=== PATIENT | female | born 1960 | race Caucasian/White ===

== ENCOUNTER → 2016-07-24 | Outpatient (CLI) | payer MEDICARE ==
[~2016-07-24] MED LIST: ALPR1T; ALPR1TAB2 PO; APIX5TAB PO; ASCO500C15 PO; ATEN50TA PO; ATN50T; CEPH-507 PO; CEPH500T PO; CHLO25TA22 PO; CHOL500049 PO; CIPR-225 PO; CYAN50006 SL; DILT120C53 PO; DILT240C86 PO; DOCU100C37 PO; FOLI0.4T2 PO; FURO-124 PO; GLIM4TAB PO; GLMP2T; HCT25T; MAGN400T29 PO; METF1000 PO; MTF500T; NF-CYM60C; NITR-65 PO; NITR-68 PO; OXYB10TA PO; POTA10TA10 PO; TRAM-42 PO; TRIM100T7 PO
--- OUTSIDE RECORDS SUMMARY | 2016-07-24 07:57 | XMS REPORT | Continuity of Care Document ---
Author Author [facility] Organization [facility] Address Unknown Phone Unavailable Care Team Providers Care Benefit Authorizer Name Role Phone VERONICA ROQUE MD PCP Insurance Providers Payer Name Policy Number Subscriber Name Relationship [employer] [id number] Giselle Khan 16 Self / Same As Patient Advance Directives Directive Response Recorded Date/Time Advance Directives No 05/15/16 11:49pm Health Care Power of Director Of Video Analytics No 05/15/16 11:49pm Organ Donor No 05/15/16 11:49pm Resuscitation Status Full Code 05/15/16 11:49pm Chief Complaint and Reason for Visit Chief Complaint General Problems/Pain Reason for Visit Urinary tract infection Renal insufficiency Problems Active Problems Medical Problem Onset Date Status Acute gout Unknown Acute Atrial fibrillation Unknown Acute Dehydration Unknown Acute Peripheral neuropathy Unknown Acute Renal insufficiency Unknown Acute Severe sepsis Unknown Acute Urinary tract infection Unknown Acute Medications Current Home Medications Medication Dose Units Route Directions Days/Qty Instructions Start Date Alprazolam 1 Mg 1 Mg Oral Three Times A Day 02/22/16 Cholecalciferol (Vitamin D3) 50,000 Unit 50,000 Unit Oral Every Wednesday02/22/16 Atenolol 50 Mg 50 Mg Oral Twice A Day 02/22/16 Apixaban 5 Mg 5 Mg Oral Twice A Day 02/22/16 Folic Acid 0.4 Mg 0.4 Mg Oral Bedtime 02/22/16 Glimepiride 4 Mg 4 Mg Oral Daily 02/22/16 Cyanocobalamin (Vitamin B-12) 5,000 Mcg/1 Ml 0.33 Ml Sublingual Daily 02/24/16 Ciprofloxacin Hcl 500 Mg 500 Mg Oral Twice A Day 14 05/09/16 Tramadol Hcl 50 Mg 50 Mg Oral Every 8HRS as needed for Pain 12 Diltiazem Hcl 240 Mg 240 Mg Oral Daily 05/16/16 Furosemide 40 Mg 40 Mg Oral Every Other Day 05/16/16 Magnesium Oxide 400 Mg 400 Mg Oral Daily 05/16/16 Potassium Chloride 10 Meq 10 Meq Oral Every Other Day 05/16/16 Nitrofurantoin Monohyd/M-Cryst 100 Mg 1 Tab Oral Twice A Day for Uti 20 05/16/16 Past Home Medications Medication Directions Ordered Status Glimepiride 2 Mg Tab, 05/16/08 Discontinued Metformin Hcl 500 Mg Tab, 05/16/08 Discontinued Duloxetine Hcl 60 Mg Capsule, 05/16/08 Discontinued Alprazolam 1 Mg Tablet, 05/16/08 Discontinued Atenolol 50 Mg Tab, 05/16/08 Discontinued Hydrochlorothiazide 25 Mg Tab, 05/16/08 Discontinued Chlorthalidone 25 Mg Tablet, 25 Mg Oral Daily 02/22/16 Discontinued Diltiazem Hcl 120 Mg Cap.er.24h, 120 Mg Oral Daily 02/22/16 Discontinued Metformin Hcl 1,000 Mg Tablet, 1000 Mg Oral Twice A Day 02/22/16 Discontinued Cephalexin 500 Mg Capsule, 500 Mg Oral Three Times A Day 02/25/16 Discontinued Social History Social History Problem Response Recorded Date/Time Alcohol Use Denies Use 05/15/2016 11:49pm Recreational Drug Use No 05/15/2016 11:49pm Recent Foreign Travel No 05/15/2016 11:49pm Recent Infectious Disease Exposure No 05/15/2016 11:49pm Sexually Transmitted Disease No 05/15/2016 11:49pm HIV/AIDS No 05/15/2016 11:49pm Smoking Status Never a Smoker 05/15/2016 11:49pm Recent Hopitalizations No 05/15/2016 11:49pm Sexually Transmitted Disease No 05/15/2016 11:49pm Hx Sexually Transmitted Disorders No 05/16/2008 8:46am Query Response Start Date Stop Date Smoking Status Never a Smoker Hospital Discharge Instructions No hospital discharge instructions. Plan of Care Discharge Date 05/16/16 1:58am Disposition 01 HOME, SELF-CARE Condition at Discharge Stable Instructions/Education Provided Urinary Tract Infection in Women (ED) Prescriptions See Medication Section Referrals VERONICA ROQUE MD - Primary Care Physician Additional Instructions/Education All discharge instructions reviewed with patient and/or family. Voiced understanding. CHECK WITH DR. ROQUE'S OFFICE ON 05/18/16 FOR RESULTS OF YOUR URINE CULTURE FROM [facility] TO MAKE SURE YOU ARE ON THE BEST ANTIBIOTIC. PUSH FLUIDS THRU THE WEEKEND. YOU'RE A LITTLE ON THE DRY SIDE. Functional Status No functional status results. Allergies, Adverse Reactions, Alerts Allergen Type Severity Reaction Status Last Updated Iodinated Contrast Media - IV Dye Allergy Unknown Active 05/16/16 NSAIDS (Non-Steroidal Anti-Inflammatory Drug) ([id number]) Allergy Unknown Active 05/16/16 sulfamethoxazole ([id number]) Allergy Unknown Active 05/16/16 Trimethoprim Allergy Unknown Active 05/16/16 Immunizations No immunization records. Vital Signs Acute Vital Signs Vital Response Date/Time Temperature (Fahrenheit) 98.0 degrees F (97.6 - 99.5) 05/16/2016 1:58am Temperature (Calculated Celsius) 36.69832 degrees C (36.4 - 37.5) 05/16/2016 1:58am Temperature Source Temporal 05/16/2016 1:58am Pulse Rate (adult) 64 bpm (60 - 90) 05/16/2016 1:58am Respiratory Rate 18 bpm (12 - 24) 05/16/2016 1:58am O2 Sat by Pulse Oximetry 98 % (88 - 100) 05/16/2016 1:58am Blood Pressure 138/87 mm Hg 05/16/2016 1:58am Blood Pressure Mean 103 mm Hg 05/15/2016 11:49pm Pain Numeric Pain Scale 7 05/15/2016 11:49pm Height (Feet) 5 feet 05/15/2016 11:49pm Height (Inches) 7 inches 05/15/2016 11:49pm Height (Calculated Centimeters) 170.174388 cm 05/15/2016 11:49pm Weight (Pounds) 304 pounds 05/15/2016 11:49pm Weight (Calculated Kilograms) 137.628084 kilograms 05/15/2016 11:49pm Capillary Refill Capillary Refill Less Than 3 Seconds 05/15/2016 11:49pm Height 5 ft 7 in Weight 304 lb Body Mass Index 47.6 kg/m^2 Results Laboratory Results Test Name Result Units Flags Reference Collection Date/Time Result Date/ Time Comments White Blood Count 11.2 10^3/uL H 4.3-11.0 05/09/2016 2:23pm 05/09/2016 2: 34pm Red Blood Count 4.62 10^6/uL 4.35-5.85 05/09/2016 2:23pm 05/09/2016 2: 34pm Hemoglobin 13.6 G/DL 11.5-16.0 05/09/2016 2:23pm 05/09/2016 2:34pm Hematocrit 41 % 35-52 05/09/2016 2:pm 05/09/2016 2:34pm Mean Corpuscular Volume 88 FL 80-99 05/09/2016 2:pm 05/09/2016 2: 34pm Mean Corpuscular Hemoglobin 29 PG 25-34 05/09/2016 2:23pm 05/09/2016 2: 34pm Mean Corpuscular Hemoglobin Concent 34 G/DL 32-36 05/09/2016 2:23pm 2:34pm Red Cell Distribution Width 13.4 % 10.0-14.5 05/09/2016 2:23pm 2015 2:34pm Platelet Count 361 10^3/uL 130-400 05/09/2016 2:pm 05/09/2016 2:34pm Mean Platelet Volume 9.3 FL 7.4-10.4 05/09/2016 2:23pm 05/09/2016 2: 34pm Neutrophils (%) (Auto) 74 % 42-75 05/09/2016 2:05/09/2016 2:34pm Lymphocytes (%) (Auto) 16 % 12-44 05/09/2016 2:05/09/2016 2:34pm Monocytes (%) (Auto) 7 % 0-12 05/09/2016 2:pm 05/09/2016 2:34pm Eosinophils (%) (Auto) 2 % 0-10 05/09/2016 2:pm 05/09/2016 2:34pm Basophils (%) (Auto) 0 % 0-10 05/09/2016 2:pm 05/09/2016 2:34pm Neutrophils # (Auto) 8.3 X 10^3 H 1.8-7.8 05/09/2016 2:23pm 05/09/2016 2: 34pm Lymphocytes # (Auto) 1.8 X 10^3 1.0-4.0 05/09/2016 2:23pm 05/09/2016 2: 34pm Monocytes # (Auto) 0.8 X 10^3 0.0-1.0 05/09/2016 2:23pm 05/09/2016 2: 34pm Eosinophils # (Auto) 0.3 10^3/uL 0.0-0.3 05/09/2016 2:23pm 05/09/2016 2 :34pm Basophils # (Auto) 0.0 10^3/uL 0.0-0.1 05/09/2016 2:23pm 05/09/2016 2: 34pm Urine Color YELLOW 05/09/2016 1:57pm 05/09/2016 2:18pm Urine Clarity SLIGHTLY CLOUDY 05/09/2016 1:57pm 05/09/2016 2:18pm Urine pH 5 5-9 05/09/2016 1:57pm 05/09/2016 2:18pm Urine Specific [place] 1.025 * 1.016-1.022 05/09/2016 1:57pm 2015 2:18pm Urine Protein 3+ * NEGATIVE 05/09/2016 1:57pm 05/09/2016 2:18pm Urine Glucose (UA) NEGATIVE NEGATIVE 05/09/2016 1:57pm 05/09/2016 2: 18pm Urine RBC (Auto) 5+ * NEGATIVE 05/09/2016 1:57pm 05/09/2016 2:18pm Urine Ketones 1+ * NEGATIVE 05/09/2016 1:57pm 05/09/2016 2:18pm Urine Nitrite NEGATIVE NEGATIVE 05/09/2016 1:57pm 05/09/2016 2:18pm Urine Bilirubin 1+ * NEGATIVE 05/09/2016 1:57pm 05/09/2016 2:18pm CONFIRMATORY ICTOTEST NEGATIVE Urine Urobilinogen 1 MG/DL NORMAL 05/09/2016 1:57pm 05/09/2016 2:18pm Urine Leukocyte Esterase 3+ * NEGATIVE 05/09/2016 1:57pm 05/09/2016 2: 18pm Urine RBC 50-100 /HPF * 05/09/2016 1:57pm 05/09/2016 2:18pm Urine WBC 50-100 /HPF * 05/09/2016 1:57pm 05/09/2016 2:18pm Urine Bacteria LARGE /HPF * 05/09/2016 1:57pm 05/09/2016 2:18pm Urine Squamous Epithelial Cells 25-50 /HPF * 05/09/2016 1:57pm 2015 2:18pm Urine Crystals NONE /LPF 05/09/2016 1:57pm 05/09/2016 2:18pm Urine Casts NONE /LPF 05/09/2016 1:57pm 05/09/2016 2:18pm Urine Mucus NEGATIVE /LPF 05/09/2016 1:57pm 05/09/2016 2:18pm Urine Culture Indicated YES 05/09/2016 1:57pm 05/09/2016 2:18pm Sodium Level 140 MMOL/L 135-145 05/09/2016 2:23pm 05/09/2016 2:58pm Potassium Level 4.4 MMOL/L 3.6-5.0 05/09/2016 2:23pm 05/09/2016 2:58pm Chloride Level 102 MMOL/L 98-107 05/09/2016 2:23pm 05/09/2016 2:58pm Carbon Dioxide Level 25 MMOL/L 21-32 05/09/2016 2:23pm 05/09/2016 2: 58pm Anion Gap 13 MMOL/L 5-14 05/09/2016 2:23pm 05/09/2016 2:58pm Blood Urea Nitrogen 24 MG/DL H 7-18 05/09/2016 2:23pm 05/09/2016 2:58pm Creatinine 1.23 MG/DL 0.60-1.30 05/09/2016 2:23pm 05/09/2016 2:58pm BUN/Creatinine Ratio 20 05/09/2016 2:23pm 05/09/2016 2:58pm Estimat Glomerular Filtration Rate 45 05/09/2016 2:23pm 05/09/2016 2:58pm GFR INTERPRETIVE DATA UNITS FOR ESTIMATED GFR (eGFR): mL/min/1.73 M2 REFERENCE RANGE FOR ESTIMATED GFR (eGFR) eGFR NORMAL eGFR >60 MODERATELY DECREASED eGFR 30-59 SEVERLY DECREASED eGFR 15-29 KIDNEY FAILURE <15 (OR DIALYSIS) Glucose Level 161 MG/DL H 70-105 05/09/2016 2:23pm 05/09/2016 2:58pm Calcium Level 9.9 MG/DL 8.5-10.1 05/09/2016 2:23pm 05/09/2016 2:58pm Total Bilirubin 0.7 MG/DL 0.1-1.0 05/09/2016 2:23pm 05/09/2016 2:58pm Alkaline Phosphatase 67 U/L 40-136 05/09/2016 2:23pm 05/09/2016 2:58pm Aspartate Amino Transf (AST/SGOT) 12 U/L 5-34 05/09/2016 2:23pm 2015 2:58pm Alanine Aminotransferase (ALT/SGPT) 7 U/L 0-55 05/09/2016 2:23pm 2015 2:58pm Total Protein 7.4 G/DL 6.4-8.2 05/09/2016 2:23pm 05/09/2016 2:58pm Albumin 3.4 G/DL 3.2-4.5 05/09/2016 2:23pm 05/09/2016 2:58pm Pending Laboratory Results Test Name Collection Date/Time Microbiology Results Procedure Source Result Collection Date/Time Result Date/Time Urine Culture Urine, Clean Catch NONENTEROCOCCUS (CHAINS COCCI) 05/09/2016 1 :57pm 05/11/2016 9:56am Procedures No known history of procedures. Encounters Encounter Location Arrival/Admit Date Discharge/Depart Date Attending Provider Registered Emergency Room [facility] 05/15/16 11:22pm LOUISE DURBIN DO Departed Emergency Room [facility] 05/09/16 12:40pm 3:45pm THELMA MAR Recent Diagnosis
[2016-07-24 08:19] LABS: MEAN PLATELET VOLUME 9.3 FL (7.4-10.4); RED BLOOD COUNT 4.77 10^6/uL (4.35-5.85); RED CELL DISTRIBUTION WIDTH 15.3 % (10.0-14.5); WHITE BLOOD COUNT 8.5 10^3/uL (4.3-11.0)
[2016-07-24 08:19] LABS: BILIRUBIN,URINE NEGATIVE (NEGATIVE); KETONES,URINE NEGATIVE (NEGATIVE); LEUKOCYTE ESTERASE ,URINE 3+ (NEGATIVE); NITRITE,URINE NEGATIVE (NEGATIVE); PH,URINE 6.5 (5-9); PROTEIN,URINE 1+ (NEGATIVE); UROBILINOGEN,URINE NORMAL (NORMAL)
[2016-07-24 08:30] LABS: SQUAMOUS EPITHELIAL CELL,UR 25-50 /HPF; WBC,URINE 50-100 /HPF
[2016-07-24 08:39] LABS: ALBUMIN 3.9 G/DL (3.2-4.5); CALCIUM 9.6 MG/DL (8.5-10.1); CREATININE SERUM 1.13 MG/DL (0.60-1.30); PHOSPHORUS 4.3 MG/DL (2.3-4.7); URIC ACID 8.8 MG/DL (2.6-7.2)
[2016-07-24 08:41] LABS: PROTEIN/CREATININE RATIO 0.18
[2016-07-26 13:34] LABS: CALCIUM PARA THYROID HORMONE 9.5 mg/dL (8.5-10.5)
== END ==
LOC: LAB 07:52
PROVIDERS: ATTEND Nurse Practitioner
DX: E78.5 Hyperlipidemia, unspecified (principal); I13.10 Hypertensive heart and chronic kidney disease without heart failure, with stage 1 through stage 4 chronic kidney disease, or unspecified chronic kidney disease; E11.22 Type 2 diabetes mellitus with diabetic chronic kidney disease; N18.3 Chronic kidney disease, stage 3 (moderate); R80.9 Proteinuria, unspecified; E87.6 Hypokalemia; E55.9 Vitamin D deficiency, unspecified; I48.0 Paroxysmal atrial fibrillation; E88.09 Other disorders of plasma-protein metabolism, not elsewhere classified; E66.9 Obesity, unspecified; E83.42 Hypomagnesemia
CPT/HCPCS: 36415; 80061; 80069; 81000; 82306; 82570; 83036; 83735; 83970; 84156; 84550; 85027; 87088

== ENCOUNTER 2016-10-25 10:11 | Emergency (ER) | payer MEDICARE ==
[~2016-10-25] VITALS: Ht 175.3 cm; Wt 127.0 kg
[~2016-10-25 10:11] MED LIST changes: -CEPH500T PO; -TRIM100T7 PO
[2016-10-25] MEDS ORDERED: TRIM100T7 PO (10:22)
--- NOTE | 2016-10-25 10:36 | ED GU-Female ---
General Chief Complaint: -Female Stated Complaint: CRONIC UTI Nursing Triage Note: PT STATES SHE HAS BEEN HAVING HOT AND COLD FLASHES FOR THE PAST WEEK AND A HALF. STATES SHE HAS A CHRONIC UTI. STATES BURNING AND FREQUENCY WITH URINATION Nursing Sepsis Screen: Possible Sepsis Risk History of Present Illness Time seen by provider: 10:32 Initial Comments Patient presents with this symptoms of 1-2 days brown urine and burning like fire when she urinates. She had a UTI about a year ago that resulted in sepsis and stay in the ICU. She has pertinent history of atrial fibrillation on eliquis and renal stones she is followed by Dr. Mendoza and a chief power dispatcher and Ger Mcdermott. She remarks she has chronic kidney disease stage III. Allergies and Home Medications Allergies Coded Allergies: Iodinated Contrast Media - Oral and (Unverified Allergy, Unknown, 05/16/16 ) STUDENT FINANCIAL AID MANAGER DOES NOT WANT HER TAKING NSAIDS (Non-Steroidal Anti-Inflamma (Unverified Allergy, Unknown, 05/16/16 ) STUDENT FINANCIAL AID MANAGER DOES NOT WANT HER TAKING sulfamethoxazole (Unverified Allergy, Unknown, 05/16/16) STUDENT FINANCIAL AID MANAGER DOES NOT WANT HER TAKING trimethoprim (Unverified Allergy, Unknown, 05/16/16) STUDENT FINANCIAL AID MANAGER DOES NOT WANT HER TAKING Home Medications Alprazolam 1 Mg Tablet, 1 MG PO TID, (Reported) Apixaban 5 Mg Tablet, 5 MG PO BID, (Reported) Ascorbic Acid 500 Mg Capsule.er, 500 MG PO DAILY, (Reported) Atenolol 50 Mg Tablet, 50 MG PO BID, (Reported) Cephalexin 500 Mg Tablet, 500 MG PO BID for 7 Days, #14 Ref 0 Prescribed by: REESE KIM on 10/25/16 1246 Cholecalciferol (Vitamin D3) 50,000 Unit Capsule, 50,000 UNIT PO Heard, (Reported) Cyanocobalamin (Vitamin B-12) 5,000 Mcg/1 Ml Drops, 0.33 ML SL DAILY, (Reported) Diltiazem HCl 240 Mg Cap.er.24h, 240 MG PO DAILY, (Reported) Docusate Sodium 100 Mg Capsule, 100 MG PO DAILY, (Reported) Folic Acid 0.4 Mg Tablet, 0.4 MG PO HS, (Reported) Furosemide 40 Mg Tablet, 40 MG PO every other day, (Reported) Glimepiride 4 Mg Tablet, 4 MG PO DAILY, (Reported) Glimepiride 4 Mg Tablet, 4 MG PO DAILY, (Reported) Magnesium Oxide 400 Mg Tablet, 400 MG PO DAILY, (Reported) Nitrofurantoin Monohyd/M-Cryst 100 Mg Capsule, 1 TAB PO BID, #20 Ref 0 Prescribed by: LOUISE DURBIN on 05/16/16 0149 Oxybutynin Chloride 10 Mg Tab.er.24, 10 MG PO DAILY, (Reported) Potassium Chloride 10 Meq Tablet.er, 10 MEQ PO every other day, (Reported) Tramadol HCl 50 Mg Tablet, 50 MG PO Q8H PRN for PAIN, #12 Prescribed by: THELMA MAR on 05/09/16 1535 Trimethoprim 100 Mg Tablet, 100 MG PO HS, (Reported) Constitutional: No chills, No diaphoresis, No fever, malaise EENTM: No ear pain, No eye pain, No nose pain Respiratory: No cough, No dyspnea on exertion, No short of breath, No wheezing Cardiovascular: No chest pain, No edema Gastrointestinal: No abdominal pain, No constipation, No diarrhea Genitourinary: burning, denies discharge, dysuria, frequency, denies flank pain , denies hematuria Musculoskeletal: No joint pain, No joint swelling Skin: No pruritus, No rash Psychiatric/Neurological: Denies Headache, Denies Numbness, Other (peripheral neuropathy) Past Frnyopq-Pvjstk-Wkvfub Hx Patient Social History Alcohol Use: Denies Use Recreational Drug Use: No Smoking Status: Former Smoker Recent Foreign Travel: No Contact w/Someone Who Travel: No Recent Infectious Disease Expo: No Recent Hopitalizations: No Immunizations Up To Date Tetanus Booster (TDap): More than 5yrs PED Vaccines UTD: No Seasonal Allergies Seasonal Allergies: No Surgeries HX Surgeries: Yes (RIGHT TOTAL KNEE REPLACEMENT 2009; RIGHT FOOT SURGERY 2009) Surgeries: Section, Joint Replacement, Orthopedic Respiratory Hx Respiratory Disorders: No Cardiovascular Hx Cardiac Disorders: Yes Cardiac Disorders: Atrial Fibrillation, Chronic Edema/Swelling, High Cholesterol, Hypertension Neurological Hx Neurological Disorders: Yes Neurological Disorders: Neuropathy Reproductive System Hx Reproductive Disorders: Yes Sexually Transmitted Disease: No HIV/AIDS: No Female Reproductive Disorders: Denies Genitourinary Hx Genitourinary Disorders: Yes (KIDNEY STONES--NO INTERVENTION) Genitourinary Disorders: Kidney Stones, Renal Failure, UTI-Chronic Gastrointestinal Hx Gastrointestinal Disorders: Yes (SPASTIC COLON) Musculoskeletal Hx Musculoskeletal Disorders: Yes (CHRONIC KNEE AND FOOT PAIN ) Musculoskeletal Disorders: Arthritis, Gout Endocrine Hx Endocrine Disorders: Yes (OBESITY) Endocrine Disorders: Diabetes, Non-Insulin dep HEENT HX ENT Disorders: No Loss of Vision: Denies Hearing Impairment: Denies Cancer Hx Cancer: No Psychosocial Hx Psychiatric Problems: Yes Behavioral Health Disorders: Anxiety Integumentary HX Skin/Integumentary Disorder: No Blood Transfusions Hx Blood Disorders: No Adverse Reaction to a Blood Tr: No Family Medical History Family Medial History: Abdominal aortic aneurysm 19 FATHER, , Onset:60 years & older Diabetes mellitus 19 FATHER, , Onset:Unknown FH: breast cancer 19 MOTHER, Onset:40's - 50 FH: kidney cancer 19 MOTHER, Onset:Unknown FH: uterine cancer 19 MOTHER, Onset:Unknown Myocardial infarction 19 FATHER, , Onset:50's - 60 Physical Exam Vital Signs Vital Sign - Last 12Hours 10/25/16 10:23 Temp 99.0 Pulse 107 Resp 20 B/P (MAP) 136/90 Capillary Refill : Less Than 3 Seconds General Appearance: WD/WN, no apparent distress, obese HEENT: PERRL/EOMI, pharynx normal Neck: non-tender, normal inspection Cardiovascular: no JVD, other (trace ankle edema; Irreg irreg) Respiratory: chest non-tender, lungs clear Gastrointestinal: normal bowel sounds, non tender Back: normal inspection, no CVA tenderness Extremities: no calf tenderness, normal capillary refill Neurologic/Psychiatric: alert, oriented x 3 Skin: normal color, warm/dry Lymphatic: no adenopathy Progress/Results/Core Measures Results/Orders Lab Results Laboratory Tests Test 10/25/16 10:39 10/25/16 10:57 Range/Units White Blood Count 8.3 4.3-11.0 10^3/uL Red Blood Count 4.50 4.35-5.85 10^6/uL Hemoglobin 13.7 11.5-16.0 G/DL Hematocrit 39 35-52 % Mean Corpuscular Volume 87 80-99 FL Mean Corpuscular Hemoglobin 30 25-34 PG Mean Corpuscular Hemoglobin Concent 35 32-36 G/DL Red Cell Distribution Width 14.6 H 10.0-14.5 % Platelet Count 208 130-400 10^3/uL Mean Platelet Volume 9.6 7.4-10.4 FL Neutrophils (%) (Auto) 73 42-75 % Lymphocytes (%) (Auto) 16 12-44 % Monocytes (%) (Auto) 9 0-12 % Eosinophils (%) (Auto) 1 0-10 % Basophils (%) (Auto) 0 0-10 % Neutrophils # (Auto) 6.1 1.8-7.8 X 10^3 Lymphocytes # (Auto) 1.4 1.0-4.0 X 10^3 Monocytes # (Auto) 0.8 0.0-1.0 X 10^3 Eosinophils # (Auto) 0.1 0.0-0.3 10^3/uL Basophils # (Auto) 0.0 0.0-0.1 10^3/uL Prothrombin Time 15.8 H 12.2-14.7 SEC INR Comment 1.3 0.8-1.4 Sodium Level 137 135-145 MMOL/L Potassium Level 4.4 3.6-5.0 MMOL/L Chloride Level 105 98-107 MMOL/L Carbon Dioxide Level 19 L 21-32 MMOL/L Anion Gap 13 5-14 MMOL/L Blood Urea Nitrogen 20 H 7-18 MG/DL Creatinine 1.35 H 0.60-1.30 MG/DL Estimat Glomerular Filtration Rate 40 BUN/Creatinine Ratio 15 Glucose Level 145 H 70-105 MG/DL Calcium Level 9.1 8.5-10.1 MG/DL Total Bilirubin 1.0 0.1-1.0 MG/DL Aspartate Amino Transf (AST/SGOT) 21 5-34 U/L Alanine Aminotransferase (ALT/SGPT) 13 0-55 U/L Alkaline Phosphatase 68 40-136 U/L Total Protein 7.4 6.4-8.2 G/DL Albumin 3.5 3.2-4.5 G/DL Urine Color YELLOW Urine Clarity VERY CLOUDY H Urine pH 6 5-9 Urine Specific [place] 1.010 L 1.016-1.022 Urine Protein 3+ H NEGATIVE Urine Glucose (UA) NEGATIVE NEGATIVE Urine Ketones NEGATIVE NEGATIVE Urine Nitrite POSITIVE H NEGATIVE Urine Bilirubin NEGATIVE NEGATIVE Urine Urobilinogen NORMAL NORMAL MG/DL Urine Leukocyte Esterase 3+ H NEGATIVE Urine RBC (Auto) 5+ H NEGATIVE Urine RBC NONE /HPF Urine WBC TNTC H /HPF Urine Crystals NONE /LPF Urine Bacteria LARGE H /HPF Urine Casts NONE /LPF Urine Mucus SMALL H /LPF Urine Culture Indicated YES My Orders Orders - JUDYREESE Emma Cbc With Automated Diff (10/25/16 10:36) Comprehensive Metabolic Panel (10/25/16 10:36) Protime With Inr (10/25/16 10:36) Ua Culture If Indicated (10/25/16 10:36) Saline Lock/Iv-Start (10/25/16 10:36) Urine Culture (10/25/16 10:57) Ct Abd/Pelvis Wo(Kidney Stone) (10/25/16 12:04) Ceftriaxone Injection (Rocephin Injectio (10/25/16 12:15) Medications Given in ED Current Medications Medications Dose Ordered Sig/Raoul Route Start Time Stop Time Status Last Admin Dose Admin Ceftriaxone Sodium 2000 mg/ Sodium Chloride 50 ml @ 100 mls/hr ONCE ONCE IV 10/25/16 12:15 10/25/16 12:45 DC 10/25/16 12:41 100 MLS/HR Vital Signs/I&O Vital Sign - Last 12Hours 10/25/16 10:23 Temp 99.0 Pulse 107 Resp 20 B/P (MAP) 136/90 Blood Pressure Mean: 105 Progress Note : Time: 11:07 Progress Note Clinically the patient is in no acute distress and appears to have a urinary tract infection by history. She does have a history of stones and her UA has RBCs so we will do a scan and treat her appropriately for stones. Patient states she has an allergy to Bactrim however she is on trimethoprim chronically to prevent UTIs. She has been on Macrobid in the past. Prior urine cultures were reviewed and all of them showed mixed lela and vaginal lela. No sensitivities to go off of. If this urine culture turned out the same way or the patient does not continue to improve in 2-3 days she should probably consider straight catheter. The patient says she has been on for quinolones in the past and tolerated them well but her chief power dispatcher told her she was not allowed to take for quinolones anymore. Will initiate Rocephin IM and probably outpatient Cephalexin for 7 days. Given the RBCs and perinephric fat this may need extended if the culture and sensitivity promotes Keflex as an agent. Diagnostic Imaging Diagonstic Imaging: CT Plain Films/CT/US/NM/MRI: abdomen Comments NAME: DANK MORAES MED REC#: [id number] PT STATUS: REG ER : 1960 PHYSICIAN: REESE KIM MD ADMIT DATE: 10/25/16/ER Draft Date of Exam:10/25/16 CT ABD/PELVIS WO(KIDNEY STONE) PROCEDURE: CT urinary tract, rule out kidney stone. TECHNIQUE: Multiple contiguous axial images were obtained through the abdomen and pelvis without the use of intravenous contrast. INDICATION: Hematuria. Right-sided flank pain. Comparison made to prior study from June 01, 2016. FINDINGS: The visualized lung bases appear clear. There are calcifications at the level of the mitral annulus. There is no pleural or pericardial effusion. The noncontrast appearance of liver is unremarkable. There are small stones or sludge in the gallbladder but no biliary dilatation. The spleen is unremarkable. There is a small unchanged calcification within the tail of the pancreas. Some mild thickening of the left adrenal gland which is stable. There are large stones demonstrated within both of the kidneys. When compared to the prior examination these appear unchanged. There is no evidence of a stone within the ureters. There is no hydronephrosis. There is no stone within the urinary bladder. Perinephric fat stranding is demonstrated. The small and large bowel appear normal in caliber without evidence of obstruction. Uncomplicated diverticulosis is present. The appendix appears normal. There is no abnormal bowel thickening. The urinary bladder, uterus and adnexa are unremarkable by CT. There is no free air, free fluid or evidence of abscess. No pathologically enlarged abdominal or pelvic lymph nodes are demonstrated. There are multilevel degenerative features demonstrated throughout the spine without evidence of an acute or suspicious osseous abnormality. IMPRESSION: 1. Unchanged large staghorn type calcifications and stones within the kidneys. There is no hydronephrosis or evidence of a stone within the ureters or urinary bladder. 2. Nonspecific perinephric fat stranding. Urinary tract infection cannot be excluded. 3. Cholelithiasis without biliary dilatation. 4. Uncomplicated diverticulosis. 5. 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 Dictated on workstation # [id number] Dict: 10/25/16 1239 Trans: 10/25/16 1245 [facility] [id number] Interpreted by: RASHAUN DENG MD Electronically signed by: Reviewed: Reviewed by Me Departure Impression Impression: Primary Impression: Urinary tract infection Qualified Codes: N30.01 - Acute cystitis with hematuria Disposition: HOME, SELF-CARE Condition: Stable Departure-Patient Inst. Referrals: VERONICA ATKINSON MD (PCP/Family) Primary Care Physician Patient Instructions: Urinary Tract Infection, Adult (DC) Add. Discharge Instructions: You've been diagnosed with urinary tract infection. You should take the antibiotics as prescribed twice daily by mouth. You have been given one dose of antibiotics IV today. You should follow-up with Dr. Pang or Dr. Atkinson within the next 2-3 days to follow-up on the results of the urine culture that was obtained in the ER today. If you are not getting better in 3-4 days or your symptoms are worsening or you have new symptoms he should return to the ER. All discharge instructions reviewed with patient and/or family. Voiced understanding. Scripts Cephalexin (Cephalexin) 500 Mg Tablet 500 MG PO BID for 7 Days, #14 TAB 0 Refills Prov: REESE KIM 10/25/16 Copy Copies To 1: VERONICA ATKINSON MD; FRANCI MENDOZA MD, TITUS J Oct 25, 2016 10:36
[2016-10-25 11:03] LABS: BASOPHILS % (AUTO) 0 % (0-10); EOSINOPHILS # (AUTO) 0.1 10^3/uL (0.0-0.3); EOSINOPHILS % (AUTO) 1 % (0-10); LYMPHOCYTES # (AUTO) 1.4 X 10^3 (1.0-4.0); LYMPHOCYTES % (AUTO) 16 % (12-44); MEAN CORPUSCULAR HEMOGLOBIN 30 PG (25-34); MEAN CORPUSCULAR HGB CONC 35 G/DL (32-36); MEAN CORPUSCULAR VOLUME 87 FL (80-99); MEAN PLATELET VOLUME 9.6 FL (7.4-10.4); MONOCYTES # (AUTO) 0.8 X 10^3 (0.0-1.0); MONOCYTES % (AUTO) 9 % (0-12); NEUTROPHILS # (AUTO) 6.1 X 10^3 (1.8-7.8); NEUTROPHILS % (AUTO) 73 % (42-75); PLATELET COUNT 208 10^3/uL (130-400); RED CELL DISTRIBUTION WIDTH 14.6 % (10.0-14.5); WHITE BLOOD COUNT 8.3 10^3/uL (4.3-11.0)
[2016-10-25 11:08] LABS: BILIRUBIN,URINE NEGATIVE (NEGATIVE); KETONES,URINE NEGATIVE (NEGATIVE); LEUKOCYTE ESTERASE ,URINE 3+ (NEGATIVE); NITRITE,URINE POSITIVE (NEGATIVE); PH,URINE 6 (5-9); PROTEIN,URINE 3+ (NEGATIVE); UROBILINOGEN,URINE NORMAL (NORMAL)
[2016-10-25 11:12] LABS: INR 1.3 (0.8-1.4); PROTHROMBIN TIME PATIENT 15.8 SEC (12.2-14.7)
[2016-10-25 11:22] LABS: ALBUMIN 3.5 G/DL (3.2-4.5); CALCIUM 9.1 MG/DL (8.5-10.1); CREATININE SERUM 1.35 MG/DL (0.60-1.30); POTASSIUM 4.4 MMOL/L (3.6-5.0); TOTAL PROTEIN 7.4 G/DL (6.4-8.2)
[2016-10-25 11:29] LABS: WBC,URINE TNTC /HPF
[2016-10-25] MEDS ORDERED: cefTRIAXone INJECTION 2,000 MG in NS (IVPB) 50 ML IV ONE (12:15)
[2016-10-25] MEDS ORDERED: CEPH500T PO ×2 (12:22→12:46)
--- NOTE | 2016-10-25 12:46 | Diagnostic Imaging Report ---
PROCEDURE: CT urinary tract, rule out kidney stone. TECHNIQUE: Multiple contiguous axial images were obtained through the abdomen and pelvis without the use of intravenous contrast. INDICATION: Hematuria. Right-sided flank pain. Comparison made to prior study from June 01, 2016. FINDINGS: The visualized lung bases appear clear. There are calcifications at the level of the mitral annulus. There is no pleural or pericardial effusion. The noncontrast appearance of liver is unremarkable. There are small stones or sludge in the gallbladder but no biliary dilatation. The spleen is unremarkable. There is a small unchanged calcification within the tail of the pancreas. Some mild thickening of the left adrenal gland which is stable. There are large stones demonstrated within both of the kidneys. When compared to the prior examination these appear unchanged. There is no evidence of a stone within the ureters. There is no hydronephrosis. There is no stone within the urinary bladder. Perinephric fat stranding is demonstrated. The small and large bowel appear normal in caliber without evidence of obstruction. Uncomplicated diverticulosis is present. The appendix appears normal. There is no abnormal bowel thickening. The urinary bladder, uterus and adnexa are unremarkable by CT. There is no free air, free fluid or evidence of abscess. No pathologically enlarged abdominal or pelvic lymph nodes are demonstrated. There are multilevel degenerative features demonstrated throughout the spine without evidence of an acute or suspicious osseous abnormality. IMPRESSION: 1. Unchanged large staghorn type calcifications and stones within the kidneys. There is no hydronephrosis or evidence of a stone within the ureters or urinary bladder. 2. Nonspecific perinephric fat stranding. Urinary tract infection cannot be excluded. 3. Cholelithiasis without biliary dilatation. 4. Uncomplicated diverticulosis. 5. 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 Dictated by: Dictated on workstation # [id number]
[2016-10-25 13:27] VITALS: BP 135/78
--- OUTSIDE RECORDS SUMMARY | 2016-11-29 05:53 | XMS REPORT | Continuity of Care Document ---
Author Author [facility] Organization [facility] Address Unknown Phone Unavailable Allergies Active Description Code Type Severity Reaction Onset Reported/Identified Relationship to Patient Clinical Status Yes No Known Drug Allergies [id number] Drug Allergy Unknown N/ A 05/22/2008 Yes Iodinated Contrast Media - IV Dye [id number] Drug Allergy Unknown N/A 05/16/2016 Yes Iodinated Contrast Media - Oral and [id number] Drug Allergy Unknown N/A 05/16/2016 Yes NSAIDS (Non-Steroidal Anti-Inflamma [id number] Drug Allergy Unknown N/A 05/16/2016 Yes sulfamethoxazole [id number] Drug Allergy Unknown N/A 05/16/2016 Yes trimethoprim [id number] Drug Allergy Unknown N/A 05/16/2016 Medications Problems Date Dx Coded Attending Type Code Diagnosis Diagnosed By 01/21/2016 Ot 786.2 COUGH 01/21/2016 Ot 786.05 SHORTNESS OF BREATH 01/21/2016 Ot 786.2 COUGH 01/21/2016 Ot 790.29 OTHER ABNORMAL GLUCOSE 01/21/2016 Ot 793.81 MAMMOGRAPHIC MICROCLACIFICATION 01/21/2016 Ot V16.3 FAMILY HX-BREAST MALIG 01/21/2016 Ot V76.12 OTH SCREEN MAMMO-MALIGN NEOPLASM OF JORDIN 01/21/2016 Ot 793.81 MAMMOGRAPHIC MICROCLACIFICATION 01/21/2016 TOPHER OSULLIVAN Ot 793.81 MAMMOGRAPHIC MICROCLACIFICATION 01/21/2016 TOPHER OSULLIVAN Ot V76.12 OTH SCREEN MAMMO-MALIGN NEOPLASM OF JORDIN 01/21/2016 NICOL KAY, CARIE Mugruia Ot 793.81 MAMMOGRAPHIC MICROCLACIFICATION 01/22/2016 JUDE KAY, VERONICA Barrow Ot Z12.31 ENCNTR SCREEN MAMMOGRAM FOR MALIGNANT NE 01/24/2016 VERONICA ROQUE MD Ot Z12.31 ENCNTR SCREEN MAMMOGRAM FOR MALIGNANT NE 02/12/2016 ARIAS GONZALESP Ot R00.0 TACHYCARDIA, UNSPECIFIED 02/12/2016 ARIAS GONZALES RN FLIGHT Ot R10.11 RIGHT UPPER QUADRANT PAIN 02/25/2016 VERONICA ROQUE MD, Ot A41.9 SEPSIS, UNSPECIFIED ORGANISM 02/25/2016 VERONICA ROQUE MD Ot E11.42 TYPE 2 DIABETES MELLITUS WITH DIABETIC P 02/25/2016 VERONICA ROQUE MD Ot E66.01 MORBID (SEVERE) OBESITY DUE TO EXCESS CA 02/25/2016 VERONICA ROQUE MD Ot E78.0 PURE HYPERCHOLESTEROLEMIA 02/25/2016 VERONICA ROQUE MD Ot E86.0 DEHYDRATION 02/25/2016 VERONICA ROQUE MD Ot F41.9 ANXIETY DISORDER, UNSPECIFIED 02/25/2016 VERONICA ROQUE MD Ot I10 ESSENTIAL (PRIMARY) HYPERTENSION 02/25/2016 VERONICA ROQUE MD Ot I48.91 UNSPECIFIED ATRIAL FIBRILLATION 02/25/2016 VERONICA ROQUE MD Ot K58.9 IRRITABLE BOWEL SYNDROME WITHOUT DIARRHE 02/25/2016 VERONICA ROQUE MD Ot M10.9 GOUT, UNSPECIFIED 02/25/2016 VERONICA ROQUE MD Ot N17.9 ACUTE KIDNEY FAILURE, UNSPECIFIED 02/25/2016 VERONICA ROQUE MD Ot N39.0 URINARY TRACT INFECTION, SITE NOT SPECIF 02/25/2016 VERONICA ROQUE MD Ot R65.20 SEVERE SEPSIS WITHOUT SEPTIC SHOCK 02/25/2016 VERONICA ROQUE MD Ot Z68.43 BODY MASS INDEX (BMI) 50-59.9 , ADULT 02/25/2016 VERONICA ROQUE MD Ot Z79.01 FAMILY NURSE (CURRENT) USE OF ANTICOAGULANT 02/25/2016 VERONICA ROQUE MD Ot Z87.891 PERSONAL HISTORY OF NICOTINE DEPENDENCE 02/25/2016 VERONICA ROQUE MD, Ot A41.9 SEPSIS, UNSPECIFIED ORGANISM 02/25/2016 VERONICA ROQUE MD, Ot E11.42 TYPE 2 DIABETES MELLITUS WITH DIABETIC P 02/25/2016 VERONICA ROQUE MD, Ot E66.01 MORBID (SEVERE) OBESITY DUE TO EXCESS CA 02/25/2016 VERONICA ROQUE MD Ot E78.0 PURE HYPERCHOLESTEROLEMIA 02/25/2016 VERONICA ROQUE MD Ot E86.0 DEHYDRATION 02/25/2016 VERONICA ROQUE MD Ot F41.9 ANXIETY DISORDER, UNSPECIFIED 02/25/2016 VERONICA ROQUE MD Ot I10 ESSENTIAL (PRIMARY) HYPERTENSION 02/25/2016 VERONICA ROQUE MD Ot I48.91 UNSPECIFIED ATRIAL FIBRILLATION 02/25/2016 VERONICA ROQUE MD Ot K58.9 IRRITABLE BOWEL SYNDROME WITHOUT DIARRHE 02/25/2016 VERONICA ROQUE MD Ot M10.9 GOUT, UNSPECIFIED 02/25/2016 VERONICA ROQUE MD Ot N17.9 ACUTE KIDNEY FAILURE, UNSPECIFIED 02/25/2016 VERONICA ROQUE MD Ot N39.0 URINARY TRACT INFECTION, SITE NOT SPECIF 02/25/2016 VERONICA ROQUE MD Ot R65.20 SEVERE SEPSIS WITHOUT SEPTIC SHOCK 02/25/2016 VERONICA ROQUE MD Ot Z68.43 BODY MASS INDEX (BMI) 50-59.9 , ADULT 02/25/2016 VERONICA ROQUE MD Ot Z79.01 LONG-TERM (CURRENT) USE OF ANTICOAGULANT 02/25/2016 VERONICA ROQUE MD Ot Z87.891 PERSONAL HISTORY OF NICOTINE DEPENDENCE 03/06/2016 SHAHRAM CHRISTY MD, FACCP CCDS Ot I48.2 CHRONIC ATRIAL FIBRILLATION 03/06/2016 SHAHRAM CHRISTY MD, FACCP CCDS Ot R07.89 OTHER CHEST PAIN 03/10/2016 VERONICA ROQUE MD Ot Z12.31 ENCNTR SCREEN MAMMOGRAM FOR MALIGNANT NE 03/10/2016 ARIAS GONZALES RN FLIGHT Ot D72.829 ELEVATED WHITE BLOOD CELL COUNT, UNSPECI 03/10/2016 ARIAS GONZALES RN FLIGHT Ot R00.0 TACHYCARDIA, UNSPECIFIED 03/10/2016 ARIAS GONZALES RN FLIGHT Ot R10.11 RIGHT UPPER QUADRANT PAIN 03/11/2016 JAELYN KAY FACC, SHAHRAM FACP CCDS Ot E11.9 TYPE 2 DIABETES MELLITUS WITHOUT COMPLIC 03/11/2016 SHAHRAM CHRISTY MD, FACCP CCDS Ot E66.09 OTHER OBESITY DUE TO EXCESS CALORIES 03/11/2016 SHAHRAM CHRISTY MD, FACC FACP CCDS Ot I48.2 CHRONIC ATRIAL FIBRILLATION 03/11/2016 SHAHRAM CHRISTY MD, FACC FACP CCDS Ot M79.89 OTHER SPECIFIED SOFT TISSUE DISORDERS 03/11/2016 JAELYN KAY FACC, SHAHRAM FACP CCDS Ot R06.02 SHORTNESS OF BREATH 03/11/2016 JAELYN KAY FACC, SHAHRAM FACP CCDS Ot R07.89 OTHER CHEST PAIN 03/13/2016 Ot 786.2 03/13/2016 Ot 611.8 03/13/2016 Ot V16.3 03/13/2016 Ot V76.11 03/13/2016 Ot 611.8 03/13/2016 Ot V76.12 03/13/2016 Ot 733.99 03/13/2016 Ot V72.81 03/13/2016 Ot V72.83 03/13/2016 Ot V74.8 03/13/2016 Ot 250.00 03/13/2016 Ot 701.9 03/13/2016 Ot V72.83 03/13/2016 Ot V74.8 03/13/2016 Ot 611.72 03/13/2016 Ot V76.12 03/13/2016 Ot 611.72 03/13/2016 Ot 611.72 03/13/2016 Ot V16.3 03/13/2016 Ot V64.3 03/13/2016 Ot 611.72 LUMP OR MASS IN BREAST 03/13/2016 Ot 786.2 COUGH 03/13/2016 VERONICA ROQUE MD Ot Z12.31 ENCNTR SCREEN MAMMOGRAM FOR MALIGNANT NE 03/13/2016 JAELYN KAY FACC, SHAHRAM FACP CCDS Ot E11.9 TYPE 2 DIABETES MELLITUS WITHOUT COMPLIC 03/13/2016 JAELYN KAY FACC, SHAHRAM FACP CCDS Ot E66.09 OTHER OBESITY DUE TO EXCESS CALORIES 03/13/2016 JAELYN KAY FACC, SHAHRAM FACP CCDS Ot I48.2 CHRONIC ATRIAL FIBRILLATION 03/13/2016 JAELYN KAY FACC, SHAHRAM FACP CCDS Ot M79.89 OTHER SPECIFIED SOFT TISSUE DISORDERS 03/13/2016 JAELYN KAY FACC, SHAHRAM FACP CCDS Ot R06.02 SHORTNESS OF BREATH 03/13/2016 JAELYN KAY FACC, SHAHRAM FACP CCDS Ot R07.89 OTHER CHEST PAIN 03/13/2016 VERONICA ROQUE MD Ot Z12.31 ENCNTR SCREEN MAMMOGRAM FOR MALIGNANT NE 03/13/2016 VERONICA ROQUE MD Ot Z12.31 ENCNTR SCREEN MAMMOGRAM FOR MALIGNANT NE 03/13/2016 Ot 786.2 COUGH 03/13/2016 Ot 786.05 SHORTNESS OF BREATH 03/13/2016 Ot 786.2 COUGH 03/13/2016 Ot 790.29 OTHER ABNORMAL GLUCOSE 03/13/2016 Ot 793.81 MAMMOGRAPHIC MICROCLACIFICATION 03/13/2016 Ot V16.3 FAMILY HX-BREAST MALIG 03/13/2016 Ot V76.12 OTH SCREEN MAMMO-MALIGN NEOPLASM OF JORDIN 03/13/2016 Ot 793.81 MAMMOGRAPHIC MICROCLACIFICATION 03/13/2016 TOPHER OSULLIVAN RN FLIGHT Ot 793.81 MAMMOGRAPHIC MICROCLACIFICATION 03/13/2016 TOPHER OSULLIVAN RN FLIGHT Ot V76.12 OTH SCREEN MAMMO-MALIGN NEOPLASM OF JORDIN 03/13/2016 NICOL KAY, CARIE Murguia Ot 793.81 MAMMOGRAPHIC MICROCLACIFICATION 03/13/2016 VERONICA ROQUE MD Ot Z12.31 ENCNTR SCREEN MAMMOGRAM FOR MALIGNANT NE 03/13/2016 ARIAS GONZALES RN FLIGHT Ot D72.829 ELEVATED WHITE BLOOD CELL COUNT, UNSPECI 03/13/2016 ARIAS GONZALES RN FLIGHT Ot R00.0 TACHYCARDIA, UNSPECIFIED 03/13/2016 ARIAS GONZALES RN FLIGHT Ot R10.11 RIGHT UPPER QUADRANT PAIN 03/13/2016 JAELYN KAY FACC, SHAHRAM FACP CCDS Ot E11.9 TYPE 2 DIABETES MELLITUS WITHOUT COMPLIC 03/13/2016 JAELYN KAY FACC, SHAHRAM FACP CCDS Ot E66.09 OTHER OBESITY DUE TO EXCESS CALORIES 03/13/2016 JAELYN KAY FACC, SHAHRAM FACP CCDS Ot I48.2 CHRONIC ATRIAL FIBRILLATION 03/13/2016 JAELYN KAY FACC, SHAHRAM FACP CCDS Ot M79.89 OTHER SPECIFIED SOFT TISSUE DISORDERS 03/13/2016 JAELYN KAY FACC, SHAHRAM FACP CCDS Ot R06.02 SHORTNESS OF BREATH 03/13/2016 JAELYN KAY FACC, SHAHRAM FACP CCDS Ot R07.89 OTHER CHEST PAIN 03/13/2016 JAELYN KAY FACC, SHAHRAM FACP CCDS Ot E11.9 TYPE 2 DIABETES MELLITUS WITHOUT COMPLIC 03/13/2016 JAELYN KAY FACC, ALI FACP CCDS Ot E66.09 OTHER OBESITY DUE TO EXCESS CALORIES 03/13/2016 JAELYN KAY FACC, ALI FACP CCDS Ot I48.2 CHRONIC ATRIAL FIBRILLATION 03/13/2016 JAELYN KAY FACC, ALI FACP CCDS Ot M79.89 OTHER SPECIFIED SOFT TISSUE DISORDERS 03/13/2016 JAELYN KAY FACC, ALI FACP CCDS Ot R06.02 SHORTNESS OF BREATH 03/13/2016 JAELYN KAY FACC, ALI FACP CCDS Ot R07.89 OTHER CHEST PAIN 03/13/2016 JAELYN KAY FACC, ALI FACP CCDS Ot E11.9 TYPE 2 DIABETES MELLITUS WITHOUT COMPLIC 03/13/2016 JAELYN KAY FACC, ALI FACP CCDS Ot E66.09 OTHER OBESITY DUE TO EXCESS CALORIES 03/13/2016 JAELYN KAY FACC, ALI FACP CCDS Ot I48.2 CHRONIC ATRIAL FIBRILLATION 03/13/2016 JAELYN KAY FACC, ALI FACP CCDS Ot M79.89 OTHER SPECIFIED SOFT TISSUE DISORDERS 03/13/2016 JAELYN KAY FACC, ALI FACP CCDS Ot R06.02 SHORTNESS OF BREATH 03/13/2016 JAELYN KAY FACC, ALI FACP CCDS Ot R07.89 OTHER CHEST PAIN 03/18/2016 ARIAS GONZALES RN FLIGHT Ot R00.0 TACHYCARDIA, UNSPECIFIED 03/18/2016 ARIAS GONZALES RN FLIGHT Ot R10.11 RIGHT UPPER QUADRANT PAIN 03/18/2016 Ot 786.2 COUGH 03/18/2016 Ot 786.05 SHORTNESS OF BREATH 03/18/2016 Ot 786.2 COUGH 03/18/2016 Ot 790.29 OTHER ABNORMAL GLUCOSE 03/18/2016 Ot 793.81 MAMMOGRAPHIC MICROCLACIFICATION 03/18/2016 Ot V16.3 FAMILY HX-BREAST MALIG 03/18/2016 Ot V76.12 OTH SCREEN MAMMO-MALIGN NEOPLASM OF JORDIN 03/18/2016 Ot 793.81 MAMMOGRAPHIC MICROCLACIFICATION 03/18/2016 TOPHER OSULLIVAN RN FLIGHT Ot 793.81 MAMMOGRAPHIC MICROCLACIFICATION 03/18/2016 TOPHER OSULLIVAN RN FLIGHT Ot V76.12 OTH SCREEN MAMMO-MALIGN NEOPLASM OF JORDIN 03/18/2016 NICOL KAY, CARIE Murguia Ot 793.81 MAMMOGRAPHIC MICROCLACIFICATION 03/18/2016 JUDE KAY, VERONICA Barrow Ot Z12.31 ENCNTR SCREEN MAMMOGRAM FOR MALIGNANT NE 03/18/2016 ARIAS GONZALES RN FLIGHT Ot D72.829 ELEVATED WHITE BLOOD CELL COUNT, UNSPECI 03/18/2016 CHRISTIANNANCYKYMBERLY Murguia RN FLIGHT Ot R00.0 TACHYCARDIA, UNSPECIFIED 03/18/2016 CHRISTIAN ARIAS M RN FLIGHT Ot R10.11 RIGHT UPPER QUADRANT PAIN 03/18/2016 JAELYN KAY FACC, ALI FACP CCDS Ot E11.9 TYPE 2 DIABETES MELLITUS WITHOUT COMPLIC 03/18/2016 JAELYN KAY FACC, ALI FACP CCDS Ot E66.09 OTHER OBESITY DUE TO EXCESS CALORIES 03/18/2016 JAELYN KAY FACC, ALI FACP CCDS Ot I48.2 CHRONIC ATRIAL FIBRILLATION 03/18/2016 JAELYN KAY FACC, ALI FACP CCDS Ot M79.89 OTHER SPECIFIED SOFT TISSUE DISORDERS 03/18/2016 JAELYN KAY FACC, ALI FACP CCDS Ot R06.02 SHORTNESS OF BREATH 03/18/2016 JAELYN KAY FACC, ALI FACP CCDS Ot R07.89 OTHER CHEST PAIN 03/18/2016 JAELYN KAY FACC, ALI FACP CCDS Ot E11.9 TYPE 2 DIABETES MELLITUS WITHOUT COMPLIC 03/18/2016 JAELYN KAY FACC, ALI FACP CCDS Ot E66.09 OTHER OBESITY DUE TO EXCESS CALORIES 03/18/2016 JAELYN KAY FACC, ALI FACP CCDS Ot I48.2 CHRONIC ATRIAL FIBRILLATION 03/18/2016 JAELYN KAY FACC, ALI FACP CCDS Ot M79.89 OTHER SPECIFIED SOFT TISSUE DISORDERS 03/18/2016 JAELYN KAY FACC, ALI FACP CCDS Ot R06.02 SHORTNESS OF BREATH 03/18/2016 JAELYN KAY FACC, ALI FACP CCDS Ot R07.89 OTHER CHEST PAIN 03/18/2016 JAELYN KAY FACC, ALI FACP CCDS Ot E11.9 TYPE 2 DIABETES MELLITUS WITHOUT COMPLIC 03/18/2016 JAELYN KAY FACC, ALI FACP CCDS Ot E66.09 OTHER OBESITY DUE TO EXCESS CALORIES 03/18/2016 JAELYN KAY FACC, ALI FACP CCDS Ot I48.2 CHRONIC ATRIAL FIBRILLATION 03/18/2016 JAELYN KAY FACC, SHAHRAM FACP CCDS Ot M79.89 OTHER SPECIFIED SOFT TISSUE DISORDERS 03/18/2016 JAELYN KAY FACC, ALI FACP CCDS Ot R06.02 SHORTNESS OF BREATH 03/18/2016 JAELYN KAY FACC, ALI FACP CCDS Ot R07.89 OTHER CHEST PAIN 03/19/2016 VERONICA ROQUE MD Ot Z12.31 ENCNTR SCREEN MAMMOGRAM FOR MALIGNANT NE 03/20/2016 VERONICA ROQUE MD Ot Z12.31 ENCNTR SCREEN MAMMOGRAM FOR MALIGNANT NE 03/26/2016 Ot 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 03/26/2016 Ot E66.01 MORBID (SEVERE) OBESITY DUE TO EXCESS CA 03/26/2016 Ot I48.2 CHRONIC ATRIAL FIBRILLATION 03/26/2016 Ot N18.3 CHRONIC KIDNEY DISEASE, STAGE 3 (MODERAT 03/26/2016 Ot R06.02 SHORTNESS OF BREATH 03/31/2016 ARIAS GONZALES RN FLIGHT Ot R00.0 TACHYCARDIA, UNSPECIFIED 03/31/2016 ARIAS GONZALES RN FLIGHT Ot R10.11 RIGHT UPPER QUADRANT PAIN 04/01/2016 JAELYN KAY FACC, SHAHRAM FACP CCDS Ot E11.9 TYPE 2 DIABETES MELLITUS WITHOUT COMPLIC 04/01/2016 JAELYN KAY FACC, ALI FACP CCDS Ot E66.09 OTHER OBESITY DUE TO EXCESS CALORIES 04/01/2016 JAELYN KAY FACC, SHAHRAM FACP CCDS Ot I48.2 CHRONIC ATRIAL FIBRILLATION 04/01/2016 JAELYN KAY FACC, SHAHRAM FACP CCDS Ot M79.89 OTHER SPECIFIED SOFT TISSUE DISORDERS 04/01/2016 JAELYN KAY FACC, ALI FACP CCDS Ot R06.02 SHORTNESS OF BREATH 04/01/2016 JAELYN KAY FACC, ALI FACP CCDS Ot R07.89 OTHER CHEST PAIN 04/01/2016 JAELYN KAY FACC, ALI FACP CCDS Ot E11.9 TYPE 2 DIABETES MELLITUS WITHOUT COMPLIC 04/01/2016 JAELYN KAY FACC, ALI FACP CCDS Ot E66.09 OTHER OBESITY DUE TO EXCESS CALORIES 04/01/2016 JAELYN KAY FACC, SHAHRAM FACP CCDS Ot I48.2 CHRONIC ATRIAL FIBRILLATION 04/01/2016 JAELYN KAY FACC, ALI FACP CCDS Ot M79.89 OTHER SPECIFIED SOFT TISSUE DISORDERS 04/01/2016 JAELYN KAY FACC, ALI FACP CCDS Ot R06.02 SHORTNESS OF BREATH 04/01/2016 JAELYN KAY FACC, ALI FACP CCDS Ot R07.89 OTHER CHEST PAIN 04/03/2016 JAELYN KAY FACC, ALI FACP CCDS Ot E11.9 TYPE 2 DIABETES MELLITUS WITHOUT COMPLIC 04/03/2016 JAELYN KAY FACC, ALI FACP CCDS Ot E66.09 OTHER OBESITY DUE TO EXCESS CALORIES 04/03/2016 JAELYN KAY FACC, ALI FACP CCDS Ot I48.2 CHRONIC ATRIAL FIBRILLATION 04/03/2016 JAELYN KAY FACC, ALI FACP CCDS Ot M79.89 OTHER SPECIFIED SOFT TISSUE DISORDERS 04/03/2016 JAELYN KAY FACC, ALI FACP CCDS Ot R06.02 SHORTNESS OF BREATH 04/03/2016 JAELYN KAY FACC, ALI FACP CCDS Ot R07.89 OTHER CHEST PAIN 04/14/2016 Ot 786.05 SHORTNESS OF BREATH 04/14/2016 Ot 786.2 COUGH 04/14/2016 Ot 790.29 OTHER ABNORMAL GLUCOSE 04/14/2016 Ot 793.81 MAMMOGRAPHIC MICROCLACIFICATION 04/14/2016 Ot V16.3 FAMILY HX-BREAST MALIG 04/14/2016 Ot V76.12 OTH SCREEN MAMMO-MALIGN NEOPLASM OF JORDIN 04/14/2016 Ot 793.81 MAMMOGRAPHIC MICROCLACIFICATION 04/14/2016 TOPHER OSULLIVAN RN FLIGHT Ot 793.81 MAMMOGRAPHIC MICROCLACIFICATION 04/14/2016 TOPHER OSULLIVAN RN FLIGHT Ot V76.12 OTH SCREEN MAMMO-MALIGN NEOPLASM OF JORDIN 04/14/2016 NICOL KAY, CARIE Murguia Ot 793.81 MAMMOGRAPHIC MICROCLACIFICATION 04/14/2016 JUDE KAY, VERONICA Barrow Ot Z12.31 ENCNTR SCREEN MAMMOGRAM FOR MALIGNANT NE 04/14/2016 ARIAS GONZALES RN FLIGHT Ot D72.829 ELEVATED WHITE BLOOD CELL COUNT, UNSPECI 04/14/2016 ARIAS GONZALES RN FLIGHT Ot R00.0 TACHYCARDIA, UNSPECIFIED 04/14/2016 ARIAS GONZALES RN FLIGHT Ot R10.11 RIGHT UPPER QUADRANT PAIN 04/14/2016 JAELYN KAY FACC, ALI FACP CCDS Ot E11.9 TYPE 2 DIABETES MELLITUS WITHOUT COMPLIC 04/14/2016 JAELYN KAY FACC, ALI FACP CCDS Ot E66.09 OTHER OBESITY DUE TO EXCESS CALORIES 04/14/2016 JAELYN KAY FACC, ALI FACP CCDS Ot I48.2 CHRONIC ATRIAL FIBRILLATION 04/14/2016 JAELYN KAY FACC, ALI FACP CCDS Ot M79.89 OTHER SPECIFIED SOFT TISSUE DISORDERS 04/14/2016 JAELYN KAY FACC, ALI FACP CCDS Ot R06.02 SHORTNESS OF BREATH 04/14/2016 JAELYN KAY FACC, ALI FACP CCDS Ot R07.89 OTHER CHEST PAIN 04/14/2016 JAEYLN KAY FACC, ALI FACP CCDS Ot E11.9 TYPE 2 DIABETES MELLITUS WITHOUT COMPLIC 04/14/2016 JAELYN KAY FACC, ALI FACP CCDS Ot E66.09 OTHER OBESITY DUE TO EXCESS CALORIES 04/14/2016 SHAHRAM CHRISTY MD, FACC FACP CCDS Ot I48.2 CHRONIC ATRIAL FIBRILLATION 04/14/2016 JAELYN KAY FACC, ALI FACP CCDS Ot M79.89 OTHER SPECIFIED SOFT TISSUE DISORDERS 04/14/2016 JAELYN KAY FACC, ALI FACP CCDS Ot R06.02 SHORTNESS OF BREATH 04/14/2016 JAELYN KAY FACC, ALI FACP CCDS Ot R07.89 OTHER CHEST PAIN 04/14/2016 JAELYN KAY FACC, ALI FACP CCDS Ot E11.9 TYPE 2 DIABETES MELLITUS WITHOUT COMPLIC 04/14/2016 JAELYN KAY FACC, ALI FACP CCDS Ot E66.09 OTHER OBESITY DUE TO EXCESS CALORIES 04/14/2016 JAELYN KAY FACC, ALI FACP CCDS Ot I48.2 CHRONIC ATRIAL FIBRILLATION 04/14/2016 JAELYN KAY FACC, ALI FACP CCDS Ot M79.89 OTHER SPECIFIED SOFT TISSUE DISORDERS 04/14/2016 JAELYN KAY FACC, ALI FACP CCDS Ot R06.02 SHORTNESS OF BREATH 04/14/2016 JAELYN KAY FACC, ALI FACP CCDS Ot R07.89 OTHER CHEST PAIN 04/14/2016 Ot 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 04/14/2016 Ot E66.01 MORBID (SEVERE) OBESITY DUE TO EXCESS CA 04/14/2016 Ot I48.2 CHRONIC ATRIAL FIBRILLATION 04/14/2016 Ot N18.3 CHRONIC KIDNEY DISEASE, STAGE 3 (MODERAT 04/14/2016 Ot R06.02 SHORTNESS OF BREATH 04/16/2016 Ot 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 04/16/2016 Ot E66.01 MORBID (SEVERE) OBESITY DUE TO EXCESS CA 04/16/2016 Ot I48.2 CHRONIC ATRIAL FIBRILLATION 04/16/2016 Ot N18.3 CHRONIC KIDNEY DISEASE, STAGE 3 (MODERAT 04/16/2016 Ot R06.02 SHORTNESS OF BREATH 05/05/2016 JIM PIZANO IMMUNOHEMATOLOGIST-C Ot E11.29 TYPE 2 DIABETES MELLITUS W OTH DIABETIC 05/05/2016 JIM PIZANO IMMUNOHEMATOLOGIST-C Ot E55.9 VITAMIN D DEFICIENCY, UNSPECIFIED 05/05/2016 JIM PIZANO IMMUNOHEMATOLOGIST-C Ot E66.9 OBESITY, UNSPECIFIED 05/05/2016 JIM PIZANO IMMUNOHEMATOLOGIST-C Ot E78.5 HYPERLIPIDEMIA, UNSPECIFIED 05/05/2016 JIM PIZANO IMMUNOHEMATOLOGIST-C Ot E83.42 HYPOMAGNESEMIA 05/05/2016 NEWJIM IMMUNOHEMATOLOGIST-C Ot E87.6 HYPOKALEMIA 05/05/2016 JIM PIZANO IMMUNOHEMATOLOGIST-C Ot E88.09 OTH DISORDERS OF PLASMA-PROTEIN METABOLI 05/05/2016 JIM PIZANO IMMUNOHEMATOLOGIST-C Ot 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, W S 05/05/2016 JIM PIZANO IMMUNOHEMATOLOGIST-C Ot I48.0 PAROXYSMAL ATRIAL FIBRILLATION 05/05/2016 JIM PIZANO IMMUNOHEMATOLOGIST-C Ot N18.3 CHRONIC KIDNEY DISEASE, STAGE 3 (MODERAT 05/05/2016 JIM PIZANO IMMUNOHEMATOLOGIST-C Ot R80.9 PROTEINURIA, UNSPECIFIED 05/09/2016 THELMA MARP Ot E11.9 TYPE 2 DIABETES MELLITUS WITHOUT COMPLIC 05/09/2016 THELMA MARP Ot G62.9 POLYNEUROPATHY, UNSPECIFIED 05/09/2016 THELMA MARP Ot I10 ESSENTIAL (PRIMARY) HYPERTENSION 05/09/2016 THELMA MARP Ot M25.571 PAIN IN RIGHT ANKLE AND JOINTS OF RIGHT 05/09/2016 THELMA MARP Ot N39.0 URINARY TRACT INFECTION, SITE NOT SPECIF 05/09/2016 THELMA MAR RN FLIGHT Ot Z79.84 LONG-TERM (CURRENT) USE OF ORAL HYPOGLYC 05/09/2016 THELMA MAR RN FLIGHT Ot Z79.899 OTHER FAMILY NURSE (CURRENT) DRUG THERAPY 05/09/2016 THELMA MAR RN FLIGHT Ot Z96.651 PRESENCE OF RIGHT ARTIFICIAL KNEE JOINT 05/12/2016 THELMA MARP Ot E11.9 TYPE 2 DIABETES MELLITUS WITHOUT COMPLIC 05/12/2016 THELMA MAR RN FLIGHT Ot G62.9 POLYNEUROPATHY, UNSPECIFIED 05/12/2016 ISABELA THELMA RN FLIGHT Ot I10 ESSENTIAL (PRIMARY) HYPERTENSION 05/12/2016 THELMA MAR RN FLIGHT Ot M25.571 PAIN IN RIGHT ANKLE AND JOINTS OF RIGHT 05/12/2016 THELMA MAR RN FLIGHT Ot N39.0 URINARY TRACT INFECTION, SITE NOT SPECIF 05/12/2016 THELMA MARP Ot Z79.84 LONG-TERM (CURRENT) USE OF ORAL HYPOGLYC 05/12/2016 THELMA MARP Ot Z79.899 OTHER FAMILY NURSE (CURRENT) DRUG THERAPY 05/12/2016 THELMA MAR RN FLIGHT Ot Z96.651 PRESENCE OF RIGHT ARTIFICIAL KNEE JOINT 05/16/2016 LOUISE DURBIN DO, Ot E11.9 TYPE 2 DIABETES MELLITUS WITHOUT COMPLIC 05/16/2016 LOUISE DURBIN DO, Ot F41.9 ANXIETY DISORDER, UNSPECIFIED 05/16/2016 LOUISE DURBIN DO Ot I10 ESSENTIAL (PRIMARY) HYPERTENSION 05/16/2016 LOUISE DURBIN DO, Ot N28.9 DISORDER OF KIDNEY AND URETER, UNSPECIFI 05/16/2016 LOUISE DURBIN DO Ot N39.0 URINARY TRACT INFECTION, SITE NOT SPECIF 05/16/2016 LOUISE DURBIN DO Ot R41.0 DISORIENTATION, UNSPECIFIED 05/16/2016 LOUISE DURBIN DO, Ot Z79.84 LONG-TERM (CURRENT) USE OF ORAL HYPOGLYC 05/16/2016 LOUISE DURBIN DO Ot Z79.899 OTHER FAMILY NURSE (CURRENT) DRUG THERAPY 05/18/2016 LOUISE DURBIN DO, Ot E11.9 TYPE 2 DIABETES MELLITUS WITHOUT COMPLIC 05/18/2016 LOUISE DURBIN DO, Ot F41.9 ANXIETY DISORDER, UNSPECIFIED 05/18/2016 LOUISE DURBIN DO Ot I10 ESSENTIAL (PRIMARY) HYPERTENSION 05/18/2016 LOUISE DURBIN DO Ot N28.9 DISORDER OF KIDNEY AND URETER, UNSPECIFI 05/18/2016 LOUISE DURBIN DO Ot N39.0 URINARY TRACT INFECTION, SITE NOT SPECIF 05/18/2016 LOUISE DURBIN DO Ot R41.0 DISORIENTATION, UNSPECIFIED 05/18/2016 LOUISE DURBIN DO, Ot Z79.84 LONG-TERM (CURRENT) USE OF ORAL HYPOGLYC 05/18/2016 LOUISE DURBIN DO Ot Z79.899 OTHER FAMILY NURSE (CURRENT) DRUG THERAPY 05/21/2016 LOUISE DURBIN DO Ot E11.9 TYPE 2 DIABETES MELLITUS WITHOUT COMPLIC 05/21/2016 LOUISE DURBIN DO, Ot F41.9 ANXIETY DISORDER, UNSPECIFIED 05/21/2016 LOUISE DURBIN DO Ot I10 ESSENTIAL (PRIMARY) HYPERTENSION 05/21/2016 LOUISE DURBIN DO, Ot N28.9 DISORDER OF KIDNEY AND URETER, UNSPECIFI 05/21/2016 LOUISE DURBIN DO Ot N39.0 URINARY TRACT INFECTION, SITE NOT SPECIF 05/21/2016 LOUISE DURBIN DO Ot R41.0 DISORIENTATION, UNSPECIFIED 05/21/2016 LOUISE DURBIN DO Ot Z79.84 LONG-TERM (CURRENT) USE OF ORAL HYPOGLYC 05/21/2016 LOUISE DURBIN DO Ot Z79.899 OTHER LONG-TERM (CURRENT) DRUG THERAPY 05/24/2016 SB DO JIM K Ot E11.9 TYPE 2 DIABETES MELLITUS WITHOUT COMPLIC 05/24/2016 SB DO, JIM K Ot E66.9 OBESITY, UNSPECIFIED 05/24/2016 SB DO, JIM K Ot I10 ESSENTIAL (PRIMARY) HYPERTENSION 05/24/2016 SB DO, JIM K Ot K56.41 FECAL IMPACTION 05/24/2016 SB DO, JIM K Ot K59.00 CONSTIPATION, UNSPECIFIED 05/24/2016 SB DO, JIM K Ot K64.9 UNSPECIFIED HEMORRHOIDS 05/24/2016 SB DO, JIM K Ot N20.0 CALCULUS OF KIDNEY 05/24/2016 SB DO JIM K Ot Z79.84 FAMILY NURSE (CURRENT) USE OF ORAL HYPOGLYC 05/24/2016 JIM BASURTO DO Ot Z79.899 OTHER LONG-TERM (CURRENT) DRUG THERAPY 05/26/2016 Ot 786.05 SHORTNESS OF BREATH 05/26/2016 Ot 786.2 COUGH 05/26/2016 Ot 790.29 OTHER ABNORMAL GLUCOSE 05/26/2016 Ot 793.81 MAMMOGRAPHIC MICROCLACIFICATION 05/26/2016 Ot V16.3 FAMILY HX-BREAST MALIG 05/26/2016 Ot V76.12 OTH SCREEN MAMMO-MALIGN NEOPLASM OF JORDIN 05/26/2016 Ot 793.81 MAMMOGRAPHIC MICROCLACIFICATION 05/26/2016 TOPHER OSULLIVAN RN FLIGHT Ot 793.81 MAMMOGRAPHIC MICROCLACIFICATION 05/26/2016 TOPHER OSULLIVAN RN FLIGHT Ot V76.12 OTH SCREEN MAMMO-MALIGN NEOPLASM OF JORDIN 05/26/2016 NICOL KAY, CARIE Murguia Ot 793.81 MAMMOGRAPHIC MICROCLACIFICATION 05/26/2016 JUDE KAY, VERONICA Barrow Ot Z12.31 ENCNTR SCREEN MAMMOGRAM FOR MALIGNANT NE 05/26/2016 ARIAS GONZALES RN FLIGHT Ot D72.829 ELEVATED WHITE BLOOD CELL COUNT, UNSPECI 05/26/2016 ARIAS GONZALES RN FLIGHT Ot R00.0 TACHYCARDIA, UNSPECIFIED 05/26/2016 ARIAS GONZALES RN FLIGHT Ot R10.11 RIGHT UPPER QUADRANT PAIN 05/26/2016 JAELYN KAY FACC, SHAHRAM FACP CCDS Ot E11.9 TYPE 2 DIABETES MELLITUS WITHOUT COMPLIC 05/26/2016 JAELYN KAY FACC, SHAHRAM FACP CCDS Ot E66.09 OTHER OBESITY DUE TO EXCESS CALORIES 05/26/2016 JAELYN KAY FACC, SHAHRAM FACP CCDS Ot I48.2 CHRONIC ATRIAL FIBRILLATION 05/26/2016 JAELYN KAY FACC, SHAHRAM FACP CCDS Ot M79.89 OTHER SPECIFIED SOFT TISSUE DISORDERS 05/26/2016 JAELYN KAY FACC, SHAHRAM FACP CCDS Ot R06.02 SHORTNESS OF BREATH 05/26/2016 JAELYN KAY FACC, SHAHRAM FACP CCDS Ot R07.89 OTHER CHEST PAIN 05/26/2016 JAELYN KAY FACC, SHAHRAM FACP CCDS Ot E11.9 TYPE 2 DIABETES MELLITUS WITHOUT COMPLIC 05/26/2016 JAELYN MD FACC, ALI FACP CCDS Ot E66.09 OTHER OBESITY DUE TO EXCESS CALORIES 05/26/2016 JAELYN KAY FACC, ALI FACP CCDS Ot I48.2 CHRONIC ATRIAL FIBRILLATION 05/26/2016 JAELYN KAY FACChapin, ALI FACP CCDS Ot M79.89 OTHER SPECIFIED SOFT TISSUE DISORDERS 05/26/2016 JAELYN KAY FACC, ALI FACP CCDS Ot R06.02 SHORTNESS OF BREATH 05/26/2016 JAELYN KAY FACC, ALI FACP CCDS Ot R07.89 OTHER CHEST PAIN 05/26/2016 JAELYN KAY FACC, ALI FACP CCDS Ot E11.9 TYPE 2 DIABETES MELLITUS WITHOUT COMPLIC 05/26/2016 JAELYN KAY FACC, ALI FACP CCDS Ot E66.09 OTHER OBESITY DUE TO EXCESS CALORIES 05/26/2016 JAELYN KAY FACC, ALI FACP CCDS Ot I48.2 CHRONIC ATRIAL FIBRILLATION 05/26/2016 JAELYN KAY FACC, ALI FACP CCDS Ot M79.89 OTHER SPECIFIED SOFT TISSUE DISORDERS 05/26/2016 JAELYN KAY FACC, ALI FACP CCDS Ot R06.02 SHORTNESS OF BREATH 05/26/2016 JAELYN KAY [facility], ALI FACP CCDS Ot R07.89 OTHER CHEST PAIN 05/26/2016 Ot 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 05/26/2016 Ot E66.01 MORBID (SEVERE) OBESITY DUE TO EXCESS CA 05/26/2016 Ot I48.2 CHRONIC ATRIAL FIBRILLATION 05/26/2016 Ot N18.3 CHRONIC KIDNEY DISEASE, STAGE 3 (MODERAT 05/26/2016 Ot R06.02 SHORTNESS OF BREATH 05/26/2016 JIM PIZANO IMMUNOHEMATOLOGIST-C Ot E11.29 TYPE 2 DIABETES MELLITUS W OTH DIABETIC 05/26/2016 JIM PIZANO IMMUNOHEMATOLOGIST-C Ot E55.9 VITAMIN D DEFICIENCY, UNSPECIFIED 05/26/2016 JIM PIZANO IMMUNOHEMATOLOGIST-C Ot E66.9 OBESITY, UNSPECIFIED 05/26/2016 JIM PIZANO NP-C Ot E78.5 HYPERLIPIDEMIA, UNSPECIFIED 05/26/2016 JIM PIZANO IMMUNOHEMATOLOGIST-C Ot E83.42 HYPOMAGNESEMIA 05/26/2016 JIM PIZANO IMMUNOHEMATOLOGIST-C Ot E87.6 HYPOKALEMIA 05/26/2016 JIM PIZANO IMMUNOHEMATOLOGIST-C Ot E88.09 OTH DISORDERS OF PLASMA-PROTEIN METABOLI 05/26/2016 JIM PIZANOFritz QUIROZ-Chapin Ot 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, W S 05/26/2016 JIM PIZANOFritz QUIROZ-C Ot I48.0 PAROXYSMAL ATRIAL FIBRILLATION 05/26/2016 JIM PIZANOFritz QUIROZ-C Ot N18.3 CHRONIC KIDNEY DISEASE, STAGE 3 (MODERAT 05/26/2016 JIM PIZANOFritz QUIROZ-C Ot R80.9 PROTEINURIA, UNSPECIFIED 05/26/2016 PRIETO NINA MD Ot E11.9 TYPE 2 DIABETES MELLITUS WITHOUT COMPLIC 05/26/2016 PRIETO NINA MD Ot E66.9 OBESITY, UNSPECIFIED 05/26/2016 PRIETO NINA MD Ot I10 ESSENTIAL (PRIMARY) HYPERTENSION 05/26/2016 PRIETO NINA MD Ot K62.5 HEMORRHAGE OF ANUS AND RECTUM 05/26/2016 PRIETO NINA MD Ot R19.7 DIARRHEA, UNSPECIFIED 05/26/2016 PRIETO NINA MD Ot Z79.84 FAMILY NURSE (CURRENT) USE OF ORAL HYPOGLYC 05/26/2016 PRIETO NINA MD Ot Z79.899 OTHER LONG-TERM (CURRENT) DRUG THERAPY 05/27/2016 PRIETO NINA MD Ot E11.9 TYPE 2 DIABETES MELLITUS WITHOUT COMPLIC 05/27/2016 PRIETO NINA MD Ot E66.9 OBESITY, UNSPECIFIED 05/27/2016 PRIETO NINA MD Ot I10 ESSENTIAL (PRIMARY) HYPERTENSION 05/27/2016 PRIETO NINA MD Ot K62.5 HEMORRHAGE OF ANUS AND RECTUM 05/27/2016 PRIETO NINA MD Ot R19.7 DIARRHEA, UNSPECIFIED 05/27/2016 PRIETO NINA MD Ot Z79.84 LONG-TERM (CURRENT) USE OF ORAL HYPOGLYC 05/27/2016 PRIETO NINA MD Ot Z79.899 OTHER LONG-TERM (CURRENT) DRUG THERAPY 06/02/2016 REJI KAY, FRANCI Barrow Ot N20.0 CALCULUS OF KIDNEY 06/02/2016 REJI KAY, FRANCI A Ot N39.0 URINARY TRACT INFECTION, SITE NOT SPECIF 06/23/2016 REJI KAY, FRANCI A Ot N20.0 CALCULUS OF KIDNEY 06/23/2016 REJI KAY, FRANCI A Ot N39.0 URINARY TRACT INFECTION, SITE NOT SPECIF 07/27/2016 NEW, JIM Oswald IMMUNOHEMATOLOGIST-C Ot 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 07/27/2016 NEW, JIM Oswald IMMUNOHEMATOLOGIST-C Ot E55.9 VITAMIN D DEFICIENCY, UNSPECIFIED 07/27/2016 NEW, JIM Oswald IMMUNOHEMATOLOGIST-C Ot E66.9 OBESITY, UNSPECIFIED 07/27/2016 NEW, JIM Oswald IMMUNOHEMATOLOGIST-C Ot E78.5 HYPERLIPIDEMIA, UNSPECIFIED 07/27/2016 NEW, JIM Oswald IMMUNOHEMATOLOGIST-C Ot E83.42 HYPOMAGNESEMIA 07/27/2016 NEW, JIM Oswald IMMUNOHEMATOLOGIST-C Ot E87.6 HYPOKALEMIA 07/27/2016 NEW, JIM Oswald IMMUNOHEMATOLOGIST-C Ot E88.09 OTH DISORDERS OF PLASMA-PROTEIN METABOLI 07/27/2016 NEW, JIM Oswald IMMUNOHEMATOLOGIST-C Ot 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, W S 07/27/2016 NEW, JIM Oswald IMMUNOHEMATOLOGIST-C Ot I48.0 PAROXYSMAL ATRIAL FIBRILLATION 07/27/2016 NEW, JIM Oswald IMMUNOHEMATOLOGIST-C Ot N18.3 CHRONIC KIDNEY DISEASE, STAGE 3 (MODERAT 07/27/2016 NEW, JIM Oswald IMMUNOHEMATOLOGIST-C Ot R80.9 PROTEINURIA, UNSPECIFIED 08/14/2016 NEW, JIM Oswald IMMUNOHEMATOLOGIST-C Ot 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 08/14/2016 NEW, JIM Oswald IMMUNOHEMATOLOGIST-C Ot E55.9 VITAMIN D DEFICIENCY, UNSPECIFIED 08/14/2016 NEW, JIM Oswald IMMUNOHEMATOLOGIST-C Ot E66.9 OBESITY, UNSPECIFIED 08/14/2016 NEW, JIM GFritz IMMUNOHEMATOLOGIST-C Ot E78.5 HYPERLIPIDEMIA, UNSPECIFIED 08/14/2016 NEW, JIM Oswald IMMUNOHEMATOLOGIST-C Ot E83.42 HYPOMAGNESEMIA 08/14/2016 NEW, JIM Oswald IMMUNOHEMATOLOGIST-C Ot E87.6 HYPOKALEMIA 08/14/2016 JERICAJIMFritz IMMUNOHEMATOLOGIST-C Ot E88.09 OTH DISORDERS OF PLASMA-PROTEIN METABOLI 08/14/2016 JIM PIZANOFritz QUIROZ-C Ot 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, W S 08/14/2016 JERICAJIMFritz QUIROZ-C Ot I48.0 PAROXYSMAL ATRIAL FIBRILLATION 08/14/2016 JERICA JIM GarciaFritz IMMUNOHEMATOLOGIST-C Ot N18.3 CHRONIC KIDNEY DISEASE, STAGE 3 (MODERAT 08/14/2016 JERICAJIMFritz IMMUNOHEMATOLOGIST-C Ot R80.9 PROTEINURIA, UNSPECIFIED 10/25/2016 REESE KIM MD Ot E11.9 TYPE 2 DIABETES MELLITUS WITHOUT COMPLIC 10/25/2016 REESE KIM MD Ot I12.9 HYPERTENSIVE CHRONIC KIDNEY DISEASE W ST 10/25/2016 REESE KIM MD Ot K57.30 DVRTCLOS OF LG INT W/O PERFORATION OR AB 10/25/2016 REESE KIM MD Ot K80.20 CALCULUS OF GALLBLADDER W/O CHOLECYSTITI 10/25/2016 REESE KIM MD Ot M47.816 SPONDYLOSIS W/O MYELOPATHY OR RADICULOPA 10/25/2016 REESE KIM MD Ot N18.3 CHRONIC KIDNEY DISEASE, STAGE 3 (MODERAT 10/25/2016 REESE KIM MD Ot N20.0 CALCULUS OF KIDNEY 10/25/2016 REESE KIM MD Ot N30.91 CYSTITIS, UNSPECIFIED WITH HEMATURIA 10/25/2016 REESE KIM MD Ot N39.0 URINARY TRACT INFECTION, SITE NOT SPECIF 10/25/2016 REESE KIM MD Ot Z79.01 FAMILY NURSE (CURRENT) USE OF ANTICOAGULANT 10/25/2016 REESE KIM MD Ot Z79.84 LONG-TERM (CURRENT) USE OF ORAL HYPOGLYC 10/25/2016 REESE KIM MD Ot Z79.899 OTHER FAMILY NURSE (CURRENT) DRUG THERAPY 11/04/2016 REESE KIM MD Ot E11.9 TYPE 2 DIABETES MELLITUS WITHOUT COMPLIC 11/04/2016 REESE KIM MD Ot G43.909 MIGRAINE, UNSP, NOT INTRACTABLE, WITHOUT 11/04/2016 REESE KIM MD Ot H81.10 BENIGN PAROXYSMAL VERTIGO, UNSPECIFIED E 11/04/2016 JUDY KAY, REESE Carter Ot Z79.84 FAMILY NURSE (CURRENT) USE OF ORAL HYPOGLYC Procedures Results Test Result Range Complete blood count (CBC) with automated white blood cell (WBC) differential - 02/22/16 19:17 Blood leukocytes automated count (number/volume) 15.6 10*3/ uL 4.3-11.0 Blood erythrocytes automated count (number/volume) 4.31 10*6 /uL 4.35-5.85 Venous blood hemoglobin measurement (mass/volume) 13.6 g/dL 11.5-16.0 Blood hematocrit (volume fraction) 40 % 35-52 Automated erythrocyte mean corpuscular volume 93 [foz_us] 80-99 Automated erythrocyte mean corpuscular hemoglobin (mass per erythrocyte) 32 pg 25-34 Automated erythrocyte mean corpuscular hemoglobin concentration measurement ( mass/volume) 34 g/dL 32-36 Automated erythrocyte distribution width ratio 13.8 % 10.0-14.5 Automated blood platelet count (count/volume) 253 10*3/uL 130-400 Automated blood platelet mean volume measurement 9.7 [foz_us ] 7.4-10.4 Automated blood neutrophils/100 leukocytes 76 % 42-75 Automated blood lymphocytes/100 leukocytes 14 % 12-44 Blood monocytes/100 leukocytes 10 % 0-12 Automated blood eosinophils/100 leukocytes 1 % 0-10 Automated blood basophils/100 leukocytes 0 % 0-10 Blood neutrophils automated count (number/volume) 11.8 10*3 1.8-7.8 Blood lymphocytes automated count (number/volume) 2.2 10*3 1.0-4.0 Blood monocytes automated count (number/volume) 1.6 10*3 0.0-1.0 Automated eosinophil count 0.1 10*3/uL 0.0-0.3 Automated blood basophil count (count/volume) 0.0 10*3/uL 0.0-0.1 PT panel in platelet poor plasma by coagulation assay - 02/22/16 19:17 Prothrombin time (PT) in platelet poor plasma by coagulation assay 19.4 s 12.2-14.7 INR in platelet poor plasma or blood by coagulation assay 1.7 0.8-1.4 Activated partial thromboplastin time (aPTT) in platelet poor plasma bycoagulation assay - 02/22/16 19:17 Activated partial thromboplastin time (aPTT) in platelet poor plasma bycoagulation assay 43 s 24-35 Fibrin D-dimer FEU measurement in platelet poor plasma (mass/volume) - 19:17 Fibrin D-dimer FEU measurement in platelet poor plasma (mass/volume) 1.11 ug/mL 0.00-0.49 Blood manual differential performed detection - 02/22/16 19:17 Blood monocytes/100 leukocytes 5 % NRG Manual blood segmented neutrophils/100 leukocytes 76 % NRG Blood band neutrophils/100 leukocytes 1 % NRG Manual blood lymphocytes/100 leukocytes 17 % NRG Manual eosinophils/100 leukocytes in nose 1 % NRG Manual blood basophils/100 leukocytes 0 % NRG Blood erythrocyte morphology finding identification NORMAL NRG Erythrocyte sedimentation rate by westergren method - 02/22/16 19:17 Erythrocyte sedimentation rate by westergren method 93 mm 0-30 Comprehensive metabolic panel - 02/22/16 19:17 Serum or plasma sodium measurement (moles/volume) 138 mmol/ L 135-145 Serum or plasma potassium measurement (moles/volume) 3.7 mmol/L 3.6-5.0 Serum or plasma chloride measurement (moles/volume) 100 mmol /L 98-107 Carbon dioxide 27 mmol/L 21-32 Serum or plasma anion gap determination (moles/volume) 11 mmol/L 5-14 Serum or plasma urea nitrogen measurement (mass/volume) 27 mg/dL 7-18 Serum or plasma creatinine measurement (mass/volume) 1.51 mg /dL 0.60-1.30 Serum or plasma urea nitrogen/creatinine mass ratio 18 NRG Serum or plasma creatinine measurement with calculation of estimated glomerular filtration rate 36 NRG Serum or plasma glucose measurement (mass/volume) 178 mg/dL 70-105 Serum or plasma calcium measurement (mass/volume) 8.8 mg/dL 8.5-10.1 Serum or plasma total bilirubin measurement (mass/volume) 1.6 mg/dL 0.1-1.0 Serum or plasma alkaline phosphatase measurement (enzymatic activity/volume) 56 U/L 40-136 Serum or plasma aspartate aminotransferase measurement (enzymatic activity/ volume) 10 U/L 5-34 Serum or plasma alanine aminotransferase measurement (enzymatic activity/volume ) 6 U/L 0-55 Serum or plasma protein measurement (mass/volume) 7.0 g/dL 6.4-8.2 Serum or plasma albumin measurement (mass/volume) 3.2 g/dL 3.2-4.5 Serum or plasma uric acid measurement (mass/volume) - 02/22/16 19:17 Serum or plasma uric acid measurement (mass/volume) 10.4 mg/ dL 2.6-7.2 Magnesium - 02/22/16 19:17 Magnesium 1.3 mg/dL 1.8-2.4 Complete urinalysis with reflex to culture - 02/22/16 21:35 Urine color determination YELLOW NRG Urine clarity determination CLEAR NRG Urine pH measurement by test strip 5 5- 9 Specific gravity of urine by test strip 1.015 1.016-1.022 Urine protein assay by test strip, semi-quantitative 2+ NEGATIVE Urine glucose detection by automated test strip NEGATIVE NEGATIVE Erythrocytes detection in urine sediment by light microscopy 2+ NEGATIVE Urine ketones detection by automated test strip NEGATIVE NEGATIVE Urine nitrite detection by test strip NEGATIVE NEGATIVE Urine total bilirubin detection by test strip 1+ NEGATIVE Urine urobilinogen measurement by automated test strip (mass/volume) 1 mg/dL NORMAL Urine leukocyte esterase detection by dipstick 3+ NEGATIVE Automated urine sediment erythrocyte count by microscopy (number/high power field) NONE NRG Automated urine sediment leukocyte count by microscopy (number/high power field ) > [HPF] NRG Bacteria detection in urine sediment by light microscopy FEW NRG Squamous epithelial cells detection in urine sediment by light microscopy 5-10 NRG Crystals detection in urine sediment by light microscopy NONE NRG Casts detection in urine sediment by light microscopy PRESENT NRG Mucus detection in urine sediment by light microscopy NEGATIVE NRG Complete urinalysis with reflex to culture YES NRG Granular casts detection in urine sediment by light microscopy 10-25 NRG Bacterial urine culture - 02/22/16 21:35 URINE CULTURE RESULTS <10,000/ML NRG Blood lactic acid measurement (moles/volume) - 02/22/16 21:50 Blood lactic acid measurement (moles/volume) 2.6 mmol/L 0.5-2.0 Bacterial blood culture - 02/22/16 21:50 Bacterial blood culture NG NRG Bacterial blood culture - 02/22/16 22:02 Bacterial blood culture NG NRG Serum or plasma lactate measurement (moles/volume) - 02/22/16 23:35 Serum or plasma lactate measurement (moles/volume) 1.8 mmol/ L 0.5-2.0 Methicillin resistant Staphylococcus aureus (MRSA) screening culture - 00:50 Methicillin resistant Staphylococcus aureus (MRSA) screening culture NEG NRG Capillary blood glucose measurement by glucometer (mass/volume) - 02/23/16 03: 50 Capillary blood glucose measurement by glucometer (mass/volume) 143 mg/dL 70-110 Complete blood count (CBC) with automated white blood cell (WBC) differential - 02/23/16 04:20 Blood leukocytes automated count (number/volume) 10.4 10*3/ uL 4.3-11.0 Blood erythrocytes automated count (number/volume) 3.60 10*6 /uL 4.35-5.85 Venous blood hemoglobin measurement (mass/volume) 11.5 g/dL 11.5-16.0 Blood hematocrit (volume fraction) 34 % 35-52 Automated erythrocyte mean corpuscular volume 95 [foz_us] 80-99 Automated erythrocyte mean corpuscular hemoglobin (mass per erythrocyte) 32 pg 25-34 Automated erythrocyte mean corpuscular hemoglobin concentration measurement ( mass/volume) 34 g/dL 32-36 Automated erythrocyte distribution width ratio 13.7 % 10.0-14.5 Automated blood platelet count (count/volume) 187 10*3/uL 130-400 Automated blood platelet mean volume measurement 10.1 [foz_ us] 7.4-10.4 Automated blood neutrophils/100 leukocytes 79 % 42-75 Automated blood lymphocytes/100 leukocytes 13 % 12-44 Blood monocytes/100 leukocytes 7 % 0-12 Automated blood eosinophils/100 leukocytes 1 % 0-10 Automated blood basophils/100 leukocytes 0 % 0-10 Blood neutrophils automated count (number/volume) 8.3 10*3 1.8-7.8 Blood lymphocytes automated count (number/volume) 1.3 10*3 1.0-4.0 Blood monocytes automated count (number/volume) 0.8 10*3 0.0-1.0 Automated eosinophil count 0.1 10*3/uL 0.0-0.3 Automated blood basophil count (count/volume) 0.0 10*3/uL 0.0-0.1 PT panel in platelet poor plasma by coagulation assay - 02/23/16 04:20 Prothrombin time (PT) in platelet poor plasma by coagulation assay 19.4 s 12.2-14.7 INR in platelet poor plasma or blood by coagulation assay 1.7 0.8-1.4 Activated partial thromboplastin time (aPTT) in platelet poor plasma bycoagulation assay - 02/23/16 04:20 Activated partial thromboplastin time (aPTT) in platelet poor plasma bycoagulation assay 46 s 24-35 Comprehensive metabolic panel - 02/23/16 04:20 Serum or plasma sodium measurement (moles/volume) 139 mmol/ L 135-145 Serum or plasma potassium measurement (moles/volume) 3.9 mmol/L 3.6-5.0 Serum or plasma chloride measurement (moles/volume) 105 mmol /L 98-107 Carbon dioxide 21 mmol/L 21-32 Serum or plasma anion gap determination (moles/volume) 13 mmol/L 5-14 Serum or plasma urea nitrogen measurement (mass/volume) 34 mg/dL 7-18 Serum or plasma creatinine measurement (mass/volume) 2.26 mg /dL 0.60-1.30 Serum or plasma urea nitrogen/creatinine mass ratio 15 NRG Serum or plasma creatinine measurement with calculation of estimated glomerular filtration rate 22 NRG Serum or plasma glucose measurement (mass/volume) 167 mg/dL 70-105 Serum or plasma calcium measurement (mass/volume) 8.0 mg/dL 8.5-10.1 Serum or plasma total bilirubin measurement (mass/volume) 1.2 mg/dL 0.1-1.0 Serum or plasma alkaline phosphatase measurement (enzymatic activity/volume) 49 U/L 40-136 Serum or plasma aspartate aminotransferase measurement (enzymatic activity/ volume) 12 U/L 5-34 Serum or plasma alanine aminotransferase measurement (enzymatic activity/volume ) 7 U/L 0-55 Serum or plasma protein measurement (mass/volume) 5.9 g/dL 6.4-8.2 Serum or plasma albumin measurement (mass/volume) 2.7 g/dL 3.2-4.5 Capillary blood glucose measurement by glucometer (mass/volume) - 02/23/16 10: 37 Capillary blood glucose measurement by glucometer (mass/volume) 187 mg/dL 70-110 Capillary blood glucose measurement by glucometer (mass/volume) - 02/23/16 14: 17 Capillary blood glucose measurement by glucometer (mass/volume) 231 mg/dL 70-110 Capillary blood glucose measurement by glucometer (mass/volume) - 02/23/16 22: 18 Capillary blood glucose measurement by glucometer (mass/volume) 220 mg/dL 70-110 Complete blood count (CBC) with automated white blood cell (WBC) differential - 02/24/16 04:25 Blood leukocytes automated count (number/volume) 9.2 10*3/ uL 4.3-11.0 Blood erythrocytes automated count (number/volume) 3.46 10*6 /uL 4.35-5.85 Venous blood hemoglobin measurement (mass/volume) 11.0 g/dL 11.5-16.0 Blood hematocrit (volume fraction) 33 % 35-52 Automated erythrocyte mean corpuscular volume 96 [foz_us] 80-99 Automated erythrocyte mean corpuscular hemoglobin (mass per erythrocyte) 32 pg 25-34 Automated erythrocyte mean corpuscular hemoglobin concentration measurement ( mass/volume) 33 g/dL 32-36 Automated erythrocyte distribution width ratio 13.1 % 10.0-14.5 Automated blood platelet count (count/volume) 168 10*3/uL 130-400 Automated blood platelet mean volume measurement 9.8 [foz_us ] 7.4-10.4 Automated blood neutrophils/100 leukocytes 74 % 42-75 Automated blood lymphocytes/100 leukocytes 19 % 12-44 Blood monocytes/100 leukocytes 7 % 0-12 Automated blood eosinophils/100 leukocytes 0 % 0-10 Automated blood basophils/100 leukocytes 0 % 0-10 Blood neutrophils automated count (number/volume) 6.8 10*3 1.8-7.8 Blood lymphocytes automated count (number/volume) 1.7 10*3 1.0-4.0 Blood monocytes automated count (number/volume) 0.6 10*3 0.0-1.0 Automated eosinophil count 0.0 10*3/uL 0.0-0.3 Automated blood basophil count (count/volume) 0.0 10*3/uL 0.0-0.1 PT panel in platelet poor plasma by coagulation assay - 02/24/16 04:25 Prothrombin time (PT) in platelet poor plasma by coagulation assay 16.9 s 12.2-14.7 INR in platelet poor plasma or blood by coagulation assay 1.4 0.8-1.4 Activated partial thromboplastin time (aPTT) in platelet poor plasma bycoagulation assay - 02/24/16 04:25 Activated partial thromboplastin time (aPTT) in platelet poor plasma bycoagulation assay 27 s 24-35 Comprehensive metabolic panel - 02/24/16 04:25 Serum or plasma sodium measurement (moles/volume) 136 mmol/ L 135-145 Serum or plasma potassium measurement (moles/volume) 3.7 mmol/L 3.6-5.0 Serum or plasma chloride measurement (moles/volume) 107 mmol /L 98-107 Carbon dioxide 19 mmol/L 21-32 Serum or plasma anion gap determination (moles/volume) 10 mmol/L 5-14 Serum or plasma urea nitrogen measurement (mass/volume) 45 mg/dL 7-18 Serum or plasma creatinine measurement (mass/volume) 1.34 mg /dL 0.60-1.30 Serum or plasma urea nitrogen/creatinine mass ratio 34 NRG Serum or plasma creatinine measurement with calculation of estimated glomerular filtration rate 41 NRG Serum or plasma glucose measurement (mass/volume) 193 mg/dL 70-105 Serum or plasma calcium measurement (mass/volume) 7.4 mg/dL 8.5-10.1 Serum or plasma total bilirubin measurement (mass/volume) 0.3 mg/dL 0.1-1.0 Serum or plasma alkaline phosphatase measurement (enzymatic activity/volume) 43 U/L 40-136 Serum or plasma aspartate aminotransferase measurement (enzymatic activity/ volume) 11 U/L 5-34 Serum or plasma alanine aminotransferase measurement (enzymatic activity/volume ) 8 U/L 0-55 Serum or plasma protein measurement (mass/volume) 5.6 g/dL 6.4-8.2 Serum or plasma albumin measurement (mass/volume) 2.6 g/dL 3.2-4.5 Capillary blood glucose measurement by glucometer (mass/volume) - 02/24/16 10: 34 Capillary blood glucose measurement by glucometer (mass/volume) 200 mg/dL 70-110 Capillary blood glucose measurement by glucometer (mass/volume) - 02/24/16 15: 48 Capillary blood glucose measurement by glucometer (mass/volume) 163 mg/dL 70-110 Capillary blood glucose measurement by glucometer (mass/volume) - 02/24/16 21: 05 Capillary blood glucose measurement by glucometer (mass/volume) 195 mg/dL 70-110 Complete blood count (CBC) with automated white blood cell (WBC) differential - 02/25/16 03:55 Blood leukocytes automated count (number/volume) 9.1 10*3/ uL 4.3-11.0 Blood erythrocytes automated count (number/volume) 3.79 10*6 /uL 4.35-5.85 Venous blood hemoglobin measurement (mass/volume) 11.8 g/dL 11.5-16.0 Blood hematocrit (volume fraction) 35 % 35-52 Automated erythrocyte mean corpuscular volume 93 [foz_us] 80-99 Automated erythrocyte mean corpuscular hemoglobin (mass per erythrocyte) 31 pg 25-34 Automated erythrocyte mean corpuscular hemoglobin concentration measurement ( mass/volume) 33 g/dL 32-36 Automated erythrocyte distribution width ratio 13.2 % 10.0-14.5 Automated blood platelet count (count/volume) 227 10*3/uL 130-400 Automated blood platelet mean volume measurement 10.2 [foz_ us] 7.4-10.4 Automated blood neutrophils/100 leukocytes 84 % 42-75 Automated blood lymphocytes/100 leukocytes 11 % 12-44 Blood monocytes/100 leukocytes 4 % 0-12 Automated blood eosinophils/100 leukocytes 0 % 0-10 Automated blood basophils/100 leukocytes 0 % 0-10 Blood neutrophils automated count (number/volume) 7.7 10*3 1.8-7.8 Blood lymphocytes automated count (number/volume) 1.0 10*3 1.0-4.0 Blood monocytes automated count (number/volume) 0.4 10*3 0.0-1.0 Automated eosinophil count 0.0 10*3/uL 0.0-0.3 Automated blood basophil count (count/volume) 0.0 10*3/uL 0.0-0.1 PT panel in platelet poor plasma by coagulation assay - 02/25/16 03:55 Prothrombin time (PT) in platelet poor plasma by coagulation assay 15.7 s 12.2-14.7 INR in platelet poor plasma or blood by coagulation assay 1.3 0.8-1.4 Activated partial thromboplastin time (aPTT) in platelet poor plasma bycoagulation assay - 02/25/16 03:55 Activated partial thromboplastin time (aPTT) in platelet poor plasma bycoagulation assay 37 s 24-35 Comprehensive metabolic panel - 02/25/16 03:55 Serum or plasma sodium measurement (moles/volume) 141 mmol/ L 135-145 Serum or plasma potassium measurement (moles/volume) 3.5 mmol/L 3.6-5.0 Serum or plasma chloride measurement (moles/volume) 108 mmol /L 98-107 Carbon dioxide 24 mmol/L 21-32 Serum or plasma anion gap determination (moles/volume) 9 mmol/L 5-14 Serum or plasma urea nitrogen measurement (mass/volume) 37 mg/dL 7-18 Serum or plasma creatinine measurement (mass/volume) 0.91 mg /dL 0.60-1.30 Serum or plasma urea nitrogen/creatinine mass ratio 41 NRG Serum or plasma creatinine measurement with calculation of estimated glomerular filtration rate > NRG Serum or plasma glucose measurement (mass/volume) 167 mg/dL 70-105 Serum or plasma calcium measurement (mass/volume) 8.1 mg/dL 8.5-10.1 Serum or plasma total bilirubin measurement (mass/volume) 0.2 mg/dL 0.1-1.0 Serum or plasma alkaline phosphatase measurement (enzymatic activity/volume) 45 U/L 40-136 Serum or plasma aspartate aminotransferase measurement (enzymatic activity/ volume) 15 U/L 5-34 Serum or plasma alanine aminotransferase measurement (enzymatic activity/volume ) 11 U/L 0-55 Serum or plasma protein measurement (mass/volume) 6.1 g/dL 6.4-8.2 Serum or plasma albumin measurement (mass/volume) 2.8 g/dL 3.2-4.5 Serum or plasma phosphate measurement (mass/volume) - 02/25/16 03:55 Serum or plasma phosphate measurement (mass/volume) 3.1 mg/ dL 2.3-4.7 Magnesium - 02/25/16 03:55 Magnesium 1.6 mg/dL 1.8-2.4 Complete urinalysis with reflex to culture - 05/09/16 13:57 Urine color determination YELLOW NRG Urine clarity determination SLIGHTLY CLOUDY NRG Urine pH measurement by test strip 5 5- 9 Specific gravity of urine by test strip 1.025 1.016-1.022 Urine protein assay by test strip, semi-quantitative 3+ NEGATIVE Urine glucose detection by automated test strip NEGATIVE NEGATIVE Erythrocytes detection in urine sediment by light microscopy 5+ NEGATIVE Urine ketones detection by automated test strip 1+ NEGATIVE Urine nitrite detection by test strip NEGATIVE NEGATIVE Urine total bilirubin detection by test strip 1+ NEGATIVE Urine urobilinogen measurement by automated test strip (mass/volume) 1 mg/dL NORMAL Urine leukocyte esterase detection by dipstick 3+ NEGATIVE Automated urine sediment erythrocyte count by microscopy (number/high power field) [HPF] NRG Automated urine sediment leukocyte count by microscopy (number/high power field ) [HPF] NRG Bacteria detection in urine sediment by light microscopy LARGE NRG Squamous epithelial cells detection in urine sediment by light microscopy 25-50 NRG Crystals detection in urine sediment by light microscopy NONE NRG Casts detection in urine sediment by light microscopy NONE NRG Mucus detection in urine sediment by light microscopy NEGATIVE NRG Complete urinalysis with reflex to culture YES NRG Bacterial urine culture - 05/09/16 13:57 Bacterial urine culture [id number] NRG COLONY COUNT 10,000/ML - 100,000/ML NRG FREE TEXT ENTRY 2 AT LEAST 3 OTHER GRAM POSITIVE ISOLATES NRG Complete blood count (CBC) with automated white blood cell (WBC) differential - 05/09/16 14:23 Blood leukocytes automated count (number/volume) 11.2 10*3/ uL 4.3-11.0 Blood erythrocytes automated count (number/volume) 4.62 10*6 /uL 4.35-5.85 Venous blood hemoglobin measurement (mass/volume) 13.6 g/dL 11.5-16.0 Blood hematocrit (volume fraction) 41 % 35-52 Automated erythrocyte mean corpuscular volume 88 [foz_us] 80-99 Automated erythrocyte mean corpuscular hemoglobin (mass per erythrocyte) 29 pg 25-34 Automated erythrocyte mean corpuscular hemoglobin concentration measurement ( mass/volume) 34 g/dL 32-36 Automated erythrocyte distribution width ratio 13.4 % 10.0-14.5 Automated blood platelet count (count/volume) 361 10*3/uL 130-400 Automated blood platelet mean volume measurement 9.3 [foz_us ] 7.4-10.4 Automated blood neutrophils/100 leukocytes 74 % 42-75 Automated blood lymphocytes/100 leukocytes 16 % 12-44 Blood monocytes/100 leukocytes 7 % 0-12 Automated blood eosinophils/100 leukocytes 2 % 0-10 Automated blood basophils/100 leukocytes 0 % 0-10 Blood neutrophils automated count (number/volume) 8.3 10*3 1.8-7.8 Blood lymphocytes automated count (number/volume) 1.8 10*3 1.0-4.0 Blood monocytes automated count (number/volume) 0.8 10*3 0.0-1.0 Automated eosinophil count 0.3 10*3/uL 0.0-0.3 Automated blood basophil count (count/volume) 0.0 10*3/uL 0.0-0.1 Comprehensive metabolic panel - 05/09/16 14:23 Serum or plasma sodium measurement (moles/volume) 140 mmol/ L 135-145 Serum or plasma potassium measurement (moles/volume) 4.4 mmol/L 3.6-5.0 Serum or plasma chloride measurement (moles/volume) 102 mmol /L 98-107 Carbon dioxide 25 mmol/L 21-32 Serum or plasma anion gap determination (moles/volume) 13 mmol/L 5-14 Serum or plasma urea nitrogen measurement (mass/volume) 24 mg/dL 7-18 Serum or plasma creatinine measurement (mass/volume) 1.23 mg /dL 0.60-1.30 Serum or plasma urea nitrogen/creatinine mass ratio 20 NRG Serum or plasma creatinine measurement with calculation of estimated glomerular filtration rate 45 NRG Serum or plasma glucose measurement (mass/volume) 161 mg/dL 70-105 Serum or plasma calcium measurement (mass/volume) 9.9 mg/dL 8.5-10.1 Serum or plasma total bilirubin measurement (mass/volume) 0.7 mg/dL 0.1-1.0 Serum or plasma alkaline phosphatase measurement (enzymatic activity/volume) 67 U/L 40-136 Serum or plasma aspartate aminotransferase measurement (enzymatic activity/ volume) 12 U/L 5-34 Serum or plasma alanine aminotransferase measurement (enzymatic activity/volume ) 7 U/L 0-55 Serum or plasma protein measurement (mass/volume) 7.4 g/dL 6.4-8.2 Serum or plasma albumin measurement (mass/volume) 3.4 g/dL 3.2-4.5 Complete blood count (CBC) with automated white blood cell (WBC) differential - 05/16/16 00:35 Blood leukocytes automated count (number/volume) 10.0 10*3/ uL 4.3-11.0 Blood erythrocytes automated count (number/volume) 4.45 10*6 /uL 4.35-5.85 Venous blood hemoglobin measurement (mass/volume) 13.0 g/dL 11.5-16.0 Blood hematocrit (volume fraction) 39 % 35-52 Automated erythrocyte mean corpuscular volume 87 [foz_us] 80-99 Automated erythrocyte mean corpuscular hemoglobin (mass per erythrocyte) 29 pg 25-34 Automated erythrocyte mean corpuscular hemoglobin concentration measurement ( mass/volume) 33 g/dL 32-36 Automated erythrocyte distribution width ratio 13.7 % 10.0-14.5 Automated blood platelet count (count/volume) 355 10*3/uL 130-400 Automated blood platelet mean volume measurement 9.1 [foz_us ] 7.4-10.4 Automated blood neutrophils/100 leukocytes 54 % 42-75 Automated blood lymphocytes/100 leukocytes 34 % 12-44 Blood monocytes/100 leukocytes 8 % 0-12 Automated blood eosinophils/100 leukocytes 4 % 0-10 Automated blood basophils/100 leukocytes 0 % 0-10 Blood neutrophils automated count (number/volume) 5.4 10*3 1.8-7.8 Blood lymphocytes automated count (number/volume) 3.4 10*3 1.0-4.0 Blood monocytes automated count (number/volume) 0.8 10*3 0.0-1.0 Automated eosinophil count 0.4 10*3/uL 0.0-0.3 Automated blood basophil count (count/volume) 0.0 10*3/uL 0.0-0.1 Comprehensive metabolic panel - 05/16/16 00:35 Serum or plasma sodium measurement (moles/volume) 140 mmol/ L 135-145 Serum or plasma potassium measurement (moles/volume) 4.0 mmol/L 3.6-5.0 Serum or plasma chloride measurement (moles/volume) 104 mmol /L 98-107 Carbon dioxide 25 mmol/L 21-32 Serum or plasma anion gap determination (moles/volume) 11 mmol/L 5-14 Serum or plasma urea nitrogen measurement (mass/volume) 25 mg/dL 7-18 Serum or plasma creatinine measurement (mass/volume) 1.40 mg /dL 0.60-1.30 Serum or plasma urea nitrogen/creatinine mass ratio 18 NRG Serum or plasma creatinine measurement with calculation of estimated glomerular filtration rate 39 NRG Serum or plasma glucose measurement (mass/volume) 140 mg/dL 70-105 Serum or plasma calcium measurement (mass/volume) 9.2 mg/dL 8.5-10.1 Serum or plasma total bilirubin measurement (mass/volume) 0.5 mg/dL 0.1-1.0 Serum or plasma alkaline phosphatase measurement (enzymatic activity/volume) 61 U/L 40-136 Serum or plasma aspartate aminotransferase measurement (enzymatic activity/ volume) 14 U/L 5-34 Serum or plasma alanine aminotransferase measurement (enzymatic activity/volume ) 14 U/L 0-55 Serum or plasma protein measurement (mass/volume) 7.0 g/dL 6.4-8.2 Serum or plasma albumin measurement (mass/volume) 3.4 g/dL 3.2-4.5 Complete urinalysis with reflex to culture - 05/16/16 00:37 Urine color determination YELLOW NRG Urine clarity determination CLOUDY NRG Urine pH measurement by test strip 6 5- 9 Specific gravity of urine by test strip 1.020 1.016-1.022 Urine protein assay by test strip, semi-quantitative 1+ NEGATIVE Urine glucose detection by automated test strip NEGATIVE NEGATIVE Erythrocytes detection in urine sediment by light microscopy 3+ NEGATIVE Urine ketones detection by automated test strip NEGATIVE NEGATIVE Urine nitrite detection by test strip NEGATIVE NEGATIVE Urine total bilirubin detection by test strip NEGATIVE NEGATIVE Urine urobilinogen measurement by automated test strip (mass/volume) NORMAL NORMAL Urine leukocyte esterase detection by dipstick 3+ NEGATIVE Automated urine sediment erythrocyte count by microscopy (number/high power field) [HPF] NRG Automated urine sediment leukocyte count by microscopy (number/high power field ) [HPF] NRG Bacteria detection in urine sediment by light microscopy FEW NRG Squamous epithelial cells detection in urine sediment by light microscopy 10-25 NRG Crystals detection in urine sediment by light microscopy NONE NRG Casts detection in urine sediment by light microscopy NONE NRG Mucus detection in urine sediment by light microscopy NEGATIVE NRG Complete urinalysis with reflex to culture YES NRG Bacterial urine culture - 05/16/16 00:37 URINE CULTURE RESULTS <10,000/ML NRG Complete blood count (CBC) with automated white blood cell (WBC) differential - 05/26/16 10:36 Blood leukocytes automated count (number/volume) 10.7 10*3/ uL 4.3-11.0 Blood erythrocytes automated count (number/volume) 4.67 10*6 /uL 4.35-5.85 Venous blood hemoglobin measurement (mass/volume) 13.7 g/dL 11.5-16.0 Blood hematocrit (volume fraction) 41 % 35-52 Automated erythrocyte mean corpuscular volume 87 [foz_us] 80-99 Automated erythrocyte mean corpuscular hemoglobin (mass per erythrocyte) 29 pg 25-34 Automated erythrocyte mean corpuscular hemoglobin concentration measurement ( mass/volume) 34 g/dL 32-36 Automated erythrocyte distribution width ratio 14.9 % 10.0-14.5 Automated blood platelet count (count/volume) 224 10*3/uL 130-400 Automated blood platelet mean volume measurement 9.7 [foz_us ] 7.4-10.4 Automated blood neutrophils/100 leukocytes 81 % 42-75 Automated blood lymphocytes/100 leukocytes 10 % 12-44 Blood monocytes/100 leukocytes 8 % 0-12 Automated blood eosinophils/100 leukocytes 0 % 0-10 Automated blood basophils/100 leukocytes 0 % 0-10 Blood neutrophils automated count (number/volume) 8.7 10*3 1.8-7.8 Blood lymphocytes automated count (number/volume) 1.1 10*3 1.0-4.0 Blood monocytes automated count (number/volume) 0.9 10*3 0.0-1.0 Automated eosinophil count 0.0 10*3/uL 0.0-0.3 Automated blood basophil count (count/volume) 0.0 10*3/uL 0.0-0.1 PT panel in platelet poor plasma by coagulation assay - 05/26/16 10:36 Prothrombin time (PT) in platelet poor plasma by coagulation assay 16.2 s 12.2-14.7 INR in platelet poor plasma or blood by coagulation assay 1.3 0.8-1.4 Activated partial thromboplastin time (aPTT) in platelet poor plasma bycoagulation assay - 05/26/16 10:36 Activated partial thromboplastin time (aPTT) in platelet poor plasma bycoagulation assay 33 s 24-35 Comprehensive metabolic panel - 05/26/16 10:36 Serum or plasma sodium measurement (moles/volume) 138 mmol/ L 135-145 Serum or plasma potassium measurement (moles/volume) 4.1 mmol/L 3.6-5.0 Serum or plasma chloride measurement (moles/volume) 102 mmol /L 98-107 Carbon dioxide 21 mmol/L 21-32 Serum or plasma anion gap determination (moles/volume) 15 mmol/L 5-14 Serum or plasma urea nitrogen measurement (mass/volume) 21 mg/dL 7-18 Serum or plasma creatinine measurement (mass/volume) 1.47 mg /dL 0.60-1.30 Serum or plasma urea nitrogen/creatinine mass ratio 14 NRG Serum or plasma creatinine measurement with calculation of estimated glomerular filtration rate 37 NRG Serum or plasma glucose measurement (mass/volume) 160 mg/dL 70-105 Serum or plasma calcium measurement (mass/volume) 9.7 mg/dL 8.5-10.1 Serum or plasma total bilirubin measurement (mass/volume) 1.2 mg/dL 0.1-1.0 Serum or plasma alkaline phosphatase measurement (enzymatic activity/volume) 62 U/L 40-136 Serum or plasma aspartate aminotransferase measurement (enzymatic activity/ volume) 86 U/L 5-34 Serum or plasma alanine aminotransferase measurement (enzymatic activity/volume ) 31 U/L 0-55 Serum or plasma protein measurement (mass/volume) 7.3 g/dL 6.4-8.2 Serum or plasma albumin measurement (mass/volume) 3.8 g/dL 3.2-4.5 Magnesium - 05/26/16 10:36 Magnesium 2.7 mg/dL 1.8-2.4 Complete urinalysis with reflex to culture - 07/24/16 08:07 Urine color determination YELLOW NRG Urine clarity determination SLIGHTLY CLOUDY NRG Urine pH measurement by test strip 6.5 5 -9 Specific gravity of urine by test strip 1.015 1.016-1.022 Urine protein assay by test strip, semi-quantitative 1+ NEGATIVE Urine glucose detection by automated test strip NEGATIVE NEGATIVE Erythrocytes detection in urine sediment by light microscopy 1+ NEGATIVE Urine ketones detection by automated test strip NEGATIVE NEGATIVE Urine nitrite detection by test strip NEGATIVE NEGATIVE Urine total bilirubin detection by test strip NEGATIVE NEGATIVE Urine urobilinogen measurement by automated test strip (mass/volume) NORMAL NORMAL Urine leukocyte esterase detection by dipstick 3+ NEGATIVE Automated urine sediment erythrocyte count by microscopy (number/high power field) RARE NRG Automated urine sediment leukocyte count by microscopy (number/high power field ) [HPF] NRG Bacteria detection in urine sediment by light microscopy MODERATE NRG Squamous epithelial cells detection in urine sediment by light microscopy 25-50 NRG Crystals detection in urine sediment by light microscopy NONE NRG Casts detection in urine sediment by light microscopy NONE NRG Mucus detection in urine sediment by light microscopy NEGATIVE NRG Complete urinalysis with reflex to culture YES NRG Urine protein/creatinine mass ratio - 07/24/16 08:07 Urine protein measurement (mass/volume) 18 mg/dL 6-12 Urine creatinine measurement (mass/volume) 99 mg/dL 30-125 Urine protein/creatinine mass ratio 0.18 NRG Bacterial urine culture - 07/24/16 08:07 URINE CULTURE RESULTS <10,000/ML NRG Automated blood complete blood count (hemogram) panel - 07/24/16 08:10 Blood leukocytes automated count (number/volume) 8.5 10*3/ uL 4.3-11.0 Blood erythrocytes automated count (number/volume) 4.77 10*6 /uL 4.35-5.85 Venous blood hemoglobin measurement (mass/volume) 14.3 g/dL 11.5-16.0 Blood hematocrit (volume fraction) 41 % 35-52 Automated erythrocyte mean corpuscular volume 87 [foz_us] 80-99 Automated erythrocyte mean corpuscular hemoglobin (mass per erythrocyte) 30 pg 25-34 Automated erythrocyte mean corpuscular hemoglobin concentration measurement ( mass/volume) 35 g/dL 32-36 Automated erythrocyte distribution width ratio 15.3 % 10.0-14.5 Automated blood platelet count (count/volume) 225 10*3/uL 130-400 Automated blood platelet mean volume measurement 9.3 [foz_us ] 7.4-10.4 Serum or plasma renal function panel (Na, K, Cl, CO2, BUN, Cr, glucose,Ca, phos , alb) - 07/24/16 08:10 Serum or plasma sodium measurement (moles/volume) 141 mmol/ L 135-145 Serum or plasma potassium measurement (moles/volume) 4.0 mmol/L 3.6-5.0 Serum or plasma chloride measurement (moles/volume) 105 mmol /L 98-107 Carbon dioxide 24 mmol/L 21-32 Serum or plasma anion gap determination (moles/volume) 12 mmol/L 5-14 Serum or plasma urea nitrogen measurement (mass/volume) 22 mg/dL 7-18 Serum or plasma creatinine measurement (mass/volume) 1.13 mg /dL 0.60-1.30 Serum or plasma urea nitrogen/creatinine mass ratio 19 NRG Serum or plasma creatinine measurement with calculation of estimated glomerular filtration rate 49 NRG Serum or plasma glucose measurement (mass/volume) 116 mg/dL 70-105 Serum or plasma calcium measurement (mass/volume) 9.6 mg/dL 8.5-10.1 Serum or plasma albumin measurement (mass/volume) 3.9 g/dL 3.2-4.5 Serum or plasma phosphate measurement (mass/volume) 4.3 mg/ dL 2.3-4.7 Serum or plasma uric acid measurement (mass/volume) - 07/24/16 08:10 Serum or plasma uric acid measurement (mass/volume) 8.8 mg/ dL 2.6-7.2 Magnesium - 07/24/16 08:10 Magnesium 2.0 mg/dL 1.8-2.4 Lipid 1996 panel - 07/24/16 08:10 Serum or plasma triglyceride measurement (mass/volume) 194 mg/dL <150 Serum or plasma cholesterol measurement (mass/volume) 170 mg /dL < 200 Serum or plasma cholesterol in HDL measurement (mass/volume) 32 mg/dL 40-60 Cholesterol in LDL [mass/volume] in serum or plasma by direct assay 109 mg/dL 1-129 Serum or plasma cholesterol in VLDL measurement (mass/volume) 39 mg/dL 5-40 Hemoglobin A1c - 07/24/16 08:10 Hemoglobin A1c 5.0 % 4.5-6.2 Serum or plasma intact pararthyroid hormone measurement (mass/volume) - 08:10 Serum or plasma intact parathyroid hormone measurement (mass/volume) 53 pg/mL 10-65 Bio-intact parathyroid hormone (PTH) measurement with calcium 9.5 % 8.5-10.5 25-hydroxyvitamin D measurement - 07/24/16 08:10 25-hydroxy vitamin D measurement 61 % 30- 100 Complete blood count (CBC) with automated white blood cell (WBC) differential - 10/25/16 10:39 Blood leukocytes automated count (number/volume) 8.3 10*3/ uL 4.3-11.0 Blood erythrocytes automated count (number/volume) 4.50 10*6 /uL 4.35-5.85 Venous blood hemoglobin measurement (mass/volume) 13.7 g/dL 11.5-16.0 Blood hematocrit (volume fraction) 39 % 35-52 Automated erythrocyte mean corpuscular volume 87 [foz_us] 80-99 Automated erythrocyte mean corpuscular hemoglobin (mass per erythrocyte) 30 pg 25-34 Automated erythrocyte mean corpuscular hemoglobin concentration measurement ( mass/volume) 35 g/dL 32-36 Automated erythrocyte distribution width ratio 14.6 % 10.0-14.5 Automated blood platelet count (count/volume) 208 10*3/uL 130-400 Automated blood platelet mean volume measurement 9.6 [foz_us ] 7.4-10.4 Automated blood neutrophils/100 leukocytes 73 % 42-75 Automated blood lymphocytes/100 leukocytes 16 % 12-44 Blood monocytes/100 leukocytes 9 % 0-12 Automated blood eosinophils/100 leukocytes 1 % 0-10 Automated blood basophils/100 leukocytes 0 % 0-10 Blood neutrophils automated count (number/volume) 6.1 10*3 1.8-7.8 Blood lymphocytes automated count (number/volume) 1.4 10*3 1.0-4.0 Blood monocytes automated count (number/volume) 0.8 10*3 0.0-1.0 Automated eosinophil count 0.1 10*3/uL 0.0-0.3 Automated blood basophil count (count/volume) 0.0 10*3/uL 0.0-0.1 PT panel in platelet poor plasma by coagulation assay - 10/25/16 10:39 Prothrombin time (PT) in platelet poor plasma by coagulation assay 15.8 s 12.2-14.7 INR in platelet poor plasma or blood by coagulation assay 1.3 0.8-1.4 Comprehensive metabolic panel - 10/25/16 10:39 Serum or plasma sodium measurement (moles/volume) 137 mmol/ L 135-145 Serum or plasma potassium measurement (moles/volume) 4.4 mmol/L 3.6-5.0 Serum or plasma chloride measurement (moles/volume) 105 mmol /L 98-107 Carbon dioxide 19 mmol/L 21-32 Serum or plasma anion gap determination (moles/volume) 13 mmol/L 5-14 Serum or plasma urea nitrogen measurement (mass/volume) 20 mg/dL 7-18 Serum or plasma creatinine measurement (mass/volume) 1.35 mg /dL 0.60-1.30 Serum or plasma urea nitrogen/creatinine mass ratio 15 NRG Serum or plasma creatinine measurement with calculation of estimated glomerular filtration rate 40 NRG Serum or plasma glucose measurement (mass/volume) 145 mg/dL 70-105 Serum or plasma calcium measurement (mass/volume) 9.1 mg/dL 8.5-10.1 Serum or plasma total bilirubin measurement (mass/volume) 1.0 mg/dL 0.1-1.0 Serum or plasma alkaline phosphatase measurement (enzymatic activity/volume) 68 U/L 40-136 Serum or plasma aspartate aminotransferase measurement (enzymatic activity/ volume) 21 U/L 5-34 Serum or plasma alanine aminotransferase measurement (enzymatic activity/volume ) 13 U/L 0-55 Serum or plasma protein measurement (mass/volume) 7.4 g/dL 6.4-8.2 Serum or plasma albumin measurement (mass/volume) 3.5 g/dL 3.2-4.5 Complete urinalysis with reflex to culture - 10/25/16 10:57 Urine color determination YELLOW NRG Urine clarity determination VERY CLOUDY NRG Urine pH measurement by test strip 6 5- 9 Specific gravity of urine by test strip 1.010 1.016-1.022 Urine protein assay by test strip, semi-quantitative 3+ NEGATIVE Urine glucose detection by automated test strip NEGATIVE NEGATIVE Erythrocytes detection in urine sediment by light microscopy 5+ NEGATIVE Urine ketones detection by automated test strip NEGATIVE NEGATIVE Urine nitrite detection by test strip POSITIVE NEGATIVE Urine total bilirubin detection by test strip NEGATIVE NEGATIVE Urine urobilinogen measurement by automated test strip (mass/volume) NORMAL NORMAL Urine leukocyte esterase detection by dipstick 3+ NEGATIVE Automated urine sediment erythrocyte count by microscopy (number/high power field) NONE NRG Automated urine sediment leukocyte count by microscopy (number/high power field ) TNTC NRG Bacteria detection in urine sediment by light microscopy LARGE NRG Crystals detection in urine sediment by light microscopy NONE NRG Casts detection in urine sediment by light microscopy NONE NRG Mucus detection in urine sediment by light microscopy SMALL NRG Complete urinalysis with reflex to culture YES NRG Bacterial urine culture - 10/25/16 10:57 Bacterial urine culture [id number] NRG COLONY COUNT >100,000/ML NR FTX;REPORTABLE SENSITIVITY REPORTED AT 1647, 4-05-04 NR URINE CULTURE RESULTS PLUS NR Bacterial susceptibility panel - 10/25/16 10:57 Gentamicin susceptibility test by minimum inhibitory concentration >= NRG Trimethoprim/sulfamethoxazole susceptibility test by minimum inhibitoryconcentration >= NRG Ampicillin susceptibility test by minimum inhibitory concentration >= NRG Tobramycin susceptibility test by minimum inhibitory concentration 2 NRG Cefazolin susceptibility test by minimum inhibitory concentration <= NRG Ceftriaxone susceptibility test by minimum inhibitory concentration <= NRG Ampicillin/sulbactam susceptibility test by minimum inhibitory concentration 16 NRG Piperacillin/tazobactam susceptibility test by minimum inhibitory concentration <= NRG Ciprofloxacin susceptibility test by minimum inhibitory concentration <= NRG Meropenem susceptibility test by minimum inhibitory concentration <= NRG Nitrofurantoin susceptibility test by minimum inhibitory concentration 32 NRG Aztreonam susceptibility test by minimum inhibitory concentration <= NRG Extended spectrum beta lactamase (ESBL) producing bacteria susceptibility test by minimum inhibitory concentration - NRG Encounters ACCT No. Visit Date/Time Discharge Status Pt. Type Provider Facility Loc./Unit Complaint [id number] 11/04/2016 17:53:00 2016 19:00:00 DIS Emergency REESE KIM MD [facility] ER MIGRAINE X3 TODAY [id number] 10/25/2016 10:13:00 2016 13:28:00 DIS Emergency REESE KIM MD [facility] ER CHRONIC UTI [id number] 05/26/2016 09:33:00 2015 13:38:00 DIS Emergency PRIETO NINA MD [facility] ER RECTAL BLEEDING [id number] 05/24/2016 22:07:00 2015 23:46:00 DIS Emergency JIM BASURTO DO [facility] ER CONSTIPATION WITH BLEEDING [id number] 05/15/2016 23:22:00 2015 01:58:00 DIS Emergency LOUISE DURBIN DO [facility] ER AMS [id number] 05/09/2016 12:40:00 2015 15:45:00 DIS Emergency THELMA MAR [facility] ER SHARP FEET PAIN AND R KNEE PAIN [id number] 02/22/2016 22:16:00 2015 11:30:00 DIS Inpatient VERONICA ROQUE MD [facility] ICU INTRACTABLE PAIN FROM PERIPHERAL NEUROPATHY [id number] 06/23/2013 07:22:00 2012 23:59:59 CLS Outpatient CARIE CAMARENA MD [facility] RAD ABNORMAL MAMMO [id number] 06/07/2013 07:04:00 2012 23:59:59 CLS Outpatient OSULLIVAN TOPHER Emam [place] [facility] RAD SCREENING [id number] 07/24/2016 07:52:00 ACT Outpatient JIM PIZANO IMMUNOHEMATOLOGIST-C [facility] LAB KIDNEY DISEASE,PROTEINURIA,DIABETES; [id number] 06/01/2016 07:50:00 ACT Outpatient FRANCI MENDOZA MD [facility] RAD BILAT RENAL STONES,REC. UTI [id number] 04/14/2016 08:28:00 ACT Outpatient JIM PIZANO NP-C [facility] RAD N18.3,R80.9,E11.29 [id number] 03/25/2016 08:25:00 Document Registration [id number] 03/13/2016 14:43:00 Document Registration [id number] 03/13/2016 14:43:00 Document Registration [id number] 03/13/2016 14:43:00 Document Registration [id number] 03/10/2016 11:19:00 ACT Outpatient JAELYN KAY FACC, ALI FACP CCDS [facility] CARD CHRONIC ATRIAL FIB,CHEST DISCOMFORT,DMII, SOB [id number] 03/06/2016 14:02:00 ACT Outpatient JAELYN KAY FACC, ALI FACP CCDS [facility] CARD I48.2,CHEST DISCOMFORT,DM II,LEG SWELLING [id number] 03/06/2016 07:37:00 ACT Outpatient JAELYN KAY FACC, ALI FACP CCDS [facility] LAB CHEST DISCOMFORT,LEG SWELLING [id number] 02/10/2016 06:36:00 ACT Outpatient ARIAS GONZALES [facility] RAD RUQ PAIN [id number] 02/07/2016 07:58:00 ACT Outpatient ARIAS GONZALESP [facility] LAB ELEVATED WBC COUNT [id number] 01/21/2016 07:28:00 ACT Outpatient VERONICA ROQUE MD [facility] RAD SCREENING [id number] 01/21/2016 07:27:00 Document Registration [id number] 01/05/2012 10:24:00 Document Registration [id number] 12/28/2011 07:41:00 Document Registration [id number] 12/03/2011 06:33:00 Document Registration [id number] 10/16/2010 07:07:00 Document Registration [id number] 04/10/2010 08:33:00 Document Registration [id number] 10/31/2008 13:26:00 Document Registration [id number] 10/03/2008 08:40:00 Document Registration [id number] 09/25/2008 10:49:00 Document Registration [id number] 05/16/2008 08:39:00 Document Registration [id number] 02/20/2008 09:17:00 Document Registration [id number] 02/20/2008 09:13:00 Document Registration [id number] 12/26/2007 07:02:00 Document Registration [id number] 12/21/2006 10:11:00 Document Registration [id number] 12/01/2005 11:37:00 Document Registration
== END 2016-10-25 13:28 | disposition home or self-care (01) ==
LOC: EDUNIT# 10:11 → ER 10:13
DX: N30.91 Cystitis, unspecified with hematuria (principal); N20.0 Calculus of kidney; K80.20 Calculus of gallbladder without cholecystitis without obstruction; K57.30 Diverticulosis of large intestine without perforation or abscess without bleeding; M47.816 Spondylosis without myelopathy or radiculopathy, lumbar region; I12.9 Hypertensive chronic kidney disease with stage 1 through stage 4 chronic kidney disease, or unspecified chronic kidney disease; N18.3 Chronic kidney disease, stage 3 (moderate); E11.9 Type 2 diabetes mellitus without complications; Z79.01 Long term (current) use of anticoagulants; Z79.84 Long term (current) use of oral hypoglycemic drugs; Z79.899 Other long term (current) drug therapy
CPT/HCPCS: 36415; 74176; 80053; 81000; 85027; 85610; 87077; 87088; 87186; 96374

== ENCOUNTER 2016-11-04 17:52 | Emergency (ER) | payer MEDICARE ==
[~2016-11-04] VITALS: Ht 175.3 cm; Wt 126.3 kg
[~2016-11-04 17:52] MED LIST changes: +CEPH500T PO; +TRIM100T7 PO
--- NOTE | 2016-11-04 18:46 | ED Headache ---
General Chief Complaint: Head/Cervical Problems Stated Complaint: MIGRAINE X3 TODAY Nursing Triage Note: PT STATES A HX OF OCCULAR MIGRAINES, HAS HAD 3 TODAY EACH LASTED FOR 2-3 MINUTES. FIRST ONE ABOUT 1400 AND LAST ONE WAS ABOUT 1600. RECENT UTI, FINISHED ABX LAST WEDNESDAY. HX OF SEPSIS LAST YEAR. 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 Most recently she has had three 2 minute long headaches between the 2:00 and 4:00 this afternoon. She is more concerned about the fact that she is been dizzy today and any Sudden Movement Causes the Room to Spin around Her and She Feels off Balance. She has never Had This before. She Does Not Take Any Medicines for Her Migraines. She Has Not Taken Any Prophylactics to Prevent Migraines. She Is Followed by Her Primary Care Physician. She Says She Was Referred to an Ear Doctor before to Do Some Kind of Bending Exercises but She Never Completed Them Because They Made Her Dizzy. Allergies and Home Medications Allergies Coded Allergies: Iodinated Contrast Media - Oral and (Unverified Allergy, Unknown, 05/16/16 ) WHEEL PRESSER DOES NOT WANT HER TAKING NSAIDS (Non-Steroidal Anti-Inflamma (Unverified Allergy, Unknown, 05/16/16 ) WHEEL PRESSER DOES NOT WANT HER TAKING sulfamethoxazole (Unverified Allergy, Unknown, 05/16/16) WHEEL PRESSER DOES NOT WANT HER TAKING trimethoprim (Unverified Allergy, Unknown, 05/16/16) WHEEL PRESSER DOES NOT WANT HER TAKING Home Medications Alprazolam 1 Mg Tablet, 1 MG PO TID, (Reported) Apixaban 5 Mg Tablet, 5 MG PO BID, (Reported) Ascorbic Acid 500 Mg Capsule.er, 500 MG PO DAILY, (Reported) Atenolol 50 Mg Tablet, 50 MG PO BID, (Reported) Cephalexin 500 Mg Tablet, 500 MG PO TID for 7 Days, #21 Ref 0 Prescribed by: REESE KIM on 10/25/16 1416 Cephalexin 500 Mg Tablet, 500 MG PO BID for 7 Days, #14 Ref 0 Prescribed by: REESE KIM on 10/25/16 1246 Cholecalciferol (Vitamin D3) 50,000 Unit Capsule, 50,000 UNIT PO Heard, (Reported) Cyanocobalamin (Vitamin B-12) 5,000 Mcg/1 Ml Drops, 0.33 ML SL DAILY, (Reported) Diltiazem HCl 240 Mg Cap.er.24h, 240 MG PO DAILY, (Reported) Docusate Sodium 100 Mg Capsule, 100 MG PO DAILY, (Reported) Folic Acid 0.4 Mg Tablet, 0.4 MG PO HS, (Reported) Furosemide 40 Mg Tablet, 40 MG PO every other day, (Reported) Glimepiride 4 Mg Tablet, 4 MG PO DAILY, (Reported) Glimepiride 4 Mg Tablet, 4 MG PO DAILY, (Reported) Magnesium Oxide 400 Mg Tablet, 400 MG PO DAILY, (Reported) Nitrofurantoin Monohyd/M-Cryst 100 Mg Capsule, 1 TAB PO BID, #20 Ref 0 Prescribed by: LOUISE DURBIN on 05/16/16 0149 Oxybutynin Chloride 10 Mg Tab.er.24, 10 MG PO DAILY, (Reported) Potassium Chloride 10 Meq Tablet.er, 10 MEQ PO every other day, (Reported) Tramadol HCl 50 Mg Tablet, 50 MG PO Q8H PRN for PAIN, #12 Prescribed by: THELMA MAR on 05/09/16 1535 Trimethoprim 100 Mg Tablet, 100 MG PO HS, (Reported) Constitutional: No chills, No fever Eyes: See HPI, Denies Blindness, Denies Pain Ears, Nose, Mouth, Throat: denies ear pain, denies nose pain Respiratory: No cough, No short of breath Cardiovascular: No chest pain, No syncope Gastrointestinal: No abdominal pain, No constipation, No diarrhea Genitourinary: No dysuria, No incontinence Skin: No pruritus, No rash Psychiatric/Neurological: Other (vertigo) Past Obsfvah-Aiupfw-Emykub Hx Patient Social History Alcohol Use: Denies Use Recreational Drug Use: No Smoking Status: Former Smoker Recent Foreign Travel: No Contact w/Someone Who Travel: No Recent Infectious Disease Expo: No Recent Hopitalizations: No (FEB 2016) Immunizations Up To Date Tetanus Booster (TDap): More than 5yrs PED Vaccines UTD: No Seasonal Allergies Seasonal Allergies: No Surgeries HX Surgeries: Yes (RIGHT TOTAL KNEE REPLACEMENT 2009; RIGHT FOOT SURGERY 2009) Surgeries: Section, Joint Replacement, Orthopedic Respiratory Hx Respiratory Disorders: No Cardiovascular Hx Cardiac Disorders: Yes Cardiac Disorders: Atrial Fibrillation, Chronic Edema/Swelling, High Cholesterol, Hypertension Neurological Hx Neurological Disorders: Yes Neurological Disorders: Neuropathy Reproductive System Hx Reproductive Disorders: Yes Sexually Transmitted Disease: No HIV/AIDS: No Female Reproductive Disorders: Denies Genitourinary Hx Genitourinary Disorders: Yes (KIDNEY STONES--NO INTERVENTION) Genitourinary Disorders: Kidney Stones, Renal Failure, UTI-Chronic Gastrointestinal Hx Gastrointestinal Disorders: Yes (SPASTIC COLON) Musculoskeletal Hx Musculoskeletal Disorders: Yes (CHRONIC KNEE AND FOOT PAIN ) Musculoskeletal Disorders: Arthritis, Gout Endocrine Hx Endocrine Disorders: Yes (OBESITY) Endocrine Disorders: Diabetes, Non-Insulin dep HEENT HX ENT Disorders: No Loss of Vision: Denies Hearing Impairment: Denies Cancer Hx Cancer: No Psychosocial Hx Psychiatric Problems: Yes Behavioral Health Disorders: Anxiety Integumentary HX Skin/Integumentary Disorder: No Blood Transfusions Hx Blood Disorders: No Adverse Reaction to a Blood Tr: No Family Medical History Family Medial History: Abdominal aortic aneurysm 19 FATHER, , Onset:60 years & older Diabetes mellitus 19 FATHER, , Onset:Unknown FH: breast cancer 19 MOTHER, Onset:40's - 50 FH: kidney cancer 19 MOTHER, Onset:Unknown FH: uterine cancer 19 MOTHER, Onset:Unknown Myocardial infarction 19 FATHER, , Onset:50's - 60 Physical Exam Vital Signs Vital Sign - Last 12Hours 11/04/16 18:15 Temp 97.3 Pulse 74 Resp 20 B/P (MAP) 122/97 Pulse Ox 98 O2 Delivery Room Air Capillary Refill : Less Than 3 Seconds General Appearance: WD/WN, no apparent distress HEENT: PERRL/EOMI, normal ENT inspection, TMs normal, pharynx normal Neck: non-tender, full range of motion, supple, normal inspection Cardiovascular: normal peripheral pulses, regular rate, rhythm, no edema Respiratory: chest non-tender, lungs clear, normal breath sounds Gastrointestinal: normal bowel sounds, non tender, soft Psychiatric: alert, oriented x 3 Coordination/Gait: other (Sylvester Hallpike Positive on left side. ) Motor/Sensory: no motor deficit, no sensory deficit Skin: normal color, warm/dry Lymphatic: no adenopathy Progress/Results/Core Measures Results/Orders Vital Signs/I&O Vital Sign - Last 12Hours 11/04/16 11/04/16 18:15 19:01 Temp 97.3 97.3 Pulse 74 74 Resp 20 20 B/P (MAP) 122/97 Pulse Ox 98 98 O2 Delivery Room Air Blood Pressure Mean: 105 Progress Note : Progress Note Bob's maneuver done times one eliciting more vertigo patient elected to do more Bob's at home in comfort of her own bed. Departure Impression Impression: Primary Impression: BPPV (benign paroxysmal positional vertigo) Qualified Codes: H81.10 - Benign paroxysmal vertigo, unspecified ear Additional Impression: Head ache Qualified Codes: R51 - Headache Disposition: 01 HOME, SELF-CARE Condition: Stable Departure-Patient Inst. Decision time for Depature: 18:44 Referrals: VERONICA ROQUE MD (PCP/Family) Primary Care Physician Patient Instructions: Vertigo (a Type of Dizziness) (DC) Add. Discharge Instructions: Your chronic migraine headaches may be being triggered by your BPPV, benign paroxysmal positional vertigo. This will probably be helped by doing the Bob maneuvers per the handouts I gave you 3 times daily for the next 2-3 weeks. If they're not getting better please report your primary care physician for referral and appropriate treatment. All discharge instructions reviewed with patient and/or family. Voiced understanding. Copy Copies To 1: VERONICA ROQUE MD, TITUS J Nov 04, 2016 18:46
[2016-11-04 19:01] VITALS: BP 122/97
== END 2016-11-04 19:00 | disposition home or self-care (01) ==
LOC: EDUNIT# 17:52 → ER 17:53
DX: H81.10 Benign paroxysmal vertigo, unspecified ear (principal); E11.9 Type 2 diabetes mellitus without complications; Z79.84 Long term (current) use of oral hypoglycemic drugs
CPT/HCPCS: 99282

== ENCOUNTER → 2017-01-07 | Outpatient (CLI) | payer MEDICARE | DX: I13.10 Hypertensive heart and chronic kidney disease without heart failure, with stage 1 through stage 4 chronic kidney disease, or unspecified chronic kidney disease (principal); N18.3 Chronic kidney disease, stage 3 (moderate); E78.5 Hyperlipidemia, unspecified; E11.29 Type 2 diabetes mellitus with other diabetic kidney complication; E55.9 Vitamin D deficiency, unspecified; R80.9 Proteinuria, unspecified; E87.6 Hypokalemia; I48.0 Paroxysmal atrial fibrillation; E88.09 Other disorders of plasma-protein metabolism, not elsewhere classified; E66.9 Obesity, unspecified; E83.42 Hypomagnesemia; N39.0 Urinary tract infection, site not specified ==

== ENCOUNTER 2017-04-10 09:09 | Emergency (ER) | payer MEDICARE ==
[~2017-04-10] VITALS: Ht 165.1 cm; Wt 136.1 kg
[2017-04-10 09:55] LABS: BILIRUBIN,URINE NEGATIVE (NEGATIVE); KETONES,URINE NEGATIVE (NEGATIVE); LEUKOCYTE ESTERASE ,URINE 3+ (NEGATIVE); NITRITE,URINE POSITIVE (NEGATIVE); PH,URINE 6.5 (5-9); PROTEIN,URINE 4+ (NEGATIVE); UROBILINOGEN,URINE NORMAL (NORMAL)
[2017-04-10 10:08] LABS: WBC,URINE TNTC /HPF
[2017-04-10 10:10] LABS: YEAST,URINE FEW /HPF
--- NOTE | 2017-04-10 10:59 | ED GU-Female ---
General Chief Complaint: -Female Stated Complaint: UTI Nursing Triage Note: ARRIVED VIA AMB WITH COMPLAINTS OF SEVERE BURNING WHEN SHE VOIDS. CHRONIC ISSUE THAT SHE TAKES DAILY DOXY FOR BUT HAS BECAME WORSE IN THE LAST TWO WEEKS AND UNABLE TO GET INTO SEE REJI. Nursing Sepsis Screen: No Definite Risk Source: patient, family Exam Limitations: no limitations History of Present Illness Time seen by provider: 09:45 Initial Comments This 56-year-old white female presents with a history of progressive dysuria and frequency for the last several weeks. The patient is now having severe burning when she voids. The patient has been under the care of who has placed the patient on doxycycline prophylactically. Next Patient denies associated flank pain, fever or chill, hematuria, or significant vaginal discharge. 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 TAKING NSAIDS (Non-Steroidal Anti-Inflamma (Unverified Allergy, Unknown, 05/16/16 ) MAMMAL KEEPER DOES NOT WANT HER TAKING ciprofloxacin (Verified Allergy, Unknown, 04/10/17) levofloxacin (Verified Allergy, Unknown, 04/10/17) sulfamethoxazole (Unverified Allergy, Unknown, 05/16/16) MAMMAL KEEPER DOES NOT WANT HER TAKING trimethoprim (Unverified Allergy, Unknown, 05/16/16) MAMMAL KEEPER DOES NOT WANT HER TAKING Home Medications Alprazolam 1 Mg Tablet, 1 MG PO TID, (Reported) Apixaban 5 Mg Tablet, 5 MG PO BID, (Reported) Ascorbic Acid 500 Mg Capsule.er, 500 MG PO DAILY, (Reported) Atenolol 50 Mg Tablet, 50 MG PO BID, (Reported) Cephalexin 500 Mg Tablet, 500 MG PO TID for 7 Days, #21 Ref 0 Prescribed by: REESE KIM on 10/25/16 1416 Cephalexin 500 Mg Tablet, 500 MG PO BID for 7 Days, #14 Ref 0 Prescribed by: REESE KIM on 10/25/16 1246 Cholecalciferol (Vitamin D3) 50,000 Unit Capsule, 50,000 UNIT PO Heard, (Reported) Cyanocobalamin (Vitamin B-12) 5,000 Mcg/1 Ml Drops, 0.33 ML SL DAILY, (Reported) Diltiazem HCl 240 Mg Cap.er.24h, 240 MG PO DAILY, (Reported) Docusate Sodium 100 Mg Capsule, 100 MG PO DAILY, (Reported) Folic Acid 0.4 Mg Tablet, 0.4 MG PO HS, (Reported) Furosemide 40 Mg Tablet, 40 MG PO every other day, (Reported) Glimepiride 4 Mg Tablet, 4 MG PO DAILY, (Reported) Glimepiride 4 Mg Tablet, 4 MG PO DAILY, (Reported) Magnesium Oxide 400 Mg Tablet, 400 MG PO DAILY, (Reported) Nitrofurantoin Monohyd/M-Cryst 100 Mg Capsule, 1 TAB PO BID, #20 Ref 0 Prescribed by: LOUISE DURBIN on 05/16/16 0149 Oxybutynin Chloride 10 Mg Tab.er.24, 10 MG PO DAILY, (Reported) Potassium Chloride 10 Meq Tablet.er, 10 MEQ PO every other day, (Reported) Tramadol HCl 50 Mg Tablet, 50 MG PO Q8H PRN for PAIN, #12 Prescribed by: THELMA MAR on 05/09/16 1535 Trimethoprim 100 Mg Tablet, 100 MG PO HS, (Reported) Constitutional: No chills, No fever EENTM: no symptoms reported Respiratory: no symptoms reported, No dyspnea on exertion Gastrointestinal: No abdominal pain, No vomiting Genitourinary: burning, discharge Musculoskeletal: No back pain Skin: No change in color, No rash Psychiatric/Neurological: No Symptoms Reported Endocrine: No Symptoms Reported Past Oflznoz-Iipisx-Hbfcql Hx Patient Social History Alcohol Use: Denies Use Recreational Drug Use: No Smoking Status: Never a Smoker Former Smoker, Quit: Oct 17, 1976 Recent Foreign Travel: No Contact w/Someone Who Travel: No Recent Infectious Disease Expo: No Recent Hopitalizations: No (FEB 2016) Immunizations Up To Date Tetanus Booster (TDap): More than 5yrs PED Vaccines UTD: No Seasonal Allergies Seasonal Allergies: No Surgeries History of Surgeries: Yes (RIGHT TOTAL KNEE REPLACEMENT 2009; RIGHT FOOT SURGERY 2009) Surgeries: Section, Joint Replacement, Orthopedic Respiratory History of Respiratory Disorde: No Currently Using CPAP: No Currently Using BIPAP: No Cardiovascular History of Cardiac Disorders: Yes Cardiac Disorders: Atrial Fibrillation, Chronic Edema/Swelling, High Cholesterol, Hypertension Neurological History of Neurological Disord: Yes Neurological Disorders: Neuropathy Reproductive System Hx Reproductive Disorders: Yes Sexually Transmitted Disease: No HIV/AIDS: No Female Reproductive Disorders: Denies Genitourinary Genitourinary Disorders: Kidney Stones, Renal Failure, UTI-Chronic Gastrointestinal History of Gastrointestinal Di: Yes (SPASTIC COLON) Musculoskeletal History of Musculoskeletal Dis: Yes (CHRONIC KNEE AND FOOT PAIN ) Musculoskeletal Disorders: Arthritis, Gout Endocrine History of Endocrine Disorders: Yes (OBESITY) Endocrine Disorders: Diabetes, Non-Insulin dep HEENT Loss of Vision: Denies Hearing Impairment: Denies Cancer History of Cancer: No Psychosocial History of Psychiatric Problem: Yes Behavioral Health Disorders: Anxiety Integumentary History of Skin or Integumenta: No Blood Transfusions History of Blood Disorders: No Adverse Reaction to a Blood Tr: No Reviewed Nursing Assessment Reviewed/Agree w Nursing PMH: Yes Family Medical History Family Medial History: Abdominal aortic aneurysm 19 FATHER, , Onset:60 years & older Diabetes mellitus 19 FATHER, , Onset:Unknown FH: breast cancer 19 MOTHER, Onset:40's - 50 FH: kidney cancer 19 MOTHER, Onset:Unknown FH: uterine cancer 19 MOTHER, Onset:Unknown Myocardial infarction 19 FATHER, , Onset:50's - 60 Physical Exam Vital Signs Vital Sign - Last 12Hours 04/10/17 09:30 Temp 97.9 Pulse 98 Resp 18 B/P (MAP) 125/74 Pulse Ox 99 Capillary Refill : Less Than 3 Seconds General Appearance: mild distress Neck: normal inspection Cardiovascular: normal peripheral pulses, regular rate, rhythm Respiratory: chest non-tender, lungs clear Gastrointestinal: normal bowel sounds, soft Genital/Rectal: normal vaginal exam, No blood at urethral meatus Pelvic: normal external exam, No discharge Back: normal inspection Extremities: normal range of motion, non-tender Neurologic/Psychiatric: no motor/sensory deficits, alert, normal mood/affect Skin: normal color, warm/dry Progress/Results/Core Measures Results/Orders Lab Results Laboratory Tests Test 04/10/17 09:35 04/10/17 09:45 Range/Units Urine Color YELLOW Urine Clarity VERY CLOUDY H Urine pH 6.5 5-9 Urine Specific [place] 1.015 L 1.016-1.022 Urine Protein 4+ NEGATIVE Urine Glucose (UA) NEGATIVE NEGATIVE Urine Ketones NEGATIVE NEGATIVE Urine Nitrite POSITIVE H NEGATIVE Urine Bilirubin NEGATIVE NEGATIVE Urine Urobilinogen NORMAL NORMAL MG/DL Urine Leukocyte Esterase 3+ H NEGATIVE Urine RBC (Auto) 4+ H NEGATIVE Urine RBC RARE /HPF Urine WBC TNTC H /HPF Urine Squamous Epithelial Cells NONE /HPF Urine Crystals NONE /LPF Urine Bacteria LARGE H /HPF Urine Casts NONE /LPF Urine Mucus MODERATE H /LPF Urine Yeast FEW H /HPF Urine Culture Indicated YES Micro Results Microbiology 04/10/17 Genital Culture, Resulted Pending 04/10/17 Wet Prep - Final, Resulted My Orders Orders - MITCH COLE MD Ua Culture If Indicated (04/10/17 09:27) Wet Prep (04/10/17 09:49) Neisseria Gonorrhea Dna (04/10/17 09:49) Chlamydia Dna (04/10/17 09:49) Genital Culture (04/10/17 09:49) Urine Culture (04/10/17 09:35) Vital Signs/I&O Vital Sign - Last 12Hours 04/10/17 09:30 Temp 97.9 Pulse 98 Resp 18 B/P (MAP) 125/74 Pulse Ox 99 Blood Pressure Mean: 91 Progress Note : Time: 11:03 Progress Note The patient's urinalysis demonstrates a significant urinary tract infection. Vaginal exam was done and cultures were obtained as well. Departure Impression Impression: Primary Impression: Urinary tract infection Qualified Codes: N30.00 - Acute cystitis without hematuria Disposition: HOME, SELF-CARE Condition: Unchanged Departure-Patient Inst. Decision time for Depature: 11:04 Referrals: VERONICA ROQUE MD (PCP/Family) Primary Care Physician FRANCI MENDOZA MD Patient Instructions: Urinary Tract Infection, Adult (DC) Add. Discharge Instructions: Pyridium and Macrobid as prescribed. Follow closely with her doctors early next week. Call their office Wednesday morning. Return in the interim if any problems or questions. All discharge instructions reviewed with patient and/or family. Voiced understanding. MITCH COLE MD Apr 10, 2017 10:59
[2017-04-10 11:16] VITALS: BP 115/80
== END 2017-04-10 11:16 | disposition home or self-care (01) ==
LOC: EDUNIT# 09:09 → ER 09:10
DX: N39.0 Urinary tract infection, site not specified (principal); F41.9 Anxiety disorder, unspecified; E11.40 Type 2 diabetes mellitus with diabetic neuropathy, unspecified; I48.91 Unspecified atrial fibrillation; E78.00 Pure hypercholesterolemia, unspecified; I10 Essential (primary) hypertension; E66.9 Obesity, unspecified; M10.9 Gout, unspecified; Z87.442 Personal history of urinary calculi; Z87.59 Personal history of other complications of pregnancy, childbirth and the puerperium; Z96.651 Presence of right artificial knee joint; Z87.891 Personal history of nicotine dependence; Z79.84 Long term (current) use of oral hypoglycemic drugs; Z68.42 Body mass index [BMI] 45.0-49.9, adult; Z80.51 Family history of malignant neoplasm of kidney; Z80.3 Family history of malignant neoplasm of breast; Z80.49 Family history of malignant neoplasm of other genital organs
CPT/HCPCS: 36415; 51701; 81000; 87070; 87077; 87088; 87186; 87210; 87491; 87591; 99284

== ENCOUNTER 2017-04-23 19:47 | Emergency (ER) | payer MEDICARE ==
[~2017-04-23] VITALS: Ht 165.1 cm; Wt 136.2 kg
[2017-04-23] MEDS ORDERED: D5 NS 1000 ML IV SOLUTION 1,000 ML IV STA (20:00)
[2017-04-23 20:12] LABS: MEAN CORPUSCULAR HEMOGLOBIN 35 PG (25-34); MEAN CORPUSCULAR HGB CONC 33 G/DL (32-36); MEAN CORPUSCULAR VOLUME 107 FL (80-99); MEAN PLATELET VOLUME 11.4 FL (7.4-10.4); RED BLOOD COUNT 1.78 10^6/uL (4.35-5.85); RED CELL DISTRIBUTION WIDTH 18.1 % (10.0-14.5)
[2017-04-23 20:18] LABS: WHITE BLOOD COUNT 52.9 10^3/uL (4.3-11.0)
[2017-04-23 20:19] LABS: PLATELET COUNT 34 10^3/uL (130-400)
--- NOTE | 2017-04-23 20:21 | ED General ---
General Chief Complaint: Glucose Problems Stated Complaint: WEAKNESS Nursing Triage Note: brought in by [facility] for c/o generalized weakness x2-3 weeks. currently being treated for uti. low blood glucose. Nursing Sepsis Screen: No Definite Risk Source of Information: Patient, EMS Exam Limitations: No Limitations History of Present Illness Time Seen by Provider: 19:55 Initial Comments Here by EMS with report of low blood sugar. Complains of generalized weakness over the last couple of weeks. She has been evaluated and treated for urinary tract infection. She still feels weak and overall not well. Denies breathing problems but does state that she feels weak and her vision feels fuzzy. This is also been going on for a couple of weeks. Just completed antibiotic treatment with Macrobid for Escherichia coli UTI. Today broke out in a sweat and was found to have blood sugar 44 by EMS. This did improve with oral glucose and sweating is subsequently stopped. Denies chest pain or breathing problems. Denies nausea or vomiting. Denies diarrhea. 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 HER TAKING NSAIDS (Non-Steroidal Anti-Inflamma (Unverified Allergy, Unknown, 05/16/16 ) FIELD LABORATORY OPERATOR DOES NOT WANT HER TAKING ciprofloxacin (Verified Allergy, Unknown, 04/10/17) levofloxacin (Verified Allergy, Unknown, 04/10/17) sulfamethoxazole (Unverified Allergy, Unknown, 05/16/16) FIELD LABORATORY OPERATOR DOES NOT WANT HER TAKING trimethoprim (Unverified Allergy, Unknown, 05/16/16) FIELD LABORATORY OPERATOR DOES NOT WANT HER TAKING Home Medications Alprazolam 1 Mg Tablet, 1 MG PO TID, (Reported) Apixaban 5 Mg Tablet, 5 MG PO BID, (Reported) Ascorbic Acid 500 Mg Capsule.er, 500 MG PO DAILY, (Reported) Atenolol 50 Mg Tablet, 50 MG PO BID, (Reported) Cephalexin 500 Mg Tablet, 500 MG PO TID for 7 Days, #21 Ref 0 Prescribed by: REESE KIM on 10/25/16 1416 Cephalexin 500 Mg Tablet, 500 MG PO BID for 7 Days, #14 Ref 0 Prescribed by: REESE KIM on 10/25/16 1246 Cholecalciferol (Vitamin D3) 50,000 Unit Capsule, 50,000 UNIT PO Heard, (Reported) Cyanocobalamin (Vitamin B-12) 5,000 Mcg/1 Ml Drops, 0.33 ML SL DAILY, (Reported) Diltiazem HCl 240 Mg Cap.er.24h, 240 MG PO DAILY, (Reported) Docusate Sodium 100 Mg Capsule, 100 MG PO DAILY, (Reported) Folic Acid 0.4 Mg Tablet, 0.4 MG PO HS, (Reported) Furosemide 40 Mg Tablet, 40 MG PO every other day, (Reported) Glimepiride 4 Mg Tablet, 4 MG PO DAILY, (Reported) Glimepiride 4 Mg Tablet, 4 MG PO DAILY, (Reported) Magnesium Oxide 400 Mg Tablet, 400 MG PO DAILY, (Reported) Nitrofurantoin Monohyd/M-Cryst 100 Mg Capsule, 1 TAB PO BID, #20 Ref 0 Prescribed by: LOUISE DURBIN on 05/16/16 0149 Oxybutynin Chloride 10 Mg Tab.er.24, 10 MG PO DAILY, (Reported) Potassium Chloride 10 Meq Tablet.er, 10 MEQ PO every other day, (Reported) Tramadol HCl 50 Mg Tablet, 50 MG PO Q8H PRN for PAIN, #12 Prescribed by: THELMA MAR on 05/09/16 1535 Trimethoprim 100 Mg Tablet, 100 MG PO HS, (Reported) Constitutional: see HPI, No chills, diaphoresis, No fever EENTM: no symptoms reported Respiratory: no symptoms reported, dyspnea on exertion Cardiovascular: No chest pain, No edema Gastrointestinal: no symptoms reported, No abdominal pain, No vomiting Genitourinary: decreased output, No pain Musculoskeletal: No muscle pain, muscle weakness Skin: change in color, No lesions Psychiatric/Neurological: No Symptoms Reported Hematologic/Lymphatic: Denies No Symptoms Reported Immunological/Allergic: no symptoms reported All Other Systems Reviewed Negative Unless Noted: Yes Past Grvirrf-Ewfcou-Wfidml Hx Patient Social History Alcohol Use: Denies Use Recreational Drug Use: No Smoking Status: Former Smoker Former Smoker, Quit: Oct 17, 1976 Recent Foreign Travel: No Contact w/Someone Who Travel: No Recent Infectious Disease Expo: No Recent Hopitalizations: No Immunizations Up To Date Tetanus Booster (TDap): More than 5yrs PED Vaccines UTD: No Seasonal Allergies Seasonal Allergies: No Surgeries History of Surgeries: Yes (RIGHT TOTAL KNEE REPLACEMENT 2009; RIGHT FOOT SURGERY 2009) Surgeries: Section, Joint Replacement, Orthopedic Respiratory History of Respiratory Disorde: No Currently Using CPAP: No Currently Using BIPAP: No Cardiovascular History of Cardiac Disorders: Yes Cardiac Disorders: Atrial Fibrillation, Chronic Edema/Swelling, High Cholesterol, Hypertension Neurological History of Neurological Disord: Yes Neurological Disorders: Neuropathy Reproductive System : No Hx Reproductive Disorders: Yes Sexually Transmitted Disease: No HIV/AIDS: No Female Reproductive Disorders: Denies COLOR BLENDER History: 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 Genitourinary History of Genitourinary Disor: Yes Genitourinary Disorders: Kidney Stones, Renal Failure, UTI-Chronic Gastrointestinal History of Gastrointestinal Di: Yes (SPASTIC COLON) Musculoskeletal History of Musculoskeletal Dis: Yes (CHRONIC KNEE AND FOOT PAIN ) Musculoskeletal Disorders: Arthritis, Gout Endocrine History of Endocrine Disorders: Yes (OBESITY) Endocrine Disorders: Diabetes, Non-Insulin dep HEENT Loss of Vision: Denies Hearing Impairment: Denies Cancer History of Cancer: No Psychosocial History of Psychiatric Problem: Yes Behavioral Health Disorders: Anxiety Integumentary History of Skin or Integumenta: No Blood Transfusions History of Blood Disorders: No Adverse Reaction to a Blood Tr: No Reviewed Nursing Assessment Reviewed/Agree w Nursing PMH: Yes Family Medical History Family Medial History: Abdominal aortic aneurysm 19 FATHER, , Onset:60 years & older Diabetes mellitus 19 FATHER, , Onset:Unknown FH: breast cancer 19 MOTHER, Onset:40's - 50 FH: kidney cancer 19 MOTHER, Onset:Unknown FH: uterine cancer 19 MOTHER, Onset:Unknown Myocardial infarction 19 FATHER, , Onset:50's - 60 Physical Exam Vital Signs Vital Sign - Last 12Hours 04/23/17 20:04 Temp 96.5 Pulse 77 Resp 20 B/P (MAP) 108/71 Pulse Ox 98 O2 Delivery Nasal Cannula O2 Flow Rate 2.00 Capillary Refill : Less Than 3 Seconds General Appearance: No Apparent Distress, WD/WN HEENT: PERRL/EOMI, Pharynx Normal Neck: Non Tender, Supple Respiratory: Lungs Clear, Normal Breath Sounds Cardiovascular: No Murmur, Irregularly Irregular Gastrointestinal: Non Tender, Soft Back: Normal Inspection, No CVA Tenderness, No Vertebral Tenderness Extremity: Normal Range of Motion, Non Tender Neurologic/Psychiatric: Alert, Oriented x3, No Motor/Sensory Deficits Skin: Cool, Pallor Focused Exam Evaluation Lactate Level Laboratory Tests 04/23/17 20:55: Lactic Acid Level 1.57 Lactic Acid Level Progress/Results/Core Measures Results/Orders Lab Results Laboratory Tests Test 04/23/17 19:59 04/23/17 20:00 04/23/17 20:10 04/23/17 20:20 Range/Units Glucometer 60 *L 70-110 MG/DL White Blood Count 52.9 *H 4.3-11.0 10^3/uL Red Blood Count 1.78 L 4.35-5.85 10^6/uL Hemoglobin 6.2 *L 11.5-16.0 G/DL Hematocrit 19 *L 35-52 % Mean Corpuscular Volume 107 H 80-99 FL Mean Corpuscular Hemoglobin 35 H 25-34 PG Mean Corpuscular Hemoglobin Concent 33 32-36 G/DL Red Cell Distribution Width 18.1 H 10.0-14.5 % Platelet Count 34 *L 130-400 10^3/uL Mean Platelet Volume 11.4 H 7.4-10.4 FL Neutrophils (%) (Auto) 42-75 % Lymphocytes (%) (Auto) 12-44 % Monocytes (%) (Auto) 0-12 % Eosinophils (%) (Auto) 0-10 % Basophils (%) (Auto) 0-10 % Neutrophils # (Auto) 1.8-7.8 X 10^3 Lymphocytes # (Auto) 1.0-4.0 X 10^3 Monocytes # (Auto) 0.0-1.0 X 10^3 Eosinophils # (Auto) 0.0-0.3 10^3/uL Basophils # (Auto) 0.0-0.1 10^3/uL Neutrophils % (Manual) % Macrocytosis MARKED Sodium Level 136 135-145 MMOL/L Potassium Level 3.4 L 3.6-5.0 MMOL/L Chloride Level 103 98-107 MMOL/L Carbon Dioxide Level 23 21-32 MMOL/L Anion Gap 10 5-14 MMOL/L Blood Urea Nitrogen 26 H 7-18 MG/DL Creatinine 1.44 H 0.60-1.30 MG/DL Estimat Glomerular Filtration Rate 37 BUN/Creatinine Ratio 18 Glucose Level 53 *L 70-105 MG/DL Calcium Level 7.9 L 8.5-10.1 MG/DL Total Bilirubin 0.7 0.1-1.0 MG/DL Aspartate Amino Transf (AST/SGOT) 23 5-34 U/L Alanine Aminotransferase (ALT/SGPT) 9 0-55 U/L Alkaline Phosphatase 39 L 40-136 U/L Lactate Dehydrogenase 607 H 125-220 U/L Total Protein 6.2 L 6.4-8.2 GM/DL Albumin 2.7 L 3.2-4.5 GM/DL Smear Scan yes Urine Color YELLOW Urine Clarity VERY CLOUDY H Urine pH 6 5-9 Urine Specific [place] 1.010 L 1.016-1.022 Urine Protein 3+ H NEGATIVE Urine Glucose (UA) NEGATIVE NEGATIVE Urine Ketones NEGATIVE NEGATIVE Urine Nitrite NEGATIVE NEGATIVE Urine Bilirubin NEGATIVE NEGATIVE Urine Urobilinogen NORMAL NORMAL MG/DL Urine Leukocyte Esterase 3+ H NEGATIVE Urine RBC (Auto) 5+ H NEGATIVE Urine RBC >100 H /HPF Urine WBC TNTC H /HPF Urine Crystals NONE /LPF Urine Bacteria LARGE H /HPF Urine Casts NONE /LPF Urine Mucus NEGATIVE /LPF Urine Culture Indicated YES Prothrombin Time 27.0 H 12.2-14.7 SEC INR Comment 2.5 H 0.8-1.4 Activated Partial Thromboplast Time 51 H 24-35 SEC Fibrinogen 600 H 221-496 MG/DL Test 04/23/17 20:55 04/23/17 21:41 Range/Units Lactic Acid Level 1.57 0.50-2.00 MMOL/L Glucometer 133 H 70-110 MG/DL My Orders Orders - BALAJI VALLES MD Cbc With Automated Diff (04/23/17 20:00) Comprehensive Metabolic Panel (04/23/17 20:00) Ua Culture If Indicated (04/23/17 20:00) D5 Ns 1000 Ml Iv Solution (Dextrose 5%/0 (04/23/17 20:00) Manual Differential (04/23/17 20:00) Protime With Inr (04/23/17 20:21) Partial Thromboplastin Time (04/23/17 20:21) Red Cells Leukocytes Reduced (04/23/17 20:21) Saline Lock/Iv-Start (04/23/17 20:21) Ekg Tracing (04/23/17 20:21) Monitor-Rhythm Ecg Trace Only (04/23/17 20:21) Chest 1 View, Ap/Pa Only (04/23/17 20:21) Type And Screen (04/23/17 20:21) Urine Culture (04/23/17 20:10) LDH (04/23/17 20:45) Catheter(Urinary) Insert & Ass 03,15 (04/23/17 20:57) Lactic Acid Analyzer (04/23/17 21:33) Blood Culture (04/23/17 21:33) Accucheck Stat ONCE (04/23/17 21:42) Ceftriaxone Injection (Rocephin Injectio (04/23/17 21:45) Blood Culture (04/23/17 21:44) Fibrinogen (04/23/17 21:50) Medications Given in ED Current Medications Medications Dose Ordered Sig/Raoul Route Start Time Stop Time Status Last Admin Dose Admin Ceftriaxone Sodium 1000 mg/ Sodium Chloride 50 ml @ 100 mls/hr ONCE ONCE IV 04/23/17 21:45 04/23/17 22:14 DC 04/23/17 22:03 100 MLS/HR Vital Signs/I&O Vital Sign - Last 12Hours 04/23/17 04/23/17 04/23/17 04/23/17 20:04 20:30 21:00 21:30 Temp 96.5 Pulse 77 70 76 69 Resp 20 20 16 24 B/P (MAP) 108/71 111/69 110/69 107/63 Pulse Ox 98 95 95 95 O2 Delivery Nasal Cannula Nasal Cannula Nasal Cannula Nasal Cannula O2 Flow Rate 2.00 2.00 2.00 2.00 2.00 04/23/17 04/23/17 22:00 22:32 Temp 95.7 Pulse 68 70 Resp 22 16 B/P (MAP) 96/86 Pulse Ox 96 97 O2 Delivery Nasal Cannula Nasal Cannula O2 Flow Rate 2.00 2.00 Blood Pressure Mean: 83 Progress Note : Progress Note Seen and evaluated. IV, labs, UA, chest x-ray, D5NS 1 L bolus. 2018: Lab reports hemoglobin of 6 with elevated white count of 52,000. This is a marked change from previous. Patient has received 1 L of normal saline from EMS. 2020 : Lab reports significant abnormality in CBC. Patient has anemia with critically elevated white count. Type and cross for 2 units. Monitor patient. 2038: I discussed the case with Dr. Tejada. She is recommending consult with Dr. Fontenot as this sounds like acute leukemia for which I also have similar concerns. Dr. Fontenot was paged. I did discuss the case with him at 2047. He will come evaluate the slide in the lab. Patient has been informed of all of the concerns. Patient also has significant urinary tract infection. We will treat as indicated but will hold for discussion with Dr. Fontenot after he looks at the slide. Anticipate probable transfer due to acute leukemia. Patient is severely weak. She is mentating better after fluids. Due to weakness, we will initiate Gonzalez catheter. Patient is requesting Gonzalez catheter as well. This was ordered. 2109: Dr. Fontneot here and evaluating the patient. 2122: Initiated transfer process. 2130: Dr. Fontenot did discuss the case with the assistant at surgery on-call. They will accept the patient although the hematology service is currently And they will talk with the BMT service. Pending call back. Current blood sugar 133. Patient and family were informed of all of the concerns and agree with transfer. Patient will need transfer for further evaluation and care in a Center capable of managing this. is the closest Center available for initial evaluation of this type of acute leukemia. 2139: Pending bed assignment and transfer. 2149: I did speak with the physician on for BMT. After further discussion, we've agreed that the patient would benefit from ICU placement overnight. We will talk with the ICU physician but they have accepted the patient for transfer. Lactic acid pending. Rocephin 1 g IV ordered. Patient's current blood pressure is 107/63 with a heart rate is 72. O2 sats of been in the mid 90s on 2 L via nasal cannula. 2154: Lactic acid 1.57. 2212: Dr. Grewal will be the accepting physician. EMS has been initiated. ECG Initial ECG Impression Date: Apr 23, 2017 Initial ECG Impression Time: 20:25 Initial ECG Rate: 70 Initial ECG Rhythm: A Fib/Flutter Initial ECG Comparisson: Unchanged Comment Atrial fibrillation with normal rate. Normal axis. No evidence of ST elevation [place]. Interpreted by me. Diagnostic Imaging Diagonstic Imaging: Xray Plain Films/CT/US/NM/MRI: chest Comments VIA [facility] [place] NAME: DANK MORAES [facility] REC#: [id number] PT STATUS: REG ER : 1960 PHYSICIAN: BALAJI VALLES MD ADMIT DATE: 04/23/17/ER Draft Date of Exam:04/23/17 CHEST 1 VIEW, AP/PA ONLY INDICATION: Weakness, shortness of air. COMPARISON STUDY: Chest dated 02/25/2016. FINDINGS: Cardiomegaly is again identified with normal vascularity. The lungs are clear. There are no pleural effusions. IMPRESSION: Cardiomegaly. Dictated on workstation # [id number] Dict: 04/23/172050 Trans: 04/23/172053 [id number] Interpreted by: SARAH MONROY MD Electronically signed by: Departure Impression Impression: Primary Impression: Acute myelogenous leukemia Qualified Codes: C92.00 - Acute myeloblastic leukemia, not having achieved remission Additional Impression: Urinary tract infection Qualified Codes: N30.01 - Acute cystitis with hematuria Disposition: XFER SHT-TRM HOSP Condition: Stable Transfer Transfer Time: 21:40 Transfer Facility: Transfer to [facility], Dr Grewal accepting Method of Transfer: EMS Departure-Patient Inst. Referrals: VERONICA RQOUE MD (PCP/Family) Primary Care Physician BALAJI VALLES MD Apr 23, 2017 20:21
[2017-04-23 20:26] LABS: BILIRUBIN,URINE NEGATIVE (NEGATIVE); KETONES,URINE NEGATIVE (NEGATIVE); LEUKOCYTE ESTERASE ,URINE 3+ (NEGATIVE); NITRITE,URINE NEGATIVE (NEGATIVE); PH,URINE 6 (5-9); PROTEIN,URINE 3+ (NEGATIVE); UROBILINOGEN,URINE NORMAL (NORMAL)
[2017-04-23 20:30] VITALS: BP 111/69
[2017-04-23 20:31] LABS: ALBUMIN 2.7 GM/DL (3.2-4.5); BILIRUBIN,TOTAL 0.7 MG/DL (0.1-1.0); CALCIUM 7.9 MG/DL (8.5-10.1); CREATININE SERUM 1.44 MG/DL (0.60-1.30); POTASSIUM 3.4 MMOL/L (3.6-5.0); TOTAL PROTEIN 6.2 GM/DL (6.4-8.2)
[2017-04-23 20:31] LABS: INR 2.5 (0.8-1.4)
[2017-04-23 20:39] LABS: WBC,URINE TNTC /HPF
--- NOTE | 2017-04-23 20:55 | Diagnostic Imaging Report ---
INDICATION: Weakness, shortness of air. COMPARISON STUDY: Chest dated 02/25/2016. FINDINGS: Cardiomegaly is again identified with normal vascularity. The lungs are clear. There are no pleural effusions. IMPRESSION: Cardiomegaly. Dictated by: Dictated on workstation # [id number]
[2017-04-23 21:00] VITALS: BP 110/69
[2017-04-23 21:30] VITALS: BP 107/63
[2017-04-23] MEDS ORDERED: cefTRIAXone INJECTION 1,000 MG in NS (IVPB) 50 ML IV ONE (21:45)
[2017-04-23 22:00] VITALS: BP 96/86
[2017-04-23 22:32] VITALS: BP 116/57
== END 2017-04-23 22:32 | disposition short-term general hospital (02) ==
LOC: EDUNIT# 19:47 → ER 19:48
DX: C92.00 Acute myeloblastic leukemia, not having achieved remission (principal); N39.0 Urinary tract infection, site not specified; F41.9 Anxiety disorder, unspecified; E11.40 Type 2 diabetes mellitus with diabetic neuropathy, unspecified; I48.91 Unspecified atrial fibrillation; E78.00 Pure hypercholesterolemia, unspecified; I10 Essential (primary) hypertension; M10.9 Gout, unspecified; Z87.891 Personal history of nicotine dependence; Z87.442 Personal history of urinary calculi; Z87.59 Personal history of other complications of pregnancy, childbirth and the puerperium; Z96.651 Presence of right artificial knee joint
CPT/HCPCS: 36415; 51702; 71010; 80053; 81000; 82962; 83605; 83615; 85007; 85027; 85384; 85610; 85730; 86850; 86900; 86901; 86920; 87040; 87077; 87088; 87186; 93005; 93041; 96361; 96365

== ENCOUNTER 2017-06-09 14:25 | Outpatient (RCR) | payer MEDICARE ==
[2017-06-09 15:19] LABS: BASOPHILS % (AUTO) 0 % (0-10); EOSINOPHILS % (AUTO) 1 % (0-10); HEMATOCRIT 26 % (35-52); HEMOGLOBIN 8.1 G/DL (11.5-16.0); LYMPHOCYTES # (AUTO) 0.3 X 10^3 (1.0-4.0); LYMPHOCYTES % (AUTO) 11 % (12-44); MEAN CORPUSCULAR HEMOGLOBIN 30 PG (25-34); MEAN CORPUSCULAR HGB CONC 32 G/DL (32-36); MEAN CORPUSCULAR VOLUME 95 FL (80-99); MEAN PLATELET VOLUME 8.8 FL (7.4-10.4); MONOCYTES % (AUTO) 0 % (0-12); NEUTROPHILS # (AUTO) 2.2 X 10^3 (1.8-7.8); NEUTROPHILS % (AUTO) 88 % (42-75); PLATELET COUNT 76 10^3/uL (130-400); RED BLOOD COUNT 2.71 10^6/uL (4.35-5.85); RED CELL DISTRIBUTION WIDTH 18.9 % (10.0-14.5); WHITE BLOOD COUNT 2.5 10^3/uL (4.3-11.0)
[2017-06-09 15:40] LABS: ALANINE AMINOTRANSFERASE 29 U/L (0-55); ALBUMIN 2.9 GM/DL (3.2-4.5); ALKALINE PHOSPHATASE 63 U/L (40-136); BILIRUBIN,TOTAL 1.8 MG/DL (0.1-1.0); BUN/CREATININE RATIO 33; CALCIUM 8.4 MG/DL (8.5-10.1); CARBON DIOXIDE 26 MMOL/L (21-32); CHLORIDE 105 MMOL/L (98-107); CREATININE SERUM 0.89 MG/DL (0.60-1.30); GFR ESTIMATED > 60; POTASSIUM 3.9 MMOL/L (3.6-5.0); SODIUM 141 MMOL/L (135-145); TOTAL PROTEIN 5.6 GM/DL (6.4-8.2)
[2017-06-09 15:48] LABS: GLUCOSE 49 MG/DL (70-105)
== END 2017-09-07 | disposition home or self-care (01) ==
LOC: ONC 14:25
PROVIDERS: ATTEND Internal Medicine Hematology & Oncology
DX: C95.00 Acute leukemia of unspecified cell type not having achieved remission (principal); E11.40 Type 2 diabetes mellitus with diabetic neuropathy, unspecified; F41.9 Anxiety disorder, unspecified; M06.9 Rheumatoid arthritis, unspecified; I48.91 Unspecified atrial fibrillation; E78.00 Pure hypercholesterolemia, unspecified; I10 Essential (primary) hypertension; Z87.442 Personal history of urinary calculi; Z96.651 Presence of right artificial knee joint; Z87.891 Personal history of nicotine dependence; Z80.51 Family history of malignant neoplasm of kidney
CPT/HCPCS: 36415; 36591; 80053; 85025; 93005

== ENCOUNTER 2017-06-11 18:23 | Emergency (ER) | payer MEDICARE ==
[~2017-06-11] VITALS: Ht 172.7 cm; Wt 226.8 kg
--- OUTSIDE RECORDS SUMMARY | 2017-06-11 18:30 | XMS REPORT | Continuity of Care Document ---
Author Author [employer] Organization [facility] Address Unknown Phone Unavailable Care Team Providers Care Chief Radiology Name Role Phone [employer] Unavailable Unavailable Problems Medications Allergies, Adverse Reactions, Alerts Immunizations Results Vital Signs Encounters Location Location Details Encounter Type Encounter Number Reason For Visit Attending Provider ADM Date DC Date Status Source INPATIENT [id number] LUANA VELAZQUEZ 04/24/2017 05/19/2017 Active [facility] SERIES [id number] [facility] 05/20/2017 Active [facility] [place] SERIES [id number] [facility] 05/21/20172016 Active [facility] OP SURGERY [id number] [facility] 05/28/2017 05/28/2017 Active [facility] CA SERIES [id number] 05/28/2017 05/28/2017 Active [facility] CA SERIES [id number] LUANA VELAZQUEZ 06/02/2017 Active [facility] O Active [facility] PENDING [id number] LAURA ARCOS Active [facility] Procedures Plan of Care Social History Assessment and Plan Family History Value Date Source Advance Directives Order Name Results Value Date Source
--- OUTSIDE RECORDS SUMMARY | 2017-06-11 18:32 | XMS REPORT | Encounter Summary ---
Author Author [facility] Organization [facility] Address Unknown Phone Unavailable Care Team Providers Care Copyholder Name Role Phone PCP Unavailable Reason for Visit * Reason Comments Medication Question Encounter Details Date Type Department Care Team Description 06/07/2017 Telephone [facility] Damaris Wiley RN Medication Question Cancer Center - BMT Exam [address] [place] [address] Social History Tobacco Use Types Packs/Day Years Used Date Never Smoker Smokeless Tobacco: Never Used Alcohol Use Drinks/Week oz/Week Comments No Sex Assigned at Date Recorded Not on file as of this encounter Functional Status Functional Status Response Date of Assessment Does the patient have a hearing impairment: No 06/04/2017 Does the patient have a visual impairment: No 05/19/2017 Does the patient have impaired ambulation: No 05/19/2017 Does the patient have an activity of daily living No 05/19/2017 (ADL) impairment: Does the patient have an instrumental activity of No 05/19/2017 daily living (IADL) impairment: Cognitive Status Response Date of Assessment Does the patient have a cognitive impairment: No 05/19/2017 as of this encounter Miscellaneous Notes * Telephone Encounter - Damaris Wiley RN - 06/07/2017 9:49 AM FISCAL SERVICES MANAGER Patient called wanting to confirm her potassium dosage from discharge yesterday. Patient informed she is to take Potassium 20meq two times per day per her discharge instructions. Patient verbalized understanding and denied questions or concerns. in this encounter Plan of Treatment Not on fileas of this encounter Visit Diagnoses Not on filein this encounter
--- OUTSIDE RECORDS SUMMARY | 2017-06-11 18:32 | XMS REPORT | Encounter Summary ---
Author Author [facility] Organization [facility] Address Unknown Phone Unavailable Care Team Providers Care Deep Fat Cook Fry Name Role Phone PCP Unavailable Reason for Visit * Reason Comments Medication Refill Encounter Details Date Type Department Care Team Description 06/07/2017 Refill [facility] Deirdre Lujan RN Cancer Center - BMT Exam 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 in [place]. Sent in Acyclovir 200mg dose *00mg total BID, as pt can get med much more inexpensive than at her regular pharmacy. in this encounter Plan of Treatment Not on fileas of this encounter Visit Diagnoses Not on filein this encounter
--- OUTSIDE RECORDS SUMMARY | 2017-06-11 18:32 | XMS REPORT | Encounter Summary ---
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) (Primary [address]) [facility] [address] [place] [id number] Social History Tobacco Use Types Packs/Day Years [...] impairment: No 05/19/2017 as of this encounter Plan of Treatment Not on fileas of this encounter Results * COMPREHENSIVE METABOLIC PANEL (06/09/2017) Component Value Ref Range Sodium 141 Potassium 3.9 Chloride CO2 Blood Urea Nitrogen Creatinine 0.89 Glucose Calcium 8.4 Total Protein Total Bilirubin 1.8 Albumin Alk Phosphatase AST (SGOT) ALT (SGPT) eGFR Non eGFR Anion Gap Specimen Performing Laboratory Blood OTHER OUTSIDE LAB * CBC AND DIFF (06/09/2017) Component Value Ref Range White Blood Cells 2.5 RBC Hemoglobin 8.1 Hematocrit MCV MCH MCHC Platelet Count 76 MPV RDW Neutrophils Absolute Neutrophil Count Lymphocytes Absolute Lymph Count Monocytes Absolute Monocyte Count Eosinophil Absolute Eosinophil Count Basophils Absolute Basophil Count Atypical Lym Metamyelocyte Myelocyte Promyelocyte Blast RBC Morph WBC Morphology Specimen Performing Laboratory Blood OTHER OUTSIDE LAB in this encounter Visit Diagnoses Diagnosis Acute myeloid leukemia in remission (HCC) - Primary Acute myeloid leukemia in remission in this encounter
--- OUTSIDE RECORDS SUMMARY | 2017-06-11 18:32 | XMS REPORT | Clinical Summary ---
Author Author [facility] Organization [facility] Address Unknown Phone Unavailable Care Team Providers Care Corrective Therapy Aide Name Role Phone PCP Unavailable Source Comments Some departments are not documenting in the electronic medical record. If you do not see the information that you expected, contact Release of Information in the Health Information Management department at [phone] for further assistance in locating additional records.[facility] Allergies Active Allergy Reactions Severity Noted Date Comments Ciprofloxacin SEE COMMENTS High 04/24/2017 Per Nephrology doctors. Levofloxacin SEE COMMENTS High 04/24/2017 Per nephrology doctors. Nsaids (Non-Steroidal SEE COMMENTS High 04/24/2017 Per nephrology doctors. Anti-Inflammatory Drug) Sulfamethoxazole-Trimetho SEE COMMENTS Low 04/24/2017 Per Nephrology Doctors. prim Iodinated Contrast- Oral SEE COMMENTS Low 04/24/2017 Per nephrology doctors. And Iv Dye Current Medications Prescription Sig. Disp. Refills Start End Date Status Date ALPRAZolam (XANAX) 1 mg Take 1 mg by mouth twice Active tablet daily. glimepiride (AMARYL) 4 mg Take 4 mg by mouth daily Active tablet with breakfast. diltiazem CD (CARDIZEM Take 240 mg by mouth Active CD) 240 mg capsule daily. midostaurin (RYDAPT) 25 Take 2 capsules (50mg) by 56 capsule 0 Active mg capsuleIndications: mouth twice daily with 17 Acute myeloid leukemia meals on Days 8-21 of not having achieved each chemotherapy cycle. remission (HCC) prochlorperazine maleate Take 1 tablet by mouth 30 tablet 2 05/19/20 Active (COMPAZINE) 10 mg tablet every 6 hours as needed 17 for Nausea or Vomiting. atenolol (TENORMIN) 50 mg Take 0.5 tablets by mouth 05/19/20 Active tablet daily. 17 ONETOUCH VERIO IQ METER Use as directed three 1 each 3 05/19/20 Active kit times daily. 17 blood sugar diagnostic Use 1 strip as directed 300 strip 3 05/19/20 Active (ONETOUCH VERIO) test before meals and at 17 strip bedtime. lancets (ONE TOUCH Use 1 each as directed 300 each 11 05/19/20 Active DELICA) MISC four times daily as 17 needed. Diag: blood sugar diagnostic Use 1 strip as directed 300 strip 3 05/19/20 Active (ONETOUCH ULTRA TEST) before meals and at 17 test strip bedtime. Magnesium 200 mg tab Take 2 tablets by mouth 120 tablet 2 05/21/20 Active twice daily. 17 potassium chloride Take 2 tablets by mouth 120 capsule 2 05/21/20 Active (K-DUR) 10 mEq tablet twice daily. Take with a 17 meal and a full glass of water. allopurinol (ZYLOPRIM) Take 300 mg by mouth Active 300 mg tablet daily. Take with food. FUROSEMIDE (LASIX PO) Take by mouth every 48 Active hours. cholecalciferol (VITAMIN Take 2,000 Units by mouth Active D-3) 1,000 units tablet daily. fluconazole (DIFLUCAN) Take 2 tablets by mouth 60 tablet 1 06/07/20 Active 200 mg tablet daily. 17 cefuroxime (CEFTIN) 500 Take 1 tablet by mouth 60 tablet 1 06/07/20 Active mg tablet twice daily. 17 sodium chloride PF 0.9% Inject 10 mL to area(s) 300 mL 3 06/06/20 Active 0.9 % syringe as directed daily. Flush 17 each lumen of central line with 10ml normal saline daily as instructed. apixaban (ELIQUIS) 5 mg Take 1 tablet by mouth 60 tablet 06/06/20 Active tablet twice daily. HOLD when 17 platelets <50,000 acyclovir (ZOVIRAX) 200 Take 4 capsules by mouth 240 capsule 1 Active mg capsule every 12 hours. 17 apixaban (ELIQUIS) 5 mg Take 5 mg by mouth twice 05/19/20 Discontin tablet daily. 17 ued atenolol (TENORMIN) 50 mg Take 50 mg by mouth twice 05/19/20 Discontin tablet daily. 17 ued magnesium oxide (MAG-OX) Take 400 mg by mouth 05/19/20 Discontin 400 mg tablet daily. 17 ued cyanocobalamin(+) Take 500 mcg by mouth 05/19/20 Discontin (VITAMIN B-12) 500 mcg daily. 17 ued tablet ascorbic acid (VITAMIN C) Take 500 mg by mouth 05/19/20 Discontin 500 mg tablet daily. 17 ued CRANBERRY FRUIT EXTRACT Take 1 tablet by mouth at 05/19/20 Discontin (CRANBERRY EXTRACT PO) bedtime daily. 17 ued nitrofurantoin Take 100 mg by mouth 05/19/20 Discontin monohyd/m-cryst daily. Take with food. 17 ued (MACROBID) 100 mg capsule ergocalciferol (VITAMIN Take 1 capsule by mouth 06/03/20 Discontin D-2) 50,000 unit capsule every 7 days. 17 ued oxybutynin XL (DITROPAN Take 10 mg by mouth 05/19/20 Discontin XL) 10 mg tablet daily. 17 ued allopurinol (ZYLOPRIM) Take 100 mg by mouth 05/19/20 Discontin 100 mg tablet daily. Take with food. 17 ued furosemide (LASIX) 40 mg Take 40 mg by mouth every 05/19/20 Discontin tablet 48 hours. 17 ued potassium chloride SR Take 10 mEq by mouth 05/19/20 Discontin (K-DUR) 10 mEq tablet every 48 hours. Take with 17 ued a meal and a full glass of water. sodium chloride PF 0.9% Inject 10 mL to area(s) 300 mL 3 05/19/20 Discontin 0.9 % syringe as directed daily. 17 17 ued apixaban (ELIQUIS) 5 mg ON HOLD UNTIL COUNT 05/19/20 06/06/20 Discontin tablet RECOVERY 17 17 ued acyclovir (ZOVIRAX) 800 Take 1 tablet by mouth 60 tablet 1 06/07/20 06/07/20 Discontin mg tablet twice daily. 17 17 ued prednisolone acetate Apply 2 drops to both 2 mL 0 06/06/20 06/09/20 (PRED FORTE) 1 % eyes every 6 hours for 3 17 17 ophthalmic days. 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) 04/25/2017 Thrombocytopenia (HCC) 04/25/2017 SAVANAH (acute kidney injury) (HCC) 04/25/2017 Acute cystitis without hematuria 04/25/2017 Sepsis (HCC) 04/25/2017 Chronic atrial fibrillation (HCC) 04/25/2017 Protein-calorie malnutrition (HCC) 04/25/2017 Leukocytosis 04/24/2017 Resolved Problems Problem Noted Date Resolved Date Hyperuricemia 04/25/2017 05/17/2017 Coagulopathy (HCC) 04/25/2017 05/17/2017 Encounters Date Type Specialty Care Team Description 06/11/2017 Orders Only Oncology Zakiya Kennedy RN Acute myeloid leukemia in remission (HCC) (Primary Dx) 06/07/2017 Refill Oncology Deirdre Lujan RN 06/07/2017 Telephone Oncology Damaris Wiley RN Medication Question 06/03/2017 [facility] LyndonDO AML (acute myelogenous - Encounter Cristina Sy MD leukemia) (HCC) 06/06/2017 06/02/2017 Office Visit Oncology Anthony Soto MD Acute myeloid leukemia in Maxwell Clarke MD remission (HCC) (Primary Dx);Anemia due to bone marrow failure, unspecified bone marrow failure type (HCC);SAVANAH (acute kidney injury) (HCC) 06/02/2017 Orders Only Oncology Maxwell Clarke MD 06/01/2017 Documentation Oncology Sherie Diaz RN 06/01/2017 Orders Only Jane Rm, PHARMD 05/28/2017 Nurse Only Oncology Juanpablo Eldridge MD Acute myeloid leukemia not having achieved remission (HCC) 05/28/2017 Office Visit Oncology Juanpablo Eldridge MD Acute myeloid leukemia Carmen Talamantes, JAILENE not having achieved remission (HCC) (Primary Dx) 05/28/2017 [facility] Radiology Juanpablo Eldridge MD Encounter Joey Mauricio MD Roos, Danny Powell, Rosalinda, RN 05/28/2017 Procedure Pass Radiology 05/28/2017 Ancillary Oncology Juanpablo Eldridge MD Acute myeloid leukemia Orders not having achieved remission (HCC) 05/25/2017 Documentation Van Maninder, Heide 05/24/2017 Documentation Heide Bethea 05/23/2017 Orders Only Oncology Beatriz Patel, PHARMD 05/21/2017 Hospital Oncology Juanpablo Eldridge MD Encounter 05/21/2017 Nurse Only Oncology Juanpablo Eldridge MD Acute myeloid leukemia not having achieved remission (HCC) 05/21/2017 Office Visit Oncology Juanpablo Eldridge MD Multiple myeloma not having achieved remission (HCC) 05/21/2017 Telephone Oncology Sherie Diaz RN Appointment 05/21/2017 Pre/Post Radiology Leonardo Kramer RN Procedure 05/21/2017 Orders Only Oncology Sherie Diaz RN Acute myeloid leukemia not having achieved remission (HCC) (Primary Dx) 05/21/2017 Orders Only Oncology Sherie Diaz RN Acute myeloid leukemia not having achieved remission (HCC) (Primary Dx) 05/21/2017 Documentation Oncology Sherie Diaz RN 05/19/2017 Pharmacy Visit 05/14/2017 Documentation Heide Bethea 05/10/2017 Orders Only Cristina Sy MD 05/07/2017 Documentation Heide Bethea 05/06/2017 Documentation Oncology Sherie Diaz RN 04/29/2017 Orders Only Bruno Duval MD 04/29/2017 Telephone Oncology Everton Grewal MD Navigation Assessment 04/29/2017 Documentation Oncology Sherie Diaz RN 04/26/2017 Orders Only Oncology Lyndon Liang DO Acute leukemia not having achieved remission (HCC) (Primary Dx) 04/24/2017 Hospital Megan Moraes MD AML (acute myelogenous - Encounter Lisandro Villarreal MD leukemia) (HCC) 05/19/2017 Luis Lucas MD Dunavin, Neil, MD Male, MD Carmina Ramirez Siddhartha, MD Lin, Tara, MD Singh, Anurag, MD 04/23/2017 Hospital Radiology Encounter from Last 3 Months Social History Tobacco Use Types Packs/Day Years Used Date Never Smoker Smokeless Tobacco: Never Used Alcohol Use Drinks/Week oz/Week Comments No Sex Assigned at Date Recorded Not on file Last Filed Vital Signs Vital Sign Reading Time Taken Blood Pressure 114/61 06/06/2017 8:14 AM [employer] Pulse 76 06/06/2017 8:14 AM [employer] Temperature 36.6 C (97.8 F) 06/06/2017 8:14 AM [employer] Respiratory Rate 16 06/02/2017 11:25 AM [employer] Oxygen Saturation 99% 06/06/2017 8:14 AM [employer]USB[employer] Inhaled Oxygen - - Concentration Weight 130.2 kg (287 lb) 06/06/2017 2:10 AM [employer]USB[employer] Height 170.2 cm (5' 7.01") 06/03/2017 1:00 PM [employer] Body Mass Index 44.94 06/06/2017 2:10 AM [employer]USB[employer] Plan of Treatment Health Maintenance Due Date Last Done Comments HEPATITIS C SCREENING 1960 PHYSICAL (COMPREHENSIVE) 1965 EXAM PERTUSSIS VACCINE 1969 TETANUS VACCINE 1975 CERVICAL CANCER SCREENING 1988 BREAST CANCER SCREENING 1998 COLORECTAL CANCER 2008 SCREENING INFLUENZA VACCINE 02/16/2017 Implants Implanted Type Area Tornado Chaser Device Expiration Model / Identifier Date Serial / Lot Knee Catheter Intravenous 6fr 3 Lumen Right: CR BARD:ACCESS [id number] / [employer] Solo 2 - Sn/A Chest Wall SYS [id number] N/A / Implanted: Qty: 1 on 04/25/2017 by [id number] Gretchen Avendaño MD Procedures Procedure Name Priority Date/Time Associated Diagnosis Comments ECG-SCAN 05/24/2017 Results for this 1:53 PM [employer] procedure are in the results section. ECG-SCAN 05/24/2017 Results for this 1:53 PM [employer] procedure are in the results section. ECG-SCAN 05/24/2017 Results for this 1:53 PM [employer] procedure are in the results section. ECG-SCAN 05/24/2017 Results for this 1:53 PM [employer] procedure are in the results section. ECG-SCAN 05/24/2017 Results for this 1:53 PM [employer] procedure are in the results section. ECG-SCAN 05/24/2017 Results for this 1:52 PM [employer] procedure are in the results section. ECG-SCAN 05/24/2017 Results for this 1:52 PM [employer] procedure are in the results section. ECG-SCAN 05/24/2017 Results for this 1:52 PM [employer] procedure are in the results section. ECG-SCAN 05/24/2017 Results for this 1:52 PM [employer] procedure are in the results section. ECG-SCAN 05/24/2017 Results for this 1:52 PM [employer] procedure are in the results section. ECG-SCAN 05/24/2017 Results for this 1:52 PM [employer] procedure are in the results section. ECG-SCAN 05/24/2017 Results for this 1:52 PM [employer] procedure are in the results section. ECG-SCAN 05/24/2017 Results for this 1:52 PM [employer] procedure are in the results section. ECG-SCAN 05/24/2017 Results for this 1:52 PM [employer]USB[employer] procedure are in the results section. ECG-SCAN 05/24/2017 Results for this 1:52 PM [employer] procedure are in the results section. ECG-SCAN 05/24/2017 Results for this 1:52 PM [employer] procedure are in the results section. ECG-SCAN 05/24/2017 Results for this 1:52 PM [employer]AL [employer]USB[employer] procedure are in the results section. ECG-SCAN 05/24/2017 Results for this 1:52 PM ANIM[employer] procedure are in the results section. ECG-SCAN 05/24/2017 Results for this 1:52 PM ANIMAL [employer]USB[employer] TE[employer] procedure are in the results section. ECG-SCAN 05/24/2017 Results for this 1:52 PM ANIMAL [employer]USB[employer] procedure are in the results section. ECG-SCAN 05/24/2017 Results for this 1:52 PM [employer] procedure are in the results section. ECG-SCAN 05/24/2017 Results for this 1:52 PM [employer] procedure are in the results section. ECG-SCAN 05/24/2017 Results for this 1:52 PM [employer] procedure are in the results section. ECG-SCAN 05/24/2017 Results for this 1:51 PM [employer] procedure are in the results section. ECG-SCAN 05/24/2017 Results for this 1:51 PM [employer] procedure are in the results section. ECG-SCAN 05/24/2017 Results for this 1:51 PM [employer] procedure are in the results section. ECG-SCAN 05/24/2017 Results for this 1:51 PM [employer] procedure are in the results section. ECG-SCAN 05/24/2017 Results for this 1:51 PM [employer]USB[employer] procedure are in the results section. ECG-SCAN 05/24/2017 Results for this 1:51 PM [employer]USB[employer] procedure are in the results section. ECG-SCAN 05/24/2017 Results for this 1:51 PM [employer]IM[employer]USB[employer] procedure are in the results section. CONSULT IV THERAPY TEAM STAT 04/24/2017 1:32 PM CDT CONSULT IV THERAPY TEAM STAT 04/24/2017 1:26 AM CDT from Last 3 Months Results * CBC AND DIFF (06/09/2017) Only the most recent of 49 results within the time period is included. Component Value Ref Range White Blood Cells 2.5 RBC Hemoglobin 8.1 Hematocrit MCV MCH MCHC Platelet Count 76 MPV RDW Neutrophils Absolute Neutrophil Count Lymphocytes Absolute Lymph Count Monocytes Absolute Monocyte Count Eosinophil Absolute Eosinophil Count Basophils Absolute Basophil Count Atypical Lym Metamyelocyte Myelocyte Promyelocyte Blast RBC Morph WBC Morphology Specimen Performing Laboratory Blood OTHER OUTSIDE LAB * COMPREHENSIVE METABOLIC PANEL (06/09/2017) Only the most recent of 32 results within the time period is included. Component Value Ref Range Sodium 141 Potassium 3.9 Chloride CO2 Blood Urea Nitrogen Creatinine 0.89 Glucose Calcium 8.4 Total Protein Total Bilirubin 1.8 Albumin Alk Phosphatase AST (SGOT) ALT (SGPT) eGFR Non eGFR Anion Gap Specimen Performing Laboratory Blood OTHER OUTSIDE LAB * POC GLUCOSE (06/06/2017 8:53 AM) Only the most recent of 134 results within the time period is included. Component Value Ref Range Glucose, POC 160 (H) 70 - 100 MG/DL Specimen Performing Laboratory [facility] [address] [place] [address] * BASIC METABOLIC PANEL (06/06/2017 2:00 AM) Only the most recent of 20 results within the time period is included. Component Value Ref Range Sodium 142 137 - 147 MMOL/L Potassium 4.3 3.5 - 5.1 MMOL/L Chloride 110 98 - 110 MMOL/L CO2 26 21 - 30 MMOL/L Anion Gap 6 3 - 12 Glucose 187 (H) 70 - 100 MG/DL Blood Urea Nitrogen 30 (H) 7 - 25 MG/DL Creatinine 0.93 0.4 - 1.00 MG/DL Calcium 8.3 (L) 8.5 - 10.6 MG/DL eGFR Non >60 >60 mL/min Comment: The eGFR is not validated for use in drug dosing adjustments. Continue to use estimated creatinine clearance per dosing reference text. Please contact the Clinical Pharmacist for questions. eGFR >60 >60 mL/min Comment: The eGFR is not validated for use in drug dosing adjustments. Continue to use estimated creatinine clearance per dosing reference text. Please contact the Clinical Pharmacist for questions. Specimen Performing Laboratory Blood MAIN [facility] [address] [place] [id number] * BNP (B-TYPE NATRIURETIC PEPTI) (2017 5:06 PM) Only the most recent of 3 results within the time period is included. Component Value Ref Range B Type Natriuretic 342.0 (H) 0 - 100 PG/ML Peptide Specimen Performing Laboratory Blood [facility] [address] [place] [id number] * MAGNESIUM (2017 5:06 PM) Only the most recent of 33 results within the time period is included. Component Value Ref Range Magnesium 1.8 1.6 - 2.6 mg/dL Specimen Performing Laboratory [facility] [address] [place] [id number] * URIC ACID (06/04/2017 4:45 PM) Only the most recent of 25 results within the time period is included. Component Value Ref Range Uric Acid 6.4 2.0 - 7.0 MG/DL Specimen Performing Laboratory Blood [facility] [address] [place], [place] [id number] * VRE SCREEN (06/04/2017 3:55 PM) Only the most recent of 6 results within the time period is included. Component Value Ref Range Battery Name VRE SCREEN Specimen Description PERIRECTAL SWAB Special Requests NONE Culture NO VRE ISOLATED Report Status FINAL 06/06/2017 Specimen Performing Laboratory Perirectal Swab [facility] [address] [place] [id number] * PHOSPHORUS (06/04/2017 2:10 AM) Only the most recent of 26 results within the time period is included. Component Value Ref Range Phosphorus 4.4 (H) 2.0 - 4.0 MG/DL Specimen Performing Laboratory Blood [facility] [address] [place] [address] * PTT (APTT) (06/03/2017 12:58 PM) Only the most recent of 23 results within the time period is included. Component Value Ref Range APTT 33.3Comment: NOTE NEW REFERENCE RANGES 21.0 - 39.0 SEC Specimen Performing Laboratory Blood [facility] [address] [place], [place] [id number] * PROTIME INR (PT) (06/03/2017 12:58 PM) Only the most recent of 23 results within the time period is included. Component Value Ref Range INR 1.4 (H) 0.8 - 1.2 Specimen Performing Laboratory Blood MAIN [facility] [address] [place] [address] * LDH-LACTATE DEHYDROGENASE (06/03/2017 12:58 PM) Only the most recent of 10 results within the time period is included. Component Value Ref Range Lactate Dehydrogenase 248 (H) 100 - 210 U/L Specimen Performing Laboratory Blood MAIN [facility] [address] [place] [address] * BONE MARROW (05/28/2017 3:05 PM) Only the most recent of 3 results within the time period is included. Component Value Ref Range PATHOLOGY REPORT [facility] [email or web address] Department of Pathology and Laboratory Medicine [address] [place] [address] Surgical Pathology Office: [phone] SURGICAL PATHOLOGY REPORT NAME: GISELLE KHAN SURG PATH #: [id number] MR #: [id number] ALT ID #: LOCATION: [facility] DATE OF PROCEDURE: 05/28/2017 AGE: 56 SEX: F DATE RECEIVED: 05/28/2017 : 1960 TIME RECEIVED: 15:05 PHYSICIAN: JUANPABLO ELDRIDGE DATE OF REPORT: 05/31/2017 COPY TO: DATE OF PRINTIN05/31/2017 ################################################## ###################### Final Diagnosis: Bone marrow, left iliac crest, aspirate, biopsy, clot, and touch prep: Normocellular marrow (50%) with trilineage hematopoiesis and 4% blasts. Peripheral blood smear: Normocytic anemia, anisocytosis and absolute monocytosis. Attestation: By this signature, I attest that I have personally formulated the final interpretation expressed in this report and that the above diagnosis is based upon my examination of the slides and/or other material indicated in this report. Salty Schneider MD Resident lkr/05/31/2017 Material Received: A: left bone marrow clot B: left bone marrow biopsy History: 56-year-old female with history of acute myeloid leukemia. Gross Description: A. Received in Zinc formalin labeled "left bone marrow clot" is a 2.6 x 1.1 x 0.9 cm aggregate of friable red-brown clotted blood elements. The specimen is bisected and entirely submitted in cassettes A1-A2. (lad) B. Received in Zinc formalin labeled "left bone marrow biopsy" is a 0.5 cm in length and 0.2 cm in diameter cylindrical, yellow-marshall firm piece of tissue. The specimen is submitted in cassette B1 after decalcification. (lad) 05/28/2017 Microscopic Description: CBC Data: HGB 9.2 (g/dL); RBC 3.02 (m/uL); MCV 90.4 (FL); RDW 17.2 (%); WBC 7.0 (k/uL); PLT 308 (k/uL). Blood Smear Diff (%): Segmented neutrophils 54; lymphocytes 22; monocytes 24 Blood Smear Morphology: RBC: Normocytic anemia, anisocytosis, polychromasia WBC: Absolute monocytosis Platelets: Occasional platelet clumping Bone Marrow Aspirate/Touch Prep Morphology: Aspirate Adequacy: Adequate Touch Prep Adequacy: Adequate Cellularity: Normal Megakaryocytes: Normal in number and occasional hypo lobated form. Blasts: Increased Erythroid: Normal Granulocytes: Normal Lymphocytes: Normal Plasma Cells: Normal Monocytes: Increased Bone Marrow Differential Cell Count (%): Blasts: 4 Promyelocytes: 1 Myelocytes: 8 Metamyelocytes: 12 Segs/Bands: 31 Eosinophils: 2 Erythroid: 30 Monocytes: 5 Lymphocytes: 7 Plasma cells: <1 M:E ratio: 1.7 Bone Marrow Core Biopsy: Adequacy: Suboptimal due to size Length: 0.5 cm Cellularity: 50% Megakaryocytes: Normal in number and occasional hypo lobated form. Hematopoiesis: Resembles aspirate smear / touch prep Atypical Infiltrates: None Bone Marrow Cell Clot: Adequacy: Adequate Cellularity: 50% Pertinent Findings: Resembles core biopsy Additional Stains: Iron Stain: Not Performed Immunohistochemistry: Not Performed Chromogenic In Situ Hybridization: Not Performed Other Special Stains: Not Performed Ancillary Studies: Flow Cytometry: Performed, See separate report ([id number]), which shows neoplastic myeloid blasts present (1.25%) Cytogenetics: Performed, See separate report Fluorescence In Situ Hybridization: Not Performed Molecular Genetics: Not Performed Preliminary Diagnosis: Not Performed If immunohistochemical stains and/or in situ hybridization are cited in this report, the performance characteristics were determined by the Department of Pathology and Laboratory Medicine of the [facility] ([employer]) in compliance with CLIA'88 regulations. Some of these tests rely on the use of "analyte specific reagents" and are subject to specific labeling requirements by the FDA. Known positive and negative control tissues demonstrate appropriate staining. Results should be interpreted with caution given the likelihood of false negativity on decalcified specimens. This testing was developed by the Department of Pathology and Laboratory Medicine of the [facility]. It has not been cleared or approved by the FDA. The FDA has determined that such clearance or approval is not necessary. Specimen Performing Laboratory [facility] RESULTS * CT GUIDE NEEDLE PLACEMENT (05/28/2017 12:40 PM) Specimen Performing Laboratory [facility] RES[facility] Impressions 1. Successful CT guided bone marrow aspiration and core biopsy. Joey Alvarez M.D., the attending radiologist, was present for the procedure, personally reviewed the images, and formulated the interpretations and opinions expressed in this report. @TT Finalized by JOEY MAURICIO on 05/28/2017 5:22 PM. Dictated by JOEY MAURICIO on 2016 5:[address] GUIDED BONE MARROW ASPIRATION AND CORE BIOPSY CLINICAL HISTORY:Acute myeloid leukemia RADIOLOGIST:Joey Mauricio M.D. MEDICATIONS:I was personally responsible for the administration of moderate sedation services during the procedure performed and I confirm requirements described in CPT section on moderate sedation were followed, including the use of an independent trained observer who had no other duties during the procedure. The total supervised sedation time was 11 minutes.See nursing log for complete details; the drugs utilized were:Versed: 5 mg IV; Fentanyl: 150 mcg IV; 2% lidocaine TECHNIQUE/FINDINGS: A brief history and physical was obtained and appropriate imaging was reviewed. An explanation of the procedure including risks and benefits was provided and informed written consent was then obtained. The patient was placed in prone position on the table.The entry site was then prepped and draped in the usual sterile fashion.Limited CT imaging of the pelvis was performed to identify the left posterior iliac crest.The patient's skin was marked with ink at the appropriate entry site.Lidocaine was then injected in the subcutaneous tissues at this site down to the periosteum.A bone marrow aspiration introducer needle was then advanced into the posterior iliac crest and placement was confirmed by fluoroscopy. Multiple aspirations were obtained including a 1 mL (no anticoagulation) sent on slide for morphology and a 6 mL heparinized syringe for flow cytometry and cytogenetics. A bone marrow core biopsy was then obtained using a core introducer and needle and submitted in formalin for surgical pathology following touch preparation. Hemostasis was achieved with manual compression, there is no evidence of post biopsy complication.The patient tolerated the procedure well and left the department in stable condition. 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 MEDICATIONS: I was personally responsible for the administration of moderate sedation services during the procedure performed and I confirm requirements described in CPT section on moderate sedation were followed, including the use of an independent trained observer who had no other duties during the procedure. The total supervised sedation time was 11 minutes. See nursing log for complete details; the drugs utilized were: Versed: 5 mg IV; Fentanyl: 150 mcg IV; 2% lidocaine TECHNIQUE/FINDINGS: A brief history and physical was obtained and appropriate imaging was reviewed. An explanation of the procedure including risks and benefits was provided and informed written consent was then obtained. The patient was placed in prone position on the table. The entry site was then prepped and draped in the usual sterile fashion. Limited CT imaging of the pelvis was performed to identify the left posterior iliac crest. The patient's skin was marked with ink at the appropriate entry site. Lidocaine was then injected in the subcutaneous tissues at this site down to the periosteum. A bone marrow aspiration introducer needle was then advanced into the posterior iliac crest and placement was confirmed by fluoroscopy. Multiple aspirations were obtained including a 1 mL (no anticoagulation) sent on slide for morphology and a 6 mL heparinized syringe for flow cytometry and cytogenetics. A bone marrow core biopsy was then obtained using a core introducer and needle and submitted in formalin for surgical pathology following touch preparation. Hemostasis was achieved with manual compression, there is no evidence of post biopsy complication. The patient tolerated the procedure well and left the department in stable condition. IMPRESSION 1. Successful CT guided bone marrow aspiration and core biopsy. Joey Alvarez M.D., the attending radiologist, was present for the procedure, personally reviewed the images, and formulated the interpretations and opinions expressed in this report. @TT Finalized by JOEY MAURICIO on 05/28/2017 5:22 PM. Dictated by JOEY MAURICIO on 2016 5:21 PM. * CBC W/DIFF BM (05/28/2017 12:34 PM) Component Value Ref Range White Blood Cells 7.0 4.5 - 11.0 K/UL RBC 3.02 (L) 4.0 - 5.0 M/UL Hemoglobin 9.2 (L) 12.0 - 15.0 GM/DL Hematocrit 27.3 (L) 36 - 45 % MCV 90.4 80 - 100 FL MCH 30.4 26 - 34 PG MCHC 33.7 32.0 - 36.0 G/DL RDW 17.2 (H) 11 - 15 % Platelet Count 308 150 - 400 K/UL MPV 7.8 7 - 11 FL Specimen Performing Laboratory MAIN LAB [address] [place] [address] * BONE MARROW BIOPSY IR (05/28/2017 12:34 PM) Only the most recent of 3 results within the time period is included. Component Value Ref Range Bone Marrow BX IR SEE PATHOLOGY REPORT Specimen Performing Laboratory MAIN LAB [address] [place] [address] * FLOW CYTOMETRY (05/28/2017 12:34 PM) Only the most recent of 4 results within the time period is included. Component Value Ref Range PATHOLOGY REPORT [facility] [email or web address] Doris Rodarte MD, Director of Clinical Laboratory Fede West MD, Director of Flow Cytometry Laboratory Department of Pathology and Laboratory Medicine [address] [place] [address] Surgical Pathology Office: [phone] FLOW CYTOMETRY REPORT NAME: GISELLE KHAN Emma SURG PATH #: [id number] MR #: [id number] SPECIMEN CLASS: LC BILLING #: [id number] ALT ID #: LOCATION: [facility] DATE OF PROCEDURE: 05/28/2017 AGE: 56 SEX: F DATE RECEIVED: 05/28/2017 : 1960 TIME RECEIVED: 14:52 PHYSICIAN: JUANPABLO ELDRIDGE DATE OF REPORT: 05/31/2017 COPY TO: DATE OF PRINTIN05/31/2017 Material Received: A: Bone Marrow History: 56 year old female with acute myeloid leukemia. ################################################## ###################### Final Diagnosis: Bone marrow, flow cytometry: Neoplastic myeloid blasts present (1.25%). See interpretation/ Interpretation: Atypical myeloid blasts comprise 1.25% of total events and show decreased CD33 CD117 expression and increase, CD38, CD56 and CD123 expression. The immunophenotype findings are atypical and consistent with neoplastic myeloid blasts; please correlate with bone marrow morphology. Attestation: By this signature, I attest that I have personally formulated the final interpretation expressed in this report and that the above diagnosis is based upon my examination of the slides and/or other material indicated in this report. +++Electronically Signed Out By+++ [facility]/05/28/2017 Interpreted by: MD Brendon Rangle, DO Resident 05/31/2017 ################################################## ###################### Lab Data: Flow Cytometry - Acute Myeloid Leukemia, Minimal Residual Disease Panel Analytic sensitivity of the lower detection limit in this assay is 0.01% Myeloid Associated Markers (% Positive Cells): MY65o=6; CD13=81; CD14=1; CD15=0; CD33=30; CD36=2; CD64=11; PH661=57; B Cell Associated Markers (% Positive Cells): CD19=0; CD22=10; T Cell Associated Markers (% Positive Cells): CD2=4; CD4=1; CD5=2; CD7=4; Miscellaneous Markers (% Positive Cells): TZ12=597; ZQ83=552; XX96=730; CD56=8; TW199=48; HLA-Dr=93; Cell Viability (%): na Number of Cells Analyzed: [id number] Total Number of Markers: 32 Summary of Marker Combinations: 7/33/11b/34/13/45/38/19; Dr/117/4/34/123/45/38/19; Dr/56/36/34/64/45/14/19;//5/34/15/45/38/19 This test was developed and its performance characteristics determined by the [facility] Flow [facility]. It has not been cleared or approved by the U.S. Food and Drug Administration (FDA). The FDA has determined that such clearance or approval is not necessary. Specimen Performing Laboratory LAB RESULTS * LEUKEMIA/LYMPHOMA PNL, BONE MARROW (05/28/2017 12:34 PM) Only the most recent of 2 results within the time period is included. Component Value Ref Range Leuk/Lymph Interpretation SEE PATHOLOGY REPORT Specimen/LLM BONE MARROW Specimen Performing Laboratory Bone Marrow MAIN LAB [address] [place] [address] * MANUAL DIFF (05/28/2017 12:34 PM) Only the most recent of 3 results within the time period is included. Component Value Ref Range Segmented Neutrophils 54 41 - 77 % Lymphocytes 22 (L) 24 - 44 % Monocytes 24 (H) 4 - 12 % Platelet Estimate NORMAL RBC Morph ANISO POIK OVALO Specimen Performing Laboratory MAIN LAB [address] [place] [address] * BONE MARROW ASP (05/28/2017 12:34 PM) Only the most recent of 3 results within the time period is included. Component Value Ref Range Bone Marrow Asp SEE PATHOLOGY REPORT Specimen Performing Laboratory Bone Marrow MAIN LAB [address] [place] [address] * CYTOGENETICS SCAN (05/25/2017 10:42 AM) Only the most recent of 2 results within the time period is included. Narrative Ordered by an unspecified provider. * ECG-SCAN (05/24/2017 1:53 PM) Narrative Ordered by an unspecified provider. * ECG-SCAN (05/24/2017 1:53 PM) Narrative Ordered by an unspecified provider. * ECG-SCAN (05/24/2017 1:53 PM) Narrative Ordered by an unspecified provider. * ECG-SCAN (05/24/2017 1:53 PM) Narrative Ordered by an unspecified provider. * ECG-SCAN (05/24/2017 1:53 PM) Narrative Ordered by an unspecified provider. * ECG-SCAN (05/24/2017 1:52 PM) Narrative Ordered by an unspecified provider. * ECG-SCAN (05/24/2017 1:52 PM) Narrative Ordered by an unspecified provider. * ECG-SCAN (05/24/2017 1:52 PM) Narrative Ordered by an unspecified provider. * ECG-SCAN (05/24/2017 1:52 PM) Narrative Ordered by an unspecified provider. * ECG-SCAN (05/24/2017 1:52 PM) Narrative Ordered by an unspecified provider. * ECG-SCAN (05/24/2017 1:52 PM) Narrative Ordered by an unspecified provider. * ECG-SCAN (05/24/2017 1:52 PM) Narrative Ordered by an unspecified provider. * ECG-SCAN (05/24/2017 1:52 PM) Narrative Ordered by an unspecified provider. * ECG-SCAN (05/24/2017 1:52 PM) Narrative Ordered by an unspecified provider. * ECG-SCAN (05/24/2017 1:52 PM) Narrative Ordered by an unspecified provider. * ECG-SCAN (05/24/2017 1:52 PM) Narrative Ordered by an unspecified provider. * ECG-SCAN (05/24/2017 1:52 PM) Narrative Ordered by an unspecified provider. * ECG-SCAN (05/24/2017 1:52 PM) Narrative Ordered by an unspecified provider. * ECG-SCAN (05/24/2017 1:52 PM) Narrative Ordered by an unspecified provider. * ECG-SCAN (05/24/2017 1:52 PM) Narrative Ordered by an unspecified provider. * ECG-SCAN (05/24/2017 1:52 PM) Narrative Ordered by an unspecified provider. * ECG-SCAN (05/24/2017 1:52 PM) Narrative Ordered by an unspecified provider. * ECG-SCAN (05/24/2017 1:52 PM) Narrative Ordered by an unspecified provider. * ECG-SCAN (05/24/2017 1:51 PM) Narrative Ordered by an unspecified provider. * ECG-SCAN (05/24/2017 1:51 PM) Narrative Ordered by an unspecified provider. * ECG-SCAN (05/24/2017 1:51 PM) Narrative Ordered by an unspecified provider. * ECG-SCAN (05/24/2017 1:51 PM) Narrative Ordered by an unspecified provider. * ECG-SCAN (05/24/2017 1:51 PM) Narrative Ordered by an unspecified provider. * ECG-SCAN (05/24/2017 1:51 PM) Narrative Ordered by an unspecified provider. * ECG-SCAN (05/24/2017 1:51 PM) Narrative Ordered by an unspecified provider. * PERIPHERAL SMEAR (05/21/2017 8:42 AM) Only the most recent of 2 results within the time period is included. Component Value Ref Range Peripheral Smear NORMOCYTIC ANEMIA AND POLYCHROMESIA. ABSOLUTE NEUTROPENIA WITH LEFT SHIFT. MILD THROMBOCYTOPENIA WITH NORMAL PLATELET MORPHOLOGY AND 2% BLASTS. Pathologist Signature INTERPRETED BY FEDE WEST M.D. By the PATH SIGNATURE ABOVE, I attest that I have personally formulated the final interpretation expressed in this report and that the above diagnosis is based upon my examination of the slides and/or other material indicated in this report. Specimen Performing Laboratory MAIN LAB [address] [place] [address] * TRANSFUSE RBC'S NON-BLEEDING PT (05/18/2017 10:11 AM) Only the most recent of 16 results within the time period is included. Specimen Performing Laboratory Blood * TYPE & CROSSMATCH (05/18/2017 3:45 AM) Only the most recent of 6 results within the time period is included. Component Value Ref Range Units Ordered 1 Crossmatch Expires 05/21/2017 Record Check FOUND ABO/RH(D) A POS Antibody Screen NEG Electronic Crossmatch YES Unit Number [id number] Blood Component Type RBC,ADSOL,LEUKO REDUCED,IRRADIATED Unit Division 0 Status OF Unit TRANSFUSED Transfusion Status OK TO TRANSFUSE Crossmatch Result COMPATIBLE,ELECTRONIC Specimen Performing Laboratory Blood MAIN LAB [address] [place] [address] * TRANSFUSE APHERESIS PLATELETS (05/14/2017 9:19 AM) Only the most recent of 8 results within the time period is included. * PREPARE APHERESIS PLATELETS (05/14/2017 4:23 AM) Only the most recent of 5 results within the time period is included. Component Value Ref Range Units Ordered 1 Unit Number [id number] Blood Component Type APHERESIS PLT,LEUKO REDUCED,IRRADIATED,1ST CONT. Unit Division 0 Status OF Unit TRANSFUSED Transfusion Status OK TO TRANSFUSE Specimen Performing Laboratory Other (Specify) MAIN LAB [address] [place] [address] * RVP VIRAL PANEL PCR (05/13/2017 2:35 PM) Component Value Ref Range Specimen Source NASAL WASH Adenovirus NOT DETECTED Coronavirus 229E NOT DETECTED Coronavirus HKU1 NOT DETECTED Coronavirus NL63 NOT DETECTED Coronavirus OC43 NOT DETECTED Human Metapneumovirus NOT DETECTED Human NOT DETECTED Rhinovirus/ENTEROVIRUS Influenza A H1N1 2009 NOT DETECTED Influenza A H1 NOT DETECTED Influenza A H3 NOT DETECTED Influenza B NOT DETECTED Parainfluenza 1 NOT DETECTED Parainfluenza 2 NOT DETECTED Parainfluenza 3 NOT DETECTED Parainfluenza 4 NOT DETECTED RSV NOT DETECTED Bordetella Pertussis NOT DETECTED Chlamydophila Pneumoniae NOT DETECTED Mycoplasma Pneumoniae NOT DETECTED Specimen Performing Laboratory Nasal Wash MAIN LAB [address] [place] [address] * RUBIA PATH MOLEC REF LAB SCAN (05/12/2017 4:33 PM) Narrative Ordered by an unspecified provider. * NON-LEASE ADMINISTRATION SUPERVISOR CYTOLOGY (BODY FLUIDS/TISSUE) (05/11/2017 2:55 PM) Component Value Ref Range Cytology [facility] [email or web address] Sonali Snow MD, Director Cytopathology Department of Pathology and Laboratory Medicine [address] [place] [id number] Surgical Pathology Office: [phone] CYTOLOGY REPORT NAME: GISELLE KHAN CYTOLOGY #: [id number] MR #: [id number] ALT ID #: BILLING #: [id number] LOCATION: DATE OF PROCEDURE: 05/11/2017 AGE: 56 SEX: F DATE RECEIVED: 05/11/2017 : 1960 TIME RECEIVED: 14:55 PHYSICIAN: KEENA DRIVER DATE OF REPORT: 05/12/2017 COPY TO: MD BRIE ESTRADA STEVEN Q [facility] SATTERWHITE, LEWIS [facility] NEIL C DUNAVIN, MD MALE,[facility] CRISTINA SY MD DATE OF PRINTIN05/12/2017 Material Received: A: Cerebrospinal Fluid History: 56 year old female with a clinical history of acute myeloid leukemia. Gross Description: (1tp) 1ml clear, colorless fluid. ################################################## ###################### Final Diagnosis: A. Cerebrospinal Fluid: Negative for malignant cells. Please also see concurrent flow cytometry report ([id number]) which shows a negative phenotypic study. Attestation: By this signature, I attest that I have personally formulated the final interpretation expressed in this report and that the above diagnosis is based upon my examination of the slides and/or other material indicated in this report. +++Electronically Signed Out By+++ mark/05/12/2017 Interpreted by: MD Luna Mittal, DO Resident Specimen Performing Laboratory [facility] LAB RESULTS * IR LUMBAR PUNCTURE (05/11/2017 10:28 AM) Specimen Performing Laboratory [facility] RAD RESULTS Impressions 1.Successful fluoroscopic guided lumbar puncture with 5 mL CSF collected and sent for the requested studies. 2.Administration of intrathecal chemotherapy under the direction of the Hematology / Oncology team. I, Joey Mauricio M.D, the attending radiologist, was present for the critical and carrizales portions of the procedure with a midlevel, resident, and/or fellow participating.Overlapping portions were non carrizales and I was immediately available.I interpret the critical and carrizales portion of this procedure to have been needle access. @TT Approved by Bill Hirsch M.D. on 05/11/2017 1:52 PM By my electronic signature, I attest that I have personally reviewed the images for this examination and formulated the interpretations and opinions expressed in this report Finalized by JOEY MAURICIO on 05/11/2017 1:53 PM. Dictated by Bill Hirsch M.D. on 05/11/2017 1:51 PM. Narrative FLUOROSCOPICALLY-GUIDED LUMBAR PUNCTURE WITH INTRATHECAL CHEMOTHERAPY CLINICAL HISTORY: 48-year-old female. AML. MEDICATIONS: 10 mL subcutaneous 2% lidocaine CLINICAL COORDINATOR: JOEY Hirsch MD TOTAL FLUOROSCOPY DOSE: 35.31 mGy INTRATHECAL CHEMOTHERAPY: Administered under the direction of the Hematology / Oncology team. TECHNIQUE AND FINDINGS: The procedures and interpretation described herein were directly supervised and/ or personally performed by JOEY MAURICIO. A brief history and physical was obtained and appropriate imaging was reviewed. An explanation of the procedure including risks, benefits, and alternatives was provided, and informed written consent was obtained. The patient was placed on the examination table in the prone position and the lower back was prepped and draped in the usual sterile fashion. Lidocaine was then injected in the subcutaneous tissue for local anesthesia. Under direct fluoroscopic guidance, a 22-gauge spinal needle was advanced into the intrathecal sac at the level of L3-L4. Position was confirmed by return of cerebral spinal fluid, which was clear. Approximately 5 mL of cerebral spinal fluid was collected and sent to the laboratory for the requested studies. At this time, under the direction and supervision of the Hematology / Oncology service, the designated provider administered intrathecal chemotherapy per their protocol. The inner stylet was then replaced and the needle was removed. Hemostasis was achieved with manual compression and an occlusive, sterile bandage was applied. The patient tolerated the procedure well and left the department in stable condition. Procedure Note Interface, Radiant Results - 05/11/2017 1:56 PM CDT FLUOROSCOPICALLY-GUIDED LUMBAR PUNCTURE WITH INTRATHECAL CHEMOTHERAPY CLINICAL HISTORY: 48-year-old female. AML. MEDICATIONS: 10 mL subcutaneous 2% lidocaine CLINICAL COORDINATOR: JOEY Hirsch MD TOTAL FLUOROSCOPY DOSE: 35.31 mGy INTRATHECAL CHEMOTHERAPY: Administered under the direction of the Hematology / Oncology team. TECHNIQUE AND FINDINGS: The procedures and interpretation described herein were directly supervised and/ or personally performed by JOEY MAURICIO. A brief history and physical was obtained and appropriate imaging was reviewed. An explanation of the procedure including risks, benefits, and alternatives was provided, and informed written consent was obtained. The patient was placed on the examination table in the prone position and the lower back was prepped and draped in the usual sterile fashion. Lidocaine was then injected in the subcutaneous tissue for local anesthesia. Under direct fluoroscopic guidance, a 22-gauge spinal needle was advanced into the intrathecal sac at the level of L3-L4. Position was confirmed by return of cerebral spinal fluid, which was clear. Approximately 5 mL of cerebral spinal fluid was collected and sent to the laboratory for the requested studies. At this time, under the direction and supervision of the Hematology / Oncology service, the designated provider administered intrathecal chemotherapy per their protocol. The inner stylet was then replaced and the needle was removed. Hemostasis was achieved with manual compression and an occlusive, sterile bandage was applied. The patient tolerated the procedure well and left the department in stable condition. IMPRESSION 1. Successful fluoroscopic guided lumbar puncture with 5 mL CSF collected and sent for the requested studies. 2. Administration of intrathecal chemotherapy under the direction of the Hematology / Oncology team. Joey Alvarez M.D, the attending radiologist, was present for the critical and carrizales portions of the procedure with a midlevel, resident, and/or fellow participating. Overlapping portions were non carrizales and I was immediately available. I interpret the critical and carrizlaes portion of this procedure to have been needle access. @TT Approved by Bill Hirsch M.D. on 05/11/2017 1:52 PM By my electronic signature, I attest that I have personally reviewed the images for this examination and formulated the interpretations and opinions expressed in this report Finalized by JOEY MAURICIO on 05/11/2017 1:53 PM. Dictated by Bill Hirsch M.D. on 05/11/2017 1:51 PM. * IR BONE MARROW BIOPSY (05/11/2017 10:28 AM) Only the most recent of 2 results within the time period is included. Specimen Performing Laboratory [facility] RAD RESULTS Impressions Successful image-guided bone marrow aspiration and core biopsy. Joey Alvarez M.D, the attending radiologist, was present for the critical and carrizales portions of the procedure with a midlevel, resident, and/or fellow participating.Overlapping portions were non carrizales and I was immediately available.I interpret the critical and carrizales portion of this procedure to have been needle access. @TT Approved by Bill Hirsch M.D. on 05/11/2017 1:52 PM By my electronic signature, I attest that I have personally reviewed the images for this examination and formulated the interpretations and opinions expressed in this report Finalized by JOEY MAURICIO on 05/11/2017 1:53 PM. Dictated by Bill Hirsch M.D. on 05/11/2017 1:52 PM. Narrative BONE MARROW ASPIRATION AND BIOPSY UNDER FLUOROSCOPIC GUIDANCE CLINICAL HISTORY: 56 year old female, AML. MEDICATIONS: 4 mg IV Versed 200 mcg IV Fentanyl 10 mL subcutaneous 2% lidocaine SEDATION TIME: 9 minutes CLINICAL COORDINATOR: JOEY Hirsch MD TOTAL FLUOROSCOPY DOSE: 2.23 mGy TECHNIQUE AND FINDINGS: The procedures and interpretation described herein were directly supervised and/ or personally performed by JOEY MAURICIO. A brief history and physical was obtained and appropriate imaging was reviewed. An explanation of the procedure including risks, benefits, and alternatives was provided, and informed written consent was obtained. The patient was placed on the examination table in the prone position and the entry site was prepped and draped in the usual sterile fashion. Limited fluoroscopic imaging of the pelvis was performed to identify the left posterior iliac crest. The patient's skin was marked with ink at the appropriate entry site. Lidocaine was then injected into the subcutaneous tissues and along the periosteum at this site for local anesthesia. Using a scalpel blade, a 2 mm dermatotomy was created. A bone marrow aspiration introducer needle was then advanced into the posterior iliac crest and placement was confirmed by fluoroscopy. Multiple aspirations were obtained including a syringe without anticoagulation sent for morphology, and a heparinized syringe for flow cytometry and cytogenetics. A bone marrow core biopsy was then obtained using a core introducer and needle and submitted in formalin for surgical pathology following touch preparation. Hemostasis was achieved with manual compression and a sterile, occlusive bandage was applied. The patient tolerated the procedure well and left the department in stable condition. Procedure Note Interface, Radiant Results - 05/11/2017 1:57 PM CDT BONE MARROW ASPIRATION AND BIOPSY UNDER FLUOROSCOPIC GUIDANCE CLINICAL HISTORY: 56 year old female, AML. MEDICATIONS: 4 mg IV Versed 200 mcg IV Fentanyl 10 mL subcutaneous 2% lidocaine SEDATION TIME: 9 minutes CLINICAL COORDINATOR: JOEY Hirsch MD TOTAL FLUOROSCOPY DOSE: 2.23 mGy TECHNIQUE AND FINDINGS: The procedures and interpretation described herein were directly supervised and/ or personally performed by JOEY MAURICIO. A brief history and physical was obtained and appropriate imaging was reviewed. An explanation of the procedure including risks, benefits, and alternatives was provided, and informed written consent was obtained. The patient was placed on the examination table in the prone position and the entry site was prepped and draped in the usual sterile fashion. Limited fluoroscopic imaging of the pelvis was performed to identify the left posterior iliac crest. The patient's skin was marked with ink at the appropriate entry site. Lidocaine was then injected into the subcutaneous tissues and along the periosteum at this site for local anesthesia. Using a scalpel blade, a 2 mm dermatotomy was created. A bone marrow aspiration introducer needle was then advanced into the posterior iliac crest and placement was confirmed by fluoroscopy. Multiple aspirations were obtained including a syringe without anticoagulation sent for morphology, and a heparinized syringe for flow cytometry and cytogenetics. A bone marrow core biopsy was then obtained using a core introducer and needle and submitted in formalin for surgical pathology following touch preparation. Hemostasis was achieved with manual compression and a sterile, occlusive bandage was applied. The patient tolerated the procedure well and left the department in stable condition. IMPRESSION Successful image-guided bone marrow aspiration and core biopsy. I, Joey Mauricio M.D, the attending radiologist, was present for the critical and carrizales portions of the procedure with a midlevel, resident, and/or fellow participating. Overlapping portions were non carrizales and I was immediately available. I interpret the critical and carrizales portion of this procedure to have been needle access. @TT Approved by Bill Hirsch M.D. on 05/11/2017 1:52 PM By my electronic signature, I attest that I have personally reviewed the images for this examination and formulated the interpretations and opinions expressed in this report Finalized by JOEY MAURICIO on 05/11/2017 1:53 PM. Dictated by Bill Hirsch M.D. on 05/11/2017 1:52 PM. * CSF TUBE VOLUMES (05/11/2017 10:09 AM) Component Value Ref Range CSF Tube 1 5.0 mL CSF Tube 2 0.0 mL CSF Tube 3 0.0 mL CSF Tube 4 0.0 mL Specimen Performing Laboratory LAB RESULTS * LEUKEMIA/LYMPHOMA PANEL FLUID/TISSUE (05/11/2017 10:09 AM) Component Value Ref Range Leuk/Lymph Interpretation SEE PATHOLOGY REPORT Specimen/LLM CSF Specimen Performing Laboratory Cerebrospinal fluid - MAIN LAB Cerebrospinal Fluid [address] [place] [address] * CELL COUNT W/DIFF-CSF (05/11/2017 10:09 AM) Component Value Ref Range Cell Count Tube,CSF TUBE 1 White Blood Cells,CSF 1 <5 /UL Red Blood Cells,CSF 18 /UL Lymphocytes, CSF 64 % Monocyte/Hisotocyte, CSF 36 % Clarity,CSF CLEAR Path Interpretation, CSF NEGATIVE FOR ATYPICAL HEMATOPOIETIC CELLS Pathologist Signature INTERPRETED BY MALINI ROCKWELL M.D. By the PATH SIGNATURE ABOVE, I attest that I have personally formulated the final interpretation expressed in this report and that the above diagnosis is based upon my examination of the slides and/or other material indicated in this report. Specimen Performing Laboratory Cerebrospinal fluid - [facility] Cerebrospinal Fluid [address] [place] [address] * TOTAL PROTEIN-CSF (05/11/2017 10:09 AM) Component Value Ref Range Total Protein,CSF 31 15 - 45 MG/DL Specimen Performing Laboratory Cerebrospinal fluid - [facility] Cerebrospinal Fluid [address] [place] [address] * GLUCOSE-CSF (05/11/2017 10:09 AM) Component Value Ref Range Glucose,CSF 64 40 - 75 MG/DL Xanthrochromia,CSF NONE Specimen Performing Laboratory Cerebrospinal fluid - [facility] Cerebrospinal Fluid [address] [place] [address] * CHROMOSOMES BONE MARROW (05/11/2017 9:51 AM) Only the most recent of 2 results within the time period is included. Component Value Ref Range Chromosomes Bone Marrow SEE PUBLIC TRANSIT TROLLEY DRIVER FOR REPORT Specimen Performing Laboratory Bone Marrow [facility] [address] [place] [address] * CBC (05/08/2017 6:15 AM) Component Value Ref Range White Blood Cells 0.3 (LL)Comment: Value noted, value unchanged 4.5 - 11.0 K/UL RBC 2.32 (L) 4.0 - 5.0 M/UL Hemoglobin 6.9 (L) 12.0 - 15.0 GM/DL Hematocrit 20.0 (L) 36 - 45 % MCV 86.4 80 - 100 FL MCH 29.8 26 - 34 PG MCHC 34.5 32.0 - 36.0 G/DL RDW 17.9 (H) 11 - 15 % Platelet Count 7 (LL)Comment: Value noted, Value unchanged 150 - 400 K/UL MPV 8.3 7 - 11 FL Specimen Performing Laboratory Blood MAIN LAB [address] [place] [address] * C DIFFICILE BY PCR (05/05/2017 10:45 PM) Component Value Ref Range Battery Name C DIFFICILE PCR Specimen Description FECES Special Requests NONE C. Difficile Toxin B PCR NEGATIVE-wait 7 days to repeat test Report Status FINAL 05/06/2017 Specimen Performing Laboratory Feces MAIN LAB [address] [place] [address] * FIBRINOGEN (05/01/2017 12:03 PM) Only the most recent of 23 results within the time period is included. Component Value Ref Range Fibrinogen 214 200 - 400 MG/DL Specimen Performing Laboratory Blood MAIN LAB [address] [place] [address] * HLA CLASS 1A 1B 1C AND 2 PHENO HIGH RES (04/28/2017 12:40 PM) Component Value Ref Range HLA Class 1A 1B 1C and 2 SEE PUBLIC [employer]ANS[employer] TROLLEY DRIVER FOR REPORT Pheno High Res Specimen Performing Laboratory Blood REFERENCE LAB * HLA ANTIBODY ID (04/28/2017 12:40 PM) Component Value Ref Range HLA Antibody ID SEE PUBLIC TRANS[employer] TROLLEY DRIVER FOR REPORT Specimen Performing Laboratory REFERENCE LAB * HLA ANTIBODY SCREEN (04/28/2017 12:40 PM) Component Value Ref Range HLA Antibody Screen SEE PUBLIC TRANSIT TROLLEY DRIVER FOR REPORT Specimen Performing Laboratory Blood REFERENCE LAB * CMV AB IGG (04/28/2017 12:40 PM) Component Value Ref Range CMV, IgG NEG Specimen Performing Laboratory Blood MAIN LAB [address] [place] [address] * HEME PANEL NGS 65 BLD OR BM (04/26/2017 5:13 PM) Component Value Ref Range Heme Panel NGS 65 BLD or SEE PUBLIC TRANSIT TROLLEY DRIVER FOR REPORT Bone Marrow Specimen Performing Laboratory REFERENCE LAB * PROCALCITONIN (04/26/2017 11:57 AM) Component Value Ref Range Procalcitonin 0.51 (H) <0.10 NG/ML Specimen Performing Laboratory Blood MAIN LAB [address] [place] [address] * GRAM STAIN (04/26/2017 12:25 AM) Component Value Ref Range Battery Name GRAM STAIN Specimen Description SPUTUM Special Requests NONE Gram Stain LESS THAN 10/LPF NEUTROPHILS 10-25/LPF SQUAMOUS EPITHELIAL CELLS MANY MIXED BACTERIA Report Status FINAL 04/26/2017 Specimen Performing Laboratory Sputum MAIN LAB [address] [place] [address] * CULTURE-RESP,LOWER W/SENSITIVITY (04/26/2017 12:25 AM) Component Value Ref Range Battery Name LOWER RESP CULTURE Specimen Description SPUTUM Special Requests NONE Direct Gram Stain LESS THAN 10/LPF NEUTROPHILS 10-25/LPF SQUAMOUS EPITHELIAL CELLS MANY MIXED BACTERIA Culture Light growth NORMAL OROPHARYNGEAL MACIE Report Status FINAL 04/28/2017 Specimen Performing Laboratory Sputum MAIN LAB [address] [place] [address] * IONIZED CALCIUM (04/25/2017 9:57 PM) Component Value Ref Range Ionized Calcium 1.08 1.0 - 1.3 MMOL/L Specimen Performing Laboratory Blood MAIN LAB [address] [place] [address] * FE STAIN (04/25/2017 5:13 PM) Component Value Ref Range Bone Marrow FE SEE PATHOLOGY REPORT Specimen Performing Laboratory Bone Marrow [facility] MAIN [facility] [address] [place] [address] * LACTIC ACID (BG - RAPID LACTATE) (04/25/2017 2:35 PM) Component Value Ref Range Lactic Acid,BG 0.7 0.5 - 2.0 MMOL/L Specimen Performing Laboratory Blood [facility] MAIN LAB [address] [place] [address] * IR CENTRAL VENOUS CATHETER (04/25/2017 2:15 PM) Specimen Performing Laboratory [facility] RAD RESULTS Impressions Successful placement of a right tunneled CVC as described above. Approved by Gretchen Avendaño M.D. on 04/26/2017 11:13 AM IFlaco M.D., the attending radiologist, was present for the procedure, personally reviewed the images, and formulated the interpretations and opinions expressed in this report. @TT By my electronic signature, I attest that I have personally reviewed the images for this examination and formulated the interpretations and opinions expressed in this report Finalized by Edmundo Stewart M.D. on 05/03/2017 8:41 AM. Dictated by Gretchen Avendaño M.D. on 04/26/2017 11:10 AM. Narrative RIGHT INTERNAL JUGULARCVC PLACEMENT UNDER ULTRASOUND AND FLUOROSCOPIC GUIDANCE DATE OF PROCEDURE: 04/25/2017 HISTORY: Acute myelogenous leukemia. Chemotherapy. Chronic kidney disease. MEDICATIONS: I was personally responsible for the administration of moderate sedation services during the procedure performed and I confirm requirements described in CPT section on moderate sedation were followed, including the use of an independent trained observer who had no other duties during the procedure. The total supervised sedation time was 19 minutes.See nursing log for complete details; the drugs utilized were:Versed: 2 mg IV; Fentanyl: 100 mcg IV CLINICAL COORDINATOR: Jass Rollins MD DEVICE: 6 Yoruba 24.5 cm triple-lumen central venous catheter TOTAL FLUOROSCOPY DOSE: 181 mGy TECHNIQUE AND FINDINGS: A brief history and physical and informed written consent was obtained. Appropriate imaging was reviewed. The patient was placed on the examination table in the supine position, and the right neck was prepped and draped in the usual sterile fashion. Limited transverse real time images of the neck were obtained via ultrasound, and the internal jugular vein was identified. The vessel was found to be patent. An image was saved to PACS. The skin and subcutaneous tissues were then infiltrated with lidocaine for local anesthesia. Under direct ultrasound guidance, the internal jugular vein was successfully cannulated with a 21 gauge access needle. Position was then confirmed by aspiration of blood. A 0.018 [place] wire was was advanced into the SVC. Using a scalpel blade, a 2mm dermatotomy was created. The access needle was removed and a peel-away sheath was placed. Catheter length was measured, and the catheter was cut to a 24.5 cm length. Attention was turned to the creation of a subcutaneous tunnel. Lidocaine was infiltrated along a tract caudal and lateral to the sheath entry site. A second dermatotomy was made. The tunneling tool was passed and the catheter was pulled through the subcutaneous tunnel. The catheter was advanced through the peel- away sheath, and positioned centrally using fluoroscopy. The sheath was removed , and the catheter was secured in place with the tip in the right atrium. The venotomy site was closed with Dermabond. The catheter was secured to the skin and the ports were flushed and heparinized. A sterile dressing was then applied. The patient tolerated the procedure well and was transported back to her inpatient room in unchanged condition. Procedure Note Interface, Radiant Results - 05/03/2017 8:44 AM CDT RIGHT INTERNAL JUGULAR CVC PLACEMENT UNDER ULTRASOUND AND FLUOROSCOPIC GUIDANCE DATE OF PROCEDURE: 04/25/2017 HISTORY: Acute myelogenous leukemia. Chemotherapy. Chronic kidney disease. MEDICATIONS: I was personally responsible for the administration of moderate sedation services during the procedure performed and I confirm requirements described in CPT section on moderate sedation were followed, including the use of an independent trained observer who had no other duties during the procedure. The total supervised sedation time was 19 minutes. See nursing log for complete details; the drugs utilized were: Versed: 2 mg IV; Fentanyl: 100 mcg IV CLINICAL COORDINATOR: Jass Rollins MD DEVICE: 6 Yoruba 24.5 cm triple-lumen central venous catheter TOTAL FLUOROSCOPY DOSE: 181 mGy TECHNIQUE AND FINDINGS: A brief history and physical and informed written consent was obtained. Appropriate imaging was reviewed. The patient was placed on the examination table in the supine position, and the right neck was prepped and draped in the usual sterile fashion. Limited transverse real time images of the neck were obtained via ultrasound, and the internal jugular vein was identified. The vessel was found to be patent. An image was saved to PACS. The skin and subcutaneous tissues were then infiltrated with lidocaine for local anesthesia. Under direct ultrasound guidance, the internal jugular vein was successfully cannulated with a 21 gauge access needle. Position was then confirmed by aspiration of blood. A 0.018 [place] wire was was advanced into the SVC. Using a scalpel blade, a 2mm dermatotomy was created. The access needle was removed and a peel-away sheath was placed. Catheter length was measured, and the catheter was cut to a 24.5 cm length. Attention was turned to the creation of a subcutaneous tunnel. Lidocaine was infiltrated along a tract caudal and lateral to the sheath entry site. A second dermatotomy was made. The tunneling tool was passed and the catheter was pulled through the subcutaneous tunnel. The catheter was advanced through the peel- away sheath, and positioned centrally using fluoroscopy. The sheath was removed , and the catheter was secured in place with the tip in the right atrium. The venotomy site was closed with Dermabond. The catheter was secured to the skin and the ports were flushed and heparinized. A sterile dressing was then applied. The patient tolerated the procedure well and was transported back to her inpatient room in unchanged condition. IMPRESSION Successful placement of a right tunneled CVC as described above. Approved by Gretchen Avendaño M.D. on 04/26/2017 11:13 AM IFlaco M.D., the attending radiologist, was present for the procedure, personally reviewed the images, and formulated the interpretations and opinions expressed in this report. @TT By my electronic signature, I attest that I have personally reviewed the images for this examination and formulated the interpretations and opinions expressed in this report Finalized by Edmundo Stewart M.D. on 05/03/2017 8:41 AM. Dictated by Gretchen Avendaño M.D. on 04/26/2017 11:10 AM. * D-DIMER (04/25/2017 12:55 PM) Component Value Ref Range D-Dimer 1112 (H) <230 ng/mL DDU Comment: The D-dimer cut off value for deep vein thrombosis and pulmonary embolism is 230 ng/mL DDU. Specimen Performing Laboratory MAIN LAB [address] [place] [address] * CHEST 2 VIEWS (04/25/2017 11:37 AM) Specimen Performing Laboratory [facility] RAD RESULTS Impressions Limited exam demonstrating enlarged cardiac silhouette and probable small bilateral pleural effusions. Finalized by Trudi Alvares M.D. on 04/25/2017 11:42 AM. Dictated by Trudi Alvares M.D. on 04/25/2017 11:38 AM. Narrative Procedure: CHEST 2 VIEWS Clinical Indication: hypoxic Comparison: None Findings: This exam is limited due to the patient's body habitus. The cardiac silhouette is enlarged. The pulmonary vessels are unremarkable. There are probable small bilateral pleural effusions. No definite consolidating pneumonia is seen. No pneumothorax is identified. Procedure Note Interface, Radiant Results - 04/25/2017 11:45 AM CDT Procedure: CHEST 2 VIEWS Clinical Indication: hypoxic Comparison: None Findings: This exam is limited due to the patient's body habitus. The cardiac silhouette is enlarged. The pulmonary vessels are unremarkable. There are probable small bilateral pleural effusions. No definite consolidating pneumonia is seen. No pneumothorax is identified. IMPRESSION Limited exam demonstrating enlarged cardiac silhouette and probable small bilateral pleural effusions. Finalized by Trudi Alvares M.D. on 04/25/2017 11:42 AM. Dictated by Trudi Alvares M.D. on 04/25/2017 11:38 AM. * URINALYSIS, MICROSCOPIC (04/24/2017 9:07 PM) Component Value Ref Range WBCs,UA PACKED 0 - 2 /HPF RBCs,UA PACKED 0 - 3 /HPF MucousUA TRACE Bacteria,UA MODERATE (A) NEG-NEG WBC Clumps PRESENT Squamous Epithelial Cells 10-20 0 - 5 Specimen Performing Laboratory Urine MAIN LAB [address] [place] [address] * URINALYSIS DIPSTICK (04/24/2017 9:07 PM) Component Value Ref Range Color,UA PARRISH Turbidity,UA 2+ (A) CLEAR-CLEAR Specific Codorus-Urine 1.015 1.003 - 1.035 pH,UA 5.0 5.0 - 8.0 Protein,UA 2+ (A) NEG-NEG Glucose,UA NEG NEG-NEG Ketones,UA TRACE (A) NEG-NEG Bilirubin,UA NEG NEG-NEG Blood,UA 2+ (A) NEG-NEG Urobilinogen,UA NORMAL NORM-NORMAL Nitrite,UA NEG NEG-NEG Leukocytes,UA 3+ (A) NEG-NEG Urine Ascorbic Acid, UA POS (A) NEG-NEG Comment: Ascorbic acid is found in various food supplies and dietary supplements, and is reported to cause strong interference with Macroscopic Urinalysis testing for glucose, blood and nitrite, and can result in a false negative result. Specimen Performing Laboratory Urine MAIN LAB [address] [place] [address] * CULTURE-URINE W/SENSITIVITY (04/24/2017 9:07 PM) Component Value Ref Range Battery Name URINE CULTURE Specimen Description URINE, CLEAN CATCH Special Requests NONE Culture <10,000 organisms/ml CONTAMINANT Report Status FINAL 04/26/2017 Specimen Performing Laboratory Urine - Urine,Clean Catch [facility] [address] [place] [address] * BLOOD TYPE CONFIRMATION - ORDER ONLY IF REQUESTED BY LAB (04/24/2017 5:52 PM) Component Value Ref Range ABO/RH(D) A POS Specimen Performing Laboratory MAIN LAB [address] [place] [address] * HEMOGLOBIN A1C (04/24/2017 4:00 PM) Component Value Ref Range Hemoglobin A1C 5.2 4.0 - 6.0 % Comment: The ADA recommends that most patients with type 1 and type 2 diabetes maintain an A1c level <7%. Specimen Performing Laboratory MAIN LAB [address] [place] [address] * 2-D + DOPPLER ECHOCARDIOGRAM (04/24/2017 12:38 PM) Component Value Ref Range BSA 2.58 m2 LVIDD 4.3 3.9 - 5.3 cm IVS 1.1 0.6 - 0.9 cm PW 1.1 0.6 - 0.9 cm LVIDS 3.3 cm LA volume 95.0 22 - 52 mL Sinus 3.3 2.1 - 3.5 cm LA size 5.4 2.7 - 3.8 cm AV peak velocity 2.9 m/s LVOT diameter 1.8 cm TV rest pulmonary artery 29 mmHg pressure Left Ventricle Systolic 3.3 19 - 49 mL Volume FS 23.26 28 - 44 % EF 39.54 % Left Atrium Index 36.82 10 - 32 LVOT area 2.54 cm2 Left Ventricle Systolic 1.28 12 - 30 mL Volume Index ECHO EF 60 % Specimen Performing Laboratory OTHER OUTSIDE LAB Narrative TECHNICALLY LIMITED STUDY. Ultrasonic contrast was used to better define LV systolic function. Underlying rhythm is atrial fibrillation with rapid rate ( 100-105/ min) 1. Normal LV size and systolic function. 2. Unable to assess LV diastolic function 3. Normal RV size and systolic function. 4. Moderately dilated left atrium 5. AV is thickened. It is not well seen and a bicuspid valve cannot be excluded. There is mild to moderate . No AI 6. Other valves are functionally OK. 7. Normal pulmonary artery pressure. 8. No pericardial effusion is seen. Recommend repeating study when HR better controlled to better assess AV stenosis. No prior studies are available for comparison. * BLOOD BANK SAMPLE HOLD (04/24/2017 1:55 AM) Component Value Ref Range BB Sample hold IN LAB Specimen Performing Laboratory MAIN LAB [address] [place] [address] * CULTURE-BLOOD W/SENSITIVITY (04/24/2017 1:55 AM) Component Value Ref Range Battery Name BLOOD CULTURE Specimen Description BLOOD L AC Special Requests NONE Culture NO GROWTH 5 DAYS Report Status FINAL 04/30/2017 Specimen Performing Laboratory Blood MAIN LAB [address] [place] [address] * LEUKEMIA-LYMPHOMA PANEL BLOOD (04/24/2017 1:55 AM) Component Value Ref Range Leuk/Lymph Interpretation SEE PATHOLOGY REPORT Specimen/LLM BLOOD Specimen Performing Laboratory Blood MAIN LAB [address] [place] [address] * VITAMIN B12 (04/24/2017 1:55 AM) Component Value Ref Range Vitamin B12 3074 (H) 180 - 914 PG/ML Specimen Performing Laboratory Blood MAIN LAB [address] [place] [address] * GENERAL RAD CHEST EXTERNAL IMAGING (04/23/2017) Narrative This order has been auto finalized and does not contain a result. from Last 3 Months
--- OUTSIDE RECORDS SUMMARY | 2017-06-11 18:33 | XMS REPORT | Encounter Summary ---
Author Author [facility] Organization [facility] Address Unknown Phone Unavailable Care Team Providers Care Dyeing Machine Back Tender Name Role Phone PCP Unavailable Encounter Details Date Type Department Care Team Description 05/28/2017 Procedure Pass [facility] [address] [place] [address] Social History Tobacco Use Types Packs/Day Years Used Date Never Smoker Smokeless Tobacco: Never Used Alcohol Use Drinks/Week oz/Week Comments No Sex Assigned at Date Recorded Not on file as of this encounter Functional Status Functional Status Response Date of Assessment Does the patient have a hearing impairment: No 05/19/2017 Does the patient have a visual impairment: [...]
--- OUTSIDE RECORDS SUMMARY | 2017-06-11 18:33 | XMS REPORT | Encounter Summary ---
Author Author [facility] Organization [facility] Address Unknown Phone Unavailable Care Team Providers Care Batch Still Operator Name Role Phone PCP Unavailable Encounter Details Date Type Department Care Team Description 06/01/2017 Orders Only INPT PHARMACY Jane Rm, PHARMD [address] [place] [address] Social History Tobacco Use Types Packs/Day Years [...]
--- OUTSIDE RECORDS SUMMARY | 2017-06-11 18:33 | XMS REPORT | Encounter Summary ---
Author Author [facility] Organization [facility] Address Unknown Phone Unavailable Care Team Providers Care Insulation Engineman Name Role Phone PCP Unavailable Reason for Visit * Reason Comments Heme/Onc Care * Auth/Cert Status Reason Specialty Diagnoses / Referred By Referred To Procedures Contact Contact Diagnoses A cute Myelogenous Leukemia Encounter Details Date Type Department Care Team Description 06/02/2017 Office Visit [facility] Anthony Soto MD Acute myeloid leukemia in Cancer Center - BMT Exam [address] remission (HCC) ( Primary [address] [place] [address] Dx);Anemia due to bone [address] marrow failure, [place] [address] unspecified bone marrow [phone] S failure type (HCC);Luana Bonilla MD (acute kidney injury) [address] (HCC) [address] [place] [address] [phone] Social History Tobacco Use Types Packs/Day Years Used Date Never Smoker Smokeless Tobacco: Never Used Alcohol Use Drinks/Week oz/Week Comments No Sex Assigned at Date Recorded Not on file as of this encounter Last Filed Vital Signs Vital Sign Reading Time Taken Blood Pressure 132/77 06/02/2017 11:25 AM CREDIT PORTFOLIO ADVISOR Pulse 89 06/02/2017 11:25 AM CREDIT PORTFOLIO ADVISOR Temperature 36.7 C (98 F) 06/02/2017 11:25 AM CREDIT PORTFOLIO ADVISOR Respiratory Rate 16 06/02/2017 11:25 AM CREDIT PORTFOLIO ADVISOR Oxygen Saturation 99% 06/02/2017 11:25 AM CREDIT PORTFOLIO ADVISOR Inhaled Oxygen - - Concentration Weight 142.2 kg (313 lb 9.6 oz) 06/02/2017 11:25 AM CREDIT PORTFOLIO ADVISOR Height 170.2 cm (5' 7.01") 06/02/2017 11:25 AM CREDIT PORTFOLIO ADVISOR Body Mass Index 49.1 06/02/2017 11:25 AM CREDIT PORTFOLIO ADVISOR in this encounter Functional Status Functional Status Response [...] impairment: No 05/19/2017 as of this encounter Progress Notes * Lisseth Bhatti RN - 06/02/2017 12:10 PM CREDIT PORTFOLIO ADVISOR Diagnosis: AML flt 3 pos Date of diagnosis: 05/04 Cytogenetics/FISH at diagnosis: 44, XX FLT3-ITD detected on both NGS and PCR also NPM1 + Referring physician/phone: inpt BMT transfered from Dr. Jenn Diaz Current therapy: s/p 7+3, Day 36 Plan: HIDAC with referring if possible Not a candidate for transplant Testing: needs repeat marrow to document remission Research/studies: N/A Donor Options (if applicable): N/A Social Situation: lives with in [facility] Insurance: Medicare Coordinator: Sherie Diaz RN 06/02: Pt here today to consent for HiDAC; will admit tomorrow to start chemo. Denies N/V/D. Pt reports that since hospital d/c earlier this month she feels that she has lost strength and has fallen once at home. 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 Reports numbness/ tingling in hands and feet. Pharmacist saw pt to answer medication questions. Admit tomorrow and RTC following hospital d/c. * Luana Velazquez MD - 06/02/2017 12:10 PM CREDIT PORTFOLIO ADVISOR Formatting of this note may be different from the original. Name: Giselle Khan : 1960 AGE: 56 y.o. DATE OF SERVICE: 06/02/2017 Subjective: C/o fatigue and LE edema. no other acute symptoms. Heme/Onc Care Giselle Khan is a 56 y.o. female. Arrived to clinic via wheelchair. Accompanied by . History of Present Illness HPI: Patient presented to the ED at [facility] in [place], [place] 04/23/2017 with complaints of generalized weakness for the previous few weeks. Patient had just completed antibiotic treatment for e-coli UTI. Labs drawn 04/23 revealed elevated WBCs, anemia and thrombocytopenia. Because of this patient was transferred to for further evaluation for possible leukemia. Patient was admitted to 04/24. BMBX performed 04/26 confirmed diagnosis of AML. Patient started 7+3 04/28. Patient received IT cytarabine 05/11. CSF from the LP was negative for malignant cells. Repeat BMBX performed 05/11 showing 1% blasts. Patient was referred to BMT services to discuss transplant options. Timeline of Events: DATES 04/23/2017 Labs CBC: WBC 52.9, Hg 6.2, Hct 19, platelets 34 04/24/2017 Echo EF=60% 04/26/2017 BMBX BM: Acute Myeloid leukemia with monocytic features, involving a hypercellular bone marrow (90%) with decreased trilineage hematopoiesis and 77 % blasts. FLOW: Acute myeloid leukemia, 38% blasts CTYO: 46,XX FLT: 04/28/2017 Chemotherapy Day 1 7+3 05/11/2017 BMBX BM: Hypocellular marrow (5%) with decreased trilineage hematopoiesis and 1% blasts FLOW: Minor population of neoplastic myeloid blasts (0.04%) CTYO: In process 05/11/2017 Chemotherapy IT Cytarabine 05/11/2017 Pathology-CSF Diagnosis: Negative for malignant cells. Review of Systems Constitutional: Positive for fatigue. HENT: Negative. Eyes: Negative. Respiratory: Negative. Cardiovascular: Negative. Gastrointestinal: Negative. Genitourinary: Negative. Musculoskeletal: Negative. Skin: Negative. Neurological: Negative. Psychiatric/Behavioral: Negative. Objective: ALPRAZolam (XANAX) 1 mg tablet Take 1 mg by mouth three times daily as needed for Anxiety. apixaban (ELIQUIS) 5 mg tablet ON HOLD UNTIL COUNT RECOVERY atenolol (TENORMIN) 50 mg tablet Take 0.5 tablets by mouth daily. blood sugar diagnostic ([facility] ULTRA TEST) test strip Use 1 strip as directed before meals and at bedtime. blood sugar diagnostic (ONETOUCH VERIO) test strip Use 1 strip as directed before meals and at bedtime. diltiazem CD (CARDIZEM CD) 240 mg capsule Take 240 mg by mouth daily. ergocalciferol (VITAMIN D-2) 50,000 unit capsule Take 1 capsule by mouth every 7 days. glimepiride (AMARYL) 4 mg tablet Take 4 mg by mouth daily with breakfast. lancets (ONE TOUCH DELICA) MISC Use 1 each as directed four times daily as needed. Diag: Magnesium 200 mg tab Take 2 tablets by mouth twice daily. midostaurin (RYDAPT) 25 mg capsule Take 2 capsules (50mg) by mouth twice daily with meals on Days 8-21 of each chemotherapy cycle. LiquidnetTOUCH VERIO IQ METER kit Use as directed three times daily. potassium chloride (K-DUR) 10 mEq tablet Take 2 tablets by mouth twice daily. Take with a meal and a full glass of water. prochlorperazine maleate (COMPAZINE) 10 mg tablet Take 1 tablet by mouth every 6 hours as needed for Nausea or Vomiting. sodium chloride PF 0.9% 0.9 % syringe Inject 10 mL to area(s) as directed daily. Vitals: 06/02/17 1125 BP: 132/77 Pulse: 89 Resp: 16 Temp: 36.7 C (98 F) TempSrc: Oral SpO2: 99% Weight: (!) 142.2 kg (313 lb 9.6 oz) Height: 170.2 cm (67.01") Body mass index is 49.1 kg/(m^2). Pain Score: Ten Pain Loc: Knee (feet) Pain Addressed: Current regimen working to control pain. Patient Evaluated for a Clinical Trial: No treatment clinical trial available for this patient. Karnofsky Scale: 50% Requires considerable assistance and frequent medical care . Physical Exam Constitutional: She is oriented to person, place, and time. She appears well- developed and well-nourished. Morbid Obesity In wheelchair HENT: Head: Normocephalic and atraumatic. Mouth/Throat: No oropharyngeal exudate. Eyes: EOM are normal. Pupils are equal, round, and reactive to light. No scleral icterus. Neck: Normal range of motion. Neck supple. Cardiovascular: Regular rhythm. No murmur heard. A fib Pulmonary/Chest: Effort normal and breath sounds normal. Abdominal: Soft. Bowel sounds are normal. She exhibits no distension and no mass. Musculoskeletal: Normal range of motion. She exhibits no tenderness. Lymphadenopathy: She has no cervical adenopathy. Neurological: She is alert and oriented to person, place, and time. Skin: Skin is warm and dry. Psychiatric: She has a normal mood and affect. Her behavior is normal. Thought content normal. Vitals reviewed. CBC w/Diff Lab Results Component Value Date/Time WBC 7.1 05/28/2017 03:02 PM RBC 3.18 (L) 05/28/2017 03:02 PM HGB 9.5 (L) 05/28/2017 03:02 PM HCT 29.0 (L) 05/28/2017 03:02 PM MCV 91.0 05/28/2017 03:02 PM MCH 29.7 05/28/2017 03:02 PM MCHC 32.7 05/28/2017 03:02 PM RDW 18.2 (H) 05/28/2017 03:02 PM PLTCT 348 05/28/2017 03:02 PM MPV 7.6 05/28/2017 03:02 PM Lab Results Component Value Date/Time NEUT 34 (L) 05/19/2017 02:10 AM ANC 4.33 05/28/2017 03:02 PM ANC 0.50 (L) 05/19/2017 02:10 AM LYMA 53 (H) 05/19/2017 02:10 AM ALC 0.70 (L) 05/19/2017 02:10 AM LAURA 13 (H) 05/19/2017 02:10 AM AMC 0.20 05/19/2017 02:10 AM EOSA 0 05/19/2017 02:10 AM AEC 0.00 05/19/2017 02:10 AM BASA 0 05/19/2017 02:10 AM ABC 0.00 05/19/2017 02:10 AM Comprehensive Metabolic Profile Lab Results Component Value Date/Time NA 139 05/28/2017 03:02 PM K 4.4 05/28/2017 03:02 PM CL 107 05/28/2017 03:02 PM CO2 26 05/28/2017 03:02 PM GAP 6 05/28/2017 03:02 PM BUN 13 05/28/2017 03:02 PM CR 0.85 05/28/2017 03:02 PM GLU 131 (H) 05/28/2017 03:02 PM Lab Results Component Value Date/Time CA 8.3 (L) 05/28/2017 03:02 PM PO4 5.7 (H) 05/02/2017 04:25 AM ALBUMIN 2.7 (L) 05/28/2017 03:02 PM TOTPROT 6.0 05/28/2017 03:02 PM ALKPHOS 128 (H) 05/28/2017 03:02 PM AST 16 05/28/2017 03:02 PM ALT 10 05/28/2017 03:02 PM TOTBILI 0.5 05/28/2017 03:02 PM GFR >60 05/28/2017 03:02 PM GFRAA >60 05/28/2017 03:02 PM Assessment and Plan: Primary Diagnosis:Acute myeloid leukemia, monocytic subtype, Normal cytogenetics. Mutations in FLT3 ITD, NPM1, WT1 Transferred from [facility] with leucocytosis concerning for AML s/p 7+3 She has FLt3 mutation thus having high risk AML. She is not a BMT candidate due to her comorbidities at this time. Discussed consolidation after the remission BM with iDAC with midostaurin x 3 cycles. - Her bone marrow reveals 4 % blasts with 1.5 % neoplastic blasts. - She will admit tomorrow to start IDAC. She has not received Midostaurin yet, however, working to get it. - will plan to give the chemo at but will have to stay at [facility] post chemo for 3 weeks. Heme: - Pancytopenia due to chemotherapy, monitor for transfusion needs to keep Hgb>7 and platelets >10K. WBC increasing. - Previously on anticoagulation with apixaban for Atrial fibrillation, restart with resolution of thrombocytopenia - FEN/Renal: - Monitor electrolytes, high goal replacement with h/o atrial fibrillation. - Has lower extremity edema - can restart Lasix 40 mg with KCl. ID: - Afebrile. - Presented with UTI and fever - Urine cx from [address] 04/23: + E.Coli resistant to ampicillin, Bactrim, Nitrofurantoin. Intermediate resistance to gent and Unasyn. Susceptible to ceftriaxone, zosyn, meropenem, cipro and aztreonam - . GI: - No nausea, vomiting, has prn anti-emetics available - Good PO intake. - Obese, BMT>40 Endo: - Has type II DM, on glimiperide has been discontinued on admission - Endocrinology consultation obtained and appreciate recommendations; insulin regimen per endo CVS: - H/o atrial fibrillation, rate controlled. She was on METAL FABRICATOR atenolol, diltiazem, furosemide. METAL FABRICATOR lasix on hold and giving as needed. - Mild moderate - Will hold METAL FABRICATOR apixaban with thrombocytopenia - can restart with plts of 147 today - Cardiology opinion appreciated, 2d Echo- normal EF 60%. : Chronic cystitis, mar placed for urinary retention, d/c 05/12. Voiding without difficulty Pulm: Sleep apnea on oxygen at night. Derm: Facial hyperpigmentation on the right side of face. Derm to evaluate. 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
--- OUTSIDE RECORDS SUMMARY | 2017-06-11 18:33 | XMS REPORT | Encounter Summary ---
Author Author [facility] Organization [facility] Address Unknown Phone Unavailable Care Team Providers Care Forward Air Controller/Air Officer Name Role Phone PCP Unavailable Reason for Visit * Auth/Cert Status Reason Specialty Diagnoses / Referred By Referred To Procedures Contact Contact Diagnoses A cute Myelogenous Leukemia Encounter Details Date Type Department Care Team Description 06/03/2017 [address], AML (acute myelogenous - Encounter [address] [facility] leukemia) (HCC) 06/06/2017 [place] [address] [address] [place] [address] [phone] Sernia Rocha MD [address] [place] [address] [phone] Social History Tobacco Use Types Packs/Day Years Used Date Never Smoker Smokeless Tobacco: Never Used Alcohol Use Drinks/Week oz/Week Comments No Sex Assigned at Date Recorded Not on file as of this encounter Last Filed Vital Signs Vital Sign Reading Time Taken Blood Pressure 114/61 06/06/2017 8:14 AM JACKERMAN Pulse 76 06/06/2017 8:14 AM JACKERMAN Temperature 36.6 C (97.8 F) 06/06/2017 8:14 AM JACKERMAN Respiratory Rate - - Oxygen Saturation 99% 06/06/2017 8:14 AM JACKERMAN Inhaled Oxygen - - Concentration Weight 130.2 kg (287 lb) 06/06/2017 2:10 AM JACKERMAN Height 170.2 cm (5' 7.01") 06/03/2017 1:00 PM JACKERMAN Body Mass Index 44.94 06/06/2017 2:10 AM JACKERMAN in this encounter Functional Status Functional Status [...] impairment: No 05/19/2017 as of this encounter Discharge Summaries * Dilcia Navas APRN - 06/06/2017 8:55 AM JACKERMAN Formatting of this note may be different from the original. Physician Discharge Summary Name: Giselle Khan Date Of : 1960 Age: 56 years Admit date: 06/03/2017 Discharge date: 06/06/2017 Attending Physician: Dr. 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 Allergies: Ciprofloxacin; Levofloxacin; Nsaids (non-steroidal anti-inflammatory drug); Bactrim [sulfamethoxazole-trimethoprim]; and Contrast dye iv, iodine containing [iodinated contrast- oral and iv dye] Admission Physical Exam notable for: Physical Exam: Vital Signs: Last Filed In 24 Hours Vital Signs: 24 Hour Range BP: 125/89 (06/03 1251) Temp: 36.6 C (97.9 F) (06/03 1251) Pulse: 59 (06/03 1251) Respirations: 20 PER MINUTE (06/03 1251) SpO2: 99 % (06/03 1251) O2 Delivery: None (Room Air) (06/03 1251) BP: (125)/(89) Temp: [36.6 C (97.9 F)] Pulse: [59] Respirations: [20 PER MINUTE] SpO2: [99 %] O2 Delivery: None (Room Air) Intensity Pain Scale 0-10 (Pain 1): (not recorded) Performance Status (Karnofsky): 70% Cares for self; unable to do normal activity, or active work VS reviewed General: Alert, cooperative, no distress, appears stated age. Obese Head: Normocephalic, without obvious abnormality, atraumatic Eyes: Conjunctivae/corneas clear. PERRL OP: No erythema or ulcers Lungs: Clear to auscultation bilaterally Heart: Regular rate and rhythm, S1, S2 normal Abdomen: Soft, non-tender. Bowel sounds normal. No masses. No organomegaly. Extremities: Extremities normal, no edema or asymmetry Skin: Skin color, texture, turgor normal. No rashes or lesions Neurologic: Grossly intact. Generalized weakness Admission Lab/Radiology studies notable for: Brief Hospital Course: Primary Diagnosis:AML, FLT3 positive. In CR1 but MRD positive at 1.25% atypical cells by flow. Admitted for consolidation cycle of IDAC plus midostaurin - pt has yet received midostaurin but it is approved. S/p cycle # 1 IDAC completed 06/06 Pred eye drops until 06/08 To start Midostaurin 06/10 to 06/22 Twice weekly labs Heme: PRBC for Hg <7 and Plts <10K DC apixaban for Atrial Fibrillation once platelets < 50 FEN/Renal:Monitor renal function, daily weights, I/O. - replace electrolytes per HIGH goal due to AFib - Resume home Lasix and KCL ID:Afebrile, no active infections. To start anti-infective prophylaxis at discharge. Ceftin, Fluc acyclovir GI:Prophy and prn anti-emetics per chemo protocol. Monitor for GI toxicities of treatment. CV: Atrial fibrillation, rate controlled. - cont HAND PROFILER atenolol, diltiazem, Neuro: Risk of neurotoxicity with cytarabine, monitor for any changes. Obesity: Morbidly obese, limited mobility, higher risk of atelectasis. Encourage activity Endo: DM. FSBS and MDCF Pulm: MORENA, uses cpap. Encourage IS. Psych:Supportive family. Condition at Discharge: Stable Discharge Diagnoses: Hospital Problems Active Problems AML (acute myelogenous leukemia) (HCC) Chronic atrial fibrillation (HCC) Admission for antineoplastic chemotherapy Anemia associated with chemotherapy Type 2 diabetes mellitus with hyperglycemia (HCC) Surgical Procedures: None Significant Diagnostic Studies and Procedures: noted in brief hospital course Consults: Endocrinology Patient Disposition: Home with Home Health Care Patient instructions/medications: Other Diet neutropenic diet If you have questions about your diet after you go home, you can call a dietitian at [phone]. Activity as Tolerated It is important to keep increasing your activity level after you leave the hospital. Moving around can help prevent blood clots, lung infection (pneumonia ) and other problems. Gradually increasing the number of times you are up moving around will help you return to your normal activity level more quickly. Continue to increase the number of times you are up to the chair and walking daily to return to your normal activity level. Begin to work toward your normal activity level at discharge as tolerates. Avoid large crowds and those who are ill. Report These Signs and Symptoms Please contact your doctor if you have any of the following symptoms: temperature higher than 100.5 degrees F or greater, uncontrolled pain, persistent nausea and/or vomiting, difficulty breathing, chest pain, severe abdominal pain, headache, unable to urinate, unable to have bowel movement, drainage with a foul odor or questions/concerns. Questions About Your Stay For questions or concerns regarding your hospital stay. Call [phone] Discharging attending physician: DOUGLAS GORDON [[id number]] Tunneled Catheter Line Nursing Home Care Instructions: The bandage over the catheter exit site must be kept clean and dry. Only a healthcare provider may change the dressing. Place a waterproof covering, such as plastic wrap, over the catheter when showering. Never submerge the catheter in a bathtub, hot tub, or swimming pool. Flush each lumen with 10ml normal saline daily as instructed. Need to have dressing changed weekly and as needed if it becomes unattached to skin. Current Discharge Medication List START taking these medications Details acyclovir (ZOVIRAX) 800 mg tablet Take 1 tablet by mouth twice daily. Qty: 60 tablet, Refills: 1 PRESCRIPTION TYPE: Normal cefuroxime (CEFTIN) 500 mg tablet Take 1 tablet by mouth twice daily. Qty: 60 tablet, Refills: 1 PRESCRIPTION TYPE: Normal fluconazole (DIFLUCAN) 200 mg tablet Take 2 tablets by mouth daily. Qty: 60 tablet, Refills: 1 PRESCRIPTION TYPE: Normal prednisolone acetate (PRED FORTE) 1 % ophthalmic suspension Apply 2 drops to both eyes every 6 hours for 3 days. Qty: 2 mL, Refills: 0 PRESCRIPTION TYPE: No Print Associated Diagnoses: Acute myeloid leukemia in remission (HCC) CONTINUE these medications which have been CHANGED or REFILLED Details apixaban (ELIQUIS) 5 mg tablet Take 1 tablet by mouth twice daily. HOLD when platelets <50,000 Qty: 60 tablet PRESCRIPTION TYPE: No Print sodium chloride PF 0.9% 0.9 % syringe Inject 10 mL to area(s) as directed daily. Flush each lumen of central line with 10ml normal saline daily as instructed. Qty: 300 mL, Refills: 3 PRESCRIPTION TYPE: No Print CONTINUE these medications which have NOT CHANGED Details allopurinol (ZYLOPRIM) 300 mg tablet Take 300 mg by mouth daily. Take with food. PRESCRIPTION TYPE: Historical Med ALPRAZolam (XANAX) 1 mg tablet Take 1 mg by mouth twice daily. PRESCRIPTION TYPE: Historical Med atenolol (TENORMIN) 50 mg tablet Take 0.5 tablets by mouth daily. PRESCRIPTION TYPE: No Print Comments: Do not fill !! blood sugar diagnostic (ONETOUCH ULTRA TEST) test strip Use 1 strip as directed before meals and at bedtime. Qty: 300 strip, Refills: 3 PRESCRIPTION TYPE: Normal !! blood sugar diagnostic (ONETOUCH VERIO) test strip Use 1 strip as directed before meals and at bedtime. Qty: 300 strip, Refills: 3 PRESCRIPTION TYPE: Normal cholecalciferol (VITAMIN D-3) 1,000 units tablet Take 2,000 Units by mouth daily. PRESCRIPTION TYPE: Historical Med diltiazem CD (CARDIZEM CD) 240 mg capsule Take 240 mg by mouth daily. PRESCRIPTION TYPE: Historical Med FUROSEMIDE (LASIX PO) Take by mouth every 48 hours. PRESCRIPTION TYPE: Historical Med glimepiride (AMARYL) 4 mg tablet Take 4 mg by mouth daily with breakfast. PRESCRIPTION TYPE: Historical Med lancets (ONE TOUCH DELICA) MISC Use 1 each as directed four times daily as needed. Diag: Qty: 300 each, Refills: 11 PRESCRIPTION TYPE: Normal Magnesium 200 mg tab Take 2 tablets by mouth twice daily. Qty: 120 tablet, Refills: 2 PRESCRIPTION TYPE: Normal midostaurin (RYDAPT) 25 mg capsule Take 2 capsules (50mg) by mouth twice daily with meals on Days 8-21 of each chemotherapy cycle. Qty: 56 capsule, Refills: 0 PRESCRIPTION TYPE: Normal Associated Diagnoses: Acute myeloid leukemia not having achieved remission (HCC ) ONETOUCH VERIO IQ METER kit Use as directed three times daily. Qty: 1 each, Refills: 3 PRESCRIPTION TYPE: Normal potassium chloride (K-DUR) 10 mEq tablet Take 2 tablets by mouth twice daily. Take with a meal and a full glass of water. Qty: 120 capsule, Refills: 2 PRESCRIPTION TYPE: Normal prochlorperazine maleate (COMPAZINE) 10 mg tablet Take 1 tablet by mouth every 6 hours as needed for Nausea or Vomiting. Qty: 30 tablet, Refills: 2 PRESCRIPTION TYPE: Normal !! - Potential duplicate medications found. Please discuss with provider. The following medications were removed from your list. This list includes medications discontinued this stay and those removed from your prior med list in our system ergocalciferol (VITAMIN D-2) 50,000 unit capsule Scheduled appointments: [place] [address] Appt: 06/09/17 at 2:00pm with Dr. Rodger Wiseman Pending items needing follow up: -will need weekly EKGs while on midostaurin -hold apixaban once plts <50,000 Signed: Dilcia Navas APRN 06/06/2017 cc: Primary Care Physician: Jacquelin Atkinson Verified Referring physicians: Self, Referral Additional provider(s): in this encounter Discharge Instructions * Discharge Instr - Appointments - Gretchen Bui - 06/04/2017 2:05 [place] [address] Appt: 06/09/17 at 2:00pm with Dr. Rodger Wiseman in this encounter Medications at Time of Discharge Medication Sig. Disp. Refills Start Date End Date allopurinol (ZYLOPRIM) Take 300 mg by mouth 300 mg tablet daily. Take with food. ALPRAZolam (XANAX) 1 mg Take 1 mg by mouth twice tablet daily. apixaban (ELIQUIS) 5 mg Take 1 tablet by mouth 60 tablet 06/06/2017 tablet twice daily. HOLD when platelets <50,000 atenolol (TENORMIN) 50 mg Take 0.5 tablets by mouth 05/19/2017 tablet daily. blood sugar diagnostic Use 1 strip as directed 300 strip 3 05/19/2017 (WilocityTOUCH ULTRA TEST) before meals and at test strip bedtime. blood sugar diagnostic Use 1 strip as directed 300 strip 3 05/19/2017 (ONETOUCH VERIO) test before meals and at strip bedtime. cefuroxime (CEFTIN) 500 Take 1 tablet by mouth 60 tablet 1 06/07/2017 mg tablet twice daily. cholecalciferol (VITAMIN Take 2,000 Units by mouth D-3) 1,000 units tablet daily. diltiazem CD (CARDIZEM Take 240 mg by mouth CD) 240 mg capsule daily. fluconazole (DIFLUCAN) Take 2 tablets by mouth 60 tablet 1 06/07/2017 200 mg tablet daily. FUROSEMIDE (LASIX PO) Take by mouth every 48 hours. glimepiride (AMARYL) 4 mg Take 4 mg by mouth daily tablet with breakfast. lancets (ONE TOUCH Use 1 each as directed 300 each 11 05/19/2017 DELICA) MISC four times daily as needed. Diag: Magnesium 200 mg tab Take 2 tablets by mouth 120 tablet 2 05/21/2017 twice daily. midostaurin (RYDAPT) 25 Take 2 capsules (50mg) by 56 capsule 0 2016 mg capsuleIndications: mouth twice daily with Acute myeloid leukemia meals on Days 8-21 of not having achieved each chemotherapy cycle. remission (HCC) ONETOUCH VERIO IQ METER Use as directed three 1 each 3 05/19/2017 kit times daily. potassium chloride Take 2 tablets by mouth 120 capsule 2 05/21/2017 (K-DUR) 10 mEq tablet twice daily. Take with a meal and a full glass of water. prochlorperazine maleate Take 1 tablet by mouth 30 tablet 2 2016 (COMPAZINE) 10 mg tablet every 6 hours as needed for Nausea or Vomiting. sodium chloride PF 0.9% Inject 10 mL to area(s) 300 mL 3 06/06/2017 0.9 % syringe as directed daily. Flush each lumen of central line with 10ml normal saline daily as instructed. acyclovir (ZOVIRAX) 800 Take 1 tablet by mouth 60 tablet 1 06/07/2017 06/07/2017 mg tablet twice daily. prednisolone acetate Apply 2 drops to both 2 mL 0 06/06/20172016 (PRED FORTE) 1 % eyes every 6 hours for 3 ophthalmic days. suspensionIndications: Acute myeloid leukemia in remission (HCC) as of this encounter Progress Notes * Ofelia Arzate RN - 06/06/2017 12:10 PM JACKERMAN ..Giselle Khan discharged on 06/06/2017. . Discharge instructions reviewed with family. Valuables returned: Personal Items / Valuables: (glasses, phone, hat, clothes). Home medications: . Functional assessment at discharge complete: Yes . * Ofelia Arzate RN - 06/06/2017 12:10 PM JACKERMAN ..Shift: day NEWS Score: 0800 0 Pain: none reported Nutrition: regular diet. pt ate 100% breakfast. GI/: voiding adequate amounts of urine without difficulty. no BM this shift. no N/V reported. Activity: stand by with walker. pt up to get dressed this morning Family: supportive at bedside. Last Shower: 06/05/17 New Events or Follow-up: * Douglas Gordon MD - 06/06/2017 8:37 AM JACKERMAN Formatting of this note may be different from the original. Bone Marrow Transplant Progress Note Today's Date: 06/06/2017 Name: Giselle Khan Admission Date: 06/03/2017 LOS: LOS: 3 days Assessment/Plan: Active Problems: AML (acute myelogenous leukemia) (HCC) Chronic atrial fibrillation (HCC) Admission for antineoplastic chemotherapy Anemia associated with chemotherapy Type 2 diabetes mellitus with hyperglycemia (HCC) Primary Diagnosis: AML, FLT3 positive. In CR1 but MRD positive at 1.25% atypical cells by flow. Admitted for consolidation cycle of IDAC plus midostaurin - pt has yet received midostaurin but it is approved. S/p cycle # 1 IDAC completed 06/06 Pred eye drops until 06/08 To start Midostaurin 06/10 to 06/22 Twice weekly labs Heme: PRBC for Hg <7 and Plts <10K DC apixaban for Atrial Fibrillation once platelets < 50 FEN/Renal: Monitor renal function, daily weights, I/O. - replace electrolytes per HIGH goal due to AFib - Resume home Lasix and KCL ID: Afebrile, no active infections. To start anti-infective prophylaxis at discharge. Ceftin, Fluc acyclovir GI: Prophy and prn anti-emetics per chemo protocol. Monitor for GI toxicities of treatment. CV: Atrial fibrillation, rate controlled. - cont HAND PROFILER atenolol, diltiazem, Neuro: Risk of neurotoxicity with cytarabine, monitor for any changes. Obesity: Morbidly obese, limited mobility, higher risk of atelectasis. Encourage activity Endo: DM. FSBS and MDCF Pulm: MORENA, uses cpap. Encourage IS. Psych: Supportive family. DC to Dr[facility] Ald[facility] at [address] Subjective: Giselle Kahn is a 57 y.o. female. Responded well to diuresis Ok to DC home Review of Systems: Constitutional: negative for fevers and chills Eyes: no vision changes Ears, nose, mouth, throat, and face: no nosebleeds, gums bleeding, nasal congestion, sore throat Respiratory: negative for cough, increased work of breathing or wheezing Cardiovascular: negative for chest pain, palpitations, lower extremity edema Gastrointestinal: Denies nausea MSK: Mild edema Genitourinary: no hematuria, dysuria or increase in urinary frequency Integument/breast: negative for rash and skin lesions Hematologic/lymphatic: negative for bleeding Neurological: 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 Generalized weakness and limited mobility Objective: Medications: Scheduled Meds: acyclovir (ZOVIRAX) tablet 800 mg 800 mg Oral BID allopurinol (ZYLOPRIM) tablet 300 mg 300 mg Oral QDAY ALPRAZolam (XANAX) tablet 1 mg 1 mg Oral BID apixaban (ELIQUIS) tablet 5 mg 5 mg Oral BID atenolol (TENORMIN) tablet 25 mg 25 mg Oral QDAY [START ON 06/08/2017] cefuroxime (CEFTIN) tablet 500 mg 500 mg Oral BID diltiazem CD (cardIZEM CD) capsule 240 mg 240 mg Oral QDAY [START ON 06/08/2017] fluconazole (DIFLUCAN) tablet 400 mg 400 mg Oral QDAY insulin aspart (NOVOLOG FLEXPEN) injection PEN 0-7 Units 0-7 Units Subcutaneous ACHS insulin aspart (NOVOLOG FLEXPEN) injection PEN 2 Units 2 Units Subcutaneous TID w/ meals insulin glargine (LANTUS SOLOSTAR) injection PEN 6 Units 6 Units Subcutaneous QDAY(12) prednisolone acetate (PRED FORTE) 1 % ophthalmic suspension 2 drop 2 drop Both Eyes Q6H* Continuous Infusions: sodium chloride 0.9 % infusion 150 mL/hr at 06/06/17 0521 PRN and Respiratory Meds:alteplase PRN (Hydroelectric Plant Electrical Engineer from Rx), alum/mag hydroxide/ simeth Q6H PRN, magnesium sulfate 4 g/50 mL PRN, magnesium sulfate 4 g/50 mL PRN , melatonin QHS PRN, oxyCODONE Q4H PRN, potassium chloride PRN (Hydroelectric Plant Electrical Engineer from Rx ) OR potassium chloride SR PRN (Hydroelectric Plant Electrical Engineer from Rx), prochlorperazine Q6H PRN * *OR prochlorperazine Q6H PRN, senna/docusate QDAY PRN, sodium chloride 0.9% irrigation bottle PRN Vital Signs: Last Filed Vital Signs: 24 Hour Range BP: 114/61 (06/06 814) Temp: 36.6 C (97.8 F) (06/06 814) Pulse: 76 (06/06 814) Respirations: 18 PER MINUTE (06/06 814) SpO2: 99 % (06/06 814) O2 Delivery: Nasal Cannula (06/06 814) BP: (114-143)/(61-80) Temp: [36.2 C (97.2 F)-36.9 C (98.4 F)] Pulse: [68-97] Respirations: [16 PER MINUTE-20 PER MINUTE] SpO2: [96 %-99 %] O2 Delivery: Nasal Cannula Intensity Pain Scale 0-10 (Pain 1): (not recorded) Vitals: 06/04/17 0434 06/05/17 0400 06/06/17 0210 Weight: 127.9 kg (281 lb 15.5 oz) 134.3 kg (296 lb) 130.2 kg (287 lb) Intake/Output Summary: (Last 24 hours) Intake/Output Summary (Last 24 hours) at 06/06/17 0837 Last data filed at 06/06/17 0706 Gross per 24 hour Intake 5199 ml Output 5240 ml Net -41 ml Physical Exam: Performance Status (Karnofsky): 70% Cares for self; unable to do normal activity, or active work VS reviewed General: Alert, cooperative, no distress, appears stated age + obese Head: Normocephalic, without obvious abnormality, atraumatic Eyes: Anicteric sclera OP: Moist mucosa, no lesions Lungs: CTAB without wheezes or rales Heart: Regular rate and rhythm Abdomen: Soft, non-tender. Bowel sounds normal. No masses. No organomegaly. Extremities: Trace LE edema Skin: No rashes or lesions Neurologic: Grossly intact, generalized weakness Ventilator/Respiratory Support: No Lab Review: 24-hour labs: Results for orders placed or performed during the hospital encounter of (from the past 24 hour(s)) POC GLUCOSE Collection Time: 06/05/17 9:34 AM Result Value Ref Range Glucose, POC 161 (H) 70 - 100 MG/DL POC GLUCOSE Collection Time: 06/05/17 2:16 PM Result Value Ref Range Glucose, POC 171 (H) 70 - 100 MG/DL COMPREHENSIVE METABOLIC PANEL Collection Time: 06/05/17 5:06 PM Result Value Ref Range Sodium 143 137 - 147 MMOL/L Potassium 4.0 3.5 - 5.1 MMOL/L Chloride 111 (H) 98 - 110 MMOL/L Glucose 133 (H) 70 - 100 MG/DL Blood Urea Nitrogen 27 (H) 7 - 25 MG/DL Creatinine 0.86 0.4 - 1.00 MG/DL Calcium 8.5 8.5 - 10.6 MG/DL Total Protein 6.3 6.0 - 8.0 G/DL Total Bilirubin 0.7 0.3 - 1.2 MG/DL Albumin 3.0 (L) 3.5 - 5.0 G/DL Alk Phosphatase 71 25 - 110 U/L AST (SGOT) 14 7 - 40 U/L CO2 25 21 - 30 MMOL/L ALT (SGPT) 10 7 - 56 U/L Anion Gap 7 3 - 12 eGFR Non >60 >60 mL/min eGFR >60 >60 mL/min BNP (B-TYPE NATRIURETIC PEPTI) Collection Time: 06/05/17 5:06 PM Result Value Ref Range B Type Natriuretic Peptide 342.0 (H) 0 - 100 PG/ML MAGNESIUM Collection Time: 06/05/17 5:06 PM Result Value Ref Range Magnesium 1.8 1.6 - 2.6 mg/dL POC GLUCOSE Collection Time: 06/05/17 5:07 PM Result Value Ref Range Glucose, POC 138 (H) 70 - 100 MG/DL POC GLUCOSE Collection Time: 06/05/17 9:26 PM Result Value Ref Range Glucose, POC 207 (H) 70 - 100 MG/DL CBC AND DIFF Collection Time: 06/06/17 2:00 AM Result Value Ref Range White Blood Cells 5.5 4.5 - 11.0 K/UL RBC 3.36 (L) 4.0 - 5.0 M/UL Hemoglobin 9.9 (L) 12.0 - 15.0 GM/DL Hematocrit 30.6 (L) 36 - 45 % MCV 91.2 80 - 100 FL MCH 29.5 26 - 34 PG MCHC 32.4 32.0 - 36.0 G/DL RDW 21.9 (H) 11 - 15 % Platelet Count 265 150 - 400 K/UL MPV 7.7 7 - 11 FL Neutrophils 97 (H) 41 - 77 % Lymphocytes 2 (L) 24 - 44 % Monocytes 1 (L) 4 - 12 % Eosinophils 0 0 - 5 % Basophils 0 0 - 2 % Absolute Neutrophil Count 5.30 1.8 - 7.0 K/UL Absolute Lymph Count 0.10 (L) 1.0 - 4.8 K/UL Absolute Monocyte Count 0.10 0 - 0.80 K/UL Absolute Eosinophil Count 0.00 0 - 0.45 K/UL Absolute Basophil Count 0.00 0 - 0.20 K/UL BASIC METABOLIC PANEL Collection Time: 06/06/17 2:00 AM Result Value Ref Range Sodium 142 137 - [...] 10.6 MG/DL eGFR Non >60 >60 mL/min eGFR >60 >60 mL/min Point of Care Testing: (Last 24 hours): Glucose: (!) 187 (06/06/17 0200) POC Glucose (Download): (!) 207 (06/05/179) Radiology Review: No pertinent radiology. Staff name: Douglas Gordon MD Date: 06/06/2017 * Tabitha Alvarado RN - 06/06/2017 5:36 AM JACKERMAN Shift: 7p-7a NEWS Score: 1, 0, 2 Pain: Pt with no complaints of pain this shift. Nutrition: Pt is on a regular diet. Adequate appetite. GI/: Pt's last bowel movement was 06/05. Adequate urine output. Clear and light yellow. No complaints of nausea. Activity: Pt is up with standby assist. No complaints of dizziness. Steady gait. Family: No family present this shift. Last Shower: 06/05 New Events or Follow-up: -pt on 2L nasal cannula throughout the night while sleeping -no replacements needed this AM -no acute events overnight -plant to discharge today * Tabitha Alvarado RN - 06/06/2017 5:13 AM J[facility]ERMAN CHEMO NOTE Verified chemo consent signed and in chart. yes Verified initiate chemo order in O2 yes Blood return positive via: Right chest PICC, positive blood return in mckeon lumen Premedications/Prehydration given as ordered. N/A BSA and dose double checked (agree with orders as written) with: yes, with Summer Mckeon RN chemo certified Arm band verified at bedside with second RN (same RN as above unless otherwise noted). yes Labs/applicable tests checked: Signature log signed Chemo drug/dose/route: cytarabine (CYTOSAR) 3,810 mg in sodium chloride 0.9% (NS ) 288.1 mL IVPB(C100) Rate verified with second RN (same RN as above unless otherwise noted). Patient education offered and stated understanding: No questions at this time. * Pierce Sorneson, RT - 06/06/2017 12:25 AM J[facility]ERMAN Formatting of this note may be different from the original. RESPIRATORY THERAPY ADULT PROTOCOL EVALUATION RESPIRATORY PROTOCOL PLAN Medications Note: If indicated by protocol, medication orders will be placed by therapist. Procedures Oxygen/Humidity: O2 to keep SpO2 > 92% Monitoring: Pulse oximetry continuous (document SpO2 results Q4h) PATIENT EVALUATION RESULTS Chart Review * Pulmonary Hx: Smoker in home OR smoking cessation > 8 weeks * Surgical Hx: No surgery OR last surgery > 6 weeks ago OR trach/stoma (BA) * Chest X-Ray: Clear OR not available * PFT/Oxygenation: FEV1, PEFR < 70% OR Pa02 < 70 RA OR Sp02 <92% RA OR Fi02 > 0.21 to keep Sp02 > 92% OR < 24 hours post-op (02 & oxim) OR chronic C02 retention (C02) (o2) Patient Assessment * Respiratory Pattern: Regular pattern and rate OR good chest excursion with deep breathing * Breath Sounds: Clear and able to auscultate bases posteriorly * Cough / Sputum: Strong, effective cough OR nonproductive * Mental Status: Alert, oriented, cooperative * Activity Level: Ambulatory with assistance Priority Index Total Points: 4 Points * Priority Index: 1 PRIORITY INDEX GUIDELINES* Priority Points 1 0-9 points 2 9-18 points 3 > 18 points + Pulm Dx or Home Rx *Higher points indicate higher acuity. Therapist: Pierce Sorenson, RT Date: 06/06/2017 [place] AC=Airway clearance AM=Aerosolized medication BA=[place] aerosol DB&C=Deep breathe & cough FEV1=Forced expiratory volume in first second) IC=Inspiratory capacity LE=Lung expansion MDI=Metered dose inhaler Neb=Nebulizer O2=Oxygen Oxim=Oximetry PEFR=Peak expiratory flow rate SUPERVISOR LIME=Rapid Response Team * Bryanna Good, RN - 2017 5:25 PM [facility] Formatting of this note may be different from the original. CHEMO NOTE Verified chemo consent signed and in chart. Verified initiate chemo order in O2 Blood return positive via: león lumen right chest PICC Premedications/Prehydration given as ordered. BSA and dose double checked (agree with orders as written) with: Enma Eugene Arm band verified at bedside with second RN (same RN as above unless otherwise noted). Labs/applicable tests checked: AM labs 06/05 Chemo drug/dose/route: cytarabine (CYTOSAR) 3,810 mg in sodium chloride 0.9% (NS) 288.1 mL IVPB(C100 ) : Dose 1.5 g/m2 2.54 m2 (Treatment Plan Recorded) : Admin Dose 3, 810 mg : 96 mL/hr : Intravenous : EVERY 12 HOURS Rate verified with second RN (same RN as above unless otherwise noted). Patient education offered and stated understanding * Douglas Gordon MD - 2017 12:03 PM J[facility] Formatting of this note may be different from the original. Bone Marrow Transplant Progress Note Today's Date: 2017 Name: Giselle Khan Admission Date: 06/03/2017 LOS: LOS: 2 days Assessment/Plan: Active Problems: AML (acute myelogenous leukemia) (HCC) Chronic atrial fibrillation (HCC) Admission for antineoplastic chemotherapy Anemia associated with chemotherapy Type 2 diabetes mellitus with hyperglycemia (HCC) Primary Diagnosis: AML, FLT3 positive. In CR1 but MRD positive at 1.25% atypical cells by flow. Admitted for consolidation cycle of IDAC plus midostaurin - pt has yet received midostaurin but it is approved. Day 3 IDAC cycle #1 (plan for 6 doses, dosed q12h) Heme: Anemia from prior chemotherapy, expect pancytopenia due to chemotherapy. Monitor cbc. No transfusions today - continue apixaban for AC for Atrial Fibrillation until platelets <25K FEN/Renal: Monitor renal function, daily weights, I/O. - replace electrolytes per HIGH goal due to AFib - lasix 60 IV x 1, rpt BMP at 4pm ID: Afebrile, no active infections. To start anti-infective prophylaxis at discharge. GI: Prophy and prn anti-emetics per chemo protocol. Monitor for GI toxicities of treatment. CV: Atrial fibrillation, rate controlled. On anticoagulation until platelets < 25K. - cont HAND PROFILER atenolol, diltiazem, Neuro: Risk of neurotoxicity with cytarabine, monitor for any changes. Obesity: Morbidly obese, limited mobility, higher risk of atelectasis. Encourage OOB/IS Endo: DM. FSBS and MDCF. Consult Endocrine for co-management Pulm: MORENA, uses cpap. Encourage IS. Psych: Supportive family. Will stay at [facility] at discharge Subjective: Giselle Khan is a 57 y.o. female. Feeling wel Fluid up, will proceed with diuresis Review of Systems: Constitutional: negative for fevers and chills Eyes: no vision changes Ears, nose, mouth, throat, and face: no nosebleeds, gums bleeding, nasal congestion, sore throat Respiratory: negative for cough, increased work of breathing or wheezing Cardiovascular: negative for chest pain, palpitations, lower extremity edema Gastrointestinal: Denies nausea MSK: Mild edema Genitourinary: no hematuria, dysuria or increase in urinary frequency Integument/breast: negative for rash and skin lesions Hematologic/lymphatic: negative for bleeding Neurological: 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 Generalized weakness and limited mobility Objective: Medications: Scheduled Meds: acyclovir (ZOVIRAX) tablet 800 mg 800 mg Oral BID allopurinol (ZYLOPRIM) tablet 300 mg 300 mg Oral QDAY ALPRAZolam (XANAX) tablet 1 mg 1 mg Oral BID apixaban (ELIQUIS) tablet 5 mg 5 mg Oral BID atenolol (TENORMIN) tablet 25 mg 25 mg Oral QDAY [START ON 06/08/2017] cefuroxime (CEFTIN) tablet 500 mg 500 mg Oral BID cytarabine (CYTOSAR) 3,810 mg in sodium chloride 0.9% (NS) 288.1 mL IVPB(C100) 1.5 g/m2 (Treatment Plan Recorded) Intravenous Q12H* dexamethasone (DECADRON) tablet 12 mg 12 mg Oral Q24H* diltiazem CD (cardIZEM CD) capsule 240 mg 240 mg Oral QDAY [START ON 06/08/2017] fluconazole (DIFLUCAN) tablet 400 mg 400 mg Oral QDAY furosemide (LASIX) injection 40 mg 40 mg Intravenous ONCE insulin aspart (NOVOLOG FLEXPEN) injection PEN 0-7 Units 0-7 Units Subcutaneous ACHS insulin aspart (NOVOLOG FLEXPEN) injection PEN 4 Units 4 Units Subcutaneous TID w/ meals insulin glargine (LANTUS SOLOSTAR) injection PEN 12 Units 12 Units Subcutaneous QDAY(12) ondansetron (ZOFRAN) tablet 16 mg 16 mg Oral Q24H* prednisolone acetate (PRED FORTE) 1 % ophthalmic suspension 2 drop 2 drop Both Eyes Q6H* Continuous Infusions: sodium chloride 0.9 % infusion 150 mL/hr at 06/05/17 0502 PRN and Respiratory Meds:alteplase PRN (Hydroelectric Plant Electrical Engineer from Rx), alum/mag hydroxide/ simeth Q6H PRN, magnesium sulfate 4 g/50 mL PRN, magnesium sulfate 4 g/50 mL PRN , melatonin QHS PRN, oxyCODONE Q4H PRN, potassium chloride PRN (Hydroelectric Plant Electrical Engineer from Rx ) OR potassium chloride SR PRN (Hydroelectric Plant Electrical Engineer from Rx), prochlorperazine Q6H PRN * *OR prochlorperazine Q6H PRN, senna/docusate QDAY PRN, sodium chloride 0.9% irrigation bottle PRN Vital Signs: Last Filed Vital Signs: 24 Hour Range BP: 138/63 (06/05 1125) Temp: 36.8 C (98.2 F) (06/05 1125) Pulse: 80 (06/05 1125) Respirations: 18 PER MINUTE (06/05 1125) SpO2: 99 % (06/05 1125) O2 Delivery: None (Room Air) (06/05 1125) BP: (119-138)/(62-82) Temp: [36.3 C (97.3 F)-37 C (98.6 F)] Pulse: [70-94] Respirations: [18 PER MINUTE-20 PER MINUTE] SpO2: [96 %-100 %] O2 Delivery: None (Room Air) Intensity Pain Scale 0-10 (Pain 1): (not recorded) Vitals: 06/04/17 0207 06/04/17 0434 06/05/17 0400 Weight: (!) 151.6 kg (334 lb 3.5 oz) 127.9 kg (281 lb 15.5 oz) 134.3 kg (296 lb ) Intake/Output Summary: (Last 24 hours) Intake/Output Summary (Last 24 hours) at 06/05/17 1203 Last data filed at 06/05/17 1100 Gross per 24 hour Intake 4806 ml Output 1000 ml Net 3806 ml Physical Exam: Performance Status (Karnofsky): 70% Cares for self; unable to do normal activity, or active work VS reviewed General: Alert, cooperative, no distress, appears stated age + obese Head: Normocephalic, without obvious abnormality, atraumatic Eyes: Anicteric sclera OP: Moist mucosa, no lesions Lungs: CTAB without wheezes or rales Heart: Regular rate and rhythm Abdomen: Soft, non-tender. Bowel sounds normal. No masses. No organomegaly. Extremities: Trace LE edema Skin: No rashes or lesions Neurologic: Grossly intact, generalized weakness Ventilator/Respiratory Support: No Lab Review: 24-hour labs: Results for orders placed or performed during the hospital encounter of (from the past 24 hour(s)) POC GLUCOSE Collection Time: 06/04/17 1:26 PM Result Value Ref Range Glucose, POC 190 (H) 70 - 100 MG/DL URIC ACID Collection Time: 06/04/17 4:45 PM Result Value Ref Range Uric Acid 6.4 2.0 - 7.0 MG/DL POC GLUCOSE Collection Time: 06/04/17 4:46 PM Result Value Ref Range Glucose, POC 164 (H) 70 - 100 MG/DL POC GLUCOSE Collection Time: 06/04/17 9:27 PM Result Value Ref Range Glucose, POC 180 (H) 70 - 100 MG/DL CBC AND DIFF Collection Time: 06/05/17 2:20 AM Result Value Ref Range White Blood Cells 4.9 4.5 - 11.0 K/UL RBC 3.19 (L) 4.0 - 5.0 M/UL Hemoglobin 9.4 (L) 12.0 - 15.0 GM/DL Hematocrit 29.0 (L) 36 - 45 % MCV 90.9 80 - 100 FL MCH 29.4 26 - 34 PG MCHC 32.4 32.0 - 36.0 G/DL RDW 23.0 (H) 11 - 15 % Platelet Count 204 150 - 400 K/UL MPV 7.7 7 - 11 FL Neutrophils 93 (H) 41 - 77 % Lymphocytes 2 (L) 24 - 44 % Monocytes 2 (L) 4 - 12 % Eosinophils 0 0 - 5 % Basophils 3 (H) 0 - 2 % Absolute Neutrophil Count 4.60 1.8 - 7.0 K/UL Absolute Lymph Count 0.10 (L) 1.0 - 4.8 K/UL Absolute Monocyte Count 0.10 0 - 0.80 K/UL Absolute Eosinophil Count 0.00 0 - 0.45 K/UL Absolute Basophil Count 0.10 0 - 0.20 K/UL BASIC METABOLIC PANEL Collection Time: 06/05/17 2:20 AM Result Value Ref Range Sodium 142 137 - 147 MMOL/L Potassium 4.7 3.5 - 5.1 MMOL/L Chloride 112 (H) 98 - 110 MMOL/L CO2 27 21 - 30 MMOL/L Anion Gap 3 3 - 12 Glucose 198 (H) 70 - 100 MG/DL Blood Urea Nitrogen 21 7 - 25 MG/DL Creatinine 0.84 0.4 - 1.00 MG/DL Calcium 8.6 8.5 - 10.6 MG/DL eGFR Non >60 >60 mL/min eGFR >60 >60 mL/min MAGNESIUM Collection Time: 06/05/17 2:20 AM Result Value Ref Range Magnesium 2.0 1.6 - 2.6 mg/dL POC GLUCOSE Collection Time: 06/05/17 9:34 AM Result Value Ref Range Glucose, POC 161 (H) 70 - 100 MG/DL Point of Care Testing: (Last 24 hours): Glucose: (!) 198 (06/05/17 0220) POC Glucose (Download): (!) 161 (06/05/17 4311) Radiology Review: No pertinent radiology. Staff name: Douglas Gordon MD Date: 2017 * Tabitha Alvarado RN - 2017 5:37 AM JACKERMAN Shift: 7p-7a NEWS Score: 0, 0, 0 Pain: Pt with no complaints of pain this shift. Nutrition: Pt is on a regular diet. Adequate appetite. GI/: Pt's last bowel movement was 06/03. Pt with adequate urine output. No complaints of nausea this shift. Activity: Pt is up with standby assist. Steady gait. No complaints of dizziness. Family: No family present this shift. Last Shower: 06/04 New Events or Follow-up: -no acute events overnight -no replacements needed this AM -cytarabine @ 1700 * Tabitha Alvarado RN - 2017 4:59 AM [facility] CHEMO NOTE Verified chemo consent signed and in chart. Verified initiate chemo order in O2 Blood return positive via: Right triple lumen chest PICC, positive blood return in red lumen Premedications/Prehydration given as ordered. N/A BSA and dose double checked (agree with orders as written) with: Summer Mckeon, Chemo certified RN Arm band verified at bedside with second RN (same RN as above unless otherwise noted). yes Labs/applicable tests checked: Signature log Chemo drug/dose/route: cytarabine (CYTOSAR) 3,810 mg in sodium chloride 0.9% (NS ) 288.1 mL IVPB(C100) Rate verified with second RN (same RN as above unless otherwise noted). yes Patient education offered and stated understanding: No questions at this time * Bryanna Good, RN - 06/04/2017 6:10 PM JACKERMAN Shift: NEWS Score:0, 1, 0 Pain: Denies any discomfort this shift. Nutrition: Poor appetite but pt eating at each meal with a protein shake supplementing lunch. GI/: LBM 11;/16; Denies nausea; Adequate UOP. Activity: Up with stand by assist. Good strength but only ambulated in room with walker. Discussed ambulating tomorrow. Family: None present today. Last Shower: 06/04- line care done and central line dressing changed as well New Events or Follow-up: - May need lasix tomorrow - Next dose of Cytarabine at 0500 06/05 * Bryanna Good, RN - 06/04/2017 5:04 PM J[facility]ERMAN CHEMO NOTE Verified chemo consent signed and in chart. Verified initiate chemo order in O2 Blood return positive via: R triple chest PICC red lumen Premedications/Prehydration given as ordered. BSA and dose double checked (agree with orders as written) with: Micaela Austin RN Arm band verified at bedside with second RN (same RN as above unless otherwise noted). Labs/applicable tests checked: WNL Chemo drug/dose/route: cytarabine (CYTOSAR) 3,810 mg in sodium chloride 0.9% (NS ) 288.1 mL IVPB(C100) : Dose 1.5 g/m2 2.54 m2 (Treatment Plan Recorded) : Admin Dose 3,810 mg : 96 mL/hr : Intravenous : EVERY 12 HOURS Rate verified with second RN (same RN as above unless otherwise noted). Patient education offered and stated understanding * Arnold Sparks, PT - 06/04/2017 2:25 PM J[facility]ERMAN PHYSICAL THERAPY NOTE PT met with patient this afternoon. Patient states she is doing pretty well and has already been up and to the shower today. Patient endorses no primary mobility concerns and states she had a fall at home but only due to her shoe catching the top step entering her home. Patient was not injured and states it did not occur due to any weakness. Patient is planning to discharge on Wednesday. PT encourages patient to remain active the next few days, ambulating with nursing staff. PT will follow up with patient on Wednesday only if patient is still on the unit. Therapist: Arnold Sparks DPT Date: 06/04/2017 * Veena Beck, OT - 06/04/2017 1:58 PM JACKERMAN Formatting of this note may be different from the original. 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 Admitted for chemo. Precautions: Falls;Isolation (droplet) Pain / Complaints: Patient agrees to participate in therapy Comments: Pt c/o of discomfort and pain w/ R hand 1st and 5th digit after recent fall. Pt reports it is improving. Pt reports fall last month (April) when transferring into house on stairs; pt reports foot did not clear step causing her to fall. Pt reports no other falls since recent discharge. Objective Psychosocial Status: Willing and Cooperative to Participate Persons Present: (assistant professor of psychology, at end) Home Living Type of Home: House Home Layout: One Level;Stairs to Enter w/ Rails Bathroom Shower / Tub: Walk-in Shower Bathroom Toilet: Standard Bathroom Equipment: Built-in Seat in Shower;Shower Chair;Commode;Grab Bars in Shower Bathroom Accessibility: Accessible via Walker Home Equipment: Walker;Commode;Grab Bars;Shower/Tub Bench Prior Function Level Of [place]: Needed assistance with ADLs;Needed assistance with homemaking (assist w/ LE dressing and shower transfer) Lives With: Spouse Receives Help From: Spouse;Home Health (PT, OT) Homemaking Tasks: Meal Prep;Laundry;Cleaning;Driving Homemaking Assist: Total Assist Vision Current Vision: Wears Glasses All of the Time ADL's Where Assessed: In Bathroom Grooming Assist: Stand By Assist Grooming Deficits: Teeth Care Bathing Assist: Minimal Assist Bathing Deficits: (drying) UE Dressing Assist: Stand By Assist UE Dressing Deficits: Thread RUE;Thread LUE;Pull Around Back LE Dressing Assist: Total Assist LE Dressing Deficits: Don/Doff R Sock;Don/Doff L Sock Functional Transfer Assist: Minimal Assist Functional Transfer Deficits: Shower Transfer Comment: Pt in shower upon OT arrival. Pt able to sit<>video machines mechanic shower using grab bars. Pt ambulated to bed w/ assistive device. Pt able to complete stand> supine w/ minimal assist due to bed settings (pt needed bed deflated prior to laying down). Pt able to adjust self in bed. Pt supine at OT departure with all needs within reach. Activity Tolerance Endurance: 2/5 Tolerates 10-20 Minutes Exercise w/Multiple Rests Sitting Balance: 4+/5 Moves/Returns Trunkal Midpoint 1-2 Inches in Multiple Planes Cognition Overall Cognitive Status: WFL to Adequately Complete Self Care Tasks Safely Attention: Awake/Alert UE AROM Overall BUE AROM WNL: Yes Coordination: Adequate to Complete ADLs;Mild Delay (mild delay on R hand upon observing ADLs) Grasp: Bilateral Grasp Functional for Activity Sensory Overall Sensory: Pt Perceives Pressure in Both UEs in Gross Exam Neuropathy noted in B UE/hands. UE Strength / Tone Overall Strength / Tone: WFL Able to Perform ADL Tasks Education Persons Educated: Patient Teaching Methods: Verbal Instruction Patient Response: Verbalized and Demo Understanding Topics: Role of OT, Goals for Therapy Goal Formulation: With Patient Assessment Assessment: Decreased Endurance;Decreased Self-Care Trans Goal Formulation: Patient AM-PAC 6 Clicks Daily Activity Inpatient Putting on and taking off regular lower body clothes?: A Lot Bathing (Including washing, rinsing, drying): A Little Toileting, which includes using toilet, bedpan, or urinal: A Little Putting on and taking off regular upper body clothing: None Taking care of personal grooming such as brushing teeth: None Eating meals?: None Daily Activity Raw Score: 20 Standardized (t-scale) score: 42.03 CMS 0-100% Score: 38.32 CMS G Code Modifier: CJ Plan Treatment Interventions: Functional Transfer Training;Endurance Training OT Frequency: 1-2X/week Plan for next visit: toilet transfer ADL Goals Patient Will Perform Grooming: Standing at Sink, w/ Stand By Assist Patient Will Perform Toileting: w/ Stand By Assist Functional Transfer Goals Pt Will Transfer To Toilet: w/ Stand By Assist OT Discharge Recommendations OT Discharge Recommendations: Home with family assist, Home with Home Health Equipment Recommendations: Patient owns necessary equipment Additional information: Patient reports she feels she is close to baseline w/ ADLs and functional transfers. OT to follow up Wednesday to assess functional transfers and further assess R hand ROM if still admitted. G-Codes: Self-care G8987 Current Status: 20-39% Impairment G8988 Goal Status: 20-39% Impairment Based on above evaluation and clinical judgment. Therapist: MARLENE Butler/Clayton [id number] Date: 06/04/2017 * Serina Bush MD - 06/04/2017 8:34 AM [facility] Formatting of this note may be different from the original. Bone Marrow Transplant Progress Note Today's Date: 06/04/2017 Name: Giselle Khan Admission Date: 06/03/2017 LOS: LOS: 1 day Assessment/Plan: Active Problems: AML (acute myelogenous leukemia) (HCC) Chronic atrial fibrillation (HCC) Admission for antineoplastic chemotherapy Anemia associated with chemotherapy Type 2 diabetes mellitus with hyperglycemia (HCC) Primary Diagnosis: AML, FLT3 positive. In CR1 but MRD positive at 1.25% atypical cells by flow. Admitted for consolidation cycle of IDAC plus midostaurin - pt has yet received midostaurin but it is approved. Day 2 IDAC cycle #1 (plan for 6 doses, dosed q12h) Heme: Anemia from prior chemotherapy, expect pancytopenia due to chemotherapy. Monitor cbc. No transfusions today - continue apixaban for AC for Atrial Fibrillation until platelets <25K FEN/Renal: Monitor renal function, daily weights, I/O. Prn lasix to maintain euvolemia - replace electrolytes per HIGH goal due to AFib ID: Afebrile, no active infections. To start anti-infective prophylaxis at discharge. GI: Prophy and prn anti-emetics per chemo protocol. Monitor for GI toxicities of treatment. CV: Atrial fibrillation, rate controlled. On anticoagulation until platelets < 25K. - cont HAND PROFILER atenolol, diltiazem, Neuro: Risk of neurotoxicity with cytarabine, monitor for any changes. Obesity: Morbidly obese, limited mobility, higher risk of atelectasis. Encourage OOB/IS Endo: DM. FSBS and MDCF. Gluc 237 on am labs. Consult Endocrine for co- management Pulm: MORENA, uses cpap. Encourage IS. Psych: Supportive family. Will stay at [facility] at discharge Subjective: Giselle Khan is a 56 y.o. female. Pt had an episode overnight of feeling hot, not sweaty, no other symptoms. Removed her hat and covers and had resolved within a couple of minutes. Had no fever. Review of Systems: Constitutional: negative for fevers and chills +episode of feeling "hot" as above Eyes: no vision changes Ears, nose, mouth, throat, and face: no nosebleeds, gums bleeding, nasal congestion, sore throat Respiratory: negative for cough, increased work of breathing or wheezing Cardiovascular: negative for chest pain, palpitations, lower extremity edema Gastrointestinal: Denies nausea MSK: no back or bone pain Genitourinary: no hematuria, dysuria or increase in urinary frequency Integument/breast: negative for rash and skin lesions Hematologic/lymphatic: negative for bleeding Neurological: 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 Generalized weakness and limited mobility Objective: Medications: Scheduled Meds: acyclovir (ZOVIRAX) tablet 800 mg 800 mg Oral BID ALPRAZolam (XANAX) tablet 1 mg 1 mg Oral BID apixaban (ELIQUIS) tablet 5 mg 5 mg Oral BID atenolol (TENORMIN) tablet 25 mg 25 mg Oral QDAY [START ON 06/08/2017] cefuroxime (CEFTIN) tablet 500 mg 500 mg Oral BID [START ON 2017] cytarabine (CYTOSAR) 3,810 mg in sodium chloride 0.9% (NS ) 288.1 mL IVPB(C100) 1.5 g/m2 (Treatment Plan Recorded) Intravenous Q12H* cytarabine (CYTOSAR) 3,810 mg in sodium chloride 0.9% (NS) 288.1 mL IVPB(C100) 1.5 g/m2 (Treatment Plan Recorded) Intravenous Q12H* dexamethasone (DECADRON) tablet 12 mg 12 mg Oral Q24H* diltiazem CD (cardIZEM CD) capsule 240 mg 240 mg Oral QDAY [START ON 06/08/2017] fluconazole (DIFLUCAN) tablet 400 mg 400 mg Oral QDAY insulin aspart (NOVOLOG FLEXPEN) injection PEN 0-7 Units 0-7 Units Subcutaneous ACHS ondansetron (ZOFRAN) tablet 16 mg 16 mg Oral Q24H* prednisolone acetate (PRED FORTE) 1 % ophthalmic suspension 2 drop 2 drop Both Eyes Q6H* Continuous Infusions: sodium chloride 0.9 % infusion 150 mL/hr at 06/04/17 0136 PRN and Respiratory Meds:alteplase PRN (Hydroelectric Plant Electrical Engineer from Rx), alum/mag hydroxide/ simeth Q6H PRN, magnesium sulfate 4 g/50 mL PRN, magnesium sulfate 4 g/50 mL PRN , melatonin QHS PRN, oxyCODONE Q4H PRN, potassium chloride PRN (Hydroelectric Plant Electrical Engineer from Rx ) OR potassium chloride SR PRN (Hydroelectric Plant Electrical Engineer from Rx), prochlorperazine Q6H PRN * *OR prochlorperazine Q6H PRN, senna/docusate QDAY PRN, sodium chloride 0.9% irrigation bottle PRN Vital Signs: Last Filed Vital Signs: 24 Hour Range BP: 123/71 (06/04 207) Temp: 36.3 C (97.3 F) (06/04 207) Pulse: 82 (06/04 207) Respirations: 20 PER MINUTE (06/04 207) SpO2: 94 % (06/04 207) O2 Delivery: None (Room Air) (06/04 207) BP: (119-134)/(61-89) Temp: [36.3 C (97.3 F)-36.6 C (97.9 F)] Pulse: [59-82] Respirations: [18 PER MINUTE-20 PER MINUTE] SpO2: [94 %-99 %] O2 Delivery: None (Room Air) Intensity Pain Scale 0-10 (Pain 1): (not recorded) Vitals: 06/03/17 1300 06/04/17 0207 06/04/17 0434 Weight: (!) 141.9 kg (312 lb 13.3 oz) (!) 151.6 kg (334 lb 3.5 oz) 127.9 kg ( 281 lb 15.5 oz) Intake/Output Summary: (Last 24 hours) Intake/Output Summary (Last 24 hours) at 06/04/17 0835 Last data filed at 06/04/17 0636 Gross per 24 hour Intake 3108.3 ml Output 550 ml Net 2558.3 ml Physical Exam: Performance Status (Karnofsky): 70% Cares for self; unable to do normal activity, or active work VS reviewed General: Alert, cooperative, no distress, appears stated age + obese Head: Normocephalic, without obvious abnormality, atraumatic Eyes: Anicteric sclera OP: Moist mucosa, no lesions Lungs: CTAB without wheezes or rales Heart: Regular rate and rhythm Abdomen: Soft, non-tender. Bowel sounds normal. No masses. No organomegaly. Extremities: Trace LE edema Skin: No rashes or lesions Neurologic: Grossly intact, generalized weakness Ventilator/Respiratory Support: No Lab Review: 24-hour labs: Results for orders placed or performed during the hospital encounter of (from the past 24 hour(s)) CBC AND DIFF Collection Time: 06/03/17 12:58 PM Result Value Ref Range White Blood Cells 7.3 4.5 - 11.0 K/UL RBC 3.19 (L) 4.0 - 5.0 M/UL Hemoglobin 9.5 (L) 12.0 - 15.0 GM/DL Hematocrit 29.0 (L) 36 - 45 % MCV 91.0 80 - 100 FL MCH 29.6 26 - 34 PG MCHC 32.6 32.0 - 36.0 G/DL RDW 21.5 (H) 11 - 15 % Platelet Count 226 150 - 400 K/UL MPV 8.0 7 - 11 FL Neutrophils 67 41 - 77 % Lymphocytes 15 (L) 24 - 44 % Monocytes 17 (H) 4 - 12 % Eosinophils 1 0 - 5 % Basophils 0 0 - 2 % Absolute Neutrophil Count 4.90 1.8 - 7.0 K/UL Absolute Lymph Count 1.10 1.0 - 4.8 K/UL Absolute Monocyte Count 1.20 (H) 0 - 0.80 K/UL Absolute Eosinophil Count 0.10 0 - 0.45 K/UL Absolute Basophil Count 0.00 0 - 0.20 K/UL PROTIME INR (PT) Collection Time: 06/03/17 12:58 PM Result Value Ref Range INR 1.4 (H) 0.8 - 1.2 PTT (APTT) Collection Time: 06/03/17 12:58 PM Result Value Ref Range APTT 33.3 21.0 - 39.0 SEC COMPREHENSIVE METABOLIC PANEL Collection Time: 06/03/17 12:58 PM Result Value Ref Range Sodium 143 137 - 147 MMOL/L Potassium 4.3 3.5 - 5.1 MMOL/L Chloride 111 (H) 98 - 110 MMOL/L Glucose 123 (H) 70 - 100 MG/DL Blood Urea Nitrogen 18 7 - 25 MG/DL Creatinine 0.83 0.4 - 1.00 MG/DL Calcium 8.7 8.5 - 10.6 MG/DL Total Protein 6.1 6.0 - 8.0 G/DL Total Bilirubin 0.5 0.3 - 1.2 MG/DL Albumin 2.7 (L) 3.5 - 5.0 G/DL Alk Phosphatase 86 25 - 110 U/L AST (SGOT) 20 7 - 40 U/L CO2 27 21 - 30 MMOL/L ALT (SGPT) 10 7 - 56 U/L Anion Gap 5 3 - 12 eGFR Non >60 >60 mL/min eGFR >60 >60 mL/min MAGNESIUM Collection Time: 06/03/17 12:58 PM Result Value Ref Range Magnesium 1.7 1.6 - 2.6 mg/dL PHOSPHORUS Collection Time: 06/03/17 12:58 PM Result Value Ref Range Phosphorus 3.5 2.0 - 4.0 MG/DL LDH-LACTATE DEHYDROGENASE Collection Time: 06/03/17 12:58 PM Result Value Ref Range Lactate Dehydrogenase 248 (H) 100 - 210 U/L POC GLUCOSE Collection Time: 06/03/17 2:33 PM Result Value Ref Range Glucose, POC 76 70 - 100 MG/DL POC GLUCOSE Collection Time: 06/03/17 5:06 PM Result Value Ref Range Glucose, POC 85 70 - 100 MG/DL POC GLUCOSE Collection Time: 06/03/17 9:09 PM Result Value Ref Range Glucose, POC 217 (H) 70 - 100 MG/DL CBC AND DIFF Collection Time: 06/04/17 2:10 AM Result Value Ref Range White Blood Cells 7.1 4.5 - 11.0 K/UL RBC 3.33 (L) 4.0 - 5.0 M/UL Hemoglobin 10.0 (L) 12.0 - 15.0 GM/DL Hematocrit 30.2 (L) 36 - 45 % MCV 90.7 80 - 100 FL MCH 30.1 26 - 34 PG MCHC 33.2 32.0 - 36.0 G/DL RDW 22.4 (H) 11 - 15 % Platelet Count 221 150 - 400 K/UL MPV 7.9 7 - 11 FL Neutrophils 93 (H) 41 - 77 % Lymphocytes 6 (L) 24 - 44 % Monocytes 1 (L) 4 - 12 % Eosinophils 0 0 - 5 % Basophils 0 0 - 2 % Absolute Neutrophil Count 6.60 1.8 - 7.0 K/UL Absolute Lymph Count 0.40 (L) 1.0 - 4.8 K/UL Absolute Monocyte Count 0.00 0 - 0.80 K/UL Absolute Eosinophil Count 0.00 0 - 0.45 K/UL Absolute Basophil Count 0.00 0 - 0.20 K/UL COMPREHENSIVE METABOLIC PANEL Collection Time: 06/04/17 2:10 AM Result Value Ref Range Sodium 141 137 - 147 MMOL/L Potassium 4.8 3.5 - 5.1 MMOL/L Chloride 112 (H) 98 - 110 MMOL/L Glucose 237 (H) 70 - 100 MG/DL Blood Urea Nitrogen 19 7 - 25 MG/DL Creatinine 0.87 0.4 - 1.00 MG/DL Calcium 8.9 8.5 - 10.6 MG/DL Total Protein 6.5 6.0 - 8.0 G/DL Total Bilirubin 0.5 0.3 - 1.2 MG/DL Albumin 2.9 (L) 3.5 - 5.0 G/DL Alk Phosphatase 92 25 - 110 U/L AST (SGOT) 18 7 - 40 U/L CO2 26 21 - 30 MMOL/L ALT (SGPT) 10 7 - 56 U/L Anion Gap 3 3 - 12 eGFR Non >60 >60 mL/min eGFR >60 >60 mL/min MAGNESIUM Collection Time: 06/04/17 2:10 AM Result Value Ref Range Magnesium 2.2 1.6 - 2.6 mg/dL PHOSPHORUS Collection Time: 06/04/17 2:10 AM Result Value Ref Range Phosphorus 4.4 (H) 2.0 - 4.0 MG/DL Point of Care Testing: (Last 24 hours): Glucose: (!) 237 (06/04/17 0210) POC Glucose (Download): (!) 217 (06/03/171) Radiology Review: No pertinent radiology. Staff name: Serina Bush MD Date: 06/04/2017 * Tabitha Alvarado RN - 06/04/2017 5:36 AM [facility] Shift: 7p-7a NEWS Score: 0, 0, 1 Pain: Pt with complaints of knee pain. No desire for pain medications at this time. Nutrition: Pt is on a regular diet. Adequate appetite. GI/: Pt's last bowel movement was 06/03. Adequate urine output. No complaints of nausea. Activity: Pt is up with standby assist. Family: No family present this shift. Last Shower: Prior to admission. Line care completed 06/03. New Events or Follow-up: -no acute events overnight -no replacements needed this AM -with AM labs, weight from bed scale was > 5%; standing scale weight obtained * Tabitha Alvarado RN - 06/04/2017 5:19 AM [facility] CHEMO NOTE Verified chemo consent signed and in chart. yes Verified initiate chemo order in O2. yes Blood return positive via: R triple lumen chest picc; león lumen Premedications/Prehydration given as ordered. BSA and dose double checked (agree with orders as written) with: Honorio Cooper chemo certified RN Arm band verified at bedside with second RN (same RN as above unless otherwise noted). Labs/applicable tests checked: WNL; signature log signed. Chemo drug/dose/route: cytarabine (CYTOSAR) 3,810 mg in sodium chloride 0.9% (NS ) 288.1 mL IVPB(C100) : Dose 1.5 g/m2 2.54 m2 (Treatment Plan Recorded) : Admin Dose 3,810 mg : 96 mL/hr : Intravenous : EVERY 12 HOURS Rate verified with second RN (same RN as above unless otherwise noted). Patient education offered and stated understanding. All questions answered. * Jerrica Juarez, RN - 06/03/2017 5:04 PM [facility] Formatting of this note may be different from the original. CHEMO NOTE Verified chemo consent signed and in chart. Verified initiate chemo order in O2 Blood return positive via: red lumen right triple lumen chest picc Premedications/Prehydration given as ordered. BSA and dose double checked (agree with orders as written) with: Senait Ríos chemo certified RN Arm band verified at bedside with second RN (same RN as above unless otherwise noted). Labs/applicable tests checked: yes Chemo drug/dose/route: cytarabine (CYTOSAR) 3,810 mg in sodium chloride 0.9% (NS) 288.1 mL IVPB(C100 Rate verified with second RN (same RN as above unless otherwise noted). Patient education offered and stated understanding * Milagro Norman, - 06/03/2017 2:26 PM [facility] Formatting of this note may be different from the original. RESPIRATORY THERAPY ADULT PROTOCOL EVALUATION RESPIRATORY PROTOCOL PLAN Medications Note: If indicated by protocol, medication orders will be placed by therapist. 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) * Surgical Hx: No surgery OR last surgery > 6 weeks ago OR trach/stoma (BA) * Chest X-Ray: Clear OR not available * PFT/Oxygenation: FEV1, PEFR > 80% predicted OR physically unable to perform OR Pa02 >80 RA OR Sp02 >95% RA Patient Assessment * Respiratory Pattern: Regular pattern and rate OR good chest excursion with deep breathing * Breath Sounds: Clear and able to auscultate bases posteriorly * Cough / Sputum: Strong, effective cough OR nonproductive * Mental Status: Alert, oriented, cooperative * Activity Level: Ambulatory with assistance Priority Index Total Points: 2 Points * Priority Index: 1 PRIORITY INDEX GUIDELINES* Priority Points 1 0-9 points 2 9-18 points 3 > 18 points + Pulm Dx or Home Rx *Higher points indicate higher acuity. Therapist: Milagro Norman, RT Date: 06/03/2017 [place] AC=Airway clearance AM=Aerosolized medication BA=[place] aerosol DB&C=Deep breathe & cough FEV1=Forced expiratory volume in first second) IC=Inspiratory capacity LE=Lung expansion MDI=Metered dose inhaler Neb=Nebulizer O2=Oxygen Oxim=Oximetry PEFR=Peak expiratory flow rate SUPERVISOR LIME=Rapid Response Team * Jane Rm, PHARMD - 06/03/2017 2:17 PM [facility] Chemotherapy Education Provided patient with written and verbal education regarding intermediate-dose cytarabine chemotherapy. Reviewed chemotherapy schedule. Patient will receive chemotherapy as follows: ? cytarabine IV over three hours BID on days 1-3 (six total doses) and Midostaurin orally on Days 8-21. Discussed adverse effects of chemotherapy, including (but not limited to): myelosuppression, infection, mouth sores, hair loss, nausea/vomiting, bowel changes, conjunctivitis, skin changes, neurotoxicity. Discussed potential for myelosuppression & infection. Discussed that we try to prevent infections by use of prophylactic anti-infectives, including Ceftin, fluconazole, and acyclovir. These medications will start on day +5. Patient expressed understanding of this information. Cautioned patient against using acetaminophen/ibuprofen while receiving chemotherapy, as these products may mask a fever. Verified that patient does have a thermometer at home in order to check temperature frequently and understands the process with which to call the clinic in the event of a fever. Reinforced to the patient that a fever of >= 100.5 degrees F is considered a medical emergency and patient is to call the triage line if patient experiences a fever. Explained to the patient that a fever is considered a medical emergency. Discussed that if a fever occurs, the providers will likely initiate IV antibiotics and may/may not continue the current oral antibiotics. Explained to patient that if a fever occurs during the middle of the night, patient will need to go to the local ED. Discussed that during the time the blood counts are low, patient is to practice thorough hand washing, stay away from sick contacts, and wear a mask in public settings. Discussed potential for nausea/vomiting and decreased appetite. Explained that patient will receive anti-emetics prior to each dose of chemotherapy and will be provided with a prescription for lorazepam to be taken as needed. Advised patient to let us know if these antiemetics are not working properly so that things can be adjusted if needed. Encouraged patient to keep up adequate water/ nutrition intake. Discussed potential for bowel changes. Instructed the patient to contact a provider in the event of experiencing diarrhea. A stool sample may need to be provided to rule out infection. If infection is ruled out, providers may allow for antidiarrheals to be utilized for symptomatic relief. In the event of constipation, providers may allow for the use of OTC stool softeners/stimulants/ laxatives. Discussed the potential for cytarbine-induced neurotoxicity. Advised patient that this may present as dizziness, headache, excessive sleepiness, confusion, loss of balance, or seizures. Encouraged caregiver(s) to monitor patient closely and to call in the event of sudden onset of confusion or other mental status changes that may be an indication of the neurotoxicity. Discussed potential for cytarbine-induced skin changes, especially on the palms of hands or soles of feet. Patient advised to report a new or worsening rash. When administered at high doses, cytarabine has the potential to cause conjunctivitis. Explained the role of the steroid eye drops and the importance of the drops scheduled administration. Patient advised to report any irritation or vision changes. Reviewed potential need for platelet and blood transfusions as counts will be low during chemotherapy and during recovery period. Cautioned patient to be careful when brushing one's teeth to avoid gum bleeding and advised that there is a higher risk for bruising and bleeding. Patient voiced understanding about the provided information. All questions/ concerns addressed at this time. Medication handout(s) provided. * Senait Carpenter RN - 06/03/2017 1:51 PM [facility] I agree with the assessment/documentation by Giovanna Kelly RN unless otherwise indicated. * Giovanna Diane - 06/03/2017 12:31 PM [facility] Shift: 0700am-0700pm NEWS Score: New Admit this afternoon. 0-0 Pain: Patient reports numbness/tinging in hands and arms bilaterally due to neuropathy. Denies pain elsewhere. Nutrition: Adequate nutrition. Patient reported eating breakfast burrito prior to coming in today 06/03/17. Small cranberry juice 1500 for blood sugar of 76. GI/: No nausea/vomitting. Adequate urine output throughout shift. Last BM this AM 06/03/17 HAND PROFILER. Activity: Patient stand by assist. Up to bathroom w/ walker and steady. Family: by bedside this afternoon and supportive. Last Shower: 06/03/17. Patient stated she showered this morning at home. New Events or Follow-up: Magnesium sulfate started this afternoon results: 1.7, Cytarabine today @ 1700 next dose 0500am. in this encounter H&P Notes * Serina Bush MD - 06/03/2017 1:37 PM [facility] Formatting of this note may be different from the original. Bone Marrow Transplant Admission History and Physical Examination Giselle Khan Admission Date: 06/03/2017 Assessment/Plan: Active Problems: AML (acute myelogenous leukemia) (HCC) Admission for antineoplastic chemotherapy Primary Diagnosis: AML, FLT3 positive. In CR1 but MRD positive at 1.25% atypical cells by flow. Admitted for consolidation cycle of IDAC plus midostaurin - pt has yet received midostaurin but it is approved. Day 1 IDAC (plan for 6 doses, dosed q12h) Heme: Anemia from prior chemotherapy, expect pancytopenia due to chemotherapy. Monitor cbc. - continue apixaban for AC for Atrial Fibrillation FEN/Renal: Monitor renal function, daily weights, I/O. Prn lasix to maintain euvolemia - replace electrolytes per HIGH goal due to AFib ID: Afebrile, no active infections. To start anti-infective prophylaxis at discharge. GI: Prophy and prn anti-emetics per chemo protocol. Monitor for GI toxicities of treatment. CV: Atrial fibrillation, rate controlled. On anticoagulation until platelets < 25K. - cont HAND PROFILER atenolol, diltiazem, Neuro: Risk of neurotoxicity with cytarabine, monitor for any changes. Obesity: Morbidly obese, limited mobility, higher risk of atelectasis. Encourage OOB/IS Endo: DM. FSBS and MDCF. Consult Endo if hard to control bs. Pulm: MORENA, uses cpap. Encourage IS. Psych: Supportive family. Will stay at [facility] at discharge Primary Care Physician: Jacquelin Atkinson Verified Chief Complaint: Admitted for consolidation chemotherapy History of Present Illness: Giselle Khan is a 56 y.o. 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 Normal cytogenetics. In CR1 with MRD+ at recovery bone marrow. Pt has no complaints, continues to work on her strength and mobility. Is able to walk some around her house, also using wheelchair. Denies fevers, recent infection, bleeding/bruising. 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 Past Surgical History: Procedure Laterality Date FOOT FRACTURE SURGERY Right 2008 right HX JOINT REPLACEMENT Right 2009 right knee HX SECTION Family history reviewed; non-contributory Social History Social History Marital status: Spouse name: N/A Number of children: N/A Years of education: N/A Social History Main Topics Smoking status: Never Smoker Smokeless tobacco: Never Used Alcohol use No Drug use: No Sexual activity: Not on file Other Topics Concern Not on file Social History Narrative Immunizations (includes history and patient reported): There is no immunization history on file for this patient. Allergies: Ciprofloxacin; Levofloxacin; Nsaids (non-steroidal anti- inflammatory drug); Bactrim [sulfamethoxazole-trimethoprim]; and Contrast dye iv , iodine containing [iodinated contrast- oral and iv dye] Medications: Prescriptions Prior to Admission Medication Sig allopurinol (ZYLOPRIM) 300 mg tablet Take 300 mg by mouth daily. Take with food. ALPRAZolam (XANAX) 1 mg tablet Take 1 mg by mouth twice daily. apixaban (ELIQUIS) 5 mg tablet ON HOLD UNTIL COUNT RECOVERY (Patient taking differently: Take 5 mg by mouth twice daily.) atenolol (TENORMIN) 50 mg tablet Take 0.5 tablets by mouth daily. blood sugar diagnostic (WilocityTOUCH ULTRA TEST) test strip Use 1 strip as directed before meals and at bedtime. blood sugar diagnostic (WilocityTOUCH VERIO) test strip Use 1 strip as directed before meals and at bedtime. cholecalciferol (VITAMIN D-3) 1,000 units tablet Take 2,000 Units by mouth daily. diltiazem CD (CARDIZEM CD) 240 mg capsule Take 240 mg by mouth daily. FUROSEMIDE (LASIX PO) Take by mouth every 48 hours. glimepiride (AMARYL) 4 mg tablet Take 4 mg by mouth daily with breakfast. lancets (ONE TOUCH DELICA) MISC Use 1 each as directed four times daily as needed. Diag: Magnesium 200 mg tab Take 2 tablets by mouth twice daily. midostaurin (RYDAPT) 25 mg capsule Take 2 capsules (50mg) by mouth twice daily with meals on Days 8-21 of each chemotherapy cycle. Spreetales VERIO IQ METER kit Use as directed [...] 10 mL to area(s) as directed daily. Review of Systems: Constitutional: negative for fevers and chills Eyes: no vision changes Ears, nose, mouth, throat, and face: no nosebleeds, gums bleeding, nasal congestion, sore throat Respiratory: negative for cough, increased work of breathing or wheezing Cardiovascular: negative for chest pain, palpitations, lower extremity edema Gastrointestinal: negative for abd pain, nausea, vomiting, diarrhea, constipation MSK: no back or bone pain Genitourinary: no hematuria, dysuria or increase in urinary frequency Integument/breast: negative for rash and skin lesions Hematologic/lymphatic: negative for bleeding Neurological: Baseline neuropathy due to DM Physical Exam: Vital Signs: Last Filed In 24 Hours Vital Signs: 24 Hour Range BP: 125/89 (06/03 1251) Temp: 36.6 C (97.9 F) (06/03 1251) Pulse: 59 (06/03 1251) Respirations: 20 PER MINUTE (06/03 1251) SpO2: 99 % (06/03 1251) O2 Delivery: None (Room Air) (06/03 1251) BP: (125)/(89) Temp: [36.6 C (97.9 F)] Pulse: [59] Respirations: [20 PER MINUTE] SpO2: [99 %] O2 Delivery: None (Room Air) Intensity Pain Scale 0-10 (Pain 1): (not recorded) Performance Status (Karnofsky): 70% Cares for self; unable to do normal activity, or active work VS reviewed General: Alert, cooperative, no distress, appears stated age. Obese Head: Normocephalic, without obvious abnormality, atraumatic Eyes: Conjunctivae/corneas clear. PERRL OP: No erythema or ulcers Lungs: Clear to auscultation bilaterally Heart: Regular rate and rhythm, S1, S2 normal Abdomen: Soft, non-tender. Bowel sounds normal. No masses. No organomegaly. Extremities: Extremities normal, no edema or asymmetry Skin: Skin color, texture, turgor normal. No rashes or lesions Neurologic: Grossly intact. Generalized weakness Lab/Radiology/Other Diagnostic Tests: 24-hour labs: Results for orders placed or performed during the hospital encounter of (from the past 24 hour(s)) CBC AND DIFF Collection Time: 06/03/17 12:58 PM Result Value Ref Range White Blood Cells 7.3 4.5 - 11.0 K/UL RBC 3.19 (L) 4.0 - 5.0 M/UL Hemoglobin 9.5 (L) 12.0 - 15.0 GM/DL Hematocrit 29.0 (L) 36 - 45 % MCV 91.0 80 - 100 FL MCH 29.6 26 - 34 PG MCHC 32.6 32.0 - 36.0 G/DL RDW 21.5 (H) 11 - 15 % Platelet Count 226 150 - 400 K/UL MPV 8.0 7 - 11 FL Neutrophils 67 41 - 77 % Lymphocytes 15 (L) 24 - 44 % Monocytes 17 (H) 4 - 12 % Eosinophils 1 0 - 5 % Basophils 0 0 - 2 % Absolute Neutrophil Count 4.90 1.8 - 7.0 K/UL Absolute Lymph Count 1.10 1.0 - 4.8 K/UL Absolute Monocyte Count 1.20 (H) 0 - 0.80 K/UL Absolute Eosinophil Count 0.10 0 - 0.45 K/UL Absolute Basophil Count 0.00 0 - 0.20 K/UL PROTIME INR (PT) Collection Time: 06/03/17 12:58 PM Result Value Ref Range INR 1.4 (H) 0.8 - 1.2 PTT (APTT) Collection Time: 06/03/17 12:58 PM Result Value Ref Range APTT 33.3 21.0 - 39.0 SEC COMPREHENSIVE METABOLIC PANEL Collection Time: 06/03/17 12:58 PM Result Value Ref Range Sodium 143 137 - 147 MMOL/L Potassium 4.3 3.5 - 5.1 MMOL/L Chloride 111 (H) 98 - 110 MMOL/L Glucose 123 (H) 70 - 100 MG/DL Blood Urea Nitrogen 18 7 - 25 MG/DL Creatinine 0.83 0.4 - 1.00 MG/DL Calcium 8.7 8.5 - 10.6 MG/DL Total Protein 6.1 6.0 - 8.0 G/DL Total Bilirubin 0.5 0.3 - 1.2 MG/DL Albumin 2.7 (L) 3.5 - 5.0 G/DL Alk Phosphatase 86 25 - 110 U/L AST (SGOT) 20 7 - 40 U/L CO2 27 21 - 30 MMOL/L ALT (SGPT) 10 7 - 56 U/L Anion Gap 5 3 - 12 eGFR Non >60 >60 mL/min eGFR >60 >60 mL/min MAGNESIUM Collection Time: 06/03/17 12:58 PM Result Value Ref Range Magnesium 1.7 1.6 - 2.6 mg/dL PHOSPHORUS Collection Time: 06/03/17 12:58 PM Result Value Ref Range Phosphorus 3.5 2.0 - 4.0 MG/DL LDH-LACTATE DEHYDROGENASE Collection Time: 06/03/17 12:58 PM Result Value Ref Range Lactate Dehydrogenase 248 (H) 100 - 210 U/L Point of Care Testing: (Last 24 hours): No pertinent radiology. Serina Bush MD in this encounter Consult Notes * Brenda Jacobo MD - 06/04/2017 12:02 PM JACKERMAN Associated Order(s): CONSULT ENDOCRINOLOGY PHYSICIAN Formatting of this note may be different from the original. Endocrinology Consult Admission Date: 06/03/2017 Active Problems: AML (acute myelogenous leukemia) (HCC) Chronic atrial fibrillation (HCC) Admission for antineoplastic chemotherapy Anemia associated with chemotherapy Type 2 diabetes mellitus with hyperglycemia (HCC) Reason for consult: DM management Type: Co-management w/signed orders Assessment: 1. Type 2 diabetes mellitus With hyperglycemia A1c 5.2, controlled HAND PROFILER regimen: Glimepiride 4 mg daily Hypoglycemic episodes on this regimen: Unknown Follows up with for diabetes management: PCP Diabetic-complications assessment: Retinopathy: Last eye exam 2 years back, no retinopathy Peripheral neuropathy: Yes Autonomic neuropathy: No Nephropathy: Yes Macrovascular complications: No Risk factor assessment: Last lipid profile -none in chart On ACEi/ARB?:No On Statin?: No 2. AML Admitted for chemotherapy 3. Hypertension Recommendations: Patient's glycemic control over the last 24 hours with just low dose correction factor was near goal however she did receive Dexamethasone yesterday and plan for today as well start lantus 12 units daily Start Novolog 4 units with meals Continue with [facility] We will review her blood sugar trend in the 24 hours and make further recommendations On discharge we do not anticipate any insulin and and will return to Amaryl 4 mg daily with breakfast. In the past we have discussed an option of metformin with her however she would like to discuss with her ore dryer before taking that in consideration Goal blood glucose 100-140 fasting and 140-180 during the day while inpatient. Current steroids: Dexamethasone 12mg daily till 06/06 Thank you for this consult; we will continue to follow Patient was seen and discussed with Dr. Jacobo ATTESTATION I personally performed the carrizales portions of the E/M visit, discussed case with Dr. Lutz and concur with her documentation of history, physical exam, assessment , and treatment plan unless otherwise noted. Staff name: Brenda Jacobo MD Date: 06/04/2017 __ History of Present Illness: Giselle Khan is a 56 y.o. female past medical history of A. fib, type 2 diabetes, CKD stage III, AML, anxiety who is admitted for Chemotherapy . Endocrinology was consulted for DM management. Patient says she was diagnosed with diabetes many years back. She was initially on metformin. However this was discontinued due to her woresning kidney function and she was started on glimepiride. Medications prior to admission was glimepiride 4 mg once daily. During her last hospitalization she was evaluated by endocrinology as well. During discharge on 05/19 she was sent home only on Amaryl however she was needing insulin in the hospital. She states after she got discharged from the hospital she did not have any episodes of hypoglycemia. However she was not checking her blood sugars but she did not have any symptoms of low blood sugar. She does have chronic kidney disease and diabetic neuropathy for which she does not take any medications. She was admitted last night and states she has been eating all her meals well. Blood sugar this morning was 174. 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 Social History Social History Marital status: Spouse name: N/A Number of children: N/A Years of education: N/A Social History Main Topics Smoking status: Never Smoker Smokeless tobacco: Never Used Alcohol use No Drug use: No Sexual activity: Not on file Other Topics Concern Not on file Social History Narrative Immunizations (includes history and patient reported): There is no immunization history on file for this patient. Allergies: Ciprofloxacin; Levofloxacin; Nsaids (non-steroidal anti- inflammatory drug); Bactrim [sulfamethoxazole-trimethoprim]; and Contrast dye iv , iodine containing [iodinated contrast- oral and iv dye] Medications: Prescriptions Prior to Admission Medication Sig allopurinol (ZYLOPRIM) 300 mg tablet Take 300 mg by mouth daily. Take with food. ALPRAZolam (XANAX) 1 mg tablet Take 1 mg by mouth twice daily. apixaban (ELIQUIS) 5 mg tablet ON HOLD UNTIL COUNT RECOVERY (Patient taking differently: Take 5 mg by mouth twice daily.) atenolol (TENORMIN) 50 mg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 antineoplastic chemotherapy Encounter for antineoplastic chemotherapy Anemia associated with chemotherapy Antineoplastic chemotherapy induced anemia Chronic atrial fibrillation (HCC) Atrial fibrillation Type 2 diabetes mellitus with hyperglycemia (HCC) Type II or unspecified type diabetes mellitus without mention of complication , not stated as uncontrolled in this encounter Admitting Diagnoses Diagnosis 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) in this encounter Administered Medications Medication Order MAR Action Action Date Dose Rate Site acyclovir (ZOVIRAX) tablet 800 mg Given 2017 800 mg 800 mg, Oral, TWICE DAILY, First dose on 08:54 JACKERMAN Alison 06/03/17 at 1300, Until Discontinued Given 2017 800 mg 20:27 JACKERMAN Given 06/06/2017 800 mg 10:41 JACKERMAN allopurinol (ZYLOPRIM) tablet 300 mg Given 06/04/2017 300 mg 300 mg, Oral, DAILY, First dose on Wed 13:23 JACKERMAN 06/04/17 at 1300, Until Discontinued Given 2017 300 mg 08:54 JACKERMAN Given 06/06/2017 300 mg 10:41 JACKERMAN ALPRAZolam (XANAX) tablet 1 mg Given 2017 1 mg 1 mg, Oral, TWICE DAILY, First dose on 08:54 JACKERMAN Alison 06/03/17 at 2100, Until Discontinued Given 2017 1 mg 20:27 JACKERMAN Given 06/06/2017 1 mg 10:42 JACKERMAN apixaban (ELIQUIS) tablet 5 mg Given 2017 5 mg 5 mg, Oral, TWICE DAILY, First dose on 08:54 JACKERMAN Alison 06/03/17 at 2100, Until Discontinued, NOTE: This is a HIGH ALERT Medication. Given 2017 5 mg 20:27 JACKERMAN Given 06/06/2017 5 mg 10:57 JACKERMAN atenolol (TENORMIN) tablet 25 mg Given 06/04/2017 25 mg 25 mg, Oral, DAILY, First dose on Wed 08:25 JACKERMAN 06/04/17 at 0900, Until Discontinued Given 2017 25 mg 08:54 JACKERMAN Given 06/06/2017 25 mg 10:42 JACKERMAN cytarabine (CYTOSAR) 3,810 mg in sodium Given - New 06/03/2017 3,810 mg 96 mL/hr chloride 0.9% (NS) 288.1 mL IVPB(C100) Bag 17:03 JACKERMAN 3,810 mg (1.5 g/m2 2.54 m2 Treatment plan recorded BSA), Intravenous, 288.1 mL, Administer over 3 Hours, EVERY 12 HOURS, 2 doses, First dose on Alison 06/03/17 at 1700, Last dose on Wed06/04/17 at 0500, NURSING: To be administered by Chemotherapy Competency-validated nurse. NOTE: This is a HIGH ALERT Medication. SPECIAL TUBING REQUIRED Given - New Bag 06/04/2017 3,810 mg 96 mL/hr 05:19 JACKERMAN cytarabine (CYTOSAR) 3,810 mg in sodium Given - New 06/04/2017 3,810 mg 96 mL/hr chloride 0.9% (NS) 288.1 mL IVPB(C100) Bag 17:01 JACKERMAN 3,810 mg (1.5 g/m2 2.54 m2 Treatment plan recorded BSA), Intravenous, 288.1 mL, Administer over 3 Hours, EVERY 12 HOURS, 2 doses, First dose on Wed06/04/17 at 1700, Last dose on 06/05/17 at 0500, NURSING: To be administered by Chemotherapy Competency-validated nurse. NOTE: This is a HIGH ALERT Medication. SPECIAL TUBING REQUIRED Given - New Bag 2017 3,810 mg 96 mL/hr 05:03 JACKERMAN cytarabine (CYTOSAR) 3,810 mg in sodium Given - New 2017 3,810 mg 96 mL/hr chloride 0.9% (NS) 288.1 mL IVPB(C100) Bag 17:23 JACKERMAN 3,810 mg (1.5 g/m2 2.54 m2 Treatment plan recorded BSA), Intravenous, 288.1 mL, Administer over 3 Hours, EVERY 12 HOURS, 2 doses, First dose on 06/05/17 at 1700, Last dose on Wed06/06/17 at 0500, NURSING: To be administered by Chemotherapy Competency-validated nurse. NOTE: This is a HIGH ALERT Medication. SPECIAL TUBING REQUIRED Given - New Bag 06/06/2017 3,810 mg 96 mL/hr 05:17 JACKERMAN dexamethasone (DECADRON) tablet 12 mg Given 06/03/2017 12 mg 12 mg, Oral, EVERY 24 HOURS, 3 doses, 16:17 JACKERMAN First dose on Alison 06/03/17 at 1630, Last dose on 06/05/17 at 1630, Give 30 minutes prior to 1st dose of daily Cytarabine. Given 06/04/2017 12 mg 16:48 JACKERMAN Given 2017 12 mg 16:59 JACKERMAN diltiazem CD (cardIZEM CD) capsule 240 Given 06/04/2017 240 mg mg 08:25 JACKERMAN 240 mg, Oral, DAILY, First dose on Alison 06/03/17 at 1300, Until Discontinued Given 2017 240 mg 08:54 JACKERMAN Given 06/06/2017 240 mg 10:41 JACKERMAN furosemide (LASIX) injection 60 mg Given 2017 60 mg 60 mg, Intravenous, ONCE, 1 dose, Sat 14:20 JACKERMAN 06/05/17 at 1215, PROTECT FROM LIGHT insulin aspart (NOVOLOG FLEXPEN) Given 2017 1 Units Arm, Right injection PEN 0-7 Units 09:34 JACKERMAN 0-7 Units, Subcutaneous, BEFORE MEALS AND AT BEDTIME, First dose on Alison 06/03/17 at 1300, Until Discontinued, -POC glucose 140-180mg/dL at administer 1 unit insulin, at 21, 03* administer 0 units. -POC glucose 181-220mg/dL at , administer 2 units insulin, at 21, 03* administer 1 unit. -POC glucose 221-260mg/dL at administer 3 units insulin, at 21, 03* administer 2 units. -POC glucose 261-300mg/dL at , administer 4 units insulin, at 21, 03* administer 3 units. -POC glucose 301-350mg/dL at administer 5 units insulin, at 21, 03* administer 4 units. -POC glucose 351-400mg/dL at administer 6 units insulin, at 21, 03* administer 5 units. -POC glucose >400mg/dL at , , administer 7 units insulin, at 21, 03* administer 6 units. *only if ordered 5x's daily For POCT glucose >350mg/dL give correction bolus and recheck POCT glucose in 2 hours. If POCT glucose at 2 hours >300mg/dL call physician for further orders. For patients who are not eating meals, continue to administer the appropriate correction factor. NOTE: This is a HIGH ALERT Medication. Given 2017 1 Units Abdomen:RLQ 14:18 JACKERMAN Given 2017 1 Units Abdomen:LUQ 21:41 JACKERMAN insulin aspart (NOVOLOG FLEXPEN) Given 06/06/2017 2 Units Arm, Right injection PEN 2 Units 10:43 JACKERMAN 2 Units, Subcutaneous, THREE TIMES DAILY WITH MEALS, First dose on Wed06/06/17 at 0830, Until Discontinued, Hold if NPO for procedure, unable to eat, or if FSBS < 70 mg/dL Give at start of meal. NOTE: This is a HIGH ALERT Medication. insulin aspart (NOVOLOG FLEXPEN) Given 06/04/2017 4 Units Abdominal injection PEN 4 Units 17:02 JACKERMAN Tissue 4 Units, Subcutaneous, THREE TIMES DAILY WITH MEALS, First dose on Wed06/04/17 at 1300, Until Discontinued, Hold if NPO for procedure, unable to eat, or if FSBS < 70 mg/dL Give at start of meal. NOTE: This is a HIGH ALERT Medication. Given 2017 4 Units Arm, Right 09:34 JACKERMAN Given 2017 4 Units Arm, Left 17:30 JACKERMAN insulin glargine (LANTUS SOLOSTAR) Given 06/04/2017 12 Units Arm, Right injection PEN 12 Units 14:41 JACKERMAN 12 Units, Subcutaneous, DAILY, First dose on Wed06/04/17 at 1300, Until Discontinued, Continue if NPO. DO NOT mix with other insulins -- Do not mix with other insulins -- NOTE: This is a HIGH ALERT Medication. Given 2017 12 Units Abdomen:RLQ 14:17 JACKERMAN magnesium oxide (MAG-OX) tablet 400 mg Given 2017 400 mg 400 mg, Oral, ONCE, 1 dose, 06/05/17 20:28 JACKERMAN at 2100, Delivers 241.3mg elemental magnesium per tab magnesium sulfate 4 g/50 mL IVPB Given - New 06/03/2017 4 g 4 g, Intravenous, 50 mL, Administer over Bag 15:10 JACKERMAN 4 Hours, NEEDED, Starting Alison 06/03/17 at 1249, Until 06/06/17 at 1454, Other..., See admin instructions, Do not replace magnesium if serum creatinine is > 2.0. If Serum Magnesium </=1.6 mg/dL, give magnesium sulfate 4 grams IV over 4 hours. Recheck level in AM. If magnesium level </=1.2 mg/dL replace per above and check magnesium level at 1600. If serum magnesium is still </=1.6 mg/dL give additional 4 grams of magnesium over 4 hours and recheck level with am labs. ondansetron (ZOFRAN) tablet 16 mg Given 06/03/2017 16 mg 16 mg, Oral, EVERY 24 HOURS, 3 doses, 16:17 JACKERMAN First dose on Alison 06/03/17 at 1630, Last dose on Wed06/05/17 at 1630 Given 06/04/2017 16 mg 16:48 JACKERMAN Given 2017 16 mg 16:59 JACKERMAN potassium chloride SR (K-DUR) tablet Given 2017 40 mEq 20-60 mEq 18:36 JACKERMAN 20-60 mEq, Oral, NEEDED (ZIPPER LINING FOLDER FROM RX), Starting Alison 06/03/17 at 1249, Until 06/06/17 at 1454, Other..., see admin instructions, HIGH GOAL -For serum potassium 3.5 - 4 mEq/L, give 40 mEq of PO potassium chloride if no GI distress or mucositis is present. -For serum potassium < 3.5 mEq/L, give 60 mEq of PO potassium chloride if no GI distress or mucositis is present. Repeat chemistry at 1600. If serum potassium is < 3.5 mEq/L, give additional 40 mEq of potassium chloride x 1, if no GI distress or mucositis is present and NOTIFY PHYSICIAN/YVETTE. prednisolone acetate (PRED FORTE) 1 % Given 2017 2 drops ophthalmic suspension 2 drop 22:31 JACKERMAN 2 drop, Both Eyes, EVERY 6 HOURS, 20 doses, First dose on Alison 06/03/17 at 1630, Last dose on Wed06/08/17 at 1030, Begin drops prior to first dose of Cytarabine. Given 06/06/2017 2 drops 05:21 JACKERMAN Given 06/06/2017 2 drops 10:45 JACKERMAN sodium chloride 0.9 % infusion Given - New 2017 150 mL/hr 1,000 mL, Intravenous, at 150 mL/hr, Bag 12:00 JACKERMAN CONTINUOUS, Starting Alison 06/03/17 at 1430, Until [place] 06/06/17 at 1454, Continue until 24 hours after completion of chemotherapy Given - New Bag 2017 150 mL/hr 20:27 JACKERMAN Given - New Bag 06/06/2017 150 mL/hr 05:21 JACKERMAN SODIUM CHLORIDE 0.9 % IV SOLP (Cabinet Given - New 06/04/2017 500 mL Override) Bag 05:19 JACKERMAN NOW, 1 dose, 06/04/17 at 0515, Created by cabinet override SODIUM CHLORIDE 0.9 % IV SOLP (Cabinet Given - New 2017 250 mL Override) Bag 05:02 JACKERMAN NOW, 1 dose, 06/05/17 at 0515, Created by cabinet override SODIUM CHLORIDE 0.9 % IV SOLP (Cabinet Given - New 06/06/2017 500 mL Override) Bag 05:16 JACKERMAN NOW, 1 dose, 06/06/17 at 0515, Created by cabinet override sodium chloride 0.9% irrigation bottle Given 06/04/2017 SEE ADMIN INSTRUCTIONS, NEEDED, 09:17 JACKERMAN Starting Alison 06/03/17 at 1249, Until 06/06/17 at 1454, Other..., oral mucositis, Oral swish and spit. in this encounter
--- OUTSIDE RECORDS SUMMARY | 2017-06-11 18:33 | XMS REPORT | Encounter Summary ---
Author Author [facility] Organization [facility] Address Unknown Phone Unavailable Care Team Providers Care Paralegal Secretary Name Role Phone PCP Unavailable Encounter Details Date Type Department Care Team Description 06/02/2017 Orders Only [facility] Maxwell Clarke MD [facility] - BMT Exam [address] [place] [address] [place] [address] [phone] Social History Tobacco Use Types Packs/Day Years [...]
--- OUTSIDE RECORDS SUMMARY | 2017-06-11 18:33 | XMS REPORT | Encounter Summary ---
Author Author [facility] Organization [facility] Address Unknown Phone Unavailable Care Team Providers Care Elastic Yarn Twister Helper Name Role Phone PCP Unavailable Encounter Details Date Type Department Care Team Description 06/01/2017 Documentation [facility] Sherie Diaz RN Cancer Center - BMT Exam [address] [place] [address] Social History Tobacco Use Types Packs/Day Years [...] as of this encounter Progress Notes * Sherie Diaz RN - 06/01/2017 1:31 PM RESTAURANT HOSPITALITY MANAGER contacted patient on her cell to confirm the appt in our clinic on Wednesday and plan for admission on . Patient will contact the nursing unit prior to leaving her house. in this encounter Plan of Treatment Not on fileas of this encounter Visit Diagnoses Not on filein this encounter
--- OUTSIDE RECORDS SUMMARY | 2017-06-11 18:34 | XMS REPORT | Encounter Summary ---
Author Author [facility] Organization [facility] Address Unknown Phone Unavailable Care Team Providers Care Coordinator Hotels Name Role Phone PCP Unavailable Encounter Details Date Type Department Care Team Description 05/24/2017 Documentation [facility] [address] [place] [address] Social History Tobacco Use Types Packs/Day Years [...] as of this encounter Progress Notes * [facility] - 05/24/2017 9:08 AM LOOM BLOWER Patient's application for [employer] was faxed over to the manufacture today for review of asst. in this encounter Plan of Treatment Not on fileas of this encounter Visit Diagnoses Not on filein this encounter
--- OUTSIDE RECORDS SUMMARY | 2017-06-11 18:34 | XMS REPORT | Encounter Summary ---
Author Author [facility] Organization [facility] Address Unknown Phone Unavailable Care Team Providers Care Port Crane Operator Name Role Phone PCP Unavailable Encounter Details Date Type Department Care Team Description 05/21/2017 Orders Only [facility] Sherie Diaz RN Acute myeloid leukemia Cancer Center - BMT Exam not having achieved [address] remission (HCC) (Primary [address] Dx) [place] [address] Social History Tobacco Use Types Packs/Day Years [...] as of this encounter Plan of Treatment Name Priority Associated Diagnoses Date/Time CHROMOSOMES BONE MARROW Routine Acute myeloid leukemia 05/28/2017 12:34 PM [employer]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 (HCC) Name Priority Associated Diagnoses Order Schedule BONE MARROW ASPIRATION PROCEDURE Routine Acute myeloid leukemia Expected : 05/28/2017, not having achieved Expires: 05/21/2018 remission (HCC) BIOPSY BONE MARROW PROCEDURE Routine Acute myeloid leukemia Expected: , not having achieved Expires: 05/21/2018 remission (HCC) CHROMOSOMES BONE MARROW Routine Acute myeloid leukemia Expected: 2016, not having achieved Expires: 05/21/2018 remission (HCC) as of this encounter Results * COMPREHENSIVE METABOLIC PANEL (05/28/2017 3:02 PM) Component Value Ref Range Sodium 139 137 - 147 MMOL/L Potassium 4.4 3.5 - 5.1 MMOL/L Chloride 107 98 - 110 MMOL/L Glucose 131 (H) 70 - 100 MG/DL Blood Urea Nitrogen 13 7 - 25 MG/DL Creatinine 0.85 0.4 - 1.00 MG/DL Calcium 8.3 (L) 8.5 - 10.6 MG/DL Total Protein 6.0 6.0 - 8.0 G/DL Total Bilirubin 0.5 0.3 - 1.2 MG/DL Albumin 2.7 (L) 3.5 - 5.0 G/DL Alk Phosphatase 128 (H) 25 - 110 U/L AST (SGOT) 16 7 - 40 U/L CO2 26 21 - 30 MMOL/L ALT (SGPT) 10 7 - 56 U/L Anion Gap 6 3 - 12 eGFR Non >60 >60 [...] Pharmacist for questions. Specimen Performing Laboratory Blood [facility] [address] [place] [address] * CBC AND DIFF (05/28/2017 3:02 PM) Component Value Ref Range White Blood Cells 7.1 4.5 - 11.0 K/UL RBC 3.18 (L) 4.0 - 5.0 M/UL Hemoglobin 9.5 (L) 12.0 - 15.0 GM/DL Hematocrit 29.0 (L) 36 - 45 % MCV 91.0 80 - 100 FL MCH 29.7 26 - 34 PG MCHC 32.7 32.0 - 36.0 G/DL RDW 18.2 (H) 11 - 15 % Platelet Count 348 150 - 400 K/UL MPV 7.6 7 - 11 FL Segmented Neutrophils 58 41 - 77 % Bands 3 0 - 10 % Lymphocytes 18 (L) 24 - 44 % Monocytes 14 (H) 4 - 12 % Eosinophil 1 0 - 5 % Metamyelocyte 4 % Myelocyte 2 % ANISO PRESENT HYPO PRESENT POIK PRESENT POLY PRESENT Ovalocyte PRESENT Schistocyte PRESENT Teardrop PRESENT Platelet Estimate NORMAL Absolute Neutrophil Count 4.33 1.8 - 7.0 K/UL Manual Specimen Performing Laboratory Blood [facility] [address] [place] [address] * LEUKEMIA/LYMPHOMA PNL, BONE MARROW (05/28/2017 12:34 PM) Component Value Ref Range Leuk/Lymph Interpretation SEE PATHOLOGY REPORT Specimen/LLM BONE MARROW Specimen Performing Laboratory Bone Marrow [facility] [address] [place] [address] * BONE MARROW ASP (05/28/2017 12:34 PM) Component Value Ref Range Bone Marrow Asp SEE PATHOLOGY REPORT Specimen Performing Laboratory Bone Marrow [facility] [address] [place] [address] in this encounter Visit Diagnoses Diagnosis Acute myeloid leukemia not having achieved remission (HCC) - Primary in this encounter
--- OUTSIDE RECORDS SUMMARY | 2017-06-11 18:34 | XMS REPORT | Encounter Summary ---
Author Author [facility] Organization [facility] Address Unknown Phone Unavailable Care Team Providers Care Journalism Intern Name Role Phone PCP Unavailable Reason for Visit * Radiology Services Status Reason Specialty Diagnoses / Referred By Referred To Procedures Contact Contact No Auth Needed Radiology Diagnoses Elías [facility] Ir Acute myeloid MD Juanpablo [address] leukemia not [address] [place], [place] having achieved [address] [address] remission (HCC) [address] Phone: [place], [place] [phone] GUIDE NEEDLE Phone: PLACEMENT [phone] IR BONE MARROW Fax: BIOPSY [phone] [place] BONE MARROW BIOPSY NEEDLE/TROCAR Encounter Details Date Type Department Care Team Description 05/28/2017 Hospital [facility] Juanpablo Eldridge MD Encounter [facility] [address] [place] [address] [place] [address] [phone] Joey eNal MD [address] [place] [address] [phone] R Edgard canela Rosalinda, [place] Social History Tobacco Use Types Packs/Day Years Used Date Never Smoker Smokeless Tobacco: Never Used Alcohol Use Drinks/Week oz/Week Comments No Sex Assigned at Date Recorded Not on file as of this encounter Last Filed Vital Signs Vital Sign Reading Time Taken Blood Pressure 115/63 05/28/2017 12:59 PM CARDIAC EXERCISE SPECIALIST Pulse 65 05/28/2017 12:45 PM CARDIAC EXERCISE SPECIALIST Temperature 36.4 C (97.5 F) 05/28/2017 12:59 PM CARDIAC EXERCISE SPECIALIST Respiratory Rate - - Oxygen Saturation 97% 05/28/2017 12:59 PM CARDIAC EXERCISE SPECIALIST Inhaled Oxygen - - Concentration Weight - - Height - - Body Mass Index - - in this encounter Functional Status Functional Status [...] No 05/19/2017 as of this encounter Discharge Instructions * Patient Instructions - Catie Mccoy RN - 05/28/2017 1:06 PM CARDIAC EXERCISE SPECIALIST Interventional Radiology-Discharge Instructions Bone Marrow Aspiration Bone marrow is the major site of blood cell formation. A bone marrow specimen may be obtained by aspiration or needle biopsy. Aspiration removes cells through a needle inserted into the marrow cavity of the bone. A biopsy removes a small, solid core of marrow tissue through the needle. Aspiration/Needle Biopsies helps with the diagnosis of leukemia, anemias, and other blood disorders. POST-PROCEDURE ACTIVITY: A responsible adult must drive you home. If you receive sedation or anesthesia, do not drive, operate heavy machinery or do anything that requires concentration for at least 24 hours. It is recommended that a responsible adult be with you until morning. Keep moving to decrease hip soreness. Avoid any strenuous activity for the next 2-3 days following the procedure. POST-PROCEDURE SITE CARE: Keep the area clean and dry for 24 hours Be sure your hands are clean when touching near the site. You will have a bandage over the site. Keep this dry. You may remove it in 24 hours. You may shower after the first 24 hours. You may replace the previous bandage with a Band-aide if desired. Discomfort at site may occur for 2-3 days following the procedure. You may apply ice to the area; 15-20 minutes. May repeat ice every 2 hours as needed. Do not submerge the site underwater for one week (no tub bath, swimming, hot tub, etc.) Do not use ointments, creams or powders on the puncture site. DIET/MEDICATIONS: You may resume your previous diet after the procedure. If you receive sedation or anesthesia, avoid any foods or beverages containing alcohol for at least 24 hours. Please see the Medication Reconciliation sheet for instructions regarding resuming your home medications. Drink plenty of fluids for the next 24-48 hours. WHEN TO CALL THE DOCTOR: Bright red blood soaks the bandage. You have new or worsened pain. Some soreness is to be expected. You have new or worsened signs of infection such as: -Redness or swelling -Fever greater than 101?F For any of the above problems or other concerns related to the procedure, call [phone] from 7am-5pm, Wednesday-Wednesday. After-hours and weekends, call [phone] and ask for the Interventional [employer] Lead on-call. For procedures performed at the [facility], please call the Radiology dept. Wednesday-Wednesday 8-5, . You or your caregiver should call [phone] for any severe bleeding, dizziness, shortness of breath or loss of consciousness. in this encounter Medications at Time of [...] as directed 300 strip 3 05/19/2017 (ONETOUCH ULTRA TEST) before meals and at test [...] 1 06/07/2017 06/07/2017 mg tablet twice daily. apixaban (ELIQUIS) 5 mg ON HOLD with platelets 60 tablet 06/06/2017 06/06/2017 tablet <50,000 apixaban (ELIQUIS) 5 mg ON HOLD UNTIL COUNT 05/19/2017 06/06/2017 tablet RECOVERY ergocalciferol (VITAMIN Take 1 capsule by mouth 06/03/2017 D-2) 50,000 unit capsule every 7 days. prednisolone acetate Apply 2 drops to both 2 mL 0 06/06/20172016 (PRED FORTE) 1 % eyes every 6 hours for 3 ophthalmic days. suspensionIndications: Acute myeloid leukemia in remission (HCC) sodium chloride PF 0.9% Inject 10 mL to area(s) 300 mL 3 05/19/2017 06/06/2017 0.9 % syringe as directed daily. as of this encounter Progress Notes * Catie Mccoy RN - 05/28/2017 12:21 PM CARDIAC EXERCISE SPECIALIST Procedure resumed in CT scanner * Catie Mccoy RN - 05/28/2017 11:41 AM CARDIAC EXERCISE SPECIALIST Per Dr. Galarza patient needs to be moved to CT Machine for better imagining in this encounter H&P Notes * Joey Galarza MD - 05/28/2017 11:12 AM CARDIAC EXERCISE SPECIALIST Formatting of this note may be different from the original. Pre Procedure History and Physical/Sedation Plan Procedure Date: 05/28/2017 Planned Procedure(s): Bone Marrow Biopsy Indication: Leukemia Sedation/Medication Plan: Conscious sedation Discussion/Reviews: Physician has discussed risks and alternatives of this type of sedation and above planned procedures with patient Notes: none Active Problems: * No active hospital problems. * Chief Complaint: Leukemia History of Present Illness: Giselle Khan is a 56 y.o. female with leukemia Nursing Medical History Nursing Surgical History Pertinent medical/surgical history reviewed Social History Social History Marital status: Spouse name: N/A Number of children: N/A Years of education: N/A Social History Main Topics Smoking status: Never Smoker Smokeless tobacco: Never Used Alcohol use No Drug use: No Sexual activity: Not on file Other Topics Concern Not on file Social History Narrative No narrative on file Family history reviewed; non-contributory Allergies: Ciprofloxacin; Levofloxacin; Nsaids (non-steroidal anti- inflammatory drug); Bactrim [sulfamethoxazole-trimethoprim]; and Contrast dye iv , iodine containing [iodinated contrast- oral and iv dye] Medications: Current Outpatient Prescriptions Medication Sig ALPRAZolam (XANAX) 1 mg tablet Take 1 mg by mouth three times daily as needed for Anxiety. apixaban (ELIQUIS) 5 mg tablet ON HOLD UNTIL COUNT RECOVERY atenolol (TENORMIN) 50 mg tablet Take 0.5 tablets by mouth daily. blood sugar diagnostic (Meme ULTRA TEST) test strip Use 1 strip [...] on Days 8-21 of each chemotherapy cycle. ONETOUCH VERIO IQ METER kit Use as [...] 10 mL to area(s) as directed daily. Current Facility-Administered Medications Medication lidocaine 1 % (10mg/mL) injection 50 mL Review of Systems: Pertient as noted per HPI Physical Exam: Temp: 36.7 C (98.1 F) (05/28 1043) Pulse: 84 (05/28 1043) Respirations: 23 PER MINUTE (05/28 104) BP: 138/66 (05/28 1043) General: Alert, cooperative, no distress, appears stated age Airway: airway assessment performed Mallampati I (soft palate, uvula, fauces, tonsillar pillars visible) Anesthesia Classification: ASA I (A normal healthy patient) Lab/Radiology/Other Diagnostic Tests: Labs: Pertinent labs reviewed CXR: Not obtained Consults: Not obtained Joey Galarza MD in this encounter Miscellaneous Notes * Procedures (Immed Post or Bedside) - Joey Galarza MD - 05/28/2017 12:34 PM CARDIAC EXERCISE SPECIALIST Immediate Post Procedure Note Date: 05/28/2017 Attending Physician: Joey Galarza Procedure(s): Bone marrow biopsy Pre/Post Diagnosis: Leukemia Description/Findings: Core specimen Anesthesia: 2% lidocaine Versed 5 mg IV, fentanyl 150 mcg IV Time out performed: Consent obtained, correct patient verified, correct procedure verified, correct site verified, patient marked as necessary. Estimated Blood Loss: None/Negligible Specimen(s) Removed/Disposition: Cytology present Complications: None Joey Galarza MD in this encounter Plan of Treatment Name Priority Associated Diagnoses Date/Time CHROMOSOMES BONE MARROW Routine Acute myeloid leukemia 05/28/2017 12:34 PM CARDIAC EXERCISE SPECIALIST not having achieved remission (HCC) as of this encounter Results * CT GUIDE NEEDLE PLACEMENT (05/28/2017 12:40 PM) Specimen Performing Laboratory [facility] RAD RESULTS Impressions 1. Successful CT guided bone marrow aspiration and core biopsy. IJoey M.D., the attending radiologist, was present for the procedure, personally reviewed the images, and formulated the interpretations and opinions expressed in this report. @TT Finalized by JOEY GALARZA on 05/28/2017 5:22 PM. Dictated by JOEY GALARZA on 2016 5:[address] GUIDED BONE MARROW ASPIRATION AND CORE BIOPSY CLINICAL HISTORY:Acute myeloid leukemia RADIOLOGIST:Joey Galarza M.D. MEDICATIONS:I was personally responsible for the [...] Interface, Radiant Results - 05/28/2017 5:25 PM CARDIAC EXERCISE SPECIALIST CT GUIDED BONE MARROW ASPIRATION AND CORE BIOPSY CLINICAL HISTORY: Acute myeloid leukemia RADIOLOGIST: Joey Galarza M.D. MEDICATIONS: I was personally responsible for [...] in this report. @TT Finalized by JOEY GALARZA on 05/28/2017 5:22 PM. Dictated by JOEY GALARZA on 2016 5:21 PM. * MANUAL DIFF (05/28/2017 12:34 PM) Component Value Ref Range Segmented Neutrophils 54 41 - 77 % Lymphocytes 22 (L) 24 - 44 % Monocytes 24 (H) 4 - 12 % Platelet Estimate NORMAL RBC Morph ANISO POIK OVALO Specimen Performing Laboratory MAIN LAB [address] [place] [address] * FLOW CYTOMETRY (05/28/2017 12:34 PM) Component Value Ref Range PATHOLOGY REPORT [facility] [email or web address] Doris Rodarte MD, Director of Clinical Laboratory Fede West MD, Director of Flow Cytometry Laboratory Department of Pathology and Laboratory Medicine [address] [place] [address] Surgical Pathology Office: [phone] FLOW CYTOMETRY REPORT NAME: GISELLE KHAN SURG PATH #: [id number] MR #: [id number] SPECIMEN CLASS: LC BILLING #: [id number] ALT ID #: LOCATION: [facility] DATE OF PROCEDURE: 05/28/2017 AGE: 56 SEX: [...] in this report. +++Electronically Signed Out By+++ sca/05/28/2017 Interpreted by: MD Brendon Rangel, DO Resident 05/31/2017 ################################################## ###################### Lab Data: Flow Cytometry - Acute Myeloid Leukemia, Minimal Residual Disease Panel Analytic sensitivity of the lower detection limit in this assay is 0.01% Myeloid Associated Markers (% Positive Cells): AN52c=5; CD13=81; CD14=1; CD15=0; CD33=30; CD36=2; CD64=11; BA776=13; B Cell Associated Markers (% Positive Cells): CD19=0; CD22=10; T Cell Associated Markers (% Positive Cells): CD2=4; CD4=1; CD5=2; CD7=4; Miscellaneous Markers (% Positive Cells): ZH85=568; LM90=828; VI88=136; CD56=8; DG358=02; HLA-Dr=93; Cell Viability (%): na Number of Cells Analyzed: [id number] Total Number of Markers: 32 Summary of Marker Combinations: 7/33/11b/34/13/45//19; Dr/117/4/34/123/45//19; Dr/56/36/34/64/45/14/19;2/22/5/34/15/45//19 This test was developed and its performance characteristics determined by the [facility] Flow Cytometry Laboratory. It has not been cleared or approved by the U.S. Food and Drug Administration (FDA). The FDA has determined that such clearance or approval is not necessary. Specimen Performing Laboratory LAB RESULTS * BONE MARROW BIOPSY IR (05/28/2017 12:34 PM) Component Value Ref Range Bone Marrow BX IR SEE PATHOLOGY REPORT Specimen Performing Laboratory [facility]IN [facility] [address] [place] [address] * CBC W/DIFF BM (05/28/2017 12:34 PM) [...] FL Specimen Performing Laboratory MAIN LAB [address] [place] [address] * LEUKEMIA/LYMPHOMA PNL, BONE MARROW (05/28/2017 12:34 PM) Component Value Ref Range Leuk/Lymph Interpretation SEE PATHOLOGY REPORT Specimen/LLM BONE MARROW Specimen Performing Laboratory Bone Marrow MAIN LAB [address] [place] [address] * BONE MARROW ASP (05/28/2017 12:34 PM) Component Value Ref Range Bone Marrow Asp SEE PATHOLOGY REPORT Specimen Performing Laboratory Bone Marrow MAIN LAB [address] [place] [address] in this encounter Visit Diagnoses Diagnosis Acute myeloid leukemia not having achieved remission (HCC) in this encounter Administered Medications Medication Order MAR Action Action Date Dose Rate Site fentaNYL citrate PF (SUBLIMAZE) Given 05/28/2017 50 mcg injection 11:37 CARDIAC EXERCISE SPECIALIST INTRA-PROCEDURE MED, Starting Wed05/28/17 at 1137, Until Wed05/28/17 at 1222 Given 05/28/2017 50 mcg 11:41 CARDIAC EXERCISE SPECIALIST Given 05/28/2017 50 mcg 12:22 CARDIAC EXERCISE SPECIALIST midazolam (VERSED) injection Given 05/28/2017 1 mg INTRA-PROCEDURE MED, Starting Wed 12:20 CARDIAC EXERCISE SPECIALIST 05/28/17 at 1135, Until Wed05/28/17 at 1228 Given 05/28/2017 1 mg 12:24 CARDIAC EXERCISE SPECIALIST Given 05/28/2017 1 mg 12:28 CARDIAC EXERCISE SPECIALIST in this encounter
--- OUTSIDE RECORDS SUMMARY | 2017-06-11 18:34 | XMS REPORT | Encounter Summary ---
Author Author [facility] Organization [facility] Address Unknown Phone Unavailable Care Team Providers Care Metal Framer Name Role Phone PCP Unavailable Reason for Referral * Radiology Services Status Reason Specialty Diagnoses / Referred By Referred To Procedures Contact Contact No Auth Needed Radiology Diagnoses Herve Mckinley Ir Acute myeloid MD L[place] [address] leukemia not [address] [place], [place] having achieved [address] [address] remission (HCC) [address] Phone: [place], [place] [phone] NEEDLE Phone: PLACEMENT [phone] IR BONE MARROW Fax: BIOPSY [phone] AR BONE MARROW BIOPSY NEEDLE/TROCAR Encounter Details Date Type Department Care Team Description 05/28/2017 Ancillary [facility] Lacho Mckinley MD Acute myeloid leukemia [facility] - BMT Exam [address] not having achieved [address] remission (HCC) [address] [place] [address] [place] [address] [phone] Social History Tobacco Use Types Packs/Day Years [...] on fileas of this encounter Results * CT GUIDE [...] Interface, Radiant Results - 05/28/2017 5:[address] GUIDED BONE MARROW ASPIRATION AND CORE [...] by JOEY GALARZA on 2016 5:21 PM. in this encounter Visit Diagnoses Diagnosis Acute myeloid leukemia not having achieved remission (HCC) in this encounter
--- OUTSIDE RECORDS SUMMARY | 2017-06-11 18:34 | XMS REPORT | Encounter Summary ---
Author Author [facility] Organization [facility] Address Unknown Phone Unavailable Care Team Providers Care Reclaimer Name Role Phone PCP Unavailable Reason for Visit * Reason Comments Heme/Onc Care Encounter Details Date Type Department Care Team Description 05/28/2017 Nurse Only [facility] Lacho Eldridge MD Acute myeloid leukemia [facility] - B[facility] Exam [address] not having achieved [address] remission (HCC) [address] [place] [address] [place] [address] [phone] Social History Tobacco Use Types Packs/Day Years [...] on fileas of this encounter Results * BONE MARROW (05/28/2017 3:05 PM) Component Value Ref Range PATHOLOGY REPORT [facility] [email or web address] Department of Pathology and Laboratory Medicine [address] [place] [address] Surgical Pathology Office: [phone] SURGICAL PATHOLOGY REPORT NAME: GISELLE KHAN SURG PATH #: [id number] MR #: [id number] ALT ID #: LOCATION: BMTEXM DATE OF PROCEDURE: 05/28/2017 AGE: 56 SEX: F DATE RECEIVED: 05/28/2017 : 1960 TIME RECEIVED: 15:05 PHYSICIAN: LACHO ELDRIDGE DATE OF REPORT: 05/31/2017 COPY TO: [...] and/or other material indicated in this report. aSlty Schneider MD Resident lkr/05/31/2017 Material Received: A: [...] submitted in cassette B1 after decalcification. (lad) /05/28/2017 Microscopic Description: CBC Data: HGB 9.2 (g/dL); [...] Studies: Flow Cytometry: Performed, See separate report ([id number]), which shows neoplastic myeloid blasts present (1.25%) Cytogenetics: Performed, See separate report Fluorescence In Situ Hybridization: Not Performed Molecular Genetics: Not Performed Preliminary Diagnosis: Not Performed If immunohistochemical stains and/or in situ hybridization are cited in this report, the performance characteristics were determined by the Department of Pathology and Laboratory Medicine of the [facility] ([employer]) in compliance with CLIA'88 [...] of Pathology and Laboratory Medicine of the [facility]. It has not been cleared or approved by the FDA. The FDA has determined that such clearance or approval is not necessary. Specimen Performing Laboratory [facility] LAB RESULTS * COMPREHENSIVE METABOLIC PANEL (05/28/2017 3:02 PM) [...] Pharmacist for questions. Specimen Performing Laboratory Blood [facility] [address] [place] [address] * CBC AND DIFF (05/28/2017 3:02 PM) [...] 7.0 K/UL Manual Specimen Performing Laboratory Blood [facility] [address] [place] [address] in this encounter Visit Diagnoses Diagnosis Acute myeloid leukemia not having achieved remission (HCC) in this encounter
--- OUTSIDE RECORDS SUMMARY | 2017-06-11 18:34 | XMS REPORT | Encounter Summary ---
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 The patient will receive the medication directly from the drug company during the approval period. Drug Company Medication Assistance Contact Information: [employer] [phone] [facility] Patient Advocate in this encounter Plan of Treatment Not on fileas of this encounter Visit Diagnoses Not on filein this encounter
--- OUTSIDE RECORDS SUMMARY | 2017-06-11 18:34 | XMS REPORT | Encounter Summary ---
Author Author [facility] Organization [facility] Address Unknown Phone Unavailable Care Team Providers Care Beta Tester Name Role Phone PCP Unavailable Encounter Details Date Type Department Care Team Description 05/23/2017 Orders Only [facility] Beatriz Patel [facility] [address] [place] [phone] Social History Tobacco Use Types Packs/Day Years [...]
--- OUTSIDE RECORDS SUMMARY | 2017-06-11 18:34 | XMS REPORT | Encounter Summary ---
Author Author [facility] Organization [facility] Address Unknown Phone Unavailable Care Team Providers Care Waiter/Waitress Take Out Name Role Phone PCP Unavailable Reason for Visit * Reason Comments Heme/Onc Care Encounter Details Date Type Department Care Team Description 05/28/2017 Office Visit [facility] Lacho Mckinley MD Acute myeloid leukemia Cancer Center - BMT Exam [address] not having achieved [address] [address] remission (HCC) (Primary [address] [place] [address] Dx) [place] [address] [phone] Carmen Villela, MORTUARY OPERATIONS MANAGER [address] [place] [address] [phone] Social History Tobacco Use Types Packs/Day Years Used Date Never Smoker Smokeless Tobacco: Never Used Alcohol Use Drinks/Week oz/Week Comments No Sex Assigned at Date Recorded Not on file as of this encounter Last Filed Vital Signs Vital Sign Reading Time Taken Blood Pressure 117/40 05/28/2017 3:04 PM CRUISE GUIDE Pulse 68 05/28/2017 3:04 PM CRUISE GUIDE Temperature 36.8 C (98.3 F) 05/28/2017 3:04 PM CRUISE GUIDE Respiratory Rate 16 05/28/2017 3:04 PM CRUISE GUIDE Oxygen Saturation 100% 05/28/2017 3:04 PM CRUISE GUIDE Inhaled Oxygen - - Concentration Weight 136.1 kg (300 lb) 05/28/2017 3:04 PM CRUISE GUIDE Height 170.2 cm (5' 7.01") 05/28/2017 3:04 PM CRUISE GUIDE Body Mass Index 46.98 05/28/2017 3:04 PM CRUISE GUIDE in this encounter Functional Status Functional Status [...] as of this encounter Progress Notes * Carmen Talamantes APRN - 05/28/2017 3:00 PM CRUISE GUIDE Formatting of this note may be different from the original. Name: Giselle Khan : 1960 AGE: 56 y.o. DATE OF SERVICE: 05/28/2017 Subjective: C/o fatigue and LE edema. No nausea or emesis. No new rash. Reason for Visit: follow up post hospital discharge for management of AML. [facility] Care Giselle Khan is a 56 y.o. female. Arrived to clinic via wheelchair. Accompanied by . History of Present Illness HPI: Patient presented to the ED at [facility] in [place], [place] 04/23/2017 with complaints of generalized weakness [...] Systems Constitutional: Positive for fatigue. HENT: Negative. Respiratory: Negative. Gastrointestinal: Negative. Genitourinary: Negative. Musculoskeletal: Negative. Neurological: Negative. Objective: ALPRAZolam (XANAX) 1 mg tablet Take 1 mg by mouth three times daily as needed for Anxiety. apixaban (ELIQUIS) 5 mg tablet ON HOLD UNTIL COUNT RECOVERY atenolol (TENORMIN) 50 mg tablet Take 0.5 tablets by mouth daily. blood sugar diagnostic ([employer] ULTRA TEST) test strip Use 1 strip as directed before meals and at bedtime. blood sugar diagnostic ([employer] VERIO) test strip Use 1 strip as [...] on Days 8-21 of each chemotherapy cycle. [employer] VERIO IQ METER kit Use as directed [...] mL to area(s) as directed daily. Vitals: 05/28/17 1504 BP: 117/40 Pulse: 68 Resp: 16 Temp: 36.8 C (98.3 F) TempSrc: Oral SpO2: 100% Weight: 136.1 kg (300 lb) Height: 170.2 cm (67.01") Body mass index is 46.98 kg/(m^2). Pain Score: Zero Pain Addressed: Current regimen working to control [...] Profile Lab Results Component Value Date/Time NA 141 05/21/2017 08:42 AM K 3.6 05/21/2017 08:42 AM CL 110 05/21/2017 08:42 AM CO2 27 05/21/2017 08:42 AM GAP 4 05/21/2017 08:42 AM BUN 29 (H) 05/21/2017 08:42 AM CR 0.98 05/21/2017 08:42 AM GLU 91 05/21/2017 08:42 AM Lab Results Component Value Date/Time CA 8.6 05/21/2017 08:42 AM PO4 5.7 (H) 05/02/2017 04:25 AM ALBUMIN 2.7 (L) 05/21/2017 08:42 AM TOTPROT 5.8 (L) 05/21/2017 08:42 AM ALKPHOS 195 (H) 05/21/2017 08:42 AM AST 11 05/21/2017 08:42 AM ALT 11 05/21/2017 08:42 AM TOTBILI 0.5 05/21/2017 08:42 AM GFR 58 (L) 05/21/2017 08:42 AM GFRAA >60 05/21/2017 08:42 AM Assessment and Plan: Primary Diagnosis:Acute myeloid leukemia, monocytic subtype, Normal cytogenetics. 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 Plan to admit next week for IDAC. - LP with IT chemo today as prophy given high WBC at presentation - Flow negative, cytology negative BM hypocellular with 1% blasts, flow with 0.04% neoplastic blasts. She has FLt3 mutation thus having high risk AML. She is not a BMT candidate due to her comorbidities at this time. Discussed consolidation after the remission BM with iDAC with midostaurin x 3 cycles. Called to see if Dr. Arias can do this in [place] but he is not set up - will plan to give the chemo at but will have to stay at [facility] post chemo for 3 weeks. Heme: - Pancytopenia due to chemotherapy, monitor for transfusion needs to keep Hgb>7 and platelets >10K. WBC increasing. - Previously on anticoagulation with apixaban for Atrial fibrillation, restart with resolution of thrombocytopenia - Day 28 BM today. Results pending. FEN/Renal: - Monitor electrolytes, high goal replacement with h/o atrial fibrillation. Replace K and Mg - start KCl 20 bid and Mag 400 mg bid - Has lower extremity edema - can restart Lasix 40 mg with KCl. ID: - Afebrile. - Presented with UTI and fever - Urine cx from [facility] 04/23: + E.Coli resistant to ampicillin, Bactrim, Nitrofurantoin. Intermediate resistance to gent and Unasyn. Susceptible to ceftriaxone, zosyn, meropenem, cipro and aztreonam - Cefepimecontinues, had vancomycin and daptomycin on 04/24-04/25, discontinued , Cefepime discontinued 05/19 with ANC>500. GI: - No nausea, vomiting, has prn anti-emetics available - Good PO intake. - Obese, BMT>40 Endo: - Has type II DM, on glimiperide has been discontinued on admission - Endocrinology consultation obtained and appreciate recommendations; insulin regimen per endo CVS: - H/o atrial fibrillation, rate controlled. She was on VEGETABLE WASHER atenolol, diltiazem, furosemide. VEGETABLE WASHER lasix on hold and giving as needed. - Mild moderate - Will hold VEGETABLE WASHER apixaban with thrombocytopenia - can restart with [...] continued at low dose - Lives in [place], , currently on disability, son lives in [facility] Admit to hospital next week for consolidation. Carmen Talamantes MORTUARY OPERATIONS MANAGER in this encounter Plan of Treatment Not on fileas of this encounter Visit Diagnoses Diagnosis Acute myeloid leukemia not having achieved remission (HCC) - Primary in this encounter
--- OUTSIDE RECORDS SUMMARY | 2017-06-11 18:34 | XMS REPORT | Encounter Summary ---
Author Author [facility] Organization [facility] Address Unknown Phone Unavailable Care Team Providers Care Hand Ironer Name Role Phone PCP Unavailable Reason for Visit * Reason Comments Appointment Encounter Details Date Type Department Care Team Description 05/21/[address] [facility] Sherie Diaz, RN Appointment Cancer Center - BMT Exam [address] [facility] [address] [place] [address] Social History Tobacco Use Types Packs/Day Years [...] encounter Miscellaneous Notes * Telephone Encounter - Sherie Diaz RN - 05/21/2017 3:10 PM CDT contacted patient to review schedule for bone marrow biopsy to be done in @ [facility] followed by return visit with TRUCK LEASING MANAGER and labs all on 05/28/17. She will then return to see the physician on 06/02 to discuss biopsy results and consolidation chemotherapy. Plan is to admit on 06/03 for HIDAC. Patient asked that schedule be emailed to her which has been done. in this encounter Plan of Treatment Not on fileas of this encounter Visit Diagnoses Not on filein this encounter
--- OUTSIDE RECORDS SUMMARY | 2017-06-11 18:34 | XMS REPORT | Encounter Summary ---
Author Author [facility] Organization [facility] Address Unknown Phone Unavailable Care Team Providers Care Patrol Police Sergeant Name Role Phone PCP Unavailable Encounter Details Date Type Department Care Team Description 05/21/2017 Pre/Post [facility] Leonardo Kramer RN Procedure Hospital Radiology [address] [facility] [address] [place] [address] Social History Tobacco Use Types Packs/Day Years [...] as of this encounter Progress Notes * Leonardo Kramer, NEVA - 05/21/2017 9:18 AM CDT Interventional Radiology Outpatient Scheduling Checklist 1. Procedure: Bone Marrow BX Appointment scheduled by Celina with BMT who will give patient instructions 2. Date of Procedure: 05/28/17 3. Arrival Time: 1000 4. Procedure Time: 1100 5. Correct Procedural Room Assignment: ICC IR 6. Blood Thinners Triaged and instructed per protocol: Pt on Eliquis, hold x2 days per protocol starting 05/26/17 7. Order Verified: Yes 8. Patient informed regarding procedure: Yes 9. Patient instructed to have a trailer truck driver: Yes 10. Patient instructed on NPO status: 8 hours solids and 2 hours clear liquids Pt verbalized understanding NPO after MN clear liquids 0900 11. Specimen needed: Y/N: Yes 12. Allergies Verified: Y/N: Yes 13. Iodine Allergy: Y/N: If yes and receiving Iodine has the patient been premedicated: Y/N: No 14. Does the patient have labs according to IR procedural policy: Y/N: Yes 15. Will the patient need to be admitted/possible admission: Y/N: NO 16. If YES to possible admission has the patient been instructed: Y/N: 17. Patient States Understanding: Y/N Yes in this encounter Plan of Treatment Not on fileas of this encounter Visit Diagnoses Not on filein this encounter
--- OUTSIDE RECORDS SUMMARY | 2017-06-11 18:35 | XMS REPORT | Encounter Summary ---
Author Author [facility] Organization [facility] Address Unknown Phone Unavailable Care Team Providers Care Anthropologist Physical Name Role Phone PCP Unavailable Reason for Visit * Reason Comments Heme/Onc Care Encounter Details Date Type Department Care Team Description 05/21/2017 Nurse Only [facility] Lacho Mckinley MD Acute myeloid leukemia Cancer Center - BMT Exam [address] not having achieved [address] remission (HCC) [address] [place] [address] [place] [address] [phone] Social History Tobacco Use Types Packs/Day Years [...] on fileas of this encounter Results * PERIPHERAL SMEAR (05/21/2017 8:42 AM) Component Value Ref Range Peripheral Smear NORMOCYTIC ANEMIA AND POLYCHROMESIA. ABSOLUTE NEUTROPENIA WITH LEFT SHIFT. MILD THROMBOCYTOPENIA WITH NORMAL PLATELET MORPHOLOGY AND 2% BLASTS. Pathologist Signature INTERPRETED BY SHANELLE JAY M.D. By the PATH SIGNATURE ABOVE, I attest that I have personally formulated the final interpretation expressed in this report and that the above diagnosis is based upon my examination of the slides and/or other material indicated in this report. Specimen Performing Laboratory [facility] [address] [place] [address] * COMPREHENSIVE METABOLIC PANEL (05/21/2017 8:42 AM) Component Value Ref Range Sodium 141 137 - 147 MMOL/L Potassium 3.6 3.5 - 5.1 MMOL/L Chloride 110 98 - 110 MMOL/L Glucose 91 70 - 100 MG/DL Blood Urea Nitrogen 29 (H) 7 - 25 MG/DL Creatinine 0.98 0.4 - 1.00 MG/DL Calcium 8.6 8.5 - 10.6 MG/DL Total Protein 5.8 (L) 6.0 - 8.0 G/DL Total Bilirubin 0.5 0.3 - 1.2 MG/DL Albumin 2.7 (L) 3.5 - 5.0 G/DL Alk Phosphatase 195 (H) 25 - 110 U/L AST (SGOT) 11 7 - 40 U/L CO2 27 21 - 30 MMOL/L ALT (SGPT) 11 7 - 56 U/L Anion Gap 4 3 - 12 eGFR Non 58 (L) >60 mL/min Comment: The eGFR is not [...] Pharmacist for questions. Specimen Performing Laboratory Blood [facility] [address] [place] [address] * CBC AND DIFF (05/21/2017 8:42 AM) Component Value Ref Range White Blood Cells 2.7 (L) 4.5 - 11.0 K/UL RBC 2.80 (L) 4.0 - 5.0 M/UL Hemoglobin 8.1 (L) 12.0 - 15.0 GM/DL Hematocrit 23.9 (L) 36 - 45 % MCV 85.6 80 - 100 FL MCH 29.1 26 - 34 PG MCHC 34.0 32.0 - 36.0 G/DL RDW 14.8 11 - 15 % Platelet Count 142 (L) 150 - 400 K/UL MPV 8.8 7 - 11 FL Nucleated RBCs 5 K/UL Segmented Neutrophils 18 (L) 41 - 77 % Bands 7 0 - 10 % Lymphocytes 42 24 - 44 % Monocytes 20 (H) 4 - 12 % Eosinophil 1 0 - 5 % Metamyelocyte 5 % Myelocyte 5 % Other Cells 2 % Comment: OTHERS=BLAST CRITICAL VALUE CALLED TO AND READ BACK BY/TIME/TECH MAY 2412/1514/LT INTERPRETED BY SHANELLE JAY M.D. ANISO PRESENT POIK PRESENT POLY PRESENT Ovalocyte PRESENT Platelet Estimate SLT DEC Absolute Neutrophil Count 0.68 (L) 1.8 - 7.0 K/UL Manual Specimen Performing Laboratory Blood [facility] [address] [place] [address] in this encounter Visit Diagnoses Diagnosis Acute myeloid leukemia not having achieved remission (HCC) in this encounter
--- OUTSIDE RECORDS SUMMARY | 2017-06-11 18:35 | XMS REPORT | Encounter Summary ---
Author Author [facility] Organization [facility] Address Unknown Phone Unavailable Care Team Providers Care Campus Director Name Role Phone PCP Unavailable Reason for Visit * Reason Comments Heme/Onc Care Encounter Details Date Type Department Care Team Description 05/21/2017 Hospital [facility] Lacho Mckinley MD Encounter Cancer Center - BMT [address] [facility] [address] [facility] [place] [address] [address] [place] [address] [phone] Social History Tobacco Use Types Packs/Day Years [...] impairment: No 05/19/2017 as of this encounter Medications at Time of Discharge [...] as directed daily. as of this encounter Miscellaneous Notes * Addendum Note - Monserrat Santamaria RN - 05/24/2017 3:13 PM BRIDGE OPERATOR Encounter addended by: Monserrat Santamaria RN on: 05/24/2017 3:13 PM
Actions taken: Sign clinical note * Critical Results - Monserrat Santamaria RN - 05/24/2017 3:07 PM BRIDGE OPERATOR CRITICAL RESULT NOTIFICATION Critical result or procedure called (document test and value, and read back): Blasts 2% Time MD/DEFENCE INTELLIGENCE ANALYST Notified: 1510 MD/DEFENCE INTELLIGENCE ANALYST Name: Sandrita Talamantes APRN, MD/DEFENCE INTELLIGENCE ANALYST Response/Orders Given: No new orders at this time in this encounter Plan of Treatment Not on fileas of this encounter Visit Diagnoses Not on filein this encounter
--- OUTSIDE RECORDS SUMMARY | 2017-06-11 18:35 | XMS REPORT | Encounter Summary ---
Author Author [facility] Organization [facility] Address Unknown Phone Unavailable Care Team Providers Care Stranding Machine Operator Helper Name Role Phone PCP Unavailable Encounter Details Date Type Department Care Team Description 05/19/2017 Pharmacy Visit [facility] [address] [place] [address] Social History Tobacco Use Types Packs/Day Years [...]
--- OUTSIDE RECORDS SUMMARY | 2017-06-11 18:35 | XMS REPORT | Encounter Summary ---
Author Author [facility] Organization [facility] Address Unknown Phone Unavailable Care Team Providers Care Gate Keeper Name Role Phone PCP Unavailable Encounter Details Date Type Department Care Team Description 05/21/2017 Documentation [facility] Sherie Diaz RN Cancer Center - BMT Exam [address] [place] [address] Social History Tobacco Use Types Packs/Day Years [...] Progress Notes * Sherie Diaz RN - 05/21/2017 7:54 AM CDT Giselle Khan [id number] 1960 56 y.o. Diagnosis: AML flt 3 pos Date of diagnosis: 05/04 Cytogenetics/FISH at diagnosis: 44, XX FLT3-ITD detected on both NGS and PCR also NPM1 + Referring physician/phone: inpt BMT transfered from Dr. Jenn Diaz Current therapy: s/p 7+3 Day +24 Plan: HIDAC with referring if possible Not a candidate for transplant Testing: needs repeat marrow to document remission Research/studies: N/A Donor Options (if applicable): N/A Social Situation: lives with in [facility] Insurance: Medicare Coordinator: Sherie Diaz RN Last Mammogram (Date/where) Last Colonoscopy (date) I have reviewed the distress thermometer and needs assessment, including physical, psychological, social, spiritual and behavioral needs. The patient completed the assessment during this visit to identify psychosocial needs that may interfere with the patient's plan of care. I have made the following referrals based on this assessment and discussion with the patient: Other will refer to financial and social work Met with patient and her spouse. Patient presents today in a wheelchair. Her performance status and co-morbidities make her ineligible as a transplant candidate. Plan is to repeat a marrow next week with a follow up and arrange for treatment with HIDAC in [place]. She will also start taking Midostaurin at the time of the HIDAC. We will plan for a bone marrow using fluroscopy secondary to her body habitus. We will draw labs today and have patient follow up after the bone marrow biopsy for treatment recommendation. in this encounter Plan of Treatment Not on fileas of this encounter Visit Diagnoses Not on filein this encounter
--- OUTSIDE RECORDS SUMMARY | 2017-06-11 18:35 | XMS REPORT | Encounter Summary ---
Author Author [facility] Organization [facility] Address Unknown Phone Unavailable Care Team Providers Care Junior Web Designer Name Role Phone PCP Unavailable Encounter Details Date Type Department Care Team Description 05/21/2017 Orders Only [facility] Sherie Diaz RN Acute myeloid leukemia Cancer Center - BMT Exam not having achieved [address] remission (HCC) (Primary [address] Dx) [place] [address] Social History Tobacco Use Types Packs/Day Years [...] this encounter Results * COMPREHENSIVE METABOLIC PANEL (05/21/2017 8:42 AM) [...] Pharmacist for questions. Specimen Performing Laboratory Blood [facility] [address] [place] [address] * CBC AND DIFF (05/21/2017 8:42 AM) [...] 7.0 K/UL Manual Specimen Performing Laboratory Blood [facility] [address] [place] [address] in this encounter Visit Diagnoses Diagnosis Acute myeloid leukemia not having achieved remission (HCC) - Primary in this encounter
--- OUTSIDE RECORDS SUMMARY | 2017-06-11 18:35 | XMS REPORT | Encounter Summary ---
Author Author [facility] Organization [facility] Address Unknown Phone Unavailable Care Team Providers Care Drapery Head Former Name Role Phone PCP Unavailable Reason for Visit * Reason Comments Heme/Onc Care * Treatment (Routine) Status Reason Specialty Diagnoses / Referred By Referred To Procedures Contact Contact Closed Diagnoses Serina Bush MD Cc-Ww Bmt Exm AML (acute [address] [place] leukemia) (HCC) [address] [place] [address] Phone: Fax: Encounter Details Date Type Department Care Team Description 05/21/2017 Office Visit [facility] Lacho Mckinley MD Multiple myeloma not Cancer Center - BMT Exam [address] having achieved remission [address] (HCC) [address] [place] [address] [place] [address] [phone] Social History Tobacco Use Types Packs/Day Years Used Date Never Smoker Smokeless Tobacco: Never Used Alcohol Use Drinks/Week oz/Week Comments No Sex Assigned at Date Recorded Not on file as of this encounter Last Filed Vital Signs Vital Sign Reading Time Taken Blood Pressure 111/80 05/21/2017 7:48 AM CDT Pulse 76 05/21/2017 7:48 AM CDT Temperature 36.6 C (97.8 F) 05/21/2017 7:48 AM CDT Respiratory Rate 16 05/21/2017 7:48 AM CDT Oxygen Saturation 100% 05/21/2017 7:48 AM CDT Inhaled Oxygen - - Concentration Weight 136.2 kg (300 lb 3.2 oz) 05/21/2017 7:48 AM CDT Height 170.2 cm (5' 7.01") 05/21/2017 7:48 AM CDT Body Mass Index 47.01 05/21/2017 7:48 AM CDT in this encounter Functional Status Functional Status [...] as of this encounter Progress Notes * Ketty Yee RN - 05/21/2017 7:[address] Mckinley prescriptions sent for Magnesium Oxide 400mg BID and Potassium Chloride 20 meq BID to patients pharmacy in [place], [place]. Patient called and told about new prescriptions. Patient also instructed to restart Eloquis and HOLD medication 2 days prior to bone marrow tests. Patient verbalized understanding. * Lacho Mckinley MD - 05/21/2017 7:30 AM CDT Formatting of this note may be different from the original. Name: Giselle Khan : 1960 AGE: 56 y.o. DATE OF SERVICE: 05/21/2017 Subjective: C/o fatigue and LE edema. No nausea or emesis. No new rash. Reason for Visit: follow up post hospital discharge for management of AML. [facility] Giselle Khan is a 56 y.o. female. History of Present Illness HPI: Patient presented to the ED at [facility] in [place], [place] 04/23/2017 with complaints of generalized weakness [...] cells. Review of Systems Constitutional: Positive for activity change, appetite change and fatigue. HENT: Positive for voice change. Respiratory: Positive for apnea. Cardiovascular: Positive for palpitations and leg swelling. Genitourinary: Positive for hematuria. Neurological: Positive for weakness and headaches. Hematological: Bruises/bleeds easily. Psychiatric/Behavioral: Positive for sleep disturbance. The patient is nervous/ anxious. All other systems reviewed and are negative. Objective: ALPRAZolam (XANAX) 1 mg tablet Take 1 mg by mouth three times daily as needed for Anxiety. apixaban (ELIQUIS) 5 mg tablet ON HOLD UNTIL COUNT RECOVERY atenolol (TENORMIN) 50 mg tablet Take 0.5 tablets by mouth daily. blood sugar diagnostic (ONETOUCH ULTRA TEST) test [...] daily with breakfast. lancets (ONE TOUCH DELICA) [facility] Use 1 each as directed four times daily as needed. Diag: Magnesium 200 mg tab Take 2 tablets by mouth twice daily. midostaurin (RYDAPT) 25 mg capsule Take 2 capsules (50mg) by mouth twice daily with meals on Days 8-21 of each chemotherapy cycle. The [employer] IQ METER kit Use as directed three [...] mL to area(s) as directed daily. Vitals: 05/21/17 0748 BP: 111/80 Pulse: 76 Resp: 16 Temp: 36.6 C (97.8 F) TempSrc: Oral SpO2: 100% Weight: (!) 136.2 kg (300 lb 3.2 oz) Height: 170.2 cm (67.01") Body mass index is 47.01 kg/(m^2). Pain Score: Zero Pain Addressed: Current [...] w/Diff Lab Results Component Value Date/Time WBC 2.7 (L) 05/21/2017 08:42 AM RBC 2.80 (L) 05/21/2017 08:42 AM HGB 8.1 (L) 05/21/2017 08:42 AM HCT 23.9 (L) 05/21/2017 08:42 AM MCV 85.6 05/21/2017 08:42 AM MCH 29.1 05/21/2017 08:42 AM MCHC 34.0 05/21/2017 08:42 AM RDW 14.8 05/21/2017 08:42 AM PLTCT 142 (L) 05/21/2017 08:42 AM MPV 8.8 05/21/2017 08:42 AM Lab Results Component Value Date/Time NEUT 34 (L) 05/19/2017 02:10 AM ANC 0.68 (L) 05/21/2017 08:42 AM ANC 0.50 (L) 05/19/2017 02:10 AM LYMA [...] in FLT3 ITD, NPM1, WT1 Transferred from [facility] with leucocytosis concerning for AML Day 24of 7+3 - LP with IT chemo today as [...] if Dr. Arias can do this in [place] but he is not set up - will plan to give the chemo at but will have to stay at [facility] post chemo for 3 weeks. Heme: - Pancytopenia due to chemotherapy, monitor for transfusion needs to keep Hgb>7 and platelets >10K. WBC increasing, ANC 680 today. - Previously on anticoagulation with apixaban for Atrial fibrillation, restart with resolution of thrombocytopenia -will schedule day 28 BM next week - hold Eliquis prior to BM test FEN/Renal: - Monitor electrolytes, high goal replacement with h/o atrial fibrillation. Replace K and Mg - start KCl 20 bid and Mag 400 mg bid - Has lower extremity edema - can restart Lasix 40 mg with KCl. ID:Afebrile. - Presented with UTI and fever - Urine cx from [facility] 04/23: + E.Coli resistant to ampicillin, Bactrim, Nitrofurantoin. Intermediate resistance to gent and Unasyn. Susceptible to ceftriaxone, zosyn, meropenem, cipro and aztreonam - Cefepimecontinues, had vancomycin and daptomycin on 04/24-04/25, discontinued , Cefepime discontinued 05/19 with ANC>500. GI: - No nausea, vomiting, has prn anti-emetics available - good PO intake. - Obese, BMT>40 Endo: - Has type II DM, on glimiperide has been discontinued on admission - Endocrinology consultation obtained and appreciate recommendations; insulin regimen per endo CVS: - H/o atrial fibrillation, rate controlled. She was on [employer] atenolol, diltiazem, furosemide. [employer] lasix on hold and giving as needed. - Mild moderate - Will hold [employer] apixaban with thrombocytopenia - can restart with [...] continued at low dose - Lives in [facility], , currently on disability, son lives in [facility] next week for BM lab and visit in this encounter Plan of Treatment Not on fileas of this encounter Results * MAGNESIUM (05/21/2017 8:42 AM) Component Value Ref Range Magnesium 1.7 1.6 - 2.6 mg/dL Specimen Performing Laboratory [facility] [address] [place] [address] in this encounter Visit Diagnoses Diagnosis Multiple myeloma not having achieved remission (HCC) Multiple myeloma, without mention of having achieved remission in this encounter
[2017-06-11] MEDS ORDERED: NS IV 500 ML 500 ML IV ONE (18:38)
--- OUTSIDE RECORDS SUMMARY | 2017-06-11 18:53 | XMS REPORT | Encounter Summary ---
Author Author [facility] Organization [facility] Address Unknown Phone Unavailable Care Team Providers Care Conditioner Tender Name Role Phone PCP Unavailable Reason for Visit * Auth/Cert Status Reason Specialty Diagnoses / Referred By Referred To Procedures Contact Contact Diagnoses AML Leukocytosis Encounter Details Date Type Department Care Team Description 04/24/2017 [place] [address] Vira Nagy MD AML (acute myelogenous - Encounter [address] leukemia) (HCC ) 05/19/2017 [place] [address] [place] [address] [phone] S Dipesh bailon MD [address] [place] [address] Luis Smith MD [address] [place] [address] Bruno Hernandez MD [address] [place] [address] [phone] Heena Blankenship MD [address] [place] [address] [phone] Alisha Godoy MD [address] [place] [address] Cristina Rocha MD [address] [place] [address] [phone] Maxwell Miranda MD [address] [place], [place] [id number] Social History Tobacco Use Types Packs/Day Years Used Date Never Smoker Smokeless Tobacco: Never Used Alcohol Use Drinks/Week oz/Week Comments No Sex Assigned at Date Recorded Not on file as of this encounter Last Filed Vital Signs Vital Sign Reading Time Taken Blood Pressure 116/45 05/19/2017 8:02 AM CDT Pulse 59 05/19/2017 8:02 AM CDT Temperature 36.5 C (97.7 F) 05/19/2017 8:02 AM CDT Respiratory Rate - - Oxygen Saturation 100% 05/19/2017 8:02 AM CDT Inhaled Oxygen - - Concentration Weight 121.6 kg (268 lb) 05/18/2017 4:02 AM CDT Height 170.2 cm (5' 7") 04/24/2017 7:28 AM CDT Body Mass Index 41.97 05/18/2017 4:02 AM CDT in this encounter Functional Status [...] as of this encounter Discharge Summaries * Maxwell Clarke MD - 05/19/2017 8:52 AM CDT Formatting of this note may be different from the original. 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 Allergies: Ciprofloxacin; Levofloxacin; Nsaids (non-steroidal anti-inflammatory drug); Bactrim [sulfamethoxazole-trimethoprim]; and Contrast dye iv, iodine containing [iodinated contrast- oral and iv dye] Admission Physical Exam notable for: Vital Signs: Last Filed Vital Signs: 24 Hour Range BP: 113/55 (04/24 58) Temp: 36.7 C (98.1 F) (04/24 58) Pulse: 64 (04/24 58) Respirations: 24 PER MINUTE (04/24 58) SpO2: 97 % (04/24 58) O2 Delivery: Nasal Cannula (04/24 58) BP: (113)/(55) Temp: [36.7 C (98.1 F)] Pulse: [64] Respirations: [24 PER MINUTE] SpO2: [97 %] O2 Delivery: Nasal Cannula Intensity Pain Scale 0-10 (Pain 1): (not recorded) General: awake & oriented, no acute distress, appears stated age, Morbidly obese HENT: normocephalic, atraumatic, non-icteric, clear conjunctivae, no adenolymphopathy Eyes: Conjunctuvae clear. PERRL, EOMs intact. CV: S1, S2, regular rhythm and rate, no murmur, click, rub Lungs: clear to ausculation bilaterally, non-labored Abdomen: Obese abdomen, soft, non-tender, non-distended, normo-active bowel sounds Extremities: no edema, cyanosis, pulses Skin: Warm & dry. Skin color, turgor normal. No rahses or lesions Neuro: Alert and oriented to person, place and time. No focal deficits; normal muscle tone/strength, sensation and reflexes throughout. Coordination normal Psych: Normal mood and affect. Judgment and thought content normal. Admission Lab/Radiology studies notable for: HGB 7.2 04/24/2017 HCT 20.9 04/24/2017 PLTCT 43 04/24/2017 WBC 58.2 04/24/2017 ANC 6.40 04/24/2017 LYMPH 9 04/24/2017 MCV 103.4 04/24/2017 MCHC 34.4 04/24/2017 MPV 10.2 04/24/2017 RDW 19.8 04/24/2017 , Coagulation: Lab Results Component Value Date PTT 27.7 04/24/2017 INR 2.4 04/24/2017 , General Chemistry: Lab Results Component Value Date NA 135 04/24/2017 K 3.8 04/24/2017 CL 103 04/24/2017 GAP 9 04/24/2017 BUN 30 04/24/2017 CR 1.57 04/24/2017 GLU 164 04/24/2017 CA 8.2 04/24/2017 ALBUMIN 2.8 04/24/2017 MG 2.1 04/24/2017 TOTBILI 0.5 04/24/2017 , Enzymes: Lab Results Component Value Date AST 27 04/24/2017 ALT 6 04/24/2017 ALKPHOS 35 04/24/2017 , Cardiac markers: No results found for: TNI, CKMB, MYOGLB and Mg and PO4: Lab Results Component Value Date MG 2.1 04/24/2017 Brief Hospital Course: The patient was admitted and the following issues were addressed during this hospitalization: (with pertinent details). 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 WBC increasing, ANC 500 today. - Previously on anticoagulation with apixaban for Atrial fibrillation, will hold for now with thrombocytopenia FEN/Renal: - Monitor electrolytes, high goal replacement with h/o atrial fibrillation. - Close monitoring of fluid status - Monitor I/O and daily weights to assess for need for prn lasix. ID: Afebrile. - Presented with UTI and fever - Urine cx from [address] 04/23: + E.Coli resistant to ampicillin, Bactrim, Nitrofurantoin. Intermediate resistance to gent and Unasyn. Susceptible to ceftriaxone, zosyn, meropenem, cipro and aztreonam - Cefepime continues, had vancomycin and daptomycin on 04/24-04/25, discontinued, Cefepime discontinued 05/19 with ANC>500. - On prophylaxis with posaconazole (due to planned midostaurin) and acyclovir. Discontinued 05/19. GI: - No nausea, vomiting, has prn anti-emetics available - good PO intake. - Obese, BMT>40 Endo: - Has type II DM, on glimiperide has been discontinued on admission - Endocrinology consultation obtained and appreciate recommendations; insulin regimen per endo CVS: - H/o atrial fibrillation, rate controlled. 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 COUNTER TOP ASSEMBLER lasix on hold and giving as needed. - Mild moderate - Will hold COUNTER TOP ASSEMBLER apixaban with thrombocytopenia - Cardiology opinion appreciated, 2d Echo- normal EF 60%. : Chronic cystitis, gonzalez placed for urinary retention, d/c 05/12. Voiding without difficulty Pulm: Sleep apnea on oxygen at night. Derm: Facial hyperpigmentation on the right side of face. Derm to evaluate. Benign lesions, recommended topical tx only Psych/Social: - On alprazolam for anxiety, currently continued at low dose - Lives in [facility], , currently on disability, son lives in 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 Date: 05/17/18 COMPREHENSIVE METABOLIC PANEL Standing Status: Future Standing Exp. Date: 05/17/18 MAGNESIUM Standing Status: Future Standing Exp. Date: 05/17/18 Other Diet Neutropenic Diet If you have questions about your diet after you go home, you can call a dietitian at [phone]. Activity as Tolerated It is important to [...] to return to your normal activity level. Report These Signs and Symptoms Please contact your doctor if you have any of the following symptoms: temperature higher than 100.5 degrees F, uncontrolled pain, persistent nausea and/or vomiting, difficulty breathing, chest pain, severe abdominal pain, headache, unable to urinate or unable to have bowel movement Questions About Your Stay For questions or concerns regarding your hospital stay. Call [phone] Discharging attending physician: MAXWELL CLARKE [[id number]] PICC Line Penitentiary Care Instructions: *Catheter must be covered with plastic wrap before showering. Never submerge the catheter in a bathtub, hot tub, or swimming pool. *The dressing and biopatch must be changed every 7 days or as needed if it becomes wet or soiled. The injection caps should be changed every 7 days. Please refer to your physician, clinic, or home health nurse for dressing or cap change instructions. Flush each lumen of catheter as instructed on discharge. Return Appointment Provider LACHO ELDRIDGE [[id number]] Location [facility] Appointment date: 05/21/2017 Appointment time: 7:30 AM Additional Discharge Instructions Wear mask to and from clinic. Avoid large crowds and practice good hand hygiene. Current Discharge Medication List START taking these medications Details blood sugar diagnostic (ONETOUCH VERIO) test strip Use 1 strip as directed before meals and at bedtime. Qty: 300 strip, Refills: 3 PRESCRIPTION TYPE: Normal blood-glucose meter (ONETOUCH VERIO FLEX) kit Use 1 strip as directed three times daily. Diagnosis Code: Qty: 1 kit, Refills: 3 PRESCRIPTION TYPE: Normal lancets (ONE TOUCH DELICA) MIS Use 1 each as directed four times daily as needed. Diag: Qty: 300 each, Refills: 11 PRESCRIPTION TYPE: Normal midostaurin (RYDAPT) 25 mg capsule Take 2 capsules (50mg) by mouth twice daily with meals on Days 8-21 of each chemotherapy cycle. Qty: 56 capsule, Refills: 0 PRESCRIPTION TYPE: Normal Associated Diagnoses: Acute myeloid leukemia not having achieved remission (HCC ) prochlorperazine maleate (COMPAZINE) 10 mg tablet Take 1 tablet by mouth every 6 hours as needed for Nausea or Vomiting. Qty: 30 tablet, Refills: 2 PRESCRIPTION TYPE: Normal sodium chloride PF 0.9% 0.9 % syringe Inject 10 mL to area(s) as directed daily. Qty: 30 Syringe, Refills: 3 PRESCRIPTION TYPE: Normal CONTINUE these medications which have been CHANGED or REFILLED Details apixaban (ELIQUIS) 5 mg tablet ON HOLD UNTIL COUNT RECOVERY PRESCRIPTION TYPE: No Print atenolol (TENORMIN) 50 mg tablet Take 0.5 tablets by mouth daily. PRESCRIPTION TYPE: No Print Comments: Do not fill CONTINUE these medications which have NOT CHANGED Details ALPRAZolam (XANAX) 1 mg tablet Take 1 mg by mouth three times daily as needed for Anxiety. PRESCRIPTION TYPE: Historical Med diltiazem CD (CARDIZEM CD) 240 mg capsule Take 240 mg by mouth daily. PRESCRIPTION TYPE: Historical Med ergocalciferol (VITAMIN D-2) 50,000 unit capsule Take 1 capsule by mouth every 7 days. PRESCRIPTION TYPE: Historical Med glimepiride (AMARYL) 4 mg tablet Take 4 mg by mouth daily with breakfast. PRESCRIPTION TYPE: Historical Med The following medications were removed from your list. This list includes medications discontinued this stay and those removed from your prior med list in our system allopurinol (ZYLOPRIM) 100 mg tablet allopurinol (ZYLOPRIM) 300 mg tablet ascorbic acid (VITAMIN C) 500 mg tablet CRANBERRY FRUIT EXTRACT (CRANBERRY EXTRACT PO) cyanocobalamin(+) (VITAMIN B-12) 500 mcg tablet furosemide (LASIX) 40 mg tablet magnesium oxide (MAG-OX) 400 mg tablet nitrofurantoin monohyd/m-cryst (MACROBID) 100 mg capsule oxybutynin XL (DITROPAN XL) 10 mg tablet potassium chloride SR (K-DUR) 10 mEq tablet Scheduled appointments: May 21, 2017 7:30 AM CDT (Arrive by 7:15 AM) New Patient with Lacho Eldridge MD [facility] - BMT Exam (--) [address] [facility] [id number] Pending items needing follow up: RTC 05/21 for labs and provider visit. Will need bone marrow biopsy next week. Signed: Tiffanie Tavarez, WOOD CARVING LATHE OPERATOR 05/19/2017 cc: Primary Care Physician: Jacquelin Atkinson Verified Referring physicians: Self, Referral Additional provider(s): ATTESTATION I personally performed the carrizales portions of the E/M visit, discussed case with Nurse Practitioner and concur with documentation of history, physical exam, assessment, and treatment plan unless otherwise noted. Maxwell Vince [phone] in this encounter Discharge Instructions * Patient Instructions - Tez Ling RN - 05/11/2017 8:29 AM CDT Interventional Radiology-Discharge Instructions Bone Marrow Aspiration Bone [...] other concerns related to the procedure, call [phone] from 7am-5pm, Wednesday-Wednesday. After-hours and weekends, call [phone] and ask for the Interventional Land Surveying Party Chief on-call. For procedures performed at the [facility], please call the Radiology dept. Wednesday-Wednesday 8-, . You or your caregiver should call 911 for any severe bleeding, dizziness, shortness of breath or loss of consciousness. INTERVENTIONAL RADIOLOGY DISCHARGE INSTRUCTIONS LUMBAR PUNCTURE A lumbar puncture is a procedure in which a needle is carefully inserted into the spinal canal in the lower portion of your back (the lumbar area). A small amount of cerebrospinal fluid (CSF) is collected followed by removal of the needle. CSF is a clear fluid that surrounds the brain and spinal cord and helps protect them from injury. The collected fluid is then used for specific lab tests ordered by your physician. In some instances, the pressure of the CSF may also be measured during the procedure. POST-PROCEDURE ACTIVITY: A responsible adult must drive you home. If you receive sedation or anesthesia for the procedure, you should not drive or operate heavy machinery or do anything that requires concentration for at least 24 hours after receiving sedation or anesthesia. It is recommended that a responsible adult be with you until morning. You should rest for 6-8 hours after the procedure with your head at about a 30-45?angle. If you develop a spinal headache, lie flat for 6-8 hours. A spinal headache is caused by a CSF leak; you would typically have greater pain when you are up and less pain when lying flat. You may plan to resume normal activity tomorrow. POST-PROCEDURE SITE CARE: You will have a small bandage over the site. Keep this dry. You may remove it in 24 hours. You may shower in 24 hours, after removing the bandage. Do not submerge the site underwater for several days until fully healed (no tub bath, swimming/hot tub, etc.) Be sure your hands are clean when touching near the site. Do not use ointments, creams or powders on the puncture site. DIET/MEDICATIONS: You may resume your previous diet after the procedure. If you receive sedation or narcotic pain medications, avoid any foods or beverages containing alcohol for at least 24 hours after the procedure. Please see the Medication Reconciliation sheet for instructions regarding resuming your home medications. Keep well-hydrated; you are encouraged to drink plenty of caffeinated fluids as this can help to prevent a spinal headache. CALL THE DOCTOR IF: Bright red blood has soaked the bandage. You have pain not relieved by medication. Some soreness at the site is to be expected. You have signs of infection such as: Chills, body aches, fever greater than 101F, redness, swelling or warmth at the puncture site. You have an uncontrolled headache. For problems or concerns related to the procedure, call [phone] from 7am- 5pm, Wednesday-Wednesday. After-hours and weekends, please call [phone] and ask for the Interventional Land Surveying Party Chief on-call. For procedures performed at the [facility], please call the Radiology dept. [phone], Wednesday-Wednesday, 8am-5pm in this encounter Medications at Time of Discharge Medication Sig. Disp. Refills Start Date End Date ALPRAZolam (XANAX) 1 mg Take 1 mg by mouth twice tablet daily. atenolol (TENORMIN) 50 mg Take 0.5 tablets by mouth 05/19/2017 tablet daily. blood sugar diagnostic Use 1 strip as directed 300 strip 3 05/19/2017 (ONETOUCH ULTRA TEST) before meals and at test strip bedtime. blood sugar diagnostic Use 1 strip as directed 300 strip 3 05/19/2017 (ONETOUCH VERIO) test before meals and at strip bedtime. diltiazem CD (CARDIZEM Take 240 mg by mouth CD) 240 mg capsule daily. glimepiride (AMARYL) 4 mg Take 4 mg by mouth daily tablet with breakfast. lancets (ONE TOUCH Use 1 each as directed 300 each 11 05/19/2017 DELICA) MISC four times daily as needed. Diag: midostaurin (RYDAPT) 25 Take 2 capsules (50mg) by 56 capsule 0 2016 mg capsuleIndications: mouth twice daily with Acute myeloid leukemia meals on Days 8-21 of not having achieved each chemotherapy cycle. remission (HCC) ONETOUCH VERIO IQ METER Use as directed three 1 each 3 05/19/2017 kit times daily. prochlorperazine maleate Take 1 tablet by mouth 30 tablet 2 2016 (COMPAZINE) 10 mg tablet every 6 hours as needed for Nausea or Vomiting. apixaban (ELIQUIS) 5 mg ON HOLD UNTIL COUNT 05/19/2017 06/06/2017 tablet RECOVERY ergocalciferol (VITAMIN Take 1 capsule by mouth 06/03/2017 D-2) 50,000 unit capsule every 7 days. sodium chloride PF 0.9% Inject 10 mL to area(s) 300 mL 3 05/19/2017 06/06/2017 0.9 % syringe as directed daily. as of this encounter Progress Notes * Carolynn López RN - 05/19/2017 2:10 PM CDT D/c instructions reviewed with pt and at bedside, all questions answered at this time. PICC flush education provided, dressing changed. Pt transported off unit by wheelchair with staff assistance to personal vehicle. * Carolynn López RN - 05/19/2017 2:10 PM CDT Shift: Day NEWS Score: 0 Pain: no reports this shift Nutrition: neut ADA, pt eating and drinking very well GI/: LBM 05/18 (no diarrhea), voiding adequate dark yellow urine Activity: SBA + walker, pt up and down to commode Family: at bedside for d/c instructions, supportive Last Shower: 05/18 (pt will shower at home) * Veena Beck OT - 05/19/2017 11:21 AM CDT OCCUPATIONAL THERAPY NOTE Patient planning to discharge home with family assist this date. OT met with patient to discuss any discharge needs/concerns - patient has all necessary equipment at home to assist in ADLs and functional transfers. Therapist: MARLENE Butler/Clayton [id number] Date: 05/19/2017 * Asher Sullivan MD - 05/19/2017 9:39 AM CDT Formatting of this note may be different from the original. Endocrinology progress note Today's Date: 05/19/2017 Admission Date: 04/24/2017 Reason for this consultation: Assessment: Type 2 diabetes mellitus: A1c 5.2 04/2017 COUNTER TOP ASSEMBLER regimen: Glimepiride 4 mg daily Hypoglycemic episodes on this regimen: Unknown Follows up with for diabetes management: PCP Diabetic-complications assessment: Retinopathy: Last eye exam 2 years back, no retinopathy Peripheral neuropathy: Yes Autonomic neuropathy: No Nephropathy: Yes Macrovascular complications: No Risk factor assessment: Last lipid profile -none in chart On ACEi/ARB?:No On Statin?: No Recurrent hypoglycemia: Last dose of glimepiride 4 mg was on 04/23 in the morning, at home. Hypoglycemia is recurrent in spite of D5 normal saline drip. Recurrent UTI Acute leukemia A. fib CKD stage III Recommendations: - Blood sugar control at goal and getting discharged today - Will plan to continue with insulin while she is admitted however on discharge no Insulin and recommend Amaryl 4mg daily - For now continue lantus 12 units daily, novolog 7 units with meals , [facility] while in the hospital - She does not agree with us regarding restarting metformin concerning for her CKD. Now her Cr is normal and GFR > 60. 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 - OK to discharge home with glimepiride 4 mg daily only. She will follow with PCP Discussed with Dr. Sullivan ATTESTATION I personally performed the carrizales portions of the E/M visit, discussed case with resident and concur with resident documentation of history, physical exam, assessment, and treatment plan unless otherwise noted. Staff name: Asher Sullivan MD Date: 05/19/2017 History of Present Illness Giselle Moraes is a 56 y.o. female with past medical history of A. fib, type 2 diabetes, CKD stage III, UTI, anxiety was admitted for suspicion for acute leukemia. Endocrinology was consulted for recurrent hypoglycemia. Eating well.No other complaitns Denies nausea , vomitng , abdominal pain. States going home today Estimated Creatinine Clearance: 89.1 mL/min (based on Cr of 0.93). 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 No pertinent family history. Allergies Allergies Allergen Reactions Ciprofloxacin SEE COMMENTS Per Nephrology doctors. Levofloxacin SEE COMMENTS Per nephrology doctors. Nsaids (Non-Steroidal Anti-Inflammatory Drug) SEE COMMENTS Per nephrology doctors. Bactrim [Sulfamethoxazole-Trimethoprim] SEE COMMENTS Per Nephrology Doctors. Contrast Dye Iv, Iodine Containing [Iodinated Contrast- Oral And Iv Dye] SEE COMMENTS Per nephrology doctors. Review of Systems No Nausea, vomiting , abdominal pain , fevers Medications Scheduled Meds: acyclovir (ZOVIRAX) tablet 800 mg 800 mg Oral BID atenolol (TENORMIN) tablet 25 mg 25 mg Oral QDAY cefepime (MAXIPIME) 2 g in dextrose 5% (D5W) IVPB 2 g Intravenous Q8H* diltiazem CD (cardIZEM CD) capsule 240 mg 240 mg Oral QDAY insulin aspart (NOVOLOG FLEXPEN) injection PEN 0-14 Units 0-14 Units Subcutaneous ACHS insulin aspart (NOVOLOG FLEXPEN) injection PEN 7 Units 7 Units Subcutaneous TID w/ meals insulin glargine (LANTUS SOLOSTAR) injection PEN 12 Units 12 Units Subcutaneous QDAY(12) posaconazole EC (NOXAFIL) tablet 300 mg 300 mg Oral QDAY w/breakfast Continuous Infusions: PRN and Respiratory Meds:acetaminophen Q6H PRN, ALPRAZolam BID PRN, alteplase PRN (Compliance Representative from Rx), hydrOXYzine TID PRN, loperamide PRN, LORazepam Q6H PRN, LORazepam injection Q6H PRN, magnesium sulfate 4 g/50 mL PRN, milk of magnesia ( CONC) Q6H PRN, polyethylene glycol 3350 QDAY PRN, potassium chloride PRN (Compliance Representative from Rx) OR potassium chloride SR PRN (Compliance Representative from Rx), saliva, synthetic PRN, senna BID PRN, sodium chloride 0.9% irrigation bottle PRN Physical Examination Vital Signs: Last Vital Signs: 24 Hour Range BP: 116/45 (05/19 802) Temp: 36.5 C (97.7 F) (05/19 802) Pulse: 59 (05/19 802) Respirations: 20 PER MINUTE (05/19 802) SpO2: 100 % (05/19 802) O2 Delivery: None (Room Air) (05/19 802) BP: (108-133)/(45-76) Temp: [36.4 C (97.6 F)-36.6 C (97.9 F)] Pulse: [59-109] Respirations: [18 PER MINUTE-20 PER MINUTE] SpO2: [98 %-100 %] O2 Delivery: None (Room Air) General appearance: alert, oriented, looking tired HENT: Dry oral mucosa, dried blood on lips Lungs: Breathing comfortably Heart: Regular rhythm, reg rate, with no murmur, rub, gallop Abdomen: soft, non-tender, non-distended, normoactive bowel sounds, Ext: No clubbing, cyanosis or edema Skin: no rashes/lesions Lab Review Point of Care Testing (Last 24 hours) Glucose: (!) 127 (05/19/17209) POC Glucose (Download): (!) 160 (05/19/17728) Recent Labs 05/17/1724605/18/1734405/19/17209 NA 143 142 143 K 3.8 3.5 3.4* CL 111* 114* 111* CO2 24 22 26 GAP 8 6 6 BUN 36* 33* 32* CR 1.01* 0.90 0.93 GLU 126* 119* 127* CA 8.8 7.9* 9.1 ALBUMIN 2.8* 2.4* 2.6* MG 2.2 1.7 2.1 Recent Labs 05/17/1724605/18/1734405/19/17209 WBC 1.0* 1.1* 1.4* HGB 7.6* 6.6* 7.4* HCT 22.6* 18.7* 20.6* PLTCT 17* 17* 27* AST 9 7 6* ALT 9 9 6* ALKPHOS 182* 173* 186* Estimated Creatinine Clearance: 89.1 mL/min (based on Cr of 0.93). Vitals: 05/16/17 0412 05/17/175 05/18/17401 Weight: 125.6 kg (276 lb 12.8 oz) 117.5 kg (259 lb) 121.6 kg (268 lb) Thyroid Studies No results found for: TSH, FREET4, FREEINDEX No results found for: FREET3, Q9BABUSGM, THYBINDGLB Khoi Lutz, Endocrine fellow Pager [phone] * Maxwell Clarke MD - 05/19/2017 8:42 AM CDT Formatting of this note may be different from the original. 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 WBC increasing, ANC 500 today. - Previously on anticoagulation with apixaban for Atrial fibrillation, will hold for now with thrombocytopenia - Anticoagulation with lovenox for DVT ppx contraindicated due to thrombocytopenia, SCD's when on bed FEN/Renal: - Monitor electrolytes, high goal replacement with h/o atrial fibrillation. Mg replacements today - Close monitoring of fluid status - Monitor I/O and daily weights to assess for need for prn lasix. ID: Afebrile. - Presented with UTI and fever - Urine cx from [facility] 04/23: + E.Coli resistant to ampicillin, Bactrim, Nitrofurantoin. Intermediate resistance to gent and Unasyn. Susceptible to ceftriaxone, zosyn, meropenem, cipro and aztreonam - Cefepime continues, had vancomycin and daptomycin on 04/24-04/25, discontinued, restart vanco if febrile. Will plan to continue until neutropenia resolves - On prophylaxis with posaconazole (due to planned midostaurin) and acyclovir. GI: - No nausea, vomiting, has prn anti-emetics available - good PO intake. - Obese, BMT>40 Endo: - Has type II DM, on glimiperide has been discontinued on admission - Endocrinology consultation obtained and appreciate recommendations; insulin regimen per endo CVS: - H/o atrial fibrillation, rate controlled. 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 COUNTER [employer] ASSEM[employer]ER lasix on hold and giving as needed. - Mild moderate - Will hold COUNTER TOP ASSEMBLER apixaban with thrombocytopenia - Cardiology opinion appreciated, 2d Echo- normal EF 60%. : Chronic cystitis, gonzalez placed for urinary retention, d/c 05/12. Voiding without difficulty Pulm: Sleep apnea on oxygen at night. Derm: Facial hyperpigmentation on the right side of face. Derm to evaluate. Benign lesions, recommended topical tx only Psych/Social: - On alprazolam for anxiety, currently continued at low dose - Lives in [facility], , currently on disability, son lives in [facility] PT/OT: PT/OT following Subjective: Giselle Moraes is a 56 y.o. female. Pt feels well. ready for discharge today. Review of Systems: Constitutional: + fatigue, anorexia HEENT: Denies nosebleeds, mouth sores. Respiratory: mild SOB with moving around. 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 Psych: + anxiety Objective: Medications: Scheduled Meds: acyclovir (ZOVIRAX) tablet 800 mg 800 mg Oral BID atenolol (TENORMIN) tablet 25 mg 25 mg Oral QDAY cefepime (MAXIPIME) 2 g in dextrose 5% (D5W) IVPB 2 g Intravenous Q8H* diltiazem CD (cardIZEM CD) capsule 240 mg 240 mg Oral QDAY insulin aspart (NOVOLOG FLEXPEN) injection PEN 0-14 Units 0-14 Units Subcutaneous ACHS insulin aspart (NOVOLOG FLEXPEN) injection PEN 7 Units 7 Units Subcutaneous TID w/ meals insulin glargine (LANTUS SOLOSTAR) injection PEN 12 Units 12 Units Subcutaneous QDAY(12) posaconazole EC (NOXAFIL) tablet 300 mg 300 mg Oral QDAY w/breakfast Continuous Infusions: PRN and Respiratory Meds:acetaminophen Q6H PRN, ALPRAZolam BID PRN, alteplase PRN (Compliance Representative from Rx), hydrOXYzine TID PRN, loperamide PRN, LORazepam Q6H PRN, LORazepam injection Q6H PRN, magnesium sulfate 4 g/50 mL PRN, milk of magnesia ( CONC) Q6H PRN, polyethylene glycol 3350 QDAY PRN, potassium chloride PRN (Compliance Representative from Rx) OR potassium chloride SR PRN (Compliance Representative from Rx), saliva, synthetic PRN, senna BID PRN, sodium chloride 0.9% irrigation bottle PRN Vital Signs: Last Filed Vital Signs: 24 Hour Range BP: 116/45 (05/19 802) Temp: 36.5 C (97.7 F) (05/19 802) Pulse: 59 (05/19 802) Respirations: 20 PER MINUTE (05/19 802) SpO2: 100 % (05/19 802) O2 Delivery: None (Room Air) (05/19 802) BP: (108-133)/(45-76) Temp: [36.4 C (97.6 F)-36.6 C (97.9 F)] Pulse: [59-109] Respirations: [18 PER MINUTE-20 PER MINUTE] SpO2: [98 %-100 %] O2 Delivery: None (Room Air) Intensity Pain Scale 0-10 (Pain 1): 0 (05/19/17 0730) Vitals: 05/16/17 0412 05/17/17 0245 05/18/17 0402 Weight: 125.6 kg (276 lb 12.8 oz) 117.5 kg (259 lb) 121.6 kg (268 lb) Intake/Output Summary: (Last 24 hours) Intake/Output Summary (Last 24 hours) at 05/19/17 0842 Last data filed at 05/19/17 0813 Gross per 24 hour Intake 1973.42 ml Output 2800 ml Net -826.58 ml Physical Exam: Performance Status (Karnofsky): 60% Requires some assistance, but able to care for most of needs VS reviewed General: Alert, cooperative, no distress, appears stated age/ Morbidly obese Head: Normocephalic, without obvious abnormality, atraumatic Eyes:Anicteric sclera OP: No erythema or ulcers Lungs: CTAB no rales or wheezes Heart: Irregular rhythm Abdomen: Soft, non-tender. Bowel sounds normal. No masses. No organomegaly. Extremities: Trace edema to feet Skin: Facial hyperpigmentation on right cheek, long standing per patient. + buising and petechiae Neurologic: Generalized weakness, limited mobility Lab Review: Results for orders placed or performed during the hospital encounter of (from the past 48 hour(s)) POC GLUCOSE Collection Time: 05/17/17 12:16 PM # # Low-High Glucose, POC 156 (H) 70 - 100 MG/DL POC GLUCOSE Collection Time: 05/17/17 4:52 PM # # Low-High Glucose, POC 118 (H) 70 - 100 MG/DL POC GLUCOSE Collection Time: 05/17/17 9:01 PM # # Low-High Glucose, POC 127 (H) 70 - 100 MG/DL COMPREHENSIVE METABOLIC PANEL Collection Time: 05/18/17 3:45 AM # # Low-High Sodium 142 137 - 147 MMOL/L Potassium 3.5 3.5 - 5.1 MMOL/L Chloride 114 (H) 98 - 110 MMOL/L Glucose 119 (H) 70 - 100 MG/DL Blood Urea Nitrogen 33 (H) 7 - 25 MG/DL Creatinine 0.90 0.4 - 1.00 MG/DL Calcium 7.9 (L) 8.5 - 10.6 MG/DL Total Protein 5.3 (L) 6.0 - 8.0 G/DL Total Bilirubin 0.7 0.3 - 1.2 MG/DL Albumin 2.4 (L) 3.5 - 5.0 G/DL Alk Phosphatase 173 (H) 25 - 110 U/L AST (SGOT) 7 7 - 40 U/L CO2 22 21 - 30 MMOL/L ALT (SGPT) 9 7 - 56 U/L Anion Gap 6 3 - 12 eGFR Non >60 >60 mL/min eGFR >60 >60 mL/min MAGNESIUM Collection Time: 05/18/17 3:45 AM # # Low-High Magnesium 1.7 1.6 - 2.6 mg/dL CBC AND DIFF Collection Time: 05/18/17 3:45 AM # # Low-High White Blood Cells 1.1 (L) 4.5 - 11.0 K/UL RBC 2.22 (L) 4.0 - 5.0 M/UL Hemoglobin 6.6 (L) 12.0 - 15.0 GM/DL Hematocrit 18.7 (L) 36 - 45 % MCV 84.0 80 - 100 FL MCH 29.7 26 - 34 PG MCHC 35.4 32.0 - 36.0 G/DL RDW 15.5 (H) 11 - 15 % Platelet Count 17 (LL) 150 - 400 K/UL MPV 8.9 7 - 11 FL Neutrophils 35 (L) 41 - 77 % Lymphocytes 56 (H) 24 - 44 % Monocytes 8 4 - 12 % Eosinophils 0 0 - 5 % Basophils 1 0 - 2 % Absolute Neutrophil Count 0.40 (L) 1.8 - 7.0 K/UL Absolute Lymph Count 0.60 (L) 1.0 - 4.8 K/UL Absolute Monocyte Count 0.10 0 - 0.80 K/UL Absolute Eosinophil Count 0.00 0 - 0.45 K/UL Absolute Basophil Count 0.00 0 - 0.20 K/UL TYPE & CROSSMATCH Collection Time: 05/18/17 3:45 AM # # Low-High Units Ordered 1 Crossmatch Expires 05/21/2017 Record Check FOUND ABO/RH(D) A POS Antibody Screen NEG Electronic Crossmatch YES Unit Number [id number] Blood Component Type RBC,ADSOL,LEUKO REDUCED,IRRADIATED Unit Division 0 Status OF Unit TRANSFUSED Transfusion Status OK TO TRANSFUSE Crossmatch Result COMPATIBLE,ELECTRONIC POC GLUCOSE Collection Time: 05/18/17 7:59 AM # # Low-High Glucose, POC 148 (H) 70 - 100 MG/DL POC GLUCOSE Collection Time: 05/18/17 11:43 AM # # Low-High Glucose, POC 108 (H) 70 - 100 MG/DL POC GLUCOSE Collection Time: 05/18/17 4:50 PM # # Low-High Glucose, POC 113 (H) 70 - 100 MG/DL POC GLUCOSE Collection Time: 05/18/17 8:30 PM # # Low-High Glucose, POC 125 (H) 70 - 100 MG/DL COMPREHENSIVE METABOLIC PANEL Collection Time: 05/19/17 2:10 AM # # Low-High Sodium 143 137 - 147 MMOL/L Potassium 3.4 (L) 3.5 - 5.1 MMOL/L Chloride 111 (H) 98 - 110 MMOL/L Glucose 127 (H) 70 - 100 MG/DL Blood Urea Nitrogen 32 (H) 7 - 25 MG/DL Creatinine 0.93 0.4 - 1.00 MG/DL Calcium 9.1 8.5 - 10.6 MG/DL Total Protein 5.7 (L) 6.0 - 8.0 G/DL Total Bilirubin 0.8 0.3 - 1.2 MG/DL Albumin 2.6 (L) 3.5 - 5.0 G/DL Alk Phosphatase 186 (H) 25 - 110 U/L AST (SGOT) 6 (L) 7 - 40 U/L CO2 26 21 - 30 MMOL/L ALT (SGPT) 6 (L) 7 - 56 U/L Anion Gap 6 3 - 12 eGFR Non >60 >60 mL/min eGFR >60 >60 mL/min MAGNESIUM Collection Time: 05/19/17 2:10 AM # # Low-High Magnesium 2.1 1.6 - 2.6 mg/dL CBC AND DIFF Collection Time: 05/19/17 2:10 AM # # Low-High White Blood Cells 1.4 (L) 4.5 - 11.0 K/UL RBC 2.48 (L) 4.0 - 5.0 M/UL Hemoglobin 7.4 (L) 12.0 - 15.0 GM/DL Hematocrit 20.6 (L) 36 - 45 % MCV 83.3 80 - 100 FL MCH 29.7 26 - 34 PG MCHC 35.7 32.0 - 36.0 G/DL RDW 15.4 (H) 11 - 15 % Platelet Count 27 (L) 150 - 400 K/UL MPV 8.7 7 - 11 FL Neutrophils 34 (L) 41 - 77 % Lymphocytes 53 (H) 24 - 44 % Monocytes 13 (H) 4 - 12 % Eosinophils 0 0 - 5 % Basophils 0 0 - 2 % Absolute Neutrophil Count 0.50 (L) 1.8 - 7.0 K/UL Absolute Lymph Count 0.70 (L) 1.0 - 4.8 K/UL Absolute Monocyte Count 0.20 0 - 0.80 K/UL Absolute Eosinophil Count 0.00 0 - 0.45 K/UL Absolute Basophil Count 0.00 0 - 0.20 K/UL POC GLUCOSE Collection Time: 05/19/17 7:29 AM # # Low-High Glucose, POC 160 (H) 70 - 100 MG/DL Radiology Review: No pertinent radiology. MAXWELL CLARKE MD * Cathleen Davies, RN - 05/19/2017 7:04 AM CDT Shift: 05/18 shift superintendent NEWS Score: 1932: 2 (HR, BP) 2317: 0 0157: 0 Pain: No reports of pain this shift. Nutrition: Neutropenic/Diabetic diet. No reports of n/v this shift. GI/: Adequate amounts of clear, yellow urine this shift. Last BM 05/18. No pain/burning on urination. Activity: Stand by assist. No reports of dizziness this shift. Family: No family at bedside this shift. Last Shower: 05/18 New Events or Follow-up: K 3.4, replacing. ANC 500, DC today. * Jaylin Orantes, RN - 05/18/2017 6:35 PM CDT Shift: 05/18 [id number] NEWS Score: 0945: 0 1145: 0 1510: 0 Pain: Denies Nutrition: Neutropenic/ Diabetic diet. Good appetite. Eating 100% of meals. GI/: Voiding adequately per bedside commode. LBM 05/18 Activity: Up with stand by assist. Needs motivation for physical activity. Sat up in chair for meals. Worked on stairs with physical therapy Family: None present Last Shower: 05/17 New Events or Follow-up: Continue to monitor for count recovery. Possible discharge tomorrow 05/19 if ANC > 500. Received IV Lasix x1. * Deirdre Smith, PIPO - 05/18/2017 5:45 PM CDT CLINICAL NUTRITION Clinical Nutrition Follow-Up Summary Nutrition Assessment of Patient: Malnutrition Assessment: Does not meet criteria Current Oral Intake: Marginally Adequate, Inadequate Estimated Calorie Needs: 6840-1709 (25-30kcal/kg desired wt 72kg) Estimated Protein Needs: 86-101 (1.2-1.4g/kg DBW) Oral Diet Order: Diabetic 1070-1876 Kcal/day (60 g Carb/meal, 30 g Carb/HS snack ) 56 yr old female with h/o permanent AF, DM, CKD, nephrolithiasis obesity admitted with new acute leukemia. Currently day 21 of 7+3. Pt with h/o DM, A1C 5.2 this admit, however likely falsely low given low hemoglobin. FSBS ranging from 128-148 in the last 24hrs. Insulin and appropriate diabetic diet on board. Noted plan to d/c with glyburide. No pressure injuries noted. This RD has discussed consistent carb, neutropenic diet, and nutrition during cancer treatment with patient throughout admit. 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 This RD de-emphasized renal diet restrictions unless indicated by lab values and discussed focus on safe food handling, consistent carb intake with 60g carb with 3 meals daily, and adequate protein intakes. Simple carb counting handout provided. Noted patient also educated by diabetes RN today. Patient typically eats 2 larger meals/day but has been making an effort to eat 3 more consistent meals per day meals/day. She denies any current gi complaints or barriers to eating, but reports she tends to focus on bland low fiber [id number] foods. Noted weight has ranges from 358# to today's wt of 268#, likely partially related to fluid changes. Recommendation: Continue current diet as ordered Intervention / Plan: EDU as above Will monitor PO diet tolerance/adequacy, labs, weight trends, i/os Nutrition Diagnosis: Nutrition Diagnosis: Inadequate protein-energy intake (improved) Etiology: skipping meal, decreased appetite Signs & Symptoms: patient report Goals: Patient to consume >75% of meals Time Frame: Throughout Stay Status: Met;Ongoing Deirdre Smith MS, RD, LD *[id number] * Veena Beck, OT - 05/18/2017 2:46 PM CDT OCCUPATIONAL THERAPY PROGRESS NOTE Admitting Diagnosis: AML Leukocytosis Patient seen x1 this date. Documentation reflects all daily treatment sessions. Mobility Progressive Mobility Level: Walk in room Distance Walked (feet): 10 ft Level of Assistance: Stand by assistance Assistive Device: Walker Time Tolerated: 11-30 minutes Activity Limited By: No limitations Subjective Pertinent Dx per Physician: 56 year old female with new diagnosis of AML. Patient admitted for start of chemotherapy. Patient is obese with bariatric bed in place. Precautions: Falls;Isolation (droplet) Pain / Complaints: Patient has no c/o pain Objective Psychosocial Status: Willing and Cooperative to Participate Persons Present: RN (at beginning of session) Home Living Type of Home: House Home Layout: One Level;Stairs to Enter w/ Rails Bathroom Shower / Tub: Walk-in Shower Bathroom Toilet: Standard Bathroom Equipment: Built-in Seat in Shower;Shower Chair;Commode;Grab Bars in Shower Bathroom Accessibility: Accessible via Walker Home Equipment: Walker;Commode;Grab Bars;Shower/Tub Bench Prior Function Level Of [place]: Needed assistance with ADLs;Needed assistance with homemaking;Independent with ADLs and functional transfers Lives With: Spouse Receives Help From: Spouse ADL's Where Assessed: Chair;Supine, Bed (commode) Grooming Assist: Stand By Assist Grooming Deficits: Wash/Dry Hands (hand medical collections representative) Toileting Assist: Stand By Assist Toileting Deficits: Supervision/Safety;Bedside Commode;Perineal Hygiene Functional Transfer Assist: Stand By Assist Functional Transfer Deficits: Supervision/Safety;Commode Transfer (w/ assistive device) Comment: Pt sitting edge of bed with RN at beginning of session. Pt able to sit< >stand w/ stand by assist. Pt able to ambulate to commode and perform hygiene tasks standing up w/ no loss of balance. Pt able to complete stand>supine with stand by assist. Pt supine at end of session with all needs within reach and bed alarm set. Activity Tolerance Endurance: 2/5 Tolerates 10-20 Minutes Exercise w/Multiple Rests Sitting Balance: 5/5 Moves/Returns Trunkal Midpoint in All Planes > 2 Inches Education Persons Educated: Patient Teaching Methods: Verbal Instruction Patient Response: Verbalized and Demo Understanding Topics: Role of OT, Goals for Therapy;Home safety;Energy Conservation;ADL Compensatory Techniques Goal Formulation: With Patient Comments: Pt able to engage in conversation this date regarding equipment and assistance needs upon discharging home. Pt reports she has all necessary equipment and will be available to assist w/ LE dressing and shower transfer as needed. Assessment Assessment: Decreased ADL Status;Decreased Endurance;Decreased Self-Care Trans; Decreased High-Level ADLs Prognosis: Good;w/ Family Goal Formulation: Patient AM-PAC 6 Clicks Daily Activity Inpatient Putting on and taking off regular lower body clothes?: A Lot Bathing (Including washing, rinsing, drying): A Little Toileting, which includes using toilet, bedpan, or urinal: None Putting on and taking off regular upper body clothing: None Taking care of personal grooming such as brushing teeth: None Eating meals?: None Daily Activity Raw Score: 21 Standardized (t-scale) score: 44.27 CMS 0-100% Score: 32.79 CMS G Code Modifier: CJ Plan Treatment Interventions: ADL Retraining;Functional Transfer Training;Endurance Training;Fine Motor Coordination Activities;Compensatory Technique Education OT Frequency: 5x/week Plan for next visit: home exercise program Further Evaluation Goals Pt Will Tolerate Further ADL Evaluation: w/in1-2 sessions, Met ADL Goals Patient Will Perform Grooming: w/ Stand By Assist Patient Will Perform LE Dressing: At Edge of Bed, Standing at Edge of Bed, w/ Minimum Assist Functional Transfer Goals Pt Will Perform All Functional Transfers: w/ Stand By Assist Arm Goals Pt Will Perform AROM: B UE, 2 Sets, 10 Reps, w/ Good Activity Tolerance Discharge Recommendations: Home with family assist Equipment Recommendations: Patient owns necessary equipment Therapist: Veena Beck OTR/[place] [id number] Date: 05/18/2017 * Asher Sullivan MD - 05/18/2017 12:25 PM CDT Formatting of this note may be different from the original. 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 Hypoglycemia is recurrent in spite of D5 normal saline drip. Recurrent UTI Acute leukemia A. fib CKD stage III Recommendations: - Hypoglycemia has resolved. - well-controlled DM - continue lantus 12 units daily - continue novolog 7 units with meals - continue [facility] - CDE consulted for home glucose monitor and DM education. - She does not agree with us regarding restarting metformin concerning for her CKD. Now her Cr is normal and GFR > 60. 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 - OK to discharge home with glimepiride 4 mg daily only. She will follow with PCP We will continue to follow discussed with Dr. Sullivan ATTESTATION I personally performed the carrizales portions of the E/M visit, discussed case with resident and concur with resident documentation of history, physical exam, assessment, and treatment plan unless otherwise noted. Staff name: Asher Sullivan MD Date: 05/18/2017 History of Present Illness Giselle Moraes is a 56 y.o. female with past medical history of A. fib, type 2 diabetes, CKD stage III, UTI, anxiety was admitted for suspicion for acute leukemia. Endocrinology was consulted for recurrent hypoglycemia. Patient is very happy that her ANC is 400 today CDE at bedside. Discussed plan with her Eating well. No other complaitns Denies nausea , vomitng , abdominal pain Estimated Creatinine Clearance: 92.1 mL/min (based on Cr of 0.9). 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 No pertinent family history. Allergies Allergies Allergen Reactions Ciprofloxacin SEE COMMENTS Per Nephrology doctors. Levofloxacin SEE COMMENTS Per nephrology doctors. Nsaids (Non-Steroidal Anti-Inflammatory Drug) SEE COMMENTS Per nephrology doctors. Bactrim [Sulfamethoxazole-Trimethoprim] SEE COMMENTS Per Nephrology Doctors. Contrast Dye Iv, Iodine Containing [Iodinated Contrast- Oral And Iv Dye] SEE COMMENTS Per nephrology doctors. Review of Systems A comprehensive 14-point review of systems was negative with exception of fatigue Medications Scheduled Meds: acyclovir (ZOVIRAX) tablet 800 mg 800 mg Oral BID atenolol (TENORMIN) tablet 25 mg 25 mg Oral QDAY cefepime (MAXIPIME) 2 g in dextrose 5% (D5W) IVPB 2 g Intravenous Q8H* diltiazem CD (cardIZEM CD) capsule 240 mg 240 mg Oral QDAY insulin aspart (NOVOLOG FLEXPEN) injection PEN 0-14 Units 0-14 Units Subcutaneous ACHS insulin aspart (NOVOLOG FLEXPEN) injection PEN 7 Units 7 Units Subcutaneous TID w/ meals insulin glargine (LANTUS SOLOSTAR) injection PEN 12 Units 12 Units Subcutaneous QDAY(12) posaconazole EC (NOXAFIL) tablet 300 mg 300 mg Oral QDAY w/breakfast Continuous Infusions: PRN and Respiratory Meds:acetaminophen Q6H PRN, ALPRAZolam BID PRN, alteplase PRN (Compliance Representative from Rx), hydrOXYzine TID PRN, loperamide PRN, LORazepam Q6H PRN, LORazepam injection Q6H PRN, magnesium sulfate 4 g/50 mL PRN, milk of magnesia ( CONC) Q6H PRN, polyethylene glycol 3350 QDAY PRN, potassium chloride PRN (Compliance Representative from Rx) OR potassium chloride SR PRN (Compliance Representative from Rx), saliva, synthetic PRN, senna BID PRN, sodium chloride 0.9% irrigation bottle PRN Physical Examination Vital Signs: Last Vital Signs: 24 Hour Range BP: 119/76 (05/18 1145) Temp: 36.6 C (97.9 F) (05/18 1145) Pulse: 89 (05/18 114) Respirations: 20 PER MINUTE (05/18 1145) SpO2: 99 % (05/18 114) O2 Delivery: None (Room Air) (05/18 1145) BP: (112-151)/(56-87) Temp: [36.3 C (97.4 F)-36.9 C (98.5 F)] Pulse: [68-93] Respirations: [18 PER MINUTE-20 PER MINUTE] SpO2: [99 %-100 %] O2 Delivery: None (Room Air) General appearance: alert, oriented, looking tired HENT: Dry oral mucosa, dried blood on lips Lungs: no wheezing, rhonchi, rales appreciated Heart: Regular rhythm, reg rate, with no murmur, rub, gallop Abdomen: soft, non-tender, non-distended, normoactive bowel sounds, Ext: No clubbing, cyanosis or edema Skin: no rashes/lesions Lab Review Point of Care Testing (Last 24 hours) Glucose: (!) 119 (05/18/17 0345) POC Glucose (Download): (!) 108 (05/18/17 1143) Recent Labs 05/16/17 0320 05/17/17 0247 05/18/17 0345 NA 143 143 142 K 4.1 3.8 3.5 CL 112* 111* 114* CO2 25 24 22 GAP 6 8 6 BUN 33* 36* 33* CR 0.85 1.01* 0.90 GLU 129* 126* 119* CA 8.6 8.8 7.9* ALBUMIN 2.5* 2.8* 2.4* MG 2.0 2.2 1.7 Recent Labs 05/16/17 0320 05/17/1724605/18/17 0345 WBC 0.5* 1.0* 1.1* HGB 7.1* 7.6* 6.6* HCT 20.2* 22.6* 18.7* PLTCT 13* 17* 17* AST 8 9 7 ALT 7 9 9 ALKPHOS 149* 182* 173* Estimated Creatinine Clearance: 92.1 mL/min (based on Cr of 0.9). Vitals: 05/16/17 0412 05/17/17 0245 05/18/17 0402 Weight: 125.6 kg (276 lb 12.8 oz) 117.5 kg (259 lb) 121.6 kg (268 lb) Thyroid Studies No results found for: TSH, FREET4, FREEINDEX No results found for: FREET3, [id number], THYBINDGLB Ari Collazo MD Endocrinology Fellow [id number] [phone] * Maxwell Clarke MD - 05/18/2017 11:05 AM CDT Formatting of this note may be different from the original. 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 WBC increasing, ANC 400 today. - Previously on anticoagulation with apixaban for Atrial fibrillation, will hold for now with thrombocytopenia - Anticoagulation with lovenox for DVT ppx contraindicated due to thrombocytopenia, SCD's when on bed FEN/Renal: - Monitor electrolytes, high goal replacement with h/o atrial fibrillation. Mg replacements today - Close monitoring of fluid status - Monitor I/O and daily weights to assess for need for prn lasix. ID: Afebrile. - Presented with UTI and fever - Urine cx from [facility] 04/23: + E.Coli resistant to ampicillin, Bactrim, Nitrofurantoin. Intermediate resistance to gent and Unasyn. Susceptible to ceftriaxone, zosyn, meropenem, cipro and aztreonam - Cefepime continues, had vancomycin and daptomycin on 04/24-04/25, discontinued, restart vanco if febrile. Will plan to continue until neutropenia resolves - On prophylaxis with posaconazole (due to planned midostaurin) and acyclovir. - for any neutropenic fever, will check chest CT as well given risk of pneumonia with poor resp effort due to weakness/obesity GI: - No nausea, vomiting, has prn anti-emetics available - good PO intake. - Obese, BMT>40 Endo: - Has type II DM, on glimiperide has been discontinued on admission - Endocrinology consultation obtained and appreciate recommendations; insulin regimen per endo CVS: - H/o atrial fibrillation, rate controlled. 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 [employer] lasix on hold and giving as needed. - Mild moderate - Will hold [employer]TER [employer] apixaban with thrombocytopenia - Cardiology opinion appreciated, 2d Echo- normal EF 60%. : Chronic cystitis, gonzalez placed for urinary retention, d/c 05/12. Voiding without difficulty Pulm: Sleep apnea on oxygen at night. Derm: Facial hyperpigmentation on the right side of face. Derm to evaluate. Benign lesions, recommended topical tx only Psych/Social: - On alprazolam for anxiety, currently continued at low dose - Lives in [facility], , currently on disability, son lives in [facility] - Need to schedule family meeting to discuss future treatment course, had first discussion with and family friend on 04/28. PT/OT: PT/OT following Subjective: Giselle Moraes is a 56 y.o. female. Pt feels well. Review of Systems: Constitutional: + fatigue, anorexia HEENT: Denies nosebleeds, mouth sores. Respiratory: mild SOB with moving around. 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 Psych: + anxiety Objective: Medications: Scheduled Meds: acyclovir (ZOVIRAX) tablet 800 mg 800 mg Oral BID atenolol (TENORMIN) tablet 25 mg 25 mg Oral QDAY cefepime (MAXIPIME) 2 g in dextrose 5% (D5W) IVPB 2 g Intravenous Q8H* diltiazem CD (cardIZEM CD) capsule 240 mg 240 mg Oral QDAY insulin aspart (NOVOLOG FLEXPEN) injection PEN 0-14 Units 0-14 Units Subcutaneous ACHS insulin aspart (NOVOLOG FLEXPEN) injection PEN 7 Units 7 Units Subcutaneous TID w/ meals insulin glargine (LANTUS SOLOSTAR) injection PEN 12 Units 12 Units Subcutaneous QDAY(12) posaconazole EC (NOXAFIL) tablet 300 mg 300 mg Oral QDAY w/breakfast Continuous Infusions: PRN and Respiratory Meds:acetaminophen Q6H PRN, ALPRAZolam BID PRN, alteplase PRN (Compliance Representative from Rx), hydrOXYzine TID PRN, loperamide PRN, LORazepam Q6H PRN, LORazepam injection Q6H PRN, magnesium sulfate 4 g/50 mL PRN, milk of magnesia ( CONC) Q6H PRN, polyethylene glycol 3350 QDAY PRN, potassium chloride PRN (Compliance Representative from Rx) OR potassium chloride SR PRN (Compliance Representative from Rx), saliva, synthetic PRN, senna BID PRN, sodium chloride 0.9% irrigation bottle PRN Vital Signs: Last Filed Vital Signs: 24 Hour Range BP: 114/56 (05/18 945) Temp: 36.6 C (97.8 F) (05/18 945) Pulse: 74 (05/18 945) Respirations: 20 PER MINUTE (05/18 945) SpO2: 100 % (05/18 945) O2 Delivery: None (Room Air) (05/18 945) BP: (112-151)/(56-87) Temp: [36.3 C (97.4 F)-36.9 C (98.5 F)] Pulse: [68-93] Respirations: [18 PER MINUTE-20 PER MINUTE] SpO2: [99 %-100 %] O2 Delivery: None (Room Air) Intensity Pain Scale 0-10 (Pain 1): (not recorded) Vitals: 05/16/17 0412 05/17/17 0245 05/18/17 0402 Weight: 125.6 kg (276 lb 12.8 oz) 117.5 kg (259 lb) 121.6 kg (268 lb) Intake/Output Summary: (Last 24 hours) Intake/Output Summary (Last 24 hours) at 05/18/17 1105 Last data filed at 05/18/17 1048 Gross per 24 hour Intake 2082.42 ml Output 1550 ml Net 532.42 ml Physical Exam: Performance Status (Karnofsky): 60% Requires some assistance, but able to care for most of needs VS reviewed General: Alert, cooperative, no distress, appears stated age/ Morbidly obese Head: Normocephalic, without obvious abnormality, atraumatic Eyes:Anicteric sclera OP: No erythema or ulcers Lungs: CTAB no rales or wheezes Heart: Irregular rhythm Abdomen: Soft, non-tender. Bowel sounds normal. No masses. No organomegaly. Extremities: Trace edema to feet Skin: Facial hyperpigmentation on right cheek, long standing per patient. + buising and petechiae Neurologic: Generalized weakness, limited mobility Lab Review: Results for orders placed or performed during the hospital encounter of (from the past 48 hour(s)) POC GLUCOSE Collection Time: 05/16/17 11:42 AM # # Low-High Glucose, POC 154 (H) 70 - 100 MG/DL POC GLUCOSE Collection Time: 05/16/17 5:16 PM # # Low-High Glucose, POC 112 (H) 70 - 100 MG/DL POC GLUCOSE Collection Time: 05/16/17 8:58 PM # # Low-High Glucose, POC 136 (H) 70 - 100 MG/DL POC GLUCOSE Collection Time: 05/17/17 2:45 AM # # Low-High Glucose, POC 131 (H) 70 - 100 MG/DL COMPREHENSIVE METABOLIC PANEL Collection Time: 05/17/17 2:47 AM # # Low-High Sodium 143 137 - 147 MMOL/L Potassium 3.8 3.5 - 5.1 MMOL/L Chloride 111 (H) 98 - 110 MMOL/L Glucose 126 (H) 70 - 100 MG/DL Blood Urea Nitrogen 36 (H) 7 - 25 MG/DL Creatinine 1.01 (H) 0.4 - 1.00 MG/DL Calcium 8.8 8.5 - 10.6 MG/DL Total Protein 6.0 6.0 - 8.0 G/DL Total Bilirubin 0.8 0.3 - 1.2 MG/DL Albumin 2.8 (L) 3.5 - 5.0 G/DL Alk Phosphatase 182 (H) 25 - 110 U/L AST (SGOT) 9 7 - 40 U/L CO2 24 21 - 30 MMOL/L ALT (SGPT) 9 7 - 56 U/L Anion Gap 8 3 - 12 eGFR Non 56 (L) >60 mL/min eGFR >60 >60 mL/min MAGNESIUM Collection Time: 05/17/17 2:47 AM # # Low-High Magnesium 2.2 1.6 - 2.6 mg/dL CBC AND DIFF Collection Time: 05/17/17 2:47 AM # # Low-High White Blood Cells 1.0 (L) 4.5 - 11.0 K/UL RBC 2.66 (L) 4.0 - 5.0 M/UL Hemoglobin 7.6 (L) 12.0 - 15.0 GM/DL Hematocrit 22.6 (L) 36 - 45 % MCV 85.0 80 - 100 FL MCH 28.6 26 - 34 PG MCHC 33.7 32.0 - 36.0 G/DL RDW 15.5 (H) 11 - 15 % Platelet Count 17 (LL) 150 - 400 K/UL MPV 8.9 7 - 11 FL Neutrophils 23 (L) 41 - 77 % Lymphocytes 74 (H) 24 - 44 % Monocytes 3 (L) 4 - 12 % Eosinophils 0 0 - 5 % Basophils 0 0 - 2 % Absolute Neutrophil Count 0.20 (L) 1.8 - 7.0 K/UL Absolute Lymph Count 0.70 (L) 1.0 - 4.8 K/UL Absolute Monocyte Count 0.00 0 - 0.80 K/UL Absolute Eosinophil Count 0.00 0 - 0.45 K/UL Absolute Basophil Count 0.00 0 - 0.20 K/UL POC GLUCOSE Collection Time: 05/17/17 7:47 AM # # Low-High Glucose, POC 152 (H) 70 - 100 MG/DL POC GLUCOSE Collection Time: 05/17/17 12:16 PM # # Low-High Glucose, POC 156 (H) 70 - 100 MG/DL POC GLUCOSE Collection Time: 05/17/17 4:52 PM # # Low-High Glucose, POC 118 (H) 70 - 100 MG/DL POC GLUCOSE Collection Time: 05/17/17 9:01 PM # # Low-High Glucose, POC 127 (H) 70 - 100 MG/DL COMPREHENSIVE METABOLIC PANEL Collection Time: 05/18/17 3:45 AM # # Low-High Sodium 142 137 - 147 MMOL/L Potassium 3.5 3.5 - 5.1 MMOL/L Chloride 114 (H) 98 - 110 MMOL/L Glucose 119 (H) 70 - 100 MG/DL Blood Urea Nitrogen 33 (H) 7 - 25 MG/DL Creatinine 0.90 0.4 - 1.00 MG/DL Calcium 7.9 (L) 8.5 - 10.6 MG/DL Total Protein 5.3 (L) 6.0 - 8.0 G/DL Total Bilirubin 0.7 0.3 - 1.2 MG/DL Albumin 2.4 (L) 3.5 - 5.0 G/DL Alk Phosphatase 173 (H) 25 - 110 U/L AST (SGOT) 7 7 - 40 U/L CO2 22 21 - 30 MMOL/L ALT (SGPT) 9 7 - 56 U/L Anion Gap 6 3 - 12 eGFR Non >60 >60 mL/min eGFR >60 >60 mL/min MAGNESIUM Collection Time: 05/18/17 3:45 AM # # Low-High Magnesium 1.7 1.6 - 2.6 mg/dL CBC AND DIFF Collection Time: 05/18/17 3:45 AM # # Low-High White Blood Cells 1.1 (L) 4.5 - 11.0 K/UL RBC 2.22 (L) 4.0 - 5.0 M/UL Hemoglobin 6.6 (L) 12.0 - 15.0 GM/DL Hematocrit 18.7 (L) 36 - 45 % MCV 84.0 80 - 100 FL MCH 29.7 26 - 34 PG MCHC 35.4 32.0 - 36.0 G/DL RDW 15.5 (H) 11 - 15 % Platelet Count 17 (LL) 150 - 400 K/UL MPV 8.9 7 - 11 FL Neutrophils 35 (L) 41 - 77 % Lymphocytes 56 (H) 24 - 44 % Monocytes 8 4 - 12 % Eosinophils 0 0 - 5 % Basophils 1 0 - 2 % Absolute Neutrophil Count 0.40 (L) 1.8 - 7.0 K/UL Absolute Lymph Count 0.60 (L) 1.0 - 4.8 K/UL Absolute Monocyte Count 0.10 0 - 0.80 K/UL Absolute Eosinophil Count 0.00 0 - 0.45 K/UL Absolute Basophil Count 0.00 0 - 0.20 K/UL TYPE & CROSSMATCH Collection Time: 05/18/17 3:45 AM # # Low-High Units Ordered 1 Crossmatch Expires 05/21/2017 Record Check FOUND ABO/RH(D) A POS Antibody Screen NEG Electronic Crossmatch YES Unit Number [id number] Blood Component Type RBC,ADSOL,LEUKO REDUCED,IRRADIATED Unit Division 0 Status OF Unit ISSUED Transfusion Status OK TO TRANSFUSE Crossmatch Result COMPATIBLE,ELECTRONIC POC GLUCOSE Collection Time: 05/18/17 7:59 AM # # Low-High Glucose, POC 148 (H) 70 - 100 MG/DL Radiology Review: No pertinent radiology. MAXWELL CLARKE MD * Arnold Sparks, PT - 05/18/2017 10:26 AM CDT PHYSICAL THERAPY PROGRESS NOTE MOBILITY: Mobility Progressive Mobility Level: Walk in hallway Distance Walked (feet): 60 ft Level of Assistance: Assist X1 Assistive Device: Walker Time Tolerated: 11-30 minutes Activity Limited By: No limitations SUBJECTIVE: Subjective Significant hospital events: Patient is a 56 year old female with new diagnosis of AML. Patient admitted for start of chemotherapy. Patient is obese with bariatric bed in place. Mental / Cognitive Status: Alert;Cooperative Persons Present: Nursing Staff Pain: Patient has no complaint of pain Pain Interventions: Patient agrees to participate in therapy Comments: Patient resting in bed, ready to practice stairs today to prepare for home discharge. Ambulation Assist: Independent Mobility in Community with Device Patient Owned Equipment: Roller Walker Home Situation: Lives with Family Type of Home: House Entry Stairs: 3-5 Stairs;Rail on Both Sides In-Home Stairs: Able to Live on One Level BED MOBILITY/TRANSFERS: Bed Mobility/Transfers Bed Mobility: Supine to Sit: Modified Independent Transfer Type: Sit to/from Stand Transfer: Assistance Level: To/From;Bed;Standby Assist Transfer: Assistive Device: Roller Walker Transfers: Type Of Assistance: Verbal Cues;For Safety Considerations End Of Activity Status: On Commode/Toilet;Nursing Notified;Instructed Patient to Use Call Light GAIT: Gait Gait Distance: 60 feet Gait: Assistance Level: Standby Assist;Management of Lines Gait: Assistive Device: Roller Walker Gait: Descriptors: Pace: Slow;Swing-Through Gait;No balance loss;Normal step length Stairs: Number Climbed: 4 Stairs: Descriptors: Non-Reciprocal Stairs: Assistance Level: Minimal Assist Stairs: Assistive Device: Two Rails EDUCATION: Education Persons Educated: Patient Patient Barriers To Learning: None Noted Interventions: Repetition of Instructions Teaching Methods: Verbal Instruction Patient Response: Verbalized Understanding Topics: Plan/Goals of PT Interventions;Use of Assistive Device/Orthosis; Mobility Progression;Safety Awareness;Up with Assist Only;Importance of Increasing Activity;Ambulate With Nursing ASSESSMENT/PROGRESS: Assessment/Progress Impaired Mobility Due To: Decreased Activity Tolerance;Medical Status Limitation Assessment/Progress: Should Improve w/ Continued PT Comments: Patient doing well with basic mobility. Patient does well with stairs but will need family assist for safety when returning home. AM-PAC 6 Clicks Basic Mobility Inpatient Turning from your back to your side while in a flat bed without using bed rails : None Moving from lying on your back to sitting on the side of a flatbed without using bedrails : None Moving to and from a bed to a chair (including a wheelchair): None Standing up from a chair using your arms (e.g. wheelchair, or bedside chair): None To walk in hospital room: None Climbing 3-5 steps with a railing: A Little Raw Score: 23 Standardized (T-scale) Score: 50.88 Basic Mobility CMS 0-100%: 16.55 CMS G Code Modifier for Basic Mobility: CI GOALS: Goals Goal Formulation: With Patient Time For Goal Achievement: 7 days Pt Will Go Supine To/From Sit: w/ Minimal Assist Pt Will Transfer Bed/Chair: w/ Minimal Assist Pt Will Transfer Sit to Stand: w/ Minimal Assist Pt Will Ambulate: 11-30 Feet, w/ Walker, w/ Minimal Assist Pt Will Go Up / Down Stairs: 1-2 Stairs, w/ Minimal Assist PLAN: Plan Treatment Interventions: Mobility Training;Strengthening;Balance Activities; Coordination Training;Endurance Training Plan Frequency: 5 Days per Week Comments: Continue to work on ambulation endurance. RECOMMENDATIONS: PT Discharge Recommendations PT Discharge Recommendations: Home Health Setting;to address deficits, maximize function and improve safety Therapist: Arnold Sparks DPT Date: 05/18/2017 * Cathleen Davies RN - 05/18/2017 6:30 AM CDT Shift: 05/17 shift superintendent NEWS Score: 1930: 2 (HR) 2313: 2 (supp oxygen) 0402: 3 (HR, supp oxygen) Pain: Pt reports no pain this shift. Nutrition: Neutropenic/diabetic diet. Pt reports no n/v this shift. GI/: Adequate amounts of clear, yellow urine. No burning/pain on urination. Last BM 05/17. Commode at bedside. Activity: Assist x1. Uses trapeze bar. No reports of dizziness upon movement this shift. Family: No family at bedside this shift. Last Shower: 05/17 New Events or Follow-up: Hgb 6.6, blood tranfusing K 3.5, replacements infusing Mg 1.7, replacements infusing * Jaylin Orantes RN - 05/17/2017 6:06 PM CDT Shift: 05/17 1019-1219 NEWS Score: 0742: 2 (supp O2) 1101: 2 1515: 0 Pain: Denies Nutrition: Neutropenic/ Diabetic diet. Fair appetite. Oral intake encouraged as tolerated. GI/: Voiding adequately per bedside commode. [facility] 05/17 Activity: Up with stand by assist. Needs motivation for physical activity. Sat up in chair for meals. Family: None present Last Shower: 05/17 New Events or Follow-up: No new acute events today. Continue to monitor for count recovery * Mercedes Butcher OTA - 05/17/2017 3:40 PM CDT OCCUPATIONAL THERAPY PROGRESS NOTE Admitting Diagnosis: AML Leukocytosis Mobility Progressive Mobility Level: Walk in room Distance Walked (feet): 6 ft Level of Assistance: Stand by assistance Assistive Device: Walker Time Tolerated: 11-30 minutes Activity Limited By: No limitations Subjective Pertinent Dx per Physician: 56 year old female with new diagnosis of AML. Patient admitted for start of chemotherapy. Patient is obese with bariatric bed in place. Precautions: Falls;Isolation (mask) Pain / Complaints: Patient has no c/o pain;Patient agrees to participate in therapy Objective Psychosocial Status: Willing and Cooperative to Participate Persons Present: None Home Living Type of Home: House Home Layout: One Level;Stairs to Enter w/ Rails Bathroom Shower / Tub: Walk-in Shower Bathroom Toilet: Standard Bathroom Equipment: Built-in Seat in Shower;Shower Chair;Commode;Grab Bars in Shower Bathroom Accessibility: Accessible via Walker Home Equipment: Walker;Commode;Grab Bars;Shower/Tub Bench Prior Function Level Of [place]: Needed assistance with ADLs;Needed assistance with homemaking;Independent with ADLs and functional transfers Lives With: Spouse Receives Help From: Spouse Comment: Spouse assists with lower body dressing. ADL's Shower Assist: Patient states she took a shower (while seated) earlier today without assistance. Toileting Assist: Stand By Assist Toileting Deficits: Perineal Hygiene;Bedside Commode Functional Transfer Assist: Stand By Assist (supine to sit to stand, ambulate to commode with walker) Comment: Patient requires extended period of time on the commode. Patient left with call light within reach. Notified RN. Activity Tolerance Sitting Balance: 5/5 Moves/Returns Trunkal Midpoint in All Planes > 2 Inches Cognition Cognition Comment: Patient tangible in conversation and needs frequent redirection. AM-PAC 6 Clicks Daily Activity Inpatient Putting on and taking off regular lower body clothes?: Total Bathing (Including washing, rinsing, drying): A Lot Toileting, which includes using toilet, bedpan, or urinal: A Little Putting on and taking off regular upper body clothing: A Little Taking care of personal grooming such as brushing teeth: None Eating meals?: None Daily Activity Raw Score: 17 Standardized (t-scale) score: 37.26 CMS 0-100% Score: 50.11 CMS G Code Modifier: CK Plan Treatment Interventions: ADL Retraining;Functional Transfer Training;Endurance Training;Fine Motor Coordination Activities;Compensatory Technique Education OT Frequency: 5x/week Further Evaluation Goals Pt Will Tolerate Further ADL Evaluation: w/in1-2 sessions, Met ADL Goals Patient Will Perform Grooming: w/ Stand By Assist Patient Will Perform LE Dressing: At Edge of Bed, Standing at Edge of Bed, w/ Minimum Assist Functional Transfer Goals Pt Will Perform All Functional Transfers: w/ Stand By Assist Arm Goals Pt Will Perform AROM: B UE, 2 Sets, 10 Reps, w/ Good Activity Tolerance Vision Goals Comment: Pt reports blurriness upon completing chemo as well as "blue and yellow flashes." Discharge Recommendations: home with Home Health to address deficits, maximize function and improve safety. Equipment Recommendations: Patient owns necessary equipment Patient states her [id number] lived with them for a 10 year period and used a wheelchair that they have in storage. Therapist: YASMIN Golden [id number] Date: 05/17/2017 * Asher Sullivan MD - 05/17/2017 3:01 PM CDT Formatting of this note may be different from the original. 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 Hypoglycemia is recurrent in spite of D5 normal saline drip. Recurrent UTI Acute leukemia A. fib CKD stage III Recommendations: - Hypoglycemia has resolved. - well- controlled DM - continue lantus 12 units daily - continue novolog 7 units with meals - continue MDCF - plan to restart glimepiride/glipizide at discharge. - CDE consulted for home glucose monitor and DM education - She does not agree with us regarding restarting metformin concerning for her CKD. Now her Cr is normal and GFR > 60. 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 We will continue to follow discussed with Dr. Sullivan History of Present Illness Giselle Moraes is a 56 y.o. female with past medical history of A. fib, type 2 diabetes, CKD stage III, UTI, anxiety was admitted for suspicion for acute leukemia. Endocrinology was consulted for recurrent hypoglycemia. Patient is tired Eating well. No other complaitns Denies nausea , vomitng , abdominal pain Estimated Creatinine Clearance: 80.5 mL/min (based on Cr of 1.01). 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 No pertinent family history. Allergies Allergies Allergen Reactions Ciprofloxacin SEE COMMENTS Per Nephrology doctors. Levofloxacin SEE COMMENTS Per nephrology doctors. Nsaids (Non-Steroidal Anti-Inflammatory Drug) SEE COMMENTS Per nephrology doctors. Bactrim [Sulfamethoxazole-Trimethoprim] SEE COMMENTS Per Nephrology Doctors. Contrast Dye Iv, Iodine Containing [Iodinated Contrast- Oral And Iv Dye] SEE COMMENTS Per nephrology doctors. Review of Systems A comprehensive 14-point review of systems was negative with exception of fatigue Medications Scheduled Meds: acyclovir (ZOVIRAX) tablet 800 mg 800 mg Oral BID atenolol (TENORMIN) tablet 25 mg 25 mg Oral QDAY cefepime (MAXIPIME) 2 g in dextrose 5% (D5W) IVPB 2 g Intravenous Q8H* diltiazem CD (cardIZEM CD) capsule 240 mg 240 mg Oral QDAY insulin aspart (NOVOLOG FLEXPEN) injection PEN 0-14 Units 0-14 Units Subcutaneous ACHS insulin aspart (NOVOLOG FLEXPEN) injection PEN 7 Units 7 Units Subcutaneous TID w/ meals insulin glargine (LANTUS SOLOSTAR) injection PEN 12 Units 12 Units Subcutaneous QDAY(12) posaconazole EC (NOXAFIL) tablet 300 mg 300 mg Oral QDAY w/breakfast Continuous Infusions: PRN and Respiratory Meds:acetaminophen Q6H PRN, ALPRAZolam BID PRN, alteplase PRN (Compliance Representative from Rx), hydrOXYzine TID PRN, loperamide PRN, LORazepam Q6H PRN, LORazepam injection Q6H PRN, magnesium sulfate 4 g/50 mL PRN, milk of magnesia ( CONC) Q6H PRN, polyethylene glycol 3350 QDAY PRN, potassium chloride PRN (Compliance Representative from Rx) OR potassium chloride SR PRN (Compliance Representative from Rx), saliva, synthetic PRN, senna BID PRN, sodium chloride 0.9% irrigation bottle PRN Physical Examination Vital Signs: Last Vital Signs: 24 Hour Range BP: 99/50 (05/17 1101) Temp: 36.7 C (98 F) (05/17 1101) Pulse: 72 (05/17 1101) Respirations: 20 PER MINUTE (05/17 1101) SpO2: 100 % (05/17 1101) O2 Delivery: None (Room Air) (05/17 1101) BP: (99-122)/(50-62) Temp: [36.3 C (97.4 F)-37.1 C (98.7 F)] Pulse: [60-117] Respirations: [18 PER MINUTE-22 PER MINUTE] SpO2: [95 %-100 %] O2 Delivery: None (Room Air) General appearance: alert, oriented, looking tired HENT: Dry oral mucosa, dried blood on lips Lungs: no wheezing, rhonchi, rales appreciated Heart: Regular rhythm, reg rate, with no murmur, rub, gallop Abdomen: soft, non-tender, non-distended, normoactive bowel sounds, Ext: No clubbing, cyanosis or edema Skin: no rashes/lesions Lab Review Point of Care Testing (Last 24 hours) Glucose: (!) 126 (05/17/17 024) POC Glucose (Download): (!) 156 (05/17/17 1216) Recent Labs 05/15/1729905/16/1731905/17/17246 NA 141 143 143 K 4.0 4.1 3.8 CL 111* 112* 111* CO2 24 25 24 GAP 6 6 8 BUN 35* 33* 36* CR 0.84 0.85 1.01* GLU 125* 129* 126* CA 8.7 8.6 8.8 ALBUMIN 2.5* 2.5* 2.8* MG 2.0 2.0 2.2 Recent Labs 05/15/1729905/16/1731905/17/17246 WBC 0.5* 0.5* 1.0* HGB 6.6* 7.1* 7.6* HCT 18.9* 20.2* 22.6* PLTCT 16* 13* 17* AST 9 8 9 ALT 7 7 9 ALKPHOS 135* 149* 182* Estimated Creatinine Clearance: 80.5 mL/min (based on Cr of 1.01). Vitals: 05/15/17 0413 05/16/17 0412 05/17/17 024 Weight: 132.4 kg (291 lb 12.8 oz) 125.6 kg (276 lb 12.8 oz) 117.5 kg (259 lb) Thyroid Studies No results found for: TSH, FREET4, FREEINDEX No results found for: FREET3, [id number], THYBINDGLB Ari Collazo MD Endocrinology Fellow PGY-[id number] [phone] ATTESTATION I personally performed the carrizales portions of the E/M visit, discussed case with resident and concur with resident documentation of history, physical exam, assessment, and treatment plan unless otherwise noted. Staff name: Asher Sullivan MD Date: 05/17/2017 * Arnold Sparks, PT - 05/17/2017 2:59 PM CDT PHYSICAL THERAPY PROGRESS NOTE MOBILITY: Mobility Progressive Mobility Level: Stand Level of Assistance: Stand by assistance Assistive Device: None Time Tolerated: 11-30 minutes Activity Limited By: No limitations SUBJECTIVE: Subjective Significant hospital events: Patient is a 56 year old female with new diagnosis of AML. Patient admitted for start of chemotherapy. Patient is obese with bariatric bed in place. Mental / Cognitive Status: Alert;Cooperative Pain: Patient has no complaint of pain Pain Interventions: Patient agrees to participate in therapy Comments: Patient resting in bed, states she is doing well and hopfeul to be able to discharge later this week if counts recover. PT and patient discussed barriers to going home and how to manage. Ambulation Assist: Independent Mobility in Community with Device Patient Owned Equipment: Roller Walker Home Situation: Lives with Family Type of Home: House Entry Stairs: 3-5 Stairs;Rail on Both Sides In-Home Stairs: Able to Live on One Level Comments: Patient having spouse check on wheelchair availability. BED MOBILITY/TRANSFERS: Bed Mobility/Transfers Bed Mobility: Supine to Sit: Modified Independent Bed Mobility: Sit to Supine: Modified Independent Transfer Type: Sit to/from Stand Transfer: Assistance Level: To/From;Bed;Modified Independent Transfer: Assistive Device: None End Of Activity Status: In Bed;Nursing Notified;Instructed Patient to Use Call Light GAIT: Gait Comments: going to assess stairs on Wednesday to assist with discharge planning. EDUCATION: Education Persons Educated: Patient Patient Barriers To Learning: None Noted Interventions: Repetition of Instructions Teaching Methods: Verbal Instruction Patient Response: Verbalized Understanding Topics: Plan/Goals of PT Interventions;Use of Assistive Device/Orthosis; Mobility Progression;Safety Awareness;Up with Assist Only;Importance of Increasing Activity;Ambulate With Nursing ASSESSMENT/PROGRESS: Assessment/Progress Impaired Mobility Due To: Decreased Activity Tolerance;Medical Status Limitation Assessment/Progress: Should Improve w/ Continued PT Comments: Patient showing improvement with each visit. Patient will benefit from consistent activity when she discharges to maintain strength and endurance. Patient needs to pass stairs to be able to safely discharge home. AM-PAC 6 Clicks Basic Mobility Inpatient Turning from your back to your side while in a flat bed without using bed rails : None Moving from lying on your back to sitting on the side of a flatbed without using bedrails : None Moving to and from a bed to a chair (including a wheelchair): None Standing up from a chair using your arms (e.g. wheelchair, or bedside chair): None To walk in hospital room: A Little Climbing 3-5 steps with a railing: A Little Raw Score: 22 Standardized (T-scale) Score: 47.4 Basic Mobility CMS 0-100%: 25.02 CMS G Code Modifier for Basic Mobility: CJ GOALS: Goals Goal Formulation: With Patient Time For Goal Achievement: 7 days Pt Will Go Supine To/From Sit: w/ Minimal Assist Pt Will Transfer Bed/Chair: w/ Minimal Assist Pt Will Transfer Sit to Stand: w/ Minimal Assist Pt Will Ambulate: 11-30 Feet, w/ Walker, w/ Minimal Assist Pt Will Go Up / Down Stairs: 1-2 Stairs, w/ Minimal Assist PLAN: Plan Treatment Interventions: Mobility Training;Strengthening;Balance Activities; Coordination Training;Endurance Training Plan Frequency: 5 Days per Week Comments: PT to work on stairs at 10AM Wednesday. RECOMMENDATIONS: PT Discharge Recommendations PT Discharge Recommendations: Home Health Setting;to address deficits, maximize function and improve safety Equipment Recommendations: (Possible wheelchair but patient looking into this.) Therapist: Arnold Sparks DPT Date: 05/17/2017 * Maxwell Clarke MD - 05/17/2017 10:06 AM CDT Formatting of this note may be different from the original. 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 WBC increasing, ANC 200 today. - Previously on anticoagulation with apixaban for Atrial fibrillation, will hold for now with thrombocytopenia - Anticoagulation with lovenox for DVT ppx contraindicated due to thrombocytopenia, SCD's when on bed FEN/Renal: - Monitor electrolytes, high goal replacement with h/o atrial fibrillation. Mg replacements today - Close monitoring of fluid status - Monitor I/O and daily weights to assess for need for prn lasix. ID: Afebrile, Temperature up to 100.2 on 05/09/17 - Presents with UTI and fever - Urine cx from [facility] 04/23: + E.Coli resistant to ampicillin, Bactrim, Nitrofurantoin. Intermediate resistance to gent and Unasyn. Susceptible to ceftriaxone, zosyn, meropenem, cipro and aztreonam - Blood cx x 2 from [facility] 04/23: NGTD - Cefepime continues, had vancomycin and daptomycin on 04/24-04/25, discontinued, restart vanco if febrile. Will plan to continue until neutropenia resolves - On prophylaxis with posaconazole (due to planned midostaurin) and acyclovir. - for any neutropenic fever, will check chest CT as well given risk of pneumonia with poor resp effort due to weakness/obesity GI: - No nausea, vomiting, has prn anti-emetics available - good PO intake. - Obese, BMT>40 Endo: - Has type II DM, on glimiperide has been discontinued on admission - Endocrinology consultation obtained and appreciate recommendations; insulin regimen per endo CVS: - H/o atrial fibrillation, rate controlled. 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 COUNTER [employer] ASSEMBLER lasix on hold and giving as needed. - Mild moderate - Will hold COUNTER TOP ASSEMBLER apixaban with thrombocytopenia - Cardiology opinion appreciated, 2d Echo- normal EF 60%. : Chronic cystitis, gonzalez placed for urinary retention, d/c 05/12. Voiding without difficulty Pulm: Sleep apnea on oxygen at night. Derm: Facial hyperpigmentation on the right side of face. Derm to evaluate. Benign lesions, recommended topical tx only Psych/Social: - On alprazolam for anxiety, currently continued at low dose - Lives in [place], , currently on disability, son lives in [facility] - Need to schedule family meeting to discuss future treatment course, had first discussion with and family friend on 04/28. PT/OT: PT/OT following Subjective: Giselle Moraes is a 56 y.o. female. Pt feels well. Review of Systems: Constitutional: + fatigue, anorexia HEENT: Denies nosebleeds, mouth sores. Respiratory: mild SOB with moving around. 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 Psych: + anxiety Objective: Medications: Scheduled Meds: acyclovir (ZOVIRAX) tablet 800 mg 800 mg Oral BID atenolol (TENORMIN) tablet 25 mg 25 mg Oral QDAY cefepime (MAXIPIME) 2 g/100 ml iso-osmotic IVPB 2 g Intravenous Q8H* diltiazem CD (cardIZEM CD) capsule 240 mg 240 mg Oral QDAY insulin aspart (NOVOLOG FLEXPEN) injection PEN 0-14 Units 0-14 Units Subcutaneous ACHS insulin aspart (NOVOLOG FLEXPEN) injection PEN 7 Units 7 Units Subcutaneous TID w/ meals insulin glargine (LANTUS SOLOSTAR) injection PEN 12 Units 12 Units Subcutaneous QDAY(12) posaconazole EC (NOXAFIL) tablet 300 mg 300 mg Oral QDAY w/breakfast Continuous Infusions: PRN and Respiratory Meds:acetaminophen Q6H PRN, ALPRAZolam BID PRN, alteplase PRN (Compliance Representative from Rx), hydrOXYzine TID PRN, loperamide PRN, LORazepam Q6H PRN, LORazepam injection Q6H PRN, magnesium sulfate 4 g/50 mL PRN, milk of magnesia ( CONC) Q6H PRN, polyethylene glycol 3350 QDAY PRN, potassium chloride PRN (Compliance Representative from Rx) OR potassium chloride SR PRN (Compliance Representative from Rx), saliva, synthetic PRN, senna BID PRN, sodium chloride 0.9% irrigation bottle PRN Vital Signs: Last Filed Vital Signs: 24 Hour Range BP: 111/52 (05/17 742) Temp: 36.7 C (98.1 F) (05/17 742) Pulse: 74 (05/17 742) Respirations: 20 PER MINUTE (05/17 742) SpO2: 100 % (05/17 742) O2 Delivery: Nasal Cannula (05/17 742) BP: (105-122)/(50-62) Temp: [36.3 C (97.4 F)-37.1 C (98.8 F)] Pulse: [60-117] Respirations: [18 PER MINUTE-22 PER MINUTE] SpO2: [95 %-100 %] O2 Delivery: Nasal Cannula Intensity Pain Scale 0-10 (Pain 1): (not recorded) Vitals: 05/15/17 0413 05/16/17 0412 05/17/17 0245 Weight: 132.4 kg (291 lb 12.8 oz) 125.6 kg (276 lb 12.8 oz) 117.5 kg (259 lb) Intake/Output Summary: (Last 24 hours) Intake/Output Summary (Last 24 hours) at 05/17/17 1006 Last data filed at 05/17/17 0743 Gross per 24 hour Intake 800 ml Output 1776 ml Net -976 ml Physical Exam: Performance Status (Karnofsky): 60% Requires some assistance, but able to care for most of needs VS reviewed General: Alert, cooperative, no distress, appears stated age/ Morbidly obese Head: Normocephalic, without obvious abnormality, atraumatic Eyes:Anicteric sclera OP: No erythema or ulcers Lungs: CTAB no rales or wheezes Heart: Irregular rhythm Abdomen: Soft, non-tender. Bowel sounds normal. No masses. No organomegaly. Extremities: Trace edema to feet Skin: Facial hyperpigmentation on right cheek, long standing per patient. + buising and petechiae Neurologic: Generalized weakness, limited mobility Lab Review: Results for orders placed or performed during the hospital encounter of (from the past 48 hour(s)) POC GLUCOSE Collection Time: 05/15/17 12:40 PM # # Low-High Glucose, POC 176 (H) 70 - 100 MG/DL POC GLUCOSE Collection Time: 05/15/17 4:36 PM # # Low-High Glucose, POC 103 (H) 70 - 100 MG/DL POC GLUCOSE Collection Time: 05/15/17 8:53 PM # # Low-High Glucose, POC 131 (H) 70 - 100 MG/DL COMPREHENSIVE METABOLIC PANEL Collection Time: 05/16/17 3:20 AM # # Low-High Sodium 143 137 - 147 MMOL/L Potassium 4.1 3.5 - 5.1 MMOL/L Chloride 112 (H) 98 - 110 MMOL/L Glucose 129 (H) 70 - 100 MG/DL Blood Urea Nitrogen 33 (H) 7 - 25 MG/DL Creatinine 0.85 0.4 - 1.00 MG/DL Calcium 8.6 8.5 - 10.6 MG/DL Total Protein 5.4 (L) 6.0 - 8.0 G/DL Total Bilirubin 1.1 0.3 - 1.2 MG/DL Albumin 2.5 (L) 3.5 - 5.0 G/DL Alk Phosphatase 149 (H) 25 - 110 U/L AST (SGOT) 8 7 - 40 U/L CO2 25 21 - 30 MMOL/L ALT (SGPT) 7 7 - 56 U/L Anion Gap 6 3 - 12 eGFR Non >60 >60 mL/min eGFR >60 >60 mL/min MAGNESIUM Collection Time: 05/16/17 3:20 AM # # Low-High Magnesium 2.0 1.6 - 2.6 mg/dL CBC AND DIFF Collection Time: 05/16/17 3:20 AM # # Low-High White Blood Cells 0.5 (LL) 4.5 - 11.0 K/UL RBC 2.39 (L) 4.0 - 5.0 M/UL Hemoglobin 7.1 (L) 12.0 - 15.0 GM/DL Hematocrit 20.2 (L) 36 - 45 % MCV 84.6 80 - 100 FL MCH 29.6 26 - 34 PG MCHC 35.0 32.0 - 36.0 G/DL RDW 15.1 (H) 11 - 15 % Platelet Count 13 (LL) 150 - 400 K/UL MPV 7.8 7 - 11 FL Neutrophils 12 (L) 41 - 77 % Lymphocytes 84 (H) 24 - 44 % Monocytes 3 (L) 4 - 12 % Eosinophils 1 0 - 5 % Basophils 0 0 - 2 % Absolute Neutrophil Count 0.10 (L) 1.8 - 7.0 K/UL Absolute Lymph Count 0.40 (L) 1.0 - 4.8 K/UL Absolute Monocyte Count 0.00 0 - 0.80 K/UL Absolute Eosinophil Count 0.00 0 - 0.45 K/UL Absolute Basophil Count 0.00 0 - 0.20 K/UL POC GLUCOSE Collection Time: 05/16/17 3:24 AM # # Low-High Glucose, POC 130 (H) 70 - 100 MG/DL POC GLUCOSE Collection Time: 05/16/17 7:44 AM # # Low-High Glucose, POC 136 (H) 70 - 100 MG/DL POC GLUCOSE Collection Time: 05/16/17 11:42 AM # # Low-High Glucose, POC 154 (H) 70 - 100 MG/DL POC GLUCOSE Collection Time: 05/16/17 5:16 PM # # Low-High Glucose, POC 112 (H) 70 - 100 MG/DL POC GLUCOSE Collection Time: 05/16/17 8:58 PM # # Low-High Glucose, POC 136 (H) 70 - 100 MG/DL POC GLUCOSE Collection Time: 05/17/17 2:45 AM # # Low-High Glucose, POC 131 (H) 70 - 100 MG/DL COMPREHENSIVE METABOLIC PANEL Collection Time: 05/17/17 2:47 AM # # Low-High Sodium 143 137 - 147 MMOL/L Potassium 3.8 3.5 - 5.1 MMOL/L Chloride 111 (H) 98 - 110 MMOL/L Glucose 126 (H) 70 - 100 MG/DL Blood Urea Nitrogen 36 (H) 7 - 25 MG/DL Creatinine 1.01 (H) 0.4 - 1.00 MG/DL Calcium 8.8 8.5 - 10.6 MG/DL Total Protein 6.0 6.0 - 8.0 G/DL Total Bilirubin 0.8 0.3 - 1.2 MG/DL Albumin 2.8 (L) 3.5 - 5.0 G/DL Alk Phosphatase 182 (H) 25 - 110 U/L AST (SGOT) 9 7 - 40 U/L CO2 24 21 - 30 MMOL/L ALT (SGPT) 9 7 - 56 U/L Anion Gap 8 3 - 12 eGFR Non 56 (L) >60 mL/min eGFR >60 >60 mL/min MAGNESIUM Collection Time: 05/17/17 2:47 AM # # Low-High Magnesium 2.2 1.6 - 2.6 mg/dL CBC AND DIFF Collection Time: 05/17/17 2:47 AM # # Low-High White Blood Cells 1.0 (L) 4.5 - 11.0 K/UL RBC 2.66 (L) 4.0 - 5.0 M/UL Hemoglobin 7.6 (L) 12.0 - 15.0 GM/DL Hematocrit 22.6 (L) 36 - 45 % MCV 85.0 80 - 100 FL MCH 28.6 26 - 34 PG MCHC 33.7 32.0 - 36.0 G/DL RDW 15.5 (H) 11 - 15 % Platelet Count 17 (LL) 150 - 400 K/UL MPV 8.9 7 - 11 FL Neutrophils 23 (L) 41 - 77 % Lymphocytes 74 (H) 24 - 44 % Monocytes 3 (L) 4 - 12 % Eosinophils 0 0 - 5 % Basophils 0 0 - 2 % Absolute Neutrophil Count 0.20 (L) 1.8 - 7.0 K/UL Absolute Lymph Count 0.70 (L) 1.0 - 4.8 K/UL Absolute Monocyte Count 0.00 0 - 0.80 K/UL Absolute Eosinophil Count 0.00 0 - 0.45 K/UL Absolute Basophil Count 0.00 0 - 0.20 K/UL POC GLUCOSE Collection Time: 05/17/17 7:47 AM # # Low-High Glucose, POC 152 (H) 70 - 100 MG/DL Radiology Review: No pertinent radiology. MAXWELL CLARKE MD * Antonieta Leon RN - 05/17/2017 6:25 AM CDT Shift: NEWS Score: 3, 2, 4 Pain: Denies pain Nutrition: ADA/Neutropenic diet, eating well. Denies nausea GI/: BM 05/16/2017, voiding clear orange light ene urine. Activity: Up with stand by assist Family: No family/visitors present Last Shower: Bed bath 05/16/2017 New Events or Follow-up: Needs a lot of encouragement for physical activity! * Karla Eng MD - 05/16/2017 11:08 AM CDT Formatting of this note may be different from the original. 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 female. Patient s/ acute overnight events. Tolerating PO intake. No hypo nor hyperglycemia. 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 No CP. No SOB. No nausea/vomiting. Medications Scheduled Meds: acyclovir (ZOVIRAX) tablet 800 mg 800 mg Oral BID atenolol (TENORMIN) tablet 25 mg 25 mg Oral QDAY cefepime (MAXIPIME) 2 g/100 ml iso-osmotic IVPB 2 g Intravenous Q8H* diltiazem CD (cardIZEM CD) capsule 240 mg 240 mg Oral QDAY furosemide (LASIX) injection 40 mg 40 mg Intravenous ONCE insulin aspart (NOVOLOG FLEXPEN) injection PEN 0-14 Units 0-14 Units Subcutaneous ACHS insulin aspart (NOVOLOG FLEXPEN) injection PEN 7 Units 7 Units Subcutaneous TID w/ meals insulin glargine (LANTUS SOLOSTAR) injection PEN 12 Units 12 Units Subcutaneous QDAY(12) posaconazole EC (NOXAFIL) tablet 300 mg 300 mg Oral QDAY w/breakfast Continuous Infusions: PRN and Respiratory Meds:acetaminophen Q6H PRN, ALPRAZolam BID PRN, alteplase PRN (Compliance Representative from Rx), hydrOXYzine TID PRN, loperamide PRN, LORazepam Q6H PRN, LORazepam injection Q6H PRN, magnesium sulfate 4 g/50 mL PRN, milk of magnesia ( CONC) Q6H PRN, polyethylene glycol 3350 QDAY PRN, potassium chloride PRN (Compliance Representative from Rx) OR potassium chloride SR PRN (Compliance Representative from Rx), saliva, synthetic PRN, senna BID PRN, sodium chloride 0.9% irrigation bottle PRN Objective Vital Signs: Last Filed Vital Signs: 24 Hour Range BP: 114/54 (05/16 745) Temp: 36.5 C (97.7 F) (05/16 745) Pulse: 76 (05/16 745) Respirations: 18 PER MINUTE (05/16 745) SpO2: 99 % (05/16 745) O2 Delivery: None (Room Air) (05/16 745) BP: (114-122)/(54-65) Temp: [36.4 C (97.5 F)-37.3 C (99.2 F)] Pulse: [76-84] Respirations: [16 PER MINUTE-22 PER MINUTE] SpO2: [98 %-100 %] O2 Delivery: None (Room Air) Vitals: 05/13/17 0908 05/15/17 0413 05/16/17 0412 Weight: 131.7 kg (290 lb 6.4 oz) 132.4 kg (291 lb 12.8 oz) 125.6 kg (276 lb 12.8 oz) Physical Exam Gen-A&O x 3 in NAD Head-hair loss noted Eyes-eomi ENT-nc/at CV-RRR Pulm-no distress; no O2 needs Mood-upbeat Affect-approriate Lab Review Comprehensive Metabolic Profile Lab Results Component Value Date/Time NA 143 05/16/2017 03:20 AM K 4.1 05/16/2017 03:20 AM CL 112 (H) 05/16/2017 03:20 AM CO2 25 05/16/2017 03:20 AM GAP 6 05/16/2017 03:20 AM BUN 33 (H) 05/16/2017 03:20 AM CR 0.85 05/16/2017 03:20 AM GLU 129 (H) 05/16/2017 03:20 AM Lab Results Component Value Date/Time CA 8.6 05/16/2017 03:20 AM PO4 5.7 (H) 05/02/2017 04:25 AM ALBUMIN 2.5 (L) 05/16/2017 03:20 AM TOTPROT 5.4 (L) 05/16/2017 03:20 AM ALKPHOS 149 (H) 05/16/2017 03:20 AM AST 8 05/16/2017 03:20 AM ALT 7 05/16/2017 03:20 AM TOTBILI 1.1 05/16/2017 03:20 AM GFR >60 05/16/2017 03:20 AM GFRAA >60 05/16/2017 03:20 AM Glucose testing Recent Labs 05/14/17 2045 05/15/17 0259 05/15/17 0815 05/15/17 1240 05/15/17 1636 05/15/17 2053 05/16/17 0324 05/16/17 0744 GLUPOC 92 132* 137* 176* 103* 131* 130* 136* Hemoglobin A1C Date Value Ref Range Status 04/24/2017 5.2 4.0 - 6.0 % Final Comment: The ADA recommends that most patients with type 1 and type 2 diabetes maintain an A1c level <7%. Radiology and other Diagnostics Review: No new data Karla Eng MD [phone] * Mayte Weber, RT - 05/16/2017 9:52 AM CDT Formatting of this note may be different from the original. RESPIRATORY THERAPY ADULT PROTOCOL EVALUATION RESPIRATORY PROTOCOL PLAN Medications Note: If indicated by protocol, medication orders will be placed by therapist. Procedures PEP Therapy: Place a nursing order for "IS Q1h While Awake" for any of Lung Expansion indicators Oxygen/Humidity: O2 to keep SpO2 > 92% Monitoring: Pulse oximetry BID & PRN Comment: PATIENT EVALUATION RESULTS Chart Review * Pulmonary Hx: No pulmonary diagnosis OR no smoking hx * Surgical Hx: No surgery OR last surgery > 6 weeks ago OR trach/stoma (BA) * Chest X-Ray: Clear OR not available (No CXR) * PFT/Oxygenation: FEV1, PEFR < 70% OR Pa02 < 70 RA OR Sp02 <92% RA OR Fi02 > 0.21 to keep Sp02 > 92% OR < 24 hours post-op (02 & oxim) OR chronic C02 retention (C02) (Pt wears 1.5 LPM O2 @ noc and after execise) Patient Assessment * Respiratory Pattern: Regular pattern and rate OR good chest excursion with deep breathing * Breath Sounds: Clear and able to auscultate bases posteriorly * Cough / Sputum: Strong, effective cough OR nonproductive * Mental Status: Alert, oriented, cooperative * Activity Level: Ambulatory with assistance Priority Index Total Points: 3 Points * Priority Index: 1 PRIORITY INDEX GUIDELINES* Priority Points 1 0-9 points 2 9-18 points 3 > 18 points + Pulm Dx or Home Rx *Higher points indicate higher acuity. Therapist: RT Nicolas Date: 05/16/2017 Carrziales AC=Airway clearance AM=Aerosolized medication BA=[place] aerosol DB&C=Deep breathe & cough FEV1=Forced expiratory volume in first second) IC=Inspiratory capacity LE=Lung expansion MDI=Metered dose inhaler Neb=Nebulizer O2=Oxygen Oxim=Oximetry PEFR=Peak expiratory flow rate [employer]=Rapid Response Team * Cristina Sy MD - 05/16/2017 9:29 AM CDT Formatting of this note may be different from the original. 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 WBC increasing, ANC 100 today. PRBC transfusion today - Previously on anticoagulation with apixaban for Atrial fibrillation, will hold for now with thrombocytopenia - Anticoagulation with lovenox for DVT ppx contraindicated due to thrombocytopenia, SCD's when on bed FEN/Renal: - Monitor electrolytes, high goal replacement with h/o atrial fibrillation. Mg replacements today - Close monitoring of fluid status - Monitor I/O and daily weights to assess for need for prn lasix. ID: Afebrile, Temperature up to 100.2 on 05/09/17 - Presents with UTI and fever - Urine cx from [facility] 04/23: + E.Coli resistant to ampicillin, Bactrim, Nitrofurantoin. Intermediate resistance to gent and Unasyn. Susceptible to ceftriaxone, zosyn, meropenem, cipro and aztreonam - Blood cx x 2 from [facility] 04/23: NGTD - Cefepime continues, had vancomycin and daptomycin on 04/24-04/25, discontinued, restart vanco if febrile. Will plan to continue until neutropenia resolves - Has urinary catheter in place, did have urinary retention after trying to remove, will try again in one week after finishing antibiotics. - On prophylaxis with posaconazole (due to planned midostaurin) and acyclovir. D/c fermin as no midostaurin this cycle - for any neutropenic fever, will check chest CT as well given risk of pneumonia with poor resp effort due to weakness/obesity GI: - No nausea, vomiting, has prn anti-emetics available - good PO intake. - Obese, BMT>40 Endo: - Has type II DM, on glimiperide has been discontinued on admission - Endocrinology consultation obtained and appreciate recommendations; insulin regimen per endo CVS: - H/o atrial fibrillation, rate controlled. 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 COUNTER [employer] AS[employer]ER lasix on hold and giving as needed. - Mild moderate - Will hold COUNTER TOP ASSEMBLER apixaban with thrombocytopenia - Cardiology opinion appreciated, 2d Echo- normal EF 60%. : Chronic cystitis, gonzalez placed for urinary retention, d/c 05/12. Voiding without difficulty Pulm: Sleep apnea on oxygen at night. Derm: Facial hyperpigmentation on the right side of face. Derm to evaluate. Benign lesions, recommended topical tx only Psych/Social: - On alprazolam for anxiety, currently continued at low dose - Lives in [facility], , currently on disability, son lives in [facility] - Need to schedule family meeting to discuss future treatment course, had first discussion with and family friend on 04/28. PT/OT: PT/OT following Subjective: Giselle Moraes is a 56 y.o. female. Pt determined to get stronger in order to go home when counts recover. Review of Systems: Constitutional: + fatigue, anorexia HEENT: Denies nosebleeds, mouth sores. Respiratory: mild SOB with moving around. 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 Psych: + anxiety Objective: Medications: Scheduled Meds: acyclovir (ZOVIRAX) tablet 800 mg 800 mg Oral BID atenolol (TENORMIN) tablet 25 mg 25 mg Oral QDAY cefepime (MAXIPIME) 2 g/100 ml iso-osmotic IVPB 2 g Intravenous Q8H* diltiazem CD (cardIZEM CD) capsule 240 mg 240 mg Oral QDAY insulin aspart (NOVOLOG FLEXPEN) injection PEN 0-14 Units 0-14 Units Subcutaneous ACHS insulin aspart (NOVOLOG FLEXPEN) injection PEN 7 Units 7 Units Subcutaneous TID w/ meals insulin glargine (LANTUS SOLOSTAR) injection PEN 12 Units 12 Units Subcutaneous QDAY(12) posaconazole EC (NOXAFIL) tablet 300 mg 300 mg Oral QDAY w/breakfast Continuous Infusions: PRN and Respiratory Meds:acetaminophen Q6H PRN, ALPRAZolam BID PRN, alteplase PRN (Compliance Representative from Rx), hydrOXYzine TID PRN, loperamide PRN, LORazepam Q6H PRN, LORazepam injection Q6H PRN, magnesium sulfate 4 g/50 mL PRN, milk of magnesia ( CONC) Q6H PRN, polyethylene glycol 3350 QDAY PRN, potassium chloride PRN (Compliance Representative from Rx) OR potassium chloride SR PRN (Compliance Representative from Rx), saliva, synthetic PRN, senna BID PRN, sodium chloride 0.9% irrigation bottle PRN Vital Signs: Last Filed Vital Signs: 24 Hour Range BP: 114/54 (05/16 745) Temp: 36.5 C (97.7 F) (05/16 745) Pulse: 76 (05/16 745) Respirations: 18 PER MINUTE (05/16 745) SpO2: 99 % (05/16 745) O2 Delivery: None (Room Air) (05/16 745) BP: (114-122)/(54-65) Temp: [36.4 C (97.5 F)-37.3 C (99.2 F)] Pulse: [76-84] Respirations: [16 PER MINUTE-22 PER MINUTE] SpO2: [98 %-100 %] O2 Delivery: None (Room Air) Intensity Pain Scale 0-10 (Pain 1): (not recorded) Vitals: 05/13/17 0908 05/15/17 0413 05/16/17411 Weight: 131.7 kg (290 lb 6.4 oz) 132.4 kg (291 lb 12.8 oz) 125.6 kg (276 lb 12.8 oz) Intake/Output Summary: (Last 24 hours) Intake/Output Summary (Last 24 hours) at 05/16/17 09 Last data filed at 05/16/17 0827 Gross per 24 hour Intake 1178 ml Output 1901 ml Net -723 ml Physical Exam: Performance Status (Karnofsky): 60% Requires some assistance, but able to care for most of needs VS reviewed General: Alert, cooperative, no distress, appears stated age/ Morbidly obese Head: Normocephalic, without obvious abnormality, atraumatic Eyes:Anicteric sclera OP: No erythema or ulcers Lungs: CTAB no rales or wheezes Heart: Irregular rhythm Abdomen: Soft, non-tender. Bowel sounds normal. No masses. No organomegaly. Extremities: Trace edema to feet Skin: Facial hyperpigmentation on right cheek, long standing per patient. + buising and petechiae Neurologic: Generalized weakness, limited mobility Lab Review: Results for orders placed or performed during the hospital encounter of (from the past 48 hour(s)) POC GLUCOSE Collection Time: 05/14/17 12:31 PM # # Low-High Glucose, POC 149 (H) 70 - 100 MG/DL POC GLUCOSE Collection Time: 05/14/17 5:06 PM # # Low-High Glucose, POC 106 (H) 70 - 100 MG/DL POC GLUCOSE Collection Time: 05/14/17 8:45 PM # # Low-High Glucose, POC 92 70 - 100 MG/DL POC GLUCOSE Collection Time: 05/15/17 2:59 AM # # Low-High Glucose, POC 132 (H) 70 - 100 MG/DL COMPREHENSIVE METABOLIC PANEL Collection Time: 05/15/17 3:00 AM # # Low-High Sodium 141 137 - 147 MMOL/L Potassium 4.0 3.5 - 5.1 MMOL/L Chloride 111 (H) 98 - 110 MMOL/L Glucose 125 (H) 70 - 100 MG/DL Blood Urea Nitrogen 35 (H) 7 - 25 MG/DL Creatinine 0.84 0.4 - 1.00 MG/DL Calcium 8.7 8.5 - 10.6 MG/DL Total Protein 5.4 (L) 6.0 - 8.0 G/DL Total Bilirubin 1.2 0.3 - 1.2 MG/DL Albumin 2.5 (L) 3.5 - 5.0 G/DL Alk Phosphatase 135 (H) 25 - 110 U/L AST (SGOT) 9 7 - 40 U/L CO2 24 21 - 30 MMOL/L ALT (SGPT) 7 7 - 56 U/L Anion Gap 6 3 - 12 eGFR Non >60 >60 mL/min eGFR >60 >60 mL/min MAGNESIUM Collection Time: 05/15/17 3:00 AM # # Low-High Magnesium 2.0 1.6 - 2.6 mg/dL CBC AND DIFF Collection Time: 05/15/17 3:00 AM # # Low-High White Blood Cells 0.5 (LL) 4.5 - 11.0 K/UL RBC 2.23 (L) 4.0 - 5.0 M/UL Hemoglobin 6.6 (L) 12.0 - 15.0 GM/DL Hematocrit 18.9 (L) 36 - 45 % MCV 84.9 80 - 100 FL MCH 29.8 26 - 34 PG MCHC 35.1 32.0 - 36.0 G/DL RDW 15.2 (H) 11 - 15 % Platelet Count 16 (LL) 150 - 400 K/UL MPV 7.7 7 - 11 FL Neutrophils 3 (L) 41 - 77 % Lymphocytes 95 (H) 24 - 44 % Monocytes 2 (L) 4 - 12 % Eosinophils 0 0 - 5 % Basophils 0 0 - 2 % Absolute Neutrophil Count 0.00 (L) 1.8 - 7.0 K/UL Absolute Lymph Count 0.50 (L) 1.0 - 4.8 K/UL Absolute Monocyte Count 0.00 0 - 0.80 K/UL Absolute Eosinophil Count 0.00 0 - 0.45 K/UL Absolute Basophil Count 0.00 0 - 0.20 K/UL POC GLUCOSE Collection Time: 05/15/17 8:15 AM # # Low-High Glucose, POC 137 (H) 70 - 100 MG/DL POC GLUCOSE Collection Time: 05/15/17 12:40 PM # # Low-High Glucose, POC 176 (H) 70 - 100 MG/DL POC GLUCOSE Collection Time: 05/15/17 4:36 PM # # Low-High Glucose, POC 103 (H) 70 - 100 MG/DL POC GLUCOSE Collection Time: 05/15/17 8:53 PM # # Low-High Glucose, POC 131 (H) 70 - 100 MG/DL COMPREHENSIVE METABOLIC PANEL Collection Time: 05/16/17 3:20 AM # # Low-High Sodium 143 137 - 147 MMOL/L Potassium 4.1 3.5 - 5.1 MMOL/L Chloride 112 (H) 98 - 110 MMOL/L Glucose 129 (H) 70 - 100 MG/DL Blood Urea Nitrogen 33 (H) 7 - 25 MG/DL Creatinine 0.85 0.4 - 1.00 MG/DL Calcium 8.6 8.5 - 10.6 MG/DL Total Protein 5.4 (L) 6.0 - 8.0 G/DL Total Bilirubin 1.1 0.3 - 1.2 MG/DL Albumin 2.5 (L) 3.5 - 5.0 G/DL Alk Phosphatase 149 (H) 25 - 110 U/L AST (SGOT) 8 7 - 40 U/L CO2 25 21 - 30 MMOL/L ALT (SGPT) 7 7 - 56 U/L Anion Gap 6 3 - 12 eGFR Non >60 >60 mL/min eGFR >60 >60 mL/min MAGNESIUM Collection Time: 05/16/17 3:20 AM # # Low-High Magnesium 2.0 1.6 - 2.6 mg/dL CBC AND DIFF Collection Time: 05/16/17 3:20 AM # # Low-High White Blood Cells 0.5 (LL) 4.5 - 11.0 K/UL RBC 2.39 (L) 4.0 - 5.0 M/UL Hemoglobin 7.1 (L) 12.0 - 15.0 GM/DL Hematocrit 20.2 (L) 36 - 45 % MCV 84.6 80 - 100 FL MCH 29.6 26 - 34 PG MCHC 35.0 32.0 - 36.0 G/DL RDW 15.1 (H) 11 - 15 % Platelet Count 13 (LL) 150 - 400 K/UL MPV 7.8 7 - 11 FL Neutrophils 12 (L) 41 - 77 % Lymphocytes 84 (H) 24 - 44 % Monocytes 3 (L) 4 - 12 % Eosinophils 1 0 - 5 % Basophils 0 0 - 2 % Absolute Neutrophil Count 0.10 (L) 1.8 - 7.0 K/UL Absolute Lymph Count 0.40 (L) 1.0 - 4.8 K/UL Absolute Monocyte Count 0.00 0 - 0.80 K/UL Absolute Eosinophil Count 0.00 0 - 0.45 K/UL Absolute Basophil Count 0.00 0 - 0.20 K/UL POC GLUCOSE Collection Time: 05/16/17 3:24 AM # # Low-High Glucose, POC 130 (H) 70 - 100 MG/DL POC GLUCOSE Collection Time: 05/16/17 7:44 AM # # Low-High Glucose, POC 136 (H) 70 - 100 MG/DL Radiology Review: No pertinent radiology. Cristina Sy MD * Antonieta Leon RN - 05/16/2017 6:40 AM CDT Shift: 19 NEWS Score: 2, 2, 4 Pain: Denies pain Nutrition: ADA and Neutropenic, eating well. GI/: BM 05/15/2017, voiding orange to light ene urine. Activity: Up with assist x 1 Family: No family/visitors present. Last Shower: Bed bath 05/15/2017 New Events or Follow-up: * Yazmin Marsh RN - 05/15/2017 6:31 PM CDT Day Shift: NEWS Score: 0845: 1 1317: 0 1634: 0 Pain: none Nutrition: Neutropenic diet, tolerating, blood glucose within range GI/: 3 soft small BMs, adequate urine output but urine dark yellow in color Activity: SB up to commode Family: n/a Last Shower: 05/15 after urinary accident New Events or Follow-up: n/a * Ari Collazo MD - 05/15/2017 12:36 PM CDT Formatting of this note may be different from the original. 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 Hypoglycemia is recurrent in spite of D5 normal saline drip. Recurrent UTI Acute leukemia A. fib CKD stage III Recommendations: - Hypoglycemia has resolved. - well- controlled DM - continue lantus 12 units daily - continue novolog 7 units with meals - continue MDCF - plan to restart glimepiride lower dose at discharge. - She does not agree with us regarding restarting metformin concerning for her CKD. Now her Cr is normal and GFR > 60. 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 We will continue to follow discussed with Dr. Eng History of Present Illness Giselle Moraes is a 56 y.o. female with past medical history of A. fib, type 2 diabetes, CKD stage III, UTI, anxiety was admitted for suspicion for acute leukemia. Endocrinology was consulted for recurrent hypoglycemia. Patient is tired Eating well. No other complaitns Denies nausea , vomitng , abdominal pain Estimated Creatinine Clearance: 103.6 mL/min (based on Cr of 0.84). 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 No pertinent family history. Allergies Allergies Allergen Reactions Ciprofloxacin SEE COMMENTS Per Nephrology doctors. Levofloxacin SEE COMMENTS Per nephrology doctors. Nsaids (Non-Steroidal Anti-Inflammatory Drug) SEE COMMENTS Per nephrology doctors. Bactrim [Sulfamethoxazole-Trimethoprim] SEE COMMENTS Per Nephrology Doctors. Contrast Dye Iv, Iodine Containing [Iodinated Contrast- Oral And Iv Dye] SEE COMMENTS Per nephrology doctors. Review of Systems A comprehensive 14-point review of systems was negative with exception of fatigue Medications Scheduled Meds: acyclovir (ZOVIRAX) tablet 800 mg 800 mg Oral BID atenolol (TENORMIN) tablet 25 mg 25 mg Oral QDAY cefepime (MAXIPIME) 2 g/100 ml iso-osmotic IVPB 2 g Intravenous Q8H* diltiazem CD (cardIZEM CD) capsule 240 mg 240 mg Oral QDAY insulin aspart (NOVOLOG FLEXPEN) injection PEN 0-14 Units 0-14 Units Subcutaneous ACHS insulin aspart (NOVOLOG FLEXPEN) injection PEN 7 Units 7 Units Subcutaneous TID w/ meals insulin glargine (LANTUS SOLOSTAR) injection PEN 12 Units 12 Units Subcutaneous QDAY(12) posaconazole EC (NOXAFIL) tablet 300 mg 300 mg Oral QDAY w/breakfast Continuous Infusions: PRN and Respiratory Meds:acetaminophen Q6H PRN, ALPRAZolam BID PRN, alteplase PRN (Compliance Representative from Rx), hydrOXYzine TID PRN, loperamide PRN, LORazepam Q6H PRN, LORazepam injection Q6H PRN, magnesium sulfate 4 g/50 mL PRN, milk of magnesia ( CONC) Q6H PRN, polyethylene glycol 3350 QDAY PRN, potassium chloride PRN (Compliance Representative from Rx) OR potassium chloride SR PRN (Compliance Representative from Rx), saliva, synthetic PRN, senna BID PRN, sodium chloride 0.9% irrigation bottle PRN Physical Examination Vital Signs: Last Vital Signs: 24 Hour Range BP: 136/57 (05/15 845) Temp: 36.7 C (98 F) (05/15 845) Pulse: 86 (05/15 845) Respirations: 18 PER MINUTE (05/15 845) SpO2: 100 % (05/15 845) O2 Delivery: None (Room Air) (05/15 845) BP: (104-136)/(53-76) Temp: [36.3 C (97.3 F)-37 C (98.6 F)] Pulse: [51-90] Respirations: [16 PER MINUTE-20 PER MINUTE] SpO2: [99 %-100 %] O2 Delivery: None (Room Air) General appearance: alert, oriented, looking tired HENT: Dry oral mucosa, dried blood on lips Lungs: no wheezing, rhonchi, rales appreciated Heart: Regular rhythm, reg rate, with no murmur, rub, gallop Abdomen: soft, non-tender, non-distended, normoactive bowel sounds, Ext: No clubbing, cyanosis or edema Skin: no rashes/lesions Lab Review Point of Care Testing (Last 24 hours) Glucose: (!) 125 (05/15/17 0300) POC Glucose (Download): (!) 137 (05/15/17 0815) Recent Labs 05/13/17 0237 05/14/17 0300 05/15/17 030 NA 142 142 141 K 3.7 4.0 4.0 CL 108 110 111* CO2 27 25 24 GAP 7 7 6 BUN 32* 36* 35* CR 0.78 0.87 0.84 GLU 122* 134* 125* CA 8.5 8.6 8.7 ALBUMIN 2.4* 2.5* 2.5* MG 2.1 1.9 2.0 Recent Labs 05/13/17 0237 05/14/17 0300 05/15/17 0300 WBC 0.8* 0.8* 0.5* HGB 7.2* 6.8* 6.6* HCT 20.0* 19.1* 18.9* PLTCT 16* 10* 16* AST 8 8 9 ALT 4* 7 7 ALKPHOS 116* 130* 135* Estimated Creatinine Clearance: 103.6 mL/min (based on Cr of 0.84). Vitals: 05/12/17 1100 05/13/17 0908 05/15/17 0413 Weight: 132 kg (291 lb) 131.7 kg (290 lb 6.4 oz) 132.4 kg (291 lb 12.8 oz) Thyroid Studies No results found for: TSH, FREET4, FREEINDEX No results found for: FREET3, V6BBPHCPI, THYBINDGLB Ari Collazo MD Endocrinology Fellow [id number] [phone] * Cristina Sy MD - 05/15/2017 9:05 AM CDT Formatting of this note may be different from the original. 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 Blood transfusions today - Previously on anticoagulation with apixaban for Atrial fibrillation, will hold for now with thrombocytopenia - Anticoagulation with lovenox for DVT ppx contraindicated due to thrombocytopenia, SCD's when on bed FEN/Renal: - Monitor electrolytes, will be high goal replacement with h/o atrial fibrillation. K, Mg replacements today - Close monitoring of fluid status - Monitor I/O and daily weights to assess for need for prn lasix. ID: Afebrile, Temperature up to 100.2 on 05/09/17 - Presents with UTI and fever - Urine cx from [facility] 04/23: + E.Coli resistant to ampicillin, Bactrim, Nitrofurantoin. Intermediate resistance to gent and Unasyn. Susceptible to ceftriaxone, zosyn, meropenem, cipro and aztreonam - Blood cx x [address] [facility] 04/23: NGTD - Cefepime continues, had vancomycin and daptomycin on 04/24-04/25, discontinued, restart vanco if febrile. Will plan to continue until neutropenia resolves - Has urinary catheter in place, did have urinary retention after trying to remove, will try again in one week after finishing antibiotics. - On prophylaxis with posaconazole (due to planned midostaurin) and acyclovir. D/c fermin as no midostaurin this cycle - for any neutropenic fever, will check chest CT as well given risk of pneumonia with poor resp effort due to weakness/obesity GI: - No nausea, vomiting. Had multiple BM 05/03/17. Patient felt better after BM. C.diff negative - Low albumin. Liver functions normal - Obese, BMT>40 - Standing weights difficult due to patient factors - Soft stools 05/14 Endo: - Has type II DM, on glimiperide has been discontinued on admission - Had persistent low blood sugars, now blood sugars better - Endocrinology consultation obtained and appreciate recommendations; On lantus 12 units, 7 units Novolog with meals and MDCF CVS: - H/o atrial fibrillation, rate controlled. 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 Atenolol held 05/02/17 night due to 2 sec pause. Re started on 05/05 - Mild moderate - Will hold COUNTER [employer] ASSEMBLER apixaban with thrombocytopenia - Cardiology opinion appreciated, 2d Echo- normal EF 60%. : Chronic cystitis, gonzalez placed for urinary retention, d/c 05/12. Voiding without difficulty Derm: Facial hyperpigmentation on the right side of face. Derm to evaluate. Benign lesions, recommended topical tx only Psych/Social: - On alprazolam for anxiety, currently continued at low dose - Lives in [facility], , currently on disability, son lives in [facility] - Need to schedule family meeting to discuss future treatment course, had first discussion with and family friend on 04/28. PT/OT: PT/OT following Subjective: Giselle Moraes is a 56 y.o. female. Feeling more tired today, was awake a lot during the night urinating, also receiving lots of replacements Review of Systems: Constitutional: + fatigue, anorexia HEENT: + new mouth sore on right cheek - RESOLVED Respiratory: mild SOB with moving around. 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 Psych: + anxiety Objective: Medications: Scheduled Meds: acyclovir (ZOVIRAX) tablet 800 mg 800 mg Oral BID atenolol (TENORMIN) tablet 25 mg 25 mg Oral QDAY cefepime (MAXIPIME) 2 g/100 ml iso-osmotic IVPB 2 g Intravenous Q8H* diltiazem CD (cardIZEM CD) capsule 240 mg 240 mg Oral QDAY insulin aspart (NOVOLOG FLEXPEN) injection PEN 0-14 Units 0-14 Units Subcutaneous ACHS insulin aspart (NOVOLOG FLEXPEN) injection PEN 7 Units 7 Units Subcutaneous TID w/ meals insulin glargine (LANTUS SOLOSTAR) injection PEN 12 Units 12 Units Subcutaneous QDAY(12) posaconazole EC (NOXAFIL) tablet 300 mg 300 mg Oral QDAY w/breakfast Continuous Infusions: PRN and Respiratory Meds:acetaminophen Q6H PRN, ALPRAZolam BID PRN, alteplase PRN (Compliance Representative from Rx), hydrOXYzine TID PRN, loperamide PRN, LORazepam Q6H PRN, LORazepam injection Q6H PRN, magnesium sulfate 4 g/50 mL PRN, milk of magnesia ( CONC) Q6H PRN, polyethylene glycol 3350 QDAY PRN, potassium chloride PRN (Compliance Representative from Rx) OR potassium chloride SR PRN (Compliance Representative from Rx), saliva, synthetic PRN, senna BID PRN, sodium chloride 0.9% irrigation bottle PRN Vital Signs: Last Filed Vital Signs: 24 Hour Range BP: 136/57 (05/15 845) Temp: 36.7 C (98 F) (05/15 845) Pulse: 86 (05/15 845) Respirations: 18 PER MINUTE (05/15 845) SpO2: 100 % (05/15 845) O2 Delivery: None (Room Air) (05/15 845) BP: (93-136)/(53-83) Temp: [36.3 C (97.3 F)-37 C (98.6 F)] Pulse: [51-102] Respirations: [14 PER MINUTE-20 PER MINUTE] SpO2: [97 %-100 %] O2 Delivery: None (Room Air) Intensity Pain Scale 0-10 (Pain 1): (not recorded) Vitals: 05/12/17 1100 05/13/17 0908 05/15/17 0413 Weight: 132 kg (291 lb) 131.7 kg (290 lb 6.4 oz) 132.4 kg (291 lb 12.8 oz) Intake/Output Summary: (Last 24 hours) Intake/Output Summary (Last 24 hours) at 05/15/17 0905 Last data filed at 05/15/17 0818 Gross per 24 hour Intake 1460 ml Output 1625 ml Net -165 ml Physical Exam: Performance Status (Karnofsky): 60% Requires some assistance, but able to care for most of needs VS reviewed General: Alert, cooperative, no distress, appears stated age/ Morbidly obese Head: Normocephalic, without obvious abnormality, atraumatic Eyes:Anicteric sclera OP: + wet purpura right buccal mucosa- RESOLVED, No lesions Lungs: CTAB no rales or wheezes Heart: Irregular rhythm Abdomen: Soft, non-tender. Bowel sounds normal. No masses. No organomegaly. Extremities: Trace edema to feet Skin: Facial hyperpigmentation on right cheek, long standing per patient. + buising and petechiae Neurologic: Generalized weakness, limited mobility Lab Review: Results for orders placed or performed during the hospital encounter of (from the past 48 hour(s)) POC GLUCOSE Collection Time: 05/13/17 12:22 PM # # Low-High Glucose, POC 160 (H) 70 - 100 MG/DL RVP VIRAL PANEL PCR Collection Time: 05/13/17 2:35 PM # # Low-High Specimen Source NASAL WASH Adenovirus NOT DETECTED Coronavirus 229E NOT DETECTED Coronavirus HKU1 NOT DETECTED Coronavirus NL63 NOT DETECTED Coronavirus OC43 NOT DETECTED Human Metapneumovirus NOT DETECTED Human Rhinovirus/ENTEROVIRUS NOT DETECTED Influenza A H1N1 2009 NOT DETECTED Influenza A H1 NOT DETECTED Influenza A H3 NOT DETECTED Influenza B NOT DETECTED Parainfluenza 1 NOT DETECTED Parainfluenza 2 NOT DETECTED Parainfluenza 3 NOT DETECTED Parainfluenza 4 NOT DETECTED RSV NOT DETECTED Bordetella Pertussis NOT DETECTED Chlamydophila Pneumoniae NOT DETECTED Mycoplasma Pneumoniae NOT DETECTED POC GLUCOSE Collection Time: 05/13/17 4:47 PM # # Low-High Glucose, POC 97 70 - 100 MG/DL POC GLUCOSE Collection Time: 05/13/17 8:24 PM # # Low-High Glucose, POC 110 (H) 70 - 100 MG/DL COMPREHENSIVE METABOLIC PANEL Collection Time: 05/14/17 3:00 AM # # Low-High Sodium 142 137 - 147 MMOL/L Potassium 4.0 3.5 - 5.1 MMOL/L Chloride 110 98 - 110 MMOL/L Glucose 134 (H) 70 - 100 MG/DL Blood Urea Nitrogen 36 (H) 7 - 25 MG/DL Creatinine 0.87 0.4 - 1.00 MG/DL Calcium 8.6 8.5 - 10.6 MG/DL Total Protein 5.3 (L) 6.0 - 8.0 G/DL Total Bilirubin 1.1 0.3 - 1.2 MG/DL Albumin 2.5 (L) 3.5 - 5.0 G/DL Alk Phosphatase 130 (H) 25 - 110 U/L AST (SGOT) 8 7 - 40 U/L CO2 25 21 - 30 MMOL/L ALT (SGPT) 7 7 - 56 U/L Anion Gap 7 3 - 12 eGFR Non >60 >60 mL/min eGFR >60 >60 mL/min MAGNESIUM Collection Time: 05/14/17 3:00 AM # # Low-High Magnesium 1.9 1.6 - 2.6 mg/dL CBC AND DIFF Collection Time: 05/14/17 3:00 AM # # Low-High White Blood Cells 0.8 (LL) 4.5 - 11.0 K/UL RBC 2.28 (L) 4.0 - 5.0 M/UL Hemoglobin 6.8 (L) 12.0 - 15.0 GM/DL Hematocrit 19.1 (L) 36 - 45 % MCV 83.7 80 - 100 FL MCH 30.0 26 - 34 PG MCHC 35.8 32.0 - 36.0 G/DL RDW 15.8 (H) 11 - 15 % Platelet Count 10 (LL) 150 - 400 K/UL MPV 7.8 7 - 11 FL Neutrophils 1 (L) 41 - 77 % Lymphocytes 97 (H) 24 - 44 % Monocytes 1 (L) 4 - 12 % Eosinophils 0 0 - 5 % Basophils 1 0 - 2 % Absolute Neutrophil Count 0.00 (L) 1.8 - 7.0 K/UL Absolute Lymph Count 0.80 (L) 1.0 - 4.8 K/UL Absolute Monocyte Count 0.00 0 - 0.80 K/UL Absolute Eosinophil Count 0.00 0 - 0.45 K/UL Absolute Basophil Count 0.00 0 - 0.20 K/UL POC GLUCOSE Collection Time: 05/14/17 3:35 AM # # Low-High Glucose, POC 142 (H) 70 - 100 MG/DL TYPE & CROSSMATCH Collection Time: 05/14/17 4:23 AM # # Low-High Units Ordered 2 Crossmatch Expires 05/17/2017 Record Check FOUND ABO/RH(D) A POS Antibody Screen NEG Electronic Crossmatch YES Unit Number [id number] Blood Component Type RBC,ADSOL,LEUKO REDUCED,IRRADIATED Unit Division 0 Status OF Unit TRANSFUSED Transfusion Status OK TO TRANSFUSE Crossmatch Result COMPATIBLE,ELECTRONIC Unit Number [id number] Blood Component Type RBC,ADSOL,LEUKO REDUCED,IRRADIATED Unit Division 0 Status OF Unit ISSUED Transfusion Status OK TO TRANSFUSE Crossmatch Result COMPATIBLE,ELECTRONIC PREPARE APHERESIS PLATELETS Collection Time: 05/14/17 4:23 AM # # Low-High Units Ordered 1 Unit Number [id number] Blood Component Type APHERESIS PLT,LEUKO REDUCED,IRRADIATED,1ST CONT. Unit Division 0 Status OF Unit TRANSFUSED Transfusion Status OK TO TRANSFUSE POC GLUCOSE Collection Time: 05/14/17 7:51 AM # # Low-High Glucose, POC 143 (H) 70 - 100 MG/DL POC GLUCOSE Collection Time: 05/14/17 12:31 PM # # Low-High Glucose, POC 149 (H) 70 - 100 MG/DL POC GLUCOSE Collection Time: 05/14/17 5:06 PM # # Low-High Glucose, POC 106 (H) 70 - 100 MG/DL POC GLUCOSE Collection Time: 05/14/17 8:45 PM # # Low-High Glucose, POC 92 70 - 100 MG/DL POC GLUCOSE Collection Time: 05/15/17 2:59 AM # # Low-High Glucose, POC 132 (H) 70 - 100 MG/DL COMPREHENSIVE METABOLIC PANEL Collection Time: 05/15/17 3:00 AM # # Low-High Sodium 141 137 - 147 MMOL/L Potassium 4.0 3.5 - 5.1 MMOL/L Chloride 111 (H) 98 - 110 MMOL/L Glucose 125 (H) 70 - 100 MG/DL Blood Urea Nitrogen 35 (H) 7 - 25 MG/DL Creatinine 0.84 0.4 - 1.00 MG/DL Calcium 8.7 8.5 - 10.6 MG/DL Total Protein 5.4 (L) 6.0 - 8.0 G/DL Total Bilirubin 1.2 0.3 - 1.2 MG/DL Albumin 2.5 (L) 3.5 - 5.0 G/DL Alk Phosphatase 135 (H) 25 - 110 U/L AST (SGOT) 9 7 - 40 U/L CO2 24 21 - 30 MMOL/L ALT (SGPT) 7 7 - 56 U/L Anion Gap 6 3 - 12 eGFR Non >60 >60 mL/min eGFR >60 >60 mL/min MAGNESIUM Collection Time: 05/15/17 3:00 AM # # Low-High Magnesium 2.0 1.6 - 2.6 mg/dL CBC AND DIFF Collection Time: 05/15/17 3:00 AM # # Low-High White Blood Cells 0.5 (LL) 4.5 - 11.0 K/UL RBC 2.23 (L) 4.0 - 5.0 M/UL Hemoglobin 6.6 (L) 12.0 - 15.0 GM/DL Hematocrit 18.9 (L) 36 - 45 % MCV 84.9 80 - 100 FL MCH 29.8 26 - 34 PG MCHC 35.1 32.0 - 36.0 G/DL RDW 15.2 (H) 11 - 15 % Platelet Count 16 (LL) 150 - 400 K/UL MPV 7.7 7 - 11 FL Neutrophils 3 (L) 41 - 77 % Lymphocytes 95 (H) 24 - 44 % Monocytes 2 (L) 4 - 12 % Eosinophils 0 0 - 5 % Basophils 0 0 - 2 % Absolute Neutrophil Count 0.00 (L) 1.8 - 7.0 K/UL Absolute Lymph Count 0.50 (L) 1.0 - 4.8 K/UL Absolute Monocyte Count 0.00 0 - 0.80 K/UL Absolute Eosinophil Count 0.00 0 - 0.45 K/UL Absolute Basophil Count 0.00 0 - 0.20 K/UL POC GLUCOSE Collection Time: 05/15/17 8:15 AM # # Low-High Glucose, POC 137 (H) 70 - 100 MG/DL Radiology Review: No pertinent radiology. Cristina Sy MD * Antonieta Leon RN - 05/15/2017 7:03 AM CDT Shift: NEWS Score: 2, 2, 2, 3, 3 Pain: Denies pain Nutrition: Neutropenic, ADA diet. Eating adequately, denies nausea GI/: BM 05/14/2017, voiding light ene color urine, voiding frequently. Activity: Up with assist x 1, walker Family: No family/visitors present Last Shower: 05/14/2017 New Events or Follow-up: * Maritza Yanez RN - 05/14/2017 6:59 PM CDT Shift: 7a-7p NEWS Score: 1, 0, 0 Pain: Pt has had no c/o pain this shift. Nutrition: ADA and neutropenic diet. Pt hasn't had much intake, but has attempted to eat intermittently. GI/: Voids celar yellow urine. LBM: 05/14. No nausea reported Activity: Up with 1 and a walker. Fairly steady gait. No dizziness reported upon standing. Pt got up once to shower. Family: No visitors this shift. Last Shower: 05/14 New Events or Follow-up: Pt received blood, plts, mag, and potassium today. * Arnold Sparks, PT - 05/14/2017 2:32 PM CDT PHYSICAL THERAPY NOTE PT met with patient this morning for physical therapy. Patient declined wanting to work with physical therapist at this time stating she needs to use the bathroom, is going to get blood soon and is just overall fatigued from getting up so frequently to use the commode. PT and patient had long discussion trying to create a mobility plan moving forward. Patient states she was not very active to begin with prior to diagnosis and she feels that this PT is pushing her to be more active than even prior to hospitalization. This PT tried to explain the importance of maintaining activity routine to avoid any risk for falling or even loss of strength and inability to return home safely. While patient states she understands this, she tangents the conversation to reasons she cannot do certain functional tasks or medical issues that are limiting her ability to participate. PT did not push patient to perform any therapy today giving the patient more control over the conversation and session. PT challenged patient to think over the weekend about what she would truly like to work on next week and how "we" as a team, can meet her goal of returning home safely. PT to follow up with patient on Wednesday. Therapist: Arnold Sparks DPT Date: 05/14/2017 * Ari Collazo MD - 05/14/2017 1:17 PM CDT Formatting of this note may be different from the original. Endocrinology progress note Today's Date: 05/14/2017 Admission Date: 04/24/2017 Reason for this consultation: Assessment: Type 2 diabetes mellitus: A1c 5.2 04/2017 [employer] regimen: Glimepiride 4 mg daily Hypoglycemic episodes on this regimen: Unknown Follows up with for diabetes management: PCP Diabetic-complications assessment: Retinopathy: Last eye exam 2 years back, no retinopathy Peripheral neuropathy: Yes Autonomic neuropathy: No Nephropathy: Yes Macrovascular complications: No Risk factor assessment: Last lipid profile -none in chart On ACEi/ARB?:No On Statin?: No Recurrent hypoglycemia: Last dose of glimepiride 4 mg was on 04/23 in the morning, at home. Hypoglycemia is recurrent in spite of D5 normal saline drip. Recurrent UTI Acute leukemia A. fib CKD stage III Recommendations: - Hypoglycemia has resolved. - well- controlled DM - continue lantus 12 units daily - Decrease novolog 7 units with meals - continue [facility] - plan to restart glimepiride lower dose at discharge. - She does not agree with us regarding restarting metformin concerning for her CKD. Now her Cr is normal and GFR > 60. 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 We will continue to follow discussed with Dr. Eng History of Present Illness Giselle Moraes is a 56 y.o. female with past medical history of A. fib, type 2 diabetes, CKD stage III, UTI, anxiety was admitted for suspicion for acute leukemia. Endocrinology was consulted for recurrent hypoglycemia. Patient is tired Eating well. States that food doesn't taste well. Denies nausea , vomitng , abdominal pain Estimated Creatinine Clearance: 99.7 mL/min (based on Cr of 0.87). 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 No pertinent family history. Allergies Allergies Allergen Reactions Ciprofloxacin SEE COMMENTS Per Nephrology doctors. Levofloxacin SEE COMMENTS Per nephrology doctors. Nsaids (Non-Steroidal Anti-Inflammatory Drug) SEE COMMENTS Per nephrology doctors. Bactrim [Sulfamethoxazole-Trimethoprim] SEE COMMENTS Per Nephrology Doctors. Contrast Dye Iv, Iodine Containing [Iodinated Contrast- Oral And Iv Dye] SEE COMMENTS Per nephrology doctors. Review of Systems A comprehensive 14-point review of systems was negative with exception of fatigue Medications Scheduled Meds: acyclovir (ZOVIRAX) tablet 800 mg 800 mg Oral BID atenolol (TENORMIN) tablet 25 mg 25 mg Oral QDAY cefepime (MAXIPIME) 2 g/100 ml iso-osmotic IVPB 2 g Intravenous Q8H* diltiazem CD (cardIZEM CD) capsule 240 mg 240 mg Oral QDAY insulin aspart (NOVOLOG FLEXPEN) injection PEN 0-14 Units 0-14 Units Subcutaneous ACHS insulin aspart (NOVOLOG FLEXPEN) injection PEN 7 Units 7 Units Subcutaneous TID w/ meals insulin glargine (LANTUS SOLOSTAR) injection PEN 12 Units 12 Units Subcutaneous QDAY(12) posaconazole EC (NOXAFIL) tablet 300 mg 300 mg Oral QDAY w/breakfast Continuous Infusions: PRN and Respiratory Meds:acetaminophen Q6H PRN, ALPRAZolam BID PRN, alteplase PRN (Compliance Representative from Rx), hydrOXYzine TID PRN, loperamide PRN, LORazepam Q6H PRN, LORazepam injection Q6H PRN, magnesium sulfate 4 g/50 mL PRN, milk of magnesia ( CONC) Q6H PRN, polyethylene glycol 3350 QDAY PRN, potassium chloride PRN (Compliance Representative from Rx) OR potassium chloride SR PRN (Compliance Representative from Rx), saliva, synthetic PRN, senna BID PRN, sodium chloride 0.9% irrigation bottle PRN Physical Examination Vital Signs: Last Vital Signs: 24 Hour Range BP: 118/67 (05/14 1233) Temp: 36.9 C (98.5 F) (05/14 1233) Pulse: 83 (05/14 1233) Respirations: 16 PER MINUTE (05/14 1233) SpO2: 100 % (05/14 123) O2 Delivery: None (Room Air) (05/14 1233) BP: (93-132)/(57-83) Temp: [36.4 C (97.6 F)-37.3 C (99.1 F)] Pulse: [76-102] Respirations: [14 PER MINUTE-20 PER MINUTE] SpO2: [97 %-100 %] O2 Delivery: None (Room Air) General appearance: alert, oriented, looking tired HENT: Dry oral mucosa, dried blood on lips Lungs: no wheezing, rhonchi, rales appreciated Heart: Regular rhythm, reg rate, with no murmur, rub, gallop Abdomen: soft, non-tender, non-distended, normoactive bowel sounds, Ext: No clubbing, cyanosis or edema Skin: no rashes/lesions Lab Review Point of Care Testing (Last 24 hours) Glucose: (!) 134 (05/14/17 0300) POC Glucose (Download): (!) 149 (05/14/17 1231) Recent Labs 05/12/17 0410 05/13/17 0237 05/14/17 0300 NA 140 142 142 K 4.2 3.7 4.0 CL 107 108 110 CO2 28 27 25 GAP 5 7 7 BUN 28* 32* 36* CR 0.56 0.78 0.87 GLU 129* 122* 134* CA 8.5 8.5 8.6 ALBUMIN 2.5* 2.4* 2.5* MG 1.8 2.1 1.9 Recent Labs 05/12/17 0410 05/13/17 0237 05/14/17 0300 WBC 0.5* 0.8* 0.8* HGB 7.3* 7.2* 6.8* HCT 21.6* 20.0* 19.1* PLTCT 24* 16* 10* AST 7 8 8 ALT 6* 4* 7 ALKPHOS 90 116* 130* Estimated Creatinine Clearance: 99.7 mL/min (based on Cr of 0.87). Vitals: 05/10/17 1500 05/12/17 1100 05/13/17 0908 Weight: 118.6 kg (261 lb 8 oz) 132 kg (291 lb) 131.7 kg (290 lb 6.4 oz) Thyroid Studies No results found for: TSH, FREET4, FREEINDEX No results found for: FREET3, [id number], THYBINDGLB Ari Collazo MD Endocrinology Fellow [id number] [phone] Associated attestation - Karla Eng MD - 05/14/2017 10:03 PM CDT Formatting of this note may be different from the original. ATTESTATION I personally performed the carrizales portions of the E/M visit, discussed case with resident and concur with resident documentation of history, physical exam, assessment, and treatment plan unless otherwise noted. Staff name: Karla Eng MD Date: 05/14/2017 * Cristina Sy MD - 05/14/2017 11:14 AM CDT Formatting of this note may be different from the original. 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 Cardiology consulted. - Monitor TLS labs and DIC labs daily - Start 7+3 04/28/2017, FLT3 ITD positive, has not gotten midostaurin yet, so will plan day 14 bone marrow - Day 17 of 7+3 - s/p LP with IT chemo today as prophy given high WBC at presentation - Flow negative, cytology negative BM hypocellular with 1% blasts, flow with 0.04% neoplastic blasts Heme: - Pancytopenia due to chemotherapy, monitor for transfusion needs to keep Hgb>7 and platelets >10K. Blood, platelets transfusions today - Previously on anticoagulation with apixaban for Atrial fibrillation, will hold for now with thrombocytopenia - Anticoagulation with lovenox for DVT ppx contraindicated due to thrombocytopenia, SCD's when on bed FEN/Renal: - Creatinine improved. - Appreciate renal recommendations - Monitor electrolytes, will be high goal replacement with h/o atrial fibrillation. K, Mg replacements today - Close monitoring of fluid status - Monitor I/O and daily weights to assess for need for prn lasix. ID: Afebrile, Temperature up to 100.2 on 05/09/17 - Presents with UTI and fever - Urine cx from [facility] 04/23: + E.Coli resistant to ampicillin, Bactrim, Nitrofurantoin. Intermediate resistance to gent and Unasyn. Susceptible to ceftriaxone, zosyn, meropenem, cipro and aztreonam - Blood cx x 2 from [facility] 04/23: NGTD - Cefepime continues, had vancomycin and daptomycin on 04/24-04/25, discontinued, restart vanco if febrile. Will plan to continue until neutropenia resolves - Has urinary catheter in place, did have urinary retention after trying to remove, will try again in one week after finishing antibiotics. - On prophylaxis with posaconazole (due to planned midostaurin) and acyclovir. D/c fermin as no midostaurin this cycle - for any neutropenic fever, will check chest CT as well given risk of pneumonia with poor resp effort due to weakness/obesity GI: - No nausea, vomiting. Had multiple BM 05/03/17. Patient felt better after BM. C.diff negative - Low albumin. Liver functions normal - Obese, BMT>40 - Standing weights difficult due to patient factors - Soft stools 05/14 Endo: - Has type II DM, on glimiperide has been discontinued on admission - Had persistent low blood sugars, now blood sugars better - Endocrinology consultation obtained and appreciate recommendations; On lantus 12 units, 7 units Novolog with meals and [facility] CVS: - H/o atrial fibrillation, rate controlled. 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 Atenolol held 05/02/17 night due to 2 sec pause. Re started on 05/05 - Mild moderate - Will hold apixaban - Cardiology opinion appreciated, 2d Echo- normal EF 60%. : Chronic cystitis, gonzalez placed for urinary retention, d/c 05/12. Voiding without difficulty Derm: Facial hyperpigmentation on the right side of face. Derm to evaluate. Benign lesions, recommended topical tx only Psych/Social: - On alprazolam for anxiety, currently continued at low dose - Lives in [place], , currently on disability, son lives in [facility] - Need to schedule family meeting to discuss future treatment course, had first discussion with and family friend on 04/28. PT/OT: Mobility is a big issue. Subjective: Giselle Moraes is a 56 y.o. female. Pt feeling more tired today, has not been very active. Soft stools. Voiding well. Review of Systems: Constitutional: + fatigue, anorexia HEENT: + new mouth sore on right cheek Respiratory: mild SOB with moving around. 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 Psych: + anxiety Objective: Medications: Scheduled Meds: acyclovir (ZOVIRAX) tablet 800 mg 800 mg Oral BID atenolol (TENORMIN) tablet 25 mg 25 mg Oral QDAY cefepime (MAXIPIME) 2 g/100 ml iso-osmotic IVPB 2 g Intravenous Q8H* diltiazem CD (cardIZEM CD) capsule 240 mg 240 mg Oral QDAY insulin aspart (NOVOLOG FLEXPEN) injection PEN 0-14 Units 0-14 Units Subcutaneous ACHS insulin aspart (NOVOLOG FLEXPEN) injection PEN 7 Units 7 Units Subcutaneous TID w/ meals insulin glargine (LANTUS SOLOSTAR) injection PEN 12 Units 12 Units Subcutaneous QDAY(12) posaconazole EC (NOXAFIL) tablet 300 mg 300 mg Oral QDAY w/breakfast Continuous Infusions: PRN and Respiratory Meds:acetaminophen Q6H PRN, ALPRAZolam BID PRN, alteplase PRN (Compliance Representative from Rx), hydrOXYzine TID PRN, loperamide PRN, LORazepam Q6H PRN, LORazepam injection Q6H PRN, magnesium sulfate 4 g/50 mL PRN, milk of magnesia ( CONC) Q6H PRN, polyethylene glycol 3350 QDAY PRN, potassium chloride PRN (Compliance Representative from Rx) OR potassium chloride SR PRN (Compliance Representative from Rx), saliva, synthetic PRN, senna BID PRN, sodium chloride 0.9% irrigation bottle PRN Vital Signs: Last Filed Vital Signs: 24 Hour Range BP: 112/63 (05/14 915) Temp: 36.7 C (98.1 F) (05/14 915) Pulse: 102 (05/14 915) Respirations: 14 PER MINUTE (05/14 915) SpO2: 97 % (05/14 915) O2 Delivery: None (Room Air) (05/14 915) BP: (104-128)/(57-75) Temp: [36.4 C (97.6 F)-37.3 C (99.1 F)] Pulse: [76-102] Respirations: [14 PER MINUTE-20 PER MINUTE] SpO2: [97 %-100 %] O2 Delivery: None (Room Air) Intensity Pain Scale 0-10 (Pain 1): (not recorded) Vitals: 05/10/17 1500 05/12/17 1100 05/13/17 0908 Weight: 118.6 kg (261 lb 8 oz) 132 kg (291 lb) 131.7 kg (290 lb 6.4 oz) Intake/Output Summary: (Last 24 hours) Intake/Output Summary (Last 24 hours) at 05/14/17 1114 Last data filed at 05/14/17 1006 Gross per 24 hour Intake 1674 ml Output 1000 ml Net 674 ml Physical Exam: Performance Status (Karnofsky): 50% Requires considerable assistance and frequent medical care VS reviewed General: Alert, cooperative, no distress, appears stated age/ Morbidly obese Head: Normocephalic, without obvious abnormality, atraumatic Eyes:Anicteric sclera OP: + wet purpura right buccal mucosa Lungs: CTAB but decreased at bases Heart: Irregular rhythm Abdomen: Soft, non-tender. Bowel sounds normal. No masses. No organomegaly. Extremities: Trace edema to feet Skin: Facial hyperpigmentation on right cheek, long standing per patient. + buising and petechiae Neurologic: Generalized weakness, limited mobility Lab Review: Results for orders placed or performed during the hospital encounter of (from the past 48 hour(s)) POC GLUCOSE Collection Time: 05/12/17 1:19 PM # # Low-High Glucose, POC 209 (H) 70 - 100 MG/DL POC GLUCOSE Collection Time: 05/12/17 5:19 PM # # Low-High Glucose, POC 89 70 - 100 MG/DL POC GLUCOSE Collection Time: 05/12/17 9:09 PM # # Low-High Glucose, POC 145 (H) 70 - 100 MG/DL POC GLUCOSE Collection Time: 05/13/17 2:35 AM # # Low-High Glucose, POC 134 (H) 70 - 100 MG/DL COMPREHENSIVE METABOLIC PANEL Collection Time: 05/13/17 2:37 AM # # Low-High Sodium 142 137 - 147 MMOL/L Potassium 3.7 3.5 - 5.1 MMOL/L Chloride 108 98 - 110 MMOL/L Glucose 122 (H) 70 - 100 MG/DL Blood Urea Nitrogen 32 (H) 7 - 25 MG/DL Creatinine 0.78 0.4 - 1.00 MG/DL Calcium 8.5 8.5 - 10.6 MG/DL Total Protein 5.3 (L) 6.0 - 8.0 G/DL Total Bilirubin 1.2 0.3 - 1.2 MG/DL Albumin 2.4 (L) 3.5 - 5.0 G/DL Alk Phosphatase 116 (H) 25 - 110 U/L AST (SGOT) 8 7 - 40 U/L CO2 27 21 - 30 MMOL/L ALT (SGPT) 4 (L) 7 - 56 U/L Anion Gap 7 3 - 12 eGFR Non >60 >60 mL/min eGFR >60 >60 mL/min MAGNESIUM Collection Time: 05/13/17 2:37 AM # # Low-High Magnesium 2.1 1.6 - 2.6 mg/dL CBC AND DIFF Collection Time: 05/13/17 2:37 AM # # Low-High White Blood Cells 0.8 (LL) 4.5 - 11.0 K/UL RBC 2.37 (L) 4.0 - 5.0 M/UL Hemoglobin 7.2 (L) 12.0 - 15.0 GM/DL Hematocrit 20.0 (L) 36 - 45 % MCV 84.2 80 - 100 FL MCH 30.2 26 - 34 PG MCHC 35.9 32.0 - 36.0 G/DL RDW 16.0 (H) 11 - 15 % Platelet Count 16 (LL) 150 - 400 K/UL MPV 8.6 7 - 11 FL Neutrophils 3 (L) 41 - 77 % Lymphocytes 97 (H) 24 - 44 % Monocytes 0 (L) 4 - 12 % Eosinophils 0 0 - 5 % Basophils 0 0 - 2 % Absolute Neutrophil Count 0.00 (L) 1.8 - 7.0 K/UL Absolute Lymph Count 0.70 (L) 1.0 - 4.8 K/UL Absolute Monocyte Count 0.00 0 - 0.80 K/UL Absolute Eosinophil Count 0.00 0 - 0.45 K/UL Absolute Basophil Count 0.00 0 - 0.20 K/UL POC GLUCOSE Collection Time: 05/13/17 7:47 AM # # Low-High Glucose, POC 133 (H) 70 - 100 MG/DL POC GLUCOSE Collection Time: 05/13/17 12:22 PM # # Low-High Glucose, POC 160 (H) 70 - 100 MG/DL RVP VIRAL PANEL PCR Collection Time: 05/13/17 2:35 PM # # Low-High Specimen Source NASAL WASH Adenovirus NOT DETECTED Coronavirus 229E NOT DETECTED Coronavirus HKU1 NOT DETECTED Coronavirus NL63 NOT DETECTED Coronavirus OC43 NOT DETECTED Human Metapneumovirus NOT DETECTED Human Rhinovirus/ENTEROVIRUS NOT DETECTED Influenza A H1N1 2009 NOT DETECTED Influenza A H1 NOT DETECTED Influenza A H3 NOT DETECTED Influenza B NOT DETECTED Parainfluenza 1 NOT DETECTED Parainfluenza 2 NOT DETECTED Parainfluenza 3 NOT DETECTED Parainfluenza 4 NOT DETECTED RSV NOT DETECTED Bordetella Pertussis NOT DETECTED Chlamydophila Pneumoniae NOT DETECTED Mycoplasma Pneumoniae NOT DETECTED POC GLUCOSE Collection Time: 05/13/17 4:47 PM # # Low-High Glucose, POC 97 70 - 100 MG/DL POC GLUCOSE Collection Time: 05/13/17 8:24 PM # # Low-High Glucose, POC 110 (H) 70 - 100 MG/DL COMPREHENSIVE METABOLIC PANEL Collection Time: 05/14/17 3:00 AM # # Low-High Sodium 142 137 - 147 MMOL/L Potassium 4.0 3.5 - 5.1 MMOL/L Chloride 110 98 - 110 MMOL/L Glucose 134 (H) 70 - 100 MG/DL Blood Urea Nitrogen 36 (H) 7 - 25 MG/DL Creatinine 0.87 0.4 - 1.00 MG/DL Calcium 8.6 8.5 - 10.6 MG/DL Total Protein 5.3 (L) 6.0 - 8.0 G/DL Total Bilirubin 1.1 0.3 - 1.2 MG/DL Albumin 2.5 (L) 3.5 - 5.0 G/DL Alk Phosphatase 130 (H) 25 - 110 U/L AST (SGOT) 8 7 - 40 U/L CO2 25 21 - 30 MMOL/L ALT (SGPT) 7 7 - 56 U/L Anion Gap 7 3 - 12 eGFR Non >60 >60 mL/min eGFR >60 >60 mL/min MAGNESIUM Collection Time: 05/14/17 3:00 AM # # Low-High Magnesium 1.9 1.6 - 2.6 mg/dL CBC AND DIFF Collection Time: 05/14/17 3:00 AM # # Low-High White Blood Cells 0.8 (LL) 4.5 - 11.0 K/UL RBC 2.28 (L) 4.0 - 5.0 M/UL Hemoglobin 6.8 (L) 12.0 - 15.0 GM/DL Hematocrit 19.1 (L) 36 - 45 % MCV 83.7 80 - 100 FL MCH 30.0 26 - 34 PG MCHC 35.8 32.0 - 36.0 G/DL RDW 15.8 (H) 11 - 15 % Platelet Count 10 (LL) 150 - 400 K/UL MPV 7.8 7 - 11 FL Neutrophils 1 (L) 41 - 77 % Lymphocytes 97 (H) 24 - 44 % Monocytes 1 (L) 4 - 12 % Eosinophils 0 0 - 5 % Basophils 1 0 - 2 % Absolute Neutrophil Count 0.00 (L) 1.8 - 7.0 K/UL Absolute Lymph Count 0.80 (L) 1.0 - 4.8 K/UL Absolute Monocyte Count 0.00 0 - 0.80 K/UL Absolute Eosinophil Count 0.00 0 - 0.45 K/UL Absolute Basophil Count 0.00 0 - 0.20 K/UL POC GLUCOSE Collection Time: 05/14/17 3:35 AM # # Low-High Glucose, POC 142 (H) 70 - 100 MG/DL TYPE & CROSSMATCH Collection Time: 05/14/17 4:23 AM # # Low-High Units Ordered 1 Crossmatch Expires 05/17/2017 Record Check FOUND ABO/RH(D) A POS Antibody Screen NEG Electronic Crossmatch YES Unit Number [id number] Blood Component Type RBC,ADSOL,LEUKO REDUCED,IRRADIATED Unit Division 0 Status OF Unit ALLOCATED Transfusion Status OK TO TRANSFUSE Crossmatch Result COMPATIBLE,ELECTRONIC PREPARE APHERESIS PLATELETS Collection Time: 05/14/17 4:23 AM # # Low-High Units Ordered 1 Unit Number [id number] Blood Component Type APHERESIS PLT,LEUKO REDUCED,IRRADIATED,1ST CONT. Unit Division 0 Status OF Unit ISSUED Transfusion Status OK TO TRANSFUSE POC GLUCOSE Collection Time: 05/14/17 7:51 AM # # Low-High Glucose, POC 143 (H) 70 - 100 MG/DL Radiology Review: No pertinent radiology. Cristina Sy MD * Allie Pope RN - 05/14/2017 6:41 AM CDT Shift: Pt is up frequently to use commode because of UTI NEWS Score: 2-2-2 (oxygen) Pain: pt denies any pain Nutrition: adequate iron GI/: dark yellow urin and soft BM's overnight 05/13 Activity: Pt up with assist of 1 with walker. Pt get winded but recovers quickly after getting back in bed Family: Last Shower: Pt refused. Will shower today New Events or Follow-up: Pt receiving plt, mag and K+ today. Pt will also need blood. Pt states she feels a bit weak and apprehensive to discharge. Discussed with treatment process with her. Will ctm * Enma Miller, NEVA - 05/13/2017 7:00 PM CDT Shift: NEWS: 799-2 1200-0 1600-0 Nutrition: Breakfast-100% meal tray Lunch-100% staff prepared protein shake Dinner-100% meal tray PO liquid intake fair AC blood glucose 133, 160, & 97 Activity: HFR, compliant w/ bundle. Staff assist x 1 with walker and gait belt. Seen w/ steady gait, but weak. Walked in halls w/ PT and OOB to BSC multiple times throughout the day with minimal assist of staff. Pain: c/o neuropathic pain to bilat hands and feet, requiring no PRN medications. GI/: last BM today x 2 seen as soft and brown. No c/o nausea throughout the day. 2 ulcerations bilat behind furthest posterior molars. Voiding dark yellow, clear urine in adequate amount with c/o difficulty starting urine stream CARDIOPULM: regular heart sounds auscultated, bilat LE edema observed as 2+; refusing YAMIL hose. Chest PICC drsg c/d/i Lungs CTA, IS at bedside and encouraged throughout the day SKIN/MS: generalized bruising and weakness reported in both upper and lower extremeties Family: none at bedside, encouraged by good report from latest bone marrow biopsy Last shower/Linen change: refused both today after extensive education and encouragement. Follow up: reports to this RN she is interested in shaving her head tomorrow prior to shower in the morning. * Veena Beck, OT - 05/13/2017 3:48 PM CDT OCCUPATIONAL THERAPY PROGRESS NOTE Admitting Diagnosis: AML Leukocytosis Patient seen x1 this date. Documentation reflects all daily treatment sessions. Mobility Progressive Mobility Level: Walk in room Distance Walked (feet): 5 ft Level of Assistance: Stand by assistance Assistive Device: Walker Time Tolerated: 31-60 minutes Activity Limited By: Fatigue Subjective Pertinent Dx per Physician: 56 year old female with new diagnosis of AML. Patient admitted for start of chemotherapy. Patient is obese with bariatric bed in place. Precautions: Falls;Isolation (droplet) Pain / Complaints: Patient has no c/o pain Objective Psychosocial Status: Willing and Cooperative to Participate Persons Present: RN (at end of session) Home Living Type of Home: House Home Layout: One Level;Stairs to Enter w/ Rails Bathroom Shower / Tub: Walk-in Shower Bathroom Toilet: Standard Bathroom Equipment: Built-in Seat in Shower;Shower Chair;Commode;Grab Bars in Shower Bathroom Accessibility: Accessible via Walker Home Equipment: Walker;Commode;Grab Bars;Shower/Tub Bench Prior Function Level Of [place]: Needed assistance with ADLs;Needed assistance with homemaking;Independent with ADLs and functional transfers Lives With: Spouse Receives Help From: Spouse ADL's Where Assessed: Chair (commode) Toileting Assist: Stand By Assist Toileting Deficits: Supervision/Safety;Bedside Commode;Clothing Management Up Functional Transfer Assist: Stand By Assist Functional Transfer Deficits: Supervision/Safety;Commode Transfer Comment: Pt supine upon OT arrival. Pt agreeable to therapeutic activity in supine. Pt then able to complete supine>sit with stand by assist and increased time. Pt ambulated to bedside commode w/ walker and SBA. Pt required extra time on commode. Pt on commode at end of session with RN in room. Activity Tolerance Endurance: 3/5 Tolerates 25-30 Minutes Exercise w/Multiple Rests Sitting Balance: 4/5 Moves/Returns Trunkal Midpoint 1-2 Inches in Multiple Planes Comment: Pt participated in therapeutic activity at bed level utilizing adaptive equipment for tasks requiring R fiber optic assembler strength. Pt educated on compensatory strategies and adaptive equipment for tasks such as writing, eating , and grooming. Pt demonstrated good use of built up handle for writing task. Will continue to assess + implement as appropriate. Cognition Overall Cognitive Status: WFL to Adequately Complete Self Care Tasks Safely Orientation: Alert & Oriented x3 Attention: Awake/Alert Education Persons Educated: Patient Teaching Methods: Verbal Instruction Patient Response: Verbalized and Demo Understanding Topics: Role of OT, Goals for Therapy;ADL Compensatory Techniques Goal Formulation: With Patient Assessment Assessment: Decreased ADL Status;Decreased Endurance;Decreased Self-Care Trans; Decreased High-Level ADLs Goal Formulation: Patient AM-PAC 6 Clicks Daily Activity Inpatient Putting on and taking off regular lower body clothes?: Total Bathing (Including washing, rinsing, drying): A Lot Toileting, which includes using toilet, bedpan, or urinal: A Little Putting on and taking off regular upper body clothing: A Little Taking care of personal grooming such as brushing teeth: None Eating meals?: None Daily Activity Raw Score: 17 Standardized (t-scale) score: 37.26 CMS 0-100% Score: 50.11 CMS G Code Modifier: CK Plan Treatment Interventions: ADL Retraining;Functional Transfer Training;Endurance Training;Fine Motor Coordination Activities;Compensatory Technique Education OT Frequency: 5x/week Plan for next visit: sitting edge of bed or attempt standing at sink grooming, LE dressing Further Evaluation Goals Pt Will Tolerate Further ADL Evaluation: w/in1-2 sessions, Met ADL Goals Patient Will Perform Grooming: w/ Stand By Assist Patient Will Perform LE Dressing: At Edge of Bed, Standing at Edge of Bed, w/ Minimum Assist Functional Transfer Goals Pt Will Perform All Functional Transfers: w/ Stand By Assist Arm Goals Pt Will Perform AROM: B UE, 2 Sets, 10 Reps, w/ Good Activity Tolerance Discharge Recommendations: Inpatient setting vs. Home with home health Equipment Recommendations: Too early to be determined Therapist: Veena Beck OTR/[id number] Date: 05/13/2017 * Ari Collazo MD - 05/13/2017 3:02 PM CDT Formatting of this note may be different from the original. 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 Hypoglycemia is recurrent in spite of D5 normal saline drip. Recurrent UTI Acute leukemia A. fib CKD stage III Recommendations: - Hypoglycemia has resolved. - well- controlled DM - continue lantus 12 units daily - continue novolog 8 units with meals - continue MDCF - plan to restart glimepiride lower dose at discharge. - She does not agree with us regarding restarting metformin concerning for her CKD. Now her Cr is normal and GFR > 60. 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 We will continue to follow discussed with Dr. Eng History of Present Illness Giselle Moraes is a 56 y.o. female with past medical history of A. fib, type 2 diabetes, CKD stage III, UTI, anxiety was admitted for suspicion for acute leukemia. Endocrinology was consulted for recurrent hypoglycemia. Patient is tired Eating well. Denies nausea , vomitng , abdominal pain Estimated Creatinine Clearance: 111.2 mL/min (based on Cr of 0.78). 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 No pertinent family history. Allergies Allergies Allergen Reactions Ciprofloxacin SEE COMMENTS Per Nephrology doctors. Levofloxacin SEE COMMENTS Per nephrology doctors. Nsaids (Non-Steroidal Anti-Inflammatory Drug) SEE COMMENTS Per nephrology doctors. Bactrim [Sulfamethoxazole-Trimethoprim] SEE COMMENTS Per Nephrology Doctors. Contrast Dye Iv, Iodine Containing [Iodinated Contrast- Oral And Iv Dye] SEE COMMENTS Per nephrology doctors. Review of Systems A comprehensive 14-point review of systems was negative with exception of fatigue Medications Scheduled Meds: acyclovir (ZOVIRAX) tablet 800 mg 800 mg Oral BID atenolol (TENORMIN) tablet 25 mg 25 mg Oral QDAY cefepime (MAXIPIME) 2 g/100 ml iso-osmotic IVPB 2 g Intravenous Q8H* diltiazem CD (cardIZEM CD) capsule 240 mg 240 mg Oral QDAY insulin aspart (NOVOLOG FLEXPEN) injection PEN 0-14 Units 0-14 Units Subcutaneous ACHS insulin aspart (NOVOLOG FLEXPEN) injection PEN 8 Units 8 Units Subcutaneous TID w/ meals insulin glargine (LANTUS SOLOSTAR) injection PEN 12 Units 12 Units Subcutaneous QDAY(12) posaconazole EC (NOXAFIL) tablet 300 mg 300 mg Oral BID w/meals Followed by [START ON 05/14/2017] posaconazole EC (NOXAFIL) tablet 300 mg 300 mg Oral QDAY w /breakfast Continuous Infusions: PRN and Respiratory Meds:acetaminophen Q6H PRN, ALPRAZolam BID PRN, alteplase PRN (Compliance Representative from Rx), hydrOXYzine TID PRN, loperamide PRN, LORazepam Q6H PRN, LORazepam injection Q6H PRN, magnesium sulfate 4 g/50 mL PRN, milk of magnesia ( CONC) Q6H PRN, polyethylene glycol 3350 QDAY PRN, potassium chloride PRN (Compliance Representative from Rx) OR potassium chloride SR PRN (Compliance Representative from Rx), saliva, synthetic PRN, senna BID PRN, sodium chloride 0.9% irrigation bottle PRN Physical Examination Vital Signs: Last Vital Signs: 24 Hour Range BP: 111/63 (05/13 1157) Temp: 37.1 C (98.8 F) (05/13 1157) Pulse: 90 (05/13 1157) Respirations: 18 PER MINUTE (05/13 1157) SpO2: 100 % (05/13 1157) O2 Delivery: None (Room Air) (05/13 1157) BP: (105-122)/(53-77) Temp: [36.6 C (97.8 F)-37.1 C (98.8 F)] Pulse: [62-106] Respirations: [18 PER MINUTE-20 PER MINUTE] SpO2: [98 %-100 %] O2 Delivery: None (Room Air) General appearance: alert, oriented, looking tired HENT: Dry oral mucosa, dried blood on lips Lungs: no wheezing, rhonchi, rales appreciated Heart: Regular rhythm, reg rate, with no murmur, rub, gallop Abdomen: soft, non-tender, non-distended, normoactive bowel sounds, Ext: No clubbing, cyanosis or edema Skin: no rashes/lesions Lab Review Point of Care Testing (Last 24 hours) Glucose: (!) 122 (05/13/17236) POC Glucose (Download): (!) 160 (05/13/17 1222) Recent Labs 05/11/1721505/12/1740905/13/17236 NA 141 140 142 K 3.8 4.2 3.7 CL 106 107 108 CO2 30 28 27 GAP 5 5 7 BUN 31* 28* 32* CR 0.66 0.56 0.78 GLU 117* 129* 122* CA 8.2* 8.5 8.5 ALBUMIN 2.3* 2.5* 2.4* MG 2.1 1.8 2.1 Recent Labs 05/11/1721505/12/1740905/13/17236 WBC 0.5* 0.5* 0.8* HGB 6.9* 7.3* 7.2* HCT 19.9* 21.6* 20.0* PLTCT 10* 24* 16* AST 6* 7 8 ALT 6* 6* 4* ALKPHOS 70 90 116* Estimated Creatinine Clearance: 111.2 mL/min (based on Cr of 0.78). Vitals: 05/10/17 1500 05/12/17 1100 05/13/17 0908 Weight: 118.6 kg (261 lb 8 oz) 132 kg (291 lb) 131.7 kg (290 lb 6.4 oz) Thyroid Studies No results found for: TSH, FREET4, FREEINDEX No results found for: FREET3, [id number], THYBINDGLB Ari Collazo MD Endocrinology Fellow [id number] [phone] Associated attestation - Karla Eng MD - 05/13/2017 7:43 PM CDT Formatting of this note may be different from the original. ATTESTATION I personally performed the carrizales portions of the E/M visit, discussed case with resident and concur with resident documentation of history, physical exam, assessment, and treatment plan unless otherwise noted. Staff name: Karla Eng MD Date: 05/13/2017 * Cristina Sy MD - 05/13/2017 11:21 AM CDT Formatting of this note may be different from the original. 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 Full NGS pending Transferred from [facility] with leucocytosis concerning for AML - BMBx shows 77% blasts, M5 (monocytic), cytos and full NGS pending - Will plan for LP and IT chemo x1 at [facility] - Patient on DTI- apixaban for atrial fibrillation, now on hold - Obtain 2D echo - normal, EF 60%. Cardiology consulted. - Monitor TLS labs and DIC labs daily - Start 7+3 04/28/2017, FLT3 ITD positive, has not gotten midostaurin yet, so will plan day 14 bone marrow - Day 16 of 7+3 - s/p LP with IT chemo today as prophy given high WBC at presentation - Flow negative, cytology negative BM hypocellular with 1% blasts, flow with 0.04% neoplastic blasts Heme: - Pancytopenia due to chemotherapy, monitor for transfusion needs to keep Hgb>7 and platelets >10K. No transfusions today - Previously on anticoagulation with apixaban for Atrial fibrillation, will hold for now with thrombocytopenia - Anticoagulation with lovenox for DVT ppx contraindicated due to thrombocytopenia, SCD's when on bed FEN/Renal: - Creatinine improved. - Appreciate renal recommendations - Monitor electrolytes, will be high goal replacement with h/o atrial fibrillation. No replacements today - Close monitoring of fluid status - Monitor I/O and daily weights to assess for need for prn lasix. ID: Afebrile, Temperature up to 100.2 on 05/09/17 - Presents with UTI and fever - Urine cx from [facility] 04/23: + E.Coli resistant to ampicillin, Bactrim, Nitrofurantoin. Intermediate resistance to gent and Unasyn. Susceptible to ceftriaxone, zosyn, meropenem, cipro and aztreonam - Blood cx x 2 from [facility] 04/23: NGTD - Cefepime continues, had vancomycin and daptomycin on 04/24-04/25, discontinued, restart vanco if febrile. Will plan to continue until neutropenia resolves - Has urinary catheter in place, did have urinary retention after trying to remove, will try again in one week after finishing antibiotics. - On prophylaxis with posaconazole (due to planned midostaurin) and acyclovir. D/c fermin as no midostaurin this cycle - for any neutropenic fever, will check chest CT as well given risk of pneumonia with poor resp effort due to weakness/obesity GI: - No nausea, vomiting. Had multiple BM 05/03/17. Patient felt better after BM. C.diff negative - Low albumin. Liver functions normal - Obese, BMT>40 - Standing weights difficult due to patient factors Endo: - Has type II DM, on glimiperide has been discontinued on admission - Had persistent low blood sugars, now blood sugars better - Endocrinology consultation obtained and appreciate recommendations; On lantus 12 units, 7 units Novolog with meals and MDCF CVS: - H/o atrial fibrillation, rate controlled. 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 Atenolol held 05/02/17 night due to 2 sec pause. Re started on 05/05 - Mild moderate - Will hold apixaban - Cardiology opinion appreciated, 2d Echo- normal EF 60%. : Chronic cystitis, gonzalez placed for urinary retention, d/c 05/12. Derm: Facial hyperpigmentation on the right side of face. Derm to evaluate. Benign lesions, recommended topical tx only Psych/Social: - On alprazolam for anxiety, currently continued at low dose - Lives in [facility], , currently on disability, son lives in [facility] - Need to schedule family meeting to discuss future treatment course, had first discussion with and family friend on 04/28. PT/OT: Mobility is a big issue. Subjective: Giselle Moraes is a 56 y.o. female. Complains about working with PT, verbalizes that she needs to work hard to regain her strength Review of Systems: Constitutional: + fatigue, anorexia, appetite change, HEENT: + new mouth sore on right cheek Respiratory: mild SOB with moving around. Cardiovascular: Negative for chest pain, chest pressure, palpitations Gastrointestional: diarrhea improving. No abdominal pain/ nausea or vomiting, Gernitourinary: Voiding on a schedule Musculoskeletal: cannot walk or get up without assistance, severe neuropathy and right knee pain since surgery Skin: + bruising and petechiae + Facial rash of long duration Neuro: Long standing neuropathy of hands and feet Psych: + anxiety Objective: Medications: Scheduled Meds: acyclovir (ZOVIRAX) tablet 800 mg 800 mg Oral BID atenolol (TENORMIN) tablet 25 mg 25 mg Oral QDAY cefepime (MAXIPIME) 2 g/100 ml iso-osmotic IVPB 2 g Intravenous Q8H* diltiazem CD (cardIZEM CD) capsule 240 mg 240 mg Oral QDAY insulin aspart (NOVOLOG FLEXPEN) injection PEN 0-14 Units 0-14 Units Subcutaneous ACHS insulin aspart (NOVOLOG FLEXPEN) injection PEN 8 Units 8 Units Subcutaneous TID w/ meals insulin glargine (LANTUS SOLOSTAR) injection PEN 12 Units 12 Units Subcutaneous QDAY(12) micafungin (MYCAMINE) 50 mg in sodium chloride 0.9% (NS) 105 mL IVPB 50 mg Intravenous Q24H* polyethylene glycol 3350 (MIRALAX) packet 17 g 1 packet Oral QDAY senna (SENOKOT) tablet 1 tablet 1 tablet Oral BID Continuous Infusions: PRN and Respiratory Meds:acetaminophen Q6H PRN, ALPRAZolam BID PRN, alteplase PRN (Compliance Representative from Rx), hydrOXYzine TID PRN, loperamide PRN, LORazepam Q6H PRN, LORazepam injection Q6H PRN, magnesium sulfate 4 g/50 mL PRN, milk of magnesia ( CONC) Q6H PRN, potassium chloride PRN (Compliance Representative from Rx) OR potassium chloride SR PRN (Compliance Representative from Rx), saliva, synthetic PRN, sodium chloride 0.9% irrigation bottle PRN Vital Signs: Last Filed Vital Signs: 24 Hour Range BP: 122/77 (05/13 748) Temp: 36.6 C (97.8 F) (05/13 748) Pulse: 106 (05/13 908) Respirations: 18 PER MINUTE (05/13 908) SpO2: 98 % (05/13 908) O2 Delivery: Nasal Cannula (05/13 748) BP: (98-122)/(50-77) Temp: [36.6 C (97.8 F)-37 C (98.6 F)] Pulse: [62-106] Respirations: [18 PER MINUTE-20 PER MINUTE] SpO2: [98 %-100 %] O2 Delivery: Nasal Cannula Intensity Pain Scale 0-10 (Pain 1): (not recorded) Vitals: 05/10/17 1500 05/12/17 1100 05/13/17 09 Weight: 118.6 kg (261 lb 8 oz) 132 kg (291 lb) 131.7 kg (290 lb 6.4 oz) Intake/Output Summary: (Last 24 hours) Intake/Output Summary (Last 24 hours) at 05/13/17 1121 Last data filed at 05/13/17907 Gross per 24 hour Intake 110 ml Output 1150 ml Net -1040 ml Physical Exam: Performance Status (Karnofsky): 50% Requires considerable assistance and frequent medical care VS reviewed, pt afebrile General: Alert, cooperative, no distress, appears stated age/ Morbidly obese Head: Normocephalic, without obvious abnormality, atraumatic Eyes:Anicteric sclera OP: + wet purpura right buccal mucosa Lungs: CTAB Heart: Irregular rhythm Abdomen: Soft, non-tender. Bowel sounds normal. No masses. No organomegaly. Extremities: Trace edema to feet Skin: Facial hyperpigmentation on right cheek, long standing per patient. + buising and petechiae Neurologic: Generalized weakness, limited mobility Lab Review: Results for orders placed or performed during the hospital encounter of (from the past 48 hour(s)) POC GLUCOSE Collection Time: 05/11/17 11:42 AM # # Low-High Glucose, POC 149 (H) 70 - 100 MG/DL NON-HANDKERCHIEF MAKER CYTOLOGY (BODY FLUIDS/TISSUE) Collection Time: 05/11/17 2:55 PM # # Low-High Cytology [facility] [email or web address] Sonali Snow MD, Director Cytopathology Department of Pathology and Laboratory Medicine [address] [place] [id number] Surgical Pathology Office: [phone] CYTOLOGY REPORT NAME: GISELLE MORAES CYTOLOGY #: [id number] MR #: [id number] ALT ID #: [id number] #: [id number] LOCATION: 41 DATE OF PROCEDURE: 05/11/2017 AGE: 56 SEX: F DATE RECEIVED: 05/11/2017 : 1960 TIME RECEIVED: 14:55 PHYSICIAN: RUTH SIM APRN-BODY WORK AUTO TRIMMER DATE OF REPORT: 05/12/2017 COPY TO: MD BRIE ESTRADA STEVEN Q M[facility] SATTERWHITE, LEWIS [facility] NEIL C DUNAVIN, MD MALE,[facility] CRISTINA SY MD DATE OF PRINTIN05/12/2017 Material Received: A: Cerebrospinal Fluid History: 56 year old female with a clinical history of acute myeloid leukemia. Gross Description: (1tp) 1ml clear, colorless fluid. ######################################################################## Final Diagnosis: A. Cerebrospinal Fluid: Negative for malignant cells. Please also see concurrent flow cytometry report ([id number]) which shows a negative phenotypic study. Attestation: By this signature, I attest that I have personally formulated the final interpretation expressed in this report and that the above diagnosis is based upon my examination of the slides and/or other material indicated in this report. +++Electronically Signed Out By+++ mark/05/12/2017 Interpreted by: MD Luna Mittal, DO Resident POC GLUCOSE Collection Time: 05/11/17 4:49 PM # # Low-High Glucose, POC 149 (H) 70 - 100 MG/DL POC GLUCOSE Collection Time: 05/11/17 8:29 PM # # Low-High Glucose, POC 146 (H) 70 - 100 MG/DL POC GLUCOSE Collection Time: 05/11/17 10:54 PM # # Low-High Glucose, POC 146 (H) 70 - 100 MG/DL COMPREHENSIVE METABOLIC PANEL Collection Time: 05/12/17 4:10 AM # # Low-High Sodium 140 137 - 147 MMOL/L Potassium 4.2 3.5 - 5.1 MMOL/L Chloride 107 98 - 110 MMOL/L Glucose 129 (H) 70 - 100 MG/DL Blood Urea Nitrogen 28 (H) 7 - 25 MG/DL Creatinine 0.56 0.4 - 1.00 MG/DL Calcium 8.5 8.5 - 10.6 MG/DL Total Protein 5.3 (L) 6.0 - 8.0 G/DL Total Bilirubin 1.4 (H) 0.3 - 1.2 MG/DL Albumin 2.5 (L) 3.5 - 5.0 G/DL Alk Phosphatase 90 25 - 110 U/L AST (SGOT) 7 7 - 40 U/L CO2 28 21 - 30 MMOL/L ALT (SGPT) 6 (L) 7 - 56 U/L Anion Gap 5 3 - 12 eGFR Non >60 >60 mL/min eGFR >60 >60 mL/min MAGNESIUM Collection Time: 05/12/17 4:10 AM # # Low-High Magnesium 1.8 1.6 - 2.6 mg/dL CBC AND DIFF Collection Time: 05/12/17 4:10 AM # # Low-High White Blood Cells 0.5 (LL) 4.5 - 11.0 K/UL RBC 2.51 (L) 4.0 - 5.0 M/UL Hemoglobin 7.3 (L) 12.0 - 15.0 GM/DL Hematocrit 21.6 (L) 36 - 45 % MCV 86.0 80 - 100 FL MCH 29.2 26 - 34 PG MCHC 34.0 32.0 - 36.0 G/DL RDW 15.4 (H) 11 - 15 % Platelet Count 24 (LL) 150 - 400 K/UL MPV 7.5 7 - 11 FL POC GLUCOSE Collection Time: 05/12/17 8:37 AM # # Low-High Glucose, POC 151 (H) 70 - 100 MG/DL POC GLUCOSE Collection Time: 05/12/17 1:19 PM # # Low-High Glucose, POC 209 (H) 70 - 100 MG/DL POC GLUCOSE Collection Time: 05/12/17 5:19 PM # # Low-High Glucose, POC 89 70 - 100 MG/DL POC GLUCOSE Collection Time: 05/12/17 9:09 PM # # Low-High Glucose, POC 145 (H) 70 - 100 MG/DL POC GLUCOSE Collection Time: 05/13/17 2:35 AM # # Low-High Glucose, POC 134 (H) 70 - 100 MG/DL COMPREHENSIVE METABOLIC PANEL Collection Time: 05/13/17 2:37 AM # # Low-High Sodium 142 137 - 147 MMOL/L Potassium 3.7 3.5 - 5.1 MMOL/L Chloride 108 98 - 110 MMOL/L Glucose 122 (H) 70 - 100 MG/DL Blood Urea Nitrogen 32 (H) 7 - 25 MG/DL Creatinine 0.78 0.4 - 1.00 MG/DL Calcium 8.5 8.5 - 10.6 MG/DL Total Protein 5.3 (L) 6.0 - 8.0 G/DL Total Bilirubin 1.2 0.3 - 1.2 MG/DL Albumin 2.4 (L) 3.5 - 5.0 G/DL Alk Phosphatase 116 (H) 25 - 110 U/L AST (SGOT) 8 7 - 40 U/L CO2 27 21 - 30 MMOL/L ALT (SGPT) 4 (L) 7 - 56 U/L Anion Gap 7 3 - 12 eGFR Non >60 >60 mL/min eGFR >60 >60 mL/min MAGNESIUM Collection Time: 05/13/17 2:37 AM # # Low-High Magnesium 2.1 1.6 - 2.6 mg/dL CBC AND DIFF Collection Time: 05/13/17 2:37 AM # # Low-High White Blood Cells 0.8 (LL) 4.5 - 11.0 K/UL RBC 2.37 (L) 4.0 - 5.0 M/UL Hemoglobin 7.2 (L) 12.0 - 15.0 GM/DL Hematocrit 20.0 (L) 36 - 45 % MCV 84.2 80 - 100 FL MCH 30.2 26 - 34 PG MCHC 35.9 32.0 - 36.0 G/DL RDW 16.0 (H) 11 - 15 % Platelet Count 16 (LL) 150 - 400 K/UL MPV 8.6 7 - 11 FL Neutrophils 3 (L) 41 - 77 % Lymphocytes 97 (H) 24 - 44 % Monocytes 0 (L) 4 - 12 % Eosinophils 0 0 - 5 % Basophils 0 0 - 2 % Absolute Neutrophil Count 0.00 (L) 1.8 - 7.0 K/UL Absolute Lymph Count 0.70 (L) 1.0 - 4.8 K/UL Absolute Monocyte Count 0.00 0 - 0.80 K/UL Absolute Eosinophil Count 0.00 0 - 0.45 K/UL Absolute Basophil Count 0.00 0 - 0.20 K/UL POC GLUCOSE Collection Time: 05/13/17 7:47 AM # # Low-High Glucose, POC 133 (H) 70 - 100 MG/DL Radiology Review: No pertinent radiology. Cristina Sy MD * Arnold Sparks, PT - 05/13/2017 9:40 AM CDT PHYSICAL THERAPY PROGRESS NOTE MOBILITY: Mobility Progressive Mobility Level: Walk in hallway Distance Walked (feet): 35 ft Level of Assistance: Assist X1 Assistive Device: Walker Time Tolerated: 31-60 minutes Activity Limited By: Fatigue SUBJECTIVE: Subjective Significant hospital events: Patient is a 56 year old female with new diagnosis of AML. Patient admitted for start of chemotherapy. Patient is obese with bariatric bed in place. Mental / Cognitive Status: Alert;Cooperative Persons Present: Nursing Staff Pain: Patient has no complaint of pain Pain Interventions: Patient agrees to participate in therapy with modifications to session Comments: Patient sitting up in bedside chair. Nursing staff needing accurate weight. Patient needing to use commode before going to [place] for weight. Patient with great deal of anxiety to ambulate in the [place]. After ambulation patient sitting up in chair and during conversation with this PT, patient states , "I'd rather go home in my current state even if it mean dying, so that I don' t have to go through any more of this". Ambulation Assist: Independent Mobility in Community with Device Patient Owned Equipment: Roller Walker Home Situation: Lives with Family Type of Home: House Entry Stairs: 3-5 Stairs;Rail on Both Sides In-Home Stairs: Able to Live on One Level BED MOBILITY/TRANSFERS: Bed Mobility/Transfers Transfer Type: Sit to/from Stand Transfer: Assistance Level: To/From;Bed Side Chair;Standby Assist Transfer: Assistive Device: Roller Walker Transfers: Type Of Assistance: Verbal Cues;For Safety Considerations Other Transfer Type: Sit to/from Stand Other Transfer: Assistance Level: To/From;Wheelchair;Standby Assist Other Transfer: Assistive Device: Roller Walker Other Transfer: Type Of Assistance: Verbal Cues;For Safety Considerations End Of Activity Status: Up in Chair;Instructed Patient to Use Call Light GAIT: Gait Gait Distance: 30 feet Gait: Assistance Level: Minimal Assist Gait: Assistive Device: Roller Walker Gait: Descriptors: Pace: Slow;Decreased foot clearance RLE;Decreased foot clearance LLE;Decreased step length Comments: Patient able to get to the scale but begins having what seems to be an anxiety attack and requests to sit down. Patient states her arms are giving out and she is going to collapse. Patient was strong the entire time with no signs of knee buckling or collapse other than that she was hunching over to try to sit. EDUCATION: Education Persons Educated: Patient Patient Barriers To Learning: Anxiety Interventions: Repetition of Instructions Teaching Methods: Verbal Instruction Patient Response: Verbalized Understanding;More Instruction Required Topics: Mobility Progression;Up with Assist Only;Importance of Increasing Activity ASSESSMENT/PROGRESS: Assessment/Progress Impaired Mobility Due To: Decreased Strength;Decreased Activity Tolerance; Medical Status Limitation Assessment/Progress: Expect Slow Progress Comments: Functionally, patient continues to show adequate strength to mobilize safely in the room as well as in the hallway. Unfortunately, patient does not tolerate PT motivation very well and is very resistive to pushing herself past her comfort zone. Patient prefers to remain in bed rather than be up out of bed and ambulating so that she can hopefully return home once stable to do so. Patient did make comment about dying today that was of concern and PT relayed this information to medical team. Patient's anxiety is a huge limiter for patient and increased level of activity has been unable to be achieved due to patient's self limiting behavior. AM-PAC 6 Clicks Basic Mobility Inpatient Turning from your back to your side while in a flat bed without using bed rails : A Little Moving from lying on your back to sitting on the side of a flatbed without using bedrails : A Little Moving to and from a bed to a chair (including a wheelchair): A Little Standing up from a chair using your arms (e.g. wheelchair, or bedside chair): A Little To walk in hospital room: A Little Climbing 3-5 steps with a railing: A Lot Raw Score: 17 Standardized (T-scale) Score: 39.67 Basic Mobility CMS 0-100%: 43.83 CMS G Code Modifier for Basic Mobility: CK GOALS: Goals Goal Formulation: With Patient Time For Goal Achievement: 7 days Pt Will Go Supine To/From Sit: w/ Minimal Assist Pt Will Transfer Bed/Chair: w/ Minimal Assist Pt Will Transfer Sit to Stand: w/ Minimal Assist Pt Will Ambulate: 11-30 Feet, w/ Walker, w/ Minimal Assist PLAN: Plan Treatment Interventions: Mobility Training;Strengthening;Balance Activities; Coordination Training;Endurance Training Plan Frequency: 5 Days per Week Comments: Continue to work on ambulation and eventually stairs. Will try to give patient more say in treatment plan to see if she engages more with increased control. RECOMMENDATIONS: PT Discharge Recommendations PT Discharge Recommendations: Inpatient Setting;to address deficits, maximize function and improve safety Equipment Recommendations: Patient owns necessary equipment Therapist: Arnold Sparks DPT Date: 05/13/2017 * Melissa Calabrese, RT - 05/13/2017 9:09 AM CDT Formatting of this note may be different from the original. RESPIRATORY THERAPY ADULT PROTOCOL EVALUATION RESPIRATORY PROTOCOL PLAN Medications Note: If indicated by protocol, medication orders will be placed by therapist. Procedures PEP Therapy: Place a nursing order for "IS Q1h While Awake" for any of Lung Expansion indicators Oxygen/Humidity: O2 to keep SpO2 > 92% Monitoring: Pulse oximetry BID & PRN PATIENT EVALUATION RESULTS Chart Review * Pulmonary Hx: No pulmonary diagnosis OR no smoking hx * Surgical Hx: No surgery OR last surgery > 6 weeks ago OR trach/stoma (BA) * Chest X-Ray: Clear OR not available (no current CXR) * PFT/Oxygenation: FEV1, PEFR < 70% OR Pa02 < 70 RA OR Sp02 <92% RA OR Fi02 > 0.21 to keep Sp02 > 92% OR < 24 hours post-op (02 & oxim) OR chronic C02 retention (C02) (Pt wears 2L @ noc) Patient Assessment * Respiratory Pattern: Regular pattern and rate OR good chest excursion with deep breathing * Breath Sounds: Clear apically, but diminished in bases (LE) OR CHF related crackles (02) (oximetry) * Cough / Sputum: Strong, effective cough OR nonproductive * Mental Status: Alert, oriented, cooperative * Activity Level: Ambulatory with assistance Priority Index Total Points: 4 Points * Priority Index: 1 PRIORITY INDEX GUIDELINES* Priority Points 1 0-9 points 2 9-18 points 3 > 18 points + Pulm Dx or Home Rx *Higher points indicate higher acuity. Therapist: Melissa Calabrese, RT Date: 05/13/2017 [place] AC=Airway clearance AM=Aerosolized medication BA=[place] aerosol DB&C=Deep breathe & cough FEV1=Forced expiratory volume in first second) IC=Inspiratory capacity LE=Lung expansion MDI=Metered dose inhaler Neb=Nebulizer O2=Oxygen Oxim=Oximetry PEFR=Peak expiratory flow rate GOLD LEAF LABORER=Rapid Response Team * Alma Rosa Frenando RN - 05/13/2017 6:32 AM CDT Shift: Night NEWS Score:1-2-2 Pain: no reports of pain during this shift Nutrition: Neut GI/: LBM: 05/13 Activity: Up with 1+ with a walker and BSC Family: Supportive family Last Shower: 05/12 New Events or Follow-up: Pt will need KCl this AM per high goal replacement protocol * Maritza Huddleston, RN - 05/12/2017 6:00 PM CDT End of Shift Note NEWS score : 0800: 2 1200: 2 1600: 0 Nutrition: Neutropenic diet. Poor appetite. No complaints of N/V at this time Activity:Up with x2 assist, gait belt, walker Pain: No complaints of pain this shift. PRN's available. GI/: Gonzalez removed @1130, Pt voided twice after removal. Last BM 05/12 Family: No family at bedside Last shower and linen change: 05/12 Up to shower Follow up: Continue to encourage ambulation. * Deirdre Smith, RD - 05/12/2017 5:15 PM CDT CLINICAL NUTRITION Clinical Nutrition Assessment Summary Nutrition Assessment of Patient: BMI Categories Adult: Obesity Class III: 40 and over (BMI of 49.4 at present wt) Malnutrition Assessment: Does not meet criteria Current Oral Intake: Marginally Adequate, Inadequate Estimated Calorie Needs: 8289-4230 (25-30kcal/kg desired wt 72kg) Estimated Protein Needs: 86-101 (1.2-1.4g/kg DBW) Oral Diet Order: Diabetic [id number] Kcal/day (60 g Carb/meal, 30 g Carb/HS snack ) 56 yr old female with h/o permanent AF, mild to moderate , DM, CKD, nephrolithiasis obesity admitted with suspicious acute leukemia. Currently day 15 of 7+3. Pt with h/o DM, A1C 5.2 this admit, however likely falsely low given low hemoglobin. FSBS ranging from 209-146 in the last 24hrs. Insulin and appropriate diabetic diet on board. No pressure injuries noted. On prior RD visit patient was provided edu on neutropenic diet, nutrition during cancer treatment and review of consistent carb diet. She has been told to follow multiple diets in the past including renal, consistent carb, and low oxalate. Patient required frequent redirection from discussing quality of hospital food. She reports continuing to eat 2 meals per day (skipping lunch), noting decreased appetite and altered taste. She states she has been alternating between diarrhea, and constipation but focusing on bland low fiber easy-to- digest foods has helped somewhat. Noted weight has ranges from 358# to today's wt of 291#, likely partially related to fluid changes. Patient asked if it would be ok for family to bring her chocolate, we discussed that this would be ok, but would recommend sticking to 1 serving size/day. Recommendation: Continue current diet as ordered Intervention / Plan: Encouraged patient to consume 3 meals/day to help meet nutritional needs and aid in glycemic control Reviewed nutritional management of altered taste Will monitor PO diet tolerance/adequacy, labs, weight trends, i/os Nutrition Diagnosis: Nutrition Diagnosis: Inadequate protein-energy intake Etiology: skipping meal, decreased appetite Signs & Symptoms: patient report Goals: Patient to consume >75% of meals Time Frame: Throughout Stay Deirdre Sarah MS, RD, LD *2048 * Veena Beck, OT - 05/12/2017 3:47 PM CDT OCCUPATIONAL THERAPY PROGRESS NOTE Admitting Diagnosis: AML Leukocytosis Patient seen x1 this date. Documentation reflects all daily treatment sessions. Mobility Progressive Mobility Level: Active bed level mobility Level of Assistance: Stand by assistance Assistive Device: Walker Time Tolerated: 0-10 minutes Activity Limited By: Fatigue;Patient Refused Subjective Pertinent Dx per Physician: 56 year old female with new diagnosis of AML. Patient admitted for start of chemotherapy. Patient is obese with bariatric bed in place. Precautions: Falls;Isolation (droplet) Pain / Complaints: Patient agrees to participate in therapy Comments: Pt c/o R hand numbness > L hand numbness Objective Psychosocial Status: Participates in Therapy with Encouragement Persons Present: None Home Living Type of Home: House Home Layout: One Level;Stairs to Enter w/ Rails Bathroom Shower / Tub: Walk-in Shower Bathroom Toilet: Standard Bathroom Equipment: Built-in Seat in Shower;Shower Chair;Commode;Grab Bars in Shower Bathroom Accessibility: Accessible via Walker Home Equipment: Walker;Commode;Grab Bars;Shower/Tub Bench Prior Function Level Of [place]: Needed assistance with ADLs;Needed assistance with homemaking;Independent with ADLs and functional transfers Lives With: Spouse Receives Help From: Spouse ADL's Where Assessed: Supine, Bed Comment: Pt supine throughout session. Pt declined functional transfers (chair, commode) and ADL tasks. Pt agreeable to bed level functional activity. Pt able to open containers w/ various lids w/ R hand using L hand for stabilization w/ verbal cues for compensatory technique. Pt also able to open containers w/ various lid types w/ L hand using R hand for stabilization. Pt supine at OT departure with all needs within reach. Activity Tolerance Endurance: 2/5 Tolerates 10-20 Minutes Exercise w/Multiple Rests Sitting Balance: (not assessed this date) Cognition Overall Cognitive Status: WFL to Adequately Complete Self Care Tasks Safely Attention: Awake/Alert Education Persons Educated: Patient Teaching Methods: Verbal Instruction Patient Response: Verbalized and Demo Understanding Topics: Role of OT, Goals for Therapy Goal Formulation: With Patient Assessment Assessment: Decreased ADL Status;Decreased Endurance;Decreased Self-Care Trans; Decreased High-Level ADLs Goal Formulation: Patient AM-PAC 6 Clicks Daily Activity Inpatient Putting on and taking off regular lower body clothes?: Total Bathing (Including washing, rinsing, drying): A Lot Toileting, which includes using toilet, bedpan, or urinal: Total Putting on and taking off regular upper body clothing: A Little Taking care of personal grooming such as brushing teeth: None Eating meals?: None Daily Activity Raw Score: 15 Standardized (t-scale) score: 34.69 CMS 0-100% Score: 56.46 CMS G Code Modifier: CK Plan Treatment Interventions: ADL Retraining;Functional Transfer Training;Endurance Training;Patient/Family Training;Equipment Evaluation/Education;Compensatory Technique Education;Fine Motor Coordination Activities OT Frequency: 5x/week Plan for next visit: built up handles for functional activities, commode transfer Further Evaluation Goals Pt Will Tolerate Further ADL Evaluation: w/in1-2 sessions ADL Goals Patient Will Perform Grooming: w/ Stand By Assist Patient Will Perform LE Dressing: At Edge of Bed, Standing at Edge of Bed, w/ Minimum Assist Functional Transfer Goals Pt Will Perform All Functional Transfers: w/ Stand By Assist Arm Goals Pt Will Perform AROM: B UE, 2 Sets, 10 Reps, w/ Good Activity Tolerance Discharge Recommendations: Inpatient setting vs. Home with home health Equipment Recommendations: Too early to be determined Therapist: MARLENE Butler/[place] [id number] Date: 05/12/2017 * Rae Curry - 05/12/2017 3:47 PM CDT Medicine Man Note: Admit Date: 04/24/2017 Patient shared about her journey and what day she was on. Patient shared about her recent procedures. Patient shared that she has a son who lives in the area and he had called regarding her procedures. Patient shared about going walking around the unit and going to the window and looking south at the trees. Customer Relationship Specialist will continue being available for patient as needed. Please page or use consult order if patient requests visit. Date/Time: User: Pager: [phone] 05/12/2017 3:47 PM Rae Curry PCU 5 PCU * Ari Collazo MD - 05/12/2017 12:52 PM CDT Formatting of this note may be different from the original. 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 Hypoglycemia is recurrent in spite of D5 normal saline drip. Recurrent UTI Acute leukemia A. fib CKD stage III Recommendations: - Hypoglycemia has resolved. - well- controlled DM - continue lantus 12 units daily - continue novolog 8 units with meals - continue MDCF - plan to restart glimepiride lower dose at discharge. - She does not agree with us regarding restarting metformin concerning for her CKD. Now her Cr is normal and GFR > 60. 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 We will continue to follow discussed with Dr. Eng History of Present Illness Giselle Moraes is a 56 y.o. female with past medical history of A. fib, type 2 diabetes, CKD stage III, UTI, anxiety was admitted for suspicion for acute leukemia. Endocrinology was consulted for recurrent hypoglycemia. Patient is still tired Eating well. Order breakfast this am Denies nausea , vomitng , abdominal pain Estimated Creatinine Clearance: 124.2 mL/min (based on Cr of 0.56). 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 No pertinent family history. Allergies Allergies Allergen Reactions Ciprofloxacin SEE COMMENTS Per Nephrology doctors. Levofloxacin SEE COMMENTS Per nephrology doctors. Nsaids (Non-Steroidal Anti-Inflammatory Drug) SEE COMMENTS Per nephrology doctors. Bactrim [Sulfamethoxazole-Trimethoprim] SEE COMMENTS Per Nephrology Doctors. Contrast Dye Iv, Iodine Containing [Iodinated Contrast- Oral And Iv Dye] SEE COMMENTS Per nephrology doctors. Review of Systems A comprehensive 14-point review of systems was negative with exception of fatigue Medications Scheduled Meds: acyclovir (ZOVIRAX) tablet 800 mg 800 mg Oral BID atenolol (TENORMIN) tablet 25 mg 25 mg Oral QDAY cefepime (MAXIPIME) 2 g/100 ml iso-osmotic IVPB 2 g Intravenous Q8H* diltiazem CD (cardIZEM CD) capsule 240 mg 240 mg Oral QDAY insulin aspart (NOVOLOG FLEXPEN) injection PEN 0-14 Units 0-14 Units Subcutaneous ACHS insulin aspart (NOVOLOG FLEXPEN) injection PEN 8 Units 8 Units Subcutaneous TID w/ meals insulin glargine (LANTUS SOLOSTAR) injection PEN 12 Units 12 Units Subcutaneous QDAY(12) micafungin (MYCAMINE) 50 mg in sodium chloride 0.9% (NS) 105 mL IVPB 50 mg Intravenous Q24H* polyethylene glycol 3350 (MIRALAX) packet 17 g 1 packet Oral QDAY senna (SENOKOT) tablet 1 tablet 1 tablet Oral BID Continuous Infusions: PRN and Respiratory Meds:acetaminophen Q6H PRN, ALPRAZolam BID PRN, alteplase PRN (Compliance Representative from Rx), hydrOXYzine TID PRN, loperamide PRN, LORazepam Q6H PRN, LORazepam injection Q6H PRN, magnesium sulfate 4 g/50 mL PRN, milk of magnesia ( CONC) Q6H PRN, potassium chloride PRN (Compliance Representative from Rx) OR potassium chloride SR PRN (Compliance Representative from Rx), saliva, synthetic PRN, sodium chloride 0.9% irrigation bottle PRN Physical Examination Vital Signs: Last Vital Signs: 24 Hour Range BP: 119/58 (05/12 832) Temp: 36.8 C (98.3 F) (05/12 832) Pulse: 86 (05/12 832) Respirations: 22 PER MINUTE (05/12 832) SpO2: 98 % (05/12 832) O2 Delivery: Nasal Cannula (05/12 832) BP: (111-128)/(47-75) Temp: [36.6 C (97.8 F)-37.1 C (98.7 F)] Pulse: [60-86] Respirations: [18 PER MINUTE-22 PER MINUTE] SpO2: [98 %-100 %] O2 Delivery: Nasal Cannula General appearance: alert, oriented, looking tired HENT: Dry oral mucosa, dried blood on lips Lungs: no wheezing, rhonchi, rales appreciated Heart: Regular rhythm, reg rate, with no murmur, rub, gallop Abdomen: soft, non-tender, non-distended, normoactive bowel sounds, Ext: No clubbing, cyanosis or edema Skin: no rashes/lesions Lab Review Point of Care Testing (Last 24 hours) Glucose: (!) 129 (05/12/17409) POC Glucose (Download): (!) 151 (05/12/17836) Recent Labs 05/10/1714905/11/1721505/12/17409 NA 138 141 140 K 4.1 3.8 4.2 CL 105 106 107 CO2 30 30 28 GAP 3 5 5 BUN 31* 31* 28* CR 0.77 0.66 0.56 GLU 142* 117* 129* CA 8.1* 8.2* 8.5 ALBUMIN 2.3* 2.3* 2.5* MG 1.9 2.1 1.8 Recent Labs 05/10/1714905/11/1721505/12/17409 WBC 0.5* 0.5* 0.5* HGB 6.8* 6.9* 7.3* HCT 19.9* 19.9* 21.6* PLTCT 14* 10* 24* AST 9 6* 7 ALT 8 6* 6* ALKPHOS 55 70 90 Estimated Creatinine Clearance: 124.2 mL/min (based on Cr of 0.56). Vitals: 05/10/17 1500 05/12/17 1100 Weight: 118.6 kg (261 lb 8 oz) 132 kg (291 lb) Thyroid Studies No results found for: TSH, FREET4, FREEINDEX No results found for: FREET3, [id number], THYBINDGLB Ari Collazo MD Endocrinology Fellow [id number] [phone] Associated attestation - Karla Eng MD - 05/12/2017 4:39 PM CDT Formatting of this note may be different from the original. ATTESTATION I personally performed the [place]riz[place] portions of the E/M visit, discussed case with resident and concur with resident documentation of history, physical exam, assessment, and treatment plan unless otherwise noted. Staff name: Karla Eng MD Date: 05/12/2017 * Arnold Sparks PT - 05/12/2017 10:38 AM CDT PHYSICAL THERAPY PROGRESS NOTE MOBILITY: Mobility Progressive Mobility Level: Walk in hallway Distance Walked (feet): 80 ft Level of Assistance: Assist X1 Assistive Device: Walker Time Tolerated: 11-30 minutes Activity Limited By: Fatigue SUBJECTIVE: Subjective Significant hospital events: Patient is a 56 year old female with new diagnosis of AML. Patient admitted for start of chemotherapy. Patient is obese with bariatric bed in place. Mental / Cognitive Status: Alert;Cooperative Persons Present: Nursing Staff Pain: Patient has no complaint of pain Pain Interventions: Patient agrees to participate in therapy Comments: Patient resting in bed, nursing staff needing weight as well as to remove gonzalez and get patient to shower. PT assists with weight measurement and ambulation before gonzalez removal and shower. Ambulation Assist: Independent Mobility in Community with Device Patient Owned Equipment: Roller Walker Home Situation: Lives with Family Type of Home: House Entry Stairs: 3-5 Stairs;Rail on Both Sides In-Home Stairs: Able to Live on One Level BED MOBILITY/TRANSFERS: Bed Mobility/Transfers Bed Mobility: Supine to Sit: Standby Assist;Head of Bed Elevated;Use of Rail Transfer Type: Sit to Stand Transfer: Assistance Level: From;Bed;Standby Assist Transfer: Assistive Device: Roller Walker Transfers: Type Of Assistance: Verbal Cues;For Safety Considerations Other Transfer Type: Sit to/from Stand Other Transfer: Assistance Level: To/From;Wheelchair;Minimal Assist;Standby Assist Other Transfer: Assistive Device: Roller Walker Other Transfer: Type Of Assistance: Verbal Cues;For Safety Considerations End Of Activity Status: Sitting at Edge of Bed GAIT: Gait Gait Distance: 80 feet Gait: Assistance Level: Minimal Assist;Safety Considerations (wheelchair follow) Gait: Assistive Device: Roller Walker Gait: Descriptors: Pace: Slow;Decreased foot clearance RLE;Decreased foot clearance LLE;Decreased step length Comments: Patient needing resting seated breaks at times due to fatigue. EDUCATION: Education Persons Educated: Patient Patient Barriers To Learning: Anxiety Interventions: Repetition of Instructions Teaching Methods: Verbal Instruction Patient Response: Verbalized Understanding;More Instruction Required Topics: Mobility Progression;Up with Assist Only;Importance of Increasing Activity ASSESSMENT/PROGRESS: Assessment/Progress Impaired Mobility Due To: Decreased Strength;Decreased Activity Tolerance; Medical Status Limitation Assessment/Progress: Expect Slow Progress Comments: Patient demonstrates good ability to mobilize but lacks the mental endurance to push herself through difficult tasks. Patient easily gives in when she is challenged outside of her level of comfort. PT attempts to encourage patient to keep pushing herself but further treatment will be beneficial to accomplish this. AM-PAC 6 Clicks Basic Mobility Inpatient Turning from your back to your side while in a flat bed without using bed rails : A Little Moving from lying on your back to sitting on the side of a flatbed without using bedrails : A Little Moving to and from a bed to a chair (including a wheelchair): A Little Standing up from a chair using your arms (e.g. wheelchair, or bedside chair): A Little To walk in hospital room: A Little Climbing 3-5 steps with a railing: A Lot Raw Score: 17 Standardized (T-scale) Score: 39.67 Basic Mobility CMS 0-100%: 43.83 CMS G Code Modifier for Basic Mobility: CK GOALS: Goals Goal Formulation: With Patient Time For Goal Achievement: 7 days Pt Will Go Supine To/From Sit: w/ Minimal Assist Pt Will Transfer Bed/Chair: w/ Minimal Assist Pt Will Transfer Sit to Stand: w/ Minimal Assist Pt Will Ambulate: 11-30 Feet, w/ Walker, w/ Minimal Assist PLAN: Plan Treatment Interventions: Mobility Training;Strengthening;Balance Activities; Coordination Training;Endurance Training Plan Frequency: 5 Days per Week Comments: Continue to work on ambulation and eventually stairs for home entry. RECOMMENDATIONS: PT Discharge Recommendations PT Discharge Recommendations: Inpatient Setting;to address deficits, maximize function and improve safety Equipment Recommendations: Patient owns necessary equipment Comments: Patient wants to return home, until she can prove she is safe to do so , will continue to recommend inpatient setting. Therapist: Arnold Sparks DPT Date: 05/12/2017 * Cristina Sy MD - 05/12/2017 9:29 AM CDT Formatting of this note may be different from the original. 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 Full NGS pending Transferred from [facility] with leucocytosis concerning for AML - BMBx shows 77% blasts, M5 (monocytic), cytos and full NGS pending - [facility] plan for [facility] and [facility]1 [facility] - Patient on DTI- apixaban for atrial fibrillation, now on hold - Obtain 2D echo - normal, EF 60%. Cardiology consulted. - Monitor TLS labs and DIC labs daily - Start 7+3 04/28/2017, FLT3 ITD positive, has not gotten midostaurin yet, so will plan day 14 bone marrow - Day 15 of 7+3 - s/p LP with IT chemo today as prophy given high WBC at presentation - Flow negative, cytology pending Heme: - Pancytopenia due to chemotherapy, monitor for transfusion needs to keep Hgb>7 and platelets >10K. No transfusions today - Previously on anticoagulation with apixaban for Atrial fibrillation, will hold for now with thrombocytopenia - Anticoagulation with lovenox for DVT ppx contraindicated due to thrombocytopenia, SCD's when on bed FEN/Renal: - Creatinine improved. - Appreciate renal recommendations - Monitor electrolytes, will be high goal replacement with h/o atrial fibrillation. No replacements today - Close monitoring of fluid status - Monitor I/O and daily weights to assess for need for prn lasix. ID: Afebrile, Temperature up to 100.2 on 05/09/17 - Presents with UTI and fever - Urine cx from [facility] 04/23: + E.Coli resistant to ampicillin, Bactrim, Nitrofurantoin. Intermediate resistance to gent and Unasyn. Susceptible to ceftriaxone, zosyn, meropenem, cipro and aztreonam - Blood cx x 2 from [facility] 04/23: NGTD - Cefepime continues, had vancomycin and daptomycin on 04/24-04/25, discontinued, restart vanco if febrile. Will plan to continue until neutropenia resolves - Has urinary catheter in place, did have urinary retention after trying to remove, will try again in one week after finishing antibiotics. - On prophylaxis with micafungin (due to planned midostaurin) and acyclovir - for any neutropenic fever, will check chest CT as well given risk of pneumonia with poor resp effort due to weakness/obesity GI: - No nausea, vomiting. Had multiple BM 05/03/17. Patient felt better after BM. C.diff negative - Low albumin. Liver functions normal - Obese, BMT>40 - Standing weights difficult due to patient factors Endo: - Has type II DM, on glimiperide has been discontinued on admission - Had persistent low blood sugars, now blood sugars better - Endocrinology consultation obtained and appreciate recommendations; On lantus 12 units, 7 units Novolog with meals and [facility] CVS: - H/o atrial fibrillation, rate controlled. 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 Atenolol held 05/02/17 night due to 2 sec pause. Re started on 05/05 - Mild moderate - Will hold apixaban - Cardiology opinion appreciated, 2d Echo- normal EF 60%. Derm: Facial hyperpigmentation on the right side of face. Derm to evaluate. Benign lesions, recommended topical tx only Psych/Social: Pleasant, no issues - On alprazolam for anxiety, currently continued at low dose - Lives in [place], , currently on disability, son lives in [facility] - Need to schedule family meeting to discuss future treatment course, had first discussion with and family friend on 04/28. PT/OT: Mobility is a big issue. Subjective: Giselle Moraes is a 56 y.o. female. Frustrated with catheter, frustrated with PT Review of Systems: Constitutional: + fatigue, anorexia, appetite change, HEENT: denies nasal congestion or nosebleed Respiratory: mild SOB with moving around. Cardiovascular: Negative for chest pain, chest pressure, palpitations Gastrointestional: diarrhea improving. 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 Psych: + anxiety Objective: Medications: Scheduled Meds: acyclovir (ZOVIRAX) tablet 800 mg 800 mg Oral BID atenolol (TENORMIN) tablet 25 mg 25 mg Oral QDAY cefepime (MAXIPIME) 2 g/100 ml iso-osmotic IVPB 2 g Intravenous Q8H* diltiazem CD (cardIZEM CD) capsule 240 mg 240 mg Oral QDAY insulin aspart (NOVOLOG FLEXPEN) injection PEN 0-14 Units 0-14 Units Subcutaneous ACHS insulin aspart (NOVOLOG FLEXPEN) injection PEN 8 Units 8 Units Subcutaneous TID w/ meals insulin glargine (LANTUS SOLOSTAR) injection PEN 12 Units 12 Units Subcutaneous QDAY(12) micafungin (MYCAMINE) 50 mg in sodium chloride 0.9% (NS) 105 mL IVPB 50 mg Intravenous Q24H* polyethylene glycol 3350 (MIRALAX) packet 17 g 1 packet Oral QDAY senna (SENOKOT) tablet 1 tablet 1 tablet Oral BID Continuous Infusions: PRN and Respiratory Meds:acetaminophen Q6H PRN, ALPRAZolam BID PRN, alteplase PRN (Compliance Representative from Rx), hydrOXYzine TID PRN, loperamide PRN, LORazepam Q6H PRN, LORazepam injection Q6H PRN, magnesium sulfate 4 g/50 mL PRN, milk of magnesia ( CONC) Q6H PRN, potassium chloride PRN (Compliance Representative from Rx) OR potassium chloride SR PRN (Compliance Representative from Rx), saliva, synthetic PRN, sodium chloride 0.9% irrigation bottle PRN Vital Signs: Last Filed Vital Signs: 24 Hour Range BP: 125/61 (05/12 407) Temp: 36.9 C (98.5 F) (05/12 407) Pulse: 81 (05/12 407) Respirations: 18 PER MINUTE (05/12 407) SpO2: 100 % (05/12 407) O2 Delivery: Nasal Cannula (05/12 407) SpO2 Pulse: 78 (05/11 1045) BP: (101-128)/(47-75) Temp: [36.6 C (97.8 F)-37.1 C (98.7 F)] Pulse: [60-90] Respirations: [9 PER MINUTE-21 PER MINUTE] SpO2: [95 %-100 %] O2 Delivery: Nasal Cannula Intensity Pain Scale 0-10 (Pain 1): (not recorded) Vitals: 05/10/17 1500 Weight: 118.6 kg (261 lb 8 oz) Intake/Output Summary: (Last 24 hours) Intake/Output Summary (Last 24 hours) at 05/12/17 0929 Last data filed at 05/12/17 0600 Gross per 24 hour Intake 880 ml Output 2330 ml Net -1450 ml Physical Exam: Performance Status (Karnofsky): 50% Requires considerable assistance and frequent medical care VS reviewed, pt afebrile General: Alert, cooperative, no distress, appears stated age/ Morbidly obese Head: Normocephalic, without obvious abnormality, atraumatic Eyes:Anicteric sclera OP: Dry, no lesions Lungs: decreased bs throughout but without rales or wheezing Heart: Irregular rhythm Abdomen: Soft, non-tender. Bowel sounds normal. No masses. No organomegaly. Extremities: Trace edema to feet Skin: Facial hyperpigmentation on right cheek, long standing per patient. + buising and petechiae Neurologic: Generalized weakness, limited mobility Lab Review: Results for orders placed or performed during the hospital encounter of (from the past 48 hour(s)) POC GLUCOSE Collection Time: 05/10/17 9:38 AM # # Low-High Glucose, POC 147 (H) 70 - 100 MG/DL POC GLUCOSE Collection Time: 05/10/17 12:39 PM # # Low-High Glucose, POC 193 (H) 70 - 100 MG/DL POC GLUCOSE Collection Time: 05/10/17 5:27 PM # # Low-High Glucose, POC 184 (H) 70 - 100 MG/DL POC GLUCOSE Collection Time: 05/10/17 8:13 PM # # Low-High Glucose, POC 148 (H) 70 - 100 MG/DL COMPREHENSIVE METABOLIC PANEL Collection Time: 05/11/17 2:16 AM # # Low-High Sodium 141 137 - 147 MMOL/L Potassium 3.8 3.5 - 5.1 MMOL/L Chloride 106 98 - 110 MMOL/L Glucose 117 (H) 70 - 100 MG/DL Blood Urea Nitrogen 31 (H) 7 - 25 MG/DL Creatinine 0.66 0.4 - 1.00 MG/DL Calcium 8.2 (L) 8.5 - 10.6 MG/DL Total Protein 5.2 (L) 6.0 - 8.0 G/DL Total Bilirubin 1.3 (H) 0.3 - 1.2 MG/DL Albumin 2.3 (L) 3.5 - 5.0 G/DL Alk Phosphatase 70 25 - 110 U/L AST (SGOT) 6 (L) 7 - 40 U/L CO2 30 21 - 30 MMOL/L ALT (SGPT) 6 (L) 7 - 56 U/L Anion Gap 5 3 - 12 eGFR Non >60 >60 mL/min eGFR >60 >60 mL/min MAGNESIUM Collection Time: 05/11/17 2:16 AM # # Low-High Magnesium 2.1 1.6 - 2.6 mg/dL CBC AND DIFF Collection Time: 05/11/17 2:16 AM # # Low-High White Blood Cells 0.5 (LL) 4.5 - 11.0 K/UL RBC 2.32 (L) 4.0 - 5.0 M/UL Hemoglobin 6.9 (L) 12.0 - 15.0 GM/DL Hematocrit 19.9 (L) 36 - 45 % MCV 85.4 80 - 100 FL MCH 29.8 26 - 34 PG MCHC 34.9 32.0 - 36.0 G/DL RDW 16.9 (H) 11 - 15 % Platelet Count 10 (LL) 150 - 400 K/UL MPV 7.5 7 - 11 FL Neutrophils 1 (L) 41 - 77 % Lymphocytes 98 (H) 24 - 44 % Monocytes 1 (L) 4 - 12 % Eosinophils 0 0 - 5 % Basophils 0 0 - 2 % Absolute Neutrophil Count 0.00 (L) 1.8 - 7.0 K/UL Absolute Lymph Count 0.50 (L) 1.0 - 4.8 K/UL Absolute Monocyte Count 0.00 0 - 0.80 K/UL Absolute Eosinophil Count 0.00 0 - 0.45 K/UL Absolute Basophil Count 0.00 0 - 0.20 K/UL POC GLUCOSE Collection Time: 05/11/17 3:12 AM # # Low-High Glucose, POC 123 (H) 70 - 100 MG/DL PREPARE APHERESIS PLATELETS Collection Time: 05/11/17 4:10 AM # # Low-High Units Ordered 1 Unit Number [id number] Blood Component Type APHERESIS PLT,LEUKO REDUCED,IRRADIATED,2ND CONT. Unit Division 0 Status OF Unit TRANSFUSED Transfusion Status OK TO TRANSFUSE BONE MARROW ASP Collection Time: 05/11/17 9:51 AM # # Low-High Bone Marrow Asp SEE PATHOLOGY REPORT LEUKEMIA/LYMPHOMA PNL, BONE MARROW Collection Time: 05/11/17 9:51 AM # # Low-High Leuk/Lymph Interpretation SEE PATHOLOGY REPORT Specimen/LLM BONE MARROW BONE MARROW BIOPSY IR Collection Time: 05/11/17 9:51 AM # # Low-High Bone Marrow BX IR SEE PATHOLOGY REPORT GLUCOSE-CSF Collection Time: 05/11/17 10:09 AM # # Low-High Glucose,CSF 64 40 - 75 MG/DL Xanthrochromia,CSF NONE TOTAL PROTEIN-CSF Collection Time: 05/11/17 10:09 AM # # Low-High Total Protein,CSF 31 15 - 45 MG/DL CELL COUNT W/DIFF-CSF Collection Time: 05/11/17 10:09 AM # # Low-High Cell Count Tube,CSF TUBE 1 White Blood Cells,CSF 1 <5 /UL Red Blood Cells,CSF 18 /UL Lymphocytes, CSF 64 % Monocyte/Hisotocyte, CSF 36 % Clarity,CSF CLEAR Path Interpretation, CSF Pathologist Signature LEUKEMIA/LYMPHOMA PANEL FLUID/TISSUE Collection Time: 05/11/17 10:09 AM # # Low-High Leuk/Lymph Interpretation SEE PATHOLOGY REPORT Specimen/LLM CSF CSF TUBE VOLUMES Collection Time: 05/11/17 10:09 AM # # Low-High CSF Tube 1 5.0 mL CSF Tube 2 0.0 mL CSF Tube 3 0.0 mL CSF Tube 4 0.0 mL FLOW CYTOMETRY Collection Time: 05/11/17 10:09 AM # # Low-High PATHOLOGY REPORT [facility] [email or web address] Doris Rodarte MD, Director of Clinical Laboratory Fede West MD, Director of Flow Cytometry Laboratory Department of Pathology and Laboratory Medicine [address] [place] [id number] Surgical Pathology Office: [phone] FLOW CYTOMETRY REPORT NAME: GISELLE MORAES SURG PATH #: [id number] MR #: [id number] SPECIMEN CLASS: LC BILLING #: [id number] ALT ID #: LOCATION: [id number] DATE OF PROCEDURE: 05/11/2017 AGE: 56 SEX: F DATE RECEIVED: 05/11/2017 : 1960 TIME RECEIVED: 11:28 PHYSICIAN: KEENA DRIVER DATE OF REPORT: 05/11/2017 COPY TO: MD BRIE ESTRADA STEVEN Q [facility] ULIS WHITLEY MD MALE,[facility] CRISTINA SY MD DATE OF PRINTIN05/11/2017 Material Received: A: Cerebrospinal fluid tube 1 History: 56 year old female with history of acute myeloid leukemia. ############################################################## ########## Final Diagnosis: Cerebrospinal fluid tube 1, flow cytometry: Negative immunophenotypic study. See interpretation. Interpretation: Myeloid blasts comprise 0% of total events. There is no immunophenotypic evidence of acute myeloid leukemia or neoplastic myeloid blasts. Attestation: By this signature, I attest that I have personally formulated the final interpretation expressed in this report and that the above diagnosis is based upon my examination of the slides and/or other material indicated in this report. +++Electronically Signed Out By+++ sue/05/11/2017 Interpreted by: MD Linnette Rangel MD, PhD Fellow 05/11/2017 ######################################################################## Lab Data: Flow Cytometry - Acute Myeloid Leukemia Screen Myeloid Associated Markers (% Positive Cells): ZL16j=1; CD13=0; CD33=0; LG505=0 Miscellaneous Markers (% Pos itive Cells): CD34=0; WN21=745; HLA-Dr=0 Cell Viability (%): QNS Number of Cells Analyzed: 138 Total Number of Markers: 7 Summary of Marker Combinations: 34/117/33/13/11b/45/38/Dr This test was developed and its performance characteristics determined by the [facility] Flow Cytometry Laboratory. It has not been cleared or approved by the U.S. Food and Drug Administration (FDA). The FDA has determined that such clearance or approval is not necessary. POC GLUCOSE Collection Time: 05/11/17 11:42 AM # # Low-High Glucose, POC 149 (H) 70 - 100 MG/DL POC GLUCOSE Collection Time: 05/11/17 4:49 PM # # Low-High Glucose, POC 149 (H) 70 - 100 MG/DL POC GLUCOSE Collection Time: 05/11/17 8:29 PM # # Low-High Glucose, POC 146 (H) 70 - 100 MG/DL POC GLUCOSE Collection Time: 05/11/17 10:54 PM # # Low-High Glucose, POC 146 (H) 70 - 100 MG/DL COMPREHENSIVE METABOLIC PANEL Collection Time: 05/12/17 4:10 AM # # Low-High Sodium 140 137 - 147 MMOL/L Potassium 4.2 3.5 - 5.1 MMOL/L Chloride 107 98 - 110 MMOL/L Glucose 129 (H) 70 - 100 MG/DL Blood Urea Nitrogen 28 (H) 7 - 25 MG/DL Creatinine 0.56 0.4 - 1.00 MG/DL Calcium 8.5 8.5 - 10.6 MG/DL Total Protein 5.3 (L) 6.0 - 8.0 G/DL Total Bilirubin 1.4 (H) 0.3 - 1.2 MG/DL Albumin 2.5 (L) 3.5 - 5.0 G/DL Alk Phosphatase 90 25 - 110 U/L AST (SGOT) 7 7 - 40 U/L CO2 28 21 - 30 MMOL/L ALT (SGPT) 6 (L) 7 - 56 U/L Anion Gap 5 3 - 12 eGFR Non >60 >60 mL/min eGFR >60 >60 mL/min MAGNESIUM Collection Time: 05/12/17 4:10 AM # # Low-High Magnesium 1.8 1.6 - 2.6 mg/dL CBC AND DIFF Collection Time: 05/12/17 4:10 AM # # Low-High White Blood Cells 0.5 (LL) 4.5 - 11.0 K/UL RBC 2.51 (L) 4.0 - 5.0 M/UL Hemoglobin 7.3 (L) 12.0 - 15.0 GM/DL Hematocrit 21.6 (L) 36 - 45 % MCV 86.0 80 - 100 FL MCH 29.2 26 - 34 PG MCHC 34.0 32.0 - 36.0 G/DL RDW 15.4 (H) 11 - 15 % Platelet Count 24 (LL) 150 - 400 K/UL MPV 7.5 7 - 11 FL POC GLUCOSE Collection Time: 05/12/17 8:37 AM # # Low-High Glucose, POC 151 (H) 70 - 100 MG/DL Radiology Review: No pertinent radiology. Cristina Sy MD * Tamiko Ramirez, NEVA - 05/12/2017 6:06 AM CDT Shift: 7p-7a NEWS Score: 0- 2 (supplemental oxygen)- 2 (supplemental oxygen) Pain: Pt reported no pain this shift. Nutrition: Consistent carb/ neutropenic diet. Pt having poor PO intake, states "nothing smells or tastes good". GI/: LBM: 05/11. Voiding adequately with a gonzalez- dark yellow urine. Activity: Assist x2. Pt did not get out of bed this shift. Family: No family at bedside this shift. Last Shower: 05/11 New Events or Follow-up: Magnesium replaced per high replacement BMT protocol. * Maritza Huddleston RN - 05/11/2017 6:42 PM CDT End of Shift Note NEWS score : 0800: 1 1200: 0 1600: 0 Nutrition: Neutropenic diet. Poor appetite. No complaints of N/V at this time Activity:Up with x2 assist, gait belt, walker Pain: No complaints of pain this shift. PRN's available. GI/: Adequate urine output through shift, Last BM 05/11 Family: No family at bedside Last shower and linen change: 05/11 Follow up: LP and Bmbx today. PT refusing to get up to standing scale, bed zeroed while pt was off unit, * Veena Beck, OT - 05/11/2017 3:33 PM CDT OCCUPATIONAL THERAPY NOTE The patient was not seen due to: Patient not available Patient with other discipline this afternoon. OT will continue to follow and provide intervention as indicated. Therapist: Veena Beck, OTR/L [id number] Date: 05/11/2017 * Arnold Sparks, PT - 05/11/2017 2:41 PM CDT PHYSICAL THERAPY NOTE PT met with patient this afternoon. Patient had just finished a bed bath. Patient seems to be in good spirits but does not have much reason as to why she was not up mobilizing more frequently in the past 4 days. Patient demonstrated good ability to ambulate out of the room last Wednesday but states she just did not do much over the weekend and kept talking about numbness in her right hand. Patient adamant that she will not go to rehab. PT discussed with patient that she is going to have to prove her ability to mobilize safely before her medical team will discharge her back home. Patient states she understands and that she is going to increase her activity throughout the week. PT plans to work on ambulation tomorrow and stairs by the end of the week. Therapist: Arnold Sparks, DPT Date: 05/11/2017 * Cristina Sy MD - 05/11/2017 10:58 AM CDT Formatting of this note may be different from the original. 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 Full NGS pending Transferred from [facility] with leucocytosis concerning for AML - BMBx shows 77% blasts, M5 (monocytic), cytos and full NGS pending - Will plan for LP [facility]1 [facility] - Patient on DTI- apixaban for atrial fibrillation, now on hold - Obtain 2D echo - normal, EF 60%. Cardiology consulted. - Monitor TLS labs and DIC labs daily - Start 7+3 04/28/2017, FLT3 ITD positive, has not gotten midostaurin yet, so will plan day 14 bone marrow - Day 14 of 7+3 - s/p LP with IT chemo today as prophy given high WBC at presentation Heme: - Pancytopenia due to chemotherapy, monitor for transfusion needs to keep Hgb>7 and platelets >10K. Blood, platelet transfusion today - Previously on anticoagulation with apixaban for Atrial fibrillation, will hold for now with thrombocytopenia - Anticoagulation with lovenox for DVT ppx contraindicated due to thrombocytopenia, SCD's when on bed FEN/Renal: - Creatinine improved. - Appreciate renal recommendations - Monitor electrolytes, will be high goal replacement with h/o atrial fibrillation. K replacements today - Close monitoring of fluid status - Monitor I/O and daily weights to assess for need for prn lasix. ID: Afebrile, Temperature up to 100.2 on 05/09/17 - Presents with UTI and fever - Urine cx from [facility] 04/23: + E.Coli resistant to ampicillin, Bactrim, Nitrofurantoin. Intermediate resistance to gent and Unasyn. Susceptible to ceftriaxone, zosyn, meropenem, cipro and aztreonam - Blood cx x [address] [facility] 10/6: NGTD - Cefepime continues, had vancomycin and daptomycin on 04/24-04/25, discontinued, restart vanco if febrile. Will plan to continue until neutropenia resolves - Has urinary catheter in place, did have urinary retention after trying to remove, will try again in one week after finishing antibiotics. - On prophylaxis with micafungin (due to planned midostaurin) and acyclovir - for any neutropenic fever, will check chest CT as well given risk of pneumonia with poor resp effort due to weakness/obesity GI: - No nausea, vomiting. Had multiple BM 05/03/17. Patient felt better after BM. C.diff negative - Low albumin. Liver functions normal - Obese, BMT>40 - Standing weights difficult due to patient factors Endo: - Has type II DM, on glimiperide has been discontinued on admission - Had persistent low blood sugars, now blood sugars better - Endocrinology consultation obtained and appreciate recommendations; On lantus 12 units, 7 units Novolog with meals and [facility] CVS: - H/o atrial fibrillation, rate controlled. 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 Atenolol held 05/02/17 night due to 2 sec pause. Re started on 05/05 - Mild moderate - Will hold apixaban - Cardiology opinion appreciated, 2d Echo- normal EF 60%. Derm: Facial hyperpigmentation on the right side of face. Derm to evaluate. Psych/Social: Pleasant, no issues - On alprazolam for anxiety, currently continued at low dose - Lives in [facility], , currently on disability, son lives in [facility] - Need to schedule family meeting to discuss future treatment course, had first discussion with and family friend on 04/28. PT/OT: Mobility is a big issue. Subjective: Giselle Moraes is a 56 y.o. female. Pt had some discomfort with procedures this morning. Review of Systems: Constitutional: + fatigue, anorexia, appetite change, HEENT: Negative. No ear/ nose problems. No gum bleeding. Facial rash of long duration Respiratory: mild SOB with moving around. Cardiovascular: Negative for chest pain, chest pressure, palpitations, 2+ edema in extremeties Gastrointestional: diarrhea improving. No abdominal pain/ nausea or vomiting, Gernitourinary: has Gonzalez in place Musculoskeletal: cannot walk or get up without assistance, severe neuropathy and right knee pain since surgery Skin: + bruising and petechiae Neuro: Long standing neuropathy of hands and feet Psych: + anxiety Objective: Medications: Scheduled Meds: acyclovir (ZOVIRAX) tablet 800 mg 800 mg Oral BID atenolol (TENORMIN) tablet 25 mg 25 mg Oral QDAY cefepime (MAXIPIME) 2 g/100 ml iso-osmotic IVPB 2 g Intravenous Q8H* diltiazem CD (cardIZEM CD) capsule 240 mg 240 mg Oral QDAY insulin aspart (NOVOLOG FLEXPEN) injection PEN 0-14 Units 0-14 Units Subcutaneous ACHS insulin aspart (NOVOLOG FLEXPEN) injection PEN 8 Units 8 Units Subcutaneous TID w/ meals insulin glargine (LANTUS SOLOSTAR) injection PEN 12 Units 12 Units Subcutaneous QDAY(12) LORazepam (ATIVAN) tablet 0.5 mg 0.5 mg Oral ONCE micafungin (MYCAMINE) 50 mg in sodium chloride 0.9% (NS) 105 mL IVPB 50 mg Intravenous Q24H* polyethylene glycol 3350 (MIRALAX) packet 17 g 1 packet Oral QDAY senna (SENOKOT) tablet 1 tablet 1 tablet Oral BID Continuous Infusions: PRN and Respiratory Meds:acetaminophen Q6H PRN, ALPRAZolam BID PRN, alteplase PRN (Compliance Representative from Rx), hydrOXYzine TID PRN, loperamide PRN, LORazepam Q6H PRN, LORazepam injection Q6H PRN, magnesium sulfate 4 g/50 mL PRN, milk of magnesia ( CONC) Q6H PRN, potassium chloride PRN (Compliance Representative from Rx) OR potassium chloride SR PRN (Compliance Representative from Rx), saliva, synthetic PRN, sodium chloride 0.9% irrigation bottle PRN Vital Signs: Last Filed Vital Signs: 24 Hour Range BP: 101/58 (05/11 1045) Temp: 36.9 C (98.4 F) (05/11 08) Pulse: 80 (05/11 1045) Respirations: 20 PER MINUTE (05/11 104) SpO2: 95 % (05/11 104) O2 Delivery: None (Room Air) (05/11 1045) SpO2 Pulse: 78 (05/11 1045) BP: (101-138)/(45-79) Temp: [36.3 C (97.3 F)-37.4 C (99.3 F)] Pulse: [62-98] Respirations: [9 PER MINUTE-27 PER MINUTE] SpO2: [93 %-100 %] O2 Delivery: None (Room Air) Intensity Pain Scale 0-10 (Pain 1): (not recorded) Vitals: 05/10/17 1500 Weight: 118.6 kg (261 lb 8 oz) Intake/Output Summary: (Last 24 hours) Intake/Output Summary (Last 24 hours) at 05/11/17 1058 Last data filed at 05/11/17 1035 Gross per 24 hour Intake 750.42 ml Output 4455 ml Net -3704.58 ml Physical Exam: Performance Status ([place]): 40% Disabled, requires special care and assistance VS reviewed, pt afebrile General: Alert, cooperative, no distress, appears stated age/ Morbidly obese Head: Normocephalic, without obvious abnormality, atraumatic Eyes:\\Anicteric sclera OP: Without erythema or ulcers Lungs: decreased bs throughout Heart: Irregular rhythm Abdomen: Soft, non-tender. Bowel sounds normal. No masses. No organomegaly. Extremities: Trace edema to feet Skin: Facial hyperpigmentation on right cheek, long standing per patient. + buising and petechiae Neurologic: Generalized weakness, limited mobility Lab Review: Results for orders placed or performed during the hospital encounter of (from the past 48 hour(s)) POC GLUCOSE Collection Time: 05/09/17 11:01 AM # # Low-High Glucose, POC 145 (H) 70 - 100 MG/DL POC GLUCOSE Collection Time: 05/09/17 1:40 PM # # Low-High Glucose, POC 184 (H) 70 - 100 MG/DL POC GLUCOSE Collection Time: 05/09/17 5:26 PM # # Low-High Glucose, POC 106 (H) 70 - 100 MG/DL POC GLUCOSE Collection Time: 05/09/17 10:05 PM # # Low-High Glucose, POC 142 (H) 70 - 100 MG/DL COMPREHENSIVE METABOLIC PANEL Collection Time: 05/10/17 1:50 AM # # Low-High Sodium 138 137 - 147 MMOL/L Potassium 4.1 3.5 - 5.1 MMOL/L Chloride 105 98 - 110 MMOL/L Glucose 142 (H) 70 - 100 MG/DL Blood Urea Nitrogen 31 (H) 7 - 25 MG/DL Creatinine 0.77 0.4 - 1.00 MG/DL Calcium 8.1 (L) 8.5 - 10.6 MG/DL Total Protein 5.1 (L) 6.0 - 8.0 G/DL Total Bilirubin 1.2 0.3 - 1.2 MG/DL Albumin 2.3 (L) 3.5 - 5.0 G/DL Alk Phosphatase 55 25 - 110 U/L AST (SGOT) 9 7 - 40 U/L CO2 30 21 - 30 MMOL/L ALT (SGPT) 8 7 - 56 U/L Anion Gap 3 3 - 12 eGFR Non >60 >60 mL/min eGFR >60 >60 mL/min MAGNESIUM Collection Time: 05/10/17 1:50 AM # # Low-High Magnesium 1.9 1.6 - 2.6 mg/dL CBC AND DIFF Collection Time: 05/10/17 1:50 AM # # Low-High White Blood Cells 0.5 (LL) 4.5 - 11.0 K/UL RBC 2.35 (L) 4.0 - 5.0 M/UL Hemoglobin 6.8 (L) 12.0 - 15.0 GM/DL Hematocrit 19.9 (L) 36 - 45 % MCV 84.7 80 - 100 FL MCH 29.0 26 - 34 PG MCHC 34.3 32.0 - 36.0 G/DL RDW 17.0 (H) 11 - 15 % Platelet Count 14 (LL) 150 - 400 K/UL MPV 7.9 7 - 11 FL Neutrophils 2 (L) 41 - 77 % Lymphocytes 97 (H) 24 - 44 % Monocytes 1 (L) 4 - 12 % Eosinophils 0 0 - 5 % Basophils 0 0 - 2 % Absolute Neutrophil Count 0.00 (L) 1.8 - 7.0 K/UL Absolute Lymph Count 0.50 (L) 1.0 - 4.8 K/UL Absolute Monocyte Count 0.00 0 - 0.80 K/UL Absolute Eosinophil Count 0.00 0 - 0.45 K/UL Absolute Basophil Count 0.00 0 - 0.20 K/UL POC GLUCOSE Collection Time: 05/10/17 3:36 AM # # Low-High Glucose, POC 127 (H) 70 - 100 MG/DL POC GLUCOSE Collection Time: 05/10/17 9:38 AM # # Low-High Glucose, POC 147 (H) 70 - 100 MG/DL POC GLUCOSE Collection Time: 05/10/17 12:39 PM # # Low-High Glucose, POC 193 (H) 70 - 100 MG/DL POC GLUCOSE Collection Time: 05/10/17 5:27 PM # # Low-High Glucose, POC 184 (H) 70 - 100 MG/DL POC GLUCOSE Collection Time: 05/10/17 8:13 PM # # Low-High Glucose, POC 148 (H) 70 - 100 MG/DL COMPREHENSIVE METABOLIC PANEL Collection Time: 05/11/17 2:16 AM # # Low-High Sodium 141 137 - 147 MMOL/L Potassium 3.8 3.5 - 5.1 MMOL/L Chloride 106 98 - 110 MMOL/L Glucose 117 (H) 70 - 100 MG/DL Blood Urea Nitrogen 31 (H) 7 - 25 MG/DL Creatinine 0.66 0.4 - 1.00 MG/DL Calcium 8.2 (L) 8.5 - 10.6 MG/DL Total Protein 5.2 (L) 6.0 - 8.0 G/DL Total Bilirubin 1.3 (H) 0.3 - 1.2 MG/DL Albumin 2.3 (L) 3.5 - 5.0 G/DL Alk Phosphatase 70 25 - 110 U/L AST (SGOT) 6 (L) 7 - 40 U/L CO2 30 21 - 30 MMOL/L ALT (SGPT) 6 (L) 7 - 56 U/L Anion Gap 5 3 - 12 eGFR Non >60 >60 mL/min eGFR >60 >60 mL/min MAGNESIUM Collection Time: 05/11/17 2:16 AM # # Low-High Magnesium 2.1 1.6 - 2.6 mg/dL CBC AND DIFF Collection Time: 05/11/17 2:16 AM # # Low-High White Blood Cells 0.5 (LL) 4.5 - 11.0 K/UL RBC 2.32 (L) 4.0 - 5.0 M/UL Hemoglobin 6.9 (L) 12.0 - 15.0 GM/DL Hematocrit 19.9 (L) 36 - 45 % MCV 85.4 80 - 100 FL MCH 29.8 26 - 34 PG MCHC 34.9 32.0 - 36.0 G/DL RDW 16.9 (H) 11 - 15 % Platelet Count 10 (LL) 150 - 400 K/UL MPV 7.5 7 - 11 FL Neutrophils 1 (L) 41 - 77 % Lymphocytes 98 (H) 24 - 44 % Monocytes 1 (L) 4 - 12 % Eosinophils 0 0 - 5 % Basophils 0 0 - 2 % Absolute Neutrophil Count 0.00 (L) 1.8 - 7.0 K/UL Absolute Lymph Count 0.50 (L) 1.0 - 4.8 K/UL Absolute Monocyte Count 0.00 0 - 0.80 K/UL Absolute Eosinophil Count 0.00 0 - 0.45 K/UL Absolute Basophil Count 0.00 0 - 0.20 K/UL POC GLUCOSE Collection Time: 05/11/17 3:12 AM # # Low-High Glucose, POC 123 (H) 70 - 100 MG/DL PREPARE APHERESIS PLATELETS Collection Time: 05/11/17 4:10 AM # # Low-High Units Ordered 1 Unit Number [id number] Blood Component Type APHERESIS PLT,LEUKO REDUCED,IRRADIATED,2ND CONT. Unit Division 0 Status OF Unit ISSUED Transfusion Status OK TO TRANSFUSE LEUKEMIA/LYMPHOMA PNL, BONE MARROW Collection Time: 05/11/17 9:51 AM # # Low-High Leuk/Lymph Interpretation SEE PATHOLOGY REPORT Specimen/LLM BONE MARROW CSF TUBE VOLUMES Collection Time: 05/11/17 10:09 AM # # Low-High CSF Tube 1 5.0 mL CSF Tube 2 0.0 mL CSF Tube 3 0.0 mL CSF Tube 4 0.0 mL Radiology Review: No pertinent radiology. Cristina Sy MD * Heena Givens RN - 05/11/2017 9:38 AM CDT Sedation physician present in room. Recent vitals and patient condition reviewed between sedating physician and nurse. Reassessment completed. Determination made to proceed with planned sedation. * eLia Herr RN - 05/11/2017 5:58 AM CDT Shift: Night [id number] NEWS Score: 1918:1 (Systolic 103) 2227:0 0214:0 0416:0 Pain: No c/o pain during shift. Nutrition: Neutropenic diet. Decreased appetite. Pt had HS snack (pudding). No c /o n/v. GI/: Adequate urine output via gonzalez. LBM 05/09. Pt refused stool softeners with night meds. Activity: Up with x2 assist. Family: None present at bedside Last Shower: 05/10. New Events or Follow-up: K+ 3.8. Plts 10. Hgb 6.9. Replacing per protocol. Scheduled for bmbx, LP and IT chemo today. * Maritza Huddleston RN - 05/10/2017 5:54 PM CDT End of Shift Note NEWS score : 0800: 0 1200: 0 1600: 0 Nutrition: Neutropenic diet. Poor appetite. No complaints of N/V at this time Activity:Up with x2 assist, gait belt, walker Pain: No complaints of pain this shift. PRN's available. GI/: Adequate urine output through shift, Gonzalez in place Lasix given. Last BM 05/09 Family: No family at bedside Last shower and linen change: Follow up: C/O vertigo post ambulation, team aware. Will continue to monitor. Standing scale wt 261lb * Ari Collazo MD - 05/10/2017 4:59 PM CDT Formatting of this note may be different from the original. 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 Hypoglycemia is recurrent in spite of D5 normal saline drip. Recurrent UTI Acute leukemia A. fib CKD stage III Recommendations: - Hypoglycemia has resolved. - well- controlled DM - continue lantus 12 units daily - continue novolog 7 units with meals - continue MDCF - plan to restart glimepiride lower dose at discharge. - She does not agree with us regarding restarting metformin concerning for her CKD. Now her Cr is normal and GFR > 60. 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 We will continue to follow discussed with Dr. Eng History of Present Illness Giselle Moraes is a 56 y.o. female with past medical history of A. fib, type 2 diabetes, CKD stage III, UTI, anxiety was admitted for suspicion for acute leukemia. Endocrinology was consulted for recurrent hypoglycemia. Patient is still very fatigued and tired She states that she felt sick on her stomach yesterday. Denies nausea , vomitng , abdominal pain Estimated Creatinine Clearance: 106.1 mL/min (based on Cr of 0.77). 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 No pertinent family history. Allergies Allergies Allergen Reactions Ciprofloxacin SEE COMMENTS Per Nephrology doctors. Levofloxacin SEE COMMENTS Per nephrology doctors. Nsaids (Non-Steroidal Anti-Inflammatory Drug) SEE COMMENTS Per nephrology doctors. Bactrim [Sulfamethoxazole-Trimethoprim] SEE COMMENTS Per Nephrology Doctors. Contrast Dye Iv, Iodine Containing [Iodinated Contrast- Oral And Iv Dye] SEE COMMENTS Per nephrology doctors. Review of Systems A comprehensive 14-point review of systems was negative with exception of fatigue Medications Scheduled Meds: acyclovir (ZOVIRAX) tablet 800 mg 800 mg Oral BID atenolol (TENORMIN) tablet 25 mg 25 mg Oral QDAY cefepime (MAXIPIME) 2 g/100 ml iso-osmotic IVPB 2 g Intravenous Q8H* [START ON 05/11/2017] cytarabine PF (CYTOSAR) injection (IT) 100 mg 100 mg Intrathecal ONCE diltiazem CD (cardIZEM CD) capsule 240 mg 240 mg Oral QDAY insulin aspart (NOVOLOG FLEXPEN) injection PEN 0-14 Units 0-14 Units Subcutaneous ACHS insulin aspart (NOVOLOG FLEXPEN) injection PEN 7 Units 7 Units Subcutaneous TID w/ meals insulin glargine (LANTUS SOLOSTAR) injection PEN 12 Units 12 Units Subcutaneous QDAY(12) [START ON 05/11/2017] LORazepam (ATIVAN) tablet 0.5 mg 0.5 mg Oral ONCE micafungin (MYCAMINE) 50 mg in sodium chloride 0.9% (NS) 105 mL IVPB 50 mg Intravenous Q24H* polyethylene glycol 3350 (MIRALAX) packet 17 g 1 packet Oral QDAY senna (SENOKOT) tablet 1 tablet 1 tablet Oral BID Continuous Infusions: PRN and Respiratory Meds:acetaminophen Q6H PRN, ALPRAZolam BID PRN, alteplase PRN (Compliance Representative from Rx), hydrOXYzine TID PRN, loperamide PRN, LORazepam Q6H PRN, LORazepam injection Q6H PRN, magnesium sulfate 4 g/50 mL PRN, milk of magnesia ( CONC) Q6H PRN, potassium chloride PRN (Compliance Representative from Rx) OR potassium chloride SR PRN (Compliance Representative from Rx), saliva, synthetic PRN, sodium chloride 0.9% irrigation bottle PRN Physical Examination Vital Signs: Last Vital Signs: 24 Hour Range BP: 116/61 (05/10 1515) Temp: 36.7 C (98.1 F) (05/10 1515) Pulse: 68 (05/10 1515) Respirations: 17 PER MINUTE (05/10 1515) SpO2: 100 % (05/10 1515) O2 Delivery: None (Room Air) (05/10 1515) SpO2 Pulse: 84 (05/10 0615) BP: (109-131)/(53-79) Temp: [36.3 C (97.4 F)-37 C (98.6 F)] Pulse: [68-128] Respirations: [16 PER MINUTE-18 PER MINUTE] SpO2: [96 %-100 %] O2 Delivery: None (Room Air) General appearance: alert, oriented, looking tired HENT: Dry oral mucosa, dried blood on lips Lungs: no wheezing, rhonchi, rales appreciated Heart: Regular rhythm, reg rate, with no murmur, rub, gallop Abdomen: soft, non-tender, non-distended, normoactive bowel sounds, Ext: No clubbing, cyanosis or edema Skin: no rashes/lesions Lab Review Point of Care Testing (Last 24 hours) Glucose: (!) 142 (05/10/17 0150) POC Glucose (Download): (!) 193 (05/10/17 1239) Recent Labs 05/08/17 0435 05/09/17 0405 05/10/17 0150 NA 140 139 138 K 4.1 3.9 4.1 CL 104 103 105 CO2 32* 31* 30 GAP 4 5 3 BUN 28* 30* 31* CR 0.68 0.77 0.77 GLU 141* 140* 142* CA 8.0* 8.2* 8.1* ALBUMIN 2.4* 2.4* 2.3* MG 2.0 1.7 1.9 Recent Labs 05/08/17 0435 05/08/17 0615 05/09/17 0405 05/10/17 0150 WBC 0.3* 0.3* 0.4* 0.5* HGB 10.6* 6.9* 7.5* 6.8* HCT 29.8* 20.0* 21.3* 19.9* PLTCT 6* 7* 23* 14* AST 9 -- 8 9 ALT 7 -- 7 8 ALKPHOS 33 -- 41 55 Estimated Creatinine Clearance: 106.1 mL/min (based on Cr of 0.77). Vitals: 05/10/17 1500 Weight: 118.6 kg (261 lb 8 oz) Thyroid Studies No results found for: TSH, FREET4, FREEINDEX No results found for: FREET3, [id number], THYBINDGLB Ari Collazo MD Endocrinology Fellow [id number] [phone] Associated attestation - Karla Eng MD - 05/10/2017 8:11 PM CDT Formatting of this note may be different from the original. ATTESTATION I personally performed the carrizales portions of the E/M visit, discussed case with resident and concur with resident documentation of history, physical exam, assessment, and treatment plan unless otherwise noted. This evening, Novolog increased to 8 units SQ TID with meals. Staff name: Karla Eng MD Date: 05/10/2017 * Justin Martinez, MS - 05/10/2017 4:24 PM CDT BMT Inpatient Onco-Psychology Consult / Progress Note Date of Service: 05/10/2017 Time of Service: 1325 Location of Service: [id number] Consult/Referral Source: Follow-up on previous consult. Illness/Transplant History: Patient was diagnosed with AML. She is on day 13 of 7 +3. Presenting Concern: Mrs. Moraes indicated that she was nervous about a test that her doctor asked her to do tomorrow. She reported that she was anxious about "another thing coming up" and having to spend more time in the hospital. She reported that her social support network has been helpful. Additionally, she reported that regular prayer has been helpful. Mental Status: Patient oriented X3. Presented with good eye contact and cooperative relational pattern. Attention, speech, motor, thought processes, and thought content all within the normal range. Mood was dysthymic with affect consistent with mood and session content. No suicidal or homicidal ideation endorsed. Insight and judgment good with intact impulse control. Intervention: Cognitive Behavioral Therapy (CBT) to curb anxiety-related thinking patterns. Diagnostic Impression: F43.23 Adjustment disorder, With mixed anxiety and depressed mood Plan of Care: She indicated that she would reach out to the onco-psychology team should she need further services. Justin Martinez MAllen. Tip Finisher [phone] Associated attestation - Rach Rutledge, PhD - 05/10/2017 5:09 PM CDT I reviewed the case with the athletic training internship, and agree with the conclusions and treatment plan. Rach Rutledge, PhD Licensed Psychologist Onco-Psychology Program Pager [phone] * Veena Beck OT - 05/10/2017 4:09 PM CDT OCCUPATIONAL THERAPY PROGRESS NOTE Admitting Diagnosis: AML Leukocytosis Patient seen x1 and [place] with PT this date. Documentation reflects all daily treatment sessions. Mobility Progressive Mobility Level: Walk in room Distance Walked (feet): 15 ft Level of Assistance: Assist X2 Assistive Device: Walker Time Tolerated: 11-30 minutes Activity Limited By: Dizziness;Fatigue Subjective Pertinent Dx per Physician: 56 year old female with new diagnosis of AML. Patient admitted for start of chemotherapy. Patient is obese with bariatric bed in place. Precautions: Falls Pain / Complaints: Patient agrees to participate in therapy Comments: Pt c/o dizziness with positional changes and head movements; RN aware. Objective Psychosocial Status: Willing and Cooperative to Participate Persons Present: PT;RN Home Living Type of Home: House Home Layout: One Level;Stairs to Enter w/ Rails Bathroom Shower / Tub: Walk-in Shower Bathroom Toilet: Standard Bathroom Equipment: Built-in Seat in Shower;Shower Chair;Commode;Grab Bars in Shower Bathroom Accessibility: Accessible via Walker Home Equipment: Walker;Commode;Grab Bars;Shower/Tub Bench Prior Function Level Of [place]: Needed assistance with ADLs;Needed assistance with homemaking;Independent with ADLs and functional transfers Lives With: Spouse Receives Help From: Spouse ADL's Comment: Pt supine upon OT/PT arrival. Pt able to complete supine>sit with stand by assist. Pt sat edge of bed to let dizziness resolve x5 minutes. Pt demonstrated good sitting balance. Pt able to sit<>stand with contact guard assist x2. Pt ambulated to standing scale with walker and then returned to bed. Pt able to complete sit>supine with minimal assist for B LE. Pt supine at end of session with all needs within reach. Activity Tolerance Endurance: 3/5 Tolerates 25-30 Minutes Exercise w/Multiple Rests Sitting Balance: 3+/5 Sits w/o UE Support for 30 Seconds or Greater Cognition Overall Cognitive Status: WFL to Adequately Complete Self Care Tasks Safely Attention: Awake/Alert Education Persons Educated: Patient Teaching Methods: Verbal Instruction Patient Response: Verbalized and Demo Understanding Topics: Role of OT, Goals for Therapy Goal Formulation: With Patient Assessment Assessment: Decreased ADL Status;Decreased Endurance;Decreased Self-Care Trans; Decreased High-Level ADLs Goal Formulation: Patient AM-PAC 6 Clicks Daily Activity Inpatient Putting on and taking off regular lower body clothes?: Total Bathing (Including washing, rinsing, drying): A Lot Toileting, which includes using toilet, bedpan, or urinal: Total Putting on and taking off regular upper body clothing: A Little Taking care of personal grooming such as brushing teeth: None Eating meals?: None Daily Activity Raw Score: 15 Standardized (t-scale) score: 34.69 CMS 0-100% Score: 56.46 CMS G Code Modifier: CK Plan Treatment Interventions: ADL Retraining;Functional Transfer Training;Endurance Training;Equipment Evaluation/Education;Patient/Family Training OT Frequency: 5x/week Plan for next visit: grooming sitting edge of bed/attempt standing at sink, LE dressing Further Evaluation Goals Pt Will Tolerate Further ADL Evaluation: w/in1-2 sessions ADL Goals Patient Will Perform Grooming: w/ Stand By Assist Patient Will Perform LE Dressing: At Edge of Bed, Standing at Edge of Bed, w/ Minimum Assist Functional Transfer Goals Pt Will Perform All Functional Transfers: w/ Stand By Assist Arm Goals Pt Will Perform AROM: B UE, 2 Sets, 10 Reps, w/ Good Activity Tolerance Discharge Recommendations: Inpatient setting vs. Home with home health, home with consistent supervision Equipment Recommendations: Too early to be determined Therapist: Veena Beck, ABELR/[place] [id number] Date: 05/10/2017 * Cindy Rodriguez, COUNTER TOP ASSEMBLER - 05/10/2017 2:35 PM CDT PHYSICAL THERAPY PROGRESS NOTE MOBILITY: Mobility Progressive Mobility Level: Walk in room Distance Walked (feet): 15 ft (approximate) Level of Assistance: Assist X2 Assistive Device: Walker Time Tolerated: 11-30 minutes Activity Limited By: Dizziness;Fatigue;Weakness SUBJECTIVE: Subjective Significant hospital events: Patient is a 56 year old female with new diagnosis of AML. Patient admitted for start of chemotherapy. Patient is obese with bariatric bed in place. Mental / Cognitive Status: Alert;Cooperative Persons Present: OT;Nursing Staff Pain: Patient complains of pain;Patient does not rate pain Pain Location: Right;Hand;Wrist Pain Description: (numbness/"feels like I am wearing a ball glove.") Pain Interventions: Patient agrees to participate in therapy;Treatment altered to patient's pain tolerance;Patient declines pain meds Comments: Pt agreed to walk to the standing scale. Ambulation Assist: Independent Mobility in Community with Device Patient Owned Equipment: Roller Walker Home Situation: Lives with Family Type of Home: House Entry Stairs: 3-5 Stairs;Rail on Both Sides In-Home Stairs: Able to Live on One Level BED MOBILITY/TRANSFERS: Bed Mobility/Transfers Bed Mobility: Supine to Sit: Standby Assist;Head of Bed Elevated;Use of Rail Bed Mobility: Sit to Supine: Minimal Assist;Bed Flat;Assist with B LE Transfer Type: Sit to/from Stand Transfer: Assistance Level: To/From;Bed (contact assist) Transfer: Assistive Device: Roller Walker Transfers: Type Of Assistance: Verbal Cues;For Safety Considerations End Of Activity Status: In Bed;Instructed Patient to Request Assist with Mobility;Instructed Patient to Use Call Light Comments: Pt reported dizziness with position/head changes. GAIT: Gait Gait Distance: 15 feet (approximate) Gait: Assistance Level: Minimal Assist;of 1st person;Standby Assist;of 2nd person;Safety Considerations Gait: Assistive Device: Roller Walker Gait: Descriptors: Pace: Slow;Decreased foot clearance RLE;Decreased foot clearance LLE;Decreased step length Comments: Pt c/o SOA after walking, nurse applied supplemental oxygen. Pt also reported dizziness with moving sit > supine and when she lifted her head off the bed. Activity Limited By: SOA;Complaint of Dizziness;Complaint of Fatigue EDUCATION: Education Persons Educated: Patient Patient Barriers To Learning: Anxiety Interventions: Repetition of Instructions Teaching Methods: Verbal Instruction Patient Response: Verbalized Understanding;More Instruction Required Topics: Mobility Progression;Up with Assist Only;Importance of Increasing Activity ASSESSMENT/PROGRESS: Assessment/Progress Impaired Mobility Due To: Decreased Strength;Decreased Activity Tolerance; Medical Status Limitation Assessment/Progress: Expect Slow Progress AM-PAC 6 Clicks Basic Mobility Inpatient Turning from your back to your side while in a flat bed without using bed rails : A Little Moving from lying on your back to sitting on the side of a flatbed without using bedrails : A Little Moving to and from a bed to a chair (including a wheelchair): A Little Standing up from a chair using your arms (e.g. wheelchair, or bedside chair): A Little To walk in hospital room: A Little Climbing 3-5 steps with a railing: A Lot Raw Score: 17 Standardized (T-scale) Score: 39.67 Basic Mobility CMS 0-100%: 43.83 CMS G Code Modifier for Basic Mobility: CK GOALS: Goals Goal Formulation: With Patient Time For Goal Achievement: 7 days Pt Will Go Supine To/From Sit: w/ Minimal Assist Pt Will Transfer Bed/Chair: w/ Minimal Assist Pt Will Transfer Sit to Stand: w/ Minimal Assist Pt Will Ambulate: 11-30 Feet, w/ Walker, w/ Minimal Assist PLAN: Plan Treatment Interventions: Mobility Training;Strengthening;Balance Activities; Coordination Training;Endurance Training Plan Frequency: 5 Days per Week Comments: Continue to improve ambulation ability, work on further strength and endurance activity. RECOMMENDATIONS: PT Discharge Recommendations PT Discharge Recommendations: Inpatient Setting Equipment Recommendations: Patient owns necessary equipment Therapist: Cindy Rodriguez, Physical therapist email marketing assistant Date: 05/10/2017 * Cristina Sy MD - 05/10/2017 9:18 AM CDT Formatting of this note may be different from the original. 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 Cardiology consulted. - Monitor TLS labs and DIC labs daily - Start 7+3 04/28/2017, FLT3 ITD positive, has not gotten midostaurin yet, so will plan day 14 bone marrow - Day 13 of 7+3 - plan for LP with IT chemo tomorrow as prophy given high WBC at presentation Heme: - Pancytopenia due to chemotherapy, monitor for transfusion needs to keep Hgb>7 and platelets >10K - Previously on anticoagulation with apixaban for Atrial fibrillation, will hold for now with thrombocytopenia - Anticoagulation with lovenox for DVT ppx contraindicated due to thrombocytopenia, SCD's when on bed FEN/Renal: - Creatinine improved. - Appreciate renal recommendations - Monitor electrolytes, will be high goal replacement with h/o atrial fibrillation. Mg replacements today - Close monitoring of fluid status - Monitor I/O and daily weights to assess for need for prn lasix. Lasix today ID: Afebrile, Temperature up to 100.2 on 05/09/17 - Presents with UTI and fever - Urine cx from [facility] 04/23: + E.Coli resistant to ampicillin, Bactrim, Nitrofurantoin. Intermediate resistance to gent and Unasyn. Susceptible to ceftriaxone, zosyn, meropenem, cipro and aztreonam - Blood cx x [address] [facility] 04/23: NGTD - Cefepime continues, had vancomycin and daptomycin on 04/24-04/25, discontinued, restart vanco if febrile. Will plan to continue until neutropenia resolves - Has urinary catheter in place, did have urinary retention after trying to remove, will try again in one week after finishing antibiotics. - On prophylaxis with micafungin (due to planned midostaurin) and acyclovir - for any neutropenic fever, will check chest CT as well given risk of pneumonia with poor resp effort due to weakness/obesity GI: - No nausea, vomiting. Had multiple BM 05/03/17. Patient felt better after BM. C.diff negative - Low albumin. Liver functions normal - Obese, BMT>40 - Standing weights not possible due to patient factors Endo: - Has type II DM, on glimiperide has been discontinued on admission - Had persistent low blood sugars, now blood sugars better - Endocrinology consultation obtained and appreciate recommendations; On lantus 12 units, 7 units Novolog with meals and [facility] CVS: - H/o atrial fibrillation, rate controlled. 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 Atenolol held 05/02/17 night due to 2 sec pause. Re started on 05/05 - Mild moderate - Will hold apixaban - Cardiology opinion appreciated, 2d Echo- normal EF 60%. Derm: Facial hyperpigmentation on the right side of face. Derm to evaluate. Psych/Social: Pleasant, no issues - On alprazolam for anxiety, currently continued at low dose - Lives in [place], , currently on disability, son lives in [facility] - Need to schedule family meeting to discuss future treatment course, had first discussion with and family friend on 04/28. PT/OT: Mobility is a big issue. Subjective: Giselle Moraes is a 56 y.o. female. Pt reports diarrhea is improving, feels that her feet are swollen. One episode of weakness yesterday while standing at scale. Review of Systems: Constitutional: + fatigue, anorexia, appetite change, HEENT: Negative. No ear/ nose problems. No gum bleeding. Facial rash of long duration Respiratory: mild SOB Cardiovascular: Negative for chest pain, chest pressure, palpitations, 2+ edema in extremeties Gastrointestional: diarrhea improving. No abdominal pain/ nausea or vomiting, Gernitourinary: has Gonzalez in place Musculoskeletal: cannot walk or get up without assistance, severe neuropathy and right knee pain since surgery Skin: + bruising and petechiae Neuro: Long standing neuropathy of hands and feet Psych: + anxiety Objective: Medications: Scheduled Meds: acyclovir (ZOVIRAX) tablet 800 mg 800 mg Oral BID atenolol (TENORMIN) tablet 25 mg 25 mg Oral QDAY cefepime (MAXIPIME) 2 g/100 ml iso-osmotic IVPB 2 g Intravenous Q8H* diltiazem CD (cardIZEM CD) capsule 240 mg 240 mg Oral QDAY insulin aspart (NOVOLOG FLEXPEN) injection PEN 0-14 Units 0-14 Units Subcutaneous ACHS insulin aspart (NOVOLOG FLEXPEN) injection PEN 7 Units 7 Units Subcutaneous TID w/ meals insulin glargine (LANTUS SOLOSTAR) injection PEN 12 Units 12 Units Subcutaneous QDAY(12) micafungin (MYCAMINE) 50 mg in sodium chloride 0.9% (NS) 105 mL IVPB 50 mg Intravenous Q24H* polyethylene glycol 3350 (MIRALAX) packet 17 g 1 packet Oral QDAY senna (SENOKOT) tablet 1 tablet 1 tablet Oral BID Continuous Infusions: PRN and Respiratory Meds:acetaminophen Q6H PRN, ALPRAZolam BID PRN, alteplase PRN (Compliance Representative from Rx), hydrOXYzine TID PRN, loperamide PRN, LORazepam Q6H PRN, LORazepam injection Q6H PRN, magnesium sulfate 4 g/50 mL PRN, milk of magnesia ( CONC) Q6H PRN, potassium chloride PRN (Compliance Representative from Rx) OR potassium chloride SR PRN (Compliance Representative from Rx), saliva, synthetic PRN, sodium chloride 0.9% irrigation bottle PRN Vital Signs: Last Filed Vital Signs: 24 Hour Range BP: 131/63 (05/10 822) Temp: 36.9 C (98.5 F) (05/10 822) Pulse: 84 (05/10 822) Respirations: 18 PER MINUTE (05/10 822) SpO2: 98 % (05/10 822) O2 Delivery: None (Room Air) (05/10 822) SpO2 Pulse: 84 (05/10 615) BP: (109-131)/(53-76) Temp: [36.3 C (97.4 F)-37.4 C (99.3 F)] Pulse: [67-128] Respirations: [16 PER MINUTE-18 PER MINUTE] SpO2: [96 %-100 %] O2 Delivery: None (Room Air) Intensity Pain Scale 0-10 (Pain 1): (not recorded) Vitals: 05/08/17 1201 Weight: (!) 137.9 kg (304 lb) Intake/Output Summary: (Last 24 hours) Intake/Output Summary (Last 24 hours) at 05/10/17 0918 Last data filed at 05/10/17 0720 Gross per 24 hour Intake 455 ml Output 1775 ml Net -1320 ml Physical Exam: Performance Status (Karnofsky): 40% Disabled, requires special care and assistance VS reviewed, pt afebrile General: Alert, cooperative, no distress, appears stated age/ Morbidly obese Head: Normocephalic, without obvious abnormality, atraumatic Eyes: Conjunctivae/corneas clear. Anicteric sclera OP: Without erythema or ulcers Lungs: decreased bs throughout Heart: Irregular rhythm Abdomen: Soft, non-tender. Bowel sounds normal. No masses. No organomegaly. Extremities: + 1+ edema to feet Skin: Facial hyperpigmentation on right cheek, long standing per patient. + buising and petechiae Neurologic: Generalized weakness, limited mobility Lab Review: Results for orders placed or performed during the hospital encounter of (from the past 48 hour(s)) POC GLUCOSE Collection Time: 05/08/17 3:27 PM # # Low-High Glucose, POC 132 (H) 70 - 100 MG/DL POC GLUCOSE Collection Time: 05/08/17 5:15 PM # # Low-High Glucose, POC 120 (H) 70 - 100 MG/DL POC GLUCOSE Collection Time: 05/08/17 9:00 PM # # Low-High Glucose, POC 192 (H) 70 - 100 MG/DL COMPREHENSIVE METABOLIC PANEL Collection Time: 05/09/17 4:05 AM # # Low-High Sodium 139 137 - 147 MMOL/L Potassium 3.9 3.5 - 5.1 MMOL/L Chloride 103 98 - 110 MMOL/L Glucose 140 (H) 70 - 100 MG/DL Blood Urea Nitrogen 30 (H) 7 - 25 MG/DL Creatinine 0.77 0.4 - 1.00 MG/DL Calcium 8.2 (L) 8.5 - 10.6 MG/DL Total Protein 5.3 (L) 6.0 - 8.0 G/DL Total Bilirubin 1.7 (H) 0.3 - 1.2 MG/DL Albumin 2.4 (L) 3.5 - 5.0 G/DL Alk Phosphatase 41 25 - 110 U/L AST (SGOT) 8 7 - 40 U/L CO2 31 (H) 21 - 30 MMOL/L ALT (SGPT) 7 7 - 56 U/L Anion Gap 5 3 - 12 eGFR Non >60 >60 mL/min eGFR >60 >60 mL/min MAGNESIUM Collection Time: 05/09/17 4:05 AM # # Low-High Magnesium 1.7 1.6 - 2.6 mg/dL CBC AND DIFF Collection Time: 05/09/17 4:05 AM # # Low-High White Blood Cells 0.4 (LL) 4.5 - 11.0 K/UL RBC 2.52 (L) 4.0 - 5.0 M/UL Hemoglobin 7.5 (L) 12.0 - 15.0 GM/DL Hematocrit 21.3 (L) 36 - 45 % MCV 84.4 80 - 100 FL MCH 29.7 26 - 34 PG MCHC 35.2 32.0 - 36.0 G/DL RDW 16.9 (H) 11 - 15 % Platelet Count 23 (LL) 150 - 400 K/UL MPV 6.9 (L) 7 - 11 FL POC GLUCOSE Collection Time: 05/09/17 11:01 AM # # Low-High Glucose, POC 145 (H) 70 - 100 MG/DL POC GLUCOSE Collection Time: 05/09/17 1:40 PM # # Low-High Glucose, POC 184 (H) 70 - 100 MG/DL POC GLUCOSE Collection Time: 05/09/17 5:26 PM # # Low-High Glucose, POC 106 (H) 70 - 100 MG/DL POC GLUCOSE Collection Time: 05/09/17 10:05 PM # # Low-High Glucose, POC 142 (H) 70 - 100 MG/DL COMPREHENSIVE METABOLIC PANEL Collection Time: 05/10/17 1:50 AM # # Low-High Sodium 138 137 - 147 MMOL/L Potassium 4.1 3.5 - 5.1 MMOL/L Chloride 105 98 - 110 MMOL/L Glucose 142 (H) 70 - 100 MG/DL Blood Urea Nitrogen 31 (H) 7 - 25 MG/DL Creatinine 0.77 0.4 - 1.00 MG/DL Calcium 8.1 (L) 8.5 - 10.6 MG/DL Total Protein 5.1 (L) 6.0 - 8.0 G/DL Total Bilirubin 1.2 0.3 - 1.2 MG/DL Albumin 2.3 (L) 3.5 - 5.0 G/DL Alk Phosphatase 55 25 - 110 U/L AST (SGOT) 9 7 - 40 U/L CO2 30 21 - 30 MMOL/L ALT (SGPT) 8 7 - 56 U/L Anion Gap 3 3 - 12 eGFR Non >60 >60 mL/min eGFR >60 >60 mL/min MAGNESIUM Collection Time: 05/10/17 1:50 AM # # Low-High Magnesium 1.9 1.6 - 2.6 mg/dL CBC AND DIFF Collection Time: 05/10/17 1:50 AM # # Low-High White Blood Cells 0.5 (LL) 4.5 - 11.0 K/UL RBC 2.35 (L) 4.0 - 5.0 M/UL Hemoglobin 6.8 (L) 12.0 - 15.0 GM/DL Hematocrit 19.9 (L) 36 - 45 % MCV 84.7 80 - 100 FL MCH 29.0 26 - 34 PG MCHC 34.3 32.0 - 36.0 G/DL RDW 17.0 (H) 11 - 15 % Platelet Count 14 (LL) 150 - 400 K/UL MPV 7.9 7 - 11 FL Neutrophils 2 (L) 41 - 77 % Lymphocytes 97 (H) 24 - 44 % Monocytes 1 (L) 4 - 12 % Eosinophils 0 0 - 5 % Basophils 0 0 - 2 % Absolute Neutrophil Count 0.00 (L) 1.8 - 7.0 K/UL Absolute Lymph Count 0.50 (L) 1.0 - 4.8 K/UL Absolute Monocyte Count 0.00 0 - 0.80 K/UL Absolute Eosinophil Count 0.00 0 - 0.45 K/UL Absolute Basophil Count 0.00 0 - 0.20 K/UL POC GLUCOSE Collection Time: 05/10/17 3:36 AM # # Low-High Glucose, POC 127 (H) 70 - 100 MG/DL Radiology Review: No pertinent radiology. Cristina Sy MD * Olga Lidia Peña RN - 05/09/2017 8:07 PM CDT .Shift: Night NEWS Score:0,1,1 Pain:Denies Nutrition: poor appetite GI/:gonzalez to dd, last BM 05/09 Activity: Up with 2-3 person assist and walker Family: no visitors at bedside this shift Last Shower:Bed bath 05/09 New Events or Follow-up:patient receiving one unit PRBCs this am,sliding scale insulin ordered ac/hs, but finger stick blood sugars are order 5 times daily please clarify * Alisha Gregorio MD - 05/09/2017 6:30 AM CDT Formatting of this note may be different from the original. 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 Cardiology consulted. - Monitor TLS labs and DIC labs daily - Start 7+3 04/28/2017, FLT3 ITD positive, will submit to add midostaurin - D12 of 7+3 Heme: - Anemia and thrombocytopenia due to underlying AML. No transfusion today - Previously on anticoagulation with apixaban for Atrial fibrillation, will hold for now with thrombocytopenia - Anticoagulation with lovenox for DVT ppx contraindicated due to thrombocytopenia, SCD's when on bed FEN/Renal: - Creatinine improved. - Appreciate renal recommendations - Monitor electrolytes, will be high goal replacement with h/o atrial fibrillation. K and Mag today 05/09/17 - Close monitoring of fluid status - Will need Lasix PRN, ID: Temperature up to 100.2 on 05/09/17 - Presents with UTI and fever - Urine cx from [facility] 04/23: + E.Coli resistant to ampicillin, Bactrim, Nitrofurantoin. Intermediate resistance to gent and Unasyn. Susceptible to ceftriaxone, zosyn, meropenem, cipro and aztreonam - Blood cx x 2 from [facility] 04/23: NGTD - Cefepime continues, had vancomycin and daptomycin on 04/24-04/25, discontinued, restart vanco if febrile. Will plan to continue until neutropenia resolves - Has urinary catheter in place, did have urinary retention after trying to remove, will try again in one week after finishing antibiotics. Lots of sediment in urine and chronic UTI. - On prophylaxis with micafungin and acyclovir C.diff negative GI: - No nausea, vomiting. Had multiple BM 05/03/17. Patient felt better after BM. C.diff negative - Low albumin. Liver functions normal - Obese, BMT>40 - Standing weights not possible due to patient factors Endo: - Has type II DM, on glimiperide has been discontinued on admission - Had persistent low blood sugars, now blood sugars better - Endocrinology consultation obtained and appreciate recommendations; On lantus 12 units, 7 units Novolog with meals and [facility] CVS: - H/o atrial fibrillation, rate controlled. 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 Atenolol held 05/02/17 night due to 2 sec pause. Re started on 05/05 - Mild moderate - Will hold apixaban - Cardiology opinion appreciated, 2d Echo- normal EF 60%. Derm: C/O itching. No rash. Tried Atarax. C/O sleepiness from Benadryl and Atarax. Has facial rash. Looks like Rosacea. Will call Dermatology on Wednesday Psych/Social: Pleasant, no issues - On alprazolam for anxiety, currently continued at low dose - Lives in [facility], , currently on disability, son lives in [facility] - Need to schedule family meeting to discuss future treatment course, had first discussion with and family friend on 04/28. PT/OT: Mobility is a big issue. Subjective: Giselle Moraes is a 56 y.o. female. Itching+, Diarrhea+, No appetite, Has facial rash for long time Review of Systems: Constitutional: + fatigue, anorexia, appetite change, HEENT: Negative. No ear/ nose problems. No gum bleeding. Facial rash of long duration Respiratory: mild SOB Cardiovascular: Negative for chest pain, chest pressure, palpitations, 2+ edema in extremeties Gastrointestional: diarrhea intermittent. No abdominal pain/ nausea or vomiting, Gernitourinary: +dysuria, no hematuria, has Gonzalez in place Musculoskeletal: cannot walk or get up without assistance, severe neuropathy and right knee pain since surgery Skin: Itching Psych: + anxiety Objective: Medications: Scheduled Meds: acyclovir (ZOVIRAX) tablet 800 mg 800 mg Oral BID atenolol (TENORMIN) tablet 25 mg 25 mg Oral QDAY cefepime (MAXIPIME) 2 g/100 ml iso-osmotic IVPB 2 g Intravenous Q8H* diltiazem CD (cardIZEM CD) capsule 240 mg 240 mg Oral QDAY insulin aspart (NOVOLOG FLEXPEN) injection PEN 0-14 Units 0-14 Units Subcutaneous ACHS insulin aspart (NOVOLOG FLEXPEN) injection PEN 7 Units 7 Units Subcutaneous TID w/ meals insulin glargine (LANTUS SOLOSTAR) injection PEN 12 Units 12 Units Subcutaneous QDAY(12) micafungin (MYCAMINE) 50 mg in sodium chloride 0.9% (NS) 105 mL IVPB 50 mg Intravenous Q24H* polyethylene glycol 3350 (MIRALAX) packet 17 g 1 packet Oral QDAY senna (SENOKOT) tablet 1 tablet 1 tablet Oral BID Continuous Infusions: PRN and Respiratory Meds:acetaminophen Q6H PRN, ALPRAZolam BID PRN, alteplase PRN (Compliance Representative from Rx), hydrOXYzine TID PRN, loperamide PRN, LORazepam Q6H PRN, LORazepam injection Q6H PRN, magnesium sulfate 4 g/50 mL PRN, milk of magnesia ( CONC) Q6H PRN, potassium chloride PRN (Compliance Representative from Rx) OR potassium chloride SR PRN (Compliance Representative from Rx), saliva, synthetic PRN, sodium chloride 0.9% irrigation bottle PRN Vital Signs: Last Filed Vital Signs: 24 Hour Range BP: 124/54 (05/09 406) Temp: 37.1 C (98.7 F) (05/09 406) Pulse: 94 (05/09 406) Respirations: 17 PER MINUTE (05/09 406) SpO2: 99 % (05/09 406) O2 Delivery: None (Room Air) (05/09 406) SpO2 Pulse: 80 (05/08 1217) BP: (85-133)/(42-96) Temp: [36.4 C (97.5 F)-37.9 C (100.2 F)] Pulse: [80-101] Respirations: [17 PER MINUTE-20 PER MINUTE] SpO2: [97 %-100 %] O2 Delivery: None (Room Air) Intensity Pain Scale 0-10 (Pain 1): (not recorded) Vitals: 05/04/17 1143 05/06/17 1022 Weight: (!) 144.2 kg (318 lb) (!) 143.8 kg (317 lb 1.9 oz) Intake/Output Summary: (Last 24 hours) Intake/Output Summary (Last 24 hours) at 05/09/17 0630 Last data filed at 05/09/17 0407 Gross per 24 hour Intake 226.67 ml Output 4125 ml Net -3898.33 ml Physical Exam: Performance Status (Karnofsky): 40% Disabled, requires special care and assistance General: awake & oriented, no acute distress, appears stated age, Morbidly obese HENT: normocephalic, atraumatic, non-icteric, clear conjunctivae, no adenopathy. Facial rash is acneiform and may be rosacea Eyes: Conjunctuvae clear. PERRL, EOMs intact. CV: AFIB, no murmur, click, rub Lungs: clear to ausculation bilaterally, Decreased BS at bases Abdomen: Obese abdomen, soft, non-tender, non-distended, normo-active bowel sounds. Has indwelling catheter Extremities: 2+ edema, Skin: Warm & dry. Skin color, turgor normal. Petechiae Neuro: Non focal Psych: Normal mood and affect. Judgment and thought content normal. Lab Review: Results for orders placed or performed during the hospital encounter of (from the past 48 hour(s)) POC GLUCOSE Collection Time: 05/07/17 9:04 AM # # Low-High Glucose, POC 120 (H) 70 - 100 MG/DL POC GLUCOSE Collection Time: 05/07/17 12:47 PM # # Low-High Glucose, POC 184 (H) 70 - 100 MG/DL POC GLUCOSE Collection Time: 05/07/17 4:49 PM # # Low-High Glucose, POC 129 (H) 70 - 100 MG/DL POC GLUCOSE Collection Time: 05/07/17 8:56 PM # # Low-High Glucose, POC 167 (H) 70 - 100 MG/DL COMPREHENSIVE METABOLIC PANEL Collection Time: 05/08/17 4:35 AM # # Low-High Sodium 140 137 - 147 MMOL/L Potassium 4.1 3.5 - 5.1 MMOL/L Chloride 104 98 - 110 MMOL/L Glucose 141 (H) 70 - 100 MG/DL Blood Urea Nitrogen 28 (H) 7 - 25 MG/DL Creatinine 0.68 0.4 - 1.00 MG/DL Calcium 8.0 (L) 8.5 - 10.6 MG/DL Total Protein 5.2 (L) 6.0 - 8.0 G/DL Total Bilirubin 1.4 (H) 0.3 - 1.2 MG/DL Albumin 2.4 (L) 3.5 - 5.0 G/DL Alk Phosphatase 33 25 - 110 U/L AST (SGOT) 9 7 - 40 U/L CO2 32 (H) 21 - 30 MMOL/L ALT (SGPT) 7 7 - 56 U/L Anion Gap 4 3 - 12 eGFR Non >60 >60 mL/min eGFR >60 >60 mL/min MAGNESIUM Collection Time: 05/08/17 4:35 AM # # Low-High Magnesium 2.0 1.6 - 2.6 mg/dL CBC AND DIFF Collection Time: 05/08/17 4:35 AM # # Low-High White Blood Cells 0.3 (LL) 4.5 - 11.0 K/UL RBC 3.50 (L) 4.0 - 5.0 M/UL Hemoglobin 10.6 (L) 12.0 - 15.0 GM/DL Hematocrit 29.8 (L) 36 - 45 % MCV 85.2 80 - 100 FL MCH 30.4 26 - 34 PG MCHC 35.7 32.0 - 36.0 G/DL RDW 18.0 (H) 11 - 15 % Platelet Count 6 (LL) 150 - 400 K/UL MPV 9.2 7 - 11 FL TYPE & CROSSMATCH Collection Time: 05/08/17 4:35 AM # # Low-High Units Ordered 1 Crossmatch Expires 05/11/2017 Record Check FOUND ABO/RH(D) A POS Antibody Screen NEG Unit Number [id number] Blood Component Type RBC,ADSOL,LEUKO REDUCED,IRRADIATED Unit Division 0 Status OF Unit TRANSFUSED Transfusion Status OK TO TRANSFUSE Crossmatch Result COMPATIBLE,ELECTRONIC PREPARE APHERESIS PLATELETS Collection Time: 05/08/17 5:36 AM # # Low-High Units Ordered 1 Unit Number [id number] Blood Component Type APHERESIS PLT,LEUKO REDUCED,IRRADIATED,2ND CONT. Unit Division 0 Status OF Unit TRANSFUSED Transfusion Status OK TO TRANSFUSE CBC Collection Time: 05/08/17 6:15 AM # # Low-High White Blood Cells 0.3 (LL) 4.5 - 11.0 K/UL RBC 2.32 (L) 4.0 - 5.0 M/UL Hemoglobin 6.9 (L) 12.0 - 15.0 GM/DL Hematocrit 20.0 (L) 36 - 45 % MCV 86.4 80 - 100 FL MCH 29.8 26 - 34 PG MCHC 34.5 32.0 - 36.0 G/DL RDW 17.9 (H) 11 - 15 % Platelet Count 7 (LL) 150 - 400 K/UL MPV 8.3 7 - 11 FL POC GLUCOSE Collection Time: 05/08/17 7:45 AM # # Low-High Glucose, POC 155 (H) 70 - 100 MG/DL POC GLUCOSE Collection Time: 05/08/17 3:27 PM # # Low-High Glucose, POC 132 (H) 70 - 100 MG/DL POC GLUCOSE Collection Time: 05/08/17 5:15 PM # # Low-High Glucose, POC 120 (H) 70 - 100 MG/DL POC GLUCOSE Collection Time: 05/08/17 9:00 PM # # Low-High Glucose, POC 192 (H) 70 - 100 MG/DL COMPREHENSIVE METABOLIC PANEL Collection Time: 05/09/17 4:05 AM # # Low-High Sodium 139 137 - 147 MMOL/L Potassium 3.9 3.5 - 5.1 MMOL/L Chloride 103 98 - 110 MMOL/L Glucose 140 (H) 70 - 100 MG/DL Blood Urea Nitrogen 30 (H) 7 - 25 MG/DL Creatinine 0.77 0.4 - 1.00 MG/DL Calcium 8.2 (L) 8.5 - 10.6 MG/DL Total Protein 5.3 (L) 6.0 - 8.0 G/DL Total Bilirubin 1.7 (H) 0.3 - 1.2 MG/DL Albumin 2.4 (L) 3.5 - 5.0 G/DL Alk Phosphatase 41 25 - 110 U/L AST (SGOT) 8 7 - 40 U/L CO2 31 (H) 21 - 30 MMOL/L ALT (SGPT) 7 7 - 56 U/L Anion Gap 5 3 - 12 eGFR Non >60 >60 mL/min eGFR >60 >60 mL/min MAGNESIUM Collection Time: 05/09/17 4:05 AM # # Low-High Magnesium 1.7 1.6 - 2.6 mg/dL CBC AND DIFF Collection Time: 05/09/17 4:05 AM # # Low-High White Blood Cells 0.4 (LL) 4.5 - 11.0 K/UL RBC 2.52 (L) 4.0 - 5.0 M/UL Hemoglobin 7.5 (L) 12.0 - 15.0 GM/DL Hematocrit 21.3 (L) 36 - 45 % MCV 84.4 80 - 100 FL MCH 29.7 26 - 34 PG MCHC 35.2 32.0 - 36.0 G/DL RDW 16.9 (H) 11 - 15 % Platelet Count 23 (LL) 150 - 400 K/UL MPV 6.9 (L) 7 - 11 FL Radiology Review: No pertinent radiology. Alisha Gregorio MD * Olga Lidia Peña RN - 05/08/2017 7:26 PM CDT .Shift: Night NEWS Score:1,0,1 Pain:Denies pain at this time Nutrition: fair appetite GI/:gonzalez to dd, incontinent of loose stool on day shift Activity: up with two to three person assist Family: supportive Last Shower:05/08 New Events or Follow-up:replacing potassium and magnesium this am * Brigida Carvajal MD - 05/08/2017 12:45 PM CDT Formatting of this note may be different from the original. Patient chart reviewed, overnight events noted and discussed in rounds. Recent Labs 05/06/17 1205 05/06/17 1811 05/06/17 2104 05/07/17 0904 05/07/17 1247 05/07/17 1649 05/07/17 2056 05/08/17 0745 GLUPOC 187* 167* 187* 120* 184* 129* 167* 155* Recent Labs 05/06/17 0445 05/06/17 2035 05/07/17 0410 05/08/17 0435 NA 140 137 140 140 K 4.7 3.9 4.4 4.1 CL 107 102 105 104 CO2 31* 31* 32* 32* BUN 24 27* 26* 28* CR 0.67 0.81 0.70 0.68 GFR >60 >60 >60 >60 GLU 133* 202* 99 141* CA 8.0* 7.7* 8.1* 8.0* ALBUMIN 2.3* -- 2.4* 2.4* ALKPHOS 25 -- 27 33 AST 7 -- 9 9 ALT 6* -- 6* 7 TOTBILI 1.0 -- 1.2 1.4* Estimated Creatinine Clearance: 130.7 mL/min (based on Cr of 0.68). 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 Hypoglycemia is recurrent in spite of D5 normal saline drip. Recurrent UTI Acute leukemia A. fib CKD stage III Recommendations: - Hypoglycemia has resolved. - well- controlled DM--range 120-187 today which is at goal. - continue lantus 12 units daily - continue novolog 7 units with meals - continue [facility] - plan to restart glimepiride lower dose or metformin at discharge. We will continue to follow Patient was seen and discussed with Dr. Darien Carvajal MD Internal Medicine PGY-3 [phone] 05/08/2017 * Olga Lidia Peña RN - 05/08/2017 6:53 AM CDT Agree with nursing clinical director Oz Crawford assessment and notes * Alisha Gregorio MD - 05/08/2017 6:41 AM CDT Formatting of this note may be different from the original. 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 Cardiology consulted. - Monitor TLS labs and DIC labs daily - Start 7+3 04/28/2017, FLT3 ITD positive, will submit to add midostaurin - D11 of 73 Heme: - Anemia and thrombocytopenia due to underlying AML. Hb is pending and Platelet transfusion today 05/08/17 - Previously on anticoagulation with apixaban for Atrial fibrillation, will hold for now with thrombocytopenia - Anticoagulation with lovenox for DVT ppx contraindicated due to thrombocytopenia, SCD's when on bed FEN/Renal: - Creatinine improved. - Appreciate renal recommendations - Monitor electrolytes, will be high goal replacement with h/o atrial fibrillation. - Close monitoring of fluid status - Will need Lasix daily until weight improves, ID: - Presents with UTI and fever - Urine cx from [facility] 04/23: + E.Coli resistant to ampicillin, Bactrim, Nitrofurantoin. Intermediate resistance to gent and Unasyn. Susceptible to ceftriaxone, zosyn, meropenem, cipro and aztreonam - Blood cx x 2 from [facility] 04/23: NGTD - Cefepime continues, had vancomycin and daptomycin on 04/24-04/25, discontinued, restart vanco if febrile. Needs to complete at least a 14 day course of cefepime for complicated UTI. Will plan to continue until neutropenia resolves - Has urinary catheter in place, did have urinary retention after trying to remove, will try again in one week after finishing antibiotics. Lots of sediment in urine and chronic UTI. - On prophylaxis with micafungin and acyclovir C.diff negative GI: - No nausea, vomiting. Had multiple BM 05/03/17. Patient felt better after BM. C.diff negative - Low albumin. Liver functions normal - Obese, BMT>40 - Standing weights not possible due to patient factors Endo: - Has type II DM, on glimiperide has been discontinued on admission - Had persistent low blood sugars, now blood sugars better - Endocrinology consultation obtained and appreciate recommendations; On lantus 12 units, 7 units Novolog with meals and [facility] CVS: - H/o atrial fibrillation, rate controlled. 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 Atenolol held 05/02/17 night due to 2 sec pause. Re started on 05/05 - Mild moderate - Will hold apixaban - Cardiology opinion appreciated, 2d Echo- normal EF 60%. Psych/Social: Pleasant, no issues - On alprazolam for anxiety, currently continued at low dose - Lives in [place], , currently on disability, son lives in [facility] - Need to schedule family meeting to discuss future treatment course, had first discussion with and family friend on 04/28. PT/OT: Mobility is a big issue. Subjective: Giselle Moraes is a 56 y.o. female. Some nausea. Not moving much. Feet swollen. Diarrhea and taking Imodium. No bleeding. Has Gonzalez in Review of Systems: Constitutional: + fatigue, anorexia, appetite change, HEENT: Negative. No ear/ nose problems. No gum bleeding Respiratory: mild SOB Cardiovascular: Negative for chest pain, chest pressure, palpitations, 2+ edema in extremeties Gastrointestional: diarrhea intermittent. No abdominal pain/ nausea or vomiting , felt bloated but better after BM Gernitourinary: +dysuria, no hematuria, has Gonzalez in place Musculoskeletal: cannot walk or get up without assistance, severe neuropathy and right knee pain since surgery Skin: Negative Psych: + anxiety Objective: Medications: Scheduled Meds: acyclovir (ZOVIRAX) tablet 800 mg 800 mg Oral BID atenolol (TENORMIN) tablet 25 mg 25 mg Oral QDAY cefepime (MAXIPIME) 2 g/100 ml iso-osmotic IVPB 2 g Intravenous Q12H* diltiazem CD (cardIZEM CD) capsule 240 mg 240 mg Oral QDAY insulin aspart (NOVOLOG FLEXPEN) injection PEN 0-14 Units 0-14 Units Subcutaneous ACHS insulin aspart (NOVOLOG FLEXPEN) injection PEN 7 Units 7 Units Subcutaneous TID w/ meals insulin glargine (LANTUS SOLOSTAR) injection PEN 12 Units 12 Units Subcutaneous QDAY(12) micafungin (MYCAMINE) 50 mg in sodium chloride 0.9% (NS) 105 mL IVPB 50 mg Intravenous Q24H* polyethylene glycol 3350 (MIRALAX) packet 17 g 1 packet Oral QDAY senna (SENOKOT) tablet 1 tablet 1 tablet Oral BID Continuous Infusions: PRN and Respiratory Meds:acetaminophen Q6H PRN, ALPRAZolam BID PRN, alteplase PRN (Compliance Representative from Rx), loperamide PRN, LORazepam Q6H PRN, LORazepam injection Q6H PRN, magnesium sulfate 4 g/50 mL PRN, milk of magnesia (CONC) Q6H PRN, potassium chloride PRN (Compliance Representative from Rx) OR potassium chloride SR PRN (Compliance Representative from Rx), saliva, synthetic PRN, sodium chloride 0.9% irrigation bottle PRN Vital Signs: Last Filed Vital Signs: 24 Hour Range BP: 144/57 (05/08 605) Temp: 36.3 C (97.4 F) (05/08 605) Pulse: 94 (05/08 605) Respirations: 20 PER MINUTE (05/08 605) SpO2: 100 % (05/08 605) O2 Delivery: Nasal Cannula (05/08 605) BP: (104-144)/(50-82) Temp: [36.3 C (97.3 F)-37.1 C (98.7 F)] Pulse: [66-98] Respirations: [16 PER MINUTE-20 PER MINUTE] SpO2: [99 %-100 %] O2 Delivery: Nasal Cannula Intensity Pain Scale 0-10 (Pain 1): (not recorded) Vitals: 05/03/17 1744 05/04/17 1143 05/06/17 1022 Weight: (!) 148.8 kg (328 lb 1.9 oz) (!) 144.2 kg (318 lb) (!) 143.8 kg (317 lb 1.9 oz) Intake/Output Summary: (Last 24 hours) Intake/Output Summary (Last 24 hours) at 05/08/17 0641 Last data filed at 05/08/17 06 Gross per 24 hour Intake 1956 ml Output 5100 ml Net -3144 ml Physical Exam: Performance Status (Karnofsky): 40% Disabled, requires special care and assistance General: awake & oriented, no acute distress, appears stated age, Morbidly obese HENT: normocephalic, atraumatic, non-icteric, clear conjunctivae, no adenopathy. Eyes: Conjunctuvae clear. PERRL, EOMs intact. CV: AFIB, no murmur, click, rub Lungs: clear to ausculation bilaterally, Decreased BS at bases Abdomen: Obese abdomen, soft, non-tender, non-distended, normo-active bowel sounds. Has indwelling catheter Extremities: 2+ edema, Skin: Warm & dry. Skin color, turgor normal. No rahses or lesions Neuro: Non focal Psych: Normal mood and affect. Judgment and thought content normal. Lab Review: Results for orders placed or performed during the hospital encounter of (from the past 48 hour(s)) POC GLUCOSE Collection Time: 05/06/17 7:55 AM # # Low-High Glucose, POC 144 (H) 70 - 100 MG/DL POC GLUCOSE Collection Time: 05/06/17 12:05 PM # # Low-High Glucose, POC 187 (H) 70 - 100 MG/DL POC GLUCOSE Collection Time: 05/06/17 6:11 PM # # Low-High Glucose, POC 167 (H) 70 - 100 MG/DL BASIC METABOLIC PANEL Collection Time: 05/06/17 8:35 PM # # Low-High Sodium 137 137 - 147 MMOL/L Potassium 3.9 3.5 - 5.1 MMOL/L Chloride 102 98 - 110 MMOL/L CO2 31 (H) 21 - 30 MMOL/L Anion Gap 4 3 - 12 Glucose 202 (H) 70 - 100 MG/DL Blood Urea Nitrogen 27 (H) 7 - 25 MG/DL Creatinine 0.81 0.4 - 1.00 MG/DL Calcium 7.7 (L) 8.5 - 10.6 MG/DL eGFR Non >60 >60 mL/min eGFR >60 >60 mL/min POC GLUCOSE Collection Time: 05/06/17 9:04 PM # # Low-High Glucose, POC 187 (H) 70 - 100 MG/DL COMPREHENSIVE METABOLIC PANEL Collection Time: 05/07/17 4:10 AM # # Low-High Sodium 140 137 - 147 MMOL/L Potassium 4.4 3.5 - 5.1 MMOL/L Chloride 105 98 - 110 MMOL/L Glucose 99 70 - 100 MG/DL Blood Urea Nitrogen 26 (H) 7 - 25 MG/DL Creatinine 0.70 0.4 - 1.00 MG/DL Calcium 8.1 (L) 8.5 - 10.6 MG/DL Total Protein 5.1 (L) 6.0 - 8.0 G/DL Total Bilirubin 1.2 0.3 - 1.2 MG/DL Albumin 2.4 (L) 3.5 - 5.0 G/DL Alk Phosphatase 27 25 - 110 U/L AST (SGOT) 9 7 - 40 U/L CO2 32 (H) 21 - 30 MMOL/L ALT (SGPT) 6 (L) 7 - 56 U/L Anion Gap 3 3 - 12 eGFR Non >60 >60 mL/min eGFR >60 >60 mL/min MAGNESIUM Collection Time: 05/07/17 4:10 AM # # Low-High Magnesium 2.0 1.6 - 2.6 mg/dL CBC AND DIFF Collection Time: 05/07/17 4:10 AM # # Low-High White Blood Cells 0.5 (LL) 4.5 - 11.0 K/UL RBC 2.35 (L) 4.0 - 5.0 M/UL Hemoglobin 7.1 (L) 12.0 - 15.0 GM/DL Hematocrit 20.4 (L) 36 - 45 % MCV 87.0 80 - 100 FL MCH 30.2 26 - 34 PG MCHC 34.8 32.0 - 36.0 G/DL RDW 18.2 (H) 11 - 15 % Platelet Count 11 (LL) 150 - 400 K/UL MPV 8.6 7 - 11 FL Neutrophils 4 (L) 41 - 77 % Lymphocytes 94 (H) 24 - 44 % Monocytes 2 (L) 4 - 12 % Eosinophils 0 0 - 5 % Basophils 0 0 - 2 % Absolute Neutrophil Count 0.00 (L) 1.8 - 7.0 K/UL Absolute Lymph Count 0.50 (L) 1.0 - 4.8 K/UL Absolute Monocyte Count 0.00 0 - 0.80 K/UL Absolute Eosinophil Count 0.00 0 - 0.45 K/UL Absolute Basophil Count 0.00 0 - 0.20 K/UL POC GLUCOSE Collection Time: 05/07/17 9:04 AM # # Low-High Glucose, POC 120 (H) 70 - 100 MG/DL POC GLUCOSE Collection Time: 05/07/17 12:47 PM # # Low-High Glucose, POC 184 (H) 70 - 100 MG/DL POC GLUCOSE Collection Time: 05/07/17 4:49 PM # # Low-High Glucose, POC 129 (H) 70 - 100 MG/DL POC GLUCOSE Collection Time: 05/07/17 8:56 PM # # Low-High Glucose, POC 167 (H) 70 - 100 MG/DL COMPREHENSIVE METABOLIC PANEL Collection Time: 05/08/17 4:35 AM # # Low-High Sodium 140 137 - 147 MMOL/L Potassium 4.1 3.5 - 5.1 MMOL/L Chloride 104 98 - 110 MMOL/L Glucose 141 (H) 70 - 100 MG/DL Blood Urea Nitrogen 28 (H) 7 - 25 MG/DL Creatinine 0.68 0.4 - 1.00 MG/DL Calcium 8.0 (L) 8.5 - 10.6 MG/DL Total Protein 5.2 (L) 6.0 - 8.0 G/DL Total Bilirubin 1.4 (H) 0.3 - 1.2 MG/DL Albumin 2.4 (L) 3.5 - 5.0 G/DL Alk Phosphatase 33 25 - 110 U/L AST (SGOT) 9 7 - 40 U/L CO2 32 (H) 21 - 30 MMOL/L ALT (SGPT) 7 7 - 56 U/L Anion Gap 4 3 - 12 eGFR Non >60 >60 mL/min eGFR >60 >60 mL/min MAGNESIUM Collection Time: 05/08/17 4:35 AM # # Low-High Magnesium 2.0 1.6 - 2.6 mg/dL CBC AND DIFF Collection Time: 05/08/17 4:35 AM # # Low-High White Blood Cells 0.3 (LL) 4.5 - 11.0 K/UL RBC 3.50 (L) 4.0 - 5.0 M/UL Hemoglobin 10.6 (L) 12.0 - 15.0 GM/DL Hematocrit 29.8 (L) 36 - 45 % MCV 85.2 80 - 100 FL MCH 30.4 26 - 34 PG MCHC 35.7 32.0 - 36.0 G/DL RDW 18.0 (H) 11 - 15 % Platelet Count 6 (LL) 150 - 400 K/UL MPV 9.2 7 - 11 FL PREPARE APHERESIS PLATELETS Collection Time: 05/08/17 5:36 AM # # Low-High Units Ordered 1 Unit Number [id number] Blood Component Type APHERESIS PLT,LEUKO REDUCED,IRRADIATED,2ND CONT. Unit Division 0 Status OF Unit ISSUED Transfusion Status OK TO TRANSFUSE Radiology Review: No pertinent radiology. Alisha Gregorio MD * Olga Lidia Peña RN - 05/08/2017 5:41 AM CDT Asked lab to rerun hemoglobin. This am hemoglobin at 10.6 and yesterday morning was 7.1, patient did not receive any blood products, awaiting new results * Veena Beck, OT - 05/07/2017 4:14 PM CDT OCCUPATIONAL THERAPY NOTE The patient was not seen due to: Patient declined OT met with patient this date. Pt declined OT due to "itching". OT offered to assist w/ applying lotion but pt reports already been completed and did not provide comfort. Pt very conversant this date - reports having a good day other than itching. OT will continue to follow and provide intervention as indicated. Therapist: Veena Beck, OTR/L [id number] Date: 05/07/2017 * Ari Collazo MD - 05/07/2017 12:40 PM CDT Formatting of this note may be different from the original. 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 Hypoglycemia is recurrent in spite of D5 normal saline drip. Recurrent UTI Acute leukemia A. fib CKD stage III Recommendations: - Hypoglycemia has resolved. - well- controlled DM - continue lantus 12 units daily - continue novolog 7 units with meals - continue [facility] - plan to restart glimepiride lower dose or metformin at discharge. We will continue to follow Patient was seen and discussed with Dr. Ledezma History of Present Illness Giselle Moraes is a 56 y.o. female with past medical history of A. fib, type 2 diabetes, CKD stage III, UTI, anxiety was admitted for suspicion for acute leukemia. Endocrinology was consulted for recurrent hypoglycemia. Patient is still very fatigued and tired She states that she is eating well. Denies nausea , vomitng , abdominal pain Estimated Creatinine Clearance: 130.7 mL/min (based on Cr of 0.7). 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 No pertinent family history. Allergies Allergies Allergen Reactions Ciprofloxacin SEE COMMENTS Per Nephrology doctors. Levofloxacin SEE COMMENTS Per nephrology doctors. Nsaids (Non-Steroidal Anti-Inflammatory Drug) SEE COMMENTS Per nephrology doctors. Bactrim [Sulfamethoxazole-Trimethoprim] SEE COMMENTS Per Nephrology Doctors. Contrast Dye Iv, Iodine Containing [Iodinated Contrast- Oral And Iv Dye] SEE COMMENTS Per nephrology doctors. Review of Systems A comprehensive 14-point review of systems was negative with exception of: Fatigue Medications Scheduled Meds: acyclovir (ZOVIRAX) tablet 800 mg 800 mg Oral BID atenolol (TENORMIN) tablet 25 mg 25 mg Oral QDAY cefepime (MAXIPIME) 2 g/100 ml iso-osmotic IVPB 2 g Intravenous Q12H* diltiazem CD (cardIZEM CD) capsule 240 mg 240 mg Oral QDAY insulin aspart (NOVOLOG FLEXPEN) injection PEN 0-14 Units 0-14 Units Subcutaneous ACHS insulin aspart (NOVOLOG FLEXPEN) injection PEN 7 Units 7 Units Subcutaneous TID w/ meals insulin glargine (LANTUS SOLOSTAR) injection PEN 12 Units 12 Units Subcutaneous QDAY(12) micafungin (MYCAMINE) 50 mg in sodium chloride 0.9% (NS) 105 mL IVPB 50 mg Intravenous Q24H* polyethylene glycol 3350 (MIRALAX) packet 17 g 1 packet Oral QDAY senna (SENOKOT) tablet 1 tablet 1 tablet Oral BID SODIUM CHLORIDE 0.9 % IV SOLP (Cabinet Override) NOW Continuous Infusions: PRN and Respiratory Meds:acetaminophen Q6H PRN, ALPRAZolam BID PRN, alteplase PRN (Compliance Representative from Rx), loperamide PRN, LORazepam Q6H PRN, LORazepam injection Q6H PRN, magnesium sulfate 4 g/50 mL PRN, milk of magnesia (CONC) Q6H PRN, potassium chloride PRN (Compliance Representative from Rx) OR potassium chloride SR PRN (Compliance Representative from Rx), saliva, synthetic PRN, sodium chloride 0.9% irrigation bottle PRN Physical Examination Vital Signs: Last Vital Signs: 24 Hour Range BP: 135/82 (05/07 808) Temp: 36.3 C (97.4 F) (05/07 808) Pulse: 98 (05/07 808) Respirations: 18 PER MINUTE (05/07 808) SpO2: 99 % (05/07 808) O2 Delivery: Nasal Cannula (05/07 808) BP: (90-135)/(46-82) Temp: [36.3 C (97.4 F)-37.2 C (98.9 F)] Pulse: [64-98] Respirations: [18 PER MINUTE-20 PER MINUTE] SpO2: [99 %-100 %] O2 Delivery: Nasal Cannula General appearance: alert, oriented, looking tired HENT: Dry oral mucosa, dried blood on lips Lungs: no wheezing, rhonchi, rales appreciated Heart: Regular rhythm, reg rate, with no murmur, rub, gallop Abdomen: soft, non-tender, non-distended, normoactive bowel sounds, Ext: No clubbing, cyanosis or edema Skin: no rashes/lesions Lab Review Point of Care Testing (Last 24 hours) Glucose: 99 (05/07/17 0410) POC Glucose (Download): (!) 120 (05/07/17 0904) Recent Labs 05/04/17 1919 05/05/17 0435 05/05/17 2211 05/06/175 05/06/17203405/07/17 0410 NA 142 141 140 140 137 140 K 3.7 4.3 4.0 4.7 3.9 4.4 CL 106 107 107 107 102 105 CO2 31* 32* 30 31* 31* 32* GAP 5 2* 3 2* 4 3 BUN 33* 29* 26* 24 27* 26* CR 0.85 0.76 0.74 0.67 0.81 0.70 GLU 179* 153* 194* 133* 202* 99 CA 7.7* 8.0* 7.8* 8.0* 7.7* 8.1* ALBUMIN -- 2.3* -- 2.3* -- 2.4* MG -- 1.9 -- 1.9 -- 2.0 Recent Labs 05/05/175 05/06/1744405/07/17 0410 WBC 0.4* 0.4* 0.5* HGB 6.7* 7.0* 7.1* HCT 19.9* 20.4* 20.4* PLTCT 9* 13* 11* AST 8 7 9 ALT 11 6* 6* ALKPHOS 24* 25 27 Estimated Creatinine Clearance: 130.7 mL/min (based on Cr of 0.7). Vitals: 05/03/17 1744 05/04/17 1143 05/06/17 1022 Weight: (!) 148.8 kg (328 lb 1.9 oz) (!) 144.2 kg (318 lb) (!) 143.8 kg (317 lb 1.9 oz) Thyroid Studies No results found for: TSH, FREET4, FREEINDEX No results found for: FREET3, [id number], THYBINDGLB Ari Collazo MD Endocrinology Fellow [id number] [phone] Associated attestation - Jh Ledezma MD - 05/08/2017 7:55 AM CDT Formatting of this note may be different from the original. ATTESTATION I personally performed the carrizales portions of the E/M visit, discussed case with resident and concur with resident documentation of history, physical exam, assessment, and treatment plan unless otherwise noted. As per Dr. Collazo. She is eating well, and could start on metformin at any time. Staff name: Jh Ledezma MD Date: 05/08/2017 * Arnold Sparks, PT - 05/07/2017 10:55 AM CDT PHYSICAL THERAPY PROGRESS NOTE MOBILITY: Mobility Progressive Mobility Level: Walk in hallway Distance Walked (feet): 150 ft Level of Assistance: Assist X1 (had chair follow but didn't need it) Assistive Device: Walker Time Tolerated: 11-30 minutes Activity Limited By: Fatigue SUBJECTIVE: Subjective Significant hospital events: Patient is a 56 year old female with new diagnosis of AML. Patient admitted for start of chemotherapy. Patient is obese with bariatric bed in place. 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 Ambulation Assist: Independent Mobility in Community with Device Patient Owned Equipment: Roller Walker Home Situation: Lives with Family Type of Home: House Entry Stairs: 3-5 Stairs;Rail on Both Sides In-Home Stairs: Able to Live on One Level BED MOBILITY/TRANSFERS: Bed Mobility/Transfers Bed Mobility: Supine to Sit: Standby Assist;Head of Bed Elevated;Use of Rail Bed Mobility: Sit to Supine: Minimal Assist;Assist with B LE Transfer Type: Sit to/from Stand Transfer: Assistance Level: To/From;Bed;Standby Assist Transfer: Assistive Device: Roller Walker End Of Activity Status: In Bed;Nursing Notified;Instructed Patient to Use Call Light GAIT: Gait Gait Distance: 150 feet Gait: Assistance Level: Minimal Assist;Standby Assist Gait: Assistive Device: Roller Walker Gait: Descriptors: Pace: Slow;Swing-Through Gait;No balance loss;Normal step length Comments: A few standing rest breaks due to fatigue. EDUCATION: Education Persons Educated: Patient Patient Barriers To Learning: None Noted Teaching Methods: Verbal Instruction Patient Response: Verbalized Understanding Topics: Mobility Progression ASSESSMENT/PROGRESS: Assessment/Progress Impaired Mobility Due To: Decreased Strength;Decreased Activity Tolerance; Medical Status Limitation Assessment/Progress: Should Improve w/ Continued PT;Expect Slow Progress Comments: Patient surprising did very well today and states she knew she could walk but just hand't felt well enough to do so. Patient is going to continue to benefit maintaining active while in the hospital to assist with safe home discharge. AM-PAC 6 Clicks Basic Mobility Inpatient Turning from your back to your side while in a flat bed without using bed rails : A Little Moving from lying on your back to sitting on the side of a flatbed without using bedrails : A Little Moving to and from a bed to a chair (including a wheelchair): A Little Standing up from a chair using your arms (e.g. wheelchair, or bedside chair): A Little To walk in hospital room: A Little Climbing 3-5 steps with a railing: A Little Raw Score: 18 Standardized (T-scale) Score: 41.05 Basic Mobility CMS 0-100%: 40.47 CMS G Code Modifier for Basic Mobility: CK GOALS: Goals Goal Formulation: With Patient Time For Goal Achievement: 7 days Pt Will Go Supine To/From Sit: w/ Minimal Assist Pt Will Transfer Bed/Chair: w/ Minimal Assist Pt Will Transfer Sit to Stand: w/ Minimal Assist Pt Will Ambulate: 11-30 Feet, w/ Walker, w/ Minimal Assist PLAN: Plan Treatment Interventions: Mobility Training;Strengthening;Balance Activities; Coordination Training;Endurance Training Plan Frequency: 5 Days per Week Comments: Continue to improve ambulation ability, work on further strength and endurance activity. RECOMMENDATIONS: PT Discharge Recommendations PT Discharge Recommendations: Inpatient Setting;versus;Home Health Setting;to address deficits, maximize function and improve safety Equipment Recommendations: Patient owns necessary equipment Therapist: Arnold Sparks DPT Date: 05/07/2017 * Honorio Cooper RN - 05/07/2017 6:51 AM CDT Shift: 0 - 729 NEWS Score: 2, 2, 2 (supp. O2) Pain: no complaints Nutrition: ADA diet; poor appetite GI/: good urine output through Gonzalez; last BM 05/06. c-diff neg. imodium given. Activity: up with assist x2, gait belt, and walker to chair during the day Family: none present this shift Last Shower: 05/06 New Events or Follow-up: 4 bags of K+ infused overnight for K+ 3.9 w/ 2000 lab; Mg (2.0) replacement this AM per high goal * Alisha Gregorio MD - 05/07/2017 6:43 AM CDT Formatting of this note may be different from the original. 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 Cardiology consulted. - Monitor TLS labs and DIC labs daily - Start 7+3 04/28/2017, FLT3 ITD positive, will submit to add midostaurin - D10 of 7+3 Heme: - Anemia and thrombocytopenia due to underlying AML. Hb was 7.1 and Platelet was 11,000 on 05/07/17 - Previously on anticoagulation with apixaban for Atrial fibrillation, will hold for now with thrombocytopenia - Anticoagulation with lovenox for DVT ppx contraindicated due to thrombocytopenia, SCD's when on bed FEN/Renal: - Creatinine improved. - Appreciate renal recommendations - Monitor electrolytes, will be high goal replacement with h/o atrial fibrillation. - Close monitoring of fluid status - Will need Lasix daily until weight improves, ID: - Presents with UTI and fever - Urine cx from [facility] 04/23: + E.Coli resistant to ampicillin, Bactrim, Nitrofurantoin. Intermediate resistance to gent and Unasyn. Susceptible to ceftriaxone, zosyn, meropenem, cipro and aztreonam - Blood cx x [address] [facility] 10/6: NGTD - Cefepime continues, had vancomycin and daptomycin on 04/24-04/25, discontinued, restart vanco if febrile. Needs to complete at least a 14 day course of cefepime for complicated UTI. Will plan to continue until neutropenia resolves - Has urinary catheter in place, did have urinary retention after trying to remove, will try again in one week after finishing antibiotics. Lots of sediment in urine and chronic UTI. - On prophylaxis with micafungin and acyclovir C.diff negative GI: - No nausea, vomiting. Had multiple BM 05/03/17. Patient felt better after BM. C.diff negative - Low albumin. Liver functions normal - Obese, BMT>40 - Standing weights not possible due to patient factors Endo: - Has type II DM, on glimiperide has been discontinued on admission - Had persistent low blood sugars, now blood sugars better - Endocrinology consultation obtained and appreciate recommendations; On lantus 12 units, 7 units Novolog with meals and [facility] CVS: - H/o atrial fibrillation, rate controlled. 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 Atenolol held 05/02/17 night due to 2 sec pause. Re started on 05/05 - Mild moderate - Will hold apixaban - Cardiology opinion appreciated, 2d Echo- normal EF 60%. Psych/Social: Pleasant, no issues - On alprazolam for anxiety, currently continued at low dose - Lives in [place], , currently on disability, son lives in [facility] - Need to schedule family meeting to discuss future treatment course, had first discussion with and family friend on 04/28. PT/OT: Mobility is a big issue. Subjective: Giselle Moraes is a 56 y.o. female. Tolerated chemo very well. Feeling tired today. Some nausea. Not moving much. Feet swollen. Legs hurt. Diarrhea and taking Imodium. No bleeding. Has Gonzalez in Review of Systems: Constitutional: + fatigue, anorexia, appetite change, HEENT: Negative. No ear/ nose problems. No gum bleeding Respiratory: mild SOB Cardiovascular: Negative for chest pain, chest pressure, palpitations, 2+ edema in extremeties Gastrointestional: diarrhea intermittent. No abdominal pain/ nausea or vomiting , felt bloated but better after BM Gernitourinary: +dysuria, no hematuria, has Gonzalez in place Musculoskeletal: cannot walk or get up without assistance, severe neuropathy and right knee pain since surgery Skin: Negative Psych: + anxiety Objective: Medications: Scheduled Meds: acyclovir (ZOVIRAX) tablet 800 mg 800 mg Oral BID atenolol (TENORMIN) tablet 25 mg 25 mg Oral QDAY cefepime (MAXIPIME) 2 g/100 ml iso-osmotic IVPB 2 g Intravenous Q12H* diltiazem CD (cardIZEM CD) capsule 240 mg 240 mg Oral QDAY insulin aspart (NOVOLOG FLEXPEN) injection PEN 0-14 Units 0-14 Units Subcutaneous ACHS insulin aspart (NOVOLOG FLEXPEN) injection PEN 7 Units 7 Units Subcutaneous TID w/ meals insulin glargine (LANTUS SOLOSTAR) injection PEN 12 Units 12 Units Subcutaneous QDAY(12) micafungin (MYCAMINE) 50 mg in sodium chloride 0.9% (NS) 105 mL IVPB 50 mg Intravenous Q24H* polyethylene glycol 3350 (MIRALAX) packet 17 g 1 packet Oral QDAY senna (SENOKOT) tablet 1 tablet 1 tablet Oral BID SODIUM CHLORIDE 0.9 % IV SOLP (Cabinet Override) NOW Continuous Infusions: sodium chloride 0.9 % infusion 75 mL/hr at 05/07/17 0641 PRN and Respiratory Meds:acetaminophen Q6H PRN, ALPRAZolam BID PRN, alteplase PRN (Compliance Representative from Rx), loperamide PRN, LORazepam Q6H PRN, LORazepam injection Q6H PRN, magnesium sulfate 4 g/50 mL PRN, milk of magnesia (CONC) Q6H PRN, potassium chloride PRN (Compliance Representative from Rx) OR potassium chloride SR PRN (Compliance Representative from Rx), saliva, synthetic PRN, sodium chloride 0.9% irrigation bottle PRN Vital Signs: Last Filed Vital Signs: 24 Hour Range BP: 124/72 (05/07 410) Temp: 36.4 C (97.5 F) (05/07 410) Pulse: 87 (05/07 410) Respirations: 18 PER MINUTE (05/07 410) SpO2: 100 % (05/07 410) O2 Delivery: Nasal Cannula (05/07 410) BP: (90-146)/(46-74) Temp: [36.4 C (97.5 F)-37.2 C (98.9 F)] Pulse: [64-88] Respirations: [18 PER MINUTE-20 PER MINUTE] SpO2: [97 %-100 %] O2 Delivery: Nasal Cannula Intensity Pain Scale 0-10 (Pain 1): (not recorded) Vitals: 05/03/17 1744 05/04/17 1143 05/06/17 1022 Weight: (!) 148.8 kg (328 lb 1.9 oz) (!) 144.2 kg (318 lb) (!) 143.8 kg (317 lb 1.9 oz) Intake/Output Summary: (Last 24 hours) Intake/Output Summary (Last 24 hours) at 05/07/17 0643 Last data filed at 05/07/17 0410 Gross per 24 hour Intake 556.66 ml Output 5300 ml Net -4743.34 ml Physical Exam: Performance Status (Karnofsky): 40% Disabled, requires special care and assistance General: awake & oriented, no acute distress, appears stated age, Morbidly obese HENT: normocephalic, atraumatic, non-icteric, clear conjunctivae, no adenopathy. Eyes: Conjunctuvae clear. PERRL, EOMs intact. CV: AFIB, no murmur, click, rub Lungs: clear to ausculation bilaterally, Decreased BS at bases Abdomen: Obese abdomen, soft, non-tender, non-distended, normo-active bowel sounds. Has indwelling catheter Extremities: 2+ edema, Skin: Warm & dry. Skin color, turgor normal. No rahses or lesions Neuro: Non focal Psych: Normal mood and affect. Judgment and thought content normal. Lab Review: Results for orders placed or performed during the hospital encounter of (from the past 48 hour(s)) POC GLUCOSE Collection Time: 05/05/17 8:36 AM # # Low-High Glucose, POC 156 (H) 70 - 100 MG/DL POC GLUCOSE Collection Time: 05/05/17 11:41 AM # # Low-High Glucose, POC 132 (H) 70 - 100 MG/DL POC GLUCOSE Collection Time: 05/05/17 4:52 PM # # Low-High Glucose, POC 153 (H) 70 - 100 MG/DL POC GLUCOSE Collection Time: 05/05/17 8:42 PM # # Low-High Glucose, POC 159 (H) 70 - 100 MG/DL BASIC METABOLIC PANEL Collection Time: 05/05/17 10:11 PM # # Low-High Sodium 140 137 - 147 MMOL/L Potassium 4.0 3.5 - 5.1 MMOL/L Chloride 107 98 - 110 MMOL/L CO2 30 21 - 30 MMOL/L Anion Gap 3 3 - 12 Glucose 194 (H) 70 - 100 MG/DL Blood Urea Nitrogen 26 (H) 7 - 25 MG/DL Creatinine 0.74 0.4 - 1.00 MG/DL Calcium 7.8 (L) 8.5 - 10.6 MG/DL eGFR Non >60 >60 mL/min eGFR >60 >60 mL/min C DIFFICILE BY PCR Collection Time: 05/05/17 10:45 PM # # Low-High Battery Name C DIFFICILE PCR Specimen Description FECES Special Requests NONE C. Difficile Toxin B PCR NEGATIVE-wait 7 days to repeat test Report Status FINAL 05/06/2017 COMPREHENSIVE METABOLIC PANEL Collection Time: 05/06/17 4:45 AM # # Low-High Sodium 140 137 - 147 MMOL/L Potassium 4.7 3.5 - 5.1 MMOL/L Chloride 107 98 - 110 MMOL/L Glucose 133 (H) 70 - 100 MG/DL Blood Urea Nitrogen 24 7 - 25 MG/DL Creatinine 0.67 0.4 - 1.00 MG/DL Calcium 8.0 (L) 8.5 - 10.6 MG/DL Total Protein 5.1 (L) 6.0 - 8.0 G/DL Total Bilirubin 1.0 0.3 - 1.2 MG/DL Albumin 2.3 (L) 3.5 - 5.0 G/DL Alk Phosphatase 25 25 - 110 U/L AST (SGOT) 7 7 - 40 U/L CO2 31 (H) 21 - 30 MMOL/L ALT (SGPT) 6 (L) 7 - 56 U/L Anion Gap 2 (L) 3 - 12 eGFR Non >60 >60 mL/min eGFR >60 >60 mL/min MAGNESIUM Collection Time: 05/06/17 4:45 AM # # Low-High Magnesium 1.9 1.6 - 2.6 mg/dL CBC AND DIFF Collection Time: 05/06/17 4:45 AM # # Low-High White Blood Cells 0.4 (LL) 4.5 - 11.0 K/UL RBC 2.31 (L) 4.0 - 5.0 M/UL Hemoglobin 7.0 (L) 12.0 - 15.0 GM/DL Hematocrit 20.4 (L) 36 - 45 % MCV 88.7 80 - 100 FL MCH 30.5 26 - 34 PG MCHC 34.3 32.0 - 36.0 G/DL RDW 18.3 (H) 11 - 15 % Platelet Count 13 (LL) 150 - 400 K/UL MPV 9.0 7 - 11 FL POC GLUCOSE Collection Time: 05/06/17 7:55 AM # # Low-High Glucose, POC 144 (H) 70 - 100 MG/DL POC GLUCOSE Collection Time: 05/06/17 12:05 PM # # Low-High Glucose, POC 187 (H) 70 - 100 MG/DL POC GLUCOSE Collection Time: 05/06/17 6:11 PM # # Low-High Glucose, POC 167 (H) 70 - 100 MG/DL BASIC METABOLIC PANEL Collection Time: 05/06/17 8:35 PM # # Low-High Sodium 137 137 - 147 MMOL/L Potassium 3.9 3.5 - 5.1 MMOL/L Chloride 102 98 - 110 MMOL/L CO2 31 (H) 21 - 30 MMOL/L Anion Gap 4 3 - 12 Glucose 202 (H) 70 - 100 MG/DL Blood Urea Nitrogen 27 (H) 7 - 25 MG/DL Creatinine 0.81 0.4 - 1.00 MG/DL Calcium 7.7 (L) 8.5 - 10.6 MG/DL eGFR Non >60 >60 mL/min eGFR >60 >60 mL/min POC GLUCOSE Collection Time: 05/06/17 9:04 PM # # Low-High Glucose, POC 187 (H) 70 - 100 MG/DL COMPREHENSIVE METABOLIC PANEL Collection Time: 05/07/17 4:10 AM # # Low-High Sodium 140 137 - 147 MMOL/L Potassium 4.4 3.5 - 5.1 MMOL/L Chloride 105 98 - 110 MMOL/L Glucose 99 70 - 100 MG/DL Blood Urea Nitrogen 26 (H) 7 - 25 MG/DL Creatinine 0.70 0.4 - 1.00 MG/DL Calcium 8.1 (L) 8.5 - 10.6 MG/DL Total Protein 5.1 (L) 6.0 - 8.0 G/DL Total Bilirubin 1.2 0.3 - 1.2 MG/DL Albumin 2.4 (L) 3.5 - 5.0 G/DL Alk Phosphatase 27 25 - 110 U/L AST (SGOT) 9 7 - 40 U/L CO2 32 (H) 21 - 30 MMOL/L ALT (SGPT) 6 (L) 7 - 56 U/L Anion Gap 3 3 - 12 eGFR Non >60 >60 mL/min eGFR >60 >60 mL/min MAGNESIUM Collection Time: 05/07/17 4:10 AM # # Low-High Magnesium 2.0 1.6 - 2.6 mg/dL CBC AND DIFF Collection Time: 05/07/17 4:10 AM # # Low-High White Blood Cells 0.5 (LL) 4.5 - 11.0 K/UL RBC 2.35 (L) 4.0 - 5.0 M/UL Hemoglobin 7.1 (L) 12.0 - 15.0 GM/DL Hematocrit 20.4 (L) 36 - 45 % MCV 87.0 80 - 100 FL MCH 30.2 26 - 34 PG MCHC 34.8 32.0 - 36.0 G/DL RDW 18.2 (H) 11 - 15 % Platelet Count 11 (LL) 150 - 400 K/UL MPV 8.6 7 - 11 FL Radiology Review: No pertinent radiology. Alisha Gregorio MD * Maritza Huddleston RN - 05/06/2017 4:48 PM CDT End of Shift Note NEWS score : 0800: 0 1200: 0 1500: 0 Nutrition: ADA diet, poor appetite, improved from yesterday. Pt concerned about eating d/y loose stools Activity:X2 with gait belt and walker to chair. Pt up to chair for 1 hours this afternoon, tolerated well. Pain: No complaints of pain this shift. PRN's available. GI/: Adequate urine output through shift, lasix given. Last BM 05/06 Family: No family at bedside. Last shower and linen change: Follow up: Received transfusion in am. C-Diff negative. * Blanca Haney MD - 05/06/2017 1:57 PM CDT Formatting of this note may be different from the original. 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 female with CKD admitted with AML 1. CKD - renal function stable Cr around 1 2. High risk for TLS - received 1 dose of rasburicase - phos mildly high 3. UTI 4. DM 5. A. Fib Recommendations - continue with diuresis as she is significant volume overloaded - her renal function is at baseline and stable will sign off at this point. 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 female no acute events overnight. She continues to have lower extremity, she denies any chest pain, nausea, vomiting. She has noticed watery stool. Medications Medications MEDS acyclovir (ZOVIRAX) tab/cap 800 mg Oral BID atenolol 25 mg Oral QDAY cefepime (MAXIPIME) IVPB 2 g Intravenous Q12H* diltiazem CD 240 mg Oral QDAY insulin aspart 0-14 Units Subcutaneous ACHS insulin aspart 7 Units Subcutaneous TID w/ meals insulin glargine 12 Units Subcutaneous QDAY(12) micafungin (MYCAMINE) IVPB 50 mg Intravenous Q24H* polyethylene glycol 3350 1 packet Oral QDAY senna 1 tablet Oral BID IV MEDS sodium chloride 0.9 % infusion 75 mL/hr at 05/06/17 0446 Prn acetaminophen Q6H PRN 650 mg at 04/24/172019, ALPRAZolam BID PRN 1 mg at 05/05/172042, alteplase PRN (Compliance Representative from Rx), LORazepam Q6H PRN, LORazepam injection Q6H PRN, magnesium sulfate 4 g/50 mL PRN 4 g at 05/06/17 0710, milk of magnesia (CONC) Q6H PRN, potassium chloride PRN (Compliance Representative from Rx) 10 mEq at 05/06/17 0317 OR potassium chloride SR PRN (Compliance Representative from Rx) 40 mEq at 05/01 2229, saliva, synthetic PRN, sodium chloride 0.9% irrigation bottle PRN Physical Exam Vital Signs: Last Filed In 24 Hours Vital Signs: 24 Hour Range BP: 126/61 (05/06 1124) Temp: 36.9 C (98.5 F) (05/06 1124) Pulse: 80 (05/06 1124) Respirations: 18 PER MINUTE (05/06 112) SpO2: 100 % (05/06 1124) O2 Delivery: None (Room Air) (05/06 1037) BP: (120-146)/(46-74) Temp: [36.7 C (98.1 F)-37.7 C (99.8 F)] Pulse: [70-98] Respirations: [18 PER MINUTE] SpO2: [97 %-100 %] O2 Delivery: None (Room Air) Intake/Output Summary (Last 24 hours) at 05/06/17 1357 Last data filed at 05/06/17 1212 Gross per 24 hour Intake 564.99 ml Output 3250 ml Net -2685.01 ml Vitals: 05/03/17 1744 05/04/17 1143 05/06/17 1022 Weight: (!) 148.8 kg (328 lb 1.9 oz) (!) 144.2 kg (318 lb) (!) 143.8 kg (317 lb 1.9 oz) Gen: Alert and Oriented HEENT: Sclera normal CV: no JVD, S1 and S2 normal, no rubs, murmurs or gallops Pulm: Clear to auscultation bilateral GI: BS+ x4, non-tender to palpation Neuro: Grossly normal, moving all extremities, speech intact Ext: 3+ edema Skin: no rash Labs: Recent Labs 05/03/17201205/04/1731005/04/171919 04/18/17 0435 05/05/17 2211 05/06/17 0445 NA 142 143 142 141 140 140 K 3.9 4.0 3.7 4.3 4.0 4.7 CL 110 112* 106 107 107 107 CO2 26 27 31* 32* 30 31* GAP 6 4 5 2* 3 2* BUN 44* 38* 33* 29* 26* 24 CR 0.87 0.72 0.85 0.76 0.74 0.67 GLU 188* 131* 179* 153* 194* 133* CA 7.6* 7.8* 7.7* 8.0* 7.8* 8.0* ALBUMIN -- 2.3* -- 2.3* -- 2.3* MG -- 2.0 -- 1.9 -- 1.9 Recent Labs 05/04/1731005/05/175 05/06/17 0445 WBC 0.6* 0.4* 0.4* HGB 6.5* 6.7* 7.0* HCT 19.2* 19.9* 20.4* PLTCT 13* 9* 13* AST 10 8 7 ALT 12 11 6* ALKPHOS 24* 24* 25 Estimated Creatinine Clearance: 130.7 mL/min (based on Cr of 0.67). Vitals: 05/03/17 1744 05/04/17 1143 05/06/17 1022 Weight: (!) 148.8 kg (328 lb 1.9 oz) (!) 144.2 kg (318 lb) (!) 143.8 kg (317 lb 1.9 oz) No results for input(s): PHART, PO2ART in the last 72 hours. Invalid input(s): PC02A * Veena Beck, OT - 05/06/2017 1:20 PM CDT OCCUPATIONAL THERAPY PROGRESS NOTE Admitting Diagnosis: AML Leukocytosis Patient seen x1 and [place] with PT this date. Documentation reflects all daily treatment sessions. Mobility Progressive Mobility Level: Stand Level of Assistance: Assist X2 Assistive Device: Hand Held Time Tolerated: 11-30 minutes Activity Limited By: Patient request to stop Subjective Pertinent Dx per Physician: 56 year old female with new diagnosis of AML. Patient admitted for start of chemotherapy. Patient is obese with bariatric bed in place. Precautions: Falls;Isolation (contact plus) Pain / Complaints: Patient agrees to participate in therapy Comments: Pt c/o R forearm pain upon transferring to sitting edge of bed. Pt described it as a shooting pain. Pt did not c/o pain with R UE wrist flexion/ extension or radial/ulnar deviation. RN notified. Objective Psychosocial Status: Willing and Cooperative to Participate Persons Present: PT Home Living Type of Home: House Home Layout: One Level;Stairs to Enter w/ Rails Bathroom Shower / Tub: Walk-in Shower Bathroom Toilet: Standard Bathroom Equipment: Built-in Seat in Shower;Shower Chair;Commode;Grab Bars in Shower Bathroom Accessibility: Accessible via Walker Home Equipment: Walker;Commode;Grab Bars;Shower/Tub Bench Prior Function Level Of [place]: Needed assistance with ADLs;Needed assistance with homemaking;Independent with ADLs and functional transfers Lives With: Spouse Receives Help From: Spouse Homemaking Tasks: Meal Prep;Laundry;Cleaning;Driving Homemaking Assist: Total Assist ADL's Where Assessed: Edge of Bed LE Dressing Assist: Total Assist LE Dressing Deficits: Don/Doff R Sock;Don/Doff L Sock Comment: Pt supine in bed upon OT/PT arrival. Pt able to complete supine>sit with contact guard assist. Pt required minimal assist to sit>stand with additional assist for safety. Pt able to step up on to standing scale (per RN request) with minimal assist x2. Pt requested to return to bed and declined any additional ADL tasks. Pt able to stand>sit and sit>supine with minimal assist. Pt supine at end of session with all needs within reach and bed alarm set. Activity Tolerance Endurance: 2/5 Tolerates 10-20 Minutes Exercise w/Multiple Rests Sitting Balance: 3+/5 Sits w/o UE Support for 30 Seconds or Greater Cognition Overall Cognitive Status: WFL to Adequately Complete Self Care Tasks Safely Attention: Awake/Alert Education Persons Educated: Patient Teaching Methods: Verbal Instruction Patient Response: Verbalized and Demo Understanding Topics: Role of OT, Goals for Therapy Goal Formulation: With Patient Assessment Assessment: Decreased ADL Status;Decreased Endurance;Decreased Self-Care Trans; Decreased High-Level ADLs Goal Formulation: Patient AM-PAC 6 Clicks Daily Activity Inpatient Putting on and taking off regular lower body clothes?: Total Bathing (Including washing, rinsing, drying): A Lot Toileting, which includes using toilet, bedpan, or urinal: Total Putting on and taking off regular upper body clothing: A Lot Taking care of personal grooming such as brushing teeth: None Eating meals?: None Daily Activity Raw Score: 14 Standardized (t-scale) score: 33.39 CMS 0-100% Score: 59.67 CMS G Code Modifier: CK Plan Treatment Interventions: ADL Retraining;Functional Transfer Training;Endurance Training;Equipment Evaluation/Education;Patient/Family Training;Fine Motor Coordination Activities OT Frequency: 5x/week Plan for next visit: fine motor coordination activities Further Evaluation Goals Pt Will Tolerate Further ADL Evaluation: w/in1-2 sessions ADL Goals Patient Will Perform Grooming: w/ Stand By Assist Patient Will Perform LE Dressing: At Edge of Bed, Standing at Edge of Bed, w/ Minimum Assist Functional Transfer Goals Pt Will Perform All Functional Transfers: w/ Stand By Assist Arm Goals Pt Will Perform AROM: B UE, 2 Sets, 10 Reps, w/ Good Activity Tolerance Discharge Recommendations: an inpatient setting Equipment Recommendations: Too early to be determined Therapist: Veena Beck OTR/[place] [id number] Date: 05/06/2017 * Ari Collazo MD - 05/06/2017 12:14 PM CDT Formatting of this note may be different from the original. 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 Hypoglycemia is recurrent in spite of D5 normal saline drip. Recurrent UTI Acute leukemia A. fib CKD stage III Recommendations: - Hypoglycemia has resolved. - well- controlled DM - continue lantus 12 units daily - continue novolog 7 units with meals - continue MDCF - plan to restart glimepiride lower dose at discharge. We will continue to follow Patient was seen and discussed with Dr. Ledezma History of Present Illness Giselle Moraes is a 56 y.o. female with past medical history of A. fib, type 2 diabetes, CKD stage III, UTI, anxiety was admitted for suspicion for acute leukemia. Endocrinology was consulted for recurrent hypoglycemia. Patient is still very fatigued and tired Eating well. Denies nausea , vomitng , abdominal pain Estimated Creatinine Clearance: 130.7 mL/min (based on Cr of 0.67). 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 No pertinent family history. Allergies Allergies Allergen Reactions Ciprofloxacin SEE COMMENTS Per Nephrology doctors. Levofloxacin SEE COMMENTS Per nephrology doctors. Nsaids (Non-Steroidal Anti-Inflammatory Drug) SEE COMMENTS Per nephrology doctors. Bactrim [Sulfamethoxazole-Trimethoprim] SEE COMMENTS Per Nephrology Doctors. Contrast Dye Iv, Iodine Containing [Iodinated Contrast- Oral And Iv Dye] SEE COMMENTS Per nephrology doctors. Review of Systems A comprehensive 14-point review of systems was negative with exception of: Fatigue Medications Scheduled Meds: acyclovir (ZOVIRAX) tablet 800 mg 800 mg Oral BID atenolol (TENORMIN) tablet 25 mg 25 mg Oral QDAY cefepime (MAXIPIME) 2 g/100 ml iso-osmotic IVPB 2 g Intravenous Q12H* diltiazem CD (cardIZEM CD) capsule 240 mg 240 mg Oral QDAY insulin aspart (NOVOLOG FLEXPEN) injection PEN 0-14 Units 0-14 Units Subcutaneous ACHS insulin aspart (NOVOLOG FLEXPEN) injection PEN 7 Units 7 Units Subcutaneous TID w/ meals insulin glargine (LANTUS SOLOSTAR) injection PEN 12 Units 12 Units Subcutaneous QDAY(12) micafungin (MYCAMINE) 50 mg in sodium chloride 0.9% (NS) 105 mL IVPB 50 mg Intravenous Q24H* polyethylene glycol 3350 (MIRALAX) packet 17 g 1 packet Oral QDAY senna (SENOKOT) tablet 1 tablet 1 tablet Oral BID Continuous Infusions: sodium chloride 0.9 % infusion 75 mL/hr at 05/06/17 0446 PRN and Respiratory Meds:acetaminophen Q6H PRN, ALPRAZolam BID PRN, alteplase PRN (Compliance Representative from Rx), LORazepam Q6H PRN, LORazepam injection Q6H PRN, magnesium sulfate 4 g/50 mL PRN, milk of magnesia (CONC) Q6H PRN, potassium chloride PRN (Compliance Representative from Rx) OR potassium chloride SR PRN (Compliance Representative from Rx ), saliva, synthetic PRN, sodium chloride 0.9% irrigation bottle PRN Physical Examination Vital Signs: Last Vital Signs: 24 Hour Range BP: 126/61 (05/06 1124) Temp: 36.9 C (98.5 F) (05/06 1124) Pulse: 80 (05/06 1124) Respirations: 18 PER MINUTE (05/06 112) SpO2: 100 % (05/06 1124) O2 Delivery: None (Room Air) (05/06 1037) BP: (120-146)/(46-80) Temp: [36.7 C (98.1 F)-37.7 C (99.8 F)] Pulse: [70-98] Respirations: [18 PER MINUTE] SpO2: [97 %-100 %] O2 Delivery: None (Room Air) General appearance: alert, oriented, looking tired HENT: Dry oral mucosa, dried blood on lips Lungs: no wheezing, rhonchi, rales appreciated Heart: Regular rhythm, reg rate, with no murmur, rub, gallop Abdomen: soft, non-tender, non-distended, normoactive bowel sounds, Ext: No clubbing, cyanosis or edema Skin: no rashes/lesions Lab Review Point of Care Testing (Last 24 hours) Glucose: (!) 133 (05/06/17 0445) POC Glucose (Download): (!) 187 (05/06/17 1205) Recent Labs 05/03/17 2013 05/04/17 0311 05/04/17 1919 05/05/17 0435 05/05/17 2211 05/06/17 0445 NA 142 143 142 141 140 140 K 3.9 4.0 3.7 4.3 4.0 4.7 CL 110 112* 106 107 107 107 CO2 26 27 31* 32* 30 31* GAP 6 4 5 2* 3 2* BUN 44* 38* 33* 29* 26* 24 CR 0.87 0.72 0.85 0.76 0.74 0.67 GLU 188* 131* 179* 153* 194* 133* CA 7.6* 7.8* 7.7* 8.0* 7.8* 8.0* ALBUMIN -- 2.3* -- 2.3* -- 2.3* MG -- 2.0 -- 1.9 -- 1.9 Recent Labs 05/04/17 0311 05/05/17 0435 05/06/17 0445 WBC 0.6* 0.4* 0.4* HGB 6.5* 6.7* 7.0* HCT 19.2* 19.9* 20.4* PLTCT 13* 9* 13* AST 10 8 7 ALT 12 11 6* ALKPHOS 24* 24* 25 Estimated Creatinine Clearance: 130.7 mL/min (based on Cr of 0.67). Vitals: 05/03/17 1744 05/04/17 1143 05/06/17 1022 Weight: (!) 148.8 kg (328 lb 1.9 oz) (!) 144.2 kg (318 lb) (!) 143.8 kg (317 lb 1.9 oz) Thyroid Studies No results found for: TSH, FREET4, FREEINDEX No results found for: FREET3, S8YDUHNAM, THYBINDGLB Ari Collazo MD Endocrinology Fellow [phone] Associated attestation - Jh Ledezma MD - 05/07/2017 8:24 AM CDT Formatting of this note may be different from the original. ATTESTATION I personally performed the carrizales portions of the E/M visit, discussed case with resident and concur with resident documentation of history, physical exam, assessment, and treatment plan unless otherwise noted. As per Dr. Collazo. If she continues to eat well can resume metformin. Staff name: Jh Ledezma MD Date: 05/07/2017 * Martha Alvarez, PHARMD - 05/06/2017 11:18 AM CDT Formatting of this note may be different from the original. Initial Assessment: Oral Chemotherapy Midostaurin (Rydapt) Giselle Moraes is a 56 y.o. female with a diagnosis of FLT3+ Acute Myeloid Leukemia Indication/Regimen Midostaurin (Rydapt) is being used appropriately for treatment of AML by Dr. Duval. The dosing regimen of 50 mg by mouth twice daily with food on Days 8 to 21 each chemotherapy cycle is appropriate for Giselle Moraes. It is planned to continue until chemotherapy regimen complete. Patient does not currently have prescription insurance so working on obtaining through director merit system Patient History: Cancer Diagnosis: Acute Myeloid Leukemia Relevant drug-specific markers: FLT3 positive Past treatment regimens: None Wt Readings from Last 1 Encounters: 05/06/17 (!) 143.8 kg (317 lb 1.9 oz) Estimated body surface area is 2.61 meters squared as calculated from the following: Height as of this encounter: 170.2 cm (67"). Weight as of this encounter: 143.8 kg (317 lb 1.9 oz). Allergies: Allergies Allergen Reactions Ciprofloxacin SEE COMMENTS Per Nephrology doctors. Levofloxacin SEE COMMENTS Per nephrology doctors. Nsaids (Non-Steroidal Anti-Inflammatory Drug) SEE COMMENTS Per nephrology doctors. Bactrim [Sulfamethoxazole-Trimethoprim] SEE COMMENTS Per Nephrology Doctors. Contrast Dye Iv, Iodine Containing [Iodinated Contrast- Oral And Iv Dye] SEE COMMENTS Per nephrology doctors. Baseline Labs: CBC w/Diff Lab Results Component Value Date/Time WBC 0.4 (LL) 05/06/2017 04:45 AM RBC 2.31 (L) 05/06/2017 04:45 AM HGB 7.0 (L) 05/06/2017 04:45 AM HCT 20.4 (L) 05/06/2017 04:45 AM MCV 88.7 05/06/2017 04:45 AM MCH 30.5 05/06/2017 04:45 AM MCHC 34.3 05/06/2017 04:45 AM RDW 18.3 (H) 05/06/2017 04:45 AM PLTCT 13 (LL) 05/06/2017 04:45 AM MPV 9.0 05/06/2017 04:45 AM Lab Results Component Value Date/Time NEUT 56 05/03/2017 03:20 AM ANC 0.26 (L) 05/04/2017 03:11 AM ANC 0.50 (L) 05/03/2017 03:20 AM LYMA 41 05/03/2017 03:20 AM ALC 0.40 (L) 05/03/2017 03:20 AM LAURA 3 (L) 05/03/2017 03:20 AM AMC 0.00 05/03/2017 03:20 AM EOSA 0 05/03/2017 03:20 AM AEC 0.00 05/03/2017 03:20 AM BASA 0 05/03/2017 03:20 AM ABC 0.00 05/03/2017 03:20 AM Comprehensive Metabolic Profile Lab Results Component Value Date/Time NA 140 05/06/2017 04:45 AM K 4.7 05/06/2017 04:45 AM CL 107 05/06/2017 04:45 AM CO2 31 (H) 05/06/2017 04:45 AM GAP 2 (L) 05/06/2017 04:45 AM BUN 24 05/06/2017 04:45 AM CR 0.67 05/06/2017 04:45 AM GLU 133 (H) 05/06/2017 04:45 AM Lab Results Component Value Date/Time CA 8.0 (L) 05/06/2017 04:45 AM PO4 5.7 (H) 05/02/2017 04:25 AM ALBUMIN 2.3 (L) 05/06/2017 04:45 AM TOTPROT 5.1 (L) 05/06/2017 04:45 AM ALKPHOS 25 05/06/2017 04:45 AM AST 7 05/06/2017 04:45 AM ALT 6 (L) 05/06/2017 04:45 AM TOTBILI 1.0 05/06/2017 04:45 AM GFR >60 05/06/2017 04:45 AM GFRAA >60 05/06/2017 04:45 AM CREATININE: 0.67 MG/DL (05/06/17 0445) Estimated creatinine clearance: 130.7 mL/min status The patients status was assessed. As patient is a female not of child-bearing potential, education is not applicable. Medication Reconciliation Medication reconciliation is based on the patients most recent medication list in the electronic medical record (EMR) including herbal products and OTC medications. The patient's medication list will be updated during patient education, after speaking with the patient and prior to dispensing the medication. Drug-drug interactions (DDIs) DDIs were evaluated: No significant drug-drug interactions were identified. Drug-Food Interactions Drug-food interactions were evaluated. Doses should be taken with food. Contraindications The following contraindications to the use of Midostaurin (Rydapt) were reviewed: ? Hypersensitivity to midostaurin or any component of the formulation No contraindications to therapy were identified. Safety Precautions The following safety precautions to the use of Midostaurin (Rydapt) were reviewed: ? Bone marrow suppression (higher rates of febrile neutropenia with midostaurin and chemotherapy vs. chemotherapy alone) ? Gastrointestinal toxicity (nausea, vomiting, diarrhea, abdominal pain, constipation); recommended to premedicate with antiemetics prior to administration ? Hypersensitivity ? Pulmonary toxicity (interstitial lung disease) Safety precautions for this medication have been reviewed. No concerns have been identified. Risk Evaluation and Mitigation Strategy (REMS) Assessment No REMS is required for this medication. Initial therapy assessment has been completed and the patient will be contacted to complete education on their regimen. Martha Alvarez, JOSED Clinical Pharmacist 05/06/17 * Cindy Rodriguez PTA - 05/06/2017 9:45 AM CDT PHYSICAL THERAPY PROGRESS NOTE MOBILITY: Mobility Progressive Mobility Level: Stand Level of Assistance: Assist X2 Assistive Device: Hand Held Time Tolerated: 11-30 minutes Activity Limited By: Patient request to stop SUBJECTIVE: Subjective Significant hospital events: Patient is a 56 year old female with new diagnosis of AML. Patient admitted for start of chemotherapy. Patient is obese with bariatric bed in place. Mental / Cognitive Status: Alert;Oriented;Uncooperative (limited cooperation) Persons Present: OT Pain: Patient complains of pain;Patient does not rate pain Pain Location: Right;Wrist Pain Description: (when weight bearing) Pain Interventions: Patient agrees to participate in therapy;Treatment altered to patient's pain tolerance;Patient declines pain meds Comments: Pt agreed to stand for weight only. She stated she will shower later and was not going to sit in the chair/walk. Ambulation Assist: Independent Mobility in Community with Device Patient Owned Equipment: Roller Walker Home Situation: Lives with Family Type of Home: House Entry Stairs: 3-5 Stairs;Rail on Both Sides In-Home Stairs: Able to Live on One Level BED MOBILITY/TRANSFERS: Bed Mobility/Transfers Bed Mobility: Supine to Sit: Standby Assist;Head of Bed Elevated;Use of Rail; Safety Considerations (due to the slick mattress surface) Bed Mobility: Sit to Supine: Minimal Assist;Bed Flat;Assist with B LE Transfer Type: Sit to/from Stand Transfer: Assistance Level: To/From;Bed;x2 People (contact assist) Transfer: Assistive Device: Hand Hold Assist Transfers: Type Of Assistance: Verbal Cues;For Safety Considerations End Of Activity Status: In Bed;Instructed Patient to Request Assist with Mobility;Instructed Patient to Use Call Light Comments: Pt stepped onto the scale with contact assist x 2 and then several side steps to the HOB with contact assist x 2, hand held assist. ACTIVITY/EXERCISE: Activity / Exercise Sit Edge Of Bed: 10 minutes Sit Edge Of Bed Assist: Stand By Assist Activity Limited By: Patient Choice EDUCATION: Education Persons Educated: Patient Patient Barriers To Learning: (limited cooperation) Interventions: Repetition of Instructions Teaching Methods: Verbal Instruction Patient Response: Verbalized Understanding;More Instruction Required Topics: Up with Assist Only;Importance of Increasing Activity;Safety Awareness ASSESSMENT/PROGRESS: Assessment/Progress Impaired Mobility Due To: Decreased Strength;Decreased Activity Tolerance; Medical Status Limitation Assessment/Progress: Expect Slow Progress Comments: Pt continues to be self limiting with activity which hinders progress. AM-PAC 6 Clicks Basic Mobility Inpatient Turning from your back to your side while in a flat bed without using bed rails : A Little Moving from lying on your back to sitting on the side of a flatbed without using bedrails : A Little Moving to and from a bed to a chair (including a wheelchair): A Little Standing up from a chair using your arms (e.g. wheelchair, or bedside chair): A Little To walk in hospital room: A Little Climbing 3-5 steps with a railing: A Lot Raw Score: 17 Standardized (T-scale) Score: 39.67 Basic Mobility CMS 0-100%: 43.83 CMS G Code Modifier for Basic Mobility: CK GOALS: Goals Goal Formulation: With Patient Time For Goal Achievement: 7 days Pt Will Go Supine To/From Sit: w/ Minimal Assist Pt Will Transfer Bed/Chair: w/ Minimal Assist Pt Will Transfer Sit to Stand: w/ Minimal Assist Pt Will Ambulate: 11-30 Feet, w/ Walker, w/ Minimal Assist PLAN: Plan Treatment Interventions: Mobility Training;Strengthening;Balance Activities; Coordination Training;Endurance Training Plan Frequency: 5 Days per Week Comments: If patient will allow, work on ambulation with chair follow, general strengthening exercise.and sit to stand exercises for functional strength. RECOMMENDATIONS: PT Discharge Recommendations PT Discharge Recommendations: Inpatient Setting Therapist: Cindy Rodriguez, Physical therapist email marketing assistant Date: 05/06/2017 * Honorio Cooper RN - 05/06/2017 6:44 AM CDT Shift: 1900 - 0730 NEWS Score: 2, 2, 2 (supp. O2) Pain: no complaints Nutrition: ADA diet; poor appetite GI/: good urine output through Gonzalez; last BM 05/05. c-diff sample sent Activity: in bed this shift; getting up to chair during day w/ 2, gait belt, and walker Family: none present this shift Last Shower: 05/05 New Events or Follow-up: Hgb 7.0. will replace per protocol * Alisha Gregorio MD - 05/06/2017 6:33 AM CDT Formatting of this note may be different from the original. 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 Cardiology consulted. - Monitor TLS labs and DIC labs daily - Start 7+3 04/28/2017, FLT3 ITD positive, will submit to add midostaurin - D9 of 7+3 Heme: - Anemia and thrombocytopenia due to underlying AML. PRBC today 05/06/17 - Previously on anticoagulation with apixaban for Atrial fibrillation, will hold for now with thrombocytopenia - Anticoagulation with lovenox for DVT ppx contraindicated due to thrombocytopenia, SCD's when on bed FEN/Renal: - Creatinine improved. - Appreciate renal recommendations - Discontinue allopurinol-05/05/17 - Monitor electrolytes, will be high goal replacement with h/o atrial fibrillation. - Close monitoring of fluid status - Will need Lasix daily until weight improves, ID: - Presents with UTI and fever - Urine cx from [facility] 04/23: + E.Coli resistant to ampicillin, Bactrim, Nitrofurantoin. Intermediate resistance to gent and Unasyn. Susceptible to ceftriaxone, zosyn, meropenem, cipro and aztreonam - Blood cx x [address] [facility] 04/23: NGTD - Cefepime continues, had vancomycin and daptomycin on 04/24-04/25, discontinued, restart vanco if febrile. Needs to complete at least a 14 day course of cefepime for complicated UTI. Will plan to continue until neutropenia resolves - Has urinary catheter in place, did have urinary retention after trying to remove, will try again in one week after finishing antibiotics. Lots of sediment in urine and chronic UTI. - On prophylaxis with micafungin and acyclovir C.diff pending GI: - No nausea, vomiting. Had multiple BM 05/03/17. Patient felt better after BM. C.diff pending - Low albumin. Liver functions normal - Obese, BMT>40 - Standing weights not possible due to patient factors Endo: - Has type II DM, on glimiperide has been discontinued on admission - Had persistent low blood sugars, now blood sugars better - Endocrinology consultation obtained and appreciate recommendations; On lantus 12 units, 7 units Novolog with meals and [facility] CVS: - H/o atrial fibrillation, rate controlled. 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 Atenolol held 05/02/17 night due to 2 sec pause. Re started on 05/05 - Mild moderate - Will hold apixaban - Cardiology opinion appreciated, 2d Echo- normal EF 60%. Psych/Social: Pleasant, no issues - On alprazolam for anxiety, currently continued at low dose - Lives in [place], , currently on disability, son lives in [facility] - Need to schedule family meeting to discuss future treatment course, had first discussion with and family friend on 04/28. PT/OT: Mobility is a big issue. Subjective: Giselle Moraes is a 56 y.o. female. Tolerated chemo very well. Feeling tired today. Some nausea. Not moving much. Feet swollen. Legs hurt. Review of Systems: Constitutional: + fatigue, anorexia, appetite change, HEENT: Negative. No ear/ nose problems. No gum bleeding Respiratory: mild SOB Cardiovascular: Negative for chest pain, chest pressure, palpitations, 2+ edema in extremeties Gastrointestional: diarrhea intermittent. No abdominal pain/ nausea or vomiting , felt bloated but better after BM Gernitourinary: +dysuria, no hematuria, has Gonzalez in place Musculoskeletal: cannot walk or get up without assistance, severe neuropathy and right knee pain since surgery Skin: Negative Psych: + anxiety Objective: Medications: Scheduled Meds: acyclovir (ZOVIRAX) tablet 800 mg 800 mg Oral BID atenolol (TENORMIN) tablet 25 mg 25 mg Oral QDAY cefepime (MAXIPIME) 2 g/100 ml iso-osmotic IVPB 2 g Intravenous Q12H* diltiazem CD (cardIZEM CD) capsule 240 mg 240 mg Oral QDAY insulin aspart (NOVOLOG FLEXPEN) injection PEN 0-14 Units 0-14 Units Subcutaneous ACHS insulin aspart (NOVOLOG FLEXPEN) injection PEN 7 Units 7 Units Subcutaneous TID w/ meals insulin glargine (LANTUS SOLOSTAR) injection PEN 12 Units 12 Units Subcutaneous QDAY(12) micafungin (MYCAMINE) 50 mg in sodium chloride 0.9% (NS) 105 mL IVPB 50 mg Intravenous Q24H* polyethylene glycol 3350 (MIRALAX) packet 17 g 1 packet Oral QDAY senna (SENOKOT) tablet 1 tablet 1 tablet Oral BID Continuous Infusions: sodium chloride 0.9 % infusion 75 mL/hr at 05/06/17 0446 PRN and Respiratory Meds:acetaminophen Q6H PRN, ALPRAZolam BID PRN, alteplase PRN (Compliance Representative from Rx), LORazepam Q6H PRN, LORazepam injection Q6H PRN, magnesium sulfate 4 g/50 mL PRN, milk of magnesia (CONC) Q6H PRN, potassium chloride PRN (Compliance Representative from Rx) OR potassium chloride SR PRN (Compliance Representative from Rx ), saliva, synthetic PRN, sodium chloride 0.9% irrigation bottle PRN Vital Signs: Last Filed Vital Signs: 24 Hour Range BP: 120/63 (05/06 440) Temp: 37.4 C (99.3 F) (05/06 440) Pulse: 88 (05/06 440) Respirations: 18 PER MINUTE (05/06 440) SpO2: 98 % (05/06 440) O2 Delivery: Nasal Cannula (05/06 440) BP: (120-146)/(46-80) Temp: [36.2 C (97.2 F)-37.7 C (99.8 F)] Pulse: [75-133] Respirations: [18 PER MINUTE] SpO2: [97 %-100 %] O2 Delivery: Nasal Cannula Intensity Pain Scale 0-10 (Pain 1): (not recorded) Vitals: 05/03/17 1500 05/03/17 1744 05/04/17 1143 Weight: (!) 162.4 kg (358 lb) (!) 148.8 kg (328 lb 1.9 oz) (!) 144.2 kg (318 lb ) Intake/Output Summary: (Last 24 hours) Intake/Output Summary (Last 24 hours) at 05/06/17 0633 Last data filed at 05/06/17 0442 Gross per 24 hour Intake 1819.58 ml Output 2950 ml Net -1130.42 ml Physical Exam: Performance Status (Karnofsky): 40% Disabled, requires special care and assistance General: awake & oriented, no acute distress, appears stated age, Morbidly obese HENT: normocephalic, atraumatic, non-icteric, clear conjunctivae, no adenopathy. Eyes: Conjunctuvae clear. PERRL, EOMs intact. CV: AFIB Lungs: clear to ausculation bilaterally, non-labored Abdomen: Obese abdomen, soft, non-tender, non-distended, normo-active bowel sounds. Has indwelling catheter Extremities: 2+ edema, Skin: Warm & dry. Skin color, turgor normal. No rahses or lesions Neuro: Non focal Psych: Normal mood and affect. Judgment and thought content normal. Lab Review: Results for orders placed or performed during the hospital encounter of (from the past 48 hour(s)) POC GLUCOSE Collection Time: 05/04/17 9:48 AM # # Low-High Glucose, POC 153 (H) 70 - 100 MG/DL POC GLUCOSE Collection Time: 05/04/17 12:15 PM # # Low-High Glucose, POC 160 (H) 70 - 100 MG/DL VRE SCREEN Collection Time: 05/04/17 4:30 PM # # Low-High Battery Name VRE SCREEN Specimen Description PERIRECTAL SWAB Special Requests NONE Culture NO VRE ISOLATED Report Status FINAL 05/05/2017 POC GLUCOSE Collection Time: 05/04/17 4:58 PM # # Low-High Glucose, POC 180 (H) 70 - 100 MG/DL BASIC METABOLIC PANEL Collection Time: 05/04/17 7:19 PM # # Low-High Sodium 142 137 - 147 MMOL/L Potassium 3.7 3.5 - 5.1 MMOL/L Chloride 106 98 - 110 MMOL/L CO2 31 (H) 21 - 30 MMOL/L Anion Gap 5 3 - 12 Glucose 179 (H) 70 - 100 MG/DL Blood Urea Nitrogen 33 (H) 7 - 25 MG/DL Creatinine 0.85 0.4 - 1.00 MG/DL Calcium 7.7 (L) 8.5 - 10.6 MG/DL eGFR Non >60 >60 mL/min eGFR >60 >60 mL/min POC GLUCOSE Collection Time: 05/04/17 8:56 PM # # Low-High Glucose, POC 175 (H) 70 - 100 MG/DL COMPREHENSIVE METABOLIC PANEL Collection Time: 05/05/17 4:35 AM # # Low-High Sodium 141 137 - 147 MMOL/L Potassium 4.3 3.5 - 5.1 MMOL/L Chloride 107 98 - 110 MMOL/L Glucose 153 (H) 70 - 100 MG/DL Blood Urea Nitrogen 29 (H) 7 - 25 MG/DL Creatinine 0.76 0.4 - 1.00 MG/DL Calcium 8.0 (L) 8.5 - 10.6 MG/DL Total Protein 5.0 (L) 6.0 - 8.0 G/DL Total Bilirubin 0.8 0.3 - 1.2 MG/DL Albumin 2.3 (L) 3.5 - 5.0 G/DL Alk Phosphatase 24 (L) 25 - 110 U/L AST (SGOT) 8 7 - 40 U/L CO2 32 (H) 21 - 30 MMOL/L ALT (SGPT) 11 7 - 56 U/L Anion Gap 2 (L) 3 - 12 eGFR Non >60 >60 mL/min eGFR >60 >60 mL/min MAGNESIUM Collection Time: 05/05/17 4:35 AM # # Low-High Magnesium 1.9 1.6 - 2.6 mg/dL CBC AND DIFF Collection Time: 05/05/17 4:35 AM # # Low-High White Blood Cells 0.4 (LL) 4.5 - 11.0 K/UL RBC 2.18 (L) 4.0 - 5.0 M/UL Hemoglobin 6.7 (L) 12.0 - 15.0 GM/DL Hematocrit 19.9 (L) 36 - 45 % MCV 91.5 80 - 100 FL MCH 30.8 26 - 34 PG MCHC 33.6 32.0 - 36.0 G/DL RDW 19.1 (H) 11 - 15 % Platelet Count 9 (LL) 150 - 400 K/UL MPV 9.6 7 - 11 FL PREPARE APHERESIS PLATELETS Collection Time: 05/05/17 5:32 AM # # Low-High Units Ordered 1 Unit Number [id number] Blood Component Type APHERESIS PLT,LEUKO REDUCED,IRRADIATED,2ND CONT. Unit Division 0 Status OF Unit TRANSFUSED Transfusion Status OK TO TRANSFUSE POC GLUCOSE Collection Time: 05/05/17 8:36 AM # # Low-High Glucose, POC 156 (H) 70 - 100 MG/DL POC GLUCOSE Collection Time: 05/05/17 11:41 AM # # Low-High Glucose, POC 132 (H) 70 - 100 MG/DL POC GLUCOSE Collection Time: 05/05/17 4:52 PM # # Low-High Glucose, POC 153 (H) 70 - 100 MG/DL POC GLUCOSE Collection Time: 05/05/17 8:42 PM # # Low-High Glucose, POC 159 (H) 70 - 100 MG/DL BASIC METABOLIC PANEL Collection Time: 05/05/17 10:11 PM # # Low-High Sodium 140 137 - 147 MMOL/L Potassium 4.0 3.5 - 5.1 MMOL/L Chloride 107 98 - 110 MMOL/L CO2 30 21 - 30 MMOL/L Anion Gap 3 3 - 12 Glucose 194 (H) 70 - 100 MG/DL Blood Urea Nitrogen 26 (H) 7 - 25 MG/DL Creatinine 0.74 0.4 - 1.00 MG/DL Calcium 7.8 (L) 8.5 - 10.6 MG/DL eGFR Non >60 >60 mL/min eGFR >60 >60 mL/min COMPREHENSIVE METABOLIC PANEL Collection Time: 05/06/17 4:45 AM # # Low-High Sodium 140 137 - 147 MMOL/L Potassium 4.7 3.5 - 5.1 MMOL/L Chloride 107 98 - 110 MMOL/L Glucose 133 (H) 70 - 100 MG/DL Blood Urea Nitrogen 24 7 - 25 MG/DL Creatinine 0.67 0.4 - 1.00 MG/DL Calcium 8.0 (L) 8.5 - 10.6 MG/DL Total Protein 5.1 (L) 6.0 - 8.0 G/DL Total Bilirubin 1.0 0.3 - 1.2 MG/DL Albumin 2.3 (L) 3.5 - 5.0 G/DL Alk Phosphatase 25 25 - 110 U/L AST (SGOT) 7 7 - 40 U/L CO2 31 (H) 21 - 30 MMOL/L ALT (SGPT) 6 (L) 7 - 56 U/L Anion Gap 2 (L) 3 - 12 eGFR Non >60 >60 mL/min eGFR >60 >60 mL/min MAGNESIUM Collection Time: 05/06/17 4:45 AM # # Low-High Magnesium 1.9 1.6 - 2.6 mg/dL CBC AND DIFF Collection Time: 05/06/17 4:45 AM # # Low-High White Blood Cells 0.4 (LL) 4.5 - 11.0 K/UL RBC 2.31 (L) 4.0 - 5.0 M/UL Hemoglobin 7.0 (L) 12.0 - 15.0 GM/DL Hematocrit 20.4 (L) 36 - 45 % MCV 88.7 80 - 100 FL MCH 30.5 26 - 34 PG MCHC 34.3 32.0 - 36.0 G/DL RDW 18.3 (H) 11 - 15 % Platelet Count 13 (LL) 150 - 400 K/UL MPV 9.0 7 - 11 FL Radiology Review: No pertinent radiology. Alisha Gregorio MD * Maritza Huddleston RN - 05/05/2017 6:22 PM CDT End of Shift Note NEWS score : 0800: 4 (supp O2, HR) 1200: 0 1500: 1 Nutrition: ADA diet, poor appetite. Activity:X2 with gait belt and walker to chair. Pt up to chair for 1 hours this afternoon, tolerated well. Pain: No complaints of pain this shift. PRN's available. GI/: Adequate urine output through shift. Last BM 05/05, still awaiting 4th stool to send for C-Diff testing Family: No family at bedside. Last shower and linen change: 05/05 Follow up: Pt received transfusions in am. * Ari Collazo MD - 05/05/2017 4:26 PM CDT Formatting of this note may be different from the original. Endocrinology progress note Today's Date: 05/05/2017 Admission Date: 04/24/2017 Reason for this consultation: Assessment: Type 2 diabetes mellitus: A1c unknown, ordered COUNTER TOP ASSEMBLER regimen: Glimepiride 4 mg daily Hypoglycemic episodes on this regimen: Unknown Follows up with for diabetes management: PCP Diabetic-complications assessment: Retinopathy: Last eye exam 2 years back, no retinopathy Peripheral neuropathy: Yes Autonomic neuropathy: No Nephropathy: Yes Macrovascular complications: No Risk factor assessment: Last lipid profile -none in chart On ACEi/ARB?:No On Statin?: No Recurrent hypoglycemia: Last dose of glimepiride 4 mg was on 04/23 in the morning, at home. Hypoglycemia is recurrent in spite of D5 normal saline drip. Recurrent UTI Acute leukemia A. fib CKD stage III Recommendations: - Hypoglycemia has resolved. - well- controlled DM - continue lantus 12 units daily - continue novolog 7 units with meals - continue [facility] - plan to restart glimepiride lower dose at discharge. We will continue to follow Patient was seen and discussed with Dr. Ledezma History of Present Illness Giselle Moraes is a 56 y.o. female with past medical history of A. fib, type 2 diabetes, CKD stage III, UTI, anxiety was admitted for suspicion for acute leukemia. Endocrinology was consulted for recurrent hypoglycemia. Patient is still very fatigued and tired Not eating much Denies nausea , vomitng , abdominal pain Estimated Creatinine Clearance: 120.5 mL/min (based on Cr of 0.76). 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 No pertinent family history. Allergies Allergies Allergen Reactions Ciprofloxacin SEE COMMENTS Per Nephrology doctors. Levofloxacin SEE COMMENTS Per nephrology doctors. Nsaids (Non-Steroidal Anti-Inflammatory Drug) SEE COMMENTS Per nephrology doctors. Bactrim [Sulfamethoxazole-Trimethoprim] SEE COMMENTS Per Nephrology Doctors. Contrast Dye Iv, Iodine Containing [Iodinated Contrast- Oral And Iv Dye] SEE COMMENTS Per nephrology doctors. Review of Systems A comprehensive 14-point review of systems was negative with exception of: Fatigue, feeling cold, shaky Medications Scheduled Meds: acyclovir (ZOVIRAX) tablet 800 mg 800 mg Oral BID atenolol (TENORMIN) tablet 25 mg 25 mg Oral QDAY cefepime (MAXIPIME) 2 g/100 ml iso-osmotic IVPB 2 g Intravenous Q12H* diltiazem CD (cardIZEM CD) capsule 240 mg 240 mg Oral QDAY insulin aspart (NOVOLOG FLEXPEN) injection PEN 0-14 Units 0-14 Units Subcutaneous ACHS insulin aspart (NOVOLOG FLEXPEN) injection PEN 7 Units 7 Units Subcutaneous TID w/ meals insulin glargine (LANTUS SOLOSTAR) injection PEN 12 Units 12 Units Subcutaneous QDAY(12) micafungin (MYCAMINE) 50 mg in sodium chloride 0.9% (NS) 105 mL IVPB 50 mg Intravenous Q24H* polyethylene glycol 3350 (MIRALAX) packet 17 g 1 packet Oral QDAY senna (SENOKOT) tablet 1 tablet 1 tablet Oral BID Continuous Infusions: sodium chloride 0.9 % infusion 75 mL/hr at 05/05/17 1502 PRN and Respiratory Meds:acetaminophen Q6H PRN, ALPRAZolam BID PRN, alteplase PRN (Compliance Representative from Rx), LORazepam Q6H PRN, LORazepam injection Q6H PRN, magnesium sulfate 4 g/50 mL PRN, milk of magnesia (CONC) Q6H PRN, potassium chloride PRN (Compliance Representative from Rx) OR potassium chloride SR PRN (Compliance Representative from Rx ), saliva, synthetic PRN, sodium chloride 0.9% irrigation bottle PRN Physical Examination Vital Signs: Last Vital Signs: 24 Hour Range BP: 128/72 (05/05 1607) Temp: 36.8 C (98.3 F) (05/05 160) Pulse: 93 (05/05 160) Respirations: 18 PER MINUTE (05/05 160) SpO2: 99 % (05/05 1607) O2 Delivery: None (Room Air) (05/05 1503) BP: (120-146)/(54-85) Temp: [36.2 C (97.2 F)-37.6 C (99.6 F)] Pulse: [75-133] Respirations: [18 PER MINUTE-20 PER MINUTE] SpO2: [97 %-100 %] O2 Delivery: None (Room Air) General appearance: alert, oriented, looking tired HENT: Dry oral mucosa, dried blood on lips Lungs: no wheezing, rhonchi, rales appreciated Heart: Regular rhythm, reg rate, with no murmur, rub, gallop Abdomen: soft, non-tender, non-distended, normoactive bowel sounds, Ext: No clubbing, cyanosis or edema Skin: no rashes/lesions Lab Review Point of Care Testing (Last 24 hours) Glucose: (!) 153 (05/05/17 0435) POC Glucose (Download): (!) 132 (05/05/17 1141) Recent Labs 05/03/17 0320 05/03/17 2013 05/04/17 0311 05/04/17 1919 05/05/17 0435 NA 141 142 143 142 141 K 3.9 3.9 4.0 3.7 4.3 CL 108 110 112* 106 107 CO2 29 26 27 31* 32* GAP 4 6 4 5 2* BUN 47* 44* 38* 33* 29* CR 1.02* 0.87 0.72 0.85 0.76 GLU 176* 188* 131* 179* 153* CA 7.6* 7.6* 7.8* 7.7* 8.0* ALBUMIN 2.4* -- 2.3* -- 2.3* MG 1.9 -- 2.0 -- 1.9 Recent Labs 05/03/17 0320 05/04/17 0311 05/05/17 0435 WBC 1.0* 0.6* 0.4* HGB 7.3* 6.5* 6.7* HCT 21.3* 19.2* 19.9* PLTCT 22* 13* 9* AST 16 10 8 ALT 16 12 11 ALKPHOS 26 24* 24* Estimated Creatinine Clearance: 120.5 mL/min (based on Cr of 0.76). Vitals: 05/03/17 1500 05/03/17 1744 05/04/17 1143 Weight: (!) 162.4 kg (358 lb) (!) 148.8 kg (328 lb 1.9 oz) (!) 144.2 kg (318 lb ) Thyroid Studies No results found for: TSH, FREET4, FREEINDEX No results found for: FREET3, [id number], THYBINDGLB Ari Collazo MD Endocrinology Fellow [id number] [phone] Associated attestation - Jh Ledezma MD - 05/06/2017 8:28 AM CDT Formatting of this note may be different from the original. ATTESTATION I personally performed the carrizales portions of the E/M visit, discussed case with resident and concur with resident documentation of history, physical exam, assessment, and treatment plan unless otherwise noted. Staff name: Jh Ledezma MD Date: 05/06/2017 * Veena Beck OT - 05/05/2017 2:09 PM CDT OCCUPATIONAL THERAPY PROGRESS NOTE Admitting Diagnosis: AML Leukocytosis Patient seen x1 this date. Documentation reflects all daily treatment sessions. Mobility Progressive Mobility Level: Stand Level of Assistance: Assist X1 Assistive Device: Walker Time Tolerated: 0-10 minutes Activity Limited By: Fatigue Subjective Pertinent Dx per Physician: 56 year old female with new diagnosis of AML. Patient admitted for start of chemotherapy. Patient is obese with bariatric bed in place. Precautions: Falls;Isolation (contact plus) Objective Psychosocial Status: Willing and Cooperative to Participate Persons Present: None Home Living Type of Home: House Home Layout: One Level;Stairs to Enter w/ Rails Bathroom Shower / Tub: Walk-in Shower Bathroom Toilet: Standard Bathroom Equipment: Built-in Seat in Shower;Shower Chair;Commode;Grab Bars in Shower Bathroom Accessibility: Accessible via Walker Home Equipment: Walker;Commode;Grab Bars;Shower/Tub Bench Prior Function Level Of [place]: Needed assistance with ADLs;Needed assistance with homemaking;Independent with ADLs and functional transfers Lives With: Spouse Receives Help From: Spouse Homemaking Tasks: Meal Prep;Laundry;Cleaning;Driving Homemaking Assist: Total Assist ADL's Where Assessed: Chair Grooming Assist: Stand By Assist Grooming Deficits: Setup;Wash/Dry Face;Teeth Care Comment: Pt upright in chair upon OT arrival. Pt agreeable to completing chair level ADLs. Pt demonstrated adequate B UE AROM and strength to complete chair level ADLs. R hand numbness noted in complete teeth care - pt kept tooth brush in R hand and toothpaste in L hand numbness < R. This technique worked well for pt to participate in fine motor tasks despite numbness. Pt reporting discomfort in catheter and requesting to stand to adjust. Pt able to sit<>stand x2 attempts with contact guard assist. Pt upright in chair at end of session with all needs within reach and chair alarm set. Activity Tolerance Endurance: 1/5 Tolerates <10 Minutes Exercises, No Significant Change in Vital Signs Sitting Balance: 3/5 Sits w/o UE Support Up to 30 Seconds Cognition Overall Cognitive Status: WFL to Adequately Complete Self Care Tasks Safely Orientation: Alert & Oriented x3 Attention: Awake/Alert Education Persons Educated: Patient Teaching Methods: Verbal Instruction Patient Response: Verbalized and Demo Understanding Topics: Role of OT, Goals for Therapy Goal Formulation: With Patient Assessment Assessment: Decreased ADL Status;Decreased Endurance;Decreased Self-Care Trans; Decreased High-Level ADLs;Decreased Sensation Goal Formulation: Patient AM-PAC 6 Clicks Daily Activity Inpatient Putting on and taking off regular lower body clothes?: Total Bathing (Including washing, rinsing, drying): A Lot Toileting, which includes using toilet, bedpan, or urinal: Total Putting on and taking off regular upper body clothing: A Lot Taking care of personal grooming such as brushing teeth: None Eating meals?: None Daily Activity Raw Score: 14 Standardized (t-scale) score: 33.39 CMS 0-100% Score: 59.67 CMS G Code Modifier: CK Plan Treatment Interventions: ADL Retraining;Functional Transfer Training;Endurance Training;Equipment Evaluation/Education;Fine Motor Coordination Activities; Compensatory Technique Education OT Frequency: 5x/week Plan for next visit: fine motor coordination activities, attempt edge of bed activity Further Evaluation Goals Pt Will Tolerate Further ADL Evaluation: w/in1-2 sessions ADL Goals Patient Will Perform Grooming: w/ Stand By Assist Patient Will Perform LE Dressing: At Edge of Bed, Standing at Edge of Bed, w/ Minimum Assist Functional Transfer Goals Pt Will Perform All Functional Transfers: w/ Stand By Assist Arm Goals Pt Will Perform AROM: B UE, 2 Sets, 10 Reps, w/ Good Activity Tolerance Discharge Recommendations: an inpatient setting Equipment Recommendations: Too early to be determined Therapist: Veena Beck, OTR/L [id number] Date: 05/05/2017 * Arnold Sparks, PT - 05/05/2017 11:07 AM CDT PHYSICAL THERAPY PROGRESS NOTE MOBILITY: Mobility Progressive Mobility Level: Active transfer to chair Level of Assistance: Assist X2 Assistive Device: Walker Time Tolerated: 11-30 minutes Activity Limited By: Dizziness;Fatigue SUBJECTIVE: Subjective Significant hospital events: Patient is a 56 year old female with new diagnosis of AML. Patient admitted for start of chemotherapy. Patient is obese with bariatric bed in place. Mental / Cognitive Status: Alert;Oriented;Uncooperative Persons Present: [employer] Teacher Pain: Patient has no complaint of pain Pain Interventions: Patient agrees to participate in therapy Comments: Patient resting in bed, all slumped down in the bed. Patient states she has been running a low fever this morning and doesn't believe she can get out of bed. At one point, patient very upset with this therapist for encouraging her to get out of bed but with further conversation, patient eventually agrees to get out of bed and up to the chair for toast and her morning medications. Ambulation Assist: Independent Mobility in Community with Device Patient Owned Equipment: Roller Walker Home Situation: Lives with Family Type of Home: House Entry Stairs: 3-5 Stairs;Rail on Both Sides In-Home Stairs: Able to Live on One Level BED MOBILITY/TRANSFERS: Bed Mobility/Transfers Bed Mobility: Supine to Sit: Minimal Assist;Assist with R LE Transfer Type: Sit to Stand Transfer: Assistance Level: From;Bed;Minimal Assist Transfer: Assistive Device: Roller Walker Transfers: Type Of Assistance: Verbal Cues;For Safety Considerations End Of Activity Status: Up in Chair;Nursing Notified;Instructed Patient to Use Call Light Comments: [employer]inder[employer] Teacher close by and may assist slightly but patient does have adequate strength for mobility. X2 assist for safety, line assist and chair follow for ambulation. GAIT: Gait Comments: Patient in theory could ambulate to the door but is afraid to be pushed to this level currently. Patient also very tachy when she mobilizes and states her "A-fib" is acting up. EDUCATION: Education Persons Educated: Patient Patient Barriers To Learning: None Noted Teaching Methods: Verbal Instruction Patient Response: Verbalized Understanding Topics: Mobility Progression ASSESSMENT/PROGRESS: Assessment/Progress Impaired Mobility Due To: Decreased Strength;Decreased Activity Tolerance; Medical Status Limitation Assessment/Progress: Should Improve w/ Continued PT;Expect Slow Progress Comments: Patient continues to have adequate strength to mobilize but lacks internal motivation or desire at times to participate. Patient is emotionally struggling with the entire hospital experience and may benefit from oncpsych if not already following. Patient is going to continue to benefit from acute therapy to regain function and maintain strength. AM-PAC 6 Clicks Basic Mobility Inpatient Turning from your back to your side while in a flat bed without using bed rails : A Little Moving from lying on your back to sitting on the side of a flatbed without using bedrails : A Little Moving to and from a bed to a chair (including a wheelchair): A Little Standing up from a chair using your arms (e.g. wheelchair, or bedside chair): A Little To walk in hospital room: A Little Climbing 3-5 steps with a railing: A Lot Raw Score: 17 Standardized (T-scale) Score: 39.67 Basic Mobility CMS 0-100%: 43.83 CMS G Code Modifier for Basic Mobility: CK GOALS: Goals Goal Formulation: With Patient Time For Goal Achievement: 7 days Pt Will Go Supine To/From Sit: w/ Minimal Assist Pt Will Transfer Bed/Chair: w/ Minimal Assist Pt Will Transfer Sit to Stand: w/ Minimal Assist Pt Will Ambulate: 11-30 Feet, w/ Walker, w/ Minimal Assist PLAN: Plan Treatment Interventions: Mobility Training;Strengthening;Balance Activities; Coordination Training;Endurance Training Plan Frequency: 5 Days per Week Comments: If patient will allow, work on ambulation with chair follow, general strengthening exercise.and sit to stand exercises for functional strength. RECOMMENDATIONS: PT Discharge Recommendations PT Discharge Recommendations: Inpatient Setting;to address deficits, maximize function and improve safety Equipment Recommendations: Patient owns necessary equipment Therapist: Arnold Sparks DPT Date: 05/05/2017 * Maritza Huddleston RN - 05/05/2017 9:18 AM CDT Formatting of this note may be different from the original. 05/05/17 0639 05/05/17 0755 05/05/17 0815 Vitals Temp 36.2 C (97.2 F) 37.6 C (99.6 F) (informed Maritza HOOKS immediately) 37.3 C (99.1 F) Temperature Source Oral Oral Oral 05/05/17 0900 Vitals Temp 37.4 C (99.3 F) (took 2x) Temperature Source Oral Blood infusing, Team aware. No other symptoms noted, OK to process with blood. Will continue to monitor. * Honorio Cooper, NEVA - 05/05/2017 6:51 AM CDT Shift: 1900 - 0730 NEWS Score: 3, 3, 3 (HR, supp. O2) Pain: no complaints Nutrition: ADA diet; poor appetite GI/: adequate urine output via Gonzalez; last BM 05/05. in c-diff r/o. will send next loose stool. Activity: max assist; getting up w/ PT Family: none present this shift Last Shower: bed bath 05/04 New Events or Follow-up: receiving RBCs (Hgb 6.7), Platelets (9), and Mg (1.9) today * Alisha Gregorio MD - 05/05/2017 6:42 AM CDT Formatting of this note may be different from the original. 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 Cardiology consulted. - Monitor TLS labs and DIC labs daily - Start 7+3 04/28/2017, FLT3 ITD positive, will submit to add midostaurin - D8 of 7+3 Heme: - Anemia and thrombocytopenia due to underlying AML. PRBC and platelet today - Previously on anticoagulation with apixaban for Atrial fibrillation, will hold for now with thrombocytopenia - Anticoagulation with lovenox for DVT ppx contraindicated due to thrombocytopenia, SCD's when on bed FEN/Renal: - Creatinine improved. - Appreciate renal recommendations - Discontinue allopurinol-05/05/17 - Monitor electrolytes, will be high goal replacement with h/o atrial fibrillation. - Close monitoring of fluid status - Will need Lasix daily until weight improves, ID: - Presents with UTI and fever - Urine cx from [facility] 04/23: + E.Coli resistant to ampicillin, Bactrim, Nitrofurantoin. Intermediate resistance to gent and Unasyn. Susceptible to ceftriaxone, zosyn, meropenem, cipro and aztreonam - Blood cx x [address] [facility] 04/23: NGTD - Cefepime continues, had vancomycin and daptomycin on 04/24-04/25, discontinued, restart vanco if febrile. Needs to complete at least a 14 day course of cefepime for complicated UTI. Will plan to continue until neutropenia resolves - Has urinary catheter in place, did have urinary retention after trying to remove, will try again in one week after finishing antibiotics. Lots of sediment in urine and chronic UTI. - On prophylaxis with micafungin and acyclovir C.diff pending GI: - No nausea, vomiting. Had multiple BM 05/03/17. Last two liquid. Patient felt better after BM. C.diff pending - Low albumin. Liver functions normal - Obese, BMT>40 - Standing weights not possible due to patient factors Endo: - Has type II DM, on glimiperide has been discontinued on admission - Had persistent low blood sugars, now blood sugars better - Endocrinology consultation obtained and appreciate recommendations; On lantus 12 units, 7 units Novolog with meals and [facility] CVS: - H/o atrial fibrillation, rate controlled. 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 Atenolol held 05/02/17 night due to 2 sec pause. - Mild moderate - Will hold apixaban atenolol and continue diltiazem - Cardiology opinion appreciated, 2d Echo- normal EF 60%. Psych/Social: Pleasant, no issues - On alprazolam for anxiety, currently continued at low dose - Lives in [facility], , currently on disability, son lives in [facility] - Need to schedule family meeting to discuss future treatment course, had first discussion with and family friend on 04/28. PT/OT: Mobility is a big issue. She is three person transfer. Subjective: Giselle Moraes is a 56 y.o. female. Tolerated chemo very well. Feeling tired today. Some nausea. Not moving much. Had multiple BMs. Feels more swelling. Review of Systems: Constitutional: + fatigue, anorexia, appetite change, HEENT: Negative. No ear/ nose problems. Bleeding of lips due to dryness. No gum bleeding Respiratory: +cough, sputum, mild SOB Cardiovascular: Negative for chest pain, chest pressure, palpitations, 2+ edema in extremeties Gastrointestional: diarrhea intermittent. No abdominal pain/ nausea or vomiting , felt bloated but better after BM Gernitourinary: +dysuria, no hematuria, has Gonzalez in place Musculoskeletal: cannot walk or get up without assistance, severe neuropathy and right knee pain since surgery Skin: Negative Psych: + anxiety Objective: Medications: Scheduled Meds: acyclovir (ZOVIRAX) tablet 400 mg 400 mg Oral BID cefepime (MAXIPIME) 2 g/100 ml iso-osmotic IVPB 2 g Intravenous Q12H* cytarabine (CYTOSAR) 520 mg in sodium chloride 0.9% (NS) 1,000 mL IVPB(C100) 200 mg/m2 (Treatment Plan Recorded) Intravenous ONCE diltiazem CD (cardIZEM CD) capsule 240 mg 240 mg Oral QDAY insulin aspart (NOVOLOG FLEXPEN) injection PEN 0-14 Units 0-14 Units Subcutaneous ACHS insulin aspart (NOVOLOG FLEXPEN) injection PEN 7 Units 7 Units Subcutaneous TID w/ meals insulin glargine (LANTUS SOLOSTAR) injection PEN 12 Units 12 Units Subcutaneous QDAY(12) micafungin (MYCAMINE) 50 mg in sodium chloride 0.9% (NS) 105 mL IVPB 50 mg Intravenous Q24H* ondansetron (ZOFRAN) tablet 16 mg 16 mg Oral Q24H* polyethylene glycol 3350 (MIRALAX) packet 17 g 1 packet Oral QDAY senna (SENOKOT) tablet 1 tablet 1 tablet Oral BID Continuous Infusions: sodium chloride 0.9 % infusion 75 mL/hr at 05/04/17 1426 PRN and Respiratory Meds:acetaminophen Q6H PRN, ALPRAZolam BID PRN, alteplase PRN (Compliance Representative from Rx), LORazepam Q6H PRN, LORazepam injection Q6H PRN, magnesium sulfate 4 g/50 mL PRN, milk of magnesia (CONC) Q6H PRN, potassium chloride PRN (Compliance Representative from Rx) OR potassium chloride SR PRN (Compliance Representative from Rx ), saliva, synthetic PRN, sodium chloride 0.9% irrigation bottle PRN Vital Signs: Last Filed Vital Signs: 24 Hour Range BP: 136/63 (05/05 639) Temp: 36.2 C (97.2 F) (05/05 639) Pulse: 111 (05/05 607) Respirations: 18 PER MINUTE (05/05 639) SpO2: 99 % (05/05 639) O2 Delivery: Nasal Cannula (05/05 639) BP: (123-144)/(52-85) Temp: [36.2 C (97.2 F)-37.3 C (99.2 F)] Pulse: [82-111] Respirations: [18 PER MINUTE-20 PER MINUTE] SpO2: [99 %-100 %] O2 Delivery: Nasal Cannula Intensity Pain Scale 0-10 (Pain 1): (not recorded) Vitals: 05/03/17 1500 05/03/17 1744 05/04/17 1143 Weight: (!) 162.4 kg (358 lb) (!) 148.8 kg (328 lb 1.9 oz) (!) 144.2 kg (318 lb ) Intake/Output Summary: (Last 24 hours) Intake/Output Summary (Last 24 hours) at 05/05/17 0642 Last data filed at 05/05/17 0625 Gross per 24 hour Intake 3499 ml Output 8925 ml Net -5426 ml Physical Exam: Performance Status (Karnofsky): 40% Disabled, requires special care and assistance General: awake & oriented, no acute distress, appears stated age, Morbidly obese HENT: normocephalic, atraumatic, non-icteric, clear conjunctivae, no adenopathy. Eyes: Conjunctuvae clear. PERRL, EOMs intact. CV: AFIB Lungs: clear to ausculation bilaterally, non-labored Abdomen: Obese abdomen, soft, non-tender, non-distended, normo-active bowel sounds. Has indwelling catheter Extremities: 2+ edema, Skin: Warm & dry. Skin color, turgor normal. No rahses or lesions Neuro: Non focal Psych: Normal mood and affect. Judgment and thought content normal. Lab Review: Results for orders placed or performed during the hospital encounter of (from the past 48 hour(s)) POC GLUCOSE Collection Time: 05/03/17 9:39 AM # # Low-High Glucose, POC 183 (H) 70 - 100 MG/DL BNP (B-TYPE NATRIURETIC PEPTI) Collection Time: 05/03/17 12:45 PM # # Low-High B Type Natriuretic Peptide 139.0 (H) 0 - 100 PG/ML POC GLUCOSE Collection Time: 05/03/17 6:40 PM # # Low-High Glucose, POC 225 (H) 70 - 100 MG/DL BASIC METABOLIC PANEL Collection Time: 05/03/17 8:13 PM # # Low-High Sodium 142 137 - 147 MMOL/L Potassium 3.9 3.5 - 5.1 MMOL/L Chloride 110 98 - 110 MMOL/L CO2 26 21 - 30 MMOL/L Anion Gap 6 3 - 12 Glucose 188 (H) 70 - 100 MG/DL Blood Urea Nitrogen 44 (H) 7 - 25 MG/DL Creatinine 0.87 0.4 - 1.00 MG/DL Calcium 7.6 (L) 8.5 - 10.6 MG/DL eGFR Non >60 >60 mL/min eGFR >60 >60 mL/min POC GLUCOSE Collection Time: 05/03/17 9:00 PM # # Low-High Glucose, POC 161 (H) 70 - 100 MG/DL POC GLUCOSE Collection Time: 05/04/17 3:07 AM # # Low-High Glucose, POC 131 (H) 70 - 100 MG/DL COMPREHENSIVE METABOLIC PANEL Collection Time: 05/04/17 3:11 AM # # Low-High Sodium 143 137 - 147 MMOL/L Potassium 4.0 3.5 - 5.1 MMOL/L Chloride 112 (H) 98 - 110 MMOL/L Glucose 131 (H) 70 - 100 MG/DL Blood Urea Nitrogen 38 (H) 7 - 25 MG/DL Creatinine 0.72 0.4 - 1.00 MG/DL Calcium 7.8 (L) 8.5 - 10.6 MG/DL Total Protein 4.7 (L) 6.0 - 8.0 G/DL Total Bilirubin 0.7 0.3 - 1.2 MG/DL Albumin 2.3 (L) 3.5 - 5.0 G/DL Alk Phosphatase 24 (L) 25 - 110 U/L AST (SGOT) 10 7 - 40 U/L CO2 27 21 - 30 MMOL/L ALT (SGPT) 12 7 - 56 U/L Anion Gap 4 3 - 12 eGFR Non >60 >60 mL/min eGFR >60 >60 mL/min MAGNESIUM Collection Time: 05/04/17 3:11 AM # # Low-High Magnesium 2.0 1.6 - 2.6 mg/dL CBC AND DIFF Collection Time: 05/04/17 3:11 AM # # Low-High White Blood Cells 0.6 (LL) 4.5 - 11.0 K/UL RBC 2.08 (L) 4.0 - 5.0 M/UL Hemoglobin 6.5 (L) 12.0 - 15.0 GM/DL Hematocrit 19.2 (L) 36 - 45 % MCV 92.5 80 - 100 FL MCH 31.5 26 - 34 PG MCHC 34.1 32.0 - 36.0 G/DL RDW 19.2 (H) 11 - 15 % Platelet Count 13 (LL) 150 - 400 K/UL MPV 9.0 7 - 11 FL Segmented Neutrophils 42 41 - 77 % Bands 1 0 - 10 % Lymphocytes 50 (H) 24 - 44 % Monocytes 5 4 - 12 % Blast 2 % ANISO PRESENT Ovalocyte PRESENT Platelet Estimate MKD DEC Absolute Neutrophil Count Manual 0.26 (L) 1.8 - 7.0 K/UL TYPE & CROSSMATCH Collection Time: 05/04/17 3:50 AM # # Low-High Units Ordered 2 Crossmatch Expires 05/07/2017 Record Check FOUND ABO/RH(D) A POS Antibody Screen NEG Electronic Crossmatch YES Unit Number [id number] Blood Component Type RBC,ADSOL,LEUKO REDUCED,IRRADIATED Unit Division 0 Status OF Unit TRANSFUSED Transfusion Status OK TO TRANSFUSE Crossmatch Result COMPATIBLE,ELECTRONIC Unit Number [id number] Blood Component Type RBC,ADSOL,LEUKO REDUCED,IRRADIATED Unit Division 0 Status OF Unit ISSUED Transfusion Status OK TO TRANSFUSE Crossmatch Result COMPATIBLE,ELECTRONIC POC GLUCOSE Collection Time: 05/04/17 9:48 AM # # Low-High Glucose, POC 153 (H) 70 - 100 MG/DL POC GLUCOSE Collection Time: 05/04/17 12:15 PM # # Low-High Glucose, POC 160 (H) 70 - 100 MG/DL POC GLUCOSE Collection Time: 05/04/17 4:58 PM # # Low-High Glucose, POC 180 (H) 70 - 100 MG/DL BASIC METABOLIC PANEL Collection Time: 05/04/17 7:19 PM # # Low-High Sodium 142 137 - 147 MMOL/L Potassium 3.7 3.5 - 5.1 MMOL/L Chloride 106 98 - 110 MMOL/L CO2 31 (H) 21 - 30 MMOL/L Anion Gap 5 3 - 12 Glucose 179 (H) 70 - 100 MG/DL Blood Urea Nitrogen 33 (H) 7 - 25 MG/DL Creatinine 0.85 0.4 - 1.00 MG/DL Calcium 7.7 (L) 8.5 - 10.6 MG/DL eGFR Non >60 >60 mL/min eGFR >60 >60 mL/min POC GLUCOSE Collection Time: 05/04/17 8:56 PM # # Low-High Glucose, POC 175 (H) 70 - 100 MG/DL COMPREHENSIVE METABOLIC PANEL Collection Time: 05/05/17 4:35 AM # # Low-High Sodium 141 137 - 147 MMOL/L Potassium 4.3 3.5 - 5.1 MMOL/L Chloride 107 98 - 110 MMOL/L Glucose 153 (H) 70 - 100 MG/DL Blood Urea Nitrogen 29 (H) 7 - 25 MG/DL Creatinine 0.76 0.4 - 1.00 MG/DL Calcium 8.0 (L) 8.5 - 10.6 MG/DL Total Protein 5.0 (L) 6.0 - 8.0 G/DL Total Bilirubin 0.8 0.3 - 1.2 MG/DL Albumin 2.3 (L) 3.5 - 5.0 G/DL Alk Phosphatase 24 (L) 25 - 110 U/L AST (SGOT) 8 7 - 40 U/L CO2 32 (H) 21 - 30 MMOL/L ALT (SGPT) 11 7 - 56 U/L Anion Gap 2 (L) 3 - 12 eGFR Non >60 >60 mL/min eGFR >60 >60 mL/min MAGNESIUM Collection Time: 05/05/17 4:35 AM # # Low-High Magnesium 1.9 1.6 - 2.6 mg/dL CBC AND DIFF Collection Time: 05/05/17 4:35 AM # # Low-High White Blood Cells 0.4 (LL) 4.5 - 11.0 K/UL RBC 2.18 (L) 4.0 - 5.0 M/UL Hemoglobin 6.7 (L) 12.0 - 15.0 GM/DL Hematocrit 19.9 (L) 36 - 45 % MCV 91.5 80 - 100 FL MCH 30.8 26 - 34 PG MCHC 33.6 32.0 - 36.0 G/DL RDW 19.1 (H) 11 - 15 % Platelet Count 9 (LL) 150 - 400 K/UL MPV 9.6 7 - 11 FL PREPARE APHERESIS PLATELETS Collection Time: 05/05/17 5:32 AM # # Low-High Units Ordered 1 Unit Number [id number] Blood Component Type APHERESIS PLT,LEUKO REDUCED,IRRADIATED,2ND CONT. Unit Division 0 Status OF Unit ALLOCATED Transfusion Status OK TO TRANSFUSE Radiology Review: No pertinent radiology. Alisha Gregorio MD * Aureliano Shanks RN - 05/04/2017 6:22 PM CDT Shift: [id number] NEWS Score:3-4-3 (3 d/t NC) Pain: None noted Nutrition: Skipped breakfast/ lunch. Ate a sandwich for dinner. GI/: LBM: 05/04. Incontinent x 2.Watery, loose x1. Cdiff R/o started. Voids via gonzalez. Clear light yellow urine. Lasix given. Activity: HFall. Max assist x3. Family: Brother, Rito, at bedside. Last Shower: bed bath, 05/04 New Events or Follow-up: attempted to place YAMIL hose but stockings wouldn't go on pt's legs. Will try tomorrow after swelling has subsided. * Veena Beck, ABEL - 05/04/2017 4:34 PM CDT Formatting of this note may be different from the original. 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 Patient admitted for start of chemotherapy. Patient is obese with bariatric bed in place. Precautions: Falls Pain / Complaints: Patient agrees to participate in therapy (bed level) Comments: Pt reports "I'm not moving anywhere this afternoon. I had a few issues this morning." Pt agreeable to participate in edge of bed activity tomorrow and potential transfer to chair. Objective Psychosocial Status: Willing and Cooperative to Participate Persons Present: None Home Living Type of Home: House Home Layout: One Level;Stairs to Enter w/ Rails (3 steps to enter) Bathroom Shower / Tub: Walk-in Shower Bathroom Toilet: Standard Bathroom Equipment: Built-in Seat in Shower;Shower Chair;Commode;Grab Bars in Shower Bathroom Accessibility: Accessible via Walker Home Equipment: Walker;Commode;Grab Bars;Shower/Tub Bench Prior Function Level Of [place]: Needed assistance with ADLs;Needed assistance with homemaking;Independent with ADLs and functional transfers (only assist with shower transfer) Lives With: Spouse Receives Help From: Spouse Homemaking Tasks: Meal Prep;Laundry;Cleaning;Driving Homemaking Assist: Total Assist Vision Current Vision: Wears Glasses All of the Time Comment: Pt reports blurriness upon completing chemo as well as "blue and yellow flashes." ADL's Where Assessed: Supine, Bed Grooming Assist: Stand By Assist Grooming Deficits: Setup;Wash/Dry Hands;Wash/Dry Face Comment: Pt supine throughout evaluation. Pt with all needs within reach and respiratory equipment assistant in room at end of session. Activity Tolerance Endurance: 1/5 Tolerates <10 Minutes Exercises, No Significant Change in Vital Signs Sitting Balance: (not assessed this date) Cognition Overall Cognitive Status: WFL to Adequately Complete Self Care Tasks Safely Orientation: Alert & Oriented x3 Attention: Awake/Alert UE AROM Overall BUE AROM WNL: Yes Coordination: Serial Opposition WNL for Rate, Rhythm, Placement Grasp: Bilateral Grasp Functional for Activity Sensory Overall Sensory: (decreased sensation in bilateral hands (neuropathy)) UE Strength / Tone Overall Strength / Tone: WFL Able to Perform ADL Tasks;Right;Left;4+/5 Education Persons Educated: Patient Teaching Methods: Verbal Instruction Patient Response: Verbalized and Demo Understanding Topics: Role of OT, Goals for Therapy;Home safety Goal Formulation: With Patient Assessment Assessment: Decreased ADL Status;Decreased Endurance;Decreased Self-Care Trans; Decreased High-Level ADLs;Decreased Sensation Goal Formulation: Patient AM-PAC 6 Clicks Daily Activity Inpatient Putting on and taking off regular lower body clothes?: Total Bathing (Including washing, rinsing, drying): A Lot Toileting, which includes using toilet, bedpan, or urinal: Total Putting on and taking off regular upper body clothing: A Lot Taking care of personal grooming such as brushing teeth: None Eating meals?: None Daily Activity Raw Score: 14 Standardized (t-scale) score: 33.39 CMS 0-100% Score: 59.67 CMS G Code Modifier: CK Plan Treatment Interventions: ADL Retraining;Functional Transfer Training;Endurance Training;Patient/Family Training;Equipment Evaluation/Education;Compensatory Technique Education OT Frequency: 5x/week Plan for next visit: further ADL evaluation, edge of bed activity Further Evaluation Goals Pt Will Tolerate Further ADL Evaluation: w/in1-2 sessions ADL Goals Patient Will Perform Grooming: w/ Stand By Assist Patient Will Perform LE Dressing: At Edge of Bed, Standing at Edge of Bed, w/ Minimum Assist Functional Transfer Goals Pt Will Perform All Functional Transfers: w/ Stand By Assist Arm Goals Pt Will Perform AROM: B UE, 2 Sets, 10 Reps, w/ Good Activity Tolerance Vision Goals Comment: Pt reports blurriness upon completing chemo as well as "blue and yellow flashes." OT Discharge Recommendations OT Discharge Recommendations: Inpatient Setting, To address deficits, maximize function and improve safety. Equipment Recommendations: Too early to be determined G-Codes: Self-care G8987 Current Status: 40-59% Impairment G8988 Goal Status: 20-39% Impairment Based on above evaluation and clinical judgment. Therapist: Veena Beck, ABELR/Cl[place] [id number] Date: 05/04/2017 * Aureliano Shanks RN - 05/04/2017 3:13 PM CDT CHEMO NOTE Verified chemo consent signed and in chart. Verified initiate chemo order in O2 Blood return positive via: Right chest PICC; mckeon lumen Premedications/Prehydration given as ordered. BSA and dose double checked (agree with orders as written) with: Jaylin Orantes RN Arm band verified at bedside with second RN (same RN as above unless otherwise noted). Labs/applicable tests checked: Yes- OK to proceed Chemo drug/dose/route: cytarabine (CYTOSAR) 520 mg in sodium chloride 0.9% (NS) 1,000 mL IVPB(C100) : Dose 200 mg/m2 2.6 m2 (Treatment Plan Recorded) : Admin Dose 520 mg : 41.7 mL/hr : Intravenous : ONCE Rate verified with second RN (same RN as above unless otherwise noted). Patient education offered and stated understanding * Ari Collazo MD - 05/04/2017 12:48 PM CDT Formatting of this note may be different from the original. 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 Hypoglycemia is recurrent in spite of D5 normal saline drip. Recurrent UTI Acute leukemia A. fib CKD stage III Recommendations: - Hypoglycemia has resolved. - well- controlled DM due to poor oral intake - continue lantus 12 units daily - continue novolog 7 units with meals - continue MDCF - plan to restart glimepiride lower dose at discharge. we will continue to follow. Patient was seen and discussed with Dr. Ledezma History of Present Illness Giselle Moraes is a 56 y.o. female with past medical history of A. fib, type 2 diabetes, CKD stage III, UTI, anxiety was admitted for suspicion for acute leukemia. Endocrinology was consulted for recurrent hypoglycemia. Patient is still very fatigued and tired Not eating much Denies nausea , vomitng , abdominal pain Estimated Creatinine Clearance: 127.2 mL/min (based on Cr of 0.72). 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 No pertinent family history. Allergies Allergies Allergen Reactions Ciprofloxacin SEE COMMENTS Per Nephrology doctors. Levofloxacin SEE COMMENTS Per nephrology doctors. Nsaids (Non-Steroidal Anti-Inflammatory Drug) SEE COMMENTS Per nephrology doctors. Bactrim [Sulfamethoxazole-Trimethoprim] SEE COMMENTS Per Nephrology Doctors. Contrast Dye Iv, Iodine Containing [Iodinated Contrast- Oral And Iv Dye] SEE COMMENTS Per nephrology doctors. Review of Systems A comprehensive 14-point review of systems was negative with exception of: Fatigue, feeling cold, shaky Medications Scheduled Meds: acyclovir (ZOVIRAX) tablet 400 mg 400 mg Oral BID allopurinol (ZYLOPRIM) tablet 300 mg 300 mg Oral QDAY cefepime (MAXIPIME) 2 g/100 ml iso-osmotic IVPB 2 g Intravenous Q12H* cytarabine (CYTOSAR) 520 mg in sodium chloride 0.9% (NS) 1,000 mL IVPB(C100) 200 mg/m2 (Treatment Plan Recorded) Intravenous ONCE cytarabine (CYTOSAR) 520 mg in sodium chloride 0.9% (NS) 1,000 mL IVPB(C100) 200 mg/m2 (Treatment Plan Recorded) Intravenous ONCE diltiazem CD (cardIZEM CD) capsule 240 mg 240 mg Oral QDAY insulin aspart (NOVOLOG FLEXPEN) injection PEN 0-14 Units 0-14 Units Subcutaneous ACHS insulin aspart (NOVOLOG FLEXPEN) injection PEN 7 Units 7 Units Subcutaneous TID w/ meals insulin glargine (LANTUS SOLOSTAR) injection PEN 12 Units 12 Units Subcutaneous QDAY(12) micafungin (MYCAMINE) 50 mg in sodium chloride 0.9% (NS) 105 mL IVPB 50 mg Intravenous Q24H* ondansetron (ZOFRAN) tablet 16 mg 16 mg Oral Q24H* polyethylene glycol 3350 (MIRALAX) packet 17 g 1 packet Oral QDAY senna (SENOKOT) tablet 1 tablet 1 tablet Oral BID SODIUM CHLORIDE 0.9 % IV SOLP (Cabinet Override) NOW Continuous Infusions: sodium chloride 0.9 % infusion 75 mL/hr at 05/03/17 2316 PRN and Respiratory Meds:acetaminophen Q6H PRN, ALPRAZolam BID PRN, alteplase PRN (Compliance Representative from Rx), LORazepam Q6H PRN, LORazepam injection Q6H PRN, magnesium sulfate 4 g/50 mL PRN, milk of magnesia (CONC) Q6H PRN, potassium chloride PRN (Compliance Representative from Rx) OR potassium chloride SR PRN (Compliance Representative from Rx ), saliva, synthetic PRN, sodium chloride 0.9% irrigation bottle PRN Physical Examination Vital Signs: Last Vital Signs: 24 Hour Range BP: 126/62 (05/04 0750) Temp: 36.2 C (97.2 F) (05/04 0750) Pulse: 82 (05/04 0750) Respirations: 18 PER MINUTE (05/04 0750) SpO2: 100 % (05/04 0750) O2 Delivery: Nasal Cannula (05/04 1000) BP: (114-138)/(52-63) Temp: [36.2 C (97.2 F)-36.9 C (98.5 F)] Pulse: [68-94] Respirations: [14 PER MINUTE-18 PER MINUTE] SpO2: [92 %-100 %] O2 Delivery: Nasal Cannula General appearance: alert, oriented, looking tired HENT: Dry oral mucosa, dried blood on lips Lungs: no wheezing, rhonchi, rales appreciated Heart: Regular rhythm, reg rate, with no murmur, rub, gallop Abdomen: soft, non-tender, non-distended, normoactive bowel sounds, Ext: No clubbing, cyanosis or edema Skin: no rashes/lesions Lab Review Point of Care Testing (Last 24 hours) Glucose: (!) 131 (05/04/17 0311) POC Glucose (Download): (!) 160 (05/04/17 1215) Recent Labs 05/01/17201405/02/1742405/03/1731905/03/17201205/04/17310 NA 138 140 141 142 143 K 3.8 4.4 3.9 3.9 4.0 CL 107 109 108 110 112* CO2 24 26 29 26 27 GAP 7 5 4 6 4 BUN 52* 48* 47* 44* 38* CR 1.08* 0.96 1.02* 0.87 0.72 GLU 224* 197* 176* 188* 131* CA 7.5* 7.8* 7.6* 7.6* 7.8* ALBUMIN -- 2.5* 2.4* -- 2.3* MG -- 2.1 1.9 -- 2.0 PO4 5.2* 5.7* -- -- -- Recent Labs 10/14/17 2015 10/15/17 0425 10/16/17 0320 10/17/17 0311 WBC 1.0* 1.1* 1.0* 0.6* HGB 6.9* 8.4* 7.3* 6.5* HCT 20.4* 24.7* 21.3* 19.2* PLTCT 22* 25* 22* 13* AST -- 15 16 10 ALT -- 12 16 12 ALKPHOS -- 28 26 24* Estimated Creatinine Clearance: 127.2 mL/min (based on Cr of 0.72). Vitals: 05/03/17 1500 05/03/17 1744 05/04/17 1143 Weight: (!) 162.4 kg (358 lb) (!) 148.8 kg (328 lb 1.9 oz) (!) 144.2 kg (318 lb ) Thyroid Studies No results found for: TSH, FREET4, FREEINDEX No results found for: FREET3, [id number], THYBINDGLB Ari Collazo MD Endocrinology Fellow PGY-[id number] [phone] Associated attestation - Jh Ledezma MD - 05/04/2017 4:14 PM CDT Formatting of this note may be different from the original. ATTESTATION I personally performed the carrizales portions of the E/M visit, discussed case with resident and concur with resident documentation of history, physical exam, assessment, and treatment plan unless otherwise noted. Staff name: Jh Ledezma MD Date: 05/04/2017 * Arnold Sparks PT - 05/04/2017 11:04 AM CDT PHYSICAL THERAPY PROGRESS NOTE MOBILITY: Mobility Progressive Mobility Level: Active transfer to chair Level of Assistance: Assist X2 Assistive Device: Walker Time Tolerated: 31-60 minutes Activity Limited By: Fatigue SUBJECTIVE: Subjective Significant hospital events: Patient is a 56 year old female with new diagnosis of AML. Patient admitted for start of chemotherapy. Patient is obese with bariatric bed in place. 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 PT assisted with weight measurement as well as transferring patient to bedside chair. Ambulation Assist: Independent Mobility in Community with Device Patient Owned Equipment: Roller Walker Home Situation: Lives with Family Type of Home: House Entry Stairs: 3-5 Stairs;Rail on Both Sides In-Home Stairs: Able to Live on One Level BED MOBILITY/TRANSFERS: Bed Mobility/Transfers Bed Mobility: Supine to Sit: Standby Assist;Use of Rail Transfer Type: Sit to/from Stand Transfer: Assistance Level: To/From;Bed;Minimal Assist;x2 People Transfer: Assistive Device: Roller Walker Transfers: Type Of Assistance: Verbal Cues;For Safety Considerations End Of Activity Status: Up in Chair;Nursing Notified;Instructed Patient to Use Call Light GAIT: Gait Gait Distance: 4 feet Gait: Assistance Level: Minimal Assist;Management of Lines;Safety Considerations Gait: Assistive Device: Roller Walker Gait: Descriptors: Pace: Slow;Swing-Through Gait;No balance loss;Variable step length EDUCATION: Education Persons Educated: Patient Patient Barriers To Learning: None Noted Teaching Methods: Verbal Instruction Patient Response: Verbalized Understanding Topics: Mobility Progression ASSESSMENT/PROGRESS: Assessment/Progress Impaired Mobility Due To: Decreased Strength;Decreased Activity Tolerance; Medical Status Limitation Assessment/Progress: Should Improve w/ Continued PT;Expect Slow Progress Comments: Patient demonstrated good strength today and transferred very well. Patient is going to continue to benefit from consistent therapy on a daily basis to improve general strength and endurance for safe discharge home. AM-PAC 6 Clicks Basic Mobility Inpatient Turning from your back to your side while in a flat bed without using bed rails : A Little Moving from lying on your back to sitting on the side of a flatbed without using bedrails : A Little Moving to and from a bed to a chair (including a wheelchair): A Little Standing up from a chair using your arms (e.g. wheelchair, or bedside chair): A Little To walk in hospital room: A Little Climbing 3-5 steps with a railing: A Lot Raw Score: 17 Standardized (T-scale) Score: 39.67 Basic Mobility CMS 0-100%: 43.83 CMS G Code Modifier for Basic Mobility: CK GOALS: Goals Goal Formulation: With Patient Time For Goal Achievement: 7 days Pt Will Go Supine To/From Sit: w/ Minimal Assist Pt Will Transfer Bed/Chair: w/ Minimal Assist Pt Will Transfer Sit to Stand: w/ Minimal Assist Pt Will Ambulate: 11-30 Feet, w/ Walker, w/ Minimal Assist PLAN: Plan Treatment Interventions: Mobility Training;Strengthening;Balance Activities; Coordination Training;Endurance Training Plan Frequency: 5 Days per Week Comments: Work on ambulation with chair follow. General strengthening exercises. RECOMMENDATIONS: PT Discharge Recommendations PT Discharge Recommendations: Inpatient Setting;to address deficits, maximize function and improve safety Equipment Recommendations: Patient owns necessary equipment Therapist: Arnold Sparks DPT Date: 05/04/2017 * Alisha Gregorio MD - 05/04/2017 6:31 AM CDT Formatting of this note may be different from the original. 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 Cardiology consulted. - Monitor TLS labs and DIC labs daily - Start 7+3 04/28/2017, FLT3 ITD positive, will submit to add midostaurin - D7 of 7+3 Heme: - Anemia and thrombocytopenia due to underlying AML. PRBC today 05/04/17 - Previously on anticoagulation with apixaban for Atrial fibrillation, will hold for now with thrombocytopenia - Anticoagulation with lovenox for DVT ppx contraindicated due to thrombocytopenia, SCD's when on bed FEN/Renal: - Creatinine improved. - Appreciate renal recommendations - Continue allopurinol - Monitor electrolytes, will be high goal replacement with h/o atrial fibrillation - Close monitoring of fluid status - Will need Lasix daily until weight improves, ID: - Presents with UTI and fever - Urine cx from [facility] [address] 04/23: + E.Coli resistant to ampicillin, Bactrim, Nitrofurantoin. Intermediate resistance to gent and Unasyn. Susceptible to ceftriaxone, zosyn, meropenem, cipro and aztreonam - Blood cx x [address] 04/23: NGTD - Cefepime continues, had vancomycin and daptomycin on 04/24-04/25, discontinued, restart vanco if febrile. Needs to complete at least a 14 day course of cefepime for complicated UTI. Will plan to continue until neutropenia resolves - Has urinary catheter in place, did have urinary retention after trying to remove, will try again in one week after finishing antibiotics. Lots of sediment in urine and chronic UTI. - On prophylaxis with micafungin and acyclovir - Continue IV fluids/hydration. Monitor closely GI: - No nausea, vomiting. Had multiple BM 05/03/17. Last two liquid. Patient felt better after BM - Low albumin. Liver functions normal - Obese, BMT>40 - Standing weights not possible due to patient factors Endo: - Has type II DM, on glimiperide has been discontinued on admission - Had persistent low blood sugars, now blood sugars better - Endocrinology consultation obtained and appreciate recommendations; On lantus 12 units, 7 units Novolog with meals and MDCF CVS: - H/o atrial fibrillation, rate controlled. 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 Atenolol held 05/02/17 night due to 2 sec pause. - Mild moderate - Will hold apixaban atenolol and continue diltiazem - Cardiology opinion appreciated, 2d Echo- normal EF 60%. Psych/Social: Pleasant, no issues - On alprazolam for anxiety, currently continued at low dose - Lives in [place], , currently on disability, son lives in [facility] - Need to schedule family meeting to discuss future treatment course, had first discussion with and family friend on 04/28. PT/OT: Mobility is a big issue. She is three person transfer. She says her baseline had been bed to restroom and back for several years due to neuropathy Subjective: Giselle Moraes is a 56 y.o. female. Tolerating chemo very well. Feeling tired today. Some nausea. Not moving much. Had multiple BMs. Feels more swelling. Review of Systems: Constitutional: + fatigue, anorexia, appetite change, HEENT: Negative. No ear/ nose problems. Bleeding of lips due to dryness. No gum bleeding Respiratory: +cough, sputum, mild SOB Cardiovascular: Negative for chest pain, chest pressure, palpitations, edema in extremeties Gastrointestional: diarrhea intermittent. No abdominal pain/ nausea or vomiting , felt bloated but better after BM Gernitourinary: +dysuria, no hematuria, has Gonzalez in place Musculoskeletal: cannot walk or get up without assistance, severe neuropathy and right knee pain since surgery Skin: Negative Psych: + anxiety Objective: Medications: Scheduled Meds: acyclovir (ZOVIRAX) tablet 400 mg 400 mg Oral BID allopurinol (ZYLOPRIM) tablet 300 mg 300 mg Oral QDAY cefepime (MAXIPIME) 2 g/100 ml iso-osmotic IVPB 2 g Intravenous Q12H* cytarabine (CYTOSAR) 520 mg in sodium chloride 0.9% (NS) 1,000 mL IVPB(C100) 200 mg/m2 (Treatment Plan Recorded) Intravenous ONCE cytarabine (CYTOSAR) 520 mg in sodium chloride 0.9% (NS) 1,000 mL IVPB(C100) 200 mg/m2 (Treatment Plan Recorded) Intravenous ONCE diltiazem CD (cardIZEM CD) capsule 240 mg 240 mg Oral QDAY insulin aspart (NOVOLOG FLEXPEN) injection PEN 0-14 Units 0-14 Units Subcutaneous ACHS insulin aspart (NOVOLOG FLEXPEN) injection PEN 7 Units 7 Units Subcutaneous TID w/ meals insulin glargine (LANTUS SOLOSTAR) injection PEN 12 Units 12 Units Subcutaneous QDAY(12) micafungin (MYCAMINE) 50 mg in sodium chloride 0.9% (NS) 105 mL IVPB 50 mg Intravenous Q24H* ondansetron (ZOFRAN) tablet 16 mg 16 mg Oral Q24H* polyethylene glycol 3350 (MIRALAX) packet 17 g 1 packet Oral QDAY senna (SENOKOT) tablet 1 tablet 1 tablet Oral BID Continuous Infusions: sodium chloride 0.9 % infusion 75 mL/hr at 05/03/17 2316 PRN and Respiratory Meds:acetaminophen Q6H PRN, ALPRAZolam BID PRN, alteplase PRN (Compliance Representative from Rx), LORazepam Q6H PRN, LORazepam injection Q6H PRN, magnesium sulfate 4 g/50 mL PRN, milk of magnesia (CONC) Q6H PRN, potassium chloride PRN (Compliance Representative from Rx) OR potassium chloride SR PRN (Compliance Representative from Rx ), saliva, synthetic PRN, sodium chloride 0.9% irrigation bottle PRN Vital Signs: Last Filed Vital Signs: 24 Hour Range BP: 117/54 (05/04 553) Temp: 36.7 C (98.1 F) (05/04 553) Pulse: 94 (05/04 553) Respirations: 16 PER MINUTE (05/04 553) SpO2: 100 % (05/04 553) O2 Delivery: Nasal Cannula (05/04 553) BP: (114-137)/(53-74) Temp: [36.4 C (97.5 F)-36.9 C (98.5 F)] Pulse: [68-94] Respirations: [14 PER MINUTE-18 PER MINUTE] SpO2: [92 %-100 %] O2 Delivery: Nasal Cannula Intensity Pain Scale 0-10 (Pain 1): (not recorded) Vitals: 05/01/17 1300 05/03/17 1500 05/03/17 1744 Weight: (!) 150.1 kg (331 lb) (!) 162.4 kg (358 lb) (!) 148.8 kg (328 lb 1.9 oz ) Intake/Output Summary: (Last 24 hours) Intake/Output Summary (Last 24 hours) at 05/04/17 0631 Last data filed at 05/04/17 05 Gross per 24 hour Intake 4079 ml Output 3225 ml Net 854 ml Physical Exam: Performance Status (Karnofsky): 40% Disabled, requires special care and assistance General: awake & oriented, no acute distress, appears stated age, Morbidly obese HENT: normocephalic, atraumatic, non-icteric, clear conjunctivae, no adenopathy. Eyes: Conjunctuvae clear. PERRL, EOMs intact. CV: AFIB Lungs: clear to ausculation bilaterally, non-labored Abdomen: Obese abdomen, soft, non-tender, non-distended, normo-active bowel sounds. Has indwelling catheter Extremities: no edema, cyanosis, pulses Skin: Warm & dry. Skin color, turgor normal. No rahses or lesions Neuro: Non focal Psych: Normal mood and affect. Judgment and thought content normal. Lab Review: Results for orders placed or performed during the hospital encounter of (from the past 48 hour(s)) POC GLUCOSE Collection Time: 05/02/17 7:55 AM # # Low-High Glucose, POC 201 (H) 70 - 100 MG/DL POC GLUCOSE Collection Time: 05/02/17 11:12 AM # # Low-High Glucose, POC 204 (H) 70 - 100 MG/DL POC GLUCOSE Collection Time: 05/02/17 2:29 PM # # Low-High Glucose, POC 191 (H) 70 - 100 MG/DL POC GLUCOSE Collection Time: 05/02/17 3:57 PM # # Low-High Glucose, POC 184 (H) 70 - 100 MG/DL POC GLUCOSE Collection Time: 05/02/17 9:13 PM # # Low-High Glucose, POC 211 (H) 70 - 100 MG/DL POC GLUCOSE Collection Time: 05/03/17 3:16 AM # # Low-High Glucose, POC 182 (H) 70 - 100 MG/DL COMPREHENSIVE METABOLIC PANEL Collection Time: 05/03/17 3:20 AM # # Low-High Sodium 141 137 - 147 MMOL/L Potassium 3.9 3.5 - 5.1 MMOL/L Chloride 108 98 - 110 MMOL/L Glucose 176 (H) 70 - 100 MG/DL Blood Urea Nitrogen 47 (H) 7 - 25 MG/DL Creatinine 1.02 (H) 0.4 - 1.00 MG/DL Calcium 7.6 (L) 8.5 - 10.6 MG/DL Total Protein 5.3 (L) 6.0 - 8.0 G/DL Total Bilirubin 0.9 0.3 - 1.2 MG/DL Albumin 2.4 (L) 3.5 - 5.0 G/DL Alk Phosphatase 26 25 - 110 U/L AST (SGOT) 16 7 - 40 U/L CO2 29 21 - 30 MMOL/L ALT (SGPT) 16 7 - 56 U/L Anion Gap 4 3 - 12 eGFR Non 56 (L) >60 mL/min eGFR >60 >60 mL/min MAGNESIUM Collection Time: 05/03/17 3:20 AM # # Low-High Magnesium 1.9 1.6 - 2.6 mg/dL CBC AND DIFF Collection Time: 05/03/17 3:20 AM # # Low-High White Blood Cells 1.0 (L) 4.5 - 11.0 K/UL RBC 2.31 (L) 4.0 - 5.0 M/UL Hemoglobin 7.3 (L) 12.0 - 15.0 GM/DL Hematocrit 21.3 (L) 36 - 45 % MCV 92.4 80 - 100 FL MCH 31.7 26 - 34 PG MCHC 34.3 32.0 - 36.0 G/DL RDW 20.2 (H) 11 - 15 % Platelet Count 22 (LL) 150 - 400 K/UL MPV 9.1 7 - 11 FL Neutrophils 56 41 - 77 % Lymphocytes 41 24 - 44 % Monocytes 3 (L) 4 - 12 % Eosinophils 0 0 - 5 % Basophils 0 0 - 2 % Absolute Neutrophil Count 0.50 (L) 1.8 - 7.0 K/UL Absolute Lymph Count 0.40 (L) 1.0 - 4.8 K/UL Absolute Monocyte Count 0.00 0 - 0.80 K/UL Absolute Eosinophil Count 0.00 0 - 0.45 K/UL Absolute Basophil Count 0.00 0 - 0.20 K/UL POC GLUCOSE Collection Time: 05/03/17 9:39 AM # # Low-High Glucose, POC 183 (H) 70 - 100 MG/DL BNP (B-TYPE NATRIURETIC PEPTI) Collection Time: 05/03/17 12:45 PM # # Low-High B Type Natriuretic Peptide 139.0 (H) 0 - 100 PG/ML POC GLUCOSE Collection Time: 05/03/17 6:40 PM # # Low-High Glucose, POC 225 (H) 70 - 100 MG/DL BASIC METABOLIC PANEL Collection Time: 05/03/17 8:13 PM # # Low-High Sodium 142 137 - 147 MMOL/L Potassium 3.9 3.5 - 5.1 MMOL/L Chloride 110 98 - 110 MMOL/L CO2 26 21 - 30 MMOL/L Anion Gap 6 3 - 12 Glucose 188 (H) 70 - 100 MG/DL Blood Urea Nitrogen 44 (H) 7 - 25 MG/DL Creatinine 0.87 0.4 - 1.00 MG/DL Calcium 7.6 (L) 8.5 - 10.6 MG/DL eGFR Non >60 >60 mL/min eGFR >60 >60 mL/min POC GLUCOSE Collection Time: 05/03/17 9:00 PM # # Low-High Glucose, POC 161 (H) 70 - 100 MG/DL POC GLUCOSE Collection Time: 05/04/17 3:07 AM # # Low-High Glucose, POC 131 (H) 70 - 100 MG/DL COMPREHENSIVE METABOLIC PANEL Collection Time: 05/04/17 3:11 AM # # Low-High Sodium 143 137 - 147 MMOL/L Potassium 4.0 3.5 - 5.1 MMOL/L Chloride 112 (H) 98 - 110 MMOL/L Glucose 131 (H) 70 - 100 MG/DL Blood Urea Nitrogen 38 (H) 7 - 25 MG/DL Creatinine 0.72 0.4 - 1.00 MG/DL Calcium 7.8 (L) 8.5 - 10.6 MG/DL Total Protein 4.7 (L) 6.0 - 8.0 G/DL Total Bilirubin 0.7 0.3 - 1.2 MG/DL Albumin 2.3 (L) 3.5 - 5.0 G/DL Alk Phosphatase 24 (L) 25 - 110 U/L AST (SGOT) 10 7 - 40 U/L CO2 27 21 - 30 MMOL/L ALT (SGPT) 12 7 - 56 U/L Anion Gap 4 3 - 12 eGFR Non >60 >60 mL/min eGFR >60 >60 mL/min MAGNESIUM Collection Time: 05/04/17 3:11 AM # # Low-High Magnesium 2.0 1.6 - 2.6 mg/dL CBC AND DIFF Collection Time: 05/04/17 3:11 AM # # Low-High White Blood Cells 0.6 (LL) 4.5 - 11.0 K/UL RBC 2.08 (L) 4.0 - 5.0 M/UL Hemoglobin 6.5 (L) 12.0 - 15.0 GM/DL Hematocrit 19.2 (L) 36 - 45 % MCV 92.5 80 - 100 FL MCH 31.5 26 - 34 PG MCHC 34.1 32.0 - 36.0 G/DL RDW 19.2 (H) 11 - 15 % Platelet Count 13 (LL) 150 - 400 K/UL MPV 9.0 7 - 11 FL Segmented Neutrophils 42 41 - 77 % Bands 1 0 - 10 % Lymphocytes 50 (H) 24 - 44 % Monocytes 5 4 - 12 % Blast 2 % ANISO PRESENT Ovalocyte PRESENT Platelet Estimate MKD DEC Absolute Neutrophil Count Manual 0.26 (L) 1.8 - 7.0 K/UL TYPE & CROSSMATCH Collection Time: 05/04/17 3:50 AM # # Low-High Units Ordered 1 Crossmatch Expires 05/07/2017 Record Check FOUND ABO/RH(D) A POS Antibody Screen NEG Electronic Crossmatch YES Unit Number [id number] Blood Component Type RBC,ADSOL,LEUKO REDUCED,IRRADIATED Unit Division 0 Status OF Unit ISSUED Transfusion Status OK TO TRANSFUSE Crossmatch Result COMPATIBLE,ELECTRONIC Radiology Review: No pertinent radiology. Alisha Gregorio MD * Mercedes Valadez RN - 05/04/2017 5:41 AM CDT .Shift: 7p-7a NEWS Score:2, 2, 2 Pain: No complaints of pain this shift. Nutrition: ADA diet. No complaints of nausea this shift. Oral intake encouraged. GI/: Adequate urine output this shift via gonzalez. Patient was incontinent of loose stool several times this shift. Activity: Max assist. Patient was not up at all this shift. Bedpan was used when needed. Family: No family at the bedside this shift. Last Shower: 05/03 New Events or Follow-up: No new events this shift. Patient requires RBCs, potassium and magnesium replacements per BMT high goal protocol. * Deirdre Smith, PIPO - 05/03/2017 8:20 PM CDT CLINICAL NUTRITION Clinical Nutrition DM Assessment Summary Nutrition Assessment of Patient: BMI Categories Adult: Obesity Class III: 40 and over (BMI of 49.4 at present wt) Current Oral Intake: Adequate, Marginally Adequate, Inconsistent Estimated Calorie Needs: 5361-8497 (25-30kcal/kg desired wt 72kg) Estimated Protein Needs: 86-101 (1.2-1.4g/kg DBW) Oral Diet Order: Diabetic 0362-2756 Kcal/day (60 g Carb/meal, 30 g Carb/HS snack ) 56 yr old female with h/o permanent AF, mild to moderate , DM, CKD, nephrolithiasis obesity admitted with suspicious acute leukemia. Currently day 6 of 7+3. Pt with h/o DM, A1C 5.2 this admit, however likely falsely low given low hemoglobin. FSBS ranging from 182-225 in the last 24hrs. Insulin and appropriate diabetic diet on board. No pressure injuries noted. This RD had lengthy discussion with patient today. She initially denied neutropenic diet education, but accepted written information and will notify RD if further questions arise. She has been told to follow multiple diets in the past including renal, consistent carb, and low oxalate. She had some confusion regarding what is ok to eat versus foods to avoid during cancer treatment. We discussed primary goal of adequate intakes. She normally eats twice daily. This RD encouraged 3 balanced meals including good protein sources with all meals, to aid in glycemic control and prevent unintended wt loss. She reports constipation/early satiety have been barriers to intake. We discussed foods she may tolerate best. ACS nutrition booklet also provided. Noted wt is up 18# from admit with noted BLE 2+ edema. She is not at high nutrition risk currently will re-eval per protocol or as needed. Recommendation: Custom Combinations Diabetic 60g/meal and Neutropenic Diet. If PO intakes decline recommend liberalizing to regular diet. Consider adding Phos binder with meals (last level 5.7) Deirdre Smith MS, RD, LD *[id number] * Luna Emmanuel RN - 05/03/2017 6:28 PM CDT Shift: 05/03 NEWS Score: 2, 0, 0 Pain:pt denies pain. Reports discomfort with gonzalez d/t friction and rubbing between thighs. Pt repositioned throughout shift, encouraged to reposition self as well. Pt agreeable. Patient denies tingling in extremities, however, patient reports severe numbness in hands and feet and attributes this to her limited mobility. Nutrition: Patient consumed Raisin Bran and banana for breakfast, half of Egg salad sandwich for lunch and is refusing to eat dinner. Patient reports she feels full and did not have a BM for three days. Patient passed several BMs and flatulence this shift, however, reports that she feels bloated and cannot eat dinner. This RN encouraged patient to consume a small high protein snack if possible. Denies nausea GI/: Patient voiding adequately throughout shift. Patient has had several BM' s this shift. Large, formed, and soft. Last two BMs have been loose. Patient passing flatulence as well. Patient reports feeling better after BM's. Gonzalez care provided with Gonzalez wipes with each BM. Activity: Patient high fall. Patient using walker to ambulate and transfer. Patient very hesitant to move from bed to chair, and/or use commode. Patient refuses to attempt ambulation. With much encouragement, patient transferred from bed to recliner x2 this shift for breakfast and lunch. Patient up to commode x2 this shift. Once after lunch and once this afternoon. Patient requiring assist of staff x4 to get up from commode due to fatigue and weakness , however, patient able to stand with no assist when transferring from bed to chair, and chair to commode. Patient received bed bath while sitting on commode , patient participated in ADL's while on commode. Patient brushed teeth herself , used saline rinses x3 this shift. Patient repositioning self in bed using trapeze. Patient able to use legs to boost self as well. This RN encouraged patient to move hips and turn side to side throughout shift to prevent pressure ulcers. Patient agreeable and verbalizes understanding of importance. Family: no family present this shift Last Shower: Bed bath using CHG and line care performed with assist of two staff members while up to commode. * Arnold Sparks, PT - 05/03/2017 4:00 PM CDT PHYSICAL THERAPY NOTE PT met with patient multiple times today to work on mobility. Patient was able to get up to the chair multiple times today with nursing staff. Patient seems overwhelmed by therapist trying to encourage patient to do more than get to the chair. PT and patient spoke for a long time trying to determine what the patient's goals are and how she would prefer therapy approach this entire situation. Patient states her goals are to be able to walk and also to be able to shower normally. PT to plan to follow up with patient in the mornings and have OT work with patient in the afternoons. This PT will continue to follow. Therapist: Arnold Sparks DPT Date: 05/03/2017 * Luna Emmanuel, RN - 05/03/2017 3:57 PM CDT CHEMO NOTE Verified chemo consent signed and in chart. YES Verified initiate chemo order in O2. YES Blood return positive via: mckeon lumen, right trifusion Premedications/Prehydration given as ordered. YES BSA and dose double checked (agree with orders as written) with: Alma Rosa Ruiz, RN Arm band verified at bedside with second RN (same RN as above unless otherwise noted). YES Labs/applicable tests checked. YES Chemo drug/dose/route: cytarabine (CYTOSAR) 520 mg in sodium chloride 0.9% (NS) 1,000 mL IVPB(C100 Rate verified with second RN (same RN as above unless otherwise noted). YES Patient education offered and stated understanding. YES * Jennifer Cindy, COUNTER TOP ASSEMBLER - 05/03/2017 2:01 PM CDT PHYSICAL THERAPY PROGRESS NOTE MOBILITY: Mobility Progressive Mobility Level: Active transfer to chair Level of Assistance: Assist X2 Assistive Device: Walker Time Tolerated: 11-30 minutes Activity Limited By: Fatigue;Dizziness SUBJECTIVE: Subjective Significant hospital events: Patient is a 56 year old female with new diagnosis of AML. Patient admitted for start of chemotherapy. Patient is obese with bariatric bed in place. Mental / Cognitive Status: Alert;Oriented;Cooperative Persons Present: Nursing Staff Pain: Patient complains of pain;Patient does not rate pain Pain Location: Bilateral;Hand;Foot Pain Description: ("neuropathy") Pain Interventions: Patient agrees to participate in therapy;Treatment altered to patient's pain tolerance;Patient declines pain meds Comments: Stopped by nurse who requested help with transferring pt to the chair for lunch. Ambulation Assist: Independent Mobility in Community with Device Patient Owned Equipment: Roller Walker Home Situation: Lives with Family Type of Home: House Entry Stairs: 3-5 Stairs;Rail on Both Sides In-Home Stairs: Able to Live on One Level BED MOBILITY/TRANSFERS: Bed Mobility/Transfers Bed Mobility: Supine to Sit: Minimal Assist;Verbal Cues;Head of Bed Elevated; Use of Rail;Limited Due to Air Bed/Mattress;Safety Considerations;Assist with Trunk Comments: leg/thigh blocked to prevent pt from sliding out of bed. Bed was in the lowest position and on seat deflate. Transfer Type: Sit to/from Stand Transfer: Assistance Level: From;Bed;To;Bed Side Chair;Minimal Assist;of 1st person;Standby Assist;of 2nd person (nearing contact assist) Transfer: Assistive Device: Roller Walker Transfers: Type Of Assistance: Verbal Cues;For Strength Deficit;For Safety Considerations;Requires Extra Time Other Transfer Type: Stand Pivot Other Transfer: Assistance Level: Bed;To;Bed Side Chair;Minimal Assist;of 1st person;Standby Assist;of 2nd person (nearing contact assist) Other Transfer: Assistive Device: Roller Walker Other Transfer: Type Of Assistance: For Strength Deficit;For Safety Considerations;Requires Extra Time End Of Activity Status: Up in Chair;Instructed Patient to Request Assist with Mobility;Instructed Patient to Use Call Light (nurse set pt up for lunch) GAIT: Gait Gait Distance: (several steps to the chair) Gait: Assistance Level: Management of Lines;Safety Considerations (contact assist x 1-2) Gait: Assistive Device: Roller Walker Gait: Descriptors: Decreased foot clearance RLE;Decreased foot clearance LLE;No balance loss Activity Limited By: Complaint of Fatigue;Weakness Comments: pt sat EOB for several minutes prior to transfer due to c/o dizziness. EDUCATION: Education Persons Educated: Patient Patient Barriers To Learning: None Noted Teaching Methods: Verbal Instruction Patient Response: Verbalized Understanding Topics: Mobility Progression ASSESSMENT/PROGRESS: Assessment/Progress Impaired Mobility Due To: Decreased Strength;Decreased Activity Tolerance; Medical Status Limitation Assessment/Progress: Should Improve w/ Continued PT;Expect Slow Progress AM-PAC 6 Clicks Basic Mobility Inpatient Turning from your back to your side while in a flat bed without using bed rails : A Little Moving from lying on your back to sitting on the side of a flatbed without using bedrails : A Lot Moving to and from a bed to a chair (including a wheelchair): A Lot Standing up from a chair using your arms (e.g. wheelchair, or bedside chair): A Lot To walk in hospital room: A Lot Climbing 3-5 steps with a railing: A Lot Raw Score: 13 Standardized (T-scale) Score: 33.99 Basic Mobility CMS 0-100%: 57.65 CMS G Code Modifier for Basic Mobility: CK GOALS: Goals Goal Formulation: With Patient Time For Goal Achievement: 7 days Pt Will Go Supine To/From Sit: w/ Minimal Assist Pt Will Transfer Bed/Chair: w/ Minimal Assist Pt Will Transfer Sit to Stand: w/ Minimal Assist Pt Will Ambulate: 11-30 Feet, w/ Walker, w/ Minimal Assist PLAN: Plan Treatment Interventions: Mobility Training;Strengthening;Balance Activities; Coordination Training;Endurance Training Plan Frequency: 5 Days per Week Comments: PT to continue to work on general strength to improve ability to transfer in/out of bed as well as ambulation with 2nd person assist for safety. RECOMMENDATIONS: PT Discharge Recommendations PT Discharge Recommendations: Inpatient Setting;to address deficits, maximize function and improve safety Equipment Recommendations: Patient owns necessary equipment Therapist: Cindy Rodriguez, Physical therapist email marketing assistant Date: 05/03/2017 * Blanca Haney MD - 05/03/2017 1:51 PM CDT Formatting of this note may be different from the original. 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 female with CKD admitted with AML 1. CKD - renal function stable Cr around 1 2. High risk for TLS - received 1 dose of rasburicase - phos mildly high 3. UTI 4. DM 5. A. Fib Recommendations - would give another dose of lasix today to get her net neg 1L by tomorrow - continue to monitor for TLS - would add low phos diet given her higher phos - renally dose medications Blanca Haney MD Pager [phone] Subjective Giselle Moraes is a 56 y.o. female no acute events overnight. She continues to have lower extremity, she denies any chest pain, nausea, vomiting, or diarrhea. Medications Medications MEDS acyclovir (ZOVIRAX) tab/cap 400 mg Oral BID allopurinol 300 mg Oral QDAY cefepime (MAXIPIME) IVPB 2 g Intravenous Q12H* [START ON 05/04/2017] cytarabine (CYTOSAR-U) IVPB (spec. vol)(C100) 200 mg/m2 ( Treatment Plan Recorded) Intravenous ONCE cytarabine (CYTOSAR-U) IVPB (spec. vol)(C100) 200 mg/m2 (Treatment Plan Recorded ) Intravenous ONCE cytarabine (CYTOSAR-U) IVPB (spec. vol)(C100) 200 mg/m2 (Treatment Plan Recorded ) Intravenous ONCE diltiazem CD 240 mg Oral QDAY insulin aspart 0-14 Units Subcutaneous ACHS insulin aspart 7 Units Subcutaneous TID w/ meals insulin glargine 12 Units Subcutaneous QDAY(12) micafungin (MYCAMINE) IVPB 50 mg Intravenous Q24H* ondansetron 16 mg Oral Q24H* polyethylene glycol 3350 1 packet Oral QDAY senna 1 tablet Oral BID IV MEDS sodium chloride 0.9 % infusion 75 mL/hr at 05/03/17 0321 Prn acetaminophen Q6H PRN 650 mg at 04/24/17 2020, ALPRAZolam BID PRN 1 mg at 05/02/172121, alteplase PRN (Compliance Representative from Rx), LORazepam Q6H PRN, LORazepam injection Q6H PRN, magnesium sulfate 4 g/50 mL PRN 4 g at 05/03/17 0431, milk of magnesia (CONC) Q6H PRN, potassium chloride PRN (Compliance Representative from Rx) 10 mEq at 05/03/17 1019 OR potassium chloride SR PRN (Compliance Representative from Rx) 40 mEq at 05/01 2229, saliva, synthetic PRN, sodium chloride 0.9% irrigation bottle PRN Physical Exam Vital Signs: Last Filed In 24 Hours Vital Signs: 24 Hour Range BP: 137/74 (05/03 1213) Temp: 36.6 C (97.8 F) (05/03 1213) Pulse: 72 (05/03 1213) Respirations: 18 PER MINUTE (05/03 1213) SpO2: 99 % (05/03 1213) O2 Delivery: None (Room Air) (05/03 1213) BP: (114-137)/(46-74) Temp: [36.3 C (97.3 F)-37 C (98.6 F)] Pulse: [72-85] Respirations: [17 PER MINUTE-18 PER MINUTE] SpO2: [97 %-99 %] O2 Delivery: None (Room Air) Intake/Output Summary (Last 24 hours) at 05/03/17 1352 Last data filed at 05/03/17 1115 Gross per 24 hour Intake 4269.41 ml Output 7150 ml Net -2880.59 ml Vitals: 04/29/17 1250 04/30/17 1500 05/01/17 1300 Weight: (!) 137.1 kg (302 lb 3.2 oz) (!) 145.2 kg (320 lb 1.9 oz) (!) 150.1 kg ( 331 lb) Gen: Alert and Oriented HEENT: Sclera normal CV: no JVD, S1 and S2 normal, no rubs, murmurs or gallops Pulm: Clear to auscultation bilateral GI: BS+ x4, non-tender to palpation Neuro: Grossly normal, moving all extremities, speech intact Ext: 3+ edema Skin: no rash Labs: Recent Labs 04/30/17194405/01/1751405/01/17 1203 05/01/17201405/02/1742405/03/17 0320 NA 136* 138 138 138 140 141 K 4.3 4.6 4.9 3.8 4.4 3.9 CL 107 108 109 107 109 108 CO2 21 22 21 24 26 29 GAP 8 8 8 7 5 4 BUN 43* 46* 47* 52* 48* 47* CR 1.15* 0.98 1.03* 1.08* 0.96 1.02* GLU 280* 234* 299* 224* 197* 176* CA 7.6* 7.6* 7.7* 7.5* 7.8* 7.6* ALBUMIN -- 2.7* -- -- 2.5* 2.4* MG -- 2.0 -- -- 2.1 1.9 PO4 5.8* 6.4* 6.3* 5.2* 5.7* -- Recent Labs 04/30/17194405/01/1751405/01/17 1203 05/01/17201405/02/17 0425 05/03/17 0320 WBC 1.7* 2.3* 1.7* 1.0* 1.1* 1.0* HGB 6.8* 8.8* 7.3* 6.9* 8.4* 7.3* HCT 20.3* 25.7* 22.2* 20.4* 24.7* 21.3* PLTCT 7* 26* 23* 22* 25* 22* INR 1.3* 1.1 1.1 -- -- -- PTT 18.3* 19.7* 22.6 -- -- -- AST -- 11 -- -- 15 16 ALT -- 8 -- -- 12 16 ALKPHOS -- 31 -- -- 28 26 Estimated Creatinine Clearance: 92.1 mL/min (based on Cr of 1.02). Vitals: 04/29/17 1250 04/30/17 1500 05/01/17 1300 Weight: (!) 137.1 kg (302 lb 3.2 oz) (!) 145.2 kg (320 lb 1.9 oz) (!) 150.1 kg ( 331 lb) No results for input(s): PHART, PO2ART in the last 72 hours. Invalid input(s): PC02A * Ari Collazo MD - 05/03/2017 1:01 PM CDT Formatting of this note may be different from the original. Endocrinology progress note Today's Date: 05/03/2017 Admission Date: 04/24/2017 Reason for this consultation: Assessment: Type 2 diabetes mellitus: A1c unknown, ordered COUNTER TOP ASSEMBLER regimen: Glimepiride 4 mg daily Hypoglycemic episodes on this regimen: Unknown Follows up with for diabetes management: PCP Diabetic-complications assessment: Retinopathy: Last eye exam 2 years back, no retinopathy Peripheral neuropathy: Yes Autonomic neuropathy: No Nephropathy: Yes Macrovascular complications: No Risk factor assessment: Last lipid profile -none in chart On ACEi/ARB?:No On Statin?: No Recurrent hypoglycemia: Last dose of glimepiride 4 mg was on 04/23 in the morning, at home. Hypoglycemia is recurrent in spite of D5 normal saline drip. Recurrent UTI Acute leukemia A. fib CKD stage III Recommendations: - Hypoglycemia has resolved. - some Hyperglycemia noted - continue lantus 12 units daily - increase novolog 7 units with meals - continue MDCF - plan to restart glimepiride lower dose at discharge. we will continue to follow. Patient was seen and discussed with Dr. Jacobo History of Present Illness Giselle Moraes is a 56 y.o. female with past medical history of A. fib, type 2 diabetes, CKD stage III, UTI, anxiety was admitted for suspicion for acute leukemia. Endocrinology was consulted for recurrent hypoglycemia. Patient is still very fatigued. No more hypoglycemia. Appetite is better Denies nausea , vomitng , abdominal pain Estimated Creatinine Clearance: 92.1 mL/min (based on Cr of 1.02). 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 No pertinent family history. Allergies Allergies Allergen Reactions Ciprofloxacin SEE COMMENTS Per Nephrology doctors. Levofloxacin SEE COMMENTS Per nephrology doctors. Nsaids (Non-Steroidal Anti-Inflammatory Drug) SEE COMMENTS Per nephrology doctors. Bactrim [Sulfamethoxazole-Trimethoprim] SEE COMMENTS Per Nephrology Doctors. Contrast Dye Iv, Iodine Containing [Iodinated Contrast- Oral And Iv Dye] SEE COMMENTS Per nephrology doctors. Review of Systems A comprehensive 14-point review of systems was negative with exception of: Fatigue, feeling cold, shaky Medications Scheduled Meds: acyclovir (ZOVIRAX) tablet 400 mg 400 mg Oral BID allopurinol (ZYLOPRIM) tablet 300 mg 300 mg Oral QDAY cefepime (MAXIPIME) 2 g/100 ml iso-osmotic IVPB 2 g Intravenous Q12H* [START ON 05/04/2017] cytarabine (CYTOSAR) 520 mg in sodium chloride 0.9% (NS) 1 ,000 mL IVPB(C100) 200 mg/m2 (Treatment Plan Recorded) Intravenous ONCE cytarabine (CYTOSAR) 520 mg in sodium chloride 0.9% (NS) 1,000 mL IVPB(C100) 200 mg/m2 (Treatment Plan Recorded) Intravenous ONCE cytarabine (CYTOSAR) 520 mg in sodium chloride 0.9% (NS) 1,000 mL IVPB(C100) 200 mg/m2 (Treatment Plan Recorded) Intravenous ONCE diltiazem CD (cardIZEM CD) capsule 240 mg 240 mg Oral QDAY insulin aspart (NOVOLOG FLEXPEN) injection PEN 0-14 Units 0-14 Units Subcutaneous ACHS insulin aspart (NOVOLOG FLEXPEN) injection PEN 7 Units 7 Units Subcutaneous TID w/ meals insulin glargine (LANTUS SOLOSTAR) injection PEN 12 Units 12 Units Subcutaneous QDAY(12) micafungin (MYCAMINE) 50 mg in sodium chloride 0.9% (NS) 105 mL IVPB 50 mg Intravenous Q24H* ondansetron (ZOFRAN) tablet 16 mg 16 mg Oral Q24H* polyethylene glycol 3350 (MIRALAX) packet 17 g 1 packet Oral QDAY senna (SENOKOT) tablet 1 tablet 1 tablet Oral BID Continuous Infusions: sodium chloride 0.9 % infusion 75 mL/hr at 05/03/17 0321 PRN and Respiratory Meds:acetaminophen Q6H PRN, ALPRAZolam BID PRN, alteplase PRN (Compliance Representative from Rx), LORazepam Q6H PRN, LORazepam injection Q6H PRN, magnesium sulfate 4 g/50 mL PRN, milk of magnesia (CONC) Q6H PRN, potassium chloride PRN (Compliance Representative from Rx) OR potassium chloride SR PRN (Compliance Representative from Rx ), saliva, synthetic PRN, sodium chloride 0.9% irrigation bottle PRN Physical Examination Vital Signs: Last Vital Signs: 24 Hour Range BP: 137/74 (05/03 1213) Temp: 36.6 C (97.8 F) (05/03 1213) Pulse: 72 (05/03 1213) Respirations: 18 PER MINUTE (05/03 1213) SpO2: 99 % (05/03 1213) O2 Delivery: None (Room Air) (05/03 1213) BP: (114-137)/(46-74) Temp: [36.3 C (97.3 F)-37 C (98.6 F)] Pulse: [72-85] Respirations: [17 PER MINUTE-18 PER MINUTE] SpO2: [97 %-99 %] O2 Delivery: None (Room Air) General appearance: alert, oriented, looking tired HENT: Dry oral mucosa, dried blood on lips Lungs: no wheezing, rhonchi, rales appreciated Heart: Regular rhythm, reg rate, with no murmur, rub, gallop Abdomen: soft, non-tender, non-distended, normoactive bowel sounds, Ext: No clubbing, cyanosis or edema Skin: no rashes/lesions Lab Review Point of Care Testing (Last 24 hours) Glucose: (!) 176 (05/03/17 0320) POC Glucose (Download): (!) 183 (05/03/17 0939) Recent Labs 04/30/17194405/01/1751405/01/173 05/01/17201405/02/1742405/03/17 0320 NA 136* 138 138 138 140 141 K 4.3 4.6 4.9 3.8 4.4 3.9 CL 107 108 109 107 109 108 CO2 21 22 21 24 26 29 GAP 8 8 8 7 5 4 BUN 43* 46* 47* 52* 48* 47* CR 1.15* 0.98 1.03* 1.08* 0.96 1.02* GLU 280* 234* 299* 224* 197* 176* CA 7.6* 7.6* 7.7* 7.5* 7.8* 7.6* ALBUMIN -- 2.7* -- -- 2.5* 2.4* MG -- 2.0 -- -- 2.1 1.9 PO4 5.8* 6.4* 6.3* 5.2* 5.7* -- Recent Labs 04/30/17194405/01/1751405/01/17 12005/01/17201405/02/1742405/03/17 032 WBC 1.7* 2.3* 1.7* 1.0* 1.1* 1.0* HGB 6.8* 8.8* 7.3* 6.9* 8.4* 7.3* HCT 20.3* 25.7* 22.2* 20.4* 24.7* 21.3* PLTCT 7* 26* 23* 22* 25* 22* INR 1.3* 1.1 1.1 -- -- -- PTT 18.3* 19.7* 22.6 -- -- -- AST -- 11 -- -- 15 16 ALT -- 8 -- -- 12 16 ALKPHOS -- 31 -- -- 28 26 Estimated Creatinine Clearance: 92.1 mL/min (based on Cr of 1.02). Vitals: 04/29/17 1250 04/30/17 1500 05/01/17 1300 Weight: (!) 137.1 kg (302 lb 3.2 oz) (!) 145.2 kg (320 lb 1.9 oz) (!) 150.1 kg ( 331 lb) Thyroid Studies No results found for: TSH, FREET4, FREEINDEX No results found for: FREET3, D9IUHQDQF, THYBINDGLB Ari Collazo MD Endocrinology Fellow [id number] [phone] Associated attestation - Pierce Valle MD - 05/03/2017 3:06 PM CDT Formatting of this note may be different from the original. ATTESTATION I personally performed the carrizales portions of the E/M visit, discussed case with resident and concur with resident documentation of history, physical exam, assessment, and treatment plan unless otherwise noted. Staff name: Pierce Valle MD Date: 05/03/2017 * Alisha Gregorio MD - 05/03/2017 7:30 AM CDT Formatting of this note may be different from the original. 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 Cardiology consulted. - Monitor TLS labs and DIC labs daily - Start 7+3 04/28/2017, FLT3 ITD positive, will submit to add midostaurin - D6 of 7+3 Heme: - Anemia and thrombocytopenia due to underlying AML - Previously on anticoagulation with apixaban for Atrial fibrillation, will hold for now with thrombocytopenia - Anticoagulation with lovenox for DVT ppx contraindicated due to thrombocytopenia, SCD's when on bed FEN/Renal: - Creatinine improved. - Appreciate renal recommendations - Continue allopurinol - Monitor electrolytes, will be high goal replacement with h/o atrial fibrillation - Close monitoring of fluid status - Will need Lasix daily until weight improves,BUN rising, may hold today ID: - Presents with UTI and fever - Urine cx from [facility] 04/23: + E.Coli resistant to ampicillin, Bactrim, Nitrofurantoin. Intermediate resistance to gent and Unasyn. Susceptible to ceftriaxone, zosyn, meropenem, cipro and aztreonam - Blood cx x 2 from [facility] 04/23: NGTD - Cefepime continues, had vancomycin and daptomycin on 04/24-04/25, discontinued, restart vanco if febrile. Needs to complete at least a 14 day course of cefepime for complicated UTI. Will plan to continue until neutropenia resolves - Has urinary catheter in place, did have urinary retention after trying to remove, will try again in one week after finishing antibiotics. Lots of sediment in urine and chronic UTI. - On prophylaxis with micafungin and acyclovir - Continue IV fluids/hydration. Monitor closely GI: - No nausea, vomiting or diarrhea - Low albumin. Liver functions normal - Obese, BMT>40 - Standing weights daily Endo: - Has type II DM, on glimiperide has been discontinued on admission - Had persistent low blood sugars, now blood sugars better - Endocrinology consultation obtained and appreciate recommendations CVS: - H/o atrial fibrillation, rate controlled. 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 Atenolol held 05/02/17 night due to 2 sec pause. - Mild moderate - Will hold apixaban atenolol and continue diltiazem - Cardiology opinion appreciated, 2d Echo- normal EF 60%. Psych/Social: Pleasant, no issues - On alprazolam for anxiety, currently continued at low dose - Lives in [place], , currently on disability, son lives in [facility] - Need to schedule family meeting to discuss future treatment course, had first discussion with and family friend on 04/28. Subjective: Giselle Moraes is a 56 y.o. female. Tolerating chemo very well. Feeling tired today. Some nausea. Not moving much Review of Systems: Constitutional: + fatigue, anorexia, appetite change, weight change (loss) HEENT: Negative. No ear/ nose problems. Bleeding of lips due to dryness. No gum bleeding Respiratory: +cough, sputum, mild SOB Cardiovascular: Negative for chest pain, chest pressure, palpitations, edema in extremeties Gastrointestional: diarrhea intermittent. No abdominal pain/ nausea or vomiting Gernitourinary: +dysuria, no hematuria Musculoskeletal:Negative Skin: Negative Psych: + anxiety Objective: Medications: Scheduled Meds: acyclovir (ZOVIRAX) tablet 400 mg 400 mg Oral BID allopurinol (ZYLOPRIM) tablet 300 mg 300 mg Oral QDAY atenolol (TENORMIN) tablet 25 mg 25 mg Oral QDAY cefepime (MAXIPIME) 2 g/100 ml iso-osmotic IVPB 2 g Intravenous Q12H* cytarabine (CYTOSAR) 520 mg in sodium chloride 0.9% (NS) 1,000 mL IVPB(C100) 200 mg/m2 (Treatment Plan Recorded) Intravenous ONCE cytarabine (CYTOSAR) 520 mg in sodium chloride 0.9% (NS) 1,000 mL IVPB(C100) 200 mg/m2 (Treatment Plan Recorded) Intravenous ONCE diltiazem CD (cardIZEM CD) capsule 240 mg 240 mg Oral QDAY insulin aspart (NOVOLOG FLEXPEN) injection PEN 0-14 Units 0-14 Units Subcutaneous ACHS insulin aspart (NOVOLOG FLEXPEN) injection PEN 6 Units 6 Units Subcutaneous TID w/ meals insulin glargine (LANTUS SOLOSTAR) injection PEN 12 Units 12 Units Subcutaneous QDAY(12) micafungin (MYCAMINE) 50 mg in sodium chloride 0.9% (NS) 105 mL IVPB 50 mg Intravenous Q24H* ondansetron (ZOFRAN) tablet 16 mg 16 mg Oral Q24H* polyethylene glycol 3350 (MIRALAX) packet 17 g 1 packet Oral QDAY senna (SENOKOT) tablet 1 tablet 1 tablet Oral BID Continuous Infusions: sodium chloride 0.9 % infusion 75 mL/hr at 05/03/17 0321 PRN and Respiratory Meds:acetaminophen Q6H PRN, ALPRAZolam BID PRN, alteplase PRN (Compliance Representative from Rx), LORazepam Q6H PRN, LORazepam injection Q6H PRN, magnesium sulfate 4 g/50 mL PRN, milk of magnesia (CONC) Q6H PRN, potassium chloride PRN (Compliance Representative from Rx) OR potassium chloride SR PRN (Compliance Representative from Rx ), saliva, synthetic PRN, sodium chloride 0.9% irrigation bottle PRN Vital Signs: Last Filed Vital Signs: 24 Hour Range BP: 130/73 (05/03 320) Temp: 36.4 C (97.5 F) (05/03 320) Pulse: 85 (05/03 320) Respirations: 18 PER MINUTE (05/03 320) SpO2: 99 % (05/03 320) O2 Delivery: Nasal Cannula (05/03 320) BP: (114-130)/(46-73) Temp: [36.3 C (97.3 F)-37 C (98.6 F)] Pulse: [72-85] Respirations: [17 PER MINUTE-20 PER MINUTE] SpO2: [97 %-99 %] O2 Delivery: Nasal Cannula Intensity Pain Scale 0-10 (Pain 1): (not recorded) Vitals: 04/29/17 1250 04/30/17 1500 05/01/17 1300 Weight: (!) 137.1 kg (302 lb 3.2 oz) (!) 145.2 kg (320 lb 1.9 oz) (!) 150.1 kg ( 331 lb) Intake/Output Summary: (Last 24 hours) Intake/Output Summary (Last 24 hours) at 05/03/17 0730 Last data filed at 05/03/17 0631 Gross per 24 hour Intake 4829.41 ml Output 7175 ml Net -2345.59 ml Physical Exam: Performance Status (Karnofsky): 40% Disabled, requires special care and assistance General: awake & oriented, no acute distress, appears stated age, Morbidly obese HENT: normocephalic, atraumatic, non-icteric, clear conjunctivae, no adenopathy. Mild bleeding/ clotted blood on lips, no oral bleeding or gum bleeding Eyes: Conjunctuvae clear. PERRL, EOMs intact. CV: AFIB Lungs: clear to ausculation bilaterally, non-labored Abdomen: Obese abdomen, soft, non-tender, non-distended, normo-active bowel sounds. Has indwelling catheter Extremities: no edema, cyanosis, pulses Skin: Warm & dry. Skin color, turgor normal. No rahses or lesions Neuro: drowsy but arousable and obeys all command, oriented to person, place and time. No focal deficits; normal muscle strength- normal Psych: Normal mood and affect. Judgment and thought content normal. Lab Review: Results for orders placed or performed during the hospital encounter of (from the past 48 hour(s)) POC GLUCOSE Collection Time: 05/01/17 10:30 AM # # Low-High Glucose, POC 274 (H) 70 - 100 MG/DL PHOSPHORUS Collection Time: 05/01/17 12:03 PM # # Low-High Phosphorus 6.3 (H) 2.0 - 4.0 MG/DL FIBRINOGEN Collection Time: 05/01/17 12:03 PM # # Low-High Fibrinogen 214 200 - 400 MG/DL URIC ACID Collection Time: 05/01/17 12:03 PM # # Low-High Uric Acid 3.7 2.0 - 7.0 MG/DL PTT (APTT) Collection Time: 05/01/17 12:03 PM # # Low-High APTT 22.6 21.0 - 39.0 SEC PROTIME INR (PT) Collection Time: 05/01/17 12:03 PM # # Low-High INR 1.1 0.8 - 1.2 BASIC METABOLIC PANEL Collection Time: 05/01/17 12:03 PM # # Low-High Sodium 138 137 - 147 MMOL/L Potassium 4.9 3.5 - 5.1 MMOL/L Chloride 109 98 - 110 MMOL/L CO2 21 21 - 30 MMOL/L Anion Gap 8 3 - 12 Glucose 299 (H) 70 - 100 MG/DL Blood Urea Nitrogen 47 (H) 7 - 25 MG/DL Creatinine 1.03 (H) 0.4 - 1.00 MG/DL Calcium 7.7 (L) 8.5 - 10.6 MG/DL eGFR Non 55 (L) >60 mL/min eGFR >60 >60 mL/min CBC AND DIFF Collection Time: 05/01/17 12:03 PM # # Low-High White Blood Cells 1.7 (L) 4.5 - 11.0 K/UL RBC 2.36 (L) 4.0 - 5.0 M/UL Hemoglobin 7.3 (L) 12.0 - 15.0 GM/DL Hematocrit 22.2 (L) 36 - 45 % MCV 94.0 80 - 100 FL MCH 31.0 26 - 34 PG MCHC 33.0 32.0 - 36.0 G/DL RDW 21.8 (H) 11 - 15 % Platelet Count 23 (LL) 150 - 400 K/UL MPV 9.0 7 - 11 FL Neutrophils 57 41 - 77 % Lymphocytes 13 (L) 24 - 44 % Monocytes 30 (H) 4 - 12 % Eosinophils 0 0 - 5 % Basophils 0 0 - 2 % Absolute Neutrophil Count 0.90 (L) 1.8 - 7.0 K/UL Absolute Lymph Count 0.20 (L) 1.0 - 4.8 K/UL Absolute Monocyte Count 0.50 0 - 0.80 K/UL Absolute Eosinophil Count 0.00 0 - 0.45 K/UL Absolute Basophil Count 0.00 0 - 0.20 K/UL MANUAL DIFF Collection Time: 05/01/17 12:03 PM # # Low-High Segmented Neutrophils 45 41 - 77 % Bands 2 0 - 10 % Lymphocytes 18 (L) 24 - 44 % Monocytes 20 (H) 4 - 12 % Metamyelocyte 2 % Myelocyte 1 % Blast 12 % Platelet Estimate MKD DEC RBC Morph ANISO POIK OVALO POC GLUCOSE Collection Time: 05/01/17 12:38 PM # # Low-High Glucose, POC 271 (H) 70 - 100 MG/DL POC GLUCOSE Collection Time: 05/01/17 4:49 PM # # Low-High Glucose, POC 243 (H) 70 - 100 MG/DL PHOSPHORUS Collection Time: 05/01/17 8:15 PM # # Low-High Phosphorus 5.2 (H) 2.0 - 4.0 MG/DL URIC ACID Collection Time: 05/01/17 8:15 PM # # Low-High Uric Acid 4.0 2.0 - 7.0 MG/DL BASIC METABOLIC PANEL Collection Time: 05/01/17 8:15 PM # # Low-High Sodium 138 137 - 147 MMOL/L Potassium 3.8 3.5 - 5.1 MMOL/L Chloride 107 98 - 110 MMOL/L CO2 24 21 - 30 MMOL/L Anion Gap 7 3 - 12 Glucose 224 (H) 70 - 100 MG/DL Blood Urea Nitrogen 52 (H) 7 - 25 MG/DL Creatinine 1.08 (H) 0.4 - 1.00 MG/DL Calcium 7.5 (L) 8.5 - 10.6 MG/DL eGFR Non 52 (L) >60 mL/min eGFR >60 >60 mL/min CBC AND DIFF Collection Time: 05/01/17 8:15 PM # # Low-High White Blood Cells 1.0 (L) 4.5 - 11.0 K/UL RBC 2.21 (L) 4.0 - 5.0 M/UL Hemoglobin 6.9 (L) 12.0 - 15.0 GM/DL Hematocrit 20.4 (L) 36 - 45 % MCV 92.1 80 - 100 FL MCH 31.3 26 - 34 PG MCHC 34.0 32.0 - 36.0 G/DL RDW 21.8 (H) 11 - 15 % Platelet Count 22 (LL) 150 - 400 K/UL MPV 9.6 7 - 11 FL Segmented Neutrophils 50 41 - 77 % Bands 3 0 - 10 % Lymphocytes 17 (L) 24 - 44 % Monocytes 20 (H) 4 - 12 % Blast 10 % ANISO PRESENT POIK PRESENT Ovalocyte PRESENT Platelet Estimate MKD DEC Absolute Neutrophil Count Manual 0.53 (L) 1.8 - 7.0 K/UL POC GLUCOSE Collection Time: 05/01/17 9:10 PM # # Low-High Glucose, POC 227 (H) 70 - 100 MG/DL POC GLUCOSE Collection Time: 05/02/17 4:21 AM # # Low-High Glucose, POC 189 (H) 70 - 100 MG/DL COMPREHENSIVE METABOLIC PANEL Collection Time: 05/02/17 4:25 AM # # Low-High Sodium 140 137 - 147 MMOL/L Potassium 4.4 3.5 - 5.1 MMOL/L Chloride 109 98 - 110 MMOL/L Glucose 197 (H) 70 - 100 MG/DL Blood Urea Nitrogen 48 (H) 7 - 25 MG/DL Creatinine 0.96 0.4 - 1.00 MG/DL Calcium 7.8 (L) 8.5 - 10.6 MG/DL Total Protein 5.6 (L) 6.0 - 8.0 G/DL Total Bilirubin 0.8 0.3 - 1.2 MG/DL Albumin 2.5 (L) 3.5 - 5.0 G/DL Alk Phosphatase 28 25 - 110 U/L AST (SGOT) 15 7 - 40 U/L CO2 26 21 - 30 MMOL/L ALT (SGPT) 12 7 - 56 U/L Anion Gap 5 3 - 12 eGFR Non 60 (L) >60 mL/min eGFR >60 >60 mL/min MAGNESIUM Collection Time: 05/02/17 4:25 AM # # Low-High Magnesium 2.1 1.6 - 2.6 mg/dL PHOSPHORUS Collection Time: 05/02/17 4:25 AM # # Low-High Phosphorus 5.7 (H) 2.0 - 4.0 MG/DL URIC ACID Collection Time: 05/02/17 4:25 AM # # Low-High Uric Acid 3.9 2.0 - 7.0 MG/DL CBC AND DIFF Collection Time: 05/02/17 4:25 AM # # Low-High White Blood Cells 1.1 (L) 4.5 - 11.0 K/UL RBC 2.68 (L) 4.0 - 5.0 M/UL Hemoglobin 8.4 (L) 12.0 - 15.0 GM/DL Hematocrit 24.7 (L) 36 - 45 % MCV 92.3 80 - 100 FL MCH 31.3 26 - 34 PG MCHC 33.9 32.0 - 36.0 G/DL RDW 19.2 (H) 11 - 15 % Platelet Count 25 (L) 150 - 400 K/UL MPV 9.8 7 - 11 FL Segmented Neutrophils 66 41 - 77 % Lymphocytes 16 (L) 24 - 44 % Monocytes 15 (H) 4 - 12 % Blast 3 % Ovalocyte PRESENT Platelet Estimate MKD DEC Absolute Neutrophil Count Manual 0.73 (L) 1.8 - 7.0 K/UL POC GLUCOSE Collection Time: 05/02/17 7:55 AM # # Low-High Glucose, POC 201 (H) 70 - 100 MG/DL POC GLUCOSE Collection Time: 05/02/17 11:12 AM # # Low-High Glucose, POC 204 (H) 70 - 100 MG/DL POC GLUCOSE Collection Time: 05/02/17 2:29 PM # # Low-High Glucose, POC 191 (H) 70 - 100 MG/DL POC GLUCOSE Collection Time: 05/02/17 3:57 PM # # Low-High Glucose, POC 184 (H) 70 - 100 MG/DL POC GLUCOSE Collection Time: 05/02/17 9:13 PM # # Low-High Glucose, POC 211 (H) 70 - 100 MG/DL POC GLUCOSE Collection Time: 05/03/17 3:16 AM # # Low-High Glucose, POC 182 (H) 70 - 100 MG/DL COMPREHENSIVE METABOLIC PANEL Collection Time: 05/03/17 3:20 AM # # Low-High Sodium 141 137 - 147 MMOL/L Potassium 3.9 3.5 - 5.1 MMOL/L Chloride 108 98 - 110 MMOL/L Glucose 176 (H) 70 - 100 MG/DL Blood Urea Nitrogen 47 (H) 7 - 25 MG/DL Creatinine 1.02 (H) 0.4 - 1.00 MG/DL Calcium 7.6 (L) 8.5 - 10.6 MG/DL Total Protein 5.3 (L) 6.0 - 8.0 G/DL Total Bilirubin 0.9 0.3 - 1.2 MG/DL Albumin 2.4 (L) 3.5 - 5.0 G/DL Alk Phosphatase 26 25 - 110 U/L AST (SGOT) 16 7 - 40 U/L CO2 29 21 - 30 MMOL/L ALT (SGPT) 16 7 - 56 U/L Anion Gap 4 3 - 12 eGFR Non 56 (L) >60 mL/min eGFR >60 >60 mL/min MAGNESIUM Collection Time: 05/03/17 3:20 AM # # Low-High Magnesium 1.9 1.6 - 2.6 mg/dL CBC AND DIFF Collection Time: 05/03/17 3:20 AM # # Low-High White Blood Cells 1.0 (L) 4.5 - 11.0 K/UL RBC 2.31 (L) 4.0 - 5.0 M/UL Hemoglobin 7.3 (L) 12.0 - 15.0 GM/DL Hematocrit 21.3 (L) 36 - 45 % MCV 92.4 80 - 100 FL MCH 31.7 26 - 34 PG MCHC 34.3 32.0 - 36.0 G/DL RDW 20.2 (H) 11 - 15 % Platelet Count 22 (LL) 150 - 400 K/UL MPV 9.1 7 - 11 FL Neutrophils 56 41 - 77 % Lymphocytes 41 24 - 44 % Monocytes 3 (L) 4 - 12 % Eosinophils 0 0 - 5 % Basophils 0 0 - 2 % Absolute Neutrophil Count 0.50 (L) 1.8 - 7.0 K/UL Absolute Lymph Count 0.40 (L) 1.0 - 4.8 K/UL Absolute Monocyte Count 0.00 0 - 0.80 K/UL Absolute Eosinophil Count 0.00 0 - 0.45 K/UL Absolute Basophil Count 0.00 0 - 0.20 K/UL Radiology Review: Pertinent radiology reviewed. Alisha Gregorio MD * Jacquelin Parikh, NEVA - 05/03/2017 6:24 AM CDT Shift: 7p-7a NEWS Score: 2015-2(supplemental O2) 2315-2(supplemental O2) 0321-2 (supplemental O2) Pain: no complaints of pain. Nutrition: ADA diet, good intake GI/: last BM 05/03, gonzalez to dd with clear yellow urine. Activity: Up with max assist. Family: None present this shift. Last Shower: bed bath 05/02 New Events or Follow-up: Potassium 3.9, Magnesium 1.9- replace per protocol. Remains on tele- a.fib * Jacquelin Parikh, NEVA - 05/03/2017 1:13 AM CDT Patient remains on telemetry in afib, rate controlled, patient had a 2.08 second pause 0058, Dr. Zhao notified. Orders received to hold atenolol in the am. Will continue to monitor patient * Ameena Meadows RN - 05/02/2017 3:47 PM CDT CHEMO NOTE Verified chemo consent signed and in chart. Verified initiate chemo order in O2 Blood return positive via: Right TL chest picc- white lumen Premedications/Prehydration given as ordered. BSA and dose double checked (agree with orders as written) with: Bryanna Spears, chemo cert RN Arm band verified at bedside with second RN (same RN as above unless otherwise noted). Labs/applicable tests checked: 05/02 Chemo drug/dose/route: Cytarabine 520 mg in NS hung TRO 24 hours. Rate 41.7 ml/hr Rate verified with second RN (same RN as above unless otherwise noted). Patient education offered and stated understanding * Bruno Duval MD - 05/02/2017 11:56 AM CDT Formatting of this note may be different from the original. 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 Cardiology consulted. - Monitor TLS labs and DIC labs daily - Start 7+3 04/28/2017, FLT3 ITD positive, will submit to add midostaurin - D5 of 7+3 Heme: - Anemia and thrombocytopenia due to underlying AML - Previously on anticoagulation with apixaban for Atrial fibrillation, will hold for now with thrombocytopenia - Anticoagulation with lovenox for DVT ppx contraindicated due to thrombocytopenia, SCD's when on bed FEN/Renal: - Creatinine improved. - Appreciate renal recommendations - Uric acid 8.1, received 1 dose of rasburicase - Continue allopurinol - Monitor electrolytes, will be high goal replacement with h/o atrial fibrillation - Close monitoring of fluid status - Will need Lasix daily until weight improves, give 80mg IV x1 today ID: - Presents with UTI and fever - Urine cx from [facility] 04/23: + E.Coli resistant to ampicillin, Bactrim, Nitrofurantoin. Intermediate resistance to gent and Unasyn. Susceptible to ceftriaxone, zosyn, meropenem, cipro and aztreonam - Blood cx x [address] [facility] 04/23: NGTD - Cefepime Day 10, had vancomycin and daptomycin on 04/24-04/25, discontinued, restart vanco if febrile. Needs to complete at least a 14 day course of cefepime for complicated UTI. - Has urinary catheter in place, did have urinary retention after trying to remove, will try again in one week after finishing antibiotics. Lots of sediment in urine and chronic UTI. - On prophylaxis with micafungin and acyclovir - Continue IV fluids/hydration. Monitor closely GI: - No nausea, vomiting or diarrhea - Low albumin. Liver functions normal - Obese, BMT>40 - Standing weights daily Endo: - Has type II DM, on glimiperide has been discontinued on admission - Had persistent low blood sugars, now blood sugars better - Endocrinology consultation obtained and appreciate recommendations CVS: - H/o atrial fibrillation, rate controlled. 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 Psych/Social: Pleasant, no issues - On alprazolam for anxiety, currently continued at low dose - Lives in [facility], , currently on disability, son lives in [facility] - Need to schedule family meeting to discuss future treatment course, had first discussion with and family friend on 04/28. Subjective: Giselle Moraes is a 56 y.o. female. Tolerating chemo very well. Feeling tired today. Review of Systems: Constitutional: + fatigue, fevers, chills, sweats/diaphoresis, maliase, anorexia , appetite change, weight change (loss) HEENT: Negative. No ear/ nose problems. Bleeding of lips due to dryness. No gum bleeding Respiratory: +cough, sputum, mild SOB Cardiovascular: Negative for chest pain, chest pressure, palpitations, edema in extremeties Gastrointestional: diarrhea intermittent. No abdominal pain/ nausea or vomiting Gernitourinary: + dysuria, no hematuria Musculoskeletal:Negative Skin: Negative Psych: + anxiety Objective: Medications: Scheduled Meds: acyclovir (ZOVIRAX) tablet 400 mg 400 mg Oral BID allopurinol (ZYLOPRIM) tablet 300 mg 300 mg Oral QDAY atenolol (TENORMIN) tablet 25 mg 25 mg Oral QDAY cefepime (MAXIPIME) 2 g/100 ml iso-osmotic IVPB 2 g Intravenous Q12H* [START ON 05/03/2017] cytarabine (CYTOSAR) 520 mg in sodium chloride 0.9% (NS) 1 ,000 mL IVPB(C100) 200 mg/m2 (Treatment Plan Recorded) Intravenous ONCE cytarabine (CYTOSAR) 520 mg in sodium chloride 0.9% (NS) 1,000 mL IVPB(C100) 200 mg/m2 (Treatment Plan Recorded) Intravenous ONCE cytarabine (CYTOSAR) 520 mg in sodium chloride 0.9% (NS) 1,000 mL IVPB(C100) 200 mg/m2 (Treatment Plan Recorded) Intravenous ONCE diltiazem CD (cardIZEM CD) capsule 240 mg 240 mg Oral QDAY furosemide (LASIX) injection 80 mg 80 mg Intravenous ONCE insulin aspart (NOVOLOG FLEXPEN) injection PEN 0-14 Units 0-14 Units Subcutaneous ACHS insulin aspart (NOVOLOG FLEXPEN) injection PEN 6 Units 6 Units Subcutaneous TID w/ meals insulin glargine (LANTUS SOLOSTAR) injection PEN 12 Units 12 Units Subcutaneous QDAY(12) micafungin (MYCAMINE) 50 mg in sodium chloride 0.9% (NS) 105 mL IVPB 50 mg Intravenous Q24H* ondansetron (ZOFRAN) tablet 16 mg 16 mg Oral Q24H* polyethylene glycol 3350 (MIRALAX) packet 17 g 1 packet Oral QDAY senna (SENOKOT) tablet 1 tablet 1 tablet Oral BID Continuous Infusions: sodium chloride 0.9 % infusion 150 mL/hr at 05/02/17 0428 PRN and Respiratory Meds:acetaminophen Q6H PRN, ALPRAZolam BID PRN, alteplase PRN (Compliance Representative from Rx), LORazepam Q6H PRN, LORazepam injection Q6H PRN, magnesium sulfate 4 g/50 mL PRN, milk of magnesia (CONC) Q6H PRN, potassium chloride PRN (Compliance Representative from Rx) OR potassium chloride SR PRN (Compliance Representative from Rx ), saliva, synthetic PRN, sodium chloride 0.9% irrigation bottle PRN Vital Signs: Last Filed Vital Signs: 24 Hour Range BP: 123/62 (05/02 1149) Temp: 36.3 C (97.3 F) (05/02 1149) Pulse: 76 (05/02 1149) Respirations: 18 PER MINUTE (05/02 1149) SpO2: 98 % (05/02 1149) O2 Delivery: Nasal Cannula (05/02 1149) BP: (114-134)/(56-79) Temp: [36.3 C (97.3 F)-37.1 C (98.7 F)] Pulse: [68-117] Respirations: [14 PER MINUTE-20 PER MINUTE] SpO2: [98 %-100 %] O2 Delivery: Nasal Cannula Intensity Pain Scale 0-10 (Pain 1): (not recorded) Vitals: 04/29/17 1250 04/30/17 1500 05/01/17 1300 Weight: (!) 137.1 kg (302 lb 3.2 oz) (!) 145.2 kg (320 lb 1.9 oz) (!) 150.1 kg ( 331 lb) Intake/Output Summary: (Last 24 hours) Intake/Output Summary (Last 24 hours) at 05/02/17 1316 Last data filed at 05/02/17 1150 Gross per 24 hour Intake 6554 ml Output 5400 ml Net 1154 ml Physical Exam: Performance Status (Karnofsky): 40% Disabled, requires special care and assistance General: awake & oriented, no acute distress, appears stated age, Morbidly obese HENT: normocephalic, atraumatic, non-icteric, clear conjunctivae, no adenopathy. Mild bleeding/ clotted blood onlips, no oral bleeding or gum bleeding Eyes: Conjunctuvae clear. PERRL, EOMs intact. CV: S1, S2, regular rhythm and rate, no murmur, click, rub Lungs: clear to ausculation bilaterally, non-labored Abdomen: Obese abdomen, soft, non-tender, non-distended, normo-active bowel sounds. Has indwelling catheter Extremities: no edema, cyanosis, pulses Skin: Warm & dry. Skin color, turgor normal. No rahses or lesions Neuro: drowsy but arousable and obeys all command, oriented to person, place and time. No focal deficits; normal muscle strength- normal Psych: Normal mood and affect. Judgment and thought content normal. Lab Review: Results for orders placed or performed during the hospital encounter of (from the past 48 hour(s)) POC GLUCOSE Collection Time: 04/30/17 5:02 PM # # Low-High Glucose, POC 208 (H) 70 - 100 MG/DL PHOSPHORUS Collection Time: 04/30/17 7:45 PM # # Low-High Phosphorus 5.8 (H) 2.0 - 4.0 MG/DL FIBRINOGEN Collection Time: 04/30/17 7:45 PM # # Low-High Fibrinogen 235 200 - 400 MG/DL URIC ACID Collection Time: 04/30/17 7:45 PM # # Low-High Uric Acid 3.7 2.0 - 7.0 MG/DL PTT (APTT) Collection Time: 04/30/17 7:45 PM # # Low-High APTT 18.3 (L) 21.0 - 39.0 SEC PROTIME INR (PT) Collection Time: 04/30/17 7:45 PM # # Low-High INR 1.3 (H) 0.8 - 1.2 BASIC METABOLIC PANEL Collection Time: 04/30/17 7:45 PM # # Low-High Sodium 136 (L) 137 - 147 MMOL/L Potassium 4.3 3.5 - 5.1 MMOL/L Chloride 107 98 - 110 MMOL/L CO2 21 21 - 30 MMOL/L Anion Gap 8 3 - 12 Glucose 280 (H) 70 - 100 MG/DL Blood Urea Nitrogen 43 (H) 7 - 25 MG/DL Creatinine 1.15 (H) 0.4 - 1.00 MG/DL Calcium 7.6 (L) 8.5 - 10.6 MG/DL eGFR Non 48 (L) >60 mL/min eGFR 59 (L) >60 mL/min CBC AND DIFF Collection Time: 04/30/17 7:45 PM # # Low-High White Blood Cells 1.7 (L) 4.5 - 11.0 K/UL RBC 2.18 (L) 4.0 - 5.0 M/UL Hemoglobin 6.8 (L) 12.0 - 15.0 GM/DL Hematocrit 20.3 (L) 36 - 45 % MCV 93.3 80 - 100 FL MCH 31.4 26 - 34 PG MCHC 33.7 32.0 - 36.0 G/DL RDW 24.0 (H) 11 - 15 % Platelet Count 7 (LL) 150 - 400 K/UL MPV 11.7 (H) 7 - 11 FL Nucleated RBCs 2 K/UL Segmented Neutrophils 51 41 - 77 % Lymphocytes 17 (L) 24 - 44 % Monocytes 13 (H) 4 - 12 % Blast 19 % ANISO PRESENT POIK PRESENT Ovalocyte PRESENT Platelet Estimate MKD DEC Absolute Neutrophil Count Manual 0.87 (L) 1.8 - 7.0 K/UL POC GLUCOSE Collection Time: 04/30/17 8:43 PM # # Low-High Glucose, POC 280 (H) 70 - 100 MG/DL PREPARE APHERESIS PLATELETS Collection Time: 04/30/17 10:07 PM # # Low-High Units Ordered 1 Unit Number [id number] Blood Component Type APHERESIS PLT,LEUKO REDUCED,IRRADIATED,1ST CONT. Unit Division 0 Status OF Unit TRANSFUSED Transfusion Status OK TO TRANSFUSE POC GLUCOSE Collection Time: 05/01/17 4:11 AM # # Low-High Glucose, POC 238 (H) 70 - 100 MG/DL LDH-LACTATE DEHYDROGENASE Collection Time: 05/01/17 5:15 AM # # Low-High Lactate Dehydrogenase 416 (H) 100 - 210 U/L COMPREHENSIVE METABOLIC PANEL Collection Time: 05/01/17 5:15 AM # # Low-High Sodium 138 137 - 147 MMOL/L Potassium 4.6 3.5 - 5.1 MMOL/L Chloride 108 98 - 110 MMOL/L Glucose 234 (H) 70 - 100 MG/DL Blood Urea Nitrogen 46 (H) 7 - 25 MG/DL Creatinine 0.98 0.4 - 1.00 MG/DL Calcium 7.6 (L) 8.5 - 10.6 MG/DL Total Protein 6.1 6.0 - 8.0 G/DL Total Bilirubin 0.8 0.3 - 1.2 MG/DL Albumin 2.7 (L) 3.5 - 5.0 G/DL Alk Phosphatase 31 25 - 110 U/L AST (SGOT) 11 7 - 40 U/L CO2 22 21 - 30 MMOL/L ALT (SGPT) 8 7 - 56 U/L Anion Gap 8 3 - 12 eGFR Non 58 (L) >60 mL/min eGFR >60 >60 mL/min MAGNESIUM Collection Time: 05/01/17 5:15 AM # # Low-High Magnesium 2.0 1.6 - 2.6 mg/dL PHOSPHORUS Collection Time: 05/01/17 5:15 AM # # Low-High Phosphorus 6.4 (H) 2.0 - 4.0 MG/DL FIBRINOGEN Collection Time: 05/01/17 5:15 AM # # Low-High Fibrinogen 245 200 - 400 MG/DL URIC ACID Collection Time: 05/01/17 5:15 AM # # Low-High Uric Acid 3.7 2.0 - 7.0 MG/DL PTT (APTT) Collection Time: 05/01/17 5:15 AM # # Low-High APTT 19.7 (L) 21.0 - 39.0 SEC PROTIME INR (PT) Collection Time: 05/01/17 5:15 AM # # Low-High INR 1.1 0.8 - 1.2 CBC AND DIFF Collection Time: 05/01/17 5:15 AM # # Low-High White Blood Cells 2.3 (L) 4.5 - 11.0 K/UL RBC 2.77 (L) 4.0 - 5.0 M/UL Hemoglobin 8.8 (L) 12.0 - 15.0 GM/DL Hematocrit 25.7 (L) 36 - 45 % MCV 92.7 80 - 100 FL MCH 31.8 26 - 34 PG MCHC 34.2 32.0 - 36.0 G/DL RDW 21.3 (H) 11 - 15 % Platelet Count 26 (L) 150 - 400 K/UL MPV 9.3 7 - 11 FL Nucleated RBCs 2 K/UL Segmented Neutrophils 60 41 - 77 % Bands 1 0 - 10 % Lymphocytes 8 (L) 24 - 44 % Monocytes 13 (H) 4 - 12 % Metamyelocyte 2 % Blast 16 % ANISO PRESENT POIK PRESENT POLY PRESENT Ovalocyte PRESENT Platelet Estimate MKD DEC Absolute Neutrophil Count Manual 1.40 (L) 1.8 - 7.0 K/UL POC GLUCOSE Collection Time: 05/01/17 10:30 AM # # Low-High Glucose, POC 274 (H) 70 - 100 MG/DL PHOSPHORUS Collection Time: 05/01/17 12:03 PM # # Low-High Phosphorus 6.3 (H) 2.0 - 4.0 MG/DL FIBRINOGEN Collection Time: 05/01/17 12:03 PM # # Low-High Fibrinogen 214 200 - 400 MG/DL URIC ACID Collection Time: 05/01/17 12:03 PM # # Low-High Uric Acid 3.7 2.0 - 7.0 MG/DL PTT (APTT) Collection Time: 05/01/17 12:03 PM # # Low-High APTT 22.6 21.0 - 39.0 SEC PROTIME INR (PT) Collection Time: 05/01/17 12:03 PM # # Low-High INR 1.1 0.8 - 1.2 BASIC METABOLIC PANEL Collection Time: 05/01/17 12:03 PM # # Low-High Sodium 138 137 - 147 MMOL/L Potassium 4.9 3.5 - 5.1 MMOL/L Chloride 109 98 - 110 MMOL/L CO2 21 21 - 30 MMOL/L Anion Gap 8 3 - 12 Glucose 299 (H) 70 - 100 MG/DL Blood Urea Nitrogen 47 (H) 7 - 25 MG/DL Creatinine 1.03 (H) 0.4 - 1.00 MG/DL Calcium 7.7 (L) 8.5 - 10.6 MG/DL eGFR Non 55 (L) >60 mL/min eGFR >60 >60 mL/min CBC AND DIFF Collection Time: 05/01/17 12:03 PM # # Low-High White Blood Cells 1.7 (L) 4.5 - 11.0 K/UL RBC 2.36 (L) 4.0 - 5.0 M/UL Hemoglobin 7.3 (L) 12.0 - 15.0 GM/DL Hematocrit 22.2 (L) 36 - 45 % MCV 94.0 80 - 100 FL MCH 31.0 26 - 34 PG MCHC 33.0 32.0 - 36.0 G/DL RDW 21.8 (H) 11 - 15 % Platelet Count 23 (LL) 150 - 400 K/UL MPV 9.0 7 - 11 FL Neutrophils 57 41 - 77 % Lymphocytes 13 (L) 24 - 44 % Monocytes 30 (H) 4 - 12 % Eosinophils 0 0 - 5 % Basophils 0 0 - 2 % Absolute Neutrophil Count 0.90 (L) 1.8 - 7.0 K/UL Absolute Lymph Count 0.20 (L) 1.0 - 4.8 K/UL Absolute Monocyte Count 0.50 0 - 0.80 K/UL Absolute Eosinophil Count 0.00 0 - 0.45 K/UL Absolute Basophil Count 0.00 0 - 0.20 K/UL MANUAL DIFF Collection Time: 05/01/17 12:03 PM # # Low-High Segmented Neutrophils 45 41 - 77 % Bands 2 0 - 10 % Lymphocytes 18 (L) 24 - 44 % Monocytes 20 (H) 4 - 12 % Metamyelocyte 2 % Myelocyte 1 % Blast 12 % Platelet Estimate MKD DEC RBC Morph ANISO POIK OVALO POC GLUCOSE Collection Time: 05/01/17 12:38 PM # # Low-High Glucose, POC 271 (H) 70 - 100 MG/DL POC GLUCOSE Collection Time: 05/01/17 4:49 PM # # Low-High Glucose, POC 243 (H) 70 - 100 MG/DL PHOSPHORUS Collection Time: 05/01/17 8:15 PM # # Low-High Phosphorus 5.2 (H) 2.0 - 4.0 MG/DL URIC ACID Collection Time: 05/01/17 8:15 PM # # Low-High Uric Acid 4.0 2.0 - 7.0 MG/DL BASIC METABOLIC PANEL Collection Time: 05/01/17 8:15 PM # # Low-High Sodium 138 137 - 147 MMOL/L Potassium 3.8 3.5 - 5.1 MMOL/L Chloride 107 98 - 110 MMOL/L CO2 24 21 - 30 MMOL/L Anion Gap 7 3 - 12 Glucose 224 (H) 70 - 100 MG/DL Blood Urea Nitrogen 52 (H) 7 - 25 MG/DL Creatinine 1.08 (H) 0.4 - 1.00 MG/DL Calcium 7.5 (L) 8.5 - 10.6 MG/DL eGFR Non 52 (L) >60 mL/min eGFR >60 >60 mL/min CBC AND DIFF Collection Time: 05/01/17 8:15 PM # # Low-High White Blood Cells 1.0 (L) 4.5 - 11.0 K/UL RBC 2.21 (L) 4.0 - 5.0 M/UL Hemoglobin 6.9 (L) 12.0 - 15.0 GM/DL Hematocrit 20.4 (L) 36 - 45 % MCV 92.1 80 - 100 FL MCH 31.3 26 - 34 PG MCHC 34.0 32.0 - 36.0 G/DL RDW 21.8 (H) 11 - 15 % Platelet Count 22 (LL) 150 - 400 K/UL MPV 9.6 7 - 11 FL Segmented Neutrophils 50 41 - 77 % Bands 3 0 - 10 % Lymphocytes 17 (L) 24 - 44 % Monocytes 20 (H) 4 - 12 % Blast 10 % ANISO PRESENT POIK PRESENT Ovalocyte PRESENT Platelet Estimate MKD DEC Absolute Neutrophil Count Manual 0.53 (L) 1.8 - 7.0 K/UL POC GLUCOSE Collection Time: 05/01/17 9:10 PM # # Low-High Glucose, POC 227 (H) 70 - 100 MG/DL POC GLUCOSE Collection Time: 05/02/17 4:21 AM # # Low-High Glucose, POC 189 (H) 70 - 100 MG/DL COMPREHENSIVE METABOLIC PANEL Collection Time: 05/02/17 4:25 AM # # Low-High Sodium 140 137 - 147 MMOL/L Potassium 4.4 3.5 - 5.1 MMOL/L Chloride 109 98 - 110 MMOL/L Glucose 197 (H) 70 - 100 MG/DL Blood Urea Nitrogen 48 (H) 7 - 25 MG/DL Creatinine 0.96 0.4 - 1.00 MG/DL Calcium 7.8 (L) 8.5 - 10.6 MG/DL Total Protein 5.6 (L) 6.0 - 8.0 G/DL Total Bilirubin 0.8 0.3 - 1.2 MG/DL Albumin 2.5 (L) 3.5 - 5.0 G/DL Alk Phosphatase 28 25 - 110 U/L AST (SGOT) 15 7 - 40 U/L CO2 26 21 - 30 MMOL/L ALT (SGPT) 12 7 - 56 U/L Anion Gap 5 3 - 12 eGFR Non 60 (L) >60 mL/min eGFR >60 >60 mL/min MAGNESIUM Collection Time: 05/02/17 4:25 AM # # Low-High Magnesium 2.1 1.6 - 2.6 mg/dL PHOSPHORUS Collection Time: 05/02/17 4:25 AM # # Low-High Phosphorus 5.7 (H) 2.0 - 4.0 MG/DL URIC ACID Collection Time: 05/02/17 4:25 AM # # Low-High Uric Acid 3.9 2.0 - 7.0 MG/DL CBC AND DIFF Collection Time: 05/02/17 4:25 AM # # Low-High White Blood Cells 1.1 (L) 4.5 - 11.0 K/UL RBC 2.68 (L) 4.0 - 5.0 M/UL Hemoglobin 8.4 (L) 12.0 - 15.0 GM/DL Hematocrit 24.7 (L) 36 - 45 % MCV 92.3 80 - 100 FL MCH 31.3 26 - 34 PG MCHC 33.9 32.0 - 36.0 G/DL RDW 19.2 (H) 11 - 15 % Platelet Count 25 (L) 150 - 400 K/UL MPV 9.8 7 - 11 FL Segmented Neutrophils 66 41 - 77 % Lymphocytes 16 (L) 24 - 44 % Monocytes 15 (H) 4 - 12 % Blast 3 % Ovalocyte PRESENT Platelet Estimate MKD DEC Absolute Neutrophil Count Manual 0.73 (L) 1.8 - 7.0 K/UL POC GLUCOSE Collection Time: 05/02/17 7:55 AM # # Low-High Glucose, POC 201 (H) 70 - 100 MG/DL POC GLUCOSE Collection Time: 05/02/17 11:12 AM # # Low-High Glucose, POC 204 (H) 70 - 100 MG/DL Radiology Review: Pertinent radiology reviewed. Bruno Duval MD * Jogre Oakes, NEVA - 05/02/2017 7:59 AM CDT Shift: 7pm - 7am NEWS Score: 2145 - 2 (Supplemental oxygen) 2315 - 2 (Supplemental oxygen) 0228 - 2 (Supplemental oxygen) Pain: Pt denies pain this shift. Nutrition: ADA diet. Good appetite. GI/: Last BM 04/29. (Senna is given) Gonzalez in place. Ene and clear urine. Adequate U/O. Activity: Up with x3. Family: Family not present this shift. Last Shower: Sponge bath 05/01. New Events or Follow-up: Hgb 6.9 - Pt got PRBC during this shift. Education is given to patient about turning to prevent pressure ulcer and patient verbalized understanding, but patient refused. * Jacquelin Parikh RN - 05/02/2017 7:54 AM CDT I have reviewed the notes, assessments, and/or procedures performed by Jorge Oakes RN and concur with her documentation unless otherwise noted. * Carolynn López RN - 05/01/2017 6:24 PM CDT Shift: Day NEWS Score: 4 (O2 sat, NC)-0-0 Pain: no reports this shift Nutrition: ADA, pt eating and drinking very well GI/: LBM 04/29 (refusing stool softeners), voiding pink yellow urine, 80 IV lasix given Activity: UW2 (to reposition in bed), UW3 to chair this shift, pt sat in chair for 2 hours Family: at bedside, supportive Last Shower: 05/01 * Carolynn López RN - 05/01/2017 2:58 PM CDT CHEMO NOTE Verified chemo consent signed and in chart. Verified initiate chemo order in O2 Blood return positive via: white lumen right chest PICC Premedications/Prehydration given as ordered. BSA and dose double checked (agree with orders as written) with: moira hart rn Arm band verified at bedside with second RN (same RN as above unless otherwise noted). Labs/applicable tests checked: labs 04/30/17 Chemo drug/dose/route: cytarabine (CYTOSAR) 520 mg in sodium chloride 0.9% (NS) 1,000 mL IVPB(C100) : Dose 200 mg/m2 2.6 m2 (Treatment Plan Recorded) : Admin Dose 520 mg : 41.7 mL/hr : Intravenous TRO 24 hours Rate verified with second RN (same RN as above unless otherwise noted). Patient education offered and stated understanding * Gordon Del Real DO - 05/01/2017 12:32 PM CDT Formatting of this note may be different from the original. Patient chart reviewed but not examined. Glucose, POC Date/Time Value Ref Range Status 05/01/2017 1030 274 (H) 70 - 100 MG/DL Final 05/01/2017 0411 238 (H) 70 - 100 MG/DL Final 04/30/2017 2043 280 (H) 70 - 100 MG/DL Final 04/30/2017 1702 208 (H) 70 - 100 MG/DL Final 04/30/2017 1202 214 (H) 70 - 100 MG/DL Final 04/30/2017 0717 239 (H) 70 - 100 MG/DL Final 04/29/2017 2056 274 (H) 70 - 100 MG/DL Final 04/29/2017 1632 222 (H) 70 - 100 MG/DL Final Assessment: Type 2 diabetes mellitus: A1c unknown, ordered [employer] regimen: Glimepiride 4 mg daily Hypoglycemic episodes on this regimen: Unknown Follows up with for diabetes management: PCP Diabetic-complications assessment: Retinopathy: Last eye exam 2 years back, no retinopathy Peripheral neuropathy: Yes Autonomic neuropathy: No Nephropathy: Yes Macrovascular complications: No Risk factor assessment: Last lipid profile -none in chart On ACEi/ARB?:No On Statin?: No Recurrent hypoglycemia: Last dose of glimepiride 4 mg was on 04/23 in the morning, at home. Recurrent UTI Acute leukemia A. fib CKD stage III Recommendations: - increase antus 12 units daily from 10U - continue aspart 6 units with meals - continue MDCF - plan to possibly restart glimepiride lower dose at discharge. Patient discussed with attending physician. Gordon Del Real DO PGY3 - Internal Medicine *[phone] * Bruno Duval MD - 05/01/2017 11:03 AM CDT Formatting of this note may be different from the original. 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 Cardiology consulted. - Monitor TLS labs and DIC labs daily - Start 7+3 04/28/2017, FLT3 ITD positive, will submit to add midostaurin - D4 of 7+3 Heme: - Anemia and thrombocytopenia due to underlying AML - Previously on anticoagulation with apixaban for Atrial fibrillation, will hold for now with thrombocytopenia - Anticoagulation with lovenox for DVT ppx contraindicated due to thrombocytopenia, SCD's when on bed FEN/Renal: - Creatinine improved. - Appreciate renal recommendations - Uric acid 8.1, received 1 dose of rasburicase - Continue allopurinol - Monitor electrolytes, will be high goal replacement with h/o atrial fibrillation - Close monitoring of fluid status - Will need Lasix daily until weight improves, give 80mg IV x1 today ID: - Presents with UTI and fever - Urine cx from [address] 04/23: + E.Coli resistant to ampicillin, Bactrim, Nitrofurantoin. Intermediate resistance to gent and Unasyn. Susceptible to ceftriaxone, zosyn, meropenem, cipro and aztreonam - Blood cx x [address] 04/23: NGTD - Cefepime Day 9, had vancomycin and daptomycin on 04/24-04/25, discontinued, restart vanco if febrile. Needs to complete at least a 14 day course of cefepime for complicated UTI. - Has urinary catheter in place, did have urinary retention after trying to remove, will try again in one week - On prophylaxis with micafungin and acyclovir - Continue IV fluids/hydration. Monitor closely GI: - No nausea, vomiting or diarrhea - Low albumin. Liver functions normal - Obese, BMT>40 - Standing weights daily Endo: - Has type II DM, on glimiperide has been discontinued on admission - Had persistent low blood sugars, now blood sugars better - Endocrinology consultation obtained and appreciate recommendations CVS: - H/o atrial fibrillation, rate controlled. 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 Psych/Social: Pleasant, no issues - On alprazolam for anxiety, currently continued at low dose - Lives in [facility], , currently on disability, son lives in [facility] - Need to schedule family meeting to discuss future treatment course, had first discussion with and family friend on 04/28. Subjective: Giselle Moraes is a 56 y.o. female. Tolerating chemo very well. Review of Systems: Constitutional: + fatigue, fevers, chills, sweats/diaphoresis, maliase, anorexia , appetite change, weight change (loss) HEENT: Negative. No ear/ nose problems. Bleeding of lips due to dryness. No gum bleeding Respiratory: +cough, sputum, mild SOB Cardiovascular: Negative for chest pain, chest pressure, palpitations, edema in extremeties Gastrointestional: diarrhea intermittent. No abdominal pain/ nausea or vomiting Gernitourinary: + dysuria, no hematuria Musculoskeletal:Negative Skin: Negative Psych: + anxiety Objective: Medications: Scheduled Meds: acyclovir (ZOVIRAX) tablet 400 mg 400 mg Oral BID allopurinol (ZYLOPRIM) tablet 300 mg 300 mg Oral QDAY atenolol (TENORMIN) tablet 25 mg 25 mg Oral QDAY cefepime (MAXIPIME) 2 g/100 ml iso-osmotic IVPB 2 g Intravenous Q12H* [START ON 05/02/2017] cytarabine (CYTOSAR) 520 mg in sodium chloride 0.9% (NS) 1 ,000 mL IVPB(C100) 200 mg/m2 (Treatment Plan Recorded) Intravenous ONCE cytarabine (CYTOSAR) 520 mg in sodium chloride 0.9% (NS) 1,000 mL IVPB(C100) 200 mg/m2 (Treatment Plan Recorded) Intravenous ONCE cytarabine (CYTOSAR) 520 mg in sodium chloride 0.9% (NS) 1,000 mL IVPB(C100) 200 mg/m2 (Treatment Plan Recorded) Intravenous ONCE diltiazem CD (cardIZEM CD) capsule 240 mg 240 mg Oral QDAY furosemide (LASIX) injection 80 mg 80 mg Intravenous ONCE insulin aspart (NOVOLOG FLEXPEN) injection PEN 0-14 Units 0-14 Units Subcutaneous ACHS insulin aspart (NOVOLOG FLEXPEN) injection PEN 6 Units 6 Units Subcutaneous TID w/ meals insulin glargine (LANTUS SOLOSTAR) injection PEN 12 Units 12 Units Subcutaneous QDAY(12) micafungin (MYCAMINE) 50 mg in sodium chloride 0.9% (NS) 105 mL IVPB 50 mg Intravenous Q24H* ondansetron (ZOFRAN) tablet 16 mg 16 mg Oral Q24H* polyethylene glycol 3350 (MIRALAX) packet 17 g 1 packet Oral QDAY senna (SENOKOT) tablet 1 tablet 1 tablet Oral BID Continuous Infusions: sodium chloride 0.9 % infusion 150 mL/hr at 05/01/17 0512 PRN and Respiratory Meds:acetaminophen Q6H PRN, ALPRAZolam BID PRN, alteplase PRN (Compliance Representative from Rx), LORazepam Q6H PRN, LORazepam injection Q6H PRN, magnesium sulfate 4 g/50 mL PRN, milk of magnesia (CONC) Q6H PRN, potassium chloride PRN (Compliance Representative from Rx) OR potassium chloride SR PRN (Compliance Representative from Rx ), saliva, synthetic PRN, sodium chloride 0.9% irrigation bottle PRN Vital Signs: Last Filed Vital Signs: 24 Hour Range BP: 139/66 (05/01 825) Temp: 35.6 C (96.1 F) (05/01 825) Pulse: 78 (05/01 825) Respirations: 18 PER MINUTE (05/01 825) SpO2: 98 % (05/01 1055) O2 Delivery: None (Room Air) (05/01 1055) SpO2 Pulse: 95 (04/30 2222) BP: (111-151)/(49-84) Temp: [35.6 C (96.1 F)-36.8 C (98.2 F)] Pulse: [62-92] Respirations: [14 PER MINUTE-20 PER MINUTE] SpO2: [90 %-100 %] O2 Delivery: None (Room Air) Intensity Pain Scale 0-10 (Pain 1): (not recorded) Vitals: 04/28/17 0904 04/29/17 1250 04/30/17 1500 Weight: (!) 143.2 kg (315 lb 9.6 oz) (!) 137.1 kg (302 lb 3.2 oz) (!) 145.2 kg ( 320 lb 1.9 oz) Intake/Output Summary: (Last 24 hours) Intake/Output Summary (Last 24 hours) at 05/01/17 1103 Last data filed at 05/01/17 1000 Gross per 24 hour Intake 6737.33 ml Output 4875 ml Net 1862.33 ml Physical Exam: Performance Status (Karnofsky): 40% Disabled, requires special care and assistance General: awake & oriented, no acute distress, appears stated age, Morbidly obese HENT: normocephalic, atraumatic, non-icteric, clear conjunctivae, no adenopathy. Mild bleeding/ clotted blood onlips, no oral bleeding or gum bleeding Eyes: Conjunctuvae clear. PERRL, EOMs intact. CV: S1, S2, regular rhythm and rate, no murmur, click, rub Lungs: clear to ausculation bilaterally, non-labored Abdomen: Obese abdomen, soft, non-tender, non-distended, normo-active bowel sounds. Has indwelling catheter Extremities: no edema, cyanosis, pulses Skin: Warm & dry. Skin color, turgor normal. No rahses or lesions Neuro: drowsy but arousable and obeys all command, oriented to person, place and time. No focal deficits; normal muscle strength- normal Psych: Normal mood and affect. Judgment and thought content normal. Lab Review: Results for orders placed or performed during the hospital encounter of (from the past 48 hour(s)) PHOSPHORUS Collection Time: 04/29/17 11:28 AM # # Low-High Phosphorus 3.2 2.0 - 4.0 MG/DL FIBRINOGEN Collection Time: 04/29/17 11:28 AM # # Low-High Fibrinogen 388 200 - 400 MG/DL URIC ACID Collection Time: 04/29/17 11:28 AM # # Low-High Uric Acid 3.4 2.0 - 7.0 MG/DL PTT (APTT) Collection Time: 04/29/17 11:28 AM # # Low-High APTT 18.7 (L) 21.0 - 39.0 SEC PROTIME INR (PT) Collection Time: 04/29/17 11:28 AM # # Low-High INR 1.3 (H) 0.8 - 1.2 BASIC METABOLIC PANEL Collection Time: 04/29/17 11:28 AM # # Low-High Sodium 137 137 - 147 MMOL/L Potassium 4.5 3.5 - 5.1 MMOL/L Chloride 108 98 - 110 MMOL/L CO2 22 21 - 30 MMOL/L Anion Gap 7 3 - 12 Glucose 227 (H) 70 - 100 MG/DL Blood Urea Nitrogen 28 (H) 7 - 25 MG/DL Creatinine 1.01 (H) 0.4 - 1.00 MG/DL Calcium 8.2 (L) 8.5 - 10.6 MG/DL eGFR Non 56 (L) >60 mL/min eGFR >60 >60 mL/min CBC AND DIFF Collection Time: 04/29/17 11:28 AM # # Low-High White Blood Cells 24.0 (H) 4.5 - 11.0 K/UL RBC 2.48 (L) 4.0 - 5.0 M/UL Hemoglobin 8.1 (L) 12.0 - 15.0 GM/DL Hematocrit 23.2 (L) 36 - 45 % MCV 93.8 80 - 100 FL MCH 32.9 26 - 34 PG MCHC 35.1 32.0 - 36.0 G/DL RDW 23.0 (H) 11 - 15 % Platelet Count 17 (LL) 150 - 400 K/UL MPV 11.0 7 - 11 FL Segmented Neutrophils 27 (L) 41 - 77 % Bands 3 0 - 10 % Lymphocytes 22 (L) 24 - 44 % Monocytes 21 (H) 4 - 12 % Promyelocyte 1 % Blast 26 % ANISO PRESENT POIK PRESENT POLY PRESENT Platelet Estimate MKD DEC Absolute Neutrophil Count Manual 7.20 (H) 1.8 - 7.0 K/UL POC GLUCOSE Collection Time: 04/29/17 12:32 PM # # Low-High Glucose, POC 259 (H) 70 - 100 MG/DL POC GLUCOSE Collection Time: 04/29/17 4:32 PM # # Low-High Glucose, POC 222 (H) 70 - 100 MG/DL PHOSPHORUS Collection Time: 04/29/17 8:03 PM # # Low-High Phosphorus 3.9 2.0 - 4.0 MG/DL URIC ACID Collection Time: 04/29/17 8:03 PM # # Low-High Uric Acid 3.5 2.0 - 7.0 MG/DL BASIC METABOLIC PANEL Collection Time: 04/29/17 8:03 PM # # Low-High Sodium 137 137 - 147 MMOL/L Potassium 4.2 3.5 - 5.1 MMOL/L Chloride 109 98 - 110 MMOL/L CO2 22 21 - 30 MMOL/L Anion Gap 6 3 - 12 Glucose 264 (H) 70 - 100 MG/DL Blood Urea Nitrogen 32 (H) 7 - 25 MG/DL Creatinine 1.07 (H) 0.4 - 1.00 MG/DL Calcium 7.6 (L) 8.5 - 10.6 MG/DL eGFR Non 53 (L) >60 mL/min eGFR >60 >60 mL/min CBC AND DIFF Collection Time: 04/29/17 8:03 PM # # Low-High White Blood Cells 7.5 4.5 - 11.0 K/UL RBC 2.07 (L) 4.0 - 5.0 M/UL Hemoglobin 6.7 (L) 12.0 - 15.0 GM/DL Hematocrit 19.6 (L) 36 - 45 % MCV 94.5 80 - 100 FL MCH 32.6 26 - 34 PG MCHC 34.4 32.0 - 36.0 G/DL RDW 22.9 (H) 11 - 15 % Platelet Count 11 (LL) 150 - 400 K/UL MPV 10.2 7 - 11 FL Segmented Neutrophils 22 (L) 41 - 77 % Bands 2 0 - 10 % Lymphocytes 26 24 - 44 % Monocytes 15 (H) 4 - 12 % Metamyelocyte 1 % Blast 34 % ANISO PRESENT Absolute Neutrophil Count Manual 1.80 1.8 - 7.0 K/UL POC GLUCOSE Collection Time: 04/29/17 8:56 PM # # Low-High Glucose, POC 274 (H) 70 - 100 MG/DL CBC AND DIFF Collection Time: 04/29/17 10:55 PM # # Low-High White Blood Cells 8.8 4.5 - 11.0 K/UL RBC 2.17 (L) 4.0 - 5.0 M/UL Hemoglobin 7.1 (L) 12.0 - 15.0 GM/DL Hematocrit 20.5 (L) 36 - 45 % MCV 94.6 80 - 100 FL MCH 32.8 26 - 34 PG MCHC 34.6 32.0 - 36.0 G/DL RDW 23.9 (H) 11 - 15 % Platelet Count 12 (LL) 150 - 400 K/UL MPV 10.4 7 - 11 FL Segmented Neutrophils 40 (L) 41 - 77 % Bands 2 0 - 10 % Lymphocytes 23 (L) 24 - 44 % Monocytes 13 (H) 4 - 12 % Blast 22 % ANISO PRESENT Absolute Neutrophil Count Manual 3.70 1.8 - 7.0 K/UL FIBRINOGEN Collection Time: 04/29/17 10:55 PM # # Low-High Fibrinogen 339 200 - 400 MG/DL PTT (APTT) Collection Time: 04/29/17 10:55 PM # # Low-High APTT 21.2 21.0 - 39.0 SEC PROTIME INR (PT) Collection Time: 04/29/17 10:55 PM # # Low-High INR 1.4 (H) 0.8 - 1.2 LDH-LACTATE DEHYDROGENASE Collection Time: 04/30/17 4:25 AM # # Low-High Lactate Dehydrogenase 510 (H) 100 - 210 U/L COMPREHENSIVE METABOLIC PANEL Collection Time: 04/30/17 4:25 AM # # Low-High Sodium 138 137 - 147 MMOL/L Potassium 4.8 3.5 - 5.1 MMOL/L Chloride 109 98 - 110 MMOL/L Glucose 244 (H) 70 - 100 MG/DL Blood Urea Nitrogen 35 (H) 7 - 25 MG/DL Creatinine 1.07 (H) 0.4 - 1.00 MG/DL Calcium 7.8 (L) 8.5 - 10.6 MG/DL Total Protein 6.0 6.0 - 8.0 G/DL Total Bilirubin 0.5 0.3 - 1.2 MG/DL Albumin 2.5 (L) 3.5 - 5.0 G/DL Alk Phosphatase 34 25 - 110 U/L AST (SGOT) 13 7 - 40 U/L CO2 23 21 - 30 MMOL/L ALT (SGPT) 6 (L) 7 - 56 U/L Anion Gap 6 3 - 12 eGFR Non 53 (L) >60 mL/min eGFR >60 >60 mL/min MAGNESIUM Collection Time: 04/30/17 4:25 AM # # Low-High Magnesium 2.1 1.6 - 2.6 mg/dL PHOSPHORUS Collection Time: 04/30/17 4:25 AM # # Low-High Phosphorus 6.2 (H) 2.0 - 4.0 MG/DL FIBRINOGEN Collection Time: 04/30/17 4:25 AM # # Low-High Fibrinogen 318 200 - 400 MG/DL URIC ACID Collection Time: 04/30/17 4:25 AM # # Low-High Uric Acid 3.6 2.0 - 7.0 MG/DL PTT (APTT) Collection Time: 04/30/17 4:25 AM # # Low-High APTT 21.8 21.0 - 39.0 SEC PROTIME INR (PT) Collection Time: 04/30/17 4:25 AM # # Low-High INR 1.3 (H) 0.8 - 1.2 CBC AND DIFF Collection Time: 04/30/17 4:25 AM # # Low-High White Blood Cells 7.8 4.5 - 11.0 K/UL RBC 2.18 (L) 4.0 - 5.0 M/UL Hemoglobin 7.3 (L) 12.0 - 15.0 GM/DL Hematocrit 20.9 (L) 36 - 45 % MCV 95.6 80 - 100 FL MCH 33.6 26 - 34 PG MCHC 35.1 32.0 - 36.0 G/DL RDW 23.7 (H) 11 - 15 % Platelet Count 13 (LL) 150 - 400 K/UL MPV 11.0 7 - 11 FL Nucleated RBCs 1 K/UL Segmented Neutrophils 35 (L) 41 - 77 % Bands 1 0 - 10 % Lymphocytes 24 24 - 44 % Monocytes 20 (H) 4 - 12 % Metamyelocyte 2 % Myelocyte 1 % Blast 17 % ANISO PRESENT Absolute Neutrophil Count Manual 2.81 1.8 - 7.0 K/UL POC GLUCOSE Collection Time: 04/30/17 7:17 AM # # Low-High Glucose, POC 239 (H) 70 - 100 MG/DL POC GLUCOSE Collection Time: 04/30/17 12:02 PM # # Low-High Glucose, POC 214 (H) 70 - 100 MG/DL PHOSPHORUS Collection Time: 04/30/17 12:10 PM # # Low-High Phosphorus 5.2 (H) 2.0 - 4.0 MG/DL FIBRINOGEN Collection Time: 04/30/17 12:10 PM # # Low-High Fibrinogen 242 200 - 400 MG/DL URIC ACID Collection Time: 04/30/17 12:10 PM # # Low-High Uric Acid 3.5 2.0 - 7.0 MG/DL PTT (APTT) Collection Time: 04/30/17 12:10 PM # # Low-High APTT 21.4 21.0 - 39.0 SEC PROTIME INR (PT) Collection Time: 04/30/17 12:10 PM # # Low-High INR 1.3 (H) 0.8 - 1.2 BASIC METABOLIC PANEL Collection Time: 04/30/17 12:10 PM # # Low-High Sodium 139 137 - 147 MMOL/L Potassium 4.5 3.5 - 5.1 MMOL/L Chloride 110 98 - 110 MMOL/L CO2 22 21 - 30 MMOL/L Anion Gap 7 3 - 12 Glucose 214 (H) 70 - 100 MG/DL Blood Urea Nitrogen 41 (H) 7 - 25 MG/DL Creatinine 0.95 0.4 - 1.00 MG/DL Calcium 7.5 (L) 8.5 - 10.6 MG/DL eGFR Non >60 >60 mL/min eGFR >60 >60 mL/min CBC AND DIFF Collection Time: 04/30/17 12:10 PM # # Low-High White Blood Cells 3.9 (L) 4.5 - 11.0 K/UL RBC 2.04 (L) 4.0 - 5.0 M/UL Hemoglobin 6.7 (L) 12.0 - 15.0 GM/DL Hematocrit 19.1 (L) 36 - 45 % MCV 93.7 80 - 100 FL MCH 32.9 26 - 34 PG MCHC 35.1 32.0 - 36.0 G/DL RDW 23.0 (H) 11 - 15 % Platelet Count 11 (LL) 150 - 400 K/UL MPV 10.8 7 - 11 FL Segmented Neutrophils 45 41 - 77 % Bands 2 0 - 10 % Lymphocytes 17 (L) 24 - 44 % Monocytes 15 (H) 4 - 12 % Blast 21 % ANISO PRESENT Platelet Estimate MKD DEC Absolute Neutrophil Count Manual 1.84 1.8 - 7.0 K/UL TYPE & CROSSMATCH Collection Time: 04/30/17 12:38 PM # # Low-High Units Ordered 2 Crossmatch Expires 05/03/2017 Record Check FOUND ABO/RH(D) A POS Antibody Screen NEG Electronic Crossmatch YES Unit Number [id number] Blood Component Type RBC,ADSOL,LEUKO REDUCED,IRRADIATED Unit Division 0 Status OF Unit TRANSFUSED Transfusion Status OK TO TRANSFUSE Crossmatch Result COMPATIBLE,ELECTRONIC Unit Number [id number] Blood Component Type RBC,ADSOL,LEUKO REDUCED,IRRADIATED Unit Division 0 Status OF Unit ISSUED Transfusion Status OK TO TRANSFUSE Crossmatch Result COMPATIBLE,ELECTRONIC POC GLUCOSE Collection Time: 04/30/17 5:02 PM # # Low-High Glucose, POC 208 (H) 70 - 100 MG/DL PHOSPHORUS Collection Time: 04/30/17 7:45 PM # # Low-High Phosphorus 5.8 (H) 2.0 - 4.0 MG/DL FIBRINOGEN Collection Time: 04/30/17 7:45 PM # # Low-High Fibrinogen 235 200 - 400 MG/DL URIC ACID Collection Time: 04/30/17 7:45 PM # # Low-High Uric Acid 3.7 2.0 - 7.0 MG/DL PTT (APTT) Collection Time: 04/30/17 7:45 PM # # Low-High APTT 18.3 (L) 21.0 - 39.0 SEC PROTIME INR (PT) Collection Time: 04/30/17 7:45 PM # # Low-High INR 1.3 (H) 0.8 - 1.2 BASIC METABOLIC PANEL Collection Time: 04/30/17 7:45 PM # # Low-High Sodium 136 (L) 137 - 147 MMOL/L Potassium 4.3 3.5 - 5.1 MMOL/L Chloride 107 98 - 110 MMOL/L CO2 21 21 - 30 MMOL/L Anion Gap 8 3 - 12 Glucose 280 (H) 70 - 100 MG/DL Blood Urea Nitrogen 43 (H) 7 - 25 MG/DL Creatinine 1.15 (H) 0.4 - 1.00 MG/DL Calcium 7.6 (L) 8.5 - 10.6 MG/DL eGFR Non 48 (L) >60 mL/min eGFR 59 (L) >60 mL/min CBC AND DIFF Collection Time: 04/30/17 7:45 PM # # Low-High White Blood Cells 1.7 (L) 4.5 - 11.0 K/UL RBC 2.18 (L) 4.0 - 5.0 M/UL Hemoglobin 6.8 (L) 12.0 - 15.0 GM/DL Hematocrit 20.3 (L) 36 - 45 % MCV 93.3 80 - 100 FL MCH 31.4 26 - 34 PG MCHC 33.7 32.0 - 36.0 G/DL RDW 24.0 (H) 11 - 15 % Platelet Count 7 (LL) 150 - 400 K/UL MPV 11.7 (H) 7 - 11 FL Nucleated RBCs 2 K/UL Segmented Neutrophils 51 41 - 77 % Lymphocytes 17 (L) 24 - 44 % Monocytes 13 (H) 4 - 12 % Blast 19 % ANISO PRESENT POIK PRESENT Ovalocyte PRESENT Platelet Estimate MKD DEC Absolute Neutrophil Count Manual 0.87 (L) 1.8 - 7.0 K/UL POC GLUCOSE Collection Time: 04/30/17 8:43 PM # # Low-High Glucose, POC 280 (H) 70 - 100 MG/DL PREPARE APHERESIS PLATELETS Collection Time: 04/30/17 10:07 PM # # Low-High Units Ordered 1 Unit Number [id number] Blood Component Type APHERESIS PLT,LEUKO REDUCED,IRRADIATED,1ST CONT. Unit Division 0 Status OF Unit TRANSFUSED Transfusion Status OK TO TRANSFUSE POC GLUCOSE Collection Time: 05/01/17 4:11 AM # # Low-High Glucose, POC 238 (H) 70 - 100 MG/DL LDH-LACTATE DEHYDROGENASE Collection Time: 05/01/17 5:15 AM # # Low-High Lactate Dehydrogenase 416 (H) 100 - 210 U/L COMPREHENSIVE METABOLIC PANEL Collection Time: 05/01/17 5:15 AM # # Low-High Sodium 138 137 - 147 MMOL/L Potassium 4.6 3.5 - 5.1 MMOL/L Chloride 108 98 - 110 MMOL/L Glucose 234 (H) 70 - 100 MG/DL Blood Urea Nitrogen 46 (H) 7 - 25 MG/DL Creatinine 0.98 0.4 - 1.00 MG/DL Calcium 7.6 (L) 8.5 - 10.6 MG/DL Total Protein 6.1 6.0 - 8.0 G/DL Total Bilirubin 0.8 0.3 - 1.2 MG/DL Albumin 2.7 (L) 3.5 - 5.0 G/DL Alk Phosphatase 31 25 - 110 U/L AST (SGOT) 11 7 - 40 U/L CO2 22 21 - 30 MMOL/L ALT (SGPT) 8 7 - 56 U/L Anion Gap 8 3 - 12 eGFR Non 58 (L) >60 mL/min eGFR >60 >60 mL/min MAGNESIUM Collection Time: 05/01/17 5:15 AM # # Low-High Magnesium 2.0 1.6 - 2.6 mg/dL PHOSPHORUS Collection Time: 05/01/17 5:15 AM # # Low-High Phosphorus 6.4 (H) 2.0 - 4.0 MG/DL FIBRINOGEN Collection Time: 05/01/17 5:15 AM # # Low-High Fibrinogen 245 200 - 400 MG/DL URIC ACID Collection Time: 05/01/17 5:15 AM # # Low-High Uric Acid 3.7 2.0 - 7.0 MG/DL PTT (APTT) Collection Time: 05/01/17 5:15 AM # # Low-High APTT 19.7 (L) 21.0 - 39.0 SEC PROTIME INR (PT) Collection Time: 05/01/17 5:15 AM # # Low-High INR 1.1 0.8 - 1.2 CBC AND DIFF Collection Time: 05/01/17 5:15 AM # # Low-High White Blood Cells 2.3 (L) 4.5 - 11.0 K/UL RBC 2.77 (L) 4.0 - 5.0 M/UL Hemoglobin 8.8 (L) 12.0 - 15.0 GM/DL Hematocrit 25.7 (L) 36 - 45 % MCV 92.7 80 - 100 FL MCH 31.8 26 - 34 PG MCHC 34.2 32.0 - 36.0 G/DL RDW 21.3 (H) 11 - 15 % Platelet Count 26 (L) 150 - 400 K/UL MPV 9.3 7 - 11 FL Nucleated RBCs 2 K/UL Segmented Neutrophils 60 41 - 77 % Bands 1 0 - 10 % Lymphocytes 8 (L) 24 - 44 % Monocytes 13 (H) 4 - 12 % Metamyelocyte 2 % Blast 16 % ANISO PRESENT POIK PRESENT POLY PRESENT Ovalocyte PRESENT Platelet Estimate MKD DEC Absolute Neutrophil Count Manual 1.40 (L) 1.8 - 7.0 K/UL POC GLUCOSE Collection Time: 05/01/17 10:30 AM # # Low-High Glucose, POC 274 (H) 70 - 100 MG/DL Radiology Review: Pertinent radiology reviewed. Bruno Duval MD * Jorge Oakes RN - 05/01/2017 7:07 AM CDT Shift: 7pm - 7am NEWS Score: 1920 - 0 0035 - 0 0410 - 2 (Supplemental oxygen) Pain: Pt denies pain this shift. Nutrition: ADA diet. Adequate intake. GI/: Last BM 04/29. Gonzalez in place. Ene and clear urine. Adequate U/O. Activity: Up with x2. Family: No family present this shift. Last Shower: 04/30. New Events or Follow-up: Hgb 6.8 and platelet 7. Pt got RBC and platelet during this shift. Magnesium 2.0. Replacement per protocol. * Jacquelin Parikh RN - 05/01/2017 5:40 AM CDT I have reviewed the notes, assessments, and/or procedures performed by Jorge Oakes RN and concur with her documentation unless otherwise noted. * Carolynn López RN - 04/30/2017 6:53 PM CDT Shift: Day NEWS Score: 0-1 (HR)-0-1 (BP) Pain: no reports this shift Nutrition: ADA, pt eating fair, drinking very well GI/: LBM 04/29 (no diarrhea per pt), urinating dark yellow cloudy urine via gonzalez, good output, 40mg IV lasix given this shift Activity: UW2, pt stood at bedside and got on standing scale, able to pull herself up in bed using grab bar Family: none present, family supportive over phone Last Shower: 04/30 New Events or Follow-up: bed does not zero properly, need daily standing weight * Carolynn López RN - 04/30/2017 3:41 PM CDT CHEMO NOTE Verified chemo consent signed and in chart. Verified initiate chemo order in O2 Blood return positive via: white lumen right chest PICC Premedications/Prehydration given as ordered. BSA and dose double checked (agree with orders as written) with: Mercedes Gonsales Arm band verified at bedside with second RN (same RN as above unless otherwise noted). Labs/applicable tests checked: labs 04/30/17 Chemo drug/dose/route: cytarabine (CYTOSAR) 520 mg in sodium chloride 0.9% (NS) 1,000 mL IVPB(C100) : Dose 200 mg/m2 2.6 m2 (Treatment Plan Recorded) : Admin Dose 520 mg : 41.7 mL/hr : Intravenous TRO 24 hours Rate verified with second RN (same RN as above unless otherwise noted). Patient education offered and stated understanding * Arnold Sparks, PT - 04/30/2017 2:50 PM CDT PHYSICAL THERAPY NOTE PT met with patient this afternoon. Patient states she does not want to get out of bed this afternoon as she is getting ready to get blood products and is just very fatigued and overwhelmed with everything that has taken place the past couple of days. Patient has "Connect" chair in her room in which it is able to elevate the seat cushion as well as recline into fully flat position. PT encouraged patient to get up to the chair over the weekend if she is feeling a little better. PT to follow up on Wednesday. Therapist: Arnold Sparks DPT Date: 04/30/2017 * Carolynn López RN - 04/30/2017 1:09 PM CDT Formatting of this note may be different from the original. . CHEMO NOTE Verified chemo consent signed and in chart. Verified initiate chemo order in O2 Blood return positive via: Right chest PICC, mckeon lumen Premedications/Prehydration given as ordered. BSA and dose double checked (agree with orders as written) with: NEVA García Arm band verified at bedside with second RN (same RN as above unless otherwise noted). Labs/applicable tests checked: Yes. Type and cross sent for blood transfusion later Chemo drug/dose/route: DAUNOrubicin (CERUBIDINE) injection 156 mg : Dose 60 mg/m2 2.6 m2 ( Treatment Plan Recorded) : Admin Dose 156 mg : Intravenous : ONCE : Rate verified with second RN (same RN as above unless otherwise noted). Patient education offered and stated understanding * Ari Collazo MD - 04/30/2017 11:58 AM CDT Formatting of this note may be different from the original. 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 Hypoglycemia is recurrent in spite of D5 normal saline drip. Recurrent UTI Acute leukemia A. fib CKD stage III Recommendations: - Hypoglycemia has resolved. - Hyperglycemia persists - continue antus 10 units daily - will add lantus 6 units with meals - continue MDCF - plan to restart glimepiride lower dose at discharge. we will continue to follow. Patient was seen and discussed with Dr. Jacobo History of Present Illness Giselle Moraes is a 56 y.o. female with past medical history of A. fib, type 2 diabetes, CKD stage III, UTI, anxiety was admitted for suspicion for acute leukemia. Endocrinology was consulted for recurrent hypoglycemia. Patient is still very fatigued. No more hypoglycemia. Appetite is better Denies nausea , vomitng , abdominal pain Estimated Creatinine Clearance: 83.1 mL/min (based on Cr of 1.07). 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 No pertinent family history. Allergies Allergies Allergen Reactions Ciprofloxacin SEE COMMENTS Per Nephrology doctors. Levofloxacin SEE COMMENTS Per nephrology doctors. Nsaids (Non-Steroidal Anti-Inflammatory Drug) SEE COMMENTS Per nephrology doctors. Bactrim [Sulfamethoxazole-Trimethoprim] SEE COMMENTS Per Nephrology Doctors. Contrast Dye Iv, Iodine Containing [Iodinated Contrast- Oral And Iv Dye] SEE COMMENTS Per nephrology doctors. Review of Systems A comprehensive 14-point review of systems was negative with exception of: Fatigue, feeling cold, shaky Medications Scheduled Meds: acyclovir (ZOVIRAX) tablet 400 mg 400 mg Oral BID allopurinol (ZYLOPRIM) tablet 300 mg 300 mg Oral QDAY atenolol (TENORMIN) tablet 25 mg 25 mg Oral QDAY cefepime (MAXIPIME) 2 g/100 ml iso-osmotic IVPB 2 g Intravenous Q12H* [START ON 05/01/2017] cytarabine (CYTOSAR) 520 mg in sodium chloride 0.9% (NS) 1 ,000 mL IVPB(C100) 200 mg/m2 (Treatment Plan Recorded) Intravenous ONCE cytarabine (CYTOSAR) 520 mg in sodium chloride 0.9% (NS) 1,000 mL IVPB(C100) 200 mg/m2 (Treatment Plan Recorded) Intravenous ONCE cytarabine (CYTOSAR) 520 mg in sodium chloride 0.9% (NS) 1,000 mL IVPB(C100) 200 mg/m2 (Treatment Plan Recorded) Intravenous ONCE DAUNOrubicin (CERUBIDINE) injection 156 mg 60 mg/m2 (Treatment Plan Recorded) Intravenous ONCE dexamethasone (DECADRON) tablet 12 mg 12 mg Oral Q24H* diltiazem CD (cardIZEM CD) capsule 240 mg 240 mg Oral QDAY insulin aspart (NOVOLOG FLEXPEN) injection PEN 0-14 Units 0-14 Units Subcutaneous ACHS insulin aspart (NOVOLOG FLEXPEN) injection PEN 6 Units 6 Units Subcutaneous TID w/ meals insulin glargine (LANTUS SOLOSTAR) injection PEN 10 Units 10 Units Subcutaneous QDAY(12) micafungin (MYCAMINE) 50 mg in sodium chloride 0.9% (NS) 105 mL IVPB 50 mg Intravenous Q24H* ondansetron (ZOFRAN) tablet 16 mg 16 mg Oral Q24H* polyethylene glycol 3350 (MIRALAX) packet 17 g 1 packet Oral QDAY senna (SENOKOT) tablet 1 tablet 1 tablet Oral BID Continuous Infusions: sodium chloride 0.9 % infusion 150 mL/hr at 04/30/17 0538 PRN and Respiratory Meds:acetaminophen Q6H PRN, ALPRAZolam BID PRN, alteplase PRN (Compliance Representative from Rx), LORazepam Q6H PRN, LORazepam injection Q6H PRN, magnesium sulfate 4 g/50 mL PRN, milk of magnesia (CONC) Q6H PRN, potassium chloride PRN (Compliance Representative from Rx) OR potassium chloride SR PRN (Compliance Representative from Rx ), saliva, synthetic PRN, sodium chloride 0.9% irrigation bottle PRN Physical Examination Vital Signs: Last Vital Signs: 24 Hour Range BP: 120/57 (04/30 836) Temp: 36.3 C (97.4 F) (04/30 836) Pulse: 82 (04/30 836) Respirations: 18 PER MINUTE (04/30 836) SpO2: 98 % (04/30 836) O2 Delivery: None (Room Air) (04/30 836) BP: (114-126)/(52-63) Temp: [36.3 C (97.4 F)-36.8 C (98.2 F)] Pulse: [78-130] Respirations: [18 PER MINUTE-20 PER MINUTE] SpO2: [96 %-99 %] O2 Delivery: None (Room Air) General appearance: alert, oriented, looking tired HENT: Dry oral mucosa, dried blood on lips Lungs: no wheezing, rhonchi, rales appreciated Heart: Regular rhythm, reg rate, with no murmur, rub, gallop Abdomen: soft, non-tender, non-distended, normoactive bowel sounds, Ext: No clubbing, cyanosis or edema Skin: no rashes/lesions Lab Review Point of Care Testing (Last 24 hours) Glucose: (!) 244 (04/30/17424) POC Glucose (Download): (!) 239 (04/30/17716) Recent Labs 04/27/17 1226 04/27/17 2055 04/28/17 0400 04/28/17 1240 04/28/17201604/29/17 0230 04/29/17 1128 04/29/17200204/30/175 NA 137 140 140 139 136* 137 137 137 138 K 4.0 3.7 3.8 3.8 4.5 4.5 4.5 4.2 4.8 CL 109 113* 112* 110 109 110 108 109 109 CO2 21 22 23 24 22 23 22 22 23 GAP 7 5 5 5 5 4 7 6 6 BUN 33* 30* 29* 27* 26* 25 28* 32* 35* CR 0.97 1.02* 1.00 0.98 1.01* 0.95 1.01* 1.07* 1.07* GLU 155* 202* 139* 161* 310* 214* 227* 264* 244* CA 8.0* 7.6* 7.9* 8.1* 7.9* 8.0* 8.2* 7.6* 7.8* ALBUMIN -- -- 2.2* -- -- 2.4* -- -- 2.5* MG -- -- 1.8 -- -- 2.1 -- -- 2.1 PO4 2.5 2.5 3.1 2.9 3.1 3.4 3.2 3.9 6.2* Recent Labs 04/27/17 1226 04/27/17 2055 04/28/17 0400 04/28/17 1240 04/28/17201604/29/17 0230 04/29/17 1128 04/29/17200204/29/17 2255 04/30/17 0425 WBC 29.1* 26.7* 29.1* 33.8* 15.1* 17.2* 24.0* 7.5 8.8 7.8 HGB 7.0* 7.1* 7.2* 7.2* 7.5* 7.4* 8.1* 6.7* 7.1* 7.3* HCT 20.5* 20.2* 20.9* 21.4* 22.3* 21.3* 23.2* 19.6* 20.5* 20.9* PLTCT 13* 12* 14* 16* 17* 13* 17* 11* 12* 13* INR 1.5* 1.4* 1.4* 1.3* 1.3* 1.4* 1.3* -- 1.4* 1.3* PTT 26.4 19.2* 25.3 22.0 20.5* 20.5* 18.7* -- 21.2 21.8 AST -- -- 12 -- -- 14 -- -- -- 13 ALT -- -- 5* -- -- 8 -- -- -- 6* ALKPHOS -- -- 32 -- -- 34 -- -- -- 34 Estimated Creatinine Clearance: 83.1 mL/min (based on Cr of 1.07). Vitals: 04/25/17 1145 04/28/17 0904 04/29/17 1250 Weight: (!) 142.9 kg (315 lb 0.6 oz) (!) 143.2 kg (315 lb 9.6 oz) (!) 137.1 kg ( 302 lb 3.2 oz) Thyroid Studies No results found for: TSH, FREET4, FREEINDEX No results found for: FREET3, [id number], THYBINDGLB Ari Collazo MD Endocrinology Fellow [id number] [phone] * Bruno Duval MD - 04/30/2017 9:59 AM CDT Formatting of this note may be different from the original. 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 Cardiology consulted. - Monitor TLS labs every 8 hours, DIC labs daily - Start 7+3 04/28/2017, FLT3 ITD positive, will submit to add midostaurin - D3 of 7+3 Heme: - Anemia and thrombocytopenia due to underlying AML - Previously on anticoagulation with apixaban for Atrial fibrillation, will hold for now with thrombocytopenia - Anticoagulation with lovenox for DVT ppx contraindicated due to thrombocytopenia, SCD's when on bed FEN/Renal: - Creatinine improved. - Appreciate renal recommendations - Uric acid 8.1, received 1 dose of rasburicase - Continue allopurinol - Monitor electrolytes, will be high goal replacement with h/o atrial fibrillation - Close monitoring of fluid status - Will need Lasix daily until weight improves, give 40mg IV x1 today ID: - Presents with UTI and fever - Urine cx from [facility] 04/23: + E.Coli resistant to ampicillin, Bactrim, Nitrofurantoin. Intermediate resistance to gent and Unasyn. Susceptible to ceftriaxone, zosyn, meropenem, cipro and aztreonam - Blood cx x 2 from [facility] 04/23: NGTD - Cefepime Day 8, had vancomycin and daptomycin on 04/24-04/25, discontinued, restart vanco if febrile. Needs to complete at least a 14 day course of cefepime for complicated UTI. - Has urinary catheter in place, did have urinary retention after trying to remove, will try again in one week - On prophylaxis with micafungin and acyclovir - Continue IV fluids/hydration. Monitor closely GI: - No nausea, vomiting or diarrhea - Low albumin. Liver functions normal - Obese, BMT>40 - Standing weights daily Endo: - Has type II DM, on glimiperide has been discontinued on admission - Had persistent low blood sugars, now blood sugars better - Endocrinology consultation obtained and appreciate recommendations CVS: - H/o atrial fibrillation, rate controlled. 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 Psych/Social: Pleasant, no issues - On alprazolam for anxiety, currently continued at low dose - Lives in [facility], , currently on disability, son lives in [facility] - Need to schedule family meeting to discuss future treatment course, had first discussion with and family friend on 04/28. Subjective: Giselle oMraes is a 56 y.o. female. Tolerating chemo very well. Puffiness improved with first dose of Lasix. Review of Systems: Constitutional: + fatigue, fevers, chills, sweats/diaphoresis, maliase, anorexia , appetite change, weight change (loss) HEENT: Negative. No ear/ nose problems. Bleeding of lips due to dryness. No gum bleeding Respiratory: +cough, sputum, mild SOB Cardiovascular: Negative for chest pain, chest pressure, palpitations, edema in extremeties Gastrointestional: diarrhea intermittent. No abdominal pain/ nausea or vomiting Gernitourinary: + dysuria, no hematuria Musculoskeletal:Negative Skin: Negative Psych: + anxiety Objective: Medications: Scheduled Meds: acyclovir (ZOVIRAX) tablet 400 mg 400 mg Oral BID allopurinol (ZYLOPRIM) tablet 300 mg 300 mg Oral QDAY atenolol (TENORMIN) tablet 25 mg 25 mg Oral QDAY cefepime (MAXIPIME) 2 g/100 ml iso-osmotic IVPB 2 g Intravenous Q12H* [START ON 05/01/2017] cytarabine (CYTOSAR) 520 mg in sodium chloride 0.9% (NS) 1 ,000 mL IVPB(C100) 200 mg/m2 (Treatment Plan Recorded) Intravenous ONCE cytarabine (CYTOSAR) 520 mg in sodium chloride 0.9% (NS) 1,000 mL IVPB(C100) 200 mg/m2 (Treatment Plan Recorded) Intravenous ONCE cytarabine (CYTOSAR) 520 mg in sodium chloride 0.9% (NS) 1,000 mL IVPB(C100) 200 mg/m2 (Treatment Plan Recorded) Intravenous ONCE DAUNOrubicin (CERUBIDINE) injection 156 mg 60 mg/m2 (Treatment Plan Recorded) Intravenous ONCE dexamethasone (DECADRON) tablet 12 mg 12 mg Oral Q24H* diltiazem CD (cardIZEM CD) capsule 240 mg 240 mg Oral QDAY insulin aspart (NOVOLOG FLEXPEN) injection PEN 0-14 Units 0-14 Units Subcutaneous ACHS insulin aspart (NOVOLOG FLEXPEN) injection PEN 6 Units 6 Units Subcutaneous TID w/ meals insulin glargine (LANTUS SOLOSTAR) injection PEN 10 Units 10 Units Subcutaneous QDAY(12) micafungin (MYCAMINE) 50 mg in sodium chloride 0.9% (NS) 105 mL IVPB 50 mg Intravenous Q24H* ondansetron (ZOFRAN) tablet 16 mg 16 mg Oral Q24H* polyethylene glycol 3350 (MIRALAX) packet 17 g 1 packet Oral QDAY senna (SENOKOT) tablet 1 tablet 1 tablet Oral BID Continuous Infusions: sodium chloride 0.9 % infusion 150 mL/hr at 04/30/17 0538 PRN and Respiratory Meds:acetaminophen Q6H PRN, ALPRAZolam BID PRN, alteplase PRN (Compliance Representative from Rx), LORazepam Q6H PRN, LORazepam injection Q6H PRN, magnesium sulfate 4 g/50 mL PRN, milk of magnesia (CONC) Q6H PRN, potassium chloride PRN (Compliance Representative from Rx) OR potassium chloride SR PRN (Compliance Representative from Rx ), saliva, synthetic PRN, sodium chloride 0.9% irrigation bottle PRN Vital Signs: Last Filed Vital Signs: 24 Hour Range BP: 120/57 (04/30 836) Temp: 36.3 C (97.4 F) (04/30 836) Pulse: 82 (04/30 836) Respirations: 18 PER MINUTE (04/30 836) SpO2: 98 % (04/30 836) O2 Delivery: None (Room Air) (04/30 836) BP: (114-151)/(52-94) Temp: [36.3 C (97.4 F)-36.8 C (98.2 F)] Pulse: [78-130] Respirations: [18 PER MINUTE-20 PER MINUTE] SpO2: [95 %-99 %] O2 Delivery: None (Room Air) Intensity Pain Scale 0-10 (Pain 1): 0 (04/30/17 0801) Vitals: 04/25/17 1145 04/28/17 0904 04/29/17 1250 Weight: (!) 142.9 kg (315 lb 0.6 oz) (!) 143.2 kg (315 lb 9.6 oz) (!) 137.1 kg ( 302 lb 3.2 oz) Intake/Output Summary: (Last 24 hours) Intake/Output Summary (Last 24 hours) at 04/30/17 1000 Last data filed at 04/30/17 0900 Gross per 24 hour Intake 5182 ml Output 4550 ml Net 632 ml Physical Exam: Performance Status (Karnofsky): 40% Disabled, requires special care and assistance General: awake & oriented, no acute distress, appears stated age, Morbidly obese HENT: normocephalic, atraumatic, non-icteric, clear conjunctivae, no adenopathy. Mild bleeding/ clotted blood onlips, no oral bleeding or gum bleeding Eyes: Conjunctuvae clear. PERRL, EOMs intact. CV: S1, S2, regular rhythm and rate, no murmur, click, rub Lungs: clear to ausculation bilaterally, non-labored Abdomen: Obese abdomen, soft, non-tender, non-distended, normo-active bowel sounds. Has indwelling catheter Extremities: no edema, cyanosis, pulses Skin: Warm & dry. Skin color, turgor normal. No rahses or lesions Neuro: drowsy but arousable and obeys all command, oriented to person, place and time. No focal deficits; normal muscle strength- normal Psych: Normal mood and affect. Judgment and thought content normal. Lab Review: Results for orders placed or performed during the hospital encounter of (from the past 48 hour(s)) PHOSPHORUS Collection Time: 04/28/17 12:40 PM # # Low-High Phosphorus 2.9 2.0 - 4.0 MG/DL FIBRINOGEN Collection Time: 04/28/17 12:40 PM # # Low-High Fibrinogen 349 200 - 400 MG/DL URIC ACID Collection Time: 04/28/17 12:40 PM # # Low-High Uric Acid 3.5 2.0 - 7.0 MG/DL PTT (APTT) Collection Time: 04/28/17 12:40 PM # # Low-High APTT 22.0 21.0 - 39.0 SEC PROTIME INR (PT) Collection Time: 04/28/17 12:40 PM # # Low-High INR 1.3 (H) 0.8 - 1.2 BASIC METABOLIC PANEL Collection Time: 04/28/17 12:40 PM # # Low-High Sodium 139 137 - 147 MMOL/L Potassium 3.8 3.5 - 5.1 MMOL/L Chloride 110 98 - 110 MMOL/L CO2 24 21 - 30 MMOL/L Anion Gap 5 3 - 12 Glucose 161 (H) 70 - 100 MG/DL Blood Urea Nitrogen 27 (H) 7 - 25 MG/DL Creatinine 0.98 0.4 - 1.00 MG/DL Calcium 8.1 (L) 8.5 - 10.6 MG/DL eGFR Non 58 (L) >60 mL/min eGFR >60 >60 mL/min CBC AND DIFF Collection Time: 04/28/17 12:40 PM # # Low-High White Blood Cells 33.8 (H) 4.5 - 11.0 K/UL RBC 2.29 (L) 4.0 - 5.0 M/UL Hemoglobin 7.2 (L) 12.0 - 15.0 GM/DL Hematocrit 21.4 (L) 36 - 45 % MCV 93.6 80 - 100 FL MCH 31.5 26 - 34 PG MCHC 33.6 32.0 - 36.0 G/DL RDW 23.6 (H) 11 - 15 % Platelet Count 16 (LL) 150 - 400 K/UL MPV 9.8 7 - 11 FL Segmented Neutrophils 12 (L) 41 - 77 % Bands 1 0 - 10 % Lymphocytes 16 (L) 24 - 44 % Monocytes 42 (H) 4 - 12 % Blast 29 % ANISO PRESENT POIK PRESENT POLY PRESENT Ovalocyte PRESENT Platelet Estimate MKD DEC Absolute Neutrophil Count Manual 4.40 1.8 - 7.0 K/UL CMV AB IGG Collection Time: 04/28/17 12:40 PM # # Low-High CMV, IgG NEG POC GLUCOSE Collection Time: 04/28/17 1:36 PM # # Low-High Glucose, POC 167 (H) 70 - 100 MG/DL POC GLUCOSE Collection Time: 04/28/17 6:17 PM # # Low-High Glucose, POC 209 (H) 70 - 100 MG/DL POC GLUCOSE Collection Time: 04/28/17 8:10 PM # # Low-High Glucose, POC 321 (H) 70 - 100 MG/DL PHOSPHORUS Collection Time: 04/28/17 8:17 PM # # Low-High Phosphorus 3.1 2.0 - 4.0 MG/DL FIBRINOGEN Collection Time: 04/28/17 8:17 PM # # Low-High Fibrinogen 443 (H) 200 - 400 MG/DL URIC ACID Collection Time: 04/28/17 8:17 PM # # Low-High Uric Acid 3.3 2.0 - 7.0 MG/DL PTT (APTT) Collection Time: 04/28/17 8:17 PM # # Low-High APTT 20.5 (L) 21.0 - 39.0 SEC PROTIME INR (PT) Collection Time: 04/28/17 8:17 PM # # Low-High INR 1.3 (H) 0.8 - 1.2 BASIC METABOLIC PANEL Collection Time: 04/28/17 8:17 PM # # Low-High Sodium 136 (L) 137 - 147 MMOL/L Potassium 4.5 3.5 - 5.1 MMOL/L Chloride 109 98 - 110 MMOL/L CO2 22 21 - 30 MMOL/L Anion Gap 5 3 - 12 Glucose 310 (H) 70 - 100 MG/DL Blood Urea Nitrogen 26 (H) 7 - 25 MG/DL Creatinine 1.01 (H) 0.4 - 1.00 MG/DL Calcium 7.9 (L) 8.5 - 10.6 MG/DL eGFR Non 56 (L) >60 mL/min eGFR >60 >60 mL/min CBC AND DIFF Collection Time: 04/28/17 8:17 PM # # Low-High White Blood Cells 15.1 (H) 4.5 - 11.0 K/UL RBC 2.32 (L) 4.0 - 5.0 M/UL Hemoglobin 7.5 (L) 12.0 - 15.0 GM/DL Hematocrit 22.3 (L) 36 - 45 % MCV 96.1 80 - 100 FL MCH 32.3 26 - 34 PG MCHC 33.6 32.0 - 36.0 G/DL RDW 24.6 (H) 11 - 15 % Platelet Count 17 (LL) 150 - 400 K/UL MPV 10.2 7 - 11 FL Nucleated RBCs 1 K/UL Segmented Neutrophils 11 (L) 41 - 77 % Lymphocytes 31 24 - 44 % Monocytes 31 (H) 4 - 12 % Eosinophil 1 0 - 5 % Myelocyte 3 % Promyelocyte 3 % Blast 20 % ANISO PRESENT POIK PRESENT POLY PRESENT Ovalocyte PRESENT Yaneli Rods PRESENT Platelet Estimate MKD DEC Absolute Neutrophil Count Manual 1.66 (L) 1.8 - 7.0 K/UL LDH-LACTATE DEHYDROGENASE Collection Time: 04/29/17 2:30 AM # # Low-High Lactate Dehydrogenase 641 (H) 100 - 210 U/L COMPREHENSIVE METABOLIC PANEL Collection Time: 04/29/17 2:30 AM # # Low-High Sodium 137 137 - 147 MMOL/L Potassium 4.5 3.5 - 5.1 MMOL/L Chloride 110 98 - 110 MMOL/L Glucose 214 (H) 70 - 100 MG/DL Blood Urea Nitrogen 25 7 - 25 MG/DL Creatinine 0.95 0.4 - 1.00 MG/DL Calcium 8.0 (L) 8.5 - 10.6 MG/DL Total Protein 5.9 (L) 6.0 - 8.0 G/DL Total Bilirubin 0.5 0.3 - 1.2 MG/DL Albumin 2.4 (L) 3.5 - 5.0 G/DL Alk Phosphatase 34 25 - 110 U/L AST (SGOT) 14 7 - 40 U/L CO2 23 21 - 30 MMOL/L ALT (SGPT) 8 7 - 56 U/L Anion Gap 4 3 - 12 eGFR Non >60 >60 mL/min eGFR >60 >60 mL/min MAGNESIUM Collection Time: 04/29/17 2:30 AM # # Low-High Magnesium 2.1 1.6 - 2.6 mg/dL PHOSPHORUS Collection Time: 04/29/17 2:30 AM # # Low-High Phosphorus 3.4 2.0 - 4.0 MG/DL FIBRINOGEN Collection Time: 04/29/17 2:30 AM # # Low-High Fibrinogen 343 200 - 400 MG/DL URIC ACID Collection Time: 04/29/17 2:30 AM # # Low-High Uric Acid 3.3 2.0 - 7.0 MG/DL PTT (APTT) Collection Time: 04/29/17 2:30 AM # # Low-High APTT 20.5 (L) 21.0 - 39.0 SEC PROTIME INR (PT) Collection Time: 04/29/17 2:30 AM # # Low-High INR 1.4 (H) 0.8 - 1.2 CBC AND DIFF Collection Time: 04/29/17 2:30 AM # # Low-High White Blood Cells 17.2 (H) 4.5 - 11.0 K/UL RBC 2.23 (L) 4.0 - 5.0 M/UL Hemoglobin 7.4 (L) 12.0 - 15.0 GM/DL Hematocrit 21.3 (L) 36 - 45 % MCV 95.5 80 - 100 FL MCH 33.3 26 - 34 PG MCHC 34.8 32.0 - 36.0 G/DL RDW 24.7 (H) 11 - 15 % Platelet Count 13 (LL) 150 - 400 K/UL MPV 10.0 7 - 11 FL Segmented Neutrophils 19 (L) 41 - 77 % Lymphocytes 13 (L) 24 - 44 % Monocytes 24 (H) 4 - 12 % Myelocyte 4 % Promyelocyte 2 % Blast 38 % ANISO PRESENT HYPO PRESENT POIK PRESENT POLY PRESENT Ovalocyte PRESENT Platelet Estimate MKD DEC Absolute Neutrophil Count Manual 3.27 1.8 - 7.0 K/UL POC GLUCOSE Collection Time: 04/29/17 7:15 AM # # Low-High Glucose, POC 218 (H) 70 - 100 MG/DL PHOSPHORUS Collection Time: 04/29/17 11:28 AM # # Low-High Phosphorus 3.2 2.0 - 4.0 MG/DL FIBRINOGEN Collection Time: 04/29/17 11:28 AM # # Low-High Fibrinogen 388 200 - 400 MG/DL URIC ACID Collection Time: 04/29/17 11:28 AM # # Low-High Uric Acid 3.4 2.0 - 7.0 MG/DL PTT (APTT) Collection Time: 04/29/17 11:28 AM # # Low-High APTT 18.7 (L) 21.0 - 39.0 SEC PROTIME INR (PT) Collection Time: 04/29/17 11:28 AM # # Low-High INR 1.3 (H) 0.8 - 1.2 BASIC METABOLIC PANEL Collection Time: 04/29/17 11:28 AM # # Low-High Sodium 137 137 - 147 MMOL/L Potassium 4.5 3.5 - 5.1 MMOL/L Chloride 108 98 - 110 MMOL/L CO2 22 21 - 30 MMOL/L Anion Gap 7 3 - 12 Glucose 227 (H) 70 - 100 MG/DL Blood Urea Nitrogen 28 (H) 7 - 25 MG/DL Creatinine 1.01 (H) 0.4 - 1.00 MG/DL Calcium 8.2 (L) 8.5 - 10.6 MG/DL eGFR Non 56 (L) >60 mL/min eGFR >60 >60 mL/min CBC AND DIFF Collection Time: 04/29/17 11:28 AM # # Low-High White Blood Cells 24.0 (H) 4.5 - 11.0 K/UL RBC 2.48 (L) 4.0 - 5.0 M/UL Hemoglobin 8.1 (L) 12.0 - 15.0 GM/DL Hematocrit 23.2 (L) 36 - 45 % MCV 93.8 80 - 100 FL MCH 32.9 26 - 34 PG MCHC 35.1 32.0 - 36.0 G/DL RDW 23.0 (H) 11 - 15 % Platelet Count 17 (LL) 150 - 400 K/UL MPV 11.0 7 - 11 FL Segmented Neutrophils 27 (L) 41 - 77 % Bands 3 0 - 10 % Lymphocytes 22 (L) 24 - 44 % Monocytes 21 (H) 4 - 12 % Promyelocyte 1 % Blast 26 % ANISO PRESENT POIK PRESENT POLY PRESENT Platelet Estimate MKD DEC Absolute Neutrophil Count Manual 7.20 (H) 1.8 - 7.0 K/UL POC GLUCOSE Collection Time: 04/29/17 12:32 PM # # Low-High Glucose, POC 259 (H) 70 - 100 MG/DL POC GLUCOSE Collection Time: 04/29/17 4:32 PM # # Low-High Glucose, POC 222 (H) 70 - 100 MG/DL PHOSPHORUS Collection Time: 04/29/17 8:03 PM # # Low-High Phosphorus 3.9 2.0 - 4.0 MG/DL URIC ACID Collection Time: 04/29/17 8:03 PM # # Low-High Uric Acid 3.5 2.0 - 7.0 MG/DL BASIC METABOLIC PANEL Collection Time: 04/29/17 8:03 PM # # Low-High Sodium 137 137 - 147 MMOL/L Potassium 4.2 3.5 - 5.1 MMOL/L Chloride 109 98 - 110 MMOL/L CO2 22 21 - 30 MMOL/L Anion Gap 6 3 - 12 Glucose 264 (H) 70 - 100 MG/DL Blood Urea Nitrogen 32 (H) 7 - 25 MG/DL Creatinine 1.07 (H) 0.4 - 1.00 MG/DL Calcium 7.6 (L) 8.5 - 10.6 MG/DL eGFR Non 53 (L) >60 mL/min eGFR >60 >60 mL/min CBC AND DIFF Collection Time: 04/29/17 8:03 PM # # Low-High White Blood Cells 7.5 4.5 - 11.0 K/UL RBC 2.07 (L) 4.0 - 5.0 M/UL Hemoglobin 6.7 (L) 12.0 - 15.0 GM/DL Hematocrit 19.6 (L) 36 - 45 % MCV 94.5 80 - 100 FL MCH 32.6 26 - 34 PG MCHC 34.4 32.0 - 36.0 G/DL RDW 22.9 (H) 11 - 15 % Platelet Count 11 (LL) 150 - 400 K/UL MPV 10.2 7 - 11 FL Segmented Neutrophils 22 (L) 41 - 77 % Bands 2 0 - 10 % Lymphocytes 26 24 - 44 % Monocytes 15 (H) 4 - 12 % Metamyelocyte 1 % Blast 34 % ANISO PRESENT Absolute Neutrophil Count Manual 1.80 1.8 - 7.0 K/UL POC GLUCOSE Collection Time: 04/29/17 8:56 PM # # Low-High Glucose, POC 274 (H) 70 - 100 MG/DL CBC AND DIFF Collection Time: 04/29/17 10:55 PM # # Low-High White Blood Cells 8.8 4.5 - 11.0 K/UL RBC 2.17 (L) 4.0 - 5.0 M/UL Hemoglobin 7.1 (L) 12.0 - 15.0 GM/DL Hematocrit 20.5 (L) 36 - 45 % MCV 94.6 80 - 100 FL MCH 32.8 26 - 34 PG MCHC 34.6 32.0 - 36.0 G/DL RDW 23.9 (H) 11 - 15 % Platelet Count 12 (LL) 150 - 400 K/UL MPV 10.4 7 - 11 FL Segmented Neutrophils 40 (L) 41 - 77 % Bands 2 0 - 10 % Lymphocytes 23 (L) 24 - 44 % Monocytes 13 (H) 4 - 12 % Blast 22 % ANISO PRESENT Absolute Neutrophil Count Manual 3.70 1.8 - 7.0 K/UL FIBRINOGEN Collection Time: 04/29/17 10:55 PM # # Low-High Fibrinogen 339 200 - 400 MG/DL PTT (APTT) Collection Time: 04/29/17 10:55 PM # # Low-High APTT 21.2 21.0 - 39.0 SEC PROTIME INR (PT) Collection Time: 04/29/17 10:55 PM # # Low-High INR 1.4 (H) 0.8 - 1.2 LDH-LACTATE DEHYDROGENASE Collection Time: 04/30/17 4:25 AM # # Low-High Lactate Dehydrogenase 510 (H) 100 - 210 U/L COMPREHENSIVE METABOLIC PANEL Collection Time: 04/30/17 4:25 AM # # Low-High Sodium 138 137 - 147 MMOL/L Potassium 4.8 3.5 - 5.1 MMOL/L Chloride 109 98 - 110 MMOL/L Glucose 244 (H) 70 - 100 MG/DL Blood Urea Nitrogen 35 (H) 7 - 25 MG/DL Creatinine 1.07 (H) 0.4 - 1.00 MG/DL Calcium 7.8 (L) 8.5 - 10.6 MG/DL Total Protein 6.0 6.0 - 8.0 G/DL Total Bilirubin 0.5 0.3 - 1.2 MG/DL Albumin 2.5 (L) 3.5 - 5.0 G/DL Alk Phosphatase 34 25 - 110 U/L AST (SGOT) 13 7 - 40 U/L CO2 23 21 - 30 MMOL/L ALT (SGPT) 6 (L) 7 - 56 U/L Anion Gap 6 3 - 12 eGFR Non 53 (L) >60 mL/min eGFR >60 >60 mL/min MAGNESIUM Collection Time: 04/30/17 4:25 AM # # Low-High Magnesium 2.1 1.6 - 2.6 mg/dL PHOSPHORUS Collection Time: 04/30/17 4:25 AM # # Low-High Phosphorus 6.2 (H) 2.0 - 4.0 MG/DL FIBRINOGEN Collection Time: 04/30/17 4:25 AM # # Low-High Fibrinogen 318 200 - 400 MG/DL URIC ACID Collection Time: 04/30/17 4:25 AM # # Low-High Uric Acid 3.6 2.0 - 7.0 MG/DL PTT (APTT) Collection Time: 04/30/17 4:25 AM # # Low-High APTT 21.8 21.0 - 39.0 SEC PROTIME INR (PT) Collection Time: 04/30/17 4:25 AM # # Low-High INR 1.3 (H) 0.8 - 1.2 CBC AND DIFF Collection Time: 04/30/17 4:25 AM # # Low-High White Blood Cells 7.8 4.5 - 11.0 K/UL RBC 2.18 (L) 4.0 - 5.0 M/UL Hemoglobin 7.3 (L) 12.0 - 15.0 GM/DL Hematocrit 20.9 (L) 36 - 45 % MCV 95.6 80 - 100 FL MCH 33.6 26 - 34 PG MCHC 35.1 32.0 - 36.0 G/DL RDW 23.7 (H) 11 - 15 % Platelet Count 13 (LL) 150 - 400 K/UL MPV 11.0 7 - 11 FL Nucleated RBCs 1 K/UL Segmented Neutrophils 35 (L) 41 - 77 % Bands 1 0 - 10 % Lymphocytes 24 24 - 44 % Monocytes 20 (H) 4 - 12 % Metamyelocyte 2 % Myelocyte 1 % Blast 17 % ANISO PRESENT Absolute Neutrophil Count Manual 2.81 1.8 - 7.0 K/UL POC GLUCOSE Collection Time: 04/30/17 7:17 AM # # Low-High Glucose, POC 239 (H) 70 - 100 MG/DL Radiology Review: Pertinent radiology reviewed. Bruno Duval MD * Nancy Cleaning, NEVA - 04/30/2017 6:11 AM CDT Shift: 7p-7a NEWS Score: 2000: 1 (HR 92) 0000: 0 0400: 0 Pain: Pt denied pain overnight. Nutrition: Good per pt report. GI/: Gonzalez, urine pink tinged (on Daunirubicin), some sediment. BM 04/29. No c /o n/v. Activity: Bedrest overnight. PT following. Family: None at bedside overnight. Last Shower: 04/29 New Events or Follow-up: Pt on tele- afib overnight, rate controlled. Pt severely anxious and tearful at times. Onc Psych consult would be very beneficial for this pt. * Ofelia Arzate, NEVA - 04/29/2017 3:07 PM CDT ... CHEMO NOTE Verified chemo consent signed and in chart. Verified initiate chemo order in O2. Blood return positive via: mckeon lumen and white lumen right 3x PICC Premedications/Prehydration given as ordered. BSA and dose double checked (agree with orders as written) with: Vidhya HOOKS Arm band verified at bedside with second RN (same RN as above unless otherwise noted). Labs/applicable tests checked: yes Chemo drug/dose/route: cytarabine (CYTOSAR) 520 mg in sodium chloride 0.9% (NS) 1,000 mL IVPB(C100) : Dose 200 mg/m2 2.6 m2 (Treatment Plan Recorded) : Admin Dose 520 mg : 41.7 mL/hr : Intravenous : ONCE DAUNOrubicin (CERUBIDINE) injection 156 mg : Dose 60 mg/m2 2.6 m2 ( Treatment Plan Recorded) : Admin Dose 156 mg : Intravenous : ONCE : Rate verified with second RN (same RN as above unless otherwise noted). Patient education offered and stated understanding. yes * Ari Collazo MD - 04/29/2017 12:46 PM CDT Formatting of this note may be different from the original. Endocrinology progress note Today's Date: 04/29/2017 Admission Date: 04/24/2017 Reason for this consultation: Assessment: Type 2 diabetes mellitus: A1c unknown, ordered [employer] regimen: Glimepiride 4 mg daily Hypoglycemic episodes on this regimen: Unknown Follows up with for diabetes management: PCP Diabetic-complications assessment: Retinopathy: Last eye exam 2 years back, no retinopathy Peripheral neuropathy: Yes Autonomic neuropathy: No Nephropathy: Yes Macrovascular complications: No Risk factor assessment: Last lipid profile -none in chart On ACEi/ARB?:No On Statin?: No Recurrent hypoglycemia: Last dose of glimepiride 4 mg was on 04/23 in the morning, at home. Hypoglycemia is recurrent in spite of D5 normal saline drip. Recurrent UTI Acute leukemia A. fib CKD stage III Recommendations: - Hypoglycemia has resolved. - Hyperglycemia persists - will add lantus 10 units daily - continue MDCF - plan to restart glimepiride lower dose at discharge. we will continue to follow. Patient was seen and discussed with Dr. Valle History of Present Illness Giselle Moraes is a 56 y.o. female with past medical history of A. fib, type 2 diabetes, CKD stage III, UTI, anxiety was admitted for suspicion for acute leukemia. Endocrinology was consulted for recurrent hypoglycemia. Patient is still very fatigued. No more hypoglycemia. Appetite is better Denies nausea , vomitng , abdominal pain Estimated Creatinine Clearance: 90.3 mL/min (based on Cr of 1.01). 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 No pertinent family history. Allergies Allergies Allergen Reactions Ciprofloxacin SEE COMMENTS Per Nephrology doctors. Levofloxacin SEE COMMENTS Per nephrology doctors. Nsaids (Non-Steroidal Anti-Inflammatory Drug) SEE COMMENTS Per nephrology doctors. Bactrim [Sulfamethoxazole-Trimethoprim] SEE COMMENTS Per Nephrology Doctors. Contrast Dye Iv, Iodine Containing [Iodinated Contrast- Oral And Iv Dye] SEE COMMENTS Per nephrology doctors. Review of Systems A comprehensive 14-point review of systems was negative with exception of: Fatigue, feeling cold, shaky Medications Scheduled Meds: acyclovir (ZOVIRAX) tablet 400 mg 400 mg Oral BID allopurinol (ZYLOPRIM) tablet 300 mg 300 mg Oral QDAY atenolol (TENORMIN) tablet 25 mg 25 mg Oral QDAY cefepime (MAXIPIME) 2 g/100 ml iso-osmotic IVPB 2 g Intravenous Q12H* [START ON 04/30/2017] cytarabine (CYTOSAR) 520 mg in sodium chloride 0.9% (NS) 1 ,000 mL IVPB(C100) 200 mg/m2 (Treatment Plan Recorded) Intravenous ONCE cytarabine (CYTOSAR) 520 mg in sodium chloride 0.9% (NS) 1,000 mL IVPB(C100) 200 mg/m2 (Treatment Plan Recorded) Intravenous ONCE cytarabine (CYTOSAR) 520 mg in sodium chloride 0.9% (NS) 1,000 mL IVPB(C100) 200 mg/m2 (Treatment Plan Recorded) Intravenous ONCE [START ON 04/30/2017] DAUNOrubicin (CERUBIDINE) injection 156 mg 60 mg/m2 ( Treatment Plan Recorded) Intravenous ONCE DAUNOrubicin (CERUBIDINE) injection 156 mg 60 mg/m2 (Treatment Plan Recorded) Intravenous ONCE dexamethasone (DECADRON) tablet 12 mg 12 mg Oral Q24H* diltiazem CD (cardIZEM CD) capsule 240 mg 240 mg Oral QDAY furosemide (LASIX) injection 40 mg 40 mg Intravenous ONCE insulin aspart (NOVOLOG FLEXPEN) injection PEN 0-14 Units 0-14 Units Subcutaneous ACHS insulin glargine (LANTUS SOLOSTAR) injection PEN 10 Units 10 Units Subcutaneous QDAY(12) micafungin (MYCAMINE) 50 mg in sodium chloride 0.9% (NS) 105 mL IVPB 50 mg Intravenous Q24H* ondansetron (ZOFRAN) tablet 16 mg 16 mg Oral Q24H* polyethylene glycol 3350 (MIRALAX) packet 17 g 1 packet Oral QDAY senna (SENOKOT) tablet 1 tablet 1 tablet Oral BID Continuous Infusions: sodium chloride 0.9 % infusion 150 mL/hr at 04/29/17 0716 PRN and Respiratory Meds:acetaminophen Q6H PRN, ALPRAZolam BID PRN, alteplase PRN (Compliance Representative from Rx), LORazepam Q6H PRN, LORazepam injection Q6H PRN, magnesium sulfate 4 g/50 mL PRN, milk of magnesia (CONC) Q6H PRN, potassium chloride PRN (Compliance Representative from Rx) OR potassium chloride SR PRN (Compliance Representative from Rx ), saliva, synthetic PRN, sodium chloride 0.9% irrigation bottle PRN Physical Examination Vital Signs: Last Vital Signs: 24 Hour Range BP: 151/94 (04/29 1113) Temp: 36.4 C (97.5 F) (04/29 111) Pulse: 110 (04/29 1113) Respirations: 18 PER MINUTE (04/29 111) SpO2: 95 % (04/29 111) O2 Delivery: None (Room Air) (04/29 1113) BP: (123-151)/(56-94) Temp: [36.4 C (97.5 F)-37.1 C (98.8 F)] Pulse: [102-115] Respirations: [18 PER MINUTE-22 PER MINUTE] SpO2: [95 %-99 %] O2 Delivery: None (Room Air) General appearance: alert, oriented, looking tired HENT: Dry oral mucosa, dried blood on lips Lungs: no wheezing, rhonchi, rales appreciated Heart: Regular rhythm, reg rate, with no murmur, rub, gallop Abdomen: soft, non-tender, non-distended, normoactive bowel sounds, Ext: No clubbing, cyanosis or edema Skin: no rashes/lesions Lab Review Point of Care Testing (Last 24 hours) Glucose: (!) 227 (04/29/17 1128) POC Glucose (Download): (!) 259 (04/29/17 1232) Recent Labs 04/26/17195204/27/17 0524 04/27/17 1226 04/27/17205404/28/17 0400 04/28/17 1240 04/28/17201604/29/17 0230 04/29/17 1128 NA 137 138 137 140 140 139 136* 137 137 K 3.7 3.8 4.0 3.7 3.8 3.8 4.5 4.5 4.5 CL 109 110 109 113* 112* 110 109 110 108 CO2 21 23 21 22 23 24 22 23 22 GAP 7 5 7 5 5 5 5 4 7 BUN 38* 36* 33* 30* 29* 27* 26* 25 28* CR 1.18* 1.05* 0.97 1.02* 1.00 0.98 1.01* 0.95 1.01* GLU 233* 175* 155* 202* 139* 161* 310* 214* 227* CA 8.0* 8.1* 8.0* 7.6* 7.9* 8.1* 7.9* 8.0* 8.2* ALBUMIN -- 2.4* -- -- 2.2* -- -- 2.4* -- MG -- 1.9 -- -- 1.8 -- -- 2.1 -- PO4 3.2 3.2 2.5 2.5 3.1 2.9 3.1 3.4 3.2 Recent Labs 04/26/17195204/27/17 0524 04/27/17 1226 04/27/17205404/28/17 0400 04/28/17 1240 04/28/17201604/29/17 0230 04/29/17 1128 WBC 35.5* 32.6* 29.1* 26.7* 29.1* 33.8* 15.1* 17.2* 24.0* HGB 7.5* 7.1* 7.0* 7.1* 7.2* 7.2* 7.5* 7.4* 8.1* HCT 21.6* 20.9* 20.5* 20.2* 20.9* 21.4* 22.3* 21.3* 23.2* PLTCT 14* 15* 13* 12* 14* 16* 17* 13* 17* INR 1.6* 1.4* 1.5* 1.4* 1.4* 1.3* 1.3* 1.4* 1.3* PTT 27.0 24.3 26.4 19.2* 25.3 22.0 20.5* 20.5* 18.7* AST -- 13 -- -- 12 -- -- 14 -- ALT -- 5* -- -- 5* -- -- 8 -- ALKPHOS -- 32 -- -- 32 -- -- 34 -- Estimated Creatinine Clearance: 90.3 mL/min (based on Cr of 1.01). Vitals: 04/25/17 0215 04/25/17 1145 04/28/17 0904 Weight: (!) 142.4 kg (314 lb) (!) 142.9 kg (315 lb 0.6 oz) (!) 143.2 kg (315 lb 9.6 oz) Thyroid Studies No results found for: TSH, FREET4, FREEINDEX No results found for: FREET3, [id number], THYBINDGLB Ari Collazo MD Endocrinology Fellow [id number] [phone] Associated attestation - Pierce Valle MD - 05/01/2017 12:38 PM CDT Formatting of this note may be different from the original. ATTESTATION I personally performed the carrizales portions of the E/M visit, discussed case with resident and concur with resident documentation of history, physical exam, assessment, and treatment plan unless otherwise noted. Staff name: Pierce Valle MD Date: 05/01/2017 * Ofelia Arzate RN - 04/29/2017 12:08 PM CDT ..Shift: day NEWS Score: 0800 2 (HR 114) 1200 2 (HR 110, O2 95) 1600 2 (HR 130) Pain: pt reports mild pain when sitting upright. Nutrition: diabetic diet. pt with minimal appetite. ate small breakfast, no lunch, and small dinner. GI/: gonzalez in place, patent and draining freely. no BM this shift. no N/V reported Activity: upx2 with walker and gait belt. pt sat at side of bed for approx 1 hr. pt stood at side of bed x2 and side stepped from foot of bed to head of bed. Family: none at bedside. Last Shower: 04/29/17 New Events or Follow-up: MEGHA Borjas called at 1700 about HR of 130. ordered to reassess HR in 30 min. If HR is still elevated, will call cardiology. @ 1800 per auscultation HR was 80 bpm. * Bruno Duval MD - 04/29/2017 12:05 PM CDT Formatting of this note may be different from the original. 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 Cardiology consulted. - Monitor TLS labs every 8 hours, DIC labs daily - Start 7+3 04/28/2017, FLT3 ITD positive, will submit to add midostaurin Heme: - Anemia and thrombocytopenia due to underlying AML - Previously on anticoagulation with apixaban for Atrial fibrillation, will hold for now with thrombocytopenia - Anticoagulation with lovenox for DVT ppx contraindicated due to thrombocytopenia, SCD's when on bed FEN/Renal: - Creatinine improved. - Appreciate renal recommendations - Uric acid 8.1, received 1 dose of rasburicase - Continue allopurinol - Monitor electrolytes, will be high goal replacement with h/o atrial fibrillation - Close monitoring of fluid status - Will need Lasix daily until weight improves ID: - Presents with UTI and fever - Urine cx from [facility] 04/23: + E.Coli resistant to ampicillin, Bactrim, Nitrofurantoin. Intermediate resistance to gent and Unasyn. Susceptible to ceftriaxone, zosyn, meropenem, cipro and aztreonam - Blood cx x [address] [facility] 04/23: NGTD - Cefepime Day 7, had vancomycin and daptomycin on 04/24-04/25, discontinued, start vanco if febrile. Needs to complete at least a 14 day course for complicated UTI. - Has urinary catheter in place, did have urinary retention after trying to remove - On prophylaxis with micafungin and acyclovir - Continue IV fluids/hydration. Monitor closely GI: - No nausea, vomiting or diarrhea - Low albumin. Liver functions normal - Obese, weight 315 lbs - Standing weights daily Endo: - Has type II DM, on glimiperide has been discontinued on admission - Had persistent low blood sugars, now blood sugars better - Endocrinology consultation obtained and appreciate recommendations CVS: - H/o atrial fibrillation, rate controlled. She was on [employer] atenolol, diltiazem furosemide - Mild moderate - Will hold apixaban atenolol and continue diltiazem - Will start atenolol 25mg daily - Cardiology opinion appreciated, 2d Echo- normal EF 60%. Psych/Social: Pleasant, no issues - On alprazolam for anxiety, currently continued at low dose - Lives in [facility], , currently on disability, son lives in [facility] - Need to schedule family meeting to discuss future treatment course Subjective: Giselle Moraes is a 56 y.o. female. Tolerating chemo very well. Review of Systems: Constitutional: + fatigue, fevers, chills, sweats/diaphoresis, maliase, anorexia , appetite change, weight change (loss) HEENT: Negative. No ear/ nose problems. Bleeding of lips due to dryness. No gum bleeding Respiratory: +cough, sputum, mild SOB Cardiovascular: Negative for chest pain, chest pressure, palpitations, edema in extremeties Gastrointestional: diarrhea intermittent. No abdominal pain/ nausea or vomiting Gernitourinary: + dysuria, no hematuria Musculoskeletal:Negative Skin: Negative Psych: + anxiety Objective: Medications: Scheduled Meds: acyclovir (ZOVIRAX) tablet 400 mg 400 mg Oral BID allopurinol (ZYLOPRIM) tablet 300 mg 300 mg Oral QDAY cefepime (MAXIPIME) 2 g/100 ml iso-osmotic IVPB 2 g Intravenous Q12H* [START ON 04/30/2017] cytarabine (CYTOSAR) 520 mg in sodium chloride 0.9% (NS) 1 ,000 mL IVPB(C100) 200 mg/m2 (Treatment Plan Recorded) Intravenous ONCE cytarabine (CYTOSAR) 520 mg in sodium chloride 0.9% (NS) 1,000 mL IVPB(C100) 200 mg/m2 (Treatment Plan Recorded) Intravenous ONCE cytarabine (CYTOSAR) 520 mg in sodium chloride 0.9% (NS) 1,000 mL IVPB(C100) 200 mg/m2 (Treatment Plan Recorded) Intravenous ONCE [START ON 04/30/2017] DAUNOrubicin (CERUBIDINE) injection 156 mg 60 mg/m2 ( Treatment Plan Recorded) Intravenous ONCE DAUNOrubicin (CERUBIDINE) injection 156 mg 60 mg/m2 (Treatment Plan Recorded) Intravenous ONCE dexamethasone (DECADRON) tablet 12 mg 12 mg Oral Q24H* diltiazem CD (cardIZEM CD) capsule 240 mg 240 mg Oral QDAY insulin aspart (NOVOLOG FLEXPEN) injection PEN 0-14 Units 0-14 Units Subcutaneous ACHS insulin glargine (LANTUS SOLOSTAR) injection PEN 10 Units 10 Units Subcutaneous QDAY(12) micafungin (MYCAMINE) 50 mg in sodium chloride 0.9% (NS) 105 mL IVPB 50 mg Intravenous Q24H* ondansetron (ZOFRAN) tablet 16 mg 16 mg Oral Q24H* polyethylene glycol 3350 (MIRALAX) packet 17 g 1 packet Oral QDAY senna (SENOKOT) tablet 1 tablet 1 tablet Oral BID Continuous Infusions: sodium chloride 0.9 % infusion 150 mL/hr at 04/29/17 0716 PRN and Respiratory Meds:acetaminophen Q6H PRN, ALPRAZolam BID PRN, alteplase PRN (Compliance Representative from Rx), LORazepam Q6H PRN, LORazepam injection Q6H PRN, magnesium sulfate 4 g/50 mL PRN, milk of magnesia (CONC) Q6H PRN, potassium chloride PRN (Compliance Representative from Rx) OR potassium chloride SR PRN (Compliance Representative from Rx ), saliva, synthetic PRN, sodium chloride 0.9% irrigation bottle PRN Vital Signs: Last Filed Vital Signs: 24 Hour Range BP: 151/94 (04/29 1113) Temp: 36.4 C (97.5 F) (04/29 1113) Pulse: 110 (04/29 1113) Respirations: 18 PER MINUTE (04/29 1113) SpO2: 95 % (04/29 1113) O2 Delivery: None (Room Air) (04/29 1113) BP: (123-151)/(56-94) Temp: [36.4 C (97.5 F)-37.1 C (98.8 F)] Pulse: [98-115] Respirations: [18 PER MINUTE-22 PER MINUTE] SpO2: [95 %-99 %] O2 Delivery: None (Room Air) Intensity Pain Scale 0-10 (Pain 1): (not recorded) Vitals: 04/25/17 0215 04/25/17 1145 04/28/17 0904 Weight: (!) 142.4 kg (314 lb) (!) 142.9 kg (315 lb 0.6 oz) (!) 143.2 kg (315 lb 9.6 oz) Intake/Output Summary: (Last 24 hours) Intake/Output Summary (Last 24 hours) at 04/29/17 1205 Last data filed at 04/29/17 1100 Gross per 24 hour Intake 3891 ml Output 1825 ml Net 2066 ml Physical Exam: Performance Status (Karnofsky): 40% Disabled, requires special care and assistance General: awake & oriented, no acute distress, appears stated age, Morbidly obese HENT: normocephalic, atraumatic, non-icteric, clear conjunctivae, no adenopathy. Mild bleeding/ clotted blood onlips, no oral bleeding or gum bleeding Eyes: Conjunctuvae clear. PERRL, EOMs intact. CV: S1, S2, regular rhythm and rate, no murmur, click, rub Lungs: clear to ausculation bilaterally, non-labored Abdomen: Obese abdomen, soft, non-tender, non-distended, normo-active bowel sounds. Has indwelling catheter Extremities: no edema, cyanosis, pulses Skin: Warm & dry. Skin color, turgor normal. No rahses or lesions Neuro: drowsy but arousable and obeys all command, oriented to person, place and time. No focal deficits; normal muscle strength- normal Psych: Normal mood and affect. Judgment and thought content normal. Lab Review: Results for orders placed or performed during the hospital encounter of (from the past 48 hour(s)) POC GLUCOSE Collection Time: 04/27/17 5:24 PM # # Low-High Glucose, POC 167 (H) 70 - 100 MG/DL PHOSPHORUS Collection Time: 04/27/17 8:55 PM # # Low-High Phosphorus 2.5 2.0 - 4.0 MG/DL FIBRINOGEN Collection Time: 04/27/17 8:55 PM # # Low-High Fibrinogen 373 200 - 400 MG/DL URIC ACID Collection Time: 04/27/17 8:55 PM # # Low-High Uric Acid 3.8 2.0 - 7.0 MG/DL PTT (APTT) Collection Time: 04/27/17 8:55 PM # # Low-High APTT 19.2 (L) 21.0 - 39.0 SEC PROTIME INR (PT) Collection Time: 04/27/17 8:55 PM # # Low-High INR 1.4 (H) 0.8 - 1.2 BASIC METABOLIC PANEL Collection Time: 04/27/17 8:55 PM # # Low-High Sodium 140 137 - 147 MMOL/L Potassium 3.7 3.5 - 5.1 MMOL/L Chloride 113 (H) 98 - 110 MMOL/L CO2 22 21 - 30 MMOL/L Anion Gap 5 3 - 12 Glucose 202 (H) 70 - 100 MG/DL Blood Urea Nitrogen 30 (H) 7 - 25 MG/DL Creatinine 1.02 (H) 0.4 - 1.00 MG/DL Calcium 7.6 (L) 8.5 - 10.6 MG/DL eGFR Non 56 (L) >60 mL/min eGFR >60 >60 mL/min CBC AND DIFF Collection Time: 04/27/17 8:55 PM # # Low-High White Blood Cells 26.7 (H) 4.5 - 11.0 K/UL RBC 2.17 (L) 4.0 - 5.0 M/UL Hemoglobin 7.1 (L) 12.0 - 15.0 GM/DL Hematocrit 20.2 (L) 36 - 45 % MCV 93.4 80 - 100 FL MCH 32.8 26 - 34 PG MCHC 35.1 32.0 - 36.0 G/DL RDW 25.2 (H) 11 - 15 % Platelet Count 12 (LL) 150 - 400 K/UL MPV 10.2 7 - 11 FL Segmented Neutrophils 10 (L) 41 - 77 % Lymphocytes 17 (L) 24 - 44 % Monocytes 32 (H) 4 - 12 % Metamyelocyte 1 % Myelocyte 1 % Promyelocyte 5 % Blast 34 % ANISO PRESENT HYPO PRESENT Ovalocyte PRESENT Platelet Estimate MKD DEC Absolute Neutrophil Count Manual 2.67 1.8 - 7.0 K/UL POC GLUCOSE Collection Time: 04/27/17 9:07 PM # # Low-High Glucose, POC 221 (H) 70 - 100 MG/DL LDH-LACTATE DEHYDROGENASE Collection Time: 04/28/17 4:00 AM # # Low-High Lactate Dehydrogenase 577 (H) 100 - 210 U/L COMPREHENSIVE METABOLIC PANEL Collection Time: 04/28/17 4:00 AM # # Low-High Sodium 140 137 - 147 MMOL/L Potassium 3.8 3.5 - 5.1 MMOL/L Chloride 112 (H) 98 - 110 MMOL/L Glucose 139 (H) 70 - 100 MG/DL Blood Urea Nitrogen 29 (H) 7 - 25 MG/DL Creatinine 1.00 0.4 - 1.00 MG/DL Calcium 7.9 (L) 8.5 - 10.6 MG/DL Total Protein 5.5 (L) 6.0 - 8.0 G/DL Total Bilirubin 0.6 0.3 - 1.2 MG/DL Albumin 2.2 (L) 3.5 - 5.0 G/DL Alk Phosphatase 32 25 - 110 U/L AST (SGOT) 12 7 - 40 U/L CO2 23 21 - 30 MMOL/L ALT (SGPT) 5 (L) 7 - 56 U/L Anion Gap 5 3 - 12 eGFR Non 57 (L) >60 mL/min eGFR >60 >60 mL/min MAGNESIUM Collection Time: 04/28/17 4:00 AM # # Low-High Magnesium 1.8 1.6 - 2.6 mg/dL PHOSPHORUS Collection Time: 04/28/17 4:00 AM # # Low-High Phosphorus 3.1 2.0 - 4.0 MG/DL FIBRINOGEN Collection Time: 04/28/17 4:00 AM # # Low-High Fibrinogen 443 (H) 200 - 400 MG/DL URIC ACID Collection Time: 04/28/17 4:00 AM # # Low-High Uric Acid 3.9 2.0 - 7.0 MG/DL PTT (APTT) Collection Time: 04/28/17 4:00 AM # # Low-High APTT 25.3 21.0 - 39.0 SEC PROTIME INR (PT) Collection Time: 04/28/17 4:00 AM # # Low-High INR 1.4 (H) 0.8 - 1.2 CBC AND DIFF Collection Time: 04/28/17 4:00 AM # # Low-High White Blood Cells 29.1 (H) 4.5 - 11.0 K/UL RBC 2.17 (L) 4.0 - 5.0 M/UL Hemoglobin 7.2 (L) 12.0 - 15.0 GM/DL Hematocrit 20.9 (L) 36 - 45 % MCV 96.3 80 - 100 FL MCH 33.2 26 - 34 PG MCHC 34.5 32.0 - 36.0 G/DL RDW 24.7 (H) 11 - 15 % Platelet Count 14 (LL) 150 - 400 K/UL MPV 10.1 7 - 11 FL Nucleated RBCs 2 K/UL Segmented Neutrophils 16 (L) 41 - 77 % Bands 3 0 - 10 % Lymphocytes 23 (L) 24 - 44 % Monocytes 31 (H) 4 - 12 % Promyelocyte 2 % Blast 25 % ANISO PRESENT POLY PRESENT Platelet Estimate MKD DEC Absolute Neutrophil Count Manual 5.53 1.8 - 7.0 K/UL POC GLUCOSE Collection Time: 04/28/17 9:51 AM # # Low-High Glucose, POC 167 (H) 70 - 100 MG/DL PHOSPHORUS Collection Time: 04/28/17 12:40 PM # # Low-High Phosphorus 2.9 2.0 - 4.0 MG/DL FIBRINOGEN Collection Time: 04/28/17 12:40 PM # # Low-High Fibrinogen 349 200 - 400 MG/DL URIC ACID Collection Time: 04/28/17 12:40 PM # # Low-High Uric Acid 3.5 2.0 - 7.0 MG/DL PTT (APTT) Collection Time: 04/28/17 12:40 PM # # Low-High APTT 22.0 21.0 - 39.0 SEC PROTIME INR (PT) Collection Time: 04/28/17 12:40 PM # # Low-High INR 1.3 (H) 0.8 - 1.2 BASIC METABOLIC PANEL Collection Time: 04/28/17 12:40 PM # # Low-High Sodium 139 137 - 147 MMOL/L Potassium 3.8 3.5 - 5.1 MMOL/L Chloride 110 98 - 110 MMOL/L CO2 24 21 - 30 MMOL/L Anion Gap 5 3 - 12 Glucose 161 (H) 70 - 100 MG/DL Blood Urea Nitrogen 27 (H) 7 - 25 MG/DL Creatinine 0.98 0.4 - 1.00 MG/DL Calcium 8.1 (L) 8.5 - 10.6 MG/DL eGFR Non 58 (L) >60 mL/min eGFR >60 >60 mL/min CBC AND DIFF Collection Time: 04/28/17 12:40 PM # # Low-High White Blood Cells 33.8 (H) 4.5 - 11.0 K/UL RBC 2.29 (L) 4.0 - 5.0 M/UL Hemoglobin 7.2 (L) 12.0 - 15.0 GM/DL Hematocrit 21.4 (L) 36 - 45 % MCV 93.6 80 - 100 FL MCH 31.5 26 - 34 PG MCHC 33.6 32.0 - 36.0 G/DL RDW 23.6 (H) 11 - 15 % Platelet Count 16 (LL) 150 - 400 K/UL MPV 9.8 7 - 11 FL Segmented Neutrophils 12 (L) 41 - 77 % Bands 1 0 - 10 % Lymphocytes 16 (L) 24 - 44 % Monocytes 42 (H) 4 - 12 % Blast 29 % ANISO PRESENT POIK PRESENT POLY PRESENT Ovalocyte PRESENT Platelet Estimate MKD DEC Absolute Neutrophil Count Manual 4.40 1.8 - 7.0 K/UL CMV AB IGG Collection Time: 04/28/17 12:40 PM # # Low-High CMV, IgG NEG POC GLUCOSE Collection Time: 04/28/17 1:36 PM # # Low-High Glucose, POC 167 (H) 70 - 100 MG/DL POC GLUCOSE Collection Time: 04/28/17 6:17 PM # # Low-High Glucose, POC 209 (H) 70 - 100 MG/DL POC GLUCOSE Collection Time: 04/28/17 8:10 PM # # Low-High Glucose, POC 321 (H) 70 - 100 MG/DL PHOSPHORUS Collection Time: 04/28/17 8:17 PM # # Low-High Phosphorus 3.1 2.0 - 4.0 MG/DL FIBRINOGEN Collection Time: 04/28/17 8:17 PM # # Low-High Fibrinogen 443 (H) 200 - 400 MG/DL URIC ACID Collection Time: 04/28/17 8:17 PM # # Low-High Uric Acid 3.3 2.0 - 7.0 MG/DL PTT (APTT) Collection Time: 04/28/17 8:17 PM # # Low-High APTT 20.5 (L) 21.0 - 39.0 SEC PROTIME INR (PT) Collection Time: 04/28/17 8:17 PM # # Low-High INR 1.3 (H) 0.8 - 1.2 BASIC METABOLIC PANEL Collection Time: 04/28/17 8:17 PM # # Low-High Sodium 136 (L) 137 - 147 MMOL/L Potassium 4.5 3.5 - 5.1 MMOL/L Chloride 109 98 - 110 MMOL/L CO2 22 21 - 30 MMOL/L Anion Gap 5 3 - 12 Glucose 310 (H) 70 - 100 MG/DL Blood Urea Nitrogen 26 (H) 7 - 25 MG/DL Creatinine 1.01 (H) 0.4 - 1.00 MG/DL Calcium 7.9 (L) 8.5 - 10.6 MG/DL eGFR Non 56 (L) >60 mL/min eGFR >60 >60 mL/min CBC AND DIFF Collection Time: 04/28/17 8:17 PM # # Low-High White Blood Cells 15.1 (H) 4.5 - 11.0 K/UL RBC 2.32 (L) 4.0 - 5.0 M/UL Hemoglobin 7.5 (L) 12.0 - 15.0 GM/DL Hematocrit 22.3 (L) 36 - 45 % MCV 96.1 80 - 100 FL MCH 32.3 26 - 34 PG MCHC 33.6 32.0 - 36.0 G/DL RDW 24.6 (H) 11 - 15 % Platelet Count 17 (LL) 150 - 400 K/UL MPV 10.2 7 - 11 FL Nucleated RBCs 1 K/UL Segmented Neutrophils 11 (L) 41 - 77 % Lymphocytes 31 24 - 44 % Monocytes 31 (H) 4 - 12 % Eosinophil 1 0 - 5 % Myelocyte 3 % Promyelocyte 3 % Blast 20 % ANISO PRESENT POIK PRESENT POLY PRESENT Ovalocyte PRESENT Yaneli Rods PRESENT Platelet Estimate MKD DEC Absolute Neutrophil Count Manual 1.66 (L) 1.8 - 7.0 K/UL LDH-LACTATE DEHYDROGENASE Collection Time: 04/29/17 2:30 AM # # Low-High Lactate Dehydrogenase 641 (H) 100 - 210 U/L COMPREHENSIVE METABOLIC PANEL Collection Time: 04/29/17 2:30 AM # # Low-High Sodium 137 137 - 147 MMOL/L Potassium 4.5 3.5 - 5.1 MMOL/L Chloride 110 98 - 110 MMOL/L Glucose 214 (H) 70 - 100 MG/DL Blood Urea Nitrogen 25 7 - 25 MG/DL Creatinine 0.95 0.4 - 1.00 MG/DL Calcium 8.0 (L) 8.5 - 10.6 MG/DL Total Protein 5.9 (L) 6.0 - 8.0 G/DL Total Bilirubin 0.5 0.3 - 1.2 MG/DL Albumin 2.4 (L) 3.5 - 5.0 G/DL Alk Phosphatase 34 25 - 110 U/L AST (SGOT) 14 7 - 40 U/L CO2 23 21 - 30 MMOL/L ALT (SGPT) 8 7 - 56 U/L Anion Gap 4 3 - 12 eGFR Non >60 >60 mL/min eGFR >60 >60 mL/min MAGNESIUM Collection Time: 04/29/17 2:30 AM # # Low-High Magnesium 2.1 1.6 - 2.6 mg/dL PHOSPHORUS Collection Time: 04/29/17 2:30 AM # # Low-High Phosphorus 3.4 2.0 - 4.0 MG/DL FIBRINOGEN Collection Time: 04/29/17 2:30 AM # # Low-High Fibrinogen 343 200 - 400 MG/DL URIC ACID Collection Time: 04/29/17 2:30 AM # # Low-High Uric Acid 3.3 2.0 - 7.0 MG/DL PTT (APTT) Collection Time: 04/29/17 2:30 AM # # Low-High APTT 20.5 (L) 21.0 - 39.0 SEC PROTIME INR (PT) Collection Time: 04/29/17 2:30 AM # # Low-High INR 1.4 (H) 0.8 - 1.2 CBC AND DIFF Collection Time: 04/29/17 2:30 AM # # Low-High White Blood Cells 17.2 (H) 4.5 - 11.0 K/UL RBC 2.23 (L) 4.0 - 5.0 M/UL Hemoglobin 7.4 (L) 12.0 - 15.0 GM/DL Hematocrit 21.3 (L) 36 - 45 % MCV 95.5 80 - 100 FL MCH 33.3 26 - 34 PG MCHC 34.8 32.0 - 36.0 G/DL RDW 24.7 (H) 11 - 15 % Platelet Count 13 (LL) 150 - 400 K/UL MPV 10.0 7 - 11 FL Segmented Neutrophils 19 (L) 41 - 77 % Lymphocytes 13 (L) 24 - 44 % Monocytes 24 (H) 4 - 12 % Myelocyte 4 % Promyelocyte 2 % Blast 38 % ANISO PRESENT HYPO PRESENT POIK PRESENT POLY PRESENT Ovalocyte PRESENT Platelet Estimate MKD DEC Absolute Neutrophil Count Manual 3.27 1.8 - 7.0 K/UL POC GLUCOSE Collection Time: 04/29/17 7:15 AM # # Low-High Glucose, POC 218 (H) 70 - 100 MG/DL PHOSPHORUS Collection Time: 04/29/17 11:28 AM # # Low-High Phosphorus 3.2 2.0 - 4.0 MG/DL FIBRINOGEN Collection Time: 04/29/17 11:28 AM # # Low-High Fibrinogen 388 200 - 400 MG/DL URIC ACID Collection Time: 04/29/17 11:28 AM # # Low-High Uric Acid 3.4 2.0 - 7.0 MG/DL PTT (APTT) Collection Time: 04/29/17 11:28 AM # # Low-High APTT 18.7 (L) 21.0 - 39.0 SEC PROTIME INR (PT) Collection Time: 04/29/17 11:28 AM # # Low-High INR 1.3 (H) 0.8 - 1.2 BASIC METABOLIC PANEL Collection Time: 04/29/17 11:28 AM # # Low-High Sodium 137 137 - 147 MMOL/L Potassium 4.5 3.5 - 5.1 MMOL/L Chloride 108 98 - 110 MMOL/L CO2 22 21 - 30 MMOL/L Anion Gap 7 3 - 12 Glucose 227 (H) 70 - 100 MG/DL Blood Urea Nitrogen 28 (H) 7 - 25 MG/DL Creatinine 1.01 (H) 0.4 - 1.00 MG/DL Calcium 8.2 (L) 8.5 - 10.6 MG/DL eGFR Non 56 (L) >60 mL/min eGFR >60 >60 mL/min CBC AND DIFF Collection Time: 04/29/17 11:28 AM # # Low-High White Blood Cells 24.0 (H) 4.5 - 11.0 K/UL RBC 2.48 (L) 4.0 - 5.0 M/UL Hemoglobin 8.1 (L) 12.0 - 15.0 GM/DL Hematocrit 23.2 (L) 36 - 45 % MCV 93.8 80 - 100 FL MCH 32.9 26 - 34 PG MCHC 35.1 32.0 - 36.0 G/DL RDW 23.0 (H) 11 - 15 % Platelet Count 17 (LL) 150 - 400 K/UL MPV 11.0 7 - 11 FL Segmented Neutrophils 27 (L) 41 - 77 % Bands 3 0 - 10 % Lymphocytes 22 (L) 24 - 44 % Monocytes 21 (H) 4 - 12 % Promyelocyte 1 % Blast 26 % ANISO PRESENT POIK PRESENT POLY PRESENT Platelet Estimate MKD DEC Absolute Neutrophil Count Manual 7.20 (H) 1.8 - 7.0 K/UL POC GLUCOSE Collection Time: 04/29/17 12:32 PM # # Low-High Glucose, POC 259 (H) 70 - 100 MG/DL Radiology Review: Pertinent radiology reviewed. Bruno Duval MD * Arnold Sparks, PT - 04/29/2017 11:30 AM CDT PHYSICAL THERAPY ASSESSMENT MOBILITY: Mobility Progressive Mobility Level: Stand Level of Assistance: Assist X2 Assistive Device: Walker Time Tolerated: 11-30 minutes Activity Limited By: Fatigue;Weakness SUBJECTIVE: Subjective Significant hospital events: Patient is a 56 year old female with new diagnosis of AML. Patient admitted for start of chemotherapy. Patient is obese with bariatric bed in place. Mental / Cognitive Status: Alert;Oriented;Cooperative Persons Present: Nursing Staff Pain: Patient has no complaint of pain Pain Interventions: Patient agrees to participate in therapy Comments: Patient sitting up at edge of bed upon entering room. RN able to assist patient to edge of bed prior to entering. Ambulation Assist: Independent Mobility in Community with Device Patient Owned Equipment: Roller Walker Home Situation: Lives with Family Type of Home: House Entry Stairs: 3-5 Stairs;Rail on Both Sides In-Home Stairs: Able to Live on One Level ROM: ROM LE ROM: Right;Limited (due to prior right knee replacement surgery) ROM Comments: Mobility also limited today due to increased swelling in lower legs. STRENGTH: Strength Overall Strength: Generalized Weakness POSTURE/NEURO: Posture / Neurological Overall Sensation/Proprioception: No Deficits Noted BED MOBILITY/TRANSFERS: Bed Mobility/Transfers Bed Mobility: Sit to Supine: Moderate Assist;x2 People;Assist with B LE;Assist with Trunk Transfer Type: Sit to/from Stand Transfer: Assistance Level: To/From;Bed;Minimal Assist Transfer: Assistive Device: Roller Walker Transfers: Type Of Assistance: Verbal Cues;For Safety Considerations End Of Activity Status: In Bed;Nursing Notified;Instructed Patient to Use Call Light BALANCE: Balance Sitting Balance: Static Sitting Balance;Standby Assist Standing Balance: Static Standing Balance;Standby Assist GAIT: Gait Comments: Patient was able to side step up edge of bed for better positioning once returned to bed. ACTIVITY/EXERCISE: Activity / Exercise Comments: Discussed bed and edge of bed level exercises to maintain activity while hospitalized. EDUCATION: Education Persons Educated: Patient Patient Barriers To Learning: None Noted Teaching Methods: Verbal Instruction Patient Response: Verbalized Understanding Topics: Plan/Goals of PT Interventions;Use of Assistive Device/Orthosis; Mobility Progression;Exercise Program;Safety Awareness;Up with Assist Only; Importance of Increasing Activity ASSESSMENT/PROGRESS: Assessment/Progress Impaired Mobility Due To: Decreased Strength;Decreased Activity Tolerance; Medical Status Limitation Assessment/Progress: Should Improve w/ Continued PT;Expect Slow Progress Comments: Patient functionally will be challenged due to strenuous chemotherapy regimen that will likely knock a great deal of her strength and energy out of her. Patient will benefit from further acute therapy but may be limited in her ability due to current weakness as well as obesity and likely low prior level of activity. AM-PAC 6 Clicks Basic Mobility Inpatient Turning from your back to your side while in a flat bed without using bed rails : A lot Moving from lying on your back to sitting on the side of a flatbed without using bedrails : A Lot Moving to and from a bed to a chair (including a wheelchair): A Lot Standing up from a chair using your arms (e.g. wheelchair, or bedside chair): A Lot To walk in hospital room: A Lot Climbing 3-5 steps with a railing: A Lot Raw Score: 12 Standardized (T-scale) Score: 32.23 Basic Mobility CMS 0-100%: 61.94 CMS G Code Modifier for Basic Mobility: CL GOALS: Goals Goal Formulation: With Patient Time For Goal Achievement: 7 days Pt Will Go Supine To/From Sit: w/ Minimal Assist Pt Will Transfer Bed/Chair: w/ Minimal Assist Pt Will Transfer Sit to Stand: w/ Minimal Assist Pt Will Ambulate: 11-30 Feet, w/ Walker, w/ Minimal Assist PLAN: Plan Treatment Interventions: Mobility Training;Strengthening;Balance Activities; Coordination Training;Endurance Training Plan Frequency: 5 Days per Week Comments: PT to continue to work on general strength to improve ability to transfer in/out of bed as well as ambulation with 2nd person assist for safety. RECOMMENDATIONS: PT Discharge Recommendations PT Discharge Recommendations: Inpatient Setting;to address deficits, maximize function and improve safety Equipment Recommendations: Patient owns necessary equipment Therapist: Arnold Sparks DPT Date: 04/29/2017 * Alma Rosa Fernando RN - 04/28/2017 10:37 PM CDT Shift: Night NEWS Score: 2000:2 0000:2 0400:2 Pain: no pain reported during this shift Nutrition: DM diet GI/: LBM: 04/27, Gonzalez in place, good urine output Activity: Bedrest, has been refusing q 2 hr turns, patient repositions herself in bed with trapeze over the bed Family: supportive family Last Shower: Bed bath done 04/28 New Events or Follow-up: No replacements this morning * Keerthi Gage RN - 04/28/2017 6:40 PM CDT Shift: Day Shift, VSS, no acute events. Day 1 of chemo today, infusing without issues. NEWS Score: 2-2-1 Pain: Denies pain this shift. Nutrition: Poor appetite this shift, 25% of two small meals today. Very little PO intake despite encouragement. denies N/V. Cardio/Pulm: O2 adequate on RA, denies SOA, 1+ edema to BLE. GI/: Gonzalez in place dark yellow to orange/red urine post chemo with sediment. Last BM 04/27 Activity: Up to standing at edge of bed this shift. Q2 turns for repositioning. Family: Supporitve family at bedside this afternoon/eveing. Last Shower: this afternoon 04/28 New Events or Follow-up: - Q4 blood return checks on chemo line - Q8 labs at 1999 * Arnold Sparks, PT - 04/28/2017 3:47 PM CDT PHYSICAL THERAPY NOTE PT met with patient this afternoon. Patient getting her first chemotherapy treatment and visiting with her family visitors. Patient states she would prefer to allow her chemotherapy to run for now and would like for PT to follow up tomorrow. PT explained role and benefits of mobility while in the hospital. Patient seems willing to participate in future. Patient does present with slight anxiety and may benefit from getting pre-medicated before sessions but will further determine this. PT to perform assessment on . Therapist: Arnold Sparks DPT Date: 04/28/2017 * Keerthi Gage RN - 04/28/2017 2:04 PM CDT . CHEMO NOTE Verified chemo consent signed and in chart. yes Verified initiate chemo order in O2 yes Blood return positive via: Right chest picc, león lumen- cytarabine. white lumen- daunorubicin Premedications/Prehydration given as ordered. yes BSA and dose double checked (agree with orders as written) with: Aureliano Fong RN Arm band verified at bedside with second RN (same RN as above unless otherwise noted). Labs/applicable tests checked: yes Chemo drug/dose/route:cytarabine (CYTOSAR) 520 mg in sodium chloride 0.9% (NS) 1 ,000 mL IVPB(C100) : Dose 200 mg/m2 2.6 m2 (Treatment Plan Recorded) : Admin Dose 520 mg : 41.7 mL/hr : Intravenous : ONCE DAUNOrubicin (CERUBIDINE) injection 156 mg : Dose 60 mg/m2 2.6 m2 ( Treatment Plan Recorded) : Admin Dose 156 mg : Intravenous : ONCE Rate verified with second RN (same RN as above unless otherwise noted). Patient education offered and stated understanding. * Giovanna Bhatt M.Div, [facility] - 04/28/2017 1:48 PM CDT Medicine Man Note: Admit Date: 04/24/2017 Today, the patient's greatest worry is that her chemotherapy will cause her to be sick. The general labor provided comforting words and support. Date/Time: User: Pager: [phone] 04/28/2017 1:48 PM Giovanna Bhatt M.Div, [facility] PCU 4 PCU * Ari Collazo MD - 04/28/2017 10:36 AM CDT Formatting of this note may be different from the original. 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 Hypoglycemia is recurrent in spite of D5 normal saline drip. Recurrent UTI Acute leukemia A. fib CKD stage III Recommendations: - Hypoglycemia has resolved. - Hyperglycemia is at acceptable range. - continue [facility] - plan to restart glimepiride lower dose at discharge. we will continue to follow. Patient was seen and discussed with Dr. Valle History of Present Illness Giselle Moraes is a 56 y.o. female with past medical history of A. fib, type 2 diabetes, CKD stage III, UTI, anxiety was admitted for suspicion for acute leukemia. Endocrinology was consulted for recurrent hypoglycemia. Patient is still very fatigued. No more hypoglycemia. Poor appetite. Does not want to eat breakfast Estimated Creatinine Clearance: 91.2 mL/min (based on Cr of 1). 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 No pertinent family history. Allergies Allergies Allergen Reactions Ciprofloxacin SEE COMMENTS Per Nephrology doctors. Levofloxacin SEE COMMENTS Per nephrology doctors. Nsaids (Non-Steroidal Anti-Inflammatory Drug) SEE COMMENTS Per nephrology doctors. Bactrim [Sulfamethoxazole-Trimethoprim] SEE COMMENTS Per Nephrology Doctors. Contrast Dye Iv, Iodine Containing [Iodinated Contrast- Oral And Iv Dye] SEE COMMENTS Per nephrology doctors. Review of Systems A comprehensive 14-point review of systems was negative with exception of: Fatigue, feeling cold, shaky Medications Scheduled Meds: acyclovir (ZOVIRAX) tablet 400 mg 400 mg Oral BID allopurinol (ZYLOPRIM) tablet 300 mg 300 mg Oral QDAY cefepime (MAXIPIME) 2 g/100 ml iso-osmotic IVPB 2 g Intravenous Q12H* cytarabine (CYTOSAR) 520 mg in sodium chloride 0.9% (NS) 1,000 mL IVPB(C100) 200 mg/m2 (Treatment Plan Recorded) Intravenous ONCE [START ON 04/29/2017] cytarabine (CYTOSAR) 520 mg in sodium chloride 0.9% (NS) 1 ,000 mL IVPB(C100) 200 mg/m2 (Treatment Plan Recorded) Intravenous ONCE DAUNOrubicin (CERUBIDINE) injection 156 mg 60 mg/m2 (Treatment Plan Recorded) Intravenous ONCE [START ON 04/29/2017] DAUNOrubicin (CERUBIDINE) injection 156 mg 60 mg/m2 ( Treatment Plan Recorded) Intravenous ONCE dexamethasone (DECADRON) tablet 12 mg 12 mg Oral Q24H* diltiazem CD (cardIZEM CD) capsule 240 mg 240 mg Oral QDAY insulin aspart (NOVOLOG FLEXPEN) injection PEN 0-14 Units 0-14 Units Subcutaneous ACHS micafungin (MYCAMINE) 50 mg in sodium chloride 0.9% (NS) 105 mL IVPB 50 mg Intravenous Q24H* ondansetron (ZOFRAN) tablet 16 mg 16 mg Oral Q24H* polyethylene glycol 3350 (MIRALAX) packet 17 g 1 packet Oral QDAY senna (SENOKOT) tablet 1 tablet 1 tablet Oral BID SODIUM CHLORIDE 0.9 % IV SOLP (Cabinet Override) NOW Continuous Infusions: sodium chloride 0.9 % infusion PRN and Respiratory Meds:acetaminophen Q6H PRN, ALPRAZolam BID PRN, alteplase PRN (Compliance Representative from Rx), LORazepam Q6H PRN, LORazepam injection Q6H PRN, magnesium sulfate 4 g/50 mL PRN, milk of magnesia (CONC) Q6H PRN, saliva, synthetic PRN, sodium chloride 0.9% irrigation bottle PRN Physical Examination Vital Signs: Last Vital Signs: 24 Hour Range BP: 121/81 (04/28 824) Temp: 36.8 C (98.2 F) (04/28 824) Pulse: 100 (04/28 824) Respirations: 20 PER MINUTE (04/28 824) SpO2: 95 % (04/28 824) O2 Delivery: None (Room Air) (04/28 824) SpO2 Pulse: 91 (04/27 1600) BP: (104-134)/(57-90) Temp: [36.4 C (97.5 F)-37.2 C (98.9 F)] Pulse: [80-100] Respirations: [20 PER MINUTE-26 PER MINUTE] SpO2: [95 %-99 %] O2 Delivery: None (Room Air) General appearance: alert, oriented, looking tired HENT: Dry oral mucosa, dried blood on lips Lungs: no wheezing, rhonchi, rales appreciated Heart: Regular rhythm, reg rate, with no murmur, rub, gallop Abdomen: soft, non-tender, non-distended, normoactive bowel sounds, Ext: No clubbing, cyanosis or edema Skin: no rashes/lesions Lab Review Point of Care Testing (Last 24 hours) Glucose: (!) 139 (04/28/17 0400) POC Glucose (Download): (!) 167 (04/28/17 09) Recent Labs 04/25/17 1255 04/25/17 1943 04/26/17 0430 04/26/17 1157 04/26/17 1953 04/27/17 0524 04/27/17 1226 [id number]/28/17 0400 NA 132* 134* 136* 136* 137 138 137 140 140 K 4.5 4.0 4.1 3.9 3.7 3.8 4.0 3.7 3.8 CL 105 106 107 109 109 110 109 113* 112* CO2 21 22 23 22 21 23 21 22 23 GAP 6 6 6 5 7 5 7 5 5 BUN 35* 39* 40* 41* 38* 36* 33* 30* 29* CR 1.75* 1.75* 1.50* 1.32* 1.18* 1.05* 0.97 1.02* 1.00 GLU 202* 275* 173* 168* 233* 175* 155* 202* 139* CA 8.0* 7.8* 8.0* 7.9* 8.0* 8.1* 8.0* 7.6* 7.9* ALBUMIN -- -- 2.4* -- -- 2.4* -- -- 2.2* MG 2.1 -- 2.0 -- -- 1.9 -- -- 1.8 PO4 3.7 4.3* 4.0 3.5 3.2 3.2 2.5 2.5 3.1 Recent Labs 04/25/17 1255 04/25/17 1943 04/26/17 0430 04/26/17 1157 04/26/17195204/27/17 0524 04/27/17 1226 04/27/17205404/28/17 0400 WBC 78.3* 56.3* 49.5* 51.3* 35.5* 32.6* 29.1* 26.7* 29.1* HGB 7.8* 7.2* 6.9* 6.2* 7.5* 7.1* 7.0* 7.1* 7.2* HCT 22.7* 21.2* 20.3* 17.7* 21.6* 20.9* 20.5* 20.2* 20.9* PLTCT 30* 25* 21* 18* 14* 15* 13* 12* 14* INR 1.9* 1.8* 1.6* 1.6* 1.6* 1.4* 1.5* 1.4* 1.4* PTT 30.8 29.7 24.9 28.5 27.0 24.3 26.4 19.2* 25.3 AST -- -- 15 -- -- 13 -- -- 12 ALT -- -- 5* -- -- 5* -- -- 5* ALKPHOS -- -- 36 -- -- 32 -- -- 32 Estimated Creatinine Clearance: 91.2 mL/min (based on Cr of 1). Vitals: 04/25/17 0215 04/25/17 1145 04/28/17 0904 Weight: (!) 142.4 kg (314 lb) (!) 142.9 kg (315 lb 0.6 oz) (!) 143.2 kg (315 lb 9.6 oz) Thyroid Studies No results found for: TSH, FREET4, FREEINDEX No results found for: FREET3, [id number], THYBINDGLB Ari Collazo MD Endocrinology Fellow [id number] [phone] * Bruno Duval MD - 04/28/2017 9:53 AM CDT Formatting of this note may be different from the original. 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 Flow cytometry 38% blasts- positive for CD13, CD33, CD38, CD117, HLA-DR and cytoplasmic myeloperoxidase. They are negative for CD11b, CD11c, CD14, CD34 , CD64, TdT, B- and T-cell markers. - Patient on DTI- apixaban for atrial fibrillation, now on hold - Obtain 2 D echo - normal, EF-60%. Cardiology consulted. - Stop Hydrea - Monitor TLS labs every 8 hours, DIC labs daily - Start 7+3 04/28/2017, FLT3 status pending, may add midostaurin INFORMED CONSENT FOR CHEMOTHERAPY 04/28/2017 Giselle Moraes [id number] Diagnosis / Stage: AML This is to state that informed consent for the chemotherapy was obtained. We reviewed the side effects of the drugs (cytarabine/daunorubicin). Risk for infections with the development of cytopenias was discussed. Need for central venous catheter placement was also reviewed. Post chemo use of anti-infective agents to decrease risk for infections was discussed. The patient and his family were given ample opportunity to ask questions which were answered to their satisfaction. The patient was given a copy of the consent to read and sign. Please refer to full consent for details. Start time: 1000 End Time: 1020 Heme: - Anemia and thrombocytopenia due to underlying AML - Previously on anticoagulation with apixaban for Atrial fibrillation, will hold for now with thrombocytopenia - Anticoagulation with lovenox for DVT ppx contraindicated due to thrombocytopenia, SCD's when on bed FEN/Renal: - Creatinine 1.0, improved. - Appreciate renal recommendations - Uric acid 8.1, received 1 dose of rasburicase - Continue allopurinol - Monitor electrolytes, will be high goal replacement with h/o atrial fibrillation - Close monitoring of fluid status ID: - Presents with UTI and fever - Urine cx from [facility] 04/23: + E.Coli resistant to ampicillin, Bactrim, Nitrofurantoin. Intermediate resistance to gent and Unasyn. Susceptible to ceftriaxone, zosyn, meropenem, cipro and aztreonam - Blood cx x [address] [facility] 04/23: NGTD - Cefepime Day 5, had vancomycin and daptomycin on 04/24-04/25, discontinued, start vanco if febrile. Needs to complete at least a 14 day course for complicated UTI. - Has urinary catheter in place, did have urinary retention after trying to remove - On prophylaxis with micafungin and acyclovir - Continue IV fluids/ hydration. Monitor closely GI: - No nausea, vomiting or diarrhea - Low albumin. Liver functions normal - Obese, weight 315 lbs - Standing weights daily Endo: - Has type II DM, on glimiperide has been discontinued on admission - Had persistent low blood sugars, now blood sugars better - Endocrinology consultation obtained and appreciate recommendations CVS: - H/o atrial fibrillation, rate controlled. She was on COUNTER TOP ASSEMBLER atenolol, diltiazem furosemide - Mild moderate - Will hold apixaban atenolol and continue diltiazem - If rate is increased, may start Atenolol 25 or 50 mg daily as BP permits. - Cardiology opinion appreciated, 2d Echo- normal EF 60%. Psych/Social: Pleasant, no issues - On alprazolam for anxiety, currently continued at low dose - Lives in [facility], , currently on disability, son lives in [facility] - Need to schedule family meeting to discuss future treatment course Subjective: Giselle Moraes is a 56 y.o. female. Feels fatigued, discussed starting chemotherapy today. Review of Systems: Constitutional: + fatigue, fevers, chills, sweats/diaphoresis, maliase, anorexia , appetite change, weight change (loss) HEENT: Negative. No ear/ nose problems. Bleeding of lips due to dryness. No gum bleeding Respiratory: +cough, sputum, mild SOB Cardiovascular: Negative for chest pain, chest pressure, palpitations, edema in extremeties Gastrointestional: diarrhea intermittent. No abdominal pain/ nausea or vomiting Gernitourinary: + dysuria, no hematuria Musculoskeletal:Negative Skin: Negative Psych: + anxiety Objective: Medications: Scheduled Meds: acyclovir (ZOVIRAX) tablet 400 mg 400 mg Oral BID allopurinol (ZYLOPRIM) tablet 300 mg 300 mg Oral QDAY cefepime (MAXIPIME) 2 g/100 ml iso-osmotic IVPB 2 g Intravenous Q12H* diltiazem CD (cardIZEM CD) capsule 240 mg 240 mg Oral QDAY hydroxyurea (HYDREA) capsule 1,000 mg 1,000 mg Oral BID insulin aspart (NOVOLOG FLEXPEN) injection PEN 0-14 Units 0-14 Units Subcutaneous ACHS micafungin (MYCAMINE) 50 mg in sodium chloride 0.9% (NS) 105 mL IVPB 50 mg Intravenous Q24H* polyethylene glycol 3350 (MIRALAX) packet 17 g 1 packet Oral QDAY senna (SENOKOT) tablet 1 tablet 1 tablet Oral BID SODIUM CHLORIDE 0.9 % IV SOLP (Cabinet Override) NOW Continuous Infusions: lactated ringers infusion 100 mL/hr at 04/28/17 0407 PRN and Respiratory Meds:acetaminophen Q6H PRN, ALPRAZolam BID PRN, alteplase PRN (Compliance Representative from Rx), magnesium sulfate 4 g/50 mL PRN, milk of magnesia (CONC) Q6H PRN, saliva, synthetic PRN, sodium chloride 0.9% irrigation bottle PRN Vital Signs: Last Filed Vital Signs: 24 Hour Range BP: 121/81 (04/28 824) Temp: 36.8 C (98.2 F) (04/28 824) Pulse: 100 (04/28 824) Respirations: 20 PER MINUTE (04/28 824) SpO2: 95 % (04/28 824) O2 Delivery: None (Room Air) (04/28 824) SpO2 Pulse: 91 (04/27 1600) BP: (104-134)/(51-90) Temp: [36.4 C (97.5 F)-37.2 C (98.9 F)] Pulse: [80-100] Respirations: [18 PER MINUTE-26 PER MINUTE] SpO2: [94 %-99 %] O2 Delivery: None (Room Air) Intensity Pain Scale 0-10 (Pain 1): (not recorded) Vitals: 04/25/17 0215 04/25/17 1145 04/28/17 0904 Weight: (!) 142.4 kg (314 lb) (!) 142.9 kg (315 lb 0.6 oz) (!) 143.2 kg (315 lb 9.6 oz) Intake/Output Summary: (Last 24 hours) Intake/Output Summary (Last 24 hours) at 04/28/17 0953 Last data filed at 04/28/17 0855 Gross per 24 hour Intake 2653 ml Output 2100 ml Net 553 ml Physical Exam: Performance Status (Karnofsky): 40% Disabled, requires special care and assistance General: awake & oriented, no acute distress, appears stated age, Morbidly obese HENT: normocephalic, atraumatic, non-icteric, clear conjunctivae, no adenopathy. Mild bleeding/ clotted blood onlips, no oral bleeding or gum bleeding Eyes: Conjunctuvae clear. PERRL, EOMs intact. CV: S1, S2, regular rhythm and rate, no murmur, click, rub Lungs: clear to ausculation bilaterally, non-labored Abdomen: Obese abdomen, soft, non-tender, non-distended, normo-active bowel sounds. Has indwelling catheter Extremities: no edema, cyanosis, pulses Skin: Warm & dry. Skin color, turgor normal. No rahses or lesions Neuro: drowsy but arousable and obeys all command, oriented to person, place and time. No focal deficits; normal muscle strength- normal Psych: Normal mood and affect. Judgment and thought content normal. Ventilator/Respiratory Support: On nasal cannula 2 liters Lab Review: Radiology Review: Pertinent radiology reviewed. Bruno Duval MD Today's visit was prolonged due to additional time spent discussing the plan of care. Visit Start/Stop Time: 1830/1900; Total: 30 min. * Alex Hemphill MD - 04/28/2017 9:13 AM CDT Formatting of this note may be different from the original. Staff Cardiology Progress Note Admission Date: 04/24/2017 Today's Date: 04/28/2017 LOS: 4 days Code Status: Full Code Assessment & Plan Giselle Moraes Chronic AF: - States has AF for last 1 year and never had cardioversion or ablation - Rate is mostly still under control. - Will continue with rate control. No cardioversion at present as not on AC. Could consider as outpatient, left atrium is not severely dilated. She has been followed by shake cutter - Continue Cardizem - If rate is increased, may start Atenolol 25 or 50 mg daily as BP permits. - Not a candidate for AC at present due to low platelet count-14K. Consider restarting when platelets are better and ok with hematology - Not on tele now. Mild to mod : - No work up needed at present - + 4L, Watch fluid balance. Diuresis as needed Will sign off. Please consult as needed Echo: 04/24/17: 1. EF 60%. Moderate left atrial enlargement 2. Normal RV size and systolic function. 3. Moderately dilated left atrium 4. AV is thickened. It is not well seen and a bicuspid valve cannot be excluded. There is mild to moderate . No AI Subjective Giselle Moraes 56 yr old female with h/o permanent AF, mild to moderate , AML , DM, CKD, nephrolithiasis obesity admitted with suspicious acute leukemia. Patient denies chest pain, dyspnea or palpitations. Medications Scheduled Meds: acyclovir (ZOVIRAX) tablet 400 mg 400 mg Oral BID allopurinol (ZYLOPRIM) tablet 300 mg 300 mg Oral QDAY cefepime (MAXIPIME) 2 g/100 ml iso-osmotic IVPB 2 g Intravenous Q12H* diltiazem CD (cardIZEM CD) capsule 240 mg 240 mg Oral QDAY hydroxyurea (HYDREA) capsule 1,000 mg 1,000 mg Oral BID insulin aspart (NOVOLOG FLEXPEN) injection PEN 0-14 Units 0-14 Units Subcutaneous ACHS micafungin (MYCAMINE) 50 mg in sodium chloride 0.9% (NS) 105 mL IVPB 50 mg Intravenous Q24H* polyethylene glycol 3350 (MIRALAX) packet 17 g 1 packet Oral QDAY senna (SENOKOT) tablet 1 tablet 1 tablet Oral BID Continuous Infusions: lactated ringers infusion 100 mL/hr at 04/28/17 0407 PRN and Respiratory Meds:acetaminophen Q6H PRN, ALPRAZolam BID PRN, alteplase PRN (Compliance Representative from Rx), magnesium sulfate 4 g/50 mL PRN, milk of magnesia (CONC) Q6H PRN, saliva, synthetic PRN, sodium chloride 0.9% irrigation bottle PRN Objective Vital Signs: Last Filed Vital Signs: 24 Hour Range BP: 121/81 (04/28 824) Temp: 36.8 C (98.2 F) (04/28 824) Pulse: 100 (04/28 824) Respirations: 20 PER MINUTE (04/28 824) SpO2: 95 % (10/11 0824) O2 Delivery: None (Room Air) (04/28 824) SpO2 Pulse: 91 (04/27 1600) BP: (104-134)/(51-90) Temp: [36.4 C (97.5 F)-37.2 C (98.9 F)] Pulse: [80-100] Respirations: [18 PER MINUTE-26 PER MINUTE] SpO2: [94 %-99 %] O2 Delivery: None (Room Air) Vitals: 04/25/17 0215 04/25/17 1145 04/28/17 0904 Weight: (!) 142.4 kg (314 lb) (!) 142.9 kg (315 lb 0.6 oz) (!) 143.2 kg (315 lb 9.6 oz) Intake/Output Summary: (Last 24 hours) Intake/Output Summary (Last 24 hours) at 04/28/17 0913 Last data filed at 04/28/17 0855 Gross per 24 hour Intake 2653 ml Output 2100 ml Net 553 ml Physical Exam General Appearance: no acute distress Skin: warm, moist, no ulcers HEENT: unremarkable Neck Veins: neck veins are not distended Carotid Arteries: no bruits Chest Inspection: chest is normal in appearance Auscultation/Percussion: lungs clear to auscultation, no rales, rhonchi, or wheezing Cardiac Rhythm: Irregular rhythm Cardiac Auscultation: Normal S1 & S2, no S3 or S4, no rub Murmurs: 2/6 crescendo-decrescendo systolic murmur left 2nd ICS and apex Extremities: Minimal lower extremity edema Abdominal Exam: soft, non-tender, no masses, bowel sounds normal Liver & Spleen: no organomegaly Neurologic Exam: neurological assessment grossly intact Lab Review Results for orders placed or performed during the hospital encounter of (from the past 24 hour(s)) POC GLUCOSE Collection Time: 04/27/17 12:20 PM Result Value Ref Range Glucose, POC 180 (H) 70 - 100 MG/DL PHOSPHORUS Collection Time: 04/27/17 12:26 PM Result Value Ref Range Phosphorus 2.5 2.0 - 4.0 MG/DL FIBRINOGEN Collection Time: 04/27/17 12:26 PM Result Value Ref Range Fibrinogen 417 (H) 200 - 400 MG/DL URIC ACID Collection Time: 04/27/17 12:26 PM Result Value Ref Range Uric Acid 3.9 2.0 - 7.0 MG/DL PTT (APTT) Collection Time: 04/27/17 12:26 PM Result Value Ref Range APTT 26.4 21.0 - 39.0 SEC PROTIME INR (PT) Collection Time: 04/27/17 12:26 PM Result Value Ref Range INR 1.5 (H) 0.8 - 1.2 BASIC METABOLIC PANEL Collection Time: 04/27/17 12:26 PM Result Value Ref Range Sodium 137 137 - 147 MMOL/L Potassium 4.0 3.5 - 5.1 MMOL/L Chloride 109 98 - 110 MMOL/L CO2 21 21 - 30 MMOL/L Anion Gap 7 3 - 12 Glucose 155 (H) 70 - 100 MG/DL Blood Urea Nitrogen 33 (H) 7 - 25 MG/DL Creatinine 0.97 0.4 - 1.00 MG/DL Calcium 8.0 (L) 8.5 - 10.6 MG/DL eGFR Non 59 (L) >60 mL/min eGFR >60 >60 mL/min CBC AND DIFF Collection Time: 04/27/17 12:26 PM Result Value Ref Range White Blood Cells 29.1 (H) 4.5 - 11.0 K/UL RBC 2.21 (L) 4.0 - 5.0 M/UL Hemoglobin 7.0 (L) 12.0 - 15.0 GM/DL Hematocrit 20.5 (L) 36 - 45 % MCV 92.8 80 - 100 FL MCH 31.9 26 - 34 PG MCHC 34.4 32.0 - 36.0 G/DL RDW 24.2 (H) 11 - 15 % Platelet Count 13 (LL) 150 - 400 K/UL MPV 9.8 7 - 11 FL Segmented Neutrophils 17 (L) 41 - 77 % Bands 5 0 - 10 % Lymphocytes 25 24 - 44 % Monocytes 29 (H) 4 - 12 % Metamyelocyte 2 % Myelocyte 5 % Blast 17 % ANISO PRESENT POIK PRESENT POLY PRESENT Ovalocyte PRESENT Platelet Estimate MKD DEC Absolute Neutrophil Count Manual 6.41 1.8 - 7.0 K/UL POC GLUCOSE Collection Time: 04/27/17 5:24 PM Result Value Ref Range Glucose, POC 167 (H) 70 - 100 MG/DL PHOSPHORUS Collection Time: 04/27/17 8:55 PM Result Value Ref Range Phosphorus 2.5 2.0 - 4.0 MG/DL FIBRINOGEN Collection Time: 04/27/17 8:55 PM Result Value Ref Range Fibrinogen 373 200 - 400 MG/DL URIC ACID Collection Time: 04/27/17 8:55 PM Result Value Ref Range Uric Acid 3.8 2.0 - 7.0 MG/DL PTT (APTT) Collection Time: 04/27/17 8:55 PM Result Value Ref Range APTT 19.2 (L) 21.0 - 39.0 SEC PROTIME INR (PT) Collection Time: 04/27/17 8:55 PM Result Value Ref Range INR 1.4 (H) 0.8 - 1.2 BASIC METABOLIC PANEL Collection Time: 04/27/17 8:55 PM Result Value Ref Range Sodium 140 137 - 147 MMOL/L Potassium 3.7 3.5 - 5.1 MMOL/L Chloride 113 (H) 98 - 110 MMOL/L CO2 22 21 - 30 MMOL/L Anion Gap 5 3 - 12 Glucose 202 (H) 70 - 100 MG/DL Blood Urea Nitrogen 30 (H) 7 - 25 MG/DL Creatinine 1.02 (H) 0.4 - 1.00 MG/DL Calcium 7.6 (L) 8.5 - 10.6 MG/DL eGFR Non 56 (L) >60 mL/min eGFR >60 >60 mL/min CBC AND DIFF Collection Time: 04/27/17 8:55 PM Result Value Ref Range White Blood Cells 26.7 (H) 4.5 - 11.0 K/UL RBC 2.17 (L) 4.0 - 5.0 M/UL Hemoglobin 7.1 (L) 12.0 - 15.0 GM/DL Hematocrit 20.2 (L) 36 - 45 % MCV 93.4 80 - 100 FL MCH 32.8 26 - 34 PG MCHC 35.1 32.0 - 36.0 G/DL RDW 25.2 (H) 11 - 15 % Platelet Count 12 (LL) 150 - 400 K/UL MPV 10.2 7 - 11 FL Segmented Neutrophils 10 (L) 41 - 77 % Lymphocytes 17 (L) 24 - 44 % Monocytes 32 (H) 4 - 12 % Metamyelocyte 1 % Myelocyte 1 % Promyelocyte 5 % Blast 34 % ANISO PRESENT HYPO PRESENT Ovalocyte PRESENT Platelet Estimate MKD DEC Absolute Neutrophil Count Manual 2.67 1.8 - 7.0 K/UL POC GLUCOSE Collection Time: 04/27/17 9:07 PM Result Value Ref Range Glucose, POC 221 (H) 70 - 100 MG/DL LDH-LACTATE DEHYDROGENASE Collection Time: 04/28/17 4:00 AM Result Value Ref Range Lactate Dehydrogenase 577 (H) 100 - 210 U/L COMPREHENSIVE METABOLIC PANEL Collection Time: 04/28/17 4:00 AM Result Value Ref Range Sodium 140 137 - 147 MMOL/L Potassium 3.8 3.5 - 5.1 MMOL/L Chloride 112 (H) 98 - 110 MMOL/L Glucose 139 (H) 70 - 100 MG/DL Blood Urea Nitrogen 29 (H) 7 - 25 MG/DL Creatinine 1.00 0.4 - 1.00 MG/DL Calcium 7.9 (L) 8.5 - 10.6 MG/DL Total Protein 5.5 (L) 6.0 - 8.0 G/DL Total Bilirubin 0.6 0.3 - 1.2 MG/DL Albumin 2.2 (L) 3.5 - 5.0 G/DL Alk Phosphatase 32 25 - 110 U/L AST (SGOT) 12 7 - 40 U/L CO2 23 21 - 30 MMOL/L ALT (SGPT) 5 (L) 7 - 56 U/L Anion Gap 5 3 - 12 eGFR Non 57 (L) >60 mL/min eGFR >60 >60 mL/min MAGNESIUM Collection Time: 04/28/17 4:00 AM Result Value Ref Range Magnesium 1.8 1.6 - 2.6 mg/dL PHOSPHORUS Collection Time: 04/28/17 4:00 AM Result Value Ref Range Phosphorus 3.1 2.0 - 4.0 MG/DL FIBRINOGEN Collection Time: 04/28/17 4:00 AM Result Value Ref Range Fibrinogen 443 (H) 200 - 400 MG/DL URIC ACID Collection Time: 04/28/17 4:00 AM Result Value Ref Range Uric Acid 3.9 2.0 - 7.0 MG/DL PTT (APTT) Collection Time: 04/28/17 4:00 AM Result Value Ref Range APTT 25.3 21.0 - 39.0 SEC PROTIME INR (PT) Collection Time: 04/28/17 4:00 AM Result Value Ref Range INR 1.4 (H) 0.8 - 1.2 CBC AND DIFF Collection Time: 04/28/17 4:00 AM Result Value Ref Range White Blood Cells 29.1 (H) 4.5 - 11.0 K/UL RBC 2.17 (L) 4.0 - 5.0 M/UL Hemoglobin 7.2 (L) 12.0 - 15.0 GM/DL Hematocrit 20.9 (L) 36 - 45 % MCV 96.3 80 - 100 FL MCH 33.2 26 - 34 PG MCHC 34.5 32.0 - 36.0 G/DL RDW 24.7 (H) 11 - 15 % Platelet Count 14 (LL) 150 - 400 K/UL MPV 10.1 7 - 11 FL Nucleated RBCs 2 K/UL Segmented Neutrophils 16 (L) 41 - 77 % Bands 3 0 - 10 % Lymphocytes 23 (L) 24 - 44 % Monocytes 31 (H) 4 - 12 % Promyelocyte 2 % Blast 25 % ANISO PRESENT POLY PRESENT Platelet Estimate MKD DEC Absolute Neutrophil Count Manual 5.53 1.8 - 7.0 K/UL Telemetry: Not on tele Alex Hemphill MD, FACC * Keerthi Gage, NEVA - 04/27/2017 7:12 PM CDT 1845 Patient transferred to unit at this time. VSS. LR infusing at 100ml/hr. * Kelsi Oviedo, PT - 04/27/2017 1:43 PM CDT PHYSICAL THERAPY NOTE Patient declined to participate despite encouragement and education about the role and benefits of physical therapy. Patient declined due to fatigue. Nurse reports patient is able to aide with bed mobility but demonstrates poor endurance. Plan for patient to start chemotherapy this evening. Physical therapy will continue to follow and provide intervention as indicated. Therapist: Kelsi Oviedo, PT, DPT Date: 04/27/2017 * Luis Whitley MD - 04/27/2017 1:20 PM CDT Formatting of this note may be different from the original. 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 female with PMH of Afib on AC, DM2 with neuropathy, CKD,recurrent UTI , kidney stones, arthritis, gout and anxiety who has been transferred from [facility] due to concern for acute leukemia. Transfered to the ICU on 04/25/2017 for close monitoring with initiation of Hydrea. Renal function has remained stable although did require placement of gonzalez catheter for urinary retention. WBC is trending down following initiation of hydrea. No evidence of TLS. Bone marrow biopsy read pending. Will likely start Chemotherapy on 04/28/2017. Stable for transfer back to BMT service. HEME: Acute Myelogenous Leukemia - Pt was transferred from [facility] on 04/24 with leukocytosis concerning for AML (WBC > 52K) - Flow cytometry shows AML with 38% blasts - Uric acid 8.1 on admission s/p rasburicase --> uric acid 4.2 - 04/27: WBC 32.6 with 2% bands, uric acid 4.7, LDH 628 Plan - BM biopsy completed 04/26 - pending - Continue Hydrea per Heme (3doses to date) - Continue Hydration with IVF - DIC and TLS labs q8h - Continue allopurinol - Ppx with Acyclovir and Micafungin Normocytic Anemia Pancytopenia - Likely due to underlying AML - s/p 3 units PRBC since admission - 04/27: Plt 15, Hgb 7.1, INR 1.4, Fibrinogen 408 Plan - Holding COUNTER TOP ASSEMBLER Apixaban - Transfuse to maintain Hgb >7 and plts >10k (unless active bleeding then >50k) - DIC labs q6h Neuro Hx anxiety - Alert and oriented x 4 - DIfficulty sleeping overnight 2/2 anxiety Plan - Cautiously resume 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 TOP 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 xanax at lower dose: 0.5mg-1mg BID PRN Cardiovascular: Persistent or Permanent Afib - 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 Respiratory: - No acute issues - Currently oxygen sats stable on RA - CXR on 04/25 with small bilateral pleural effusions Plan - goal O2 sats > 92% GI: - 1 BM overnight - Tolerating diet, no nausea Plan - continue diabetic diet - Continue Miralax and senna : SAVANAH on CKD Stage 3 - Cr 1.57 --> 1.82 from baseline Cr ~1.2 - 04/27: Cr 1.05 (down from 1.82 on admit), Bun 36, HCo3 23, Na 138, Cl 110 - I/O: positive 475ml last 24 hours with 1.2L out in urine - Gonzalez placed 04/26 for urinary retention Plan - Renal following, appreciate assistance - LR at 100ml/hr - continue for now - CMP, mag, phos daily - Monitor and replace lytes prn, - Avoid nephrotoxic agents, renally dose all meds - Goal UOP 100mL/hr - hold lasix for now - low threshold to begin to augment IVF if signs of volume overload, reduced UOP Urinary retention - recurrent UTIs for ~ 2 years - unclear if underlying hx urinary retention - Note was having c/o difficulty urinating prior to admission - Had gonzalez (? arrived with or was placed on admission) - was removed on 04/24 - Bladder scan difficult to obtain 2/2 body habitus - post void straight cath on 04/26 with > 250ml residual - Gonzalez replaced on 04/26 2/2 urinary retention Plan - Maintain gonzalez for now ID: Sepsis Hx of Recurrent UTIs - Pt presented to OSH on 04/23 with evidence of urosepsis - Received Cefepime and Flagyl at outside hospital - Urine cx from [facility] 04/23: + E.Coli resistant to ampicillin, Bactrim, Nitrofurantoin. Intermediate resistance to gent and Unasyn. Susceptible to ceftriaxone, zosyn, meropenem, cipro and aztreonam - Blood cx x [address] [facility] 04/23: NGTD - 3/4 SIRS on admission with Tmax 100.8, tachypnea, leukocytosis - 04/27: WBC 32.6 with 2% bands, Tmax 36.9 - Blood cx 04/24: NGTD - Urine cx with < 10,000 contaminate - Sputum cx 04/26: GS with many mixed bacteria, cx in process - Procal 0.51 - Vancomycin x 1 on 04/24, daptomycin 04/25 - 04/26 Plan - Continue Cefepime (started 04/24), ppx Micafungin (started 04/24) and ppx acyclovir (started 04/24) - Continue treatment dose cefepime or equivalent for minimum 10 days to treat UTI present on admit to OSH ENDO: Hypoglycemia DM2 - COUNTER TOP ASSEMBLER on Glimepiride 4mg - Pt with persistent hypoglycemia on admission, placed on D5NS ggt - discontinued on 04/25 - S/p octreotide x 3 doses - BS last 24 hours 185 - 234 Plan - Continue to hold glimepiride (held since 04/23) - Endocrine following, appreciate assistance - increase to [facility]: LR @ 100mL/hr, Diet: Diabetic diet Prophylaxis Review: Lines: PIV, PICC Urinary Catheter: No VTE: SCDs, holding AC due to thrombocytopenia Disposition/Family: Stable for transfer out of ICU back to BMT service Code Status: Full Code Patient seen and discussed with Dr. Lance Doherty APRN Pulmonary/Critical Care Pager [phone] M3 Team Pager [phone] ATTESTATION I personally interviewed and examined the patient. I have reviewed the history , physical, impression and plan outlined by the Nurse Practitioner. The patient presents with (HPI) newly diagnosed AML, On examination there is no distress, easy work of breathing, alert and oriented , regular rate and rhythm, My impression is newly identified AML on Hydrea for elevations white blood cell count. Monitoring for tumor lysis, My plan is continue with current supportive care. Pulmonary biopsy results now available. Will transfer to BMT service for initiation of chemotherapy.. Staff name: Luis Whitley MD Date: 04/27/2017 Subjective: Giselle Moraes is a 56 y.o. female who is awake and alert this morning, resting in bed. Did not sleep much overnight, was anxious about being in the hospital and starting chemo, asking for her home dose of xanax. Tolerating diet. Fatigue limits her ability to ambulate. No family at bedside. ROS: No c/o CP, SOA, N/V/D, headache or rash. Has c/o dry mouth Objective: Medications: Scheduled Meds: acyclovir (ZOVIRAX) tablet 400 mg 400 mg Oral BID allopurinol (ZYLOPRIM) tablet 300 mg 300 mg Oral QDAY cefepime (MAXIPIME) 2 g/100 ml iso-osmotic IVPB 2 g Intravenous Q12H* diltiazem CD (cardIZEM CD) capsule 240 mg 240 mg Oral QDAY hydroxyurea (HYDREA) capsule 1,000 mg 1,000 mg Oral BID insulin aspart (NOVOLOG FLEXPEN) injection PEN 0-7 Units 0-7 Units Subcutaneous ACHS LORazepam (ATIVAN) tablet 1 mg 1 mg Oral ONCE micafungin (MYCAMINE) 50 mg in sodium chloride 0.9% (NS) 105 mL IVPB 50 mg Intravenous Q24H* polyethylene glycol 3350 (MIRALAX) packet 17 g 1 packet Oral QDAY senna (SENOKOT) tablet 1 tablet 1 tablet Oral BID Continuous Infusions: lactated ringers infusion 100 mL/hr at 04/26/17 2139 PRN and Respiratory Meds:acetaminophen Q6H PRN, alteplase PRN (Compliance Representative from Rx) , magnesium sulfate 4 g/50 mL PRN, milk of magnesia (CONC) Q6H PRN, saliva, synthetic PRN, sodium chloride 0.9% irrigation bottle PRN Vital Signs: Last Filed Vital Signs: 24 Hour Range BP: 131/56 (04/27 050) Temp: 36.7 C (98.1 F) (04/27 040) Pulse: 76 (04/27 050) Respirations: 24 PER MINUTE (04/27 500) SpO2: 97 % (04/27 500) O2 Delivery: None (Room Air) (04/27 500) SpO2 Pulse: 71 (04/27 500) BP: (94-140)/(47-90) Temp: [36.4 C (97.6 F)-36.9 C (98.5 F)] Pulse: [63-91] Respirations: [9 PER MINUTE-31 PER MINUTE] SpO2: [84 %-100 %] O2 Delivery: None (Room Air) Vitals: 04/24/17 0728 04/25/17 0215 04/25/17 1145 Weight: (!) 140.9 kg (310 lb 10.1 oz) (!) 142.4 kg (314 lb) (!) 142.9 kg (315 lb 0.6 oz) Intake/Output Summary: (Last 24 hours) Intake/Output Summary (Last 24 hours) at 04/27/17 0613 Last data filed at 04/27/17 0500 Gross per 24 hour Intake 1690 ml Output 1315 ml Net 375 ml Physical Exam: General: Awake and Alert, cooperative, morbidly obese, no acute distress HEENT: Normocephalic, without obvious abnormality, atraumatic. PERRL, Lips, mucosa and tongue moist. trachea midline Lungs: Clear to auscultation bilaterally, normal effort, no wheeze Heart: Regular rate and rhythm, S1, S2 normal, systolic murmur appreciated Abdomen: Soft, obese, non-tender. Bowel sounds normal. Extremities: Extremities normal, atraumatic, no cyanosis, trace edema Peripheral pulses: 2+ and symmetric, all extremities Skin: Skin color, texture, turgor normal. Multiple bruises on extremities Neurologic: Normal strength, sensation and reflexes throughout. Ventilator/ Respiratory Support: No Artificial airway: None Ventilator/ Respiratory Therapy: No Vent weaning trial: Not applicable Laboratory: LABS: Recent Labs 04/24/17 1600 04/24/17 1800 04/25/17 0515 04/25/17 0734 04/25/17 1255 04/25/17 1943 04/26/17 0430 04/26/17 1157 04/26/17 195 NA -- -- -- 131* 132* 134* 136* 136* 137 K -- -- -- 4.7 4.5 4.0 4.1 3.9 3.7 CL -- -- -- 104 105 106 107 109 109 CO2 -- -- -- 20* 21 22 23 22 21 GAP -- -- -- 7 6 6 6 5 7 BUN -- -- -- 32* 35* 39* 40* 41* 38* CR -- -- -- 1.82* 1.75* 1.75* 1.50* 1.32* 1.18* GLU -- -- -- 225* 202* 275* 173* 168* 233* CA -- -- -- 7.8* 8.0* 7.8* 8.0* 7.9* 8.0* ALBUMIN -- -- -- 2.5* -- -- 2.4* -- -- MG 1.9 -- -- 2.1 2.1 -- 2.0 -- -- PO4 -- 3.4 3.9 -- 3.7 4.3* 4.0 3.5 3.2 HGBA1C 5.2 -- -- -- -- -- -- -- -- Recent Labs 04/24/17 1600 04/24/17 1800 04/25/17 0515 04/25/17 0734 04/25/17 1255 04/25/17 1943 04/26/17 0430 04/26/17 1157 04/26/171952 WBC 65.6* -- -- 77.1* 78.3* 56.3* 49.5* 51.3* 35.5* HGB 6.4* -- -- 6.9* 7.8* 7.2* 6.9* 6.2* 7.5* HCT 18.7* -- -- 19.9* 22.7* 21.2* 20.3* 17.7* 21.6* PLTCT 29* -- -- 28* 30* 25* 21* 18* 14* INR -- 2.0* 2.0* -- 1.9* 1.8* 1.6* 1.6* 1.6* PTT -- 30.2 28.8 -- 30.8 29.7 24.9 28.5 27.0 AST -- -- -- 19 -- -- 15 -- -- ALT -- -- -- 6* -- -- 5* -- -- ALKPHOS -- -- -- 33 -- -- 36 -- -- Estimated Creatinine Clearance: 77.2 mL/min (based on Cr of 1.18). Vitals: 04/24/17 0728 04/25/17 0215 04/25/17 1145 Weight: (!) 140.9 kg (310 lb 10.1 oz) (!) 142.4 kg (314 lb) (!) 142.9 kg (315 lb 0.6 oz) No results for input(s): PHART, PO2ART in the last 72 hours. Invalid input(s): PC02A Radiology and Other Diagnostic Procedures Review: Reviewed * Giovanna Bhatt M.Div, [facility] - 04/27/2017 12:23 PM CDT Medicine Man Note: Admit Date: 04/24/2017 Reason for Visit: BMT Rounding Marivel/Muslim: The patient is a charismatic Buddhist who is a long time member of [employer] in [place], [place]. It is a [employer]. Her gnosticist does not know she is here, but she has a friend who will tell the sabianism. Her marivel is the foundation of her courage and motivation, stating that she "just walks with Zeeshan wherever he goes." She comes from a revival marivel and appreciates the [facility] of Declo Song, Amaury Glover, and Sharon Zuleta, who are /were fundamentalist, conservative Christians. She said that she has asked hospital employees who have entered her room if they are Buddhist and said to the general labor, "if you don't believe, then you can leave." The general labor discussed with her the fact that there would be people who work with her who are not Buddhist and asked if that would effect her decisions about care. The patient did not directly respond, but said that she does not intend to convert anyone. Source of Purpose/Meaning: Most important to Mrs. Carter are her family and her marivel. Worries/Concerns/Struggles: Mrs. Carter experiences anxiety for which she takes Xanax. She is concerned that she is not receiving that medication, but has not felt a change in her demeanor. Aside from anxiety, the patient expressed no concern and shrugged when the general labor asked what she is worried about. She said that she "just doesn't think this is that bad." She understands that she "might" have to be here for up to 30 days, and feels prepared for that. Method(s) of Coping: The patient depends on her marivel for coping. Support System: The patient is and has two adult children, ages 40 and 26. She also has a grandson who is almost 9 years old. Her is supportive, but he works, so he will come up when he can. Interventions/Plan: The general labor explored with the patient her marivel and methods of coping during this initial visit. The general labor plans to visit the patient for support throughout her admission. Date/Time: User: Pager: [phone] 04/27/2017 12:23 PM Giovanna Bhatt M.Div, [facility] PCU 8 PCU * aBsil Wallace MD - 04/27/2017 12:09 PM CDT Formatting of this note may be different from the original. 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 Now showing signs of recovery. Known CKD-3 with reported baseline creatinine of 1.2mg/dL. AML with 38% myeloblast. Thrombocytopenia likely due to AML. DM Obestiy. Recommendations: Creatinine is down to baseline. Lytes are stable. May keep I's and O's even until her chemo is started due to high risk for volume overload. Continue to monitor renal function closely during chemo, which is expected to start later this week. Pt will be at risk for tumor lysis. I will follow along as needed. Subjective Giselle Moraes is a 56 y.o. female. Pt feels fair. Reports some shortness of breath. no chest pain reported. Vitals signs, intake and output record was reviewed. Medications Scheduled Meds: acyclovir (ZOVIRAX) tablet 400 mg 400 mg Oral BID allopurinol (ZYLOPRIM) tablet 300 mg 300 mg Oral QDAY cefepime (MAXIPIME) 2 g/100 ml iso-osmotic IVPB 2 g Intravenous Q12H* diltiazem CD (cardIZEM CD) capsule 240 mg 240 mg Oral QDAY hydroxyurea (HYDREA) capsule 1,000 mg 1,000 mg Oral BID insulin aspart (NOVOLOG FLEXPEN) injection PEN 0-7 Units 0-7 Units Subcutaneous ACHS LORazepam (ATIVAN) tablet 1 mg 1 mg Oral ONCE micafungin (MYCAMINE) 50 mg in sodium chloride 0.9% (NS) 105 mL IVPB 50 mg Intravenous Q24H* polyethylene glycol 3350 (MIRALAX) packet 17 g 1 packet Oral QDAY senna (SENOKOT) tablet 1 tablet 1 tablet Oral BID Continuous Infusions: lactated ringers infusion 100 mL/hr at 04/27/17 0812 PRN and Respiratory Meds:acetaminophen Q6H PRN, ALPRAZolam BID PRN, alteplase PRN (Compliance Representative from Rx), magnesium sulfate 4 g/50 mL PRN, milk of magnesia (CONC) Q6H PRN, saliva, synthetic PRN, sodium chloride 0.9% irrigation bottle PRN Review of Systems: Objective: Vital Signs: Last Filed Vital Signs: 24 Hour Range BP: 120/61 (04/27 1100) Temp: 37 C (98.6 F) (04/27 0800) Pulse: 99 (04/27 1100) Respirations: 24 PER MINUTE (04/27 1100) SpO2: 96 % (04/27 1100) O2 Delivery: None (Room Air) (04/27 1100) SpO2 Pulse: 99 (04/27 1100) BP: (96-166)/(51-103) Temp: [36.7 C (98.1 F)-37 C (98.6 F)] Pulse: [63-108] Respirations: [9 PER MINUTE-31 PER MINUTE] SpO2: [84 %-99 %] O2 Delivery: None (Room Air) Vitals: 04/24/17 0728 04/25/17 0215 04/25/17 1145 Weight: (!) 140.9 kg (310 lb 10.1 oz) (!) 142.4 kg (314 lb) (!) 142.9 kg (315 lb 0.6 oz) Intake/Output Summary: (Last 24 hours) Intake/Output Summary (Last 24 hours) at 04/27/17 1209 Last data filed at 04/27/17 1100 Gross per 24 hour Intake 2245 ml Output 1980 ml Net 265 ml Stool Occurrence: 1 Physical Exam Gen Chay: Pt is in no distress Chest: Dec AE at bases. Clear to auscultate bilaterally CVS: S1S2 normal No murmurs Abd: Soft abdomen with normal BS MS. Edema 1+ Neuro: Alert and oriented. No focal deficit on gross neuro exam. Skin. Petechial rash on upper chest. Neck: no thyromegaly, no palpable mass. No JVD HEENT. No JVD normal exam. Dry mouth. Few blood blisters on lips. Lab Review 24-hour labs: Results for orders placed or performed during the hospital encounter of (from the past 24 hour(s)) POC GLUCOSE Collection Time: 04/26/17 7:06 PM Result Value Ref Range Glucose, POC 203 (H) 70 - 100 MG/DL PHOSPHORUS Collection Time: 04/26/17 7:53 PM Result Value Ref Range Phosphorus 3.2 2.0 - 4.0 MG/DL FIBRINOGEN Collection Time: 04/26/17 7:53 PM Result Value Ref Range Fibrinogen 433 (H) 200 - 400 MG/DL URIC ACID Collection Time: 04/26/17 7:53 PM Result Value Ref Range Uric Acid 4.7 2.0 - 7.0 MG/DL PTT (APTT) Collection Time: 04/26/17 7:53 PM Result Value Ref Range APTT 27.0 21.0 - 39.0 SEC PROTIME INR (PT) Collection Time: 04/26/17 7:53 PM Result Value Ref Range INR 1.6 (H) 0.8 - 1.2 BASIC METABOLIC PANEL Collection Time: 04/26/17 7:53 PM Result Value Ref Range Sodium 137 137 - 147 MMOL/L Potassium 3.7 3.5 - 5.1 MMOL/L Chloride 109 98 - 110 MMOL/L CO2 21 21 - 30 MMOL/L Anion Gap 7 3 - 12 Glucose 233 (H) 70 - 100 MG/DL Blood Urea Nitrogen 38 (H) 7 - 25 MG/DL Creatinine 1.18 (H) 0.4 - 1.00 MG/DL Calcium 8.0 (L) 8.5 - 10.6 MG/DL eGFR Non 47 (L) >60 mL/min eGFR 57 (L) >60 mL/min CBC AND DIFF Collection Time: 04/26/17 7:53 PM Result Value Ref Range White Blood Cells 35.5 (H) 4.5 - 11.0 K/UL RBC 2.31 (L) 4.0 - 5.0 M/UL Hemoglobin 7.5 (L) 12.0 - 15.0 GM/DL Hematocrit 21.6 (L) 36 - 45 % MCV 93.5 80 - 100 FL MCH 32.4 26 - 34 PG MCHC 34.7 32.0 - 36.0 G/DL RDW 25.1 (H) 11 - 15 % Platelet Count 14 (LL) 150 - 400 K/UL MPV 10.7 7 - 11 FL Segmented Neutrophils 14 (L) 41 - 77 % Lymphocytes 22 (L) 24 - 44 % Monocytes 31 (H) 4 - 12 % Myelocyte 3 % Other Cells 30 % ANISO PRESENT Ovalocyte PRESENT Platelet Estimate MKD DEC Absolute Neutrophil Count Manual 4.97 1.8 - 7.0 K/UL POC GLUCOSE Collection Time: 04/26/17 9:26 PM Result Value Ref Range Glucose, POC 234 (H) 70 - 100 MG/DL LDH-LACTATE DEHYDROGENASE Collection Time: 04/27/17 5:24 AM Result Value Ref Range Lactate Dehydrogenase 628 (H) 100 - 210 U/L COMPREHENSIVE METABOLIC PANEL Collection Time: 04/27/17 5:24 AM Result Value Ref Range Sodium 138 137 - 147 MMOL/L Potassium 3.8 3.5 - 5.1 MMOL/L Chloride 110 98 - 110 MMOL/L Glucose 175 (H) 70 - 100 MG/DL Blood Urea Nitrogen 36 (H) 7 - 25 MG/DL Creatinine 1.05 (H) 0.4 - 1.00 MG/DL Calcium 8.1 (L) 8.5 - 10.6 MG/DL Total Protein 5.6 (L) 6.0 - 8.0 G/DL Total Bilirubin 0.6 0.3 - 1.2 MG/DL Albumin 2.4 (L) 3.5 - 5.0 G/DL Alk Phosphatase 32 25 - 110 U/L AST (SGOT) 13 7 - 40 U/L CO2 23 21 - 30 MMOL/L ALT (SGPT) 5 (L) 7 - 56 U/L Anion Gap 5 3 - 12 eGFR Non 54 (L) >60 mL/min eGFR >60 >60 mL/min MAGNESIUM Collection Time: 04/27/17 5:24 AM Result Value Ref Range Magnesium 1.9 1.6 - 2.6 mg/dL PHOSPHORUS Collection Time: 04/27/17 5:24 AM Result Value Ref Range Phosphorus 3.2 2.0 - 4.0 MG/DL FIBRINOGEN Collection Time: 04/27/17 5:24 AM Result Value Ref Range Fibrinogen 408 (H) 200 - 400 MG/DL URIC ACID Collection Time: 04/27/17 5:24 AM Result Value Ref Range Uric Acid 4.7 2.0 - 7.0 MG/DL PTT (APTT) Collection Time: 04/27/17 5:24 AM Result Value Ref Range APTT 24.3 21.0 - 39.0 SEC PROTIME INR (PT) Collection Time: 04/27/17 5:24 AM Result Value Ref Range INR 1.4 (H) 0.8 - 1.2 CBC AND DIFF Collection Time: 04/27/17 5:24 AM Result Value Ref Range White Blood Cells 32.6 (H) 4.5 - 11.0 K/UL RBC 2.25 (L) 4.0 - 5.0 M/UL Hemoglobin 7.1 (L) 12.0 - 15.0 GM/DL Hematocrit 20.9 (L) 36 - 45 % MCV 93.1 80 - 100 FL MCH 31.8 26 - 34 PG MCHC 34.1 32.0 - 36.0 G/DL RDW 24.5 (H) 11 - 15 % Platelet Count 15 (LL) 150 - 400 K/UL MPV 9.7 7 - 11 FL Nucleated RBCs 1 K/UL Segmented Neutrophils 14 (L) 41 - 77 % Bands 2 0 - 10 % Lymphocytes 14 (L) 24 - 44 % Monocytes 40 (H) 4 - 12 % Myelocyte 5 % Promyelocyte 3 % Blast 22 % ANISO PRESENT POIK PRESENT POLY PRESENT Ovalocyte PRESENT Teardrop PRESENT Platelet Estimate MKD DEC Absolute Neutrophil Count Manual 5.21 1.8 - 7.0 K/UL POC GLUCOSE Collection Time: 04/27/17 8:05 AM Result Value Ref Range Glucose, POC 161 (H) 70 - 100 MG/DL Point of Care Testing (Last 24 hours) Glucose: (!) 175 (04/27/17 05) POC Glucose (Download): (!) 161 (04/27/17 08) Radiology and other Diagnostics Review: Pertinent radiology reviewed. Basil Wallace MD Nephrology Pager: [phone] * Ari Collazo MD - 04/27/2017 11:33 AM CDT Formatting of this note may be different from the original. Endocrinology progress note Today's Date: 04/27/2017 Admission Date: 04/24/2017 Reason for this consultation: Assessment: Type 2 diabetes mellitus: A1c unknown, ordered COUNTER TOP ASSEMBLER regimen: Glimepiride 4 mg daily Hypoglycemic episodes on this regimen: Unknown Follows up with for diabetes management: PCP Diabetic-complications assessment: Retinopathy: Last eye exam 2 years back, no retinopathy Peripheral neuropathy: Yes Autonomic neuropathy: No Nephropathy: Yes Macrovascular complications: No Risk factor assessment: Last lipid profile -none in chart On ACEi/ARB?:No On Statin?: No Recurrent hypoglycemia: Last dose of glimepiride 4 mg was on 04/23 in the morning, at home. Hypoglycemia is recurrent in spite of D5 normal saline drip. Recurrent UTI Acute leukemia A. fib CKD stage III Recommendations: - Hypoglycemia has resolved. - We will discontinue octreotide. - Postprandial hyperglycemia noted - Would recommend changing to mid-dose correction factor before meals and bedtime.(not ordered) - Might need long acting insulin - plan to restart glimepiride lower dose at discharge. we will continue to follow. Patient was seen and discussed with Dr. Valle History of Present Illness Giselle Moraes is a 56 y.o. female with past medical history of A. fib, type 2 diabetes, CKD stage III, UTI, anxiety was admitted for suspicion for acute leukemia. Endocrinology was consulted for recurrent hypoglycemia. Patient is still very fatigued. No more hypoglycemia. Estimated Creatinine Clearance: 86.8 mL/min (based on Cr of 1.05). 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 No pertinent family history. Allergies Allergies Allergen Reactions Ciprofloxacin SEE COMMENTS Per Nephrology doctors. Levofloxacin SEE COMMENTS Per nephrology doctors. Nsaids (Non-Steroidal Anti-Inflammatory Drug) SEE COMMENTS Per nephrology doctors. Bactrim [Sulfamethoxazole-Trimethoprim] SEE COMMENTS Per Nephrology Doctors. Contrast Dye Iv, Iodine Containing [Iodinated Contrast- Oral And Iv Dye] SEE COMMENTS Per nephrology doctors. Review of Systems A comprehensive 14-point review of systems was negative with exception of: Fatigue, feeling cold, shaky Medications Scheduled Meds: acyclovir (ZOVIRAX) tablet 400 mg 400 mg Oral BID allopurinol (ZYLOPRIM) tablet 300 mg 300 mg Oral QDAY cefepime (MAXIPIME) 2 g/100 ml iso-osmotic IVPB 2 g Intravenous Q12H* diltiazem CD (cardIZEM CD) capsule 240 mg 240 mg Oral QDAY hydroxyurea (HYDREA) capsule 1,000 mg 1,000 mg Oral BID insulin aspart (NOVOLOG FLEXPEN) injection PEN 0-7 Units 0-7 Units Subcutaneous ACHS LORazepam (ATIVAN) tablet 1 mg 1 mg Oral ONCE micafungin (MYCAMINE) 50 mg in sodium chloride 0.9% (NS) 105 mL IVPB 50 mg Intravenous Q24H* polyethylene glycol 3350 (MIRALAX) packet 17 g 1 packet Oral QDAY senna (SENOKOT) tablet 1 tablet 1 tablet Oral BID Continuous Infusions: lactated ringers infusion 100 mL/hr at 04/27/17 0812 PRN and Respiratory Meds:acetaminophen Q6H PRN, ALPRAZolam BID PRN, alteplase PRN (Compliance Representative from Rx), magnesium sulfate 4 g/50 mL PRN, milk of magnesia (CONC) Q6H PRN, saliva, synthetic PRN, sodium chloride 0.9% irrigation bottle PRN Physical Examination Vital Signs: Last Vital Signs: 24 Hour Range BP: 120/61 (04/27 1100) Temp: 37 C (98.6 F) (04/27 0800) Pulse: 99 (04/27 1100) Respirations: 24 PER MINUTE (04/27 1100) SpO2: 96 % (04/27 1100) O2 Delivery: None (Room Air) (04/27 1100) SpO2 Pulse: 99 (04/27 1100) BP: (96-166)/(51-103) Temp: [36.7 C (98.1 F)-37 C (98.6 F)] Pulse: [63-108] Respirations: [9 PER MINUTE-31 PER MINUTE] SpO2: [84 %-99 %] O2 Delivery: None (Room Air) General appearance: alert, oriented, looking tired HENT: Dry oral mucosa, dried blood on lips Lungs: no wheezing, rhonchi, rales appreciated Heart: Regular rhythm, reg rate, with no murmur, rub, gallop Abdomen: soft, non-tender, non-distended, normoactive bowel sounds, Ext: No clubbing, cyanosis or edema Skin: no rashes/lesions Lab Review Point of Care Testing (Last 24 hours) Glucose: (!) 175 (04/27/17523) POC Glucose (Download): (!) 161 (04/27/17804) Recent Labs 04/24/17 1600 04/24/17 1800 04/25/17 0515 04/25/17 0734 04/25/17 1255 04/25/17 1943 04/26/17 0430 04/26/17 1157 04/26/17 19504/27/17 05 NA -- -- -- 131* 132* 134* 136* 136* 137 138 K -- -- -- 4.7 4.5 4.0 4.1 3.9 3.7 3.8 CL -- -- -- 104 105 106 107 109 109 110 CO2 -- -- -- 20* 21 22 23 22 21 23 GAP -- -- -- 7 6 6 6 5 7 5 BUN -- -- -- 32* 35* 39* 40* 41* 38* 36* CR -- -- -- 1.82* 1.75* 1.75* 1.50* 1.32* 1.18* 1.05* GLU -- -- -- 225* 202* 275* 173* 168* 233* 175* CA -- -- -- 7.8* 8.0* 7.8* 8.0* 7.9* 8.0* 8.1* ALBUMIN -- -- -- 2.5* -- -- 2.4* -- -- 2.4* MG 1.9 -- -- 2.1 2.1 -- 2.0 -- -- 1.9 PO4 -- 3.4 3.9 -- 3.7 4.3* 4.0 3.5 3.2 3.2 HGBA1C 5.2 -- -- -- -- -- -- -- -- -- Recent Labs 04/24/17 1600 04/24/17 1800 04/25/17 0515 04/25/17 0734 04/25/17 1255 04/25/17 1943 04/26/17 0430 04/26/17 1157 04/26/17 19504/27/17 0524 WBC 65.6* -- -- 77.1* 78.3* 56.3* 49.5* 51.3* 35.5* 32.6* HGB 6.4* -- -- 6.9* 7.8* 7.2* 6.9* 6.2* 7.5* 7.1* HCT 18.7* -- -- 19.9* 22.7* 21.2* 20.3* 17.7* 21.6* 20.9* PLTCT 29* -- -- 28* 30* 25* 21* 18* 14* 15* INR -- 2.0* 2.0* -- 1.9* 1.8* 1.6* 1.6* 1.6* 1.4* PTT -- 30.2 28.8 -- 30.8 29.7 24.9 28.5 27.0 24.3 AST -- -- -- 19 -- -- 15 -- -- 13 ALT -- -- -- 6* -- -- 5* -- -- 5* ALKPHOS -- -- -- 33 -- -- 36 -- -- 32 Estimated Creatinine Clearance: 86.8 mL/min (based on Cr of 1.05). Vitals: 04/24/17 0728 04/25/17 0215 04/25/17 1145 Weight: (!) 140.9 kg (310 lb 10.1 oz) (!) 142.4 kg (314 lb) (!) 142.9 kg (315 lb 0.6 oz) Thyroid Studies No results found for: TSH, FREET4, FREEINDEX No results found for: FREET3, [id number], THYBINDGLB Ari Collazo MD Endocrinology Fellow [phone] Associated attestation - Pierce Valle MD - 04/28/2017 5:56 AM CDT Formatting of this note may be different from the original. ATTESTATION I personally performed the carrizales portions of the E/M visit, discussed case with resident and concur with resident documentation of history, physical exam, assessment, and treatment plan unless otherwise noted. Staff name: Pierce Valle MD Date: 04/28/2017 * Bruno Duval MD - 04/27/2017 9:01 AM CDT Formatting of this note may be different from the original. 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 Flow cytometry 38% blasts- positive for CD13, CD33, CD38, CD117, HLA-DR and cytoplasmic myeloperoxidase. They are negative for CD11b, CD11c, CD14, CD34 , CD64, TdT, B- and T-cell markers. - Patient on DTI- apixaban for atrial fibrillation, now on hold - Bone marrow biopsy on 04/26 in IR, expect results late 04/27. Results back, confirm AML, monocytic subtype - Obtain 2 D echo - normal, EF-60%. Cardiology consulted. - Continue hydroxyurea 1 gram BID. - Monitor DIC and TLS labs every 8 hours - Plan to start 7+3 04/28/2017, FLT3 status pending Heme: - Anemia and thrombocytopenia due to underlying AML - Leucucytosis- hydroxyurea as above. - Previously on anticoagulation with apixaban for Atrial fibrillation, will hold for now with thrombocytopenia - Anticoagulation with lovenox contraindicated due to thrombocytopenia, SCD's when on bed FEN/Renal: - Creatinine 1.05, improved. - Appreciate renal recommendations - Uric acid 8.1, received 1 dose of rasburicase - Continue allopurinol - Monitor electrolytes, will be high goal replacement with h/o atrial fibrillation - Close monitoring of fluid status ID: - Presents with UTI and fever - Had persistent fevers, started on cefepime and vancomycin. With renal dysfunction stop vancomycin and start daptomycin - Daptomycin discontinued - Blood cultures and urine cultures pending - Had urinary catheter in place, did have urinary retention after trying to remove - On prophylaxis with micafungin and acyclovir - Continue IV fluids/ hydration. Monitor closely GI: - No nausea, vomiting or diarrhea - Low albumin. Liver functions normal - Obese, weight 140.9 kgs Endo: - Has type II DM, on glimiperide has been discontinued on admission - Had persistent low blood sugars, now blood sugars better - Endocrinology consultation obtained and appreciate recommendations CVS: - H/o atrial fibrillation, rate controlled. She is on atenolol, diltiazem furosemide - Mild moderate - Will hold apixaban atenolol diltiazem - Cardiology opinion appreciated, 2 d Echo- normal EF 60%. Psych/Social: Pleasant, no issues - On alprazolam for anxiety, currently continued at low dose - Lives in [facility], , currently on disability, son lives in [facility] Subjective: Giselle Moraes is a 56 y.o. female Feeling improved energy today. Tried to remove urinary catheter last night and had 250cc residual on straight cath. Review of Systems: Constitutional: + fatigue, fevers, chills, sweats/diaphoresis, maliase, anorexia , appetite change, weight change (loss) HEENT: Negative. No ear/ nose problems. Bleeding of lips due to dryness. No gum bleeding Respiratory: +cough, sputum, mild SOB Cardiovascular: Negative for chest pain, chest pressure, palpitations, edema in extremeties Gastrointestional: diarrhea intermittent. No abdominal pain/ nausea or vomiting Gernitourinary: + dysuria, no hematuria Musculoskeletal:Negative Skin: Negative Psych: + anxiety Objective: Medications: Scheduled Meds: acyclovir (ZOVIRAX) tablet 400 mg 400 mg Oral BID allopurinol (ZYLOPRIM) tablet 300 mg 300 mg Oral QDAY cefepime (MAXIPIME) 2 g/100 ml iso-osmotic IVPB 2 g Intravenous Q12H* diltiazem CD (cardIZEM CD) capsule 240 mg 240 mg Oral QDAY hydroxyurea (HYDREA) capsule 1,000 mg 1,000 mg Oral BID insulin aspart (NOVOLOG FLEXPEN) injection PEN 0-7 Units 0-7 Units Subcutaneous ACHS LORazepam (ATIVAN) tablet 1 mg 1 mg Oral ONCE micafungin (MYCAMINE) 50 mg in sodium chloride 0.9% (NS) 105 mL IVPB 50 mg Intravenous Q24H* polyethylene glycol 3350 (MIRALAX) packet 17 g 1 packet Oral QDAY senna (SENOKOT) tablet 1 tablet 1 tablet Oral BID Continuous Infusions: lactated ringers infusion 100 mL/hr at 04/27/17 0812 PRN and Respiratory Meds:acetaminophen Q6H PRN, ALPRAZolam BID PRN, alteplase PRN (Compliance Representative from Rx), magnesium sulfate 4 g/50 mL PRN, milk of magnesia (CONC) Q6H PRN, saliva, synthetic PRN, sodium chloride 0.9% irrigation bottle PRN Vital Signs: Last Filed Vital Signs: 24 Hour Range BP: 125/67 (04/27 800) Temp: 37 C (98.6 F) (04/27 800) Pulse: 94 (04/27 800) Respirations: 24 PER MINUTE (04/27 800) SpO2: 98 % (04/27 700) O2 Delivery: None (Room Air) (04/27 700) SpO2 Pulse: 102 (04/27 700) BP: (94-140)/(53-90) Temp: [36.7 C (98.1 F)-37 C (98.6 F)] Pulse: [63-94] Respirations: [9 PER MINUTE-31 PER MINUTE] SpO2: [84 %-99 %] O2 Delivery: None (Room Air) Intensity Pain Scale 0-10 (Pain 1): (not recorded) Vitals: 04/24/17 0728 04/25/17 0215 04/25/17 1145 Weight: (!) 140.9 kg (310 lb 10.1 oz) (!) 142.4 kg (314 lb) (!) 142.9 kg (315 lb 0.6 oz) Intake/Output Summary: (Last 24 hours) Intake/Output Summary (Last 24 hours) at 04/27/17 09 Last data filed at 04/27/17 09 Gross per 24 hour Intake 2335 ml Output 1725 ml Net 610 ml Physical Exam: Performance Status (Karnofsky): 40% Disabled, requires special care and assistance General: awake & oriented, no acute distress, appears stated age, Morbidly obese HENT: normocephalic, atraumatic, non-icteric, clear conjunctivae, no adenopathy. Mild bleeding/ clotted blood onlips, no oral bleeding or gum bleeding Eyes: Conjunctuvae clear. PERRL, EOMs intact. CV: S1, S2, regular rhythm and rate, no murmur, click, rub Lungs: clear to ausculation bilaterally, non-labored Abdomen: Obese abdomen, soft, non-tender, non-distended, normo-active bowel sounds. Has indwelling catheter Extremities: no edema, cyanosis, pulses Skin: Warm & dry. Skin color, turgor normal. No rahses or lesions Neuro: drowsy but arousable and obeys all command, oriented to person, place and time. No focal deficits; normal muscle strength- normal Psych: Normal mood and affect. Judgment and thought content normal. Ventilator/Respiratory Support: On nasal cannula 2 liters Lab Review: Results for orders placed or performed during the hospital encounter of (from the past 48 hour(s)) POC GLUCOSE Collection Time: 04/25/17 10:17 AM # # Low-High Glucose, POC 215 (H) 70 - 100 MG/DL BASIC METABOLIC PANEL Collection Time: 04/25/17 12:55 PM # # Low-High Sodium 132 (L) 137 - 147 MMOL/L Potassium 4.5 3.5 - 5.1 MMOL/L Chloride 105 98 - 110 MMOL/L CO2 21 21 - 30 MMOL/L Anion Gap 6 3 - 12 Glucose 202 (H) 70 - 100 MG/DL Blood Urea Nitrogen 35 (H) 7 - 25 MG/DL Creatinine 1.75 (H) 0.4 - 1.00 MG/DL Calcium 8.0 (L) 8.5 - 10.6 MG/DL eGFR Non 30 (L) >60 mL/min eGFR 36 (L) >60 mL/min MAGNESIUM Collection Time: 04/25/17 12:55 PM # # Low-High Magnesium 2.1 1.6 - 2.6 mg/dL PHOSPHORUS Collection Time: 04/25/17 12:55 PM # # Low-High Phosphorus 3.7 2.0 - 4.0 MG/DL FIBRINOGEN Collection Time: 04/25/17 12:55 PM # # Low-High Fibrinogen 442 (H) 200 - 400 MG/DL URIC ACID Collection Time: 04/25/17 12:55 PM # # Low-High Uric Acid 4.2 2.0 - 7.0 MG/DL CBC AND DIFF Collection Time: 04/25/17 12:55 PM # # Low-High White Blood Cells 78.3 (HH) 4.5 - 11.0 K/UL RBC 2.36 (L) 4.0 - 5.0 M/UL Hemoglobin 7.8 (L) 12.0 - 15.0 GM/DL Hematocrit 22.7 (L) 36 - 45 % MCV 96.5 80 - 100 FL MCH 33.3 26 - 34 PG MCHC 34.5 32.0 - 36.0 G/DL RDW 24.3 (H) 11 - 15 % Platelet Count 30 (L) 150 - 400 K/UL MPV 10.3 7 - 11 FL Segmented Neutrophils 10 (L) 41 - 77 % Bands 1 0 - 10 % Lymphocytes 18 (L) 24 - 44 % Monocytes 12 4 - 12 % Myelocyte 2 % Other Cells 57 % POLY PRESENT Ovalocyte PRESENT Platelet Estimate MKD DEC Absolute Neutrophil Count Manual 8.61 (H) 1.8 - 7.0 K/UL PTT (APTT) Collection Time: 04/25/17 12:55 PM # # Low-High APTT 30.8 21.0 - 39.0 SEC PROTIME INR (PT) Collection Time: 04/25/17 12:55 PM # # Low-High INR 1.9 (H) 0.8 - 1.2 D-DIMER Collection Time: 04/25/17 12:55 PM # # Low-High D-Dimer 1112 (H) <230 ng/mL DDU LACTIC ACID (BG - RAPID LACTATE) Collection Time: 04/25/17 2:35 PM # # Low-High Lactic Acid,BG 0.7 0.5 - 2.0 MMOL/L POC GLUCOSE Collection Time: 04/25/17 4:16 PM # # Low-High Glucose, POC 203 (H) 70 - 100 MG/DL FE STAIN Collection Time: 04/25/17 5:13 PM # # Low-High Bone Marrow FE SEE PATHOLOGY REPORT PHOSPHORUS Collection Time: 04/25/17 7:43 PM # # Low-High Phosphorus 4.3 (H) 2.0 - 4.0 MG/DL FIBRINOGEN Collection Time: 04/25/17 7:43 PM # # Low-High Fibrinogen 493 (H) 200 - 400 MG/DL URIC ACID Collection Time: 04/25/17 7:43 PM # # Low-High Uric Acid 4.5 2.0 - 7.0 MG/DL PTT (APTT) Collection Time: 04/25/17 7:43 PM # # Low-High APTT 29.7 21.0 - 39.0 SEC PROTIME INR (PT) Collection Time: 04/25/17 7:43 PM # # Low-High INR 1.8 (H) 0.8 - 1.2 BASIC METABOLIC PANEL Collection Time: 04/25/17 7:43 PM # # Low-High Sodium 134 (L) 137 - 147 MMOL/L Potassium 4.0 3.5 - 5.1 MMOL/L Chloride 106 98 - 110 MMOL/L CO2 22 21 - 30 MMOL/L Anion Gap 6 3 - 12 Glucose 275 (H) 70 - 100 MG/DL Blood Urea Nitrogen 39 (H) 7 - 25 MG/DL Creatinine 1.75 (H) 0.4 - 1.00 MG/DL Calcium 7.8 (L) 8.5 - 10.6 MG/DL eGFR Non 30 (L) >60 mL/min eGFR 36 (L) >60 mL/min CBC AND DIFF Collection Time: 04/25/17 7:43 PM # # Low-High White Blood Cells 56.3 (HH) 4.5 - 11.0 K/UL RBC 2.18 (L) 4.0 - 5.0 M/UL Hemoglobin 7.2 (L) 12.0 - 15.0 GM/DL Hematocrit 21.2 (L) 36 - 45 % MCV 97.3 80 - 100 FL MCH 33.0 26 - 34 PG MCHC 34.0 32.0 - 36.0 G/DL RDW 24.0 (H) 11 - 15 % Platelet Count 25 (L) 150 - 400 K/UL MPV 10.6 7 - 11 FL Nucleated RBCs 2 K/UL Segmented Neutrophils 12 (L) 41 - 77 % Lymphocytes 22 (L) 24 - 44 % Monocytes 19 (H) 4 - 12 % Myelocyte 1 % Other Cells 46 % ANISO PRESENT Ovalocyte PRESENT Platelet Estimate MKD DEC Absolute Neutrophil Count Manual 6.76 1.8 - 7.0 K/UL POC GLUCOSE Collection Time: 04/25/17 7:58 PM # # Low-High Glucose, POC 286 (H) 70 - 100 MG/DL IONIZED CALCIUM Collection Time: 04/25/17 9:57 PM # # Low-High Ionized Calcium 1.08 1.0 - 1.3 MMOL/L CULTURE-RESP,LOWER W/SENSITIVITY Collection Time: 04/26/17 12:25 AM # # Low-High Battery Name LOWER RESP CULTURE Specimen Description SPUTUM Special Requests NONE Direct Gram Stain LESS THAN 10/LPF NEUTROPHILS 10-25/LPF SQUAMOUS EPITHELIAL CELLS MANY MIXED BACTERIA Culture Report Status GRAM STAIN Collection Time: 04/26/17 12:25 AM # # Low-High Battery Name GRAM STAIN Specimen Description SPUTUM Special Requests NONE Gram Stain LESS THAN 10/LPF NEUTROPHILS 10-25/LPF SQUAMOUS EPITHELIAL CELLS MANY MIXED BACTERIA Report Status FINAL 04/26/2017 POC GLUCOSE Collection Time: 04/26/17 4:28 AM # # Low-High Glucose, POC 194 (H) 70 - 100 MG/DL LDH-LACTATE DEHYDROGENASE Collection Time: 04/26/17 4:30 AM # # Low-High Lactate Dehydrogenase 747 (H) 100 - 210 U/L COMPREHENSIVE METABOLIC PANEL Collection Time: 04/26/17 4:30 AM # # Low-High Sodium 136 (L) 137 - 147 MMOL/L Potassium 4.1 3.5 - 5.1 MMOL/L Chloride 107 98 - 110 MMOL/L Glucose 173 (H) 70 - 100 MG/DL Blood Urea Nitrogen 40 (H) 7 - 25 MG/DL Creatinine 1.50 (H) 0.4 - 1.00 MG/DL Calcium 8.0 (L) 8.5 - 10.6 MG/DL Total Protein 5.8 (L) 6.0 - 8.0 G/DL Total Bilirubin 0.6 0.3 - 1.2 MG/DL Albumin 2.4 (L) 3.5 - 5.0 G/DL Alk Phosphatase 36 25 - 110 U/L AST (SGOT) 15 7 - 40 U/L CO2 23 21 - 30 MMOL/L ALT (SGPT) 5 (L) 7 - 56 U/L Anion Gap 6 3 - 12 eGFR Non 36 (L) >60 mL/min eGFR 43 (L) >60 mL/min MAGNESIUM Collection Time: 04/26/17 4:30 AM # # Low-High Magnesium 2.0 1.6 - 2.6 mg/dL PHOSPHORUS Collection Time: 04/26/17 4:30 AM # # Low-High Phosphorus 4.0 2.0 - 4.0 MG/DL FIBRINOGEN Collection Time: 04/26/17 4:30 AM # # Low-High Fibrinogen 482 (H) 200 - 400 MG/DL URIC ACID Collection Time: 04/26/17 4:30 AM # # Low-High Uric Acid 4.8 2.0 - 7.0 MG/DL PTT (APTT) Collection Time: 04/26/17 4:30 AM # # Low-High APTT 24.9 21.0 - 39.0 SEC PROTIME INR (PT) Collection Time: 04/26/17 4:30 AM # # Low-High INR 1.6 (H) 0.8 - 1.2 CBC AND DIFF Collection Time: 04/26/17 4:30 AM # # Low-High White Blood Cells 49.5 (H) 4.5 - 11.0 K/UL RBC 2.06 (L) 4.0 - 5.0 M/UL Hemoglobin 6.9 (L) 12.0 - 15.0 GM/DL Hematocrit 20.3 (L) 36 - 45 % MCV 98.5 80 - 100 FL MCH 33.3 26 - 34 PG MCHC 33.8 32.0 - 36.0 G/DL RDW 24.7 (H) 11 - 15 % Platelet Count 21 (LL) 150 - 400 K/UL MPV 9.8 7 - 11 FL Segmented Neutrophils 8 (L) 41 - 77 % Bands 4 0 - 10 % Lymphocytes 9 (L) 24 - 44 % Monocytes 31 (H) 4 - 12 % Myelocyte 3 % Other Cells 45 % ANISO PRESENT Ovalocyte PRESENT Absolute Neutrophil Count Manual 5.94 1.8 - 7.0 K/UL POC GLUCOSE Collection Time: 04/26/17 7:01 AM # # Low-High Glucose, POC 185 (H) 70 - 100 MG/DL POC GLUCOSE Collection Time: 04/26/17 11:56 AM # # Low-High Glucose, POC 174 (H) 70 - 100 MG/DL PHOSPHORUS Collection Time: 04/26/17 11:57 AM # # Low-High Phosphorus 3.5 2.0 - 4.0 MG/DL FIBRINOGEN Collection Time: 04/26/17 11:57 AM # # Low-High Fibrinogen 472 (H) 200 - 400 MG/DL URIC ACID Collection Time: 04/26/17 11:57 AM # # Low-High Uric Acid 4.7 2.0 - 7.0 MG/DL PTT (APTT) Collection Time: 04/26/17 11:57 AM # # Low-High APTT 28.5 21.0 - 39.0 SEC PROTIME INR (PT) Collection Time: 04/26/17 11:57 AM # # Low-High INR 1.6 (H) 0.8 - 1.2 BASIC METABOLIC PANEL Collection Time: 04/26/17 11:57 AM # # Low-High Sodium 136 (L) 137 - 147 MMOL/L Potassium 3.9 3.5 - 5.1 MMOL/L Chloride 109 98 - 110 MMOL/L CO2 22 21 - 30 MMOL/L Anion Gap 5 3 - 12 Glucose 168 (H) 70 - 100 MG/DL Blood Urea Nitrogen 41 (H) 7 - 25 MG/DL Creatinine 1.32 (H) 0.4 - 1.00 MG/DL Calcium 7.9 (L) 8.5 - 10.6 MG/DL eGFR Non 41 (L) >60 mL/min eGFR 50 (L) >60 mL/min CBC AND DIFF Collection Time: 04/26/17 11:57 AM # # Low-High White Blood Cells 51.3 (HH) 4.5 - 11.0 K/UL RBC 1.91 (L) 4.0 - 5.0 M/UL Hemoglobin 6.2 (L) 12.0 - 15.0 GM/DL Hematocrit 17.7 (L) 36 - 45 % MCV 92.7 80 - 100 FL MCH 32.2 26 - 34 PG MCHC 34.8 32.0 - 36.0 G/DL RDW 24.8 (H) 11 - 15 % Platelet Count 18 (LL) 150 - 400 K/UL MPV 10.2 7 - 11 FL Segmented Neutrophils 11 (L) 41 - 77 % Lymphocytes 12 (L) 24 - 44 % Monocytes 33 (H) 4 - 12 % Metamyelocyte 1 % Blast 43 % ANISO PRESENT POIK PRESENT POLY PRESENT Platelet Estimate MKD DEC Absolute Neutrophil Count Manual 5.64 1.8 - 7.0 K/UL PROCALCITONIN Collection Time: 04/26/17 11:57 AM # # Low-High Procalcitonin 0.51 (H) <0.10 NG/ML BNP (B-TYPE NATRIURETIC PEPTI) Collection Time: 04/26/17 11:57 AM # # Low-High B Type Natriuretic Peptide 168.0 (H) 0 - 100 PG/ML POC GLUCOSE Collection Time: 04/26/17 7:06 PM # # Low-High Glucose, POC 203 (H) 70 - 100 MG/DL PHOSPHORUS Collection Time: 04/26/17 7:53 PM # # Low-High Phosphorus 3.2 2.0 - 4.0 MG/DL FIBRINOGEN Collection Time: 04/26/17 7:53 PM # # Low-High Fibrinogen 433 (H) 200 - 400 MG/DL URIC ACID Collection Time: 04/26/17 7:53 PM # # Low-High Uric Acid 4.7 2.0 - 7.0 MG/DL PTT (APTT) Collection Time: 04/26/17 7:53 PM # # Low-High APTT 27.0 21.0 - 39.0 SEC PROTIME INR (PT) Collection Time: 04/26/17 7:53 PM # # Low-High INR 1.6 (H) 0.8 - 1.2 BASIC METABOLIC PANEL Collection Time: 04/26/17 7:53 PM # # Low-High Sodium 137 137 - 147 MMOL/L Potassium 3.7 3.5 - 5.1 MMOL/L Chloride 109 98 - 110 MMOL/L CO2 21 21 - 30 MMOL/L Anion Gap 7 3 - 12 Glucose 233 (H) 70 - 100 MG/DL Blood Urea Nitrogen 38 (H) 7 - 25 MG/DL Creatinine 1.18 (H) 0.4 - 1.00 MG/DL Calcium 8.0 (L) 8.5 - 10.6 MG/DL eGFR Non 47 (L) >60 mL/min eGFR 57 (L) >60 mL/min CBC AND DIFF Collection Time: 04/26/17 7:53 PM # # Low-High White Blood Cells 35.5 (H) 4.5 - 11.0 K/UL RBC 2.31 (L) 4.0 - 5.0 M/UL Hemoglobin 7.5 (L) 12.0 - 15.0 GM/DL Hematocrit 21.6 (L) 36 - 45 % MCV 93.5 80 - 100 FL MCH 32.4 26 - 34 PG MCHC 34.7 32.0 - 36.0 G/DL RDW 25.1 (H) 11 - 15 % Platelet Count 14 (LL) 150 - 400 K/UL MPV 10.7 7 - 11 FL Segmented Neutrophils 14 (L) 41 - 77 % Lymphocytes 22 (L) 24 - 44 % Monocytes 31 (H) 4 - 12 % Myelocyte 3 % Other Cells 30 % ANISO PRESENT Ovalocyte PRESENT Platelet Estimate MKD DEC Absolute Neutrophil Count Manual 4.97 1.8 - 7.0 K/UL POC GLUCOSE Collection Time: 04/26/17 9:26 PM # # Low-High Glucose, POC 234 (H) 70 - 100 MG/DL LDH-LACTATE DEHYDROGENASE Collection Time: 04/27/17 5:24 AM # # Low-High Lactate Dehydrogenase 628 (H) 100 - 210 U/L COMPREHENSIVE METABOLIC PANEL Collection Time: 04/27/17 5:24 AM # # Low-High Sodium 138 137 - 147 MMOL/L Potassium 3.8 3.5 - 5.1 MMOL/L Chloride 110 98 - 110 MMOL/L Glucose 175 (H) 70 - 100 MG/DL Blood Urea Nitrogen 36 (H) 7 - 25 MG/DL Creatinine 1.05 (H) 0.4 - 1.00 MG/DL Calcium 8.1 (L) 8.5 - 10.6 MG/DL Total Protein 5.6 (L) 6.0 - 8.0 G/DL Total Bilirubin 0.6 0.3 - 1.2 MG/DL Albumin 2.4 (L) 3.5 - 5.0 G/DL Alk Phosphatase 32 25 - 110 U/L AST (SGOT) 13 7 - 40 U/L CO2 23 21 - 30 MMOL/L ALT (SGPT) 5 (L) 7 - 56 U/L Anion Gap 5 3 - 12 eGFR Non 54 (L) >60 mL/min eGFR >60 >60 mL/min MAGNESIUM Collection Time: 04/27/17 5:24 AM # # Low-High Magnesium 1.9 1.6 - 2.6 mg/dL PHOSPHORUS Collection Time: 04/27/17 5:24 AM # # Low-High Phosphorus 3.2 2.0 - 4.0 MG/DL FIBRINOGEN Collection Time: 04/27/17 5:24 AM # # Low-High Fibrinogen 408 (H) 200 - 400 MG/DL URIC ACID Collection Time: 04/27/17 5:24 AM # # Low-High Uric Acid 4.7 2.0 - 7.0 MG/DL PTT (APTT) Collection Time: 04/27/17 5:24 AM # # Low-High APTT 24.3 21.0 - 39.0 SEC PROTIME INR (PT) Collection Time: 04/27/17 5:24 AM # # Low-High INR 1.4 (H) 0.8 - 1.2 CBC AND DIFF Collection Time: 04/27/17 5:24 AM # # Low-High White Blood Cells 32.6 (H) 4.5 - 11.0 K/UL RBC 2.25 (L) 4.0 - 5.0 M/UL Hemoglobin 7.1 (L) 12.0 - 15.0 GM/DL Hematocrit 20.9 (L) 36 - 45 % MCV 93.1 80 - 100 FL MCH 31.8 26 - 34 PG MCHC 34.1 32.0 - 36.0 G/DL RDW 24.5 (H) 11 - 15 % Platelet Count 15 (LL) 150 - 400 K/UL MPV 9.7 7 - 11 FL Nucleated RBCs 1 K/UL Segmented Neutrophils 14 (L) 41 - 77 % Bands 2 0 - 10 % Lymphocytes 14 (L) 24 - 44 % Monocytes 40 (H) 4 - 12 % Myelocyte 5 % Promyelocyte 3 % Blast 22 % ANISO PRESENT POIK PRESENT POLY PRESENT Ovalocyte PRESENT Teardrop PRESENT Platelet Estimate MKD DEC Absolute Neutrophil Count Manual 5.21 1.8 - 7.0 K/UL POC GLUCOSE Collection Time: 04/27/17 8:05 AM # # Low-High Glucose, POC 161 (H) 70 - 100 MG/DL Radiology Review: Pertinent radiology reviewed. Bruno Duval MD * Alex Hemphill MD - 04/27/2017 8:13 AM CDT Formatting of this note may be different from the original. Staff Cardiology Progress Note Admission Date: 04/24/2017 Today's Date: 04/27/2017 LOS: 3 days Code Status: Full Code Assessment & Plan Giselle Moraes Chronic AF: - States has AF for last 1 year and never had cardioversion or ablation - Rate is still under control. Will continue with rate control. No cardioversion at present as not on AC. Could consider as outpatient, left atrium is not severely dilated. She has been followed by [facility] - Continue Cardizem - If rate is increased, may start Atenolol 25 or 50 mg daily as BP permits - Not a candidate for AC at present due to low platelet count-15K. Consider restarting when platelets are better and ok with hematology Mild to mod : - No work up needed at present - + 4L, Watch fluid balance. Diuresis as needed Echo: 04/24/17: 1. EF 60%. Moderate left atrial enlargement 2. Normal RV size and systolic function. 3. Moderately dilated left atrium 4. AV is thickened. It is not well seen and a bicuspid valve cannot be excluded. There is mild to moderate . No AI Subjective Giselle Emma Moraes 56 yr old female with h/o permanent AF, mild to moderate , AML , DM, CKD, nephrolithiasis obesity admitted with suspicious acute leukemia. Patient denies chest pain, dyspnea or palpitations. Medications Scheduled Meds: acyclovir (ZOVIRAX) tablet 400 mg 400 mg Oral BID allopurinol (ZYLOPRIM) tablet 300 mg 300 mg Oral QDAY cefepime (MAXIPIME) 2 g/100 ml iso-osmotic IVPB 2 g Intravenous Q12H* diltiazem CD (cardIZEM CD) capsule 240 mg 240 mg Oral QDAY hydroxyurea (HYDREA) capsule 1,000 mg 1,000 mg Oral BID insulin aspart (NOVOLOG FLEXPEN) injection PEN 0-7 Units 0-7 Units Subcutaneous ACHS LORazepam (ATIVAN) tablet 1 mg 1 mg Oral ONCE micafungin (MYCAMINE) 50 mg in sodium chloride 0.9% (NS) 105 mL IVPB 50 mg Intravenous Q24H* polyethylene glycol 3350 (MIRALAX) packet 17 g 1 packet Oral QDAY senna (SENOKOT) tablet 1 tablet 1 tablet Oral BID Continuous Infusions: lactated ringers infusion 100 mL/hr at 04/27/17 0812 PRN and Respiratory Meds:acetaminophen Q6H PRN, ALPRAZolam BID PRN, alteplase PRN (Compliance Representative from Rx), magnesium sulfate 4 g/50 mL PRN, milk of magnesia (CONC) Q6H PRN, saliva, synthetic PRN, sodium chloride 0.9% irrigation bottle PRN Objective Vital Signs: Last Filed Vital Signs: 24 Hour Range BP: 120/66 (04/27 600) Temp: 36.7 C (98.1 F) (04/27 0400) Pulse: 82 (04/27 600) Respirations: 21 PER MINUTE (04/27 600) SpO2: 99 % (04/27 600) O2 Delivery: None (Room Air) (04/27 0500) SpO2 Pulse: 83 (04/27 600) BP: (94-140)/(53-90) Temp: [36.5 C (97.7 F)-36.9 C (98.5 F)] Pulse: [63-91] Respirations: [9 PER MINUTE-31 PER MINUTE] SpO2: [84 %-99 %] O2 Delivery: None (Room Air) Vitals: 04/24/17 0728 04/25/17 0215 04/25/17 1145 Weight: (!) 140.9 kg (310 lb 10.1 oz) (!) 142.4 kg (314 lb) (!) 142.9 kg (315 lb 0.6 oz) Intake/Output Summary: (Last 24 hours) Intake/Output Summary (Last 24 hours) at 04/27/17 0813 Last data filed at 04/27/17 0652 Gross per 24 hour Intake 1690 ml Output 1565 ml Net 125 ml Physical Exam General Appearance: no acute distress Skin: warm, moist, no ulcers HEENT: unremarkable Neck Veins: neck veins are not distended Carotid Arteries: no bruits Chest Inspection: chest is normal in appearance Auscultation/Percussion: lungs clear to auscultation, no rales, rhonchi, or wheezing Cardiac Rhythm: Irregular rhythm Cardiac Auscultation: Normal S1 & S2, no S3 or S4, no rub Murmurs: 2/6 crescendo-decrescendo systolic murmur left 2nd ICS Extremities: Minimal lower extremity edema Abdominal Exam: soft, non-tender, no masses, bowel sounds normal Liver & Spleen: no organomegaly Neurologic Exam: neurological assessment grossly intact Lab Review Results for orders placed or performed during the hospital encounter of (from the past 24 hour(s)) POC GLUCOSE Collection Time: 04/26/17 11:56 AM Result Value Ref Range Glucose, POC 174 (H) 70 - 100 MG/DL PHOSPHORUS Collection Time: 04/26/17 11:57 AM Result Value Ref Range Phosphorus 3.5 2.0 - 4.0 MG/DL FIBRINOGEN Collection Time: 04/26/17 11:57 AM Result Value Ref Range Fibrinogen 472 (H) 200 - 400 MG/DL URIC ACID Collection Time: 04/26/17 11:57 AM Result Value Ref Range Uric Acid 4.7 2.0 - 7.0 MG/DL PTT (APTT) Collection Time: 04/26/17 11:57 AM Result Value Ref Range APTT 28.5 21.0 - 39.0 SEC PROTIME INR (PT) Collection Time: 04/26/17 11:57 AM Result Value Ref Range INR 1.6 (H) 0.8 - 1.2 BASIC METABOLIC PANEL Collection Time: 04/26/17 11:57 AM Result Value Ref Range Sodium 136 (L) 137 - 147 MMOL/L Potassium 3.9 3.5 - 5.1 MMOL/L Chloride 109 98 - 110 MMOL/L CO2 22 21 - 30 MMOL/L Anion Gap 5 3 - 12 Glucose 168 (H) 70 - 100 MG/DL Blood Urea Nitrogen 41 (H) 7 - 25 MG/DL Creatinine 1.32 (H) 0.4 - 1.00 MG/DL Calcium 7.9 (L) 8.5 - 10.6 MG/DL eGFR Non 41 (L) >60 mL/min eGFR 50 (L) >60 mL/min CBC AND DIFF Collection Time: 04/26/17 11:57 AM Result Value Ref Range White Blood Cells 51.3 (HH) 4.5 - 11.0 K/UL RBC 1.91 (L) 4.0 - 5.0 M/UL Hemoglobin 6.2 (L) 12.0 - 15.0 GM/DL Hematocrit 17.7 (L) 36 - 45 % MCV 92.7 80 - 100 FL MCH 32.2 26 - 34 PG MCHC 34.8 32.0 - 36.0 G/DL RDW 24.8 (H) 11 - 15 % Platelet Count 18 (LL) 150 - 400 K/UL MPV 10.2 7 - 11 FL Segmented Neutrophils 11 (L) 41 - 77 % Lymphocytes 12 (L) 24 - 44 % Monocytes 33 (H) 4 - 12 % Metamyelocyte 1 % Blast 43 % ANISO PRESENT POIK PRESENT POLY PRESENT Platelet Estimate MKD DEC Absolute Neutrophil Count Manual 5.64 1.8 - 7.0 K/UL PROCALCITONIN Collection Time: 04/26/17 11:57 AM Result Value Ref Range Procalcitonin 0.51 (H) <0.10 NG/ML BNP (B-TYPE NATRIURETIC PEPTI) Collection Time: 04/26/17 11:57 AM Result Value Ref Range B Type Natriuretic Peptide 168.0 (H) 0 - 100 PG/ML POC GLUCOSE Collection Time: 04/26/17 7:06 PM Result Value Ref Range Glucose, POC 203 (H) 70 - 100 MG/DL PHOSPHORUS Collection Time: 04/26/17 7:53 PM Result Value Ref Range Phosphorus 3.2 2.0 - 4.0 MG/DL FIBRINOGEN Collection Time: 04/26/17 7:53 PM Result Value Ref Range Fibrinogen 433 (H) 200 - 400 MG/DL URIC ACID Collection Time: 04/26/17 7:53 PM Result Value Ref Range Uric Acid 4.7 2.0 - 7.0 MG/DL PTT (APTT) Collection Time: 04/26/17 7:53 PM Result Value Ref Range APTT 27.0 21.0 - 39.0 SEC PROTIME INR (PT) Collection Time: 04/26/17 7:53 PM Result Value Ref Range INR 1.6 (H) 0.8 - 1.2 BASIC METABOLIC PANEL Collection Time: 04/26/17 7:53 PM Result Value Ref Range Sodium 137 137 - 147 MMOL/L Potassium 3.7 3.5 - 5.1 MMOL/L Chloride 109 98 - 110 MMOL/L CO2 21 21 - 30 MMOL/L Anion Gap 7 3 - 12 Glucose 233 (H) 70 - 100 MG/DL Blood Urea Nitrogen 38 (H) 7 - 25 MG/DL Creatinine 1.18 (H) 0.4 - 1.00 MG/DL Calcium 8.0 (L) 8.5 - 10.6 MG/DL eGFR Non 47 (L) >60 mL/min eGFR 57 (L) >60 mL/min CBC AND DIFF Collection Time: 04/26/17 7:53 PM Result Value Ref Range White Blood Cells 35.5 (H) 4.5 - 11.0 K/UL RBC 2.31 (L) 4.0 - 5.0 M/UL Hemoglobin 7.5 (L) 12.0 - 15.0 GM/DL Hematocrit 21.6 (L) 36 - 45 % MCV 93.5 80 - 100 FL MCH 32.4 26 - 34 PG MCHC 34.7 32.0 - 36.0 G/DL RDW 25.1 (H) 11 - 15 % Platelet Count 14 (LL) 150 - 400 K/UL MPV 10.7 7 - 11 FL Segmented Neutrophils 14 (L) 41 - 77 % Lymphocytes 22 (L) 24 - 44 % Monocytes 31 (H) 4 - 12 % Myelocyte 3 % Other Cells 30 % ANISO PRESENT Ovalocyte PRESENT Platelet Estimate MKD DEC Absolute Neutrophil Count Manual 4.97 1.8 - 7.0 K/UL POC GLUCOSE Collection Time: 04/26/17 9:26 PM Result Value Ref Range Glucose, POC 234 (H) 70 - 100 MG/DL LDH-LACTATE DEHYDROGENASE Collection Time: 04/27/17 5:24 AM Result Value Ref Range Lactate Dehydrogenase 628 (H) 100 - 210 U/L COMPREHENSIVE METABOLIC PANEL Collection Time: 04/27/17 5:24 AM Result Value Ref Range Sodium 138 137 - 147 MMOL/L Potassium 3.8 3.5 - 5.1 MMOL/L Chloride 110 98 - 110 MMOL/L Glucose 175 (H) 70 - 100 MG/DL Blood Urea Nitrogen 36 (H) 7 - 25 MG/DL Creatinine 1.05 (H) 0.4 - 1.00 MG/DL Calcium 8.1 (L) 8.5 - 10.6 MG/DL Total Protein 5.6 (L) 6.0 - 8.0 G/DL Total Bilirubin 0.6 0.3 - 1.2 MG/DL Albumin 2.4 (L) 3.5 - 5.0 G/DL Alk Phosphatase 32 25 - 110 U/L AST (SGOT) 13 7 - 40 U/L CO2 23 21 - 30 MMOL/L ALT (SGPT) 5 (L) 7 - 56 U/L Anion Gap 5 3 - 12 eGFR Non 54 (L) >60 mL/min eGFR >60 >60 mL/min MAGNESIUM Collection Time: 04/27/17 5:24 AM Result Value Ref Range Magnesium 1.9 1.6 - 2.6 mg/dL PHOSPHORUS Collection Time: 04/27/17 5:24 AM Result Value Ref Range Phosphorus 3.2 2.0 - 4.0 MG/DL FIBRINOGEN Collection Time: 04/27/17 5:24 AM Result Value Ref Range Fibrinogen 408 (H) 200 - 400 MG/DL URIC ACID Collection Time: 04/27/17 5:24 AM Result Value Ref Range Uric Acid 4.7 2.0 - 7.0 MG/DL PTT (APTT) Collection Time: 04/27/17 5:24 AM Result Value Ref Range APTT 24.3 21.0 - 39.0 SEC PROTIME INR (PT) Collection Time: 04/27/17 5:24 AM Result Value Ref Range INR 1.4 (H) 0.8 - 1.2 CBC AND DIFF Collection Time: 04/27/17 5:24 AM Result Value Ref Range White Blood Cells 32.6 (H) 4.5 - 11.0 K/UL RBC 2.25 (L) 4.0 - 5.0 M/UL Hemoglobin 7.1 (L) 12.0 - 15.0 GM/DL Hematocrit 20.9 (L) 36 - 45 % MCV 93.1 80 - 100 FL MCH 31.8 26 - 34 PG MCHC 34.1 32.0 - 36.0 G/DL RDW 24.5 (H) 11 - 15 % Platelet Count 15 (LL) 150 - 400 K/UL MPV 9.7 7 - 11 FL Nucleated RBCs 1 K/UL Segmented Neutrophils 14 (L) 41 - 77 % Bands 2 0 - 10 % Lymphocytes 14 (L) 24 - 44 % Monocytes 40 (H) 4 - 12 % Myelocyte 5 % Promyelocyte 3 % Blast 22 % ANISO PRESENT POIK PRESENT POLY PRESENT Ovalocyte PRESENT Teardrop PRESENT Platelet Estimate MKD DEC Absolute Neutrophil Count Manual 5.21 1.8 - 7.0 K/UL POC GLUCOSE Collection Time: 04/27/17 8:05 AM Result Value Ref Range Glucose, POC 161 (H) 70 - 100 MG/DL Telemetry: Atrial Fib rate under control < 100 Alex Hemphill MD, FACC * Abigail Carvajal - 04/27/2017 5:54 AM CDT Formatting of this note may be different from the original. 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 Transfered to the ICU on 04/25/2017 for close monitoring with initiation of Hydrea. Bone marrow biopsy 04/26 and likely start Chemotherapy on 04/27 or 04/28. Transfer back to BMT service and updated. 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 - positive 4.5 L since admission - monitor GI: - 1 BM overnight - tolerating diabetic diet Plan - Continue Miralax and Senna RENAL: SAVANAH on CKD Stage 3 Urinary retention - Cr 1.57 -->1.82 from baseline Cr ~1.2 - 04/27: Cr 1.05 (down from 1.82), Bun 36 HCo3 23 Na 138, Cl 110 - I/O: positive 475 ml last 24 hours with 1.2L out in urine; +4.5 since adm - Note was having c/o difficulty urinating prior to admission - Had gonzalez (? arrived with or was placed on admission) - was removed on 04/24 Plan - Renal following, appreciate assistance - Continue LR at 100ml/hr - CMP, mag, phos daily - Monitor and replace lytes prn -Avoid nephrotoxic agents, renally dose all meds -Goal UOP 100mL/hr - Gonzalez catheter to dependent drainage ID: Sepsis Hx of Recurrent UTIs - Pt presented to OSH on 04/23 with evidence of urosepsis - Received Cefepime and Flagyl at outside hospital - Urine cx from [facility] 04/23: + E.Coli resistant to ampicillin, Bactrim, Nitrofurantoin. Intermediate resistance to gent and Unasyn. Susceptible to ceftriaxone, zosyn, meropenem, cipro and aztreonam - Blood cx x 2 from [facility] 04/23: NGTD - 3/4 SIRS on admission with Tmax 100.8, tachypnea, leukocytosis - 04/27: WBC 32.6 with 2% bands, Tmax 36.9 - Blood cx 04/24: NGTD - Urine cx with < 10,000 organisms contaminate - Sputum cx 04/26: GS with many mixed bacteria, culture in process - Procal 0.51 - Vancomycin x 1 on 04/24, daptomycin 04/25 - 04/26 Plan - Continue Cefepime (started 04/24), ppx Micafungin (started 04/24) and ppx acyclovir (started 04/24) - Continue cefepime or alternative for > 10 days HEME: Acute Myelogenous Leukemia - Pt was transferred from [facility] on 04/24 with leukocytosis concerning for AML (WBC > 52K) - Flow cytometry shows AML with 38% blasts - Uric acid 8.1 on admission s/p rasburicase --> uric acid 4.2 - 04/27: WBC 32.6 with 2% bands, uric acid 4.7, LDH 628 Plan -BM biopsy 04/26 - pending - Continue Hydrea per Heme (3 doses to date) - DIC and TLS labs q8h - Continue allopurinol - Continue ppx with Acyclovir and Micafungin Normocytic Anemia Pancytopenia - Likely due to underlying AML - 04/27: Plt 15, Hgb 7.1, INR 1.4, Fibrinogen 408 - s/p transfusion 1 PRBC 04/26 Plan -Holding COUNTER TOP ASSEMBLER Apixaban - Transfuse to maintain Hgb >7 and plts >10k (unless active bleeding then >50k) -DIC labs q6h ENDO: Hypoglycemia DM2 - COUNTER TOP ASSEMBLER on Glimepiride 4mg - Pt with persistent hypoglycemia on admission, placed on D5NS ggt - discontinued on 04/25 - S/p octreotide x 3 doses - glucose today 175 Plan - Continue to hold glimepiride (held since 04/23) - plan to restart at DC - Endocrine following, appreciate assistance -Continue LDCF FEN: change NS to LR @ 100mL/hr, Diet: Diabetic diet Prophylaxis Review: Lines:PIV, PICC Urinary Catheter:No VTE:SCDs, holding AC due to thrombocytopenia Disposition/Family: Transfer back to BMT service Code Status:Full Code Patient seen and discussed with Dr. Lance Carvajal Subjective: Giselle Moraes is a 56 y.o. female who is alert and awake this morning. Anxious about inability to keep doctors straight, along with anticipation for starting chemotherapy. ROS: No c/o headache, CP, SOA, N/V/D, or rash. Has c/o dry mouth Objective: Medications: Scheduled Meds: acyclovir (ZOVIRAX) tablet 400 mg 400 mg Oral BID allopurinol (ZYLOPRIM) tablet 300 mg 300 mg Oral QDAY cefepime (MAXIPIME) 2 g/100 ml iso-osmotic IVPB 2 g Intravenous Q12H* diltiazem CD (cardIZEM CD) capsule 240 mg 240 mg Oral QDAY hydroxyurea (HYDREA) capsule 1,000 mg 1,000 mg Oral BID insulin aspart (NOVOLOG FLEXPEN) injection PEN 0-7 Units 0-7 Units Subcutaneous ACHS LORazepam (ATIVAN) tablet 1 mg 1 mg Oral ONCE micafungin (MYCAMINE) 50 mg in sodium chloride 0.9% (NS) 105 mL IVPB 50 mg Intravenous Q24H* polyethylene glycol 3350 (MIRALAX) packet 17 g 1 packet Oral QDAY senna (SENOKOT) tablet 1 tablet 1 tablet Oral BID Continuous Infusions: lactated ringers infusion 100 mL/hr at 04/26/179 PRN and Respiratory Meds:acetaminophen Q6H PRN, alteplase PRN (Compliance Representative from Rx) , magnesium sulfate 4 g/50 mL PRN, milk of magnesia (CONC) Q6H PRN, saliva, synthetic PRN, sodium chloride 0.9% irrigation bottle PRN Vital Signs: Last Filed Vital Signs: 24 Hour Range BP: 131/56 (04/27 0500) Temp: 36.7 C (98.1 F) (04/27 0400) Pulse: 76 (04/27 0500) Respirations: 24 PER MINUTE (04/27 050) SpO2: 97 % (04/27 500) O2 Delivery: None (Room Air) (04/27 500) SpO2 Pulse: 71 (04/27 500) BP: (94-140)/(47-90) Temp: [36.4 C (97.6 F)-36.9 C (98.5 F)] Pulse: [63-91] Respirations: [9 PER MINUTE-31 PER MINUTE] SpO2: [84 %-100 %] O2 Delivery: None (Room Air) Vitals: 04/24/17 0728 04/25/17 0215 04/25/17 1145 Weight: (!) 140.9 kg (310 lb 10.1 oz) (!) 142.4 kg (314 lb) (!) 142.9 kg (315 lb 0.6 oz) Intake/Output Summary: (Last 24 hours) Intake/Output Summary (Last 24 hours) at 04/27/17 0554 Last data filed at 04/27/17 0500 Gross per 24 hour Intake 1790 ml Output 1315 ml Net 475 ml Physical Exam: General: alert, pleasant, cooperative, morbidly obese, no acute distress HEENT: Normocephalic, without obvious abnormality, atraumatic. PERRL, Lips, mucosa and tongue moist. trachea midline Lungs: Clear to auscultation bilaterally, normal effort, no wheeze Heart: Irregular rhythm with controlled rate,. systolic murmur appreciated Abdomen: Soft, obese, non-tender. Bowel sounds normal. Extremities: Extremities normal, atraumatic, no cyanosis, trace edema Peripheral pulses: 2+ and symmetric, all extremities Skin: Skin color, texture, turgor normal. Multiple bruises on extremities Neurologic: Normal strength, sensation and reflexes throughout. Artificial airway: None Ventilator/ Respiratory Therapy: No Vent weaning trial: Not applicable Laboratory: LABS: Recent Labs 04/24/17 1600 04/24/17 1800 04/25/17 0515 04/25/17 0734 04/25/17 1255 04/25/17 1943 04/26/17 0430 04/26/17 1157 04/26/171952 NA -- -- -- 131* 132* 134* 136* 136* 137 K -- -- -- 4.7 4.5 4.0 4.1 3.9 3.7 CL -- -- -- 104 105 106 107 109 109 CO2 -- -- -- 20* 21 22 23 22 21 GAP -- -- -- 7 6 6 6 5 7 BUN -- -- -- 32* 35* 39* 40* 41* 38* CR -- -- -- 1.82* 1.75* 1.75* 1.50* 1.32* 1.18* GLU -- -- -- 225* 202* 275* 173* 168* 233* CA -- -- -- 7.8* 8.0* 7.8* 8.0* 7.9* 8.0* ALBUMIN -- -- -- 2.5* -- -- 2.4* -- -- MG 1.9 -- -- 2.1 2.1 -- 2.0 -- -- PO4 -- 3.4 3.9 -- 3.7 4.3* 4.0 3.5 3.2 HGBA1C 5.2 -- -- -- -- -- -- -- -- Recent Labs 04/24/17 1600 04/24/17 1800 04/25/17 0515 04/25/17 0734 04/25/17 1255 04/25/17 1943 04/26/17 0430 04/26/17 1157 04/26/17 195 WBC 65.6* -- -- 77.1* 78.3* 56.3* 49.5* 51.3* 35.5* HGB 6.4* -- -- 6.9* 7.8* 7.2* 6.9* 6.2* 7.5* HCT 18.7* -- -- 19.9* 22.7* 21.2* 20.3* 17.7* 21.6* PLTCT 29* -- -- 28* 30* 25* 21* 18* 14* INR -- 2.0* 2.0* -- 1.9* 1.8* 1.6* 1.6* 1.6* PTT -- 30.2 28.8 -- 30.8 29.7 24.9 28.5 27.0 AST -- -- -- 19 -- -- 15 -- -- ALT -- -- -- 6* -- -- 5* -- -- ALKPHOS -- -- -- 33 -- -- 36 -- -- Estimated Creatinine Clearance: 77.2 mL/min (based on Cr of 1.18). Vitals: 04/24/17 0728 04/25/17 0215 04/25/17 1145 Weight: (!) 140.9 kg (310 lb 10.1 oz) (!) 142.4 kg (314 lb) (!) 142.9 kg (315 lb 0.6 oz) No results for input(s): PHART, PO2ART in the last 72 hours. Invalid input(s): PC02A Radiology and Other Diagnostic Procedures Review: Reviewed * Luis Whitley MD - 04/26/2017 5:29 PM CDT Formatting of this note may be different from the original. MICU STAFF NOTE This note is a documentation of critical care independently provided for the patient today. I have seen, personally fully evaluated, and assessed the patient. 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) Thrombocytopenia (HCC) SAVANAH (acute kidney injury) (HCC) Acute cystitis without hematuria Sepsis (HCC) Coagulopathy (HCC) Chronic atrial fibrillation (HCC) Protein-calorie malnutrition (HCC) Leukocytosis I spent 40 minutes (excluding time spent performing or supervising any procedures and independent of the time spent by the BODY WORK AUTO TRIMMER) providing and personally directing critical care services including: Systems and physical examination Review and management of ICU prophylaxis and core measures Review of laboratory data Review of telemetry data Review of imaging studies Review of medications Fluid and electrolyte management Ms. Moraes remains critically ill with new AML. Monitor for tumor lysis and volume / electrolyte shifts. For bone marrow biopsy today and may start chemotherapy 04/27/17. Cont aggressive ICU care and monitoring. Guarded prognosis. Updated pt and family at bedside. Luis Whitley [phone] * Ari Collazo MD - 04/26/2017 5:25 PM CDT Formatting of this note may be different from the original. Endocrinology progress note Today's Date: 04/26/2017 Admission Date: 04/24/2017 Reason for this consultation: Assessment: Type 2 diabetes mellitus: A1c unknown, ordered COUNTER TOP ASSEMBLER regimen: Glimepiride 4 mg daily Hypoglycemic episodes on this regimen: Unknown Follows up with for diabetes management: PCP Diabetic-complications assessment: Retinopathy: Last eye exam 2 years back, no retinopathy Peripheral neuropathy: Yes Autonomic neuropathy: No Nephropathy: Yes Macrovascular complications: No Risk factor assessment: Last lipid profile -none in chart On ACEi/ARB?:No On Statin?: No Recurrent hypoglycemia: Last dose of glimepiride 4 mg was on 04/23 in the morning, at home. Hypoglycemia is recurrent in spite of D5 normal saline drip. Recurrent UTI Acute leukemia A. fib CKD stage III Recommendations: -Hypoglycemia has resolved. -We will discontinue octreotide. -continue low-dose correction factor before meals and bedtime for now - plan to restart glimepiride lower dose at discharge. -Patient is currently NPO for IR we will continue to follow. Patient was seen and discussed with Dr. Valle History of Present Illness Giselle Moraes is a 56 y.o. female with past medical history of A. fib, type 2 diabetes, CKD stage III, UTI, anxiety was admitted for suspicion for acute leukemia. Endocrinology was consulted for recurrent hypoglycemia. Patient is still very fatigued. No more hypoglycemia. Estimated Creatinine Clearance: 69 mL/min (based on Cr of 1.32). 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 No pertinent family history. Allergies Allergies Allergen Reactions Ciprofloxacin SEE COMMENTS Per Nephrology doctors. Levofloxacin SEE COMMENTS Per nephrology doctors. Nsaids (Non-Steroidal Anti-Inflammatory Drug) SEE COMMENTS Per nephrology doctors. Bactrim [Sulfamethoxazole-Trimethoprim] SEE COMMENTS Per Nephrology Doctors. Contrast Dye Iv, Iodine Containing [Iodinated Contrast- Oral And Iv Dye] SEE COMMENTS Per nephrology doctors. Review of Systems A comprehensive 14-point review of systems was negative with exception of: Fatigue, feeling cold, shaky Medications Scheduled Meds: acyclovir (ZOVIRAX) tablet 400 mg 400 mg Oral BID allopurinol (ZYLOPRIM) tablet 300 mg 300 mg Oral QDAY cefepime (MAXIPIME) 2 g/100 ml iso-osmotic IVPB 2 g Intravenous Q12H* diltiazem CD (cardIZEM CD) capsule 240 mg 240 mg Oral QDAY hydroxyurea (HYDREA) capsule 1,000 mg 1,000 mg Oral BID insulin aspart (NOVOLOG FLEXPEN) injection PEN 0-7 Units 0-7 Units Subcutaneous ACHS micafungin (MYCAMINE) 50 mg in sodium chloride 0.9% (NS) 105 mL IVPB 50 mg Intravenous Q24H* polyethylene glycol 3350 (MIRALAX) packet 17 g 1 packet Oral QDAY senna (SENOKOT) tablet 1 tablet 1 tablet Oral BID Continuous Infusions: lactated ringers infusion Stopped (04/26/17 1128) PRN and Respiratory Meds:acetaminophen Q6H PRN, alteplase PRN (Compliance Representative from Rx) , fentaNYL citrate PF Intra-procedure Med, magnesium sulfate 4 g/50 mL PRN, midazolam Intra-procedure Med, milk of magnesia (CONC) Q6H PRN, saliva, synthetic PRN, sodium chloride 0.9% irrigation bottle PRN Physical Examination Vital Signs: Last Vital Signs: 24 Hour Range BP: 114/71 (04/26 1710) Temp: 36.9 C (98.5 F) (04/26 1600) Pulse: 78 (04/26 1710) Respirations: 16 PER MINUTE (04/26 1710) SpO2: 90 % (04/26 1710) O2 Delivery: Nasal Cannula (04/26 1710) SpO2 Pulse: 79 (04/26 1710) BP: (94-140)/(43-90) Temp: [36.4 C (97.6 F)-36.9 C (98.5 F)] Pulse: [63-87] Respirations: [13 PER MINUTE-27 PER MINUTE] SpO2: [88 %-100 %] O2 Delivery: Nasal Cannula General appearance: alert, oriented, fatigued HENT: Dry oral mucosa, dried blood on lips Lungs: no wheezing, rhonchi, rales appreciated Heart: Regular rhythm, reg rate, with no murmur, rub, gallop Abdomen: soft, non-tender, non-distended, normoactive bowel sounds, Ext: No clubbing, cyanosis or edema Skin: no rashes/lesions Lab Review Point of Care Testing (Last 24 hours) Glucose: (!) 168 (04/26/17 1157) POC Glucose (Download): (!) 174 (04/26/17 1156) Recent Labs 04/24/1715404/24/17 1600 04/24/17 1800 04/25/17 0515 04/25/17 0734 04/25/17 1255 04/25/17194204/26/17 0430 04/26/17 115 NA 135* -- -- -- 131* 132* 134* 136* 136* K 3.8 -- -- -- 4.7 4.5 4.0 4.1 3.9 CL 103 -- -- -- 104 105 106 107 109 CO2 23 -- -- -- 20* 21 22 23 22 GAP 9 -- -- -- 7 6 6 6 5 BUN 30* -- -- -- 32* 35* 39* 40* 41* CR 1.57* -- -- -- 1.82* 1.75* 1.75* 1.50* 1.32* GLU 164* -- -- -- 225* 202* 275* 173* 168* CA 8.2* -- -- -- 7.8* 8.0* 7.8* 8.0* 7.9* ALBUMIN 2.8* -- -- -- 2.5* -- -- 2.4* -- MG 2.1 1.9 -- -- 2.1 2.1 -- 2.0 -- PO4 3.8 -- 3.4 3.9 -- 3.7 4.3* 4.0 3.5 HGBA1C -- 5.2 -- -- -- -- -- -- -- Recent Labs 04/24/1715404/24/17 1600 04/24/17 1800 04/25/17 0515 04/25/17 0734 04/25/17 1255 04/25/17194204/26/17 0430 04/26/171156 WBC 58.2* 65.6* -- -- 77.1* 78.3* 56.3* 49.5* 51.3* HGB 7.2* 6.4* -- -- 6.9* 7.8* 7.2* 6.9* 6.2* HCT 20.9* 18.7* -- -- 19.9* 22.7* 21.2* 20.3* 17.7* PLTCT 43* 29* -- -- 28* 30* 25* 21* 18* INR 2.4* -- 2.0* 2.0* -- 1.9* 1.8* 1.6* 1.6* PTT 27.7 -- 30.2 28.8 -- 30.8 29.7 24.9 28.5 AST 27 -- -- -- 19 -- -- 15 -- ALT 6* -- -- -- 6* -- -- 5* -- ALKPHOS 35 -- -- -- 33 -- -- 36 -- Estimated Creatinine Clearance: 69 mL/min (based on Cr of 1.32). Vitals: 04/24/17 0728 04/25/17 0215 04/25/17 1145 Weight: (!) 140.9 kg (310 lb 10.1 oz) (!) 142.4 kg (314 lb) (!) 142.9 kg (315 lb 0.6 oz) Thyroid Studies No results found for: TSH, FREET4, FREEINDEX No results found for: FREET3, [id number], THYBINDGLB Ari Collazo MD Endocrinology Fellow [id number] [phone] Associated attestation - Pierce Valle MD - 04/26/2017 7:10 PM CDT Formatting of this note may be different from the original. ATTESTATION I personally performed the carrizales portions of the E/M visit, discussed case with resident and concur with resident documentation of history, physical exam, assessment, and treatment plan unless otherwise noted. Staff name: Pierce Valle MD Date: 04/26/2017 * Tez Lowry, RN - 04/26/2017 5:03 PM CDT Sedation physician present in room. Recent vitals and patient condition reviewed between sedating physician and nurse. Reassessment completed. Determination made to proceed with planned sedation. * Hillary Doherty, WOOD CARVING LATHE OPERATOR - 04/26/2017 3:47 PM CDT Formatting of this note may be different from the original. 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 female with PMH of Afib on AC, DM2 with neuropathy, CKD,recurrent UTI , kidney stones, arthritis, gout and anxiety who has been transferred from [facility] due to concern for acute leukemia. Transfered to the ICU on 04/25/2017 for close monitoring with initiation of Hydrea. Plan for Bone marrow biopsy today and likely start Chemotherapy on 04/27/2017 HEME: Acute Myelogenous Leukemia - Pt was transferred from [facility] on 04/24 with leukocytosis concerning for AML (WBC > 52K) - Flow cytometry shows AML with 38% blasts - Uric acid 8.1 on admission s/p rasburicase --> uric acid 4.2 - 04/26: WBC 49.5 with 4% bands, uric acid 4.8, LDH 747 Plan - BM biopsy to be done in IR today - pending - Continue Hydrea today per Heme (3doses to date) - DIC and TLS labs q8h - Continue allopurinol - Ppx with Acyclovir and Micafungin Normocytic Anemia Pancytopenia - Likely due to underlying AML - 04/26: Plt 21, Hgb 6.9, INR 1.6, Fibrinogen 482 Plan - Transfuse 1 pk PRBC - Holding COUNTER TOP ASSEMBLER Apixaban - Transfuse to maintain Hgb >7 and plts >10k (unless active bleeding then >50k) - DIC labs q6h WIRE BRUSHER: No acute issues Alert and oriented x 4 Cardiovascular: Persistent or Permanent Afib - 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 Respiratory: - No acute issues - Currently oxygen sats stable on 2L - CXR on 04/25 with small bilateral pleural effusions Plan - wean oxygen as able - goal O2 sats > 92% GI: - Last BM on 04/23/17 - Currently refusing stool softeners/laxatives Plan - NPO for now with bone marrow planned in IR - ADAT to diabetic diet once back from IR - Make Miralax and senna available and encourage use - May need to consider suppository vs enema if no BM in next 24 hours : SAVANAH on CKD Stage 3 - Cr 1.57 --> 1.82 from baseline Cr ~1.2 - 04/26: Cr 1.5 (down from 1.82), Bun 40, HCo3 23, Na 136, Cl 107 - I/O: positive 1.0L last 24 hours with 1.2L out in urine - Note was having c/o difficulty urinating prior to admission - Had gonzalez (? arrived with or was placed on admission) - was removed on 04/24 Plan - Renal following, appreciate assistance - NS running at 100ml/hr - change to LR with rising chloride - CMP, mag, phos daily - Monitor and replace lytes prn, - Avoid nephrotoxic agents, renally dose all meds - Goal UOP 100mL/hr - hold lasix for now - low threshold to begin to augment IVF if signs of volume overload, reduced UOP - Bladder scan vs staright cath to evaluate for possible retention moderate UOP despite continuous IVF ID: Sepsis Hx of Recurrent UTIs - Pt presented to OSH on 04/23 with evidence of urosepsis - Received Cefepime and Flagyl at outside hospital - Urine cx from [facility] 04/23: + E.Coli resistant to ampicillin, Bactrim, Nitrofurantoin. Intermediate resistance to gent and Unasyn. 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 I spent 70 minutes providing critical care services including: performing a physical examination serially reviewing laboratory, telemetry, hemodynamic, oximetry, and respiratory data reviewing radiographic images reviewing medications managing fluids/electrolytes, antibiotics, ICU prophylaxis developing the overall plan of care Patient seen and discussed with Dr. Lance Doherty APRN Pulmonary/Critical Care Pager [phone] Team Pager [phone] Subjective: Giselle Moraes is a 56 y.o. female who is awake and alert this morning, sitting up in the bed. Did not sleep much overnight. Has not had a BM since Monday 04/23, but does not want to start on any tool softeners/laxatives. Nervous about bone marrow biopsy. at bedside. ROS: No c/o CP, SOA, N/V/D, headache or rash. Has c/o dry mouth Objective: Medications: Scheduled Meds: acyclovir (ZOVIRAX) tablet 400 mg 400 mg Oral BID allopurinol (ZYLOPRIM) tablet 300 mg 300 mg Oral QDAY cefepime (MAXIPIME) 2 g/100 ml iso-osmotic IVPB 2 g Intravenous Q12H* DAPTOmycin (CUBICIN) 855 mg in sodium chloride 0.9% (NS) IVPB 6 mg/kg Intravenous Q24H* diltiazem CD (cardIZEM CD) capsule 240 mg 240 mg Oral QDAY hydroxyurea (HYDREA) capsule 1,000 mg 1,000 mg Oral BID insulin aspart (NOVOLOG FLEXPEN) injection PEN 0-7 Units 0-7 Units Subcutaneous ACHS micafungin (MYCAMINE) 50 mg in sodium chloride 0.9% (NS) 105 mL IVPB 50 mg Intravenous Q24H* Continuous Infusions: sodium chloride 0.9 % infusion 100 mL/hr at 04/25/17 2347 PRN and Respiratory Meds:acetaminophen Q6H PRN, alteplase PRN (Compliance Representative from Rx) , magnesium sulfate 4 g/50 mL PRN, milk of magnesia (CONC) Q6H PRN, potassium chloride PRN (Compliance Representative from Rx) OR potassium chloride SR PRN (Compliance Representative from Rx ), sodium chloride 0.9% irrigation bottle PRN Vital Signs: Last Filed Vital Signs: 24 Hour Range BP: 112/60 (04/26 600) Temp: 36.8 C (98.3 F) (04/26 0400) Pulse: 80 (04/26 600) Respirations: 19 PER MINUTE (04/26 600) SpO2: 97 % (04/26 600) O2 Delivery: Nasal Cannula (04/26 600) SpO2 Pulse: 94 (04/26 600) BP: (95-151)/(43-102) Temp: [36.8 C (98.3 F)-37.2 C (99 F)] Pulse: [74-93] Respirations: [13 PER MINUTE-28 PER MINUTE] SpO2: [93 %-100 %] O2 Delivery: Nasal Cannula Intensity Pain Scale 0-10 (Pain 1): 0 (04/25/17 0813) Vitals: 04/24/17 0728 04/25/17 0215 04/25/17 1145 Weight: (!) 140.9 kg (310 lb 10.1 oz) (!) 142.4 kg (314 lb) (!) 142.9 kg (315 lb 0.6 oz) Intake/Output Summary: (Last 24 hours) Intake/Output Summary (Last 24 hours) at 04/26/17 0747 Last data filed at 04/26/17 0600 Gross per 24 hour Intake 2250 ml Output 1125 ml Net 1125 ml Physical Exam: General: Awake and Alert, cooperative, morbidly obese, no acute distress HEENT: Normocephalic, without obvious abnormality, atraumatic. PERRL, Lips, mucosa and tongue dry with dried blood. trachea midline Lungs: Clear to auscultation bilaterally, normal effort, no wheeze Heart: Regular rate and rhythm, S1, S2 normal, systolic murmur appreciated Abdomen: Soft, obese, non-tender. Bowel sounds normal. Extremities: Extremities normal, atraumatic, no cyanosis, trace edema Peripheral pulses: 2+ and symmetric, all extremities Skin: Skin color, texture, turgor normal. Multiple bruises on extremities Neurologic: Normal strength, sensation and reflexes throughout. Ventilator/ Respiratory Support: No Artificial airway: None Ventilator/ Respiratory Therapy: No Vent weaning trial: Not applicable Laboratory: LABS: Recent Labs 04/24/17 0155 04/24/17 1600 04/24/17 1800 04/25/17 0515 04/25/17 0734 04/25/17 1255 04/25/17 1943 04/26/17 0430 NA 135* -- -- -- 131* 132* 134* 136* K 3.8 -- -- -- 4.7 4.5 4.0 4.1 CL 103 -- -- -- 104 105 106 107 CO2 23 -- -- -- 20* 21 22 23 GAP 9 -- -- -- 7 6 6 6 BUN 30* -- -- -- 32* 35* 39* 40* CR 1.57* -- -- -- 1.82* 1.75* 1.75* 1.50* GLU 164* -- -- -- 225* 202* 275* 173* CA 8.2* -- -- -- 7.8* 8.0* 7.8* 8.0* ALBUMIN 2.8* -- -- -- 2.5* -- -- 2.4* MG 2.1 1.9 -- -- 2.1 2.1 -- 2.0 PO4 3.8 -- 3.4 3.9 -- 3.7 4.3* 4.0 HGBA1C -- 5.2 -- -- -- -- -- -- Recent Labs 04/24/17 0155 04/24/17 1600 04/24/17 1800 04/25/17 0515 04/25/17 0734 04/25/17 1255 04/25/17 1943 04/26/17 0430 WBC 58.2* 65.6* -- -- 77.1* 78.3* 56.3* 49.5* HGB 7.2* 6.4* -- -- 6.9* 7.8* 7.2* 6.9* HCT 20.9* 18.7* -- -- 19.9* 22.7* 21.2* 20.3* PLTCT 43* 29* -- -- 28* 30* 25* 21* INR 2.4* -- 2.0* 2.0* -- 1.9* 1.8* 1.6* PTT 27.7 -- 30.2 28.8 -- 30.8 29.7 24.9 AST 27 -- -- -- 19 -- -- 15 ALT 6* -- -- -- 6* -- -- 5* ALKPHOS 35 -- -- -- 33 -- -- 36 Estimated Creatinine Clearance: 60.7 mL/min (based on Cr of 1.5). Vitals: 04/24/17 0728 04/25/17 0215 04/25/17 1145 Weight: (!) 140.9 kg (310 lb 10.1 oz) (!) 142.4 kg (314 lb) (!) 142.9 kg (315 lb 0.6 oz) No results for input(s): PHART, PO2ART in the last 72 hours. Invalid input(s): PC02A Radiology and Other Diagnostic Procedures Review: Reviewed * Kelsi Oviedo, PT - 04/26/2017 3:05 PM CDT PHYSICAL THERAPY NOTE Discussed patient with bed side nurse. Nurse requested to hold at this time as patient preparing to go to IR for bone marrow biopsy. Physical therapy will continue to follow and provide intervention as appropriate. Therapist: Kelsi Oviedo, PT, DPT Date: 04/26/2017 * Basil Wallace MD - 04/26/2017 10:14 AM CDT Formatting of this note may be different from the original. 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 Now showing signs of recovery. Known CKD-3 with reported baseline creatinine of 1.2mg/dL. AML with 38% myeloblast. Thrombocytopenia likely due to AML. DM Obestiy. Recommendations: Creatinine is trending down and urine out put has increased. I agree with starting maintenance IVF at 100ml/hr. We will need to monitor her serum Na closely while on LR. Check daily Phos, Ca, and uric acid level. Avoid nephrotoxins and hemodynamic compromise. Monitor renal function closely through AML treatment. Subjective Giselle Moraes is a 56 y.o. female. Patient feels tired and thirsty. No soa reported at rest. No nausea reported. No chest pain reported. Vitals signs, intake and output record was reviewed. Medications Scheduled Meds: acyclovir (ZOVIRAX) tablet 400 mg 400 mg Oral BID allopurinol (ZYLOPRIM) tablet 300 mg 300 mg Oral QDAY cefepime (MAXIPIME) 2 g/100 ml iso-osmotic IVPB 2 g Intravenous Q12H* DAPTOmycin (CUBICIN) 855 mg in sodium chloride 0.9% (NS) IVPB 6 mg/kg Intravenous Q24H* diltiazem CD (cardIZEM CD) capsule 240 mg 240 mg Oral QDAY hydroxyurea (HYDREA) capsule 1,000 mg 1,000 mg Oral BID insulin aspart (NOVOLOG FLEXPEN) injection PEN 0-7 Units 0-7 Units Subcutaneous ACHS micafungin (MYCAMINE) 50 mg in sodium chloride 0.9% (NS) 105 mL IVPB 50 mg Intravenous Q24H* polyethylene glycol 3350 (MIRALAX) packet 17 g 1 packet Oral QDAY senna (SENOKOT) tablet 1 tablet 1 tablet Oral BID SODIUM CHLORIDE 0.9 % IV SOLP (Cabinet Override) NOW Continuous Infusions: lactated ringers infusion 100 mL/hr at 04/26/17 1010 PRN and Respiratory Meds:acetaminophen Q6H PRN, alteplase PRN (Compliance Representative from Rx) , magnesium sulfate 4 g/50 mL PRN, milk of magnesia (CONC) Q6H PRN, saliva, synthetic PRN, sodium chloride 0.9% irrigation bottle PRN Review of Systems: Objective: Vital Signs: Last Filed Vital Signs: 24 Hour Range BP: 113/91 (04/26 910) Temp: 36.8 C (98.2 F) (04/26 910) Pulse: 85 (04/26 910) Respirations: 22 PER MINUTE (04/26 910) SpO2: 92 % (04/26 910) O2 Delivery: Nasal Cannula (04/26 800) SpO2 Pulse: 74 (04/26 800) BP: (95-151)/(43-102) Temp: [36.4 C (97.6 F)-37.2 C (98.9 F)] Pulse: [73-90] Respirations: [13 PER MINUTE-28 PER MINUTE] SpO2: [92 %-100 %] O2 Delivery: Nasal Cannula Vitals: 04/24/17 0728 04/25/17 0215 04/25/17 1145 Weight: (!) 140.9 kg (310 lb 10.1 oz) (!) 142.4 kg (314 lb) (!) 142.9 kg (315 lb 0.6 oz) Intake/Output Summary: (Last 24 hours) Intake/Output Summary (Last 24 hours) at 04/26/17 1014 Last data filed at 04/26/17 1000 Gross per 24 hour Intake 2290 ml Output 1230 ml Net 1060 ml Physical Exam Gen Chay: Pt is in no distress Chest: Dec AE at bases. Clear to auscultate bilaterally CVS: S1S2 normal No murmurs Abd: Soft abdomen with normal BS MS. Edema tarce Neuro: Alert and oriented. No focal deficit on gross neuro exam. Skin. Petechial rash on upper chest. Neck: no thyromegaly, no palpable mass. No JVD HEENT. No JVD normal exam. Dry mouth. Few blood blisters on lips. Lab Review 24-hour labs: Results for orders placed or performed during the hospital encounter of (from the past 24 hour(s)) BASIC METABOLIC PANEL Collection Time: 04/25/17 12:55 PM Result Value Ref Range Sodium 132 (L) 137 - 147 MMOL/L Potassium 4.5 3.5 - 5.1 MMOL/L Chloride 105 98 - 110 MMOL/L CO2 21 21 - 30 MMOL/L Anion Gap 6 3 - 12 Glucose 202 (H) 70 - 100 MG/DL Blood Urea Nitrogen 35 (H) 7 - 25 MG/DL Creatinine 1.75 (H) 0.4 - 1.00 MG/DL Calcium 8.0 (L) 8.5 - 10.6 MG/DL eGFR Non 30 (L) >60 mL/min eGFR 36 (L) >60 mL/min MAGNESIUM Collection Time: 04/25/17 12:55 PM Result Value Ref Range Magnesium 2.1 1.6 - 2.6 mg/dL PHOSPHORUS Collection Time: 04/25/17 12:55 PM Result Value Ref Range Phosphorus 3.7 2.0 - 4.0 MG/DL FIBRINOGEN Collection Time: 04/25/17 12:55 PM Result Value Ref Range Fibrinogen 442 (H) 200 - 400 MG/DL URIC ACID Collection Time: 04/25/17 12:55 PM Result Value Ref Range Uric Acid 4.2 2.0 - 7.0 MG/DL CBC AND DIFF Collection Time: 04/25/17 12:55 PM Result Value Ref Range White Blood Cells 78.3 (HH) 4.5 - 11.0 K/UL RBC 2.36 (L) 4.0 - 5.0 M/UL Hemoglobin 7.8 (L) 12.0 - 15.0 GM/DL Hematocrit 22.7 (L) 36 - 45 % MCV 96.5 80 - 100 FL MCH 33.3 26 - 34 PG MCHC 34.5 32.0 - 36.0 G/DL RDW 24.3 (H) 11 - 15 % Platelet Count 30 (L) 150 - 400 K/UL MPV 10.3 7 - 11 FL Segmented Neutrophils 10 (L) 41 - 77 % Bands 1 0 - 10 % Lymphocytes 18 (L) 24 - 44 % Monocytes 12 4 - 12 % Myelocyte 2 % Other Cells 57 % POLY PRESENT Ovalocyte PRESENT Platelet Estimate MKD DEC Absolute Neutrophil Count Manual 8.61 (H) 1.8 - 7.0 K/UL PTT (APTT) Collection Time: 04/25/17 12:55 PM Result Value Ref Range APTT 30.8 21.0 - 39.0 SEC PROTIME INR (PT) Collection Time: 04/25/17 12:55 PM Result Value Ref Range INR 1.9 (H) 0.8 - 1.2 D-DIMER Collection Time: 04/25/17 12:55 PM Result Value Ref Range D-Dimer 1112 (H) <230 ng/mL DDU LACTIC ACID (BG - RAPID LACTATE) Collection Time: 04/25/17 2:35 PM Result Value Ref Range Lactic Acid,BG 0.7 0.5 - 2.0 MMOL/L POC GLUCOSE Collection Time: 04/25/17 4:16 PM Result Value Ref Range Glucose, POC 203 (H) 70 - 100 MG/DL PHOSPHORUS Collection Time: 04/25/17 7:43 PM Result Value Ref Range Phosphorus 4.3 (H) 2.0 - 4.0 MG/DL FIBRINOGEN Collection Time: 04/25/17 7:43 PM Result Value Ref Range Fibrinogen 493 (H) 200 - 400 MG/DL URIC ACID Collection Time: 04/25/17 7:43 PM Result Value Ref Range Uric Acid 4.5 2.0 - 7.0 MG/DL PTT (APTT) Collection Time: 04/25/17 7:43 PM Result Value Ref Range APTT 29.7 21.0 - 39.0 SEC PROTIME INR (PT) Collection Time: 04/25/17 7:43 PM Result Value Ref Range INR 1.8 (H) 0.8 - 1.2 BASIC METABOLIC PANEL Collection Time: 04/25/17 7:43 PM Result Value Ref Range Sodium 134 (L) 137 - 147 MMOL/L Potassium 4.0 3.5 - 5.1 MMOL/L Chloride 106 98 - 110 MMOL/L CO2 22 21 - 30 MMOL/L Anion Gap 6 3 - 12 Glucose 275 (H) 70 - 100 MG/DL Blood Urea Nitrogen 39 (H) 7 - 25 MG/DL Creatinine 1.75 (H) 0.4 - 1.00 MG/DL Calcium 7.8 (L) 8.5 - 10.6 MG/DL eGFR Non 30 (L) >60 mL/min eGFR 36 (L) >60 mL/min CBC AND DIFF Collection Time: 04/25/17 7:43 PM Result Value Ref Range White Blood Cells 56.3 (HH) 4.5 - 11.0 K/UL RBC 2.18 (L) 4.0 - 5.0 M/UL Hemoglobin 7.2 (L) 12.0 - 15.0 GM/DL Hematocrit 21.2 (L) 36 - 45 % MCV 97.3 80 - 100 FL MCH 33.0 26 - 34 PG MCHC 34.0 32.0 - 36.0 G/DL RDW 24.0 (H) 11 - 15 % Platelet Count 25 (L) 150 - 400 K/UL MPV 10.6 7 - 11 FL Nucleated RBCs 2 K/UL Segmented Neutrophils 12 (L) 41 - 77 % Lymphocytes 22 (L) 24 - 44 % Monocytes 19 (H) 4 - 12 % Myelocyte 1 % Other Cells 46 % ANISO PRESENT Ovalocyte PRESENT Platelet Estimate MKD DEC Absolute Neutrophil Count Manual 6.76 1.8 - 7.0 K/UL POC GLUCOSE Collection Time: 04/25/17 7:58 PM Result Value Ref Range Glucose, POC 286 (H) 70 - 100 MG/DL IONIZED CALCIUM Collection Time: 04/25/17 9:57 PM Result Value Ref Range Ionized Calcium 1.08 1.0 - 1.3 MMOL/L POC GLUCOSE Collection Time: 04/26/17 4:28 AM Result Value Ref Range Glucose, POC 194 (H) 70 - 100 MG/DL LDH-LACTATE DEHYDROGENASE Collection Time: 04/26/17 4:30 AM Result Value Ref Range Lactate Dehydrogenase 747 (H) 100 - 210 U/L COMPREHENSIVE METABOLIC PANEL Collection Time: 04/26/17 4:30 AM Result Value Ref Range Sodium 136 (L) 137 - 147 MMOL/L Potassium 4.1 3.5 - 5.1 MMOL/L Chloride 107 98 - 110 MMOL/L Glucose 173 (H) 70 - 100 MG/DL Blood Urea Nitrogen 40 (H) 7 - 25 MG/DL Creatinine 1.50 (H) 0.4 - 1.00 MG/DL Calcium 8.0 (L) 8.5 - 10.6 MG/DL Total Protein 5.8 (L) 6.0 - 8.0 G/DL Total Bilirubin 0.6 0.3 - 1.2 MG/DL Albumin 2.4 (L) 3.5 - 5.0 G/DL Alk Phosphatase 36 25 - 110 U/L AST (SGOT) 15 7 - 40 U/L CO2 23 21 - 30 MMOL/L ALT (SGPT) 5 (L) 7 - 56 U/L Anion Gap 6 3 - 12 eGFR Non 36 (L) >60 mL/min eGFR 43 (L) >60 mL/min MAGNESIUM Collection Time: 04/26/17 4:30 AM Result Value Ref Range Magnesium 2.0 1.6 - 2.6 mg/dL PHOSPHORUS Collection Time: 04/26/17 4:30 AM Result Value Ref Range Phosphorus 4.0 2.0 - 4.0 MG/DL FIBRINOGEN Collection Time: 04/26/17 4:30 AM Result Value Ref Range Fibrinogen 482 (H) 200 - 400 MG/DL URIC ACID Collection Time: 04/26/17 4:30 AM Result Value Ref Range Uric Acid 4.8 2.0 - 7.0 MG/DL PTT (APTT) Collection Time: 04/26/17 4:30 AM Result Value Ref Range APTT 24.9 21.0 - 39.0 SEC PROTIME INR (PT) Collection Time: 04/26/17 4:30 AM Result Value Ref Range INR 1.6 (H) 0.8 - 1.2 CBC AND DIFF Collection Time: 04/26/17 4:30 AM Result Value Ref Range White Blood Cells 49.5 (H) 4.5 - 11.0 K/UL RBC 2.06 (L) 4.0 - 5.0 M/UL Hemoglobin 6.9 (L) 12.0 - 15.0 GM/DL Hematocrit 20.3 (L) 36 - 45 % MCV 98.5 80 - 100 FL MCH 33.3 26 - 34 PG MCHC 33.8 32.0 - 36.0 G/DL RDW 24.7 (H) 11 - 15 % Platelet Count 21 (LL) 150 - 400 K/UL MPV 9.8 7 - 11 FL Segmented Neutrophils 8 (L) 41 - 77 % Bands 4 0 - 10 % Lymphocytes 9 (L) 24 - 44 % Monocytes 31 (H) 4 - 12 % Myelocyte 3 % Other Cells 45 % ANISO PRESENT Ovalocyte PRESENT Absolute Neutrophil Count Manual 5.94 1.8 - 7.0 K/UL POC GLUCOSE Collection Time: 04/26/17 7:01 AM Result Value Ref Range Glucose, POC 185 (H) 70 - 100 MG/DL Point of Care Testing (Last 24 hours) Glucose: (!) 173 (04/26/17 0430) POC Glucose (Download): (!) 185 (04/26/17 0701) Radiology and other Diagnostics Review: Pertinent radiology reviewed. Basil Wallace MD Nephrology Pager: [phone] * Alex Hemphill MD - 04/26/2017 8:53 AM CDT Formatting of this note may be different from the original. Staff Cardiology Progress Note Admission Date: 04/24/2017 Today's Date: 04/26/2017 LOS: 2 days Code Status: Full Code Assessment & Plan Giselle Moraes Chronic AF: - States has AF for last 1 year and never had cardioversion or ablation - rate is under control - Was on Atenolol and Cardizem. Now on Cardizem alone - If rate is increased, may start Atenolol 25 or 50 mg daily as BP permits - Not a candidate for AC at present due to low platelet count Mild to mod : - No work up needed at present - + 4L, Watch fluid balance. Diuresis as needed Echo: 04/24/17: 1. EF 60%. Moderate left atrial enlargement 2. Normal RV size and systolic function. 3. Moderately dilated left atrium 4. AV is thickened. It is not well seen and a bicuspid valve cannot be excluded. There is mild to moderate . No AI Subjective Giselle Moraes 56 yr old female with h/o permanent AF, mild to moderate , AML , DM, CKD, nephrolithiasis obesity admitted with suspicious acute leukemia. Patient denies chest pain, dyspnea or palpitations. Medications Scheduled Meds: acyclovir (ZOVIRAX) tablet 400 mg 400 mg Oral BID allopurinol (ZYLOPRIM) tablet 300 mg 300 mg Oral QDAY cefepime (MAXIPIME) 2 g/100 ml iso-osmotic IVPB 2 g Intravenous Q12H* DAPTOmycin (CUBICIN) 855 mg in sodium chloride 0.9% (NS) IVPB 6 mg/kg Intravenous Q24H* diltiazem CD (cardIZEM CD) capsule 240 mg 240 mg Oral QDAY hydroxyurea (HYDREA) capsule 1,000 mg 1,000 mg Oral BID insulin aspart (NOVOLOG FLEXPEN) injection PEN 0-7 Units 0-7 Units Subcutaneous ACHS micafungin (MYCAMINE) 50 mg in sodium chloride 0.9% (NS) 105 mL IVPB 50 mg Intravenous Q24H* Continuous Infusions: sodium chloride 0.9 % infusion 100 mL/hr at 04/25/17 2347 PRN and Respiratory Meds:acetaminophen Q6H PRN, alteplase PRN (Compliance Representative from Rx) , magnesium sulfate 4 g/50 mL PRN, milk of magnesia (CONC) Q6H PRN, potassium chloride PRN (Compliance Representative from Rx) OR potassium chloride SR PRN (Compliance Representative from Rx ), sodium chloride 0.9% irrigation bottle PRN Objective Vital Signs: Last Filed Vital Signs: 24 Hour Range BP: 108/54 (04/26 800) Temp: 36.5 C (97.7 F) (04/26 846) Pulse: 82 (04/26 846) Respirations: 18 PER MINUTE (04/26 846) SpO2: 98 % (04/26 846) O2 Delivery: Nasal Cannula (04/26 800) SpO2 Pulse: 74 (04/26 800) BP: (95-151)/(43-102) Temp: [36.4 C (97.6 F)-37.2 C (99 F)] Pulse: [73-93] Respirations: [13 PER MINUTE-28 PER MINUTE] SpO2: [93 %-100 %] O2 Delivery: Nasal Cannula Vitals: 04/24/17 0728 04/25/17 0215 04/25/17 1145 Weight: (!) 140.9 kg (310 lb 10.1 oz) (!) 142.4 kg (314 lb) (!) 142.9 kg (315 lb 0.6 oz) Intake/Output Summary: (Last 24 hours) Intake/Output Summary (Last 24 hours) at 04/26/17 0854 Last data filed at 04/26/17 0700 Gross per 24 hour Intake 2250 ml Output 1225 ml Net 1025 ml Physical Exam General Appearance: no acute distress Skin: warm, moist, no ulcers HEENT: unremarkable Neck Veins: neck veins are not distended Carotid Arteries: no bruits Chest Inspection: chest is normal in appearance Auscultation/Percussion: lungs clear to auscultation, no rales, rhonchi, or wheezing Cardiac Rhythm: Irregular rhythm Cardiac Auscultation: Normal S1 & S2, no S3 or S4, no rub Murmurs: no murmurs Extremities: Minimal lower extremity edema Abdominal Exam: soft, non-tender, no masses, bowel sounds normal Liver & Spleen: no organomegaly Neurologic Exam: neurological assessment grossly intact Lab Review Results for orders placed or performed during the hospital encounter of (from the past 24 hour(s)) POC GLUCOSE Collection Time: 04/25/17 10:17 AM Result Value Ref Range Glucose, POC 215 (H) 70 - 100 MG/DL BASIC METABOLIC PANEL Collection Time: 04/25/17 12:55 PM Result Value Ref Range Sodium 132 (L) 137 - 147 MMOL/L Potassium 4.5 3.5 - 5.1 MMOL/L Chloride 105 98 - 110 MMOL/L CO2 21 21 - 30 MMOL/L Anion Gap 6 3 - 12 Glucose 202 (H) 70 - 100 MG/DL Blood Urea Nitrogen 35 (H) 7 - 25 MG/DL Creatinine 1.75 (H) 0.4 - 1.00 MG/DL Calcium 8.0 (L) 8.5 - 10.6 MG/DL eGFR Non 30 (L) >60 mL/min eGFR 36 (L) >60 mL/min MAGNESIUM Collection Time: 04/25/17 12:55 PM Result Value Ref Range Magnesium 2.1 1.6 - 2.6 mg/dL PHOSPHORUS Collection Time: 04/25/17 12:55 PM Result Value Ref Range Phosphorus 3.7 2.0 - 4.0 MG/DL FIBRINOGEN Collection Time: 04/25/17 12:55 PM Result Value Ref Range Fibrinogen 442 (H) 200 - 400 MG/DL URIC ACID Collection Time: 04/25/17 12:55 PM Result Value Ref Range Uric Acid 4.2 2.0 - 7.0 MG/DL CBC AND DIFF Collection Time: 04/25/17 12:55 PM Result Value Ref Range White Blood Cells 78.3 (HH) 4.5 - 11.0 K/UL RBC 2.36 (L) 4.0 - 5.0 M/UL Hemoglobin 7.8 (L) 12.0 - 15.0 GM/DL Hematocrit 22.7 (L) 36 - 45 % MCV 96.5 80 - 100 FL MCH 33.3 26 - 34 PG MCHC 34.5 32.0 - 36.0 G/DL RDW 24.3 (H) 11 - 15 % Platelet Count 30 (L) 150 - 400 K/UL MPV 10.3 7 - 11 FL Segmented Neutrophils 10 (L) 41 - 77 % Bands 1 0 - 10 % Lymphocytes 18 (L) 24 - 44 % Monocytes 12 4 - 12 % Myelocyte 2 % Other Cells 57 % POLY PRESENT Ovalocyte PRESENT Platelet Estimate MKD DEC Absolute Neutrophil Count Manual 8.61 (H) 1.8 - 7.0 K/UL PTT (APTT) Collection Time: 04/25/17 12:55 PM Result Value Ref Range APTT 30.8 21.0 - 39.0 SEC PROTIME INR (PT) Collection Time: 04/25/17 12:55 PM Result Value Ref Range INR 1.9 (H) 0.8 - 1.2 D-DIMER Collection Time: 04/25/17 12:55 PM Result Value Ref Range D-Dimer 1112 (H) <230 ng/mL DDU LACTIC ACID (BG - RAPID LACTATE) Collection Time: 04/25/17 2:35 PM Result Value Ref Range Lactic Acid,BG 0.7 0.5 - 2.0 MMOL/L POC GLUCOSE Collection Time: 04/25/17 4:16 PM Result Value Ref Range Glucose, POC 203 (H) 70 - 100 MG/DL PHOSPHORUS Collection Time: 04/25/17 7:43 PM Result Value Ref Range Phosphorus 4.3 (H) 2.0 - 4.0 MG/DL FIBRINOGEN Collection Time: 04/25/17 7:43 PM Result Value Ref Range Fibrinogen 493 (H) 200 - 400 MG/DL URIC ACID Collection Time: 04/25/17 7:43 PM Result Value Ref Range Uric Acid 4.5 2.0 - 7.0 MG/DL PTT (APTT) Collection Time: 04/25/17 7:43 PM Result Value Ref Range APTT 29.7 21.0 - 39.0 SEC PROTIME INR (PT) Collection Time: 04/25/17 7:43 PM Result Value Ref Range INR 1.8 (H) 0.8 - 1.2 BASIC METABOLIC PANEL Collection Time: 04/25/17 7:43 PM Result Value Ref Range Sodium 134 (L) 137 - 147 MMOL/L Potassium 4.0 3.5 - 5.1 MMOL/L Chloride 106 98 - 110 MMOL/L CO2 22 21 - 30 MMOL/L Anion Gap 6 3 - 12 Glucose 275 (H) 70 - 100 MG/DL Blood Urea Nitrogen 39 (H) 7 - 25 MG/DL Creatinine 1.75 (H) 0.4 - 1.00 MG/DL Calcium 7.8 (L) 8.5 - 10.6 MG/DL eGFR Non 30 (L) >60 mL/min eGFR 36 (L) >60 mL/min CBC AND DIFF Collection Time: 04/25/17 7:43 PM Result Value Ref Range White Blood Cells 56.3 (HH) 4.5 - 11.0 K/UL RBC 2.18 (L) 4.0 - 5.0 M/UL Hemoglobin 7.2 (L) 12.0 - 15.0 GM/DL Hematocrit 21.2 (L) 36 - 45 % MCV 97.3 80 - 100 FL MCH 33.0 26 - 34 PG MCHC 34.0 32.0 - 36.0 G/DL RDW 24.0 (H) 11 - 15 % Platelet Count 25 (L) 150 - 400 K/UL MPV 10.6 7 - 11 FL Nucleated RBCs 2 K/UL Segmented Neutrophils 12 (L) 41 - 77 % Lymphocytes 22 (L) 24 - 44 % Monocytes 19 (H) 4 - 12 % Myelocyte 1 % Other Cells 46 % ANISO PRESENT Ovalocyte PRESENT Platelet Estimate MKD DEC Absolute Neutrophil Count Manual 6.76 1.8 - 7.0 K/UL POC GLUCOSE Collection Time: 04/25/17 7:58 PM Result Value Ref Range Glucose, POC 286 (H) 70 - 100 MG/DL IONIZED CALCIUM Collection Time: 04/25/17 9:57 PM Result Value Ref Range Ionized Calcium 1.08 1.0 - 1.3 MMOL/L POC GLUCOSE Collection Time: 04/26/17 4:28 AM Result Value Ref Range Glucose, POC 194 (H) 70 - 100 MG/DL LDH-LACTATE DEHYDROGENASE Collection Time: 04/26/17 4:30 AM Result Value Ref Range Lactate Dehydrogenase 747 (H) 100 - 210 U/L COMPREHENSIVE METABOLIC PANEL Collection Time: 04/26/17 4:30 AM Result Value Ref Range Sodium 136 (L) 137 - 147 MMOL/L Potassium 4.1 3.5 - 5.1 MMOL/L Chloride 107 98 - 110 MMOL/L Glucose 173 (H) 70 - 100 MG/DL Blood Urea Nitrogen 40 (H) 7 - 25 MG/DL Creatinine 1.50 (H) 0.4 - 1.00 MG/DL Calcium 8.0 (L) 8.5 - 10.6 MG/DL Total Protein 5.8 (L) 6.0 - 8.0 G/DL Total Bilirubin 0.6 0.3 - 1.2 MG/DL Albumin 2.4 (L) 3.5 - 5.0 G/DL Alk Phosphatase 36 25 - 110 U/L AST (SGOT) 15 7 - 40 U/L CO2 23 21 - 30 MMOL/L ALT (SGPT) 5 (L) 7 - 56 U/L Anion Gap 6 3 - 12 eGFR Non 36 (L) >60 mL/min eGFR 43 (L) >60 mL/min MAGNESIUM Collection Time: 04/26/17 4:30 AM Result Value Ref Range Magnesium 2.0 1.6 - 2.6 mg/dL PHOSPHORUS Collection Time: 04/26/17 4:30 AM Result Value Ref Range Phosphorus 4.0 2.0 - 4.0 MG/DL FIBRINOGEN Collection Time: 04/26/17 4:30 AM Result Value Ref Range Fibrinogen 482 (H) 200 - 400 MG/DL URIC ACID Collection Time: 04/26/17 4:30 AM Result Value Ref Range Uric Acid 4.8 2.0 - 7.0 MG/DL PTT (APTT) Collection Time: 04/26/17 4:30 AM Result Value Ref Range APTT 24.9 21.0 - 39.0 SEC PROTIME INR (PT) Collection Time: 04/26/17 4:30 AM Result Value Ref Range INR 1.6 (H) 0.8 - 1.2 CBC AND DIFF Collection Time: 04/26/17 4:30 AM Result Value Ref Range White Blood Cells 49.5 (H) 4.5 - 11.0 K/UL RBC 2.06 (L) 4.0 - 5.0 M/UL Hemoglobin 6.9 (L) 12.0 - 15.0 GM/DL Hematocrit 20.3 (L) 36 - 45 % MCV 98.5 80 - 100 FL MCH 33.3 26 - 34 PG MCHC 33.8 32.0 - 36.0 G/DL RDW 24.7 (H) 11 - 15 % Platelet Count 21 (LL) 150 - 400 K/UL MPV 9.8 7 - 11 FL Segmented Neutrophils 8 (L) 41 - 77 % Bands 4 0 - 10 % Lymphocytes 9 (L) 24 - 44 % Monocytes 31 (H) 4 - 12 % Myelocyte 3 % Other Cells 45 % ANISO PRESENT Ovalocyte PRESENT Absolute Neutrophil Count Manual 5.94 1.8 - 7.0 K/UL POC GLUCOSE Collection Time: 04/26/17 7:01 AM Result Value Ref Range Glucose, POC 185 (H) 70 - 100 MG/DL Telemetry: Atrial Fib rate < 100 Alex Hemphill MD, FACC * Bruno Duval MD - 04/26/2017 8:49 AM CDT Formatting of this note may be different from the original. 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 Flow cytometry 38% blasts- positive for CD13, CD33, CD38, CD117, HLA-DR and cytoplasmic myeloperoxidase. They are negative for CD11b , CD11c, CD14, CD34, CD64, TdT, B- and T-cell markers. - Patient on DTI- apixaban for atrial fibrillation, now on hold - Plan bone marrow biopsy on 04/26 in IR. - Obtain 2 D echo - normal, EF-60%. Cardiology consulted. - Start hydroxyurea 1 gram BID. - At present she does not show features of leucostasis - Monitor DIC and TLS labs every 8 hours WBC decreasing on Hydrea, BMBx today. Will not start chemotherapy until final diagnosis confirmed on BMBx, likely 04/28. Heme: - Anemia and thrombocytopenia due to underlying AML - Leucucytosis- will start hydroxyurea as above. Monitor for TLS- she has CKD and DIC. - On anticoagulation with apixaban for Atrial fibrillation, will hold for now with thrombocytopenia - Anticoagulation with lovenox contraindicated due to thrombocytopenia, SCD's when on bed FEN/Renal: - Has CKD stage 3, renal function- creatinine 1.82, all medications renally dosed. - Appreciate renal recommendations - Uric acid 8.1, received 1 dose of rasburicase - Continue allopurinol - Monitor electrolytes, will be high goal replacement with h/o atrial fibrillation - Close monitoring of fluid status ID: - Presents with UTI and fever - Had persistent fevers, started on cefepime and vancomycin. With renal dysfunction stop vancomycin and start daptomycin - Blood cultures and urine cultures pending - Had urinary catheter in place, after discussions now catheter is removed on . - On prophylaxis with micafungin and acyclovir - Continue IV fluids/ hydration. Monitor closely GI: - No nausea, vomiting or diarrhea - Low albumin. Liver functions normal - Obese, weight 140.9 kgs Endo: - Has type II DM, on glimiperide has been discontinued on admission - Had persistent low blood sugars, now blood sugars better - Endocrinology consultation obtained and appreciate recommendations CVS: - H/o atrial fibrillation , rate controlled. She is on atenolol, diltiazem furosemide - Mild moderate - Will hold apixaban atenolol diltiazem - Cardiology opinion appreciated, 2 d Echo- normal EF 60%. Psych/Social: Pleasant, no issues - On alprazolam for anxiety, currently on hold - Lives in [facility], , currently on disability, son lives in [facility] Subjective: Giselle Moraes is a 56 y.o. female with no acute complaints this morning. Has felt fatigued and ELIZABETH but otherwise no pain or other issues. Review of Systems: Constitutional: + fatigue, fevers, chills, sweats/diaphoresis, maliase, anorexia , appetite change, weight change (loss) HEENT: Negative. No ear/ nose problems. Bleeding of lips due to dryness. No gum bleeding Respiratory: +cough, sputum, mild SOB Cardiovascular: Negative for chest pain, chest pressure, palpitations, edema in extremeties Gastrointestional: diarrhea intermittent. No abdominal pain/ nausea or vomiting Gernitourinary: + dysuria, no hematuria Musculoskeletal:Negative Skin: Negative Psych: + anxiety Objective: Medications: Scheduled Meds: acyclovir (ZOVIRAX) tablet 400 mg 400 mg Oral BID allopurinol (ZYLOPRIM) tablet 300 mg 300 mg Oral QDAY cefepime (MAXIPIME) 2 g/100 ml iso-osmotic IVPB 2 g Intravenous Q12H* diltiazem CD (cardIZEM CD) capsule 240 mg 240 mg Oral QDAY hydroxyurea (HYDREA) capsule 1,000 mg 1,000 mg Oral BID insulin aspart (NOVOLOG FLEXPEN) injection PEN 0-7 Units 0-7 Units Subcutaneous ACHS micafungin (MYCAMINE) 50 mg in sodium chloride 0.9% (NS) 105 mL IVPB 50 mg Intravenous Q24H* polyethylene glycol 3350 (MIRALAX) packet 17 g 1 packet Oral QDAY senna (SENOKOT) tablet 1 tablet 1 tablet Oral BID Continuous Infusions: lactated ringers infusion Stopped (04/26/17 1128) PRN and Respiratory Meds:acetaminophen Q6H PRN, alteplase PRN (Compliance Representative from Rx) , magnesium sulfate 4 g/50 mL PRN, milk of magnesia (CONC) Q6H PRN, saliva, synthetic PRN, sodium chloride 0.9% irrigation bottle PRN Vital Signs: Last Filed Vital Signs: 24 Hour Range BP: 160/85 (04/26 1400) Temp: 36.8 C (98.2 F) (04/26 1200) Pulse: 66 (04/26 1400) Respirations: 22 PER MINUTE (04/26 1400) SpO2: 94 % (04/26 1319) O2 Delivery: None (Room Air) (04/26 1319) SpO2 Pulse: 63 (04/26 1319) BP: (94-160)/(43-93) Temp: [36.4 C (97.6 F)-36.9 C (98.4 F)] Pulse: [63-87] Respirations: [13 PER MINUTE-25 PER MINUTE] SpO2: [92 %-100 %] O2 Delivery: None (Room Air) Intensity Pain Scale 0-10 (Pain 1): (not recorded) Vitals: 04/24/17 0728 04/25/17 0215 04/25/17 1145 Weight: (!) 140.9 kg (310 lb 10.1 oz) (!) 142.4 kg (314 lb) (!) 142.9 kg (315 lb 0.6 oz) Intake/Output Summary: (Last 24 hours) Intake/Output Summary (Last 24 hours) at 04/26/17 1528 Last data filed at 04/26/17 1500 Gross per 24 hour Intake 1870 ml Output 1380 ml Net 490 ml Physical Exam: Performance Status (Karnofsky): 40% Disabled, requires special care and assistance General: awake & oriented, no acute distress, appears stated age, Morbidly obese HENT: normocephalic, atraumatic, non-icteric, clear conjunctivae, no adenopathy. Mild bleeding/ clotted blood onlips, no oral bleeding or gum bleeding Eyes: Conjunctuvae clear. PERRL, EOMs intact. CV: S1, S2, regular rhythm and rate, no murmur, click, rub Lungs: clear to ausculation bilaterally, non-labored Abdomen: Obese abdomen, soft, non-tender, non-distended, normo-active bowel sounds. Has indwelling catheter Extremities: no edema, cyanosis, pulses Skin: Warm & dry. Skin color, turgor normal. No rahses or lesions Neuro: drowsy but arousable and obeys all command, oriented to person, place and time. No focal deficits; normal muscle strength- normal Psych: Normal mood and affect. Judgment and thought content normal. Ventilator/Respiratory Support: On nasal cannula 2 liters Lab Review: Results for orders placed or performed during the hospital encounter of (from the past 48 hour(s)) CBC AND DIFF Collection Time: 04/24/17 4:00 PM # # Low-High White Blood Cells 65.6 (HH) 4.5 - 11.0 K/UL RBC 1.81 (L) 4.0 - 5.0 M/UL Hemoglobin 6.4 (L) 12.0 - 15.0 GM/DL Hematocrit 18.7 (L) 36 - 45 % MCV 103.4 (H) 80 - 100 FL MCH 35.4 (H) 26 - 34 PG MCHC 34.3 32.0 - 36.0 G/DL RDW 19.5 (H) 11 - 15 % Platelet Count 29 (L) 150 - 400 K/UL MPV 10.0 7 - 11 FL Nucleated RBCs 1 K/UL Segmented Neutrophils 13 (L) 41 - 77 % Bands 7 0 - 10 % Lymphocytes 7 (L) 24 - 44 % Monocytes 8 4 - 12 % Eosinophil 1 0 - 5 % Metamyelocyte 2 % Blast 62 % ANISO PRESENT POIK PRESENT POLY PRESENT Ovalocyte PRESENT Teardrop PRESENT Platelet Estimate MKD DEC Absolute Neutrophil Count Manual 13.12 (H) 1.8 - 7.0 K/UL FIBRINOGEN Collection Time: 04/24/17 4:00 PM # # Low-High Fibrinogen 555 (H) 200 - 400 MG/DL MAGNESIUM Collection Time: 04/24/17 4:00 PM # # Low-High Magnesium 1.9 1.6 - 2.6 mg/dL HEMOGLOBIN A1C Collection Time: 04/24/17 4:00 PM # # Low-High Hemoglobin A1C 5.2 4.0 - 6.0 % POC GLUCOSE Collection Time: 04/24/17 5:37 PM # # Low-High Glucose, POC 123 (H) 70 - 100 MG/DL BLOOD TYPE CONFIRMATION - ORDER ONLY IF REQUESTED BY LAB Collection Time: 04/24/17 5:52 PM # # Low-High ABO/RH(D) A POS URIC ACID Collection Time: 04/24/17 6:00 PM # # Low-High Uric Acid 4.4 2.0 - 7.0 MG/DL PROTIME INR (PT) Collection Time: 04/24/17 6:00 PM # # Low-High INR 2.0 (H) 0.8 - 1.2 PTT (APTT) Collection Time: 04/24/17 6:00 PM # # Low-High APTT 30.2 21.0 - 39.0 SEC PHOSPHORUS Collection Time: 04/24/17 6:00 PM # # Low-High Phosphorus 3.4 2.0 - 4.0 MG/DL URINALYSIS DIPSTICK Collection Time: 04/24/17 9:07 PM # # Low-High Color,UA ENE Turbidity,UA 2+ (A) CLEAR-CLEAR Specific [place]-Urine 1.015 1.003 - 1.035 pH,UA 5.0 5.0 - 8.0 Protein,UA 2+ (A) NEG-NEG Glucose,UA NEG NEG-NEG Ketones,UA TRACE (A) NEG-NEG Bilirubin,UA NEG NEG-NEG Blood,UA 2+ (A) NEG-NEG Urobilinogen,UA NORMAL NORM-NORMAL Nitrite,UA NEG NEG-NEG Leukocytes,UA 3+ (A) NEG-NEG Urine Ascorbic Acid, UA POS (A) NEG-NEG URINALYSIS, MICROSCOPIC Collection Time: 04/24/17 9:07 PM # # Low-High WBCs,UA PACKED 0 - 2 /HPF RBCs,UA PACKED 0 - 3 /HPF MucousUA TRACE Bacteria,UA MODERATE (A) NEG-NEG WBC Clumps PRESENT Squamous Epithelial Cells 10-20 0 - 5 CULTURE-URINE W/SENSITIVITY Collection Time: 04/24/17 9:07 PM # # Low-High Battery Name URINE CULTURE Specimen Description URINE, CLEAN CATCH Special Requests NONE Culture <10,000 organisms/ml CONTAMINANT Report Status FINAL 04/26/2017 POC GLUCOSE Collection Time: 04/24/17 9:36 PM # # Low-High Glucose, POC 287 (H) 70 - 100 MG/DL POC GLUCOSE Collection Time: 04/25/17 1:43 AM # # Low-High Glucose, POC 295 (H) 70 - 100 MG/DL URIC ACID Collection Time: 04/25/17 5:15 AM # # Low-High Uric Acid 4.4 2.0 - 7.0 MG/DL PROTIME INR (PT) Collection Time: 04/25/17 5:15 AM # # Low-High INR 2.0 (H) 0.8 - 1.2 PTT (APTT) Collection Time: 04/25/17 5:15 AM # # Low-High APTT 28.8 21.0 - 39.0 SEC PHOSPHORUS Collection Time: 04/25/17 5:15 AM # # Low-High Phosphorus 3.9 2.0 - 4.0 MG/DL FIBRINOGEN Collection Time: 04/25/17 5:15 AM # # Low-High Fibrinogen 601 (H) 200 - 400 MG/DL POC GLUCOSE Collection Time: 04/25/17 5:25 AM # # Low-High Glucose, POC 267 (H) 70 - 100 MG/DL LDH-LACTATE DEHYDROGENASE Collection Time: 04/25/17 7:34 AM # # Low-High Lactate Dehydrogenase 734 (H) 100 - 210 U/L MAGNESIUM Collection Time: 04/25/17 7:34 AM # # Low-High Magnesium 2.1 1.6 - 2.6 mg/dL COMPREHENSIVE METABOLIC PANEL Collection Time: 04/25/17 7:34 AM # # Low-High Sodium 131 (L) 137 - 147 MMOL/L Potassium 4.7 3.5 - 5.1 MMOL/L Chloride 104 98 - 110 MMOL/L Glucose 225 (H) 70 - 100 MG/DL Blood Urea Nitrogen 32 (H) 7 - 25 MG/DL Creatinine 1.82 (H) 0.4 - 1.00 MG/DL Calcium 7.8 (L) 8.5 - 10.6 MG/DL Total Protein 5.8 (L) 6.0 - 8.0 G/DL Total Bilirubin 0.7 0.3 - 1.2 MG/DL Albumin 2.5 (L) 3.5 - 5.0 G/DL Alk Phosphatase 33 25 - 110 U/L AST (SGOT) 19 7 - 40 U/L CO2 20 (L) 21 - 30 MMOL/L ALT (SGPT) 6 (L) 7 - 56 U/L Anion Gap 7 3 - 12 eGFR Non 29 (L) >60 mL/min eGFR 35 (L) >60 mL/min CBC AND DIFF Collection Time: 04/25/17 7:34 AM # # Low-High White Blood Cells 77.1 (HH) 4.5 - 11.0 K/UL RBC 2.01 (L) 4.0 - 5.0 M/UL Hemoglobin 6.9 (L) 12.0 - 15.0 GM/DL Hematocrit 19.9 (L) 36 - 45 % MCV 99.2 80 - 100 FL MCH 34.4 (H) 26 - 34 PG MCHC 34.7 32.0 - 36.0 G/DL RDW 25.2 (H) 11 - 15 % Platelet Count 28 (L) 150 - 400 K/UL MPV 9.6 7 - 11 FL Nucleated RBCs 1 K/UL Segmented Neutrophils 8 (L) 41 - 77 % Bands 5 0 - 10 % Lymphocytes 9 (L) 24 - 44 % Monocytes 13 (H) 4 - 12 % Metamyelocyte 1 % Myelocyte 4 % Other Cells 60 % POLY PRESENT Ovalocyte PRESENT Platelet Estimate MKD DEC Absolute Neutrophil Count Manual 10.03 (H) 1.8 - 7.0 K/UL FIBRINOGEN Collection Time: 04/25/17 7:34 AM # # Low-High Fibrinogen 542 (H) 200 - 400 MG/DL POC GLUCOSE Collection Time: 04/25/17 8:21 AM # # Low-High Glucose, POC 226 (H) 70 - 100 MG/DL POC GLUCOSE Collection Time: 04/25/17 10:17 AM # # Low-High Glucose, POC 215 (H) 70 - 100 MG/DL BASIC METABOLIC PANEL Collection Time: 04/25/17 12:55 PM # # Low-High Sodium 132 (L) 137 - 147 MMOL/L Potassium 4.5 3.5 - 5.1 MMOL/L Chloride 105 98 - 110 MMOL/L CO2 21 21 - 30 MMOL/L Anion Gap 6 3 - 12 Glucose 202 (H) 70 - 100 MG/DL Blood Urea Nitrogen 35 (H) 7 - 25 MG/DL Creatinine 1.75 (H) 0.4 - 1.00 MG/DL Calcium 8.0 (L) 8.5 - 10.6 MG/DL eGFR Non 30 (L) >60 mL/min eGFR 36 (L) >60 mL/min MAGNESIUM Collection Time: 04/25/17 12:55 PM # # Low-High Magnesium 2.1 1.6 - 2.6 mg/dL PHOSPHORUS Collection Time: 04/25/17 12:55 PM # # Low-High Phosphorus 3.7 2.0 - 4.0 MG/DL FIBRINOGEN Collection Time: 04/25/17 12:55 PM # # Low-High Fibrinogen 442 (H) 200 - 400 MG/DL URIC ACID Collection Time: 04/25/17 12:55 PM # # Low-High Uric Acid 4.2 2.0 - 7.0 MG/DL CBC AND DIFF Collection Time: 04/25/17 12:55 PM # # Low-High White Blood Cells 78.3 (HH) 4.5 - 11.0 K/UL RBC 2.36 (L) 4.0 - 5.0 M/UL Hemoglobin 7.8 (L) 12.0 - 15.0 GM/DL Hematocrit 22.7 (L) 36 - 45 % MCV 96.5 80 - 100 FL MCH 33.3 26 - 34 PG MCHC 34.5 32.0 - 36.0 G/DL RDW 24.3 (H) 11 - 15 % Platelet Count 30 (L) 150 - 400 K/UL MPV 10.3 7 - 11 FL Segmented Neutrophils 10 (L) 41 - 77 % Bands 1 0 - 10 % Lymphocytes 18 (L) 24 - 44 % Monocytes 12 4 - 12 % Myelocyte 2 % Other Cells 57 % POLY PRESENT Ovalocyte PRESENT Platelet Estimate MKD DEC Absolute Neutrophil Count Manual 8.61 (H) 1.8 - 7.0 K/UL PTT (APTT) Collection Time: 04/25/17 12:55 PM # # Low-High APTT 30.8 21.0 - 39.0 SEC PROTIME INR (PT) Collection Time: 04/25/17 12:55 PM # # Low-High INR 1.9 (H) 0.8 - 1.2 D-DIMER Collection Time: 04/25/17 12:55 PM # # Low-High D-Dimer 1112 (H) <230 ng/mL DDU LACTIC ACID (BG - RAPID LACTATE) Collection Time: 04/25/17 2:35 PM # # Low-High Lactic Acid,BG 0.7 0.5 - 2.0 MMOL/L POC GLUCOSE Collection Time: 04/25/17 4:16 PM # # Low-High Glucose, POC 203 (H) 70 - 100 MG/DL PHOSPHORUS Collection Time: 04/25/17 7:43 PM # # Low-High Phosphorus 4.3 (H) 2.0 - 4.0 MG/DL FIBRINOGEN Collection Time: 04/25/17 7:43 PM # # Low-High Fibrinogen 493 (H) 200 - 400 MG/DL URIC ACID Collection Time: 04/25/17 7:43 PM # # Low-High Uric Acid 4.5 2.0 - 7.0 MG/DL PTT (APTT) Collection Time: 04/25/17 7:43 PM # # Low-High APTT 29.7 21.0 - 39.0 SEC PROTIME INR (PT) Collection Time: 04/25/17 7:43 PM # # Low-High INR 1.8 (H) 0.8 - 1.2 BASIC METABOLIC PANEL Collection Time: 04/25/17 7:43 PM # # Low-High Sodium 134 (L) 137 - 147 MMOL/L Potassium 4.0 3.5 - 5.1 MMOL/L Chloride 106 98 - 110 MMOL/L CO2 22 21 - 30 MMOL/L Anion Gap 6 3 - 12 Glucose 275 (H) 70 - 100 MG/DL Blood Urea Nitrogen 39 (H) 7 - 25 MG/DL Creatinine 1.75 (H) 0.4 - 1.00 MG/DL Calcium 7.8 (L) 8.5 - 10.6 MG/DL eGFR Non 30 (L) >60 mL/min eGFR 36 (L) >60 mL/min CBC AND DIFF Collection Time: 04/25/17 7:43 PM # # Low-High White Blood Cells 56.3 (HH) 4.5 - 11.0 K/UL RBC 2.18 (L) 4.0 - 5.0 M/UL Hemoglobin 7.2 (L) 12.0 - 15.0 GM/DL Hematocrit 21.2 (L) 36 - 45 % MCV 97.3 80 - 100 FL MCH 33.0 26 - 34 PG MCHC 34.0 32.0 - 36.0 G/DL RDW 24.0 (H) 11 - 15 % Platelet Count 25 (L) 150 - 400 K/UL MPV 10.6 7 - 11 FL Nucleated RBCs 2 K/UL Segmented Neutrophils 12 (L) 41 - 77 % Lymphocytes 22 (L) 24 - 44 % Monocytes 19 (H) 4 - 12 % Myelocyte 1 % Other Cells 46 % ANISO PRESENT Ovalocyte PRESENT Platelet Estimate MKD DEC Absolute Neutrophil Count Manual 6.76 1.8 - 7.0 K/UL POC GLUCOSE Collection Time: 04/25/17 7:58 PM # # Low-High Glucose, POC 286 (H) 70 - 100 MG/DL IONIZED CALCIUM Collection Time: 04/25/17 9:57 PM # # Low-High Ionized Calcium 1.08 1.0 - 1.3 MMOL/L CULTURE-RESP,LOWER W/SENSITIVITY Collection Time: 04/26/17 12:25 AM # # Low-High Battery Name LOWER RESP CULTURE Specimen Description SPUTUM Special Requests NONE Direct Gram Stain LESS THAN 10/LPF NEUTROPHILS 10-25/LPF SQUAMOUS EPITHELIAL CELLS MANY MIXED BACTERIA Culture Report Status GRAM STAIN Collection Time: 04/26/17 12:25 AM # # Low-High Battery Name GRAM STAIN Specimen Description SPUTUM Special Requests NONE Gram Stain LESS THAN 10/LPF NEUTROPHILS 10-25/LPF SQUAMOUS EPITHELIAL CELLS MANY MIXED BACTERIA Report Status FINAL 04/26/2017 POC GLUCOSE Collection Time: 04/26/17 4:28 AM # # Low-High Glucose, POC 194 (H) 70 - 100 MG/DL LDH-LACTATE DEHYDROGENASE Collection Time: 04/26/17 4:30 AM # # Low-High Lactate Dehydrogenase 747 (H) 100 - 210 U/L COMPREHENSIVE METABOLIC PANEL Collection Time: 04/26/17 4:30 AM # # Low-High Sodium 136 (L) 137 - 147 MMOL/L Potassium 4.1 3.5 - 5.1 MMOL/L Chloride 107 98 - 110 MMOL/L Glucose 173 (H) 70 - 100 MG/DL Blood Urea Nitrogen 40 (H) 7 - 25 MG/DL Creatinine 1.50 (H) 0.4 - 1.00 MG/DL Calcium 8.0 (L) 8.5 - 10.6 MG/DL Total Protein 5.8 (L) 6.0 - 8.0 G/DL Total Bilirubin 0.6 0.3 - 1.2 MG/DL Albumin 2.4 (L) 3.5 - 5.0 G/DL Alk Phosphatase 36 25 - 110 U/L AST (SGOT) 15 7 - 40 U/L CO2 23 21 - 30 MMOL/L ALT (SGPT) 5 (L) 7 - 56 U/L Anion Gap 6 3 - 12 eGFR Non 36 (L) >60 mL/min eGFR 43 (L) >60 mL/min MAGNESIUM Collection Time: 04/26/17 4:30 AM # # Low-High Magnesium 2.0 1.6 - 2.6 mg/dL PHOSPHORUS Collection Time: 04/26/17 4:30 AM # # Low-High Phosphorus 4.0 2.0 - 4.0 MG/DL FIBRINOGEN Collection Time: 04/26/17 4:30 AM # # Low-High Fibrinogen 482 (H) 200 - 400 MG/DL URIC ACID Collection Time: 04/26/17 4:30 AM # # Low-High Uric Acid 4.8 2.0 - 7.0 MG/DL PTT (APTT) Collection Time: 04/26/17 4:30 AM # # Low-High APTT 24.9 21.0 - 39.0 SEC PROTIME INR (PT) Collection Time: 04/26/17 4:30 AM # # Low-High INR 1.6 (H) 0.8 - 1.2 CBC AND DIFF Collection Time: 04/26/17 4:30 AM # # Low-High White Blood Cells 49.5 (H) 4.5 - 11.0 K/UL RBC 2.06 (L) 4.0 - 5.0 M/UL Hemoglobin 6.9 (L) 12.0 - 15.0 GM/DL Hematocrit 20.3 (L) 36 - 45 % MCV 98.5 80 - 100 FL MCH 33.3 26 - 34 PG MCHC 33.8 32.0 - 36.0 G/DL RDW 24.7 (H) 11 - 15 % Platelet Count 21 (LL) 150 - 400 K/UL MPV 9.8 7 - 11 FL Segmented Neutrophils 8 (L) 41 - 77 % Bands 4 0 - 10 % Lymphocytes 9 (L) 24 - 44 % Monocytes 31 (H) 4 - 12 % Myelocyte 3 % Other Cells 45 % ANISO PRESENT Ovalocyte PRESENT Absolute Neutrophil Count Manual 5.94 1.8 - 7.0 K/UL POC GLUCOSE Collection Time: 04/26/17 7:01 AM # # Low-High Glucose, POC 185 (H) 70 - 100 MG/DL POC GLUCOSE Collection Time: 04/26/17 11:56 AM # # Low-High Glucose, POC 174 (H) 70 - 100 MG/DL PHOSPHORUS Collection Time: 04/26/17 11:57 AM # # Low-High Phosphorus 3.5 2.0 - 4.0 MG/DL FIBRINOGEN Collection Time: 04/26/17 11:57 AM # # Low-High Fibrinogen 472 (H) 200 - 400 MG/DL URIC ACID Collection Time: 04/26/17 11:57 AM # # Low-High Uric Acid 4.7 2.0 - 7.0 MG/DL PTT (APTT) Collection Time: 04/26/17 11:57 AM # # Low-High APTT 28.5 21.0 - 39.0 SEC PROTIME INR (PT) Collection Time: 04/26/17 11:57 AM # # Low-High INR 1.6 (H) 0.8 - 1.2 BASIC METABOLIC PANEL Collection Time: 04/26/17 11:57 AM # # Low-High Sodium 136 (L) 137 - 147 MMOL/L Potassium 3.9 3.5 - 5.1 MMOL/L Chloride 109 98 - 110 MMOL/L CO2 22 21 - 30 MMOL/L Anion Gap 5 3 - 12 Glucose 168 (H) 70 - 100 MG/DL Blood Urea Nitrogen 41 (H) 7 - 25 MG/DL Creatinine 1.32 (H) 0.4 - 1.00 MG/DL Calcium 7.9 (L) 8.5 - 10.6 MG/DL eGFR Non 41 (L) >60 mL/min eGFR 50 (L) >60 mL/min CBC AND DIFF Collection Time: 04/26/17 11:57 AM # # Low-High White Blood Cells 51.3 (HH) 4.5 - 11.0 K/UL RBC 1.91 (L) 4.0 - 5.0 M/UL Hemoglobin 6.2 (L) 12.0 - 15.0 GM/DL Hematocrit 17.7 (L) 36 - 45 % MCV 92.7 80 - 100 FL MCH 32.2 26 - 34 PG MCHC 34.8 32.0 - 36.0 G/DL RDW 24.8 (H) 11 - 15 % Platelet Count 18 (LL) 150 - 400 K/UL MPV 10.2 7 - 11 FL Segmented Neutrophils 11 (L) 41 - 77 % Lymphocytes 12 (L) 24 - 44 % Monocytes 33 (H) 4 - 12 % Metamyelocyte 1 % Blast 43 % ANISO PRESENT POIK PRESENT POLY PRESENT Platelet Estimate MKD DEC Absolute Neutrophil Count Manual 5.64 1.8 - 7.0 K/UL PROCALCITONIN Collection Time: 04/26/17 11:57 AM # # Low-High Procalcitonin 0.51 (H) <0.10 NG/ML BNP (B-TYPE NATRIURETIC PEPTI) Collection Time: 04/26/17 11:57 AM # # Low-High B Type Natriuretic Peptide 168.0 (H) 0 - 100 PG/ML Radiology Review: Pertinent radiology reviewed. Bruno Duval MD Today's visit was prolonged due to additional time in afternoon spent discussing the plan of care during a family meeting. Visit Start/Stop Time: 1400 /1430; Total: 30 min. Bruno Duval MD * Irena Aguilera RN - 04/26/2017 8:00 AM CDT 0800 Report received, bedside safety check and assessment complete. Monitor and alarms verified. VSS per pt flow sheet. Pt is AOx4, moving all extremities and following commands. No complaints of pain at this time. Bed is locked in lowest position, call light within reach. Please see flow sheet for complete assessment. * Irena Aguilera RN - 04/26/2017 8:00 AM CDT . Admission skin assessment completed by: Irena Monterroso RN Pressure Injury Present: No 1. Occiput: No 2. Ear: No 3. Scapula: No 4. Spinous Process: No 5. Shoulder: No 6. Elbow: No 7. Iliac Crest: No 8. Sacrum/Coccyx: No 9. Ischial Tuberosity: No 10. Trochanter: No 11. Knee: No 12. Malleolus: No 13. Heel: No 14. Toes: No See Doc Flowsheet for additional wound details. INTERVENTIONS: q 2 hour repositioning and q shift/ongoing skin assessment * Kriss Estrada RN - 04/26/2017 5:56 AM CDT Formatting of this note may be different from the original. RN reported the following labs to the MD weight loss sales consultant: Results for GISELLE MORAES ( ) as of 04/26/2017 05:51 Ref. Range 04/26/2017 04:30 Hemoglobin Latest Ref Range: 12.0 - 15.0 GM/DL 6.9 (L) No new orders at this time, will continue to monitor. * Fiona Vasquez RN - 04/25/2017 2:05 PM CDT Will need to change dressing today and as needed due to moderate bleeding at PICC line insertion sight. VSS, report called to bedside nurse, denies questions at this time. * Fiona Vasquez RN - 04/25/2017 1:42 PM CDT Sedation physician present in room. Recent vitals and patient condition reviewed between sedating physician and nurse. Reassessment completed. Determination made to proceed with planned sedation. * Linh Lewis MBBS - 04/25/2017 12:43 PM CDT Formatting of this note may be different from the original. 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 Hypoglycemia is recurrent in spite of D5 normal saline drip. Recurrent UTI Acute leukemia A. fib CKD stage III Recommendations: Hypoglycemia has resolved. It appears that D5 drip was discontinued last night. Patient received 3 doses of octreotide so far. We will discontinue octreotide. Blood glucose is in 200s this morning. We will start low-dose correction factor before meals and bedtime. Patient is currently n.p.o. We will reassess tomorrow. Thanks for the consult, we will continue to follow. Patient was seen and discussed with Dr. Patel. History of Present Illness Giselle Moraes is a 56 y.o. female with past medical history of A. fib, type 2 diabetes, CKD stage III, UTI, anxiety was admitted for suspicion for acute leukemia. Endocrinology was consulted for recurrent hypoglycemia. Patient is still very fatigued. She is n.p.o. for PICC line placement. No more hypoglycemia. Estimated Creatinine Clearance: 50.1 mL/min (based on Cr of 1.82). 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 No pertinent family history. Allergies Allergies Allergen Reactions Ciprofloxacin SEE COMMENTS Per Nephrology doctors. Levofloxacin SEE COMMENTS Per nephrology doctors. Nsaids (Non-Steroidal Anti-Inflammatory Drug) SEE COMMENTS Per nephrology doctors. Bactrim [Sulfamethoxazole-Trimethoprim] SEE COMMENTS Per Nephrology Doctors. Contrast Dye Iv, Iodine Containing [Iodinated Contrast- Oral And Iv Dye] SEE COMMENTS Per nephrology doctors. Review of Systems A comprehensive 14-point review of systems was negative with exception of: Fatigue, feeling cold, shaky Medications Scheduled Meds: acyclovir (ZOVIRAX) tablet 400 mg 400 mg Oral BID [START ON 04/26/2017] allopurinol (ZYLOPRIM) tablet 300 mg 300 mg Oral QDAY atenolol (TENORMIN) tablet 75 mg 75 mg Oral BID cefepime (MAXIPIME) 2 g/100 ml iso-osmotic IVPB 2 g Intravenous Q12H* DAPTOmycin (CUBICIN) 855 mg in sodium chloride 0.9% (NS) IVPB 6 mg/kg Intravenous Q24H* diltiazem CD (cardIZEM CD) capsule 240 mg 240 mg Oral QDAY hydroxyurea (HYDREA) capsule 1,000 mg 1,000 mg Oral BID insulin aspart (NOVOLOG FLEXPEN) injection PEN 0-7 Units 0-7 Units Subcutaneous ACHS micafungin (MYCAMINE) 50 mg in sodium chloride 0.9% (NS) 105 mL IVPB 50 mg Intravenous Q24H* Continuous Infusions: sodium chloride 0.9 % infusion 100 mL/hr at 04/25/17 0515 PRN and Respiratory Meds:acetaminophen Q6H PRN, alteplase PRN (Compliance Representative from Rx) , magnesium sulfate 4 g/50 mL PRN, milk of magnesia (CONC) Q6H PRN, potassium chloride PRN (Compliance Representative from Rx) OR potassium chloride SR PRN (Compliance Representative from Rx ), sodium chloride 0.9% irrigation bottle PRN Physical Examination Vital Signs: Last Vital Signs: 24 Hour Range BP: 105/53 (04/25 1009) Temp: 37.1 C (98.8 F) (04/25 114) Pulse: 77 (04/25 1200) Respirations: 22 PER MINUTE (04/25 1200) SpO2: 96 % (04/25 114) O2 Delivery: Nasal Cannula (04/25 1200) BP: (95-119)/(51-89) Temp: [36.9 C (98.4 F)-38.2 C (100.8 F)] Pulse: [77-103] Respirations: [18 PER MINUTE-28 PER MINUTE] SpO2: [93 %-96 %] O2 Delivery: Nasal Cannula General appearance: alert, oriented, fatigued HENT: Dry oral mucosa, dried blood on lips Lungs: no wheezing, rhonchi, rales appreciated Heart: Regular rhythm, reg rate, with no murmur, rub, gallop Abdomen: soft, non-tender, non-distended, normoactive bowel sounds, Ext: No clubbing, cyanosis or edema Skin: no rashes/lesions Lab Review Point of Care Testing (Last 24 hours) Glucose: (!) 225 (04/25/17 0734) POC Glucose (Download): (!) 215 (04/25/17 1017) Recent Labs 04/24/17 0155 04/24/17 1600 04/24/17 1800 04/25/17 0515 04/25/17 0734 NA 135* -- -- -- 131* K 3.8 -- -- -- 4.7 CL 103 -- -- -- 104 CO2 23 -- -- -- 20* GAP 9 -- -- -- 7 BUN 30* -- -- -- 32* CR 1.57* -- -- -- 1.82* GLU 164* -- -- -- 225* CA 8.2* -- -- -- 7.8* ALBUMIN 2.8* -- -- -- 2.5* MG 2.1 1.9 -- -- 2.1 PO4 3.8 -- 3.4 3.9 -- HGBA1C -- 5.2 -- -- -- Recent Labs 04/24/17 0155 04/24/17 1600 04/24/17 1800 04/25/17 0515 04/25/17 0734 WBC 58.2* 65.6* -- -- 77.1* HGB 7.2* 6.4* -- -- 6.9* HCT 20.9* 18.7* -- -- 19.9* PLTCT 43* 29* -- -- 28* INR 2.4* -- 2.0* 2.0* -- PTT 27.7 -- 30.2 28.8 -- AST 27 -- -- -- 19 ALT 6* -- -- -- 6* ALKPHOS 35 -- -- -- 33 Estimated Creatinine Clearance: 50.1 mL/min (based on Cr of 1.82). Vitals: 04/24/17 0728 04/25/17 0215 04/25/17 1145 Weight: (!) 140.9 kg (310 lb 10.1 oz) (!) 142.4 kg (314 lb) (!) 142.9 kg (315 lb 0.6 oz) Thyroid Studies No results found for: TSH, FREET4, FREEINDEX No results found for: FREET3, [id number], THYBINDGLB Linh Lewis MD Endocrinology Fellow PGY-5 Associated attestation - Adeola Patel MD - 04/25/2017 2:04 PM CDT Formatting of this note may be different from the original. ATTESTATION I personally performed the carrizales portions of the E/M visit, discussed case with resident and concur with resident documentation of history, physical exam, assessment, and treatment plan unless otherwise noted. Staff name: Adeola Patel MD Date: 04/25/2017 Tomorrow we might start low dose basal after the octreotide wears off. At this time we will not start any therapy * Tez Fajardo MD - 04/25/2017 11:24 AM CDT Formatting of this note may be different from the original. Impression: 1. SAVANAH - renal function worse today; Cr up to 1.8 Still with reasonable UO Will be at high risk for further SAVANAH progression with AML tx 2. CKD - stage III disease, baseline Cr of 1.2 3. 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 UTI - outside urine with + WBC and nitrites cefepime here, along with micafungin 5. Obesity 6. Hyperuricemia - mild; received single dose of rasburicase; remains on outpt allopurinol Plan: Will need to monitor uric acid, K, Ca and phos closely if chemotherapy is initiated Renal dosing on all meds Accurate I/O, daily standing weights Will need f/u UA w/ culture in next few days to make sure infection is clearing Agree with consult of ICU team for possible transfer as pt is high risk for acute decompensation, further SAVANAH Subjective: No overnight events reported. Pt continues to complain of severe fatigue. Had moderate UO yesterday; renal function slightly worse today. Exam: Blood pressure 105/53, pulse 93, temperature 36.9 C (98.5 F), height 170.2 cm (67"), weight (!) 142.4 kg (314 lb), SpO2 95 %. Intake/Output Summary (Last 24 hours) at 04/25/17 1124 Last data filed at 04/25/17 0900 Gross per 24 hour Intake 2839 ml Output 860 ml Net 1979 ml EXAM: GENERAL: A&Ox3, NAD HEENT: Sclera anict, crusted blood on lips CV: Irreg rhythm, slight tachy LUNGS: CTAB ABD: Obesity, soft, NT, ND EXT: No cyanosis/clubbing; trace edema SKIN: No rashes; + bruising MS: No joint swelling or tenderness CBC w/Diff Lab Results Component Value Date/Time WBC 77.1 (HH) 04/25/2017 07:34 AM RBC 2.01 (L) 04/25/2017 07:34 AM HGB 6.9 (L) 04/25/2017 07:34 AM HCT 19.9 (L) 04/25/2017 07:34 AM MCV 99.2 04/25/2017 07:34 AM MCH 34.4 (H) 04/25/2017 07:34 AM MCHC 34.7 04/25/2017 07:34 AM RDW 25.2 (H) 04/25/2017 07:34 AM PLTCT 28 (L) 04/25/2017 07:34 AM MPV 9.6 04/25/2017 07:34 AM Lab Results Component Value Date/Time ANC 10.03 (H) 04/25/2017 07:34 AM Renal Function Lab Results Component Value Date/Time NA 131 (L) 04/25/2017 07:34 AM K 4.7 04/25/2017 07:34 AM CL 104 04/25/2017 07:34 AM CO2 20 (L) 04/25/2017 07:34 AM GAP 7 04/25/2017 07:34 AM Lab Results Component Value Date/Time CR 1.82 (H) 04/25/2017 07:34 AM GLU 225 (H) 04/25/2017 07:34 AM CA 7.8 (L) 04/25/2017 07:34 AM PO4 3.9 04/25/2017 05:15 AM ALBUMIN 2.5 (L) 04/25/2017 07:34 AM * Carolynn López RN - 04/25/2017 11:10 AM CDT Pt transported to xray by cart, 1L O2 NC, portable tele pack in place. roll forming machine set up operator to transport with pt while PRBCs infuse. * Carolynn López RN - 04/25/2017 11:00 AM CDT Shift: [id number] NEWS Score: 5,10, 7 (during blood vitals/recheck) Pain: no reports this shift Nutrition: NPO prior to IR PICC placement GI/: LBM 10/ (COUNTER TOP ASSEMBLER), refusing stool softeners; voiding decreased dark foul smelling urine Activity: Q2 turns, pt encouraged to dangle Family: none present Last Shower: 04/24 * Carolynn López, RN - 04/25/2017 10:00 AM CDT NEWS score 10, rechecked to 7. Leslie DENT notified, team to come assess pt. Chest xray ordered, pt to transport to IR following xray for PICC placement. * Dipesh Bai MD - 04/25/2017 6:36 AM CDT Formatting of this note may be different from the original. STAFF CARDIOLOGY CONSULT NOTE Admission Date: 04/24/2017 Code Status: Full Code Assessment 1. AML. A. 04/24/2017 peripheral smear showed AML with 38% blasts. 2. 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 3. Mild to moderate . A. 04/24/2017 Echo EF 60%, mild LVH, RV nl, trace TR, mild to moderate , velocity varied from 2.5 to 3.4 m/s, mean gradients varied from 16-20 mmHg, no AI, peak PAP 29 mmHg, no pericardial effusion. 4. DM. 5. Neuropathy. 6. CKD. 7. Nephrolithiasis. 8. UTI on IV Abx. 9. OA. 10. Gout. 11. Obesity. 12. Likely MORENA, but did not tolerate sleep study. 13. History of sepsis. 14. Anxiety. 15. Anemia. 16. Thrombocytopenia. 17. Recurrent hypoglycemia. Plan She is +3.5 L yesterday. Her weight is listed is up 4 pounds from yesterday, her admission weight was 310 pounds, her weight today is listed as 314 pounds CBC is pending this morning, her INR is 2.0. Her fibrinogen was 601. Her uric acid has decreased from 8.1 to 4.4, phosphorus is stable at 3.9. Her UA overnight was consistent with persistent UTI. She has not had hypoglycemia overnight. Her blood pressure was stable overnight, she is on 1 L nasal cannula. She is on broad-spectrum coverage with Maxipime, micafungin, and vancomycin. Her current cardiac regimen includes atenolol 75 mg twice daily, and diltiazem 240 mg daily. 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 She remains on normal saline at 100 mL/h. I think we need to watch her carefully with the IVF, I suspect she does have diastolic dysfunction. As discussed yesterday, given her thrombocytopenia and bleeding risk, she is not a good candidate for anticoagulation currently. I rotate off today, I will have the consult team see her tomorrow. Subjective. She has some mild dyspnea, she is on 1 L NC. She noticed some palpitations at times yesterday. She denies having chest pain, PND, lower extremity edema, TIA , or CVA type symptoms. Home Medications Prescriptions Prior to Admission Medication Sig allopurinol (ZYLOPRIM) 100 mg tablet Take 100 mg by mouth daily. Take with food. ALPRAZolam (XANAX) 1 mg tablet Take 1 mg by mouth three times daily as needed for Anxiety. apixaban (ELIQUIS) 5 mg tablet Take 5 mg by mouth twice daily. ascorbic acid (VITAMIN C) 500 mg tablet Take 500 mg by mouth daily. atenolol (TENORMIN) 50 mg tablet Take 50 mg by mouth twice daily. CRANBERRY FRUIT EXTRACT (CRANBERRY EXTRACT PO) Take 1 tablet by mouth at bedtime daily. cyanocobalamin(+) (VITAMIN B-12) 500 mcg tablet Take 500 mcg by mouth daily. diltiazem CD (CARDIZEM CD) 240 mg capsule Take 240 mg by mouth daily. ergocalciferol (VITAMIN D-2) 50,000 unit capsule Take 1 capsule by mouth every 7 days. furosemide (LASIX) 40 mg tablet Take 40 mg by mouth every 48 hours. glimepiride (AMARYL) 4 mg tablet Take 4 mg by mouth daily with breakfast. magnesium oxide (MAG-OX) 400 mg tablet Take 400 mg by mouth daily. nitrofurantoin monohyd/m-cryst (MACROBID) 100 mg capsule Take 100 mg by mouth daily. Take with food. oxybutynin XL (DITROPAN XL) 10 mg tablet Take 10 mg by mouth daily. potassium chloride SR (K-DUR) 10 mEq tablet Take 10 mEq by mouth every 48 hours. Take with a meal and a full glass of water. Current Medications acyclovir (ZOVIRAX) tablet 800 mg 800 mg Oral BID allopurinol (ZYLOPRIM) tablet 100 mg 100 mg Oral QDAY atenolol (TENORMIN) tablet 75 mg 75 mg Oral BID cefepime (MAXIPIME) 2 g/100 ml iso-osmotic IVPB 2 g Intravenous Q12H* diltiazem CD (cardIZEM CD) capsule 240 mg 240 mg Oral QDAY micafungin (MYCAMINE) 50 mg in sodium chloride 0.9% (NS) 105 mL IVPB 50 mg Intravenous Q24H* octreotide (SANDOSTATIN) injection 100 mcg 100 mcg Subcutaneous TID oxybutynin XL (DITROPAN XL) tablet 10 mg 10 mg Oral QDAY SODIUM CHLORIDE 0.9 % IV SOLP (Cabinet Override) NOW acetaminophen Q6H PRN, ALPRAZolam BID PRN, alteplase PRN (Compliance Representative from Rx), fentaNYL citrate PF Once PRN, LORazepam Once PRN, magnesium sulfate 4 g/50 mL PRN, milk of magnesia (CONC) Q6H PRN, potassium chloride PRN (Compliance Representative from Rx) * *OR potassium chloride SR PRN (Compliance Representative from Rx), sodium chloride 0.9% irrigation bottle PRN Allergies Allergies Allergen Reactions Ciprofloxacin SEE COMMENTS Per Nephrology doctors. Levofloxacin SEE COMMENTS Per nephrology doctors. Nsaids (Non-Steroidal Anti-Inflammatory Drug) SEE COMMENTS Per nephrology doctors. Bactrim [Sulfamethoxazole-Trimethoprim] SEE COMMENTS Per Nephrology Doctors. Contrast Dye Iv, Iodine Containing [Iodinated Contrast- Oral And Iv Dye] SEE COMMENTS Per nephrology doctors. Vital Signs: Most Recent Vital Signs: 24 Hour Range BP: 117/67 (04/25 215) Temp: 37.6 C (99.6 F) (04/25 215) Pulse: 86 (04/25 215) Respirations: 20 PER MINUTE (04/25 215) SpO2: 94 % (04/25 215) O2 Delivery: Nasal Cannula (04/25 215) Height: 170.2 cm (5' 7") (04/24 728) BP: (102-123)/(54-82) Temp: [36.9 C (98.5 F)-38.2 C (100.8 F)] Pulse: [83-103] Respirations: [18 PER MINUTE-22 PER MINUTE] SpO2: [94 %-99 %] O2 Delivery: Nasal Cannula Vitals: 04/24/17 0320 04/24/1772704/25/17214 Weight: (!) 140.9 kg (310 lb 10.1 oz) (!) 140.9 kg (310 lb 10.1 oz) (!) 142.4 kg (314 lb) Intake/Output Summary (Last 24 hours) at 04/25/17 0636 Last data filed at 04/25/17 0525 Gross per 24 hour Intake 4239 ml Output 1185 ml Net 3054 ml Physical Exam General Appearance: mild distress, obese HEENT: EOMI, MM-moist, post OP-clear Neck: no JVD, no carotid bruits RESP: lungs CTAB, no rales, rhonchi, or wheezing Cardiac Rhythm: regular rhythm & normal rate Cardiac Auscultation: Normal S1 & S2, no S3 or S4, no rub Murmurs: 2/6 early peaking systolic murmur at the base Abdominal Exam: soft, non-tender, normal bowel sounds, no masses or bruits Liver & Spleen: no organomegaly Skin: warm & intact. No c/c, trace edema Neurologic Exam: oriented to time, place and person; no focal neurologic deficits Labs Results for orders placed or performed during the hospital encounter of (from the past 24 hour(s)) POC GLUCOSE Collection Time: 04/24/17 7:41 AM Result Value Ref Range Glucose, POC 61 (L) 70 - 100 MG/DL LDH-LACTATE DEHYDROGENASE Collection Time: 04/24/17 7:49 AM Result Value Ref Range Lactate Dehydrogenase 548 (H) 100 - 210 U/L POC GLUCOSE Collection Time: 04/24/17 8:27 AM Result Value Ref Range Glucose, POC 90 70 - 100 MG/DL POC GLUCOSE Collection Time: 04/24/17 1:01 PM Result Value Ref Range Glucose, POC 45 (LL) 70 - 100 MG/DL POC GLUCOSE Collection Time: 04/24/17 1:20 PM Result Value Ref Range Glucose, POC 48 (LL) 70 - 100 MG/DL POC GLUCOSE Collection Time: 04/24/17 1:40 PM Result Value Ref Range Glucose, POC 97 70 - 100 MG/DL CBC AND DIFF Collection Time: 04/24/17 4:00 PM Result Value Ref Range White Blood Cells 65.6 (HH) 4.5 - 11.0 K/UL RBC 1.81 (L) 4.0 - 5.0 M/UL Hemoglobin 6.4 (L) 12.0 - 15.0 GM/DL Hematocrit 18.7 (L) 36 - 45 % MCV 103.4 (H) 80 - 100 FL MCH 35.4 (H) 26 - 34 PG MCHC 34.3 32.0 - 36.0 G/DL RDW 19.5 (H) 11 - 15 % Platelet Count 29 (L) 150 - 400 K/UL MPV 10.0 7 - 11 FL Nucleated RBCs 1 K/UL Segmented Neutrophils 13 (L) 41 - 77 % Bands 7 0 - 10 % Lymphocytes 7 (L) 24 - 44 % Monocytes 8 4 - 12 % Eosinophil 1 0 - 5 % Metamyelocyte 2 % Blast 62 % ANISO PRESENT POIK PRESENT POLY PRESENT Ovalocyte PRESENT Teardrop PRESENT Platelet Estimate MKD DEC Absolute Neutrophil Count Manual 13.12 (H) 1.8 - 7.0 K/UL FIBRINOGEN Collection Time: 04/24/17 4:00 PM Result Value Ref Range Fibrinogen 555 (H) 200 - 400 MG/DL MAGNESIUM Collection Time: 04/24/17 4:00 PM Result Value Ref Range Magnesium 1.9 1.6 - 2.6 mg/dL POC GLUCOSE Collection Time: 04/24/17 5:37 PM Result Value Ref Range Glucose, POC 123 (H) 70 - 100 MG/DL BLOOD TYPE CONFIRMATION - ORDER ONLY IF REQUESTED BY LAB Collection Time: 04/24/17 5:52 PM Result Value Ref Range ABO/RH(D) A POS URIC ACID Collection Time: 04/24/17 6:00 PM Result Value Ref Range Uric Acid 4.4 2.0 - 7.0 MG/DL PROTIME INR (PT) Collection Time: 04/24/17 6:00 PM Result Value Ref Range INR 2.0 (H) 0.8 - 1.2 PTT (APTT) Collection Time: 04/24/17 6:00 PM Result Value Ref Range APTT 30.2 21.0 - 39.0 SEC PHOSPHORUS Collection Time: 04/24/17 6:00 PM Result Value Ref Range Phosphorus 3.4 2.0 - 4.0 MG/DL URINALYSIS DIPSTICK Collection Time: 04/24/17 9:07 PM Result Value Ref Range Color,UA ENE Turbidity,UA 2+ (A) CLEAR-CLEAR Specific [place]-Urine 1.015 1.003 - 1.035 pH,UA 5.0 5.0 - 8.0 Protein,UA 2+ (A) NEG-NEG Glucose,UA NEG NEG-NEG Ketones,UA TRACE (A) NEG-NEG Bilirubin,UA NEG NEG-NEG Blood,UA 2+ (A) NEG-NEG Urobilinogen,UA NORMAL NORM-NORMAL Nitrite,UA NEG NEG-NEG Leukocytes,UA 3+ (A) NEG-NEG Urine Ascorbic Acid, UA POS (A) NEG-NEG URINALYSIS, MICROSCOPIC Collection Time: 04/24/17 9:07 PM Result Value Ref Range WBCs,UA PACKED 0 - 2 /HPF RBCs,UA PACKED 0 - 3 /HPF MucousUA TRACE Bacteria,UA MODERATE (A) NEG-NEG WBC Clumps PRESENT Squamous Epithelial Cells 10-20 0 - 5 POC GLUCOSE Collection Time: 04/24/17 9:36 PM Result Value Ref Range Glucose, POC 287 (H) 70 - 100 MG/DL POC GLUCOSE Collection Time: 04/25/17 1:43 AM Result Value Ref Range Glucose, POC 295 (H) 70 - 100 MG/DL URIC ACID Collection Time: 04/25/17 5:15 AM Result Value Ref Range Uric Acid 4.4 2.0 - 7.0 MG/DL PROTIME INR (PT) Collection Time: 04/25/17 5:15 AM Result Value Ref Range INR 2.0 (H) 0.8 - 1.2 PTT (APTT) Collection Time: 04/25/17 5:15 AM Result Value Ref Range APTT 28.8 21.0 - 39.0 SEC PHOSPHORUS Collection Time: 04/25/17 5:15 AM Result Value Ref Range Phosphorus 3.9 2.0 - 4.0 MG/DL CBC AND DIFF Collection Time: 04/25/17 5:15 AM Result Value Ref Range White Blood Cells 4.5 - 11.0 K/UL RBC 4.0 - 5.0 M/UL Hemoglobin 12.0 - 15.0 GM/DL Hematocrit 36 - 45 % MCV 80 - 100 FL MCH 26 - 34 PG MCHC 32.0 - 36.0 G/DL RDW 11 - 15 % Platelet Count 150 - 400 K/UL MPV 7 - 11 FL FIBRINOGEN Collection Time: 04/25/17 5:15 AM Result Value Ref Range Fibrinogen 601 (H) 200 - 400 MG/DL POC GLUCOSE Collection Time: 04/25/17 5:25 AM Result Value Ref Range Glucose, POC 267 (H) 70 - 100 MG/DL Tele AF with variable ventricular response, rate stable this am. Lots of artifact no actual NSVT or asystole. ECG prior to transfer on 04/23/2017 showed AF with a HR of 70, borderline low voltage, non specific t-wave changes. Dipesh Bai MD * Allie Pope RN - 04/25/2017 6:19 AM CDT Shift: Pt slept on and off. Pt NEWS Score: 5 (Dr. Patel notified), 2 (oxygen), 2 (oxygen) Pain: pt denies pain just some generalized weakness and discomfort but does not want any treatment Nutrition: Pt currently NPO. IR or central line placement. GI/: Pt urine dark and cloudy. Urinalysis shows blood, proteins. Nell Nelson NP notified. Activity: Pt turns Q1-2 hr to prevent pressure sores Family: Last Shower: New Events or Follow-up: Pt temp overnight at 100.8. Dr. Patel notified, Pt tylenol. No change in antibiotics. Pt tolerated blood well. Awaiting blood this am. Pt is a hardstick. Pt to go to IR carter as possible Per LESLIE Aguilera NP. Pt BID labs and fsbs Q4. Next check at 0930. Pt on NS instead of D5. Last fsbs 267. Will ctm * Vira Nagy MD - 04/25/2017 6:05 AM CDT Formatting of this note may be different from the original. Bone Marrow Transplant Progress Note Today's Date: 04/25/2017 Name: Giselle Moraes Admission Date: 04/24/2017 LOS: LOS: 1 day Assessment/Plan: Active Problems: Leukocytosis Newly diagnosed AML Primary Diagnosis: [place] AML, presented with fatigue and leucocytosis Transferred from [facility] with leucocytosis concerning for AML - Blood counts at and admission 04/24: WBC=58.2, Hgb=7.2, PLT 43, PT=2.4, APTT 27.7, Rficbegcqk=117 - peripheral smear reviewed by pathologist- No APL, 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 Flow cytometry 38% blasts- positive for CD13, CD33, CD38, CD117, HLA-DR and cytoplasmic myeloperoxidase. They are negative for CD11b , CD11c, CD14, CD34, CD64, TdT, B- and T-cell markers. - patient on DTI- apixaban for atrial fibrillation with last dose on 04/26/17 PM. - Plan bone marrow biopsy on 04/26 in IR. We will schedule it. - Obtain 2 D echo - normal, EF-60% - Will obtain PICC line in IR today -04/25 - Start hydroxyurea 1 gram BID. Explained adverse effects- edema, hypersensitivity, nausea, vomiting, GI distress, chills, disorientation, drowsiness, diarrhea, bone marrow suppression, hepatic dysfunction, tumor lysis / renal failure - At present she does not show features of leucostasis- although a bit drowsy and has received alprazolam this morning. - Monitor DIC and TLS labs every 6 hours - Discussed with MICU for transfer for close monitoring of blood counts/ features of leucostasis and TLS/DIC. Heme: - Anemia and thrombocytopenia due to underlying AML - Leucucytosis- will start hydroxyurea as above. Monitor for TLS- she has CKD and DIC. - On anticoagulation with apixaban for Atrial fibrillation, will hod for now with thrombocytopenia - Monitor DIC labs every 6 hours. Elevated INR- likely from DTI, fibrinogen 442. - Anticoagulation with lovenox contraindicated due to thrombocytopenia, SCD's when on bed FEN/Renal: - Has CKD stage 3, renal function- creatinine 1.82, all medications renally dosed. - Appreciate renal recommendations - Uric acid 8.1, received 1 dose of rasburicase - Continue allopuriol - monitor electrolytes, will be high goal replacement with h/o atrial fibrillation - Close monitoring of fluid status ID: - Presents with UTI and fever - Had persistent fevers, started on cefepime and vancomycin. With renal dysfunction will stop vancomycin and start daptomycin - Blood cultures and urine cultures pending - Had urinary catheter in place, after discussions now catheter is removed on . - On prophylaxis with micafungin and acyclovir - Continue IV fluids/ hydration. Monitor closely - Chest Xray has cardiomegaly ( outside records) GI: - No nausea, vomiting or diarrhea - low albumin. Liver functions normal - Obese, weight 140.9 kgs Endo: - Has type II DM, on glimiperide has been discontinued on admission - Had persistent low blood sugars, now blood sugars better - Endocrinology consultation obtained and appreciate recommendations CVS: - H/o atrial fibrillation , rate controlled. She is on atenolol, diltiazem furosemide - Will hold apixaban and continue atenolol and diltiazem - Cardiology opinion appreciated, 2 d Echo- normal EF 60%. Psych: Pleasant, no issues - On alprazolam for anxiety. She is drowsy and fatigued, will discontinue alprazolam. GvHD Staging/Grading: pre- transplant Subjective: Giselle Moraes is a 56 y.o. female feels tired and fatigued, drowsy but oriented.Continues to have low grade fevers. Bleeding on lips, no gum bleeding.No nausea or vomiting. Review of Systems: Constitutional: + fatigue, fevers, chills, sweats/diaphoresis, maliase, anorexia , appetite change, weight change (loss) HEENT: Negative. No ear/ nose problems. Bleeding of lips due to dryness. No gum bleeding Respiratory: +cough, sputum, mild SOB Cardiovascular: Negative for chest pain, chest pressure, palpitations, edema in extremeties Gastrointestional: diarrhea intermittent. No abdominal pain/ nausea or vomiting Gernitourinary: + dysuria, no hematuria Musculoskeletal:Negative Skin: Negative Pysch: + anxiety Objective: Medications: Scheduled Meds: acyclovir (ZOVIRAX) tablet 800 mg 800 mg Oral BID allopurinol (ZYLOPRIM) tablet 100 mg 100 mg Oral QDAY atenolol (TENORMIN) tablet 75 mg 75 mg Oral BID cefepime (MAXIPIME) 2 g/100 ml iso-osmotic IVPB 2 g Intravenous Q12H* diltiazem CD (cardIZEM CD) capsule 240 mg 240 mg Oral QDAY micafungin (MYCAMINE) 50 mg in sodium chloride 0.9% (NS) 105 mL IVPB 50 mg Intravenous Q24H* octreotide (SANDOSTATIN) injection 100 mcg 100 mcg Subcutaneous TID oxybutynin XL (DITROPAN XL) tablet 10 mg 10 mg Oral QDAY SODIUM CHLORIDE 0.9 % IV SOLP (Cabinet Override) NOW Continuous Infusions: sodium chloride 0.9 % infusion 100 mL/hr at 04/25/17 0515 PRN and Respiratory Meds:acetaminophen Q6H PRN, ALPRAZolam BID PRN, alteplase PRN (Compliance Representative from Rx), fentaNYL citrate PF Once PRN, LORazepam Once PRN, magnesium sulfate 4 g/50 mL PRN, milk of magnesia (CONC) Q6H PRN, potassium chloride PRN (Compliance Representative from Rx) OR potassium chloride SR PRN (Compliance Representative from Rx ), sodium chloride 0.9% irrigation bottle PRN Vital Signs: Last Filed Vital Signs: 24 Hour Range BP: 117/67 (04/25 215) Temp: 37.6 C (99.6 F) (04/25 215) Pulse: 86 (04/25 215) Respirations: 20 PER MINUTE (04/25 215) SpO2: 94 % (04/25 215) O2 Delivery: Nasal Cannula (04/25 215) Height: 170.2 cm (67") (04/24 728) BP: (102-123)/(54-82) Temp: [36.9 C (98.5 F)-38.2 C (100.8 F)] Pulse: [83-103] Respirations: [18 PER MINUTE-22 PER MINUTE] SpO2: [94 %-99 %] O2 Delivery: Nasal Cannula Intensity Pain Scale 0-10 (Pain 1): (not recorded) Vitals: 04/24/17 0320 04/24/17 0728 04/25/175 Weight: (!) 140.9 kg (310 lb 10.1 oz) (!) 140.9 kg (310 lb 10.1 oz) (!) 142.4 kg (314 lb) Intake/Output Summary: (Last 24 hours) Intake/Output Summary (Last 24 hours) at 04/25/17 0605 Last data filed at 04/25/17 0525 Gross per 24 hour Intake 4239 ml Output 1185 ml Net 3054 ml Physical Exam: Performance Status (Karnofsky): 60% Requires some assistance, but able to care for most of needs General: awake & oriented, no acute distress, appears stated age, Morbidly obese HENT: normocephalic, atraumatic, non-icteric, clear conjunctivae, no adenopathy. Mild bleeding/ clotted blood onlips, no oral bleeding or gum bleeding Eyes: Conjunctuvae clear. PERRL, EOMs intact. CV: S1, S2, regular rhythm and rate, no murmur, click, rub Lungs: clear to ausculation bilaterally, non-labored Abdomen: Obese abdomen, soft, non-tender, non-distended, normo-active bowel sounds. Has indwelling catheter Extremities: no edema, cyanosis, pulses Skin: Warm & dry. Skin color, turgor normal. No rahses or lesions Neuro: drowsy but arousable and obeys all command, oriented to person, place and time. No focal deficits; normal muscle strength- normal Psych: Normal mood and affect. Judgment and thought content normal. Ventilator/Respiratory Support: On nasal cannula 2 liters Lab Review: reviewed Point of Care Testing: (Last 24 hours): POC Glucose (Download): (!) 267 (04/25/17 7839) Radiology Review: Pertinent radiology reviewed.outside records Vira Nagy MD, MRCP Communication Analyst Division Of Hematologic Malignancies and [employer] [facility] * Allie Pope RN - 04/25/2017 5:40 AM CDT Pt fsbs at 0500 267. LESLIE Aguilera NP notified. Orders to change D5 to NS at 100ml/ hr. Pt orders placed for IR for central line placement as soon as possible. Will ctm * Allie Pope RN - 04/25/2017 1:45 AM CDT Pt fsbs [address] Patel notified. Orders to continue to monitor * Pierce Sorenson RT - 04/25/2017 1:34 AM CDT Formatting of this note may be different from the original. RESPIRATORY THERAPY ADULT PROTOCOL EVALUATION RESPIRATORY PROTOCOL PLAN Medications Note: If indicated by protocol, medication orders will be placed by therapist. Procedures Oxygen/Humidity: O2 to keep SpO2 > 92% Monitoring: Pulse oximetry continuous (document SpO2 results Q4h) Comment: IS by RN PATIENT EVALUATION RESULTS Chart Review * Pulmonary Hx: No pulmonary diagnosis OR no smoking hx * Surgical Hx: No surgery OR last [...] with deep breathing * Breath Sounds: Clear apically, but diminished in bases (LE) OR CHF related crackles (02) (oximetry) * Cough / Sputum: Strong, effective cough OR nonproductive * Mental Status: Alert, oriented, cooperative * Activity Level: Non-ambulatory (LE) Priority Index Total Points: 5 Points * Priority Index: 1 PRIORITY INDEX GUIDELINES* Priority Points 1 0-9 points 2 9-18 points 3 > 18 points + Pulm Dx or Home Rx *Higher points indicate higher acuity. Therapist: Pierce Sorenson, RT Date: 04/25/2017 [place] AC=Airway clearance AM=Aerosolized medication BA=[place] aerosol DB&C=Deep breathe & cough FEV1=Forced expiratory volume in first second) IC=Inspiratory capacity LE=Lung expansion MDI=Metered dose inhaler Neb=Nebulizer O2=Oxygen Oxim=Oximetry PEFR=Peak expiratory flow rate GOLD LEAF LABORER=Rapid Response Team * Allie Pope RN - 04/24/2017 9:51 PM CDT Pt fsbs 287. Pt at 100ml/hr D5. Pt leads changed. Readings stating vtach. Vitals checked Pt not symptomatic. Temp improved at 100.0. Dr. Patel notified. Continue to monitor and changed D% to 50ml/hr. * Allie Pope RN - 04/24/2017 8:25 PM CDT Pt fever 100.8, notified Dr. Patel. Tylenol ordered and given. No change in antibiotics. 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 Bone Marrow Transplant Progress Note Today's Date: 04/24/2017 Name: Giselle Moraes Admission Date: 04/24/2017 LOS: LOS: 0 days Assessment/Plan: Active Problems: Leukocytosis Newly diagnosed AML Primary Diagnosis: [place] AML, presented with leucocytosis Transferred from [facility] with leucocytosis concerning for AML - Blood counts at - WBC=58.2, Hgb=7.2, PLT 43, PT=2.4, APTT 27.7, Fibrinogen= 693 - No features of leucocytosis - peripheral smear reviewed by pathologist- No APL, 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 Flow cytometry 38% blasts- positive for CD13, CD33, CD38, CD117, HLA-DR and cytoplasmic myeloperoxidase. They are negative for CD11b , CD11c, CD14, CD34, CD64, TdT, B- and T-cell markers. - patient on DTI- apixaban for atrial fibrillation with last dose on 04/26/17 PM. Will hold off on bone marrow biopsy for 24 hours - Obtain 2 D echo and PICC line- which will be done on 04/26 by IR - Monitor DIC and TLS labs every 6 hours Heme: - Anemia and thrombocytopenia due to underlying AML - On anticoagulation with apixaban for Atrial fibrillation, will hod for now with thrombocytopenia - Monitor DIC labs every 6 hours - Anticoagulation with lovenox contraindicated due to thrombocytopenia, SCD's when on bed FEN/Renal: - Has CKD stage 3, renal function- creatinine 1.57. Will obtain nephrology consultation, patient will need to start induction chemotherapy soon. - Uric acid 8.1, received 1 dose of rasburicase - Continue allopuriol - monitor electrolytes, will be high goal replacement with h/o atrial fibrillation - Close monitoring of fluid status ID: - Presents with UTI and fever - Started on cefepime and vancomycin for fever and UTI - Blood cultures and urine cultures pending - She has urinary catheter in place, discussed that this should come out, but patient reluctant due to poor mobility- she states she cannot go to the restroom - Explained this is a source of infection in AML patients and can lead to sepsis. - On prophylaxis with micafungin and acyclovir - Continue IV fluids/ hydration. Monitor closely - Chest Xray has cardiomegaly ( outside records) GI: - No nausea, vomiting or diarrhea - low albumin. Liver functions normal - Obese, weight 140.9 kgs Endo: - Has type II DM, on glimiperide - On sliding scale insulin, will obtain endocrinology consultation CVS: - H/o atrial fibrillation , rate controlled. She is on atenolol, diltiazem furosemide - Will hold apixaban and continue atenolol and diltiazem - Will consult cardiology. Obtain 2 D echo Psych: Pleasant, no issues GvHD Staging/Grading: pre- transplant Subjective: Giselle Moraes is a 56 y.o. female admitted with leucocytosis likely acute leukemia. Has fatigue, night sweats and cough. No nausea or vomiting. No fevers. Review of Systems: Constitutional: + fatigue, fevers, chills, sweats/diaphoesis, maliase, anorexia , appetite change, weight change (loss) HEENT: Negative. No ear/ nose problems Respiratory: +cough, sputum, mild SOB Cardiovascular: Negative for chest pain, chest pressure, palpitations, edema in extremeties Gastrointestional: diarrhea intermittent. No abdominal pain/ nausea or vomiting Gernitourinary: + dysuria Musculoskeletal:Negative Skin: Negative Pysch: + anxiety Objective: Medications: Scheduled Meds: acyclovir (ZOVIRAX) tablet 800 mg 800 mg Oral BID allopurinol (ZYLOPRIM) tablet 100 mg 100 mg Oral QDAY atenolol (TENORMIN) tablet 50 mg 50 mg Oral BID cefepime (MAXIPIME) 2 g/100 ml iso-osmotic IVPB 2 g Intravenous Q12H* diltiazem CD (cardIZEM CD) capsule 240 mg 240 mg Oral QDAY micafungin (MYCAMINE) 50 mg in sodium chloride 0.9% (NS) 105 mL IVPB 50 mg Intravenous Q24H* oxybutynin XL (DITROPAN XL) tablet 10 mg 10 mg Oral QDAY SODIUM CHLORIDE 0.9 % IR SOLN (Cabinet Override) NOW SODIUM CHLORIDE 0.9 % IV SOLP (Cabinet Override) NOW vancomycin (VANCOCIN) 1,500 mg in dextrose 5% (D5W) IVPB 1,500 mg Intravenous Q24H* Continuous Infusions: dextrose 5 % & 0.9% NaCl infusion 100 mL/hr at 04/24/17 0147 PRN and Respiratory Meds:ALPRAZolam BID PRN, alteplase PRN (Compliance Representative from Rx), [ START ON 04/25/2017] fentaNYL citrate PF Once PRN, [START ON 04/25/2017] LORazepam Once PRN, milk of magnesia (CONC) Q6H PRN, sodium chloride 0.9% irrigation bottle PRN Vital Signs: Last Filed Vital Signs: 24 Hour Range BP: 114/54 (04/24 1335) Temp: 36.9 C (98.5 F) (04/24 1335) Pulse: 94 (04/24 1335) Respirations: 20 PER MINUTE (04/24 1335) SpO2: 96 % (04/24 1335) O2 Delivery: Nasal Cannula (04/24 1335) Height: 170.2 cm (67") (04/24 728) BP: (113-123)/(54-66) Temp: [36.7 C (98.1 F)-37.9 C (100.3 F)] Pulse: [64-100] Respirations: [20 PER MINUTE-24 PER MINUTE] SpO2: [96 %-99 %] O2 Delivery: Nasal Cannula Intensity Pain Scale 0-10 (Pain 1): (not recorded) Vitals: 04/24/17 0320 04/24/17727 Weight: (!) 140.9 kg (310 lb 10.1 oz) (!) 140.9 kg (310 lb 10.1 oz) Intake/Output Summary: (Last 24 hours) Intake/Output Summary (Last 24 hours) at 04/24/17 1437 Last data filed at 04/24/17 1042 Gross per 24 hour Intake 1640 ml Output 700 ml Net 940 ml Physical Exam: Performance Status (Karnofsky): 60% Requires some assistance, but able to care for most of needs General: awake & oriented, no acute distress, appears stated age, Morbidly obese HENT: normocephalic, atraumatic, non-icteric, clear conjunctivae, no adenopathy. Mild bleeding on lips, no oral bleeding or gum bleeding Eyes: Conjunctuvae clear. PERRL, EOMs intact. CV: S1, S2, regular rhythm and rate, no murmur, click, rub Lungs: clear to ausculation bilaterally, non-labored Abdomen: Obese abdomen, soft, non-tender, non-distended, normo-active bowel sounds. Has indwelling catheter Extremities: no edema, cyanosis, pulses Skin: Warm & dry. Skin color, turgor normal. No rahses or lesions Neuro: Alert and oriented to person, place and time. No focal deficits; normal muscle strength- normal Psych: Normal mood and affect. Judgment and thought content normal. Ventilator/Respiratory Support: On nasal cannula 2 liters Lab Review: reviewed Point of Care Testing: (Last 24 hours): FSBS (Manual): (!) 46 (04/24/17 0133) Glucose: (!) 164 (04/24/17 0155) POC Glucose (Download): 97 (04/24/17 1340) Radiology Review: Pertinent radiology reviewed.outside records Vira Nagy MD, MRCP Communication Analyst Division Of Hematologic Malignancies and Cellular The[employer] [facility] * Carolynn López RN - 04/24/2017 11:20 AM CDT Gonzalez catheter clamped at 1100, urge to go at 1350. Catheter removed as ordered. Void-by time 1950. * Sushil Garcia RN - 04/24/2017 10:28 AM CDT Pt A&Ox4. Patient allergy band in place.Pt ID band verified with patient. Profile completed, Fall risk in place, care plan/education updated, call light within reach * Keerthi Gage RN - 04/24/2017 4:11 AM CDT Patient arrived to unit 42 via EMS and transferred to bed. VSS. No complaints of pain, SOA, or chest pain. FBS 46, treated with 8 oz of juice. Repeat FBS 46, treated with 50ml of D50. FBS 198. IV team consulted for PIV placement and lab draw. Labs, PIV, and 1 set of blood cultures all obtained. Patient transferred to [facility]. See DocFlow for assessment performed by this RN. Patient oriented to room and POC for shift. Will continue to monitor. * Keerthi Gage RN - 04/24/2017 4:09 AM CDT 1 set of peripheral blood cultures obtained by IV therapy. Dr. Willingham notified of difficult stick. Ok to proceed with 1 set of cultures. * Lisseth Bhagat RN - 04/24/2017 2:00 AM CDT IVT for PIV, pt very vasculature compromised, she doesn't have adequate veins for us to place a PICC line. She will need to go to IR for a PICC line in this encounter H&P Notes * Priyank Doyle APRN-GABRIELLA - 05/11/2017 8:55 AM CDT Formatting of this note may be different from the original. Pre-Procedure History and Physical/Sedation Plan Procedure Date: 05/11/2017 Planned Procedure(s): Bone marrow aspiration and biopsy; LP with IT chemo Indication: AML Chief Complaint: AML History of Present Illness: Giselle Moraes is a 56 y.o. female with a history of AML who presents today for procedure. 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) 04/25/2017 Thrombocytopenia ([facility]) 04/25/2017 SAVANAH (acute kidney injury) ([facility]) 04/25/2017 Acute cystitis without hematuria 04/25/2017 Sepsis (HCC) 04/25/2017 Coagulopathy ([facility]) 04/25/2017 Chronic atrial fibrillation (HCC) 04/25/2017 Protein-calorie malnutrition (HCC) 04/25/2017 Leukocytosis 04/24/2017 Past Medical History: Diagnosis Date Arthritis CKD (chronic kidney disease) DM (diabetes mellitus) (HCC) Gout Hypertension Kidney stones 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 Take with food. 04/23/2017 ALPRAZolam (XANAX) 1 mg tablet Take 1 mg by mouth three times daily as needed for Anxiety. 04/23/2017 apixaban (ELIQUIS) 5 mg tablet Take 5 mg by mouth twice daily. 04/23/2017 ascorbic acid (VITAMIN C) 500 mg tablet Take 500 mg by mouth daily. 2016 atenolol (TENORMIN) 50 mg tablet Take 50 mg by mouth twice daily. 2016 CRANBERRY FRUIT EXTRACT (CRANBERRY EXTRACT PO) Take 1 tablet by mouth at bedtime daily. 04/23/2017 cyanocobalamin(+) (VITAMIN B-12) 500 mcg tablet Take 500 mcg by mouth daily. 04/23/2017 diltiazem CD (CARDIZEM CD) 240 mg capsule Take 240 mg by mouth daily. 04/23 ergocalciferol (VITAMIN D-2) 50,000 unit capsule Take 1 capsule by mouth every 7 days. 04/18/2017 furosemide (LASIX) 40 mg tablet Take 40 mg by mouth every 48 hours. 2016 glimepiride (AMARYL) 4 mg tablet Take 4 mg by mouth daily with breakfast. 04/23/2017 magnesium oxide (MAG-OX) 400 mg tablet Take 400 mg by mouth daily. 2016 nitrofurantoin monohyd/m-cryst (MACROBID) 100 mg capsule Take 100 mg by mouth daily. Take with food. 04/22/2017 oxybutynin XL (DITROPAN XL) 10 mg tablet Take 10 mg by mouth daily. 2016 potassium chloride SR (K-DUR) 10 mEq tablet Take 10 mEq by mouth every 48 hours. Take with a meal and a full glass of water. 04/21/2017 Allergies Allergen Reactions Ciprofloxacin SEE COMMENTS Per Nephrology doctors. Levofloxacin SEE COMMENTS Per nephrology doctors. Nsaids (Non-Steroidal Anti-Inflammatory Drug) SEE COMMENTS Per nephrology doctors. Bactrim [Sulfamethoxazole-Trimethoprim] SEE COMMENTS Per Nephrology Doctors. Contrast Dye Iv, Iodine Containing [Iodinated Contrast- Oral And Iv Dye] SEE COMMENTS Per nephrology doctors. Social History: Social History Substance Use Topics Smoking status: Never Smoker Smokeless tobacco: Never Used Alcohol use No History reviewed. No pertinent family history. Review of Systems A comprehensive review of systems was negative. Previous Personal Anesthetic/Sedation History: Denies adverse events related to sedation/anesthesia. Previous Family Anesthetic/Sedation History: Denies adverse events related to sedation/anesthesia. Physical Exam: Vital Signs: Last Filed In 24 Hours Vital Signs: 24 Hour Range BP: 126/79 (05/11 815) Temp: 36.9 C (98.4 F) (05/11 817) Pulse: 74 (05/11 815) Respirations: 22 PER MINUTE (05/11 815) SpO2: 100 % (05/11 815) O2 Delivery: None (Room Air) (05/11 817) SpO2 Pulse: 76 (05/11 815) BP: (103-131)/(45-79) Temp: [36.3 C (97.3 F)-37.4 C (99.3 F)] Pulse: [62-92] Respirations: [16 PER MINUTE-22 PER MINUTE] SpO2: [96 %-100 %] O2 Delivery: None (Room Air) General appearance: alert and no distress noted. Neurologic: Grossly normal. Lungs: Non labored. Heart: regular rate and rhythm Airway: airway assessment performed Mallampati III (soft palate, base of uvula visible) Head and Neck: no abnormalities noted Mouth: no abnormalities noted NPO status: Acceptable Status: Not Anesthesia Classification: ASA III (A patient with a severe systemic disease that limits activity, but is not incapacitating) Sedation/Medication Plan: Conscious sedation Discussion/Reviews: Physician has discussed risks and alternatives of this type of sedation and above planned procedures with patient Lab/Radiology/Other Diagnostic Tests: Labs: Pertinent labs reviewed; Will infuse platelets as per protocol Priyank Doyle APRN-[employer] WORK [employer]IMMER Pager [phone] * Tomer Camp MD - 04/26/2017 4:46 PM CDT Formatting of this note may be different from the original. Pre Procedure History and Physical/Sedation Plan Procedure Date: 04/26/2017 Planned Procedure(s): bone marrow biopsy Chief Complaint: " AML " Previous Anesthetic/Sedation History: no adverse events reported Allergies: Ciprofloxacin; Levofloxacin; Nsaids (non-steroidal anti-inflammatory drug); Bactrim [sulfamethoxazole-trimethoprim]; and Contrast dye iv, iodine containing [iodinated contrast- oral and iv dye] Medications: Scheduled Meds: acyclovir (ZOVIRAX) tablet 400 mg 400 mg Oral BID allopurinol (ZYLOPRIM) tablet 300 mg 300 mg Oral QDAY cefepime (MAXIPIME) 2 g/100 ml iso-osmotic IVPB 2 g Intravenous Q12H* diltiazem CD (cardIZEM CD) capsule 240 mg 240 mg Oral QDAY hydroxyurea (HYDREA) capsule 1,000 mg 1,000 mg Oral BID insulin aspart (NOVOLOG FLEXPEN) injection PEN 0-7 Units 0-7 Units Subcutaneous ACHS micafungin (MYCAMINE) 50 mg in sodium chloride 0.9% (NS) 105 mL IVPB 50 mg Intravenous Q24H* polyethylene glycol 3350 (MIRALAX) packet 17 g 1 packet Oral QDAY senna (SENOKOT) tablet 1 tablet 1 tablet Oral BID Continuous Infusions: lactated ringers infusion Stopped (04/26/17 1128) PRN and Respiratory Meds:acetaminophen Q6H PRN, alteplase PRN (Compliance Representative from Rx) , magnesium sulfate 4 g/50 mL PRN, milk of magnesia (CONC) Q6H PRN, saliva, synthetic PRN, sodium chloride 0.9% irrigation bottle PRN Vital Signs: Last Filed Vital Signs: 24 Hour Range BP: 125/71 (04/26 1600) Temp: 36.9 C (98.5 F) (04/26 1600) Pulse: 75 (04/26 1600) Respirations: 24 PER MINUTE (04/26 1600) SpO2: 93 % (04/26 1600) O2 Delivery: None (Room Air) (04/26 1600) SpO2 Pulse: 76 (04/26 1600) BP: (94-140)/(43-93) Temp: [36.4 C (97.6 F)-36.9 C (98.5 F)] Pulse: [63-87] Respirations: [13 PER MINUTE-27 PER MINUTE] SpO2: [92 %-100 %] O2 Delivery: None (Room Air) Sedation/Medication Plan: Fentanyl and Midazolam Personal history of sedation complications: Denies adverse event. Family history of sedation complications: Denies adverse event. Medications for Reversal: Naloxone and Flumazenil Discussion/Reviews: Physician has discussed risks and alternatives of this type of sedation and above planned procedures with patient NPO Status: Acceptable Airway: airway assessment performed Mallampati III (soft palate, base of uvula visible) Head and Neck: short neck Mouth: dried blood around lips Anesthesia Classification: ASA III (A patient with a severe systemic disease that limits activity, but is not incapacitating) Status: Not Lab/Radiology/Other Diagnostic Tests Labs: Relevant labs reviewed I have examined the patient, and there are no significant changes in their condition, from the previous H&P performed on 04/25/2017. Tomer Camp MD * Gretchen Avendaño MD - 04/25/2017 1:01 PM CDT Formatting of this note may be different from the original. Pre Procedure History and Physical/Sedation Plan Procedure Date: 04/25/2017 Planned Procedure(s): IJ triple lumen CVC placement Chief Complaint: " AML, SAVANAH, chemotherapy " Previous Anesthetic/Sedation History: Denies prior adverse events Allergies: Ciprofloxacin; Levofloxacin; Nsaids (non-steroidal anti- inflammatory drug); Bactrim [sulfamethoxazole-trimethoprim]; and Contrast dye iv , iodine containing [iodinated contrast- oral and iv dye] Medications: Scheduled Meds: acyclovir (ZOVIRAX) tablet 400 mg 400 mg Oral BID [START ON 04/26/2017] allopurinol (ZYLOPRIM) tablet 300 mg 300 mg Oral QDAY atenolol (TENORMIN) tablet 75 mg 75 mg Oral BID cefepime (MAXIPIME) 2 g/100 ml iso-osmotic IVPB 2 g Intravenous Q12H* DAPTOmycin (CUBICIN) 855 mg in sodium chloride 0.9% (NS) IVPB 6 mg/kg Intravenous Q24H* diltiazem CD (cardIZEM CD) capsule 240 mg 240 mg Oral QDAY hydroxyurea (HYDREA) capsule 1,000 mg 1,000 mg Oral BID insulin aspart (NOVOLOG FLEXPEN) injection PEN 0-7 Units 0-7 Units Subcutaneous ACHS micafungin (MYCAMINE) 50 mg in sodium chloride 0.9% (NS) 105 mL IVPB 50 mg Intravenous Q24H* Continuous Infusions: sodium chloride 0.9 % infusion 100 mL/hr at 04/25/17 0515 PRN and Respiratory Meds:acetaminophen Q6H PRN, alteplase PRN (Compliance Representative from Rx) , magnesium sulfate 4 g/50 mL PRN, milk of magnesia (CONC) Q6H PRN, potassium chloride PRN (Compliance Representative from Rx) OR potassium chloride SR PRN (Compliance Representative from Rx ), sodium chloride 0.9% irrigation bottle PRN Vital Signs: Last Filed Vital Signs: 24 Hour Range BP: 108/55 (04/25 1200) Temp: 37.1 C (98.8 F) (04/25 1145) Pulse: 79 (04/25 1245) Respirations: 23 PER MINUTE (04/25 1245) SpO2: 96 % (04/25 1245) O2 Delivery: Nasal Cannula (04/25 124) SpO2 Pulse: 78 (04/25 1245) BP: (95-119)/(51-89) Temp: [36.9 C (98.4 F)-38.2 C (100.8 F)] Pulse: [77-103] Respirations: [18 PER MINUTE-28 PER MINUTE] SpO2: [93 %-96 %] O2 Delivery: Nasal Cannula Sedation/Medication Plan: Fentanyl, Lidocaine and Midazolam Personal history of sedation complications: Denies adverse event. Family history of sedation complications: Denies adverse event. Medications for Reversal: Naloxone and Flumazenil Discussion/Reviews: Physician has discussed risks and alternatives of this type of sedation and above planned procedures with patient NPO Status: Acceptable Airway: airway assessment performed Mallampati III (soft palate, base of uvula visible) Head and Neck: no abnormalities noted Mouth: no abnormalities noted Anesthesia Classification: ASA III (A patient with a severe systemic disease that limits activity, but is not incapacitating) Status: Not Lab/Radiology/Other Diagnostic Tests Labs: Relevant labs reviewed I have examined the patient, and there are no significant changes in their condition, from the previous H&P performed on 04/24/2017. Gretchen Avendaño MD Pager [phone] * Ariela Gan DO - 04/25/2017 12:24 PM CDT Formatting of this note may be different from the original. 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 > Transfuse to maintain Hgb >7 and plts >10k (unless active bleeding then >50k) > DIC labs q6h WIRE BRUSHER: No acute issues Alert and oriented x 4 Cardiovascular: Persistent or Permanent Afib - 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 Respiratory: - No acute issues - Currently oxygenating well on 2L - pt currently does not require any O2, but is wearing for comfort - CXR on 04/25 with small bilateral pleural effusions GI: No acute issues : SAVANAH on CKD Stage 3 - Cr 1.57 --> 1.82 from baseline Cr ~1.2 - Pt was on Vancomycin, switched to Daptomycin > Monitor renal function closely with initiation of Hydrea > Renal following > Avoid nephrotoxic agents, renally dose all meds > Goal UOP 100mL/hr ID: Sepsis Hx of Recurrent UTIs - Pt presented to OSH on 04/23 with evidence of urosepsis - Received Cefepime and Flagyl at outside hospital - Outside urine culture growing E.coli - 3/4 SIRS on admission with Tmax 100.8, tachypnea, leukocytosis > Follow up blood and urine cultures > Check lactate and sputum culture > Continue Cefepime (started 04/24), Micafungin (started 04/24) Daptomycin MSK: Gout - Continue allopurinol ENDO: Hypoglycemia DM2 - 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 Brie Gan, D.O. Internal Medicine, PGY-2 Pager [phone] __ Primary Care Physician: Jacquelin Atkinson Verified Chief Complaint: AML History of Present Illness: Giselle Moraes is a 56 y.o. female with PMH of Afib on AC, DM2 with neuropathy, CKD, recurrent UTI, kidney stones, arthritis, gout and anxiety who has been transferred from [facility] due to concern for acute leukemia. The pt notes that she presented to the outside hospital on 04/23 because she was not feeling well. She notes that she was being treated for a UTI by her PCP, but noted continued dysuria and inability to urinate. In the ED at the outside hospital, she was found to have a WBC count of 52.9 and Hgb of 6.2. She was subsequently transferred to for possible AML. She was admitted to the Hematology service on 04/24 and was transferred to the ICU today due to inability to obtain vascular access and need for continuous monitoring. She currently reports fever, chills, night sweats, cough with green sputum, SOB and dysuria. She denies unintentional weight loss, n/v, abdominal pain, diarrhea , blood in her stool, rash, arthralgias or LE edema. 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 No pertinent family history. Social History Social History Marital status: Spouse name: N/A Number of children: N/A Years of education: N/A Social History Main Topics Smoking status: Never Smoker Smokeless tobacco: Never Used Alcohol use No Drug use: No Sexual activity: Not on file Other Topics Concern Not on file Social History Narrative No narrative on file Immunizations (includes history and patient reported): There is no immunization history on file for this patient. Allergies: Ciprofloxacin; Levofloxacin; Nsaids (non-steroidal anti- inflammatory drug); Bactrim [sulfamethoxazole-trimethoprim]; and Contrast dye iv , iodine containing [iodinated contrast- oral and iv dye] Medications: Prescriptions Prior to Admission Medication Sig allopurinol (ZYLOPRIM) 100 mg tablet Take 100 mg by mouth daily. Take with food. ALPRAZolam (XANAX) 1 mg tablet Take 1 mg by mouth three times daily as needed for Anxiety. apixaban (ELIQUIS) 5 mg tablet Take 5 mg by mouth twice daily. ascorbic acid (VITAMIN C) 500 mg tablet Take 500 mg by mouth daily. atenolol (TENORMIN) 50 mg tablet Take 50 mg by mouth twice daily. CRANBERRY FRUIT EXTRACT (CRANBERRY EXTRACT PO) Take 1 tablet by mouth at bedtime daily. cyanocobalamin(+) (VITAMIN B-12) 500 mcg tablet Take 500 mcg by mouth daily. diltiazem CD (CARDIZEM CD) 240 mg capsule Take 240 mg by mouth daily. ergocalciferol (VITAMIN D-2) 50,000 unit capsule Take 1 capsule by mouth every 7 days. furosemide (LASIX) 40 mg tablet Take 40 mg by mouth every 48 hours. glimepiride (AMARYL) 4 mg tablet Take 4 mg by mouth daily with breakfast. magnesium oxide (MAG-OX) 400 mg tablet Take 400 mg by mouth daily. nitrofurantoin monohyd/m-cryst (MACROBID) 100 mg capsule Take 100 mg by mouth daily. Take with food. oxybutynin XL (DITROPAN XL) 10 mg tablet Take 10 mg by mouth daily. potassium chloride SR (K-DUR) 10 mEq tablet Take 10 mEq by mouth every 48 hours. Take with a meal and a full glass of water. Review of Systems: Constitutional: positive for fevers, chills, sweats and fatigue, negative for weight loss Eyes: negative Ears, nose, mouth, throat, and face: positive for dry mouth Respiratory: positive for cough, sputum or increased work of breathing Cardiovascular: positive for irregular heart beats, negative for chest pain, lower extremity edema Gastrointestinal: negative for nausea, vomiting, diarrhea, constipation and abdominal pain Genitourinary:positive for dysuria Integument/breast: negative Hematologic/lymphatic: positive for easy bruising Musculoskeletal:negative Neurological: negative Behavioral/Psych: negative Endocrine: positive for temperature intolerance Allergic/Immunologic: negative Vital Signs: Last Filed In 24 Hours Vital Signs: 24 Hour Range BP: 105/53 (04/25 1009) Temp: 37.1 C (98.8 F) (04/25 114) Pulse: 77 (04/25 1200) Respirations: 22 PER MINUTE (04/25 1200) SpO2: 96 % (04/25 114) O2 Delivery: Nasal Cannula (04/25 1200) BP: (95-119)/(51-89) Temp: [36.9 C (98.4 F)-38.2 C (100.8 F)] Pulse: [77-103] Respirations: [18 PER MINUTE-28 PER MINUTE] SpO2: [93 %-96 %] O2 Delivery: Nasal Cannula Intensity Pain Scale 0-10 (Pain 1): (not recorded) Physical Exam: General: Alert, cooperative, morbidly obese Head: Normocephalic, without obvious abnormality, atraumatic Eyes: Conjunctivae/corneas clear. PERRL, EOMs intact. Throat: Lips, mucosa and tongue dry with dried blood. Teeth and gums normal Neck: Supple, symmetrical, trachea midline, no JVD Lungs: Clear to auscultation bilaterally Heart: Regular rate and rhythm, S1, S2 normal, systolic murmur appreciated Abdomen: Soft, non-tender. Bowel sounds normal. Extremities: Extremities normal, atraumatic, no cyanosis, trace edema Peripheral pulses: 2+ and symmetric, all extremities Skin: Skin color, texture, turgor normal. Multiple bruises on extremities Neurologic: CNII - XII intact. Normal strength, sensation and reflexes throughout. Ventilator/ Respiratory Support: No Lab: 24-hour labs: Results for orders placed or performed during the hospital encounter of (from the past 24 hour(s)) POC GLUCOSE Collection Time: 04/24/17 1:01 PM Result Value Ref Range Glucose, POC 45 (LL) 70 - 100 MG/DL POC GLUCOSE Collection Time: 04/24/17 1:20 PM Result Value Ref Range Glucose, POC 48 (LL) 70 - 100 MG/DL POC GLUCOSE Collection Time: 04/24/17 1:40 PM Result Value Ref Range Glucose, POC 97 70 - 100 MG/DL CBC AND DIFF Collection Time: 04/24/17 4:00 PM Result Value Ref Range White Blood Cells 65.6 (HH) 4.5 - 11.0 K/UL RBC 1.81 (L) 4.0 - 5.0 M/UL Hemoglobin 6.4 (L) 12.0 - 15.0 GM/DL Hematocrit 18.7 (L) 36 - 45 % MCV 103.4 (H) 80 - 100 FL MCH 35.4 (H) 26 - 34 PG MCHC 34.3 32.0 - 36.0 G/DL RDW 19.5 (H) 11 - 15 % Platelet Count 29 (L) 150 - 400 K/UL MPV 10.0 7 - 11 FL Nucleated RBCs 1 K/UL Segmented Neutrophils 13 (L) 41 - 77 % Bands 7 0 - 10 % Lymphocytes 7 (L) 24 - 44 % Monocytes 8 4 - 12 % Eosinophil 1 0 - 5 % Metamyelocyte 2 % Blast 62 % ANISO PRESENT POIK PRESENT POLY PRESENT Ovalocyte PRESENT Teardrop PRESENT Platelet Estimate MKD DEC Absolute Neutrophil Count Manual 13.12 (H) 1.8 - 7.0 K/UL FIBRINOGEN Collection Time: 04/24/17 4:00 PM Result Value Ref Range Fibrinogen 555 (H) 200 - 400 MG/DL MAGNESIUM Collection Time: 04/24/17 4:00 PM Result Value Ref Range Magnesium 1.9 1.6 - 2.6 mg/dL HEMOGLOBIN A1C Collection Time: 04/24/17 4:00 PM Result Value Ref Range Hemoglobin A1C 5.2 4.0 - 6.0 % POC GLUCOSE Collection Time: 04/24/17 5:37 PM Result Value Ref Range Glucose, POC 123 (H) 70 - 100 MG/DL BLOOD TYPE CONFIRMATION - ORDER ONLY IF REQUESTED BY LAB Collection Time: 04/24/17 5:52 PM Result Value Ref Range ABO/RH(D) A POS URIC ACID Collection Time: 04/24/17 6:00 PM Result Value Ref Range Uric Acid 4.4 2.0 - 7.0 MG/DL PROTIME INR (PT) Collection Time: 04/24/17 6:00 PM Result Value Ref Range INR 2.0 (H) 0.8 - 1.2 PTT (APTT) Collection Time: 04/24/17 6:00 PM Result Value Ref Range APTT 30.2 21.0 - 39.0 SEC PHOSPHORUS Collection Time: 04/24/17 6:00 PM Result Value Ref Range Phosphorus 3.4 2.0 - 4.0 MG/DL URINALYSIS DIPSTICK Collection Time: 04/24/17 9:07 PM Result Value Ref Range Color,UA ENE Turbidity,UA 2+ (A) CLEAR-CLEAR Specific [place]-Urine 1.015 1.003 - 1.035 pH,UA 5.0 5.0 - 8.0 Protein,UA 2+ (A) NEG-NEG Glucose,UA NEG NEG-NEG Ketones,UA TRACE (A) NEG-NEG Bilirubin,UA NEG NEG-NEG Blood,UA 2+ (A) NEG-NEG Urobilinogen,UA NORMAL NORM-NORMAL Nitrite,UA NEG NEG-NEG Leukocytes,UA 3+ (A) NEG-NEG Urine Ascorbic Acid, UA POS (A) NEG-NEG URINALYSIS, MICROSCOPIC Collection Time: 04/24/17 9:07 PM Result Value Ref Range WBCs,UA PACKED 0 - 2 /HPF RBCs,UA PACKED 0 - 3 /HPF MucousUA TRACE Bacteria,UA MODERATE (A) NEG-NEG WBC Clumps PRESENT Squamous Epithelial Cells 10-20 0 - 5 CULTURE-URINE W/SENSITIVITY Collection Time: 04/24/17 9:07 PM Result Value Ref Range Battery Name URINE CULTURE Specimen Description URINE, CLEAN CATCH Special Requests NONE Culture NO GROWTH TO DATE Report Status POC GLUCOSE Collection Time: 04/24/17 9:36 PM Result Value Ref Range Glucose, POC 287 (H) 70 - 100 MG/DL POC GLUCOSE Collection Time: 04/25/17 1:43 AM Result Value Ref Range Glucose, POC 295 (H) 70 - 100 MG/DL URIC ACID Collection Time: 04/25/17 5:15 AM Result Value Ref Range Uric Acid 4.4 2.0 - 7.0 MG/DL PROTIME INR (PT) Collection Time: 04/25/17 5:15 AM Result Value Ref Range INR 2.0 (H) 0.8 - 1.2 PTT (APTT) Collection Time: 04/25/17 5:15 AM Result Value Ref Range APTT 28.8 21.0 - 39.0 SEC PHOSPHORUS Collection Time: 04/25/17 5:15 AM Result Value Ref Range Phosphorus 3.9 2.0 - 4.0 MG/DL FIBRINOGEN Collection Time: 04/25/17 5:15 AM Result Value Ref Range Fibrinogen 601 (H) 200 - 400 MG/DL POC GLUCOSE Collection Time: 04/25/17 5:25 AM Result Value Ref Range Glucose, POC 267 (H) 70 - 100 MG/DL LDH-LACTATE DEHYDROGENASE Collection Time: 04/25/17 7:34 AM Result Value Ref Range Lactate Dehydrogenase 734 (H) 100 - 210 U/L MAGNESIUM Collection Time: 04/25/17 7:34 AM Result Value Ref Range Magnesium 2.1 1.6 - 2.6 mg/dL COMPREHENSIVE METABOLIC PANEL Collection Time: 04/25/17 7:34 AM Result Value Ref Range Sodium 131 (L) 137 - 147 MMOL/L Potassium 4.7 3.5 - 5.1 MMOL/L Chloride 104 98 - 110 MMOL/L Glucose 225 (H) 70 - 100 MG/DL Blood Urea Nitrogen 32 (H) 7 - 25 MG/DL Creatinine 1.82 (H) 0.4 - 1.00 MG/DL Calcium 7.8 (L) 8.5 - 10.6 MG/DL Total Protein 5.8 (L) 6.0 - 8.0 G/DL Total Bilirubin 0.7 0.3 - 1.2 MG/DL Albumin 2.5 (L) 3.5 - 5.0 G/DL Alk Phosphatase 33 25 - 110 U/L AST (SGOT) 19 7 - 40 U/L CO2 20 (L) 21 - 30 MMOL/L ALT (SGPT) 6 (L) 7 - 56 U/L Anion Gap 7 3 - 12 eGFR Non 29 (L) >60 mL/min eGFR 35 (L) >60 mL/min CBC AND DIFF Collection Time: 04/25/17 7:34 AM Result Value Ref Range White Blood Cells 77.1 (HH) 4.5 - 11.0 K/UL RBC 2.01 (L) 4.0 - 5.0 M/UL Hemoglobin 6.9 (L) 12.0 - 15.0 GM/DL Hematocrit 19.9 (L) 36 - 45 % MCV 99.2 80 - 100 FL MCH 34.4 (H) 26 - 34 PG MCHC 34.7 32.0 - 36.0 G/DL RDW 25.2 (H) 11 - 15 % Platelet Count 28 (L) 150 - 400 K/UL MPV 9.6 7 - 11 FL Nucleated RBCs 1 K/UL Segmented Neutrophils 8 (L) 41 - 77 % Bands 5 0 - 10 % Lymphocytes 9 (L) 24 - 44 % Monocytes 13 (H) 4 - 12 % Metamyelocyte 1 % Myelocyte 4 % Other Cells 60 % POLY PRESENT Ovalocyte PRESENT Platelet Estimate MKD DEC Absolute Neutrophil Count Manual 10.03 (H) 1.8 - 7.0 K/UL FIBRINOGEN Collection Time: 04/25/17 7:34 AM Result Value Ref Range Fibrinogen 542 (H) 200 - 400 MG/DL POC GLUCOSE Collection Time: 04/25/17 8:21 AM Result Value Ref Range Glucose, POC 226 (H) 70 - 100 MG/DL POC GLUCOSE Collection Time: 04/25/17 10:17 AM Result Value Ref Range Glucose, POC 215 (H) 70 - 100 MG/DL Glucose: (!) 225 (04/25/17 0734) POC Glucose (Download): (!) 215 (04/25/17 1017) Radiology and Other Diagnostic Procedures Review: Pertinent radiology reviewed. Associated attestation - Dipesh Baird MD - 04/25/2017 6:21 PM CDT Formatting of this note may be different from the original. MICU STAFF NOTE This note is an attestation for the resident/fellow note dated today. I have seen, personally fully evaluated, and discussed patient with the Medical ICU team. I agree with the objective findings and agree with the plan of care as documented by the resident with the exceptions noted. 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) Thrombocytopenia (HCC) SAVANAH (acute kidney injury) (HCC) Acute cystitis without hematuria Sepsis (HCC) Coagulopathy (HCC) Chronic atrial fibrillation (HCC) Protein-calorie malnutrition (HCC) I spent 35 minutes (excluding time spent performing or supervising any procedures) providing and personally directing critical care services including: Systems review and physical examination Serial evaluation of hemodynamic data Serial evaluation of respiratory status Review and management of ICU prophylaxis and core measures Review of laboratory data Review of telemetry data Review of imaging studies Review of medications Fluid and electrolyte management Brought to MICU for high risk of decompensation during hydroxyurea treatment. Already with SAVANAH, and coagulopathy due to both thrombocytopenia and anticoagulation. Holding epixaban. Watching closely for hyperphosphatemia, hyperkalemia. Has already had one dose of rasburicase and is on allopurinol. Rxing UTI with cefipime. Also is coughing, with purulent appearing sputum. Cardiac silhouette has distinctly water bottle shape, but echo shows no evidence of pericardial effusion. Staff name: Dipesh Baird MD Date: 04/25/2017 * Alisha Gregorio MD - 04/24/2017 1:51 AM CDT Formatting of this note may be different from the original. BMT H&P Giselle Moraes Admission Date: 04/24/2017 Assessment/Plan Assessment/Plan: Giselle Moraes is a 56 y.o. female with A-fib on Apixaban, DM with neuropathy, CKD, recurrent UTI, h/o kidney stones, Arthritis, Gout, Anxiety who has been transferred from [facility] for suspicious of acute leukemia. At , WBC=7.2, Hgb=7.2, PLT 43, PT=2.4, APTT 27.7, Hkrlfryixp=755 Cr=1.57, UA=8.2 Peripheral smear reviewed - Numerous blasts seen Impression: Monocytic AML PLAN: - Cefepime and Vanc for UTI - Will check C. Diff - Will follow BCx, & UCx - Will obtain ECHO - Started PPx ABx : acyclovir, Micafungin - NS + D5 at 100cc/hr. With evidence of cardiomegaly on CXR, will closely monitor with fluids - UA=8.1 upon admission: Rasburicase 3mg once & allopurinol 100mg qD (Cr=1.57) - BMx in AM if indicated A-fib - Continue home med: Dilt, Atenolol - Holding Apixaban for PLT of 30s DM - SSI for DM for now. Holding home DM meds Full Code Zayda Willingham MD Page [phone] Subjective HIP: Giselle Moraes is a 56 y.o. female with A-fib on Apixaban, DM with neuropathy, CKD, recurrent UTI, h/o kidney stones, Arthritis, Gout, Anxiety who has been transferred from [facility] for suspicious of acute leukemia. Pt has recurrent UTI and has been on multiple antibiotics in the past. The current episode of fatigue and dysuria started about a week ago. She was put on Macrolid and Pyridium (has been on this for 2 weeks. She was told to continue until the box is empty). PCP called her last night, notifying her that "E. Coli has been cultured" (source of the specimen unknown). She called urologist who told her to stop taking Macrolid and call urology if her symptoms get worse. She continued to feel fatigued and in general not doing well, which prompted her to go to the local ED ([facility]). At the OSH, she was found to have WBC of 52.9K. Hgb=6.2. She was given Ceftriaxone and NS at OSH and was transferred to for further workup of suspected AML. Glu=46 upon arrival. D50 given and a repeat Qto=725. Pt reports F/C, mild SOB, Wt loss of 64 lb over a year, night sweats, some cough with greenish sputum production, watery diarrhea Reveiw of Systems: Constitutional: + fatigue, fevers, chills, sweats/diaphoesis, maliase, anorexia , appetite change, weight change (loss) HEENT: Negative Respiratory: +cough, sputum, mild SOB Cardiovascular: Negative for chest pain, chest pressure, palpitations, edema in extremeties Gastrointestional: + watery diarrhea Gernitourinary: + dysuria Musculoskeletal:Negative Skin: Negative Pysch: + anxiety PMH: - A-fib on Apixaban - DM with neuropathy - CKD - recurrent UTI - h/o kidney stones - Arthritis - Gout - Anxiety SHx: - Denies smoking, EtOH, illegal drug use Home meds: Alprazolam 1mg PO BID Atenolol 50mg PO BID Apixaban 5 mg PO BID Folic acid 0.4 mg tab qHS Furosemide 40 mg PO every other day Glimepiride 4 mg qD Vitamin B12 5000 mcg/1 ml 0.33 ml SL drop qD Diltiazem 240 mg qD Mg oxide 400 mg tab qD KCl 10 mEq qD Docusate 100 mg qD Glimepiride 4 mg PO qD Oxybutynin 10 mg qD Ascorbic acid 10mg qD Allergy : Iodine contrast Nsaids Sulfamethoxazole Trimethoprim Ciprofloxacin Levofloxacin Objective Physical Exam: Vital Signs Vital Signs: Last Filed Vital Signs: 24 Hour Range BP: 113/55 (04/24 58) Temp: 36.7 C (98.1 F) (04/24 58) Pulse: 64 (04/24 58) Respirations: 24 PER MINUTE (04/24 58) SpO2: 97 % (04/24 58) O2 Delivery: Nasal Cannula (04/24 58) BP: (113)/(55) Temp: [36.7 C (98.1 F)] Pulse: [64] Respirations: [24 PER MINUTE] SpO2: [97 %] O2 Delivery: Nasal Cannula Intensity Pain Scale 0-10 (Pain 1): (not recorded) Intake/Output Summary: (Last 24 hours) No intake or output data in the 24 hours ending 04/24/17 0152 General: awake & oriented, no acute distress, appears stated age, Morbidly obese HENT: normocephalic, atraumatic, non-icteric, clear conjunctivae, no adenolymphopathy Eyes: Conjunctuvae clear. PERRL, EOMs intact. CV: S1, S2, regular rhythm and rate, no murmur, click, rub Lungs: clear to ausculation bilaterally, non-labored Abdomen: Obese abdomen, soft, non-tender, non-distended, normo-active bowel sounds Extremities: no edema, cyanosis, pulses Skin: Warm & dry. Skin color, turgor normal. No rahses or lesions Neuro: Alert and oriented to person, place and time. No focal deficits; normal muscle tone/strength, sensation and reflexes throughout. Coordination normal Psych: Normal mood and affect. Judgment and thought content normal. Scheduled Meds: Continuous Infusions: dextrose 5 % & 0.9% NaCl infusion 100 mL/hr at 04/24/17 0147 PRN and Respiratory Meds: Lab/Radiology/Other Diagnostic Tests: Labs: Results for orders placed or performed during the hospital encounter of (from the past 24 hour(s)) POC GLUCOSE Collection Time: 04/24/17 1:33 AM # # Low-High Glucose, POC 46 (LL) 70 - 100 MG/DL UA at OSH: Protein +3 Leukocyte esterase +3 RBC +5 RBC > 100 WBC TNTC Large bacteria Hematology: Lab Results Component Value Date HGB 7.2 04/24/2017 HCT 20.9 04/24/2017 PLTCT 43 04/24/2017 WBC 58.2 04/24/2017 ANC 6.40 04/24/2017 LYMPH 9 04/24/2017 MCV 103.4 04/24/2017 MCHC 34.4 04/24/2017 MPV 10.2 04/24/2017 RDW 19.8 04/24/2017 , Coagulation: Lab Results Component Value Date PTT 27.7 04/24/2017 INR 2.4 04/24/2017 , General Chemistry: Lab Results Component Value Date NA 135 04/24/2017 K 3.8 04/24/2017 CL 103 04/24/2017 GAP 9 04/24/2017 BUN 30 04/24/2017 CR 1.57 04/24/2017 GLU 164 04/24/2017 CA 8.2 04/24/2017 ALBUMIN 2.8 04/24/2017 MG 2.1 04/24/2017 TOTBILI 0.5 04/24/2017 , Enzymes: Lab Results Component Value Date AST 27 04/24/2017 ALT 6 04/24/2017 ALKPHOS 35 04/24/2017 , Cardiac markers: No results found for: TNI, CKMB, MYOGLB and Mg and PO4: Lab Results Component Value Date MG 2.1 04/24/2017 Radiology: OSH CXR - Cardiomegaly. No acute abnormalities. Zayda Willingham MD # [id number] ATTESTATION I personally have seen and examined the patient. I discussed the case with fellow. I personally reviewed the history, laboratory and records and Path data as well as imaging studies from the PACS system as currently avilable. I discussed the case with fellow and concur with the documentation of history, physical exam, assessment, and treatment plan. The content of this consult was modified by me where necessary. Staff name: Alisha Gregorio MD Date: 04/24/2017 in this encounter Consult Notes * Emily Pittman, NEVA - 05/18/2017 9:48 AM CDT Associated Order(s): CONSULT DIABETES NURSE EDUCATOR INPATIENT DIABETES EDUCATION TEAM [facility] Reason for Consult: Home glucose monitoring, lifestyle modifications, "needs meters" Discussed Consult with Primary Team: Dr. Caba, Endocrinology Primary Team is responsible for placing orders Patient may benefit from: prescription for home glucometer, hypoglycemia education, CHO counting education Met with Giselle Moraes to discuss diabetes management. Pt was transferred from [facility] for suspicion of acute leukemia. Endocrinology was consulted for recurrent hypoglycemia. Pt reports she was diagnosed with diabetes "not long ago" by her PCP. Pt assumes less than 5 years ago. Pt was initially treated with metformin, but was transitioned to glimepiride r/t kidney function declining at the time. Pt reports in the ED here, she had her first "glucose attack", had to have nurses hold head up to drink orange juice. Pt reports that evening is "kind of a blur" . Discussed home glucose monitoring. Pt reports she had a One Touch meter given to her by her PCP at diagnosis, but was instructed she didn't need to check blood sugars unless "feeling off". Pt may benefit from new glucometer for home use. Demonstrated use of One Touch Verio Flex meter to patient; patient able to verbalize understanding. Please provide scripts upon d/c below. Reviewed diabetes disease process. Discussed glimepiride: mechanism of action, s/s hypoglycemia, and discussed dosage will likely be decreased on discharge (per Dr. Caba at bedside) . Reviewed hypoglycemia and hyperglycemia signs and symptoms; explained to patient that these symptoms are similar and that the patient will need to check his blood glucose level if he develops any of these symptoms to know for sure if his bood glucose level is high or low. Reviewed blood glucose goals (70-140 fasting and before meals, up to 180 randomly). Discussed ADA diet: pt reports she has received basic nutritional education, but would appreciate a refresher and additional education. Discussed CHO counting, recommended 3 meals <60 g CHO, 1 snack <30g CHO, portion sizes, and reading nutritional labels. Pt had received nutritional counseling from her PCP' s "email marketing assistant" (likely [place] ppap coordinator?) and had some questions regarding what she was taught. Pt had questions regarding portion sizes, especially fruits. Pt states "She told me I couldn't eat any potatoes or carbs anymore" and "I was told to limit my fruit to a few grapes or strawberries". Educated pt not to eliminate CHOs completely as doing so may cause hypoglycemia. It is more appropriate to pay close attention to serving sizes and CHO counting. Discussed appropriate portion sizes that are around 15g CHO (1/2 cup grapes, 1 apple, 1 cup melon, etc ). Pt very appreciative of education. Provided written handouts. Pt follows with PCP back home for diabetes management. Please provide patient with the following prescriptions at discharge: ENTER THE ORDER NUMBER BELOW IN RED. Do not select by the blue product names. Include on each script the type of diabetes, uncontrolled or controlled, requiring insulin or oral hypoglycemics. Blood glucose meter (One Touch Verio Flex) Verio Flex 210206 Verio IQ test strips blood sugar diagnostic (ONE TOUCH VERIO) test strip [id number] Test as directed. Dispense number needed/mo. Delica lancets #100 per box (for use with One Touch Delica Lancet). [id number] Appreciate the consult. Please contact diabetes educators with any additional questions or concerns. mEily PittmanILIRN, BS, RN, CPT Dinner Cook Office: [phone] Pager: [phone] Diabetes Education Team Pager: [phone] Diabetes Team Office: [phone] * Liz Uriostegui MD - 05/10/2017 4:50 PM CDT Associated Order(s): CONSULT DERMATOLOGY PHYSICIAN Formatting of this note may be different from the original. Date of Consult: 05/10/2017 Date of Admission: 04/24/2017 Reason for Consult: Rash on face and brown lesion on right cheek Assessment/Plan: 1. Acne rosacea - discussed diagnosis, etiology,prognosis, and treatment options with patient - discussed benign nature - recommend sun protection daily with spf 30, broad spectrum, zinc based - recommend avoiding triggers such as spicy foods, sunlight, alcohol - recommend starting a pea sized amount of Rx tretinoin 0.025% 2-3 nights/week to face. Apply over thin layer of cerave lotion if causing too much dryness 2. Lentigo/dermatoheliosis -reassurance of benign nature -recommend sun protection daily with spf 30, broad spectrum, zinc based -if lesion rapidly grows, changes size, shape, or color recommend re-evaluation at this time and to consider skin biopsy at this time. Today lesion appears benign. Patient seen and discussed with Dr. Liz Uriostegui HPI: Pt admitted with recently diagnosed AML. Regarding her skin, she reports several year history of red rash on face with occasional acne like bumps that come and go. Rash does not bother her. She admits to favoring right side when she sleeps. She has treated with a topical retinoid in the past. No other prior treatments. No rash any where else on her body. Patient also reports she has had a brown spot on her right cheek for years. Not symptomatic,growing, changing size,shape, or color. Lesion does not bother pt. PMH: Past Medical History: Diagnosis Date Arthritis CKD (chronic kidney disease) DM (diabetes mellitus) (HCC) Gout Hypertension Kidney stones Neuropathy (HCC) hand / feet due to DM Meds: acyclovir (ZOVIRAX) tablet 800 mg 800 mg Oral BID atenolol (TENORMIN) tablet 25 mg 25 mg Oral QDAY cefepime (MAXIPIME) 2 g/100 ml iso-osmotic IVPB 2 g Intravenous Q8H* [START ON 05/11/2017] cytarabine PF (CYTOSAR) injection (IT) 100 mg 100 mg Intrathecal ONCE diltiazem CD (cardIZEM CD) capsule 240 mg 240 mg Oral QDAY insulin aspart (NOVOLOG FLEXPEN) injection PEN 0-14 Units 0-14 Units Subcutaneous ACHS insulin aspart (NOVOLOG FLEXPEN) injection PEN 7 Units 7 Units Subcutaneous TID w/ meals insulin glargine (LANTUS SOLOSTAR) injection PEN 12 Units 12 Units Subcutaneous QDAY(12) [START ON 05/11/2017] LORazepam (ATIVAN) tablet 0.5 mg 0.5 mg Oral ONCE micafungin (MYCAMINE) 50 mg in sodium chloride 0.9% (NS) 105 mL IVPB 50 mg Intravenous Q24H* polyethylene glycol 3350 (MIRALAX) packet 17 g 1 packet Oral QDAY senna (SENOKOT) tablet 1 tablet 1 tablet Oral BID acetaminophen Q6H PRN, ALPRAZolam BID PRN, alteplase PRN (Compliance Representative from Rx), hydrOXYzine TID PRN, loperamide PRN, LORazepam Q6H PRN, LORazepam injection Q6H PRN, magnesium sulfate 4 g/50 mL PRN, milk of magnesia (CONC) Q6H PRN, potassium chloride PRN (Compliance Representative from Rx) OR potassium chloride SR PRN (Compliance Representative from Rx), saliva, synthetic PRN, sodium chloride 0.9% irrigation bottle PRN Allergies: Allergies Allergen Reactions Ciprofloxacin SEE COMMENTS Per Nephrology doctors. Levofloxacin SEE COMMENTS Per nephrology doctors. Nsaids (Non-Steroidal Anti-Inflammatory Drug) SEE COMMENTS Per nephrology doctors. Bactrim [Sulfamethoxazole-Trimethoprim] SEE COMMENTS Per Nephrology Doctors. Contrast Dye Iv, Iodine Containing [Iodinated Contrast- Oral And Iv Dye] SEE COMMENTS Per nephrology doctors. PE: Areas Examined (all normal unless noted below): Head/Face Neck Chest Right upper extremity Left upper extremity Pertinent findings include: ill-defined Hyperpigmented patch overlying skin colored to yellow subcutaneous coalescing papules on the right cheek; well-healed biopsy site located in center. Red-rebecca non-blanching scattered papules on the right cheek [place]-red clustered papules on the right muslim Telangiectasias on the left cheek Maritza Adkins M.D. PGY-4 Division of Dermatology ATTESTATION I personally performed the carrizales portions of the E/M visit, discussed case with resident and concur with resident documentation of history, physical exam, assessment, and treatment plan unless otherwise noted. Staff name: Liz Uriostegui MD Date: 05/11/2017 * Justin Martinez, - 05/03/2017 1:08 PM CDT Associated Order(s): CONSULT ONCO-PSYCHOLOGY BMT Inpatient Onco-Psychology Consult / Progress Note Date of Service: 05/03/17 Time of Service: 1308 Location of Service: [id number] Consult/Referral Source: Tonny Kenny APRN Illness/Transplant History: Patient was diagnosed with AML. Presenting Concern: Ms. Moraes indicated that she was referred to the onco- psychology team because of her history of anxiety. Despite being hospitalized, she denied experiencing a significant change in her levels of anxiety. She reported that her current level of anxiety is not distressing. She indicated that her primary concern was increasing neuropathy in her extremities. She reported that it has become much worse in the past couple of days. She reported that she cannot complete tasks she once found possible. She indicated that individuals push her to do activities that combat the neuropathy, but reported that sometimes she cannot. She indicated that she does not like disappointing other people. Mental Status: Patient oriented X3. Presented with good eye contact and cooperative relational pattern. Attention, speech, motor, thought processes, and thought content all within the normal range. Mood was euthymic with affect consistent with mood and session content. No suicidal or homicidal ideation endorsed. Insight and judgment good with intact impulse control. Intervention: Ms. Moraes reported having a supportive social network. She indicated that she is close to her , her children, the women in her sabianism group, and her sabianism. Furthermore, she identified her marivel and Zeeshan has supports. During the session we discussed the importance of reaching out to her support group. Additionally, we discussed that she is in the position to tell other people that she needed some space when asked to complete tasks. Furthermore that she did not have to feel like a disappointment to other people when she cannot complete tasks. Diagnostic Impression: No diagnosis Plan of Care: Ms. Moraes indicated that is not experiencing acute symptoms of anxiety. She indicated that her anxiety is under control and manageable. She reported that she would reach out to the onco-psychology team if any anxiety or other psychological symptoms arise. Justin Martinez M.S. Tip Finisher [phone] Associated attestation - Rach Rutledge, PhD - 05/04/2017 9:07 AM CDT I reviewed the case with the athletic training internship, and agree with the conclusions and treatment plan. Rach Rutledge, PhD Licensed Psychologist Onco-Psychology Program Pager [phone] * Linh Lewis MBBS - 04/24/2017 2:34 PM CDT Associated Order(s): CONSULT ENDOCRINOLOGY PHYSICIAN Formatting of this note may be different from the original. 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 Hypoglycemia is recurrent in spite of D5 normal saline drip. Recurrent UTI Acute leukemia A. fib CKD stage III Recommendations: Recurrent hypoglycemia appears to be related to glimepiride. With her CKD, sulfonylureas can get accumulated in the system and cause recurrent hypoglycemia. It may take a couple days for sulfonylureas to eliminate from the system. It is possible that patient was having these episodes even at home but she did not know that it was because of hypoglycemia. No insulin for now. We agree with D5 normal saline drip. We will start her on octreotide 100 mcg 3 times a day for 24 hours, to decrease insulin release from pancreas in response to sulfonylureas. Check fingerstick glucose every 4 hours for now. We will assess response tomorrow and make recommendations. Thanks for the consult, we will continue to follow. Patient was seen and discussed with Dr. Patel. History of Present Illness Giselle Moraes is a 56 y.o. female with past medical history of A. fib, type 2 diabetes, CKD stage III, UTI, anxiety was admitted for suspicion for acute leukemia. Endocrinology was consulted for recurrent hypoglycemia. Patient says she was diagnosed with diabetes many years back. She was initially on metformin. However this was discontinued and she was started on glimepiride. Medications prior to admission was glimepiride 4 mg once daily. Her last dose was yesterday morning. Patient states she has been struggling with recurrent UTI. However, she was eating all right. No nausea or vomiting. At home she was having episodes where she would get sweaty, shaky, cold. She does not know what was causing these episodes and she does not check blood sugar at home. She does not remember what her last hemoglobin A1c was. She was seeing a primary care physician for diabetes. Her diabetes is complicated with nephropathy and peripheral neuropathy. No history of coronary artery disease, stroke. She has never been on insulin. Since she has been here she has not eaten much. Appetite is not great. No nausea or vomiting. She has had multiple episodes of hypoglycemia. Overnight she was started on D5 normal saline. However she continues to have hypoglycemia. Estimated Creatinine Clearance: 57.5 mL/min (based on Cr of 1.57). 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 No pertinent family history. Allergies Allergies Allergen Reactions Ciprofloxacin SEE COMMENTS Per Nephrology doctors. Levofloxacin SEE COMMENTS Per nephrology doctors. Nsaids (Non-Steroidal Anti-Inflammatory Drug) SEE COMMENTS Per nephrology doctors. Bactrim [Sulfamethoxazole-Trimethoprim] SEE COMMENTS Per Nephrology Doctors. Contrast Dye Iv, Iodine Containing [Iodinated Contrast- Oral And Iv Dye] SEE COMMENTS Per nephrology doctors. Review of Systems A comprehensive 14-point review of systems was negative with exception of: Fatigue, feeling cold, shaky Medications Scheduled Meds: acyclovir (ZOVIRAX) tablet 800 mg 800 mg Oral BID allopurinol (ZYLOPRIM) tablet 100 mg 100 mg Oral QDAY atenolol (TENORMIN) tablet 50 mg 50 mg Oral BID cefepime (MAXIPIME) 2 g/100 ml iso-osmotic IVPB 2 g Intravenous Q12H* diltiazem CD (cardIZEM CD) capsule 240 mg 240 mg Oral QDAY micafungin (MYCAMINE) 50 mg in sodium chloride 0.9% (NS) 105 mL IVPB 50 mg Intravenous Q24H* oxybutynin XL (DITROPAN XL) tablet 10 mg 10 mg Oral QDAY SODIUM CHLORIDE 0.9 % IR SOLN (Cabinet Override) NOW SODIUM CHLORIDE 0.9 % IV SOLP (Cabinet Override) NOW vancomycin (VANCOCIN) 1,500 mg in dextrose 5% (D5W) IVPB 1,500 mg Intravenous Q24H* Continuous Infusions: dextrose 5 % & 0.9% NaCl infusion 100 mL/hr at 04/24/17 0147 PRN and Respiratory Meds:ALPRAZolam BID PRN, alteplase PRN (Compliance Representative from Rx), [ START ON 04/25/2017] fentaNYL citrate PF Once PRN, [START ON 04/25/2017] LORazepam Once PRN, milk of magnesia (CONC) Q6H PRN, sodium chloride 0.9% irrigation bottle PRN Physical Examination Vital Signs: Last Vital Signs: 24 Hour Range BP: 114/54 (04/24 1335) Temp: 36.9 C (98.5 F) (04/24 1335) Pulse: 94 (04/24 1335) Respirations: 20 PER MINUTE (04/24 1335) SpO2: 96 % (04/24 1335) O2 Delivery: Nasal Cannula (04/24 1335) Height: 170.2 cm (67") (04/24 728) BP: (113-123)/(54-66) Temp: [36.7 C (98.1 F)-37.9 C (100.3 F)] Pulse: [64-100] Respirations: [20 PER MINUTE-24 PER MINUTE] SpO2: [96 %-99 %] O2 Delivery: Nasal Cannula General appearance: alert, oriented, fatigued HENT: Dry oral mucosa, dried blood on lips Eyes: PERRL, EOM grossly intact Neck: supple, Lungs: no wheezing, rhonchi, rales appreciated Heart: Regular rhythm, reg rate, with no murmur, rub, gallop Abdomen: soft, non-tender, non-distended, normoactive bowel sounds, Ext: No clubbing, cyanosis or edema Skin: no rashes/lesions Lab Review Point of Care Testing (Last 24 hours) Glucose: (!) 164 (04/24/17 0155) POC Glucose (Download): 97 (04/24/17 1340) Recent Labs 04/24/17 0155 NA 135* K 3.8 CL 103 CO2 23 GAP 9 BUN 30* CR 1.57* GLU 164* CA 8.2* ALBUMIN 2.8* MG 2.1 PO4 3.8 Recent Labs 04/24/17 0155 WBC 58.2* HGB 7.2* HCT 20.9* PLTCT 43* INR 2.4* PTT 27.7 AST 27 ALT 6* ALKPHOS 35 Estimated Creatinine Clearance: 57.5 mL/min (based on Cr of 1.57). Vitals: 04/24/17 0320 04/24/17 0728 Weight: (!) 140.9 kg (310 lb 10.1 oz) (!) 140.9 kg (310 lb 10.1 oz) Thyroid Studies No results found for: TSH, FREET4, FREEINDEX No results found for: FREET3, [id number], THYBINDGLB Linh Lewis MD Endocrinology Fellow PGY-5 Associated attestation - Adeola Patel MD - 04/24/2017 3:07 PM CDT Formatting of this note may be different from the original. ATTESTATION I personally performed the carrizales portions of the E/M visit, discussed case with resident and concur with resident documentation of history, physical exam, assessment, and treatment plan unless otherwise noted. Staff name: Adeola Patel MD Date: 04/24/2017 I have spoken to the nurse we will get the get the octreotide stat. She currently does not have IV access. * Tez Fajardo MD - 04/24/2017 1:33 PM CDT Associated Order(s): CONSULT NEPHROLOGY PHYSICIAN Formatting of this note may be different from the original. Impression: 1. SAVANAH - suspect mild SAVANAH on stage III CKD - BUN/Cr elevated; suspected baseline of 1.2 and current Cr of 1.5 - may have a pre-renal component present - currently on IVF - lytes are not significantly altered at this time despite WBC of >50 2. CKD - stage III disease 3. Leukocytosis - suspect AML; w/u for definitive dx ongoing 4. UTI - outside urine with + WBC and nitrites - placed on Vanco and Cefepime here, along with micafungin 5. Obesity 6. Hyperuricemia - mild; currently around 8; likely due to AML, but does have a dx of gout at baseline Plan: Consider d/c of Vanco unless clear indication - pt is high risk for nephrotoxicity Agree with IVF Will need to monitor uric acid, K, Ca and phos closely if chemotherapy is initiated Renal dosing on all meds Accurate I/O, daily standing weights Send UA w/ urine culture Hold outpatient lasix and KCl for now Staff name: Tez Fajardo MD Date: 04/24/2017 Reason for consult: CKD HPI: 56 y/o F w/ h/o obesity, gout, nephrolithiasis, DM and stage III CKD who presents with increasing fatigue and dizziness and was found to have a WBC >50, 000 and a peripheral smear demonstrating numerous blasts. She was admitted for a suspicion of acute leukemia and is currently undergoing further w/u to determine if leukemia is in fact present. The patient was noted to have a Cr of 1.5 on admission; she is unsure of her baseline Cr, but outside records revealed a Cr of 1.2 approximately 1 year ago. She follows with a extractor loader and unloader in [place], Dr. Mai. She reports recently being diagnosed with a UTI and received abx therapy for this disorder; her urinary sxs resolved with abx. She otherwise denies recent urinary changes. ROS: General: + fatigue, dizziness HEENT: Negative Heme: + bruising Respiratory: Negative CV: Negative GI: mild swelling : Recent UTI MS: Negative Skin: Negative WIRE BRUSHER: Negative Allergic/Immunological: Negative Endocrine: Negative Psych: Negative Past Medical History: Past Medical History: Diagnosis Date Arthritis CKD (chronic kidney disease) DM (diabetes mellitus) (HCC) Gout Hypertension Kidney stones Neuropathy (HCC) hand / feet due to DM Past Surgical History: Procedure Laterality Date FOOT FRACTURE SURGERY Right 2008 right HX JOINT REPLACEMENT Right 2009 right knee HX SECTION Social History: Social History Social History Marital status: Spouse name: N/A Number of children: N/A Years of education: N/A Social History Main Topics Smoking status: Never Smoker Smokeless tobacco: Never Used Alcohol use No Drug use: No Sexual activity: Not Asked Other Topics Concern None Social History Narrative None Family History: History reviewed. No pertinent family history. Blood pressure 123/60, pulse 93, temperature 37.4 C (99.4 F), height 170.2 cm (67"), weight (!) 140.9 kg (310 lb 10.1 oz), SpO2 99 %. Intake/Output Summary (Last 24 hours) at 04/24/17 1333 Last data filed at 04/24/17 1042 Gross per 24 hour Intake 1640 ml Output 700 ml Net 940 ml EXAM: GENERAL: A&Ox3, NAD HEENT: Sclera anict, MM dry with crusted blood on lips CV: Irreg rhythm, slight tachy LUNGS: CTAB ABD: Obesity, soft, NT, ND EXT: No cyanosis/clubbing; trace edema SKIN: No rashes; + bruising MS: No joint swelling or tenderness Phosphorus Date Value Ref Range Status 04/24/2017 3.8 2.0 - 4.0 MG/DL Final Magnesium Date Value Ref Range Status 04/24/2017 2.1 1.6 - 2.6 mg/dL Final Uric Acid Date Value Ref Range Status 04/24/2017 8.1 (H) 2.0 - 7.0 MG/DL Final CBC w/Diff Lab Results Component Value Date/Time WBC 58.2 (HH) 04/24/2017 01:55 AM RBC 2.02 (L) 04/24/2017 01:55 AM HGB 7.2 (L) 04/24/2017 01:55 AM HCT 20.9 (L) 04/24/2017 01:55 AM MCV 103.4 (H) 04/24/2017 01:55 AM MCH 35.6 (H) 04/24/2017 01:55 AM MCHC 34.4 04/24/2017 01:55 AM RDW 19.8 (H) 04/24/2017 01:55 AM PLTCT 43 (L) 04/24/2017 01:55 AM MPV 10.2 04/24/2017 01:55 AM Lab Results Component Value Date/Time ANC 6.40 04/24/2017 01:55 AM Comprehensive Metabolic Profile Lab Results Component Value Date/Time NA 135 (L) 04/24/2017 01:55 AM K 3.8 04/24/2017 01:55 AM CL 103 04/24/2017 01:55 AM CO2 23 04/24/2017 01:55 AM GAP 9 04/24/2017 01:55 AM BUN 30 (H) 04/24/2017 01:55 AM CR 1.57 (H) 04/24/2017 01:55 AM GLU 164 (H) 04/24/2017 01:55 AM Lab Results Component Value Date/Time CA 8.2 (L) 04/24/2017 01:55 AM PO4 3.8 04/24/2017 01:55 AM ALBUMIN 2.8 (L) 04/24/2017 01:55 AM TOTPROT 6.5 04/24/2017 01:55 AM ALKPHOS 35 04/24/2017 01:55 AM AST 27 04/24/2017 01:55 AM ALT 6 (L) 04/24/2017 01:55 AM TOTBILI 0.5 04/24/2017 01:55 AM GFR 34 (L) 04/24/2017 01:55 AM GFRAA 41 (L) 04/24/2017 01:55 AM * Dipesh Bai MD - 04/24/2017 12:43 PM CDT Associated Order(s): CONSULT CARDIOLOGY PHYSICIAN Formatting of this note may be different from the original. [facility] Admission Date: 04/24/2017 Code Status: Full Code Assessment 1. AML. A. 04/24/2017 peripheral smear showed AML with 38% blasts. 2. 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 3. Mild to moderate . A. 04/24/2017 Echo EF 60%, mild LVH, RV nl, trace TR, mild to moderate , velocity varied from 2.5 to 3.4 m/s, mean gradients varied from 16-20 mmHg, no AI, peak PAP 29 mmHg, no pericardial effusion. 4. DM. 5. Neuropathy. 6. CKD. 7. Nephrolithiasis. 8. UTI on IV Abx. 9. OA. 10. Gout. 11. Obesity. 12. Likely MORENA, but did not tolerate sleep study. 13. History of sepsis. 14. Anxiety. 15. Anemia. 16. Thrombocytopenia. 17. Episodes of hypoglycemia. Plan Vital signs are stable, but has mild RVR at times. . Her echocardiogram was reviewed above. She is not having any anginal symptoms. She is on broad-spectrum coverage with Maxipime, micafungin, and vancomycin. Her current cardiac regimen includes atenolol 50 mg twice daily, and diltiazem 240 mg daily. 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 Not a good candidate for AC currently. Rates have been fast. I think we will increase her atenolol to 75 mg BID. I will given additional 25 mg now, and she can start the 75 mg BID tonight. Will follow up with her tomorrow. Reason for Consultation AF History of Present Illness This is a 56 y.o. female patient transferred with likely AML. She has the history noted above. She has chronic 3 pillow orthopnea. She has dyspnea. She denies having chest pain, PND, lower extremity edema, palpitations, syncope , presyncope, claudication, TIA, or CVA type symptoms. Complete remainder of review of symptoms is negative and/or normal except as documented below. Past Medical History Past Medical History: Diagnosis Date Arthritis CKD (chronic kidney disease) DM (diabetes mellitus) (HCC) Gout Hypertension Kidney stones Neuropathy (HCC) hand / feet due to DM Social History Social History Social History Marital status: Spouse name: N/A Number of children: N/A Years of education: N/A Occupational History Not on file. Social History Main Topics Smoking status: Never Smoker Smokeless tobacco: Never Used Alcohol use No Drug use: No Sexual activity: Not on file Other Topics Concern Not on file Social History Narrative No narrative on file Family History History reviewed. No pertinent family history. Home Medications Prescriptions Prior to Admission Medication Sig allopurinol (ZYLOPRIM) 100 mg tablet Take 100 mg by mouth daily. Take with food. ALPRAZolam (XANAX) 1 mg tablet Take 1 mg by mouth three times daily as needed for Anxiety. apixaban (ELIQUIS) 5 mg tablet Take 5 mg by mouth twice daily. ascorbic acid (VITAMIN C) 500 mg tablet Take 500 mg by mouth daily. atenolol (TENORMIN) 50 mg tablet Take 50 mg by mouth twice daily. CRANBERRY FRUIT EXTRACT (CRANBERRY EXTRACT PO) Take 1 tablet by mouth at bedtime daily. cyanocobalamin(+) (VITAMIN B-12) 500 mcg tablet Take 500 mcg by mouth daily. diltiazem CD (CARDIZEM CD) 240 mg capsule Take 240 mg by mouth daily. ergocalciferol (VITAMIN D-2) 50,000 unit capsule Take 1 capsule by mouth every 7 days. furosemide (LASIX) 40 mg tablet Take 40 mg by mouth every 48 hours. glimepiride (AMARYL) 4 mg tablet Take 4 mg by mouth daily with breakfast. magnesium oxide (MAG-OX) 400 mg tablet Take 400 mg by mouth daily. nitrofurantoin monohyd/m-cryst (MACROBID) 100 mg capsule Take 100 mg by mouth daily. Take with food. oxybutynin XL (DITROPAN XL) 10 mg tablet Take 10 mg by mouth daily. potassium chloride SR (K-DUR) 10 mEq tablet Take 10 mEq by mouth every 48 hours. Take with a meal and a full glass of water. Current Medications acyclovir (ZOVIRAX) tablet 800 mg 800 mg Oral BID allopurinol (ZYLOPRIM) tablet 100 mg 100 mg Oral QDAY atenolol (TENORMIN) tablet 50 mg 50 mg Oral BID cefepime (MAXIPIME) 2 g/100 ml iso-osmotic IVPB 2 g Intravenous Q12H* diltiazem CD (cardIZEM CD) capsule 240 mg 240 mg Oral QDAY micafungin (MYCAMINE) 50 mg in sodium chloride 0.9% (NS) 105 mL IVPB 50 mg Intravenous Q24H* oxybutynin XL (DITROPAN XL) tablet 10 mg 10 mg Oral QDAY SODIUM CHLORIDE 0.9 % IR SOLN (Cabinet Override) NOW SODIUM CHLORIDE 0.9 % IV SOLP (Cabinet Override) NOW vancomycin (VANCOCIN) 1,500 mg in dextrose 5% (D5W) IVPB 1,500 mg Intravenous Q24H* ALPRAZolam BID PRN, alteplase PRN (Compliance Representative from Rx), [START ON 04/25/2017] fentaNYL citrate PF Once PRN, [START ON 04/25/2017] LORazepam Once PRN, milk of magnesia (CONC) Q6H PRN, sodium chloride 0.9% irrigation bottle PRN Allergies Allergies Allergen Reactions Ciprofloxacin SEE COMMENTS Per Nephrology doctors. Levofloxacin SEE COMMENTS Per nephrology doctors. Nsaids (Non-Steroidal Anti-Inflammatory Drug) SEE COMMENTS Per nephrology doctors. Bactrim [Sulfamethoxazole-Trimethoprim] SEE COMMENTS Per Nephrology Doctors. Contrast Dye Iv, Iodine Containing [Iodinated Contrast- Oral And Iv Dye] SEE COMMENTS Per nephrology doctors. Review of Systems General: fatigue and weakness Eyes: negative/normal. Ears/Nose/Throat: negative/normal. Cardiovascular: dyspnea Respiratory: negative/normal. Gastrointestinal: negative/normal. Genitourinary: dysuria Musculoskeletal: weakness Skin: negative/normal. Neurologic: negative/normal. Psychiatric: negative/normal. Endocrine: negative/normal. Heme/Lymphatic: negative/normal. Allergic/Immunologic: negative/normal. Vital Signs: Most Recent Vital Signs: 24 Hour Range BP: 123/60 (04/24 728) Temp: 37.4 C (99.4 F) (04/24 728) Pulse: 93 (04/24 728) Respirations: 20 PER MINUTE (04/24 728) SpO2: 99 % (04/24 728) O2 Delivery: None (Room Air) (04/24 728) Height: 170.2 cm (5' 7") (04/24 728) BP: (113-123)/(55-66) Temp: [36.7 C (98.1 F)-37.9 C (100.3 F)] Pulse: [64-100] Respirations: [20 PER MINUTE-24 PER MINUTE] SpO2: [97 %-99 %] O2 Delivery: None (Room Air) Vitals: 04/24/17 0320 04/24/17727 Weight: (!) 140.9 kg (310 lb 10.1 oz) (!) 140.9 kg (310 lb 10.1 oz) Intake/Output Summary (Last 24 hours) at 04/24/17 1251 Last data filed at 04/24/17 1042 Gross per 24 hour Intake 1640 ml Output 700 ml Net 940 ml Physical Exam General Appearance: mild distress, obese HEENT: EOMI, MM-moist, post OP-clear Neck: no JVD, no carotid bruits RESP: lungs CTAB, no rales, rhonchi, or wheezing Cardiac Rhythm: regular rhythm & normal rate Cardiac Auscultation: Normal S1 & S2, no S3 or S4, no rub Murmurs: 2/6 early peaking systolic murmur at the base Abdominal Exam: soft, non-tender, normal bowel sounds, no masses or bruits Liver & Spleen: no organomegaly Skin: warm & intact. No c/c, trace edema Neurologic Exam: oriented to time, place and person; no focal neurologic deficits Labs Results for orders placed or performed during the hospital encounter of (from the past 24 hour(s)) POC GLUCOSE Collection Time: 04/24/17 1:33 AM Result Value Ref Range Glucose, POC 46 (LL) 70 - 100 MG/DL CBC AND DIFF Collection Time: 04/24/17 1:55 AM Result Value Ref Range White Blood Cells 58.2 (HH) 4.5 - 11.0 K/UL RBC 2.02 (L) 4.0 - 5.0 M/UL Hemoglobin 7.2 (L) 12.0 - 15.0 GM/DL Hematocrit 20.9 (L) 36 - 45 % MCV 103.4 (H) 80 - 100 FL MCH 35.6 (H) 26 - 34 PG MCHC 34.4 32.0 - 36.0 G/DL RDW 19.8 (H) 11 - 15 % Platelet Count 43 (L) 150 - 400 K/UL MPV 10.2 7 - 11 FL Segmented Neutrophils 11 (L) 41 - 77 % Lymphocytes 9 (L) 24 - 44 % Monocytes 9 4 - 12 % Metamyelocyte 3 % Myelocyte 1 % Other Cells 67 % ANISO PRESENT POIK PRESENT POLY PRESENT Ovalocyte PRESENT Smudge Cells PRESENT Platelet Estimate MKD DEC Absolute Neutrophil Count Manual 6.40 1.8 - 7.0 K/UL COMPREHENSIVE METABOLIC PANEL Collection Time: 04/24/17 1:55 AM Result Value Ref Range Sodium 135 (L) 137 - 147 MMOL/L Potassium 3.8 3.5 - 5.1 MMOL/L Chloride 103 98 - 110 MMOL/L Glucose 164 (H) 70 - 100 MG/DL Blood Urea Nitrogen 30 (H) 7 - 25 MG/DL Creatinine 1.57 (H) 0.4 - 1.00 MG/DL Calcium 8.2 (L) 8.5 - 10.6 MG/DL Total Protein 6.5 6.0 - 8.0 G/DL Total Bilirubin 0.5 0.3 - 1.2 MG/DL Albumin 2.8 (L) 3.5 - 5.0 G/DL Alk Phosphatase 35 25 - 110 U/L AST (SGOT) 27 7 - 40 U/L CO2 23 21 - 30 MMOL/L ALT (SGPT) 6 (L) 7 - 56 U/L Anion Gap 9 3 - 12 eGFR Non 34 (L) >60 mL/min eGFR 41 (L) >60 mL/min MAGNESIUM Collection Time: 04/24/17 1:55 AM Result Value Ref Range Magnesium 2.1 1.6 - 2.6 mg/dL PHOSPHORUS Collection Time: 04/24/17 1:55 AM Result Value Ref Range Phosphorus 3.8 2.0 - 4.0 MG/DL URIC ACID Collection Time: 04/24/17 1:55 AM Result Value Ref Range Uric Acid 8.1 (H) 2.0 - 7.0 MG/DL LDH-LACTATE DEHYDROGENASE Collection Time: 04/24/17 1:55 AM Result Value Ref Range Lactate Dehydrogenase 701 (H) 100 - 210 U/L PTT (APTT) Collection Time: 04/24/17 1:55 AM Result Value Ref Range APTT 27.7 21.0 - 39.0 SEC PROTIME INR (PT) Collection Time: 04/24/17 1:55 AM Result Value Ref Range INR 2.4 (H) 0.8 - 1.2 FIBRINOGEN Collection Time: 04/24/17 1:55 AM Result Value Ref Range Fibrinogen 693 (H) 200 - 400 MG/DL VITAMIN B12 Collection Time: 04/24/17 1:55 AM Result Value Ref Range Vitamin B12 3074 (H) 180 - 914 PG/ML LEUKEMIA-LYMPHOMA PANEL BLOOD Collection Time: 04/24/17 1:55 AM Result Value Ref Range Leuk/Lymph Interpretation SEE PATHOLOGY REPORT Specimen/LLM BLOOD BLOOD BANK SAMPLE HOLD Collection Time: 04/24/17 1:55 AM Result Value Ref Range BB Sample hold IN LAB BLOOD BANK SAMPLE HOLD Collection Time: 04/24/17 1:55 AM Result Value Ref Range BB Sample hold IN LAB FLOW CYTOMETRY Collection Time: 04/24/17 1:55 AM Result Value Ref Range PATHOLOGY REPORT [facility] [email or web address] Doris Rodarte MD, Director of Clinical Laboratory Fede West MD, Director of Flow Cytometry Laboratory Department of Pathology and Laboratory Medicine [address] [place] [id number] Surgical Pathology Office: [phone] FLOW CYTOMETRY REPORT NAME: GISELLE MORAES SURG PATH #: [id number] MR #: [id number] SPECIMEN CLASS: LC BILLING #: [id number] ALT ID #: LOCATION: [id number] DATE OF PROCEDURE: 04/24/2017 AGE: 56 SEX: F DATE RECEIVED: 04/24/2017 : 1960 TIME RECEIVED: 09:11 PHYSICIAN: ALISHA GREGORIO DATE OF REPORT: 04/24/2017 COPY TO: DATE OF PRINTIN04/24/2017 Material Received: A: Blood Peripheral History: 56-year-old female ######################################################################## Final Diagnosis: Blood, flow cytometry: Acute myeloid leukemia, 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 They are positive for CD13, C D33, CD38, CD117, HLA-DR and cytoplasmic myeloperoxidase. They are negative for CD11b, CD11c, CD14, CD34, CD64, TdT, B- and T-cell markers. The findings are consistent with acute myeloid leukemia. Attestation: By this signature, I attest that I have personally formulated the final interpretation expressed in this report and that the above diagnosis is based upon my examination of the slides and/or other material indicated in this report. +++Electronically Signed Out By+++ pmw/04/24/2017 Interpreted by: Fede West MD 04/24/2017 ######################################################################## Lab Data: Flow Cytometry - Acute Leukemia Panel Gated on CD45 Dim region: Myeloid Associated Markers (% Positive Cells): KQ94c=3; TG04w=2; CD13=93; CD14=1; CD15=4; CD33=90; CD64=2; RM625=81; cyMPO=69 B Cell Associated Markers (% Positive Cells): CD19=0; CD20=0; niSJ64=82 ; xyFL74h=2 Salley=0; Lambda=0; Salley:Lambda ratio=n/a T Cell Associated Markers (% Positive Cells): CD1a=0; CD2=0; sCD3=0; cyCD3=0; CD4=0; CD5=0; CD7=13; CD8= 0 CD4:CD8 ratio=n/a Miscellaneous Markers (% Positive Cells): CD10=0; CD34=6; CD38=98; CW06=040; CD56=0; HLA-DR=77; nTdT=2 Gated on Monocyte region: Myeloid Associated Markers (% Positive Cells): BM18t=00; AE90r=34; CD13=50; CD14=85; CD15=14; CD33=95; CD64= 99; BE840=4; cyMPO=82 B Cell Associated Markers (% Positive Cells): CD19=0; CD20=0; ftZO56=95; yhGN34d=9 Salley=0; Lambda=0; Salley:Lambda ratio=n/a T Cell Associated Markers (% Positive Cells): CD1a=0; CD2=0; sCD3=0; cyCD3=0; CD4=85; CD5=0; CD7=0; CD8= 0 CD4:CD8 ratio=n/a Miscellaneous Markers (% Positive Cells): CD10=0; CD34=0; BI19=157; YV79=742; CD56=0; HLA-DR=96; nTdT= 0 Cell Viability (%): n/a Number of Cells Analyzed: 10,000 Total N umber of Markers: 38 Summary of Marker Combinations: 56/33/34/13/15/45/DR; 14/117/34/64/11b/45/11c; K/L/34/10/19/45/38/20; 2/7/4/3/1a/45/5/8; nTdt/cy22/34/cy3/cy79a/45/cyMPO/19 This test was developed and its performance characteristics determined by the [facility] Flow Cytometry [facility]. It has not been cleared or approved by the U.S. Food and Drug Administration (FDA). The FDA has determined that such clearance or approval is not necessary. POC GLUCOSE Collection Time: 04/24/17 1:57 AM Result Value Ref Range Glucose, POC 198 (H) 70 - 100 MG/DL POC GLUCOSE Collection Time: 04/24/17 5:20 AM Result Value Ref Range Glucose, POC 44 (LL) 70 - 100 MG/DL POC GLUCOSE Collection Time: 04/24/17 5:50 AM Result Value Ref Range Glucose, POC 103 (H) 70 - 100 MG/DL POC GLUCOSE Collection Time: 04/24/17 7:41 AM Result Value Ref Range Glucose, POC 61 (L) 70 - 100 MG/DL LDH-LACTATE DEHYDROGENASE Collection Time: 04/24/17 7:49 AM Result Value Ref Range Lactate Dehydrogenase 548 (H) 100 - 210 U/L POC GLUCOSE Collection Time: 04/24/17 8:27 AM Result Value Ref Range Glucose, POC 90 70 - 100 MG/DL Tele AF with variable ventricular response, some mild RVR at times. ECG prior to transfer on 04/23/2017 showed AF with a HR of 70, borderline low voltage, non specific t-wave changes. Dipesh Bai MD in this encounter Miscellaneous Notes * Case Mgmt DC Plan - Devon Anglin - 05/19/2017 2:10 PM CDT BMT-[facility] Social Work Note Date: 05/21/17 Intervention: SW assisted in getting the [employer] Patient Assistance application signed by Dr. Duval. Scanned and emailed to [facility] to process application. Devon Anglin LMSW, [facility] [phone] * Case Mgmt DC Plan - Brook Putnam RN - 05/19/2017 2:10 PM CDT Formatting of this note may be different from the original. Case Management Progress Note NAME:Giselle Moraes : AGE: 56 y.o. ADMISSION DATE: 04/24/2017 DAYS ADMITTED: LOS: 25 days Todays Date: 05/19/2017 Plan: DC to home today Interventions ? Support Support: Pt/Family Updates re:POC or DC Plan -Visits x2 with pt and spouse -Ready for dc to home today -Will have [facility] see tomorrow -Issues getting glucose monitor and supplies from [facility]. Provided pt's spouse with copy of pt's SS card. Monitor and supplies covered at 100% -Encouraged pt to f/u with Ashlee with [employer] to secure Part D and supplement for 2018. Pt stated OOP cost for insurance was more than her monthly rx. Discussed the significance a cancer dx can have on potential for expensive medications. -No further needs at this time ? Info or Referral ? Discharge Planning Discharge Planning: Home Health -[facility], [place]: [phone], fx [phone] -Faxed signed orders and AVS today ? Medication Needs Medication Needs: Prescription Assistance Program ? Financial ? Legal ? Other Disposition ? Discharge Preparation When ready for discharge, who will be responsible for transporting?: Type of Residence: Private residence Patient expects to be discharged to: Private residence Was the patient receiving home care services?: No ? Expected Discharge Expected Discharge Date: 05/19/17 ? Discharge Disposition ? Next Level Care Brook Putnam GROCERY CHECKER Nurse Telehealth Case Manager Ext [phone], Pgr [phone] * Care Plan - Carolynn López RN - 05/19/2017 8:51 AM CDT Problem: Discharge Planning Goal: Knowledge regarding plan of care Outcome: Goal Achieved Date Met: 05/19/17 Pt actively involved in POC, asks questions Problem: Respiratory Impairment (Non-Ventilated Patient) Goal: Effective gas exchange Outcome: Goal Achieved Date Met: 05/19/17 Pt satting well on RA Problem: Anxiety Goal: Alleviation of anxiety Outcome: Goal Achieved Date Met: 05/19/17 Pt with good control over anxiety, meds available upon request Problem: Infection, Risk of, Central Venous Catheter-Associated Bloodstream Infection Goal: Absence of CVC Associated Bloodstream infection Outcome: Goal Achieved Date Met: 05/19/17 No s/s of infection at this time. CVC dry, clean, intact. Dressing cx'd this shift Problem: Mobility/Activity Intolerance Goal: Maximize functional ADLs and mobility outcomes Outcome: Goal Achieved Date Met: 05/19/17 Pt active with PT/OT, improved ADLs Problem: Falls, High Risk of Goal: Absence of falls-Adult Patient Outcome: Goal Achieved Date Met: 05/19/17 Pt compliant with high fall bundle, all items in place, no falls this shift * Case Mgmt DC Plan - Brook Putnam RN - 05/18/2017 1:23 PM CDT Formatting of this note may be different from the original. Case Management Progress Note NAME:Giselle Moraes : AGE: 56 y.o. ADMISSION DATE: 04/24/2017 DAYS ADMITTED: LOS: 24 days Todays Date: 05/18/2017 Plan: DC to home Interventions ? Support Support: Pt/Family Updates re:POC or DC Plan -Visit at bedside with pt for dc planning -ANC 400 today -DC to home when 500 or > -Discussed OP pharmacy is working on Midostarin assistance but is in the need of additional documentation -Call to [facility]. Per Heide, Wire Chief, 3 months of bank statements would be sufficient to complete the documentation -Discussed with pt. Agreeable to getting statements. Provided with [facility] fax number. Pt will have info sent to Heide ? Info or Referral ? Discharge Planning Discharge Planning: Home Health -[facility], [place]: [phone], fx [phone] -Call to [facility] today. Able to get call thru. -Discussed case with Asya. She requests info to be faxed to her for review -Chart info faxed. ? Medication Needs Medication Needs: Prescription Assistance Program ? Financial ? Legal ? Other Disposition ? Discharge Preparation When ready for discharge, who will be responsible for transporting?: Type of Residence: Private residence Patient expects to be discharged to: Private residence Was the patient receiving home care services?: No ? Expected Discharge Expected Discharge Date: 05/19/17 ? Discharge Disposition ? Next Level Care Brook Putnam GROCERY CHECKER Nurse Telehealth Case Manager Ext [phone], Pgr [phone] * Care Plan - Cathleen Davies RN - 05/18/2017 3:22 AM CDT Problem: Discharge Planning Goal: Knowledge regarding plan of care Outcome: Goal Ongoing Actively engaged in care. Participated in med pass and assessment. Problem: Respiratory Impairment (Non-Ventilated Patient) Goal: Effective gas exchange Outcome: Goal Ongoing 1.5L O2 in place. Sats 100. Problem: Infection, Risk of, Central Venous Catheter-Associated Bloodstream Infection Goal: Absence of CVC Associated Bloodstream infection Outcome: Goal Ongoing Proper line care completed this shift. Problem: Falls, High Risk of Goal: Absence of falls-Adult Patient Outcome: Goal Ongoing Fall bundle in place. * Case Mgmt DC Plan - Gretchen Bui - 05/17/2017 1:38 PM CDT Case Management Progress Note NAME:Giselle Moraes : AGE: 56 y.o. ADMISSION DATE: 04/24/2017 DAYS ADMITTED: LOS: 23 days Todays Date: 05/17/2017 Plan Anticipate d/c home with family support when medically stable. Interventions ? Support Support: Pt/Family Updates re:POC or DC Plan SW met with pt in room with BMT team during rounds. ANC 200 today. Team discussed possibility of d/c once counts recover in the coming days. Pt excited to d/c. Team discussed need for pt to increase mobility in order to d/c home safely. Pt reports no concerns with her current mobility and stated her will be at home with her to assist. ? Info or Referral ? Discharge Planning Discharge Planning: Home Health ? Medication Needs Medication Needs: Prescription Assistance Program PANCHITO spoke with PharmD re: Midostaurin assistance. PANCHITO informed that [facility] has been attempting to get in touch with pt's to obtain proof of income documentation and have left multiple messages. Pt's spouse has yet to get back to [facility] to provide necessary information to complete assistance application. PANCHITO spoke with pt via room phone re: need for proof of income. Pt was confused and under the impression that proof of income provided to BMT FC's was all that was needed. SW explained difference in services provided by FC's and pharmacy. Pt verbalized understanding. SW contacted FC's to obtain copy of pt's husbands income to provide to pharmacy. SW will continue to follow up. ? Financial ? Legal ? Other Disposition ? Discharge Preparation When ready for discharge, who will be responsible for transporting?: Type of Residence: Private residence Patient expects to be discharged to: Private residence Was the patient receiving home care services?: No ? Expected Discharge Expected Discharge Date: 05/26/17 ? Discharge Disposition ? Next Level Care * Case Mgmt DC Plan - Brook Putnam RN - 05/17/2017 12:16 PM CDT Formatting of this note may be different from the original. Case Management Progress Note NAME:Giselle Moraes : AGE: 56 y.o. ADMISSION DATE: 04/24/2017 DAYS ADMITTED: LOS: 23 days Todays Date: 05/17/2017 Plan: DC to home when medically stable Interventions ? Support Support: Pt/Family Updates re:POC or DC Plan -Discussed case with the team -Counts improving, might be ready for dc -Discussed dc planning. Patient not interested in placement. She wants to dc to home -She has 3 steps to climb to get to her deck to enter her home. Her has been assisting her COUNTER TOP ASSEMBLER with entering and exiting the home. -Discussed HHC: RN and PT visits. [facility] Medicare.gov [facility] . -Pt agreeable to [facility]. Owns necessary DME -Discussed DC medication plan with Mayte TOVAR, because pt does not have RX coverage. Per Mayte, pt will complete Posaconazole when engrafted, team plans to resume COUNTER TOP ASSEMBLER diabetic regimen. -Attempted to call HHC today but phones were down. Will call in the AM ? Info or Referral ? Discharge Planning Discharge Planning: Home Health -[facility]: [phone], fx ? Medication Needs ? Financial ? Legal ? Other Disposition ? Discharge Preparation When ready for discharge, who will be responsible for transporting?: Type of Residence: Private residence Patient expects to be discharged to: Private residence Was the patient receiving home care services?: No ? Expected Discharge Expected Discharge Date: 05/26/17 ? Discharge Disposition ? Next Level Care Brook Putnam GROCERY CHECKER Nurse Telehealth Case Manager Ext [phone], Pgr [phone] * Case Mgmt DC Plan - Ralf Woodall RN - 05/14/2017 11:52 AM CDT Case Management Progress Note NAME:Giselle Moraes : AGE: 56 y.o. ADMISSION DATE: 04/24/2017 DAYS ADMITTED: LOS: 20 days Todays Date: 05/14/2017 Plan: d/c home vs facility once counts recover and medically stable -Day 17 of 7+3, midostaurin application in process per [facility] -No rx coverage -Working with PT/OT; needs a lot of encouragement; poor mobilization -Possible need for placement upon dc Interventions ? Support Support: Pt/Family Updates re:POC or DC Plan ? Info or Referral ? Discharge Planning ? Medication Needs ? Financial ? Legal ? Other Disposition ? Discharge Preparation When ready for discharge, who will be responsible for transporting?: Type of Residence: Private residence Patient expects to be discharged to: Private residence Was the patient receiving home care services?: No ? Expected Discharge Expected Discharge Date: 05/26/17 ? Discharge Disposition Ralf Woodall GROCERY CHECKER Nurse Telehealth Case Manager Ext [phone], Pgr *[phone] * Care Plan - Allie Pope RN - 05/14/2017 12:57 AM CDT Problem: Respiratory Impairment (Non-Ventilated Patient) Goal: Effective gas exchange Outcome: Goal Ongoing Pt on 2L oxygen for comfort at night Problem: Infection, Risk of, Central Venous Catheter-Associated Bloodstream Infection Goal: Absence of CVC Associated Bloodstream infection Outcome: Goal Ongoing Pt chg disk intact and line care completed Problem: Mobility/Activity Intolerance Goal: Maximize functional ADLs and mobility outcomes Outcome: Goal Ongoing Pt able to complete adl's with minimal assist Problem: Falls, High Risk of Goal: Absence of falls-Adult Patient Outcome: Goal Ongoing Pt fall bundle in place * Case Mgmt DC Plan - Ralf Woodall RN - 05/12/2017 9:42 AM CDT Case Management Progress Note NAME:Giselle Moraes : AGE: 56 y.o. ADMISSION DATE: 04/24/2017 DAYS ADMITTED: LOS: 18 days Todays Date: 05/12/2017 Plan: d/c home vs inpatient setting? once counts recover (ANC>500) and medically stable -Patient was seen on BMT rounds today -Day 15 of 7+3, Midostaurin assistance in process -Awaiting bone marrow bx results -Encouraged patient to increase activity -PT/OT following -NCM will continue to follow for dc planning needs Interventions ? Support Support: Pt/Family Updates re:POC or DC Plan ? Info or Referral ? Discharge Planning ? Medication Needs ? Financial ? Legal ? Other Disposition ? Discharge Preparation When ready for discharge, who will be responsible for transporting?: Type of Residence: Private residence Patient expects to be discharged to: Private residence Was the patient receiving home care services?: No ? Expected Discharge Expected Discharge Date: 05/26/17 ? Discharge Disposition Ralf Woodall GROCERY CHECKER Nurse Telehealth Case Manager Ext [phone], Pgr *[phone] * Procedures (Immed Post or Bedside) - Ruth Sim APRN - 05/11/2017 11 :54 AM CDT Pt. Was placed prone and prepped and draped in sterile fashion by IR staff. The lumbar intrathecal space was accessed under fluoroscopy by the IR provider. This BODY WORK AUTO TRIMMER attached chemotherapy syringe, verified easy aspiration of CSF, and Cytarabine 100mg PF administered intrathecally over 5 minutes. Pt tolerated procedure without any difficulties. Chemo verified with staff nurse icu resource team. To recovery per IR policy. Ruth Sim APRN Pager [phone] * Case Mgmt DC Plan - Ralf Woodall RN - 05/11/2017 11:14 AM CDT Case Management Progress Note NAME:Giselle Moraes : AGE: 56 y.o. ADMISSION DATE: 04/24/2017 DAYS ADMITTED: LOS: 17 days Todays Date: 05/11/2017 Plan: d/c home vs inpatient setting once counts recover (ANC>500) and medically stable -Patient was seen on BMT rounds today -Day 14 of 7+3; Midostaurin application in process -IR for IT chemo/bone marrow bx -Gonzalez catheter in place, plan to remove soon per team -Encouraged patient to sit in chair today -NCM will continue to follow for dc planning needs Interventions ? Support Support: Pt/Family Updates re:POC or DC Plan ? Info or Referral ? Discharge Planning ? Medication Needs ? Financial ? Legal ? Other Disposition ? Discharge Preparation When ready for discharge, who will be responsible for transporting?: Type of Residence: Private residence Patient expects to be discharged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 APHERESIS PLATELETS Routine 05/08/2017 6:40 AM CDT TRANSFUSE APHERESIS PLATELETS Routine 05/08/2017 6:40 AM CDT TRANSFUSE RBC'S NON-BLEEDING PT Routine 05/08/2017 12:20 PM CDT TRANSFUSE RBC'S NON-BLEEDING PT Routine 05/08/2017 12:20 PM CDT TRANSFUSE RBC'S NON-BLEEDING PT Routine 05/11/2017 1:29 PM CDT TRANSFUSE RBC'S NON-BLEEDING PT Routine 05/11/2017 1:29 PM CDT TRANSFUSE RBC'S NON-BLEEDING PT Routine 05/14/2017 12:24 PM CDT TRANSFUSE RBC'S NON-BLEEDING PT Routine 05/14/2017 12:24 PM CDT Name Priority Associated Diagnoses Order Schedule CYTOLOGY FLUIDS Routine ONCE for 1 Occurrences starting 05/11/2017 as of this encounter Procedures Procedure Name Priority Date/Time Associated Diagnosis Comments ECG-SCAN 05/24/2017 Results for this 1:53 PM [employer] procedure are in the results section. ECG-SCAN 05/24/2017 Results for this 1:53 PM [employer] procedure are in the results section. ECG-SCAN 05/24/2017 Results for this 1:53 PM [employer] procedure are in the results section. ECG-SCAN 05/24/2017 Results for this 1:53 PM [employer] procedure are in the results section. ECG-SCAN 05/24/2017 Results for this 1:53 PM [employer] procedure are in the results section. ECG-SCAN 05/24/2017 Results for this 1:52 PM [employer] procedure are in the results section. ECG-SCAN 05/24/2017 Results for this 1:52 PM [employer] procedure are in the results section. ECG-SCAN 05/24/2017 Results for this 1:52 PM [employer] procedure are in the results section. ECG-SCAN 05/24/2017 Results for this 1:52 PM [employer] procedure are in the results section. ECG-SCAN 05/24/2017 Results for this 1:52 PM [employer] procedure are in the results section. ECG-SCAN 05/24/2017 Results for this 1:52 PM [employer] procedure are in the results section. ECG-SCAN 05/24/2017 Results for this 1:52 PM [employer] procedure are in the results section. ECG-SCAN 05/24/2017 Results for this 1:52 PM [employer] procedure are in the results section. ECG-SCAN 05/24/2017 Results for this 1:52 PM [employer] procedure are in the results section. ECG-SCAN 05/24/2017 Results for this 1:52 PM [employer] procedure are in the results section. ECG-SCAN 05/24/2017 Results for this 1:52 PM [employer] procedure are in the results section. ECG-SCAN 05/24/2017 Results for this 1:52 PM [employer] procedure are in the results section. ECG-SCAN 05/24/2017 Results for this 1:52 PM [employer] procedure are in the results section. ECG-SCAN 05/24/2017 Results for this 1:52 PM [employer] procedure are in the results section. ECG-SCAN 05/24/2017 Results for this 1:52 PM [employer] procedure are in the results section. ECG-SCAN 05/24/2017 Results for this 1:52 PM [employer] procedure are in the results section. ECG-SCAN 05/24/2017 Results for this 1:52 PM [employer] procedure are in the results section. ECG-SCAN 05/24/2017 Results for this 1:52 PM [employer] procedure are in the results section. ECG-SCAN 05/24/2017 Results for this 1:51 PM [employer] procedure are in the results section. ECG-SCAN 05/24/2017 Results for this 1:51 PM [employer] procedure are in the results section. ECG-SCAN 05/24/2017 Results for this 1:51 PM [employer] procedure are in the results section. ECG-SCAN 05/24/2017 Results for this 1:51 PM [employer] procedure are in the results section. ECG-SCAN 05/24/2017 Results for this 1:51 PM [employer] procedure are in the results section. ECG-SCAN 05/24/2017 Results for this 1:51 PM [employer] procedure are in the results section. ECG-SCAN 05/24/2017 Results for this 1:51 PM [employer] procedure are in the results section. CONSULT IV THERAPY TEAM STAT 04/24/2017 1:32 PM CDT CONSULT IV THERAPY TEAM STAT 04/24/2017 1:26 AM CDT in this encounter Results * CYTOGENETICS SCAN (05/25/2017 10:42 AM) Narrative Ordered by an unspecified provider. * [...] Narrative Ordered by an unspecified provider. * POC GLUCOSE (05/19/2017 7:29 AM) Component Value Ref Range Glucose, POC 160 (H) 70 - 100 MG/DL Specimen Performing Laboratory [facility] [address] [place] [address] * CBC AND DIFF (05/19/2017 2:10 AM) Component Value Ref Range White Blood Cells 1.4 (L) 4.5 - 11.0 K/UL RBC 2.48 (L) 4.0 - 5.0 M/UL Hemoglobin 7.4 (L) 12.0 - 15.0 GM/DL Hematocrit 20.6 (L) 36 - 45 % MCV 83.3 80 - 100 FL MCH 29.7 26 - 34 PG MCHC 35.7 32.0 - 36.0 G/DL RDW 15.4 (H) 11 - 15 % Platelet Count 27 (L) 150 - 400 K/UL MPV 8.7 7 - 11 FL Neutrophils 34 (L) 41 - 77 % Lymphocytes 53 (H) 24 - 44 % Monocytes 13 (H) 4 - 12 % Eosinophils 0 0 - 5 % Basophils 0 0 - 2 % Absolute Neutrophil Count 0.50 (L) 1.8 - 7.0 K/UL Absolute Lymph Count 0.70 (L) 1.0 - 4.8 K/UL Absolute Monocyte Count 0.20 0 - 0.80 K/UL Absolute Eosinophil Count 0.00 0 - 0.45 K/UL Absolute Basophil Count 0.00 0 - 0.20 K/UL Specimen Performing Laboratory Blood [facility] [address] [place] [address] * MAGNESIUM (05/19/2017 2:10 AM) Component Value Ref Range Magnesium 2.1 1.6 - 2.6 mg/dL Specimen Performing Laboratory Blood [facility] [address] [place] [address] * COMPREHENSIVE METABOLIC PANEL (05/19/2017 2:10 AM) Component Value Ref Range Sodium 143 137 - 147 MMOL/L Potassium 3.4 (L) 3.5 - 5.1 MMOL/L Chloride 111 (H) 98 - 110 MMOL/L Glucose 127 (H) 70 - 100 MG/DL Blood Urea Nitrogen 32 (H) 7 - 25 MG/DL Creatinine 0.93 0.4 - 1.00 MG/DL Calcium 9.1 8.5 - 10.6 MG/DL Total Protein 5.7 (L) 6.0 - 8.0 G/DL Total Bilirubin 0.8 0.3 - 1.2 MG/DL Albumin 2.6 (L) 3.5 - 5.0 G/DL Alk Phosphatase 186 (H) 25 - 110 U/L AST (SGOT) 6 (L) 7 - 40 U/L CO2 26 21 - 30 MMOL/L ALT (SGPT) 6 (L) 7 - 56 U/L Anion Gap 6 [...] questions. Specimen Performing Laboratory Blood [facility] [address] [place] [address] * POC GLUCOSE (05/18/2017 8:30 PM) Component Value Ref Range Glucose, POC 125 (H) 70 - 100 MG/DL Specimen Performing Laboratory [facility] [address] [place] [address] * POC GLUCOSE (05/18/2017 4:50 PM) Component Value Ref Range Glucose, POC 113 (H) 70 - 100 MG/DL Specimen Performing Laboratory [facility] [address] [place] [address] * POC GLUCOSE (05/18/2017 11:43 AM) Component Value Ref Range Glucose, POC 108 (H) 70 - 100 MG/DL Specimen Performing Laboratory [facility] [address] [place] [address] * TRANSFUSE RBC'S NON-BLEEDING PT (05/18/2017 10:11 AM) Specimen Performing Laboratory Blood * TRANSFUSE RBC'S NON-BLEEDING PT (05/18/2017 10:11 AM) Specimen Performing Laboratory Blood * POC GLUCOSE (05/18/2017 7:59 AM) Component Value Ref Range Glucose, POC 148 (H) 70 - 100 MG/DL Specimen Performing Laboratory [facility] [address] [place] [id number] * TYPE & CROSSMATCH (05/18/2017 3:45 AM) Component Value Ref Range Units Ordered 1 Crossmatch Expires 05/21/2017 Record Check FOUND ABO/RH(D) A POS Antibody Screen NEG Electronic Crossmatch YES Unit Number [id number] Blood Component Type RBC,ADSOL,LEUKO REDUCED,IRRADIATED Unit Division 0 Status OF Unit TRANSFUSED Transfusion Status OK TO TRANSFUSE Crossmatch Result COMPATIBLE,ELECTRONIC Specimen Performing Laboratory Blood [facility]IN [facility] [address] [place], [place] [id number] * CBC AND DIFF (05/18/2017 3:45 AM) Component Value Ref Range White Blood Cells 1.1 (L) 4.5 - 11.0 K/UL RBC 2.22 (L) 4.0 - 5.0 M/UL Hemoglobin 6.6 (L) 12.0 - 15.0 GM/DL Hematocrit 18.7 (L) 36 - 45 % MCV 84.0 80 - 100 FL MCH 29.7 26 - 34 PG MCHC 35.4 32.0 - 36.0 G/DL RDW 15.5 (H) 11 - 15 % Platelet Count 17 (LL)Comment: Value noted, Value unchanged 150 - 400 K/UL MPV 8.9 7 - 11 FL Neutrophils 35 (L) 41 - 77 % Lymphocytes 56 (H) 24 - 44 % Monocytes 8 4 - 12 % Eosinophils 0 0 - 5 % Basophils 1 0 - 2 % Absolute Neutrophil Count 0.40 (L) 1.8 - 7.0 K/UL Absolute Lymph Count 0.60 (L) 1.0 - 4.8 K/UL Absolute Monocyte Count 0.10 0 - 0.80 K/UL Absolute Eosinophil Count 0.00 0 - 0.45 K/UL Absolute Basophil Count 0.00 0 - 0.20 K/UL Specimen Performing Laboratory Blood [facility] [address] [place] [address] * MAGNESIUM (05/18/2017 3:45 AM) Component Value Ref Range Magnesium 1.7 1.6 - 2.6 mg/dL Specimen Performing Laboratory Blood [facility] [address] [place] [address] * COMPREHENSIVE METABOLIC PANEL (05/18/2017 3:45 AM) Component Value Ref Range Sodium 142 137 - 147 MMOL/L Potassium 3.5 3.5 - 5.1 MMOL/L Chloride 114 (H) 98 - 110 MMOL/L Glucose 119 (H) 70 - 100 MG/DL Blood Urea Nitrogen 33 (H) 7 - 25 MG/DL Creatinine 0.90 0.4 - 1.00 MG/DL Calcium 7.9 (L) 8.5 - 10.6 MG/DL Total Protein 5.3 (L) 6.0 - 8.0 G/DL Total Bilirubin 0.7 0.3 - 1.2 MG/DL Albumin 2.4 (L) 3.5 - 5.0 G/DL Alk Phosphatase 173 (H) 25 - 110 U/L AST (SGOT) 7 7 - 40 U/L CO2 22 21 - 30 MMOL/L ALT (SGPT) 9 7 - 56 U/L Anion Gap 6 [...] questions. Specimen Performing Laboratory Blood [facility] [address] [place] [address] * POC GLUCOSE (05/17/2017 9:01 PM) Component Value Ref Range Glucose, POC 127 (H) 70 - 100 MG/DL Specimen Performing Laboratory [facility] [address] [place] [address] * POC GLUCOSE (05/17/2017 4:52 PM) Component Value Ref Range Glucose, POC 118 (H) 70 - 100 MG/DL Specimen Performing Laboratory [facility] [address] [place] [address] * POC GLUCOSE (05/17/2017 12:16 PM) Component Value Ref Range Glucose, POC 156 (H) 70 - 100 MG/DL Specimen Performing Laboratory [facility] [address] [place] [id number] * POC GLUCOSE (05/17/2017 7:47 AM) Component Value Ref Range Glucose, POC 152 (H) 70 - 100 MG/DL Specimen Performing Laboratory [facility] [address] [place], [place] [id number] * VRE SCREEN (05/17/2017 7:00 AM) Component Value Ref Range Battery Name VRE SCREEN Specimen Description PERIRECTAL SWAB Special Requests NONE Culture NO VRE ISOLATED Report Status FINAL 05/18/2017 Specimen Performing Laboratory Perirectal Swab [facility] [address] [place] [address] * CBC AND DIFF (05/17/2017 2:47 AM) Component Value Ref Range White Blood Cells 1.0 (L)Comment: Value noted, value unchanged 4.5 - 11.0 K/UL RBC 2.66 (L) 4.0 - 5.0 M/UL Hemoglobin 7.6 (L) 12.0 - 15.0 GM/DL Hematocrit 22.6 (L) 36 - 45 % MCV 85.0 80 - 100 FL MCH 28.6 26 - 34 PG MCHC 33.7 32.0 - 36.0 G/DL RDW 15.5 (H) 11 - 15 % Platelet Count 17 (LL)Comment: Value noted, Value unchanged 150 - 400 K/UL MPV 8.9 7 - 11 FL Neutrophils 23 (L) 41 - 77 % Lymphocytes 74 (H) 24 - 44 % Monocytes 3 (L) 4 - 12 % Eosinophils 0 0 - 5 % Basophils 0 0 - 2 % Absolute Neutrophil Count 0.20 (L) 1.8 - 7.0 K/UL Absolute Lymph Count 0.70 (L) 1.0 - 4.8 K/UL Absolute Monocyte Count 0.00 0 - 0.80 K/UL Absolute Eosinophil Count 0.00 0 - 0.45 K/UL Absolute Basophil Count 0.00 0 - 0.20 K/UL Specimen Performing Laboratory Blood [facility] [address] [place], [place] [id number] * MAGNESIUM (05/17/2017 2:47 AM) Component Value Ref Range Magnesium 2.2 1.6 - 2.6 mg/dL Specimen Performing Laboratory Blood [facility] [address] [place], [place] [id number] * COMPREHENSIVE METABOLIC PANEL (05/17/2017 2:47 AM) Component Value Ref Range Sodium 143 137 - 147 MMOL/L Potassium 3.8 3.5 - 5.1 MMOL/L Chloride 111 (H) 98 - 110 MMOL/L Glucose 126 (H) 70 - 100 MG/DL Blood Urea Nitrogen 36 (H) 7 - 25 MG/DL Creatinine 1.01 (H) 0.4 - 1.00 MG/DL Calcium 8.8 8.5 - 10.6 MG/DL Total Protein 6.0 6.0 - 8.0 G/DL Total Bilirubin 0.8 0.3 - 1.2 MG/DL Albumin 2.8 (L) 3.5 - 5.0 G/DL Alk Phosphatase 182 (H) 25 - 110 U/L AST (SGOT) 9 7 - 40 U/L CO2 24 21 - 30 MMOL/L ALT (SGPT) 9 7 - 56 U/L Anion Gap 8 3 - 12 eGFR Non 56 (L) >60 mL/min Comment: The eGFR is [...] questions. Specimen Performing Laboratory Blood MAIN [facility] [address] [place] [address] * POC GLUCOSE (05/17/2017 2:45 AM) Component Value Ref Range Glucose, POC 131 (H) 70 - 100 MG/DL Specimen Performing Laboratory [facility] [address] [place] [address] * POC GLUCOSE (05/16/2017 8:58 PM) Component Value Ref Range Glucose, POC 136 (H) 70 - 100 MG/DL Specimen Performing Laboratory [facility] [address] [place] [address] * POC GLUCOSE (05/16/2017 5:16 PM) Component Value Ref Range Glucose, POC 112 (H) 70 - 100 MG/DL Specimen Performing Laboratory [facility] [address] [place] [address] * POC GLUCOSE (05/16/2017 11:42 AM) Component Value Ref Range Glucose, POC 154 (H) 70 - 100 MG/DL Specimen Performing Laboratory [facility] [address] [place] [address] * POC GLUCOSE (05/16/2017 7:44 AM) Component Value Ref Range Glucose, POC 136 (H) 70 - 100 MG/DL Specimen Performing Laboratory [facility] [address] [place] [address] * POC GLUCOSE (05/16/2017 3:24 AM) Component Value Ref Range Glucose, POC 130 (H) 70 - 100 MG/DL Specimen Performing Laboratory [facility] [address] [place], [place] [id number] * CBC AND DIFF (05/16/2017 3:20 AM) Component Value Ref Range White Blood Cells 0.5 (LL)Comment: Value noted, value unchanged 4.5 - 11.0 K/UL RBC 2.39 (L) 4.0 - 5.0 M/UL Hemoglobin 7.1 (L) 12.0 - 15.0 GM/DL Hematocrit 20.2 (L) 36 - 45 % MCV 84.6 80 - 100 FL MCH 29.6 26 - 34 PG MCHC 35.0 32.0 - 36.0 G/DL RDW 15.1 (H) 11 - 15 % Platelet Count 13 (LL)Comment: Value noted, Value unchanged 150 - 400 K/UL MPV 7.8 7 - 11 FL Neutrophils 12 (L) 41 - 77 % Lymphocytes 84 (H) 24 - 44 % Monocytes 3 (L) 4 - 12 % Eosinophils 1 0 - 5 % Basophils 0 0 - 2 % Absolute Neutrophil Count 0.10 (L) 1.8 - 7.0 K/UL Absolute Lymph Count 0.40 (L) 1.0 - 4.8 K/UL Absolute Monocyte Count 0.00 0 - 0.80 K/UL Absolute Eosinophil Count 0.00 0 - 0.45 K/UL Absolute Basophil Count 0.00 0 - 0.20 K/UL Specimen Performing Laboratory Blood [facility] [address] [place] [address] * MAGNESIUM (05/16/2017 3:20 AM) Component Value Ref Range Magnesium 2.0 1.6 - 2.6 mg/dL Specimen Performing Laboratory Blood [facility] [address] [place] [address] * COMPREHENSIVE METABOLIC PANEL (05/16/2017 3:20 AM) Component Value Ref Range Sodium 143 137 - 147 MMOL/L Potassium 4.1 3.5 - 5.1 MMOL/L Chloride 112 (H) 98 - 110 MMOL/L Glucose 129 (H) 70 - 100 MG/DL Blood Urea Nitrogen 33 (H) 7 - 25 MG/DL Creatinine 0.85 0.4 - 1.00 MG/DL Calcium 8.6 8.5 - 10.6 MG/DL Total Protein 5.4 (L) 6.0 - 8.0 G/DL Total Bilirubin 1.1 0.3 - 1.2 MG/DL Albumin 2.5 (L) 3.5 - 5.0 G/DL Alk Phosphatase 149 (H) 25 - 110 U/L AST (SGOT) 8 7 - 40 U/L CO2 25 21 - 30 MMOL/L ALT (SGPT) 7 7 - 56 U/L Anion Gap 6 [...] questions. Specimen Performing Laboratory Blood MAIN LAB [address] [place], [place] [id number] * POC GLUCOSE (05/15/2017 8:53 PM) Component Value Ref Range Glucose, POC 131 (H) 70 - 100 MG/DL Specimen Performing Laboratory [facility] [address] [place] [address] * POC GLUCOSE (05/15/2017 4:36 PM) Component Value Ref Range Glucose, POC 103 (H) 70 - 100 MG/DL Specimen Performing Laboratory [facility] [address] [place] [address] * POC GLUCOSE (05/15/2017 12:40 PM) Component Value Ref Range Glucose, POC 176 (H) 70 - 100 MG/DL Specimen Performing Laboratory [facility] [address] [place] [address] * TRANSFUSE RBC'S NON-BLEEDING PT (05/15/2017 8:50 AM) Specimen Performing Laboratory Blood * TRANSFUSE RBC'S NON-BLEEDING PT (05/15/2017 8:50 AM) Specimen Performing Laboratory Blood * POC GLUCOSE (05/15/2017 8:15 AM) Component Value Ref Range Glucose, POC 137 (H) 70 - 100 MG/DL Specimen Performing Laboratory [facility] [address] [place] [address] * CBC AND DIFF (05/15/2017 3:00 AM) Component Value Ref Range White Blood Cells 0.5 (LL)Comment: Value noted, value unchanged 4.5 - 11.0 K/UL RBC 2.23 (L) 4.0 - 5.0 M/UL Hemoglobin 6.6 (L) 12.0 - 15.0 GM/DL Hematocrit 18.9 (L) 36 - 45 % MCV 84.9 80 - 100 FL MCH 29.8 26 - 34 PG MCHC 35.1 32.0 - 36.0 G/DL RDW 15.2 (H) 11 - 15 % Platelet Count 16 (LL)Comment: Value noted, Value unchanged 150 - 400 K/UL MPV 7.7 7 - 11 FL Neutrophils 3 (L) 41 - 77 % Lymphocytes 95 (H) 24 - 44 % Monocytes 2 (L) 4 - 12 % Eosinophils 0 0 - 5 % Basophils 0 0 - 2 % Absolute Neutrophil Count 0.00 (L) 1.8 - 7.0 K/UL Absolute Lymph Count 0.50 (L) 1.0 - 4.8 K/UL Absolute Monocyte Count 0.00 0 - 0.80 K/UL Absolute Eosinophil Count 0.00 0 - 0.45 K/UL Absolute Basophil Count 0.00 0 - 0.20 K/UL Specimen Performing Laboratory Blood [facility] [address] [place] [address] * MAGNESIUM (05/15/2017 3:00 AM) Component Value Ref Range Magnesium 2.0 1.6 - 2.6 mg/dL Specimen Performing Laboratory Blood MAIN [facility] [address] [place] [address] * COMPREHENSIVE METABOLIC PANEL (05/15/2017 3:00 AM) Component Value Ref Range Sodium 141 137 - 147 MMOL/L Potassium 4.0 3.5 - 5.1 MMOL/L Chloride 111 (H) 98 - 110 MMOL/L Glucose 125 (H) 70 - 100 MG/DL Blood Urea Nitrogen 35 (H) 7 - 25 MG/DL Creatinine 0.84 0.4 - 1.00 MG/DL Calcium 8.7 8.5 - 10.6 MG/DL Total Protein 5.4 (L) 6.0 - 8.0 G/DL Total Bilirubin 1.2 0.3 - 1.2 MG/DL Albumin 2.5 (L) 3.5 - 5.0 G/DL Alk Phosphatase 135 (H) 25 - 110 U/L AST (SGOT) 9 7 - 40 U/L CO2 24 21 - 30 MMOL/L ALT (SGPT) 7 7 - 56 U/L Anion Gap 6 [...] Pharmacist for questions. Specimen Performing Laboratory Blood [facility] [address] [place] [address] * POC GLUCOSE (05/15/2017 2:59 AM) Component Value Ref Range Glucose, POC 132 (H) 70 - 100 MG/DL Specimen Performing Laboratory [facility] [address] [place], [place] [id number] * POC GLUCOSE (05/14/2017 8:45 PM) Component Value Ref Range Glucose, POC 92 70 - 100 MG/DL Specimen Performing Laboratory [facility] [address] [place], [place] [id number] * POC GLUCOSE (05/14/2017 5:06 PM) Component Value Ref Range Glucose, POC 106 (H) 70 - 100 MG/DL Specimen Performing Laboratory [facility] [address] [place], [place] [id number] * POC GLUCOSE (05/14/2017 12:31 PM) Component Value Ref Range Glucose, POC 149 (H) 70 - 100 MG/DL Specimen Performing Laboratory [facility] [address] [place], [place] [id number] * TRANSFUSE APHERESIS PLATELETS (05/14/2017 9:19 AM) * TRANSFUSE APHERESIS PLATELETS (05/14/2017 9:19 AM) * POC GLUCOSE (05/14/2017 7:51 AM) Component Value Ref Range Glucose, POC 143 (H) 70 - 100 MG/DL Specimen Performing Laboratory [facility] [address] [place], [place] [id number] * PREPARE APHERESIS PLATELETS (05/14/2017 4:23 AM) Component Value Ref Range Units Ordered 1 Unit Number [id number] Blood Component Type APHERESIS PLT,LEUKO REDUCED,IRRADIATED,1ST CONT. Unit Division 0 Status OF Unit TRANSFUSED Transfusion Status OK TO TRANSFUSE Specimen Performing Laboratory Other (Specify) MAIN LAB [address] [place] [address] * TYPE & CROSSMATCH (05/14/2017 4:23 AM) Component Value Ref Range Units Ordered 2 Crossmatch Expires 05/17/2017 Record Check FOUND ABO/RH(D) A POS Antibody Screen NEG Electronic Crossmatch YES Unit Number [id number] Blood Component Type RBC,ADSOL,LEUKO REDUCED,IRRADIATED Unit Division 0 Status OF Unit TRANSFUSED Transfusion Status OK TO TRANSFUSE Crossmatch Result COMPATIBLE,ELECTRONIC Unit Number [id number] Blood Component Type RBC,ADSOL,LEUKO REDUCED,IRRADIATED Unit Division 0 Status OF Unit TRANSFUSED Transfusion Status OK TO TRANSFUSE Crossmatch Result COMPATIBLE,ELECTRONIC Specimen Performing Laboratory Blood MAIN LAB [address] [place] [address] * POC GLUCOSE (05/14/2017 3:35 AM) Component Value Ref Range Glucose, POC 142 (H) 70 - 100 MG/DL Specimen Performing Laboratory [facility] [address] [place] [address] * CBC AND DIFF (05/14/2017 3:00 AM) Component Value Ref Range White Blood Cells 0.8 (LL)Comment: Value noted, value unchanged 4.5 - 11.0 K/UL RBC 2.28 (L) 4.0 - 5.0 M/UL Hemoglobin 6.8 (L) 12.0 - 15.0 GM/DL Hematocrit 19.1 (L) 36 - 45 % MCV 83.7 80 - 100 FL MCH 30.0 26 - 34 PG MCHC 35.8 32.0 - 36.0 G/DL RDW 15.8 (H) 11 - 15 % Platelet Count 10 (LL)Comment: Value noted, Value unchanged 150 - 400 K/UL MPV 7.8 7 - 11 FL Neutrophils 1 (L) 41 - 77 % Lymphocytes 97 (H) 24 - 44 % Monocytes 1 (L) 4 - 12 % Eosinophils 0 0 - 5 % Basophils 1 0 - 2 % Absolute Neutrophil Count 0.00 (L) 1.8 - 7.0 K/UL Absolute Lymph Count 0.80 (L) 1.0 - 4.8 K/UL Absolute Monocyte Count 0.00 0 - 0.80 K/UL Absolute Eosinophil Count 0.00 0 - 0.45 K/UL Absolute Basophil Count 0.00 0 - 0.20 K/UL Specimen Performing Laboratory Blood MAIN LAB [address] [place] [address] * MAGNESIUM (05/14/2017 3:00 AM) Component Value Ref Range Magnesium 1.9 1.6 - 2.6 mg/dL Specimen Performing Laboratory Blood MAIN LAB [address] [place] [address] * COMPREHENSIVE METABOLIC PANEL (05/14/2017 3:00 AM) Component Value Ref Range Sodium 142 137 - 147 MMOL/L Potassium 4.0 3.5 - 5.1 MMOL/L Chloride 110 98 - 110 MMOL/L Glucose 134 (H) 70 - 100 MG/DL Blood Urea Nitrogen 36 (H) 7 - 25 MG/DL Creatinine 0.87 0.4 - 1.00 MG/DL Calcium 8.6 8.5 - 10.6 MG/DL Total Protein 5.3 (L) 6.0 - 8.0 G/DL Total Bilirubin 1.1 0.3 - 1.2 MG/DL Albumin 2.5 (L) 3.5 - 5.0 G/DL Alk Phosphatase 130 (H) 25 - 110 U/L AST (SGOT) 8 7 - 40 U/L CO2 25 21 - 30 MMOL/L ALT (SGPT) 7 7 - 56 U/L Anion Gap 7 [...] questions. Specimen Performing Laboratory Blood MAIN LAB [address] [place] [address] * POC GLUCOSE (05/13/2017 8:24 PM) Component Value Ref Range Glucose, POC 110 (H) 70 - 100 MG/DL Specimen Performing Laboratory [facility] MAIN [facility] [address] [place], [place] [id number] * POC GLUCOSE (05/13/2017 4:47 PM) Component Value Ref Range Glucose, POC 97 70 - 100 MG/DL Specimen Performing Laboratory [facility] [address] [place], [place] [id number] * RVP VIRAL PANEL PCR (05/13/2017 2:35 [...] NOT DETECTED Specimen Performing Laboratory Nasal Wash [facility] [address] [place], [place] [id number] * POC GLUCOSE (05/13/2017 12:22 PM) Component Value Ref Range Glucose, POC 160 (H) 70 - 100 MG/DL Specimen Performing Laboratory [facility] [address] [place], [place] [id number] * POC GLUCOSE (05/13/2017 7:47 AM) Component Value Ref Range Glucose, POC 133 (H) 70 - 100 MG/DL Specimen Performing Laboratory [facility] [address] [place] [address] * CBC AND DIFF (05/13/2017 2:37 AM) Component Value Ref Range White Blood Cells 0.8 (LL)Comment: Value noted, value unchanged 4.5 - 11.0 K/UL RBC 2.37 (L) 4.0 - 5.0 M/UL Hemoglobin 7.2 (L) 12.0 - 15.0 GM/DL Hematocrit 20.0 (L) 36 - 45 % MCV 84.2 80 - 100 FL MCH 30.2 26 - 34 PG MCHC 35.9 32.0 - 36.0 G/DL RDW 16.0 (H) 11 - 15 % Platelet Count 16 (LL)Comment: Value noted, Value unchanged 150 - 400 K/UL MPV 8.6 7 - 11 FL Neutrophils 3 (L) 41 - 77 % Lymphocytes 97 (H) 24 - 44 % Monocytes 0 (L) 4 - 12 % Eosinophils 0 0 - 5 % Basophils 0 0 - 2 % Absolute Neutrophil Count 0.00 (L) 1.8 - 7.0 K/UL Absolute Lymph Count 0.70 (L) 1.0 - 4.8 K/UL Absolute Monocyte Count 0.00 0 - 0.80 K/UL Absolute Eosinophil Count 0.00 0 - 0.45 K/UL Absolute Basophil Count 0.00 0 - 0.20 K/UL Specimen Performing Laboratory Blood MAIN LAB [address] [id number] * MAGNESIUM (05/13/2017 2:37 AM) Component Value Ref Range Magnesium 2.1 1.6 - 2.6 mg/dL Specimen Performing Laboratory Blood MAIN LAB [address] [id number] * COMPREHENSIVE METABOLIC PANEL (05/13/2017 2:37 AM) Component Value Ref Range Sodium 142 137 - 147 MMOL/L Potassium 3.7 3.5 - 5.1 MMOL/L Chloride 108 98 - 110 MMOL/L Glucose 122 (H) 70 - 100 MG/DL Blood Urea Nitrogen 32 (H) 7 - 25 MG/DL Creatinine 0.78 0.4 - 1.00 MG/DL Calcium 8.5 8.5 - 10.6 MG/DL Total Protein 5.3 (L) 6.0 - 8.0 G/DL Total Bilirubin 1.2 0.3 - 1.2 MG/DL Albumin 2.4 (L) 3.5 - 5.0 G/DL Alk Phosphatase 116 (H) 25 - 110 U/L AST (SGOT) 8 7 - 40 U/L CO2 27 21 - 30 MMOL/L ALT (SGPT) 4 (L) 7 - 56 U/L Anion Gap 7 [...] Specimen Performing Laboratory Blood MAIN LAB [address] [id number] * POC GLUCOSE (05/13/2017 2:35 AM) Component Value Ref Range Glucose, POC 134 (H) 70 - 100 MG/DL Specimen Performing Laboratory [facility] [address] [place] [address] * POC GLUCOSE (05/12/2017 9:09 PM) Component Value Ref Range Glucose, POC 145 (H) 70 - 100 MG/DL Specimen Performing Laboratory [facility] [address] [place] [address] * POC GLUCOSE (05/12/2017 5:19 PM) Component Value Ref Range Glucose, POC 89 70 - 100 MG/DL Specimen Performing Laboratory [facility] [address] [place] [address] * RUBIA PATH MOLEC REF LAB SCAN (05/12/2017 4:33 PM) Narrative Ordered by an unspecified provider. * POC GLUCOSE (05/12/2017 1:19 PM) Component Value Ref Range Glucose, POC 209 (H) 70 - 100 MG/DL Specimen Performing Laboratory [facility] [address] [place] [address] * POC GLUCOSE (05/12/2017 8:37 AM) Component Value Ref Range Glucose, POC 151 (H) 70 - 100 MG/DL Specimen Performing Laboratory [facility] [address] [place] [address] * MANUAL DIFF (05/12/2017 4:10 AM) Component Value Ref Range Segmented Neutrophils 4 (L) 41 - 77 % Lymphocytes 91 (H) 24 - 44 % Monocytes 5 4 - 12 % Platelet Estimate MKD DEC RBC Morph ANISO OVALO Specimen Performing Laboratory [facility] [address] [place] [address] * CBC AND DIFF (05/12/2017 4:10 AM) Component Value Ref Range White Blood Cells 0.5 (LL)Comment: Value noted, value unchanged 4.5 - 11.0 K/UL RBC 2.51 (L) 4.0 - 5.0 M/UL Hemoglobin 7.3 (L) 12.0 - 15.0 GM/DL Hematocrit 21.6 (L) 36 - 45 % MCV 86.0 80 - 100 FL MCH 29.2 26 - 34 PG MCHC 34.0 32.0 - 36.0 G/DL RDW 15.4 (H) 11 - 15 % Platelet Count 24 (LL)Comment: Value noted, Value unchanged 150 - 400 K/UL MPV 7.5 7 - 11 FL Specimen Performing Laboratory Blood MAIN LAB [address] [place] [address] * MAGNESIUM (05/12/2017 4:10 AM) Component Value Ref Range Magnesium 1.8 1.6 - 2.6 mg/dL Specimen Performing Laboratory Blood MAIN LAB [address] [place] [address] * COMPREHENSIVE METABOLIC PANEL (05/12/2017 4:10 AM) Component Value Ref Range Sodium 140 137 - 147 MMOL/L Potassium 4.2 3.5 - 5.1 MMOL/L Chloride 107 98 - 110 MMOL/L Glucose 129 (H) 70 - 100 MG/DL Blood Urea Nitrogen 28 (H) 7 - 25 MG/DL Creatinine 0.56 0.4 - 1.00 MG/DL Calcium 8.5 8.5 - 10.6 MG/DL Total Protein 5.3 (L) 6.0 - 8.0 G/DL Total Bilirubin 1.4 (H) 0.3 - 1.2 MG/DL Albumin 2.5 (L) 3.5 - 5.0 G/DL Alk Phosphatase 90 25 - 110 U/L AST (SGOT) 7 7 - 40 U/L CO2 28 21 - 30 MMOL/L ALT (SGPT) 6 (L) 7 - 56 U/L Anion Gap 5 [...] Specimen Performing Laboratory Blood MAIN LAB [address] [place] [address] * POC GLUCOSE (05/11/2017 10:54 PM) Component Value Ref Range Glucose, POC 146 (H) 70 - 100 MG/DL Specimen Performing Laboratory MAIN LAB [address] [place] [address] * POC GLUCOSE (05/11/2017 8:29 PM) Component Value Ref Range Glucose, POC 146 (H) 70 - 100 MG/DL Specimen Performing Laboratory MAIN LAB [address] [place] [address] * POC GLUCOSE (05/11/2017 4:49 PM) Component Value Ref Range Glucose, POC 149 (H) 70 - 100 MG/DL Specimen Performing Laboratory [facility] [address] [place] [address] * NON-HANDKERCHIEF MAKER CYTOLOGY (BODY FLUIDS/TISSUE) (05/11/2017 2:55 PM) Component Value Ref Range Cytology [facility] [email or web address] Sonali Snow MD, Director Cytopathology Department of Pathology and Laboratory Medicine [address] [place] [id number] Surgical Pathology Office: [phone] CYTOLOGY REPORT NAME: GISELLE MORAES CYTOLOGY #: [id number] MR #: [id number] ALT ID #: BILLING #: [id number] LOCATION: DATE OF PROCEDURE: 05/11/2017 AGE: 56 SEX: F DATE RECEIVED: 05/11/2017 : 1960 TIME RECEIVED: 14:55 PHYSICIAN: RUTH SIM, JAILENE-BODY WORK [employer] TRIMMER DATE OF REPORT: 05/12/2017 COPY TO: VIRA NAGY MD BAIRDDIPESH LEWIS MCH NEIL C DUNAVIN, MD MALE,[facility] CRISTINA SY MD DATE OF PRINTIN05/12/2017 Material Received: A: Cerebrospinal Fluid History: 56 year old female with a clinical history of acute myeloid leukemia. Gross Description: (1tp) 1ml clear, colorless fluid. ################################################## ###################### Final Diagnosis: A. Cerebrospinal Fluid: Negative for malignant cells. Please also see concurrent flow cytometry report ([id number]) which shows a negative phenotypic study. Attestation: By this signature, I attest that I have personally formulated the final interpretation expressed in this report and that the above diagnosis is based upon my examination of the slides and/or other material indicated in this report. +++Electronically Signed Out By+++ mark/05/12/2017 Interpreted by: MD Luna Mittal, Resident Specimen Performing Laboratory [facility] RESULTS * POC GLUCOSE (05/11/2017 11:42 AM) Component Value Ref Range Glucose, POC 149 (H) 70 - 100 MG/DL Specimen Performing Laboratory [facility] MAIN [facility] [address] [place] [address] * IR LUMBAR PUNCTURE (05/11/2017 10:28 AM) Specimen Performing Laboratory [facility] RAD RESULTS Impressions 1.Successful fluoroscopic guided lumbar puncture with 5 mL CSF collected and sent for the requested studies. 2.Administration of intrathecal chemotherapy under the direction of the Hematology / Oncology team. I, Joey Galarza M.D, the attending radiologist, was present for [...] expressed in this report Finalized by JOEY GALARZA on 05/11/2017 1:53 PM. Dictated by Bill Hirsch M.D. on 05/11/2017 1:51 PM. Narrative FLUOROSCOPICALLY-GUIDED LUMBAR PUNCTURE WITH INTRATHECAL CHEMOTHERAPY CLINICAL HISTORY: 48-year-old female. AML. MEDICATIONS: 10 mL subcutaneous 2% lidocaine HANDS PARTER: JOEY Hirsch MD TOTAL FLUOROSCOPY DOSE: 35.31 mGy INTRATHECAL CHEMOTHERAPY: Administered under the direction of the Hematology / Oncology team. TECHNIQUE AND FINDINGS: The procedures and interpretation described herein were directly supervised and/ or personally performed by JOEY GALARZA. A brief history and physical was obtained [...] AML. MEDICATIONS: 10 mL subcutaneous 2% lidocaine HANDS PARTER: JOEY Hirsch MD TOTAL FLUOROSCOPY DOSE: 35.31 mGy INTRATHECAL CHEMOTHERAPY: Administered under the direction of the Hematology / Oncology team. TECHNIQUE AND FINDINGS: The procedures and interpretation described herein were directly supervised and/ or personally performed by JOEY GALARZA. A brief history and physical was obtained [...] participating. Overlapping portions were non carrizales and Kim was immediately available. I interpret the critical and carrizales portion of this procedure to have been needle access. @TT Approved by Bill Hirsch M.D. on 05/11/2017 1:52 PM By my electronic signature, I attest that I have personally reviewed the images for this examination and formulated the interpretations and opinions expressed in this report Finalized by JOEY GALARZA on 05/11/2017 1:53 PM. Dictated by Bill Hirsch M.D. on 05/11/2017 1:51 PM. * IR BONE MARROW BIOPSY (05/11/2017 10:28 AM) Specimen Performing Laboratory [facility] RESULTS Impressions Successful image-guided bone marrow aspiration and core biopsy. I, Joey Galarza M.D, the attending radiologist, was present for [...] expressed in this report Finalized by JOEY GALARZA on 05/11/2017 1:53 PM. Dictated by Bill Hirsch M.D. on 05/11/2017 1:52 PM. Narrative BONE MARROW ASPIRATION AND BIOPSY UNDER FLUOROSCOPIC GUIDANCE CLINICAL HISTORY: 56 year old female, AML. MEDICATIONS: 4 mg IV Versed 200 mcg IV Fentanyl 10 mL subcutaneous 2% lidocaine SEDATION TIME: 9 minutes HANDS PARTER: JOEY Hirsch MD TOTAL FLUOROSCOPY DOSE: 2.23 mGy TECHNIQUE AND FINDINGS: The procedures and interpretation described herein were directly supervised and/ or personally performed by JOEY GALARZA. A brief history and physical was obtained [...] subcutaneous 2% lidocaine SEDATION TIME: 9 minutes HANDS PARTER: JOEY Hirsch MD TOTAL FLUOROSCOPY DOSE: 2.23 mGy TECHNIQUE AND FINDINGS: The procedures and interpretation described herein were directly supervised and/ or personally performed by JOEY GALARZA. A brief history and physical was obtained [...] expressed in this report Finalized by JOEY GALARZA on 05/11/2017 1:53 PM. Dictated by Bill Hirsch M.D. on 05/11/2017 1:52 PM. * BONE MARROW (05/11/2017 10:22 AM) Component Value Ref Range PATHOLOGY REPORT [facility] [email or web address] Sonali Snow MD, PhD, Director of Anatomic Pathology Department of Pathology and Laboratory Medicine [address] [place] [phone] Surgical Pathology Office: [phone] SURGICAL PATHOLOGY REPORT NAME: GISELLE MORAES SURG PATH #: [id number] MR #: [id number] ALT ID #: LOCATION: 41 DATE OF PROCEDURE: 05/11/2017 AGE: 56 SEX: F DATE RECEIVED: 05/11/2017 : 1960 TIME RECEIVED: 10:22 PHYSICIAN: KEENA DRIVER DATE OF REPORT: 05/12/2017 COPY TO: DATE OF PRINTIN05/12/2017 ################################################## ###################### Final Diagnosis: Bone marrow, left iliac crest, aspirate, biopsy, clot, and touch prep: Hypocellular marrow (5%) with decreased trilineage hematopoiesis and 1% blasts Peripheral blood smear: Normocytic anemia, absolute neutropenia, absolute lymphopenia, and thrombocytopenia Attestation: By this signature, I attest that I have personally formulated the final interpretation expressed in this report and that the above diagnosis is based upon my examination of the slides and/or other material indicated in this report. Willy Serrato MD Resident lkr/05/12/2017 Material Received: A: left bone marrow clot B: left bone marrow biopsy History: 56-year-old female with history of acute myeloid leukemia Gross Description: A. Received in Zinc formalin labeled "left bone marrow clot" is a 1.2 x 1.0 x 0.3 cm aggregate of friable red-brown clotted blood elements. The specimen is entirely submitted in cassette A1. (lmt) B. Received in Zinc formalin labeled "left bone marrow biopsy" is a 0.6 cm in length and 0.2 cm in diameter cylindrical, yellow-marshall firm piece of tissue. The specimen is submitted in cassette B1 after decalcification. (lmt) 05/11/2017 Microscopic Description: CBC Data: HGB 6.9 (g/dL); RBC 2.32 (m/uL); MCV 85.4 (FL); RDW 16.9 (%); WBC 0.5 (k/uL); PLT 10 (k/uL). Blood Smear Diff (%): Segmented neutrophils 1; lymphocytes 98; monocytes 1 Blood Smear Morphology: RBC: Normocytic anemia WBC: Leukopenia including absolute neutropenia and absolute lymphopenia Platelets: Thrombocytopenia Bone Marrow Aspirate/Touch Prep Morphology: Aspirate Adequacy: Adequate Touch Prep Adequacy: Adequate Cellularity: Decreased, 5% Megakaryocytes: Decreased Blasts: Normal Erythroid: Decreased Granulocytes: Decreased Lymphocytes: Normal Plasma Cells: Normal Bone Marrow Differential Cell Count (%): Blasts: 1 Promyelocytes: 2 Myelocytes: 5 Metamyelocytes: 2 Segs/Bands: 1 Eosinophils: 0 Erythroid: 0 Monocytes: 1 Lymphocytes: 27 Plasma cells: 61 Bone Marrow Core Biopsy: Adequacy: Inadequate, aspiration artifact Length: 0.6 cm Bone Marrow Cell Clot: Adequacy: Inadequate, absent spicules Additional Stains: Iron Stain: Not Performed Immunohistochemistry: Not Performed Chromogenic In Situ Hybridization: Not Performed Other Special Stains: Not Performed Ancillary Studies: Flow Cytometry: Performed, See separate report ([id number]) which reports a minor population (0.04%) of neoplastic myeloid blasts Cytogenetics: Performed, See separate report Fluorescence In Situ Hybridization: Not Performed Molecular Genetics: Not Performed Preliminary Diagnosis: Not Performed If immunohistochemical stains and/or in situ hybridization are cited in this report, the performance characteristics were determined by the Department of Pathology and Laboratory Medicine of the [facility] ([employer]) in compliance with [...] of Pathology and Laboratory Medicine of the [facility]. It has not been cleared or approved by the FDA. The FDA has determined that such clearance or approval is not necessary. Specimen Performing Laboratory [facility] RESULTS * FLOW CYTOMETRY (05/11/2017 10:09 AM) Component Value Ref Range PATHOLOGY REPORT [facility] [email or web address] Doris Rodarte MD, Director of Clinical Laboratory Fede West MD, Director of Flow Cytometry Laboratory Department of Pathology and Laboratory Medicine [address] [place] [phone] Surgical Pathology Office: [phone] FLOW CYTOMETRY REPORT NAME: GISELLE MORAES SURG PATH #: [id number] MR #: [id number] SPECIMEN CLASS: LC BILLING #: [id number] ALT ID #: LOCATION: 41 DATE OF PROCEDURE: 05/11/2017 AGE: 56 SEX: F DATE RECEIVED: 05/11/2017 : 1960 TIME RECEIVED: 11:28 PHYSICIAN: KEENA DRIVER DATE OF REPORT: 05/11/2017 COPY TO: MD BRIE ESTRADA STEVEN Q MCH SATTERWHITE, LEWIS MCH NEIL C DUNAVIN, MD MALE,[facility] LAUREN SY MD DATE OF PRINTIN05/11/2017 Material Received: A: Cerebrospinal fluid tube 1 History: 56 year old female with history of acute myeloid leukemia. ################################################## ###################### Final Diagnosis: Cerebrospinal fluid tube 1, flow cytometry: Negative immunophenotypic study. See interpretation. Interpretation: Myeloid blasts comprise 0% of total events. There is no immunophenotypic evidence of acute myeloid leukemia or neoplastic myeloid blasts. Attestation: By this signature, I attest that I have personally formulated the final interpretation expressed in this report and that the above diagnosis is based upon my examination of the slides and/or other material indicated in this report. +++Electronically Signed Out By+++ sue/05/11/2017 Interpreted by: MD Linnette Rangel MD, PhD Fellow 05/11/2017 ################################################## ###################### Lab Data: Flow Cytometry - Acute Myeloid Leukemia Screen Myeloid Associated Markers (% Positive Cells): AV07b=7; CD13=0; CD33=0; AF613=3 Miscellaneous Markers (% Positive Cells): CD34=0; RM97=449; HLA-Dr=0 Cell Viability (%): QNS Number of Cells Analyzed: 138 Total Number of Markers: 7 Summary of Marker Combinations: 34/117/33/13/11b/45/38/Dr This test was developed and its performance characteristics determined by the [facility] Flow Cytometry Laboratory. It has not been cleared or approved by the U.S. Food and Drug Administration (FDA). The FDA has determined that such clearance or approval is not necessary. Specimen Performing Laboratory [facility] RESULTS * CSF TUBE VOLUMES (05/11/2017 10:09 AM) Component Value Ref Range CSF Tube 1 5.0 mL CSF Tube 2 0.0 mL CSF Tube 3 0.0 mL CSF Tube 4 0.0 mL Specimen Performing Laboratory [facility] RESULTS * LEUKEMIA/LYMPHOMA PANEL FLUID/TISSUE (05/11/2017 10:09 AM) Component Value Ref Range Leuk/Lymph Interpretation SEE PATHOLOGY REPORT Specimen/LLM CSF Specimen Performing Laboratory Cerebrospinal fluid - [facility] MAIN LAB Cerebrospinal Fluid [address] [place] [address] * CELL COUNT W/DIFF-CSF (05/11/2017 10:09 AM) [...] report. Specimen Performing Laboratory Cerebrospinal fluid - MAIN LAB Cerebrospinal Fluid [address] [place] [address] * TOTAL PROTEIN-CSF (05/11/2017 10:09 AM) Component Value Ref Range Total Protein,CSF 31 15 - 45 MG/DL Specimen Performing Laboratory Cerebrospinal fluid - [facility] Cerebrospinal Fluid [address] [place] [address] * GLUCOSE-CSF (05/11/2017 10:09 AM) Component Value Ref Range Glucose,CSF 64 40 - 75 MG/DL Xanthrochromia,CSF NONE Specimen Performing Laboratory Cerebrospinal fluid - [facility] Cerebrospinal Fluid [address] [place] [address] * FLOW CYTOMETRY (05/11/2017 9:51 AM) Component Value Ref Range PATHOLOGY REPORT [facility] [email or web address] Doris Rodarte MD, Director of Clinical Laboratory Fede West MD, Director of Flow Cytometry Laboratory Department of Pathology and Laboratory Medicine [address] [place] [phone] Surgical Pathology Office: [phone] FLOW CYTOMETRY REPORT NAME: GISELLE MORAES SURG PATH #: [id number] MR #: [id number] SPECIMEN CLASS: LC BILLING #: [id number] ALT ID #: LOCATION: 41 DATE OF PROCEDURE: 05/11/2017 AGE: 56 SEX: F DATE RECEIVED: 05/11/2017 : 1960 TIME RECEIVED: 10:10 PHYSICIAN: KEENA DRIVER DATE OF REPORT: 05/12/2017 COPY TO: MD BRIE ESTRADA STEVEN Q MCH LUIS WHITLEY MD MALE,[facility] CRISTINA SY MD DATE OF PRINTIN05/12/2017 Material Received: A: Bone Marrow History: 56 year old female with a history of acute myeloid leukemia ################################################## ###################### Final Diagnosis: Bone marrow, flow cytometry: Minor population of neoplastic myeloid blasts (0.04%) Interpretation: Myeloid blasts comprise 0.04% of total events and show decreased expression of CD38 and CD117; and asynchronous expression of several antigen combinations (CD13/CD33, and CD33/CD38). These results are diagnostic of a minor population of neoplastic myeloid blasts. Attestation: By this signature, I attest that I have personally formulated the final interpretation expressed in this report and that the above diagnosis is based upon my examination of the slides and/or other material indicated in this report. +++Electronically Signed Out By+++ jaheladio/05/11/2017 Interpreted by: MD Linnette Torres MD, PhD Fellow 05/12/2017 ################################################## ###################### Lab Data: Flow Cytometry - Acute Myeloid Leukemia, Minimal Residual Disease Panel Analytic sensitivity of the lower detection limit in this assay is 0.01% Myeloid Associated Markers (% Positive Cells): HR46v=8; CD13=52; CD14=7; CD15=0; CD33=10; CD36=9; CD64=4; HI825=13; B Cell Associated Markers (% Positive Cells): CD19=1; CD22=1; T Cell Associated Markers (% Positive Cells): CD2=2; CD4=3; CD5=2; CD7=2; Miscellaneous Markers (% Positive Cells): IA67=267; CD38=98; DV97=568; CD56=8; VY524=1; HLA-Dr=91; Cell Viability (%): n/a Number of Cells Analyzed: 71,553 Total Number of Markers: 32 Summary of Marker Combinations: 7/33/11b/34/13///; Dr/117/4/34/123///; Dr/56/36/34/64/45/14/;2/22/5/34/15// This test was developed and its performance characteristics determined by the [facility] Flow Cytometry Laboratory. It has not been cleared or approved by the U.S. Food and Drug Administration (FDA). The FDA has determined that such clearance or approval is not necessary. Specimen Performing Laboratory LAB RESULTS * BONE MARROW BIOPSY IR (05/11/2017 9:51 AM) Component Value Ref Range Bone Marrow BX IR SEE PATHOLOGY REPORT Specimen Performing Laboratory [facility] [address] [place] [address] * CHROMOSOMES BONE MARROW (05/11/2017 9:51 AM) Component Value Ref Range Chromosomes Bone Marrow SEE COAL CHEMIST FOR REPORT Specimen Performing Laboratory Bone Marrow [facility] [address] [place] [address] * LEUKEMIA/LYMPHOMA PNL, BONE MARROW (05/11/2017 9:51 AM) Component Value Ref Range Leuk/Lymph Interpretation SEE PATHOLOGY REPORT Specimen/LLM BONE MARROW Specimen Performing Laboratory Bone Marrow MAIN LAB [address] [place] [address] * BONE MARROW ASP (05/11/2017 9:51 AM) Component Value Ref Range Bone Marrow Asp SEE PATHOLOGY REPORT Specimen Performing Laboratory Bone Marrow MAIN LAB [address] [place] [address] * TRANSFUSE APHERESIS PLATELETS (05/11/2017 7:33 AM) * TRANSFUSE APHERESIS PLATELETS (05/11/2017 7:33 AM) * PREPARE APHERESIS PLATELETS (05/11/2017 4:10 AM) Component Value Ref Range Units Ordered 1 Unit Number [id number] Blood Component Type APHERESIS PLT,LEUKO REDUCED,IRRADIATED,2ND CONT. Unit Division 0 Status OF Unit TRANSFUSED Transfusion Status OK TO TRANSFUSE Specimen Performing Laboratory Other (Specify) MAIN LAB [address] [id number] * POC GLUCOSE (05/11/2017 3:12 AM) Component Value Ref Range Glucose, POC 123 (H) 70 - 100 MG/DL Specimen Performing Laboratory MAIN LAB [address] [id number] * CBC AND DIFF (05/11/2017 2:16 AM) Component Value Ref Range White Blood Cells 0.5 (LL)Comment: Value noted, value unchanged 4.5 - 11.0 K/UL RBC 2.32 (L) 4.0 - 5.0 M/UL Hemoglobin 6.9 (L) 12.0 - 15.0 GM/DL Hematocrit 19.9 (L) 36 - 45 % MCV 85.4 80 - 100 FL MCH 29.8 26 - 34 PG MCHC 34.9 32.0 - 36.0 G/DL RDW 16.9 (H) 11 - 15 % Platelet Count 10 (LL)Comment: Value noted, Value unchanged 150 - 400 K/UL MPV 7.5 7 - 11 FL Neutrophils 1 (L) 41 - 77 % Lymphocytes 98 (H) 24 - 44 % Monocytes 1 (L) 4 - 12 % Eosinophils 0 0 - 5 % Basophils 0 0 - 2 % Absolute Neutrophil Count 0.00 (L) 1.8 - 7.0 K/UL Absolute Lymph Count 0.50 (L) 1.0 - 4.8 K/UL Absolute Monocyte Count 0.00 0 - 0.80 K/UL Absolute Eosinophil Count 0.00 0 - 0.45 K/UL Absolute Basophil Count 0.00 0 - 0.20 K/UL Specimen Performing Laboratory Blood MAIN LAB [address] [place] [address] * MAGNESIUM (05/11/2017 2:16 AM) Component Value Ref Range Magnesium 2.1 1.6 - 2.6 mg/dL Specimen Performing Laboratory Blood MAIN LAB [address] [place] [address] * COMPREHENSIVE METABOLIC PANEL (05/11/2017 2:16 AM) Component Value Ref Range Sodium 141 137 - 147 MMOL/L Potassium 3.8 3.5 - 5.1 MMOL/L Chloride 106 98 - 110 MMOL/L Glucose 117 (H) 70 - 100 MG/DL Blood Urea Nitrogen 31 (H) 7 - 25 MG/DL Creatinine 0.66 0.4 - 1.00 MG/DL Calcium 8.2 (L) 8.5 - 10.6 MG/DL Total Protein 5.2 (L) 6.0 - 8.0 G/DL Total Bilirubin 1.3 (H) 0.3 - 1.2 MG/DL Albumin 2.3 (L) 3.5 - 5.0 G/DL Alk Phosphatase 70 25 - 110 U/L AST (SGOT) 6 (L) 7 - 40 U/L CO2 30 21 - 30 MMOL/L ALT (SGPT) 6 (L) 7 - 56 U/L Anion Gap 5 [...] questions. Specimen Performing Laboratory Blood MAIN LAB [address] [place] [address] * POC GLUCOSE (05/10/2017 8:13 PM) Component Value Ref Range Glucose, POC 148 (H) 70 - 100 MG/DL Specimen Performing Laboratory MAIN LAB [address] [place] [address] * POC GLUCOSE (05/10/2017 5:27 PM) Component Value Ref Range Glucose, POC 184 (H) 70 - 100 MG/DL Specimen Performing Laboratory MAIN LAB [address] [place] [address] * POC GLUCOSE (05/10/2017 12:39 PM) Component Value Ref Range Glucose, POC 193 (H) 70 - 100 MG/DL Specimen Performing Laboratory MAIN LAB [address] [place], [place] [id number] * TRANSFUSE RBC'S NON-BLEEDING PT (05/10/2017 9:44 AM) Specimen Performing Laboratory Blood * TRANSFUSE RBC'S NON-BLEEDING PT (05/10/2017 9:44 AM) Specimen Performing Laboratory Blood * POC GLUCOSE (05/10/2017 9:38 AM) Component Value Ref Range Glucose, POC 147 (H) 70 - 100 MG/DL Specimen Performing Laboratory MAIN LAB [address] [place], [place] [id number] * POC GLUCOSE (05/10/2017 3:36 AM) Component Value Ref Range Glucose, POC 127 (H) 70 - 100 MG/DL Specimen Performing Laboratory MAIN LAB [address] [place] [address] * VRE SCREEN (05/10/2017 1:50 AM) Component Value Ref Range Battery Name VRE SCREEN Specimen Description PERIRECTAL SWAB Special Requests NONE Culture NO VRE ISOLATED Report Status FINAL 05/11/2017 Specimen Performing Laboratory Perirectal Swab MAIN LAB [address] [place] [address] * CBC AND DIFF (05/10/2017 1:50 AM) Component Value Ref Range White Blood Cells 0.5 (LL)Comment: Value noted, value unchanged 4.5 - 11.0 K/UL RBC 2.35 (L) 4.0 - 5.0 M/UL Hemoglobin 6.8 (L) 12.0 - 15.0 GM/DL Hematocrit 19.9 (L) 36 - 45 % MCV 84.7 80 - 100 FL MCH 29.0 26 - 34 PG MCHC 34.3 32.0 - 36.0 G/DL RDW 17.0 (H) 11 - 15 % Platelet Count 14 (LL)Comment: Value noted, Value unchanged 150 - 400 K/UL MPV 7.9 7 - 11 FL Neutrophils 2 (L) 41 - 77 % Lymphocytes 97 (H) 24 - 44 % Monocytes 1 (L) 4 - 12 % Eosinophils 0 0 - 5 % Basophils 0 0 - 2 % Absolute Neutrophil Count 0.00 (L) 1.8 - 7.0 K/UL Absolute Lymph Count 0.50 (L) 1.0 - 4.8 K/UL Absolute Monocyte Count 0.00 0 - 0.80 K/UL Absolute Eosinophil Count 0.00 0 - 0.45 K/UL Absolute Basophil Count 0.00 0 - 0.20 K/UL Specimen Performing Laboratory Blood MAIN LAB [address] [place] [address] * MAGNESIUM (05/10/2017 1:50 AM) Component Value Ref Range Magnesium 1.9 1.6 - 2.6 mg/dL Specimen Performing Laboratory Blood MAIN LAB [address] [place] [address] * COMPREHENSIVE METABOLIC PANEL (05/10/2017 1:50 AM) Component Value Ref Range Sodium 138 137 - 147 MMOL/L Potassium 4.1 3.5 - 5.1 MMOL/L Chloride 105 98 - 110 MMOL/L Glucose 142 (H) 70 - 100 MG/DL Blood Urea Nitrogen 31 (H) 7 - 25 MG/DL Creatinine 0.77 0.4 - 1.00 MG/DL Calcium 8.1 (L) 8.5 - 10.6 MG/DL Total Protein 5.1 (L) 6.0 - 8.0 G/DL Total Bilirubin 1.2 0.3 - 1.2 MG/DL Albumin 2.3 (L) 3.5 - 5.0 G/DL Alk Phosphatase 55 25 - 110 U/L AST (SGOT) 9 7 - 40 U/L CO2 30 21 - 30 MMOL/L ALT (SGPT) 8 7 - 56 U/L Anion Gap 3 [...] Pharmacist for questions. Specimen Performing Laboratory Blood [facility] [address] [place] [address] * POC GLUCOSE (05/09/2017 10:05 PM) Component Value Ref Range Glucose, POC 142 (H) 70 - 100 MG/DL Specimen Performing Laboratory [facility] [address] [place] [address] * POC GLUCOSE (05/09/2017 5:26 PM) Component Value Ref Range Glucose, POC 106 (H) 70 - 100 MG/DL Specimen Performing Laboratory [facility] [address] [place] [address] * POC GLUCOSE (05/09/2017 1:40 PM) Component Value Ref Range Glucose, POC 184 (H) 70 - 100 MG/DL Specimen Performing Laboratory [facility] [address] [place] [address] * POC GLUCOSE (05/09/2017 11:01 AM) Component Value Ref Range Glucose, POC 145 (H) 70 - 100 MG/DL Specimen Performing Laboratory [facility] [address] [place] [address] * CBC AND DIFF (05/09/2017 4:05 AM) Component Value Ref Range White Blood Cells 0.4 (LL) 4.5 - 11.0 K/UL Comment: Value noted, value unchanged Too few WBC's for Differential RBC 2.52 (L) 4.0 - 5.0 M/UL Hemoglobin 7.5 (L) 12.0 - 15.0 GM/DL Hematocrit 21.3 (L) 36 - 45 % MCV 84.4 80 - 100 FL MCH 29.7 26 - 34 PG MCHC 35.2 32.0 - 36.0 G/DL RDW 16.9 (H) 11 - 15 % Platelet Count 23 (LL)Comment: Value noted, Value unchanged 150 - 400 K/UL MPV 6.9 (L) 7 - 11 FL Specimen Performing Laboratory Blood MAIN LAB [address] [place] [address] * MAGNESIUM (05/09/2017 4:05 AM) Component Value Ref Range Magnesium 1.7 1.6 - 2.6 mg/dL Specimen Performing Laboratory Blood MAIN LAB [address] [place] [address] * COMPREHENSIVE METABOLIC PANEL (05/09/2017 4:05 AM) Component Value Ref Range Sodium 139 137 - 147 MMOL/L Potassium 3.9 3.5 - 5.1 MMOL/L Chloride 103 98 - 110 MMOL/L Glucose 140 (H) 70 - 100 MG/DL Blood Urea Nitrogen 30 (H) 7 - 25 MG/DL Creatinine 0.77 0.4 - 1.00 MG/DL Calcium 8.2 (L) 8.5 - 10.6 MG/DL Total Protein 5.3 (L) 6.0 - 8.0 G/DL Total Bilirubin 1.7 (H) 0.3 - 1.2 MG/DL Albumin 2.4 (L) 3.5 - 5.0 G/DL Alk Phosphatase 41 25 - 110 U/L AST (SGOT) 8 7 - 40 U/L CO2 31 (H) 21 - 30 MMOL/L ALT (SGPT) 7 7 - 56 U/L Anion Gap 5 [...] Pharmacist for questions. Specimen Performing Laboratory Blood [facility] [address] [place], [place] [id number] * POC GLUCOSE (05/08/2017 9:00 PM) Component Value Ref Range Glucose, POC 192 (H) 70 - 100 MG/DL Specimen Performing Laboratory [facility] [address] [place] [address] * POC GLUCOSE (05/08/2017 5:15 PM) Component Value Ref Range Glucose, POC 120 (H) 70 - 100 MG/DL Specimen Performing Laboratory [facility] [address] [place] [address] * POC GLUCOSE (05/08/2017 3:27 PM) Component Value Ref Range Glucose, POC 132 (H) 70 - 100 MG/DL Specimen Performing Laboratory [facility] [address] [place] [address] * POC GLUCOSE (05/08/2017 7:45 AM) Component Value Ref Range Glucose, POC 155 (H) 70 - 100 MG/DL Specimen Performing Laboratory [facility] [address] [place], [place] [id number] * CBC (05/08/2017 6:15 AM) Component Value [...] - 11 FL Specimen Performing Laboratory Blood [facility] [address] [place], [place] [id number] * PREPARE APHERESIS PLATELETS (05/08/2017 5:36 AM) Component Value Ref Range Units Ordered 1 Unit Number [id number] Blood Component Type APHERESIS PLT,LEUKO REDUCED,IRRADIATED,2ND CONT. Unit Division 0 Status OF Unit TRANSFUSED Transfusion Status OK TO TRANSFUSE Specimen Performing Laboratory Other (Specify) MAIN LAB [address] [place] [address] * TYPE & CROSSMATCH (05/08/2017 4:35 AM) Component Value Ref Range Units Ordered 3 Crossmatch Expires 05/11/2017 Record Check FOUND ABO/RH(D) A POS Antibody Screen NEG Unit Number [id number] Blood Component Type RBC,ADSOL,LEUKO REDUCED,IRRADIATED Unit Division 0 Status OF Unit TRANSFUSED Transfusion Status OK TO TRANSFUSE Crossmatch Result COMPATIBLE,ELECTRONIC Unit Number [id number] Blood Component Type RBC,ADSOL,LEUKO REDUCED,IRRADIATED Unit Division 0 Status OF Unit TRANSFUSED Transfusion Status OK TO TRANSFUSE Crossmatch Result COMPATIBLE,ELECTRONIC Unit Number [id number] Blood Component Type RBC,ADSOL,LEUKO REDUCED,IRRADIATED Unit Division 0 Status OF Unit TRANSFUSED Transfusion Status OK TO TRANSFUSE Crossmatch Result COMPATIBLE,ELECTRONIC Specimen Performing Laboratory Blood MAIN LAB [address] [place] [address] * CBC AND DIFF (05/08/2017 4:35 AM) Component Value Ref Range White Blood Cells 0.3 (LL) 4.5 - 11.0 K/UL Comment: Value noted, value unchanged Too few WBC's for Differential RBC 3.50 (L) 4.0 - 5.0 M/UL Hemoglobin 10.6 (L) 12.0 - 15.0 GM/DL Hematocrit 29.8 (L) 36 - 45 % MCV 85.2 80 - 100 FL MCH 30.4 26 - 34 PG MCHC 35.7 32.0 - 36.0 G/DL RDW 18.0 (H) 11 - 15 % Platelet Count 6 (LL)Comment: Value noted, Value unchanged 150 - 400 K/UL MPV 9.2 7 - 11 FL Specimen Performing Laboratory Blood MAIN LAB [address] [place] [address] * MAGNESIUM (05/08/2017 4:35 AM) Component Value Ref Range Magnesium 2.0 1.6 - 2.6 mg/dL Specimen Performing Laboratory Blood MAIN LAB [address] [place] [address] * COMPREHENSIVE METABOLIC PANEL (05/08/2017 4:35 AM) Component Value Ref Range Sodium 140 137 - 147 MMOL/L Potassium 4.1 3.5 - 5.1 MMOL/L Chloride 104 98 - 110 MMOL/L Glucose 141 (H) 70 - 100 MG/DL Blood Urea Nitrogen 28 (H) 7 - 25 MG/DL Creatinine 0.68 0.4 - 1.00 MG/DL Calcium 8.0 (L) 8.5 - 10.6 MG/DL Total Protein 5.2 (L) 6.0 - 8.0 G/DL Total Bilirubin 1.4 (H) 0.3 - 1.2 MG/DL Albumin 2.4 (L) 3.5 - 5.0 G/DL Alk Phosphatase 33 25 - 110 U/L AST (SGOT) 9 7 - 40 U/L CO2 32 (H) 21 - 30 MMOL/L ALT (SGPT) 7 7 - 56 U/L Anion Gap 4 3 - 12 eGFR Non >60 >60 [...] Pharmacist for questions. Specimen Performing Laboratory Blood [facility] [address] [place] [address] * POC GLUCOSE (05/07/2017 8:56 PM) Component Value Ref Range Glucose, POC 167 (H) 70 - 100 MG/DL Specimen Performing Laboratory [facility] [address] [place] [address] * POC GLUCOSE (05/07/2017 4:49 PM) Component Value Ref Range Glucose, POC 129 (H) 70 - 100 MG/DL Specimen Performing Laboratory [facility] [address] [place] [address] * POC GLUCOSE (05/07/2017 12:47 PM) Component Value Ref Range Glucose, POC 184 (H) 70 - 100 MG/DL Specimen Performing Laboratory [facility] [address] [place] [address] * POC GLUCOSE (05/07/2017 9:04 AM) Component Value Ref Range Glucose, POC 120 (H) 70 - 100 MG/DL Specimen Performing Laboratory [facility] [address] [place] [address] * CBC AND DIFF (05/07/2017 4:10 AM) Component Value Ref Range White Blood Cells 0.5 (LL)Comment: Value noted, value unchanged 4.5 - 11.0 K/UL RBC 2.35 (L) 4.0 - 5.0 M/UL Hemoglobin 7.1 (L) 12.0 - 15.0 GM/DL Hematocrit 20.4 (L) 36 - 45 % MCV 87.0 80 - 100 FL MCH 30.2 26 - 34 PG MCHC 34.8 32.0 - 36.0 G/DL RDW 18.2 (H) 11 - 15 % Platelet Count 11 (LL)Comment: Value noted, Value unchanged 150 - 400 K/UL MPV 8.6 7 - 11 FL Neutrophils 4 (L) 41 - 77 % Lymphocytes 94 (H) 24 - 44 % Monocytes 2 (L) 4 - 12 % Eosinophils 0 0 - 5 % Basophils 0 0 - 2 % Absolute Neutrophil Count 0.00 (L) 1.8 - 7.0 K/UL Absolute Lymph Count 0.50 (L) 1.0 - 4.8 K/UL Absolute Monocyte Count 0.00 0 - 0.80 K/UL Absolute Eosinophil Count 0.00 0 - 0.45 K/UL Absolute Basophil Count 0.00 0 - 0.20 K/UL Specimen Performing Laboratory Blood MAIN LAB [address] [place] [address] * MAGNESIUM (05/07/2017 4:10 AM) Component Value Ref Range Magnesium 2.0 1.6 - 2.6 mg/dL Specimen Performing Laboratory Blood MAIN LAB [address] [place] [address] * COMPREHENSIVE METABOLIC PANEL (05/07/2017 4:10 AM) Component Value Ref Range Sodium 140 137 - 147 MMOL/L Potassium 4.4 3.5 - 5.1 MMOL/L Chloride 105 98 - 110 MMOL/L Glucose 99 70 - 100 MG/DL Blood Urea Nitrogen 26 (H) 7 - 25 MG/DL Creatinine 0.70 0.4 - 1.00 MG/DL Calcium 8.1 (L) 8.5 - 10.6 MG/DL Total Protein 5.1 (L) 6.0 - 8.0 G/DL Total Bilirubin 1.2 0.3 - 1.2 MG/DL Albumin 2.4 (L) 3.5 - 5.0 G/DL Alk Phosphatase 27 25 - 110 U/L AST (SGOT) 9 7 - 40 U/L CO2 32 (H) 21 - 30 MMOL/L ALT (SGPT) 6 (L) 7 - 56 U/L Anion Gap 3 [...] questions. Specimen Performing Laboratory Blood MAIN LAB [address] [place] [address] * POC GLUCOSE (05/06/2017 9:04 PM) Component Value Ref Range Glucose, POC 187 (H) 70 - 100 MG/DL Specimen Performing Laboratory MAIN LAB [address] [place] [address] * BASIC METABOLIC PANEL (05/06/2017 8:35 PM) Component Value Ref Range Sodium 137 137 - 147 MMOL/L Potassium 3.9 3.5 - 5.1 MMOL/L Chloride 102 98 - 110 MMOL/L CO2 31 (H) 21 - 30 MMOL/L Anion Gap 4 3 - 12 Glucose 202 (H) 70 - 100 MG/DL Blood Urea Nitrogen 27 (H) 7 - 25 MG/DL Creatinine 0.81 0.4 - 1.00 MG/DL Calcium 7.7 (L) 8.5 - 10.6 MG/DL eGFR Non [...] questions. Specimen Performing Laboratory Blood MAIN LAB [address] [place] [address] * POC GLUCOSE (05/06/2017 6:11 PM) Component Value Ref Range Glucose, POC 167 (H) 70 - 100 MG/DL Specimen Performing Laboratory MAIN LAB [address] [place] [address] * POC GLUCOSE (05/06/2017 12:05 PM) Component Value Ref Range Glucose, POC 187 (H) 70 - 100 MG/DL Specimen Performing Laboratory MAIN LAB [address] [place] [address] * TRANSFUSE RBC'S NON-BLEEDING PT (05/06/2017 11:25 AM) Specimen Performing Laboratory Blood * TRANSFUSE RBC'S NON-BLEEDING PT (05/06/2017 11:25 AM) Specimen Performing Laboratory Blood * POC GLUCOSE (05/06/2017 7:55 AM) Component Value Ref Range Glucose, POC 144 (H) 70 - 100 MG/DL Specimen Performing Laboratory MAIN LAB [address] [place] [address] * CBC AND DIFF (05/06/2017 4:45 AM) Component Value Ref Range White Blood Cells 0.4 (LL) 4.5 - 11.0 K/UL Comment: Value noted, value unchanged Too few WBC's for Differential RBC 2.31 (L) 4.0 - 5.0 M/UL Hemoglobin 7.0 (L) 12.0 - 15.0 GM/DL Hematocrit 20.4 (L) 36 - 45 % MCV 88.7 80 - 100 FL MCH 30.5 26 - 34 PG MCHC 34.3 32.0 - 36.0 G/DL RDW 18.3 (H) 11 - 15 % Platelet Count 13 (LL)Comment: Value noted, Value unchanged 150 - 400 K/UL MPV 9.0 7 - 11 FL Specimen Performing Laboratory Blood MAIN LAB [address] [place] [address] * MAGNESIUM (05/06/2017 4:45 AM) Component Value Ref Range Magnesium 1.9 1.6 - 2.6 mg/dL Specimen Performing Laboratory Blood MAIN LAB [address] [place], [place] [id number] * COMPREHENSIVE METABOLIC PANEL (05/06/2017 4:45 AM) Component Value Ref Range Sodium 140 137 - 147 MMOL/L Potassium 4.7 3.5 - 5.1 MMOL/L Chloride 107 98 - 110 MMOL/L Glucose 133 (H) 70 - 100 MG/DL Blood Urea Nitrogen 24 7 - 25 MG/DL Creatinine 0.67 0.4 - 1.00 MG/DL Calcium 8.0 (L) 8.5 - 10.6 MG/DL Total Protein 5.1 (L) 6.0 - 8.0 G/DL Total Bilirubin 1.0 0.3 - 1.2 MG/DL Albumin 2.3 (L) 3.5 - 5.0 G/DL Alk Phosphatase 25 25 - 110 U/L AST (SGOT) 7 7 - 40 U/L CO2 31 (H) 21 - 30 MMOL/L ALT (SGPT) 6 (L) 7 - 56 U/L Anion Gap 2 (L) 3 - 12 eGFR Non >60 >60 [...] Specimen Performing Laboratory Blood MAIN LAB [address] [place] [address] * C DIFFICILE BY PCR (05/05/2017 10:45 PM) Component Value Ref Range Battery Name C DIFFICILE PCR Specimen Description FECES Special Requests NONE C. Difficile Toxin B PCR NEGATIVE-wait 7 days to repeat test Report Status FINAL 05/06/2017 Specimen Performing Laboratory Feces MAIN LAB [address] [place] [address] * BASIC METABOLIC PANEL (05/05/2017 10:11 PM) Component Value Ref Range Sodium 140 137 - 147 MMOL/L Potassium 4.0 3.5 - 5.1 MMOL/L Chloride 107 98 - 110 MMOL/L CO2 30 21 - 30 MMOL/L Anion Gap 3 3 - 12 Glucose 194 (H) 70 - 100 MG/DL Blood Urea Nitrogen 26 (H) 7 - 25 MG/DL Creatinine 0.74 0.4 - 1.00 MG/DL Calcium 7.8 (L) 8.5 - 10.6 MG/DL eGFR Non [...] Specimen Performing Laboratory Blood MAIN LAB [address] [place] [id number] * POC GLUCOSE (05/05/2017 8:42 PM) Component Value Ref Range Glucose, POC 159 (H) 70 - 100 MG/DL Specimen Performing Laboratory [facility] [address] [place] [address] * POC GLUCOSE (05/05/2017 4:52 PM) Component Value Ref Range Glucose, POC 153 (H) 70 - 100 MG/DL Specimen Performing Laboratory [facility] [address] [place] [address] * TRANSFUSE APHERESIS PLATELETS (05/05/2017 4:07 PM) * TRANSFUSE APHERESIS PLATELETS (05/05/2017 4:07 PM) * POC GLUCOSE (05/05/2017 11:41 AM) Component Value Ref Range Glucose, POC 132 (H) 70 - 100 MG/DL Specimen Performing Laboratory [facility] [address] [place] [address] * TRANSFUSE RBC'S NON-BLEEDING PT (05/05/2017 9:58 AM) Specimen Performing Laboratory Blood * TRANSFUSE RBC'S NON-BLEEDING PT (05/05/2017 9:58 AM) Specimen Performing Laboratory Blood * POC GLUCOSE (05/05/2017 8:36 AM) Component Value Ref Range Glucose, POC 156 (H) 70 - 100 MG/DL Specimen Performing Laboratory [facility] [address] [place] [address] * PREPARE APHERESIS PLATELETS (05/05/2017 5:32 AM) Component Value Ref Range Units Ordered 1 Unit Number [id number] Blood Component Type APHERESIS PLT,LEUKO REDUCED,IRRADIATED,2ND CONT. Unit Division 0 Status OF Unit TRANSFUSED Transfusion Status OK TO TRANSFUSE Specimen Performing Laboratory Other (Specify) [facility] [address] [place] [address] * CBC AND DIFF (05/05/2017 4:35 AM) Component Value Ref Range White Blood Cells 0.4 (LL) 4.5 - 11.0 K/UL Comment: Value noted, value unchanged Too few WBC's for Differential RBC 2.18 (L) 4.0 - 5.0 M/UL Hemoglobin 6.7 (L) 12.0 - 15.0 GM/DL Hematocrit 19.9 (L) 36 - 45 % MCV 91.5 80 - 100 FL MCH 30.8 26 - 34 PG MCHC 33.6 32.0 - 36.0 G/DL RDW 19.1 (H) 11 - 15 % Platelet Count 9 (LL)Comment: Value noted, Value unchanged 150 - 400 K/UL MPV 9.6 7 - 11 FL Specimen Performing Laboratory Blood MAIN LAB [address] [place] [address] * MAGNESIUM (05/05/2017 4:35 AM) Component Value Ref Range Magnesium 1.9 1.6 - 2.6 mg/dL Specimen Performing Laboratory Blood MAIN LAB [address] [place] [address] * COMPREHENSIVE METABOLIC PANEL (05/05/2017 4:35 AM) Component Value Ref Range Sodium 141 137 - 147 MMOL/L Potassium 4.3 3.5 - 5.1 MMOL/L Chloride 107 98 - 110 MMOL/L Glucose 153 (H) 70 - 100 MG/DL Blood Urea Nitrogen 29 (H) 7 - 25 MG/DL Creatinine 0.76 0.4 - 1.00 MG/DL Calcium 8.0 (L) 8.5 - 10.6 MG/DL Total Protein 5.0 (L) 6.0 - 8.0 G/DL Total Bilirubin 0.8 0.3 - 1.2 MG/DL Albumin 2.3 (L) 3.5 - 5.0 G/DL Alk Phosphatase 24 (L) 25 - 110 U/L AST (SGOT) 8 7 - 40 U/L CO2 32 (H) 21 - 30 MMOL/L ALT (SGPT) 11 7 - 56 U/L Anion Gap 2 (L) 3 - 12 eGFR Non >60 >60 [...] Specimen Performing Laboratory Blood MAIN LAB [address] [place] [address] * POC GLUCOSE (05/04/2017 8:56 PM) Component Value Ref Range Glucose, POC 175 (H) 70 - 100 MG/DL Specimen Performing Laboratory MAIN LAB [address] [place] [address] * BASIC METABOLIC PANEL (05/04/2017 7:19 PM) Component Value Ref Range Sodium 142 137 - 147 MMOL/L Potassium 3.7 3.5 - 5.1 MMOL/L Chloride 106 98 - 110 MMOL/L CO2 31 (H) 21 - 30 MMOL/L Anion Gap 5 3 - 12 Glucose 179 (H) 70 - 100 MG/DL Blood Urea Nitrogen 33 (H) 7 - 25 MG/DL Creatinine 0.85 0.4 - 1.00 MG/DL Calcium 7.7 (L) 8.5 - 10.6 MG/DL eGFR Non [...] questions. Specimen Performing Laboratory Blood MAIN LAB [address] [place], [place] [id number] * POC GLUCOSE (05/04/2017 4:58 PM) Component Value Ref Range Glucose, POC 180 (H) 70 - 100 MG/DL Specimen Performing Laboratory MAIN LAB [address] [place] [address] * VRE SCREEN (05/04/2017 4:30 PM) Component Value Ref Range Battery Name VRE SCREEN Specimen Description PERIRECTAL SWAB Special Requests NONE Culture NO VRE ISOLATED Report Status FINAL 05/05/2017 Specimen Performing Laboratory Perirectal Swab MAIN LAB [address] [place] [address] * POC GLUCOSE (05/04/2017 12:15 PM) Component Value Ref Range Glucose, POC 160 (H) 70 - 100 MG/DL Specimen Performing Laboratory MAIN LAB [address] [place] [address] * POC GLUCOSE (05/04/2017 9:48 AM) Component Value Ref Range Glucose, POC 153 (H) 70 - 100 MG/DL Specimen Performing Laboratory MAIN LAB [address] [place] [address] * TYPE & CROSSMATCH (05/04/2017 3:50 AM) Component Value Ref Range Units Ordered 3 Crossmatch Expires 05/07/2017 Record Check FOUND ABO/RH(D) A POS Antibody Screen NEG Electronic Crossmatch YES Unit Number [id number] Blood Component Type RBC,ADSOL,LEUKO REDUCED,IRRADIATED Unit Division 0 Status OF Unit TRANSFUSED Transfusion Status OK TO TRANSFUSE Crossmatch Result COMPATIBLE,ELECTRONIC Unit Number [id number] Blood Component Type RBC,ADSOL,LEUKO REDUCED,IRRADIATED Unit Division 0 Status OF Unit TRANSFUSED Transfusion Status OK TO TRANSFUSE Crossmatch Result COMPATIBLE,ELECTRONIC Unit Number [id number] Blood Component Type RBC,ADSOL,LEUKO REDUCED,IRRADIATED Unit Division 0 Status OF Unit TRANSFUSED Transfusion Status OK TO TRANSFUSE Crossmatch Result COMPATIBLE,ELECTRONIC Specimen Performing Laboratory Blood MAIN LAB [address] [place] [address] * CBC AND DIFF (05/04/2017 3:11 AM) Component Value Ref Range White Blood Cells 0.6 (LL) 4.5 - 11.0 K/UL Comment: Critical Result WBC:Called to GILDA Coates at: 03:49:43 by: MANPREET Read back by: GILDA Coates RBC 2.08 (L) 4.0 - 5.0 M/UL Hemoglobin 6.5 (L) 12.0 - 15.0 GM/DL Hematocrit 19.2 (L) 36 - 45 % MCV 92.5 80 - 100 FL MCH 31.5 26 - 34 PG MCHC 34.1 32.0 - 36.0 G/DL RDW 19.2 (H) 11 - 15 % Platelet Count 13 (LL) 150 - 400 K/UL Comment: Value noted, Value unchanged Critical Result PLT:Called to GILDA Coates at: 03:49:43 by: MANPREET Read back by: GILDA Coates MPV 9.0 7 - 11 FL Segmented Neutrophils 42 41 - 77 % Bands 1 0 - 10 % Lymphocytes 50 (H) 24 - 44 % Monocytes 5 4 - 12 % Blast 2 % ANISO PRESENT Ovalocyte PRESENT Platelet Estimate MKD DEC Absolute Neutrophil Count 0.26 (L) 1.8 - 7.0 K/UL Manual Specimen Performing Laboratory Blood MAIN LAB [address] [place] [address] * MAGNESIUM (05/04/2017 3:11 AM) Component Value Ref Range Magnesium 2.0 1.6 - 2.6 mg/dL Specimen Performing Laboratory Blood MAIN LAB [address] [place] [address] * COMPREHENSIVE METABOLIC PANEL (05/04/2017 3:11 AM) Component Value Ref Range Sodium 143 137 - 147 MMOL/L Potassium 4.0 3.5 - 5.1 MMOL/L Chloride 112 (H) 98 - 110 MMOL/L Glucose 131 (H) 70 - 100 MG/DL Blood Urea Nitrogen 38 (H) 7 - 25 MG/DL Creatinine 0.72 0.4 - 1.00 MG/DL Calcium 7.8 (L) 8.5 - 10.6 MG/DL Total Protein 4.7 (L) 6.0 - 8.0 G/DL Total Bilirubin 0.7 0.3 - 1.2 MG/DL Albumin 2.3 (L) 3.5 - 5.0 G/DL Alk Phosphatase 24 (L) 25 - 110 U/L AST (SGOT) 10 7 - 40 U/L CO2 27 21 - 30 MMOL/L ALT (SGPT) 12 7 - 56 U/L Anion Gap 4 3 - 12 eGFR Non >60 >60 [...] Specimen Performing Laboratory Blood MAIN LAB [address] [place] [address] * POC GLUCOSE (05/04/2017 3:07 AM) Component Value Ref Range Glucose, POC 131 (H) 70 - 100 MG/DL Specimen Performing Laboratory MAIN LAB [address] [place] [address] * POC GLUCOSE (05/03/2017 9:00 PM) Component Value Ref Range Glucose, POC 161 (H) 70 - 100 MG/DL Specimen Performing Laboratory MAIN [facility] [address] [place] [address] * BASIC METABOLIC PANEL (05/03/2017 8:13 PM) Component Value Ref Range Sodium 142 137 - 147 MMOL/L Potassium 3.9 3.5 - 5.1 MMOL/L Chloride 110 98 - 110 MMOL/L CO2 26 21 - 30 MMOL/L Anion Gap 6 3 - 12 Glucose 188 (H) 70 - 100 MG/DL Blood Urea Nitrogen 44 (H) 7 - 25 MG/DL Creatinine 0.87 0.4 - 1.00 MG/DL Calcium 7.6 (L) 8.5 - 10.6 MG/DL eGFR Non [...] questions. Specimen Performing Laboratory Blood MAIN LAB [address] [place] [address] * POC GLUCOSE (05/03/2017 6:40 PM) Component Value Ref Range Glucose, POC 225 (H) 70 - 100 MG/DL Specimen Performing Laboratory MAIN LAB [address] [place] [address] * CYTOGENETICS SCAN (05/03/2017 3:16 PM) Narrative Ordered by an unspecified provider. * BNP (B-TYPE NATRIURETIC PEPTI) (05/03/2017 12:45 PM) Component Value Ref Range B Type Natriuretic 139.0 (H) 0 - 100 PG/ML Peptide Specimen Performing Laboratory Blood MAIN LAB [address] [place], [place] [id number] * POC GLUCOSE (05/03/2017 9:39 AM) Component Value Ref Range Glucose, POC 183 (H) 70 - 100 MG/DL Specimen Performing Laboratory MAIN LAB [address] [place] [address] * CBC AND DIFF (05/03/2017 3:20 AM) Component Value Ref Range White Blood Cells 1.0 (L) 4.5 - 11.0 K/UL RBC 2.31 (L) 4.0 - 5.0 M/UL Hemoglobin 7.3 (L) 12.0 - 15.0 GM/DL Hematocrit 21.3 (L) 36 - 45 % MCV 92.4 80 - 100 FL MCH 31.7 26 - 34 PG MCHC 34.3 32.0 - 36.0 G/DL RDW 20.2 (H) 11 - 15 % Platelet Count 22 (LL) 150 - 400 K/UL Comment: Critical Result PLT:Called to REBEKA Canchola at: 03:59:53 by: DAJUAN Read back by: REBEKA Canchola MPV 9.1 7 - 11 FL Neutrophils 56 41 - 77 % Lymphocytes 41 24 - 44 % Monocytes 3 (L) 4 - 12 % Eosinophils 0 0 - 5 % Basophils 0 0 - 2 % Absolute Neutrophil Count 0.50 (L) 1.8 - 7.0 K/UL Absolute Lymph Count 0.40 (L) 1.0 - 4.8 K/UL Absolute Monocyte Count 0.00 0 - 0.80 K/UL Absolute Eosinophil Count 0.00 0 - 0.45 K/UL Absolute Basophil Count 0.00 0 - 0.20 K/UL Specimen Performing Laboratory Blood MAIN LAB [address] [place] [address] * MAGNESIUM (05/03/2017 3:20 AM) Component Value Ref Range Magnesium 1.9 1.6 - 2.6 mg/dL Specimen Performing Laboratory Blood MAIN LAB [address] [place] [address] * COMPREHENSIVE METABOLIC PANEL (05/03/2017 3:20 AM) Component Value Ref Range Sodium 141 137 - 147 MMOL/L Potassium 3.9 3.5 - 5.1 MMOL/L Chloride 108 98 - 110 MMOL/L Glucose 176 (H) 70 - 100 MG/DL Blood Urea Nitrogen 47 (H) 7 - 25 MG/DL Creatinine 1.02 (H) 0.4 - 1.00 MG/DL Calcium 7.6 (L) 8.5 - 10.6 MG/DL Total Protein 5.3 (L) 6.0 - 8.0 G/DL Total Bilirubin 0.9 0.3 - 1.2 MG/DL Albumin 2.4 (L) 3.5 - 5.0 G/DL Alk Phosphatase 26 25 - 110 U/L AST (SGOT) 16 7 - 40 U/L CO2 29 21 - 30 MMOL/L ALT (SGPT) 16 7 - 56 U/L Anion Gap 4 3 - 12 eGFR Non 56 (L) >60 mL/min Comment: The eGFR is [...] Pharmacist for questions. Specimen Performing Laboratory Blood [facility] [address] [place] [address] * POC GLUCOSE (05/03/2017 3:16 AM) Component Value Ref Range Glucose, POC 182 (H) 70 - 100 MG/DL Specimen Performing Laboratory [facility] [address] [place] [address] * POC GLUCOSE (05/02/2017 9:13 PM) Component Value Ref Range Glucose, POC 211 (H) 70 - 100 MG/DL Specimen Performing Laboratory [facility] [address] [place] [address] * POC GLUCOSE (05/02/2017 3:57 PM) Component Value Ref Range Glucose, POC 184 (H) 70 - 100 MG/DL Specimen Performing Laboratory [facility] [address] [place] [address] * POC GLUCOSE (05/02/2017 2:29 PM) Component Value Ref Range Glucose, POC 191 (H) 70 - 100 MG/DL Specimen Performing Laboratory [facility] [address] [place] [address] * POC GLUCOSE (05/02/2017 11:12 AM) Component Value Ref Range Glucose, POC 204 (H) 70 - 100 MG/DL Specimen Performing Laboratory [facility] [address] [place] [address] * POC GLUCOSE (05/02/2017 7:55 AM) Component Value Ref Range Glucose, POC 201 (H) 70 - 100 MG/DL Specimen Performing Laboratory [facility] [address] [place] [address] * CBC AND DIFF (05/02/2017 4:25 AM) Component Value Ref Range White Blood Cells 1.1 (L) 4.5 - 11.0 K/UL RBC 2.68 (L) 4.0 - 5.0 M/UL Hemoglobin 8.4 (L) 12.0 - 15.0 GM/DL Hematocrit 24.7 (L) 36 - 45 % MCV 92.3 80 - 100 FL MCH 31.3 26 - 34 PG MCHC 33.9 32.0 - 36.0 G/DL RDW 19.2 (H) 11 - 15 % Platelet Count 25 (L) 150 - 400 K/UL MPV 9.8 7 - 11 FL Segmented Neutrophils 66 41 - 77 % Lymphocytes 16 (L) 24 - 44 % Monocytes 15 (H) 4 - 12 % Blast 3 % Ovalocyte PRESENT Platelet Estimate MKD DEC Absolute Neutrophil Count 0.73 (L) 1.8 - 7.0 K/UL Manual Specimen Performing Laboratory Blood MAIN LAB [address] [place] [address] * URIC ACID (05/02/2017 4:25 AM) Component Value Ref Range Uric Acid 3.9 2.0 - 7.0 MG/DL Specimen Performing Laboratory Blood MAIN LAB [address] [place] [address] * PHOSPHORUS (05/02/2017 4:25 AM) Component Value Ref Range Phosphorus 5.7 (H) 2.0 - 4.0 MG/DL Specimen Performing Laboratory Blood MAIN LAB [address] [place], [place] [id number] * MAGNESIUM (05/02/2017 4:25 AM) Component Value Ref Range Magnesium 2.1 1.6 - 2.6 mg/dL Specimen Performing Laboratory Blood MAIN LAB [address] [place] [address] * COMPREHENSIVE METABOLIC PANEL (05/02/2017 4:25 AM) Component Value Ref Range Sodium 140 137 - 147 MMOL/L Potassium 4.4 3.5 - 5.1 MMOL/L Chloride 109 98 - 110 MMOL/L Glucose 197 (H) 70 - 100 MG/DL Blood Urea Nitrogen 48 (H) 7 - 25 MG/DL Creatinine 0.96 0.4 - 1.00 MG/DL Calcium 7.8 (L) 8.5 - 10.6 MG/DL Total Protein 5.6 (L) 6.0 - 8.0 G/DL Total Bilirubin 0.8 0.3 - 1.2 MG/DL Albumin 2.5 (L) 3.5 - 5.0 G/DL Alk Phosphatase 28 25 - 110 U/L AST (SGOT) 15 7 - 40 U/L CO2 26 21 - 30 MMOL/L ALT (SGPT) 12 7 - 56 U/L Anion Gap 5 3 - 12 eGFR Non 60 (L) >60 mL/min Comment: The eGFR is [...] Specimen Performing Laboratory Blood MAIN LAB [address] [place] [address] * POC GLUCOSE (05/02/2017 4:21 AM) Component Value Ref Range Glucose, POC 189 (H) 70 - 100 MG/DL Specimen Performing Laboratory MAIN LAB [address] [place] [address] * TRANSFUSE RBC'S NON-BLEEDING PT (05/02/2017 2:57 AM) Specimen Performing Laboratory Blood * TRANSFUSE RBC'S NON-BLEEDING PT (05/02/2017 2:57 AM) Specimen Performing Laboratory Blood * POC GLUCOSE (05/01/2017 9:10 PM) Component Value Ref Range Glucose, POC 227 (H) 70 - 100 MG/DL Specimen Performing Laboratory MAIN LAB [address] [place] [address] * CBC AND DIFF (05/01/2017 8:15 PM) Component Value Ref Range White Blood Cells 1.0 (L) 4.5 - 11.0 K/UL RBC 2.21 (L) 4.0 - 5.0 M/UL Hemoglobin 6.9 (L) 12.0 - 15.0 GM/DL Hematocrit 20.4 (L) 36 - 45 % MCV 92.1 80 - 100 FL MCH 31.3 26 - 34 PG MCHC 34.0 32.0 - 36.0 G/DL RDW 21.8 (H) 11 - 15 % Platelet Count 22 (LL)Comment: Value noted, Value unchanged 150 - 400 K/UL MPV 9.6 7 - 11 FL Segmented Neutrophils 50 41 - 77 % Bands 3 0 - 10 % Lymphocytes 17 (L) 24 - 44 % Monocytes 20 (H) 4 - 12 % Blast 10 % ANISO PRESENT POIK PRESENT Ovalocyte PRESENT Platelet Estimate MKD DEC Absolute Neutrophil Count 0.53 (L) 1.8 - 7.0 K/UL Manual Specimen Performing Laboratory Blood MAIN LAB [address] [place] [address] * BASIC METABOLIC PANEL (05/01/2017 8:15 PM) Component Value Ref Range Sodium 138 137 - 147 MMOL/L Potassium 3.8 3.5 - 5.1 MMOL/L Chloride 107 98 - 110 MMOL/L CO2 24 21 - 30 MMOL/L Anion Gap 7 3 - 12 Glucose 224 (H) 70 - 100 MG/DL Blood Urea Nitrogen 52 (H) 7 - 25 MG/DL Creatinine 1.08 (H) 0.4 - 1.00 MG/DL Calcium 7.5 (L) 8.5 - 10.6 MG/DL eGFR Non 52 (L) >60 mL/min Comment: The eGFR is [...] questions. Specimen Performing Laboratory Blood MAIN LAB [address] [place] [address] * URIC ACID (05/01/2017 8:15 PM) Component Value Ref Range Uric Acid 4.0 2.0 - 7.0 MG/DL Specimen Performing Laboratory Blood [facility] [address] [place] [address] * PHOSPHORUS (05/01/2017 8:15 PM) Component Value Ref Range Phosphorus 5.2 (H) 2.0 - 4.0 MG/DL Specimen Performing Laboratory Blood [facility] [address] [place], [place] [id number] * POC GLUCOSE (05/01/2017 4:49 PM) Component Value Ref Range Glucose, POC 243 (H) 70 - 100 MG/DL Specimen Performing Laboratory [facility] [address] [place], [place] [id number] * POC GLUCOSE (05/01/2017 12:38 PM) Component Value Ref Range Glucose, POC 271 (H) 70 - 100 MG/DL Specimen Performing Laboratory [facility] [address] [place], [place] [id number] * MANUAL DIFF (05/01/2017 12:03 PM) Component Value Ref Range Segmented Neutrophils 45 41 - 77 % Bands 2 0 - 10 % Lymphocytes 18 (L) 24 - 44 % Monocytes 20 (H) 4 - 12 % Metamyelocyte 2 % Myelocyte 1 % Blast 12 % Platelet Estimate MKD DEC RBC Morph ANISO POIK OVALO Specimen Performing Laboratory [facility] [address] [place], [place] [id number] * CBC AND DIFF (05/01/2017 12:03 PM) Component Value Ref Range White Blood Cells 1.7 (L) 4.5 - 11.0 K/UL RBC 2.36 (L) 4.0 - 5.0 M/UL Hemoglobin 7.3 (L) 12.0 - 15.0 GM/DL Hematocrit 22.2 (L) 36 - 45 % MCV 94.0 80 - 100 FL MCH 31.0 26 - 34 PG MCHC 33.0 32.0 - 36.0 G/DL RDW 21.8 (H) 11 - 15 % Platelet Count 23 (LL) 150 - 400 K/UL Comment: Critical Result PLT:Called to BROOK Braden at: 13:17:45 by: ALIYA Read back by: BROOK Braden MPV 9.0 7 - 11 FL Neutrophils 57 41 - 77 % Lymphocytes 13 (L) 24 - 44 % Monocytes 30 (H) 4 - 12 % Eosinophils 0 0 - 5 % Basophils 0 0 - 2 % Absolute Neutrophil Count 0.90 (L) 1.8 - 7.0 K/UL Absolute Lymph Count 0.20 (L) 1.0 - 4.8 K/UL Absolute Monocyte Count 0.50 0 - 0.80 K/UL Absolute Eosinophil Count 0.00 0 - 0.45 K/UL Absolute Basophil Count 0.00 0 - 0.20 K/UL Specimen Performing Laboratory Blood MAIN LAB [address] [place] [address] * BASIC METABOLIC PANEL (05/01/2017 12:03 PM) Component Value Ref Range Sodium 138 137 - 147 MMOL/L Potassium 4.9 3.5 - 5.1 MMOL/L Chloride 109 98 - 110 MMOL/L CO2 21 21 - 30 MMOL/L Anion Gap 8 3 - 12 Glucose 299 (H) 70 - 100 MG/DL Blood Urea Nitrogen 47 (H) 7 - 25 MG/DL Creatinine 1.03 (H) 0.4 - 1.00 MG/DL Calcium 7.7 (L) 8.5 - 10.6 MG/DL eGFR Non 55 (L) >60 mL/min Comment: The eGFR is [...] questions. Specimen Performing Laboratory Blood MAIN LAB [address] [place] [address] * PROTIME INR (PT) (05/01/2017 12:03 PM) Component Value Ref Range INR 1.1 0.8 - 1.2 Specimen Performing Laboratory Blood [facility] [address] [place] [address] * PTT (APTT) (05/01/2017 12:03 PM) Component Value Ref Range APTT 22.6Comment: NOTE NEW REFERENCE RANGES 21.0 - 39.0 SEC Specimen Performing Laboratory Blood [facility] [address] [place] [address] * URIC ACID (05/01/2017 12:03 PM) Component Value Ref Range Uric Acid 3.7 2.0 - 7.0 MG/DL Specimen Performing Laboratory Blood [facility] [address] [place] [address] * FIBRINOGEN (05/01/2017 12:03 PM) Component Value Ref Range Fibrinogen 214 200 - 400 MG/DL Specimen Performing Laboratory Blood [facility] [address] [place], [place] [id number] * PHOSPHORUS (05/01/2017 12:03 PM) Component Value Ref Range Phosphorus 6.3 (H) 2.0 - 4.0 MG/DL Specimen Performing Laboratory Blood [facility] [address] [place] [address] * POC GLUCOSE (05/01/2017 10:30 AM) Component Value Ref Range Glucose, POC 274 (H) 70 - 100 MG/DL Specimen Performing Laboratory [facility] [address] [place] [address] * CBC AND DIFF (05/01/2017 5:15 AM) Component Value Ref Range White Blood Cells 2.3 (L) 4.5 - 11.0 K/UL RBC 2.77 (L) 4.0 - 5.0 M/UL Hemoglobin 8.8 (L) 12.0 - 15.0 GM/DL Hematocrit 25.7 (L) 36 - 45 % MCV 92.7 80 - 100 FL MCH 31.8 26 - 34 PG MCHC 34.2 32.0 - 36.0 G/DL RDW 21.3 (H) 11 - 15 % Platelet Count 26 (L) 150 - 400 K/UL MPV 9.3 7 - 11 FL Nucleated RBCs 2 K/UL Segmented Neutrophils 60 41 - 77 % Bands 1 0 - 10 % Lymphocytes 8 (L) 24 - 44 % Monocytes 13 (H) 4 - 12 % Metamyelocyte 2 % Blast 16 % ANISO PRESENT POIK PRESENT POLY PRESENT Ovalocyte PRESENT Platelet Estimate MKD DEC Absolute Neutrophil Count 1.40 (L) 1.8 - 7.0 K/UL Manual Specimen Performing Laboratory Blood MAIN LAB [address] [place] [address] * PROTIME INR (PT) (05/01/2017 5:15 AM) Component Value Ref Range INR 1.1 0.8 - 1.2 Specimen Performing Laboratory Blood MAIN LAB [address] [place] [address] * PTT (APTT) (05/01/2017 5:15 AM) Component Value Ref Range APTT 19.7 (L)Comment: NOTE NEW REFERENCE RANGES 21.0 - 39.0 SEC Specimen Performing Laboratory Blood MAIN LAB [address] [place] [address] * URIC ACID (05/01/2017 5:15 AM) Component Value Ref Range Uric Acid 3.7 2.0 - 7.0 MG/DL Specimen Performing Laboratory Blood MAIN LAB [address] [place], [place] [id number] * FIBRINOGEN (05/01/2017 5:15 AM) Component Value Ref Range Fibrinogen 245 200 - 400 MG/DL Specimen Performing Laboratory Blood [facility] [address] [place], [place] [id number] * PHOSPHORUS (05/01/2017 5:15 AM) Component Value Ref Range Phosphorus 6.4 (H) 2.0 - 4.0 MG/DL Specimen Performing Laboratory Blood MAIN LAB [address] [place], [place] [id number] * MAGNESIUM (05/01/2017 5:15 AM) Component Value Ref Range Magnesium 2.0 1.6 - 2.6 mg/dL Specimen Performing Laboratory Blood MAIN LAB [address] [place] [address] * COMPREHENSIVE METABOLIC PANEL (05/01/2017 5:15 AM) Component Value Ref Range Sodium 138 137 - 147 MMOL/L Potassium 4.6 3.5 - 5.1 MMOL/L Chloride 108 98 - 110 MMOL/L Glucose 234 (H) 70 - 100 MG/DL Blood Urea Nitrogen 46 (H) 7 - 25 MG/DL Creatinine 0.98 0.4 - 1.00 MG/DL Calcium 7.6 (L) 8.5 - 10.6 MG/DL Total Protein 6.1 6.0 - 8.0 G/DL Total Bilirubin 0.8 0.3 - 1.2 MG/DL Albumin 2.7 (L) 3.5 - 5.0 G/DL Alk Phosphatase 31 25 - 110 U/L AST (SGOT) 11 7 - 40 U/L CO2 22 21 - 30 MMOL/L ALT (SGPT) 8 7 - 56 U/L Anion Gap 8 3 - 12 eGFR Non 58 (L) [...] questions. Specimen Performing Laboratory Blood MAIN LAB [address] [place] [address] * LDH-LACTATE DEHYDROGENASE (05/01/2017 5:15 AM) Component Value Ref Range Lactate Dehydrogenase 416 (H) 100 - 210 U/L Specimen Performing Laboratory Blood MAIN LAB [address] [place] [address] * TRANSFUSE RBC'S NON-BLEEDING PT (05/01/2017 4:23 AM) Specimen Performing Laboratory Blood * TRANSFUSE RBC'S NON-BLEEDING PT (05/01/2017 4:23 AM) Specimen Performing Laboratory Blood * POC GLUCOSE (05/01/2017 4:11 AM) Component Value Ref Range Glucose, POC 238 (H) 70 - 100 MG/DL Specimen Performing Laboratory MAIN LAB [address] [place] [address] * TRANSFUSE APHERESIS PLATELETS (05/01/2017 12:09 AM) * TRANSFUSE APHERESIS PLATELETS (05/01/2017 12:09 AM) * PREPARE APHERESIS PLATELETS (04/30/2017 10:07 PM) Component Value Ref Range Units Ordered 1 Unit Number [id number] Blood Component Type APHERESIS PLT,LEUKO REDUCED,IRRADIATED,1ST CONT. Unit Division 0 Status OF Unit TRANSFUSED Transfusion Status OK TO TRANSFUSE Specimen Performing Laboratory Other (Specify) MAIN LAB [address] [place] [address] * POC GLUCOSE (04/30/2017 8:43 PM) Component Value Ref Range Glucose, POC 280 (H) 70 - 100 MG/DL Specimen Performing Laboratory MAIN LAB [address] [place] [address] * CBC AND DIFF (04/30/2017 7:45 PM) Component Value Ref Range White Blood Cells 1.7 (L) 4.5 - 11.0 K/UL RBC 2.18 (L) 4.0 - 5.0 M/UL Hemoglobin 6.8 (L) 12.0 - 15.0 GM/DL Hematocrit 20.3 (L) 36 - 45 % MCV 93.3 80 - 100 FL MCH 31.4 26 - 34 PG MCHC 33.7 32.0 - 36.0 G/DL RDW 24.0 (H) 11 - 15 % Platelet Count 7 (LL)Comment: Value noted, Value unchanged 150 - 400 K/UL MPV 11.7 (H) 7 - 11 FL Nucleated RBCs 2 K/UL Segmented Neutrophils 51 41 - 77 % Lymphocytes 17 (L) 24 - 44 % Monocytes 13 (H) 4 - 12 % Blast 19 % ANISO PRESENT POIK PRESENT Ovalocyte PRESENT Platelet Estimate MKD DEC Absolute Neutrophil Count 0.87 (L) 1.8 - 7.0 K/UL Manual Specimen Performing Laboratory Blood MAIN LAB [address] [place] [address] * BASIC METABOLIC PANEL (04/30/2017 7:45 PM) Component Value Ref Range Sodium 136 (L) 137 - 147 MMOL/L Potassium 4.3 3.5 - 5.1 MMOL/L Chloride 107 98 - 110 MMOL/L CO2 21 21 - 30 MMOL/L Anion Gap 8 3 - 12 Glucose 280 (H) 70 - 100 MG/DL Blood Urea Nitrogen 43 (H) 7 - 25 MG/DL Creatinine 1.15 (H) 0.4 - 1.00 MG/DL Calcium 7.6 (L) 8.5 - 10.6 MG/DL eGFR Non 48 (L) >60 mL/min Comment: The eGFR is not validated for use in drug dosing adjustments. Continue to use estimated creatinine clearance per dosing reference text. Please contact the Clinical Pharmacist for questions. eGFR 59 (L) >60 mL/min Comment: The eGFR is not validated for use in drug dosing adjustments. Continue to use estimated creatinine clearance per dosing reference text. Please contact the Clinical Pharmacist for questions. Specimen Performing Laboratory Blood MAIN LAB [address] [place] [address] * PROTIME INR (PT) (04/30/2017 7:45 PM) Component Value Ref Range INR 1.3 (H) 0.8 - 1.2 Specimen Performing Laboratory Blood MAIN LAB [address] [place] [address] * PTT (APTT) (04/30/2017 7:45 PM) Component Value Ref Range APTT 18.3 (L)Comment: NOTE NEW REFERENCE RANGES 21.0 - 39.0 SEC Specimen Performing Laboratory Blood MAIN LAB [address] [place] [address] * URIC ACID (04/30/2017 7:45 PM) Component Value Ref Range Uric Acid 3.7 2.0 - 7.0 MG/DL Specimen Performing Laboratory Blood MAIN LAB [address] [place], [place] [id number] * FIBRINOGEN (04/30/2017 7:45 PM) Component Value Ref Range Fibrinogen 235 200 - 400 MG/DL Specimen Performing Laboratory Blood MAIN LAB [address] [place], [place] [id number] * PHOSPHORUS (04/30/2017 7:45 PM) Component Value Ref Range Phosphorus 5.8 (H) 2.0 - 4.0 MG/DL Specimen Performing Laboratory Blood MAIN LAB [address] [place] [address] * POC GLUCOSE (04/30/2017 5:02 PM) Component Value Ref Range Glucose, POC 208 (H) 70 - 100 MG/DL Specimen Performing Laboratory MAIN LAB [address] [place] [address] * TYPE & CROSSMATCH (04/30/2017 12:38 PM) Component Value Ref Range Units Ordered 3 Crossmatch Expires 05/03/2017 Record Check FOUND ABO/RH(D) A POS Antibody Screen NEG Electronic Crossmatch YES Unit Number [id number] Blood Component Type RBC,ADSOL,LEUKO REDUCED,IRRADIATED Unit Division 0 Status OF Unit TRANSFUSED Transfusion Status OK TO TRANSFUSE Crossmatch Result COMPATIBLE,ELECTRONIC Unit Number [id number] Blood Component Type RBC,ADSOL,LEUKO REDUCED,IRRADIATED Unit Division 0 Status OF Unit TRANSFUSED Transfusion Status OK TO TRANSFUSE Crossmatch Result COMPATIBLE,ELECTRONIC Unit Number [id number] Blood Component Type RBC,ADSOL,LEUKO REDUCED,IRRADIATED Unit Division 0 Status OF Unit TRANSFUSED Transfusion Status OK TO TRANSFUSE Crossmatch Result COMPATIBLE,ELECTRONIC Specimen Performing Laboratory Blood MAIN LAB [address] [place] [address] * CBC AND DIFF (04/30/2017 12:10 PM) Component Value Ref Range White Blood Cells 3.9 (L) 4.5 - 11.0 K/UL RBC 2.04 (L) 4.0 - 5.0 M/UL Hemoglobin 6.7 (L) 12.0 - 15.0 GM/DL Hematocrit 19.1 (L) 36 - 45 % MCV 93.7 80 - 100 FL MCH 32.9 26 - 34 PG MCHC 35.1 32.0 - 36.0 G/DL RDW 23.0 (H) 11 - 15 % Platelet Count 11 (LL)Comment: Value noted, Value unchanged 150 - 400 K/UL MPV 10.8 7 - 11 FL Segmented Neutrophils 45 41 - 77 % Bands 2 0 - 10 % Lymphocytes 17 (L) 24 - 44 % Monocytes 15 (H) 4 - 12 % Blast 21 % ANISO PRESENT Platelet Estimate MKD DEC Absolute Neutrophil Count 1.84 1.8 - 7.0 K/UL Manual Specimen Performing Laboratory Blood MAIN LAB [address] [place] [address] * BASIC METABOLIC PANEL (04/30/2017 12:10 PM) Component Value Ref Range Sodium 139 137 - 147 MMOL/L Potassium 4.5 3.5 - 5.1 MMOL/L Chloride 110 98 - 110 MMOL/L CO2 22 21 - 30 MMOL/L Anion Gap 7 3 - 12 Glucose 214 (H) 70 - 100 MG/DL Blood Urea Nitrogen 41 (H) 7 - 25 MG/DL Creatinine 0.95 0.4 - 1.00 MG/DL Calcium 7.5 (L) 8.5 - 10.6 MG/DL eGFR Non [...] Pharmacist for questions. Specimen Performing Laboratory Blood [facility] [address] [place], [place] [id number] * PROTIME INR (PT) (04/30/2017 12:10 PM) Component Value Ref Range INR 1.3 (H) 0.8 - 1.2 Specimen Performing Laboratory Blood [facility] [address] [place], [place] [id number] * PTT (APTT) (04/30/2017 12:10 PM) Component Value Ref Range APTT 21.4Comment: NOTE NEW REFERENCE RANGES 21.0 - 39.0 SEC Specimen Performing Laboratory Blood [facility] [address] [place] [address] * URIC ACID (04/30/2017 12:10 PM) Component Value Ref Range Uric Acid 3.5 2.0 - 7.0 MG/DL Specimen Performing Laboratory Blood [facility] [address] [place], [place] [id number] * FIBRINOGEN (04/30/2017 12:10 PM) Component Value Ref Range Fibrinogen 242 200 - 400 MG/DL Specimen Performing Laboratory Blood [facility] [address] [place] [address] * PHOSPHORUS (04/30/2017 12:10 PM) Component Value Ref Range Phosphorus 5.2 (H) 2.0 - 4.0 MG/DL Specimen Performing Laboratory Blood [facility] [address] [place], [place] [id number] * POC GLUCOSE (04/30/2017 12:02 PM) Component Value Ref Range Glucose, POC 214 (H) 70 - 100 MG/DL Specimen Performing Laboratory [facility] [address] [place] [address] * POC GLUCOSE (04/30/2017 7:17 AM) Component Value Ref Range Glucose, POC 239 (H) 70 - 100 MG/DL Specimen Performing Laboratory [facility] [address] [place], [place] [id number] * CBC AND DIFF (04/30/2017 4:25 AM) Component Value Ref Range White Blood Cells 7.8 4.5 - 11.0 K/UL RBC 2.18 (L) 4.0 - 5.0 M/UL Hemoglobin 7.3 (L) 12.0 - 15.0 GM/DL Hematocrit 20.9 (L) 36 - 45 % MCV 95.6 80 - 100 FL MCH 33.6 26 - 34 PG MCHC 35.1 32.0 - 36.0 G/DL RDW 23.7 (H) 11 - 15 % Platelet Count 13 (LL)Comment: Value noted, Value unchanged 150 - 400 K/UL MPV 11.0 7 - 11 FL Nucleated RBCs 1 K/UL Segmented Neutrophils 35 (L) 41 - 77 % Bands 1 0 - 10 % Lymphocytes 24 24 - 44 % Monocytes 20 (H) 4 - 12 % Metamyelocyte 2 % Myelocyte 1 % Blast 17 % ANISO PRESENT Absolute Neutrophil Count 2.81 1.8 - 7.0 K/UL Manual Specimen Performing Laboratory Blood MAIN LAB [address] [place] [address] * PROTIME INR (PT) (04/30/2017 4:25 AM) Component Value Ref Range INR 1.3 (H) 0.8 - 1.2 Specimen Performing Laboratory Blood MAIN LAB [address] [place] [address] * PTT (APTT) (04/30/2017 4:25 AM) Component Value Ref Range APTT 21.8Comment: NOTE NEW REFERENCE RANGES 21.0 - 39.0 SEC Specimen Performing Laboratory Blood [facility] [address] [place] [address] * URIC ACID (04/30/2017 4:25 AM) Component Value Ref Range Uric Acid 3.6 2.0 - 7.0 MG/DL Specimen Performing Laboratory Blood MAIN LAB [address] [place] [address] * FIBRINOGEN (04/30/2017 4:25 AM) Component Value Ref Range Fibrinogen 318 200 - 400 MG/DL Specimen Performing Laboratory Blood MAIN LAB [address] [place] [address] * PHOSPHORUS (04/30/2017 4:25 AM) Component Value Ref Range Phosphorus 6.2 (H) 2.0 - 4.0 MG/DL Specimen Performing Laboratory Blood MAIN LAB [address] [place] [address] * MAGNESIUM (04/30/2017 4:25 AM) Component Value Ref Range Magnesium 2.1 1.6 - 2.6 mg/dL Specimen Performing Laboratory Blood MAIN LAB [address] [place] [address] * COMPREHENSIVE METABOLIC PANEL (04/30/2017 4:25 AM) Component Value Ref Range Sodium 138 137 - 147 MMOL/L Potassium 4.8 3.5 - 5.1 MMOL/L Chloride 109 98 - 110 MMOL/L Glucose 244 (H) 70 - 100 MG/DL Blood Urea Nitrogen 35 (H) 7 - 25 MG/DL Creatinine 1.07 (H) 0.4 - 1.00 MG/DL Calcium 7.8 (L) 8.5 - 10.6 MG/DL Total Protein 6.0 6.0 - 8.0 G/DL Total Bilirubin 0.5 0.3 - 1.2 MG/DL Albumin 2.5 (L) 3.5 - 5.0 G/DL Alk Phosphatase 34 25 - 110 U/L AST (SGOT) 13 7 - 40 U/L CO2 23 21 - 30 MMOL/L ALT (SGPT) 6 (L) 7 - 56 U/L Anion Gap 6 3 - 12 eGFR Non 53 (L) >60 mL/min Comment: The eGFR is [...] questions. Specimen Performing Laboratory Blood MAIN LAB [address] [place] [address] * LDH-LACTATE DEHYDROGENASE (04/30/2017 4:25 AM) Component Value Ref Range Lactate Dehydrogenase 510 (H) 100 - 210 U/L Specimen Performing Laboratory Blood MAIN LAB [address] [place] [address] * PROTIME INR (PT) (04/29/2017 10:55 PM) Component Value Ref Range INR 1.4 (H) 0.8 - 1.2 Specimen Performing Laboratory Blood [facility] [address] [place] [address] [id number] * PTT (APTT) (04/29/2017 10:55 PM) Component Value Ref Range APTT 21.2Comment: NOTE NEW REFERENCE RANGES 21.0 - 39.0 SEC Specimen Performing Laboratory Blood [facility] [address] [id number] * FIBRINOGEN (04/29/2017 10:55 PM) Component Value Ref Range Fibrinogen 339 200 - 400 MG/DL Specimen Performing Laboratory Blood [facility] [address] [place] [address] * CBC AND DIFF (04/29/2017 10:55 PM) Component Value Ref Range White Blood Cells 8.8 4.5 - 11.0 K/UL RBC 2.17 (L) 4.0 - 5.0 M/UL Hemoglobin 7.1 (L) 12.0 - 15.0 GM/DL Hematocrit 20.5 (L) 36 - 45 % MCV 94.6 80 - 100 FL MCH 32.8 26 - 34 PG MCHC 34.6 32.0 - 36.0 G/DL RDW 23.9 (H) 11 - 15 % Platelet Count 12 (LL)Comment: Value noted, Value unchanged 150 - 400 K/UL MPV 10.4 7 - 11 FL Segmented Neutrophils 40 (L) 41 - 77 % Bands 2 0 - 10 % Lymphocytes 23 (L) 24 - 44 % Monocytes 13 (H) 4 - 12 % Blast 22 % ANISO PRESENT Absolute Neutrophil Count 3.70 1.8 - 7.0 K/UL Manual Specimen Performing Laboratory Blood MAIN LAB [address] [place] [address] * POC GLUCOSE (04/29/2017 8:56 PM) Component Value Ref Range Glucose, POC 274 (H) 70 - 100 MG/DL Specimen Performing Laboratory MAIN LAB [address] [place] [address] * CBC AND DIFF (04/29/2017 8:03 PM) Component Value Ref Range White Blood Cells 7.5 4.5 - 11.0 K/UL RBC 2.07 (L) 4.0 - 5.0 M/UL Hemoglobin 6.7 (L) 12.0 - 15.0 GM/DL Hematocrit 19.6 (L) 36 - 45 % MCV 94.5 80 - 100 FL MCH 32.6 26 - 34 PG MCHC 34.4 32.0 - 36.0 G/DL RDW 22.9 (H) 11 - 15 % Platelet Count 11 (LL)Comment: Value noted, Value unchanged 150 - 400 K/UL MPV 10.2 7 - 11 FL Segmented Neutrophils 22 (L) 41 - 77 % Bands 2 0 - 10 % Lymphocytes 26 24 - 44 % Monocytes 15 (H) 4 - 12 % Metamyelocyte 1 % Blast 34 % ANISO PRESENT Absolute Neutrophil Count 1.80 1.8 - 7.0 K/UL Manual Specimen Performing Laboratory Blood MAIN LAB [address] [place] [address] * BASIC METABOLIC PANEL (04/29/2017 8:03 PM) Component Value Ref Range Sodium 137 137 - 147 MMOL/L Potassium 4.2 3.5 - 5.1 MMOL/L Chloride 109 98 - 110 MMOL/L CO2 22 21 - 30 MMOL/L Anion Gap 6 3 - 12 Glucose 264 (H) 70 - 100 MG/DL Blood Urea Nitrogen 32 (H) 7 - 25 MG/DL Creatinine 1.07 (H) 0.4 - 1.00 MG/DL Calcium 7.6 (L) 8.5 - 10.6 MG/DL eGFR Non 53 (L) >60 mL/min Comment: The eGFR is [...] questions. Specimen Performing Laboratory Blood MAIN LAB [address] [place] [address] * URIC ACID (04/29/2017 8:03 PM) Component Value Ref Range Uric Acid 3.5 2.0 - 7.0 MG/DL Specimen Performing Laboratory Blood MAIN LAB [address] [place] [address] * PHOSPHORUS (04/29/2017 8:03 PM) Component Value Ref Range Phosphorus 3.9 2.0 - 4.0 MG/DL Specimen Performing Laboratory Blood MAIN LAB [address] [place] [address] * POC GLUCOSE (04/29/2017 4:32 PM) Component Value Ref Range Glucose, POC 222 (H) 70 - 100 MG/DL Specimen Performing Laboratory MAIN LAB [address] [place] [address] * POC GLUCOSE (04/29/2017 12:32 PM) Component Value Ref Range Glucose, POC 259 (H) 70 - 100 MG/DL Specimen Performing Laboratory [facility] [address] [place] [address] * CBC AND DIFF (04/29/2017 11:28 AM) Component Value Ref Range White Blood Cells 24.0 (H) 4.5 - 11.0 K/UL RBC 2.48 (L) 4.0 - 5.0 M/UL Hemoglobin 8.1 (L) 12.0 - 15.0 GM/DL Hematocrit 23.2 (L) 36 - 45 % MCV 93.8 80 - 100 FL MCH 32.9 26 - 34 PG MCHC 35.1 32.0 - 36.0 G/DL RDW 23.0 (H) 11 - 15 % Platelet Count 17 (LL)Comment: Value noted, Value unchanged 150 - 400 K/UL MPV 11.0 7 - 11 FL Segmented Neutrophils 27 (L) 41 - 77 % Bands 3 0 - 10 % Lymphocytes 22 (L) 24 - 44 % Monocytes 21 (H) 4 - 12 % Promyelocyte 1 % Blast 26 % ANISO PRESENT POIK PRESENT POLY PRESENT Platelet Estimate MKD DEC Absolute Neutrophil Count 7.20 (H) 1.8 - 7.0 K/UL Manual Specimen Performing Laboratory Blood MAIN LAB [address] [place] [address] * BASIC METABOLIC PANEL (04/29/2017 11:28 AM) Component Value Ref Range Sodium 137 137 - 147 MMOL/L Potassium 4.5 3.5 - 5.1 MMOL/L Chloride 108 98 - 110 MMOL/L CO2 22 21 - 30 MMOL/L Anion Gap 7 3 - 12 Glucose 227 (H) 70 - 100 MG/DL Blood Urea Nitrogen 28 (H) 7 - 25 MG/DL Creatinine 1.01 (H) 0.4 - 1.00 MG/DL Calcium 8.2 (L) 8.5 - 10.6 MG/DL eGFR Non 56 (L) >60 mL/min Comment: The eGFR is [...] Specimen Performing Laboratory Blood MAIN LAB [address] [place] [address] * PROTIME INR (PT) (04/29/2017 11:28 AM) Component Value Ref Range INR 1.3 (H) 0.8 - 1.2 Specimen Performing Laboratory Blood MAIN LAB [address] [place], [place] [id number] * PTT (APTT) (04/29/2017 11:28 AM) Component Value Ref Range APTT 18.7 (L)Comment: NOTE NEW REFERENCE RANGES 21.0 - 39.0 SEC Specimen Performing Laboratory Blood MAIN LAB [address] [place], [place] [id number] * URIC ACID (04/29/2017 11:28 AM) Component Value Ref Range Uric Acid 3.4 2.0 - 7.0 MG/DL Specimen Performing Laboratory Blood [facility] [address] [place] [address] * FIBRINOGEN (04/29/2017 11:28 AM) Component Value Ref Range Fibrinogen 388 200 - 400 MG/DL Specimen Performing Laboratory Blood [facility] [address] [place], [place] [id number] * PHOSPHORUS (04/29/2017 11:28 AM) Component Value Ref Range Phosphorus 3.2 2.0 - 4.0 MG/DL Specimen Performing Laboratory Blood [facility] [address] [place], [place] [id number] * POC GLUCOSE (04/29/2017 7:15 AM) Component Value Ref Range Glucose, POC 218 (H) 70 - 100 MG/DL Specimen Performing Laboratory [facility] [address] [place] [address] * CBC AND DIFF (04/29/2017 2:30 AM) Component Value Ref Range White Blood Cells 17.2 (H) 4.5 - 11.0 K/UL RBC 2.23 (L) 4.0 - 5.0 M/UL Hemoglobin 7.4 (L) 12.0 - 15.0 GM/DL Hematocrit 21.3 (L) 36 - 45 % MCV 95.5 80 - 100 FL MCH 33.3 26 - 34 PG MCHC 34.8 32.0 - 36.0 G/DL RDW 24.7 (H) 11 - 15 % Platelet Count 13 (LL)Comment: Value noted, Value unchanged 150 - 400 K/UL MPV 10.0 7 - 11 FL Segmented Neutrophils 19 (L) 41 - 77 % Lymphocytes 13 (L) 24 - 44 % Monocytes 24 (H) 4 - 12 % Myelocyte 4 % Promyelocyte 2 % Blast 38 % ANISO PRESENT HYPO PRESENT POIK PRESENT POLY PRESENT Ovalocyte PRESENT Platelet Estimate MKD DEC Absolute Neutrophil Count 3.27 1.8 - 7.0 K/UL Manual Specimen Performing Laboratory Blood MAIN LAB [address] [place] [address] * PROTIME INR (PT) (04/29/2017 2:30 AM) Component Value Ref Range INR 1.4 (H) 0.8 - 1.2 Specimen Performing Laboratory Blood MAIN LAB [address] [place] [address] * PTT (APTT) (04/29/2017 2:30 AM) Component Value Ref Range APTT 20.5 (L)Comment: NOTE NEW REFERENCE RANGES 21.0 - 39.0 SEC Specimen Performing Laboratory Blood MAIN LAB [address] [place] [address] * URIC ACID (04/29/2017 2:30 AM) Component Value Ref Range Uric Acid 3.3 2.0 - 7.0 MG/DL Specimen Performing Laboratory Blood MAIN LAB [address] [place], [place] [id number] * FIBRINOGEN (04/29/2017 2:30 AM) Component Value Ref Range Fibrinogen 343 200 - 400 MG/DL Specimen Performing Laboratory Blood MAIN LAB [address] [place], [place] [id number] * PHOSPHORUS (04/29/2017 2:30 AM) Component Value Ref Range Phosphorus 3.4 2.0 - 4.0 MG/DL Specimen Performing Laboratory Blood MAIN LAB [address] [place], [place] [id number] * MAGNESIUM (04/29/2017 2:30 AM) Component Value Ref Range Magnesium 2.1 1.6 - 2.6 mg/dL Specimen Performing Laboratory Blood MAIN LAB [address] [place] [address] * COMPREHENSIVE METABOLIC PANEL (04/29/2017 2:30 AM) Component Value Ref Range Sodium 137 137 - 147 MMOL/L Potassium 4.5 3.5 - 5.1 MMOL/L Chloride 110 98 - 110 MMOL/L Glucose 214 (H) 70 - 100 MG/DL Blood Urea Nitrogen 25 7 - 25 MG/DL Creatinine 0.95 0.4 - 1.00 MG/DL Calcium 8.0 (L) 8.5 - 10.6 MG/DL Total Protein 5.9 (L) 6.0 - 8.0 G/DL Total Bilirubin 0.5 0.3 - 1.2 MG/DL Albumin 2.4 (L) 3.5 - 5.0 G/DL Alk Phosphatase 34 25 - 110 U/L AST (SGOT) 14 7 - 40 U/L CO2 23 21 - 30 MMOL/L ALT (SGPT) 8 7 - 56 U/L Anion Gap 4 3 - 12 eGFR Non >60 >60 [...] Specimen Performing Laboratory Blood MAIN LAB [address] [place] [address] * LDH-LACTATE DEHYDROGENASE (04/29/2017 2:30 AM) Component Value Ref Range Lactate Dehydrogenase 641 (H) 100 - 210 U/L Specimen Performing Laboratory Blood MAIN LAB [address] [place] [address] * CBC AND DIFF (04/28/2017 8:17 PM) Component Value Ref Range White Blood Cells 15.1 (H) 4.5 - 11.0 K/UL RBC 2.32 (L) 4.0 - 5.0 M/UL Hemoglobin 7.5 (L) 12.0 - 15.0 GM/DL Hematocrit 22.3 (L) 36 - 45 % MCV 96.1 80 - 100 FL MCH 32.3 26 - 34 PG MCHC 33.6 32.0 - 36.0 G/DL RDW 24.6 (H) 11 - 15 % Platelet Count 17 (LL)Comment: Value noted, Value unchanged 150 - 400 K/UL MPV 10.2 7 - 11 FL Nucleated RBCs 1 K/UL Segmented Neutrophils 11 (L) 41 - 77 % Lymphocytes 31 24 - 44 % Monocytes 31 (H) 4 - 12 % Eosinophil 1 0 - 5 % Myelocyte 3 % Promyelocyte 3 % Blast 20 % ANISO PRESENT POIK PRESENT POLY PRESENT Ovalocyte PRESENT Yaneli Rods PRESENT Platelet Estimate MKD DEC Absolute Neutrophil Count 1.66 (L) 1.8 - 7.0 K/UL Manual Specimen Performing Laboratory Blood MAIN LAB [address] [place] [address] * BASIC METABOLIC PANEL (04/28/2017 8:17 PM) Component Value Ref Range Sodium 136 (L) 137 - 147 MMOL/L Potassium 4.5 3.5 - 5.1 MMOL/L Chloride 109 98 - 110 MMOL/L CO2 22 21 - 30 MMOL/L Anion Gap 5 3 - 12 Glucose 310 (H) 70 - 100 MG/DL Blood Urea Nitrogen 26 (H) 7 - 25 MG/DL Creatinine 1.01 (H) 0.4 - 1.00 MG/DL Calcium 7.9 (L) 8.5 - 10.6 MG/DL eGFR Non 56 (L) >60 mL/min Comment: The eGFR is [...] questions. Specimen Performing Laboratory Blood MAIN LAB [address] [place] [address] * PROTIME INR (PT) (04/28/2017 8:17 PM) Component Value Ref Range INR 1.3 (H) 0.8 - 1.2 Specimen Performing Laboratory Blood MAIN LAB [address] [place] [address] 69[address] * PTT (APTT) (04/28/2017 8:17 PM) Component Value Ref Range APTT 20.5 (L)Comment: NOTE NEW REFERENCE RANGES 21.0 - 39.0 SEC Specimen Performing Laboratory Blood MAIN LAB [address] [place] [address] * URIC ACID (04/28/2017 8:17 PM) Component Value Ref Range Uric Acid 3.3 2.0 - 7.0 MG/DL Specimen Performing Laboratory Blood MAIN LAB [address] [place] [address] 150[address] * FIBRINOGEN (04/28/2017 8:17 PM) Component Value Ref Range Fibrinogen 443 (H) 200 - 400 MG/DL Specimen Performing Laboratory Blood MAIN LAB [address] [place] [address]12 * PHOSPHORUS (04/28/2017 8:17 PM) Component Value Ref Range Phosphorus 3.1 2.0 - 4.0 MG/DL Specimen Performing Laboratory Blood [facility] [address] [place] [address] * POC GLUCOSE (04/28/2017 8:10 PM) Component Value Ref Range Glucose, POC 321 (H) 70 - 100 MG/DL Specimen Performing Laboratory [facility] [address] [place] [address] 718[address] * POC GLUCOSE (04/28/2017 6:17 PM) Component Value Ref Range Glucose, POC 209 (H) 70 - 100 MG/DL Specimen Performing Laboratory [facility] [address] [place] [address] 77652 * POC GLUCOSE (04/28/2017 1:36 PM) Component Value Ref Range Glucose, POC 167 (H) 70 - 100 MG/DL Specimen Performing Laboratory [facility] [address] [place] [address] * HLA ANTIBODY ID (04/28/2017 12:40 PM) Component Value Ref Range HLA Antibody ID SEE COAL CHEMIST FOR REPORT Specimen Performing Laboratory REFERENCE LAB * CMV AB IGG (04/28/2017 12:40 PM) Component Value Ref Range CMV, IgG NEG Specimen Performing Laboratory Blood [facility] [address] [place] [phone] * HLA ANTIBODY SCREEN (04/28/2017 12:40 PM) Component Value Ref Range HLA Antibody Screen SEE COAL CHEMIST FOR REPORT Specimen Performing Laboratory Blood REFERENCE LAB * HLA CLASS 1A 1B 1C AND 2 PHENO HIGH RES (04/28/2017 12:40 PM) Component Value Ref Range HLA Class 1A 1B 1C and 2 SEE COAL CHEMIST FOR REPORT Pheno High Res Specimen Performing Laboratory Blood REFERENCE LAB * CBC AND DIFF (04/28/2017 12:40 PM) Component Value Ref Range White Blood Cells 33.8 (H) 4.5 - 11.0 K/UL RBC 2.29 (L) 4.0 - 5.0 M/UL Hemoglobin 7.2 (L) 12.0 - 15.0 GM/DL Hematocrit 21.4 (L) 36 - 45 % MCV 93.6 80 - 100 FL MCH 31.5 26 - 34 PG MCHC 33.6 32.0 - 36.0 G/DL RDW 23.6 (H) 11 - 15 % Platelet Count 16 (LL)Comment: Value noted, Value unchanged 150 - 400 K/UL MPV 9.8 7 - 11 FL Segmented Neutrophils 12 (L) 41 - 77 % Bands 1 0 - 10 % Lymphocytes 16 (L) 24 - 44 % Monocytes 42 (H) 4 - 12 % Blast 29 % ANISO PRESENT POIK PRESENT POLY PRESENT Ovalocyte PRESENT Platelet Estimate MKD DEC Absolute Neutrophil Count 4.40 1.8 - 7.0 K/UL Manual Specimen Performing Laboratory Blood [facility] [address] [place] [address] * BASIC METABOLIC PANEL (04/28/2017 12:40 PM) Component Value Ref Range Sodium 139 137 - 147 MMOL/L Potassium 3.8 3.5 - 5.1 MMOL/L Chloride 110 98 - 110 MMOL/L CO2 24 21 - 30 MMOL/L Anion Gap 5 3 - 12 Glucose 161 (H) 70 - 100 MG/DL Blood Urea Nitrogen 27 (H) 7 - 25 MG/DL Creatinine 0.98 0.4 - 1.00 MG/DL Calcium 8.1 (L) 8.5 - 10.6 MG/DL eGFR Non 58 (L) >60 mL/min Comment: [...] questions. Specimen Performing Laboratory Blood MAIN LAB [address] [place] [address] * PROTIME INR (PT) (04/28/2017 12:40 PM) Component Value Ref Range INR 1.3 (H) 0.8 - 1.2 Specimen Performing Laboratory Blood MAIN LAB [address] [place] [address] * PTT (APTT) (04/28/2017 12:40 PM) Component Value Ref Range APTT 22.0Comment: NOTE NEW REFERENCE RANGES 21.0 - 39.0 SEC Specimen Performing Laboratory Blood [facility] [address] [place] [address] 11694 * URIC ACID (04/28/2017 12:40 PM) Component Value Ref Range Uric Acid 3.5 2.0 - 7.0 MG/DL Specimen Performing Laboratory Blood [facility] [address] [place] [address] 495[address] * FIBRINOGEN (04/28/2017 12:40 PM) Component Value Ref Range Fibrinogen 349 200 - 400 MG/DL Specimen Performing Laboratory Blood MAIN LAB [address] [place] [address] 29973 * PHOSPHORUS (04/28/2017 12:40 PM) Component Value Ref Range Phosphorus 2.9 2.0 - 4.0 MG/DL Specimen Performing Laboratory Blood MAIN LAB [address] [place] [address] 98474 * POC GLUCOSE (04/28/2017 9:51 AM) Component Value Ref Range Glucose, POC 167 (H) 70 - 100 MG/DL Specimen Performing Laboratory MAIN LAB [address] [place] [address]604 * CBC AND DIFF (04/28/2017 4:00 AM) Component Value Ref Range White Blood Cells 29.1 (H) 4.5 - 11.0 K/UL RBC 2.17 (L) 4.0 - 5.0 M/UL Hemoglobin 7.2 (L) 12.0 - 15.0 GM/DL Hematocrit 20.9 (L) 36 - 45 % MCV 96.3 80 - 100 FL MCH 33.2 26 - 34 PG MCHC 34.5 32.0 - 36.0 G/DL RDW 24.7 (H) 11 - 15 % Platelet Count 14 (LL)Comment: Value noted, Value unchanged 150 - 400 K/UL MPV 10.1 7 - 11 FL Nucleated RBCs 2 K/UL Segmented Neutrophils 16 (L) 41 - 77 % Bands 3 0 - 10 % Lymphocytes 23 (L) 24 - 44 % Monocytes 31 (H) 4 - 12 % Promyelocyte 2 % Blast 25 % ANISO PRESENT POLY PRESENT Platelet Estimate MKD DEC Absolute Neutrophil Count 5.53 1.8 - 7.0 K/UL Manual Specimen Performing Laboratory Blood MAIN LAB [address] [place] [address] 91645 * PROTIME INR (PT) (04/28/2017 4:00 AM) Component Value Ref Range INR 1.4 (H) 0.8 - 1.2 Specimen Performing Laboratory Blood MAIN LAB [address] [place] [address] 12603 * PTT (APTT) (04/28/2017 4:00 AM) Component Value Ref Range APTT 25.3Comment: NOTE NEW REFERENCE RANGES 21.0 - 39.0 SEC Specimen Performing Laboratory Blood MAIN LAB [address] [place] [address] 99139 * URIC ACID (04/28/2017 4:00 AM) Component Value Ref Range Uric Acid 3.9 2.0 - 7.0 MG/DL Specimen Performing Laboratory Blood MAIN LAB [address] [place] [address] 86319 * FIBRINOGEN (04/28/2017 4:00 AM) Component Value Ref Range Fibrinogen 443 (H) 200 - 400 MG/DL Specimen Performing Laboratory Blood MAIN LAB [address] [place] [address] 14279 * PHOSPHORUS (04/28/2017 4:00 AM) Component Value Ref Range Phosphorus 3.1 2.0 - 4.0 MG/DL Specimen Performing Laboratory Blood MAIN LAB [address] [place] [address] 65416 * MAGNESIUM (04/28/2017 4:00 AM) Component Value Ref Range Magnesium 1.8 1.6 - 2.6 mg/dL Specimen Performing Laboratory Blood MAIN LAB [address] [place] [address] 632[address] * COMPREHENSIVE METABOLIC PANEL (04/28/2017 4:00 AM) Component Value Ref Range Sodium 140 137 - 147 MMOL/L Potassium 3.8 3.5 - 5.1 MMOL/L Chloride 112 (H) 98 - 110 MMOL/L Glucose 139 (H) 70 - 100 MG/DL Blood Urea Nitrogen 29 (H) 7 - 25 MG/DL Creatinine 1.00 0.4 - 1.00 MG/DL Calcium 7.9 (L) 8.5 - 10.6 MG/DL Total Protein 5.5 (L) 6.0 - 8.0 G/DL Total Bilirubin 0.6 0.3 - 1.2 MG/DL Albumin 2.2 (L) 3.5 - 5.0 G/DL Alk Phosphatase 32 25 - 110 U/L AST (SGOT) 12 7 - 40 U/L CO2 23 21 - 30 MMOL/L ALT (SGPT) 5 (L) 7 - 56 U/L Anion Gap 5 3 - 12 eGFR Non 57 (L) >60 mL/min Comment: The eGFR is [...] Specimen Performing Laboratory Blood MAIN LAB [address] [place] [address] * LDH-LACTATE DEHYDROGENASE (04/28/2017 4:00 AM) Component Value Ref Range Lactate Dehydrogenase 577 (H) 100 - 210 U/L Specimen Performing Laboratory Blood MAIN LAB [address] [place], [place] [id number] * POC GLUCOSE (04/27/2017 9:07 PM) Component Value Ref Range Glucose, POC 221 (H) 70 - 100 MG/DL Specimen Performing Laboratory MAIN LAB [address] [place] [address] * CBC AND DIFF (04/27/2017 8:55 PM) Component Value Ref Range White Blood Cells 26.7 (H) 4.5 - 11.0 K/UL RBC 2.17 (L) 4.0 - 5.0 M/UL Hemoglobin 7.1 (L) 12.0 - 15.0 GM/DL Hematocrit 20.2 (L) 36 - 45 % MCV 93.4 80 - 100 FL MCH 32.8 26 - 34 PG MCHC 35.1 32.0 - 36.0 G/DL RDW 25.2 (H) 11 - 15 % Platelet Count 12 (LL)Comment: Value noted, Value unchanged 150 - 400 K/UL MPV 10.2 7 - 11 FL Segmented Neutrophils 10 (L) 41 - 77 % Lymphocytes 17 (L) 24 - 44 % Monocytes 32 (H) 4 - 12 % Metamyelocyte 1 % Myelocyte 1 % Promyelocyte 5 % Blast 34 % ANISO PRESENT HYPO PRESENT Ovalocyte PRESENT Platelet Estimate MKD DEC Absolute Neutrophil Count 2.67 1.8 - 7.0 K/UL Manual Specimen Performing Laboratory Blood MAIN LAB [address] [place] [address] * BASIC METABOLIC PANEL (04/27/2017 8:55 PM) Component Value Ref Range Sodium 140 137 - 147 MMOL/L Potassium 3.7 3.5 - 5.1 MMOL/L Chloride 113 (H) 98 - 110 MMOL/L CO2 22 21 - 30 MMOL/L Anion Gap 5 3 - 12 Glucose 202 (H) 70 - 100 MG/DL Blood Urea Nitrogen 30 (H) 7 - 25 MG/DL Creatinine 1.02 (H) 0.4 - 1.00 MG/DL Calcium 7.6 (L) 8.5 - 10.6 MG/DL eGFR Non 56 (L) >60 mL/min Comment: The eGFR is [...] questions. Specimen Performing Laboratory Blood MAIN LAB [address] [place] [address] 58116 * PROTIME INR (PT) (04/27/2017 8:55 PM) Component Value Ref Range INR 1.4 (H) 0.8 - 1.2 Specimen Performing Laboratory Blood MAIN LAB [address] [place] [address] 21408 * PTT (APTT) (04/27/2017 8:55 PM) Component Value Ref Range APTT 19.2 (L)Comment: NOTE NEW REFERENCE RANGES 21.0 - 39.0 SEC Specimen Performing Laboratory Blood MAIN LAB [address] [place] [address] 30570 * URIC ACID (04/27/2017 8:55 PM) Component Value Ref Range Uric Acid 3.8 2.0 - 7.0 MG/DL Specimen Performing Laboratory Blood MAIN LAB [address] [place] [address] 38881 * FIBRINOGEN (04/27/2017 8:55 PM) Component Value Ref Range Fibrinogen 373 200 - 400 MG/DL Specimen Performing Laboratory Blood MAIN LAB [address] [place] [address] 01847 * PHOSPHORUS (04/27/2017 8:55 PM) Component Value Ref Range Phosphorus 2.5 2.0 - 4.0 MG/DL Specimen Performing Laboratory Blood MAIN LAB [address] [place] [address] 14185 * POC GLUCOSE (04/27/2017 5:24 PM) Component Value Ref Range Glucose, POC 167 (H) 70 - 100 MG/DL Specimen Performing Laboratory MAIN LAB [address] [place] [address] 06292 * CBC AND DIFF (04/27/2017 12:26 PM) Component Value Ref Range White Blood Cells 29.1 (H) 4.5 - 11.0 K/UL RBC 2.21 (L) 4.0 - 5.0 M/UL Hemoglobin 7.0 (L) 12.0 - 15.0 GM/DL Hematocrit 20.5 (L) 36 - 45 % MCV 92.8 80 - 100 FL MCH 31.9 26 - 34 PG MCHC 34.4 32.0 - 36.0 G/DL RDW 24.2 (H) 11 - 15 % Platelet Count 13 (LL) 150 - 400 K/UL Comment: Critical Result PLT:Called to JORGE Canchola at: 13:05:25 by: TATE Read back by: JORGE Canchola MPV 9.8 7 - 11 FL Segmented Neutrophils 17 (L) 41 - 77 % Bands 5 0 - 10 % Lymphocytes 25 24 - 44 % Monocytes 29 (H) 4 - 12 % Metamyelocyte 2 % Myelocyte 5 % Blast 17 % ANISO PRESENT POIK PRESENT POLY PRESENT Ovalocyte PRESENT Platelet Estimate MKD DEC Absolute Neutrophil Count 6.41 1.8 - 7.0 K/UL Manual Specimen Performing Laboratory Blood [facility] [address] [place] [address] * BASIC METABOLIC PANEL (04/27/2017 12:26 PM) Component Value Ref Range Sodium 137 137 - 147 MMOL/L Potassium 4.0 3.5 - 5.1 MMOL/L Chloride 109 98 - 110 MMOL/L CO2 21 21 - 30 MMOL/L Anion Gap 7 3 - 12 Glucose 155 (H) 70 - 100 MG/DL Blood Urea Nitrogen 33 (H) 7 - 25 MG/DL Creatinine 0.97 0.4 - 1.00 MG/DL Calcium 8.0 (L) 8.5 - 10.6 MG/DL eGFR Non 59 (L) >60 mL/min Comment: The eGFR is [...] Pharmacist for questions. Specimen Performing Laboratory Blood [facility] [address] [place] [address] * PROTIME INR (PT) (04/27/2017 12:26 PM) Component Value Ref Range INR 1.5 (H) 0.8 - 1.2 Specimen Performing Laboratory Blood [facility] [address] [place], [place] [id number] * PTT (APTT) (04/27/2017 12:26 PM) Component Value Ref Range APTT 26.4Comment: NOTE NEW REFERENCE RANGES 21.0 - 39.0 SEC Specimen Performing Laboratory Blood [facility] [address] [place] [address] 72518 * URIC ACID (04/27/2017 12:26 PM) Component Value Ref Range Uric Acid 3.9 2.0 - 7.0 MG/DL Specimen Performing Laboratory Blood [facility] [address] [place], [place] [id number] * FIBRINOGEN (04/27/2017 12:26 PM) Component Value Ref Range Fibrinogen 417 (H) 200 - 400 MG/DL Specimen Performing Laboratory Blood [facility] [address] [place] [address] 48861 * PHOSPHORUS (04/27/2017 12:26 PM) Component Value Ref Range Phosphorus 2.5 2.0 - 4.0 MG/DL Specimen Performing Laboratory Blood [facility] [address] [place] [address] 85289 * POC GLUCOSE (04/27/2017 12:20 PM) Component Value Ref Range Glucose, POC 180 (H) 70 - 100 MG/DL Specimen Performing Laboratory [facility] [address] [place] [address] 32004 * POC GLUCOSE (04/27/2017 8:05 AM) Component Value Ref Range Glucose, POC 161 (H) 70 - 100 MG/DL Specimen Performing Laboratory [facility] [address] [place], [place] [id number] * CBC AND DIFF (04/27/2017 5:24 AM) Component Value Ref Range White Blood Cells 32.6 (H) 4.5 - 11.0 K/UL RBC 2.25 (L) 4.0 - 5.0 M/UL Hemoglobin 7.1 (L) 12.0 - 15.0 GM/DL Hematocrit 20.9 (L) 36 - 45 % MCV 93.1 80 - 100 FL MCH 31.8 26 - 34 PG MCHC 34.1 32.0 - 36.0 G/DL RDW 24.5 (H) 11 - 15 % Platelet Count 15 (LL) 150 - 400 K/UL Comment: Critical Result PLT:Called to CATHRYN Ibrahim at: 07:19:53 by: MANPREET Read back by: CATHRYN Ibrahim MPV 9.7 7 - 11 FL Nucleated RBCs 1 K/UL Segmented Neutrophils 14 (L) 41 - 77 % Bands 2 0 - 10 % Lymphocytes 14 (L) 24 - 44 % Monocytes 40 (H) 4 - 12 % Myelocyte 5 % Promyelocyte 3 % Blast 22 % ANISO PRESENT POIK PRESENT POLY PRESENT Ovalocyte PRESENT Teardrop PRESENT Platelet Estimate MKD DEC Absolute Neutrophil Count 5.21 1.8 - 7.0 K/UL Manual Specimen Performing Laboratory Blood MAIN LAB [address] [place] [address] 53027 * PROTIME INR (PT) (04/27/2017 5:24 AM) Component Value Ref Range INR 1.4 (H) 0.8 - 1.2 Specimen Performing Laboratory Blood MAIN LAB [address] [place] [address] 86632 * PTT (APTT) (04/27/2017 5:24 AM) Component Value Ref Range APTT 24.3Comment: NOTE NEW REFERENCE RANGES 21.0 - 39.0 SEC Specimen Performing Laboratory Blood MAIN LAB [address] [place] [address] 15383 * URIC ACID (04/27/2017 5:24 AM) Component Value Ref Range Uric Acid 4.7 2.0 - 7.0 MG/DL Specimen Performing Laboratory Blood [facility] [address] [place] [id number] * FIBRINOGEN (04/27/2017 5:24 AM) Component Value Ref Range Fibrinogen 408 (H) 200 - 400 MG/DL Specimen Performing Laboratory Blood [facility] [address] [place] [id number] * PHOSPHORUS (04/27/2017 5:24 AM) Component Value Ref Range Phosphorus 3.2 2.0 - 4.0 MG/DL Specimen Performing Laboratory Blood [facility] [address] [place] [id number] * MAGNESIUM (04/27/2017 5:24 AM) Component Value Ref Range Magnesium 1.9 1.6 - 2.6 mg/dL Specimen Performing Laboratory Blood [facility] [address] [place] [id number] * COMPREHENSIVE METABOLIC PANEL (04/27/2017 5:24 AM) Component Value Ref Range Sodium 138 137 - 147 MMOL/L Potassium 3.8 3.5 - 5.1 MMOL/L Chloride 110 98 - 110 MMOL/L Glucose 175 (H) 70 - 100 MG/DL Blood Urea Nitrogen 36 (H) 7 - 25 MG/DL Creatinine 1.05 (H) 0.4 - 1.00 MG/DL Calcium 8.1 (L) 8.5 - 10.6 MG/DL Total Protein 5.6 (L) 6.0 - 8.0 G/DL Total Bilirubin 0.6 0.3 - 1.2 MG/DL Albumin 2.4 (L) 3.5 - 5.0 G/DL Alk Phosphatase 32 25 - 110 U/L AST (SGOT) 13 7 - 40 U/L CO2 23 21 - 30 MMOL/L ALT (SGPT) 5 (L) 7 - 56 U/L Anion Gap 5 3 - 12 eGFR Non 54 (L) >60 mL/min Comment: The eGFR is [...] questions. Specimen Performing Laboratory Blood MAIN LAB [address] [place] [address] * LDH-LACTATE DEHYDROGENASE (04/27/2017 5:24 AM) Component Value Ref Range Lactate Dehydrogenase 628 (H) 100 - 210 U/L Specimen Performing Laboratory Blood MAIN LAB [address] [place] [address] * POC GLUCOSE (04/26/2017 9:26 PM) Component Value Ref Range Glucose, POC 234 (H) 70 - 100 MG/DL Specimen Performing Laboratory MAIN LAB [address] [id number] * CBC AND DIFF (04/26/2017 7:53 PM) Component Value Ref Range White Blood Cells 35.5 (H) 4.5 - 11.0 K/UL RBC 2.31 (L) 4.0 - 5.0 M/UL Hemoglobin 7.5 (L) 12.0 - 15.0 GM/DL Hematocrit 21.6 (L) 36 - 45 % MCV 93.5 80 - 100 FL MCH 32.4 26 - 34 PG MCHC 34.7 32.0 - 36.0 G/DL RDW 25.1 (H) 11 - 15 % Platelet Count 14 (LL) 150 - 400 K/UL Comment: Critical Result PLT:Called to TERI Barbour at: 20:12:42 by: DARWIN Read back by: TERI Barbour MPV 10.7 7 - 11 FL Segmented Neutrophils 14 (L) 41 - 77 % Lymphocytes 22 (L) 24 - 44 % Monocytes 31 (H) 4 - 12 % Myelocyte 3 % Other Cells 30Comment: OTHERS ARE BLASTS AND PROMONOCYTES % ANISO PRESENT Ovalocyte PRESENT Platelet Estimate MKD DEC Absolute Neutrophil Count 4.97 1.8 - 7.0 K/UL Manual Specimen Performing Laboratory Blood MAIN LAB [address] [place] [address] * BASIC METABOLIC PANEL (04/26/2017 7:53 PM) Component Value Ref Range Sodium 137 137 - 147 MMOL/L Potassium 3.7 3.5 - 5.1 MMOL/L Chloride 109 98 - 110 MMOL/L CO2 21 21 - 30 MMOL/L Anion Gap 7 3 - 12 Glucose 233 (H) 70 - 100 MG/DL Blood Urea Nitrogen 38 (H) 7 - 25 MG/DL Creatinine 1.18 (H) 0.4 - 1.00 MG/DL Calcium 8.0 (L) 8.5 - 10.6 MG/DL eGFR Non 47 (L) >60 mL/min Comment: The eGFR is not validated for use in drug dosing adjustments. Continue to use estimated creatinine clearance per dosing reference text. Please contact the Clinical Pharmacist for questions. eGFR 57 (L) >60 mL/min Comment: The eGFR is not validated for use in drug dosing adjustments. Continue to use estimated creatinine clearance per dosing reference text. Please contact the Clinical Pharmacist for questions. Specimen Performing Laboratory Blood MAIN LAB [address] [place] [address] * PROTIME INR (PT) (04/26/2017 7:53 PM) Component Value Ref Range INR 1.6 (H) 0.8 - 1.2 Specimen Performing Laboratory Blood MAIN LAB [address] [place] [address] * PTT (APTT) (04/26/2017 7:53 PM) Component Value Ref Range APTT 27.0Comment: NOTE NEW REFERENCE RANGES 21.0 - 39.0 SEC Specimen Performing Laboratory Blood MAIN LAB [address] [place] [address] * URIC ACID (04/26/2017 7:53 PM) Component Value Ref Range Uric Acid 4.7 2.0 - 7.0 MG/DL Specimen Performing Laboratory Blood MAIN LAB [address] [place] [address] * FIBRINOGEN (04/26/2017 7:53 PM) Component Value Ref Range Fibrinogen 433 (H) 200 - 400 MG/DL Specimen Performing Laboratory Blood [facility] [address] [place] [address] * PHOSPHORUS (04/26/2017 7:53 PM) Component Value Ref Range Phosphorus 3.2 2.0 - 4.0 MG/DL Specimen Performing Laboratory Blood [facility] [address] [place] [address] * POC GLUCOSE (04/26/2017 7:06 PM) Component Value Ref Range Glucose, POC 203 (H) 70 - 100 MG/DL Specimen Performing Laboratory [facility] [address] [place] [address] * BONE MARROW (04/26/2017 5:33 PM) Component Value Ref Range PATHOLOGY REPORT [email or web address] Sonali Snow MD, PhD, Director of Anatomic Pathology Department of Pathology and Laboratory Medicine [address] [place] [id number] Surgical Pathology Office: [phone] SURGICAL PATHOLOGY REPORT NAME: GISELLE MORAES Emma SURG PATH #: [id number] MR #: [id number] ALT ID #: LOCATION: 63 DATE OF PROCEDURE: 04/26/2017 AGE: 56 SEX: F DATE RECEIVED: 04/26/2017 : 1960 TIME RECEIVED: 17:33 PHYSICIAN: MEGHA CRAIG DATE OF REPORT: 04/27/2017 COPY TO: DATE OF PRINTIN04/27/2017 ################################################## ###################### Final Diagnosis: Bone marrow, left iliac crest, aspirate, biopsy, clot, and touch prep: Acute Myeloid leukemia with monocytic features, involving a hypercellular bone marrow (90%) with decreased trilineage hematopoiesis and 77% blasts. Peripheral blood smear: Normocytic anemia, severe thrombocytopenia and 43% blasts plus 31% promonocytes and monocytes. Comment: The findings are compatible with Acute Myeloid Leukemia, which morphologically is compatible with Acute Monocytic/monoblastic leukemia (RITA M5), however, we did not identify monocytic markers by the flow cytometry phenotypic study . Attestation: By this signature, I attest that I have personally formulated the final interpretation expressed in this report and that the above diagnosis is based upon my examination of the slides and/or other material indicated in this report. Linnette Carmona MD, PhD Fellow lkr/04/27/2017 Material Received: A: left bone marrow clot B: left bone marrow biopsy History: 56-year-old female with a history of presentation with new diagnosis of AML. Gross Description: A. Received in Zinc formalin labeled "left bone marrow clot" is a 5.0 x 0.2 x 0.3 cm aggregate of friable red-brown clotted blood elements. The specimen is entirely submitted in cassettes A1 and A2. (lmt) B. Received in Zinc formalin labeled "left bone marrow biopsy" is a 1.0 cm in length and 0.2 cm in diameter cylindrical, yellow-marshall firm piece of tissue. The specimen is submitted in cassette B1 after decalcification. (lmt) 04/26/2017 Microscopic Description: CBC Data: HGB 6.9 (g/dL); RBC 2.06 (m/uL); MCV 98.5 (FL); RDW 24.7 (%); WBC 49.5 (k/uL); PLT 21 (k/uL). Blood Smear Diff (%): Segmented neutrophils 8; band neutrophils 4; lymphocytes 9; monocytes 31; metamyelocytes 2; myelocytes 3; blasts 43 Blood Smear Morphology: RBC: Normocytic anemia with anisocytosis WBC: Left shifted granulocytes, absolute monocytosis and 43% circulating blasts Platelets: Severe thrombocytopenia Bone Marrow Aspirate/Touch Prep Morphology: Aspirate Adequacy: Adequate Touch Prep Adequacy: Adequate Cellularity: Increased Megakaryocytes: Decreased Blasts: Increased Erythroid: Decreased Granulocytes: Decreased Lymphocytes: Decreased Plasma Cells: Normal Bone Marrow Differential Cell Count (%): Blasts: 77 Promyelocytes: 1 Myelocytes: 2 Metamyelocytes: 2 Segs/Bands: 1 Eosinophils: <1 Erythroid: 4 Monocytes: 5 Lymphocytes: 5 Plasma cells: 2 M:E ratio: 17.4 Bone Marrow Core Biopsy: Adequacy: Adequate Length: 1.0 cm Cellularity: 90% Megakaryocytes: Decreased Hematopoiesis: Sheets of immature cells present in a diffuse pattern Bone Marrow Cell Clot: Adequacy: Adequate Cellularity: 90% Pertinent Findings: Resembles core biopsy Additional Stains: Iron Stain: Iron stain on the aspirate smear shows normal storage iron, decreased sideroblast iron, and no ring sideroblasts. Immunohistochemistry: Not Performed Chromogenic In Situ Hybridization: Not Performed Other Special Stains: Not Performed Ancillary Studies: Flow Cytometry: Performed, See separate report ([id number]), which reveals acute myeloid leukemia (38% blasts) Cytogenetics: Performed, See separate report Fluorescence In Situ Hybridization: Not Performed Molecular Genetics: Performed, See separate report Preliminary Diagnosis: Not Performed If immunohistochemical stains and/or in situ hybridization are cited in this report, the performance characteristics were determined by the Department of Pathology and Laboratory Medicine of the [facility] ([employer] [facility]) in compliance with CLIA'88 regulations. [...] of Pathology and Laboratory Medicine of the [facility]. It has not been cleared or approved by the FDA. The FDA has determined that such clearance or approval is not necessary. Specimen Performing Laboratory [facility] RESULTS * HEME PANEL NGS 65 BLD OR BM (04/26/2017 5:13 PM) Component Value Ref Range Heme Panel NGS 65 BLD or SEE COAL CHEMIST FOR REPORT Bone Marrow Specimen Performing Laboratory REFERENCE LAB * CHROMOSOMES BONE MARROW (04/26/2017 5:13 PM) Component Value Ref Range Chromosomes Bone Marrow SEE COAL CHEMIST FOR REPORT Specimen Performing Laboratory Bone Marrow [facility] MAIN [facility] [address] [place] [address] * IR BONE MARROW BIOPSY (04/26/2017 4:51 PM) Specimen Performing Laboratory [facility] RESULTS Impressions I was personally responsible for the administration of moderate sedation services during the procedure performed and I confirm requirements described in CPT section on moderate sedation were followed, including the use of an independent trained observer who had no other duties during the procedure. The total supervised sedation time was 10 minutes.See nursing log for complete details; the drugs utilized were: Versed and fentanyl 1. Successful image guided bone marrow aspiration and core biopsy. I, Deonte Lockwood M.D, the attending radiologist, was present for the critical and carrizales portions of the procedure with a midlevel, resident, and/or fellow participating.Overlapping portions were non carrizales and I was immediately available.I interpret the critical and carrizales portion of this procedure to have been needle access. @TT Approved by Tomer Camp M.D. on 04/26/2017 5:25 PM By my electronic signature, I attest that I have personally reviewed the images for this examination and formulated the interpretations and opinions expressed in this report Finalized by Deonte Lockwood M.D. on 04/26/2017 5:35 PM. Dictated by Tomer Camp M.D. on 04/26/2017 5:24 PM. Narrative FLUOROSCOPIC GUIDED BONE MARROW ASPIRATION AND CORE BIOPSY CLINICAL HISTORY: Leukocytosis MEDICATIONS:Versed: 3 mg IV; Fentanyl: 200 mcg IV; 2% lidocaine: 20 mL TECHNIQUE/FINDINGS: A brief history and physical was obtained and appropriate imaging was reviewed. An explanation of the procedure including risks and benefits was provided and informed written consent was then obtained. The patient was placed in prone position on the table.The entry site was then prepped and draped in the usual sterile fashion.Limited fluoroscopic imaging of the pelvis was performed to identify the left posterior iliac crest.The patient's skin was marked with ink at the appropriate entry site.Lidocaine was then injected in the subcutaneous tissues at this site down to the periosteum.A bone marrow aspiration introducer needle was then advanced into the posterior iliac crest. Multiple aspirations were obtained including a 1 mL (no anticoagulation) sent on slide for morphology and a 6 mL heparinized syringe for flow cytometry and cytogenetics.An additional aspirate of 4 mL EDTA was sent for molecular evaluation. A bone marrow core biopsy was then obtained using a core introducer and needle and submitted in formalin for surgical pathology following touch preparation. Hemostasis was achieved with manual compression, there is no evidence of post biopsy complication.The patient tolerated the procedure well and left the department in stable condition. Procedure Note Interface, Radiant Results - 04/26/2017 5:38 PM CDT FLUOROSCOPIC GUIDED BONE MARROW ASPIRATION AND CORE BIOPSY CLINICAL HISTORY: Leukocytosis MEDICATIONS: Versed: 3 mg IV; Fentanyl: 200 mcg IV; 2% lidocaine: 20 mL TECHNIQUE/FINDINGS: A brief history and physical was [...] was then advanced into the posterior iliac crest. Multiple aspirations were obtained including a 1 mL (no anticoagulation) sent on slide for morphology and a 6 mL heparinized syringe for flow cytometry and cytogenetics. An additional aspirate of 4 mL EDTA was sent for molecular evaluation. A bone marrow core biopsy was then obtained using a core introducer and needle and submitted in formalin for surgical pathology following touch preparation. Hemostasis was achieved with manual compression, there is no evidence of post biopsy complication. The patient tolerated the procedure well and left the department in stable condition. IMPRESSION I was personally responsible for the administration of moderate sedation services during the procedure performed and I confirm requirements described in CPT section on moderate sedation were followed, including the use of an independent trained observer who had no other duties during the procedure. The total supervised sedation time was 10 minutes. See nursing log for complete details; the drugs utilized were: Versed and fentanyl 1. Successful image guided bone marrow aspiration and core biopsy. IDeonte M.D, the attending radiologist, was present for the critical and carrizales portions of the procedure with a midlevel, resident, and/or fellow participating. Overlapping portions were non carrizales and I was immediately available. I interpret the critical and carrizales portion of this procedure to have been needle access. @TT Approved by Tomer Camp M.D. on 04/26/2017 5:25 PM By my electronic signature, I attest that I have personally reviewed the images for this examination and formulated the interpretations and opinions expressed in this report Finalized by Deonte Lockwood M.D. on 04/26/2017 5:35 PM. Dictated by Tomer Camp M.D. on 04/26/2017 5:24 PM. * BNP (B-TYPE NATRIURETIC PEPTI) (04/26/2017 11:57 AM) Component Value Ref Range B Type Natriuretic 168.0 (H) 0 - 100 PG/ML Peptide Specimen Performing Laboratory Blood MAIN LAB [address] [place] [address] * PROCALCITONIN (04/26/2017 11:57 AM) Component Value Ref Range Procalcitonin 0.51 (H) <0.10 NG/ML Specimen Performing Laboratory Blood MAIN LAB [address] [place] [address] * CBC AND DIFF (04/26/2017 11:57 AM) Component Value Ref Range White Blood Cells 51.3 (HH) 4.5 - 11.0 K/UL Comment: Critical Result WBC:Called to IRENA Barbour at: 12:38:03 by: FELIPE Read back by: IRENA Barbour RBC 1.91 (L) 4.0 - 5.0 M/UL Hemoglobin 6.2 (L) 12.0 - 15.0 GM/DL Hematocrit 17.7 (L) 36 - 45 % MCV 92.7 80 - 100 FL MCH 32.2 26 - 34 PG MCHC 34.8 32.0 - 36.0 G/DL RDW 24.8 (H) 11 - 15 % Platelet Count 18 (LL) 150 - 400 K/UL Comment: Critical Result PLT:Called to IERNA Barbour at: 12:38:03 by: FELIPE Read back by: IRENA Barbour MPV 10.2 7 - 11 FL Segmented Neutrophils 11 (L) 41 - 77 % Lymphocytes 12 (L) 24 - 44 % Monocytes 33 (H) 4 - 12 % Metamyelocyte 1 % Blast 43 % ANISO PRESENT POIK PRESENT POLY PRESENT Platelet Estimate MKD DEC Absolute Neutrophil Count 5.64 1.8 - 7.0 K/UL Manual Specimen Performing Laboratory Blood MAIN LAB [address] [place] [address] * BASIC METABOLIC PANEL (04/26/2017 11:57 AM) Component Value Ref Range Sodium 136 (L) 137 - 147 MMOL/L Potassium 3.9 3.5 - 5.1 MMOL/L Chloride 109 98 - 110 MMOL/L CO2 22 21 - 30 MMOL/L Anion Gap 5 3 - 12 Glucose 168 (H) 70 - 100 MG/DL Blood Urea Nitrogen 41 (H) 7 - 25 MG/DL Creatinine 1.32 (H) 0.4 - 1.00 MG/DL Calcium 7.9 (L) 8.5 - 10.6 MG/DL eGFR Non 41 (L) >60 mL/min Comment: The eGFR is not validated for use in drug dosing adjustments. Continue to use estimated creatinine clearance per dosing reference text. Please contact the Clinical Pharmacist for questions. eGFR 50 (L) >60 mL/min Comment: The eGFR is not validated for use in drug dosing adjustments. Continue to use estimated creatinine clearance per dosing reference text. Please contact the Clinical Pharmacist for questions. Specimen Performing Laboratory Blood [facility] MAIN [facility] [address] [place] [address] * PROTIME INR (PT) (04/26/2017 11:57 AM) Component Value Ref Range INR 1.6 (H) 0.8 - 1.2 Specimen Performing Laboratory Blood MAIN LAB [address] [place], [place] [id number] * PTT (APTT) (04/26/2017 11:57 AM) Component Value Ref Range APTT 28.5Comment: NOTE NEW REFERENCE RANGES 21.0 - 39.0 SEC Specimen Performing Laboratory Blood [facility] MAIN LAB [address] [place] [address] * URIC ACID (04/26/2017 11:57 AM) Component Value Ref Range Uric Acid 4.7 2.0 - 7.0 MG/DL Specimen Performing Laboratory Blood [facility] MAIN LAB [address] [place] [address] * FIBRINOGEN (04/26/2017 11:57 AM) Component Value Ref Range Fibrinogen 472 (H) 200 - 400 MG/DL Specimen Performing Laboratory Blood [facility] MAIN [facility] [address] [place] [address] * PHOSPHORUS (04/26/2017 11:57 AM) Component Value Ref Range Phosphorus 3.5 2.0 - 4.0 MG/DL Specimen Performing Laboratory Blood MAIN LAB [address] [place] [address] * POC GLUCOSE (04/26/2017 11:56 AM) Component Value Ref Range Glucose, POC 174 (H) 70 - 100 MG/DL Specimen Performing Laboratory MAIN LAB [address] [place] [address] * VRE SCREEN (04/26/2017 7:09 AM) Component Value Ref Range Battery Name VRE SCREEN Specimen Description PERIRECTAL SWAB Special Requests NONE Culture NO VRE ISOLATED Report Status FINAL 04/27/2017 Specimen Performing Laboratory Perirectal Swab [facility] [address] [place] [address] * POC GLUCOSE (04/26/2017 7:01 AM) Component Value Ref Range Glucose, POC 185 (H) 70 - 100 MG/DL Specimen Performing Laboratory [facility] [address] [place], [place] [id number] * CBC AND DIFF (04/26/2017 4:30 AM) Component Value Ref Range White Blood Cells 49.5 (H) 4.5 - 11.0 K/UL RBC 2.06 (L) 4.0 - 5.0 M/UL Hemoglobin 6.9 (L) 12.0 - 15.0 GM/DL Hematocrit 20.3 (L) 36 - 45 % MCV 98.5 80 - 100 FL MCH 33.3 26 - 34 PG MCHC 33.8 32.0 - 36.0 G/DL RDW 24.7 (H) 11 - 15 % Platelet Count 21 (LL) 150 - 400 K/UL Comment: Critical Result PLT:Called to JULIANE Baxter at: 05:33:17 by: MMCBRIDE Read back by: JULIANE Baxter MPV 9.8 7 - 11 FL Segmented Neutrophils 8 (L) 41 - 77 % Bands 4 0 - 10 % Lymphocytes 9 (L) 24 - 44 % Monocytes 31 (H) 4 - 12 % Myelocyte 3 % Other Cells 45Comment: OTHERS ARE BLASTS AND PROMONOCYTES % ANISO PRESENT Ovalocyte PRESENT Absolute Neutrophil Count 5.94 1.8 - 7.0 K/UL Manual Specimen Performing Laboratory Blood [facility] [address] [place], [place] [id number] * PROTIME INR (PT) (04/26/2017 4:30 AM) Component Value Ref Range INR 1.6 (H) 0.8 - 1.2 Specimen Performing Laboratory Blood MAIN LAB [address] [place], [place] [id number] * PTT (APTT) (04/26/2017 4:30 AM) Component Value Ref Range APTT 24.9Comment: NOTE NEW REFERENCE RANGES 21.0 - 39.0 SEC Specimen Performing Laboratory Blood MAIN LAB [address] [place], [place] [id number] * URIC ACID (04/26/2017 4:30 AM) Component Value Ref Range Uric Acid 4.8 2.0 - 7.0 MG/DL Specimen Performing Laboratory Blood MAIN LAB [address] [place], [place] [id number] * FIBRINOGEN (04/26/2017 4:30 AM) Component Value Ref Range Fibrinogen 482 (H) 200 - 400 MG/DL Specimen Performing Laboratory Blood MAIN LAB [address] [place], [place] [id number] * PHOSPHORUS (04/26/2017 4:30 AM) Component Value Ref Range Phosphorus 4.0 2.0 - 4.0 MG/DL Specimen Performing Laboratory Blood MAIN LAB [address] [place], [place] [id number] * MAGNESIUM (04/26/2017 4:30 AM) Component Value Ref Range Magnesium 2.0 1.6 - 2.6 mg/dL Specimen Performing Laboratory Blood MAIN LAB [address] [place] [address] * COMPREHENSIVE METABOLIC PANEL (04/26/2017 4:30 AM) Component Value Ref Range Sodium 136 (L) 137 - 147 MMOL/L Potassium 4.1 3.5 - 5.1 MMOL/L Chloride 107 98 - 110 MMOL/L Glucose 173 (H) 70 - 100 MG/DL Blood Urea Nitrogen 40 (H) 7 - 25 MG/DL Creatinine 1.50 (H) 0.4 - 1.00 MG/DL Calcium 8.0 (L) 8.5 - 10.6 MG/DL Total Protein 5.8 (L) 6.0 - 8.0 G/DL Total Bilirubin 0.6 0.3 - 1.2 MG/DL Albumin 2.4 (L) 3.5 - 5.0 G/DL Alk Phosphatase 36 25 - 110 U/L AST (SGOT) 15 7 - 40 U/L CO2 23 21 - 30 MMOL/L ALT (SGPT) 5 (L) 7 - 56 U/L Anion Gap 6 3 - 12 eGFR Non 36 (L) >60 mL/min Comment: The eGFR is not validated for use in drug dosing adjustments. Continue to use estimated creatinine clearance per dosing reference text. Please contact the Clinical Pharmacist for questions. eGFR 43 (L) >60 mL/min Comment: The eGFR is not validated for use in drug dosing adjustments. Continue to use estimated creatinine clearance per dosing reference text. Please contact the Clinical Pharmacist for questions. Specimen Performing Laboratory Blood MAIN LAB [address] [place] [address] * LDH-LACTATE DEHYDROGENASE (04/26/2017 4:30 AM) Component Value Ref Range Lactate Dehydrogenase 747 (H) 100 - 210 U/L Specimen Performing Laboratory Blood [facility] [address] [place] [address] * POC GLUCOSE (04/26/2017 4:28 AM) Component Value Ref Range Glucose, POC 194 (H) 70 - 100 MG/DL Specimen Performing Laboratory [facility] [address] [place] [address] * GRAM STAIN (04/26/2017 12:25 AM) Component Value Ref Range Battery Name GRAM STAIN Specimen Description SPUTUM Special Requests NONE Gram Stain LESS THAN 10/LPF NEUTROPHILS 10-25/LPF SQUAMOUS EPITHELIAL CELLS MANY MIXED BACTERIA Report Status FINAL 04/26/2017 Specimen Performing Laboratory Sputum [facility] [address] [place] [address] * CULTURE-RESP,LOWER W/SENSITIVITY (04/26/2017 12:25 AM) Component Value Ref Range Battery Name LOWER RESP CULTURE Specimen Description SPUTUM Special Requests NONE Direct Gram Stain LESS THAN 10/LPF NEUTROPHILS 10-25/LPF SQUAMOUS EPITHELIAL CELLS MANY MIXED BACTERIA Culture Light growth NORMAL OROPHARYNGEAL MACIE Report Status FINAL 04/28/2017 Specimen Performing Laboratory Sputum [facility] [address] [place] [id number] * IONIZED CALCIUM (04/25/2017 9:57 PM) Component Value Ref Range Ionized Calcium 1.08 1.0 - 1.3 MMOL/L Specimen Performing Laboratory Blood [facility] [address] [place], [place] [id number] * POC GLUCOSE (04/25/2017 7:58 PM) Component Value Ref Range Glucose, POC 286 (H) 70 - 100 MG/DL Specimen Performing Laboratory MAIN LAB [address] [place] [address] * CBC AND DIFF (04/25/2017 7:43 PM) Component Value Ref Range White Blood Cells 56.3 (HH) 4.5 - 11.0 K/UL Comment: Critical Result WBC:Called to SUELLEN Samson at: 20:39:34 by: LANEY Read back by: SUELLEN Samson RBC 2.18 (L) 4.0 - 5.0 M/UL Hemoglobin 7.2 (L) 12.0 - 15.0 GM/DL Hematocrit 21.2 (L) 36 - 45 % MCV 97.3 80 - 100 FL MCH 33.0 26 - 34 PG MCHC 34.0 32.0 - 36.0 G/DL RDW 24.0 (H) 11 - 15 % Platelet Count 25 (L) 150 - 400 K/UL MPV 10.6 7 - 11 FL Nucleated RBCs 2 K/UL Segmented Neutrophils 12 (L) 41 - 77 % Lymphocytes 22 (L) 24 - 44 % Monocytes 19 (H) 4 - 12 % Myelocyte 1 % Other Cells 46Comment: OTHERS ARE BLASTS AND PROMONOCYTES. % ANISO PRESENT Ovalocyte PRESENT Platelet Estimate MKD DEC Absolute Neutrophil Count 6.76 1.8 - 7.0 K/UL Manual Specimen Performing Laboratory Blood MAIN LAB [address] [place] [address] * BASIC METABOLIC PANEL (04/25/2017 7:43 PM) Component Value Ref Range Sodium 134 (L) 137 - 147 MMOL/L Potassium 4.0 3.5 - 5.1 MMOL/L Chloride 106 98 - 110 MMOL/L CO2 22 21 - 30 MMOL/L Anion Gap 6 3 - 12 Glucose 275 (H) 70 - 100 MG/DL Blood Urea Nitrogen 39 (H) 7 - 25 MG/DL Creatinine 1.75 (H) 0.4 - 1.00 MG/DL Calcium 7.8 (L) 8.5 - 10.6 MG/DL eGFR Non 30 (L) >60 mL/min Comment: The eGFR is not validated for use in drug dosing adjustments. Continue to use estimated creatinine clearance per dosing reference text. Please contact the Clinical Pharmacist for questions. eGFR 36 (L) >60 mL/min Comment: The eGFR is not validated for use in drug dosing adjustments. Continue to use estimated creatinine clearance per dosing reference text. Please contact the Clinical Pharmacist for questions. Specimen Performing Laboratory Blood MAIN LAB [address] [place] [address] * PROTIME INR (PT) (04/25/2017 7:43 PM) Component Value Ref Range INR 1.8 (H) 0.8 - 1.2 Specimen Performing Laboratory Blood MAIN LAB [address] [place] [id number] * PTT (APTT) (04/25/2017 7:43 PM) Component Value Ref Range APTT 29.7Comment: NOTE NEW REFERENCE RANGES 21.0 - 39.0 SEC Specimen Performing Laboratory Blood MAIN LAB [address] [place] [address] * URIC ACID (04/25/2017 7:43 PM) Component Value Ref Range Uric Acid 4.5 2.0 - 7.0 MG/DL Specimen Performing Laboratory Blood MAIN LAB [address] [place] [address] 62354 * FIBRINOGEN (04/25/2017 7:43 PM) Component Value Ref Range Fibrinogen 493 (H) 200 - 400 MG/DL Specimen Performing Laboratory Blood MAIN LAB [address] [place] [address] 73225 * PHOSPHORUS (04/25/2017 7:43 PM) Component Value Ref Range Phosphorus 4.3 (H) 2.0 - 4.0 MG/DL Specimen Performing Laboratory Blood MAIN LAB [address] [place] [address] 89204 * FE STAIN (04/25/2017 5:13 PM) Component Value Ref Range Bone Marrow FE SEE PATHOLOGY REPORT Specimen Performing Laboratory Bone Marrow MAIN LAB [address] [place] [address] 14062 * POC GLUCOSE (04/25/2017 4:16 PM) Component Value Ref Range Glucose, POC 203 (H) 70 - 100 MG/DL Specimen Performing Laboratory MAIN LAB [address] [place] [address] 27779 * LACTIC ACID (BG - RAPID LACTATE) (04/25/2017 2:35 PM) Component Value Ref Range Lactic Acid,BG 0.7 0.5 - 2.0 MMOL/L Specimen Performing Laboratory Blood MAIN LAB [address] [place] [address] 53233 * IR CENTRAL VENOUS CATHETER (04/25/2017 2:15 [...] 2 mg IV; Fentanyl: 100 mcg IV HANDS PARTER: Jass Rollins MD DEVICE: 6 Faroese 24.5 cm triple-lumen central venous catheter TOTAL [...] confirmed by aspiration of blood. A 0.018 [place] wire was was advanced into the SVC. [...] 2 mg IV; Fentanyl: 100 mcg IV HANDS PARTER: Jass Rollins MD DEVICE: 6 [place] 24.5 cm triple-lumen central venous catheter TOTAL [...] confirmed by aspiration of blood. A 0.018 [place] wire was was advanced into the SVC. [...] ng/mL DDU. Specimen Performing Laboratory MAIN LAB [address] [place] [address] 26727 * PROTIME INR (PT) (04/25/2017 12:55 PM) Component Value Ref Range INR 1.9 (H) 0.8 - 1.2 Specimen Performing Laboratory Blood [facility] [address] [place] [address] 01733 * PTT (APTT) (04/25/2017 12:55 PM) Component Value Ref Range APTT 30.8Comment: NOTE NEW REFERENCE RANGES 21.0 - 39.0 SEC Specimen Performing Laboratory Blood MAIN LAB [address] [place] [address] 51237 * CBC AND DIFF (04/25/2017 12:55 PM) Component Value Ref Range White Blood Cells 78.3 (HH) 4.5 - 11.0 K/UL Comment: Critical Result WBC:Called to WOFL Canchola at: 13:36:53 by: [email or web address] Read back by: WOLF Canchola RBC 2.36 (L) 4.0 - 5.0 M/UL Hemoglobin 7.8 (L) 12.0 - 15.0 GM/DL Hematocrit 22.7 (L) 36 - 45 % MCV 96.5 80 - 100 FL MCH 33.3 26 - 34 PG MCHC 34.5 32.0 - 36.0 G/DL RDW 24.3 (H) 11 - 15 % Platelet Count 30 (L) 150 - 400 K/UL MPV 10.3 7 - 11 FL Segmented Neutrophils 10 (L) 41 - 77 % Bands 1 0 - 10 % Lymphocytes 18 (L) 24 - 44 % Monocytes 12 4 - 12 % Myelocyte 2 % Other Cells 57Comment: OTHERS ARE BLASTS AND PROMONOCYTES. % POLY PRESENT Ovalocyte PRESENT Platelet Estimate MKD DEC Absolute Neutrophil Count 8.61 (H) 1.8 - 7.0 K/UL Manual Specimen Performing Laboratory Blood MAIN LAB [address] [place] [address] 91090 * URIC ACID (04/25/2017 12:55 PM) Component Value Ref Range Uric Acid 4.2 2.0 - 7.0 MG/DL Specimen Performing Laboratory Blood MAIN LAB [address] [place] [address] 27166 * FIBRINOGEN (04/25/2017 12:55 PM) Component Value Ref Range Fibrinogen 442 (H) 200 - 400 MG/DL Specimen Performing Laboratory Blood MAIN LAB [address] [place] [address] 40504 * PHOSPHORUS (04/25/2017 12:55 PM) Component Value Ref Range Phosphorus 3.7 2.0 - 4.0 MG/DL Specimen Performing Laboratory Blood MAIN LAB [address] [place] [address] 54772 * MAGNESIUM (04/25/2017 12:55 PM) Component Value Ref Range Magnesium 2.1 1.6 - 2.6 mg/dL Specimen Performing Laboratory Blood MAIN LAB [address] [place] [address] 68346 * BASIC METABOLIC PANEL (04/25/2017 12:55 PM) Component Value Ref Range Sodium 132 (L) 137 - 147 MMOL/L Potassium 4.5 3.5 - 5.1 MMOL/L Chloride 105 98 - 110 MMOL/L CO2 21 21 - 30 MMOL/L Anion Gap 6 3 - 12 Glucose 202 (H) 70 - 100 MG/DL Blood Urea Nitrogen 35 (H) 7 - 25 MG/DL Creatinine 1.75 (H) 0.4 - 1.00 MG/DL Calcium 8.0 (L) 8.5 - 10.6 MG/DL eGFR Non 30 (L) >60 mL/min Comment: The eGFR is not validated for use in drug dosing adjustments. Continue to use estimated creatinine clearance per dosing reference text. Please contact the Clinical Pharmacist for questions. eGFR 36 (L) >60 mL/min Comment: The eGFR is not validated for use in drug dosing adjustments. Continue to use estimated creatinine clearance per dosing reference text. Please contact the Clinical Pharmacist for questions. Specimen Performing Laboratory Blood [facility] MAIN LAB [address] [place] [address] * TRANSFUSE RBC'S NON-BLEEDING PT (04/25/2017 12:52 PM) Specimen Performing Laboratory Blood * TRANSFUSE RBC'S NON-BLEEDING PT (04/25/2017 12:52 PM) Specimen Performing Laboratory Blood * CHEST 2 VIEWS (04/25/2017 11:37 AM) [...] Alvares M.D. on 04/25/2017 11:38 AM. * POC GLUCOSE (04/25/2017 10:17 AM) Component Value Ref Range Glucose, POC 215 (H) 70 - 100 MG/DL Specimen Performing Laboratory MAIN LAB [address] [place] [address] 66214 * POC GLUCOSE (04/25/2017 8:21 AM) Component Value Ref Range Glucose, POC 226 (H) 70 - 100 MG/DL Specimen Performing Laboratory MAIN LAB [address] [place] [address] * FIBRINOGEN (04/25/2017 7:34 AM) Component Value Ref Range Fibrinogen 542 (H) 200 - 400 MG/DL Specimen Performing Laboratory Blood MAIN LAB [address] [place] [address] * CBC AND DIFF (04/25/2017 7:34 AM) Component Value Ref Range White Blood Cells 77.1 (HH) 4.5 - 11.0 K/UL Comment: Value noted, value unchanged Critical Result WBC:Called to CAROLYNN Arnold at: 08:25:27 by: [email or web address] Read back by: CAROLYNN Arnold RBC 2.01 (L) 4.0 - 5.0 M/UL Hemoglobin 6.9 (L) 12.0 - 15.0 GM/DL Hematocrit 19.9 (L) 36 - 45 % MCV 99.2 80 - 100 FL MCH 34.4 (H) 26 - 34 PG MCHC 34.7 32.0 - 36.0 G/DL RDW 25.2 (H) 11 - 15 % Platelet Count 28 (L) 150 - 400 K/UL MPV 9.6 7 - 11 FL Nucleated RBCs 1 K/UL Segmented Neutrophils 8 (L) 41 - 77 % Bands 5 0 - 10 % Lymphocytes 9 (L) 24 - 44 % Monocytes 13 (H) 4 - 12 % Metamyelocyte 1 % Myelocyte 4 % Other Cells 60Comment: OTHERS ARE BLASTS AND PROMONOCYTES. % POLY PRESENT Ovalocyte PRESENT Platelet Estimate MKD DEC Absolute Neutrophil Count 10.03 (H) 1.8 - 7.0 K/UL Manual Specimen Performing Laboratory Blood MAIN LAB [address] [place] [address] * COMPREHENSIVE METABOLIC PANEL (04/25/2017 7:34 AM) Component Value Ref Range Sodium 131 (L) 137 - 147 MMOL/L Potassium 4.7 3.5 - 5.1 MMOL/L Chloride 104 98 - 110 MMOL/L Glucose 225 (H) 70 - 100 MG/DL Blood Urea Nitrogen 32 (H) 7 - 25 MG/DL Creatinine 1.82 (H) 0.4 - 1.00 MG/DL Calcium 7.8 (L) 8.5 - 10.6 MG/DL Total Protein 5.8 (L) 6.0 - 8.0 G/DL Total Bilirubin 0.7 0.3 - 1.2 MG/DL Albumin 2.5 (L) 3.5 - 5.0 G/DL Alk Phosphatase 33 25 - 110 U/L AST (SGOT) 19 7 - 40 U/L CO2 20 (L) 21 - 30 MMOL/L ALT (SGPT) 6 (L) 7 - 56 U/L Anion Gap 7 3 - 12 eGFR Non 29 (L) >60 mL/min Comment: The eGFR is not validated for use in drug dosing adjustments. Continue to use estimated creatinine clearance per dosing reference text. Please contact the Clinical Pharmacist for questions. eGFR 35 (L) >60 mL/min Comment: The eGFR is not validated for use in drug dosing adjustments. Continue to use estimated creatinine clearance per dosing reference text. Please contact the Clinical Pharmacist for questions. Specimen Performing Laboratory Blood MAIN LAB [address] [place] [address] * MAGNESIUM (04/25/2017 7:34 AM) Component Value Ref Range Magnesium 2.1 1.6 - 2.6 mg/dL Specimen Performing Laboratory Blood MAIN LAB [address] [place] [address] * LDH-LACTATE DEHYDROGENASE (04/25/2017 7:34 AM) Component Value Ref Range Lactate Dehydrogenase 734 (H) 100 - 210 U/L Specimen Performing Laboratory Blood MAIN LAB [address] [place] [address] * POC GLUCOSE (04/25/2017 5:25 AM) Component Value Ref Range Glucose, POC 267 (H) 70 - 100 MG/DL Specimen Performing Laboratory MAIN LAB [address] [place] [address] 59082 * FIBRINOGEN (04/25/2017 5:15 AM) Component Value Ref Range Fibrinogen 601 (H) 200 - 400 MG/DL Specimen Performing Laboratory Blood [facility] [address] [place] [address] 97369 * PHOSPHORUS (04/25/2017 5:15 AM) Component Value Ref Range Phosphorus 3.9 2.0 - 4.0 MG/DL Specimen Performing Laboratory Blood [facility] [address] [place] [address] 80995 * PTT (APTT) (04/25/2017 5:15 AM) Component Value Ref Range APTT 28.8Comment: NOTE NEW REFERENCE RANGES 21.0 - 39.0 SEC Specimen Performing Laboratory Blood [facility] [address] [place] [address] 55819 * PROTIME INR (PT) (04/25/2017 5:15 AM) Component Value Ref Range INR 2.0 (H) 0.8 - 1.2 Specimen Performing Laboratory Blood [facility] [address] [place] [address] 71251 * URIC ACID (04/25/2017 5:15 AM) Component Value Ref Range Uric Acid 4.4 2.0 - 7.0 MG/DL Specimen Performing Laboratory Blood [facility] [address] [place] [address] 71870 * POC GLUCOSE (04/25/2017 1:43 AM) Component Value Ref Range Glucose, POC 295 (H) 70 - 100 MG/DL Specimen Performing Laboratory [facility] [address] [place] [address] 48945 * VRE SCREEN (04/25/2017 1:14 AM) Component Value Ref Range Battery Name VRE SCREEN Specimen Description PERIRECTAL SWAB Special Requests NONE Culture NO VRE ISOLATED Report Status FINAL 04/26/2017 Specimen Performing Laboratory Perirectal Swab [facility] [address] [place] [address] 45719 * POC GLUCOSE (04/24/2017 9:36 PM) Component Value Ref Range Glucose, POC 287 (H) 70 - 100 MG/DL Specimen Performing Laboratory [facility] [address] [place] [address] 75557 * CULTURE-URINE W/SENSITIVITY (04/24/2017 9:07 PM) Component Value Ref Range Battery Name URINE CULTURE Specimen Description URINE, CLEAN CATCH Special Requests NONE Culture <10,000 organisms/ml CONTAMINANT Report Status FINAL 04/26/2017 Specimen Performing Laboratory Urine - Urine,Clean Catch [facility] [address] [place] [address] 95774 * URINALYSIS, MICROSCOPIC (04/24/2017 9:07 PM) Component Value Ref Range WBCs,UA PACKED 0 - 2 /HPF RBCs,UA PACKED 0 - 3 /HPF MucousUA TRACE Bacteria,UA MODERATE (A) NEG-NEG WBC Clumps PRESENT Squamous Epithelial Cells 10-20 0 - 5 Specimen Performing Laboratory Urine [facility] [address] [place] [address] 25908 * URINALYSIS DIPSTICK (04/24/2017 9:07 PM) Component Value Ref Range Color,UA ENE Turbidity,UA 2+ (A) CLEAR-CLEAR Specific [place]-Urine 1.015 1.003 - 1.035 pH,UA 5.0 5.0 [...] false negative result. Specimen Performing Laboratory Urine [facility] [address] [place] [address] 98004 * PHOSPHORUS (04/24/2017 6:00 PM) Component Value Ref Range Phosphorus 3.4 2.0 - 4.0 MG/DL Specimen Performing Laboratory Blood [facility] [address] [place] [address] 20993 * PTT (APTT) (04/24/2017 6:00 PM) Component Value Ref Range APTT 30.2Comment: NOTE NEW REFERENCE RANGES 21.0 - 39.0 SEC Specimen Performing Laboratory Blood [facility] [address] [place] [address] 87651 * PROTIME INR (PT) (04/24/2017 6:00 PM) Component Value Ref Range INR 2.0 (H) 0.8 - 1.2 Specimen Performing Laboratory Blood MAIN LAB [address] [place] [address] 30312 * URIC ACID (04/24/2017 6:00 PM) Component Value Ref Range Uric Acid 4.4 2.0 - 7.0 MG/DL Specimen Performing Laboratory Blood [facility] [address] [place] [address] 71043 * BLOOD TYPE CONFIRMATION - ORDER ONLY IF REQUESTED BY LAB (04/24/2017 5:52 PM) Component Value Ref Range ABO/RH(D) A POS Specimen Performing Laboratory [facility] [address] [place] [address] 41013 * POC GLUCOSE (04/24/2017 5:37 PM) Component Value Ref Range Glucose, POC 123 (H) 70 - 100 MG/DL Specimen Performing Laboratory [facility] [address] [place] [address] 39140 * BONE MARROW BIOPSY IR (04/24/2017 5:13 PM) Component Value Ref Range Bone Marrow BX IR SEE PATHOLOGY REPORT Specimen Performing Laboratory MAIN LAB [address] [place] [address] 87773 * BONE MARROW ASP (04/24/2017 5:13 PM) Component Value Ref Range Bone Marrow Asp SEE PATHOLOGY REPORT Specimen Performing Laboratory Bone Marrow [facility] [address] [place] [address] 84269 * HEMOGLOBIN A1C (04/24/2017 4:00 PM) Component Value Ref Range Hemoglobin A1C 5.2 4.0 - 6.0 % Comment: The ADA recommends that most patients with type 1 and type 2 diabetes maintain an A1c level <7%. Specimen Performing Laboratory MAIN LAB [address] [place] [address] 87856 * MAGNESIUM (04/24/2017 4:00 PM) Component Value Ref Range Magnesium 1.9 1.6 - 2.6 mg/dL Specimen Performing Laboratory Blood [facility] [address] [place] [address] 98721 * FIBRINOGEN (04/24/2017 4:00 PM) Component Value Ref Range Fibrinogen 555 (H) 200 - 400 MG/DL Specimen Performing Laboratory Blood [facility] [address] [place], [place] [id number] * CBC AND DIFF (04/24/2017 4:00 PM) Component Value Ref Range White Blood Cells 65.6 (HH)Comment: Value noted, value unchanged 4.5 - 11.0 K/UL RBC 1.81 (L) 4.0 - 5.0 M/UL Hemoglobin 6.4 (L) 12.0 - 15.0 GM/DL Hematocrit 18.7 (L) 36 - 45 % MCV 103.4 (H) 80 - 100 FL MCH 35.4 (H) 26 - 34 PG MCHC 34.3 32.0 - 36.0 G/DL RDW 19.5 (H) 11 - 15 % Platelet Count 29 (L) 150 - 400 K/UL MPV 10.0 7 - 11 FL Nucleated RBCs 1 K/UL Segmented Neutrophils 13 (L) 41 - 77 % Bands 7 0 - 10 % Lymphocytes 7 (L) 24 - 44 % Monocytes 8 4 - 12 % Eosinophil 1 0 - 5 % Metamyelocyte 2 % Blast 62 % ANISO PRESENT POIK PRESENT POLY PRESENT Ovalocyte PRESENT Teardrop PRESENT Platelet Estimate MKD DEC Absolute Neutrophil Count 13.12 (H) 1.8 - 7.0 K/UL Manual Specimen Performing Laboratory Blood MAIN LAB [address] [place] [address] * POC GLUCOSE (04/24/2017 1:40 PM) Component Value Ref Range Glucose, POC 97 70 - 100 MG/DL Specimen Performing Laboratory [facility] [address] [place] [address] * POC GLUCOSE (04/24/2017 1:20 PM) Component Value Ref Range Glucose, POC 48 (LL) 70 - 100 MG/DL Specimen Performing Laboratory MAIN LAB [address] [place] [address] * POC GLUCOSE (04/24/2017 1:01 PM) Component Value Ref Range Glucose, POC 45 (LL) 70 - 100 MG/DL Specimen Performing Laboratory MAIN LAB [address] [place] [address] * 2-D + DOPPLER ECHOCARDIOGRAM (04/24/2017 12:38 [...] prior studies are available for comparison. * POC GLUCOSE (04/24/2017 8:27 AM) Component Value Ref Range Glucose, POC 90 70 - 100 MG/DL Specimen Performing Laboratory MAIN LAB [address] [place] [address] 81142 * LDH-LACTATE DEHYDROGENASE (04/24/2017 7:49 AM) Component Value Ref Range Lactate Dehydrogenase 548 (H) 100 - 210 U/L Specimen Performing Laboratory Blood [facility] [address] [place] [address] 38254 * POC GLUCOSE (04/24/2017 7:41 AM) Component Value Ref Range Glucose, POC 61 (L) 70 - 100 MG/DL Specimen Performing Laboratory MAIN LAB [address] [place] [address] 88314 * POC GLUCOSE (04/24/2017 5:50 AM) Component Value Ref Range Glucose, POC 103 (H) 70 - 100 MG/DL Specimen Performing Laboratory MAIN LAB [address] [place] [address] 52975 * POC GLUCOSE (04/24/2017 5:20 AM) Component Value Ref Range Glucose, POC 44 (LL) 70 - 100 MG/DL Specimen Performing Laboratory MAIN LAB [address] [place] [address] 99997 * POC GLUCOSE (04/24/2017 1:57 AM) Component Value Ref Range Glucose, POC 198 (H) 70 - 100 MG/DL Specimen Performing Laboratory MAIN LAB [address] [place] [address] * TYPE & CROSSMATCH (04/24/2017 1:55 AM) Component Value Ref Range Units Ordered 3 Crossmatch Expires 04/27/2017 Record Check 2ND TYPE REQUIRED ABO/RH(D) A POS Antibody Screen NEG Electronic Crossmatch YES Unit Number [id number] Blood Component Type RBC,ADSOL,LEUKO REDUCED,IRRADIATED Unit Division 0 Status OF Unit TRANSFUSED Transfusion Status OK TO TRANSFUSE Crossmatch Result COMPATIBLE,ELECTRONIC Unit Number [id number] Blood Component Type RBC,ADSOL,LEUKO REDUCED,IRRADIATED Unit Division 0 Status OF Unit TRANSFUSED Transfusion Status OK TO TRANSFUSE Crossmatch Result COMPATIBLE,ELECTRONIC Unit Number [id number] Blood Component Type RBC,ADSOL,LEUKO REDUCED,IRRADIATED Unit Division 0 Status OF Unit TRANSFUSED Transfusion Status OK TO TRANSFUSE Crossmatch Result COMPATIBLE,ELECTRONIC Specimen Performing Laboratory Blood MAIN LAB [address] [place] [address] * FLOW CYTOMETRY (04/24/2017 1:55 AM) Component Value Ref Range PATHOLOGY REPORT [email or web address] Doris Rodarte MD, Director of Clinical Laboratory Fede West MD, Director of Flow Cytometry Laboratory Department of Pathology and Laboratory Medicine [address] [place] [id number] Surgical Pathology Office: [phone] FLOW CYTOMETRY REPORT NAME: GISELLE MORAES Emma SURG PATH #: [id number] MR #: [id number] SPECIMEN CLASS: LC BILLING #: [id number] ALT ID #: LOCATION: 41 DATE OF PROCEDURE: 04/24/2017 AGE: 56 SEX: F DATE RECEIVED: 04/24/2017 : 1960 TIME RECEIVED: 09:11 PHYSICIAN: ALISHA GREGORIO DATE OF REPORT: 04/24/2017 COPY TO: DATE OF PRINTIN04/24/2017 Material Received: A: Blood Peripheral History: 56-year-old female ################################################## ###################### Final Diagnosis: Blood, flow cytometry: Acute myeloid leukemia, 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 They are positive for CD13, CD33, CD38, CD117, HLA-DR and cytoplasmic myeloperoxidase. They are negative for CD11b, CD11c, CD14, CD34, CD64, TdT, B- and T-cell markers. The findings are consistent with acute myeloid leukemia. Attestation: By this signature, I attest that I have personally formulated the final interpretation expressed in this report and that the above diagnosis is based upon my examination of the slides and/or other material indicated in this report. +++Electronically Signed Out By+++ pmw/04/24/2017 Interpreted by: Fede West MD 04/24/2017 ################################################## ###################### Lab Data: Flow Cytometry - Acute Leukemia Panel Gated on CD45 Dim region: Myeloid Associated Markers (% Positive Cells): UL91f=1; PU27z=9; CD13=93; CD14=1; CD15=4; CD33=90; CD64=2; HF634=19; cyMPO=69 B Cell Associated Markers (% Positive Cells): CD19=0; CD20=0; skFS54=90; tlOI50g=7 Salley=0; Lambda=0; Salley:Lambda ratio=n/a T Cell Associated Markers (% Positive Cells): CD1a=0; CD2=0; sCD3=0; cyCD3=0; CD4=0; CD5=0; CD7=13; CD8= 0 CD4:CD8 ratio=n/a Miscellaneous Markers (% Positive Cells): CD10=0; CD34=6; CD38=98; SU79=842; CD56=0; HLA-DR=77; nTdT=2 Gated on Monocyte region: Myeloid Associated Markers (% Positive Cells): CP79m=94; QK24t=00; CD13=50; CD14=85; CD15=14; CD33=95; CD64= 99; XH162=0; cyMPO=82 B Cell Associated Markers (% Positive Cells): CD19=0; CD20=0; ozIH50=31; wuMG36d=4 Salley=0; Lambda=0; Salley:Lambda ratio=n/a T Cell Associated Markers (% Positive Cells): CD1a=0; CD2=0; sCD3=0; cyCD3=0; CD4=85; CD5=0; CD7=0; CD8= 0 CD4:CD8 ratio=n/a Miscellaneous Markers (% Positive Cells): CD10=0; CD34=0; XA05=065; ND86=997; CD56=0; HLA-DR=96; nTdT= 0 Cell Viability (%): n/a Number of Cells Analyzed: 10,000 Total Number of Markers: 38 Summary of Marker Combinations: 56/33/34/13/15/45/DR; 14/117/34/64/11b/45/11c; K/L/34/10/19/45/38/20; 2/7/4/3/1a/45/5/8; nTdt/cy22/34/cy3/cy79a/45/cy MPO/19 This test was developed and its performance characteristics determined by the [facility] Flow Cytometry Laboratory. It has not been cleared or approved by the U.S. Food and Drug Administration (FDA). The FDA has determined that such clearance or approval is not necessary. Specimen Performing Laboratory LAB RESULTS * BLOOD BANK SAMPLE HOLD (04/24/2017 1:55 AM) Component Value Ref Range BB Sample hold IN LAB Specimen Performing Laboratory MAIN LAB [address] [place] [address] * CULTURE-BLOOD W/SENSITIVITY (04/24/2017 1:55 AM) Component Value Ref Range Battery Name BLOOD CULTURE Specimen Description BLOOD L AC Special Requests NONE Culture NO GROWTH 5 DAYS Report Status FINAL 04/30/2017 Specimen Performing Laboratory Blood MAIN LAB [address] [place] [address] * LEUKEMIA-LYMPHOMA PANEL BLOOD (04/24/2017 1:55 AM) Component Value Ref Range Leuk/Lymph Interpretation SEE PATHOLOGY REPORT Specimen/LLM BLOOD Specimen Performing Laboratory Blood [address] [address] * VITAMIN B12 (04/24/2017 1:55 AM) Component Value Ref Range Vitamin B12 3074 (H) 180 - 914 PG/ML Specimen Performing Laboratory Blood [address] [address] * FIBRINOGEN (04/24/2017 1:55 AM) Component Value Ref Range Fibrinogen 693 (H) 200 - 400 MG/DL Specimen Performing Laboratory Blood [address] [address] * PROTIME INR (PT) (04/24/2017 1:55 AM) Component Value Ref Range INR 2.4 (H) 0.8 - 1.2 Specimen Performing Laboratory Blood [place] [id number] * PTT (APTT) (04/24/2017 1:55 AM) Component Value Ref Range APTT 27.7Comment: NOTE NEW REFERENCE RANGES 21.0 - 39.0 SEC Specimen Performing Laboratory Blood [address] [address] * LDH-LACTATE DEHYDROGENASE (04/24/2017 1:55 AM) Component Value Ref Range Lactate Dehydrogenase 701 (H) 100 - 210 U/L Specimen Performing Laboratory Blood [address] [address] * URIC ACID (04/24/2017 1:55 AM) Component Value Ref Range Uric Acid 8.1 (H) 2.0 - 7.0 MG/DL Specimen Performing Laboratory Blood [address] [address] * PERIPHERAL SMEAR (04/24/2017 1:55 AM) Component Value Ref Range Peripheral Smear 26% BLASTS, PROMONOCYTE LIKE CELLS, AND MONOCYTOSIS. FLOW CYTOMETRY CONFIRMS DIAGNOSIS OF ACUTE MYELOID LEUKEMIA. Pathologist Signature INTERPRETED BY MITCH VALENZUELA M.D. By the PATH SIGNATURE ABOVE, I attest that I have personally formulated the final interpretation expressed in this report and that the above diagnosis is based upon my examination of the slides and/or other material indicated in this report. Specimen Performing Laboratory Blood [address] [address] * PHOSPHORUS (04/24/2017 1:55 AM) Component Value Ref Range Phosphorus 3.8 2.0 - 4.0 MG/DL Specimen Performing Laboratory Blood MAIN LAB [address] [place] [address] * MAGNESIUM (04/24/2017 1:55 AM) Component Value Ref Range Magnesium 2.1 1.6 - 2.6 mg/dL Specimen Performing Laboratory Blood MAIN LAB [address] [place] [address] * COMPREHENSIVE METABOLIC PANEL (04/24/2017 1:55 AM) Component Value Ref Range Sodium 135 (L) 137 - 147 MMOL/L Potassium 3.8 3.5 - 5.1 MMOL/L Chloride 103 98 - 110 MMOL/L Glucose 164 (H) 70 - 100 MG/DL Blood Urea Nitrogen 30 (H) 7 - 25 MG/DL Creatinine 1.57 (H) 0.4 - 1.00 MG/DL Calcium 8.2 (L) 8.5 - 10.6 MG/DL Total Protein 6.5 6.0 - 8.0 G/DL Total Bilirubin 0.5 0.3 - 1.2 MG/DL Albumin 2.8 (L) 3.5 - 5.0 G/DL Alk Phosphatase 35 25 - 110 U/L AST (SGOT) 27 7 - 40 U/L CO2 23 21 - 30 MMOL/L ALT (SGPT) 6 (L) 7 - 56 U/L Anion Gap 9 3 - 12 eGFR Non 34 (L) >60 mL/min Comment: The eGFR is not validated for use in drug dosing adjustments. Continue to use estimated creatinine clearance per dosing reference text. Please contact the Clinical Pharmacist for questions. eGFR 41 (L) >60 mL/min Comment: The eGFR is not validated for use in drug dosing adjustments. Continue to use estimated creatinine clearance per dosing reference text. Please contact the Clinical Pharmacist for questions. Specimen Performing Laboratory Blood MAIN LAB [address] [place] [address] * CBC AND DIFF (04/24/2017 1:55 AM) Component Value Ref Range White Blood Cells 58.2 (HH) 4.5 - 11.0 K/UL Comment: Critical Result WBC:Called to SHERIE Barrow at: 02:23:56 by: DIONICIO Read back by: SHERIE Barrow RBC 2.02 (L) 4.0 - 5.0 M/UL Hemoglobin 7.2 (L) 12.0 - 15.0 GM/DL Hematocrit 20.9 (L) 36 - 45 % MCV 103.4 (H) 80 - 100 FL MCH 35.6 (H) 26 - 34 PG MCHC 34.4 32.0 - 36.0 G/DL RDW 19.8 (H) 11 - 15 % Platelet Count 43 (L) 150 - 400 K/UL MPV 10.2 7 - 11 FL Segmented Neutrophils 11 (L) 41 - 77 % Lymphocytes 9 (L) 24 - 44 % Monocytes 9 4 - 12 % Metamyelocyte 3 % Myelocyte 1 % Other Cells 67 % Comment: OTHERS ARE BLASTS AND PROMONOCYTES CRITICAL VALUE CALLED TO AND READ BACK BY/TIME/TECH IRENA Talavera/IVAN ANISO PRESENT POIK PRESENT POLY PRESENT Ovalocyte PRESENT Smudge Cells PRESENT Platelet Estimate MKD DEC Absolute Neutrophil Count 6.40 1.8 - 7.0 K/UL Manual Specimen Performing Laboratory Blood [facility] [address] [place] [address] * POC GLUCOSE (04/24/2017 1:33 AM) Component Value Ref Range Glucose, POC 46 (LL) 70 - 100 MG/DL Specimen Performing Laboratory [facility] [address] [place] [address] * GENERAL RAD CHEST EXTERNAL IMAGING (04/23/2017) Narrative This order has been auto finalized and does not contain a result. in this encounter Visit Diagnoses Diagnosis Diagnosis unknown Other unknown and unspecified cause of morbidity or mortality Chronic atrial fibrillation (HCC) Atrial fibrillation Nonrheumatic aortic valve stenosis Aortic valve disorders Acute myeloid leukemia not having achieved remission (HCC) Type 2 diabetes mellitus with hyperglycemia, without long-term current use of insulin (HCC) Hypoglycemia associated with diabetes (HCC) Type II or unspecified type diabetes mellitus with other specified manifestations, not stated as uncontrolled Leukocytosis Leukocytosis, unspecified Hyperuricemia Other abnormal blood chemistry 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) Thrombocytopenia (HCC) Thrombocytopenia, unspecified SAVANAH (acute kidney injury) (HCC) Acute kidney failure, unspecified Acute cystitis without hematuria Acute cystitis Sepsis (HCC) Unspecified septicemia Coagulopathy (HCC) Other and unspecified coagulation defects Protein-calorie malnutrition (HCC) Unspecified protein-calorie malnutrition in this encounter Admitting Diagnoses Diagnosis AML Leukocytosis in this encounter Administered Medications Medication Order MAR Action Action Date Dose Rate Site acetaminophen (TYLENOL) tablet 650 mg Given 04/24/2017 650 mg 650 mg, Oral, EVERY 6 HOURS PRN, 20:20 CDT Starting 04/24/17 at 1958, Until Wed05/19/17 at 1620, Pain non-opioid: may be used alone or in combination with opioid analgesia, TOTAL ACETAMINOPHEN DOSE NOT TO EXCEED 4GM DAILY acyclovir (ZOVIRAX) tablet 400 mg Given 05/04/2017 400 mg 400 mg, Oral, TWICE DAILY, First dose on 09:40 CDT [place] 04/25/17 at 2100, Until Discontinued Given 05/04/2017 400 mg 20:57 CDT Given 05/05/2017 400 mg 08:18 CDT acyclovir (ZOVIRAX) tablet 800 mg Given 04/24/2017 800 mg 800 mg, Oral, TWICE DAILY, First dose on 09:19 CDT 04/24/17 at 0900, Until Discontinued Given 04/24/2017 800 mg 20:20 CDT Given 04/25/2017 800 mg 08:14 CDT acyclovir (ZOVIRAX) tablet 800 mg Given 05/18/2017 800 mg 800 mg, Oral, TWICE DAILY, First dose on 08:04 CDT 05/05/17 at 2100, Until Discontinued Given 05/18/2017 800 mg 20:28 CDT Given 05/19/2017 800 mg 08:10 CDT allopurinol (ZYLOPRIM) tablet 100 mg Given 04/24/2017 100 mg 100 mg, Oral, DAILY, First dose on Sat 04:42 CDT 04/24/17 at 0315, Until Discontinued Given 04/25/2017 100 mg 08:14 CDT allopurinol (ZYLOPRIM) tablet 300 mg Given 05/02/2017 300 mg 300 mg, Oral, DAILY, First dose on Mon 09:01 CDT 04/26/17 at 0900, Until Discontinued Given 05/03/2017 300 mg 09:14 CDT Given 05/04/2017 300 mg 09:40 CDT ALPRAZolam (XANAX) tablet 0.5 mg Given 04/25/2017 0.5 mg 0.5 mg, Oral, ONCE, 1 dose, [place] 04/25/17 21:53 CDT at 2030 ALPRAZolam (XANAX) tablet 0.5-1 mg Given 05/15/2017 0.5 mg 0.5-1 mg, Oral, TWICE DAILY PRN, 21:14 CDT Starting 04/27/17 at 0644, Until Wed05/19/17 at 1620, Anxiety PO Given 05/16/2017 0.5 mg 20:57 CDT Given 05/17/2017 0.5 mg 21:33 CDT ALPRAZolam (XANAX) tablet 1 mg Given 04/24/2017 1 mg 1 mg, Oral, TWICE DAILY PRN, Starting 09:19 CDT 04/24/17 at 0341, Until 04/25/17 at 1026, Anxiety PO alteplase (CATHFLO ACTIVASE) injection 2 Given 05/15/2017 2 mg mg 05:05 CDT 2 mg, Intra-catheter, NEEDED (SAND CONDITIONER FROM RX), Starting 04/24/17 at 0344, Until Wed05/19/17 at 1620, Other..., no blood return/difficulty flushing (per protocol) atenolol (TENORMIN) tablet 25 mg Given 04/24/2017 25 mg 25 mg, Oral, ONCE, 1 dose, 04/24/17 15:50 CDT at 1445, Hold pulse < 50, SBP < 95 atenolol (TENORMIN) tablet 25 mg Given 05/01/2017 25 mg 25 mg, Oral, DAILY, First dose on [place] 10:35 CDT 04/29/17 at 1315, Until Discontinued, Hold for heart rate < 60 bpm Given 05/02/2017 25 mg 09:01 CDT Given 05/03/2017 25 mg 10:12 CDT atenolol (TENORMIN) tablet 25 mg Given 05/17/2017 25 mg 25 mg, Oral, DAILY, First dose on Wed 08:03 CDT 05/05/17 at 1215, Until Discontinued, Hold for heart rate < 60 bpm Given 05/18/2017 25 mg 08:04 CDT Given 05/19/2017 25 mg 08:10 CDT atenolol (TENORMIN) tablet 50 mg Given 04/24/2017 50 mg 50 mg, Oral, TWICE DAILY, First dose on 09:19 CDT 04/24/17 at 0900, Until Discontinued, Hold for HR < 60 SBP < 100 atenolol (TENORMIN) tablet 75 mg Given 04/24/2017 75 mg 75 mg, Oral, TWICE DAILY, First dose on 20:20 CDT 04/24/17 at 2100, Until Discontinued, Hold for HR < 60 SBP < 100 Given 04/25/2017 75 mg 08:13 CDT cefepime (MAXIPIME) 2 g in dextrose 5% Given - New 05/18/2017 2 g 240 mL/hr (D5W) IVPB Bag 12:03 CDT 2 g, Intravenous, 120 mL, Administer over 30 Minutes, EVERY 8 HOURS, First dose on Wed05/17/17 at 2030, Until Discontinued Given - New Bag 05/18/2017 2 g 240 mL/hr 20:16 CDT Given - New Bag 05/19/2017 2 g 240 mL/hr 05:07 CDT cefepime (MAXIPIME) 2 g/100 ml Given 05/07/2017 2 g 200 mL/hr iso-osmotic IVPB 04:05 CDT 2 g, Intravenous, at 200 mL/hr, EVERY 12 HOURS, First dose on 04/24/17 at 0430, Until Discontinued Given 05/07/2017 2 g 200 mL/hr 16:52 CDT Given 05/08/2017 2 g 200 mL/hr 04:11 CDT cefepime (MAXIPIME) 2 g/100 ml Given 05/16/2017 2 g 200 mL/hr iso-osmotic IVPB 20:57 CDT 2 g, Intravenous, at 200 mL/hr, EVERY 8 HOURS, 28 doses, First dose on 05/08/17 at 1230, Last dose on Wed05/17/17 at 1230 Given 05/17/2017 2 g 200 mL/hr 04:15 CDT Given 05/17/2017 2 g 200 mL/hr 12:10 CDT cytarabine (CYTOSAR) 520 mg in sodium Given - New 04/28/2017 520 mg 41.7 mL/hr chloride 0.9% (NS) 1,000 mL IVPB(C100) Bag 14:04 CDT 520 mg (200 mg/m2 2.6 m2 Treatment plan recorded BSA), Intravenous, 1,000 mL, Administer over 24 Hours, ONCE, 1 dose, 04/28/17 at 1300, NURSING: To be administered by Chemotherapy Competency-validated nurse. NOTE: This is a HIGH ALERT Medication. SPECIAL TUBING REQUIRED Dose/Rate Verify 04/28/2017 520 mg 41.7 mL/hr 19:42 CDT Dose/Rate Verify 04/29/2017 520 mg 41.7 mL/hr 07:20 CDT cytarabine (CYTOSAR) 520 mg in sodium Given - New 04/29/2017 520 mg 41.7 mL/hr chloride 0.9% (NS) 1,000 mL IVPB(C100) Bag 15:27 CDT 520 mg (200 mg/m2 2.6 m2 Treatment plan recorded BSA), Intravenous, 1,000 mL, Administer over 24 Hours, ONCE, 1 dose, [place] 04/29/17 at 1300, NURSING: To be administered by Chemotherapy Competency-validated nurse. NOTE: This is a HIGH ALERT Medication. SPECIAL TUBING REQUIRED cytarabine (CYTOSAR) 520 mg in sodium Given - New 04/30/2017 520 mg 41.7 mL/hr chloride 0.9% (NS) 1,000 mL IVPB(C100) Bag 15:41 CDT 520 mg (200 mg/m2 2.6 m2 Treatment plan recorded BSA), Intravenous, 1,000 mL, Administer over 24 Hours, ONCE, 1 dose, Wed04/30/17 at 1300, NURSING: To be administered by Chemotherapy Competency-validated nurse. NOTE: This is a HIGH ALERT Medication. SPECIAL TUBING REQUIRED cytarabine (CYTOSAR) 520 mg in sodium Given - New 05/01/2017 520 mg 41.7 mL/hr chloride 0.9% (NS) 1,000 mL IVPB(C100) Bag 14:57 CDT 520 mg (200 mg/m2 2.6 m2 Treatment plan recorded BSA), Intravenous, 1,000 mL, Administer over 24 Hours, ONCE, 1 dose, [facility] 05/01/17 at 1300, NURSING: To be administered by Chemotherapy Competency-validated nurse. NOTE: This is a HIGH ALERT Medication. SPECIAL TUBING REQUIRED Dose/Rate Verify 05/01/2017 520 mg 41.7 mL/hr 19:15 CDT Dose/Rate Verify 05/02/2017 520 mg 41.7 mL/hr 07:45 CDT cytarabine (CYTOSAR) 520 mg in sodium Given - New 05/02/2017 520 mg 41.7 mL/hr chloride 0.9% (NS) 1,000 mL IVPB(C100) Bag 15:46 CDT 520 mg (200 mg/m2 2.6 m2 Treatment plan recorded BSA), Intravenous, 1,000 mL, Administer over 24 Hours, ONCE, 1 dose, [place] 05/02/17 at 1500, NURSING: To be administered by Chemotherapy Competency-validated nurse. NOTE: This is a HIGH ALERT Medication. SPECIAL TUBING REQUIRED Dose/Rate Verify 05/02/2017 520 mg 41.7 mL/hr 19:17 CDT cytarabine (CYTOSAR) 520 mg in sodium Given - New 05/03/2017 520 mg 41.7 mL/hr chloride 0.9% (NS) 1,000 mL IVPB(C100) Bag 15:55 CDT 520 mg (200 mg/m2 2.6 m2 Treatment plan recorded BSA), Intravenous, 1,000 mL, Administer over 24 Hours, ONCE, 1 dose, [facility] 05/03/17 at 1500, NURSING: To be administered by Chemotherapy Competency-validated nurse. NOTE: This is a HIGH ALERT Medication. SPECIAL TUBING REQUIRED Dose/Rate Verify 05/03/2017 520 mg 41.7 mL/hr 19:20 CDT Dose/Rate Verify 05/04/2017 520 mg 41.7 mL/hr 07:30 CDT cytarabine (CYTOSAR) 520 mg in sodium Given - New 05/04/2017 520 mg 41.7 mL/hr chloride 0.9% (NS) 1,000 mL IVPB(C100) Bag 15:13 CDT 520 mg (200 mg/m2 2.6 m2 Treatment plan recorded BSA), Intravenous, 1,000 mL, Administer over 24 Hours, ONCE, 1 dose, Wed05/04/17 at 1600, NURSING: To be administered by Chemotherapy Competency-validated nurse. NOTE: This is a HIGH ALERT Medication. SPECIAL TUBING REQUIRED cytarabine PF (CYTOSAR) injection (IT) Given 05/11/2017 100 mg 100 mg 10:23 CDT 100 mg, Intrathecal, ONCE, 1 dose, Wed05/11/17 at 0900, NURSING: To be administered by Chemotherapy Competency-validated nurse. NOTE: This is a HIGH ALERT Medication. SPECIAL TUBING REQUIRED DAPTOmycin (CUBICIN) 855 mg in sodium Given - New 04/25/2017 855 mg 234.2 mL/hr chloride 0.9% (NS) IVPB Bag 10:40 CDT 855 mg (rounded from 854.4 mg=6 mg/kg 142.4 kg), Intravenous, 117.1 mL, Administer over 30 Minutes, EVERY 24 HOURS, First dose on Wed04/25/17 at 1130, Until Discontinued DAUNOrubicin (CERUBIDINE) injection 156 Given 04/28/2017 156 mg mg 14:12 CDT 156 mg (60 mg/m2 2.6 m2 Treatment plan recorded BSA), Intravenous, ONCE, 1 dose, Wed04/28/17 at 1300, Give IV push over 5 minutes. PROTECT FROM LIGHT -- AVOID EXTRAVASATION -- NURSING: To be administered by Chemotherapy Competency-validated nurse NOTE: This is a HIGH ALERT Medication. DAUNOrubicin (CERUBIDINE) injection 156 Given 04/29/2017 156 mg mg 15:26 CDT 156 mg (60 mg/m2 2.6 m2 Treatment plan recorded BSA), Intravenous, ONCE, 1 dose, [place] 04/29/17 at 1300, Give IV push over 5 minutes. PROTECT FROM LIGHT -- AVOID EXTRAVASATION -- NURSING: To be administered by Chemotherapy Competency-validated nurse NOTE: This is a HIGH ALERT Medication. DAUNOrubicin (CERUBIDINE) injection 156 Given 04/30/2017 156 mg mg 13:08 CDT 156 mg (60 mg/m2 2.6 m2 Treatment plan recorded BSA), Intravenous, ONCE, 1 dose, Wed04/30/17 at 1300, Give IV push over 5 minutes. PROTECT FROM LIGHT -- AVOID EXTRAVASATION -- NURSING: To be administered by Chemotherapy Competency-validated nurse NOTE: This is a HIGH ALERT Medication. dexamethasone (DECADRON) tablet 12 mg Given 04/28/2017 12 mg 12 mg, Oral, EVERY 24 HOURS, 3 doses, 13:33 CDT First dose on Wed04/28/17 at 1230, Last dose on Wed04/30/17 at 1230, Give 30 minutes prior to chemotherapy. Given 04/29/2017 12 mg 12:41 CDT Given 04/30/2017 12 mg 12:26 CDT dextrose 5 % & 0.9% NaCl infusion Given - New 04/24/2017 100 mL/hr 1,000 mL, Intravenous, at 50 mL/hr, Bag 18:50 CDT CONTINUOUS, Starting 04/24/17 at 0145, Until 04/25/17 at 0513 Given - New Bag 04/24/2017 100 mL/hr 20:00 CDT Dose/Rate Change 04/24/2017 50 mL/hr 21:54 CDT DEXTROSE 50 % IN WATER (D50W) IV SOLP Given 04/24/2017 50 mL (Cabinet Override) 01:37 CDT NOW, 1 dose, 04/24/17 at 0115, Created by cabinet override NOTE: This is a HIGH ALERT Medication. DEXTROSE 50 % IN WATER (D50W) IV SOLP Given 04/24/2017 50 mL (Cabinet Override) 05:25 CDT NOW, 1 dose, 04/24/17 at 0530, Created by cabinet override NOTE: This is a HIGH ALERT Medication. diltiazem CD (cardIZEM CD) capsule 240 Given 05/17/2017 240 mg mg 08:03 CDT 240 mg, Oral, DAILY, First dose on 04/24/17 at 1215, Until Discontinued Given 05/18/2017 240 mg 08:04 CDT Given 05/19/2017 240 mg 08:10 CDT diphenhydrAMINE (BENADRYL) capsule 25 mg Given 05/07/2017 25 mg 25 mg, Oral, ONCE, 1 dose, 05/07/17 23:43 CDT at 2330 fentaNYL citrate PF (SUBLIMAZE) Given 04/25/2017 50 mcg injection 13:44 CDT INTRA-PROCEDURE MED, Starting 04/25/17 at 1344, Until Discontinued fentaNYL citrate PF (SUBLIMAZE) Given 04/26/2017 50 mcg injection 17:02 CDT INTRA-PROCEDURE MED, Starting 04/26/17 at 1702, Until Discontinued Given 04/26/2017 50 mcg 17:04 CDT Given 04/26/2017 50 mcg 17:06 CDT fentaNYL citrate PF (SUBLIMAZE) Given 05/11/2017 50 mcg injection 09:40 CDT INTRA-PROCEDURE MED, Starting Tu05/11/17 at 0940, Until Tu05/11/17 at 0940 fentaNYL citrate PF (SUBLIMAZE) Given 05/11/2017 50 mcg injection 09:43 CDT INTRA-PROCEDURE MED, Starting Tu05/11/17 at 0944, Until Tu05/11/17 at 0943 fentaNYL citrate PF (SUBLIMAZE) Given 05/11/2017 50 mcg injection 09:46 CDT INTRA-PROCEDURE MED, Starting Wed05/11/17 at 0946, Until Wed05/11/17 at 0946 fentaNYL citrate PF (SUBLIMAZE) Given 04/26/2017 50 mcg injection 25-50 mcg 16:56 CDT 25-50 mcg, Intravenous, ONCE, 1 dose, 04/26/17 at 1700 fentaNYL citrate PF (SUBLIMAZE) Given 04/25/2017 50 mcg injection 50 mcg 13:36 CDT 50 mcg, Intravenous, ONCE, 1 dose, 04/25/17 at 1315, Please give to patient as pre procedure anxiolytic. fentaNYL citrate PF (SUBLIMAZE) Given 05/11/2017 50 mcg injection 50 mcg 09:32 CDT 50 mcg, Intravenous, ONCE, 1 dose, 05/11/17 at 0900 furosemide (LASIX) injection 40 mg Given 04/25/2017 40 mg 40 mg, Intravenous, ONCE, 1 dose, Sun 14:42 CDT 04/25/17 at 1430, PROTECT FROM LIGHT furosemide (LASIX) injection 40 mg Given 04/29/2017 40 mg 40 mg, Intravenous, ONCE, 1 dose, [place] 13:26 CDT 04/29/17 at 1215, PROTECT FROM LIGHT furosemide (LASIX) injection 40 mg Given 04/30/2017 40 mg 40 mg, Intravenous, ONCE, 1 dose, Fri 11:24 CDT 04/30/17 at 1015, PROTECT FROM LIGHT furosemide (LASIX) injection 40 mg Given 05/06/2017 40 mg 40 mg, Intravenous, ONCE, 1 dose, [place] 12:02 CDT 05/06/17 at 1145, PROTECT FROM LIGHT furosemide (LASIX) injection 40 mg Given 05/07/2017 40 mg 40 mg, Intravenous, ONCE, 1 dose, Fri 09:45 CDT 05/07/17 at 0915, PROTECT FROM LIGHT furosemide (LASIX) injection 40 mg Given 05/10/2017 40 mg 40 mg, Intravenous, ONCE, 1 dose, Mon 11:59 CDT 05/10/17 at 1015, PROTECT FROM LIGHT furosemide (LASIX) injection 40 mg Given 05/16/2017 40 mg 40 mg, Intravenous, ONCE, 1 dose, Sun 12:56 CDT 05/16/17 at 1000, PROTECT FROM LIGHT furosemide (LASIX) injection 40 mg Given 05/18/2017 40 mg 40 mg, Intravenous, ONCE, 1 dose, Tue 12:19 CDT 05/18/17 at 1115, PROTECT FROM LIGHT furosemide (LASIX) injection 80 mg Given 05/01/2017 80 mg 80 mg, Intravenous, ONCE, 1 dose, Sat 11:51 CDT 05/01/17 at 1115, PROTECT FROM LIGHT furosemide (LASIX) injection 80 mg Given 05/02/2017 80 mg 80 mg, Intravenous, ONCE, 1 dose, Sun 15:02 CDT 05/02/17 at 1215, PROTECT FROM LIGHT furosemide (LASIX) injection 80 mg Given 05/04/2017 80 mg 80 mg, Intravenous, ONCE, 1 dose, Tue 12:05 CDT 05/04/17 at 1115, PROTECT FROM LIGHT furosemide (LASIX) tablet 40 mg Given 05/08/2017 40 mg 40 mg, Oral, ONCE, 1 dose, 05/08/17 10:55 CDT at 1000 hydroxyurea (HYDREA) capsule 1,000 mg Given 04/26/2017 1,000 mg 1,000 mg, Oral, TWICE DAILY, First dose 21:27 CDT on 04/25/17 at 1130, Until Discontinued, CYTOTOXIC Given 04/27/2017 1,000 mg 08:15 CDT Given 04/27/2017 1,000 mg 20:54 CDT hydrOXYzine (ATARAX) tablet 25 mg Given 05/08/2017 25 mg 25 mg, Oral, THREE TIMES DAILY PRN, 10:55 CDT Starting 05/08/17 at 0912, Until 05/19/17 at 1620, Itching PO insulin aspart (NOVOLOG FLEXPEN) Given 05/17/2017 2 Units Arm, Left injection PEN 0-14 Units 12:16 CDT 0-14 Units, Subcutaneous, BEFORE MEALS AND AT BEDTIME, First dose on 04/27/17 at 1815, Until Discontinued, -POC glucose 140-180mg/dL at , , administer 2 units insulin, at 21, 03* administer 0 units. -POC glucose 181-220mg/dL at , , administer 4 units insulin, at 21, 03* administer 2 units. -POC glucose 221-260mg/dL at , , administer 6 units insulin, at 21, 03* administer 4 units. -POC glucose 261-300mg/dL at administer 8 units insulin, at , * administer 6 units. -POC glucose 301-350mg/dL at administer 10 units insulin, at , * administer 8 units. -POC glucose 351-400mg/dL at administer 12 units insulin, at , * administer 10 units. -POC glucose >400mg/dL at administer 14 units insulin, at , * administer 12 units. *only if ordered 5x's daily For POCT glucose >350mg/dL give correction bolus and recheck POCT glucose in 2 hours. If POCT glucose at 2 hours >300mg/dL call physician for further orders. For patients who are not eating meals, continue to administer the appropriate correction factor. NOTE: This is a HIGH ALERT Medication. Given 05/18/2017 2 Units Arm, Left 09:02 CDT Given 05/19/2017 2 Units Abdominal 08:10 CDT Tissue insulin aspart (NOVOLOG FLEXPEN) Given 04/26/2017 2 Units Abdominal injection PEN 0-7 Units 21:26 CDT Tissue 0-7 Units, Subcutaneous, BEFORE MEALS AND AT BEDTIME, First dose on 04/25/17 at 0845, Until Discontinued, -POC glucose 140-180mg/dL at administer 1 unit insulin, at , * administer 0 units. -POC glucose 181-220mg/dL at administer 2 units insulin, at , * administer 1 unit. -POC glucose 221-260mg/dL at administer 3 units insulin, at , * administer 2 units. -POC glucose 261-300mg/dL at administer 4 units insulin, at , 03* administer 3 units. -POC glucose 301-350mg/dL at administer 5 units insulin, at , * administer 4 units. -POC glucose 351-400mg/dL at administer 6 units insulin, at , * administer 5 units. -POC glucose >400mg/dL at , administer 7 units insulin, at , * administer 6 units. *only if ordered 5x's daily For POCT glucose >350mg/dL give correction bolus and recheck POCT glucose in 2 hours. If POCT glucose at 2 hours >300mg/dL call physician for further orders. For patients who are not eating meals, continue to administer the appropriate correction factor. NOTE: This is a HIGH ALERT Medication. Given 04/27/2017 1 Units Arm, Left 08:10 CDT Given 04/27/2017 1 Units Arm, Left 12:23 CDT insulin aspart (NOVOLOG FLEXPEN) Given 05/01/2017 6 Units Abdominal injection PEN 6 Units 17:15 CDT Tissue 6 Units, Subcutaneous, THREE TIMES DAILY WITH MEALS, First dose on Wed04/30/17 at 0830, Until Discontinued, Hold if NPO for procedure, unable to eat, or if FSBS < 70 mg/dL Give at start of meal. NOTE: This is a HIGH ALERT Medication. Given 05/02/2017 6 Units Arm, Left 08:59 CDT Given 05/02/2017 6 Units Abdominal 16:00 CDT Tissue insulin aspart (NOVOLOG FLEXPEN) Given 05/10/2017 7 Units Abdominal injection PEN 7 Units 10:13 CDT Tissue 7 Units, Subcutaneous, THREE TIMES DAILY WITH MEALS, First dose on Wed05/03/17 at 0815, Until Discontinued, Hold if NPO for procedure, unable to eat, or if FSBS < 70 mg/dL Give at start of meal. NOTE: This is a HIGH ALERT Medication. Given 05/10/2017 7 Units Arm, Right 12:44 CDT Given 05/10/2017 7 Units Arm, Left 17:43 CDT insulin aspart (NOVOLOG FLEXPEN) Given 05/18/2017 7 Units Arm, Left injection PEN 7 Units 11:57 CDT 7 Units, Subcutaneous, THREE TIMES DAILY WITH MEALS, First dose on Wed05/14/17 at 1000, Until Discontinued, Hold if NPO for procedure, unable to eat, or if FSBS < 70 mg/dL Give at start of meal. NOTE: This is a HIGH ALERT Medication. Given 05/18/2017 7 Units Arm, Left 16:54 CDT Given 05/19/2017 7 Units Abdominal 08:10 CDT Tissue insulin aspart (NOVOLOG FLEXPEN) Given 05/13/2017 8 Units Abdominal injection PEN 8 Units 09:30 CDT Tissue 8 Units, Subcutaneous, THREE TIMES DAILY WITH MEALS, First dose on Wed05/11/17 at 0800, Until Discontinued, Hold if NPO for procedure, unable to eat, or if FSBS < 70 mg/dL Give at start of meal. NOTE: This is a HIGH ALERT Medication. Given 05/13/2017 8 Units Arm, Left 12:22 CDT Given 05/13/2017 8 Units Arm, Left 17:12 CDT insulin glargine (LANTUS SOLOSTAR) Given 04/29/2017 10 Units Abdomen: RLQ injection PEN 10 Units 16:42 CDT 10 Units, Subcutaneous, DAILY, First dose on [place] 04/29/17 at 1200, Until Discontinued, Continue if NPO. DO NOT mix with other insulins -- Do not mix with other insulins -- NOTE: This is a HIGH ALERT Medication. Given 04/30/2017 10 Units Abdominal 12:03 CDT Tissue insulin glargine (LANTUS SOLOSTAR) Given 05/16/2017 12 Units Arm, Left injection PEN 12 Units 12:56 CDT 12 Units, Subcutaneous, DAILY, First dose on 05/01/17 at 1200, Until Discontinued, Continue if NPO. DO NOT mix with other insulins -- Do not mix with other insulins -- NOTE: This is a HIGH ALERT Medication. Given 05/17/2017 12 Units Arm, Left 12:15 CDT Given 05/18/2017 12 Units Arm, Left 11:57 CDT lactated ringers infusion Given - New 04/27/2017 100 mL/hr 1,000 mL, Intravenous, at 100 mL/hr, Bag 08:12 CDT CONTINUOUS, Starting 04/26/17 at 0915, Until Wed04/28/17 at 1001 Given - New Bag 04/27/2017 100 mL/hr 18:54 CDT Given - New Bag 04/28/2017 100 mL/hr 04:07 CDT loperamide (IMODIUM A-D) capsule 2 mg Given 05/07/2017 2 mg 2 mg, Oral, NEEDED, Starting [place] 20:01 CDT 05/06/17 at 1640, Until Wed05/19/17 at 1620, Diarrhea, GIVE WITH EACH LOOSE STOOL; NOT TO EXCEED 16MG/24HRS Given 05/07/2017 2 mg 23:43 CDT Given 05/08/2017 2 mg 10:55 CDT magnesium sulfate 4 g/50 mL IVPB Given - New 05/15/2017 4 g 4 g, Intravenous, 50 mL, Administer over Bag 05:39 CDT 4 Hours, NEEDED, Starting 04/24/17 at 1552, Until 05/19/17 at 1620, Other..., See admin instructions, Do not replace magnesium if serum creatinine is > 2.0. If Serum Magnesium </=2.0 mg/dL, give magnesium sulfate 4 grams IV over 4 hours. Recheck level in AM. If magnesium level </=2.0 mg/dL replace per above and check magnesium level at 1600. If serum magnesium is still </=2.0 mg/dL give additional 4 grams of magnesium over 4 hours and recheck level with am labs. Given - New Bag 05/16/2017 4 g 04:53 CDT Given - New Bag 05/18/2017 4 g 06:44 CDT micafungin (MYCAMINE) 50 mg in sodium Given - New 05/10/2017 50 mg 105 mL/hr chloride 0.9% (NS) 105 mL IVPB Bag 15:49 CDT 50 mg, Intravenous, 105 mL, Administer over 60 Minutes, at 105 mL/hr, EVERY 24 HOURS, First dose on 04/24/17 at 0900, Until Discontinued, PROTECT FROM LIGHT Given - New Bag 05/11/2017 50 mg 105 mL/hr 15:04 CDT Given - New Bag 05/12/2017 50 mg 105 mL/hr 14:49 CDT midazolam (VERSED) injection 1 mg Given 04/25/2017 1 mg 1 mg, Intravenous, ONCE, 1 dose, Sun 13:33 CDT 04/25/17 at 1315, Please give to patient as pre procedure anxiolytic. midazolam (VERSED) injection 1-2 mg Given 04/26/2017 1 mg 1-2 mg, Intravenous, ONCE, 1 dose, Mon 16:54 CDT 04/26/17 at 1700 midazolam (VERSED) injection 1-2 mg Given 05/11/2017 1 mg 1-2 mg, Intravenous, ONCE, 1 dose, Tue 09:30 CDT 05/11/17 at 0900 midazolam (VERSED) injection Given 04/25/2017 1 mg INTRA-PROCEDURE MED, Starting Sun 13:56 CDT 04/25/17 at 1356, Until Discontinued midazolam (VERSED) injection Given 04/26/2017 1 mg INTRA-PROCEDURE MED, Starting Mon 17:00 CDT 04/26/17 at 1700, Until Discontinued Given 04/26/2017 1 mg 17:10 CDT midazolam (VERSED) injection Given 05/11/2017 1 mg INTRA-PROCEDURE MED, Starting Wed 09:38 CDT 05/11/17 at 0938, Until Tu05/11/17 at 0938 midazolam (VERSED) injection Given 05/11/2017 1 mg INTRA-PROCEDURE MED, Starting Wed 09:42 CDT 05/11/17 at 0942, Until Wed05/11/17 at 0942 midazolam (VERSED) injection Given 05/11/2017 1 mg INTRA-PROCEDURE MED, Starting Wed 09:44 CDT 05/11/17 at 0944, Until Wed05/11/17 at 0944 octreotide (SANDOSTATIN) injection 100 Given 04/24/2017 100 mcg Abdominal mcg 15:48 CDT Tissue 100 mcg, Subcutaneous, THREE TIMES DAILY, First dose on 04/24/17 at 1515, Until Discontinued, PROTECT FROM LIGHT Given 04/24/2017 100 mcg Abdomen:RLQ 20:20 CDT Given 04/25/2017 100 mcg Abdominal 08:21 CDT Tissue ondansetron (ZOFRAN) tablet 16 mg Given 05/03/2017 16 mg 16 mg, Oral, EVERY 24 HOURS, 8 doses, 12:49 CDT First dose on Wed04/28/17 at 1230, Last dose on Wed05/05/17 at 1230, Give 30 minutes prior to chemotherapy. Given 05/04/2017 16 mg 12:06 CDT Given 05/05/2017 16 mg 11:37 CDT oxybutynin XL (DITROPAN XL) tablet 10 mg Given 04/24/2017 10 mg 10 mg, Oral, DAILY, First dose on Sat 11:16 CDT 04/24/17 at 1215, Until Discontinued, Do not crush or chew Given 04/25/2017 10 mg 08:14 CDT perflutren lipid microspheres (DEFINITY) Given 04/24/2017 2 Diluted mL injection 1-20 Diluted mL 12:38 CDT 1-20 Diluted mL, Intravenous, ONCE IN MAC, 1 dose, 04/24/17 at 1230, NOTE: This is a HIGH ALERT Medication. polyethylene glycol 3350 (MIRALAX) Given 05/02/2017 17 g packet 17 g 09:02 CDT 17 g (1 packet), Oral, DAILY, First dose on 04/26/17 at 1015, Until Discontinued, 8.5 GRAMS=0.5 PACKET 17 GRAMS=1 PACKET 34 GRAMS=2 PACKETS Given 05/03/2017 17 g 09:15 CDT posaconazole EC (NOXAFIL) tablet 300 mg Given 05/13/2017 300 mg 300 mg, Oral, TWICE DAILY WITH MEALS, 2 12:24 CDT doses, First dose on Wed05/13/17 at 1200, Last dose on Wed05/13/17 at 1700 Given 05/13/2017 300 mg 17:12 CDT posaconazole EC (NOXAFIL) tablet 300 mg Given 05/17/2017 300 mg 300 mg, Oral, DAILY WITH BREAKFAST, 08:03 CDT First dose on Wed05/14/17 at 0800, Until Discontinued Given 05/18/2017 300 mg 08:04 CDT Given 05/19/2017 300 mg 08:10 CDT potassium chloride IVPB 10 mEq Given - New 04/24/2017 10 mEq 50 mL/hr 10 mEq, Intravenous, 50 mL, Administer Bag 16:55 CDT over 60 Minutes, NEEDED (SAND CONDITIONER FROM RX), Starting 04/24/17 at 1547, Until Wed04/26/17 at 1014, Other..., see admin instructions, HIGH GOAL Do not replace potassium chloride if serum creatinine is > 2.0. -For serum potassium 3.5 - 4 mEq/L, give KCI 40 mEq IV over 4 hours (10 mEq over 1 hr (50 mL/hr) x 4 doses) -For serum potassium < 3.5 mEq/L, give KCI 60 mEq IV over 6 hours (10 mEq over 1 hr (50 mL/hr) x 6 doses) and check K+ 30 minutes after completion. If serum potassium is still < 3.5 mEq/L, give an additional 40 mEq IV over 4 hours (10 mEq over 1 hr (50 mL/hr) x 4 doses) x 1 and NOTIFY PHSYCIAN/CHAY. NOTE: This is a HIGH ALERT Medication. Given - New Bag 04/24/2017 10 mEq 50 mL/hr 18:51 CDT Given - New Bag 04/24/2017 10 mEq 50 mL/hr 20:00 CDT potassium chloride IVPB 10 mEq Given - New 05/18/2017 10 mEq 50 mL/hr 10 mEq, Intravenous, 50 mL, Administer Bag 10:00 CDT over 60 Minutes, NEEDED (SAND CONDITIONER FROM RX), Starting Wed04/28/17 at 1115, Until Wed05/19/17 at 1620, Other..., see admin instructions, HIGH GOAL Do not replace potassium chloride if serum creatinine is > 2.0. -For serum potassium 3.5 - 4 mEq/L, give KCI 40 mEq IV over 4 hours (10 mEq over 1 hr (50 mL/hr) x 4 doses) -For serum potassium < 3.5 mEq/L, give KCI 60 mEq IV over 6 hours (10 mEq over 1 hr (50 mL/hr) x 6 doses) and check K+ 30 minutes after completion. If serum potassium is still < 3.5 mEq/L, give an additional 40 mEq IV over 4 hours (10 mEq over 1 hr (50 mL/hr) x 4 doses) x 1 and NOTIFY PHSYCIAN/CHAY. NOTE: This is a HIGH ALERT Medication. Given - New Bag 05/18/2017 10 mEq 50 mL/hr 11:00 CDT Given - New Bag 05/19/2017 10 mEq 50 mL/hr 05:11 CDT potassium chloride SR (K-DUR) tablet Given 05/01/2017 40 mEq 40-60 mEq 22:29 CDT 40-60 mEq, Oral, NEEDED (SAND CONDITIONER FROM RX), Starting Wed04/28/17 at 1115, Until Wed05/19/17 at 1620, Other..., see admin instructions, HIGH GOAL -For [...] distress or mucositis is present and NOTIFY PHYSICIAN/CHAY. Given 05/17/2017 40 mEq 08:03 CDT Given 05/19/2017 50 mEq 09:40 CDT rasburicase (ELITEK) 3 mg in sodium Given - New 04/24/2017 3 mg 100 mL/ hr chloride 0.9% (NS) 50 mL IVPB Bag 04:43 CDT 3 mg, Intravenous, 50 mL, Administer over 30 Minutes, ONCE, 1 dose, 04/24/17 at 0330, See Formulary link for Rasburicase Uric Acid Lab Specimen Handling Instructions senna (SENOKOT) tablet 1 tablet Given 05/02/2017 1 tablet 1 tablet, Oral, TWICE DAILY, First dose 20:58 CDT on 04/26/17 at 1015, Until Discontinued, Hold for loose stools Given 05/03/2017 1 tablet 09:14 CDT Given 05/10/2017 1 tablet 08:56 CDT sodium chloride 0.9 % infusion Given - 04/25/2017 100 mL/hr 1,000 mL, Intravenous, at 100 mL/hr, Bag 05:15 CDT CONTINUOUS, Starting [place] 04/25/17 at 0515, Until Wed04/26/17 at 0908 Given - New Bag 04/25/2017 100 mL/hr 23:47 CDT sodium chloride 0.9 % infusion Given - 04/25/2017 125 mL/hr 125 mL/hr INTRA-PROCEDURE MED(CONT), Starting [place] Bag 14:01 CDT 04/25/17 at 1401, Until Discontinued sodium chloride 0.9 % infusion Given - 05/05/2017 75 mL/hr 1,000 mL, Intravenous, at 75 mL/hr, Bag 15:02 CDT CONTINUOUS, Starting Wed04/28/17 at 1045, Until Wed05/07/17 at 0916, Continue until 24 hours after completion of chemotherapy Given - New Bag 05/06/2017 75 mL/hr 04:46 CDT Given - New Bag 05/07/2017 75 mL/hr 06:41 CDT sodium chloride 0.9 % infusion Given - 05/11/2017 500 mL 150 mL/ hr INTRA-PROCEDURE MED(CONT), Starting Wed Bag 09:30 CDT 05/11/17 at 0930, Until Wed05/11/17 at 0930 SODIUM CHLORIDE 0.9 % IV SOLP (Cabinet Given - 04/26/2017 250 mL 5 mL/hr Override) Bag 10:18 CDT NOW, 1 dose, [facility] 04/26/17 at 1015, Created by cabinet override SODIUM CHLORIDE 0.9 % IV SOLP (Cabinet Given - New 04/29/2017 10 mL Override) Bag 15:52 CDT NOW, 1 dose, [place] 04/29/17 at 1515, Created by cabinet override SODIUM CHLORIDE 0.9 % IV SOLP (Cabinet Given - New 05/01/2017 250 mL Override) Bag 06:59 CDT NOW, 1 dose, 05/01/17 at 0700, Created by cabinet override SODIUM CHLORIDE 0.9 % IV SOLP (Cabinet Given - New 05/03/2017 250 mL Override) Bag 04:30 CDT NOW, 1 dose, 05/03/17 at 0430, Created by cabinet override SODIUM CHLORIDE 0.9 % IV SOLP (Cabinet Given - New 05/05/2017 250 mL Override) Bag 06:32 CDT NOW, 1 dose, 05/05/17 at 0600, Created by cabinet override SODIUM CHLORIDE 0.9 % IV SOLP (Cabinet Given - New 05/09/2017 250 mL Override) Bag 05:01 CDT NOW, 1 dose, 05/09/17 at 0500, Created by cabinet override SODIUM CHLORIDE 0.9 % IV SOLP (Cabinet Given - New 05/10/2017 250 mL Override) Bag 05:49 CDT NOW, 1 dose, 05/10/17 at 0600, Created by cabinet override SODIUM CHLORIDE 0.9 % IV SOLP (Cabinet Given - New 05/11/2017 250 mL Override) Bag 03:23 CDT NOW, 1 dose, 05/11/17 at 0315, Created by cabinet override SODIUM CHLORIDE 0.9 % IV SOLP (Cabinet Given - New 05/11/2017 250 mL Override) Bag 04:37 CDT NOW, 1 dose, 05/11/17 at 0430, Created by cabinet override SODIUM CHLORIDE 0.9 % IV SOLP (Cabinet Given - New 05/12/2017 250 mL Override) Bag 04:11 CDT NOW, 1 dose, 05/12/17 at 0415, Created by cabinet override SODIUM CHLORIDE 0.9 % IV SOLP (Cabinet Given - New 05/13/2017 250 mL Override) Bag 05:56 CDT NOW, 1 dose, [place] 05/13/17 at 0600, Created by cabinet override SODIUM CHLORIDE 0.9 % IV SOLP (Cabinet Given - New 05/14/2017 250 mL Override) Bag 04:18 CDT NOW, 1 dose, 05/14/17 at 0430, Created by cabinet override SODIUM CHLORIDE 0.9 % IV SOLP (Cabinet Given - New 05/15/2017 250 mL Override) Bag 04:45 CDT NOW, 1 dose, 05/15/17 at 0445, Created by cabinet override SODIUM CHLORIDE 0.9 % IV SOLP (Cabinet Given - New 05/15/2017 250 mL Override) Bag 04:45 CDT NOW, 1 dose, 05/15/17 at 0445, Created by cabinet override SODIUM CHLORIDE 0.9 % IV SOLP (Cabinet Given - New 05/15/2017 250 mL Override) Bag 05:38 CDT NOW, 1 dose, 05/15/17 at 0545, Created by cabinet override SODIUM CHLORIDE 0.9 % IV SOLP (Cabinet Given - New 05/16/2017 250 mL Override) Bag 04:37 CDT NOW, 1 dose, 05/16/17 at 0445, Created by cabinet override SODIUM CHLORIDE 0.9 % IV SOLP (Cabinet Given - New 05/16/2017 250 mL Override) Bag 04:52 CDT NOW, 1 dose, 05/16/17 at 0500, Created by cabinet override SODIUM CHLORIDE 0.9 % IV SOLP (Cabinet Given - New 05/17/2017 250 mL Override) Bag 04:15 CDT NOW, 1 dose, 05/17/17 at 0415, Created by cabinet override SODIUM CHLORIDE 0.9 % IV SOLP (Cabinet Given - New 05/18/2017 250 mL Override) Bag 06:41 CDT NOW, 1 dose, 05/18/17 at 0615, Created by cabinet override SODIUM CHLORIDE 0.9 % IV SOLP (Cabinet Given - New 05/19/2017 250 mL Override) Bag 05:07 CDT NOW, 1 dose, Wed05/19/17 at 0500, Created by cabinet override sodium chloride 0.9% irrigation bottle Given 04/28/2017 SEE ADMIN INSTRUCTIONS, NEEDED, 14:31 CDT Starting 04/24/17 at 0344, Until Wed05/19/17 at 1620, Other..., oral mucositis, Oral swish and spit. vancomycin (VANCOCIN) 1,500 mg in Given - New 04/24/2017 1,500 mg 200 mL/hr dextrose 5% (D5W) IVPB Bag 06:48 CDT 1,500 mg, Intravenous, 300 mL, Administer over 90 Minutes, EVERY 24 HOURS, First dose on 04/24/17 at 0500, Until Discontinued, Note Pharmacokinetic Monitoring: Please record infusion start time (Action=Given) and stop time (Action=Completed) of dose when blood levels are drawn. in this encounter
--- OUTSIDE RECORDS SUMMARY | 2017-06-11 18:54 | XMS REPORT | Encounter Summary ---
Author Author [facility] Organization [facility] Address Unknown Phone Unavailable Care Team Providers Care Load Manager Name Role Phone PCP Unavailable Encounter Details Date Type Department Care Team Description 05/14/2017 Documentation [facility] [address] [place] [address] Social History Tobacco Use Types Packs/Day Years Used Date Never Smoker Smokeless Tobacco: Never Used Alcohol Use Drinks/Week oz/Week Comments No Sex Assigned at Date Recorded Not on file as of this encounter Functional Status Functional Status Response Date of Assessment Does the patient have a hearing impairment: No 04/24/2017 as of this encounter Progress Notes * Heide Bethea - 05/14/2017 12:20 PM CDT I was contacted by Ashlee here at that has Giselle's income and she sent it to me. I was missing her husbands income but she did not have it. I had to leave another voicemail to Arnold to send me his income without a return call back yet. I will reach out to him again beginning of next week one last time. This will be the 5th voicemail I have left him since 04/30 to get income but I have spoken to him twice. He is fully aware what I'm needing to proceed for copay asst. in this encounter Plan of Treatment Not on fileas of this encounter Visit Diagnoses Not on filein this encounter
--- OUTSIDE RECORDS SUMMARY | 2017-06-11 18:54 | XMS REPORT | Encounter Summary ---
Author Author [facility] Organization [facility] Address Unknown Phone Unavailable Care Team Providers Care Unmanned Equipment Operator Name Role Phone PCP Unavailable Encounter Details Date Type Department Care Team Description 05/10/2017 Orders Only ADMITTING Serina Bush MD [address] [place] [address] [facility] [address] [place] [address] [phone] Social History Tobacco Use Types Packs/Day Years Used Date Never Smoker Smokeless Tobacco: Never Used Alcohol Use Drinks/Week oz/Week Comments No Sex Assigned at Date Recorded Not on file as of this encounter Functional Status Functional Status Response Date of Assessment Does the patient have a hearing impairment: No 04/24/2017 as of this encounter Plan of Treatment Not on fileas of this encounter Visit Diagnoses Not on filein this encounter
--- OUTSIDE RECORDS SUMMARY | 2017-06-11 18:54 | XMS REPORT | Encounter Summary ---
Author Author [facility] Organization [facility] Address Unknown Phone Unavailable Care Team Providers Care Quote Clerk Name Role Phone PCP Unavailable Encounter Details Date Type Department Care Team Description 04/29/2017 Documentation [facility] Sherie Diaz, [facility] [facility] - BMT Exam [address] [place] [address] Social History Tobacco Use Types Packs/Day Years Used Date Never Smoker Smokeless Tobacco: Never Used Alcohol Use Drinks/Week oz/Week Comments No Sex Assigned at Date Recorded Not on file as of this encounter Functional Status Functional Status Response Date of Assessment Does the patient have a hearing impairment: No 04/24/2017 as of this encounter Progress Notes * Sherie Diaz, RN - 04/29/2017 10:54 AM CDT met with patient in her hospital room to explaine the process of HLA typing and donor search. Explained that the need for transplant in her case is currently unknown but that we will be getting more information about her disease in the next several days. Patient has 2 older female siblings on with a history of cancer aged 77 who we will not type. the other is 67yr who we can consider typing. patient also has 2 children. Will run prelimn MUD search when HLA is resulted and inform patient of results. Provided my contact information and the contact information for the donor coordinator also provided some educational materials about the transplant process, guidlines, and caregiver responsibilities. encouraged patient to contact me with any questions or concerns. in this encounter Plan of Treatment Not on fileas of this encounter Visit Diagnoses Not on filein this encounter
--- OUTSIDE RECORDS SUMMARY | 2017-06-11 18:54 | XMS REPORT | Encounter Summary ---
Author Author [facility] Organization [facility] Address Unknown Phone Unavailable Care Team Providers Care Filbert Grower Name Role Phone PCP Unavailable Encounter Details Date Type Department Care Team Description 05/06/2017 Documentation [facility] Sherie Diaz RN [facility] - [facility] Exam [address] [place] [address] Social History Tobacco Use Types Packs/Day Years [...]
--- OUTSIDE RECORDS SUMMARY | 2017-06-11 18:54 | XMS REPORT | Encounter Summary ---
Author Author [facility] Organization [facility] Address Unknown Phone Unavailable Care Team Providers Care Quality Assurance Engineer Name Role Phone PCP Unavailable Encounter Details Date Type Department Care Team Description 04/23/2017 Hospital [facility] Encounter Hospital Radiology [address] [place] [address] Social History Tobacco Use Types Packs/Day Years Used Date Never Assessed Sex Assigned at Date Recorded Not on file as of this encounter Medications at Time [...] hours as needed for Nausea or Vomiting. allopurinol (ZYLOPRIM) Take 100 mg by mouth 05/19/2017 100 mg tablet daily. Take with food. allopurinol (ZYLOPRIM) Take 300 mg by mouth 04/24/2017 300 mg tablet daily. Take with food. apixaban (ELIQUIS) 5 mg ON HOLD UNTIL COUNT 05/19/2017 06/06/2017 tablet RECOVERY apixaban (ELIQUIS) 5 mg Take 5 mg by mouth twice 05/19/2017 tablet daily. ascorbic acid (VITAMIN C) Take 500 mg by mouth 05/19/2017 500 mg tablet daily. atenolol (TENORMIN) 50 mg Take 50 mg by mouth twice 05/19/2017 tablet daily. CRANBERRY FRUIT EXTRACT Take 1 tablet by mouth at 05/19/2017 (CRANBERRY EXTRACT PO) bedtime daily. cyanocobalamin(+) Take 500 mcg by mouth 05/19/2017 (VITAMIN B-12) 500 mcg daily. tablet ergocalciferol (VITAMIN Take 1 capsule by mouth 06/03/2017 D-2) 50,000 unit capsule every 7 days. furosemide (LASIX) 40 mg Take 40 mg by mouth every 05/19/2017 tablet 48 hours. glimepiride (AMARYL) 1 mg Take 1 mg by mouth twice 04/24/2017 tablet daily. magnesium oxide (MAG-OX) Take 400 mg by mouth 05/19/2017 400 mg tablet daily. nitrofurantoin Take 100 mg by mouth 05/19/2017 monohyd/m-cryst daily. Take with food. (MACROBID) 100 mg capsule oxybutynin XL (DITROPAN Take 10 mg by mouth 05/19/2017 XL) 10 mg tablet daily. potassium chloride SR Take 10 mEq by mouth 05/19/2017 (K-DUR) 10 mEq tablet every 48 hours. Take with a meal and a full glass of water. sodium chloride PF 0.9% Inject 10 mL to area(s) 300 mL 3 05/19/2017 06/06/2017 0.9 % syringe as directed daily. as of this encounter Plan of Treatment Not on fileas of this encounter Visit Diagnoses Not on filein this encounter
--- OUTSIDE RECORDS SUMMARY | 2017-06-11 18:54 | XMS REPORT | Encounter Summary ---
Author Author [facility] Organization [facility] Address Unknown Phone Unavailable Care Team Providers Care Cardiovascular Technologist Name Role Phone PCP Unavailable Encounter Details Date Type Department Care Team Description 04/29/2017 Orders Only ADMITTING Bruno Duval MD [address] [facility] [place] [address] [address] [place] [address] [phone] Social History Tobacco Use Types Packs/Day Years [...]
--- OUTSIDE RECORDS SUMMARY | 2017-06-11 18:54 | XMS REPORT | Encounter Summary ---
Author Author [facility] Organization [facility] Address Unknown Phone Unavailable Care Team Providers Care Production Hand Name Role Phone PCP Unavailable Encounter Details Date Type Department Care Team Description 05/07/2017 Documentation [facility] [address] [facility] [place] [address] Social History Tobacco Use Types Packs/Day Years Used Date Never Smoker Smokeless Tobacco: Never Used Alcohol Use Drinks/Week oz/Week Comments No Sex Assigned at Date Recorded Not on file as of this encounter Functional Status Functional Status Response Date of Assessment Does the patient have a hearing impairment: No 04/24/2017 as of this encounter Progress Notes * [facility]ide Bethea - 05/07/2017 9:57 AM CDT Patient Giselle Khan does not have any rx insurance. Pharmacy will work on obtaining medication assistance and are currently waiting to receive income information. [facility] Patient Advocate in this encounter Plan of Treatment Not on fileas of this encounter Visit Diagnoses Not on filein this encounter
--- OUTSIDE RECORDS SUMMARY | 2017-06-11 18:54 | XMS REPORT | Encounter Summary ---
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) [address] [place], [place] [address] Phone: Encounter Details Date Type Department Care Team Description 04/26/2017 Orders Only [facility] Lyndon Liang DO Acute leukemia not having Cancer Center - BMT Exam [address] achieved remission (HCC) [address] (Primary Dx) [address] [place] [address] [place] [phone] Social History Tobacco Use Types Packs/Day Years Used Date Never Smoker Smokeless Tobacco: Never Used Alcohol Use Drinks/Week oz/Week Comments No Sex Assigned at Date Recorded Not on file as of this encounter Functional Status Functional Status Response Date of Assessment Does the patient have a hearing impairment: No 04/24/2017 as of this encounter Plan of Treatment Name Priority Associated Diagnoses Order Schedule AMB REFERRAL TO BMT PRE-TRANSPLANT Routine Acute leukemia not having Ordered: 04/26/2017 FINANCIAL COUNSELING achieved remission (HCC) as of this encounter Visit Diagnoses Diagnosis 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
--- OUTSIDE RECORDS SUMMARY | 2017-06-11 18:54 | XMS REPORT | Encounter Summary ---
Author Author [facility] Organization [facility] Address Unknown Phone Unavailable Care Team Providers Care Artillery Officer Name Role Phone PCP Unavailable Reason for Visit * Reason Comments Navigation Assessment Encounter Details Date Type Department Care Team Description 04/29/2017 Telephone [facility] Everton Grewal MD Navigation Assessment Cancer Center - [facility] Exam [address] [place] [address] [place] [address] [phone] Social History Tobacco Use Types Packs/Day Years Used Date Never Smoker Smokeless Tobacco: Never Used Alcohol Use Drinks/Week oz/Week Comments No Sex Assigned at Date Recorded Not on file as of this encounter Functional Status Functional Status Response Date of Assessment Does the patient have a hearing impairment: No 04/24/2017 as of this encounter Miscellaneous Notes * Telephone Encounter - Zita Hernandez RN - 04/29/2017 12:55 PM CDT Formatting of this note may be different from the original. Heme/BMT Navigation Intake Assessment Document Patient Name: Giselle Khan : 1960 Date of Referral: 05/18/2017 Diagnosis & Reason for Visit: Transplant/Treatment Options-AML [facility]-MR: [id number] APPOINTMENT: Future Appointments Date Time Provider Department Center 05/21/2017 7:30 AM Lacho Mckinley MD [facility] None 05/21/2017 8:30 AM BMT FINANCIAL COORD 3 [facility] None 05/21/2017 9:00 AM Devon Anglin [facility] None REFERRING PHYSICIAN: Wesley Garcia MD FACILITY: [facility] [place], [place] INSURANCE: Medicare Allergies: Contrast, NSAIDS, ciprofloxacin, levofloxacin, sulfamethoxazole, trimethroprim Family Hx: Mother- from kidney cancer, uterine cancer Father- from breast cancer Medical Hx: A-fib, chronic edema/swelling, HLD, HTN, neuropathy, kidney stones, renal failure, chronic UTI, diabetic, anxiety Surgical Hx: Right total knee replacement, right foot surgery, Social Hx: Denies alcohol use, never a smoker HPI: Patient presented to the ED at [facility] in [place], [place] 04/23/2017 with complaints of generalized weakness [...] population of neoplastic myeloid blasts (0.04%) CTYO: 46,XX 05/11/2017 Chemotherapy IT Cytarabine 05/11/2017 Pathology-CSF Diagnosis: Negative for malignant cells. 05/19/2017 Labs Hemoglobin 7.4 (L) Hematocrit 20.6 (L) Platelet Count 27 (L) White Blood Cells 1.4 (L) Neutrophils 34 (L) Absolute Neutrophil Count 0.50 (L) Lymphocytes 53 (H) Absolute Lymph Count 0.70 (L) Monocytes 13 (H) Absolute Monocyte Count 0.20 Eosinophils 0 Absolute Eosinophil Count 0.00 Absolute Basophil Count 0.00 Basophils 0 RBC 2.48 (L) MCV 83.3 MCH 29.7 MCHC 35.7 MPV 8.7 RDW 15.4 (H) Sodium 143 Potassium 3.4 (L) Chloride 111 (H) CO2 26 Anion Gap 6 Blood Urea Nitrogen 32 (H) Creatinine 0.93 eGFR Non >60 eGFR >60 Glucose 127 (H) Albumin 2.6 (L) Calcium 9.1 Location of Films: IN HOUSE Location of Pathology: IN HOUSE NEEDS Assessment: Genetic Counseling: Not Applicable Nutrition: Patient provided information on all available services Social Work/Financial: Patient provided information on available services Spiritual & Emotional: Patient provided information on available services Physical: Patient provided information on available services Communication: No needs identified Oncofertility - Females age 40 and under; Males age 50 and under : Not applicable in this encounter Plan of Treatment Not on fileas of this encounter Visit Diagnoses Not on filein this encounter
--- NOTE | 2017-06-11 18:55 | ED General ---
General Stated Complaint: BLOOD SUGAR LOW Source of Information: Patient Exam Limitations: No Limitations History of Present Illness Time Seen by Provider: 18:30 Initial Comments Here by EMS with report of low blood sugar. Patient has recently returned from after initiating therapy for leukemia. She was found to have leukemia here on 04/23/17 and sent to . She has been there twice since. She just started Rydapt recently. Blood sugar was 40 by EMS. One amp of D50 was given and her mentation improved. Apparently she was quite unresponsive when they initially evaluated her but she is mentating normally now. Denies recent fevers but does have intermittent hot flashes and chills. She states this is been going on since she was found to have leukemia and that is typical for her. Did have one episode of diarrhea after starting the new med. Denies dysuria. Does have some weakness but states that is typical. Denies breathing problems or cough. 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 SERVICE SPECIALIST IN CHARGE DOES NOT WANT HER TAKING NSAIDS (Non-Steroidal Anti-Inflamma (Unverified Allergy, Unknown, 05/16/16 ) EXTENSION SERVICE SPECIALIST IN CHARGE DOES NOT WANT HER TAKING ciprofloxacin (Verified Allergy, Unknown, 04/10/17) levofloxacin (Verified Allergy, Unknown, 04/10/17) sulfamethoxazole (Unverified Allergy, Unknown, 05/16/16) EXTENSION SERVICE SPECIALIST IN CHARGE DOES NOT WANT HER TAKING trimethoprim (Unverified Allergy, Unknown, 05/16/16) EXTENSION SERVICE SPECIALIST IN CHARGE DOES NOT WANT HER TAKING Home Medications Alprazolam 1 Mg Tablet, 1 MG PO TID, (Reported) Apixaban 5 Mg Tablet, 5 MG PO BID, (Reported) Ascorbic Acid 500 Mg Capsule.er, 500 MG PO DAILY, (Reported) Atenolol 50 Mg Tablet, 50 MG PO BID, (Reported) Cephalexin 500 Mg Tablet, 500 MG PO TID for 7 Days, #21 Ref 0 Prescribed by: REESE KIM on 10/25/16 1416 Cephalexin 500 Mg Tablet, 500 MG PO BID for 7 Days, #14 Ref 0 Prescribed by: REESE KIM on 10/25/16 1246 Cholecalciferol (Vitamin D3) 50,000 Unit Capsule, 50,000 UNIT PO Heard, (Reported) Cyanocobalamin (Vitamin B-12) 5,000 Mcg/1 Ml Drops, 0.33 ML SL DAILY, (Reported) Diltiazem HCl 240 Mg Cap.er.24h, 240 MG PO DAILY, (Reported) Docusate Sodium 100 Mg Capsule, 100 MG PO DAILY, (Reported) Folic Acid 0.4 Mg Tablet, 0.4 MG PO HS, (Reported) Furosemide 40 Mg Tablet, 40 MG PO every other day, (Reported) Glimepiride 4 Mg Tablet, 4 MG PO DAILY, (Reported) Glimepiride 4 Mg Tablet, 4 MG PO DAILY, (Reported) Magnesium Oxide 400 Mg Tablet, 400 MG PO DAILY, (Reported) Nitrofurantoin Monohyd/M-Cryst 100 Mg Capsule, 1 TAB PO BID, #20 Ref 0 Prescribed by: LOUISE DURBIN on 05/16/16 0149 Oxybutynin Chloride 10 Mg Tab.er.24, 10 MG PO DAILY, (Reported) Potassium Chloride 10 Meq Tablet.er, 10 MEQ PO every other day, (Reported) Tramadol HCl 50 Mg Tablet, 50 MG PO Q8H PRN for PAIN, #12 Prescribed by: THELMA MAR on 05/09/16 1535 Trimethoprim 100 Mg Tablet, 100 MG PO HS, (Reported) Constitutional: see HPI EENTM: no symptoms reported Respiratory: no symptoms reported, No cough, No short of breath Cardiovascular: no symptoms reported Gastrointestinal: No abdominal pain, diarrhea, No nausea, No vomiting Genitourinary: incontinence, No pain Musculoskeletal: joint pain (chronic knee problems bilaterally) Skin: no symptoms reported Psychiatric/Neurological: See HPI Hematologic/Lymphatic: See HPI All Other Systems Reviewed Negative Unless Noted: Yes Past Obdwrxu-Utbemw-Zsqcsw Hx Patient Social History Alcohol Use: Denies Use Recreational Drug Use: No Smoking Status: Former Smoker Former Smoker, Quit: Oct 17, 1976 Recent Foreign Travel: No Contact w/Someone Who Travel: No Recent Hopitalizations: No Immunizations Up To Date Tetanus Booster (TDap): More than 5yrs PED Vaccines UTD: No Seasonal Allergies Seasonal Allergies: No Surgeries History of Surgeries: Yes (RIGHT TOTAL KNEE REPLACEMENT 2009; RIGHT FOOT SURGERY 2010) Surgeries: Section, Joint Replacement, Orthopedic Respiratory History of Respiratory Disorde: No Currently Using CPAP: No Currently Using BIPAP: No Cardiovascular History of Cardiac Disorders: Yes Cardiac Disorders: Atrial Fibrillation, Chronic Edema/Swelling, High Cholesterol, Hypertension Neurological History of Neurological Disord: Yes Neurological Disorders: Neuropathy Reproductive System Hx Reproductive Disorders: Yes Sexually Transmitted Disease: No HIV/AIDS: No Female Reproductive Disorders: Denies [employer] History: Menopausal Genitourinary History of Genitourinary Disor: Yes Genitourinary Disorders: Kidney Stones, Renal Failure, UTI-Chronic Gastrointestinal History of Gastrointestinal Di: Yes (SPASTIC COLON) Musculoskeletal History of Musculoskeletal Dis: Yes (CHRONIC KNEE AND FOOT PAIN ) Musculoskeletal Disorders: Arthritis, Gout Endocrine History of Endocrine Disorders: Yes (OBESITY) Endocrine Disorders: Diabetes, Non-Insulin dep HEENT Loss of Vision: Denies Hearing Impairment: Denies Cancer History of Cancer: Yes Cancer: Leukemia Psychosocial History of Psychiatric Problem: Yes Behavioral Health Disorders: Anxiety Integumentary History of Skin or Integumenta: No Blood Transfusions History of Blood Disorders: No Adverse Reaction to a Blood Tr: No Reviewed Nursing Assessment Reviewed/Agree w Nursing PMH: Yes Family Medical History Family Medial History: Abdominal aortic aneurysm 19 FATHER, , Onset:60 years & older Diabetes mellitus 19 FATHER, , Onset:Unknown FH: breast cancer 19 MOTHER, Onset:40's - 50 FH: kidney cancer 19 MOTHER, Onset:Unknown FH: uterine cancer 19 MOTHER, Onset:Unknown Myocardial infarction 19 FATHER, , Onset:50's - 60 Physical Exam Vital Signs Vital Sign - Last 12Hours 06/11/17 18:23 Temp 96.5 Pulse 86 B/P (MAP) 150/98 Pulse Ox 98 O2 Delivery Room Air Capillary Refill : General Appearance: No Apparent Distress, WD/WN, Obese HEENT: PERRL/EOMI, Pharynx Normal Neck: Non Tender, Supple Respiratory: Lungs Clear, Normal Breath Sounds Cardiovascular: Regular Rate, Rhythm, No Murmur Gastrointestinal: Non Tender, Soft Back: Normal Inspection, No CVA Tenderness, No Vertebral Tenderness Extremity: Normal Inspection, Non Tender, No Calf Tenderness Neurologic/Psychiatric: Alert, Oriented x3 Skin: Normal Color, Warm/Dry Focused Exam Evaluation Lactate Level Laboratory Tests 06/11/17 18:45: Lactic Acid Level 2.07*H Lactic Acid Level Laboratory Tests Test 06/11/17 18:45 Lactic Acid Level 2.07 MMOL/L (0.50-2.00) *H Progress/Results/Core Measures Suspected Sepsis SIRS Temperature: Pulse: Respiratory Rate: Laboratory Tests 06/11/17 18:45: White Blood Count 0.3*L Blood Pressure / Mean: Laboratory Tests 06/11/17 18:45: Lactic Acid Level 2.07*H Laboratory Tests 06/11/17 18:45: Creatinine 0.64, Platelet Count 25*L, Total Bilirubin 1.1H Results/Orders Lab Results Laboratory Tests Test 06/11/17 18:45 06/11/17 18:46 Range/Units White Blood Count 0.3 *L 4.3-11.0 10^3/uL Red Blood Count 2.62 L 4.35-5.85 10^6/uL Hemoglobin 7.8 L 11.5-16.0 G/DL Hematocrit 24 L 35-52 % Mean Corpuscular Volume 91 80-99 FL Mean Corpuscular Hemoglobin 30 25-34 PG Mean Corpuscular Hemoglobin Concent 33 32-36 G/DL Red Cell Distribution Width 16.8 H 10.0-14.5 % Platelet Count 25 *L 130-400 10^3/uL Mean Platelet Volume 8.9 7.4-10.4 FL Neutrophils (%) (Auto) 28 L 42-75 % Lymphocytes (%) (Auto) 64 H 12-44 % Monocytes (%) (Auto) 4 0-12 % Eosinophils (%) (Auto) 4 0-10 % Basophils (%) (Auto) 0 0-10 % Neutrophils # (Auto) 0.1 L 1.8-7.8 X 10^3 Lymphocytes # (Auto) 0.2 L 1.0-4.0 X 10^3 Monocytes # (Auto) 0.0 0.0-1.0 X 10^3 Eosinophils # (Auto) 0.0 0.0-0.3 10^3/uL Basophils # (Auto) 0.0 0.0-0.1 10^3/uL Urine Color YELLOW Urine Clarity SLIGHTLY CLOUDY Urine pH 8 5-9 Urine Specific [place] 1.010 L 1.016-1.022 Urine Protein 1+ H NEGATIVE Urine Glucose (UA) NEGATIVE NEGATIVE Urine Ketones NEGATIVE NEGATIVE Urine Nitrite NEGATIVE NEGATIVE Urine Bilirubin NEGATIVE NEGATIVE Urine Urobilinogen NORMAL NORMAL MG/DL Urine Leukocyte Esterase NEGATIVE NEGATIVE Urine RBC (Auto) 5+ H NEGATIVE Urine RBC 25-50 H /HPF Urine WBC RARE /HPF Urine Squamous Epithelial Cells RARE /HPF Urine Crystals NONE /LPF Urine Bacteria NONE /HPF Urine Casts NONE /LPF Urine Mucus NEGATIVE /LPF Urine Culture Indicated NO Sodium Level 143 135-145 MMOL/L Potassium Level 4.0 3.6-5.0 MMOL/L Chloride Level 106 98-107 MMOL/L Carbon Dioxide Level 29 21-32 MMOL/L Anion Gap 8 5-14 MMOL/L Blood Urea Nitrogen 23 H 7-18 MG/DL Creatinine 0.64 0.60-1.30 MG/DL Estimat Glomerular Filtration Rate > 60 BUN/Creatinine Ratio 36 Glucose Level 91 70-105 MG/DL Lactic Acid Level 2.07 *H 0.50-2.00 MMOL/L Calcium Level 8.6 8.5-10.1 MG/DL Magnesium Level 1.5 L 1.8-2.4 MG/DL Total Bilirubin 1.1 H 0.1-1.0 MG/DL Aspartate Amino Transf (AST/SGOT) 35 H 5-34 U/L Alanine Aminotransferase (ALT/SGPT) 36 0-55 U/L Alkaline Phosphatase 67 40-136 U/L C-Reactive Protein High Sensitivity 5.57 H 0.00-0.50 MG/DL Total Protein 5.8 L 6.4-8.2 GM/DL Albumin 2.8 L 3.2-4.5 GM/DL Glucometer 212 H 70-110 MG/DL My Orders Orders - BALAJI VALLES MD Cbc With Automated Diff (06/11/17 18:34) Comprehensive Metabolic Panel (06/11/17 18:34) Ua Culture If Indicated (06/11/17 18:34) Ns Iv 500 Ml (Sodium Chloride 0.9%) (06/11/17 18:38) Chest 1 View, Ap/Pa Only (06/11/17 18:48) Lactic Acid Analyzer (06/11/17 18:48) Blood Culture (06/11/17 18:48) Hs C Reactive Protein (06/11/17 18:48) Magnesium (06/11/17 18:48) Medications Given in ED Current Medications Medications Dose Ordered Sig/Raoul Route Start Time Stop Time Status Last Admin Dose Admin Sodium Chloride 500 ml @ 0 mls/hr Q0M ONCE IV 06/11/17 18:38 06/11/17 18:39 DC 06/11/17 19:21 100 MLS/HR Vital Signs/I&O Vital Sign - Last 12Hours 06/11/17 18:23 Temp 96.5 Pulse 86 B/P (MAP) 150/98 Pulse Ox 98 O2 Delivery Room Air Capillary Refill : Progress Note : Progress Note Seen and evaluated. Patient has a central line right subclavian. This was accessed by EMS to give the D50. We will continue access and initiate evaluation of labs, blood cultures, lactic acid and start normal saline 500 mL bolus. We will check urine and chest x-ray. Patient does have a history of leukemia and is currently on chemotherapy therapeutics. Monitor patient. 2000 : I have reviewed the labs and discussed the case with the on-call oncologist, Dr. Arias. He is okay with current lab values. Patient is on prophylactic acyclovir. Consideration for prophylactic antibiotic was given and patient found to be on cefuroxime. We will continue that. Overall safe at this point to go home. Blood cultures are pending. I did discuss with the patient about following her daily temperatures and return precautions. She has appointment on Wednesday for recheck labs and will follow-up in the cancer clinic as needed. Discharged home with return precautions. Patient and family verbalize understanding instructions and agreement with plan. We will give diet at this point while goes home to get clothes for her so that she can go home safely. Diagnostic Imaging Diagonstic Imaging: Xray Plain Films/CT/US/NM/MRI: chest Comments VIA [facility]. [place], [place] NAME: DANK MORAES [facility] REC#: [id number] PT STATUS: REG ER : 1960 PHYSICIAN: BALAJI VALLES MD ADMIT DATE: 06/11/17/ER Draft Date of Exam:06/11/17 CHEST 1 VIEW, AP/PA ONLY INDICATION: Hypoglycemia. COMPARISON: 04/23/2017 FINDINGS: Single frontal radiographic view of the chest was obtained and demonstrates interval improved cardiomegaly. Pulmonary vasculature is within normal limits. Small amount of fluid is noted within the right minor fissure. Otherwise, lungs are clear. There is no large effusion on the left. No pneumothorax is seen on either side. Indwelling right internal jugular central venous catheter is identified with tip extending into the right atrium. Bony structures show no gross acute abnormalities. IMPRESSION: 1. Improved cardiomegaly. 2. Small right effusion. Dictated on workstation # [id number] Dict: 06/11/171918 Trans: 06/11/171921 [id number] Interpreted by: BULL CRAVEN MD Electronically signed by: Departure Impression Impression: Primary Impression: Acute leukemia Qualified Codes: C95.01 - Acute leukemia of unspecified cell type, in remission Additional Impressions: Hypoglycemia Pancytopenia Disposition: HOME, SELF-CARE Condition: Stable Departure-Patient Inst. Decision time for Depature: 20:02 Referrals: VERONICA ROQUE MD (PCP/Family) Primary Care Physician Patient Instructions: HYPOGLYCEMIA, Leukemia, Adult (DC) Add. Discharge Instructions: Continue home medications as directed. Ensure that you eat meals and snacks daily and monitor your blood sugar several times daily. You should check her temperature daily and return for any findings of fever. Follow-up in [place] on Wednesday for blood draws and recheck as needed. Return for worse pain, fever, vomiting, weakness, breathing problems or other concerns as needed. BALAJI VALLES MD Jun 11, 2017 18:55
[2017-06-11 19:09] LABS: BASOPHILS % (AUTO) 0 % (0-10); EOSINOPHILS % (AUTO) 4 % (0-10); LYMPHOCYTES # (AUTO) 0.2 X 10^3 (1.0-4.0); LYMPHOCYTES % (AUTO) 64 % (12-44); MEAN CORPUSCULAR HEMOGLOBIN 30 PG (25-34); MEAN CORPUSCULAR HGB CONC 33 G/DL (32-36); MEAN CORPUSCULAR VOLUME 91 FL (80-99); MEAN PLATELET VOLUME 8.9 FL (7.4-10.4); MONOCYTES % (AUTO) 4 % (0-12); NEUTROPHILS # (AUTO) 0.1 X 10^3 (1.8-7.8); NEUTROPHILS % (AUTO) 28 % (42-75); RED BLOOD COUNT 2.62 10^6/uL (4.35-5.85); RED CELL DISTRIBUTION WIDTH 16.8 % (10.0-14.5)
[2017-06-11 19:10] LABS: BILIRUBIN,URINE NEGATIVE (NEGATIVE); KETONES,URINE NEGATIVE (NEGATIVE); LEUKOCYTE ESTERASE ,URINE NEGATIVE (NEGATIVE); NITRITE,URINE NEGATIVE (NEGATIVE); PH,URINE 8 (5-9); PROTEIN,URINE 1+ (NEGATIVE); UROBILINOGEN,URINE NORMAL (NORMAL); WHITE BLOOD COUNT 0.3 10^3/uL (4.3-11.0)
[2017-06-11 19:11] LABS: PLATELET COUNT 25 10^3/uL (130-400)
[2017-06-11 19:17] LABS: SQUAMOUS EPITHELIAL CELL,UR RARE /HPF; WBC,URINE RARE /HPF
--- NOTE | 2017-06-11 19:22 | Diagnostic Imaging Report ---
INDICATION: Hypoglycemia. COMPARISON: 04/23/2017 FINDINGS: Single frontal radiographic view of the chest was obtained and demonstrates interval improved cardiomegaly. Pulmonary vasculature is within normal limits. Small amount of fluid is noted within the right minor fissure. Otherwise, lungs are clear. There is no large effusion on the left. No pneumothorax is seen on either side. Indwelling right internal jugular central venous catheter is identified with tip extending into the right atrium. Bony structures show no gross acute abnormalities. IMPRESSION: 1. Improved cardiomegaly. 2. Small right effusion. Dictated by: Dictated on workstation # [id number]
[2017-06-11 19:23] LABS: ALANINE AMINOTRANSFERASE 36 U/L (0-55); ALBUMIN 2.8 GM/DL (3.2-4.5); ANION GAP 8 MMOL/L (5-14); ASPARTATE AMINO TRANSFERASE 35 U/L (5-34); BILIRUBIN,TOTAL 1.1 MG/DL (0.1-1.0); BLOOD UREA NITROGEN 23 MG/DL (7-18); BUN/CREATININE RATIO 36; CALCIUM 8.6 MG/DL (8.5-10.1); CARBON DIOXIDE 29 MMOL/L (21-32); CHLORIDE 106 MMOL/L (98-107); CREATININE SERUM 0.64 MG/DL (0.60-1.30); GFR ESTIMATED > 60; GLUCOSE 91 MG/DL (70-105); MAGNESIUM 1.5 MG/DL (1.8-2.4); SODIUM 143 MMOL/L (135-145); TOTAL PROTEIN 5.8 GM/DL (6.4-8.2); hs C REACTIVE PROTEIN 5.57 MG/DL (0.00-0.50)
[2017-06-11 21:37] VITALS: BP 142/92
== END 2017-06-11 21:37 | disposition home or self-care (01) ==
LOC: EDUNIT# 18:23 → ER 18:24
DX: E11.649 Type 2 diabetes mellitus with hypoglycemia without coma (principal); C95.00 Acute leukemia of unspecified cell type not having achieved remission; E11.40 Type 2 diabetes mellitus with diabetic neuropathy, unspecified; D61.818 Other pancytopenia; F41.9 Anxiety disorder, unspecified; M06.9 Rheumatoid arthritis, unspecified; I48.91 Unspecified atrial fibrillation; E78.00 Pure hypercholesterolemia, unspecified; I10 Essential (primary) hypertension; E66.9 Obesity, unspecified; Z87.442 Personal history of urinary calculi; Z96.651 Presence of right artificial knee joint; Z87.59 Personal history of other complications of pregnancy, childbirth and the puerperium; Z79.84 Long term (current) use of oral hypoglycemic drugs; Z87.891 Personal history of nicotine dependence; Z80.51 Family history of malignant neoplasm of kidney
CPT/HCPCS: 36415; 71010; 80053; 81000; 82962; 83605; 83735; 85025; 86141; 87040; 87186; 99284